=== PATIENT | male | born 1955 | race Caucasian/White ===

== ENCOUNTER → 2016-10-15 | Outpatient (REF) | payer BC, OTHER ==
[~2016-10-15] MED LIST: /TAMS4CA PO; ADULCHW2 PO; ASPI1TAB PO; ASPI81TA45 PO; ATOR40TA PO; AUGM875T27 PO; B-12100T2 PO; BACT800T5 PO; CALC1TAB31 PO; CALC250T8 PO; CALC750T PO; CALCCAP PO; CINN500C9 PO; CLAR10CA3 PO; CLOT1CRE71 TOP; COLA50CA3 PO; CRAN500C5 PO; CRES20TA PO; D 50CAP PO; DOXY100T16 PO; DOXY75CA3 PO; ENAL10TA2 PO; FERR324T12 PO; FINA5TAB2 PO; FLUT50SP; FLUTISP; FURO40TA2 PO; GEMF600T PO; GLUC1TAB PO; GLUC500C98 PO; GLUC500T53 PO; KLOR1TAB69 PO; LASI40TA PO; LEVO175T PO; LEVO175T2 PO; LIPI20TA PO; LISI2.5T3 PO; LORA10TA2 PO; METO-346 PO; METO50TA2 PO; MULTCHW13 PO; MULTLIQ7 PO; MULTTAB35 PO; NITR4TASL SL; NITROQUICK SL; OMEG12006 PO; PANT40TA2 PO; PERCOCET PO; PLAV75TA38 PO; POTA10CA PO; PRAD150C PO; PRAV20TA2 PO; PROSCAR PO; SILV1CRE19 TOP; TAMS0.4C2 PO; VITA100T20 PO; VITA500T53 PO; [UNRECOGNIZED DRUG - CODE] PO; vantin PO
== END ==
LOC: M SMT 16:48
PROVIDERS: ATTEND Nurse Practitioner Women's Health
DX: Z87.448 Personal history of other diseases of urinary system (principal)

== ENCOUNTER → 2017-01-07 | Outpatient (REF) | payer BC, OTHER | LOC: M SMT 13:04 | PROVIDERS: ATTEND Nurse Practitioner Family | DX: N39.0 Urinary tract infection, site not specified (principal) ==

== ENCOUNTER → 2017-02-25 | Day surgery (SDC) | payer BC, OTHER ==
[~2017-02-25] VITALS: Ht 190.5 cm; Wt 181.4 kg
[~2017-02-25] MED LIST changes: +AMIO200T37 PO; +ASPIRIN 81 MG CHEW TABLET As Ordered ONE; +ASPIRIN 81 MG CHEW TABLET PO ONE; +CRAN500C2 PO; +DIGO0.127 PO; +FISH1200 PO; +FLOM5CAP PO; +FLON1SPR; +LIDOCAINE 2% INJ 100 MG/5 ML SDV (FOR ANES.) As Ordered ONE; +LR 1,000 ML IV SCH; +METO75TA PO; +MIDAZOLAM INJ 2 MG/2 ML VIAL (J2250) As Ordered ONE; +ONDANSETRON 4MG/2ML VIAL (J2405) As Ordered ONE; +ONDANSETRON 4MG/2ML VIAL (J2405) IV PRN; +PERCOCET 5MG/325MG TAB PO PRN; +PROPOFOL 200 MG/20 ML VIAL As Ordered ONE; +ROCURONIUM BROMIDE 50 MG/5 ML VIAL As Ordered ONE; +SPIR25TA2 PO; +SUCCINYLCHOLINE 100 MG/5 ML SYRINGE (J0330) As Ordered ONE; +dexameTHASONE 4 MG/ML 1ML VIAL (J1100) As Ordered ONE; +ePHEDrine SULFATE 25 MG/5 ML(5MG/ML) SYRINGE As Ordered ONE; +fentaNYL 100 MCG/2 ML INJECTION (J3010) As Ordered ONE; +fentaNYL 100 MCG/2 ML INJECTION (J3010) IV PRN
[2017-02-25 14:30] VITALS: BP 140/67
--- NOTE | 2017-02-26 08:39 | RO ---
DATE OF PROCEDURE: 02/25/2017 PREOPERATIVE DIAGNOSIS: Lower urinary tract symptoms. POSTOPERATIVE DIAGNOSIS: Urethral meatus stenosis plus mild benign prostatic hyperplasia. PROCEDURE: Rigid cystoscopy plus urethral dilatation SURGEON: Rufus Abdalla MD NIGHT PATROL INSPECTOR: None. ANESTHESIA: General. COMPLICATIONS: None. ESTIMATED BLOOD LOSS: N/A. HISTORY OF PRESENT ILLNESS: This is a 61-year-old male patient that has severe lower urinary tract symptoms. The patient has morbid obesity. The patient has consented for a rigid cystoscopy under general anesthesia. DESCRIPTION OF PROCEDURE: With the patient under general anesthesia in supine modified low lithotomy position, after prepping and draping the area of concern which included the entire genitalia and abdomen, we started by introducing a #21 Thai cystoscope with a 30 degree lens. The urethral meatus was very tight and for that reason we could not pass the cystoscope. We then proceeded to dilate the urethra with [place] sounds. After dilating the urethra with Esther sounds to 30 Charriere, we passed the cystoscope very easily. The penile urethra, bulbar urethra and membranous urethra were totally normal and the prostatic urethra had lateral lobes touching, no middle lobe. You could see the verumontanum also without any abnormalities. The bladder was seen and there was no diverticulum and there were no trabeculations. Both ureteral orifices were secreting clear urine. We did a formal cystoscopy with a 70 degree and 30 degree. There was no tumors, stones or foreign objects. We then proceeded to empty the bladder and then did a retrograde cystoscopy by removing the cystoscope. There were no lesions in the urethra. PLAN: The patient will actively go home today. He will followup with [facility] urology center in about three weeks. The patient has a urethral meatus stenosis and a mild BPH. We can treat him with medical therapy only and be sure that his meatal stenosis does not recur. In general, the surgery procedure was a urethral dilatation plus rigid cystoscopy. ANAYA
== END ==
LOC: M SDC 09:23
PROVIDERS: ATTEND Urology
DX: N35.9 Urethral stricture, unspecified (principal); N40.1 Benign prostatic hyperplasia with lower urinary tract symptoms; E66.01 Morbid (severe) obesity due to excess calories; I10 Essential (primary) hypertension; I50.42 Chronic combined systolic (congestive) and diastolic (congestive) heart failure; I25.10 Atherosclerotic heart disease of native coronary artery without angina pectoris; Z95.5 Presence of coronary angioplasty implant and graft; I48.91 Unspecified atrial fibrillation; I25.2 Old myocardial infarction; G47.33 Obstructive sleep apnea (adult) (pediatric); E78.5 Hyperlipidemia, unspecified; E11.9 Type 2 diabetes mellitus without complications; E03.9 Hypothyroidism, unspecified; Z95.0 Presence of cardiac pacemaker; Z79.899 Other long term (current) drug therapy; Z79.01 Long term (current) use of anticoagulants; Z79.82 Long term (current) use of aspirin; Z79.02 Long term (current) use of antithrombotics/antiplatelets; Z88.8 Allergy status to other drugs, medicaments and biological substances; Z98.84 Bariatric surgery status; Z87.891 Personal history of nicotine dependence
CPT/HCPCS: 36415; 52281; 86850; 86900; 86901; J0330; J0690; J1100; J2250; J2405; J3010

== ENCOUNTER → 2017-03-04 | Outpatient (REF) | payer BC, OTHER ==
[~2017-03-04] MED LIST changes: -ASPIRIN 81 MG CHEW TABLET As Ordered ONE; -ASPIRIN 81 MG CHEW TABLET PO ONE; -LIDOCAINE 2% INJ 100 MG/5 ML SDV (FOR ANES.) As Ordered ONE; -LR 1,000 ML IV SCH; -MIDAZOLAM INJ 2 MG/2 ML VIAL (J2250) As Ordered ONE; -ONDANSETRON 4MG/2ML VIAL (J2405) As Ordered ONE; -ONDANSETRON 4MG/2ML VIAL (J2405) IV PRN; -PERCOCET 5MG/325MG TAB PO PRN; -PROPOFOL 200 MG/20 ML VIAL As Ordered ONE; -ROCURONIUM BROMIDE 50 MG/5 ML VIAL As Ordered ONE; -SUCCINYLCHOLINE 100 MG/5 ML SYRINGE (J0330) As Ordered ONE; -dexameTHASONE 4 MG/ML 1ML VIAL (J1100) As Ordered ONE; -ePHEDrine SULFATE 25 MG/5 ML(5MG/ML) SYRINGE As Ordered ONE; -fentaNYL 100 MCG/2 ML INJECTION (J3010) As Ordered ONE; -fentaNYL 100 MCG/2 ML INJECTION (J3010) IV PRN
== END ==
LOC: M SMT 13:18
PROVIDERS: ATTEND Nurse Practitioner Women's Health
DX: N35.9 Urethral stricture, unspecified (principal)

== ENCOUNTER 2017-04-20 04:08 | Inpatient (IN) | payer BC, OTHER ==
[~2017-04-20] VITALS: Ht 190.5 cm; Wt 193.5 kg
[~2017-04-20 04:08] MED LIST changes: +CALC1TAB11 PO; -CALC250T8 PO; +METO50TA7 PO; -MULTCHW13 PO; +MULTCHW14 PO; +PLAV1TAB2 PO; -PLAV75TA38 PO; -SILV1CRE19 TOP; +SILV1CRE60 TOP
[2017-04-20] MEDS ORDERED: ACETAMINOPHEN 325 MG TAB PO ONE (07:00)
[2017-04-20] MEDS ORDERED: NS 1,000 ML IV ONE (07:00)
[2017-04-20] MEDS ORDERED: CEFTAROLINE FOSAMIL 600 MG in D5W MINI-BAG PLUS 50 ML IV ONE (07:00)
[2017-04-20 07:38] LABS: ADD MANUAL DIFFER YES; MEAN CORPUSCULAR HEMOGLOBIN 30.8 pg (27.0-33.0); MEAN CORPUSCULAR HGB CONC 34.5 g/dl (32.0-36.5); MEAN CORPUSCULAR VOLUME 89.4 fl (80.0-96.0); PLATELET COUNT, AUTOMATED 185 k/mm3 (150-450); RED CELL DISTRIBUTION WIDTH 13.6 % (11.5-14.5); WHITE BLOOD COUNT 27.9 K/mm3 (4.0-10.0)
--- NOTE | 2017-04-20 07:49 | REP ---
Right lower extremity deep vein duplex ultrasound: The deep veins demonstrate normal compression, normal Doppler color flow and normal Doppler waveforms with respiration augmentation at multiple levels from the popliteal vein to the common femoral vein. Impression: There is no deep vein thrombus. Signed by Minesh Garcia MD 04/20/2017 07:41 A
[2017-04-20 08:04] LABS: ANISOCYTOSIS 1+; BANDS 15 % (< 11)
[2017-04-20 08:06] LABS: ALBUMIN 3.6 GM/DL (3.2-5.2); ALBUMIN/GLOBULIN RATIO 1.24 (1.00-1.93); ALKALINE PHOSPHATASE 73 U/L (45-117); ALT/SGPT 42 U/L (12-78); ANION GAP 8 MEQ/L (8-16); AST/SGOT 29 U/L (15-37); BILIRUBIN,DIRECT 0.3 MG/DL (0.0-0.2); BILIRUBIN,TOTAL 0.9 MG/DL (0.2-1.0); BLOOD UREA NITROGEN 22 MG/DL (7-18); CALCIUM LEVEL 8.7 MG/DL (8.8-10.2); CARBON DIOXIDE LEVEL 25 MEQ/L (21-32); CHLORIDE LEVEL 101 MEQ/L (98-107); CREATININE FOR GFR 1.12 MG/DL (0.70-1.30); DIGOXIN LEVEL 0.7 NG/ML (0.5-2.0); GLOMERULAR FILTRATION RATE > 60.0 (>49); GLUCOSE, FASTING 118 MG/DL (80-110); POTASSIUM SERUM 3.8 MEQ/L (3.5-5.1); SODIUM LEVEL 134 MEQ/L (136-145); TOTAL PROTEIN 6.5 GM/DL (6.4-8.2)
[2017-04-20] MEDS: NS 1,000 ML IV SCH (08:33)
[2017-04-20] MEDS ORDERED: PERCOCET 5MG/325MG TAB PO PRN (08:45)
[2017-04-20] MEDS ORDERED: ONDANSETRON 4 MG TAB (S0181) PO PRN (08:45)
[2017-04-20] MEDS ORDERED: ONDANSETRON 4MG/2ML VIAL (J2405) IV PRN (08:45)
[2017-04-20] MEDS ORDERED: D 501TAB PO (09:02)
[2017-04-20] MEDS ORDERED: DIGO0.12 PO (09:21)
[2017-04-20] MEDS ORDERED: DOXY-278 PO (09:24)
[2017-04-20] MEDS ORDERED: BECA1GEL TOP (09:34)
[2017-04-20] MEDS: ACETAMINOPHEN TAB 650MG DOSE (2X325MG) PO PRN ×2 (12:07→16:22)
[2017-04-20 14:15] VITALS: BP 129/59
--- NOTE | 2017-04-20 14:28 | PHACANCOPD ---
PHARMACY VANCOMYCIN DOSING Pt Demographics Demographics Patient Age:62 , Weight:181.820 , Gender: male Adjusted Body Weight Date: 04/20/17, Adjusted Body Weight: Kg Events Past 24 Hours Events Past 24 Hours: YES: Fever, Elevation in WBC, Pending Diagnostics Vancomycin Vancomycin indication: CELLULITIS Vancomycin Target Ranges: 10-20 mcg/ml Vancomycin Load Y/N: Yes Load Dose Date Time Vancomycin Load Dose: 2G Date: 04/20/17 Time: 2000 Vancomycin Dose Date: 04/20/17. Current Vancomycin Dose: Intermittent Dosing?: No Labs Labs Item Value Date Time White Blood Count 27.9 K/mm3 H 04/20/17 0717 Band Neutrophils 15 % H 04/20/17 0717 Creatinine 1.12 MG/DL 04/20/17 0717 Lactic Acid Level 2.1 MMOL/L *H 04/20/17 0717 Lactic Acid Followup at 4 Hours 2.4 MMOL/L *H 04/20/17 1210 C-Reactive Protein, Quantitative 2.10 MG/DL H 04/20/17 0717 Micro Microbiology 04/20/17 Blood Culture, Received Pending 04/20/17 Blood Culture, Received Pending 04/20/17 Urine Culture, Received Pending Creatinine Clearance Date:04/20/17. Estimated Creatinine Clearance: [~79.6ml/min]. Pending Labs Vancomycin trough scheduled 04/22/17 @ 1100 Assessment and Plan Maintaining Current Dose?: Yes Reason for dose change: No Dose Change Pharmacist Note Pharmacist Note Date: 04/20/17. Pharmacist note: Day #1 empiric zosyn/vancomycin tx initiated with a 2g loading dose followed by a maintenance regimen of 1g IV Q8H for the treatment of a right leg cellulitis - aiming for a goal trough of 10-20mcg/ml. WBC, bands, CRP, and temperature are all currently elevated. The patient has a hx of cellulitis, and had a left foot culture which grew proteus sensitive to zosyn back in December 2016. No PMH of MRSA, but the patient does have a PMH of vanco use here at [facility] back in May of 2014. Blood and urine cultures are currently pending. A vancomycin trough has been scheduled for 04/22/17 @ 1100. We will continue to monitor and make adjustments if needed. JADIEL COLLINS [facility] Apr 20, 2017 14:28
--- NOTE | 2017-04-20 15:16 | HPEPDOC ---
Medical History and Physical Date of Admission Apr 20, 2017 at 08:32 History and Physical HISTORY AND PHYSICAL Date of admission: 04/20/2017 PCP: Dr. 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 He states that he has had trouble with repeat episodes of lower extremity cellulitis. He states that he has been on oral doxycycline for approximately the last 10-12 days for left lower extremity cellulitis. He states that he feels like his left lower extremity has pretty much resolved, and he has not even finished the course yet of doxycycline that he was prescribed. However, he states that last night, he began to feel chills, and this morning, when he woke up, his right lower extremity was red. He states that he has a small dog that often scratches his legs when it comes up to greet him. He states that this all came on very quickly. 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 He states he only drinks an occasional alcoholic drink, usually around the holidays. He denies any current or past drug use. Allergies: No known drug allergies Review of systems: General: Positive for fever and chills Eyes: Negative for vision changes and ocular discharge ENT: Negative for sore throat and nose bleed Cardiovascular: Negative for chest pain and palpitations Respiratory: Negative for cough and shortness of breath GI: Negative for nausea, vomiting, diarrhea, constipation Musculoskeletal: Negative for neck and back pain Skin: Positive for erythema on the right lower extremity on the medial aspect of the knee and extending both distally and proximally Neuro: Positive for headache, dizziness, as well as chronic bilateral numbness and tingling of his feet Psych: Negative for depression and suicidal ideation Endocrine: Negative for polyuria : Negative for dysuria Heme: Positive for chronic bruising. Negative for bleeding Home meds: See below Physical exam: Vital signs: Vital Sign - Last 24 Hours 04/20/17 04/20/17 04/20/17 04/20/17 04:37 05:32 06:39 07:53 Temp 102.0 103.0 102.0 Pulse 97 Resp 20 B/P (MAP) 157/68 (97) Pulse Ox 93 O2 Delivery Room Air 04/20/17 04/20/17 04/20/17 04/20/17 10:10 10:42 12:06 14:09 Temp 99.6 99.5 99.8 Pulse 69 75 Resp 18 18 B/P (MAP) 108/57 (74) 96/54 (68) Pulse Ox 99 98 O2 Delivery Room Air Room Air 04/20/17 14:15 Temp 99.8 Pulse 74 Resp 20 B/P (MAP) 129/59 (82) Pulse Ox 96 O2 Delivery Room Air Gen.: awake, alert, no acute distress, obese Eyes: Extraocular movements intact, normal sclera ENT: Moist mucous membranes Cardiovascular: RRR, no murmurs rubs or gallops Lungs: clear to auscultation bilaterally, no rales, rhonchi, or wheeze Abdomen: Soft, NT/ND, normal BS Musculoskeletal: normal range of motion Extremities: pedal pulses intact; no erythema of LLE; RLE has erythema and swelling on medial aspect of knee joint, extending both distally and proximally Neuro: alert and oriented 3, normal speech, no focal deficits Psych: Normal mood with congruent affect Labs and radiology: See below BUN 22, creatinine 1.12 lactate 2.1 WBC 27.9 CRP 2.1 Blood cultures pending Right lower extremity Doppler shows no evidence of DVT Assessment and plan: 62-year-old male with recurrent cellulitis of bilateral lower extremities, chronic venous stasis the bilateral lower extremities, chronic atrial fibrillation, coronary artery disease with history of ND status post CABG and PCI, hyperlipidemia, morbid obesity status post gastric bypass surgery, LENA on CPAP, hypothyroidism, BPH, 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 1. Right lower extremity cellulitis. Patient is febrile with an elevated white count and significant exam findings. He has received Teflaro in the emergency department, and we'll continue him on vancomycin and Zosyn. Blood cultures are already pending. His initial lactate is elevated, and we will repeat this. We will place him on some IV fluids, however, given his significant heart failure, we will be quite gentle. Stop home doxycycline 2. Acute kidney injury: The patient's BUN and creatinine are elevated, I suspect that this is secondary to his infection. We will hold his home Lasix, LAZ inhibitor, spironolactone, we'll start him on very gentle IV fluids. We'll continue to monitor his creatinine. 3. Chronic A. fib: Patient is currently rate controlled. We'll continue his home amiodarone, digoxin, beta esau, and Pradaxa. 4. Coronary artery disease with history of ND status post CABG and PCI, hyperlipidemia: The patient currently denies any chest pain. Continue home beta esau, aspirin, statin. 5. Hypothyroidism: Continue home Synthroid. 6. BPH: Continue home Flomax and Proscar. 7. Mixed chronic CHF status post AICD placement: Patient has a history of an ejection fraction of 35 percent and is now status post defibrillator. He also has a history of diastolic dysfunction, as well as chronic right-sided heart failure. Given his infection and AK I, we are currently holding his home Lasix, LAZ inhibitor, spironolactone. He is also on some very gentle IV fluids, which we'll have to monitor closely. We will also continue him on the beta esau. He is currently euvolemic. DVT prophylaxis: Pradaxa Dispo: admit as an inpatient to the service of Dr. Eliane Bah; Dr. Valdivia will begin following the patient at 7 AM tomorrow morning CODE STATUS: Full Code Vital Signs Vital Signs Date Time Temp Pulse Resp B/P (MAP) Pulse Ox O2 Delivery O2 Flow Rate FiO2 04/20/17 14:15 99.8 74 20 129/59 (82) 96 Room Air Laboratory Data Labs 24H Laboratory Tests 2 04/20/17 07:17: Neutrophils 78H, Band Neutrophils 15H, Lymphocytes (Manual) 4L, Monocytes ( Manual) 3, Platelet Estimate NORMAL, Anisocytosis 1+, Anion Gap 8, Glomerular Filtration Rate > 60.0, Lactic Acid Level 2.1*H, Calcium Level 8.7L, Aspartate Amino Transf (AST/SGOT) 29, Alanine Aminotransferase (ALT/SGPT) 42, Alkaline Phosphatase 73, Total Bilirubin 0.9, Direct Bilirubin 0.3H, C-Reactive Protein, Quantitative 2.10H, Total Protein 6.5, Albumin 3.6, Albumin/Globulin Ratio 1.24 , Digoxin Level 0.7 04/20/17 09:52: Urine Appearance CLEAR, Urine Color DEION, Urine pH 5.0, Urine Specific Lohn 1.027, Urine Protein 1+H, Urine Glucose (UA) NEGATIVE, Urine Ketones TRACEH, Urine Urobilinogen 0.2, Urine Bilirubin NEGATIVE, Urine Leukocyte Esterase NEGATIVE, Urine Blood NEGATIVE, Urine Nitrite NEGATIVE, Urine WBC (Auto) 3, Urine RBC (Auto) 2, Urine Hyaline Casts (Auto) 0, Urine Bacteria (Auto) NEGATIVE , Urine Squamous Epithelial Cells 1, Urine Mucus (Auto) SMALL, Urine Sperm (Auto ) 04/20/17 12:10: Lactic Acid Followup at 4 Hours 2.4*H CBC/BMP Laboratory Tests 04/20/17 07:17 Red Blood Count 4.31, Mean Corpuscular Volume 89.4, Mean Corpuscular Hemoglobin 30.8, Mean Corpuscular Hemoglobin Concent 34.5, Red Cell Distribution Width 13.6 Microbiology Microbiology 04/20/17 Blood Culture, Received Pending 04/20/17 Blood Culture, Received Pending 04/20/17 Urine Culture, Received Pending Home Medications Scheduled (Glucosamine Chondroitin C 500-400 mg) 1 Cap Cap, 2 CAP PO DAILY (Adult Gummy) 1 Chw Chw, 2 CHW PO DAILY (Calcium Citrate + D3 250-200 mg-Unit) 1 Tab Tab, 2 TAB PO QAM (Flonase Allergy Relief) 50 Mcg/Act Spr, 50 MCG NA DAILY (Fish Oil 1200 mg) 1 Cap Cap, 2 CAP PO DAILY (Regranex) 0.01 % Gel, 1 DOSE TOP QHS APPLY TO LEFT FOOT Amiodarone HCl (Amiodarone Hydrochloride) 200 Mg Tab, 200 MG PO BID Aspirin (Aspirin 81) 81 Mg Tab, 81 MG PO QHS Cholecalciferol (D 5000) 5,000 Unit Tab, 5,000 UNIT PO DAILY Cranberry Extract (Cranberry) 500 Mg Cap, 500 MG PO DAILY Cyanocobalamin (B-12) 100 Mcg Tab, 100 MCG PO DAILY Dabigatran Etexilate (Pradaxa) 150 Mg Cap, 150 MG PO BID Digoxin (Digoxin) 0.125 Mg Tab, 0.125 MG PO DAILY Doxycycline Hyclate (Doxycycline) 100 Mg Cap, 100 MG PO BID Ferrous Fumarate (Ferrous Fumarate 324) 324 Mg Tab, 324 MG PO QPM Finasteride (Finasteride) 5 Mg Tab, 5 MG PO DAILY Furosemide (Furosemide) 40 Mg Tab, 40 MG PO DAILY Levothyroxine Sodium (Synthroid) 175 Mcg Tab, 175 MCG PO QAM Lisinopril (Lisinopril) 2.5 Mg Tab, 2.5 MG PO QHS Loratadine (Loratadine) 10 Mg Tab, 10 MG PO QHS Metoprolol Tartrate (Metoprolol Tartrate) 75 Mg Tab, 75 MG PO BID Pantoprazole Sodium (Pantoprazole Sodium) 40 Mg Tab, 40 MG PO QHS Potassium Chloride (Klor-Con M10) 10 Meq Tabcr, 10 MEQ PO QPM Rosuvastatin Calcium (Crestor) 20 Mg Tab, 20 MG PO QHS Spironolactone (Spironolactone) 25 Mg Tab, 12.5 MG PO DAILY Tamsulosin Hydrochloride (Flomax) 0.4 Mg Cap, 0.4 MG PO DAILY Scheduled PRN Nitroglycerin (Nitrostat) 0.4 Mg Subl, 0.4 MG SL Q5MP PRN for CHEST PAIN Allergies Coded Allergies: No Known Allergies (Unverified , 02/25/17) ELIANE BAH Apr 20, 2017 15:16
[2017-04-20] MEDS: LEVOTHYROXINE 25MCG TABLET (0.025MG) PO SCH (15:34)
[2017-04-20] MEDS: LEVOTHYROXINE 150MCG TABLET (0.15MG) PO SCH (15:34)
[2017-04-20] MEDS: FINASTERIDE 5 MG TAB PO SCH (15:34)
[2017-04-20] MEDS: TAMSULOSIN 0.4 MG CAP PO SCH (15:36)
[2017-04-20] MEDS: PIPERACILLIN/TAZOBACTAM SOD 3.375 GM in D5W MINI-BAG PLUS 50 ML IV SCH (18:41)
[2017-04-20] MEDS: LORATADINE 10 MG TAB PO SCH (20:13)
[2017-04-20] MEDS: ASPIRIN 81 MG ENTERIC TAB PO SCH (20:13)
[2017-04-20] MEDS: ROSUVASTATIN 10 MG TAB (CRESTOR) PO SCH (20:13)
[2017-04-20] MEDS: VANCOMYCIN HCL 1,000 MG, VIAL MATE ADAPTER 1 EACH in D5W 250 ML IV SCH (20:13)
[2017-04-20] MEDS: PANTOPRAZOLE 40MG TAB (PROTONIX) PO SCH (20:14)
[2017-04-20] MEDS: POTASSIUM CHLORIDE 10 MEQ SR TABLET PO SCH (20:14)
[2017-04-20] MEDS: METOPROLOL TART 25 MG TABLET PO SCH (20:14)
[2017-04-20] MEDS: AMIODARONE 200 MG TAB (PACERONE) PO SCH (20:14)
[2017-04-20] MEDS ORDERED: VANCOMYCIN HCL 1,000 MG, VIAL MATE ADAPTER 1 EACH in D5W 250 ML IV ONE (21:00)
[2017-04-20] MEDS: DABIGATRAN ETEXILATE 75 MG CAP (PRADAXA) PO SCH (21:23)
[2017-04-20 22:00] VITALS: BP 143/64
[2017-04-21] MEDS ORDERED: **UNRESOLVED NON-FORMULARY MED ORDER XX SCH (00:01)
[2017-04-21] MEDS: PIPERACILLIN/TAZOBACTAM SOD 3.375 GM in D5W MINI-BAG PLUS 50 ML IV SCH ×4 (01:18→19:04)
[2017-04-21] MEDS: NS 1,000 ML IV SCH (01:18)
[2017-04-21] MEDS: VANCOMYCIN HCL 1,000 MG, VIAL MATE ADAPTER 1 EACH in D5W 250 ML IV SCH ×3 (04:08→20:21)
[2017-04-21 06:00] VITALS: BP 120/59
[2017-04-21] MEDS: LEVOTHYROXINE 25MCG TABLET (0.025MG) PO SCH (06:10)
[2017-04-21] MEDS: LEVOTHYROXINE 150MCG TABLET (0.15MG) PO SCH (06:10)
[2017-04-21 06:43] LABS: BASO % 0.2 % (0.0-1.0); EOS # 0.2 K/mm3 (0.0-0.50); EOS % 1.6 % (0.0-3.0); LARGE UNSTAINED CELL # 0.2 K/mm3 (0.0-0.4); LARGE UNSTAINED CELL % 1.3 % (0.0-4.0); LYMPH # 1.3 K/mm3 (1.5-4.5); LYMPH % 7.7 % (24.0-44.0); MEAN CORPUSCULAR HEMOGLOBIN 30.8 pg (27.0-33.0); MEAN CORPUSCULAR HGB CONC 33.9 g/dl (32.0-36.5); MEAN CORPUSCULAR VOLUME 90.9 fl (80.0-96.0); MONO # 0.8 K/mm3 (0.0-0.8); MONO % 5.5 % (0.0-5.0); NEUTROPHILS # 12.3 K/mm3 (1.8-7.7); NEUTROPHILS % 83.7 % (36.0-66.0); PLATELET COUNT, AUTOMATED 146 k/mm3 (150-450); RED CELL DISTRIBUTION WIDTH 13.9 % (11.5-14.5); WHITE BLOOD COUNT 14.7 K/mm3 (4.0-10.0)
[2017-04-21 07:38] LABS: ANION GAP 8 MEQ/L (8-16); BLOOD UREA NITROGEN 16 MG/DL (7-18); CALCIUM LEVEL 8.4 MG/DL (8.8-10.2); CARBON DIOXIDE LEVEL 27 MEQ/L (21-32); CHLORIDE LEVEL 103 MEQ/L (98-107); CREATININE FOR GFR 0.99 MG/DL (0.70-1.30); GLOMERULAR FILTRATION RATE > 60.0 (>49); GLUCOSE, FASTING 113 MG/DL (80-110); POTASSIUM SERUM 3.7 MEQ/L (3.5-5.1); SODIUM LEVEL 138 MEQ/L (136-145)
[2017-04-21] MEDS: AMIODARONE 200 MG TAB (PACERONE) PO SCH ×2 (08:30→20:30)
[2017-04-21] MEDS: DABIGATRAN ETEXILATE 75 MG CAP (PRADAXA) PO SCH ×2 (08:30→20:19)
[2017-04-21] MEDS: FLUTICASONE PROP 0.05% NASAL SPRAY 16 GM (FLONASE) SCH (08:30)
[2017-04-21] MEDS: TAMSULOSIN 0.4 MG CAP PO SCH (08:30)
[2017-04-21] MEDS: FINASTERIDE 5 MG TAB PO SCH (08:30)
[2017-04-21] MEDS: DIGOXIN 0.125 MG TAB PO SCH (08:31)
[2017-04-21] MEDS: METOPROLOL TART 25 MG TABLET PO SCH ×2 (08:32→20:30)
[2017-04-21] MEDS ORDERED: REGRANEX 0.01% TOP SCH (09:00)
[2017-04-21] MEDS: ACETAMINOPHEN TAB 650MG DOSE (2X325MG) PO PRN (11:53)
[2017-04-21 14:00] VITALS: BP 108/59
--- NOTE | 2017-04-21 16:29 | IPNPDOC ---
Date Seen The patient was seen on 04/21/17. Progress Note SUBJECTIVE: Patient tells me that he is feeling better today he is in less pain he does not have any fevers chills he has more energy than previous days. OBJECTIVE PHYSICAL EXAMINATION: VITAL SIGNS: Please see below. GENERAL: Large morbidly obese man sitting in a recliner he appears comfortable and does not appear to be in any acute distress HEENT: Pupils equally round reactive to light he has moist pedis membranes elevation CVP CARDIOVASCULAR: 1 S2 regular. RESPIRATORY: Respiratory exam is clear. ABDOMINAL: Grossly obese bowel sounds present abdomen soft EXTREMITIES: Chronic venous stasis changes bilaterally area of erythema extending from his right popliteal region posteriorly up his thigh it is tender and blanching well demarcated LABORATORY DATA: Please see below. MICROBIOLOGY: Please see below. IMAGING: Duplex of the lower extremity: There is no deep venous thrombus DVT prophylaxis ordered?: Pradaxa ASSESSMENT AND PLAN: This is a 62-year-old man with recurrent cellulitis. 1. Right lower extremity cellulitis. Leukocytosis is resolving fever curve is trending down and his MAXIMUM TEMPERATURE yesterday morning was 103. Clinically the patient is feeling better he has 2 blood cultures which are currently positive we'll continue with the current antibiotic therapy and follow-up speciation and sensitivities. His lactic acidosis has resolved. It is unusual for him to develop an infection while taking doxycycline. 2. Abnormal creatinine: home Lasix, LAZ inhibitor, spironolactone, currently on hold his creatinine today. 3 back to its baseline we'll monitor and restart medications as appropriate. Patient is tolerating by mouth well we'll discontinue IV fluids 3. Chronic A. fib: Patient is currently rate controlled with amiodarone digoxin and beta esau he is anticoagulated with Pradaxa. 4. Coronary artery disease: Stable, the patient is on an aspirin and beta esau and statin 5. Hypothyroidism: Continue home Synthroid. 6. BPH: Continue home Flomax and Proscar. 7. Mixed chronic CHF status post AICD placement: Patient has a history of an ejection fraction of 35 percent and status post defibrillator. He also has a history of diastolic dysfunction, as well as chronic right-sided heart failure. Many of his antihypertensives and CHF medications are on hold at this time for that likely be restarted tomorrow 8. Obstructive sleep apnea: Continue to use home CPAP 9. Seasonal allergies: Continue Claritin DISPOSITION: Suspect he may be able to be discharged within the next 72 hours follow-up blood cultures. VS, I&O, 24H, Fishbone Vital Signs/I&O Vital Signs Date Time Temp Pulse Resp B/P (MAP) Pulse Ox O2 Delivery O2 Flow Rate FiO2 04/21/17 14:00 97.6 70 18 108/59 (75) 95 Room Air I&O- Last 24 Hours up to 6 AM 04/21/17 06:00 Intake Total 3080 ml Output Total 275 ml Balance 2805 ml Laboratory Data 24H LABS Laboratory Tests 2 04/20/17 20:01: Lactic Acid Level 1.6 04/21/17 06:33: White Blood Count 14.7H, Red Blood Count 3.91L, Hemoglobin 12.0L, Hematocrit 35.5L, Mean Corpuscular Volume 90.9, Mean Corpuscular Hemoglobin 30.8, Mean Corpuscular Hemoglobin Concent 33.9, Red Cell Distribution Width 13.9, Platelet Count 146L, Neutrophils (%) (Auto) 83.7H, Lymphocytes (%) (Auto) 7.7L, Monocytes (%) (Auto) 5.5H, Eosinophils (%) (Auto) 1.6, Basophils (%) (Auto) 0.2 , Neutrophils # (Auto) 12.3H, Lymphocytes # (Auto) 1.3L, Monocytes # (Auto) 0.8 , Eosinophils # (Auto) 0.2, Basophils # (Auto) 0.0, Large Unclassified Cells % 1.3, Large Unclassified Cells # 0.2, Anion Gap 8, Glomerular Filtration Rate > 60.0, Blood Urea Nitrogen 16, Creatinine 0.99, Sodium Level 138, Potassium Level 3.7, Chloride Level 103, Carbon Dioxide Level 27, Calcium Level 8.4L, Magnesium Level 2.0, C-Reactive Protein, Quantitative 18.50H CBC/BMP Laboratory Tests 04/21/17 06:33 Red Blood Count 3.91 L, Mean Corpuscular Volume 90.9, Mean Corpuscular Hemoglobin 30.8, Mean Corpuscular Hemoglobin Concent 33.9, Red Cell Distribution Width 13.9, Neutrophils (%) (Auto) 83.7 H, Lymphocytes (%) (Auto) 7.7 L, Monocytes (%) (Auto) 5.5 H, Eosinophils (%) (Auto) 1.6, Basophils (%) ( Auto) 0.2, Neutrophils # (Auto) 12.3 H, Lymphocytes # (Auto) 1.3 L, Monocytes # (Auto) 0.8, Eosinophils # (Auto) 0.2, Basophils # (Auto) 0.0, Calcium Level 8.4 L Microbiology Microbiology 04/20/17 Blood Culture - Preliminary, Resulted Strep Agalactiae Group B 04/20/17 Blood Culture - Preliminary, Resulted Strep Agalactiae Group B 04/20/17 Urine Culture - Final, Complete LUIS ARDON MD Apr 21, 2017 16:29
[2017-04-21 20:00] VITALS: BP 143/65
[2017-04-21] MEDS: LORATADINE 10 MG TAB PO SCH (20:18)
[2017-04-21] MEDS: PANTOPRAZOLE 40MG TAB (PROTONIX) PO SCH (20:19)
[2017-04-21] MEDS: POTASSIUM CHLORIDE 10 MEQ SR TABLET PO SCH (20:19)
[2017-04-21] MEDS: ASPIRIN 81 MG ENTERIC TAB PO SCH (20:19)
[2017-04-21] MEDS: ROSUVASTATIN 10 MG TAB (CRESTOR) PO SCH (20:19)
[2017-04-21] MEDS ORDERED: REGRANEX 0.01% TOP ONE (21:00)
[2017-04-21] MEDS ORDERED: ENTER DRUG NAME HERE (PATIENT'S OWN MED) TOP SCH (21:00)
[2017-04-21 22:00] VITALS: BP 143/65
[2017-04-22] MEDS: PIPERACILLIN/TAZOBACTAM SOD 3.375 GM in D5W MINI-BAG PLUS 50 ML IV SCH ×3 (00:41→14:15)
[2017-04-22] MEDS: VANCOMYCIN HCL 1,000 MG, VIAL MATE ADAPTER 1 EACH in D5W 250 ML IV SCH ×2 (03:50→12:21)
[2017-04-22 06:00] VITALS: BP 121/60
[2017-04-22] MEDS: LEVOTHYROXINE 25MCG TABLET (0.025MG) PO SCH (06:02)
[2017-04-22] MEDS: LEVOTHYROXINE 150MCG TABLET (0.15MG) PO SCH (06:02)
[2017-04-22 06:13] LABS: BASO % 0.2 % (0.0-1.0); EOS # 0.2 K/mm3 (0.0-0.50); EOS % 1.8 % (0.0-3.0); LARGE UNSTAINED CELL # 0.2 K/mm3 (0.0-0.4); LARGE UNSTAINED CELL % 1.9 % (0.0-4.0); LYMPH # 1.2 K/mm3 (1.5-4.5); LYMPH % 11.1 % (24.0-44.0); MEAN CORPUSCULAR HGB CONC 32.7 g/dl (32.0-36.5); MEAN CORPUSCULAR VOLUME 91.8 fl (80.0-96.0); MONO # 0.8 K/mm3 (0.0-0.8); MONO % 8.6 % (0.0-5.0); NEUTROPHILS # 6.9 K/mm3 (1.8-7.7); NEUTROPHILS % 76.4 % (36.0-66.0); PLATELET COUNT, AUTOMATED 142 k/mm3 (150-450); RED CELL DISTRIBUTION WIDTH 13.9 % (11.5-14.5); WHITE BLOOD COUNT 9.1 K/mm3 (4.0-10.0)
[2017-04-22 06:40] LABS: ANION GAP 8 MEQ/L (8-16); BLOOD UREA NITROGEN 12 MG/DL (7-18); CALCIUM LEVEL 8.3 MG/DL (8.8-10.2); CARBON DIOXIDE LEVEL 27 MEQ/L (21-32); CHLORIDE LEVEL 106 MEQ/L (98-107); CREATININE FOR GFR 0.91 MG/DL (0.70-1.30); GLOMERULAR FILTRATION RATE > 60.0 (>49); GLUCOSE, FASTING 114 MG/DL (80-110); MAGNESIUM LEVEL 2.2 MG/DL (1.8-2.4); POTASSIUM SERUM 3.8 MEQ/L (3.5-5.1); SODIUM LEVEL 141 MEQ/L (136-145)
[2017-04-22] MEDS: DABIGATRAN ETEXILATE 75 MG CAP (PRADAXA) PO SCH ×2 (08:19→21:06)
[2017-04-22] MEDS: TAMSULOSIN 0.4 MG CAP PO SCH (08:20)
[2017-04-22] MEDS: METOPROLOL TART 25 MG TABLET PO SCH ×2 (08:20→21:04)
[2017-04-22] MEDS: FINASTERIDE 5 MG TAB PO SCH (08:21)
[2017-04-22] MEDS: DIGOXIN 0.125 MG TAB PO SCH (08:21)
[2017-04-22] MEDS: AMIODARONE 200 MG TAB (PACERONE) PO SCH ×2 (08:21→21:04)
[2017-04-22] MEDS: FLUTICASONE PROP 0.05% NASAL SPRAY 16 GM (FLONASE) SCH (08:22)
[2017-04-22] MEDS ORDERED: REGRANEX 0.01% TOP SCH ×2 (09:00→09:12)
--- NOTE | 2017-04-22 13:47 | IPNPDOC ---
Date Seen The patient was seen on 04/22/17. Progress Note SUBJECTIVE: Patient tells me that he is feeling better today he is in less pain but there is still some behind his Rt knee. He does not have any fevers chills. OBJECTIVE PHYSICAL EXAMINATION: VITAL SIGNS: Please see below. GENERAL: Large morbidly obese man sitting in a recliner he appears comfortable and does not appear to be in any acute distress HEENT: Pupils equally round reactive to light he has moist pedis membranes, no elevation CVP CARDIOVASCULAR: S1 S2 regular. RESPIRATORY: Respiratory exam is clear. ABDOMINAL: Grossly obese, bowel sounds present abdomen soft EXTREMITIES: Chronic venous stasis changes bilaterally area of erythema extending from his right popliteal region posteriorly up his thigh it is tender and blanching well demarcated, less tense than previous day LABORATORY DATA: Please see below. MICROBIOLOGY: Please see below. IMAGING: Duplex of the lower extremity: There is no deep venous thrombus DVT prophylaxis ordered?: Pradaxa ASSESSMENT AND PLAN: This is a 62-year-old man with recurrent cellulitis. 1. Strep Agalactiae sepsis secondary to Right lower extremity cellulitis. Leukocytosis is resolving fever curve is trending down. Clinically the patient is feeling better he has 2 blood cultures which are currently positive we'll continue with the current antibiotic therapy and follow-up speciation and sensitivities, I suspect if his repeat cultures are negative tomorrow he may be able to be discharged home on PO Abx. His lactic acidosis has resolved. 2. Abnormal creatinine: home Lasix, LAZ inhibitor, spironolactone, currently on hold his creatinine today. 3 back to its baseline we'll monitor and restart medications as appropriate. Patient is tolerating by mouth well we'll discontinue IV fluids, restart home meds at d/c, possibly tomorrow 3. Chronic A. fib: Patient is currently rate controlled with amiodarone digoxin and beta esau he is anticoagulated with Pradaxa. 4. Coronary artery disease: Stable, the patient is on an aspirin and beta esau and statin 5. Hypothyroidism: Continue home Synthroid. 6. BPH: Continue home Flomax and Proscar. 7. Mixed chronic CHF status post AICD placement: Patient has a history of an ejection fraction of 35 percent and status post defibrillator. He also has a history of diastolic dysfunction, as well as chronic right-sided heart failure. Many of his antihypertensives and CHF medications are on hold at this time for that likely be restarted tomorrow 8. Obstructive sleep apnea: Continue to use home CPAP 9. Seasonal allergies: Continue Claritin DISPOSITION: Suspect he may be able to be discharged within the next 24 hours follow-up blood cultures. VS, I&O, 24H, [place] Vital Signs/I&O Vital Signs Date Time Temp Pulse Resp B/P (MAP) Pulse Ox O2 Delivery O2 Flow Rate FiO2 04/22/17 08:21 70 04/22/17 08:20 121/60 04/22/17 06:00 97.5 18 96 NIPPV (BIPAP/CPAP) I&O- Last 24 Hours up to 6 AM 04/22/17 06:00 Intake Total 3151 ml Output Total 2425 ml Balance 726 ml Laboratory Data 24H LABS Laboratory Tests 2 04/22/17 05:53: White Blood Count 9.1, Red Blood Count 3.76L, Hemoglobin 11.3L, Hematocrit 34.5L , Mean Corpuscular Volume 91.8, Mean Corpuscular Hemoglobin 30.0, Mean Corpuscular Hemoglobin Concent 32.7, Red Cell Distribution Width 13.9, Platelet Count 142L, Neutrophils (%) (Auto) 76.4H, Lymphocytes (%) (Auto) 11.1L, Monocytes (%) (Auto) 8.6H, Eosinophils (%) (Auto) 1.8, Basophils (%) (Auto) 0.2 , Neutrophils # (Auto) 6.9, Lymphocytes # (Auto) 1.2L, Monocytes # (Auto) 0.8, Eosinophils # (Auto) 0.2, Basophils # (Auto) 0.0, Large Unclassified Cells % 1.9 , Large Unclassified Cells # 0.2, Anion Gap 8, Glomerular Filtration Rate > 60.0 , Blood Urea Nitrogen 12, Creatinine 0.91, Sodium Level 141, Potassium Level 3.8 , Chloride Level 106, Carbon Dioxide Level 27, Calcium Level 8.3L, Magnesium Level 2.2, C-Reactive Protein, Quantitative 14.00H 04/22/17 11:09: Vancomycin Level Trough 11.2 CBC/BMP Laboratory Tests 04/22/17 05:53 Red Blood Count 3.76 L, Mean Corpuscular Volume 91.8, Mean Corpuscular Hemoglobin 30.0, Mean Corpuscular Hemoglobin Concent 32.7, Red Cell Distribution Width 13.9, Neutrophils (%) (Auto) 76.4 H, Lymphocytes (%) (Auto) 11.1 L, Monocytes (%) (Auto) 8.6 H, Eosinophils (%) (Auto) 1.8, Basophils (%) ( Auto) 0.2, Neutrophils # (Auto) 6.9, Lymphocytes # (Auto) 1.2 L, Monocytes # ( Auto) 0.8, Eosinophils # (Auto) 0.2, Basophils # (Auto) 0.0, Calcium Level 8.3 L Microbiology Microbiology 04/21/17 Blood Culture, Received Pending 04/20/17 Blood Culture - Final, Complete Strep Agalactiae Group B 04/20/17 Blood Culture - Final, Complete Strep Agalactiae Group B 04/20/17 Urine Culture - Final, Complete LUIS ARDON MD Apr 22, 2017 13:47
[2017-04-22 14:00] VITALS: BP 127/68
[2017-04-22] MEDS: AMPICILLIN SOD 1 GM in D5W MINI-BAG PLUS 50 ML IV SCH ×2 (16:26→21:06)
[2017-04-22] MEDS: LORATADINE 10 MG TAB PO SCH (21:03)
[2017-04-22] MEDS: PANTOPRAZOLE 40MG TAB (PROTONIX) PO SCH (21:04)
[2017-04-22] MEDS: ASPIRIN 81 MG ENTERIC TAB PO SCH (21:04)
[2017-04-22] MEDS: POTASSIUM CHLORIDE 10 MEQ SR TABLET PO SCH (21:04)
[2017-04-22] MEDS: ROSUVASTATIN 10 MG TAB (CRESTOR) PO SCH (21:05)
[2017-04-22 22:00] VITALS: BP 121/62
[2017-04-23] MEDS: AMPICILLIN SOD 1 GM in D5W MINI-BAG PLUS 50 ML IV SCH ×2 (03:48→09:17)
[2017-04-23] MEDS: LEVOTHYROXINE 150MCG TABLET (0.15MG) PO SCH (05:30)
[2017-04-23] MEDS: LEVOTHYROXINE 25MCG TABLET (0.025MG) PO SCH (05:30)
[2017-04-23 06:00] VITALS: BP 125/71
[2017-04-23 06:01] LABS: BASO % 0.2 % (0.0-1.0); EOS # 0.2 K/mm3 (0.0-0.50); EOS % 2.7 % (0.0-3.0); LARGE UNSTAINED CELL # 0.2 K/mm3 (0.0-0.4); LARGE UNSTAINED CELL % 2.3 % (0.0-4.0); LYMPH # 1.3 K/mm3 (1.5-4.5); LYMPH % 14.9 % (24.0-44.0); MEAN CORPUSCULAR HEMOGLOBIN 30.2 pg (27.0-33.0); MEAN CORPUSCULAR HGB CONC 33.4 g/dl (32.0-36.5); MEAN CORPUSCULAR VOLUME 90.6 fl (80.0-96.0); MONO # 0.6 K/mm3 (0.0-0.8); NEUTROPHILS # 5.3 K/mm3 (1.8-7.7); NEUTROPHILS % 71.9 % (36.0-66.0); PLATELET COUNT, AUTOMATED 156 k/mm3 (150-450); RED CELL DISTRIBUTION WIDTH 13.7 % (11.5-14.5); WHITE BLOOD COUNT 7.4 K/mm3 (4.0-10.0)
[2017-04-23 06:29] LABS: ANION GAP 7 MEQ/L (8-16); BLOOD UREA NITROGEN 12 MG/DL (7-18); CALCIUM LEVEL 8.3 MG/DL (8.8-10.2); CARBON DIOXIDE LEVEL 27 MEQ/L (21-32); CHLORIDE LEVEL 103 MEQ/L (98-107); GLOMERULAR FILTRATION RATE > 60.0 (>49); GLUCOSE, FASTING 94 MG/DL (80-110); MAGNESIUM LEVEL 2.3 MG/DL (1.8-2.4); POTASSIUM SERUM 3.8 MEQ/L (3.5-5.1); SODIUM LEVEL 137 MEQ/L (136-145)
[2017-04-23] MEDS: TAMSULOSIN 0.4 MG CAP PO SCH (09:14)
[2017-04-23] MEDS: AMIODARONE 200 MG TAB (PACERONE) PO SCH (09:14)
[2017-04-23] MEDS: FINASTERIDE 5 MG TAB PO SCH (09:14)
[2017-04-23 09:15] VITALS: BP 125/71
[2017-04-23] MEDS: METOPROLOL TART 25 MG TABLET PO SCH (09:15)
[2017-04-23] MEDS: DABIGATRAN ETEXILATE 75 MG CAP (PRADAXA) PO SCH (09:15)
[2017-04-23] MEDS: DIGOXIN 0.125 MG TAB PO SCH (09:17)
[2017-04-23] MEDS: FLUTICASONE PROP 0.05% NASAL SPRAY 16 GM (FLONASE) SCH (09:17)
[2017-04-23] MEDS ORDERED: AMPI500C9 PO (10:36)
--- NOTE | 2017-04-24 17:34 | DSES ---
DATE OF ADMISSION: 04/20/2017 DATE OF DISCHARGE: 04/23/2017 DISCHARGE DIAGNOSES: 1. Sepsis secondary to group B Streptococcus agalactia. 2. Cellulitis. 3. Bacteremia. SECONDARY DIAGNOSES: 1. Atrial fibrillation. 2. Coronary artery disease. 3. Hypothyroidism. 4. Benign prostatic hypertrophy. 5. Mixed chronic compensated congestive heart failure. 6. Obstructive sleep apnea. 7. Seasonal allergies. HOSPITAL COURSE: The patient is a 62-year-old man who presented acutely febrile with leukocytosis of 27.9 and mildly tachycardic with erythema extending proximally from his right popliteal area. The patient reportedly had an area of erythema and cellulitis on the left lower extremity, and he was actually completing a course doxycycline, when he began to fell unwell. He presented to the hospital and was found to be septic. He was admitted to the medical/surgical floor, started on empiric broad-spectrum antibiotics. Eventually his blood cultures did return 2 out of 2 bottles positive for Streptococcus agalactia, group B, resistant to tetracycline but sensitive to ampicillin. Antibiotics were narrowed to ampicillin. His leukocytosis resolved. His fever defervesced. His lactic acid resolved. His inflammatory markers trended down. His repeat blood cultures were negative after 24 hours from April 21. SUBJECTIVE: Today the patient reports he feels well and wants to go home. He denies chest pressure, shortness of breath, fever, chills, nausea, vomiting, or diarrhea. He states that his pain in his right lower extremity has improved. OBJECTIVE: VITAL SIGNS: Temperature 97.3, pulse 70, respiratory rate 16, blood pressure (BP) 125/71, oxygen saturation 93% on room air. GENERAL: He is a very pleasant, tall, morbidly obese man sitting in a recliner. He does not appear to be in any acute distress. HEENT: Cranial nerves II-XII are grossly intact. He has moist mucous membranes. No elevation in central venous pressure (CVP). CARDIOVASCULAR: S1, S2, regular. RESPIRATORY: Clear. ABDOMEN: Grossly obese. Bowel sounds present. The abdomen is soft. EXTREMITIES: The right lower extremity area of erythema is less erythematous. There is decreased tenderness and swelling in the area. There is still 1+ edema of the right lower extremity. LABORATORY STUDIES: WBC 7.4, hemoglobin 11.6, platelet count 153. Chemistry panel: Sodium 137, potassium 3.8, chloride 103, bicarbonate 27, BUN 12, creatinine 0.8. CRP is 7.2, down from 18.5 at the time of admission. Microbiology as outlined above. Duplex ultrasound did not reveal any deep vein thrombosis (DVT). ASSESSMENT AND PLAN: This is a 62-year-old man with severe sepsis secondary to Streptococcus agalactia, group B, on the right lower extremity. 1. Severe sepsis secondary to Streptococcus agalactia, group B, resolving. The patient has been switched to ampicillin. He should complete 500 mg every 6 hours by mouth for a full 2-week course for treatment of bacteremia. He was able to clear his blood draws, which was quickly. He is tolerating a regular diet. His lactic acidosis is resolved. His fever had defervesced. His leukocytosis has resolved. He is to followup with his primary care provider over the next 2 weeks. 2. Chronic kidney disease. We will restart his home diuretic, angiotensin-converting enzyme (LAZ) inhibitor, and Aldactone upon discharge. 3. Chronic atrial fibrillation. He is rate controlled with amiodarone, digoxin, and a beta esau. He is anticoagulated with Pradaxa. 4. Coronary artery disease. He is on aspirin, statin, and a beta esau. 5. Hypothyroidism. He is on Synthroid. 6. Benign prostatic hypertrophy (BPH). He is on Flomax and Proscar. 7. Mixed chronic congestive heart failure. He is status post automatic implantable cardioverter-defibrillator (AICD) placement. He has a history of an ejection fraction of 35%. He also has history of diastolic dysfunction as well as chronic right-sided heart failure. He is continued on LAZ inhibitor, Aldactone, Lasix, beta esau. 8. Obstructive sleep apnea. He continues to use his home continuous positive airway pressure (CPAP) while in hospital. 9. Seasonal allergies. He is on Flonase and loratadine. 10. Vitamin D deficiency. He is on supplementation. 11. B12 deficiency. He is on supplementation. 12. Iron deficiency anemia, mild. He is on supplementation. 13. BPH. The patient is on tamsulosin and finasteride. 14. Gastroesophageal reflux disease. He is on pantoprazole. DISPOSITION: The patient is being discharged home. He is at his functional baseline. His clinical status is improved. He is to followup with his primary care physician (PCP) as scheduled within 2 weeks. His activity is as tolerated. His diet is as prior to admission. He is to keep his lower extremity wounds clean and dry. He is okay to shower. He is to return to the emergency room (ER) if his symptoms worsen. MEDICATIONS AT TIME OF DISCHARGE: - ampicillin 500 mg every 6 hours, 2-week supply - adult gummies, two chewable tablets daily - amiodarone 200 mg twice a day - aspirin 81 mg at bedtime - calcium citrate plus D3, 250/200, two tablets by mouth every morning - vitamin D 5000 units daily - cranberry extract, as per the patient, 500 mg daily - vitamin B12 100 mcg daily - Pradaxa 150 mg twice a day - digoxin 0.125 mg daily - ferrous fumarate 324 mg every evening - finasteride 5 mg daily - fish oil 1200 mg capsule, two capsules daily - Flonase 50 mg inhaled daily - Lasix 50 mg daily - glucosamine 500/400 two tablets daily - Synthroid 175 mcg daily - lisinopril 2.5 mg at bedtime - loratadine 10 mg at bedtime - metoprolol tartrate 75 mg twice a day - Nitrostat 0.4 mg sublingually every 5 minutes as needed for chest pain for three doses - Pantoprazole 50 mg at bedtime - potassium chloride 10 mEq every evening - Regranex 0.0% gel topically at bedtime applied to the left foot - rosuvastatin 20 mg at bedtime - Aldactone 12.5 mg daily - Flomax 0.4 mg daily Greater than 45 minutes spent organizing disposition.
[2017-06-05] MEDS ORDERED: STOO100C PO (08:32)
[2017-06-05] MEDS ORDERED: CALC1TAB72 PO (08:32)
[2017-06-05] MEDS ORDERED: VITA500T3 PO (08:32)
== END 2017-04-23 11:54 | disposition home or self-care (01) | DRG 720 ==
LOC: M ED 04:08 → M ED INP 08:32 → M MSPAV 14:31
PROVIDERS: ADMIT Hospitalist; ATTEND Internal Medicine
DX: A41.9 Sepsis, unspecified organism (principal); I50.42 Chronic combined systolic (congestive) and diastolic (congestive) heart failure; I48.2 Chronic atrial fibrillation; L03.115 Cellulitis of right lower limb; I25.10 Atherosclerotic heart disease of native coronary artery without angina pectoris; E03.9 Hypothyroidism, unspecified; N40.0 Benign prostatic hyperplasia without lower urinary tract symptoms; K21.9 Gastro-esophageal reflux disease without esophagitis; G47.33 Obstructive sleep apnea (adult) (pediatric); J30.2 Other seasonal allergic rhinitis; Z99.89 Dependence on other enabling machines and devices; Z95.810 Presence of automatic (implantable) cardiac defibrillator; Z79.82 Long term (current) use of aspirin; Z79.01 Long term (current) use of anticoagulants; I25.2 Old myocardial infarction; Z95.5 Presence of coronary angioplasty implant and graft; Z98.84 Bariatric surgery status; Z87.891 Personal history of nicotine dependence; Z82.49 Family history of ischemic heart disease and other diseases of the circulatory system; Z80.0 Family history of malignant neoplasm of digestive organs; B95.1 Streptococcus, group B, as the cause of diseases classified elsewhere

== ENCOUNTER 2017-06-09 07:23 | Day surgery (SDC) | payer BC, OTHER ==
[~2017-06-09] VITALS: Ht 190.5 cm; Wt 187.6 kg
[~2017-06-09 07:23] MED LIST changes: +AMPI500C9 PO; +BECA1GEL TOP; +CALC1TAB72 PO; +D 501TAB PO; +DIGO0.12 PO; +DOXY-278 PO; +STOO100C PO; +VITA500T3 PO
[2017-06-09] MEDS ORDERED: NS 1,000 ML IV ONE (07:30)
[2017-06-09] MEDS ORDERED: LR 1,000 ML IV ONE (07:30)
[2017-06-09] MEDS ORDERED: PROPOFOL 200 MG/20 ML VIAL As Ordered ONE (12:24)
--- NOTE | 2017-06-09 12:46 | ROOR ---
Patient Name: Eliud Catherine Procedure Date: 06/09/2017 12:07 PM Date of : 1955 Age: 62 Gender: Male Note Status: Finalized Procedure: Total Colonoscopy to Cecum + Biopsy Polypectomy Indications: Family history of colon cancer in a first-degree relative Providers: Gaurav Red MD Referring MD: Eliud Mejía MD Requesting Provider: Medicines: Monitored Anesthesia Care Complications: No immediate complications. Procedure: Pre-Anesthesia Assessment: - The heart rate, respiratory rate, oxygen saturations, blood pressure, adequacy of pulmonary ventilation, and response to care were monitored throughout the procedure. The Colonoscope was introduced through the anus and advanced to the cecum, identified by appendiceal orifice and ileocecal valve. The colonoscopy was performed without difficulty. The patient tolerated the procedure well. The quality of the bowel preparation was excellent. Findings: The perianal and digital rectal examinations were normal. Non-bleeding internal hemorrhoids were found during retroflexion. The hemorrhoids were small and Grade I (internal hemorrhoids that do not prolapse). Multiple small and large-mouthed diverticula were found in the recto-sigmoid colon, sigmoid colon and descending colon. A diminutive polyp was found in the cecum. The polyp was sessile. The polyp was removed with a jumbo cold forceps. Resection and retrieval were complete. The exam was otherwise without abnormality on direct and retroflexion views. Impression: - Non-bleeding internal hemorrhoids. - Diverticulosis in the recto-sigmoid colon, in the sigmoid colon and in the descending colon. - One diminutive polyp in the cecum, removed with a jumbo cold forceps. Resected and retrieved. - The examination was otherwise normal on direct and retroflexion views. - The exam was otherwise normal to the cecum. Recommendation: - Patient has a contact number available for emergencies. The signs and symptoms of potential delayed complications were discussed with the patient. Return to normal activities tomorrow. Written discharge instructions were provided to the patient. - Discharge patient to home. - Continue present medications. - Await pathology results. - Telephone GI clinic for pathology results in 1 week. - Repeat colonoscopy in 5 years for surveillance. - Return to referring physician. - Check Portal Online for Path Results.([email or web address]) - The findings and recommendations were discussed with the patient's family. Gaurav Red MD Gaurav Red MD 06/09/2017 12:45:42 PM This report has been signed electronically. Number of Addenda: 0 Note Initiated On: 06/09/2017 12:07 PM Estimated Blood Loss: Estimated blood loss: none.
[2017-06-09] MEDS ORDERED: LR 1,000 ML IV SCH (13:15)
[2017-06-09 13:45] VITALS: BP 133/60
== END 2017-06-09 14:02 | disposition home or self-care (01) ==
LOC: M SDC 07:23
PROVIDERS: ATTEND Internal Medicine Gastroenterology
DX: Z80.0 Family history of malignant neoplasm of digestive organs (principal); K64.0 First degree hemorrhoids; D12.0 Benign neoplasm of cecum; K57.30 Diverticulosis of large intestine without perforation or abscess without bleeding; I11.0 Hypertensive heart disease with heart failure; E78.00 Pure hypercholesterolemia, unspecified; I48.91 Unspecified atrial fibrillation; E03.9 Hypothyroidism, unspecified; K21.9 Gastro-esophageal reflux disease without esophagitis; M12.9 Arthropathy, unspecified; R94.31 Abnormal electrocardiogram [ECG] [EKG]; I25.119 Atherosclerotic heart disease of native coronary artery with unspecified angina pectoris; I25.2 Old myocardial infarction; R06.83 Snoring; G47.33 Obstructive sleep apnea (adult) (pediatric); N40.0 Benign prostatic hyperplasia without lower urinary tract symptoms; Z79.899 Other long term (current) drug therapy; Z79.01 Long term (current) use of anticoagulants; Z79.84 Long term (current) use of oral hypoglycemic drugs; Z98.84 Bariatric surgery status; Z95.0 Presence of cardiac pacemaker; Z95.5 Presence of coronary angioplasty implant and graft

== ENCOUNTER 2017-08-31 22:42 | Emergency (ER) | payer BC, OTHER ==
[~2017-08-31] VITALS: Ht 190.5 cm; Wt 188.6 kg
[2017-08-31] MEDS ORDERED: CLOTCRE3 TOP (23:00)
[2017-08-31] MEDS ORDERED: PRAD150C PO (23:00)
[2017-08-31] MEDS ORDERED: MULT1TAB18 PO (23:00)
[2017-08-31] MEDS ORDERED: VITA250L PO (23:00)
[2017-08-31] MEDS ORDERED: ASPIRIN 325 MG TAB PO ONE (23:15)
[2017-08-31 23:49] LABS: BASO # 0.1 10^3/uL (0.0-0.2); BASO % 0.5 % (0.0-1.0); EOS # 0.2 10^3/uL (0.0-0.50); EOS % 2.3 % (0.0-3.0); IMMATURE GRANULOCYTE % 0.6 % (0-0); LYMPH # 1.6 10^3/uL (1.5-4.5); LYMPH % 15.7 % (24.0-44.0); MEAN CORPUSCULAR HEMOGLOBIN 29.7 pg (27.0-33.0); MEAN CORPUSCULAR HGB CONC 32.5 g/dl (32.0-36.5); MEAN CORPUSCULAR VOLUME 91.3 fl (80.0-96.0); MONO # 1.1 10^3/uL (0.0-0.8); MONO % 11.2 % (0.0-5.0); NEUTROPHILS % 69.7 % (36.0-66.0); PLATELET COUNT, AUTOMATED 171 10^3/uL (150-450); RED CELL DISTRIBUTION WIDTH 14.2 % (11.5-14.5)
[2017-09-01 00:08] LABS: INR 1.14
[2017-09-01 00:20] LABS: ALBUMIN 3.6 GM/DL (3.2-5.2); ALBUMIN/GLOBULIN RATIO 1.06 (1.00-1.93); BILIRUBIN,DIRECT 0.2 MG/DL (0.0-0.2); BILIRUBIN,TOTAL 0.6 MG/DL (0.2-1.0)
[2017-09-01 00:23] LABS: ANION GAP 5 MEQ/L (8-16); BLOOD UREA NITROGEN 30 MG/DL (7-18); CALCIUM LEVEL 8.9 MG/DL (8.8-10.2); CARBON DIOXIDE LEVEL 31 MEQ/L (21-32); CHLORIDE LEVEL 104 MEQ/L (98-107); CREATININE FOR GFR 1.08 MG/DL (0.70-1.30); GLOMERULAR FILTRATION RATE > 60.0 (>49); GLUCOSE, FASTING 112 MG/DL (80-110); POTASSIUM SERUM 4.3 MEQ/L (3.5-5.1); SODIUM LEVEL 140 MEQ/L (136-145)
[2017-09-01] MEDS ORDERED: ISOVUE-370 76% 100ML VIAL (Q9967) As Ordered ONE (01:20)
[2017-09-01] MEDS ORDERED: NS 500 ML IV ONE (01:30)
--- NOTE | 2017-09-01 02:30 | REPUSA ---
CLINICAL HISTORY: Chest pain. TECHNIQUE: Multiple axial CT images were obtained through the thorax with IV contrast material. COMMENTS: Pacemaker wires are in good position. Bilateral basilar atelectatic airspace disease. Cardiomegaly. Prior CABG. There is no evidence of pleural or parenchymal mass. There are no pleural effusions. There is no evid ence of hilar or mediastinal lymphadenopathy. The visualized portions of the liver are of uniform attenuation without mass or defect. There is no i ntra or extrahepatic biliary ductal dilatation. The spleen is unremarkable. The visualized pancreas i s of normal contour and attenuation characteristics. There is no evidence of adrenal mass. The visual ized portions of the kidneys present no abnormalities. The bony structures are free of lytic or blastic lesions. Post contrast images demonstrate no evidence for abnormal enhancement. IMPRESSION: Prior CABG. Cardiomegaly. Bilateral basilar atelectatic airspace disease. No evidence of acute thoracic pathology. Thank you for your kind referral of this patient.
--- NOTE | 2017-09-01 02:30 | REPUSA ---
CLINICAL HISTORY: Abdominal pain. TECHNIQUE: Multiple axial, sagittal and coronal CT images were obtained through the abdomen and pelvi s after administration of oral and intravenous contrast material. Images were obtained before and aft er IV contrast administration. COMMENTS: The liver is of uniform attenuation without mass or defect. There is no intra or extrahepatic biliary ductal dilatation. The spleen is normal. The gallbladder is thickened and distended containing galls tones. The pancreas is of normal contour and attenuation characteristics. There is no evidence of adr enal mass. Both kidneys demonstrate prompt and equal nephrograms. The kidneys are normal in size, shape and conf iguration. There is no evidence of renal or ureteral mass. No renal or ureteral calculi are identifie d. There is no hydroureter or hydronephrosis. No evidence for appendicitis. There is no bowel wall thickening. No evidence for small or large fam l obstruction. There is no evidence of abdominal ascites or lymphadenopathy. Prior gastric bypass surgery. There is no evidence of intrinsic or extrinsic bladder mass. There is no pelvic ascites or lymphadeno deng. Uncomplicated colonic diverticulosis. Mild amount of fecal residue in the large bowels. Images of the lung bases show no evidence of pleural or parenchymal mass. There are no pleural effusi ons. The bony structures are free of lytic or blastic lesions. Multilevel degenerative changes are seen in volving the thoracolumbar spine. Scattered calcifications are seen involving the aorta and major bran ches compatible with atherosclerosis. Bilateral fat containing inguinal hernias without incarceration. IMPRESSION: Distended gallbladder containing gallstones. Mild thickening of the wall of the gallbladder. Findings are suspicious for acute inflammatory change s. Gastric bypass surgery. Thank you for your kind referral of this patient.
[2017-09-01 04:38] VITALS: BP 142/74
--- NOTE | 2017-09-01 12:31 | ECGEPIP ---
Stationary ECG Study [facility] - ED Test Date: 2017-09-01 Pat Name: JANES CURIEL Department: Room: - Gender: M Licensed Home Inspector: : 1955 Requested By: HARDEEP GALDAMEZ Order Number: [id number] Reading MD: Juanis Blanco Measurements Intervals [place] Rate: 69 P: ME: 0 QRS: 106 QRSD: 203 T: -45 QT: 495 QTc: 534 Interpretive Statements ELECTRONIC VENTRICULAR PACEMAKER ABNORMAL RHYTHM ECG Electronically Signed On 09-01-2017 12:30:36 EST by Juanis Blanoc
== END 2017-09-01 05:04 | disposition home or self-care (01) ==
LOC: M ED 22:42
DX: K80.20 Calculus of gallbladder without cholecystitis without obstruction (principal); Z72.0 Tobacco use
CPT/HCPCS: 71260; 74177; 80048; 80076; 82150; 82550; 82553; 83690; 85025; 85610; 85730; 93005; 96360; 96361; 99285; Q9967

== ENCOUNTER 2017-12-24 11:24 | Inpatient (IN) | payer BC, OTHER ==
[2017-12-24] MEDS: NS 1,000 ML IV (13:04)
[2017-12-24 13:13] LABS: BASO % 0.2 % (0.0-1.0); EOS % 0.2 % (0.0-3.0); HEMATOCRIT 39.3 % (42.0-52.0); HEMOGLOBIN 12.6 g/dl (13.5-17.5); IMMATURE GRANULOCYTE % 0.8 % (0-3.0); LYMPH # 1.7 10^3/uL (1.5-4.5); LYMPH % 9.2 % (24.0-44.0); MEAN CORPUSCULAR HGB CONC 32.1 g/dl (32.0-36.5); MEAN CORPUSCULAR VOLUME 87.3 fl (80.0-96.0); NEUTROPHILS # 14.1 10^3/uL (1.8-7.7); NEUTROPHILS % 78.4 % (36.0-66.0); PLATELET COUNT, AUTOMATED 191 10^3/uL (150-450); RED CELL DISTRIBUTION WIDTH 14.6 % (11.5-14.5)
[2017-12-24] MEDS: AMPICILLIN SOD/SULBACTAM SOD 3 GM in D5W MINI-BAG PLUS 100 ML IV (13:38)
[2017-12-24 13:44] LABS: ERYTHROCYTE SEDIMENTATION RATE 55 mm/hr (0-20)
[2017-12-24 13:47] LABS: MONO % 11.2 % (0.0-5.0); POSITIVE DIFF POS FLAG
[2017-12-24 13:53] LABS: ALBUMIN 3.1 GM/DL (3.2-5.2); ALBUMIN/GLOBULIN RATIO 0.78 (1.00-1.93); ALKALINE PHOSPHATASE 104 U/L (45-117); ALT/SGPT 48 U/L (12-78); ANION GAP 6 MEQ/L (8-16); AST/SGOT 32 U/L (7-37); BILIRUBIN,TOTAL 1.4 MG/DL (0.2-1.0); BLOOD UREA NITROGEN 20 MG/DL (7-18); CALCIUM LEVEL 8.7 MG/DL (8.8-10.2); CARBON DIOXIDE LEVEL 28 MEQ/L (21-32); CHLORIDE LEVEL 102 MEQ/L (98-107); CREATININE FOR GFR 1.14 MG/DL (0.70-1.30); GLOMERULAR FILTRATION RATE > 60.0 (>49); GLUCOSE, FASTING 94 MG/DL (70-100); POTASSIUM SERUM 3.9 MEQ/L (3.5-5.1); SODIUM LEVEL 136 MEQ/L (136-145); TOTAL PROTEIN 7.1 GM/DL (6.4-8.2)
[2017-12-24 15:55] LABS: LACTIC ACID SEPSIS PROTOCOL 1.5 MMOL/L (0.4-2.0)
[2017-12-24] MEDS: ACETAMINOPHEN 325 MG TAB PO (17:50)
[2017-12-24] MEDS ORDERED: ISOVUE-370 76% 100ML VIAL (Q9967) As Ordered (18:26)
[2017-12-24] MEDS ORDERED: PIPERACILLIN/TAZOBACTAM SOD 3.375 GM in APPROPRIATE DILUENT 1 EA IV (20:00)
[2017-12-24] MEDS: VANCOMYCIN HCL 1,000 MG, VIAL MATE ADAPTER 1 EACH in D5W 250 ML IV ×2 (20:25→23:38)
[2017-12-24] MEDS: PIPERACILLIN/TAZOBACTAM SOD 3.375 GM in APPROPRIATE DILUENT 1 EA IV (23:25)
[2017-12-25] MEDS: PANTOPRAZOLE 40MG TAB (PROTONIX) PO ×2 (00:26→21:39)
[2017-12-25] MEDS: METOPROLOL TART 25 MG TABLET PO ×3 (00:26→21:39)
[2017-12-25] MEDS: VANCOMYCIN HCL 1,000 MG, VIAL MATE ADAPTER 1 EACH in D5W 250 ML IV ×3 (05:24→18:02)
[2017-12-25] MEDS: PIPERACILLIN/TAZOBACTAM SOD 3.375 GM in APPROPRIATE DILUENT 1 EA IV ×4 (05:54→22:44)
[2017-12-25 06:51] LABS: ESTIMATED AVERAGE GLUCOSE 100 MG/DL (60-110); HEMOGLOBIN A1c 5.1 %
[2017-12-25 09:34] LABS: BASO % 0.3 % (0.0-1.0); EOS # 0.2 10^3/uL (0.0-0.50); EOS % 1.5 % (0.0-3.0); IMMATURE GRANULOCYTE % 0.5 % (0-3.0); LYMPH # 1.3 10^3/uL (1.5-4.5); LYMPH % 9.3 % (24.0-44.0); MEAN CORPUSCULAR HEMOGLOBIN 27.9 pg (27.0-33.0); MEAN CORPUSCULAR HGB CONC 32.4 g/dl (32.0-36.5); MEAN CORPUSCULAR VOLUME 86.3 fl (80.0-96.0); MONO # 1.6 10^3/uL (0.0-0.8); MONO % 11.3 % (0.0-5.0); NEUTROPHILS % 77.1 % (36.0-66.0); PLATELET COUNT, AUTOMATED 180 10^3/uL (150-450); RED BLOOD COUNT 3.94 10^6/uL (4.30-6.10); RED CELL DISTRIBUTION WIDTH 14.7 % (11.5-14.5); WHITE BLOOD COUNT 14.3 10^3/uL (4.0-10.0)
[2017-12-25] MEDS: LISINOPRIL *2.5 MG* TAB PO (10:00)
[2017-12-25 10:12] LABS: ANION GAP 9 MEQ/L (8-16); BLOOD UREA NITROGEN 16 MG/DL (7-18); CALCIUM LEVEL 8.2 MG/DL (8.8-10.2); CARBON DIOXIDE LEVEL 26 MEQ/L (21-32); CHLORIDE LEVEL 104 MEQ/L (98-107); CREATININE FOR GFR 0.87 MG/DL (0.70-1.30); GLOMERULAR FILTRATION RATE > 60.0 (>49); GLUCOSE, FASTING 86 MG/DL (70-100); POTASSIUM SERUM 3.5 MEQ/L (3.5-5.1); SODIUM LEVEL 139 MEQ/L (136-145)
[2017-12-25] MEDS ORDERED: NITROGLYCERIN 0.4 MG SUBL TABLET SL (11:00)
[2017-12-25] MEDS: AMIODARONE 200 MG TAB (PACERONE) PO ×2 (11:09→21:39)
[2017-12-25] MEDS: DIGOXIN 0.125 MG TAB PO (11:09)
[2017-12-25] MEDS: FINASTERIDE 5 MG TAB PO (11:09)
[2017-12-25] MEDS: TAMSULOSIN 0.4 MG CAP PO (11:50)
[2017-12-25] MEDS ORDERED: MIDAZOLAM INJ 2 MG/2 ML VIAL (J2250) As Ordered (16:02)
[2017-12-25] MEDS ORDERED: PROPOFOL 200 MG/20 ML VIAL As Ordered (16:03)
[2017-12-25] MEDS ORDERED: fentaNYL 100 MCG/2 ML INJECTION (J3010) As Ordered (16:03)
[2017-12-25] MEDS: LIDOCAINE 1% MDV 20ML VIAL As Ordered (16:39)
[2017-12-25] MEDS: BUPIVACAINE HCL 0.5% 10 ML VIAL As Ordered (16:39)
[2017-12-25] MEDS: ZOSYN 3.375 GM VIAL (J2543) As Ordered (16:49)
[2017-12-25] MEDS ORDERED: fentaNYL 100 MCG/2 ML INJECTION (J3010) IV (17:30)
[2017-12-25] MEDS ORDERED: PERCOCET 5MG/325MG TAB PO ×2 (17:30→17:45)
[2017-12-25] MEDS: LR 1,000 ML IV (17:30)
[2017-12-25] MEDS ORDERED: ONDANSETRON 4MG/2ML VIAL (J2405) IV (17:30)
[2017-12-25] MEDS ORDERED: LISINOPRIL *2.5 MG* TAB PO (21:00)
[2017-12-25] MEDS ORDERED: LORATADINE 10 MG TAB PO (21:00)
[2017-12-25] MEDS: POTASSIUM CHLORIDE 10 MEQ SR TABLET PO (21:39)
[2017-12-25] MEDS: ROSUVASTATIN 10 MG TAB (CRESTOR) PO (21:39)
[2017-12-26] MEDS: VANCOMYCIN HCL 1,000 MG, VIAL MATE ADAPTER 1 EACH in D5W 250 ML IV ×4 (00:16→17:37)
[2017-12-26] MEDS: PIPERACILLIN/TAZOBACTAM SOD 3.375 GM in APPROPRIATE DILUENT 1 EA IV ×4 (04:38→22:43)
[2017-12-26] MEDS: LEVOTHYROXINE 150MCG TABLET (0.15MG) PO (05:47)
[2017-12-26] MEDS: LEVOTHYROXINE 25MCG TABLET (0.025MG) PO (05:47)
[2017-12-26] MEDS: METOPROLOL TART 25 MG TABLET PO ×2 (07:57→21:53)
[2017-12-26] MEDS: LISINOPRIL *2.5 MG* TAB PO (07:59)
[2017-12-26] MEDS: DIGOXIN 0.125 MG TAB PO (08:00)
[2017-12-26] MEDS: AMIODARONE 200 MG TAB (PACERONE) PO ×2 (08:00→21:53)
[2017-12-26] MEDS: TAMSULOSIN 0.4 MG CAP PO (08:00)
[2017-12-26] MEDS: FINASTERIDE 5 MG TAB PO (08:00)
[2017-12-26] MEDS: HEPARIN SOD (PORCINE) 5000 UNITS/ML VIAL SQ ×2 (14:32→21:54)
[2017-12-26 17:29] LABS: VANCOMYCIN LEVEL TROUGH 17.8 UG/ML (10.0-20.0)
[2017-12-26] MEDS: POTASSIUM CHLORIDE 10 MEQ SR TABLET PO (21:53)
[2017-12-26] MEDS: PANTOPRAZOLE 40MG TAB (PROTONIX) PO (21:53)
[2017-12-26] MEDS: ROSUVASTATIN 10 MG TAB (CRESTOR) PO (21:53)
[2017-12-27] MEDS: VANCOMYCIN HCL 1,000 MG, VIAL MATE ADAPTER 1 EACH in D5W 250 ML IV ×5 (00:01→23:42)
[2017-12-27] MEDS: PIPERACILLIN/TAZOBACTAM SOD 3.375 GM in APPROPRIATE DILUENT 1 EA IV ×4 (04:48→22:40)
[2017-12-27 05:58] LABS: BASO % 0.5 % (0.0-1.0); EOS # 0.4 10^3/uL (0.0-0.50); EOS % 4.6 % (0.0-3.0); HEMATOCRIT 35.3 % (42.0-52.0); IMMATURE GRANULOCYTE % 0.7 % (0-3.0); LYMPH # 1.4 10^3/uL (1.5-4.5); LYMPH % 16.8 % (24.0-44.0); MEAN CORPUSCULAR HEMOGLOBIN 27.8 pg (27.0-33.0); MEAN CORPUSCULAR HGB CONC 31.2 g/dl (32.0-36.5); MEAN CORPUSCULAR VOLUME 89.1 fl (80.0-96.0); MONO # 0.8 10^3/uL (0.0-0.8); NEUTROPHILS # 5.4 10^3/uL (1.8-7.7); NEUTROPHILS % 67.4 % (36.0-66.0); PLATELET COUNT, AUTOMATED 182 10^3/uL (150-450); RED BLOOD COUNT 3.96 10^6/uL (4.30-6.10); RED CELL DISTRIBUTION WIDTH 14.4 % (11.5-14.5); WHITE BLOOD COUNT 8.1 10^3/uL (4.0-10.0)
[2017-12-27] MEDS: LEVOTHYROXINE 150MCG TABLET (0.15MG) PO (06:09)
[2017-12-27] MEDS: LEVOTHYROXINE 25MCG TABLET (0.025MG) PO (06:09)
[2017-12-27] MEDS: FINASTERIDE 5 MG TAB PO (08:29)
[2017-12-27] MEDS: HEPARIN SOD (PORCINE) 5000 UNITS/ML VIAL SQ ×2 (08:29→21:38)
[2017-12-27] MEDS: AMIODARONE 200 MG TAB (PACERONE) PO ×2 (08:29→21:39)
[2017-12-27] MEDS: METOPROLOL TART 25 MG TABLET PO ×2 (08:30→21:39)
[2017-12-27] MEDS: FUROSEMIDE 40 MG TAB PO (08:30)
[2017-12-27] MEDS: TAMSULOSIN 0.4 MG CAP PO (08:30)
[2017-12-27] MEDS: DIGOXIN 0.125 MG TAB PO (08:31)
[2017-12-27] MEDS: LISINOPRIL *2.5 MG* TAB PO (08:31)
[2017-12-27] MEDS: SPIRONOLACTONE 12.5MG PER 1/2 TABLET PO (08:31)
[2017-12-27] MEDS: ROSUVASTATIN 10 MG TAB (CRESTOR) PO (21:39)
[2017-12-27] MEDS: PANTOPRAZOLE 40MG TAB (PROTONIX) PO (21:39)
[2017-12-27] MEDS: POTASSIUM CHLORIDE 10 MEQ SR TABLET PO (21:39)
[2017-12-28] MEDS: PIPERACILLIN/TAZOBACTAM SOD 3.375 GM in APPROPRIATE DILUENT 1 EA IV ×4 (04:58→23:06)
[2017-12-28] MEDS: LEVOTHYROXINE 25MCG TABLET (0.025MG) PO (05:29)
[2017-12-28] MEDS: LEVOTHYROXINE 150MCG TABLET (0.15MG) PO (05:29)
[2017-12-28] MEDS: VANCOMYCIN HCL 1,000 MG, VIAL MATE ADAPTER 1 EACH in D5W 250 ML IV ×2 (05:29→11:39)
[2017-12-28 06:26] LABS: C REACTIVE PROTEIN QUANTITATIV 5.84 MG/DL (0.00-0.30)
[2017-12-28] MEDS: HEPARIN SOD (PORCINE) 5000 UNITS/ML VIAL SQ ×2 (09:01→20:14)
[2017-12-28] MEDS: METOPROLOL TART 25 MG TABLET PO ×2 (09:02→20:13)
[2017-12-28] MEDS: FUROSEMIDE 40 MG TAB PO (09:02)
[2017-12-28] MEDS: LISINOPRIL *2.5 MG* TAB PO (09:02)
[2017-12-28] MEDS: AMIODARONE 200 MG TAB (PACERONE) PO ×2 (09:02→20:13)
[2017-12-28] MEDS: SPIRONOLACTONE 12.5MG PER 1/2 TABLET PO (09:03)
[2017-12-28] MEDS: TAMSULOSIN 0.4 MG CAP PO (09:03)
[2017-12-28] MEDS: DIGOXIN 0.125 MG TAB PO (09:03)
[2017-12-28] MEDS: FINASTERIDE 5 MG TAB PO (09:03)
[2017-12-28 09:10] LABS: ANION GAP 7 MEQ/L (8-16); BLOOD UREA NITROGEN 12 MG/DL (7-18); CALCIUM LEVEL 8.1 MG/DL (8.8-10.2); CARBON DIOXIDE LEVEL 27 MEQ/L (21-32); CHLORIDE LEVEL 108 MEQ/L (98-107); CREATININE FOR GFR 0.95 MG/DL (0.70-1.30); GLOMERULAR FILTRATION RATE > 60.0 (>49); GLUCOSE, FASTING 90 MG/DL (70-100); POTASSIUM SERUM 3.9 MEQ/L (3.5-5.1); SODIUM LEVEL 142 MEQ/L (136-145)
[2017-12-28] MEDS: ROSUVASTATIN 10 MG TAB (CRESTOR) PO (20:12)
[2017-12-28] MEDS: POTASSIUM CHLORIDE 10 MEQ SR TABLET PO (20:13)
[2017-12-28] MEDS: PANTOPRAZOLE 40MG TAB (PROTONIX) PO (20:13)
[2017-12-29] MEDS: PIPERACILLIN/TAZOBACTAM SOD 3.375 GM in APPROPRIATE DILUENT 1 EA IV ×4 (05:26→22:57)
[2017-12-29] MEDS: LEVOTHYROXINE 37.5MCG PER 1/2TAB (0.0375MG) PO (05:49)
[2017-12-29] MEDS: LEVOTHYROXINE 150MCG TABLET (0.15MG) PO (05:49)
[2017-12-29 06:23] LABS: HEMATOCRIT 36.3 % (42.0-52.0); HEMOGLOBIN 11.5 g/dl (13.5-17.5); MEAN CORPUSCULAR HEMOGLOBIN 27.8 pg (27.0-33.0); MEAN CORPUSCULAR HGB CONC 31.7 g/dl (32.0-36.5); MEAN CORPUSCULAR VOLUME 87.9 fl (80.0-96.0); PLATELET COUNT, AUTOMATED 245 10^3/uL (150-450); RED BLOOD COUNT 4.13 10^6/uL (4.30-6.10); RED CELL DISTRIBUTION WIDTH 14.6 % (11.5-14.5); WHITE BLOOD COUNT 10.9 10^3/uL (4.0-10.0)
[2017-12-29 06:35] LABS: ANION GAP 7 MEQ/L (8-16); BLOOD UREA NITROGEN 11 MG/DL (7-18); C REACTIVE PROTEIN QUANTITATIV 3.47 MG/DL (0.00-0.30); CALCIUM LEVEL 8.4 MG/DL (8.8-10.2); CARBON DIOXIDE LEVEL 28 MEQ/L (21-32); CHLORIDE LEVEL 107 MEQ/L (98-107); CREATININE FOR GFR 0.92 MG/DL (0.70-1.30); GLOMERULAR FILTRATION RATE > 60.0 (>49); GLUCOSE, FASTING 90 MG/DL (70-100); SODIUM LEVEL 142 MEQ/L (136-145)
[2017-12-29] MEDS: HEPARIN SOD (PORCINE) 5000 UNITS/ML VIAL SQ (08:53)
[2017-12-29] MEDS: METOPROLOL TART 25 MG TABLET PO ×2 (08:54→20:07)
[2017-12-29] MEDS: AMIODARONE 200 MG TAB (PACERONE) PO ×2 (08:55→20:03)
[2017-12-29] MEDS: TAMSULOSIN 0.4 MG CAP PO (08:56)
[2017-12-29] MEDS: FINASTERIDE 5 MG TAB PO (08:56)
[2017-12-29] MEDS: DIGOXIN 0.125 MG TAB PO (08:57)
[2017-12-29] MEDS: LISINOPRIL *2.5 MG* TAB PO (08:57)
[2017-12-29] MEDS: FUROSEMIDE 40 MG TAB PO (08:58)
[2017-12-29] MEDS: SPIRONOLACTONE 12.5MG PER 1/2 TABLET PO (08:58)
[2017-12-29] MEDS: ROSUVASTATIN 10 MG TAB (CRESTOR) PO (20:03)
[2017-12-29] MEDS: PANTOPRAZOLE 40MG TAB (PROTONIX) PO (20:03)
[2017-12-29] MEDS: POTASSIUM CHLORIDE 10 MEQ SR TABLET PO (20:07)
[2017-12-29] MEDS: DABIGATRAN ETEXILATE 75 MG CAP (PRADAXA) PO (20:15)
[2017-12-30] MEDS: PIPERACILLIN/TAZOBACTAM SOD 3.375 GM in APPROPRIATE DILUENT 1 EA IV ×4 (05:27→22:57)
[2017-12-30] MEDS: LEVOTHYROXINE 37.5MCG PER 1/2TAB (0.0375MG) PO (05:27)
[2017-12-30] MEDS: LEVOTHYROXINE 150MCG TABLET (0.15MG) PO (05:28)
[2017-12-30 06:09] LABS: HEMOGLOBIN 11.1 g/dl (13.5-17.5); MEAN CORPUSCULAR HEMOGLOBIN 27.9 pg (27.0-33.0); MEAN CORPUSCULAR HGB CONC 31.7 g/dl (32.0-36.5); MEAN CORPUSCULAR VOLUME 87.9 fl (80.0-96.0); PLATELET COUNT, AUTOMATED 248 10^3/uL (150-450); RED BLOOD COUNT 3.98 10^6/uL (4.30-6.10); RED CELL DISTRIBUTION WIDTH 14.6 % (11.5-14.5); WHITE BLOOD COUNT 11.5 10^3/uL (4.0-10.0)
[2017-12-30 06:27] LABS: ANION GAP 7 MEQ/L (8-16); BLOOD UREA NITROGEN 11 MG/DL (7-18); C REACTIVE PROTEIN QUANTITATIV 2.62 MG/DL (0.00-0.30); CALCIUM LEVEL 8.4 MG/DL (8.8-10.2); CARBON DIOXIDE LEVEL 28 MEQ/L (21-32); CHLORIDE LEVEL 107 MEQ/L (98-107); CREATININE FOR GFR 0.94 MG/DL (0.70-1.30); GLOMERULAR FILTRATION RATE > 60.0 (>49); GLUCOSE, FASTING 91 MG/DL (70-100); POTASSIUM SERUM 4.1 MEQ/L (3.5-5.1); SODIUM LEVEL 142 MEQ/L (136-145)
[2017-12-30] MEDS: TAMSULOSIN 0.4 MG CAP PO (09:46)
[2017-12-30] MEDS: FINASTERIDE 5 MG TAB PO (09:46)
[2017-12-30] MEDS: AMIODARONE 200 MG TAB (PACERONE) PO ×2 (09:46→21:34)
[2017-12-30] MEDS: FUROSEMIDE 40 MG TAB PO (09:47)
[2017-12-30] MEDS: SPIRONOLACTONE 12.5MG PER 1/2 TABLET PO (09:47)
[2017-12-30] MEDS: DIGOXIN 0.125 MG TAB PO (09:47)
[2017-12-30] MEDS: LISINOPRIL *2.5 MG* TAB PO (09:47)
[2017-12-30] MEDS: DABIGATRAN ETEXILATE 75 MG CAP (PRADAXA) PO ×2 (09:48→21:33)
[2017-12-30] MEDS: METOPROLOL TART 25 MG TABLET PO ×2 (09:48→21:33)
[2017-12-30] MEDS: PANTOPRAZOLE 40MG TAB (PROTONIX) PO (21:33)
[2017-12-30] MEDS: POTASSIUM CHLORIDE 10 MEQ SR TABLET PO (21:33)
[2017-12-30] MEDS: ROSUVASTATIN 10 MG TAB (CRESTOR) PO (21:33)
[2017-12-30] MEDS ORDERED: ZOSYN 3.375 GM VIAL (J2543) As Ordered (22:33)
[2017-12-31] MEDS: LEVOTHYROXINE 37.5MCG PER 1/2TAB (0.0375MG) PO (05:37)
[2017-12-31] MEDS: LEVOTHYROXINE 150MCG TABLET (0.15MG) PO (05:37)
[2017-12-31] MEDS: PIPERACILLIN/TAZOBACTAM SOD 3.375 GM in APPROPRIATE DILUENT 1 EA IV ×4 (05:38→23:09)
[2017-12-31 06:01] LABS: HEMATOCRIT 36.3 % (42.0-52.0); HEMOGLOBIN 11.2 g/dl (13.5-17.5); MEAN CORPUSCULAR HEMOGLOBIN 27.3 pg (27.0-33.0); MEAN CORPUSCULAR HGB CONC 30.9 g/dl (32.0-36.5); MEAN CORPUSCULAR VOLUME 88.3 fl (80.0-96.0); PLATELET COUNT, AUTOMATED 247 10^3/uL (150-450); RED BLOOD COUNT 4.11 10^6/uL (4.30-6.10); RED CELL DISTRIBUTION WIDTH 14.7 % (11.5-14.5); WHITE BLOOD COUNT 11.9 10^3/uL (4.0-10.0)
[2017-12-31 06:18] LABS: ANION GAP 5 MEQ/L (8-16); BLOOD UREA NITROGEN 13 MG/DL (7-18); CALCIUM LEVEL 8.3 MG/DL (8.8-10.2); CARBON DIOXIDE LEVEL 31 MEQ/L (21-32); CHLORIDE LEVEL 105 MEQ/L (98-107); CREATININE FOR GFR 1.02 MG/DL (0.70-1.30); GLOMERULAR FILTRATION RATE > 60.0 (>49); GLUCOSE, FASTING 84 MG/DL (70-100); POTASSIUM SERUM 3.9 MEQ/L (3.5-5.1); SODIUM LEVEL 141 MEQ/L (136-145)
[2017-12-31] MEDS: DABIGATRAN ETEXILATE 75 MG CAP (PRADAXA) PO ×2 (08:05→20:15)
[2017-12-31] MEDS: SPIRONOLACTONE 12.5MG PER 1/2 TABLET PO (08:06)
[2017-12-31] MEDS: METOPROLOL TART 25 MG TABLET PO ×2 (08:06→20:16)
[2017-12-31] MEDS: LISINOPRIL *2.5 MG* TAB PO (08:06)
[2017-12-31] MEDS: FINASTERIDE 5 MG TAB PO (08:07)
[2017-12-31] MEDS: DIGOXIN 0.125 MG TAB PO (08:07)
[2017-12-31] MEDS: FUROSEMIDE 40 MG TAB PO (08:07)
[2017-12-31] MEDS: AMIODARONE 200 MG TAB (PACERONE) PO ×2 (08:08→20:16)
[2017-12-31] MEDS: TAMSULOSIN 0.4 MG CAP PO (08:08)
[2017-12-31] MEDS: POTASSIUM CHLORIDE 10 MEQ SR TABLET PO (20:16)
[2017-12-31] MEDS: ROSUVASTATIN 10 MG TAB (CRESTOR) PO (20:16)
[2017-12-31] MEDS: PANTOPRAZOLE 40MG TAB (PROTONIX) PO (20:16)
[2018-01-01] MEDS: LEVOTHYROXINE 150MCG TABLET (0.15MG) PO (05:50)
[2018-01-01] MEDS: LEVOTHYROXINE 37.5MCG PER 1/2TAB (0.0375MG) PO (05:50)
[2018-01-01] MEDS: PIPERACILLIN/TAZOBACTAM SOD 3.375 GM in APPROPRIATE DILUENT 1 EA IV ×2 (05:50→11:00)
[2018-01-01 06:40] LABS: HEMATOCRIT 36.1 % (42.0-52.0); HEMOGLOBIN 11.3 g/dl (13.5-17.5); MEAN CORPUSCULAR HGB CONC 31.3 g/dl (32.0-36.5); MEAN CORPUSCULAR VOLUME 89.4 fl (80.0-96.0); PLATELET COUNT, AUTOMATED 275 10^3/uL (150-450); RED BLOOD COUNT 4.04 10^6/uL (4.30-6.10); RED CELL DISTRIBUTION WIDTH 14.6 % (11.5-14.5); WHITE BLOOD COUNT 11.6 10^3/uL (4.0-10.0)
[2018-01-01 06:55] LABS: ANION GAP 5 MEQ/L (8-16); BLOOD UREA NITROGEN 13 MG/DL (7-18); CALCIUM LEVEL 8.5 MG/DL (8.8-10.2); CARBON DIOXIDE LEVEL 31 MEQ/L (21-32); CHLORIDE LEVEL 107 MEQ/L (98-107); CREATININE FOR GFR 1.05 MG/DL (0.70-1.30); GLOMERULAR FILTRATION RATE > 60.0 (>49); GLUCOSE, FASTING 89 MG/DL (70-100); SODIUM LEVEL 143 MEQ/L (136-145)
[2018-01-01] MEDS: DIGOXIN 0.125 MG TAB PO (08:47)
[2018-01-01] MEDS: METOPROLOL TART 25 MG TABLET PO (08:47)
[2018-01-01] MEDS: TAMSULOSIN 0.4 MG CAP PO (08:47)
[2018-01-01] MEDS: AMIODARONE 200 MG TAB (PACERONE) PO (08:47)
[2018-01-01] MEDS: LISINOPRIL *2.5 MG* TAB PO (08:48)
[2018-01-01] MEDS: SPIRONOLACTONE 12.5MG PER 1/2 TABLET PO (08:48)
[2018-01-01] MEDS: FINASTERIDE 5 MG TAB PO (08:48)
[2018-01-01] MEDS: DABIGATRAN ETEXILATE 75 MG CAP (PRADAXA) PO (08:49)
[2018-01-01] MEDS: FUROSEMIDE 40 MG TAB PO (08:49)
== END 2018-01-01 11:40 | disposition home health service (06) | DRG 364 ==
LOC: M ED 11:24 → M ED INP 19:04 → M MSPAV 21:15
PROC: 0LDW0ZZ Extraction of Left Foot Tendon, Open Approach (ICD-10-PCS; principal; 2017-12-25 16:00)
DX: L02.612 Cutaneous abscess of left foot (principal); Z68.42 Body mass index [BMI] 45.0-49.9, adult; I48.2 Chronic atrial fibrillation; G62.9 Polyneuropathy, unspecified; L03.116 Cellulitis of left lower limb; E66.01 Morbid (severe) obesity due to excess calories; L97.529 Non-pressure chronic ulcer of other part of left foot with unspecified severity; I87.2 Venous insufficiency (chronic) (peripheral); E78.5 Hyperlipidemia, unspecified; I25.10 Atherosclerotic heart disease of native coronary artery without angina pectoris; I25.2 Old myocardial infarction; G47.33 Obstructive sleep apnea (adult) (pediatric); Z87.891 Personal history of nicotine dependence; Z95.1 Presence of aortocoronary bypass graft; Z98.84 Bariatric surgery status; Z79.82 Long term (current) use of aspirin; Z79.01 Long term (current) use of anticoagulants; Z79.899 Other long term (current) drug therapy; Z95.0 Presence of cardiac pacemaker

== ENCOUNTER 2018-01-08 10:23 | Day surgery (SDC) | payer BC, OTHER ==
[~2018-01-08 10:23] MED LIST changes: -/TAMS4CA PO; -ADULCHW2 PO; -AMIO200T37 PO; -AMPI500C9 PO; -ASPI1TAB PO; -ASPI81TA45 PO; -ATOR40TA PO; -AUGM875T27 PO; -B-12100T2 PO; -BACT800T5 PO; -BECA1GEL TOP; -CALC1TAB11 PO; -CALC1TAB31 PO; -CALC1TAB72 PO; -CALC750T PO; -CALCCAP PO; -CINN500C9 PO; -CLAR10CA3 PO; -CLOT1CRE71 TOP; -COLA50CA3 PO; -CRAN500C2 PO; -CRAN500C5 PO; -CRES20TA PO; -D 501TAB PO; -D 50CAP PO; -DIGO0.12 PO; -DIGO0.127 PO; -DOXY-278 PO; -DOXY100T16 PO; -DOXY75CA3 PO; -ENAL10TA2 PO; -FERR324T12 PO; -FINA5TAB2 PO; -FISH1200 PO; -FLOM5CAP PO; -FLON1SPR; -FLUT50SP; -FLUTISP; -FURO40TA2 PO; -GEMF600T PO; -GLUC1TAB PO; -GLUC500C98 PO; -GLUC500T53 PO; -KLOR1TAB69 PO; -LASI40TA PO; -LEVO175T PO; -LEVO175T2 PO; +LIDOCAINE 2% INJ 100 MG/5 ML SDV (FOR ANES.) As Ordered; -LIPI20TA PO; -LISI2.5T3 PO; -LORA10TA2 PO; -METO-346 PO; -METO50TA2 PO; -METO50TA7 PO; -METO75TA PO; +MIDAZOLAM INJ 2 MG/2 ML VIAL (J2250) As Ordered; -MULTCHW14 PO; -MULTLIQ7 PO; -MULTTAB35 PO; -NITR4TASL SL; -NITROQUICK SL; -OMEG12006 PO; -PANT40TA2 PO; -PERCOCET PO; -PLAV1TAB2 PO; -POTA10CA PO; -PRAD150C PO; -PRAV20TA2 PO; +PROPOFOL 200 MG/20 ML VIAL As Ordered; -PROSCAR PO; -SILV1CRE60 TOP; -SPIR25TA2 PO; -STOO100C PO; -TAMS0.4C2 PO; -VITA100T20 PO; -VITA500T3 PO; -VITA500T53 PO; -[UNRECOGNIZED DRUG - CODE] PO; +fentaNYL 100 MCG/2 ML INJECTION (J3010) As Ordered; -vantin PO
[2018-01-08] MEDS: LR 1,000 ML IV (11:43)
[2018-01-08] MEDS: NEOSPORIN GU IRRIG 20 ML VIAL As Ordered (12:37)
[2018-01-08] MEDS: ROPIvacaine 0.5% 30 ML INJECTION (J2795 PER 1MG) As Ordered (12:37)
[2018-01-08] MEDS: LIDOCAINE 2% MDV 20 ML VIAL As Ordered (12:37)
[2018-01-08] MEDS: GENTAMICIN SULF INJ 80MG/2ML VIAL (J1580) As Ordered (12:40)
[2018-01-08] MEDS: BACITRACIN PWD 50,000 UNITS VIAL As Ordered (12:40)
[2018-01-08] MEDS: dexameTHASONE 4 MG/ML 1ML VIAL (J1100) As Ordered (13:00)
[2018-01-08] MEDS ORDERED: ONDANSETRON 4MG/2ML VIAL (J2405) As Ordered (13:05)
[2018-01-08] MEDS ORDERED: LR 1,000 ML IV (13:45)
[2018-01-08] MEDS ORDERED: ONDANSETRON 4MG/2ML VIAL (J2405) IV (13:45)
[2018-01-08] MEDS ORDERED: NORCO, ANEXSIA 5/325MG TABLET (HYDROcodone/ACETAMINOPHEN) PO (13:45)
== END 2018-01-08 14:40 | disposition home or self-care (01) ==
LOC: M SDC 10:23
DX: L97.522 Non-pressure chronic ulcer of other part of left foot with fat layer exposed (principal); L97.525 Non-pressure chronic ulcer of other part of left foot with muscle involvement without evidence of necrosis; I70.245 Atherosclerosis of native arteries of left leg with ulceration of other part of foot; M79.675 Pain in left toe(s); I48.91 Unspecified atrial fibrillation; I10 Essential (primary) hypertension; I25.2 Old myocardial infarction; Z98.61 Coronary angioplasty status; Z95.810 Presence of automatic (implantable) cardiac defibrillator; G47.30 Sleep apnea, unspecified; E78.5 Hyperlipidemia, unspecified; E03.9 Hypothyroidism, unspecified; Z98.84 Bariatric surgery status; K21.9 Gastro-esophageal reflux disease without esophagitis; Z79.82 Long term (current) use of aspirin; Z79.02 Long term (current) use of antithrombotics/antiplatelets; Z79.899 Other long term (current) drug therapy
CPT/HCPCS: 11043

== ENCOUNTER 2018-03-19 17:51 | Inpatient (IN) | payer MEDICARE, BC, OTHER ==
[2018-03-19] MEDS: METOPROLOL TART 25 MG TABLET PO (00:30)
[2018-03-19] MEDS: LISINOPRIL *2.5 MG* TAB PO (00:30)
[2018-03-19 20:46] LABS: BASO % 0.2 % (0.0-1.0); HEMATOCRIT 43.4 % (42.0-52.0); HEMOGLOBIN 14.2 g/dl (13.5-17.5); IMMATURE GRANULOCYTE % 0.6 % (0-3.0); LYMPH % 4.5 % (24.0-44.0); MEAN CORPUSCULAR HEMOGLOBIN 28.1 pg (27.0-33.0); MEAN CORPUSCULAR HGB CONC 32.7 g/dl (32.0-36.5); MEAN CORPUSCULAR VOLUME 85.8 fl (80.0-96.0); MONO # 1.5 10^3/uL (0.0-0.8); NEUTROPHILS % 87.7 % (36.0-66.0); PLATELET COUNT, AUTOMATED 189 10^3/uL (150-450); RED BLOOD COUNT 5.06 10^6/uL (4.30-6.10); RED CELL DISTRIBUTION WIDTH 14.9 % (11.5-14.5); WHITE BLOOD COUNT 21.7 10^3/uL (4.0-10.0)
[2018-03-19 21:01] LABS: ANION GAP 7 MEQ/L (8-16); BLOOD UREA NITROGEN 30 MG/DL (7-18); CALCIUM LEVEL 8.8 MG/DL (8.8-10.2); CARBON DIOXIDE LEVEL 31 MEQ/L (21-32); CHLORIDE LEVEL 101 MEQ/L (98-107); CREATININE FOR GFR 1.22 MG/DL (0.70-1.30); GLOMERULAR FILTRATION RATE > 60.0 (>49); GLUCOSE, FASTING 111 MG/DL (70-100); POTASSIUM SERUM 4.4 MEQ/L (3.5-5.1); SODIUM LEVEL 139 MEQ/L (136-145)
[2018-03-19 21:05] LABS: LACTIC ACID SEPSIS PROTOCOL 1.6 MMOL/L (0.4-2.0)
[2018-03-19 21:10] LABS: INR 1.15; PROTHROMBIN TIME 14.9 SECONDS (12.4-14.5)
[2018-03-19] MEDS: AMPICILLIN SOD 500 MG in D5W 50 ML IV (21:15)
[2018-03-19] MEDS: ACETAMINOPHEN 325 MG TAB PO (21:53)
[2018-03-19] MEDS ORDERED: HEPARIN SOD (PORCINE) 5000 UNITS/ML VIAL SC (22:00)
[2018-03-19] MEDS ORDERED: SODIUM CHLORIDE IV (22:15)
[2018-03-19] MEDS ORDERED: PIPERACILLIN/TAZOBACTAM SOD 3.375 GM in D5W MINI-BAG PLUS 50 ML IV (22:15)
[2018-03-19] MEDS ORDERED: PERCOCET 5MG/325MG TAB PO (22:30)
[2018-03-19] MEDS: PIPERACILLIN/TAZOBACTAM SOD 3.375 GM in D5W MINI-BAG PLUS 50 ML IV (23:23)
[2018-03-20] MEDS: ROSUVASTATIN 10 MG TAB (CRESTOR) PO ×2 (00:39→22:04)
[2018-03-20] MEDS: ASPIRIN 81 MG ENTERIC TAB PO ×2 (00:39→22:04)
[2018-03-20] MEDS: LORATADINE 10 MG TAB PO ×2 (00:39→22:04)
[2018-03-20] MEDS: NS 1,000 ML IV (00:40)
[2018-03-20] MEDS: ACETAMINOPHEN TAB 650MG DOSE (2X325MG) PO ×3 (00:40→22:13)
[2018-03-20] MEDS: DABIGATRAN ETEXILATE 75 MG CAP (PRADAXA) PO ×3 (01:24→22:05)
[2018-03-20] MEDS: LEVOTHYROXINE 75MCG TABLET (0.075MG) PO (05:45)
[2018-03-20] MEDS: LEVOTHYROXINE 100MCG TABLET (0.1MG) PO (05:45)
[2018-03-20] MEDS: LEVOTHYROXINE 25MCG TABLET (0.025MG) PO (05:46)
[2018-03-20 06:04] LABS: HEMATOCRIT 37.4 % (42.0-52.0); HEMOGLOBIN 12.4 g/dl (13.5-17.5); MEAN CORPUSCULAR HEMOGLOBIN 28.2 pg (27.0-33.0); MEAN CORPUSCULAR HGB CONC 33.2 g/dl (32.0-36.5); PLATELET COUNT, AUTOMATED 168 10^3/uL (150-450)
[2018-03-20 06:23] LABS: ANION GAP 8 MEQ/L (8-16); BLOOD UREA NITROGEN 27 MG/DL (7-18); CALCIUM LEVEL 8.7 MG/DL (8.8-10.2); CARBON DIOXIDE LEVEL 27 MEQ/L (21-32); CHLORIDE LEVEL 102 MEQ/L (98-107); CREATININE FOR GFR 1.11 MG/DL (0.70-1.30); GLOMERULAR FILTRATION RATE > 60.0 (>49); GLUCOSE, FASTING 120 MG/DL (70-100); POTASSIUM SERUM 3.7 MEQ/L (3.5-5.1); SODIUM LEVEL 137 MEQ/L (136-145)
[2018-03-20 08:07] LABS: ERYTHROCYTE SEDIMENTATION RATE 35 mm/hr (0-20)
[2018-03-20] MEDS: METOPROLOL TART 25 MG TABLET PO ×2 (09:54→22:05)
[2018-03-20] MEDS: TAMSULOSIN 0.4 MG CAP PO (09:54)
[2018-03-20] MEDS: DIGOXIN 0.125 MG TAB PO (09:59)
[2018-03-20] MEDS: FINASTERIDE 5 MG TAB PO (10:01)
[2018-03-20] MEDS: CYANOCOBALAMIN 500 MCG TAB PO (10:01)
[2018-03-20] MEDS: PREVNAR 13 VACCINE SYRINGE (CPT CODE:90670) IM (10:08)
[2018-03-20] MEDS: CEFTAROLINE FOSAMIL 600 MG in D5W MINI-BAG PLUS 50 ML IV (14:43)
[2018-03-20] MEDS: MULTIVITAMINS CHILDREN'S CHEWABLE TABLET PO (18:07)
[2018-03-20] MEDS: POTASSIUM CHLORIDE 10 MEQ SR TABLET PO (18:07)
[2018-03-20] MEDS: PANTOPRAZOLE 40MG TAB (PROTONIX) PO (18:07)
[2018-03-20] MEDS: FERROUS GLUCONATE 324 MG TAB PO (18:07)
[2018-03-20] MEDS: LISINOPRIL *2.5 MG* TAB PO (22:06)
[2018-03-20 22:35] LABS: KETONE, URINE AUTO RFX NEGATIVE (NEGATIVE); MUCUS, URINE RFX SMALL (NEGATIVE); NITRITE, URINE AUTO RFX NEGATIVE (NEGATIVE); RBC, URINE AUTO RFX 3 /HPF (0-3); SPECIFIC GRAVITY UR AUTO RFX 1.012 (1.002-1.035); SQUAM EPITHELIAL CELL UR AURFX 0 /HPF (0-6); WBC, URINE AUTO RFX 4 /HPF (0-3)
[2018-03-20 22:45] LABS: LEUKOCYTE ESTERASE UR AUTO RFX TRACE (NEGATIVE)
[2018-03-21] MEDS: CEFTAROLINE FOSAMIL 600 MG in D5W MINI-BAG PLUS 50 ML IV ×2 (00:49→13:49)
[2018-03-21] MEDS: LEVOTHYROXINE 100MCG TABLET (0.1MG) PO (05:53)
[2018-03-21] MEDS: LEVOTHYROXINE 25MCG TABLET (0.025MG) PO (05:54)
[2018-03-21] MEDS: LEVOTHYROXINE 75MCG TABLET (0.075MG) PO (05:54)
[2018-03-21 06:06] LABS: HEMATOCRIT 35.3 % (42.0-52.0); HEMOGLOBIN 11.6 g/dl (13.5-17.5); MEAN CORPUSCULAR HEMOGLOBIN 28.1 pg (27.0-33.0); MEAN CORPUSCULAR HGB CONC 32.9 g/dl (32.0-36.5); MEAN CORPUSCULAR VOLUME 85.5 fl (80.0-96.0); PLATELET COUNT, AUTOMATED 156 10^3/uL (150-450); RED BLOOD COUNT 4.13 10^6/uL (4.30-6.10); RED CELL DISTRIBUTION WIDTH 15.3 % (11.5-14.5); WHITE BLOOD COUNT 12.5 10^3/uL (4.0-10.0)
[2018-03-21 06:20] LABS: ANION GAP 8 MEQ/L (8-16); BLOOD UREA NITROGEN 19 MG/DL (7-18); CALCIUM LEVEL 8.1 MG/DL (8.8-10.2); CARBON DIOXIDE LEVEL 27 MEQ/L (21-32); CHLORIDE LEVEL 105 MEQ/L (98-107); CREATININE FOR GFR 0.92 MG/DL (0.70-1.30); GLOMERULAR FILTRATION RATE > 60.0 (>49); GLUCOSE, FASTING 99 MG/DL (70-100); MAGNESIUM LEVEL 2.2 MG/DL (1.8-2.4); POTASSIUM SERUM 3.7 MEQ/L (3.5-5.1); SODIUM LEVEL 140 MEQ/L (136-145)
[2018-03-21] MEDS: DABIGATRAN ETEXILATE 75 MG CAP (PRADAXA) PO ×2 (08:45→20:33)
[2018-03-21] MEDS: TAMSULOSIN 0.4 MG CAP PO (08:45)
[2018-03-21] MEDS: CYANOCOBALAMIN 500 MCG TAB PO (08:45)
[2018-03-21] MEDS: FINASTERIDE 5 MG TAB PO (08:45)
[2018-03-21] MEDS: METOPROLOL TART 25 MG TABLET PO ×2 (08:48→20:33)
[2018-03-21] MEDS: DIGOXIN 0.125 MG TAB PO (08:49)
[2018-03-21] MEDS: POTASSIUM CHLORIDE 10 MEQ SR TABLET PO (18:59)
[2018-03-21] MEDS: PANTOPRAZOLE 40MG TAB (PROTONIX) PO (18:59)
[2018-03-21] MEDS: FERROUS GLUCONATE 324 MG TAB PO (18:59)
[2018-03-21] MEDS: MULTIVITAMINS CHILDREN'S CHEWABLE TABLET PO (18:59)
[2018-03-21] MEDS: LISINOPRIL *2.5 MG* TAB PO (20:32)
[2018-03-21] MEDS: LORATADINE 10 MG TAB PO (20:32)
[2018-03-21] MEDS: ROSUVASTATIN 10 MG TAB (CRESTOR) PO (20:32)
[2018-03-21] MEDS: ASPIRIN 81 MG ENTERIC TAB PO (20:33)
[2018-03-22] MEDS: CEFTAROLINE FOSAMIL 600 MG in D5W MINI-BAG PLUS 50 ML IV ×2 (00:59→13:15)
[2018-03-22] MEDS: LEVOTHYROXINE 25MCG TABLET (0.025MG) PO (05:37)
[2018-03-22] MEDS: LEVOTHYROXINE 100MCG TABLET (0.1MG) PO (05:37)
[2018-03-22] MEDS: LEVOTHYROXINE 75MCG TABLET (0.075MG) PO (05:37)
[2018-03-22 07:08] LABS: HEMATOCRIT 34.6 % (42.0-52.0); HEMOGLOBIN 11.3 g/dl (13.5-17.5); MEAN CORPUSCULAR HEMOGLOBIN 28.2 pg (27.0-33.0); MEAN CORPUSCULAR HGB CONC 32.7 g/dl (32.0-36.5); MEAN CORPUSCULAR VOLUME 86.3 fl (80.0-96.0); PLATELET COUNT, AUTOMATED 157 10^3/uL (150-450); RED BLOOD COUNT 4.01 10^6/uL (4.30-6.10); RED CELL DISTRIBUTION WIDTH 15.1 % (11.5-14.5); WHITE BLOOD COUNT 8.8 10^3/uL (4.0-10.0)
[2018-03-22 07:15] LABS: ANION GAP 8 MEQ/L (8-16); BLOOD UREA NITROGEN 15 MG/DL (7-18); CARBON DIOXIDE LEVEL 27 MEQ/L (21-32); CHLORIDE LEVEL 106 MEQ/L (98-107); CREATININE FOR GFR 0.89 MG/DL (0.70-1.30); GLOMERULAR FILTRATION RATE > 60.0 (>49); GLUCOSE, FASTING 89 MG/DL (70-100); MAGNESIUM LEVEL 2.2 MG/DL (1.8-2.4); POTASSIUM SERUM 3.9 MEQ/L (3.5-5.1); SODIUM LEVEL 141 MEQ/L (136-145)
[2018-03-22] MEDS: FINASTERIDE 5 MG TAB PO (08:28)
[2018-03-22] MEDS: CYANOCOBALAMIN 500 MCG TAB PO (08:28)
[2018-03-22] MEDS: DIGOXIN 0.125 MG TAB PO (08:28)
[2018-03-22] MEDS: TAMSULOSIN 0.4 MG CAP PO (08:28)
[2018-03-22] MEDS: DABIGATRAN ETEXILATE 75 MG CAP (PRADAXA) PO ×2 (08:28→20:20)
[2018-03-22] MEDS: METOPROLOL TART 25 MG TABLET PO ×2 (08:29→20:20)
[2018-03-22] MEDS: MULTIVITAMINS CHILDREN'S CHEWABLE TABLET PO (17:07)
[2018-03-22] MEDS: PANTOPRAZOLE 40MG TAB (PROTONIX) PO (17:07)
[2018-03-22] MEDS: POTASSIUM CHLORIDE 10 MEQ SR TABLET PO (17:07)
[2018-03-22] MEDS: FERROUS GLUCONATE 324 MG TAB PO (17:07)
[2018-03-22] MEDS: ROSUVASTATIN 10 MG TAB (CRESTOR) PO (20:20)
[2018-03-22] MEDS: LORATADINE 10 MG TAB PO (20:20)
[2018-03-22] MEDS: LISINOPRIL *2.5 MG* TAB PO (20:21)
[2018-03-22] MEDS: ASPIRIN 81 MG ENTERIC TAB PO (20:21)
[2018-03-23] MEDS: CEFTAROLINE FOSAMIL 600 MG in D5W MINI-BAG PLUS 50 ML IV ×2 (00:38→12:59)
[2018-03-23] MEDS: LEVOTHYROXINE 75MCG TABLET (0.075MG) PO (06:09)
[2018-03-23] MEDS: LEVOTHYROXINE 25MCG TABLET (0.025MG) PO (06:09)
[2018-03-23] MEDS: LEVOTHYROXINE 100MCG TABLET (0.1MG) PO (06:09)
[2018-03-23 06:41] LABS: HEMATOCRIT 36.1 % (42.0-52.0); HEMOGLOBIN 11.6 g/dl (13.5-17.5); MEAN CORPUSCULAR HGB CONC 32.1 g/dl (32.0-36.5); PLATELET COUNT, AUTOMATED 173 10^3/uL (150-450); RED BLOOD COUNT 4.15 10^6/uL (4.30-6.10); RED CELL DISTRIBUTION WIDTH 15.1 % (11.5-14.5); WHITE BLOOD COUNT 7.9 10^3/uL (4.0-10.0)
[2018-03-23 07:07] LABS: ANION GAP 8 MEQ/L (8-16); BLOOD UREA NITROGEN 14 MG/DL (7-18); C REACTIVE PROTEIN QUANTITATIV 5.58 MG/DL (0.00-0.30); CARBON DIOXIDE LEVEL 26 MEQ/L (21-32); CHLORIDE LEVEL 107 MEQ/L (98-107); CREATININE FOR GFR 0.87 MG/DL (0.70-1.30); GLOMERULAR FILTRATION RATE > 60.0 (>49); GLUCOSE, FASTING 86 MG/DL (70-100); MAGNESIUM LEVEL 2.3 MG/DL (1.8-2.4); SODIUM LEVEL 141 MEQ/L (136-145)
[2018-03-23] MEDS: TAMSULOSIN 0.4 MG CAP PO (08:19)
[2018-03-23] MEDS: FINASTERIDE 5 MG TAB PO (08:19)
[2018-03-23] MEDS: CYANOCOBALAMIN 500 MCG TAB PO (08:20)
[2018-03-23] MEDS: METOPROLOL TART 25 MG TABLET PO ×2 (08:20→20:37)
[2018-03-23] MEDS: DABIGATRAN ETEXILATE 75 MG CAP (PRADAXA) PO ×2 (08:20→20:36)
[2018-03-23] MEDS: DIGOXIN 0.125 MG TAB PO (08:20)
[2018-03-23] MEDS: MULTIVITAMINS CHILDREN'S CHEWABLE TABLET PO (17:32)
[2018-03-23] MEDS: FERROUS GLUCONATE 324 MG TAB PO (17:32)
[2018-03-23] MEDS: PANTOPRAZOLE 40MG TAB (PROTONIX) PO (17:32)
[2018-03-23] MEDS: POTASSIUM CHLORIDE 10 MEQ SR TABLET PO (17:32)
[2018-03-23] MEDS: ASPIRIN 81 MG ENTERIC TAB PO (20:37)
[2018-03-23] MEDS: ROSUVASTATIN 10 MG TAB (CRESTOR) PO (20:37)
[2018-03-23] MEDS: LISINOPRIL *2.5 MG* TAB PO (20:37)
[2018-03-23] MEDS: LORATADINE 10 MG TAB PO (20:37)
[2018-03-24] MEDS: CEFTAROLINE FOSAMIL 600 MG in D5W MINI-BAG PLUS 50 ML IV ×2 (00:39→12:45)
[2018-03-24] MEDS: LEVOTHYROXINE 25MCG TABLET (0.025MG) PO (05:54)
[2018-03-24] MEDS: LEVOTHYROXINE 75MCG TABLET (0.075MG) PO (05:54)
[2018-03-24] MEDS: LEVOTHYROXINE 100MCG TABLET (0.1MG) PO (05:54)
[2018-03-24 06:12] LABS: HEMATOCRIT 36.6 % (42.0-52.0); HEMOGLOBIN 11.9 g/dl (13.5-17.5); MEAN CORPUSCULAR HEMOGLOBIN 28.3 pg (27.0-33.0); MEAN CORPUSCULAR HGB CONC 32.5 g/dl (32.0-36.5); MEAN CORPUSCULAR VOLUME 87.1 fl (80.0-96.0); PLATELET COUNT, AUTOMATED 183 10^3/uL (150-450); WHITE BLOOD COUNT 9.3 10^3/uL (4.0-10.0)
[2018-03-24 06:32] LABS: ANION GAP 7 MEQ/L (8-16); BLOOD UREA NITROGEN 15 MG/DL (7-18); C REACTIVE PROTEIN QUANTITATIV 2.77 MG/DL (0.00-0.30); CALCIUM LEVEL 8.3 MG/DL (8.8-10.2); CARBON DIOXIDE LEVEL 28 MEQ/L (21-32); CHLORIDE LEVEL 106 MEQ/L (98-107); CREATININE FOR GFR 0.94 MG/DL (0.70-1.30); GLOMERULAR FILTRATION RATE > 60.0 (>49); GLUCOSE, FASTING 87 MG/DL (70-100); POTASSIUM SERUM 4.1 MEQ/L (3.5-5.1); SODIUM LEVEL 141 MEQ/L (136-145)
[2018-03-24] MEDS: TAMSULOSIN 0.4 MG CAP PO (09:36)
[2018-03-24] MEDS: DIGOXIN 0.125 MG TAB PO (09:37)
[2018-03-24] MEDS: METOPROLOL TART 25 MG TABLET PO ×2 (09:37→20:46)
[2018-03-24] MEDS: DABIGATRAN ETEXILATE 75 MG CAP (PRADAXA) PO ×2 (09:37→20:38)
[2018-03-24] MEDS: FINASTERIDE 5 MG TAB PO (09:37)
[2018-03-24] MEDS: CYANOCOBALAMIN 500 MCG TAB PO (09:37)
[2018-03-24] MEDS: PANTOPRAZOLE 40MG TAB (PROTONIX) PO (18:06)
[2018-03-24] MEDS: MULTIVITAMINS CHILDREN'S CHEWABLE TABLET PO (18:06)
[2018-03-24] MEDS: FERROUS GLUCONATE 324 MG TAB PO (18:06)
[2018-03-24] MEDS: POTASSIUM CHLORIDE 10 MEQ SR TABLET PO (18:07)
[2018-03-24] MEDS: LORATADINE 10 MG TAB PO (20:39)
[2018-03-24] MEDS: ROSUVASTATIN 10 MG TAB (CRESTOR) PO (20:39)
[2018-03-24] MEDS: ASPIRIN 81 MG ENTERIC TAB PO (20:39)
[2018-03-24] MEDS: LISINOPRIL *2.5 MG* TAB PO (20:47)
[2018-03-25] MEDS: CEFTAROLINE FOSAMIL 600 MG in D5W MINI-BAG PLUS 50 ML IV (00:38)
[2018-03-25] MEDS: LEVOTHYROXINE 100MCG TABLET (0.1MG) PO (05:52)
[2018-03-25] MEDS: LEVOTHYROXINE 25MCG TABLET (0.025MG) PO (05:52)
[2018-03-25] MEDS: LEVOTHYROXINE 75MCG TABLET (0.075MG) PO (05:52)
[2018-03-25 06:19] LABS: HEMATOCRIT 36.4 % (42.0-52.0); HEMOGLOBIN 11.6 g/dl (13.5-17.5); MEAN CORPUSCULAR HEMOGLOBIN 27.8 pg (27.0-33.0); MEAN CORPUSCULAR HGB CONC 31.9 g/dl (32.0-36.5); MEAN CORPUSCULAR VOLUME 87.3 fl (80.0-96.0); PLATELET COUNT, AUTOMATED 178 10^3/uL (150-450); RED BLOOD COUNT 4.17 10^6/uL (4.30-6.10); RED CELL DISTRIBUTION WIDTH 14.7 % (11.5-14.5); WHITE BLOOD COUNT 10.4 10^3/uL (4.0-10.0)
[2018-03-25 06:48] LABS: ANION GAP 8 MEQ/L (8-16); BLOOD UREA NITROGEN 15 MG/DL (7-18); CALCIUM LEVEL 8.3 MG/DL (8.8-10.2); CARBON DIOXIDE LEVEL 27 MEQ/L (21-32); CHLORIDE LEVEL 106 MEQ/L (98-107); CREATININE FOR GFR 1.02 MG/DL (0.70-1.30); GLOMERULAR FILTRATION RATE > 60.0 (>49); GLUCOSE, FASTING 83 MG/DL (70-100); MAGNESIUM LEVEL 2.1 MG/DL (1.8-2.4); POTASSIUM SERUM 4.1 MEQ/L (3.5-5.1); SODIUM LEVEL 141 MEQ/L (136-145)
[2018-03-25] MEDS: DABIGATRAN ETEXILATE 75 MG CAP (PRADAXA) PO (08:47)
[2018-03-25] MEDS: TAMSULOSIN 0.4 MG CAP PO (08:49)
[2018-03-25] MEDS: CYANOCOBALAMIN 500 MCG TAB PO (08:49)
[2018-03-25] MEDS: CEFDINIR 300 MG CAP (OMNICEF) PO (08:49)
[2018-03-25] MEDS: DOXYCYCLINE HYCLATE 100 MG TAB PO (08:49)
[2018-03-25] MEDS: DIGOXIN 0.125 MG TAB PO (08:50)
[2018-03-25] MEDS: FINASTERIDE 5 MG TAB PO (08:50)
[2018-03-25] MEDS: METOPROLOL TART 25 MG TABLET PO (08:51)
== END 2018-03-25 12:34 | disposition home or self-care (01) | DRG 854 ==
LOC: M MSPAV 03-20 00:05 → M ED 17:51 → M ED INP 22:17
PROC: 0JBR0ZZ Excision of Left Foot Subcutaneous Tissue and Fascia, Open Approach (ICD-10-PCS; principal; 2018-03-24)
DX: A41.9 Sepsis, unspecified organism (principal); L03.115 Cellulitis of right lower limb; I50.22 Chronic systolic (congestive) heart failure; Z68.43 Body mass index [BMI] 50.0-59.9, adult; L97.929 Non-pressure chronic ulcer of unspecified part of left lower leg with unspecified severity; E66.01 Morbid (severe) obesity due to excess calories; N40.0 Benign prostatic hyperplasia without lower urinary tract symptoms; I87.8 Other specified disorders of veins; I48.2 Chronic atrial fibrillation; E03.9 Hypothyroidism, unspecified; G47.33 Obstructive sleep apnea (adult) (pediatric); E78.5 Hyperlipidemia, unspecified; I25.10 Atherosclerotic heart disease of native coronary artery without angina pectoris; I25.2 Old myocardial infarction; Z95.1 Presence of aortocoronary bypass graft; Z98.84 Bariatric surgery status; Z95.810 Presence of automatic (implantable) cardiac defibrillator; Z87.891 Personal history of nicotine dependence; Z79.82 Long term (current) use of aspirin; Z79.01 Long term (current) use of anticoagulants; Z79.899 Other long term (current) drug therapy

== ENCOUNTER 2018-05-29 11:26 | Observation (INO) | payer MEDICARE, BC, OTHER ==
[2018-05-29] MEDS: NS 1,000 ML IV ×2 (13:38→15:58)
[2018-05-29 13:48] LABS: BASO % 0.2 % (0.0-1.0); EOS % 0.1 % (0.0-3.0); HEMATOCRIT 38.9 % (42.0-52.0); HEMOGLOBIN 12.7 g/dl (13.5-17.5); IMMATURE GRANULOCYTE % 0.7 % (0-3.0); LYMPH # 0.6 10^3/uL (1.5-4.5); LYMPH % 4.6 % (24.0-44.0); MEAN CORPUSCULAR HEMOGLOBIN 28.5 pg (27.0-33.0); MEAN CORPUSCULAR HGB CONC 32.6 g/dl (32.0-36.5); MEAN CORPUSCULAR VOLUME 87.2 fl (80.0-96.0); MONO # 1.5 10^3/uL (0.0-0.8); MONO % 11.5 % (0.0-5.0); NEUTROPHILS # 11.1 10^3/uL (1.8-7.7); NEUTROPHILS % 82.9 % (36.0-66.0); PLATELET COUNT, AUTOMATED 172 10^3/uL (150-450); RED BLOOD COUNT 4.46 10^6/uL (4.30-6.10); RED CELL DISTRIBUTION WIDTH 15.2 % (11.5-14.5); WHITE BLOOD COUNT 13.3 10^3/uL (4.0-10.0)
[2018-05-29 14:11] LABS: LACTIC ACID SEPSIS PROTOCOL 1.3 MMOL/L (0.4-2.0)
[2018-05-29 14:11] LABS: ALBUMIN 3.1 GM/DL (3.2-5.2); ALBUMIN/GLOBULIN RATIO 0.84 (1.00-1.93); ALKALINE PHOSPHATASE 106 U/L (45-117); ALT/SGPT 52 U/L (12-78); ANION GAP 10 MEQ/L (8-16); AST/SGOT 38 U/L (7-37); BILIRUBIN,DIRECT 0.6 MG/DL (0.0-0.2); BILIRUBIN,TOTAL 1.5 MG/DL (0.2-1.0); BLOOD UREA NITROGEN 18 MG/DL (7-18); CALCIUM LEVEL 8.5 MG/DL (8.8-10.2); CARBON DIOXIDE LEVEL 27 MEQ/L (21-32); CHLORIDE LEVEL 101 MEQ/L (98-107); CREATININE FOR GFR 1.12 MG/DL (0.70-1.30); GLOMERULAR FILTRATION RATE > 60.0 (>49); GLUCOSE, FASTING 106 MG/DL (70-100); POTASSIUM SERUM 3.9 MEQ/L (3.5-5.1); SODIUM LEVEL 138 MEQ/L (136-145); TOTAL PROTEIN 6.8 GM/DL (6.4-8.2)
[2018-05-29] MEDS: PIPERACILLIN/TAZOBACTAM SOD 4.5 GM in D5W MINI-BAG PLUS 50 ML IV (14:22)
[2018-05-29] MEDS: ACETAMINOPHEN TAB 650MG DOSE (2X325MG) PO ×2 (15:58→21:12)
[2018-05-29] MEDS ORDERED: NITROGLYCERIN 0.4 MG SUBL TABLET SL (16:15)
[2018-05-29] MEDS: AMPICILLIN SOD/SULBACTAM SOD 3 GM in D5W MINI-BAG PLUS 100 ML IV ×2 (17:08→23:56)
[2018-05-29 19:58] LABS: BEDSIDE GLUCOSE 127 MG/DL (80-115)
[2018-05-29] MEDS: LORATADINE 10 MG TAB PO (21:03)
[2018-05-29] MEDS: ROSUVASTATIN 10 MG TAB (CRESTOR) PO (21:03)
[2018-05-29] MEDS: DABIGATRAN ETEXILATE 75 MG CAP (PRADAXA) PO ×2 (21:04→22:47)
[2018-05-29] MEDS: PANTOPRAZOLE 40MG TAB (PROTONIX) PO (21:04)
[2018-05-29] MEDS: ASPIRIN 81 MG ENTERIC TAB PO (21:04)
[2018-05-29] MEDS: POTASSIUM CHLORIDE 10 MEQ SR TABLET PO (21:04)
[2018-05-29] MEDS: VANCOMYCIN HCL 1,000 MG, VIAL MATE ADAPTER 1 EACH in D5W 250 ML IV ×3 (21:09→23:56)
[2018-05-29] MEDS: AMIODARONE 200 MG TAB (PACERONE) PO (21:10)
[2018-05-29] MEDS: METOPROLOL TART 25 MG TABLET PO (21:12)
[2018-05-29] MEDS: LISINOPRIL *2.5 MG* TAB PO (21:28)
[2018-05-30] MEDS: NS 1,000 ML IV (05:05)
[2018-05-30] MEDS: AMPICILLIN SOD/SULBACTAM SOD 3 GM in D5W MINI-BAG PLUS 100 ML IV ×4 (05:05→22:39)
[2018-05-30] MEDS ORDERED: LEVOTHYROXINE 25MCG TABLET (0.025MG) PO (06:00)
[2018-05-30 06:18] LABS: BASO % 0.2 % (0.0-1.0); EOS % 0.1 % (0.0-3.0); HEMATOCRIT 36.3 % (42.0-52.0); HEMOGLOBIN 11.9 g/dl (13.5-17.5); IMMATURE GRANULOCYTE % 0.6 % (0-3.0); LYMPH # 0.8 10^3/uL (1.5-4.5); LYMPH % 7.9 % (24.0-44.0); MEAN CORPUSCULAR HEMOGLOBIN 28.5 pg (27.0-33.0); MEAN CORPUSCULAR HGB CONC 32.8 g/dl (32.0-36.5); MEAN CORPUSCULAR VOLUME 86.8 fl (80.0-96.0); MONO # 1.2 10^3/uL (0.0-0.8); MONO % 11.9 % (0.0-5.0); NEUTROPHILS # 8.2 10^3/uL (1.8-7.7); NEUTROPHILS % 79.3 % (36.0-66.0); PLATELET COUNT, AUTOMATED 143 10^3/uL (150-450); RED BLOOD COUNT 4.18 10^6/uL (4.30-6.10); RED CELL DISTRIBUTION WIDTH 15.2 % (11.5-14.5); WHITE BLOOD COUNT 10.4 10^3/uL (4.0-10.0)
[2018-05-30] MEDS: METOPROLOL TART 25 MG TABLET PO ×2 (06:27→21:13)
[2018-05-30 06:43] LABS: ALBUMIN 2.5 GM/DL (3.2-5.2); ALKALINE PHOSPHATASE 94 U/L (45-117); ALT/SGPT 55 U/L (12-78); ANION GAP 9 MEQ/L (8-16); AST/SGOT 39 U/L (7-37); BILIRUBIN,TOTAL 1.1 MG/DL (0.2-1.0); BLOOD UREA NITROGEN 16 MG/DL (7-18); CALCIUM LEVEL 8.2 MG/DL (8.8-10.2); CARBON DIOXIDE LEVEL 26 MEQ/L (21-32); CHLORIDE LEVEL 101 MEQ/L (98-107); CREATININE FOR GFR 1.05 MG/DL (0.70-1.30); GLOMERULAR FILTRATION RATE > 60.0 (>49); GLUCOSE, FASTING 109 MG/DL (70-100); POTASSIUM SERUM 3.6 MEQ/L (3.5-5.1); SODIUM LEVEL 136 MEQ/L (136-145); TOTAL PROTEIN 6.7 GM/DL (6.4-8.2)
[2018-05-30] MEDS: VANCOMYCIN HCL 1,000 MG, VIAL MATE ADAPTER 1 EACH in D5W 250 ML IV ×3 (08:16→23:52)
[2018-05-30] MEDS ORDERED: TOBRAMYCIN SULF 1.2 GM VIAL As Ordered (09:36)
[2018-05-30] MEDS ORDERED: LIDOCAINE 2% INJ 100 MG/5 ML SDV (FOR ANES.) As Ordered (09:38)
[2018-05-30] MEDS ORDERED: MIDAZOLAM INJ 2 MG/2 ML VIAL (J2250) As Ordered (09:38)
[2018-05-30] MEDS ORDERED: fentaNYL 100 MCG/2 ML INJECTION (J3010) As Ordered (09:38)
[2018-05-30] MEDS ORDERED: PROPOFOL 200 MG/20 ML VIAL As Ordered ×4 (09:38→10:32)
[2018-05-30] MEDS ORDERED: BUPIVACAINE HCL 0.5% 10 ML VIAL As Ordered (09:40)
[2018-05-30] MEDS ORDERED: LIDOCAINE 2% MDV 20 ML VIAL As Ordered (09:40)
[2018-05-30] MEDS ORDERED: ePHEDrine SULFATE 25 MG/5 ML(5MG/ML) SYRINGE As Ordered (10:17)
[2018-05-30] MEDS ORDERED: PHENYLephrine HCL 500 MCG/5 ML (100MCG/ML) SYRINGE (J2370) As Ordered (10:17)
[2018-05-30] MEDS ORDERED: KETOROLAC 60 MG/2 ML VIAL (J1885) As Ordered (10:52)
[2018-05-30] MEDS ORDERED: fentaNYL 100 MCG/2 ML INJECTION (J3010) IV (11:45)
[2018-05-30] MEDS ORDERED: ONDANSETRON 4MG/2ML VIAL (J2405) IV (11:45)
[2018-05-30] MEDS: INFLUENZA QUADRIVALENT PF VACCINE 0.5ML SYRINGE (90686) IM (13:18)
[2018-05-30] MEDS: SPIRONOLACTONE 12.5MG PER 1/2 TABLET PO (13:21)
[2018-05-30] MEDS: TAMSULOSIN 0.4 MG CAP PO (13:22)
[2018-05-30] MEDS: DIGOXIN 0.125 MG TAB PO (13:22)
[2018-05-30] MEDS: FINASTERIDE 5 MG TAB PO (13:22)
[2018-05-30] MEDS: DABIGATRAN ETEXILATE 75 MG CAP (PRADAXA) PO (13:23)
[2018-05-30] MEDS: FUROSEMIDE 40 MG TAB PO (13:23)
[2018-05-30] MEDS: CYANOCOBALAMIN 500 MCG TAB PO (13:25)
[2018-05-30] MEDS: LEVOTHYROXINE 150MCG TABLET (0.15MG) PO (13:25)
[2018-05-30] MEDS: LEVOTHYROXINE 37.5MCG PER 1/2TAB (0.0375MG) PO (13:26)
[2018-05-30] MEDS: AMIODARONE 200 MG TAB (PACERONE) PO ×2 (13:27→21:12)
[2018-05-30] MEDS: VITAMIN D 1,000 INTERNATIONAL UNITS TABLET PO (13:27)
[2018-05-30] MEDS: ROSUVASTATIN 10 MG TAB (CRESTOR) PO (21:12)
[2018-05-30] MEDS: POTASSIUM CHLORIDE 10 MEQ SR TABLET PO (21:12)
[2018-05-30] MEDS: ASPIRIN 81 MG ENTERIC TAB PO (21:13)
[2018-05-30] MEDS: LISINOPRIL *2.5 MG* TAB PO (21:13)
[2018-05-30] MEDS: LORATADINE 10 MG TAB PO (21:14)
[2018-05-30] MEDS: PANTOPRAZOLE 40MG TAB (PROTONIX) PO (21:14)
[2018-05-31 00:07] LABS: VANCOMYCIN LEVEL TROUGH 13.1 UG/ML (10.0-20.0)
[2018-05-31] MEDS: LEVOTHYROXINE 150MCG TABLET (0.15MG) PO (05:21)
[2018-05-31] MEDS: LEVOTHYROXINE 37.5MCG PER 1/2TAB (0.0375MG) PO (05:21)
[2018-05-31] MEDS: AMPICILLIN SOD/SULBACTAM SOD 3 GM in D5W MINI-BAG PLUS 100 ML IV ×4 (05:21→22:09)
[2018-05-31 07:50] LABS: BASO % 0.4 % (0.0-1.0); EOS # 0.3 10^3/uL (0.0-0.50); EOS % 3.3 % (0.0-3.0); HEMATOCRIT 35.4 % (42.0-52.0); HEMOGLOBIN 11.6 g/dl (13.5-17.5); IMMATURE GRANULOCYTE % 0.5 % (0-3.0); LYMPH # 1.1 10^3/uL (1.5-4.5); LYMPH % 13.2 % (24.0-44.0); MEAN CORPUSCULAR HGB CONC 32.8 g/dl (32.0-36.5); MEAN CORPUSCULAR VOLUME 85.5 fl (80.0-96.0); MONO # 1.2 10^3/uL (0.0-0.8); MONO % 14.8 % (0.0-5.0); NEUTROPHILS # 5.6 10^3/uL (1.8-7.7); NEUTROPHILS % 67.8 % (36.0-66.0); PLATELET COUNT, AUTOMATED 155 10^3/uL (150-450); RED BLOOD COUNT 4.14 10^6/uL (4.30-6.10); RED CELL DISTRIBUTION WIDTH 15.2 % (11.5-14.5); WHITE BLOOD COUNT 8.2 10^3/uL (4.0-10.0)
[2018-05-31] MEDS: VANCOMYCIN HCL 1,000 MG, VIAL MATE ADAPTER 1 EACH in D5W 250 ML IV ×3 (08:15→23:55)
[2018-05-31] MEDS: FINASTERIDE 5 MG TAB PO (08:18)
[2018-05-31] MEDS: METOPROLOL TART 25 MG TABLET PO ×2 (08:18→21:37)
[2018-05-31] MEDS: AMIODARONE 200 MG TAB (PACERONE) PO ×2 (08:18→21:36)
[2018-05-31] MEDS: VITAMIN D 1,000 INTERNATIONAL UNITS TABLET PO (08:18)
[2018-05-31] MEDS: SPIRONOLACTONE 12.5MG PER 1/2 TABLET PO (08:18)
[2018-05-31] MEDS: TAMSULOSIN 0.4 MG CAP PO (08:19)
[2018-05-31] MEDS: DABIGATRAN ETEXILATE 75 MG CAP (PRADAXA) PO ×2 (08:19→21:37)
[2018-05-31] MEDS: CYANOCOBALAMIN 500 MCG TAB PO (08:19)
[2018-05-31] MEDS: DIGOXIN 0.125 MG TAB PO (08:19)
[2018-05-31] MEDS: FUROSEMIDE 40 MG TAB PO (08:19)
[2018-05-31 09:20] LABS: ALBUMIN 2.5 GM/DL (3.2-5.2); ALBUMIN/GLOBULIN RATIO 0.58 (1.00-1.93); ALKALINE PHOSPHATASE 97 U/L (45-117); ALT/SGPT 58 U/L (12-78); ANION GAP 7 MEQ/L (8-16); AST/SGOT 40 U/L (7-37); BILIRUBIN,TOTAL 0.7 MG/DL (0.2-1.0); BLOOD UREA NITROGEN 18 MG/DL (7-18); CALCIUM LEVEL 8.2 MG/DL (8.8-10.2); CARBON DIOXIDE LEVEL 27 MEQ/L (21-32); CHLORIDE LEVEL 103 MEQ/L (98-107); CREATININE FOR GFR 1.03 MG/DL (0.70-1.30); GLOMERULAR FILTRATION RATE > 60.0 (>49); GLUCOSE, FASTING 95 MG/DL (70-100); SODIUM LEVEL 137 MEQ/L (136-145); TOTAL PROTEIN 6.8 GM/DL (6.4-8.2)
[2018-05-31 15:35] LABS: VANCOMYCIN LEVEL TROUGH 13.8 UG/ML (10.0-20.0)
[2018-05-31] MEDS: PANTOPRAZOLE 40MG TAB (PROTONIX) PO (21:37)
[2018-05-31] MEDS: ASPIRIN 81 MG ENTERIC TAB PO (21:37)
[2018-05-31] MEDS: ROSUVASTATIN 10 MG TAB (CRESTOR) PO (21:37)
[2018-05-31] MEDS: POTASSIUM CHLORIDE 10 MEQ SR TABLET PO (21:37)
[2018-05-31] MEDS: LORATADINE 10 MG TAB PO (21:37)
[2018-05-31] MEDS: LISINOPRIL *2.5 MG* TAB PO (21:38)
[2018-06-01] MEDS: LEVOTHYROXINE 37.5MCG PER 1/2TAB (0.0375MG) PO (05:38)
[2018-06-01] MEDS: LEVOTHYROXINE 150MCG TABLET (0.15MG) PO (05:38)
[2018-06-01] MEDS: AMPICILLIN SOD/SULBACTAM SOD 3 GM in D5W MINI-BAG PLUS 100 ML IV ×2 (05:38→11:35)
[2018-06-01 07:36] LABS: BASO % 0.4 % (0.0-1.0); EOS # 0.3 10^3/uL (0.0-0.50); EOS % 4.3 % (0.0-3.0); HEMATOCRIT 33.5 % (42.0-52.0); IMMATURE GRANULOCYTE % 0.6 % (0-3.0); LYMPH # 1.2 10^3/uL (1.5-4.5); LYMPH % 18.2 % (24.0-44.0); MEAN CORPUSCULAR HEMOGLOBIN 28.4 pg (27.0-33.0); MEAN CORPUSCULAR HGB CONC 32.8 g/dl (32.0-36.5); MEAN CORPUSCULAR VOLUME 86.3 fl (80.0-96.0); MONO # 0.9 10^3/uL (0.0-0.8); NEUTROPHILS # 4.3 10^3/uL (1.8-7.7); NEUTROPHILS % 63.5 % (36.0-66.0); PLATELET COUNT, AUTOMATED 153 10^3/uL (150-450); RED BLOOD COUNT 3.88 10^6/uL (4.30-6.10); RED CELL DISTRIBUTION WIDTH 15.2 % (11.5-14.5); WHITE BLOOD COUNT 6.8 10^3/uL (4.0-10.0)
[2018-06-01 08:37] LABS: BLOOD UREA NITROGEN 13 MG/DL (7-18); CREATININE FOR GFR 0.92 MG/DL (0.70-1.30); GLOMERULAR FILTRATION RATE > 60.0 (>49); GLUCOSE, FASTING 85 MG/DL (70-100)
[2018-06-01 08:38] LABS: ALBUMIN 2.5 GM/DL (3.2-5.2); ALBUMIN/GLOBULIN RATIO 0.76 (1.00-1.93); ALKALINE PHOSPHATASE 115 U/L (45-117); ALT/SGPT 92 U/L (12-78); ANION GAP 9 MEQ/L (8-16); AST/SGOT 70 U/L (7-37); BILIRUBIN,TOTAL 0.4 MG/DL (0.2-1.0); C REACTIVE PROTEIN QUANTITATIV 9.77 MG/DL (0.00-0.30); CALCIUM LEVEL 7.9 MG/DL (8.8-10.2); CARBON DIOXIDE LEVEL 27 MEQ/L (21-32); CHLORIDE LEVEL 107 MEQ/L (98-107); POTASSIUM SERUM 3.7 MEQ/L (3.5-5.1); SODIUM LEVEL 143 MEQ/L (136-145); TOTAL PROTEIN 5.8 GM/DL (6.4-8.2)
[2018-06-01] MEDS: VANCOMYCIN HCL 1,000 MG, VIAL MATE ADAPTER 1 EACH in D5W 250 ML IV ×2 (09:50→17:27)
[2018-06-01] MEDS: SPIRONOLACTONE 12.5MG PER 1/2 TABLET PO (09:51)
[2018-06-01] MEDS: METOPROLOL TART 25 MG TABLET PO ×2 (09:52→21:35)
[2018-06-01] MEDS: AMIODARONE 200 MG TAB (PACERONE) PO ×2 (09:52→21:36)
[2018-06-01] MEDS: TAMSULOSIN 0.4 MG CAP PO (09:52)
[2018-06-01] MEDS: DIGOXIN 0.125 MG TAB PO (09:53)
[2018-06-01] MEDS: CYANOCOBALAMIN 500 MCG TAB PO (09:53)
[2018-06-01] MEDS: VITAMIN D 1,000 INTERNATIONAL UNITS TABLET PO (09:53)
[2018-06-01] MEDS: FUROSEMIDE 40 MG TAB PO (09:54)
[2018-06-01] MEDS: FINASTERIDE 5 MG TAB PO (09:54)
[2018-06-01] MEDS: DABIGATRAN ETEXILATE 75 MG CAP (PRADAXA) PO ×2 (11:11→21:35)
[2018-06-01] MEDS: PANTOPRAZOLE 40MG TAB (PROTONIX) PO (21:35)
[2018-06-01] MEDS: ROSUVASTATIN 10 MG TAB (CRESTOR) PO (21:35)
[2018-06-01] MEDS: POTASSIUM CHLORIDE 10 MEQ SR TABLET PO (21:36)
[2018-06-01] MEDS: LORATADINE 10 MG TAB PO (21:36)
[2018-06-01] MEDS: LISINOPRIL *2.5 MG* TAB PO (21:36)
[2018-06-01] MEDS: ASPIRIN 81 MG ENTERIC TAB PO (21:36)
[2018-06-02] MEDS: VANCOMYCIN HCL 1,000 MG, VIAL MATE ADAPTER 1 EACH in D5W 250 ML IV ×3 (00:25→15:46)
[2018-06-02] MEDS: ACETAMINOPHEN TAB 650MG DOSE (2X325MG) PO (00:30)
[2018-06-02] MEDS: LEVOTHYROXINE 37.5MCG PER 1/2TAB (0.0375MG) PO (05:50)
[2018-06-02] MEDS: LEVOTHYROXINE 150MCG TABLET (0.15MG) PO (05:50)
[2018-06-02 06:58] LABS: BASO % 0.3 % (0.0-1.0); EOS # 0.3 10^3/uL (0.0-0.50); EOS % 4.7 % (0.0-3.0); HEMATOCRIT 34.7 % (42.0-52.0); HEMOGLOBIN 11.1 g/dl (13.5-17.5); IMMATURE GRANULOCYTE % 0.9 % (0-3.0); LYMPH # 1.5 10^3/uL (1.5-4.5); LYMPH % 22.9 % (24.0-44.0); MEAN CORPUSCULAR HEMOGLOBIN 28.4 pg (27.0-33.0); MEAN CORPUSCULAR VOLUME 88.7 fl (80.0-96.0); MONO # 0.7 10^3/uL (0.0-0.8); MONO % 11.1 % (0.0-5.0); NEUTROPHILS # 3.9 10^3/uL (1.8-7.7); NEUTROPHILS % 60.1 % (36.0-66.0); PLATELET COUNT, AUTOMATED 153 10^3/uL (150-450); RED BLOOD COUNT 3.91 10^6/uL (4.30-6.10); WHITE BLOOD COUNT 6.4 10^3/uL (4.0-10.0)
[2018-06-02 07:22] LABS: ALBUMIN 2.6 GM/DL (3.2-5.2); ALBUMIN/GLOBULIN RATIO 0.68 (1.00-1.93); ALKALINE PHOSPHATASE 121 U/L (45-117); ALT/SGPT 93 U/L (12-78); ANION GAP 10 MEQ/L (8-16); AST/SGOT 54 U/L (7-37); BILIRUBIN,TOTAL 0.4 MG/DL (0.2-1.0); BLOOD UREA NITROGEN 12 MG/DL (7-18); CALCIUM LEVEL 8.1 MG/DL (8.8-10.2); CARBON DIOXIDE LEVEL 27 MEQ/L (21-32); CHLORIDE LEVEL 106 MEQ/L (98-107); CREATININE FOR GFR 0.91 MG/DL (0.70-1.30); GLOMERULAR FILTRATION RATE > 60.0 (>49); GLUCOSE, FASTING 85 MG/DL (70-100); POTASSIUM SERUM 3.8 MEQ/L (3.5-5.1); SODIUM LEVEL 143 MEQ/L (136-145); TOTAL PROTEIN 6.4 GM/DL (6.4-8.2)
[2018-06-02 07:29] LABS: ERYTHROCYTE SEDIMENTATION RATE 50 mm/hr (0-20)
[2018-06-02] MEDS: DABIGATRAN ETEXILATE 75 MG CAP (PRADAXA) PO ×2 (09:01→21:55)
[2018-06-02] MEDS: SPIRONOLACTONE 12.5MG PER 1/2 TABLET PO (09:01)
[2018-06-02] MEDS: TAMSULOSIN 0.4 MG CAP PO (09:02)
[2018-06-02] MEDS: FINASTERIDE 5 MG TAB PO (09:02)
[2018-06-02] MEDS: CYANOCOBALAMIN 500 MCG TAB PO (09:02)
[2018-06-02] MEDS: VITAMIN D 1,000 INTERNATIONAL UNITS TABLET PO (09:02)
[2018-06-02] MEDS: FUROSEMIDE 40 MG TAB PO (09:11)
[2018-06-02] MEDS: DIGOXIN 0.125 MG TAB PO (09:11)
[2018-06-02] MEDS: AMIODARONE 200 MG TAB (PACERONE) PO ×2 (09:11→21:54)
[2018-06-02] MEDS: METOPROLOL TART 25 MG TABLET PO ×2 (09:12→21:55)
[2018-06-02] MEDS ORDERED: SODIUM CHLORIDE 0.9% INJ 10 ML SYR IV (19:15)
[2018-06-02] MEDS: POTASSIUM CHLORIDE 10 MEQ SR TABLET PO (21:53)
[2018-06-02] MEDS: PANTOPRAZOLE 40MG TAB (PROTONIX) PO (21:54)
[2018-06-02] MEDS: ROSUVASTATIN 10 MG TAB (CRESTOR) PO (21:54)
[2018-06-02] MEDS: LORATADINE 10 MG TAB PO (21:54)
[2018-06-02] MEDS: ASPIRIN 81 MG ENTERIC TAB PO (21:55)
[2018-06-02] MEDS: LISINOPRIL *2.5 MG* TAB PO (21:55)
[2018-06-03] MEDS: VANCOMYCIN HCL 1,000 MG, VIAL MATE ADAPTER 1 EACH in D5W 250 ML IV ×3 (00:19→17:17)
[2018-06-03] MEDS: ACETAMINOPHEN TAB 650MG DOSE (2X325MG) PO (00:19)
[2018-06-03] MEDS: LEVOTHYROXINE 37.5MCG PER 1/2TAB (0.0375MG) PO (05:29)
[2018-06-03] MEDS: LEVOTHYROXINE 150MCG TABLET (0.15MG) PO (05:29)
[2018-06-03] MEDS: SODIUM CHLORIDE 0.9% INJ 10 ML SYR IV ×2 (05:29→17:17)
[2018-06-03 05:46] LABS: BASO # 0.1 10^3/uL (0.0-0.2); BASO % 0.7 % (0.0-1.0); EOS # 0.3 10^3/uL (0.0-0.50); EOS % 3.6 % (0.0-3.0); HEMATOCRIT 34.3 % (42.0-52.0); IMMATURE GRANULOCYTE % 1.3 % (0-3.0); LYMPH # 1.8 10^3/uL (1.5-4.5); LYMPH % 23.9 % (24.0-44.0); MEAN CORPUSCULAR HEMOGLOBIN 28.3 pg (27.0-33.0); MEAN CORPUSCULAR HGB CONC 32.1 g/dl (32.0-36.5); MEAN CORPUSCULAR VOLUME 88.2 fl (80.0-96.0); MONO # 0.8 10^3/uL (0.0-0.8); MONO % 10.3 % (0.0-5.0); NEUTROPHILS # 4.5 10^3/uL (1.8-7.7); NEUTROPHILS % 60.2 % (36.0-66.0); PLATELET COUNT, AUTOMATED 171 10^3/uL (150-450); RED BLOOD COUNT 3.89 10^6/uL (4.30-6.10); WHITE BLOOD COUNT 7.5 10^3/uL (4.0-10.0)
[2018-06-03 06:39] LABS: ALBUMIN 2.6 GM/DL (3.2-5.2); ALBUMIN/GLOBULIN RATIO 0.79 (1.00-1.93); ALKALINE PHOSPHATASE 132 U/L (45-117); ALT/SGPT 88 U/L (12-78); ANION GAP 9 MEQ/L (8-16); AST/SGOT 49 U/L (7-37); BILIRUBIN,TOTAL 0.4 MG/DL (0.2-1.0); BLOOD UREA NITROGEN 12 MG/DL (7-18); C REACTIVE PROTEIN QUANTITATIV 3.37 MG/DL (0.00-0.30); CALCIUM LEVEL 8.2 MG/DL (8.8-10.2); CARBON DIOXIDE LEVEL 29 MEQ/L (21-32); CHLORIDE LEVEL 106 MEQ/L (98-107); CREATININE FOR GFR 0.99 MG/DL (0.70-1.30); GLOMERULAR FILTRATION RATE > 60.0 (>49); GLUCOSE, FASTING 82 MG/DL (70-100); POTASSIUM SERUM 4.1 MEQ/L (3.5-5.1); SODIUM LEVEL 144 MEQ/L (136-145); TOTAL PROTEIN 5.9 GM/DL (6.4-8.2)
[2018-06-03] MEDS: VITAMIN D 1,000 INTERNATIONAL UNITS TABLET PO (08:23)
[2018-06-03] MEDS: METOPROLOL TART 25 MG TABLET PO ×2 (08:24→20:48)
[2018-06-03] MEDS: SPIRONOLACTONE 12.5MG PER 1/2 TABLET PO (08:24)
[2018-06-03] MEDS: FUROSEMIDE 40 MG TAB PO (08:24)
[2018-06-03] MEDS: CYANOCOBALAMIN 500 MCG TAB PO (08:24)
[2018-06-03] MEDS: TAMSULOSIN 0.4 MG CAP PO (08:25)
[2018-06-03] MEDS: FINASTERIDE 5 MG TAB PO (08:25)
[2018-06-03] MEDS: AMIODARONE 200 MG TAB (PACERONE) PO ×2 (08:25→20:49)
[2018-06-03] MEDS: DIGOXIN 0.125 MG TAB PO (08:25)
[2018-06-03] MEDS: DABIGATRAN ETEXILATE 75 MG CAP (PRADAXA) PO ×2 (08:25→20:46)
[2018-06-03] MEDS: PANTOPRAZOLE 40MG TAB (PROTONIX) PO (20:46)
[2018-06-03] MEDS: LISINOPRIL *2.5 MG* TAB PO (20:47)
[2018-06-03] MEDS: LORATADINE 10 MG TAB PO (20:47)
[2018-06-03] MEDS: ROSUVASTATIN 10 MG TAB (CRESTOR) PO (20:47)
[2018-06-03] MEDS: ASPIRIN 81 MG ENTERIC TAB PO (20:47)
[2018-06-03] MEDS: POTASSIUM CHLORIDE 10 MEQ SR TABLET PO (20:48)
[2018-06-04] MEDS: ACETAMINOPHEN TAB 650MG DOSE (2X325MG) PO (00:30)
[2018-06-04] MEDS: LEVOTHYROXINE 150MCG TABLET (0.15MG) PO (05:25)
[2018-06-04] MEDS: LEVOTHYROXINE 37.5MCG PER 1/2TAB (0.0375MG) PO (05:25)
[2018-06-04] MEDS: SODIUM CHLORIDE 0.9% INJ 10 ML SYR IV (05:25)
[2018-06-04 05:41] LABS: BASO # 0.1 10^3/uL (0.0-0.2); BASO % 0.7 % (0.0-1.0); EOS # 0.4 10^3/uL (0.0-0.50); EOS % 3.9 % (0.0-3.0); HEMATOCRIT 35.1 % (42.0-52.0); IMMATURE GRANULOCYTE % 2.6 % (0-3.0); LYMPH # 2.1 10^3/uL (1.5-4.5); LYMPH % 21.7 % (24.0-44.0); MEAN CORPUSCULAR HEMOGLOBIN 27.7 pg (27.0-33.0); MEAN CORPUSCULAR HGB CONC 31.3 g/dl (32.0-36.5); MEAN CORPUSCULAR VOLUME 88.4 fl (80.0-96.0); MONO # 0.9 10^3/uL (0.0-0.8); MONO % 9.2 % (0.0-5.0); NEUTROPHILS # 5.9 10^3/uL (1.8-7.7); NEUTROPHILS % 61.9 % (36.0-66.0); PLATELET COUNT, AUTOMATED 188 10^3/uL (150-450); RED BLOOD COUNT 3.97 10^6/uL (4.30-6.10); RED CELL DISTRIBUTION WIDTH 14.9 % (11.5-14.5); WHITE BLOOD COUNT 9.5 10^3/uL (4.0-10.0)
[2018-06-04 06:04] LABS: C REACTIVE PROTEIN QUANTITATIV 1.95 MG/DL (0.00-0.30)
[2018-06-04 06:21] LABS: ALBUMIN 2.7 GM/DL (3.2-5.2); ALBUMIN/GLOBULIN RATIO 0.82 (1.00-1.93); ALKALINE PHOSPHATASE 123 U/L (45-117); ALT/SGPT 73 U/L (12-78); ANION GAP 8 MEQ/L (8-16); AST/SGOT 36 U/L (7-37); BILIRUBIN,TOTAL 0.4 MG/DL (0.2-1.0); BLOOD UREA NITROGEN 13 MG/DL (7-18); CARBON DIOXIDE LEVEL 30 MEQ/L (21-32); CHLORIDE LEVEL 105 MEQ/L (98-107); CREATININE FOR GFR 1.07 MG/DL (0.70-1.30); GLOMERULAR FILTRATION RATE > 60.0 (>49); GLUCOSE, FASTING 82 MG/DL (70-100); POTASSIUM SERUM 4.1 MEQ/L (3.5-5.1); SODIUM LEVEL 143 MEQ/L (136-145)
[2018-06-04] MEDS: DABIGATRAN ETEXILATE 75 MG CAP (PRADAXA) PO (08:17)
[2018-06-04] MEDS: SPIRONOLACTONE 12.5MG PER 1/2 TABLET PO (08:17)
[2018-06-04] MEDS: FUROSEMIDE 40 MG TAB PO (08:17)
[2018-06-04] MEDS: FINASTERIDE 5 MG TAB PO (08:17)
[2018-06-04] MEDS: METOPROLOL TART 25 MG TABLET PO (08:18)
[2018-06-04] MEDS: DIGOXIN 0.125 MG TAB PO (08:18)
[2018-06-04] MEDS: VITAMIN D 1,000 INTERNATIONAL UNITS TABLET PO (08:18)
[2018-06-04] MEDS: TAMSULOSIN 0.4 MG CAP PO (08:19)
[2018-06-04] MEDS: AMIODARONE 200 MG TAB (PACERONE) PO (08:19)
[2018-06-04] MEDS: CYANOCOBALAMIN 500 MCG TAB PO (08:19)
[2018-06-04] MEDS: DAPTOmycin 1,000 MG in NS 50 ML IV (11:11)
== END 2018-06-04 14:30 | disposition home health service (06) ==
LOC: M ED 11:26 → M ED INP 14:30 → M MS5PR 15:45
DX: A41.02 Sepsis due to Methicillin resistant Staphylococcus aureus (principal); M86.172 Other acute osteomyelitis, left ankle and foot; I87.312 Chronic venous hypertension (idiopathic) with ulcer of left lower extremity; I50.40 Unspecified combined systolic (congestive) and diastolic (congestive) heart failure; I25.10 Atherosclerotic heart disease of native coronary artery without angina pectoris; I25.2 Old myocardial infarction; Z98.61 Coronary angioplasty status; E78.4 Other hyperlipidemia; G47.33 Obstructive sleep apnea (adult) (pediatric); E03.9 Hypothyroidism, unspecified; I48.2 Chronic atrial fibrillation; N40.0 Benign prostatic hyperplasia without lower urinary tract symptoms; I11.9 Hypertensive heart disease without heart failure; E66.01 Morbid (severe) obesity due to excess calories; Z98.84 Bariatric surgery status; Z79.899 Other long term (current) drug therapy; Z87.891 Personal history of nicotine dependence; Z79.82 Long term (current) use of aspirin
CPT/HCPCS: 28126

== ENCOUNTER → 2018-06-01 | Day surgery (SDC) | payer MEDICARE, BC, OTHER ==
[~2018-06-01] MED LIST changes: +LIDOCAINE 1% MDV 20ML VIAL As Ordered; -LIDOCAINE 2% INJ 100 MG/5 ML SDV (FOR ANES.) As Ordered; -MIDAZOLAM INJ 2 MG/2 ML VIAL (J2250) As Ordered; -PROPOFOL 200 MG/20 ML VIAL As Ordered; -fentaNYL 100 MCG/2 ML INJECTION (J3010) As Ordered
== END | disposition still patient (30) ==
LOC: M SDC 11:45
DX: N35.9 Urethral stricture, unspecified (principal); Z53.29 Procedure and treatment not carried out because of patient's decision for other reasons

== ENCOUNTER → 2018-06-09 | Outpatient (REF) | payer MEDICARE, BC, OTHER ==
[2018-06-09 12:21] LABS: BASO # 0.1 10^3/uL (0.0-0.2); BASO % 0.6 % (0.0-1.0); EOS # 0.3 10^3/uL (0.0-0.50); EOS % 2.5 % (0.0-3.0); HEMATOCRIT 38.1 % (42.0-52.0); HEMOGLOBIN 12.1 g/dl (13.5-17.5); IMMATURE GRANULOCYTE % 1.6 % (0-3.0); LYMPH # 1.9 10^3/uL (1.5-4.5); LYMPH % 18.4 % (24.0-44.0); MEAN CORPUSCULAR HEMOGLOBIN 28.1 pg (27.0-33.0); MEAN CORPUSCULAR HGB CONC 31.8 g/dl (32.0-36.5); MEAN CORPUSCULAR VOLUME 88.6 fl (80.0-96.0); MONO # 1.1 10^3/uL (0.0-0.8); MONO % 10.2 % (0.0-5.0); NEUTROPHILS # 6.9 10^3/uL (1.8-7.7); NEUTROPHILS % 66.7 % (36.0-66.0); PLATELET COUNT, AUTOMATED 290 10^3/uL (150-450); RED CELL DISTRIBUTION WIDTH 15.4 % (11.5-14.5); WHITE BLOOD COUNT 10.3 10^3/uL (4.0-10.0)
[2018-06-09 12:40] LABS: CPK CREATINE PHOSPHOKINASE 35 U/L (39-308)
[2018-06-09 13:24] LABS: ERYTHROCYTE SEDIMENTATION RATE 107 mm/hr (0-20)
== END ==
LOC: M SHH 11:47
DX: R78.81 Bacteremia (principal)
CPT/HCPCS: 82550

== ENCOUNTER → 2018-06-16 | Outpatient (REF) | payer MEDICARE, BC, OTHER ==
[2018-06-16 11:41] LABS: BASO # 0.1 10^3/uL (0.0-0.2); BASO % 0.6 % (0.0-1.0); EOS # 0.4 10^3/uL (0.0-0.50); EOS % 3.4 % (0.0-3.0); HEMATOCRIT 40.6 % (42.0-52.0); HEMOGLOBIN 12.8 g/dl (13.5-17.5); IMMATURE GRANULOCYTE % 0.6 % (0-3.0); LYMPH # 1.8 10^3/uL (1.5-4.5); MEAN CORPUSCULAR HEMOGLOBIN 28.4 pg (27.0-33.0); MEAN CORPUSCULAR HGB CONC 31.5 g/dl (32.0-36.5); MONO % 9.4 % (0.0-5.0); NEUTROPHILS # 7.3 10^3/uL (1.8-7.7); PLATELET COUNT, AUTOMATED 240 10^3/uL (150-450); RED BLOOD COUNT 4.51 10^6/uL (4.30-6.10); RED CELL DISTRIBUTION WIDTH 15.3 % (11.5-14.5); WHITE BLOOD COUNT 10.5 10^3/uL (4.0-10.0)
[2018-06-16 12:10] LABS: ERYTHROCYTE SEDIMENTATION RATE 44 mm/hr (0-20)
[2018-06-16 12:41] LABS: CPK CREATINE PHOSPHOKINASE 52 U/L (39-308)
== END ==
LOC: M SHH 11:14
DX: R78.81 Bacteremia (principal)
CPT/HCPCS: 82550

== ENCOUNTER → 2018-06-23 | Outpatient (REF) | payer MEDICARE, OTHER ==
[2018-06-23 15:30] LABS: BASO # 0.1 10^3/uL (0.0-0.2); BASO % 0.6 % (0.0-1.0); EOS # 0.5 10^3/uL (0.0-0.50); EOS % 5.3 % (0.0-3.0); HEMATOCRIT 41.6 % (42.0-52.0); HEMOGLOBIN 13.1 g/dl (13.5-17.5); IMMATURE GRANULOCYTE % 0.9 % (0-3.0); LYMPH # 1.8 10^3/uL (1.5-4.5); LYMPH % 18.3 % (24.0-44.0); MEAN CORPUSCULAR HEMOGLOBIN 28.4 pg (27.0-33.0); MEAN CORPUSCULAR HGB CONC 31.5 g/dl (32.0-36.5); MEAN CORPUSCULAR VOLUME 90.2 fl (80.0-96.0); MONO # 0.8 10^3/uL (0.0-0.8); MONO % 7.9 % (0.0-5.0); NEUTROPHILS # 6.8 10^3/uL (1.8-7.7); PLATELET COUNT, AUTOMATED 214 10^3/uL (150-450); RED BLOOD COUNT 4.61 10^6/uL (4.30-6.10); RED CELL DISTRIBUTION WIDTH 15.2 % (11.5-14.5); WHITE BLOOD COUNT 10.1 10^3/uL (4.0-10.0)
[2018-06-23 15:54] LABS: ERYTHROCYTE SEDIMENTATION RATE 56 mm/hr (0-20)
[2018-06-23 15:58] LABS: CPK CREATINE PHOSPHOKINASE 63 U/L (39-308)
== END ==
LOC: M LAB REF 15:14
DX: R78.81 Bacteremia (principal)
CPT/HCPCS: 82550

== ENCOUNTER 2018-06-25 12:02 | Emergency (ER) | payer MEDICARE, BC, OTHER ==
[2018-06-25 13:25] LABS: HEMATOCRIT 40.3 % (42.0-52.0); MEAN CORPUSCULAR HEMOGLOBIN 28.3 pg (27.0-33.0); MEAN CORPUSCULAR HGB CONC 32.3 g/dl (32.0-36.5); MEAN CORPUSCULAR VOLUME 87.6 fl (80.0-96.0); PLATELET COUNT, AUTOMATED 164 10^3/uL (150-450); RED CELL DISTRIBUTION WIDTH 15.2 % (11.5-14.5); WHITE BLOOD COUNT 6.2 10^3/uL (4.0-10.0)
[2018-06-25 13:29] LABS: VENOUS BASE EXCESS 1.3 (-2.0-2.0); VENOUS HCO3 26.3 MEQ/L (23.0-27.0); VENOUS PARTIAL PRESSURE CO2 42.8 mmHg (38.0-50.0); VENOUS PARTIAL PRESSURE O2 42.9 mmHg (30.0-50.0); VENOUS PH 7.406 UNITS (7.330-7.430); VENOUS STANDARD HCO3 25.2 MEQ/L; VENOUS TOTAL CO2 27.6 MEQ/L (24.0-28.0)
[2018-06-25 13:31] LABS: APPEARANCE, URINE CLEAR (CLEAR); BACTERIA, URINE AUTO NEGATIVE (NEGATIVE); BILIRUBIN, URINE AUTO NEGATIVE (NEGATIVE); BLOOD, URINE BLOOD NEGATIVE (NEGATIVE); COLOR, URINE YELLOW (YELLOW); GLUCOSE, URINE (UA) AUTO NEGATIVE (NEGATIVE); KETONE, URINE AUTO NEGATIVE (NEGATIVE); LEUKOCYTE ESTERASE, URINE AUTO NEGATIVE (NEGATIVE); NITRITE, URINE AUTO NEGATIVE (NEGATIVE); PROTEIN, URINE AUTO NEGATIVE (NEGATIVE); RBC, URINE AUTO 0 /HPF (0-3); SPECIFIC GRAVITY URINE AUTO 1.008 (1.002-1.035); SQUAMOUS EPITHELIAL CELL UR AU 0 /HPF (0-6); UROBILINOGEN, URINE AUTO 0.2 mg/dL (0.0-2.0); WBC, URINE AUTO 1 /HPF (0-3)
[2018-06-25] MEDS: NS 1,000 ML IV (13:31)
[2018-06-25 13:33] LABS: POSITIVE DIFF POS FLAG
[2018-06-25 13:34] LABS: ADD MANUAL DIFFER YES; DIFF SLIDE NUMBER 198
[2018-06-25 13:37] LABS: INR 1.21; PROTHROMBIN TIME 15.5 SECONDS (12.1-14.4)
[2018-06-25 13:38] LABS: PARTIAL THROMBOPLASTIN TIME 32.1 SECONDS (25.4-37.6)
[2018-06-25 13:59] LABS: ATYPICAL LYMPH 2 % (0-5); BANDS 14 % (< 11); BASOPHILS 1 % (0-4); EOSINOPHILS 1 % (0-5); LYMPHOCYTES 4 % (16-52); MONOCYTES 2 % (0-8); NEUTROPHILS 76 % (35-75)
[2018-06-25 14:00] LABS: PLATELET ESTIMATE NORMAL (NORMAL)
[2018-06-25 14:10] LABS: LACTIC ACID SEPSIS PROTOCOL 2.1 MMOL/L (0.4-2.0)
[2018-06-25 14:12] LABS: ALBUMIN 3.4 GM/DL (3.2-5.2); ALBUMIN/GLOBULIN RATIO 0.94 (1.00-1.93); ALKALINE PHOSPHATASE 106 U/L (45-117); ALT/SGPT 45 U/L (12-78); AMYLASE 39 U/L (25-115); ANION GAP 14 MEQ/L (8-16); AST/SGOT 43 U/L (7-37); BILIRUBIN,DIRECT 0.3 MG/DL (0.0-0.2); BLOOD UREA NITROGEN < 1 MG/DL (7-18); C REACTIVE PROTEIN QUANTITATIV 2.56 MG/DL (0.00-0.30); CALCIUM LEVEL 8.6 MG/DL (8.8-10.2); CARBON DIOXIDE LEVEL 20 MEQ/L (21-32); CHLORIDE LEVEL 103 MEQ/L (98-107); CK-MB VALUE MASS < 1.0 NG/ML (<3.6); CPK CREATINE PHOSPHOKINASE 70 U/L (39-308); CREATININE FOR GFR 1.17 MG/DL (0.70-1.30); DIGOXIN LEVEL 0.8 NG/ML (0.5-2.0); GLOMERULAR FILTRATION RATE > 60.0 (>49); GLUCOSE, FASTING 107 MG/DL (70-100); MB/CK RELATIVE INDEX 1.43 (< OR =4); POTASSIUM SERUM 4.3 MEQ/L (3.5-5.1); SODIUM LEVEL 137 MEQ/L (136-145); TROPONIN I < 0.02 NG/ML (< 0.10)
[2018-06-25] MEDS: CEFEPIME HCL 2 GM in D5W MINI-BAG PLUS 50 ML IV (15:01)
[2018-06-25] MEDS: SODIUM CHLORIDE 0.9% INJ 10 ML SYR IV (16:28)
== END 2018-06-25 16:47 | disposition home or self-care (01) ==
LOC: M ED 12:02
DX: L03.116 Cellulitis of left lower limb (principal); R53.83 Other fatigue; R94.31 Abnormal electrocardiogram [ECG] [EKG]; E11.9 Type 2 diabetes mellitus without complications; I10 Essential (primary) hypertension; Z98.0 Intestinal bypass and anastomosis status; Z98.890 Other specified postprocedural states; Z95.0 Presence of cardiac pacemaker; Z79.890 Hormone replacement therapy; Z79.899 Other long term (current) drug therapy; Z79.82 Long term (current) use of aspirin; M79.605 Pain in left leg
CPT/HCPCS: J0692

== ENCOUNTER 2018-06-30 18:36 | Emergency (ER) | payer MEDICARE, BC, OTHER ==
[2018-06-30] MEDS: LevoFLOXacin 500 MG TABLET PO (19:24)
[2018-06-30 19:27] LABS: HEMATOCRIT 41.3 % (42.0-52.0); HEMOGLOBIN 13.3 g/dl (13.5-17.5); MEAN CORPUSCULAR HEMOGLOBIN 28.5 pg (27.0-33.0); MEAN CORPUSCULAR HGB CONC 32.2 g/dl (32.0-36.5); MEAN CORPUSCULAR VOLUME 88.4 fl (80.0-96.0); PLATELET COUNT, AUTOMATED 231 10^3/uL (150-450); RED BLOOD COUNT 4.67 10^6/uL (4.30-6.10); RED CELL DISTRIBUTION WIDTH 15.3 % (11.5-14.5); WHITE BLOOD COUNT 12.6 10^3/uL (4.0-10.0)
== END 2018-06-30 19:49 | disposition home or self-care (01) ==
LOC: M ED 18:36
DX: L03.116 Cellulitis of left lower limb (principal); E11.9 Type 2 diabetes mellitus without complications; Z79.890 Hormone replacement therapy; Z79.899 Other long term (current) drug therapy; Z79.82 Long term (current) use of aspirin; Z95.5 Presence of coronary angioplasty implant and graft

== ENCOUNTER → 2018-06-30 | Outpatient (REF) | payer MEDICARE, BC, OTHER ==
[2018-06-30 16:53] LABS: CPK CREATINE PHOSPHOKINASE 52 U/L (39-308)
[2018-06-30 16:56] LABS: BASO # 0.1 10^3/uL (0.0-0.2); BASO % 1.1 % (0.0-1.0); EOS # 0.4 10^3/uL (0.0-0.50); EOS % 3.8 % (0.0-3.0); HEMOGLOBIN 13.4 g/dl (13.5-17.5); IMMATURE GRANULOCYTE % 3.2 % (0-3.0); LYMPH # 2.2 10^3/uL (1.5-4.5); LYMPH % 19.5 % (24.0-44.0); MEAN CORPUSCULAR HEMOGLOBIN 28.6 pg (27.0-33.0); MEAN CORPUSCULAR HGB CONC 31.9 g/dl (32.0-36.5); MEAN CORPUSCULAR VOLUME 89.6 fl (80.0-96.0); MONO # 1.1 10^3/uL (0.0-0.8); MONO % 9.7 % (0.0-5.0); NEUTROPHILS % 62.7 % (36.0-66.0); PLATELET COUNT, AUTOMATED 259 10^3/uL (150-450); RED BLOOD COUNT 4.69 10^6/uL (4.30-6.10); RED CELL DISTRIBUTION WIDTH 15.4 % (11.5-14.5); WHITE BLOOD COUNT 11.2 10^3/uL (4.0-10.0)
[2018-06-30 17:42] LABS: ERYTHROCYTE SEDIMENTATION RATE 40 mm/hr (0-20)
== END ==
LOC: M SHH 15:31
DX: R78.81 Bacteremia (principal)

== ENCOUNTER 2018-07-01 09:37 | Inpatient (IN) | payer MEDICARE, BC, OTHER ==
[2018-07-01 10:53] LABS: BASO # 0.1 10^3/uL (0.0-0.2); BASO % 0.6 % (0.0-1.0); EOS # 0.4 10^3/uL (0.0-0.50); EOS % 3.8 % (0.0-3.0); HEMATOCRIT 41.4 % (42.0-52.0); HEMOGLOBIN 13.3 g/dl (13.5-17.5); IMMATURE GRANULOCYTE % 2.5 % (0-3.0); LYMPH % 18.4 % (24.0-44.0); MEAN CORPUSCULAR HEMOGLOBIN 28.1 pg (27.0-33.0); MEAN CORPUSCULAR HGB CONC 32.1 g/dl (32.0-36.5); MEAN CORPUSCULAR VOLUME 87.5 fl (80.0-96.0); MONO % 9.6 % (0.0-5.0); NEUTROPHILS # 7.1 10^3/uL (1.8-7.7); NEUTROPHILS % 65.1 % (36.0-66.0); PLATELET COUNT, AUTOMATED 232 10^3/uL (150-450); RED BLOOD COUNT 4.73 10^6/uL (4.30-6.10); RED CELL DISTRIBUTION WIDTH 15.3 % (11.5-14.5); WHITE BLOOD COUNT 10.8 10^3/uL (4.0-10.0)
[2018-07-01 11:13] LABS: LACTIC ACID SEPSIS PROTOCOL 1.9 MMOL/L (0.4-2.0)
[2018-07-01 11:20] LABS: ANION GAP 10 MEQ/L (8-16); BLOOD UREA NITROGEN 18 MG/DL (7-18); CALCIUM LEVEL 8.9 MG/DL (8.8-10.2); CARBON DIOXIDE LEVEL 27 MEQ/L (21-32); CHLORIDE LEVEL 103 MEQ/L (98-107); CREATININE FOR GFR 1.15 MG/DL (0.70-1.30); GLOMERULAR FILTRATION RATE > 60.0 (>49); GLUCOSE, FASTING 101 MG/DL (70-100); POTASSIUM SERUM 4.4 MEQ/L (3.5-5.1); SODIUM LEVEL 140 MEQ/L (136-145)
[2018-07-01] MEDS ORDERED: PERCOCET 5MG/325MG TAB PO ×2 (12:30)
[2018-07-01] MEDS ORDERED: MORPHINE 4 MG/ML 1ML VIAL/SYRINGE (J2270) IV ×2 (12:30)
[2018-07-01] MEDS ORDERED: ONDANSETRON 4MG/2ML VIAL (J2405) IV ×2 (12:30)
[2018-07-01 15:05] LABS: C REACTIVE PROTEIN QUANTITATIV 1.59 MG/DL (0.00-0.30)
[2018-07-01 15:24] LABS: ERYTHROCYTE SEDIMENTATION RATE 47 mm/hr (0-20)
[2018-07-01] MEDS ORDERED: DAPTOmycin 1,000 MG in NS 50 ML IV (16:00)
[2018-07-01] MEDS: DAPTOmycin 1,000 MG in NS 50 ML IV (17:18)
[2018-07-01] MEDS: cefTRIAXone SOD 2 GM in D5W MINI-BAG PLUS 50 ML IV (17:59)
[2018-07-01] MEDS: LISINOPRIL *2.5 MG* TAB PO ×2 (20:21)
[2018-07-01] MEDS: FLUTICASONE PROP 0.05% NASAL SPRAY 16 GM (FLONASE) ×2 (20:32)
[2018-07-01] MEDS: MULTIVITAMINS CHILDREN'S CHEWABLE TABLET PO ×2 (20:32)
[2018-07-01] MEDS: ROSUVASTATIN 10 MG TAB (CRESTOR) PO ×2 (20:33)
[2018-07-01] MEDS: ASPIRIN 81 MG ENTERIC TAB PO ×2 (20:33)
[2018-07-01] MEDS: PANTOPRAZOLE 40MG TAB (PROTONIX) PO ×2 (20:33)
[2018-07-01] MEDS: AMIODARONE 200 MG TAB (PACERONE) PO ×2 (20:33)
[2018-07-01] MEDS: METOPROLOL TART 25 MG TABLET PO ×2 (20:33)
[2018-07-01] MEDS: LORATADINE 10 MG TAB PO ×2 (20:33)
[2018-07-01] MEDS: POTASSIUM CHLORIDE 10 MEQ SR TABLET PO ×2 (20:33)
[2018-07-01] MEDS: DABIGATRAN ETEXILATE 75 MG CAP (PRADAXA) PO ×2 (20:34)
[2018-07-02] MEDS: LEVOTHYROXINE 37.5MCG PER 1/2TAB (0.0375MG) PO ×2 (05:12)
[2018-07-02] MEDS: LEVOTHYROXINE 150MCG TABLET (0.15MG) PO ×2 (05:13)
[2018-07-02 07:27] LABS: BASO # 0.1 10^3/uL (0.0-0.2); BASO % 0.7 % (0.0-1.0); EOS # 0.4 10^3/uL (0.0-0.50); EOS % 3.7 % (0.0-3.0); HEMATOCRIT 36.8 % (42.0-52.0); HEMOGLOBIN 11.7 g/dl (13.5-17.5); IMMATURE GRANULOCYTE % 2.2 % (0-3.0); LYMPH # 1.7 10^3/uL (1.5-4.5); LYMPH % 17.2 % (24.0-44.0); MEAN CORPUSCULAR HEMOGLOBIN 27.9 pg (27.0-33.0); MEAN CORPUSCULAR HGB CONC 31.8 g/dl (32.0-36.5); MEAN CORPUSCULAR VOLUME 87.8 fl (80.0-96.0); MONO % 10.3 % (0.0-5.0); NEUTROPHILS # 6.5 10^3/uL (1.8-7.7); NEUTROPHILS % 65.9 % (36.0-66.0); PLATELET COUNT, AUTOMATED 182 10^3/uL (150-450); RED BLOOD COUNT 4.19 10^6/uL (4.30-6.10); RED CELL DISTRIBUTION WIDTH 15.2 % (11.5-14.5); WHITE BLOOD COUNT 9.9 10^3/uL (4.0-10.0)
[2018-07-02 07:58] LABS: ANION GAP 8 MEQ/L (8-16); BLOOD UREA NITROGEN 16 MG/DL (7-18); C REACTIVE PROTEIN QUANTITATIV 1.36 MG/DL (0.00-0.30); CALCIUM LEVEL 8.2 MG/DL (8.8-10.2); CARBON DIOXIDE LEVEL 27 MEQ/L (21-32); CHLORIDE LEVEL 104 MEQ/L (98-107); FREE THYROXINE INDEX 2.8 % (1.4-3.8); GLOMERULAR FILTRATION RATE > 60.0 (>49); GLUCOSE, FASTING 91 MG/DL (70-100); POTASSIUM SERUM 3.9 MEQ/L (3.5-5.1); SODIUM LEVEL 139 MEQ/L (136-145); T UPTAKE 33 % (33-40); THYROXINE (T4) 8.6 UG/DL (4.5-12.0)
[2018-07-02] MEDS ORDERED: LEVOTHYROXINE 25MCG TABLET (0.025MG) PO ×2 (09:00)
[2018-07-02] MEDS ORDERED: ENOXAPARIN 40 MG/0.4 ML SYRINGE (J1650) SC ×2 (09:00)
[2018-07-02] MEDS: FINASTERIDE 5 MG TAB PO ×2 (10:17)
[2018-07-02] MEDS: CYANOCOBALAMIN 500 MCG TAB PO ×2 (10:17)
[2018-07-02] MEDS: DABIGATRAN ETEXILATE 75 MG CAP (PRADAXA) PO ×4 (10:17→21:54)
[2018-07-02] MEDS: AMIODARONE 200 MG TAB (PACERONE) PO ×4 (10:18→21:55)
[2018-07-02] MEDS: METOPROLOL TART 25 MG TABLET PO ×4 (10:18→21:55)
[2018-07-02] MEDS: TAMSULOSIN 0.4 MG CAP PO ×2 (10:19)
[2018-07-02] MEDS: DIGOXIN 0.125 MG TAB PO ×2 (10:19)
[2018-07-02] MEDS: SPIRONOLACTONE 12.5MG PER 1/2 TABLET PO ×2 (10:19)
[2018-07-02] MEDS: FUROSEMIDE 40 MG TAB PO ×2 (10:20)
[2018-07-02] MEDS: LACTOBACILLUS ACIDOPHILUS CAP (BACID) PO ×4 (13:56→21:54)
[2018-07-02] MEDS: cefTRIAXone SOD 2 GM in D5W MINI-BAG PLUS 50 ML IV (16:24)
[2018-07-02] MEDS: DAPTOmycin 1,000 MG in NS 50 ML IV (18:02)
[2018-07-02] MEDS: FLUTICASONE PROP 0.05% NASAL SPRAY 16 GM (FLONASE) ×2 (21:52)
[2018-07-02] MEDS: PANTOPRAZOLE 40MG TAB (PROTONIX) PO ×2 (21:53)
[2018-07-02] MEDS: POTASSIUM CHLORIDE 10 MEQ SR TABLET PO ×2 (21:53)
[2018-07-02] MEDS: MULTIVITAMINS CHILDREN'S CHEWABLE TABLET PO ×2 (21:54)
[2018-07-02] MEDS: LORATADINE 10 MG TAB PO ×2 (21:55)
[2018-07-02] MEDS: ROSUVASTATIN 10 MG TAB (CRESTOR) PO ×2 (21:56)
[2018-07-02] MEDS: LISINOPRIL *2.5 MG* TAB PO ×2 (21:56)
[2018-07-02] MEDS: ASPIRIN 81 MG ENTERIC TAB PO ×2 (21:57)
[2018-07-02] MEDS: ACETAMINOPHEN TAB 650MG DOSE (2X325MG) PO ×2 (22:31)
[2018-07-03] MEDS: LEVOTHYROXINE 37.5MCG PER 1/2TAB (0.0375MG) PO ×2 (05:37)
[2018-07-03] MEDS: LEVOTHYROXINE 150MCG TABLET (0.15MG) PO ×2 (05:37)
[2018-07-03 07:08] LABS: BASO # 0.1 10^3/uL (0.0-0.2); BASO % 0.6 % (0.0-1.0); EOS # 0.5 10^3/uL (0.0-0.50); EOS % 4.8 % (0.0-3.0); HEMATOCRIT 37.3 % (42.0-52.0); IMMATURE GRANULOCYTE % 2.5 % (0-3.0); LYMPH # 2.1 10^3/uL (1.5-4.5); LYMPH % 22.3 % (24.0-44.0); MEAN CORPUSCULAR HEMOGLOBIN 28.4 pg (27.0-33.0); MEAN CORPUSCULAR HGB CONC 32.2 g/dl (32.0-36.5); MEAN CORPUSCULAR VOLUME 88.2 fl (80.0-96.0); NEUTROPHILS # 5.6 10^3/uL (1.8-7.7); NEUTROPHILS % 58.8 % (36.0-66.0); PLATELET COUNT, AUTOMATED 192 10^3/uL (150-450); RED BLOOD COUNT 4.23 10^6/uL (4.30-6.10); RED CELL DISTRIBUTION WIDTH 15.3 % (11.5-14.5); WHITE BLOOD COUNT 9.5 10^3/uL (4.0-10.0)
[2018-07-03 07:42] LABS: ANION GAP 7 MEQ/L (8-16); BLOOD UREA NITROGEN 16 MG/DL (7-18); CALCIUM LEVEL 8.5 MG/DL (8.8-10.2); CARBON DIOXIDE LEVEL 31 MEQ/L (21-32); CHLORIDE LEVEL 104 MEQ/L (98-107); CREATININE FOR GFR 1.07 MG/DL (0.70-1.30); GLOMERULAR FILTRATION RATE > 60.0 (>49); GLUCOSE, FASTING 87 MG/DL (70-100); POTASSIUM SERUM 3.9 MEQ/L (3.5-5.1); SODIUM LEVEL 142 MEQ/L (136-145)
[2018-07-03] MEDS: LACTOBACILLUS ACIDOPHILUS CAP (BACID) PO ×2 (08:51)
[2018-07-03] MEDS: DIGOXIN 0.125 MG TAB PO ×2 (08:51)
[2018-07-03] MEDS: SPIRONOLACTONE 12.5MG PER 1/2 TABLET PO ×2 (08:51)
[2018-07-03] MEDS: TAMSULOSIN 0.4 MG CAP PO ×2 (08:52)
[2018-07-03] MEDS: FUROSEMIDE 40 MG TAB PO ×2 (08:52)
[2018-07-03] MEDS: DABIGATRAN ETEXILATE 75 MG CAP (PRADAXA) PO ×2 (08:52)
[2018-07-03] MEDS: AMIODARONE 200 MG TAB (PACERONE) PO ×2 (08:52)
[2018-07-03] MEDS: FINASTERIDE 5 MG TAB PO ×2 (08:52)
[2018-07-03] MEDS: CYANOCOBALAMIN 500 MCG TAB PO ×2 (08:52)
[2018-07-03] MEDS: METOPROLOL TART 25 MG TABLET PO ×2 (08:53)
== END 2018-07-03 11:35 | disposition home or self-care (01) | DRG 314 ==
LOC: M ED 09:37 → M ED INP 12:27 → M MS5PR 16:20
DX: T80.211A Bloodstream infection due to central venous catheter, initial encounter (principal); I50.42 Chronic combined systolic (congestive) and diastolic (congestive) heart failure; A41.9 Sepsis, unspecified organism; Z68.43 Body mass index [BMI] 50.0-59.9, adult; L97.526 Non-pressure chronic ulcer of other part of left foot with bone involvement without evidence of necrosis; E66.01 Morbid (severe) obesity due to excess calories; I87.2 Venous insufficiency (chronic) (peripheral); I48.2 Chronic atrial fibrillation; I25.10 Atherosclerotic heart disease of native coronary artery without angina pectoris; I25.2 Old myocardial infarction; E78.5 Hyperlipidemia, unspecified; G47.33 Obstructive sleep apnea (adult) (pediatric); E03.9 Hypothyroidism, unspecified; B96.89 Other specified bacterial agents as the cause of diseases classified elsewhere; N40.0 Benign prostatic hyperplasia without lower urinary tract symptoms; Z95.0 Presence of cardiac pacemaker; Z95.1 Presence of aortocoronary bypass graft; Y83.1 Surgical operation with implant of artificial internal device as the cause of abnormal reaction of the patient, or of later complication, without mention of misadventure at the time of the procedure; Z87.891 Personal history of nicotine dependence; Z98.84 Bariatric surgery status; Z79.82 Long term (current) use of aspirin; Z79.899 Other long term (current) drug therapy

== ENCOUNTER → 2018-07-08 | Outpatient (REF) | payer MEDICARE, OTHER ==
[2018-07-08 12:46] LABS: ANION GAP 10 MEQ/L (8-16); BLOOD UREA NITROGEN 22 MG/DL (7-18); C REACTIVE PROTEIN QUANTITATIV 0.33 MG/DL (0.00-0.30); CALCIUM LEVEL 9.2 MG/DL (8.8-10.2); CARBON DIOXIDE LEVEL 27 MEQ/L (21-32); CHLORIDE LEVEL 103 MEQ/L (98-107); CREATININE FOR GFR 1.14 MG/DL (0.70-1.30); GLOMERULAR FILTRATION RATE > 60.0 (>49); GLUCOSE, FASTING 103 MG/DL (70-100); POTASSIUM SERUM 4.5 MEQ/L (3.5-5.1); SODIUM LEVEL 140 MEQ/L (136-145)
[2018-07-08 12:50] LABS: BASO # 0.1 10^3/uL (0.0-0.2); BASO % 0.6 % (0.0-1.0); EOS # 0.5 10^3/uL (0.0-0.50); HEMATOCRIT 42.2 % (42.0-52.0); HEMOGLOBIN 13.4 g/dl (13.5-17.5); IMMATURE GRANULOCYTE % 1.3 % (0-3.0); LYMPH # 2.3 10^3/uL (1.5-4.5); LYMPH % 17.8 % (24.0-44.0); MEAN CORPUSCULAR HEMOGLOBIN 28.1 pg (27.0-33.0); MEAN CORPUSCULAR HGB CONC 31.8 g/dl (32.0-36.5); MEAN CORPUSCULAR VOLUME 88.5 fl (80.0-96.0); MONO # 1.1 10^3/uL (0.0-0.8); MONO % 8.7 % (0.0-5.0); NEUTROPHILS # 8.7 10^3/uL (1.8-7.7); NEUTROPHILS % 67.6 % (36.0-66.0); PLATELET COUNT, AUTOMATED 245 10^3/uL (150-450); RED BLOOD COUNT 4.77 10^6/uL (4.30-6.10); RED CELL DISTRIBUTION WIDTH 15.4 % (11.5-14.5); WHITE BLOOD COUNT 12.9 10^3/uL (4.0-10.0)
[2018-07-08 13:31] LABS: ERYTHROCYTE SEDIMENTATION RATE 36 mm/hr (0-20)
== END ==
LOC: M SFHCPLAZ 09:48
DX: M86.172 Other acute osteomyelitis, left ankle and foot (principal)
CPT/HCPCS: 80048

== ENCOUNTER → 2018-07-14 | Outpatient (REF) | payer MEDICARE, BC, OTHER ==
[2018-07-14 16:52] LABS: ANION GAP 3 MEQ/L (8-16); BLOOD UREA NITROGEN 24 MG/DL (7-18); C REACTIVE PROTEIN QUANTITATIV 0.46 MG/DL (0.00-0.30); CALCIUM LEVEL 8.8 MG/DL (8.8-10.2); CARBON DIOXIDE LEVEL 34 MEQ/L (21-32); CHLORIDE LEVEL 104 MEQ/L (98-107); CREATININE FOR GFR 1.34 MG/DL (0.70-1.30); GLUCOSE, FASTING 100 MG/DL (70-100); POTASSIUM SERUM 4.5 MEQ/L (3.5-5.1); SODIUM LEVEL 141 MEQ/L (136-145)
[2018-07-14 19:14] LABS: ERYTHROCYTE SEDIMENTATION RATE 31 mm/hr (0-20)
[2018-07-14 19:16] LABS: BASO # 0.1 10^3/uL (0.0-0.2); BASO % 0.6 % (0.0-1.0); EOS # 0.5 10^3/uL (0.0-0.50); EOS % 5.1 % (0.0-3.0); HEMATOCRIT 41.4 % (42.0-52.0); HEMOGLOBIN 13.3 g/dl (13.5-17.5); IMMATURE GRANULOCYTE % 0.6 % (0-3.0); LYMPH # 1.6 10^3/uL (1.5-4.5); LYMPH % 16.8 % (24.0-44.0); MEAN CORPUSCULAR HEMOGLOBIN 28.7 pg (27.0-33.0); MEAN CORPUSCULAR HGB CONC 32.1 g/dl (32.0-36.5); MEAN CORPUSCULAR VOLUME 89.2 fl (80.0-96.0); MONO # 0.8 10^3/uL (0.0-0.8); MONO % 8.1 % (0.0-5.0); NEUTROPHILS # 6.6 10^3/uL (1.8-7.7); NEUTROPHILS % 68.8 % (36.0-66.0); PLATELET COUNT, AUTOMATED 235 10^3/uL (150-450); RED BLOOD COUNT 4.64 10^6/uL (4.30-6.10); RED CELL DISTRIBUTION WIDTH 15.8 % (11.5-14.5); WHITE BLOOD COUNT 9.7 10^3/uL (4.0-10.0)
== END ==
LOC: M LABDRAWP 14:43
DX: M86.172 Other acute osteomyelitis, left ankle and foot (principal)

== ENCOUNTER → 2018-07-14 | Outpatient (REF) | payer MEDICARE, BC, OTHER ==
[2018-07-14 16:23] LABS: HEMATOCRIT 41.4 % (42.0-52.0); HEMOGLOBIN 13.2 g/dl (13.5-17.5); MEAN CORPUSCULAR HEMOGLOBIN 28.4 pg (27.0-33.0); MEAN CORPUSCULAR HGB CONC 31.9 g/dl (32.0-36.5); MEAN CORPUSCULAR VOLUME 89.2 fl (80.0-96.0); PLATELET COUNT, AUTOMATED 218 10^3/uL (150-450); RED BLOOD COUNT 4.64 10^6/uL (4.30-6.10); RED CELL DISTRIBUTION WIDTH 15.6 % (11.5-14.5); WHITE BLOOD COUNT 9.9 10^3/uL (4.0-10.0)
[2018-07-14 16:50] LABS: ESTIMATED AVERAGE GLUCOSE 114 MG/DL (60-110); HEMOGLOBIN A1c 5.6 %
[2018-07-14 17:01] LABS: ALBUMIN 3.5 GM/DL (3.2-5.2); ALBUMIN/GLOBULIN RATIO 0.97 (1.00-1.93); ALKALINE PHOSPHATASE 88 U/L (45-117); ALT/SGPT 49 U/L (12-78); ANION GAP 2 MEQ/L (8-16); AST/SGOT 38 U/L (7-37); BILIRUBIN,TOTAL 0.6 MG/DL (0.2-1.0); BLOOD UREA NITROGEN 23 MG/DL (7-18); CALCIUM LEVEL 8.6 MG/DL (8.8-10.2); CARBON DIOXIDE LEVEL 35 MEQ/L (21-32); CHLORIDE LEVEL 104 MEQ/L (98-107); CHOLESTEROL LEVEL 117 MG/DL (<200); CREATININE FOR GFR 1.38 MG/DL (0.70-1.30); GLOMERULAR FILTRATION RATE 55.1 (>49); GLUCOSE, FASTING 101 MG/DL (70-100); HDL CHOLESTEROL 43 MG/DL (>40); LDL CHOLESTEROL 44 MG/DL (<100); NON-HDL-C 74 MG/DL; POTASSIUM SERUM 4.6 MEQ/L (3.5-5.1); SODIUM LEVEL 141 MEQ/L (136-145); TOTAL PROTEIN 7.1 GM/DL (6.4-8.2); TRIGLYCERIDES LEVEL 150 MG/DL (<150)
== END ==
LOC: M LABDRAWP 14:46
DX: L97.509 Non-pressure chronic ulcer of other part of unspecified foot with unspecified severity (principal); E03.9 Hypothyroidism, unspecified; R73.01 Impaired fasting glucose; I50.9 Heart failure, unspecified
CPT/HCPCS: 83735

== ENCOUNTER 2018-07-20 10:54 | Day surgery (SDC) | payer MEDICARE, BC, OTHER ==
[~2018-07-20] VITALS: Ht 190.5 cm; Wt 186.0 kg
[~2018-07-20 10:54] MED LIST changes: +/TAMS4CA PO; +ACE65ERTAB PO; +ADULCHW2 PO; +AMIO200T37 PO; +AMOX875T2 PO; +AMPI500C9 PO; +ASPI1TAB PO; +ASPI81TA45 PO; +ASPI81TAEC PO; +ATOR40TA PO; +AUGM875T27 PO; +B-12100T2 PO; +BACT800T5 PO; +BECA1GEL TOP; +CALC1TAB11 PO; +CALC1TAB31 PO; +CALC1TAB72 PO; +CALC750T PO; +CALCCAP PO; +CEFD1CAP8 PO; +CEFD300CAP PO; +CINN500C9 PO; +CLAR10CA3 PO; +CLOT1CRE71 TOP; +CLOTCRE3 TOP; +CLOTLOT TOP; +COLA50CA3 PO; +CRAN250T PO; +CRAN500C2 PO; +CRAN500C5 PO; +CRES20TA PO; +D 501TAB PO; +D 50CAP PO; +DAPT500I IV; +DIGO0.12 PO; +DIGO0.127 PO; +DOXY-350 PO; +DOXY100T PO; +DOXY100T16 PO; +DOXY75CA3 PO; +ENAL10TA2 PO; +FERR324T12 PO; +FERR32TA PO; +FINA5TAB2 PO; +FISH1000 PO; +FISH1200 PO; +FLOM0.4C39 PO; +FLON1SPR; +FLUT50SP; +FLUTISP; +FURO40TA2 PO; +GEMF600T PO; +GLUC1TAB PO; +GLUC500C98 PO; +GLUC500T53 PO; +KLOR10TA76 PO; +KLOR1TAB69 PO; +LASI40TA PO; +LEVA1TAB2 PO; +LEVO175T PO; +LEVO175T2 PO; -LIDOCAINE 1% MDV 20ML VIAL As Ordered; +LIDOCAINE 1% MDV 20ML VIAL SQ PRN; +LIPI20TA PO; +LISI2.5T5 PO; +LOPR1TAB6 PO; +LORA-243 PO; +METO-346 PO; +METO50TA2 PO; +METO50TA7 PO; +METO75TA PO; +MULT1TAB18 PO; +MULTCHW14 PO; +MULTLIQ7 PO; +MULTTAB35 PO; +NITR4TASL SL; +NITROQUICK SL; +NIZO2SHA EX; +OMEG12006 PO; +PANT40TA3 PO; +PERCOCET PO; +PLAV1TAB2 PO; +PRAD150C PO; +PRAV20TA2 PO; +PROSCAR PO; +SILV1CRE60 TOP; +SPIR-10 PO; +STOO100C PO; +SYNT25TA PO; +TAMS0.4C2 PO; +VITA100067 PO; +VITA100T20 PO; +VITA250L PO; +VITA500T3 PO; +VITA500T53 PO; +VITACHTA PO; +[UNRECOGNIZED DRUG - CODE] PO; +[UNRECOGNIZED DRUG - CODE] PO; +[UNRECOGNIZED DRUG - SUPPLY] TD; +vantin PO
[2018-07-20] MEDS ORDERED: LR 1,000 ML IV ONE (11:15)
[2018-07-20] MEDS ORDERED: ceFAZolin SOD 1 GM in D5W MINI-BAG PLUS 50 ML IV ONE (11:15)
[2018-07-20] MEDS ORDERED: MIDAZOLAM INJ 2 MG/2 ML VIAL (J2250) As Ordered ONE ×2 (13:00→13:58)
[2018-07-20] MEDS ORDERED: PROPOFOL 200 MG/20 ML VIAL As Ordered ONE (13:00)
[2018-07-20] MEDS ORDERED: fentaNYL 100 MCG/2 ML INJECTION (J3010) As Ordered ONE (13:00)
[2018-07-20] MEDS ORDERED: LIDOCAINE 2% INJ 100 MG/5 ML SDV (FOR ANES.) As Ordered ONE (13:00)
[2018-07-20] MEDS ORDERED: BACITRACIN OINT 30GM As Ordered ONE (13:33)
[2018-07-20] MEDS ORDERED: BUPIVACAINE HCL 0.25% 30 ML VIAL As Ordered ONE (13:33)
[2018-07-20] MEDS ORDERED: LIDOCAINE 1% SDV INJ 30 ML VIAL As Ordered ONE (13:33)
[2018-07-20] MEDS ORDERED: BACT800T5 PO (14:30)
[2018-07-20] MEDS ORDERED: TYLE650T35 PO (14:30)
[2018-07-20 15:30] VITALS: BP 132/62
--- NOTE | 2018-07-21 07:24 | RO ---
DATE OF PROCEDURE: 07/20/2018 PREOPERATIVE DIAGNOSIS: Meatal stenosis. POSTOPERATIVE DIAGNOSIS: Meatal stenosis. SURGERY PERFORMED: Cystoscopy, meatotomy. SURGEON: Dr. Rufus Abdalla SUPPLY CHAIN TECH: None. ANESTHESIA: Penile block with lidocaine 1% and Marcaine 0.25% a total of 15 mL. COMPLICATIONS: None. HISTORY OF PRESENT ILLNESS: 63-year-old male patient with multiple comorbidities. He also has a meatal stenosis that has recurred after dilatation. For this reason, he has consented for a cystoscopy plus meatotomy. PROCEDURE DESCRIPTION: In a patient in supine modified low lithotomy position after proceeding to perform a penile block with lidocaine 1% and 0.25% Marcaine, a total of 15 mL, we started by clamping the ventral aspect of the meatus with a Madeline clamp. We then proceeded to cut with cuticular scissors where the clamping was performed and sutured the internal mucosa of the urethra to the external glans, three stitches on the right and three stitches on the left, of the slit that we performed on the meatus to actively control hemostasis. We then proceeded to do a cystoscopy. There were no other strictures inside the urethra. The bladder was without any tumors or stones or foreign objects. Both ureteral orifices were seen. We then extracted the cystoscope and passed an 18 [place] Grey catheter and placed the balloon to 10 mL and placed it to gravity. PLAN: The patient will take Bactrim DS one tablet by mouth twice a day for 190 days and Tylenol for pain. He will have the Grey catheter for at least seven days and voiding trial in seven days. He may start blood thinners in five days. There were no complications of surgery.
== END 2018-07-20 15:45 | disposition home or self-care (01) ==
LOC: M SDC 10:54
PROVIDERS: ATTEND Urology
DX: N35.911 Unspecified urethral stricture, male, meatal (principal); I48.91 Unspecified atrial fibrillation; I25.2 Old myocardial infarction; Z79.899 Other long term (current) drug therapy; Z79.82 Long term (current) use of aspirin; G47.30 Sleep apnea, unspecified; Z95.0 Presence of cardiac pacemaker; Z98.84 Bariatric surgery status; E03.9 Hypothyroidism, unspecified
CPT/HCPCS: 52281; J0690; J2250; J3010

== ENCOUNTER → 2018-07-21 | Outpatient (REF) | payer MEDICARE, OTHER ==
[2018-07-21 18:07] LABS: BASO # 0.1 10^3/uL (0.0-0.2); BASO % 0.5 % (0.0-1.0); EOS # 0.5 10^3/uL (0.0-0.50); EOS % 4.8 % (0.0-3.0); HEMATOCRIT 42.4 % (42.0-52.0); HEMOGLOBIN 13.6 g/dl (13.5-17.5); IMMATURE GRANULOCYTE % 0.6 % (0-3.0); LYMPH # 1.8 10^3/uL (1.5-4.5); LYMPH % 16.7 % (24.0-44.0); MEAN CORPUSCULAR HEMOGLOBIN 28.3 pg (27.0-33.0); MEAN CORPUSCULAR HGB CONC 32.1 g/dl (32.0-36.5); MEAN CORPUSCULAR VOLUME 88.3 fl (80.0-96.0); MONO # 0.8 10^3/uL (0.0-0.8); MONO % 7.3 % (0.0-5.0); NEUTROPHILS # 7.6 10^3/uL (1.8-7.7); NEUTROPHILS % 70.1 % (36.0-66.0); PLATELET COUNT, AUTOMATED 195 10^3/uL (150-450); RED CELL DISTRIBUTION WIDTH 15.5 % (11.5-14.5); WHITE BLOOD COUNT 10.8 10^3/uL (4.0-10.0)
[2018-07-21 18:25] LABS: ANION GAP 7 MEQ/L (8-16); BLOOD UREA NITROGEN 22 MG/DL (7-18); C REACTIVE PROTEIN QUANTITATIV 1.16 MG/DL (0.00-0.30); CALCIUM LEVEL 8.8 MG/DL (8.8-10.2); CARBON DIOXIDE LEVEL 31 MEQ/L (21-32); CHLORIDE LEVEL 100 MEQ/L (98-107); CREATININE FOR GFR 1.26 MG/DL (0.70-1.30); GLOMERULAR FILTRATION RATE > 60.0 (>49); GLUCOSE, FASTING 134 MG/DL (70-100); POTASSIUM SERUM 4.4 MEQ/L (3.5-5.1); SODIUM LEVEL 138 MEQ/L (136-145)
[2018-07-21 18:52] LABS: ERYTHROCYTE SEDIMENTATION RATE 25 mm/hr (0-20)
== END ==
LOC: M LABDRAWP 17:45
DX: M86.172 Other acute osteomyelitis, left ankle and foot (principal)
CPT/HCPCS: 80048

== ENCOUNTER → 2018-07-28 | Outpatient (REF) | payer MEDICARE, OTHER ==
[2018-07-28 18:37] LABS: BASO # 0.1 10^3/uL (0.0-0.2); BASO % 0.6 % (0.0-1.0); EOS # 0.5 10^3/uL (0.0-0.50); HEMOGLOBIN 13.3 g/dl (13.5-17.5); LYMPH # 2.4 10^3/uL (1.5-4.5); MEAN CORPUSCULAR HEMOGLOBIN 28.2 pg (27.0-33.0); MEAN CORPUSCULAR HGB CONC 31.7 g/dl (32.0-36.5); MEAN CORPUSCULAR VOLUME 89.2 fl (80.0-96.0); MONO # 1.3 10^3/uL (0.0-0.8); MONO % 10.3 % (0.0-5.0); NEUTROPHILS # 8.1 10^3/uL (1.8-7.7); NEUTROPHILS % 65.1 % (36.0-66.0); PLATELET COUNT, AUTOMATED 240 10^3/uL (150-450); RED BLOOD COUNT 4.71 10^6/uL (4.30-6.10); RED CELL DISTRIBUTION WIDTH 15.1 % (11.5-14.5); WHITE BLOOD COUNT 12.4 10^3/uL (4.0-10.0)
[2018-07-28 18:54] LABS: ANION GAP 10 MEQ/L (8-16); BLOOD UREA NITROGEN 24 MG/DL (7-18); C REACTIVE PROTEIN QUANTITATIV 0.53 MG/DL (0.00-0.30); CALCIUM LEVEL 8.4 MG/DL (8.8-10.2); CARBON DIOXIDE LEVEL 25 MEQ/L (21-32); CHLORIDE LEVEL 102 MEQ/L (98-107); CREATININE FOR GFR 1.45 MG/DL (0.70-1.30); GLUCOSE, FASTING 79 MG/DL (70-100); POTASSIUM SERUM 4.8 MEQ/L (3.5-5.1); SODIUM LEVEL 137 MEQ/L (136-145)
[2018-07-28 19:38] LABS: ERYTHROCYTE SEDIMENTATION RATE 35 mm/hr (0-20)
== END ==
LOC: M LABDRAWP 15:23
DX: M86.172 Other acute osteomyelitis, left ankle and foot (principal)
CPT/HCPCS: 80048

== ENCOUNTER → 2018-08-04 | Outpatient (REF) | payer MEDICARE, OTHER ==
[2018-08-04 17:59] LABS: BASO # 0.1 10^3/uL (0.0-0.2); BASO % 0.4 % (0.0-1.0); EOS # 0.3 10^3/uL (0.0-0.50); EOS % 2.2 % (0.0-3.0); HEMATOCRIT 42.3 % (42.0-52.0); HEMOGLOBIN 13.5 g/dl (13.5-17.5); IMMATURE GRANULOCYTE % 0.7 % (0-3.0); LYMPH % 13.9 % (24.0-44.0); MEAN CORPUSCULAR HEMOGLOBIN 28.5 pg (27.0-33.0); MEAN CORPUSCULAR HGB CONC 31.9 g/dl (32.0-36.5); MEAN CORPUSCULAR VOLUME 89.4 fl (80.0-96.0); MONO # 1.3 10^3/uL (0.0-0.8); MONO % 8.7 % (0.0-5.0); NEUTROPHILS # 10.7 10^3/uL (1.8-7.7); NEUTROPHILS % 74.1 % (36.0-66.0); PLATELET COUNT, AUTOMATED 233 10^3/uL (150-450); RED BLOOD COUNT 4.73 10^6/uL (4.30-6.10); RED CELL DISTRIBUTION WIDTH 15.1 % (11.5-14.5); WHITE BLOOD COUNT 14.4 10^3/uL (4.0-10.0)
[2018-08-04 18:07] LABS: ANION GAP 6 MEQ/L (8-16); BLOOD UREA NITROGEN 31 MG/DL (7-18); C REACTIVE PROTEIN QUANTITATIV < 0.30 MG/DL (0.00-0.30); CALCIUM LEVEL 8.7 MG/DL (8.8-10.2); CARBON DIOXIDE LEVEL 29 MEQ/L (21-32); CHLORIDE LEVEL 105 MEQ/L (98-107); CREATININE FOR GFR 1.26 MG/DL (0.70-1.30); GLOMERULAR FILTRATION RATE > 60.0 (>49); GLUCOSE, FASTING 107 MG/DL (70-100); POTASSIUM SERUM 4.2 MEQ/L (3.5-5.1); SODIUM LEVEL 140 MEQ/L (136-145)
[2018-08-04 18:43] LABS: ERYTHROCYTE SEDIMENTATION RATE 23 mm/hr (0-20)
== END ==
LOC: M LABDRAWP 14:33
DX: M86.172 Other acute osteomyelitis, left ankle and foot (principal)
CPT/HCPCS: 80048

== ENCOUNTER → 2018-08-11 | Outpatient (REF) | payer MEDICARE, OTHER ==
[2018-08-11 16:23] LABS: BASO # 0.1 10^3/uL (0.0-0.2); BASO % 0.5 % (0.0-1.0); EOS # 0.5 10^3/uL (0.0-0.50); EOS % 3.8 % (0.0-3.0); HEMATOCRIT 42.2 % (42.0-52.0); HEMOGLOBIN 13.6 g/dl (13.5-17.5); IMMATURE GRANULOCYTE % 1.1 % (0-3.0); LYMPH # 2.3 10^3/uL (1.5-4.5); LYMPH % 19.1 % (24.0-44.0); MEAN CORPUSCULAR HEMOGLOBIN 28.8 pg (27.0-33.0); MEAN CORPUSCULAR HGB CONC 32.2 g/dl (32.0-36.5); MEAN CORPUSCULAR VOLUME 89.4 fl (80.0-96.0); MONO # 1.1 10^3/uL (0.0-0.8); MONO % 8.7 % (0.0-5.0); NEUTROPHILS # 8.1 10^3/uL (1.8-7.7); NEUTROPHILS % 66.8 % (36.0-66.0); PLATELET COUNT, AUTOMATED 216 10^3/uL (150-450); RED BLOOD COUNT 4.72 10^6/uL (4.30-6.10); RED CELL DISTRIBUTION WIDTH 14.9 % (11.5-14.5); WHITE BLOOD COUNT 12.1 10^3/uL (4.0-10.0)
[2018-08-11 16:43] LABS: ANION GAP 6 MEQ/L (8-16); BLOOD UREA NITROGEN 23 MG/DL (7-18); C REACTIVE PROTEIN QUANTITATIV 0.35 MG/DL (0.00-0.30); CALCIUM LEVEL 8.7 MG/DL (8.8-10.2); CARBON DIOXIDE LEVEL 29 MEQ/L (21-32); CHLORIDE LEVEL 102 MEQ/L (98-107); CREATININE FOR GFR 1.69 MG/DL (0.70-1.30); GLOMERULAR FILTRATION RATE 43.6 (>49); GLUCOSE, FASTING 97 MG/DL (70-100); POTASSIUM SERUM 4.6 MEQ/L (3.5-5.1); SODIUM LEVEL 137 MEQ/L (136-145)
[2018-08-11 19:06] LABS: ERYTHROCYTE SEDIMENTATION RATE 21 mm/hr (0-20)
== END ==
LOC: M LABDRAWP 14:34
DX: M86.172 Other acute osteomyelitis, left ankle and foot (principal)
CPT/HCPCS: 80048

== ENCOUNTER → 2018-08-23 | Outpatient (REF) | payer MEDICARE, OTHER | LOC: M LABDRAWP 15:09 | DX: E03.9 Hypothyroidism, unspecified (principal); M86.172 Other acute osteomyelitis, left ankle and foot; N35.911 Unspecified urethral stricture, male, meatal ==

== ENCOUNTER → 2018-08-23 | Outpatient (REF) | payer MEDICARE, OTHER ==
[2018-08-23 18:14] LABS: APPEARANCE, URINE CLEAR (CLEAR); BACTERIA, URINE AUTO NEGATIVE (NEGATIVE); BILIRUBIN, URINE AUTO NEGATIVE (NEGATIVE); BLOOD, URINE BLOOD NEGATIVE (NEGATIVE); COLOR, URINE YELLOW (YELLOW); GLUCOSE, URINE (UA) AUTO NEGATIVE (NEGATIVE); KETONE, URINE AUTO NEGATIVE (NEGATIVE); LEUKOCYTE ESTERASE, URINE AUTO NEGATIVE (NEGATIVE); NITRITE, URINE AUTO NEGATIVE (NEGATIVE); PROTEIN, URINE AUTO NEGATIVE (NEGATIVE); RBC, URINE AUTO 0 /HPF (0-3); SPECIFIC GRAVITY URINE AUTO 1.012 (1.002-1.035); SQUAMOUS EPITHELIAL CELL UR AU 0 /HPF (0-6); UROBILINOGEN, URINE AUTO 0.2 mg/dL (0.0-2.0); WBC, URINE AUTO 1 /HPF (0-3)
[2018-08-23 18:27] LABS: BASO # 0.1 10^3/uL (0.0-0.2); BASO % 0.6 % (0.0-1.0); EOS # 0.3 10^3/uL (0.0-0.50); EOS % 2.5 % (0.0-3.0); HEMATOCRIT 43.1 % (42.0-52.0); IMMATURE GRANULOCYTE % 0.8 % (0-3.0); LYMPH # 2.2 10^3/uL (1.5-4.5); LYMPH % 21.5 % (24.0-44.0); MEAN CORPUSCULAR HEMOGLOBIN 28.8 pg (27.0-33.0); MEAN CORPUSCULAR HGB CONC 32.5 g/dl (32.0-36.5); MEAN CORPUSCULAR VOLUME 88.7 fl (80.0-96.0); MONO # 1.1 10^3/uL (0.0-0.8); NEUTROPHILS # 6.4 10^3/uL (1.8-7.7); NEUTROPHILS % 63.6 % (36.0-66.0); PLATELET COUNT, AUTOMATED 238 10^3/uL (150-450); RED BLOOD COUNT 4.86 10^6/uL (4.30-6.10); RED CELL DISTRIBUTION WIDTH 14.7 % (11.5-14.5)
[2018-08-23 18:30] LABS: ANION GAP 8 MEQ/L (8-16); BLOOD UREA NITROGEN 27 MG/DL (7-18); C REACTIVE PROTEIN QUANTITATIV < 0.30 MG/DL (0.00-0.30); CALCIUM LEVEL 8.5 MG/DL (8.8-10.2); CARBON DIOXIDE LEVEL 28 MEQ/L (21-32); CHLORIDE LEVEL 101 MEQ/L (98-107); CREATININE FOR GFR 1.22 MG/DL (0.70-1.30); GLOMERULAR FILTRATION RATE > 60.0 (>49); GLUCOSE, FASTING 86 MG/DL (70-100); POTASSIUM SERUM 4.6 MEQ/L (3.5-5.1); SODIUM LEVEL 137 MEQ/L (136-145)
[2018-08-23 20:17] LABS: ERYTHROCYTE SEDIMENTATION RATE 19 mm/hr (0-20)
== END ==
LOC: M SFHCPLAZ 14:32
DX: M86.172 Other acute osteomyelitis, left ankle and foot (principal); N35.911 Unspecified urethral stricture, male, meatal; E03.9 Hypothyroidism, unspecified
CPT/HCPCS: 84443

== ENCOUNTER → 2018-12-13 | Outpatient (REF) | payer MEDICARE, OTHER ==
[~2018-12-13] MED LIST changes: -LIDOCAINE 1% MDV 20ML VIAL SQ PRN; +TYLE650T35 PO
== END ==
LOC: M LAB REF 18:52
PROVIDERS: ATTEND Podiatrist
DX: M79.672 Pain in left foot (principal); L03.032 Cellulitis of left toe

== ENCOUNTER → 2019-02-16 | Outpatient (REF) | payer MEDICARE, OTHER ==
[~2019-02-16] MED LIST changes: -/TAMS4CA PO; +ASPI81TA26 PO; +CALC1TAB13 PO; -CALC1TAB31 PO; -CRES20TA PO; +CRES20TA2 PO; -D 501TAB PO; +FLUT50SP12; -FLUTISP; +LISI-1046 PO; -LISI2.5T5 PO; +OXYC1TAB23 PO; -PERCOCET PO; +PRAD150C6 PO; -VITA100T20 PO; +VITA100T51 PO; +VITA500030 PO; +VITA500075 PO; +VITA500T17 PO; -VITA500T53 PO; -[UNRECOGNIZED DRUG - CODE] PO
== END ==
LOC: M LAB REF 17:30
PROVIDERS: ATTEND Podiatrist
DX: L97.522 Non-pressure chronic ulcer of other part of left foot with fat layer exposed (principal); M79.672 Pain in left foot

== ENCOUNTER 2019-03-02 15:05 | Inpatient (IN) | payer MEDICARE, BC, OTHER ==
[~2019-03-02] VITALS: Ht 190.5 cm; Wt 181.6 kg
[2019-03-02] MEDS: BETAMETHASONE VAL 0.1% CR 15 GM TOP SCH (09:00)
[~2019-03-02 15:05] MED LIST changes: -COLA100C5 PO; -CRAN1260 PO; -ENTR1TAB PO; -KP F1200 PO; -LEVO200T4 PO; -LEVO50TA5 PO; -PROBCAP14 PO; -QC A650T3 PO; -VENTAER INH; -VITAD1000T PO
[2019-03-02] MEDS ORDERED: PRAD150C6 PO (15:27)
[2019-03-02] MEDS ORDERED: ENTR1TAB PO (15:27)
[2019-03-02] MEDS ORDERED: ASPIRIN 81 MG CHEW TABLET PO ONE (15:30)
[2019-03-02] MEDS ORDERED: IPRATROPIUM 0.5MG/ALBUTEROL 2.5MG INH SOL UD 3ML (DUONEB)(J7620) NEB ONE (15:30)
[2019-03-02] MEDS ORDERED: cefTRIAXone SOD 1 GM in D5W MINI-BAG PLUS 50 ML IV ONE (16:30)
[2019-03-02 16:41] LABS: BASO % 0.3 % (0.0-1.0); EOS # 0.4 10^3/uL (0.0-0.50); EOS % 2.6 % (0.0-3.0); HEMATOCRIT 37.9 % (42.0-52.0); HEMOGLOBIN 12.1 g/dl (13.5-17.5); LYMPH # 1.4 10^3/uL (1.5-4.5); LYMPH % 10.7 % (24.0-44.0); MEAN CORPUSCULAR HEMOGLOBIN 28.7 pg (27.0-33.0); MEAN CORPUSCULAR HGB CONC 31.9 g/dl (32.0-36.5); MONO # 1.5 10^3/uL (0.0-0.8); MONO % 11.6 % (0.0-5.0); NEUTROPHILS # 9.8 10^3/uL (1.8-7.7); PLATELET COUNT, AUTOMATED 309 10^3/uL (150-450); RED BLOOD COUNT 4.21 10^6/uL (4.30-6.10); WHITE BLOOD COUNT 13.2 10^3/uL (4.0-10.0)
--- NOTE | 2019-03-02 16:42 | REP ---
Chest two views HISTORY: Cough Comparison: 06/25/2018 Patchy density is present in the right upper lobe and bilateral lower lobes consistent with infiltrates. The cardiac silhouette is enlarged. The pulmonary vasculature is normal in appearance. The bony structure is intact. A cardiac pacemaker is present. IMPRESSION: 1. Right upper lobe and bilateral lower lobe infiltrates. 2. Cardiomegaly. Electronically Signed by Clark Albarran MD 03/02/2019 04:34 P
[2019-03-02] MEDS ORDERED: FUROSEMIDE 40 MG/4 ML VIAL (J1940) IV ONE (16:45)
[2019-03-02 16:55] LABS: ABG HCO3 22.6 MEQ/L (22.0-26.0); ABG O2 SATURATION 92.9 % (95.0-99.0); ABG PARTIAL PRESSURE CO2 33.9 mmHg (35.0-45.0); ABG PARTIAL PRESSURE O2 69.1 mmHg (75.0-100.0); ABG STANDARD HCO3 23.6 MEQ/L (22.0-26.0); ABG TOTAL CO2 23.6 MEQ/L (23.0-31.0); ABG pH (ARTERIAL) 7.441 UNITS (7.350-7.450)
[2019-03-02] MEDS ORDERED: LEVO200T4 PO (17:11)
[2019-03-02] MEDS ORDERED: VITAD1000T PO (17:11)
[2019-03-02] MEDS ORDERED: LEVO50TA5 PO (17:11)
[2019-03-02] MEDS ORDERED: BACT800T5 PO (17:16)
[2019-03-02] MEDS ORDERED: CRAN1260 PO (17:16)
[2019-03-02] MEDS ORDERED: KP F1200 PO (17:16)
[2019-03-02] MEDS ORDERED: VENTAER INH (17:16)
[2019-03-02] MEDS ORDERED: PROBCAP14 PO (17:16)
[2019-03-02] MEDS ORDERED: QC A650T3 PO (17:16)
[2019-03-02] MEDS ORDERED: COLA100C5 PO (17:16)
[2019-03-02 17:26] LABS: ALBUMIN 2.3 GM/DL (3.2-5.2); ALT/SGPT 42 U/L (12-78); BILIRUBIN,DIRECT 0.3 MG/DL (0.0-0.2); BILIRUBIN,TOTAL 0.4 MG/DL (0.2-1.0); BLOOD UREA NITROGEN 30 MG/DL (7-18); CALCIUM LEVEL 7.9 MG/DL (8.8-10.2); CARBON DIOXIDE LEVEL 23 MEQ/L (21-32); CHLORIDE LEVEL 108 MEQ/L (98-107); CK-MB VALUE MASS < 1.0 NG/ML (<3.6); CPK CREATINE PHOSPHOKINASE 30 U/L (39-308); CREATININE FOR GFR 1.17 MG/DL (0.70-1.30); DIGOXIN LEVEL 0.8 NG/ML (0.5-2.0); GLOMERULAR FILTRATION RATE > 60.0 (>49); GLUCOSE, FASTING 107 MG/DL (70-100); MB/CK RELATIVE INDEX 3.33 (< OR =4); NT-PRO BNP 2236 PG/ML (<125); POTASSIUM SERUM 4.3 MEQ/L (3.5-5.1); SODIUM LEVEL 140 MEQ/L (136-145); TROPONIN I < 0.02 NG/ML (< 0.10)
[2019-03-02 17:29] LABS: INR 1.26
[2019-03-02] MEDS ORDERED: IPRATROPIUM 0.5MG/ALBUTEROL 2.5MG INH SOL UD 3ML (DUONEB)(J7620) NEB PRN (18:15)
[2019-03-02] MEDS ORDERED: NITROGLYCERIN 0.4 MG SUBL TABLET SL PRN (18:45)
--- NOTE | 2019-03-02 18:47 | HPEPDOC ---
General Date of Admission 03/02/2019 Date of Service: Mar 02, 2019 Chief Complaint The patient is a 63-year-old male who presented to the emergency room after experiencing shortness of breath and hypoxia at the pulmonologists office History of Present Illness Patient is a 63-year-old male with a PMHx of Systolic CHF (EF 40%) s/p AICD, Third degree AV block s/p PM, Chronic atrial fibrillation, CAD s/p stent x2 (2014, 2016), LENA on CPAP, DLP, Hypothyroidism, Morbid obesity s/p Gastric b ypass, BPH who presented to the emergency room with shortness of breath. 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 Patient reported shortness of breath but denied chest pain. He denies any significant productive cough, but does report mucous production with white and yellow sputum. Patient did not experience any difficulty lying flat on his back, this is not causing to have any shortness of breath. Patient does report occasional lower extremity swelling, has indicated that he did not take his diuretic this morning because of doctors appointment. Patient is reported that he was recently started on Entresto and was taken off of Lisinopril. Patient denies nausea, vomiting, abdominal pain, constipation, diarrhea, or urinary discomfort. Over the last few days. Patient has reported chills but denies any fevers. Currently, he denies either. Patient reports that his appetite has been fairly consistent and denies any change in his weight. Home Medications Scheduled Amiodarone HCl (Amiodarone Hydrochloride) 200 Mg Tab, 200 MG PO BID, (Reported) Aspirin (Aspirin EC) 81 Mg Tabec, 81 MG PO QHS, (Reported) Calcium Citrate/Vitamin D3 (Calcium Citrate-Vit D3 Tablet) 1 Tab Tab, 2 TAB PO QPM, (Reported) AT 1700 Cranberry Conc/Ascorbic Acid (Cranberry 12,600 mg Softgel) 1 Each Capsule, 25,200 MG PO DAILY, (Reported) Cyanocobalamin (Vitamin B-12) (Vitamin B-12) 500 Mcg Tab, 1,000 MCG PO DAILY, (Reported) Dabigatran Etexilate Mesylate (Pradaxa) 150 Mg Capsule, 150 MG PO BID, (Reported) Digoxin (Digoxin) 125 Mcg Tab, 125 MCG PO DAILY, (Reported) Docusate Sodium (Colace) 100 Mg Capsule, 100 MG PO DAILY, (Reported) AT 1700 Ferrous Fumarate (Ferrous Fumarate) 324 Mg Tab, 324 MG PO QPM, (Reported) AT 1700 Finasteride (Finasteride) 5 Mg Tab, 5 MG PO DAILY, (Reported) Fish Oil/Dha/Epa (Fish Oil 1,200 mg Fish Oil) 1 Each Capsule, 1 CAP PO DAILY, (Reported) Fluticasone Propionate (Flonase Allergy Relief) 50 Mcg/Act Spr, 2 SPRAYS NA QHS, (Reported) Furosemide (Furosemide) 40 Mg Tab, 40 MG PO DAILY, (Reported) Lactobacillus Acidophilus (Probiotic) 1 Each Capsule, 1 CAP PO DAILY, (Reported) Levothyroxine Sodium (Levothyroxine Sodium) 200 Mcg Tablet, 200 MCG PO DAILY, (Reported) TAKES WITH 50 MCG TAB TO EQUAL 250MCG Levothyroxine Sodium (Levothyroxine Sodium) 50 Mcg Tablet, 50 MCG PO DAILY, (Reported) TAKES WITH 200 MCG TO EQUAL 250 MCG Loratadine (Loratadine) 10 Mg Tab, 10 MG PO QHS, (Reported) Metoprolol Tartrate (Lopressor) 50 Mg Tab, 75 MG PO BID, (Reported) Multivitamins (Child Chew Vitamin) 1 Tab Chew, 2 TAB PO QPM, (Reported) AT 1700 Pantoprazole Sodium (Pantoprazole Sodium) 40 Mg Tab, 40 MG PO QPM, (Reported) AT 1700 Potassium Chloride (Klor-Con M10) 10 Meq Tabcr, 10 MEQ PO QPM, (Reported) AT 1700 Rosuvastatin Calcium (Crestor) 20 Mg Tab, 20 MG PO QHS, (Reported) Sacubitril/Valsartan (Entresto 24 mg-26 mg Tablet) 1 Each Tablet, 1 TAB PO QHS, (Reported) Spironolactone (Spironolactone) 25 Mg Tab, 12.5 MG PO DAILY, (Reported) Sulfamethoxazole/Trimethoprim (Bactrim Ds Tablet) 1 Each Tablet, 1 TAB PO BID, (Reported) TO TAKE X 10 DAYS STARTED 03/01/19 Tamsulosin HCl (Flomax) 0.4 Mg Cap, 0.4 MG PO DAILY, (Reported) Vitamin D (Vitamin D3) 1,000 Unit Tablet, 5,000 UNITS PO DAILY, (Reported) AT 1700 Scheduled PRN Acetaminophen (Acetaminophen 8 Hour) 650 Mg Tablet.er, 650 MG PO DAILY PRN for PAIN, (Reported) Albuterol Sulfate (Ventolin Hfa) 18 Gm Hfa.aer.ad, 2 PUFF INH Q4H PRN for SHORTNESS OF BREATH, (Reported) Clotrimazole/Betamethasone Dip (Clotrimazole-Betamethasone Lot) 1 Lot Lot, 1 DOSE TOP DAILY PRN for RASH, (Reported) APPLY TO AFFECTED AREAS Allergies Coded Allergies: No Known Allergies (Unverified , 05/20/18) Past Medical History Medical History Systolic CHF (EF 40%) s/p AICD, Third degree AV block s/p PM, Chronic atrial fibrillation, CAD s/p stent x2 (2014, 2015), LENA on CPAP, DLP, Hypothyroidism, Morbid obesity s/p Gastric bypass, BPH Surgical History Coronary artery bypass graft December 2001 Pacemaker implantation March 2015 Defibrillator implantation 2015 and revision in June 2016 Ankle surgery Stent placement 2014 and 2015 Cystoscopy Right ankle repair 1973 Left foot debridement 12/28/2017, 01/08/2018, 06/01/2018 Family History - Mother with history of heart disease - Father with history of colon cancer Social History - Denies the use of illicit drugs; social alcohol use with beer; quit smoking 30 years ago - Denies recent travel or sick contacts - Lives with ex- and daughter - 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 Review of Systems Other systems 10 point review of systems complete, all negative otherwise stated in HPI Vital Signs - Vitals: BP 127/65, HR 92, RR 22, Sat 94%NC4L, Temp 96.8F - General: Lying in bed, No acute distress, Speaking in full sentences, AAOx3 - HEENT: NC, AT, PERRLA, EOMI - CVS: RRR, +S1S2, - Murmurs / rubs / gallops - Lungs: Fair air entry bilaterally, does not appear to have any wheezing, rhonchi or rales - Abdomen: Soft, Non-distended, Non-tender - Extremities: There is trace to 1+ pitting edema bilaterally of lower extremities, No calf tenderness - Neuro: No focal motor or sensory deficit - Skin: No visible rashes Laboratory Data Labs 24H Laboratory Tests 2 03/02/19 15:28: Anion Gap 9, Glomerular Filtration Rate > 60.0, Calcium Level 7.9L, Aspartate Amino Transf (AST/SGOT) 38H, Alanine Aminotransferase (ALT/SGPT) 42, Alkaline Phosphatase 167H, Total Bilirubin 0.4, Direct Bilirubin 0.3H, Total Creatine Kinase 30L, Creatine Kinase MB < 1.0, Creatine Kinase MB Relative Index 3.33, Troponin I < 0.02, LA-Viv-N-Type Natriuretic Peptide 2236H, Total Protein 7.0, Albumin 2.3L, Albumin/Globulin Ratio 0.49L, Digoxin Level 0.8 03/02/19 16:15: Immature Granulocyte % (Auto) 0.8, White Blood Count 13.2H, Red Blood Count 4.21L, Hemoglobin 12.1L, Hematocrit 37.9L, Mean Corpuscular Volume 90.0, Mean Corpuscular Hemoglobin 28.7, Mean Corpuscular Hemoglobin Concent 31.9L, Red Cell Distribution Width 14.4, Platelet Count 309, Neutrophils (%) (Auto) 74.0H, Lymphocytes (%) (Auto) 10.7L, Monocytes (%) (Auto) 11.6H, Eosinophils (%) (Auto) 2.6, Basophils (%) (Auto) 0.3, Neutrophils # (Auto) 9.8H, Lymphocytes # (Auto) 1.4L, Monocytes # (Auto) 1.5H, Eosinophils # (Auto) 0.4, Basophils # (Auto) 0.0, Nucleated Red Blood Cells % (auto) 0.0, Prothrombin Time 16.0H, Prothromb Time International Ratio 1.26 03/02/19 16:42: Blood Gas Bicarbonate Standard 23.6, Arterial Blood pH 7.441, Arterial Blood Partial Pressure CO2 33.9L, Arterial Blood Partial Pressure O2 69.1L, Arterial Blood Total CO2 23.6, Arterial Blood HCO3 22.6, Arterial Blood Base Excess -1.0, Arterial Blood Oxygen Saturation 92.9L CBC/BMP Laboratory Tests 03/02/19 15:28 03/02/19 16:15 Red Blood Count 4.21 L, Mean Corpuscular Volume 90.0, Mean Corpuscular Hemoglobin 28.7, Mean Corpuscular Hemoglobin Concent 31.9 L, Red Cell Distribution Width 14.4, Neutrophils (%) (Auto) 74.0 H, Lymphocytes (%) (Auto) 10.7 L, Monocytes (%) (Auto) 11.6 H, Eosinophils (%) (Auto) 2.6, Basophils (%) (Auto) 0.3, Neutrophils # (Auto) 9.8 H, Lymphocytes # (Auto) 1.4 L, Monocytes # (Auto) 1.5 H, Eosinophils # (Auto) 0.4, Basophils # (Auto) 0.0 Microbiology Microbiology 03/02/19 Blood Culture, Received Pending 03/02/19 Blood Culture, Received Pending Plan / VTE VTE Prophylaxis Ordered?: Yes Plan Plan Acute hypoxic respiratory failure - possibly 2/2 pneumonia (coverage for gram- negative pneumonia, coverage for MRSA pneumonia), possibly component of fluid overload - 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 Right upper lobe and bilateral lower lobe infiltrates. 2. Cardiomegaly. - s/p Ceftriaxone and Furosemide 40 IV x 1 dose - Will get CT scan of chest to evaluate for any signs of fluid overload - Will start the patient on coverage with Ceftaroline Systolic CHF (EF 40%) s/p AICD - Possibly component of exacerbation - s/p Furosemide 40 IV in ER - Will check ECHO - c/w Digoxin - c/w Metoprolol, Furosemide and Spironolactone Third degree AV block s/p PM Chronic atrial fibrillation - c/w Digoxin and Amiodarone - c/w Full anticoagulation with Pradaxa CAD s/p stent x2 (2014, 2015) - No complaints of chest pain or palpitations - Troponin negative - c/w Nitroglycerin PRN LENA on CPAP - May allow home CPAP use DLP - c/w Rosuvastatin and Fish oil Hypothyroidism - c/w Levothyroxine Morbid obesity s/p Gastric bypass BPH - c/w Finasteride and Tamsulosin GERD - c/w Protonix DVT prophylaxis - on full anticoagulation with Pradaxa FRANCESCA LOPES MD Mar 02, 2019 18:47
[2019-03-02] MEDS: FUROSEMIDE 40 MG TAB PO SCH (19:07)
--- NOTE | 2019-03-02 19:33 | REPVR ---
EXAM: CT Chest Without Contrast EXAM DATE/TIME: 03/02/2019 6:26 PM CLINICAL HISTORY: 63 years old, male; Signs and symptoms; Shortness of breath; Additional info: Evaluate for pneumonia / fluid overload TECHNIQUE: Imaging protocol: Axial computed tomography images of the chest without intravenous contrast. Coronal and sagittal reformatted images were created and reviewed. 3D rendering: MIP reconstructed images were created and reviewed. Radiation optimization: All CT scans at this facility use at least one of these dose optimization techniques: automated exposure control; mA and/or kV adjustment per patient size (includes targeted exams where dose is matched to clinical indication); or iterative reconstruction. COMPARISON: CT Chest with contrast 09/01/2017 1:23 AM FINDINGS: Tubes, catheters and devices: Pacemaker battery pack implanted within the soft tissues of the left upper anterior chest wall. Lungs:Scattered thickening of the inter and intra-lobular septa bilaterally. Right: Confluent groundglass opacities noted diffusely in the right upper lobe with scattered patchy areas of consolidation. Traction bronchiectasis noted in the anterior segment of the right upper lobe and an area of scarring adjacent to the major fissure in the right middle lobe.. . Patchy groundglass opacities and patchy consolidation noted in the right lower lobe. Left:Subpleural parenchymal thickening noted in the lingula. Groundglass opacity noted surrounding the left upper lobe bronchovascular bundle . 6 mm nodule left lower lobe (series 2 image 52). Somewhat irregular nodular opacity left lower lobe (series 2 on image 47) measuring 1.5 cm in thickness. 8mm nodule anterior segment left upper lobe (series 201 image 34). Pleural space: Normal. No pneumothorax. No pleural effusion. Heart: Normal. No cardiomegaly. No pericardial effusion. Aorta: Normal. No aortic aneurysm. Lymph nodes: There is a lymph node anterior to the right mainstem bronchus measuring 2 x 2.4 x 2.4 cm. Several right perihilar lymph nodes with a short axis diameter of 1 cm. Subcarinal lymph nodes present measuring approximately 2 cm x 1.8 cm x 2.2 cm. Bones/joints: There has been a median sternotomy. Bridging osteophytes are seen throughout the mid and lower dorsal spine. 9 mm area of sclerosis noted in the T3 vertebral body. No change from previous Soft tissues: Unremarkable. Liver: The liver surface is slightly nodular. Stomach and bowel: There is evidence of previous gastric bypass surgery in the upper abdomen. IMPRESSION: 1. Mixed groundglass and interstitial pneumonitis, right side greater left. Presence of traction bronchiectasis suggests chronic interstitial lung disease with superimposed acute pneumonitis 2. Patchy consolidation bilaterally with mediastinal and hilar adenopathy which has progressed since previous 3. Left sided pulmonary nodules. These were not present on the previous exam and may be inflammatory. For patients at low risk (minimal or absent history of smoking and of other known risk factors), recommend CT at 3-6 months, then consider CT at 18-24 months. For patients at high risk (history of smoking or of other known risk factors), recommend CT at 3-6 months, then CT at 18-24 months. (Mathieu et al., Fleischner Society, 2017) 4. The liver surface is nodular. Underlying cirrhosis among the diagnostic considerations Electronically signed by: Caridad Mcclain On 03/02/2019 19:33:15 PM
[2019-03-02] MEDS: IPRATROPIUM 0.5MG/ALBUTEROL 2.5MG INH SOL UD 3ML (DUONEB)(J7620) NEB SCH (20:00)
--- NOTE | 2019-03-02 20:15 | ECGEPIP ---
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
[2019-03-02] MEDS: ROSUVASTATIN 10 MG TAB (CRESTOR) PO SCH (22:37)
[2019-03-02] MEDS: FLUTICASONE PROP 0.05% NASAL SPRAY 16 GM (FLONASE) SCH (22:37)
[2019-03-02] MEDS: AMIODARONE 200 MG TAB (PACERONE) PO SCH (22:37)
[2019-03-02] MEDS: LORATADINE 10 MG TAB PO SCH (22:37)
[2019-03-02] MEDS: DOCUSATE SODIUM 100 MG CAP PO SCH (22:38)
[2019-03-02] MEDS: ASPIRIN 81 MG ENTERIC TAB PO SCH (22:38)
[2019-03-02] MEDS: VITAMIN D 1,000 INTERNATIONAL UNITS TABLET PO SCH (22:38)
[2019-03-02] MEDS: FERROUS SULFATE 325MG TAB PO SCH (22:38)
[2019-03-02] MEDS: PANTOPRAZOLE 40MG TAB (PROTONIX) PO SCH (22:38)
[2019-03-02] MEDS: ENTRESTO 24-26MG TABLET (SACUBITRIL/VALSARTAN) PO SCH (22:39)
[2019-03-02] MEDS: DABIGATRAN ETEXILATE 75 MG CAP (PRADAXA) PO SCH (22:39)
[2019-03-02] MEDS: MULTIVITAMINS CHILDREN'S CHEWABLE TABLET PO SCH (22:39)
[2019-03-02] MEDS: METOPROLOL TART 25 MG TABLET PO SCH (22:40)
[2019-03-02] MEDS: CEFTAROLINE FOSAMIL 600 MG in D5W MINI-BAG PLUS 50 ML IV SCH (22:40)
[2019-03-03] MEDS: IPRATROPIUM 0.5MG/ALBUTEROL 2.5MG INH SOL UD 3ML (DUONEB)(J7620) NEB SCH ×4 (04:09→20:26)
[2019-03-03] MEDS: LEVOTHYROXINE 50MCG TABLET (0.05MG) PO SCH (05:58)
[2019-03-03] MEDS: LEVOTHYROXINE 100MCG TABLET (0.1MG) PO SCH (05:58)
[2019-03-03 06:40] LABS: BASO % 0.3 % (0.0-1.0); EOS # 0.5 10^3/uL (0.0-0.50); EOS % 3.5 % (0.0-3.0); HEMATOCRIT 38.2 % (42.0-52.0); HEMOGLOBIN 12.1 g/dl (13.5-17.5); LYMPH # 1.8 10^3/uL (1.5-4.5); LYMPH % 13.1 % (24.0-44.0); MEAN CORPUSCULAR HEMOGLOBIN 27.9 pg (27.0-33.0); MEAN CORPUSCULAR HGB CONC 31.7 g/dl (32.0-36.5); MEAN CORPUSCULAR VOLUME 88.2 fl (80.0-96.0); MONO # 1.2 10^3/uL (0.0-0.8); MONO % 8.7 % (0.0-5.0); NEUTROPHILS # 10.2 10^3/uL (1.8-7.7); NEUTROPHILS % 73.7 % (36.0-66.0); PLATELET COUNT, AUTOMATED 345 10^3/uL (150-450); RED BLOOD COUNT 4.33 10^6/uL (4.30-6.10); WHITE BLOOD COUNT 13.9 10^3/uL (4.0-10.0)
[2019-03-03 06:58] LABS: BLOOD UREA NITROGEN 26 MG/DL (7-18); CALCIUM LEVEL 8.1 MG/DL (8.8-10.2); CARBON DIOXIDE LEVEL 24 MEQ/L (21-32); CHLORIDE LEVEL 106 MEQ/L (98-107); CREATININE FOR GFR 1.12 MG/DL (0.70-1.30); GLOMERULAR FILTRATION RATE > 60.0 (>49); GLUCOSE, FASTING 106 MG/DL (70-100); MAGNESIUM LEVEL 2.3 MG/DL (1.8-2.4); POTASSIUM SERUM 4.5 MEQ/L (3.5-5.1); SODIUM LEVEL 138 MEQ/L (136-145)
[2019-03-03] MEDS: methylPREDNISolone INJ 40 MG/1 ML VIAL (J2920) IV SCH ×3 (08:10→23:26)
[2019-03-03] MEDS: DABIGATRAN ETEXILATE 75 MG CAP (PRADAXA) PO SCH ×2 (08:11→22:11)
[2019-03-03] MEDS: FINASTERIDE 5 MG TAB PO SCH (08:11)
[2019-03-03] MEDS: AMIODARONE 200 MG TAB (PACERONE) PO SCH (08:11)
[2019-03-03] MEDS: OMEGA-3 1000MG CAPSULE PO SCH (08:11)
[2019-03-03] MEDS: TAMSULOSIN 0.4 MG CAP PO SCH (08:12)
[2019-03-03] MEDS: METOPROLOL TART 25 MG TABLET PO SCH ×2 (08:12→21:00)
[2019-03-03] MEDS: CYANOCOBALAMIN 500 MCG TAB PO SCH (08:12)
[2019-03-03] MEDS: DIGOXIN 0.125 MG TAB PO SCH (08:13)
[2019-03-03] MEDS: FUROSEMIDE 40 MG TAB PO SCH (08:13)
[2019-03-03] MEDS: DOCUSATE SODIUM 100 MG CAP PO SCH (08:14)
[2019-03-03] MEDS: SPIRONOLACTONE 12.5MG PER 1/2 TABLET PO SCH (08:14)
[2019-03-03] MEDS: BETAMETHASONE VAL 0.1% CR 15 GM TOP SCH (08:14)
[2019-03-03] MEDS: VITAMIN D 1,000 INTERNATIONAL UNITS TABLET PO SCH (09:00)
[2019-03-03] MEDS: CEFTAROLINE FOSAMIL 600 MG in D5W MINI-BAG PLUS 50 ML IV SCH ×2 (09:55→22:13)
[2019-03-03] MEDS ORDERED: ACETAMINOPHEN TAB 650MG DOSE (2X325MG) PO PRN (11:45)
[2019-03-03 11:54] VITALS: BP 121/51
--- NOTE | 2019-03-03 12:53 | IPNPDOC ---
Text Note Date of Service The patient was seen on 03/03/19. NOTE Subjective: Patient is a 63-year-old male with a PMHx of Systolic CHF (EF 40%) s/p AICD, Third degree AV block s/p PM, Chronic atrial fibrillation, CAD s/p stent x2 (2014, 2016), LENA on CPAP, DLP, Hypothyroidism, Morbid obesity s/p Gastric bypass, BPH who presented to the emergency room with shortness of breath. 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 In the emergency room, patient was suspected of having pneumonia isn't imaging findings, and was admitted to hospitalist service for further evaluation and treatment. Patient was seen and examined at the bedside. Patient reports that he still experiencing shortness of breath. He reports that his cough has become more dry and is unable to produce much sputum. He denies chest pain or palpitations. Denies nausea, vomiting, abdominal pain, constipation, diarrhea, or urinary discomfort. Objective: Vitals (See below) General: Lying in bed, no acute distress, comfortable, AAOx3 HEENT: NC, AT CVS: RRR, +S1S2 Lungs: Fair air entry b/l, again upon auscultation. He does not appear to be rhonchi, rales or wheezing Abdomen: Soft, ND, NT, morbid obesity Extremities: Trace Edema, - Calf tenderness Imaging: - CXR 03/02: 1. Right upper lobe and bilateral lower lobe infiltrates. 2. Cardiomegaly. - CT chest 03/02: 1. Mixed groundglass and interstitial pneumonitis, right side greater left. Presence of traction bronchiectasis suggests chronic interstitial lung disease with superimposed acute pneumonitis 2. Patchy consolidation bilaterally with mediastinal and hilar adenopathy which has progressed since previous 3. Left sided pulmonary nodules. These were not present on the previous exam and may be inflammatory. For patients at low risk (minimal or absent history of smoking and of other known risk factors), recommend CT at 3-6 months, then consider CT at 18-24 months. For patients at high risk (history of smoking or of other known risk factors), recommend CT at 3-6 months, then CT at 18-24 months. (Mathieu et al., Fleischner Society, 2017) 4. The liver surface is nodular. 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 where he was found to have a oxygen saturation of 78% and advised to come to the emergency room for further evaluation - Patient is hemodynamically stable and afebrile - Physical without any adventitious lung sounds and without any significant fluid overload - ABG noted with hypoxia; there is leukocytosis with neutrophil predominance - BNP noted to be 2236 - Imaging findings are consistent with chronic interstitial lung disease superimposed acute pneumonitis - c/w Ceftaroline (MRSA coverage) - Will repeat BNP and check hypersensitivity workup - Will change to Furosemide 40 IV BID and add Solumedrol - Will discuss with Cardiology about stopping Amiodarone Systolic CHF (EF 40%) s/p AICD - Possibly component of exacerbation - s/p Furosemide 40 IV in ER - Will check ECHO - c/w Digoxin - c/w Metoprolol, Furosemide and Spironolactone Third degree AV block s/p PM Chronic atrial fibrillation - c/w Digoxin and Amiodarone - c/w Full anticoagulation with Pradaxa CAD s/p stent x2 (2014, 2015) - No complaints of chest pain or palpitations - Troponin negative - c/w Nitroglycerin PRN Imaging findings consistent with liver nodularity - Will get ultrasound of the liver to evaluate possibility of cirrhosis given long-standing heart disease LENA on CPAP - May allow home CPAP use DLP - c/w Rosuvastatin and Fish oil Hypothyroidism - c/w Levothyroxine Morbid obesity s/p Gastric bypass BPH - c/w Finasteride and Tamsulosin GERD - c/w Protonix DVT prophylaxis - on full anticoagulation with Pradaxa Disposition: - With the patient corticosteroids and anticipate discharge within next 48 hours VS,Fishbone, I+O VS, Fishbone, I+O Laboratory Tests 03/02/19 15:28 03/02/19 16:15 Red Blood Count 4.21 L, Mean Corpuscular Volume 90.0, Mean Corpuscular Hemoglobin 28.7, Mean Corpuscular Hemoglobin Concent 31.9 L, Red Cell Distribution Width 14.4, Neutrophils (%) (Auto) 74.0 H, Lymphocytes (%) (Auto) 10.7 L, Monocytes (%) (Auto) 11.6 H, Eosinophils (%) (Auto) 2.6, Basophils (%) (Auto) 0.3, Neutrophils # (Auto) 9.8 H, Lymphocytes # (Auto) 1.4 L, Monocytes # (Auto) 1.5 H, Eosinophils # (Auto) 0.4, Basophils # (Auto) 0.0 03/03/19 06:21 Red Blood Count 4.33, Mean Corpuscular Volume 88.2, Mean Corpuscular Hemoglobin 27.9, Mean Corpuscular Hemoglobin Concent 31.7 L, Red Cell Distribution Width 14.3, Neutrophils (%) (Auto) 73.7 H, Lymphocytes (%) (Auto) 13.1 L, Monocytes (%) (Auto) 8.7 H, Eosinophils (%) (Auto) 3.5 H, Basophils (%) (Auto) 0.3, Neutrophils # (Auto) 10.2 H, Lymphocytes # (Auto) 1.8, Monocytes # (Auto) 1.2 H, Eosinophils # (Auto) 0.5, Basophils # (Auto) 0.0, Calcium Level 8.1 L Vital Signs Date Time Temp Pulse Resp B/P (MAP) Pulse Ox O2 Delivery O2 Flow Rate FiO2 03/03/19 11:54 98.6 74 22 121/51 (74) 88 5.0 03/02/19 16:36 Nasal Cannula I&O- Last 24 Hours up to 6 AM 03/03/19 06:00 Intake Total 50 ml Output Total 200 ml Balance -150 ml FRANCESCA LOPES MD Mar 03, 2019 12:53
[2019-03-03] MEDS: FUROSEMIDE 40 MG/4 ML VIAL (J1940) IV SCH ×2 (15:12→15:37)
[2019-03-03 15:30] VITALS: BP 115/57
[2019-03-03] MEDS ORDERED: SLF 3 ML SYR IV PRN (16:15)
[2019-03-03 20:00] VITALS: BP 97/55
[2019-03-03] MEDS: MULTIVITAMINS CHILDREN'S CHEWABLE TABLET PO SCH (21:00)
[2019-03-03] MEDS: PANTOPRAZOLE 40MG TAB (PROTONIX) PO SCH (22:11)
[2019-03-03] MEDS: ENTRESTO 24-26MG TABLET (SACUBITRIL/VALSARTAN) PO SCH (22:11)
[2019-03-03] MEDS: LORATADINE 10 MG TAB PO SCH (22:11)
[2019-03-03] MEDS: FLUTICASONE PROP 0.05% NASAL SPRAY 16 GM (FLONASE) SCH (22:12)
[2019-03-03] MEDS: ASPIRIN 81 MG ENTERIC TAB PO SCH (22:12)
[2019-03-03] MEDS: ROSUVASTATIN 10 MG TAB (CRESTOR) PO SCH (22:12)
[2019-03-03] MEDS: FERROUS SULFATE 325MG TAB PO SCH (22:12)
[2019-03-03] MEDS: SLF 3 ML SYR IV SCH (22:27)
[2019-03-03 23:59] VITALS: BP 115/60
[2019-03-04] VITALS (7 sets, daily range): BP systolic 95–135; BP diastolic 46–81
[2019-03-04] MEDS: IPRATROPIUM 0.5MG/ALBUTEROL 2.5MG INH SOL UD 3ML (DUONEB)(J7620) NEB SCH ×4 (01:47→19:29)
[2019-03-04] MEDS: LEVOTHYROXINE 100MCG TABLET (0.1MG) PO SCH (05:28)
[2019-03-04] MEDS: LEVOTHYROXINE 50MCG TABLET (0.05MG) PO SCH (05:29)
[2019-03-04] MEDS: SLF 3 ML SYR IV SCH ×3 (05:29→21:39)
[2019-03-04 05:41] LABS: BASO % 0.1 % (0.0-1.0); HEMATOCRIT 35.8 % (42.0-52.0); HEMOGLOBIN 11.8 g/dl (13.5-17.5); LYMPH # 0.8 10^3/uL (1.5-4.5); LYMPH % 5.3 % (24.0-44.0); MEAN CORPUSCULAR HEMOGLOBIN 29.6 pg (27.0-33.0); MEAN CORPUSCULAR VOLUME 89.7 fl (80.0-96.0); MONO # 0.7 10^3/uL (0.0-0.8); MONO % 4.7 % (0.0-5.0); NEUTROPHILS # 13.3 10^3/uL (1.8-7.7); NEUTROPHILS % 88.8 % (36.0-66.0); PLATELET COUNT, AUTOMATED 307 10^3/uL (150-450); RED BLOOD COUNT 3.99 10^6/uL (4.30-6.10)
[2019-03-04 06:16] LABS: BLOOD UREA NITROGEN 28 MG/DL (7-18); CARBON DIOXIDE LEVEL 26 MEQ/L (21-32); CHLORIDE LEVEL 105 MEQ/L (98-107); CREATININE FOR GFR 1.02 MG/DL (0.70-1.30); GLOMERULAR FILTRATION RATE > 60.0 (>49); GLUCOSE, FASTING 146 MG/DL (70-100); MAGNESIUM LEVEL 2.5 MG/DL (1.8-2.4); NT-PRO BNP 1688 PG/ML (<125); POTASSIUM SERUM 4.4 MEQ/L (3.5-5.1); SODIUM LEVEL 138 MEQ/L (136-145)
[2019-03-04] MEDS: methylPREDNISolone INJ 40 MG/1 ML VIAL (J2920) IV SCH ×2 (09:07→17:43)
[2019-03-04] MEDS: BETAMETHASONE VAL 0.1% CR 15 GM TOP SCH (09:07)
[2019-03-04] MEDS: VITAMIN D 1,000 INTERNATIONAL UNITS TABLET PO SCH (09:08)
[2019-03-04] MEDS: OMEGA-3 1000MG CAPSULE PO SCH (09:08)
[2019-03-04] MEDS: FINASTERIDE 5 MG TAB PO SCH (09:08)
[2019-03-04] MEDS: CYANOCOBALAMIN 500 MCG TAB PO SCH (09:08)
[2019-03-04] MEDS: guaiFENesin ER 600 MG TAB PO SCH ×2 (09:08→21:39)
[2019-03-04] MEDS: DOCUSATE SODIUM 100 MG CAP PO SCH (09:09)
[2019-03-04] MEDS: CEFTAROLINE FOSAMIL 600 MG in D5W MINI-BAG PLUS 50 ML IV SCH ×2 (09:09→21:39)
[2019-03-04] MEDS: TAMSULOSIN 0.4 MG CAP PO SCH (09:09)
[2019-03-04] MEDS: DIGOXIN 0.125 MG TAB PO SCH (09:09)
[2019-03-04] MEDS: DABIGATRAN ETEXILATE 75 MG CAP (PRADAXA) PO SCH ×2 (09:09→21:39)
[2019-03-04] MEDS: SPIRONOLACTONE 12.5MG PER 1/2 TABLET PO SCH (09:21)
[2019-03-04] MEDS: METOPROLOL TART 25 MG TABLET PO SCH ×2 (09:22→21:39)
--- NOTE | 2019-03-04 11:29 | IPNPDOC ---
Text Note Date of Service The patient was seen on 03/04/19. NOTE Subjective: Patient is a 63-year-old male with a PMHx of Systolic CHF (EF 40%) s/p AICD, Third degree AV block s/p PM, Chronic atrial fibrillation, CAD s/p stent x2 (2014, 2016), LENA on CPAP, DLP, Hypothyroidism, Morbid obesity s/p Gastric bypass, BPH who presented to the emergency room with shortness of breath. 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 In the emergency room, patient was suspected of having pneumonia isn't imaging findings, and was admitted to hospitalist service for further evaluation and treatment. Patient was seen and examined at the bedside. Patient reports that his breathing is relatively unchanged. He denies any significant cough. Report that he's unable to expectorate much sputum. Denies chest pain or palpitations. Denies nausea, vomiting, abdominal pain, constipation or diarrhea Objective: Vitals (See below) General: Lying in bed, no acute distress, comfortable, AAOx3 HEENT: NC, AT CVS: +S1S2 Lungs: Auscultation does not reveal any rhonchi, rales or wheezing. There appears to be fair air entry bilaterally Abdomen: Remains soft without distention or tenderness, but is morbidly obese Extremities: There again appears to be trace edema, - Calf tenderness Imaging: - CXR 03/02: 1. Right upper lobe and bilateral lower lobe infiltrates. 2. Cardiomegaly. - CT chest 03/02: 1. Mixed groundglass and interstitial pneumonitis, right side greater left. Presence of traction bronchiectasis suggests chronic interstitial lung disease with superimposed acute pneumonitis 2. Patchy consolidation bilaterally with mediastinal and hilar adenopathy which has progressed since previous 3. Left sided pulmonary nodules. These were not present on the previous exam and may be inflammatory. For patients at low risk (minimal or absent history of smoking and of other known risk factors), recommend CT at 3-6 months, then consider CT at 18-24 months. For patients at high risk (history of smoking or of other known risk factors), recommend CT at 3-6 months, then CT at 18-24 months. (Mathieu et al., Fleischner Society, 2017) 4. The liver surface is nodular. 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 where he was found to have a oxygen saturation of 78% and advised to come to the emergency room for further evaluation - Patient is hemodynamically stable and afebrile - Again physical exam does not reveal any adventitious lung sounds - ABG noted with hypoxia; - Leukocytosis has increased however this is likely 2/2 corticosteroid - Hypersensitivity workup remains pending - BNP has been trending down - Imaging findings are consistent with chronic interstitial lung disease superimposed acute pneumonitis - c/w Ceftaroline (MRSA coverage) - c/w Solumedrol - will continue with current dosing - c/w Furosemide - will reduce dose - Discussed with Cardiology; patient's lung findings are 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, this has since been discontinued Systolic CHF (EF 40%) s/p AICD - Possibly component of exacerbation - s/p Furosemide 40 IV in ER - ECHO complete report pending - c/w Digoxin - c/w Metoprolol, Furosemide and Spironolactone Third degree AV block s/p PM Chronic atrial fibrillation - c/w Digoxin - s/p Amiodarone - c/w Full anticoagulation with Pradaxa CAD s/p stent x2 (2014, 2015) - No complaints of chest pain or palpitations - Troponin negative - c/w Nitroglycerin PRN Imaging findings consistent with liver nodularity - possibility of cirrhosis given long-standing heart disease - Liver US completed; report pending LENA on CPAP - May allow home CPAP use DLP - c/w Rosuvastatin and Fish oil Hypothyroidism - c/w Levothyroxine Morbid obesity s/p Gastric bypass BPH - c/w Finasteride and Tamsulosin GERD - c/w Protonix DVT prophylaxis - on full anticoagulation with Pradaxa Disposition: - Continue corticosteroids; will evaluate for clinical improvement VS,Fishbone, I+O VS, Fishbone, I+O Laboratory Tests 03/04/19 05:23 Red Blood Count 3.99 L, Mean Corpuscular Volume 89.7, Mean Corpuscular Hemoglobin 29.6, Mean Corpuscular Hemoglobin Concent 33.0, Red Cell Distribution Width 14.1, Neutrophils (%) (Auto) 88.8 H, Lymphocytes (%) (Auto) 5.3 L, Monocytes (%) (Auto) 4.7, Eosinophils (%) (Auto) 0.0, Basophils (%) (Auto) 0.1, Neutrophils # (Auto) 13.3 H, Lymphocytes # (Auto) 0.8 L, Monocytes # (Auto) 0.7, Eosinophils # (Auto) 0.0, Basophils # (Auto) 0.0, Calcium Level 8.0 L Vital Signs Date Time Temp Pulse Resp B/P (MAP) Pulse Ox O2 Delivery O2 Flow Rate FiO2 03/04/19 10:45 89 5.0 03/04/19 09:22 80 135/81 03/04/19 08:00 97.6 20 03/04/19 01:47 Nasal Cannula I&O- Last 24 Hours up to 6 AM 03/04/19 06:00 Intake Total 540 ml Output Total 1625 ml Balance -1085 ml FRANCESCA LOPES MD Mar 04, 2019 11:29
[2019-03-04] MEDS ORDERED: FUROSEMIDE 20 MG/2 ML VIAL (J1940) IV ONE (11:30)
--- NOTE | 2019-03-04 13:24 | REP ---
RIGHT UPPER QUADRANT ULTRASOUND: Real-time sonographic evaluation of the right upper quadrant performed. The gallbladder could not be visualized. It could be contracted. There is no intrahepatic biliary dilatation. The common bile duct is upper limits of normal at 7 mm. There is a cyst in the liver near the isaac hepatis 2.6 x 1.2 x 2.4 cm. Otherwise no gross liver or pancreatic mass is seen. Pancreas is not optimally seen due to overlying bowel gas. Right kidney demonstrates no hydronephrosis with normal size 12.9 cm in length. No free fluid is seen. IMPRESSION: Gallbladder is not visualized. It could be contracted. No significant biliary dilatation. No free fluid. Electronically Signed by Minesh Anderson MD 03/08/2019 09:45 A
[2019-03-04] MEDS ORDERED: MIRALAX *UNIT DOSE* 17GM PACKET PO PRN (15:45)
[2019-03-04] MEDS ORDERED: MOM 30ML SUSPENSION UDC PO PRN (15:45)
--- NOTE | 2019-03-04 19:35 | ECHO ---
DATE OF PROCEDURE: 03/03/2019 Date of : 1955 Age: 63 Gender: Male Height: 75 inches Weight: 405 pounds Body surface area: 2.97 meters squared Inpatient: Progressive care unit (PCU), room 3229 REFERRING PHYSICIAN: Dr. Jenifer Haile INDICATION: Dyspnea. MEASUREMENTS: 2D Measurements: RV: 5.6 cm LV: 6.5 cm Septum: 1.3 cm Posterior wall: 1.3 cm Aortic root: 3.6 cm LA: 5.8 cm LVEF: 50% Doppler Measurements: AV: 1.8 meters per second LVOT: 0.96 meters per second LVOT diameter: 2.0 cm MV-E: 110 Early mitral deceleration time: 194 milliseconds E prime: 5.6, E/E prime ratio: 19.6 Pulmonary capillary wedge pressure: 18 mmHg RVSP: 61 mmHg IVC: 2.6 cm COMMENTS: Underlying atrial fibrillation with consistent ventricular paced rhythm with left bundle branch block configuration. Technically challenging study in light of the patient's body habitus but diagnostically useful information was still obtained. M-mode and two-dimensional echocardiography was performed with pulse, continuous wave, color flow and tissue Doppler studies. Moderately dilated and mildly hypertrophied left ventricle with paradoxical septal motion with flattening of the septum related to right ventricular pacing versus right ventricular pressure overload. Other left ventricular wall segments appeared to move normally. Prominently dilated left atrium with current estimated mean left atrial pressure at least mildly elevated. Very prominently dilated right heart chambers with reduced right ventricular free wall motion and Doppler evidence of fairly severe pulmonary hypertension. Prominently dilated inferior vena cava with virtually absent respiratory collapse in keeping with elevated central venous pressure/right heart failure. Aortic valvular sclerosis without functional abnormality. Normal aortic root size. Mild mitral annular calcification with reduced leaflet motion but no posterior systolic buckling and only mild insufficiency. Normal appearing tricuspid valve with mild insufficiency. Pacing lead can be visualized traversing right heart structures but no separate intracardiac mass. Very small posterior pericardial effusion without evidence of cardiac chamber compression.
[2019-03-04] MEDS: MULTIVITAMINS CHILDREN'S CHEWABLE TABLET PO SCH (21:33)
[2019-03-04] MEDS: ROSUVASTATIN 10 MG TAB (CRESTOR) PO SCH (21:34)
[2019-03-04] MEDS: LORATADINE 10 MG TAB PO SCH (21:34)
[2019-03-04] MEDS: ASPIRIN 81 MG ENTERIC TAB PO SCH (21:34)
[2019-03-04] MEDS: ENTRESTO 24-26MG TABLET (SACUBITRIL/VALSARTAN) PO SCH (21:38)
[2019-03-04] MEDS: PANTOPRAZOLE 40MG TAB (PROTONIX) PO SCH (21:39)
[2019-03-04] MEDS: FERROUS SULFATE 325MG TAB PO SCH (21:39)
[2019-03-04] MEDS: FLUTICASONE PROP 0.05% NASAL SPRAY 16 GM (FLONASE) SCH (21:40)
[2019-03-05] MEDS: methylPREDNISolone INJ 40 MG/1 ML VIAL (J2920) IV SCH ×3 (00:05→16:57)
[2019-03-05] MEDS: IPRATROPIUM 0.5MG/ALBUTEROL 2.5MG INH SOL UD 3ML (DUONEB)(J7620) NEB SCH ×4 (01:27→19:51)
[2019-03-05 04:00] VITALS: BP 125/58
[2019-03-05] MEDS: LEVOTHYROXINE 50MCG TABLET (0.05MG) PO SCH (05:42)
[2019-03-05] MEDS: SLF 3 ML SYR IV SCH ×3 (05:42→22:09)
[2019-03-05] MEDS: LEVOTHYROXINE 100MCG TABLET (0.1MG) PO SCH (05:42)
[2019-03-05 06:02] LABS: BASO % 0.1 % (0.0-1.0); HEMATOCRIT 37.2 % (42.0-52.0); HEMOGLOBIN 11.7 g/dl (13.5-17.5); LYMPH % 6.1 % (24.0-44.0); MEAN CORPUSCULAR HGB CONC 31.5 g/dl (32.0-36.5); MONO # 0.8 10^3/uL (0.0-0.8); NEUTROPHILS # 13.9 10^3/uL (1.8-7.7); NEUTROPHILS % 87.9 % (36.0-66.0); PLATELET COUNT, AUTOMATED 344 10^3/uL (150-450); RED BLOOD COUNT 4.18 10^6/uL (4.30-6.10); WHITE BLOOD COUNT 15.9 10^3/uL (4.0-10.0)
[2019-03-05 06:28] LABS: BLOOD UREA NITROGEN 30 MG/DL (7-18); CALCIUM LEVEL 8.6 MG/DL (8.8-10.2); CARBON DIOXIDE LEVEL 25 MEQ/L (21-32); CHLORIDE LEVEL 106 MEQ/L (98-107); CREATININE FOR GFR 0.98 MG/DL (0.70-1.30); GLOMERULAR FILTRATION RATE > 60.0 (>49); GLUCOSE, FASTING 137 MG/DL (70-100); MAGNESIUM LEVEL 2.4 MG/DL (1.8-2.4); POTASSIUM SERUM 4.7 MEQ/L (3.5-5.1); SODIUM LEVEL 138 MEQ/L (136-145)
[2019-03-05 08:00] VITALS: BP 139/68
[2019-03-05 08:13] LABS: C REACTIVE PROTEIN QUANTITATIV 5.91 MG/DL (0.00-0.30)
[2019-03-05] MEDS: CEFTAROLINE FOSAMIL 600 MG in D5W MINI-BAG PLUS 50 ML IV SCH ×2 (08:40→22:09)
[2019-03-05] MEDS: DABIGATRAN ETEXILATE 75 MG CAP (PRADAXA) PO SCH ×2 (08:42→22:07)
[2019-03-05] MEDS: SPIRONOLACTONE 12.5MG PER 1/2 TABLET PO SCH (08:42)
[2019-03-05] MEDS: FINASTERIDE 5 MG TAB PO SCH (08:42)
[2019-03-05] MEDS: VITAMIN D 1,000 INTERNATIONAL UNITS TABLET PO SCH (08:42)
[2019-03-05] MEDS: METOPROLOL TART 25 MG TABLET PO SCH ×2 (08:43→22:11)
[2019-03-05] MEDS: TAMSULOSIN 0.4 MG CAP PO SCH (08:43)
[2019-03-05] MEDS: CYANOCOBALAMIN 500 MCG TAB PO SCH (08:43)
[2019-03-05] MEDS: DIGOXIN 0.125 MG TAB PO SCH (08:44)
[2019-03-05] MEDS: DOCUSATE SODIUM 100 MG CAP PO SCH (08:44)
[2019-03-05] MEDS: OMEGA-3 1000MG CAPSULE PO SCH (08:44)
[2019-03-05] MEDS: guaiFENesin ER 600 MG TAB PO SCH ×2 (08:44→22:08)
[2019-03-05] MEDS ORDERED: PNEUMOCOCCAL VACCINE 0.5ML SYRINGE(90732) PNEUMOVAX 23 IM ONE (09:00)
[2019-03-05] MEDS: FUROSEMIDE 40 MG/4 ML VIAL (J1940) IV SCH (11:12)
[2019-03-05] MEDS: BETAMETHASONE VAL 0.1% CR 15 GM TOP SCH (11:13)
[2019-03-05 12:00] VITALS: BP 118/61
--- NOTE | 2019-03-05 13:23 | IPNPDOC ---
Text Note Date of Service The patient was seen on 03/05/19. NOTE Subjective: Patient is a 63-year-old male with a PMHx of Systolic CHF (EF 40%) s/p AICD, Third degree AV block s/p PM, Chronic atrial fibrillation, CAD s/p stent x2 (2014, 2016), LENA on CPAP, DLP, Hypothyroidism, Morbid obesity s/p Gastric bypass, BPH who presented to the emergency room with shortness of breath. 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 In the emergency room, patient was suspected of having pneumonia isn't imaging findings, and was admitted to hospitalist service for further evaluation and treatment. Patient was seen and examined at the bedside. Patient reports that his breathing is doing better. Denies any chest pain or palpitations. Has not been making much sputum. Denies any nausea, vomiting, abdominal pain, constipation or diarrhea. Denies any urinary discomfort. Objective: Vitals (See below) General: Lying in bed, no acute distress, comfortable, AAOx3 HEENT: NC, AT CVS: +S1S2 Lungs: Air entry is fair bilaterally without any rhonchi, rales or wheezing Abdomen: Morbidly obese but remains soft without distention or tenderness Extremities: Lower extremities do not reveal any significant edema, - Calf tenderness Imaging: - CXR 03/02: 1. Right upper lobe and bilateral lower lobe infiltrates. 2. Cardiomegaly. - CT chest 03/02: 1. Mixed groundglass and interstitial pneumonitis, right side greater left. Presence of traction bronchiectasis suggests chronic interstitial lung disease with superimposed acute pneumonitis 2. Patchy consolidation bilaterally with mediastinal and hilar adenopathy which has progressed since previous 3. Left sided pulmonary nodules. These were not present on the previous exam and may be inflammatory. For patients at low risk (minimal or absent history of smoking and of other known risk factors), recommend CT at 3-6 months, then consider CT at 18-24 months. For patients at high risk (history of smoking or of other known risk factors), recommend CT at 3-6 months, then CT at 18-24 months. (Mathieu et al., Fleischner Society, 2017) 4. The liver surface is nodular. 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 where he was found to have a oxygen saturation of 78% and advised to come to the emergency room for further eval uation - Patient is hemodynamically stable and afebrile - Again physical exam does not reveal any adventitious lung sounds - ABG noted with hypoxia; - Leukocytosis again remains elevated however this is likely 2/2 corticosteroid; CRP has been trending down - Hypersensitivity workup remains pending - BNP has been trending down - Imaging findings are consistent with chronic interstitial lung disease superimposed acute pneumonitis - c/w Ceftaroline (MRSA coverage) - Day #4 - c/w Solumedrol - will continue with current dosing - c/w Furosemide 40 IV daily - Discussed with Cardiology; patient's lung findings are 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, this has since been discontinued Systolic CHF (EF 40%) s/p AICD - Possibly component of exacerbation - s/p Furosemide 40 IV in ER - ECHO complete report pending - c/w Digoxin - c/w Metoprolol, Furosemide and Spironolactone - c/w Entresto; will likely increase dose tomorrow Third degree AV block s/p PM Chronic atrial fibrillation - c/w Digoxin - s/p Amiodarone - c/w Full anticoagulation with Pradaxa CAD s/p stent x2 (2014, 2015) - No complaints of chest pain or palpitations - Troponin negative - c/w Nitroglycerin PRN Imaging findings consistent with liver nodularity - possibility of cirrhosis given long-standing heart disease - Liver US completed; report pending LENA on CPAP - May allow home CPAP use DLP - c/w Rosuvastatin and Fish oil Hypothyroidism - c/w Levothyroxine Morbid obesity s/p Gastric bypass BPH - c/w Finasteride and Tamsulosin GERD - c/w Protonix DVT prophylaxis - on full anticoagulation with Pradaxa Disposition: - Continue corticosteroids - Anticipate that we will titrate down corticosteroids within the next 24 hours VS,Fishbone, I+O VS, Fishbone, I+O Laboratory Tests 03/05/19 05:38 Red Blood Count 4.18 L, Mean Corpuscular Volume 89.0, Mean Corpuscular Hemoglobin 28.0, Mean Corpuscular Hemoglobin Concent 31.5 L, Red Cell Distribution Width 14.3, Neutrophils (%) (Auto) 87.9 H, Lymphocytes (%) (Auto) 6.1 L, Monocytes (%) (Auto) 5.0, Eosinophils (%) (Auto) 0.0, Basophils (%) (Auto) 0.1, Neutrophils # (Auto) 13.9 H, Lymphocytes # (Auto) 1.0 L, Monocytes # (Auto) 0.8, Eosinophils # (Auto) 0.0, Basophils # (Auto) 0.0, Calcium Level 8.6 L Vital Signs Date Time Temp Pulse Resp B/P (MAP) Pulse Ox O2 Delivery O2 Flow Rate FiO2 03/05/19 08:44 79 03/05/19 08:43 139/68 03/05/19 08:00 97.5 20 91 5.0 03/04/19 01:47 Nasal Cannula I&O- Last 24 Hours up to 6 AM 03/05/19 06:00 Intake Total 1640 ml Output Total 1925 ml Balance -285 ml FRANCESCA LOPES MD Mar 05, 2019 13:23
[2019-03-05 16:00] VITALS: BP 115/53
[2019-03-05 20:00] VITALS: BP 109/52
[2019-03-05] MEDS: LORATADINE 10 MG TAB PO SCH (22:07)
[2019-03-05] MEDS: ROSUVASTATIN 10 MG TAB (CRESTOR) PO SCH (22:07)
[2019-03-05] MEDS: ASPIRIN 81 MG ENTERIC TAB PO SCH (22:07)
[2019-03-05] MEDS: MULTIVITAMINS CHILDREN'S CHEWABLE TABLET PO SCH (22:08)
[2019-03-05] MEDS: FERROUS SULFATE 325MG TAB PO SCH (22:08)
[2019-03-05] MEDS: PANTOPRAZOLE 40MG TAB (PROTONIX) PO SCH (22:08)
[2019-03-05] MEDS: ENTRESTO 24-26MG TABLET (SACUBITRIL/VALSARTAN) PO SCH (22:11)
[2019-03-05] MEDS: FLUTICASONE PROP 0.05% NASAL SPRAY 16 GM (FLONASE) SCH (22:12)
[2019-03-06] VITALS (7 sets, daily range): BP systolic 114–137; BP diastolic 51–66
[2019-03-06] MEDS: methylPREDNISolone INJ 40 MG/1 ML VIAL (J2920) IV SCH ×3 (00:13→20:33)
[2019-03-06] MEDS: IPRATROPIUM 0.5MG/ALBUTEROL 2.5MG INH SOL UD 3ML (DUONEB)(J7620) NEB SCH ×4 (01:16→19:47)
[2019-03-06 05:45] LABS: BASO % 0.1 % (0.0-1.0); HEMATOCRIT 39.4 % (42.0-52.0); HEMOGLOBIN 12.3 g/dl (13.5-17.5); LYMPH % 6.4 % (24.0-44.0); MEAN CORPUSCULAR HEMOGLOBIN 28.3 pg (27.0-33.0); MEAN CORPUSCULAR HGB CONC 31.2 g/dl (32.0-36.5); MEAN CORPUSCULAR VOLUME 90.8 fl (80.0-96.0); MONO # 0.7 10^3/uL (0.0-0.8); MONO % 4.5 % (0.0-5.0); NEUTROPHILS # 13.8 10^3/uL (1.8-7.7); NEUTROPHILS % 87.8 % (36.0-66.0); PLATELET COUNT, AUTOMATED 357 10^3/uL (150-450); RED BLOOD COUNT 4.34 10^6/uL (4.30-6.10); WHITE BLOOD COUNT 15.7 10^3/uL (4.0-10.0)
[2019-03-06 06:14] LABS: BLOOD UREA NITROGEN 31 MG/DL (7-18); C REACTIVE PROTEIN QUANTITATIV 2.81 MG/DL (0.00-0.30); CARBON DIOXIDE LEVEL 27 MEQ/L (21-32); CHLORIDE LEVEL 104 MEQ/L (98-107); GLOMERULAR FILTRATION RATE > 60.0 (>49); GLUCOSE, FASTING 139 MG/DL (70-100); MAGNESIUM LEVEL 2.5 MG/DL (1.8-2.4); POTASSIUM SERUM 4.9 MEQ/L (3.5-5.1); SODIUM LEVEL 138 MEQ/L (136-145)
[2019-03-06] MEDS: LEVOTHYROXINE 100MCG TABLET (0.1MG) PO SCH (06:18)
[2019-03-06] MEDS: SLF 3 ML SYR IV SCH ×3 (06:18→22:39)
[2019-03-06] MEDS: LEVOTHYROXINE 50MCG TABLET (0.05MG) PO SCH (06:18)
[2019-03-06] MEDS: BETAMETHASONE VAL 0.1% CR 15 GM TOP SCH (08:46)
[2019-03-06] MEDS: FINASTERIDE 5 MG TAB PO SCH (09:14)
[2019-03-06] MEDS: VITAMIN D 1,000 INTERNATIONAL UNITS TABLET PO SCH (09:14)
[2019-03-06] MEDS: OMEGA-3 1000MG CAPSULE PO SCH (09:15)
[2019-03-06] MEDS: METOPROLOL TART 25 MG TABLET PO SCH ×2 (09:15→20:36)
[2019-03-06] MEDS: SPIRONOLACTONE 12.5MG PER 1/2 TABLET PO SCH (09:15)
[2019-03-06] MEDS: guaiFENesin ER 600 MG TAB PO SCH ×2 (09:15→20:36)
[2019-03-06] MEDS: CYANOCOBALAMIN 500 MCG TAB PO SCH (09:15)
[2019-03-06] MEDS: DIGOXIN 0.125 MG TAB PO SCH (09:15)
[2019-03-06] MEDS: DOCUSATE SODIUM 100 MG CAP PO SCH (09:16)
[2019-03-06] MEDS: CEFTAROLINE FOSAMIL 600 MG in D5W MINI-BAG PLUS 50 ML IV SCH (09:16)
[2019-03-06] MEDS: FUROSEMIDE 40 MG/4 ML VIAL (J1940) IV SCH (09:16)
[2019-03-06] MEDS: TAMSULOSIN 0.4 MG CAP PO SCH (09:16)
[2019-03-06] MEDS: DABIGATRAN ETEXILATE 75 MG CAP (PRADAXA) PO SCH ×2 (09:16→20:35)
--- NOTE | 2019-03-06 10:30 | IPNPDOC ---
Text Note Date of Service The patient was seen on 03/06/19. NOTE Subjective: Patient is a 63-year-old male with a PMHx of Systolic CHF (EF 40%) s/p AICD, Third degree AV block s/p PM, Chronic atrial fibrillation, CAD s/p stent x2 (2014, 2016), LENA on CPAP, DLP, Hypothyroidism, Morbid obesity s/p Gastric bypass, BPH who presented to the emergency room with shortness of breath. 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 In the emergency room, patient was suspected of having pneumonia isn't imaging findings, and was admitted to hospitalist service for further evaluation and treatment. Patient was seen and examined at the bedside. Patient reports that his breathing is doing better. . He reports that he has not been expressing significant cough. Denies chest pain or palpitations. Denies any N/V, abdominal pain, C/D or dysuria. Objective: Vitals (See below) General: Lying in bed, no acute distress, comfortable, AAOx3 HEENT: NC, AT CVS: +S1S2 Lungs: Air entry is fair bilaterally without any rhonchi, rales or wheezing Abdomen: Morbidly obese but remains soft without distention or tenderness Extremities: Lower extremities do not reveal any significant edema, - Calf tenderness Imaging: - CXR 03/02: 1. Right upper lobe and bilateral lower lobe infiltrates. 2. Cardiomegaly. - CT chest 03/02: 1. Mixed groundglass and interstitial pneumonitis, right side greater left. Presence of traction bronchiectasis suggests chronic interstitial lung disease with superimposed acute pneumonitis 2. Patchy consolidation bilaterally with mediastinal and hilar adenopathy which has progressed since previous 3. Left sided pulmonary nodules. These were not present on the previous exam and may be inflammatory. For patients at low risk (minimal or absent history of smoking and of other known risk factors), recommend CT at 3-6 months, then consider CT at 18-24 months. For patients at high risk (history of smoking or of other known risk factors), recommend CT at 3-6 months, then CT at 18-24 months. (Mathieu et al., Fleischner Society, 2017) 4. The liver surface is nodular. Underlying cirrhosis among the diagnostic considerations Assessment and plan: Acute hypoxic respiratory failure - likely 2/2 pneumonitis - 2/2 amiodarone; possibly 2/2 fluid overload, less likely 2/2 pneumonia (community acquired) - As an outpatient he reported reported hypoxia at senior accountant cpa office; Currently is having clinical improvement - Patient is hemodynamically stable and afebrile - Physical with mild crackles at right lung base - ABG noted with hypoxia; - Leukocytosis again remains elevated however this is likely 2/2 corticosteroid; CRP continues to trend down - Hypersensitivity workup remains pending - BNP has been trending down - Imaging findings are consistent with chronic interstitial lung disease superimposed acute pneumonitis - Will start Cefdinir; Will DC Ceftaroline - Antibiotic day #5 - Will reduce dose of Solumedrol - c/w Furosemide 40 IV daily; will transition to oral tomorrow - Discussed with Cardiology; patient's lung findings are 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, this has since been discontinued Systolic CHF (EF 40%) s/p AICD - Possibly component of exacerbation - s/p Furosemide 40 IV in ER - ECHO 03/03: EF 50%, very small posterior pericardial effusion - c/w Digoxin - c/w Metoprolol, Furosemide and Spironolactone - c/w Entresto; will increase dose to twice daily Third degree AV block s/p PM Chronic atrial fibrillation - c/w Digoxin - s/p Amiodarone - c/w Full anticoagulation with Pradaxa CAD s/p stent x2 (2014, 2015) - No complaints of chest pain or palpitations - Troponin negative - c/w Nitroglycerin PRN Imaging findings consistent with liver nodularity - possibility of cirrhosis given long-standing heart disease - Liver US completed; report pending LENA on CPAP - May allow home CPAP use DLP - c/w Rosuvastatin and Fish oil Hypothyroidism - c/w Levothyroxine Morbid obesity s/p Gastric bypass BPH - c/w Finasteride and Tamsulosin GERD - c/w Protonix DVT prophylaxis - on full anticoagulation with Pradaxa Disposition: - Continue corticosteroids; will reduce dose - Transition to oral antibiotics - c/w Furosemide IV VS,Fishbone, I+O VS, Fishbone, I+O Laboratory Tests 03/06/19 05:20 Red Blood Count 4.34, Mean Corpuscular Volume 90.8, Mean Corpuscular Hemoglobin 28.3, Mean Corpuscular Hemoglobin Concent 31.2 L, Red Cell Distribution Width 14.1, Neutrophils (%) (Auto) 87.8 H, Lymphocytes (%) (Auto) 6.4 L, Monocytes (%) (Auto) 4.5, Eosinophils (%) (Auto) 0.0, Basophils (%) (Auto) 0.1, Neutrophils # (Auto) 13.8 H, Lymphocytes # (Auto) 1.0 L, Monocytes # (Auto) 0.7, Eosinophils # (Auto) 0.0, Basophils # (Auto) 0.0, Calcium Level 8.0 L Vital Signs Date Time Temp Pulse Resp B/P (MAP) Pulse Ox O2 Delivery O2 Flow Rate FiO2 03/06/19 09:15 77 03/06/19 09:15 130/65 03/06/19 08:00 97.1 20 90 3.0 03/04/19 01:47 Nasal Cannula I&O- Last 24 Hours up to 6 AM 03/06/19 06:00 Intake Total 1730 ml Output Total 3000 ml Balance -1270 ml FRANCESCA LOPES MD Mar 06, 2019 10:30
[2019-03-06] MEDS ORDERED: CALCIUM CARBONATE 500 MG CHEW U/D PO ONE (13:30)
[2019-03-06] MEDS: MULTIVITAMINS CHILDREN'S CHEWABLE TABLET PO SCH (20:33)
[2019-03-06] MEDS: ROSUVASTATIN 10 MG TAB (CRESTOR) PO SCH (20:33)
[2019-03-06] MEDS: CEFDINIR 300 MG CAP (OMNICEF) PO SCH (20:34)
[2019-03-06] MEDS: FERROUS SULFATE 325MG TAB PO SCH (20:34)
[2019-03-06] MEDS: PANTOPRAZOLE 40MG TAB (PROTONIX) PO SCH (20:35)
[2019-03-06] MEDS: ASPIRIN 81 MG ENTERIC TAB PO SCH (20:36)
[2019-03-06] MEDS: LORATADINE 10 MG TAB PO SCH (20:36)
[2019-03-06] MEDS: FLUTICASONE PROP 0.05% NASAL SPRAY 16 GM (FLONASE) SCH (20:37)
[2019-03-06] MEDS ORDERED: ENTRESTO 24-26MG TABLET (SACUBITRIL/VALSARTAN) PO SCH (21:00)
[2019-03-07] MEDS: IPRATROPIUM 0.5MG/ALBUTEROL 2.5MG INH SOL UD 3ML (DUONEB)(J7620) NEB SCH ×4 (01:50→20:02)
[2019-03-07 04:00] VITALS: BP 121/59
[2019-03-07 05:09] LABS: BASO % 0.2 % (0.0-1.0); HEMATOCRIT 39.5 % (42.0-52.0); HEMOGLOBIN 12.4 g/dl (13.5-17.5); LYMPH # 1.1 10^3/uL (1.5-4.5); LYMPH % 6.2 % (24.0-44.0); MEAN CORPUSCULAR HEMOGLOBIN 27.7 pg (27.0-33.0); MEAN CORPUSCULAR HGB CONC 31.4 g/dl (32.0-36.5); MEAN CORPUSCULAR VOLUME 88.4 fl (80.0-96.0); MONO # 1.1 10^3/uL (0.0-0.8); MONO % 5.9 % (0.0-5.0); NEUTROPHILS # 15.3 10^3/uL (1.8-7.7); NEUTROPHILS % 85.9 % (36.0-66.0); PLATELET COUNT, AUTOMATED 392 10^3/uL (150-450); RED BLOOD COUNT 4.47 10^6/uL (4.30-6.10); WHITE BLOOD COUNT 17.8 10^3/uL (4.0-10.0)
[2019-03-07 05:28] LABS: BLOOD UREA NITROGEN 31 MG/DL (7-18); C REACTIVE PROTEIN QUANTITATIV 1.43 MG/DL (0.00-0.30); CALCIUM LEVEL 8.2 MG/DL (8.8-10.2); CARBON DIOXIDE LEVEL 27 MEQ/L (21-32); CHLORIDE LEVEL 105 MEQ/L (98-107); CREATININE FOR GFR 0.99 MG/DL (0.70-1.30); GLOMERULAR FILTRATION RATE > 60.0 (>49); GLUCOSE, FASTING 141 MG/DL (70-100); MAGNESIUM LEVEL 2.7 MG/DL (1.8-2.4); POTASSIUM SERUM 4.8 MEQ/L (3.5-5.1); SODIUM LEVEL 138 MEQ/L (136-145)
[2019-03-07] MEDS: LEVOTHYROXINE 100MCG TABLET (0.1MG) PO SCH (06:41)
[2019-03-07] MEDS: LEVOTHYROXINE 50MCG TABLET (0.05MG) PO SCH (06:41)
[2019-03-07] MEDS: SLF 3 ML SYR IV SCH ×3 (06:41→20:58)
[2019-03-07 07:33] LABS: NT-PRO BNP 855 PG/ML (<125)
[2019-03-07 08:00] VITALS: BP 108/60
[2019-03-07] MEDS: METOPROLOL TART 25 MG TABLET PO SCH ×2 (09:00→20:57)
[2019-03-07] MEDS: FUROSEMIDE 40 MG/4 ML VIAL (J1940) IV SCH (09:00)
[2019-03-07] MEDS: SPIRONOLACTONE 12.5MG PER 1/2 TABLET PO SCH (09:00)
[2019-03-07] MEDS: guaiFENesin ER 600 MG TAB PO SCH ×2 (09:22→20:55)
[2019-03-07] MEDS: CYANOCOBALAMIN 500 MCG TAB PO SCH (09:22)
[2019-03-07] MEDS: OMEGA-3 1000MG CAPSULE PO SCH (09:22)
[2019-03-07] MEDS: TAMSULOSIN 0.4 MG CAP PO SCH (09:22)
[2019-03-07] MEDS: DABIGATRAN ETEXILATE 75 MG CAP (PRADAXA) PO SCH ×2 (09:23→20:54)
[2019-03-07] MEDS: CEFDINIR 300 MG CAP (OMNICEF) PO SCH ×2 (09:23→20:55)
[2019-03-07] MEDS: FINASTERIDE 5 MG TAB PO SCH (09:23)
[2019-03-07] MEDS: VITAMIN D 1,000 INTERNATIONAL UNITS TABLET PO SCH (09:23)
[2019-03-07] MEDS: DOCUSATE SODIUM 100 MG CAP PO SCH (09:23)
[2019-03-07] MEDS: methylPREDNISolone INJ 40 MG/1 ML VIAL (J2920) IV SCH (09:24)
[2019-03-07] MEDS: BETAMETHASONE VAL 0.1% CR 15 GM TOP SCH (09:24)
[2019-03-07] MEDS: DIGOXIN 0.125 MG TAB PO SCH (09:24)
[2019-03-07] MEDS: DOXYCYCLINE HYCLATE 100 MG TAB PO SCH ×2 (11:13→20:55)
--- NOTE | 2019-03-07 11:44 | IPNPDOC ---
Text Note Date of Service The patient was seen on 03/07/19. NOTE Subjective: Patient is a 63-year-old male with a PMHx of Systolic CHF (EF 40%) s/p AICD, Third degree AV block s/p PM, Chronic atrial fibrillation, CAD s/p stent x2 (2014, 2016), LENA on CPAP, DLP, Hypothyroidism, Morbid obesity s/p Gastric bypass, BPH who presented to the emergency room with shortness of breath. 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 In the emergency room, patient was suspected of having pneumonia isn't imaging findings, and was admitted to hospitalist service for further evaluation and treatment. Patient was seen and examined at the bedside. Patient reports that his breathing is doing better. Denies chest pain or palpitations. Reports that he's not expectorating much. Denies nausea, vomiting, abdominal pain, constipation, diarrhea, or urinary discomfort. Reports that his lower extremity swelling is improving. Objective: Vitals (See below) General: Lying in bed, no acute distress, comfortable, AAOx3 HEENT: NC, AT CVS: +S1S2 Lungs: Air entry is fair bilaterally. No auscultated rhonchi, rales or wheezing Abdomen: Soft, nondistended, nontender, morbid obesity Extremities: No edema of lower extremities, - Calf tenderness, Left foot SSTI (small area of drainage; no warmth / tenderness noted) Imaging: - CXR 03/02: 1. Right upper lobe and bilateral lower lobe infiltrates. 2. Cardiomegaly. - CT chest 03/02: 1. Mixed groundglass and interstitial pneumonitis, right side greater left. Presence of traction bronchiectasis suggests chronic interstitial lung disease with superimposed acute pneumonitis 2. Patchy consolidation bilaterally with mediastinal and hilar adenopathy which has progressed since previous 3. Left si ded pulmonary nodules. These were not present on the previous exam and may be inflammatory. For patients at low risk (minimal or absent history of smoking and of other known risk factors), recommend CT at 3-6 months, then consider CT at 18-24 months. For patients at high risk (history of smoking or of other known risk factors), recommend CT at 3-6 months, then CT at 18-24 months. (Mathieu et al., Fleischner Society, 2017) 4. The liver surface is nodular. Underlying cirrhosis among the diagnostic considerations - Liver US 03/04: Gallbladder is not visualized. It could be contracted. No significant biliary dilatation. No free fluid. 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; Currently is having clinical improvement - Patient is hemodynamically stable and afebrile - Physical with mild crackles at right lung base - ABG noted with hypoxia; - Leukocytosis again remains elevated however this is likely 2/2 corticosteroid; CRP continues to trend down - Hypersensitivity workup remains pending - BNP has been trending down - Imaging findings are consistent with chronic interstitial lung disease superimposed acute pneumonitis - c/w Cefdinir; s/p Ceftaroline - Antibiotic day #5 - Will start Prednisone; Will DC Solumedrol - c/w Furosemide 40 IV daily; will transition to oral tomorrow - Discussed with Cardiology; patient's lung findings are 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, this has since been discontinued Systolic CHF (EF 40%) s/p AICD - Possibly component of exacerbation - s/p Furosemide 40 IV in ER - ECHO 03/03: EF 50%, very small posterior pericardial effusion - c/w Digoxin - c/w Metoprolol, Furosemide and Spironolactone - c/w Entresto; will owens to BID dosing Third degree AV block s/p PM Chronic atrial fibrillation - c/w Digoxin - s/p Amiodarone - c/w Full anticoagulation with Pradaxa CAD s/p stent x2 (2014, 2015) - No complaints of chest pain or palpitations - Troponin negative - c/w Nitroglycerin PRN Imaging findings consistent with liver nodularity - possibility of cirrhosis given long-standing heart disease - Liver US completed without any acute abnormalities Left foot SSTI - Recent culture from 03/02: MRSA - Will add Doxycycline to cover (MRSA); has been covered initially with Ceftaroline LENA on CPAP - May allow home CPAP use DLP - c/w Rosuvastatin and Fish oil Hypothyroidism - c/w Levothyroxine Morbid obesity s/p Gastric bypass BPH - c/w Finasteride and Tamsulosin GERD - c/w Protonix DVT prophylaxis - on full anticoagulation with Pradaxa Disposition: - Transition to oral diuretics / corticosteroids VS,Brook, I+O VS, Brook, I+O Laboratory Tests 03/07/19 04:49 Red Blood Count 4.47, Mean Corpuscular Volume 88.4, Mean Corpuscular Hemoglobin 27.7, Mean Corpuscular Hemoglobin Concent 31.4 L, Red Cell Distribution Width 14.1, Neutrophils (%) (Auto) 85.9 H, Lymphocytes (%) (Auto) 6.2 L, Monocytes (%) (Auto) 5.9 H, Eosinophils (%) (Auto) 0.0, Basophils (%) (Auto) 0.2, Neutrophils # (Auto) 15.3 H, Lymphocytes # (Auto) 1.1 L, Monocytes # (Auto) 1.1 H, Eosinophils # (Auto) 0.0, Basophils # (Auto) 0.0, Calcium Level 8.2 L Vital Signs Date Time Temp Pulse Resp B/P (MAP) Pulse Ox O2 Delivery O2 Flow Rate FiO2 03/07/19 09:24 69 03/07/19 09:00 108/60 03/07/19 08:00 97.5 22 90 03/07/19 08:00 2.0 03/06/19 19:48 Nasal Cannula I&O- Last 24 Hours up to 6 AM 03/07/19 06:00 Intake Total 1740 ml Output Total 3775 ml Balance -2035 ml FRANCESCA LOPES MD Mar 07, 2019 11:44
[2019-03-07 12:00] VITALS: BP 127/59
[2019-03-07 16:00] VITALS: BP 132/59
[2019-03-07] MEDS ORDERED: predniSONE 20 MG TAB PO ONE (16:00)
[2019-03-07 20:00] VITALS: BP 128/58
[2019-03-07] MEDS: MULTIVITAMINS CHILDREN'S CHEWABLE TABLET PO SCH (20:55)
[2019-03-07] MEDS: LORATADINE 10 MG TAB PO SCH (20:55)
[2019-03-07 20:56] VITALS: BP 102/58
[2019-03-07] MEDS: FERROUS SULFATE 325MG TAB PO SCH (20:56)
[2019-03-07] MEDS: ASPIRIN 81 MG ENTERIC TAB PO SCH (20:56)
[2019-03-07] MEDS: ROSUVASTATIN 10 MG TAB (CRESTOR) PO SCH (20:56)
[2019-03-07] MEDS: PANTOPRAZOLE 40MG TAB (PROTONIX) PO SCH (20:56)
[2019-03-07] MEDS: ENTRESTO 24-26MG TABLET (SACUBITRIL/VALSARTAN) PO SCH (20:56)
[2019-03-07] MEDS: FLUTICASONE PROP 0.05% NASAL SPRAY 16 GM (FLONASE) SCH (20:58)
[2019-03-08] MEDS: IPRATROPIUM 0.5MG/ALBUTEROL 2.5MG INH SOL UD 3ML (DUONEB)(J7620) NEB SCH ×3 (01:35→13:03)
[2019-03-08 04:00] VITALS: BP 138/62
[2019-03-08 05:52] LABS: BASO % 0.2 % (0.0-1.0); HEMATOCRIT 40.4 % (42.0-52.0); HEMOGLOBIN 12.7 g/dl (13.5-17.5); LYMPH # 1.4 10^3/uL (1.5-4.5); LYMPH % 7.8 % (24.0-44.0); MEAN CORPUSCULAR HEMOGLOBIN 27.9 pg (27.0-33.0); MEAN CORPUSCULAR HGB CONC 31.4 g/dl (32.0-36.5); MEAN CORPUSCULAR VOLUME 88.6 fl (80.0-96.0); MONO # 1.3 10^3/uL (0.0-0.8); MONO % 7.5 % (0.0-5.0); NEUTROPHILS # 14.5 10^3/uL (1.8-7.7); NEUTROPHILS % 81.4 % (36.0-66.0); PLATELET COUNT, AUTOMATED 367 10^3/uL (150-450); RED BLOOD COUNT 4.56 10^6/uL (4.30-6.10); WHITE BLOOD COUNT 17.8 10^3/uL (4.0-10.0)
[2019-03-08] MEDS: SLF 3 ML SYR IV SCH (06:06)
[2019-03-08] MEDS: LEVOTHYROXINE 50MCG TABLET (0.05MG) PO SCH (06:06)
[2019-03-08] MEDS: LEVOTHYROXINE 100MCG TABLET (0.1MG) PO SCH (06:06)
[2019-03-08 06:09] LABS: BLOOD UREA NITROGEN 28 MG/DL (7-18); C REACTIVE PROTEIN QUANTITATIV 0.73 MG/DL (0.00-0.30); CALCIUM LEVEL 7.8 MG/DL (8.8-10.2); CARBON DIOXIDE LEVEL 29 MEQ/L (21-32); CHLORIDE LEVEL 104 MEQ/L (98-107); CREATININE FOR GFR 0.96 MG/DL (0.70-1.30); GLOMERULAR FILTRATION RATE > 60.0 (>49); GLUCOSE, FASTING 122 MG/DL (70-100); MAGNESIUM LEVEL 2.6 MG/DL (1.8-2.4); POTASSIUM SERUM 4.7 MEQ/L (3.5-5.1); SODIUM LEVEL 138 MEQ/L (136-145)
[2019-03-08 06:17] VITALS: BP 145/73
[2019-03-08] MEDS: OMEGA-3 1000MG CAPSULE PO SCH (08:50)
[2019-03-08] MEDS: DOXYCYCLINE HYCLATE 100 MG TAB PO SCH (08:50)
[2019-03-08 08:51] VITALS: BP 145/73
[2019-03-08] MEDS: CEFDINIR 300 MG CAP (OMNICEF) PO SCH (08:51)
[2019-03-08] MEDS: METOPROLOL TART 25 MG TABLET PO SCH (08:51)
[2019-03-08] MEDS: CYANOCOBALAMIN 500 MCG TAB PO SCH (08:51)
[2019-03-08] MEDS: VITAMIN D 1,000 INTERNATIONAL UNITS TABLET PO SCH (08:51)
[2019-03-08] MEDS: ENTRESTO 24-26MG TABLET (SACUBITRIL/VALSARTAN) PO SCH (08:51)
[2019-03-08] MEDS: TAMSULOSIN 0.4 MG CAP PO SCH (08:52)
[2019-03-08] MEDS: DABIGATRAN ETEXILATE 75 MG CAP (PRADAXA) PO SCH (08:52)
[2019-03-08] MEDS: guaiFENesin ER 600 MG TAB PO SCH (08:52)
[2019-03-08] MEDS: DOCUSATE SODIUM 100 MG CAP PO SCH (08:52)
[2019-03-08] MEDS: SPIRONOLACTONE 12.5MG PER 1/2 TABLET PO SCH (08:52)
[2019-03-08] MEDS: DIGOXIN 0.125 MG TAB PO SCH (08:53)
[2019-03-08] MEDS: FINASTERIDE 5 MG TAB PO SCH (08:53)
[2019-03-08] MEDS: BETAMETHASONE VAL 0.1% CR 15 GM TOP SCH (08:57)
[2019-03-08] MEDS ORDERED: FUROSEMIDE 40 MG TAB PO SCH (09:00)
[2019-03-08] MEDS ORDERED: predniSONE 20 MG TAB PO SCH (09:00)
[2019-03-08] MEDS ORDERED: ENTR1TAB PO (10:46)
[2019-03-08] MEDS ORDERED: DOXY100T PO (10:46)
[2019-03-08] MEDS ORDERED: CEFD300CAP PO (10:46)
[2019-03-08] MEDS ORDERED: MUCI600T31 PO (10:46)
[2019-03-08] MEDS ORDERED: PRED10TA2 PO (10:46)
--- NOTE | 2019-03-08 12:44 | DS.PDOC ---
Discharge Summary General Date of Admission Mar 02, 2019 at 18:12 Date of Discharge 03/08/2019 Discharge Summary PROCEDURES PERFORMED DURING STAY: [None]. ADMITTING DIAGNOSES / DISCHARGE DIAGNOSES: Acute hypoxic respiratory failure - likely 2/2 pneumonitis - 2/2 amiodarone; possibly 2/2 fluid overload, less likely 2/2 pneumonia (community acquired) Systolic CHF (EF 40%) s/p AICD Third degree AV block s/p PM Chronic atrial fibrillation CAD s/p stent x2 (2014, 2015) Imaging findings consistent with liver nodularity - possibility of cirrhosis given long-standing heart disease Left foot SSTI LENA on CPAP DLP Hypothyroidism Morbid obesity s/p Gastric bypass BPH GERD DVT prophylaxis COMPLICATIONS/CHIEF COMPLAINT: Shortness of breath HISTORY OF PRESENT ILLNESS: Patient is a 63-year-old male with a PMHx of Systolic CHF (EF 40%) s/p AICD, Third degree AV block s/p PM, Chronic atrial fibrillation, CAD s/p stent x2 (2014, 2015), LENA on CPAP, DLP, Hypothyroidism, Morbid obesity s/p Gastric bypass, BPH who presented to the emergency room with shortness of breath. 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 In the emergency room, patient was suspected of having pneumonia isn't imaging findings, and was admitted to hospitalist service for further evaluation and treatment. HOSPITAL COURSE: Acute hypoxic respiratory failure - likely 2/2 amiodarone induced pneumonitis; possibly 2/2 fluid overload, less likely 2/2 pneumonia (community acquired) - Clinically has had signficant improvement; has been brought down to 1 L NS; - will require outpatient PR oxygen to maintain saturation >90% while ambulatory - Patient is hemodynamically stable and afebrile - Physical with mild crackles at right lung base - ABG noted with hypoxia; - Leukocytosis again remains elevated however this is likely 2/2 corticosteroid; CRP continues to trend down - Hypersensitivity workup remains pending - BNP has been trending down - Imaging findings are consistent with chronic interstitial lung disease superimposed acute pneumonitis - c/w Cefdinir; s/p Ceftaroline - Antibiotic day #5 - c/w Prednisone - with taper upon discharge; Will DC Solumedrol - c/w Furosemide 40 PO daily - Discussed with Cardiology; patient's lung findings are 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, this has since been discontinued Systolic CHF (EF 40%) s/p AICD - Possibly component of exacerbation - s/p Furosemide 40 IV in ER - ECHO 03/03: EF 50%, very small posterior pericardial effusion - c/w Digoxin - c/w Metoprolol, Furosemide and Spironolactone - c/w Entresto BID - will adjust to this as an outpatient Third degree AV block s/p PM Chronic atrial fibrillation - c/w Digoxin - s/p Amiodarone - c/w Full anticoagulation with Pradaxa CAD s/p stent x2 (2014, 2015) - No complaints of chest pain or palpitations - Troponin negative - c/w Nitroglycerin PRN Imaging findings consistent with liver nodularity - possibility of cirrhosis given long-standing heart disease - Liver US completed without any acute abnormalities Left foot SSTI - Recent culture from 03/02: MRSA - c/w Doxycycline to cover (MRSA); has been covered initially with Ceftaroline - will complete as outpatient LENA on CPAP - May allow home CPAP use DLP - c/w Rosuvastatin and Fish oil Hypothyroidism - c/w Levothyroxine Morbid obesity s/p Gastric bypass BPH - c/w Finasteride and Tamsulosin GERD - c/w Protonix DVT prophylaxis - on full anticoagulation with Pradaxa DISCHARGE MEDICATIONS: Please see below. ALLERGIES: Please see below. PHYSICAL EXAMINATION ON DISCHARGE: Vitals (See below) General: Lying in bed, no acute distress, comfortable, AAOx3 HEENT: NC, AT CVS: +S1S2 Lungs: Air entry is fair bilaterally. -rhonchi / rales / wheezing Abdomen: Soft, nondistended, nontender, morbid obesity Extremities: No edema of lower extremities, - Calf tenderness, Left foot with dressing in place LABORATORY DATA: Please see below. IMAGING: - CXR 03/02: 1. Right upper lobe and bilateral lower lobe infiltrates. 2. Cardiomegaly. - CT chest 03/02: 1. Mixed groundglass and interstitial pneumonitis, right side greater left. Presence of traction bronchiectasis suggests chronic interstitial lung disease with superimposed acute pneumonitis 2. Patchy consolidation bilaterally with me diastinal and hilar adenopathy which has progressed since previous 3. Left sided pulmonary nodules. These were not present on the previous exam and may be inflammatory. For patients at low risk (minimal or absent history of smoking and of other known risk factors), recommend CT at 3-6 months, then consider CT at 18-24 months. For patients at high risk (history of smoking or of other known risk factors), recommend CT at 3-6 months, then CT at 18-24 months. (honey Murdock al., Fleischner Society, 2017) 4. The liver surface is nodular. Underlying cirrhosis among the diagnostic considerations - Liver US 03/04: Gallbladder is not visualized. It could be contracted. No significant biliary dilatation. No free fluid. PROGNOSIS: Fair ACTIVITY: [As tolerated]. DISCHARGE PLAN: Follow up with Pulmonology, Dr. Mejía and Dr. Maureen Blue within 7 days Remain compliant with treatment plan and medications Return to the ER if you experience any problems DISPOSITION: Home with services DISCHARGE CONDITION: [Stable]. TIME SPENT ON DISCHARGE: 45 minutes Vital Signs/I&Os Vital Signs Date Time Temp Pulse Resp B/P (MAP) Pulse Ox O2 Delivery O2 Flow Rate FiO2 03/08/19 10:01 2.0 03/08/19 08:53 72 03/08/19 08:51 145/73 03/08/19 06:17 96.4 18 92 03/08/19 01:35 Nasal Cannula I&O- Last 24 Hours up to 6 AM 03/08/19 06:00 Intake Total 1560 ml Output Total 1225 ml Balance 335 ml Laboratory Data Labs 24H Laboratory Tests 2 03/08/19 05:25: Immature Granulocyte % (Auto) 3.1H, White Blood Count 17.8H, Red Blood Count 4.56, Hemoglobin 12.7L, Hematocrit 40.4L, Mean Corpuscular Volume 88.6, Mean Corpuscular Hemoglobin 27.9, Mean Corpuscular Hemoglobin Concent 31.4L, Red Cell Distribution Width 14.2, Platelet Count 367, Neutrophils (%) (Auto) 81.4H, Lymphocytes (%) (Auto) 7.8L, Monocytes (%) (Auto) 7.5H, Eosinophils (%) (Auto) 0.0, Basophils (%) (Auto) 0.2, Neutrophils # (Auto) 14.5H, Lymphocytes # (Auto) 1.4L, Monocytes # (Auto) 1.3H, Eosinophils # (Auto) 0.0, Basophils # (Auto) 0.0, Nucleated Red Blood Cells % (auto) 0.0, Anion Gap 5L, Glomerular Filtration Rate > 60.0, Blood Urea Nitrogen 28H, Creatinine 0.96, Sodium Level 138, Potassium Level 4.7, Chloride Level 104, Carbon Dioxide Level 29, Calcium Level 7.8L, Magnesium Level 2.6H, C-Reactive Protein, Quantitative 0.73H CBC/BMP Laboratory Tests 03/08/19 05:25 Red Blood Count 4.56, Mean Corpuscular Volume 88.6, Mean Corpuscular Hemoglobin 27.9, Mean Corpuscular Hemoglobin Concent 31.4 L, Red Cell Distribution Width 14.2, Neutrophils (%) (Auto) 81.4 H, Lymphocytes (%) (Auto) 7.8 L, Monocytes (%) (Auto) 7.5 H, Eosinophils (%) (Auto) 0.0, Basophils (%) (Auto) 0.2, Neutrophils # (Auto) 14.5 H, Lymphocytes # (Auto) 1.4 L, Monocytes # (Auto) 1.3 H, Eosinophils # (Auto) 0.0, Basophils # (Auto) 0.0, Calcium Level 7.8 L Microbiology Microbiology 03/02/19 Blood Culture - Final, Complete NO GROWTH AFTER 5 DAYS 03/02/19 Blood Culture - Final, Complete NO GROWTH AFTER 5 DAYS Discharge Medications Scheduled Aspirin (Aspirin EC) 81 Mg Tabec, 81 MG PO QHS, (Reported) Calcium Citrate/Vitamin D3 (Calcium Citrate-Vit D3 Tablet) 1 Tab Tab, 2 TAB PO QPM, (Reported) AT 1700 Cefdinir (Cefdinir) 300 Mg Capsule, 300 MG PO BID Cranberry Conc/Ascorbic Acid (Cranberry 12,600 mg Softgel) 1 Each Capsule, 25,200 MG PO DAILY, (Reported) Cyanocobalamin (Vitamin B-12) (Vitamin B-12) 500 Mcg Tab, 1,000 MCG PO DAILY, (Reported) Dabigatran Etexilate Mesylate (Pradaxa) 150 Mg Capsule, 150 MG PO BID, (Reported) Digoxin (Digoxin) 125 Mcg Tab, 125 MCG PO DAILY, (Reported) Docusate Sodium (Colace) 100 Mg Capsule, 100 MG PO DAILY, (Reported) AT 1700 Doxycycline Hyclate (Doxycycline Hyclate) 100 Mg Tablet, 100 MG PO BID Ferrous Fumarate (Ferrous Fumarate) 324 Mg Tab, 324 MG PO QPM, (Reported) AT 1700 Finasteride (Finasteride) 5 Mg Tab, 5 MG PO DAILY, (Reported) Fish Oil/Dha/Epa (Fish Oil 1,200 mg Fish Oil) 1 Each Capsule, 1 CAP PO DAILY, (Reported) Fluticasone Propionate (Flonase Allergy Relief) 50 Mcg/Act Spr, 2 SPRAYS NA QHS, (Reported) Furosemide (Furosemide) 40 Mg Tab, 40 MG PO DAILY, (Reported) Guaifenesin (Mucinex) 600 Mg Tab.er.12h, 600 MG PO BID Lactobacillus Acidophilus (Probiotic) 1 Each Capsule, 1 CAP PO DAILY, (Reported) Levothyroxine Sodium (Levothyroxine Sodium) 200 Mcg Tablet, 200 MCG PO DAILY, (Reported) TAKES WITH 50 MCG TAB TO EQUAL 250MCG Levothyroxine Sodium (Levothyroxine Sodium) 50 Mcg Tablet, 50 MCG PO DAILY, (Reported) TAKES WITH 200 MCG TO EQUAL 250 MCG Loratadine (Loratadine) 10 Mg Tab, 10 MG PO QHS, (Reported) Metoprolol Tartrate (Lopressor) 50 Mg Tab, 75 MG PO BID, (Reported) Multivitamins (Child Chew Vitamin) 1 Tab Chew, 2 TAB PO QPM, (Reported) AT 1700 Pantoprazole Sodium (Pantoprazole Sodium) 40 Mg Tab, 40 MG PO QPM, (Reported) AT 1700 Potassium Chloride (Klor-Con M10) 10 Meq Tabcr, 10 MEQ PO QPM, (Reported) AT 1700 Prednisone (Prednisone) 10 Mg Tablet, 10 MG PO TAPER Take 4 tabs daily x 3 days, then 3 tabs daily x 3 days, then 2 tabs daily x 3 days, then 1 tab daily x 3 days and stop Rosuvastatin Calcium (Crestor) 20 Mg Tab, 20 MG PO QHS, (Reported) Sacubitril/Valsartan (Entresto 24 mg-26 mg Tablet) 1 Each Tablet, 1 TAB PO BID Spironolactone (Spironolactone) 25 Mg Tab, 12.5 MG PO DAILY, (Reported) Sulfamethoxazole/Trimethoprim (Bactrim Ds Tablet) 1 Each Tablet, 1 TAB PO BID, (Reported) TO TAKE X 10 DAYS STARTED 03/01/19 Tamsulosin HCl (Flomax) 0.4 Mg Cap, 0.4 MG PO DAILY, (Reported) Vitamin D (Vitamin D3) 1,000 Unit Tablet, 5,000 UNITS PO DAILY, (Reported) AT 1700 Scheduled PRN Acetaminophen (Acetaminophen 8 Hour) 650 Mg Tablet.er, 650 MG PO DAILY PRN for PAIN, (Reported) Albuterol Sulfate (Ventolin Hfa) 18 Gm Hfa.aer.ad, 2 PUFF INH Q4H PRN for SHORTNESS OF BREATH, (Reported) Clotrimazole/Betamethasone Dip (Clotrimazole-Betamethasone Lot) 1 Lot Lot, 1 DOSE TOP DAILY PRN for RASH, (Reported) APPLY TO AFFECTED AREAS Nitroglycerin (Nitrostat) 0.4 Mg Subl, 0.4 MG SL NITRO PRN for CHEST PAIN, (Reported) Allergies Coded Allergies: No Known Allergies (Unverified , 05/20/18) FRANCESCA LOPES MD Mar 08, 2019 12:44
[2019-03-09 10:10] LABS: ASPERGILLUS FUMIGATUS AB Negative (Negative); AUREOBASIDIUM PULLULANS Negative (Negative); MICROPOLYSPORA FAENI AB Negative (Negative); PIGEON SERUM AB Negative (Negative); THERMOACTINOMYCES SACCHARI Negative (Negative); THERMOACTINOMYCES VULGARIS Negative (Negative)
== END 2019-03-08 14:18 | disposition home or self-care (01) | DRG 205 ==
LOC: M ED 15:05 → M ED INP 18:12 → M PCU 03-03 15:28 → M MSPAV 03-08 06:13
PROVIDERS: ADMIT Internal Medicine; ATTEND Internal Medicine
DX: J70.2 Acute drug-induced interstitial lung disorders (principal); J96.01 Acute respiratory failure with hypoxia; I50.23 Acute on chronic systolic (congestive) heart failure; Z68.43 Body mass index [BMI] 50.0-59.9, adult; L97.522 Non-pressure chronic ulcer of other part of left foot with fat layer exposed; M79.672 Pain in left foot; I48.2 Chronic atrial fibrillation; I25.10 Atherosclerotic heart disease of native coronary artery without angina pectoris; T46.2X5A Adverse effect of other antidysrhythmic drugs, initial encounter; G47.33 Obstructive sleep apnea (adult) (pediatric); E78.5 Hyperlipidemia, unspecified; R91.8 Other nonspecific abnormal finding of lung field; E03.9 Hypothyroidism, unspecified; E66.01 Morbid (severe) obesity due to excess calories; N40.0 Benign prostatic hyperplasia without lower urinary tract symptoms; Z98.84 Bariatric surgery status; Z95.810 Presence of automatic (implantable) cardiac defibrillator; Z95.5 Presence of coronary angioplasty implant and graft; Z79.82 Long term (current) use of aspirin; Z79.899 Other long term (current) drug therapy; Z79.01 Long term (current) use of anticoagulants

== ENCOUNTER → 2019-03-02 | Outpatient (REF) | payer MEDICARE, OTHER ==
[~2019-03-02] MED LIST changes: +COLA100C5 PO; +CRAN1260 PO; +ENTR1TAB PO; +KP F1200 PO; +LEVO200T4 PO; +LEVO50TA5 PO; +PROBCAP14 PO; +QC A650T3 PO; +VENTAER INH; +VITAD1000T PO
== END ==
LOC: M LAB REF 10:26
PROVIDERS: ATTEND Podiatrist
DX: L97.522 Non-pressure chronic ulcer of other part of left foot with fat layer exposed (principal); M79.672 Pain in left foot

== ENCOUNTER → 2019-05-12 | Outpatient (REF) | payer MEDICARE, OTHER ==
[~2019-05-12] MED LIST changes: +COLA100C5 PO; +CRAN1260 PO; +CYAN500T8 PO; +ENTR1TAB PO; +KP F1200 PO; +LEVO200T4 PO; +LEVO50TA5 PO; +MM S100C PO; +MUCI600T31 PO; +PRED10TA2 PO; +PROBCAP14 PO; +QC A650T3 PO; -STOO100C PO; +VENTAER INH; -VITA500T3 PO; +VITAD1000T PO
== END ==
LOC: M LAB REF 16:53
PROVIDERS: ATTEND Podiatrist
DX: L97.522 Non-pressure chronic ulcer of other part of left foot with fat layer exposed (principal); M79.672 Pain in left foot

== ENCOUNTER → 2019-07-06 | Outpatient (REF) | payer MEDICARE, OTHER ==
[~2019-07-06] MED LIST changes: +CHOL100029 PO; -VITAD1000T PO
== END ==
LOC: M LAB REF 14:48
PROVIDERS: ATTEND Podiatrist
DX: L03.116 Cellulitis of left lower limb (principal); M79.672 Pain in left foot

== ENCOUNTER 2019-07-14 11:44 | Emergency (ER) | payer MEDICARE, BC, OTHER ==
[~2019-07-14] VITALS: Ht 190.5 cm; Wt 181.8 kg
[~2019-07-14 11:44] MED LIST changes: -DOXY100T16 PO; +DOXY100T27 PO
[2019-07-14] MEDS ORDERED: HYDR-3716 (12:18)
[2019-07-14] MEDS ORDERED: MORPHINE 4 MG/ML 1ML VIAL/SYRINGE (J2270) IV ONE (13:15)
[2019-07-14 13:21] LABS: HEMOGLOBIN 13.9 g/dl (13.5-17.5); MEAN CORPUSCULAR HEMOGLOBIN 28.8 pg (27.0-33.0); MEAN CORPUSCULAR HGB CONC 32.3 g/dl (32.0-36.5); PLATELET COUNT, AUTOMATED 215 10^3/uL (150-450); RED BLOOD COUNT 4.83 10^6/uL (4.30-6.10)
--- NOTE | 2019-07-14 15:13 | REP ---
Bilateral lower extremity arterial Doppler ultrasound: History: Leg pain. Discoloration from the down. Rule out arterial disease. Findings: Examination of the right leg was somewhat inhibited by patient pain and motion. Ankle brachial index on the right could not be obtained due to these factors. There is a Agrawal's cyst in the right popliteal fossa 5.1 x 2.2 x 3.6 cm in diameter. The left ankle-brachial index is normal 1.11. There are atherosclerotic are arterial calcifications noted bilaterally. Monophasic waveforms are noted in the distal posterior tibial artery on the right at the level of the ankle. Wave forms are otherwise essentially normal. No high-grade stenosis is observed. Right lower extremity arterial Doppler velocity chart: Right CF A 126 cm/S Profunda 96 Proximal SFA 114, 93 Mid SFA 94 Distal SFA 87 Popliteal 69 Proximal AT A 57 Tibioperoneal trunk 74 Proximal GOVERNMENT AFFAIRS DIRECTOR not seen Distal GOVERNMENT AFFAIRS DIRECTOR 117 Distal AT A 102, 115 Peroneal 48 Left lower extremity arterial Doppler velocity chart: Left CF A 125 cm/S Profunda 104 Proximal SFA 96, 93 Mid SFA 82, 122 Distal SFA 119 Popliteal 87 Proximal AT A 39 Tibioperoneal trunk 97 Proximal GOVERNMENT AFFAIRS DIRECTOR not seen Distal GOVERNMENT AFFAIRS DIRECTOR 107 Distal AT A 64 Peroneal 68 Electronically Signed by Ricardo Meyers MD 07/14/2019 03:05 P
--- NOTE | 2019-07-14 15:29 | REP ---
Duplex extremity venous ultrasound: Bilateral lower extremities. History: Swelling and pain in the lower extremities, rule out DVT. Findings: The deep veins are anechoic and fully compressible from the groin to the popliteal fossa in the left and right lower extremity. Color flow imaging is homogeneous. Spectral Doppler interrogation demonstrates intact respiratory variation in flow and normal manual augmentation of flow. There is no evidence of deep vein thrombosis. Impression: Negative bilateral lower extremity duplex venous ultrasound. No evidence of deep vein thrombosis. Electronically Signed by Ricardo Meyers MD 07/14/2019 03:20 P
[2019-07-14 15:39] VITALS: BP 133/61
[2019-07-14] MEDS ORDERED: NEUR300C PO (16:13)
[2019-07-21] MEDS ORDERED: GABA-843 PO (13:29)
== END 2019-07-14 16:26 | disposition home or self-care (01) ==
LOC: M ED 11:44
DX: M54.16 Radiculopathy, lumbar region (principal); I87.2 Venous insufficiency (chronic) (peripheral); R22.43 Localized swelling, mass and lump, lower limb, bilateral; M79.604 Pain in right leg; M79.605 Pain in left leg; R09.89 Other specified symptoms and signs involving the circulatory and respiratory systems; I79.8 Other disorders of arteries, arterioles and capillaries in diseases classified elsewhere; Z95.1 Presence of aortocoronary bypass graft; Z95.0 Presence of cardiac pacemaker; Z95.5 Presence of coronary angioplasty implant and graft; E78.5 Hyperlipidemia, unspecified; E03.9 Hypothyroidism, unspecified; K21.9 Gastro-esophageal reflux disease without esophagitis; Z79.899 Other long term (current) drug therapy
CPT/HCPCS: 36415; 80047; 83605; 85027; 87040; 93925; 93970; 96374; 99284; J2270

== ENCOUNTER 2019-07-29 12:47 | Day surgery (SDC) | payer MEDICARE, BC, OTHER ==
[~2019-07-29] VITALS: Ht 190.5 cm; Wt 156.4 kg
[~2019-07-29 12:47] MED LIST changes: +LR 1,000 ML IV ONE; +VANCOMYCIN HCL 1,000 MG, VIAL MATE ADAPTER 1 EACH in D5W 250 ML IV ONE
[2019-07-29] MEDS ORDERED: VANCOMYCIN HCL 500 MG/10 ML VIAL (J3370) As Ordered ONE (15:02)
[2019-07-29] MEDS ORDERED: ROPIvacaine 0.5% 30 ML INJECTION (J2795 PER 1MG) As Ordered ONE (15:32)
[2019-07-29] MEDS ORDERED: fentaNYL 100 MCG/2 ML INJECTION (J3010) As Ordered ONE (15:37)
[2019-07-29] MEDS ORDERED: PROPOFOL 200 MG/20 ML VIAL As Ordered ONE (15:37)
[2019-07-29] MEDS ORDERED: MIDAZOLAM INJ 2 MG/2 ML VIAL (J2250) As Ordered ONE (15:37)
[2019-07-29] MEDS ORDERED: BUPIVACAINE HCL 0.5% 30 ML VIAL As Ordered ONE (16:06)
[2019-07-29] MEDS ORDERED: dexameTHASONE 4 MG/ML 1ML VIAL (J1100) As Ordered ONE (16:06)
[2019-07-29] MEDS ORDERED: LIDOCAINE 2% MDV 20 ML VIAL As Ordered ONE (16:06)
[2019-07-29] MEDS ORDERED: BACITRACIN PWD 50,000 UNITS VIAL As Ordered ONE (16:07)
[2019-07-29] MEDS ORDERED: NEOSPORIN GU IRRIG 20 ML VIAL As Ordered ONE (16:07)
[2019-07-29 17:20] VITALS: BP 131/60
--- NOTE | 2019-07-30 09:30 | RO ---
DATE OF PROCEDURE: 07/29/2019 PREPROCEDURE DIAGNOSIS: Osteomyelitis with draining sinus tract and abscess 1st metatarsophalangeal joint left foot. POSTPROCEDURE DIAGNOSIS: Osteomyelitis with draining sinus tract and abscess 1st metatarsophalangeal joint left foot. PROCEDURE: Excision of draining sinus tract with release of abscess and resection of osteomyelitic bone with insertion of antibiotic vancomycin impregnated beads, left foot. SURGEON: Dr. Eliud Low. EXTRUDER OPERATOR MULTIPLE: None. ANESTHESIA: IV sedation and local and regional anesthesia. IRRIGATION: Dilute bacitracin, neomycin and polymyxin B solution. ESTIMATED BLOOD LOSS: Approximately 10 mL. DESCRIPTION OF PROCEDURE: On 07/29/2019 this 64-year-old male was taken from his hospital room and taken to the operating room and placed on the operating table in supine position. Following the induction of IV sedation and local and regional anesthesia, the left lower extremity was prepped and draped in the usual aseptic manner. Attention was directed to the patient's left foot where there was noted to be a draining sinus tract with abscess. This sinus tract was excised with two semi-elliptical incisions and the incision was extended to approximately 3 cm. A small spicule of infected bone was identified. The abscess was drained and this piece of necrotic bone was placed for aerobic and anaerobic cultures and proximal aspect of the first metatarsal and the distal aspect of the proximal phalanx were then cut with a sagittal saw to good viable bone. The wound was then flushed with copious amounts of dilute bacitracin, neomycin and polymyxin B solution. Six vancomycin impregnated beads were then placed in the operative wound and the wound was closed with #2-0 nylon in a simple interrupted type fashion. Dry sterile dressing was applied. The patient having apparently tolerated the surgical procedure well was taken from the operating room to the recovery room for further monitoring by the anesthesia department. Patient will be on oral Bactrim DS 1 by mouth twice a day for 14 days. His questions were answered.
== END 2019-07-29 17:40 | disposition home or self-care (01) ==
LOC: M SDC 12:47
PROVIDERS: ATTEND Podiatrist
DX: E11.621 Type 2 diabetes mellitus with foot ulcer (principal); L03.116 Cellulitis of left lower limb; L97.522 Non-pressure chronic ulcer of other part of left foot with fat layer exposed; M86.8X7 Other osteomyelitis, ankle and foot; I48.91 Unspecified atrial fibrillation; Z98.61 Coronary angioplasty status; I10 Essential (primary) hypertension; E78.5 Hyperlipidemia, unspecified; Z01.810 Encounter for preprocedural cardiovascular examination; R73.01 Impaired fasting glucose; E03.9 Hypothyroidism, unspecified; I25.2 Old myocardial infarction; I25.10 Atherosclerotic heart disease of native coronary artery without angina pectoris; Z88.8 Allergy status to other drugs, medicaments and biological substances; Z79.01 Long term (current) use of anticoagulants; Z79.899 Other long term (current) drug therapy; Z98.84 Bariatric surgery status; Z95.0 Presence of cardiac pacemaker; Z95.810 Presence of automatic (implantable) cardiac defibrillator
CPT/HCPCS: 28122; 28124; 36415; 73630; 80053; 80061; 83036; 84443; 87070; 87075; 87077; 87186; 87205; 88307; C1713; J1100; J2250; J2795; J3010; J3370

== ENCOUNTER → 2019-07-29 | Outpatient (CLI) | payer MEDICARE, BC, OTHER ==
[~2019-07-29] MED LIST changes: +GABA-843 PO; +HYDR-3716; +NEUR300C PO
[2019-07-29 14:24] LABS: HEMOGLOBIN A1c 5.8 %
[2019-07-29 14:39] LABS: ALBUMIN 3.4 GM/DL (3.2-5.2); ALT/SGPT 35 U/L (12-78); BILIRUBIN,TOTAL 0.8 MG/DL (0.2-1.0); BLOOD UREA NITROGEN 20 MG/DL (7-18); CARBON DIOXIDE LEVEL 26 MEQ/L (21-32); CHLORIDE LEVEL 108 MEQ/L (98-107); CHOLESTEROL LEVEL 119 MG/DL (<200); CHOLESTEROL RISK RATIO 2.531 (<5); CREATININE FOR GFR 1.06 MG/DL (0.70-1.30); GLOMERULAR FILTRATION RATE > 60.0 (>49); GLUCOSE, FASTING 88 MG/DL (70-100); HDL CHOLESTEROL 47 MG/DL (>40); LDL CHOLESTEROL 51 MG/DL (<100); NON-HDL-C 72 MG/DL; POTASSIUM SERUM 4.3 MEQ/L (3.5-5.1); SODIUM LEVEL 142 MEQ/L (136-145); THYROID STIMULATING HORMONE 0.982 uIU/ML (0.358-3.740); TOTAL PROTEIN 6.9 GM/DL (6.4-8.2); TRIGLYCERIDES LEVEL 104 MG/DL (<150)
--- NOTE | 2019-07-29 17:07 | REP ---
Clinical: Baseline postoperative evaluation. Technique: Portable AP, lateral, oblique views of the left foot. Findings: Partial resection through the first metatarsal proximal phalangeal bone with antibiotic pellets in place. Remainder examination demonstrates generalized age-related degenerative changes. Impression: Postoperative changes involving the first toe. Electronically Signed by Fred Small MD 07/29/2019 04:59 P
== END ==
LOC: M LAB 13:02
PROVIDERS: ATTEND Internal Medicine
DX: Z01.810 Encounter for preprocedural cardiovascular examination (principal); R73.01 Impaired fasting glucose; E03.9 Hypothyroidism, unspecified

== ENCOUNTER 2019-08-28 17:45 | Inpatient (IN) | payer MEDICARE, BC, OTHER ==
[~2019-08-28] VITALS: Ht 190.5 cm; Wt 189.7 kg
[~2019-08-28 17:45] MED LIST changes: +DIGO0.123 PO; -FLON1SPR; +FLON1SPR NARES; -LR 1,000 ML IV ONE; -VANCOMYCIN HCL 1,000 MG, VIAL MATE ADAPTER 1 EACH in D5W 250 ML IV ONE
[2019-08-28] MEDS ORDERED: SPIR-10 PO (18:02)
[2019-08-28] MEDS ORDERED: ASPIRIN 81 MG CHEW TABLET PO ONE (18:15)
[2019-08-28] MEDS: IPRATROPIUM 0.5MG/ALBUTEROL 2.5MG INH SOL UD 3ML (DUONEB)(J7620) NEB PRN ×3 (18:15→18:36)
[2019-08-28] MEDS: methylPREDNISolone INJ 125 MG/2 ML VIAL (J2930) IV ONE ×2 (18:28→18:49)
[2019-08-28 18:52] LABS: VENOUS BASE EXCESS 2.1 (-2.0-2.0); VENOUS HCO3 26.3 MEQ/L (23.0-27.0); VENOUS O2 SATURATION 90.2 % (60.0-80.0); VENOUS PARTIAL PRESSURE CO2 39.3 mmHg (38.0-50.0); VENOUS PARTIAL PRESSURE O2 60.4 mmHg (30.0-50.0); VENOUS PH 7.443 UNITS (7.330-7.430); VENOUS STANDARD HCO3 26.2 MEQ/L; VENOUS TOTAL CO2 27.5 MEQ/L (24.0-28.0)
[2019-08-28 18:55] LABS: BASO % 0.3 % (0.0-1.0); EOS # 0.2 10^3/uL (0.0-0.5); EOS % 2.4 % (0.0-3.0); HEMATOCRIT 36.3 % (42.0-52.0); HEMOGLOBIN 11.5 g/dl (13.5-17.5); LYMPH # 1.4 10^3/uL (1.5-5.0); LYMPH % 14.4 % (24.0-44.0); MEAN CORPUSCULAR HEMOGLOBIN 28.9 pg (27.0-33.0); MEAN CORPUSCULAR HGB CONC 31.7 g/dl (32.0-36.5); MEAN CORPUSCULAR VOLUME 91.2 fl (80.0-96.0); MONO % 9.7 % (0.0-5.0); NEUTROPHILS # 7.2 10^3/uL (1.5-8.5); NEUTROPHILS % 72.1 % (36.0-66.0); PLATELET COUNT, AUTOMATED 235 10^3/uL (150-450); RED BLOOD COUNT 3.98 10^6/uL (4.30-6.10)
[2019-08-28 19:07] LABS: INR 1.27; PROTHROMBIN TIME 15.6 SECONDS (11.8-14.0)
[2019-08-28 19:22] LABS: INFLUENZA A AMPLIFICATION NEGATIVE (NEGATIVE); INFLUENZA B AMPLIFICATION NEGATIVE (NEGATIVE)
[2019-08-28 19:27] LABS: ALBUMIN 2.8 GM/DL (3.2-5.2); ALT/SGPT 23 U/L (12-78); BILIRUBIN,DIRECT 0.4 MG/DL (0.0-0.2); BILIRUBIN,TOTAL 0.8 MG/DL (0.2-1.0); BLOOD UREA NITROGEN 21 MG/DL (7-18); CALCIUM LEVEL 7.9 MG/DL (8.8-10.2); CARBON DIOXIDE LEVEL 26 MEQ/L (21-32); CHLORIDE LEVEL 109 MEQ/L (98-107); CK-MB VALUE MASS 1.1 NG/ML (<3.6); CPK CREATINE PHOSPHOKINASE 33 U/L (39-308); CREATININE FOR GFR 0.99 MG/DL (0.70-1.30); GLOMERULAR FILTRATION RATE > 60.0 (>49); GLUCOSE, FASTING 94 MG/DL (70-100); MB/CK RELATIVE INDEX 3.33 (< OR =4); SODIUM LEVEL 143 MEQ/L (136-145); TOTAL PROTEIN 6.4 GM/DL (6.4-8.2); TROPONIN I < 0.02 NG/ML (< 0.10)
[2019-08-28] MEDS ORDERED: FUROSEMIDE 100 MG/10 ML VIAL (J1940) IV ONE (19:45)
--- NOTE | 2019-08-28 19:53 | REP ---
a clinical: Cough and dyspnea. Technique: PA and lateral. Comparison: 03/02/2019. Findings: Stable cardiomegaly with evidence for prior sternotomy and CABG. Pacemaker. Diffuse bilateral infiltrates most compatible with CHF and pulmonary edema. Differential diagnosis includes multifocal pneumonia. No pneumothorax. No definite effusion. Skeletal structures intact. Impression: CHF/pulmonary edema versus multifocal infiltrates. Electronically Signed by Fred Small MD 08/28/2019 07:44 P
[2019-08-28] MEDS ORDERED: ACETAMINOPHEN TAB 650MG DOSE (2X325MG) PO PRN (20:00)
--- NOTE | 2019-08-28 20:01 | HPEPDOC ---
[facility] Medical History & Physical Date of Admission Aug 28, 2019 Date of Service: Aug 28, 2019 Other Provider Garett Blue MD Attending Physician: JEANNE VELAZQUEZ MD History and Physical TIME OF SERVICE: 8:40 PM CHIEF COMPLAINT: Shortness of breath HISTORY OF PRESENT ILLNESS: This is a 64 old male who presents with complaints of shortness of breath for 3- 4 days. He came to the hospital today because his symptoms did not improve and his family insisted that he come. Associated symptoms include chills that improved with Tylenol, wheezing, sensation of chest heaviness , and cough productive of yellow sputum. He denies having fevers, denies having a sore throat, and denies having a runny nose. He is unsure if he had sick contacts, but had several relatives visit during . He admits to drinking more beer than usual during the holiday. He does not follow salt or fluid restrictions and is unsure if he is exposed to more salt than he is used to. This morning he noticed that his legs are more swollen than usual therefore he reduced his fluid intake. Per discussion with the ED provider Bolivar Chávez. The patient's oxygen saturation was around 87-88 when he initially arrived and improved with supplemental oxygen. When the patient was taken off of oxygen and walked around, his oxygen saturation dropped down to the 80s and his respiratory rate increased to the 40s; he received 60 mg of Lasix but has not yet voided. REVIEW OF SYSTEMS: 12 point review of systems negative except as listed in HPI PAST MEDICAL/ SURGICAL HISTORY: Chronic Systolic congestive heart failure (EF of 50%) Third-degree AV block Chronic atrial fibrillation s/p AICD with pacemaker placement and revision Chronic CAD, s/p CABG in 2001 & placement of stents in 2014 and 2015 LENA with CPAP Dyslipidemia Hypothyroidism Pre-Diabetes (A1c 5.8%) BPH? 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 HOME MEDICATIONS: Please see below. PHYSICAL EXAMINATION: VITAL SIGNS: Please see below. GENERAL APPEARANCE: Well-nourished, well-developed, not in apparent distress, sitting up in hospital bed HEENT: Normocephalic, atraumatic, mucous membranes moist and pink. Nasal cannula is in place. Lips acyanotic CARDIOVASCULAR: Rate and rhythm. No murmurs, rubs or gallops. Radial pulses are difficult to palpate because of body habitus. There is +1 pitting edema up to the mid lower legs bilaterally. LUNGS: He is not using accessory muscles. He is not coughing. There is equal air entry bilaterally and the lungs are clear to auscultation bilaterally ABDOMEN:. Bowel sounds are hypoactive. Abdomen is soft and nontender on palpation MUSCULOSKELETAL:. Range of motion is intact in all 4 extremities INTEGUMENT: Spider angiomata on the cheeks. The lower legs are slightly cool to touch. The right lower leg is slightly purple in color. NEUROLOGICAL: Cranial nerves II-12 are grossly intact. Speech is not dysarthric PSYCHIATRIC: Alert and oriented to person, place and time and able to understand and follow all commands LABORATORY DATA: See below. IMAGING: Chest x-ray " Impression: CHF/pulmonary edema versus multifocal infiltrates." MICROBIOLOGY: Please see below. ASSESSMENT: Mr. Catherine is a 64-year-old male with a past medical history of chronic systolic congestive heart failure, chronic atrial fibrillation, third-degree AV block, chronic CAD/CABG, hypothyroidism, and remote history of amiodarone- induced pulmonary fibrosis who will be admitted for management of shortness of breath, likely due to acute systolic congestive heart failure. PLAN: 1. Mild multifactorial acute hypoxemic respiratory failure 2/2 Acute Systolic CHF & Viral URI He reports being told that his Amiodarone induced pulm fibrosis had resolved and he has not been wearing O2 at home for the past few weeks. His O2 drops to the 80s on RA and while ambulating, but his VBG was unremarkable The troponin was wnl. [place] Score to determine risk of PE = 4 points = mod risk Plan: admit to medical floor / f/u d-dimer / supplemental O2 / continuos pulse ox / treat CHF / if O2 can't be tapered off he may need a home O2 test 2. Acute Systolic CHF Based on his history this was likely triggered by a combination of fluid overload in the setting of eating excessive salt during holiday & mild viral URI. Clinically he is partially compensated. His troponin was within normal limits, the BNP is greater than 2000 and is chest x-ray showes signs of congestion The influenza panel is negative. Reviewed the most recent echo reports his EF was 50% in 2019, previously it was 40% in 2018 ACC/AHA Heart Failure Staging and tx recommendations = stage C (he already taking meds recommended for this stage) ADHERE Algorithm to predict in-hospital mortality in acute CHF = low risk Plan: elevate head of bed to 45 degrees/ f/u strict Is/OS & daily weights / fluid restriction to 2L or 67oz, salt restriction to 2G / BNP should be re- measured before discharge for prognostic purposes because high levels and levels that dont trend down are linked with increased mortality and rehospitalization / lasix q4H w target UPO of at least 3000ml per 24H/ c/w beta esau (he is taking metoprolol tartrate rather than succinate possibly bc of his hx of CAD and a fib ?), ANRI, K sparing diuretic and digoxin (bc he has co-existing a fib) / f/u w PCP or Delivery Crew Member w/in one week of discharge to prevent re-admission / mortgage broker consult to discuss salt and fluid restrictions 2. LENA Plan: c/w CPAP 3. Chronic atrial fibrillation. Plan: Continue with metoprolol, digoxin and apixaban 4. Chronic CAD /CABG & multiple PCIs / Dyslipidemia Plan: Continue home meds 5. BPH Plan: c/w home meds 6. Hypothyroidism Plan: c/w home meds 7. Third-degree AV block He has an AICD with pacemaker He is full code 8. Hx of L foot Osteomyelitis Plan: his sig other said she will change the dressings on his left foot DVT Px Pradaxa Disposition likely home after more than 2 midnight's stay Vital Signs Vital Signs Date Time Temp Pulse Resp B/P (MAP) Pulse Ox O2 Delivery O2 Flow Rate FiO2 08/28/19 19:31 70 20 139/55 (83) 93 Nasal Cannula 3.0 08/28/19 17:46 97.7 Laboratory Data Labs 24H Laboratory Tests 2 08/28/19 18:21: Immature Granulocyte % (Auto) 1.1, Neutrophils (%) (Auto) 72.1H, Lymphocytes (%) (Auto) 14.4L, Monocytes (%) (Auto) 9.7H, Eosinophils (%) (Auto) 2.4, Basophils (%) (Auto) 0.3, Neutrophils # (Auto) 7.2, Lymphocytes # (Auto) 1.4L, Monocytes # (Auto) 1.0H, Eosinophils # (Auto) 0.2, Basophils # (Auto) 0.0, Nucleated Red Blood Cells % (auto) 0.0, Prothrombin Time 15.6H, Prothromb Time International Ratio 1.27, Blood Gas Bicarbonate Standard 26.2, Venous Blood pH 7.443H, Venous Blood Partial Pressure CO2 39.3, Venous Blood Partial Pressure O2 60.4H, Venous Blood Total Carbon Dioxide 27.5, Venous Blood HCO3 26.3, Venous Blood Oxygen Saturation 90.2H, Venous Blood Base Excess 2.1H, Anion Gap 8, Glomerular Filtration Rate > 60.0, Lactic Acid Level 1.1, Calcium Level 7.9L, Total Bilirubin 0.8, Direct Bilirubin 0.4H, Aspartate Amino Transf (AST/SGOT) 16, Alanine Aminotransferase (ALT/SGPT) 23, Alkaline Phosphatase 162H, Total Creatine Kinase 33L, Creatine Kinase MB 1.1, Creatine Kinase MB Relative Index 3.33, Troponin I < 0.02, Total Protein 6.4, Albumin 2.8L, Albumin/Globulin Ratio 0.78L, Influenza Type A (RT-PCR) NEGATIVE, Influenza Type B (RT-PCR) NEGATIVE CBC/BMP Laboratory Tests 08/28/19 18:21 Microbiology Microbiology 08/28/19 Blood Culture, Received Pending 08/28/19 Blood Culture, Received Pending Home Medications Scheduled Aspirin (Aspirin EC) 81 Mg Tabec, 81 MG PO QHS Calcium Citrate/Vitamin D3 (Calcium Citrate-Vit D3 Tablet) 1 Tab Tab, 2 TAB PO QPM AT 1700 Cholecalciferol (Vitamin D3) (Vitamin D3) 5,000 Unit Tablet, 5,000 UNIT PO QPM Cranberry Conc/Ascorbic Acid (Cranberry 12,600 mg Softgel) 1 Each Capsule, 25,200 MG PO DAILY Cyanocobalamin (Vitamin B-12) (Vitamin B-12) 500 Mcg Tab, 1,000 MCG PO DAILY Dabigatran Etexilate Mesylate (Pradaxa) 150 Mg Capsule, 150 MG PO BID Digoxin (Digoxin) 125 Mcg Tab, 125 MCG PO DAILY Ferrous Fumarate (Ferrous Fumarate) 324 Mg Tab, 324 MG PO QPM AT 1700 Finasteride (Finasteride) 5 Mg Tab, 5 MG PO DAILY Fish Oil/Dha/Epa (Fish Oil 1,200 mg Fish Oil) 1 Each Capsule, 1 CAP PO DAILY Fluticasone Propionate (Flonase Allergy Relief) 50 Mcg/Act Spr, 2 SPRAYS NARES QHS Furosemide (Furosemide) 40 Mg Tab, 40 MG PO DAILY Gabapentin (Gabapentin) 300 Mg Capsule, 300 MG PO TID Levothyroxine Sodium (Levothyroxine Sodium) 200 Mcg Tablet, 200 MCG PO DAILY TAKES WITH 50 MCG TAB TO EQUAL 250MCG Levothyroxine Sodium (Levothyroxine Sodium) 50 Mcg Tablet, 50 MCG PO DAILY TAKES WITH 200 MCG TO EQUAL 250 MCG Loratadine (Loratadine) 10 Mg Tab, 10 MG PO QHS Metoprolol Tartrate (Lopressor) 50 Mg Tab, 75 MG PO BID Multivitamins (Child Chew Vitamin) 1 Tab Chew, 2 TAB PO QPM AT 1700 Pantoprazole Sodium (Pantoprazole Sodium) 40 Mg Tab, 40 MG PO QPM AT 1700 Potassium Chloride (Klor-Con M10) 10 Meq Tabcr, 10 MEQ PO QPM AT 1700 Rosuvastatin Calcium (Crestor) 20 Mg Tab, 20 MG PO QHS Sacubitril/Valsartan (Entresto 24 mg-26 mg Tablet) 1 Each Tablet, 1 TAB PO BID Spironolactone (Spironolactone) 25 Mg Tablet, 12.5 MG PO DAILY Tamsulosin HCl (Flomax) 0.4 Mg Cap, 0.4 MG PO DAILY Scheduled PRN Acetaminophen (Acetaminophen 8 Hour) 650 Mg Tablet.er, 650 MG PO Q8H PRN for PAIN Clotrimazole/Betamethasone Dip (Clotrimazole-Betamethasone Lot) 1 Lot Lot, 1 DOSE TOP DAILY PRN for RASH APPLY TO GROIN Nitroglycerin (Nitrostat) 0.4 Mg Subl, 0.4 MG SL NITRO PRN for CHEST PAIN Allergies Coded Allergies: amiodarone (Verified Allergy, Severe, respiratory issues, 07/21/19) A-FIB/CHADSVASC A-FIB History Current/History of A-Fib/PAF?: Yes Current PO Anticoag Therapy: Yes JEANNE VELAZQUEZ MD Aug 28, 2019 20:01
[2019-08-28 20:15] LABS: NT-PRO BNP 2195 PG/ML (<125)
[2019-08-28] MEDS ORDERED: ENTR1TAB PO (20:24)
[2019-08-28] MEDS ORDERED: VITA500030 PO (20:26)
[2019-08-28] MEDS ORDERED: NITROGLYCERIN 0.4 MG SUBL TABLET SL PRN (22:00)
[2019-08-28] MEDS ORDERED: ACETAMINOPHEN 650MG ER TAB (TYLENOL ARTHRITIS) PO PRN (22:00)
[2019-08-28 22:34] LABS: D-DIMER QUANT 1475.13 ng/ml (<500)
[2019-08-28 22:45] VITALS: BP 142/77
[2019-08-28] MEDS: ROSUVASTATIN 10 MG TAB (CRESTOR) PO SCH (23:48)
[2019-08-28] MEDS: LORATADINE 10 MG TAB PO SCH (23:48)
[2019-08-28] MEDS: ASPIRIN 81 MG ENTERIC TAB PO SCH (23:48)
[2019-08-28] MEDS: ENTRESTO 24-26MG TABLET (SACUBITRIL/VALSARTAN) PO SCH (23:48)
[2019-08-28] MEDS: GABAPENTIN 300 MG CAP PO SCH (23:48)
[2019-08-28] MEDS: METOPROLOL TART 25 MG TABLET PO SCH (23:50)
[2019-08-29] VITALS (8 sets, daily range): BP systolic 106–150; BP diastolic 52–83; O2SAT 93–96
[2019-08-29] MEDS: FUROSEMIDE 40 MG/4 ML VIAL (J1940) IV SCH ×4 (00:24→15:49)
[2019-08-29] MEDS: FLUTICASONE PROP 0.05% NASAL SPRAY 16 GM (FLONASE) NARES SCH ×2 (00:37→21:06)
[2019-08-29] MEDS: DABIGATRAN ETEXILATE 75 MG CAP (PRADAXA) PO SCH ×3 (00:38→21:07)
[2019-08-29] MEDS: LEVOTHYROXINE 100MCG TABLET (0.1MG) PO SCH (05:59)
[2019-08-29] MEDS: LEVOTHYROXINE 50MCG TABLET (0.05MG) PO SCH (05:59)
[2019-08-29 06:19] LABS: HEMATOCRIT 41.7 % (42.0-52.0); MEAN CORPUSCULAR HEMOGLOBIN 28.3 pg (27.0-33.0); MEAN CORPUSCULAR HGB CONC 31.2 g/dl (32.0-36.5); MEAN CORPUSCULAR VOLUME 90.7 fl (80.0-96.0); PLATELET COUNT, AUTOMATED 308 10^3/uL (150-450); WHITE BLOOD COUNT 11.2 10^3/uL (4.0-10.0)
[2019-08-29 06:38] LABS: INR 1.3; PROTHROMBIN TIME 15.9 SECONDS (11.8-14.0)
[2019-08-29 06:45] LABS: BLOOD UREA NITROGEN 23 MG/DL (7-18); CALCIUM LEVEL 9.5 MG/DL (8.8-10.2); CARBON DIOXIDE LEVEL 27 MEQ/L (21-32); CHLORIDE LEVEL 104 MEQ/L (98-107); CREATININE FOR GFR 1.27 MG/DL (0.70-1.30); GLOMERULAR FILTRATION RATE > 60.0 (>49); GLUCOSE, FASTING 165 MG/DL (70-100); MAGNESIUM LEVEL 2.1 MG/DL (1.8-2.4); POTASSIUM SERUM 3.9 MEQ/L (3.5-5.1); SODIUM LEVEL 141 MEQ/L (136-145)
[2019-08-29] MEDS: FINASTERIDE 5 MG TAB PO SCH (08:50)
[2019-08-29] MEDS: ENTRESTO 24-26MG TABLET (SACUBITRIL/VALSARTAN) PO SCH ×2 (08:51→21:06)
[2019-08-29] MEDS: TAMSULOSIN 0.4 MG CAP PO SCH (08:51)
[2019-08-29] MEDS: GABAPENTIN 300 MG CAP PO SCH ×3 (08:52→21:07)
[2019-08-29] MEDS: DIGOXIN 0.125 MG TAB PO SCH (08:52)
[2019-08-29] MEDS: SPIRONOLACTONE 12.5MG PER 1/2 TABLET PO SCH (08:53)
[2019-08-29] MEDS: METOPROLOL TART 25 MG TABLET PO SCH ×2 (08:56→21:00)
--- NOTE | 2019-08-29 10:32 | ECGEPIP ---
[facility] - ED Test Date: 2019-08-28 Pat Name: JANES CURIEL Department: Room: [place] [address] Gender: Male Log Marker: yanet : 1955 Requested By: BE Mcallister Order Number: [id number] Reading MD: Juanis Blanco Measurements Intervals [place] Rate: 77 P: [place]: 0 QRS: -26 QRSD: 178 T: 60 QT: 415 QTc: 470 Interpretive Statements VENTRICULAR PACED PROBABLE UNDERLYING ATRIAL FIBRILLATION SIMILAR 03/02/19 Electronically Signed on 08-29-2019 10:32:35 EST by Juanis Blanco
[2019-08-29] MEDS ORDERED: POTASSIUM CHLORIDE 10 MEQ SR TABLET PO ONE (10:45)
--- NOTE | 2019-08-29 12:14 | REP ---
Clinical: Infiltrate. Technique: Axial noncontrast images from the thoracic inlet to the upper abdomen with coronal and sagittal re-formations. Comparison: 08/08/2019. Findings: Diffuse significant patchy scattered alveolar infiltrates/ground-glass opacities with underlying innumerable noncalcified nodules noted throughout the bilateral lung zones along with mediastinal and hilar adenopathy. No effusion. No pneumothorax. Differential diagnosis includes pneumonitis, septic emboli, and malignancy/metastatic disease. Atherosclerotic changes to the thoracic aorta and coronary arteries noted without aortic aneurysm. Mild cardiomegaly suggested without pericardial effusion. Evidence for pacemaker and prior sternotomy/CABG. Osseous structures demonstrate degenerative changes without focal abnormality. Limited upper abdomen demonstrates normal bilateral adrenal glands. Impression: Diffuse significant scattered infiltrates with underlying innumerable nodules. Findings are considerably increased from prior examination. Differential diagnosis includes pneumonitis, septic emboli, and malignancy/metastatic disease. Electronically Signed by Fred Small MD 08/29/2019 12:06 P
[2019-08-29] MEDS ORDERED: DEXTROSE 50% 50 ML SYRINGE IV PRN (12:15)
[2019-08-29] MEDS ORDERED: GLUCAGON FOR INJ 1 MG VIAL (J1610) SC PRN (12:15)
[2019-08-29] MEDS ORDERED: GLUCOSE 4 GM CHEW TABLET PO PRN (12:15)
[2019-08-29] MEDS: HumaLOG INSULIN (NovoLOG) PER UNIT SC SCH (17:57)
[2019-08-29] MEDS: PANTOPRAZOLE 40MG TAB (PROTONIX) PO SCH (17:57)
--- NOTE | 2019-08-29 19:51 | IPNPDOC ---
Date Seen The patient was seen on 08/29/19. Progress Note SUBJECTIVE: 64-year-old male with past medical history of CHF, atrial fibrillation on Pradaxa, coronary artery disease status post CABG, status post cardiac arrest, hypothyroidism, obstructive sleep apnea, was admitted for CHF exacerbation. Patient reports worsening dyspnea over the past week with worsening lower extremity swelling and dry cough. Patient reports significant improvement in symptoms after receiving Lasix in the ED and overnight, had good urine output. Patient currently reports mild shortness of breath worsens with exertion. He was admitted a few months ago with similar symptoms and thought to have amiodarone-induced pulmonary toxicity. He denies any chest pain, nausea, vomiting, abdominal pain or diarrhea at this time. 10 point review of system is negative except for above PHYSICAL EXAMINATION: VITAL SIGNS: Please see below. GENERAL: No distress, morbidly obese HEENT: Normocephalic, atraumatic, moist mucous membranes NECK: Supple CARDIOVASCULAR EXAMINATION: Irregularly irregular RESPIRATORY EXAMINATION: Scattered rhonchi, no wheezing ABDOMINAL EXAMINATION: Soft, nontender, nondistended, positive bowel sounds EXTREMITIES: Bilateral lower extremity edema SKIN: No rash NEUROLOGICAL EXAMINATION: Alert and oriented 3, no focal deficits PSYCHIATRIC EXAMINATION: Calm and cooperative LABORATORY DATA, IMAGING STUDIES, MICROBIOLOGY: Please see below.. DVT prophylaxis ordered?: No ASSESSMENT AND PLAN: 64 old male with past medical history of CHF, atrial fibrillation, coronary artery disease, CABG, cardiac arrest, hypothyroidism and obstructive sleep apnea is admitted for possible CHF exacerbation versus amiodarone-induced pneumonitis. PROBLEMS: 1. Shortness of breath: CHF versus amiodarone-induced pneumonitis, history and clinical presentation consistent with volume overload, but not enough to justify the severity of patient's symptoms. Patient likely has acute on chronic CHF exacerbation on top of amiodarone-induced pneumonitis diagnosed a few months ago. CT chest reviewed, pneumonitis, slightly worsened from previous CAT scan. Continue Lasix 40 mg IV twice a day, supplemental oxygen as needed to maintain O2 sats of 90%. 2. Atrial fibrillation: Continue Pradaxa for anticoagulation and digoxin/metoprolol for rate control. 3. Coronary artery disease/CHF: Status Post CABG, stable, continue optimal medical management (aspirin, statin, beta esau, Entresto). 4. Obstructive sleep apnea: Continue home CPAP. 5. Hypothyroidism: Continue levothyroxine DVT prophylaxis: Pradaxa GI prophylaxis: Not needed VS, I&O, 24H, Fishbone Vital Signs/I&O Vital Signs Date Time Temp Pulse Resp B/P (MAP) Pulse Ox O2 Delivery O2 Flow Rate FiO2 08/29/19 18:43 93 Nasal Cannula 3.0 08/29/19 18:00 97.5 80 18 130/60 (83) I&O- Last 24 Hours up to 6 AM 08/29/19 06:00 Intake Total 655 ml Output Total 2800 ml Balance -2145 ml Laboratory Data 24H LABS Laboratory Tests 2 08/28/19 20:43: Bedside Glucose (Misc Panel) 115 08/29/19 05:51: Nucleated Red Blood Cells % (auto) 0.2H, Prothrombin Time 15.9H, Prothromb Time International Ratio 1.30, Anion Gap 10, Glomerular Filtration Rate > 60.0, Calcium Level 9.5#, Magnesium Level 2.1 08/29/19 11:48: Bedside Glucose (Misc Panel) 119H 08/29/19 16:44: Bedside Glucose (Misc Panel) 146H CBC/BMP Laboratory Tests 08/29/19 05:51 Microbiology Microbiology 08/28/19 Blood Culture - Preliminary, Resulted No growth after 24 hours . All specim... 08/28/19 Blood Culture - Preliminary, Resulted No growth after 24 hours . All specim... 08/28/19 Respiratory Virus Panel (PCR) ([facility]) - Final, Complete DANNIELLE PRESLEY MD Aug 29, 2019 19:51
[2019-08-29] MEDS ORDERED: HumaLOG INSULIN (NovoLOG) PER UNIT SC SCH (21:00)
[2019-08-29] MEDS: ASPIRIN 81 MG ENTERIC TAB PO SCH (21:06)
[2019-08-29] MEDS: ROSUVASTATIN 10 MG TAB (CRESTOR) PO SCH (21:06)
[2019-08-29] MEDS: LORATADINE 10 MG TAB PO SCH (21:07)
[2019-08-30 02:00] VITALS: BP 115/64
[2019-08-30 02:40] VITALS: O2SAT 96
[2019-08-30] MEDS: FUROSEMIDE 40 MG/4 ML VIAL (J1940) IV SCH ×2 (04:29→15:18)
[2019-08-30 06:00] VITALS: BP 115/68
[2019-08-30 06:20] LABS: HEMATOCRIT 45.4 % (42.0-52.0); HEMOGLOBIN 13.7 g/dl (13.5-17.5); MEAN CORPUSCULAR HGB CONC 30.2 g/dl (32.0-36.5); MEAN CORPUSCULAR VOLUME 92.7 fl (80.0-96.0); PLATELET COUNT, AUTOMATED 318 10^3/uL (150-450); WHITE BLOOD COUNT 15.2 10^3/uL (4.0-10.0)
[2019-08-30] MEDS: LEVOTHYROXINE 50MCG TABLET (0.05MG) PO SCH (06:21)
[2019-08-30] MEDS: LEVOTHYROXINE 100MCG TABLET (0.1MG) PO SCH (06:21)
[2019-08-30 06:30] LABS: INR 1.24; PROTHROMBIN TIME 15.4 SECONDS (11.8-14.0)
[2019-08-30 06:39] LABS: BLOOD UREA NITROGEN 30 MG/DL (7-18); CALCIUM LEVEL 9.5 MG/DL (8.8-10.2); CARBON DIOXIDE LEVEL 31 MEQ/L (21-32); CHLORIDE LEVEL 106 MEQ/L (98-107); CREATININE FOR GFR 1.22 MG/DL (0.70-1.30); GLOMERULAR FILTRATION RATE > 60.0 (>49); GLUCOSE, FASTING 103 MG/DL (70-100); MAGNESIUM LEVEL 2.2 MG/DL (1.8-2.4); PHOSPHORUS LEVEL 3.9 MG/DL (2.5-4.9); POTASSIUM SERUM 3.6 MEQ/L (3.5-5.1); SODIUM LEVEL 145 MEQ/L (136-145)
[2019-08-30] MEDS: GABAPENTIN 300 MG CAP PO SCH ×3 (08:36→20:37)
[2019-08-30] MEDS: DIGOXIN 0.125 MG TAB PO SCH (08:36)
[2019-08-30] MEDS: DABIGATRAN ETEXILATE 75 MG CAP (PRADAXA) PO SCH ×2 (08:36→20:37)
[2019-08-30] MEDS: SPIRONOLACTONE 12.5MG PER 1/2 TABLET PO SCH (08:36)
[2019-08-30] MEDS: FINASTERIDE 5 MG TAB PO SCH (08:36)
[2019-08-30] MEDS: TAMSULOSIN 0.4 MG CAP PO SCH (08:36)
[2019-08-30] MEDS: ENTRESTO 24-26MG TABLET (SACUBITRIL/VALSARTAN) PO SCH ×2 (08:36→20:36)
[2019-08-30] MEDS: HumaLOG INSULIN (NovoLOG) PER UNIT SC SCH (08:37)
[2019-08-30] MEDS: METOPROLOL TART 25 MG TABLET PO SCH ×2 (08:37→21:00)
[2019-08-30 10:00] VITALS: BP 116/50
[2019-08-30] MEDS: POTASSIUM CHLORIDE 10 MEQ SR TABLET PO SCH ×2 (10:58→15:18)
[2019-08-30 14:00] VITALS: BP 100/49
[2019-08-30] MEDS: PANTOPRAZOLE 40MG TAB (PROTONIX) PO SCH (17:09)
--- NOTE | 2019-08-30 17:28 | IPNPDOC ---
Date Seen The patient was seen on 08/30/19. Progress Note SUBJECTIVE: 64-year-old male with past medical history of CHF, atrial fibrillation on Pradaxa, coronary artery disease status post CABG, status post cardiac arrest, hypothyroidism, obstructive sleep apnea, was admitted for CHF exacerbation. Patient reports worsening dyspnea over the past week with worsening lower extremity swelling and dry cough. Patient reports significant improvement in symptoms after receiving Lasix in the ED and overnight, had good urine output. Patient currently reports mild shortness of breath worsens with exertion. He was admitted a few months ago with similar symptoms and thought to have amiodarone-induced pulmonary toxicity. He denies any chest pain, nausea, vomiting, abdominal pain or diarrhea at this time. 08/30/2019 Patient comfortable in chair, continues to have good urine output, remains dyspneic with cough, significant oxygen desaturation with ambulation. 10 point review of system is negative except for above PHYSICAL EXAMINATION: VITAL SIGNS: Please see below. GENERAL: No distress, morbidly obese HEENT: Normocephalic, atraumatic, moist mucous membranes NECK: Supple CARDIOVASCULAR EXAMINATION: Irregularly irregular RESPIRATORY EXAMINATION: Scattered rhonchi, no wheezing ABDOMINAL EXAMINATION: Soft, nontender, nondistended, positive bowel sounds EXTREMITIES: Bilateral lower extremity edema SKIN: No rash NEUROLOGICAL EXAMINATION: Alert and oriented 3, no focal deficits PSYCHIATRIC EXAMINATION: Calm and cooperative LABORATORY DATA, IMAGING STUDIES, MICROBIOLOGY: Please see below.. DVT prophylaxis ordered?: No ASSESSMENT AND PLAN: 64 old male with past medical history of CHF, atrial fibrillation, coronary artery disease, CABG, cardiac arrest, hypothyroidism and obstructive sleep apnea is admitted for possible CHF exacerbation versus amiodarone-induced pneumonitis. PROBLEMS: 1. Multifocal pneumonia Case discussed with Dr. Gonzalez, who reviewed CAT scan patient had done from an outside facility less than one month ago which showed significant improvement of pneumonitis for which patient was admitted in February. New CAT scan yesterday with worsening infiltrates, less likely to be amiodarone-induced pneumonitis as it was improving and more likely to be from infectious/cardiac etiology. Continue Lasix 40 mg IV twice a day, supplemental oxygen as needed to maintain O2 sats of 90%. Started cefepime for empiric antibody coverage in case infiltrates are infectious, pulmonary evaluation pending. 2. Atrial fibrillation: Continue Pradaxa for anticoagulation and digoxin/metoprolol for rate control. 3. Coronary artery disease/CHF: Status Post CABG, continue optimal medical management (aspirin, statin, beta esau, Entresto). 4. Obstructive sleep apnea: Continue home CPAP. 5. Hypothyroidism: Continue levothyroxine DVT prophylaxis: Pradaxa GI prophylaxis: Not needed VS, I&O, 24H, Fishbone Vital Signs/I&O Vital Signs Date Time Temp Pulse Resp B/P (MAP) Pulse Ox O2 Delivery O2 Flow Rate FiO2 08/30/19 14:00 98.2 89 23 100/49 (66) 92 Nasal Cannula 2.0 l I&O- Last 24 Hours up to 6 AM 08/30/19 06:00 Intake Total 720 ml Output Total 4500 ml Balance -3780 ml Laboratory Data 24H LABS Laboratory Tests 2 08/29/19 20:04: Bedside Glucose (Misc Panel) 158H 08/30/19 05:51: Prothrombin Time 15.4H, Prothromb Time International Ratio 1.24, Anion Gap 8, Glomerular Filtration Rate > 60.0, Calcium Level 9.5, Phosphorus Level 3.9, Magnesium Level 2.2 08/30/19 06:04: Nucleated Red Blood Cells % (auto) 0.1H CBC/BMP Laboratory Tests 08/30/19 05:51 08/30/19 06:04 Microbiology Microbiology 08/28/19 Blood Culture - Preliminary, Resulted No growth after 24 hours . All specim... 08/28/19 Blood Culture - Preliminary, Resulted No growth after 24 hours . All specim... 08/28/19 Respiratory Virus Panel (PCR) ([facility]) - Final, Complete DANNIELLE PRESLEY MD Aug 30, 2019 17:28
[2019-08-30] MEDS: CEFEPIME HCL 2 GM in D5W MINI-BAG PLUS 50 ML IV SCH (19:33)
[2019-08-30] MEDS: ROSUVASTATIN 10 MG TAB (CRESTOR) PO SCH (20:36)
[2019-08-30] MEDS: LORATADINE 10 MG TAB PO SCH (20:36)
[2019-08-30] MEDS: FLUTICASONE PROP 0.05% NASAL SPRAY 16 GM (FLONASE) NARES SCH (20:37)
[2019-08-30] MEDS: ASPIRIN 81 MG ENTERIC TAB PO SCH (20:37)
[2019-08-30 22:00] VITALS: BP 101/52
[2019-08-31] VITALS (9 sets, daily range): BP systolic 89–115; BP diastolic 43–71; O2SAT 90–95
[2019-08-31] MEDS: FUROSEMIDE 40 MG/4 ML VIAL (J1940) IV SCH ×2 (04:22→16:06)
[2019-08-31] MEDS: LEVOTHYROXINE 50MCG TABLET (0.05MG) PO SCH (06:31)
[2019-08-31] MEDS: LEVOTHYROXINE 100MCG TABLET (0.1MG) PO SCH (06:31)
[2019-08-31] MEDS: CEFEPIME HCL 2 GM in D5W MINI-BAG PLUS 50 ML IV SCH ×2 (06:31→18:25)
[2019-08-31 06:55] LABS: HEMATOCRIT 40.2 % (42.0-52.0); HEMOGLOBIN 12.8 g/dl (13.5-17.5); MEAN CORPUSCULAR HEMOGLOBIN 28.8 pg (27.0-33.0); MEAN CORPUSCULAR HGB CONC 31.8 g/dl (32.0-36.5); MEAN CORPUSCULAR VOLUME 90.5 fl (80.0-96.0); PLATELET COUNT, AUTOMATED 290 10^3/uL (150-450); RED BLOOD COUNT 4.44 10^6/uL (4.30-6.10); WHITE BLOOD COUNT 12.8 10^3/uL (4.0-10.0)
[2019-08-31 07:07] LABS: INR 1.23; PROTHROMBIN TIME 15.2 SECONDS (11.8-14.0)
[2019-08-31 07:25] LABS: BLOOD UREA NITROGEN 29 MG/DL (7-18); CALCIUM LEVEL 8.6 MG/DL (8.8-10.2); CARBON DIOXIDE LEVEL 30 MEQ/L (21-32); CHLORIDE LEVEL 106 MEQ/L (98-107); CREATININE FOR GFR 1.25 MG/DL (0.70-1.30); GLOMERULAR FILTRATION RATE > 60.0 (>49); GLUCOSE, FASTING 110 MG/DL (70-100); MAGNESIUM LEVEL 1.9 MG/DL (1.8-2.4); PHOSPHORUS LEVEL 3.9 MG/DL (2.5-4.9); POTASSIUM SERUM 3.7 MEQ/L (3.5-5.1); SODIUM LEVEL 143 MEQ/L (136-145)
[2019-08-31] MEDS: ENTRESTO 24-26MG TABLET (SACUBITRIL/VALSARTAN) PO SCH ×2 (08:07→20:27)
[2019-08-31] MEDS: GABAPENTIN 300 MG CAP PO SCH ×3 (08:07→20:27)
[2019-08-31] MEDS: FINASTERIDE 5 MG TAB PO SCH (08:07)
[2019-08-31] MEDS: TAMSULOSIN 0.4 MG CAP PO SCH (08:08)
[2019-08-31] MEDS: DIGOXIN 0.125 MG TAB PO SCH (08:13)
[2019-08-31] MEDS: SPIRONOLACTONE 12.5MG PER 1/2 TABLET PO SCH (08:33)
[2019-08-31] MEDS: POTASSIUM CHLORIDE 10 MEQ SR TABLET PO SCH ×2 (08:34→16:06)
[2019-08-31] MEDS: DABIGATRAN ETEXILATE 75 MG CAP (PRADAXA) PO SCH ×2 (08:34→20:27)
[2019-08-31] MEDS: METOPROLOL TART 25 MG TABLET PO SCH ×2 (09:31→20:27)
[2019-08-31] MEDS: predniSONE 20 MG TAB PO SCH (11:02)
--- NOTE | 2019-08-31 11:17 | CR ---
DATE OF CONSULTATION: 08/31/2019 REASON FOR CONSULTATION: Abnormal CT. HISTORY OF PRESENT ILLNESS: Mr. Catherine is a delightfully pleasant 64-year-old gentleman who follows with Dr. Buitrago at [facility]. He is known to have significant difficulties with cardiac dysfunction with stents in place. He has an automatic implantable cardioverter-defibrillator (AICD) and pacemaker. Ejection fraction (EF) of 50%. He also has difficulties with sleep apnea and morbid obesity despite a gastric bypass. Earlier this year, he had difficulties with shortness of breath and abnormal CT scan, felt to be on the basis of amiodarone toxicity. That started in February. He was able to be weaned off the prednisone by May, and a CT scan done several weeks ago at [facility] was essentially clear. I have reviewed that film. He is admitted now with increasing shortness of breath. He was found to have worsening of his CT scan, marked change from several weeks ago, and I am asked now to comment further. To date, he has received diuretic since admission with worsening of his BUN and creatinine. ALLERGIES: Listed only as AMIODARONE. MEDICATIONS: As an outpatient: - aspirin - calcium - vitamin D3 - Pradaxa - digoxin - iron - finasteride - fish oil - Flonase - Lasix - gabapentin - Synthroid - loratadine - metoprolol - Protonix - spironolactone - Crestor - Entresto - Flomax PAST MEDICAL HISTORY: Significant for his obstructive sleep apnea (LENA), his amiodarone toxicity, his congestive heart failure with an EF of 50%, his indwelling AICD and pacemaker. He has a history of gastric bypass. Chronic anticoagulation. Borderline diabetes. Previous orthopedic surgery. SOCIAL HISTORY: He lives with his supportive family. No smoking and no alcohol. FAMILY HISTORY: Mother had coronary artery disease and father with colon cancer. REVIEW OF SYSTEMS: As per the history of present illness (HPI) with a constitutional history for some fever and chills at home. HEENT: Unremarkable for blurred or double vision. Pulmonary: As per HPI. Cardiac: Normal except for angina. Gastrointestinal (GI): Unremarkable for any recent nausea or vomiting. Genitourinary (): Unremarkable for any dysuria or urgency. Neurological: Unremarkable for seizures or strokes. Endocrine: Significant for borderline diabetes and his hypercholesterolemia, as well as his hypothyroidism. Hematological: Is significant for his chronic anticoagulation. Musculoskeletal: Unremarkable for any new arthralgias, myalgias. Allergic and immunological: Unremarkable. Psychiatric: Unremarkable. PHYSICAL EXAMINATION: Currently reveals an obese gentleman, sitting comfortably in the recliner chair. Temperature 96.9, blood pressure 115/70, heart rate generally in and around 100 and irregularly irregular, respiratory rate 18-22 and unlabored. HEENT: Is otherwise generally normocephalic, atraumatic. Nasal cannula oxygen in place. Pupils react. Sclerae clear. Trachea is in the midline. Airway is at least class 3. Chest: Shows diminished but symmetric expansion. There are some mild crackles at the bases posteriorly, left mildly greater than right. They do improve somewhat with deep inspiration. No rubs. No other focal adventitious breath sounds are identified. Cardiac examination: Distant irregular. Peripheral pulses diminished but palpable. Chronic venous stasis changes and edema are noted. Abdomen: Morbidly obese, soft, with active bowel sounds. No convincing organomegaly or masses. Extremities: No cyanosis or clubbing. Neurologic: He is awake, alert, and appropriate. Psychiatric: Normal mood and affect. CT as outlined above, and I cannot at all disagree with dictated report. Most recent laboratories show: White blood cell count 12.8, hemoglobin 12.8, platelet count 290,000. No recent differential. Sodium 143, potassium of 3.7, chloride 106, CO2 of 30, BUN 29, creatinine 1.25 up from 0.99 on admission. Venous blood gas done on the day of admission on 08/28/2019 shows pH 7.443, PCO2 of 39.3, pO2 of 60.4 on an unknown oxygen flow. D-dimer elevated at 1475, and his pro-BNP on admission was 2195. IMPRESSION: 1. Abnormal CT scan. 2. Hypoxemia. 3. Obstructive sleep apnea. 4. Heart failure. RECOMMENDATIONS: At this point, with diurese, his BUN and creatinine are up a little, and I would hold off on that. I am in full agreement with empiric antimicrobials. It would be unusual for amiodarone toxicity to recur at this point, given that he has been off steroids for 3 months; but in view of the appearance of his CT scan and his symptomatology, is worsening with diuresis, I have no qualms with restarting steroids and seeing how he does. He is compliant with his continuous positive airway pressure (CPAP) for sleep apnea. We will continue as outlined above. He will be followed closely while he is here in the hospital. Further recommendations will be made in the progress record as new information becomes available.
[2019-08-31] MEDS: PANTOPRAZOLE 40MG TAB (PROTONIX) PO SCH (16:06)
--- NOTE | 2019-08-31 20:07 | IPNPDOC ---
Date Seen The patient was seen on 08/31/19. Progress Note SUBJECTIVE: 64-year-old male with past medical history of CHF, atrial fibrillation on Pradaxa, coronary artery disease status post CABG, status post cardiac arrest, hypothyroidism, obstructive sleep apnea, was admitted for CHF exacerbation. Patient reports worsening dyspnea over the past week with worsening lower extremity swelling and dry cough. Patient reports significant improvement in symptoms after receiving Lasix in the ED and overnight, had good urine output. Patient currently reports mild shortness of breath worsens with exertion. He was admitted a few months ago with similar symptoms and thought to have amiodarone-induced pulmonary toxicity. He denies any chest pain, nausea, vomiting, abdominal pain or diarrhea at this time. 08/30/2019 Patient comfortable in chair, continues to have good urine output, remains dyspneic with cough, significant oxygen desaturation with ambulation. 08/31/2019 Patient comfortable, diuresing well, continues to have significant dyspnea on exertion, no other complaints. 10 point review of system is negative except for above PHYSICAL EXAMINATION: VITAL SIGNS: Please see below. GENERAL: No distress, morbidly obese HEENT: Normocephalic, atraumatic, moist mucous membranes NECK: Supple CARDIOVASCULAR EXAMINATION: Irregularly irregular RESPIRATORY EXAMINATION: Scattered rhonchi, no wheezing ABDOMINAL EXAMINATION: Soft, nontender, nondistended, positive bowel sounds EXTREMITIES: Bilateral lower extremity edema SKIN: No rash NEUROLOGICAL EXAMINATION: Alert and oriented 3, no focal deficits PSYCHIATRIC EXAMINATION: Calm and cooperative LABORATORY DATA, IMAGING STUDIES, MICROBIOLOGY: Please see below.. DVT prophylaxis ordered?: No ASSESSMENT AND PLAN: 64 old male with past medical history of CHF, atrial fibrillation, coronary artery disease, CABG, cardiac arrest, hypothyroidism and obstructive sleep apnea is admitted for possible CHF exacerbation versus amiodarone-induced pneumonitis. PROBLEMS: 1. Multifocal pneumonia Symptoms and CAT scan findings suspicious for infection, possible recurrence of amiodarone-induced pneumonitis, but less likely as it had cleared up a few weeks ago. Continue cefepime for pneumonia, steroids started for possible pneumonitis as patient responded really well to them in the past. No need for further IV diuresis 2. Atrial fibrillation: Continue Pradaxa for anticoagulation and digoxin/metopr olol for rate control. 3. Coronary artery disease/CHF: Status Post CABG, continue optimal medical m anagement (aspirin, statin, beta esau, Entresto). Restart home Lasix 40 mg daily by mouth. 4. Obstructive sleep apnea: Continue home CPAP. 5. Hypothyroidism: Continue levothyroxine DVT prophylaxis: Pradaxa GI prophylaxis: Not needed VS, I&O, 24H, Fishbone Vital Signs/I&O Vital Signs Date Time Temp Pulse Resp B/P (MAP) Pulse Ox O2 Delivery O2 Flow Rate FiO2 08/31/19 18:00 98.1 90 22 102/57 (72) 90 Nasal Cannula 3.0 I&O- Last 24 Hours up to 6 AM 08/31/19 06:00 Intake Total 1570 ml Output Total 2800 ml Balance -1230 ml Laboratory Data 24H LABS Laboratory Tests 2 08/31/19 06:41: Nucleated Red Blood Cells % (auto) 0.0, Prothrombin Time 15.2H, Prothromb Time International Ratio 1.23, Anion Gap 7L, Glomerular Filtration Rate > 60.0, Calcium Level 8.6L, Phosphorus Level 3.9, Magnesium Level 1.9 CBC/BMP Laboratory Tests 08/31/19 06:41 Microbiology Microbiology 08/28/19 Blood Culture - Preliminary, Resulted No Growth after 72 hours. All specime... 08/28/19 Blood Culture - Preliminary, Resulted No Growth after 72 hours. All specime... 08/28/19 Respiratory Virus Panel (PCR) ([facility]) - Final, Complete DANNIELLE PRESLEY MD Aug 31, 2019 20:07
[2019-08-31] MEDS: FLUTICASONE PROP 0.05% NASAL SPRAY 16 GM (FLONASE) NARES SCH (20:27)
[2019-08-31] MEDS: ROSUVASTATIN 10 MG TAB (CRESTOR) PO SCH (20:27)
[2019-08-31] MEDS: ASPIRIN 81 MG ENTERIC TAB PO SCH (20:27)
[2019-08-31] MEDS: LORATADINE 10 MG TAB PO SCH (20:27)
[2019-09-01] VITALS (8 sets, daily range): BP systolic 99–115; BP diastolic 49–67; O2SAT 92
[2019-09-01 06:04] LABS: HEMATOCRIT 38.5 % (42.0-52.0); HEMOGLOBIN 11.8 g/dl (13.5-17.5); MEAN CORPUSCULAR HGB CONC 30.6 g/dl (32.0-36.5); MEAN CORPUSCULAR VOLUME 91.4 fl (80.0-96.0); PLATELET COUNT, AUTOMATED 266 10^3/uL (150-450); RED BLOOD COUNT 4.21 10^6/uL (4.30-6.10); WHITE BLOOD COUNT 11.4 10^3/uL (4.0-10.0)
[2019-09-01] MEDS: LEVOTHYROXINE 50MCG TABLET (0.05MG) PO SCH (06:06)
[2019-09-01] MEDS: LEVOTHYROXINE 100MCG TABLET (0.1MG) PO SCH (06:06)
[2019-09-01] MEDS: CEFEPIME HCL 2 GM in D5W MINI-BAG PLUS 50 ML IV SCH ×2 (06:06→17:56)
[2019-09-01 06:32] LABS: BLOOD UREA NITROGEN 29 MG/DL (7-18); CALCIUM LEVEL 8.5 MG/DL (8.8-10.2); CARBON DIOXIDE LEVEL 29 MEQ/L (21-32); CHLORIDE LEVEL 106 MEQ/L (98-107); CREATININE FOR GFR 1.09 MG/DL (0.70-1.30); GLOMERULAR FILTRATION RATE > 60.0 (>49); GLUCOSE, FASTING 99 MG/DL (70-100); MAGNESIUM LEVEL 2.2 MG/DL (1.8-2.4); PHOSPHORUS LEVEL 3.6 MG/DL (2.5-4.9); POTASSIUM SERUM 4.1 MEQ/L (3.5-5.1); SODIUM LEVEL 140 MEQ/L (136-145)
--- NOTE | 2019-09-01 10:51 | IPN ---
DATE OF VISIT: 09/01/2019 I again attended Eliud Catherine. He is feeling a little better this morning. T-max 97.6. Heart rate generally 60s to 70s. Blood pressure 100 to 115 systolic. Ins and outs midnight to midnight 690 mL in with 1825 mL out. Laboratories have all been reviewed. On exam, seated in the bedside chair. Awake, alert and appropriate with the above vital signs. HEENT: Otherwise, normocephalic, atraumatic. Pupils react. Neck is supple. Nasal cannula oxygen in place. Chest shows diminished, but symmetric expansion. There are crackles at the bases, right greater than left, but no other focal adventitious breath sounds are identified. Cardiac Exam: Distant, generally irregular. Peripheral pulses palpable. Edema is unchanged. Abdomen: Morbidly obese. Soft. Active bowel sounds. No convincing organomegaly or masses. Extremities: Without cyanosis or clubbing. Neurologic: He is awake, alert and appropriate. Psychiatric: Normal mood and affect. Pulse oximetry currently 91-94% on 3 liters nasal cannula flow. IMPRESSION: Abnormal CT scan, edema versus inflammation, cannot rule out amiodarone toxicity. continue current medications/steroids. Obstructive sleep apnea syndrome, compliant with CPAP. Chronic lower extremity edema secondary to volume status. Underlying heart failure. RECOMMENDATIONS: At this point, we will continue his prednisone for now. We can begin to wean those as able. He has continued to diurese and I believe that is quite reasonable. He is compliant with the CPAP and was applauded for that. I spoke at length with Dr. Baker, his primary care provider here in the hospital, as well right at the bedside. Will proceed as outlined above. Further recommendations will be made in the progress record as new information becomes available. FRANKLIND
[2019-09-01] MEDS: SPIRONOLACTONE 12.5MG PER 1/2 TABLET PO SCH (10:52)
[2019-09-01] MEDS: DABIGATRAN ETEXILATE 75 MG CAP (PRADAXA) PO SCH ×2 (10:52→21:40)
[2019-09-01] MEDS: ENTRESTO 24-26MG TABLET (SACUBITRIL/VALSARTAN) PO SCH ×2 (10:53→21:40)
[2019-09-01] MEDS: TAMSULOSIN 0.4 MG CAP PO SCH (10:54)
[2019-09-01] MEDS: FINASTERIDE 5 MG TAB PO SCH (10:54)
[2019-09-01] MEDS: FUROSEMIDE 40 MG TAB PO SCH (10:57)
[2019-09-01] MEDS: METOPROLOL TART 25 MG TABLET PO SCH ×2 (10:57→21:41)
[2019-09-01] MEDS: DIGOXIN 0.125 MG TAB PO SCH (10:59)
[2019-09-01] MEDS: predniSONE 20 MG TAB PO SCH (11:00)
[2019-09-01] MEDS: GABAPENTIN 300 MG CAP PO SCH ×3 (11:03→21:40)
[2019-09-01] MEDS: PANTOPRAZOLE 40MG TAB (PROTONIX) PO SCH (17:18)
--- NOTE | 2019-09-01 18:16 | IPNPDOC ---
Date Seen The patient was seen on 09/01/19. Progress Note SUBJECTIVE: 64-year-old male with past medical history of CHF, atrial fibrillation on Pradaxa, coronary artery disease status post CABG, status post cardiac arrest, hypothyroidism, obstructive sleep apnea, was admitted for CHF exacerbation. Patient reports worsening dyspnea over the past week with worsening lower extremity swelling and dry cough. Patient reports significant improvement in symptoms after receiving Lasix in the ED and overnight, had good urine output. Patient currently reports mild shortness of breath worsens with exertion. He was admitted a few months ago with similar symptoms and thought to have amiodarone-induced pulmonary toxicity. He denies any chest pain, nausea, vomiting, abdominal pain or diarrhea at this time. 08/30/2019 Patient comfortable in chair, continues to have good urine output, remains dyspneic with cough, significant oxygen desaturation with ambulation. 08/31/2019 Patient comfortable, diuresing well, continues to have significant dyspnea on exertion, no other complaints. 09/01/2019 Patient remains comfortable, dyspnea, improving, still having difficulty with physical therapy, improving daily. 10 point review of system is negative except for above PHYSICAL EXAMINATION: VITAL SIGNS: Please see below. GENERAL: No distress, morbidly obese HEENT: Normocephalic, atraumatic, moist mucous membranes NECK: Supple CARDIOVASCULAR EXAMINATION: Irregularly irregular RESPIRATORY EXAMINATION: Scattered rhonchi, no wheezing ABDOMINAL EXAMINATION: Soft, nontender, nondistended, positive bowel sounds EXTREMITIES: Bilateral lower extremity edema SKIN: No rash NEUROLOGICAL EXAMINATION: Alert and oriented 3, no focal deficits PSYCHIATRIC EXAMINATION: Calm and cooperative LABORATORY DATA, IMAGING STUDIES, MICROBIOLOGY: Please see below.. DVT prophylaxis ordered?: No ASSESSMENT AND PLAN: 64 old male with past medical history of CHF, atrial fibr illation, coronary artery disease, CABG, cardiac arrest, hypothyroidism and obstructive sleep apnea is admitted for possible CHF exacerbation versus amiodarone-induced pneumonitis. PROBLEMS: 1. Multifocal pneumonia Symptoms and CAT scan findings suspicious for infection, possible recurrence of amiodarone-induced pneumonitis, but less likely as it had cleared up a few weeks ago. Continue cefepime for pneumonia, continue prednisone for possible pneumonitis as patient responded really well to them in the past. 2. Atrial fibrillation: Continue Pradaxa for anticoagulation and digoxin/metoprolol for rate control. 3. Coronary artery disease/CHF: Status Post CABG, continue optimal medical paxton gement (aspirin, statin, beta esau, Entresto). 4. Obstructive sleep apnea: Continue home CPAP. 5. Hypothyroidism: Continue levothyroxine DVT prophylaxis: Pradaxa GI prophylaxis: Pepcid VS, I&O, 24H, Fishbone Vital Signs/I&O Vital Signs Date Time Temp Pulse Resp B/P (MAP) Pulse Ox O2 Delivery O2 Flow Rate FiO2 09/01/19 18:04 92 Nasal Cannula 3.0 09/01/19 14:00 97.8 71 21 102/50 (67) I&O- Last 24 Hours up to 6 AM 09/01/19 06:00 Intake Total 790 ml Output Total 1500 ml Balance -710 ml Laboratory Data 24H LABS Laboratory Tests 2 09/01/19 05:51: Nucleated Red Blood Cells % (auto) 0.0, Anion Gap 5L, Glomerular Filtration Rate > 60.0, Calcium Level 8.5L, Phosphorus Level 3.6, Magnesium Level 2.2 CBC/BMP Laboratory Tests 09/01/19 05:51 Microbiology Microbiology 08/28/19 Blood Culture - Preliminary, Resulted No Growth after 72 hours. All specime... 08/28/19 Blood Culture - Preliminary, Resulted No Growth after 72 hours. All specime... 08/28/19 Respiratory Virus Panel (PCR) ([facility]) - Final, Complete DANNIELLE PRESLEY MD Sep 01, 2019 18:16
[2019-09-01] MEDS: FAMOTIDINE 20 MG TAB PO SCH (21:40)
[2019-09-01] MEDS: ROSUVASTATIN 10 MG TAB (CRESTOR) PO SCH (21:40)
[2019-09-01] MEDS: ASPIRIN 81 MG ENTERIC TAB PO SCH (21:40)
[2019-09-01] MEDS: FLUTICASONE PROP 0.05% NASAL SPRAY 16 GM (FLONASE) NARES SCH (21:40)
[2019-09-01] MEDS: LORATADINE 10 MG TAB PO SCH (21:40)
[2019-09-02] VITALS (10 sets, daily range): BP systolic 84–130; BP diastolic 44–65; O2SAT 95
[2019-09-02] MEDS: LEVOTHYROXINE 50MCG TABLET (0.05MG) PO SCH (06:15)
[2019-09-02] MEDS: LEVOTHYROXINE 100MCG TABLET (0.1MG) PO SCH (06:15)
[2019-09-02] MEDS: CEFEPIME HCL 2 GM in D5W MINI-BAG PLUS 50 ML IV SCH (06:15)
[2019-09-02] MEDS: TAMSULOSIN 0.4 MG CAP PO SCH (09:43)
[2019-09-02] MEDS: FAMOTIDINE 20 MG TAB PO SCH ×2 (09:43→21:11)
[2019-09-02] MEDS: GABAPENTIN 300 MG CAP PO SCH ×3 (09:43→21:11)
[2019-09-02] MEDS: predniSONE 20 MG TAB PO SCH (09:43)
[2019-09-02] MEDS: DABIGATRAN ETEXILATE 75 MG CAP (PRADAXA) PO SCH ×2 (09:44→21:11)
[2019-09-02] MEDS: FINASTERIDE 5 MG TAB PO SCH (09:44)
[2019-09-02] MEDS: METOPROLOL TART 25 MG TABLET PO SCH ×2 (09:48→21:14)
[2019-09-02] MEDS: ENTRESTO 24-26MG TABLET (SACUBITRIL/VALSARTAN) PO SCH ×2 (09:49→21:11)
[2019-09-02] MEDS: DIGOXIN 0.125 MG TAB PO SCH (09:49)
[2019-09-02] MEDS: SPIRONOLACTONE 12.5MG PER 1/2 TABLET PO SCH (09:50)
--- NOTE | 2019-09-02 10:58 | CCN ---
DATE OF SERVICE: 09/02/2019 Mr. Catherine is seen [facility] He is sitting in a chair. He reports that he is slowly feeling a little bit better. He still has some shortness of breath particularly with exertion and he does notes that his oxygen saturations will drop when he exerts himself as well. He is currently on 3 liters by nasal cannula. He denies any fevers or chills. Denies any chest pain. States he does have occasional cough with minimal mucus production. PHYSICAL EXAMINATION: Vitals: Temperature 98.9, pulse 77, respiratory rate 18, blood pressure 107/44, pulse oximetry 90% on 3 liters. General: The patient is alert and oriented times three. He speaks in complete sentences. He is sitting in a chair. HEENT: Head is normocephalic, atraumatic. Moist mucous membranes. Neck: Neck is supple. Trachea is midline. No cervical lymphadenopathy and no obvious jugular venous distention (JVD). Pulmonary: Clear to auscultation bilaterally. No wheezes, rales, rhonchi or crackles. No accessory muscle use. Cardiac: Regular rate and rhythm. No obvious murmurs. Abdomen: Obese. Positive bowel sounds. Soft. Nontender. No rebound or guarding. Extremities: 1+ bilateral edema and stasis dermatitis changes. Skin: Skin is warm and dry. ASSESSMENT/PLAN: Hypoxia and abnormal chest CT. Differential diagnosis includes pneumonia, pulmonary edema and inflammation. The patient does have a history of amiodarone toxicity. He is being treated for all of the above. He is on antibiotics with cefepime. He is being treated with prednisone. He is being diuresed with Lasix. He does note improvement since starting the prednisone. Will continue to monitor. Continue antibiotics, prednisone and diuresis.
[2019-09-02] MEDS ORDERED: PRED20TA PO (11:23)
[2019-09-02] MEDS ORDERED: LEVA750T7 PO (11:23)
[2019-09-02] MEDS: FUROSEMIDE 40 MG TAB PO SCH (12:57)
[2019-09-02] MEDS: LevoFLOXacin 750 MG TABLET PO SCH (12:57)
[2019-09-02] MEDS: PANTOPRAZOLE 40MG TAB (PROTONIX) PO SCH (16:46)
--- NOTE | 2019-09-02 18:56 | IPNPDOC ---
Date Seen The patient was seen on 09/02/19. Progress Note SUBJECTIVE: 64-year-old male with past medical history of CHF, atrial fibrillation on Pradaxa, coronary artery disease status post CABG, status post cardiac arrest, hypothyroidism, obstructive sleep apnea, was admitted for CHF exacerbation. Patient reports worsening dyspnea over the past week with worsening lower extremity swelling and dry cough. Patient reports significant improvement in symptoms after receiving Lasix in the ED and overnight, had good urine output. Patient currently reports mild shortness of breath worsens with e xertion. He was admitted a few months ago with similar symptoms and thought to have amiodarone-induced pulmonary toxicity. He denies any chest pain, nausea, vomiting, abdominal pain or diarrhea at this time. 08/30/2019 Patient comfortable in chair, continues to have good urine output, remains dyspneic with cough, significant oxygen desaturation with ambulation. 08/31/2019 Patient comfortable, diuresing well, continues to have significant dyspnea on exertion, no other complaints. 09/01/2019 Patient remains comfortable, dyspnea, improving, still having difficulty with physical therapy, improving daily. 09/02/2019 Patient resting comfortably in chair, no changes from yesterday, continues to desat with exertion, requiring extensive amount of oxygen when working with physical therapy, and other complaints. 10 point review of system is negative except for above PHYSICAL EXAMINATION: VITAL SIGNS: Please see below. GENERAL: No distress, morbidly obese HEENT: Normocephalic, atraumatic, moist mucous membranes NECK: Supple CARDIOVASCULAR EXAMINATION: Irregularly irregular RESPIRATORY EXAMINATION: Scattered rhonchi, no wheezing ABDOMINAL EXAMINATION: Soft, nontender, nondistended, positive bowel sounds EXTREMITIES: Bilateral lower extremity edema SKIN: No rash NEUROLOGICAL EXAMINATION: Alert and oriented 3, no focal deficits PSYCHIATRIC EXAMINATION: Calm and cooperative LABORATORY DATA, IMAGING STUDIES, MICROBIOLOGY: Please see below.. DVT prophylaxis ordered?: No ASSESSMENT AND PLAN: 64 old male with past medical history of CHF, atrial fibrillation, coronary artery disease, CABG, cardiac arrest, hypothyroidism and obstructive sleep apnea is admitted for possible CHF exacerbation versus amiodarone-induced pneumonitis. PROBLEMS: 1. Multifocal pneumonia Symptoms and CAT scan findings suspicious for infection, possible recurrence of amiodarone-induced pneumonitis, but less likely as it had cleared up a few weeks ago. Antibiotics switched to Levaquin for pneumonia, continue prednisone for possible pneumonitis as patient responded really well to them in the past. 2. Atrial fibrillation: Continue Pradaxa for anticoagulation and digoxin/meto prolol for rate control. 3. Coronary artery disease/CHF: Status Post CABG, continue optimal medical management (aspirin, statin, beta esau, Entresto). Acute on chronic congestive heart failure, initially treated with IV Lasix, now at baseline, continue home oral Lasix. 4. Obstructive sleep apnea: Continue home CPAP. 5. Hypothyroidism: Continue levothyroxine DVT prophylaxis: Pradaxa GI prophylaxis: Pepcid VS, I&O, 24H, Fishbone Vital Signs/I&O Vital Signs Date Time Temp Pulse Resp B/P (MAP) Pulse Ox O2 Delivery O2 Flow Rate FiO2 09/02/19 14:00 97.6 79 18 118/65 (82) 99 09/02/19 10:00 Nasal Cannula 3.0 I&O- Last 24 Hours up to 6 AM 09/02/19 06:00 Intake Total 2060 ml Output Total 1575 ml Balance 485 ml Laboratory Data Microbiology Microbiology 08/28/19 Blood Culture - Final, Complete NO GROWTH AFTER 5 DAYS 08/28/19 Blood Culture - Final, Complete NO GROWTH AFTER 5 DAYS 08/28/19 Respiratory Virus Panel (PCR) ([facility]) - Final, Complete DANNIELLE PRESLEY MD Sep 02, 2019 18:56
[2019-09-02] MEDS: LORATADINE 10 MG TAB PO SCH (21:11)
[2019-09-02] MEDS: ASPIRIN 81 MG ENTERIC TAB PO SCH (21:11)
[2019-09-02] MEDS: ROSUVASTATIN 10 MG TAB (CRESTOR) PO SCH (21:11)
[2019-09-02] MEDS: FLUTICASONE PROP 0.05% NASAL SPRAY 16 GM (FLONASE) NARES SCH (21:15)
[2019-09-03 01:38] VITALS: O2SAT 96
[2019-09-03 02:00] VITALS: BP 107/52
[2019-09-03 06:00] VITALS: BP 137/90
[2019-09-03] MEDS: LEVOTHYROXINE 50MCG TABLET (0.05MG) PO SCH (06:05)
[2019-09-03] MEDS: LevoFLOXacin 750 MG TABLET PO SCH (06:05)
[2019-09-03] MEDS: LEVOTHYROXINE 100MCG TABLET (0.1MG) PO SCH (06:05)
[2019-09-03 06:57] LABS: HEMATOCRIT 40.2 % (42.0-52.0); HEMOGLOBIN 12.8 g/dl (13.5-17.5); MEAN CORPUSCULAR HEMOGLOBIN 28.4 pg (27.0-33.0); MEAN CORPUSCULAR HGB CONC 31.8 g/dl (32.0-36.5); MEAN CORPUSCULAR VOLUME 89.1 fl (80.0-96.0); PLATELET COUNT, AUTOMATED 343 10^3/uL (150-450); RED BLOOD COUNT 4.51 10^6/uL (4.30-6.10); WHITE BLOOD COUNT 15.6 10^3/uL (4.0-10.0)
[2019-09-03 07:17] LABS: BLOOD UREA NITROGEN 23 MG/DL (7-18); CALCIUM LEVEL 8.6 MG/DL (8.8-10.2); CARBON DIOXIDE LEVEL 27 MEQ/L (21-32); CHLORIDE LEVEL 105 MEQ/L (98-107); CREATININE FOR GFR 0.98 MG/DL (0.70-1.30); GLOMERULAR FILTRATION RATE > 60.0 (>49); GLUCOSE, FASTING 87 MG/DL (70-100); POTASSIUM SERUM 4.8 MEQ/L (3.5-5.1); SODIUM LEVEL 139 MEQ/L (136-145)
[2019-09-03] MEDS: predniSONE 20 MG TAB PO SCH (09:18)
[2019-09-03] MEDS: FAMOTIDINE 20 MG TAB PO SCH (09:18)
[2019-09-03] MEDS: ENTRESTO 24-26MG TABLET (SACUBITRIL/VALSARTAN) PO SCH (09:18)
[2019-09-03] MEDS: DABIGATRAN ETEXILATE 75 MG CAP (PRADAXA) PO SCH (09:18)
[2019-09-03] MEDS: GABAPENTIN 300 MG CAP PO SCH (09:18)
[2019-09-03 09:19] VITALS: BP 134/91
[2019-09-03] MEDS: TAMSULOSIN 0.4 MG CAP PO SCH (09:19)
[2019-09-03] MEDS: FUROSEMIDE 40 MG TAB PO SCH (09:19)
[2019-09-03] MEDS: METOPROLOL TART 25 MG TABLET PO SCH (09:19)
[2019-09-03] MEDS: DIGOXIN 0.125 MG TAB PO SCH (09:19)
[2019-09-03] MEDS: SPIRONOLACTONE 12.5MG PER 1/2 TABLET PO SCH (09:20)
[2019-09-03] MEDS: FINASTERIDE 5 MG TAB PO SCH (09:20)
--- NOTE | 2019-09-03 14:28 | IPN ---
DATE: 09/03/2019 Mr. Catherine is quite upset that he was unable to return home yesterday. Ambulatory oximetry was performed today, this morning, the patient desires to go home. Room air saturation was 88%, 2 liters was added. The patient was ambulated with desaturation to 81%. This was then increased to 4 liters and reambulated with desaturations to 84%, increased to 5 liters with desaturations to 84-85% and then increase to 6 liters with oxygen saturations of 86%. The patient states that this was very similar to the last time he returned home. With rest, he returns quickly to resting saturation. He has no anginal symptoms with ambulation. He states he is feeling better. I have arranged for follow up with his hog trader this week, 09/07/2019, to check in at 10:45 for an 11:00 a.m. appointment. PHYSICAL EXAM: Temperature is 96.0. He has been afebrile over the past 24 hours, pulse is 70, respiratory rate is 18, blood pressure is 134/91, oxygen saturation currently at 89% on 2 liters at rest. General: Obese, awake, alert, in no distress. HEENT: Sclerae clear and anicteric. Pupils equal and react to light. Neck is supple. Nasal cannula is in place. Pulmonary: Fairly clear but diminished breath sounds, symmetric expansion. A few basilar rales. There are no rhonchi or wheeze. There is no prolongation on expiratory phase. Cardiac exam: Again distant, irregular irregular with difficult to assess jugular venous pressure (JVP). Edema has not significantly changed. Abdomen: Morbidly obese with normoactive bowel sounds. Extremities: Chronic venous stasis changes without cyanosis or clubbing. IMPRESSION: Acute hypoxia with prior history of amiodarone toxicity, now with abnormal chest CT with increased interstitial markings, edema versus inflammation. At this point in time, cannot rule out amiodarone toxicity. Therefore, it is not unreasonable to continue steroids. I do not believe the patient has any signs or symptoms of active infection. Would continue efforts towards diuresis and continue monitoring volume status. He also likely has a component of atelectasis from his morbid obesity. As far as his obstructive sleep apnea, he is compliant with therapy and has continuous positive airway pressure (CPAP) at home. Will require oxygen bled in through the CPAP due to the above abnormalities. Due to the fact that he is symptomatically improved, he will have close followup with his hog trader. I do not believe it is unreasonable to allow the patient to go home in his current condition. We have contacted [facility] to provide him with oxygen on his arrival to his home.
--- NOTE | 2019-09-03 17:32 | DS.PDOC ---
Discharge Summary General Date of Admission Aug 28, 2019 at 19:51 Date of Discharge 09/03/2019 Attending Physician: DANNIELLE PRESLEY MD Discharge Summary PROCEDURES PERFORMED DURING STAY: None. ADMITTING DIAGNOSES: 1. Pneumonia, amiodarone-induced pneumonitis. DISCHARGE DIAGNOSES: 1. Pneumonia, amiodarone-induced pneumonitis, acute on chronic systolic congestive heart failure. COMPLICATIONS/CHIEF COMPLAINT: Dyspnea And Respiratory Abnormalities. HISTORY OF PRESENT ILLNESS: 64-year-old male with past medical history of congestive heart failure, coronary artery disease, atrial fibrillation, cardiac arrest, obstructive sleep apnea, was admitted for symptoms and imaging jaida rning for possible pneumonia versus amiodarone-induced pneumonitis with superimposed acute on chronic systolic congestive heart failure. Patient treated with IV Lasix with significant improvement in congestive heart failure, also treated with cefepime followed by Levaquin for pneumonia along with prednisone for possible amiodarone-induced pneumonitis. Patient was admitted in February 2019 for amiodarone-induced pneumonitis, treated with long course of oral steroids with subsequent improvement in symptoms and CT findings, reportedly had near normal CAT scan of the chest [address] chest upon this admission with bilateral infiltrates and symptoms overlapping possible infection versus amiodarone-induced pneumonitis and swine. He was treated for both. Patient currently requiring supplement of oxygen with ambulation, approved for home oxygen, patient will pay out of pocket to rent home oxygen at this time, set up a social media analyst prior to discharge. Patient is clinically and hemodynamically stable for discharge with outpatient follow-up. HOSPITAL COURSE: As above. DISCHARGE MEDICATIONS: Please see below. ALLERGIES: Please see below. PHYSICAL EXAMINATION: VITAL SIGNS: Please see below. GENERAL: No distress, morbidly obese HEENT: Normocephalic, atraumatic, moist mucous membranes NECK: Supple CARDIOVASCULAR EXAMINATION: Irregularly irregular RESPIRATORY EXAMINATION: Scattered rhonchi, no wheezing ABDOMINAL EXAMINATION: Soft, nontender, nondistended, positive bowel sounds EXTREMITIES: Bilateral lower extremity edema SKIN: No rash NEUROLOGICAL EXAMINATION: Alert and oriented 3, no focal deficits PSYCHIATRIC EXAMINATION: Calm and cooperative LABORATORY DATA: Please see below. IMAGING: CT chest with bilateral infiltrates concerning for possible pneumonia versus amiodarone-induced pneumonitis PROGNOSIS: Guarded ACTIVITY: As tolerated. DIET: Cardiac with 1500 mL fluid restriction DISCHARGE PLAN: Patient will follow-up with billboard installer and PCP in 1-2 weeks DISPOSITION: Home, Self-Care. DISCHARGE INSTRUCTIONS: 1. As above. DISCHARGE CONDITION: Stable. TIME SPENT ON DISCHARGE: Greater than 35 minutes. Vital Signs/I&Os Vital Signs Date Time Temp Pulse Resp B/P (MAP) Pulse Ox O2 Delivery O2 Flow Rate FiO2 09/03/19 09:19 70 134/91 09/03/19 09:00 2.0 09/03/19 06:00 96.0 18 89 Nasal Cannula I&O- Last 24 Hours up to 6 AM 09/03/19 06:00 Intake Total 1456 ml Output Total 2250 ml Balance -794 ml Laboratory Data Labs 24H Laboratory Tests 2 09/03/19 06:24: Nucleated Red Blood Cells % (auto) 0.0, Anion Gap 7L, Glomerular Filtration Rate > 60.0, Calcium Level 8.6L CBC/BMP Laboratory Tests 09/03/19 06:24 Microbiology Microbiology 08/28/19 Blood Culture - Final, Complete NO GROWTH AFTER 5 DAYS 08/28/19 Blood Culture - Final, Complete NO GROWTH AFTER 5 DAYS 08/28/19 Respiratory Virus Panel (PCR) (SHAWNA) - Final, Complete Discharge Medications Scheduled Aspirin (Aspirin EC) 81 Mg Tabec, 81 MG PO QHS, (Reported) Calcium Citrate/Vitamin D3 (Calcium Citrate-Vit D3 Tablet) 1 Tab Tab, 2 TAB PO QPM, (Reported) AT 1700 Cholecalciferol (Vitamin D3) (Vitamin D3) 5,000 Unit Tablet, 5,000 UNIT PO QPM, (Reported) Cranberry Conc/Ascorbic Acid (Cranberry 12,600 mg Softgel) 1 Each Capsule, 25,200 MG PO DAILY, (Reported) Cyanocobalamin (Vitamin B-12) (Vitamin B-12) 500 Mcg Tab, 1,000 MCG PO DAILY, (Reported) Dabigatran Etexilate Mesylate (Pradaxa) 150 Mg Capsule, 150 MG PO BID, (Reported) Digoxin (Digoxin) 125 Mcg Tab, 125 MCG PO DAILY, (Reported) Ferrous Fumarate (Ferrous Fumarate) 324 Mg Tab, 324 MG PO QPM, (Reported) AT 1700 Finasteride (Finasteride) 5 Mg Tab, 5 MG PO DAILY, (Reported) Fish Oil/Dha/Epa (Fish Oil 1,200 mg Fish Oil) 1 Each Capsule, 1 CAP PO DAILY, (Reported) Fluticasone Propionate (Flonase Allergy Relief) 50 Mcg/Act Spr, 2 SPRAYS NARES QHS, (Reported) Furosemide (Furosemide) 40 Mg Tab, 40 MG PO DAILY, (Reported) Gabapentin (Gabapentin) 300 Mg Capsule, 300 MG PO TID, (Reported) Levofloxacin (Levaquin) 750 Mg Tablet, 1 TAB PO DAILY Levothyroxine Sodium (Levothyroxine Sodium) 200 Mcg Tablet, 200 MCG PO DAILY, (Reported) TAKES WITH 50 MCG TAB TO EQUAL 250MCG Levothyroxine Sodium (Levothyroxine Sodium) 50 Mcg Tablet, 50 MCG PO DAILY, (Reported) TAKES WITH 200 MCG TO EQUAL 250 MCG Loratadine (Loratadine) 10 Mg Tab, 10 MG PO QHS, (Reported) Metoprolol Tartrate (Lopressor) 50 Mg Tab, 75 MG PO BID, (Reported) Multivitamins (Child Chew Vitamin) 1 Tab Chew, 2 TAB PO QPM, (Reported) AT 1700 Pantoprazole Sodium (Pantoprazole Sodium) 40 Mg Tab, 40 MG PO QPM, (Reported) AT 1700 Potassium Chloride (Klor-Con M10) 10 Meq Tabcr, 10 MEQ PO QPM, (Reported) AT 1700 Prednisone (Prednisone) 20 Mg Tablet, 40 MG PO DAILY Rosuvastatin Calcium (Crestor) 20 Mg Tab, 20 MG PO QHS, (Reported) Sacubitril/Valsartan (Entresto 24 mg-26 mg Tablet) 1 Each Tablet, 1 TAB PO BID, (Reported) Spironolactone (Spironolactone) 25 Mg Tablet, 12.5 MG PO DAILY, (Reported) Tamsulosin HCl (Flomax) 0.4 Mg Cap, 0.4 MG PO DAILY, (Reported) Scheduled PRN Acetaminophen (Acetaminophen 8 Hour) 650 Mg Tablet.er, 650 MG PO Q8H PRN for PAIN, (Reported) Clotrimazole/Betamethasone Dip (Clotrimazole-Betamethasone Lot) 1 Lot Lot, 1 DOSE TOP DAILY PRN for RASH, (Reported) APPLY TO GROIN Nitroglycerin (Nitrostat) 0.4 Mg Subl, 0.4 MG SL NITRO PRN for CHEST PAIN, (R eported) Allergies Coded Allergies: amiodarone (Verified Allergy, Severe, respiratory issues, 07/21/19) DANNIELLE PRESLEY MD Sep 03, 2019 17:32
== END 2019-09-03 15:30 | disposition home or self-care (01) | DRG 291 ==
LOC: M ED 17:45 → M ED INP 19:51 → M MSPAV 22:37
PROVIDERS: ADMIT Internal Medicine; ATTEND Internal Medicine
DX: I50.23 Acute on chronic systolic (congestive) heart failure (principal); J96.01 Acute respiratory failure with hypoxia; J18.9 Pneumonia, unspecified organism; I48.20 Chronic atrial fibrillation, unspecified; I44.2 Atrioventricular block, complete; J98.11 Atelectasis; Z68.43 Body mass index [BMI] 50.0-59.9, adult; Z95.810 Presence of automatic (implantable) cardiac defibrillator; G47.33 Obstructive sleep apnea (adult) (pediatric); E78.5 Hyperlipidemia, unspecified; J06.9 Acute upper respiratory infection, unspecified; E03.9 Hypothyroidism, unspecified; E66.01 Morbid (severe) obesity due to excess calories; R73.03 Prediabetes; I87.2 Venous insufficiency (chronic) (peripheral); N40.0 Benign prostatic hyperplasia without lower urinary tract symptoms; Z98.84 Bariatric surgery status; I25.10 Atherosclerotic heart disease of native coronary artery without angina pectoris; Z95.5 Presence of coronary angioplasty implant and graft; Z79.01 Long term (current) use of anticoagulants; Z79.82 Long term (current) use of aspirin; Z79.899 Other long term (current) drug therapy; Z88.8 Allergy status to other drugs, medicaments and biological substances; Z86.74 Personal history of sudden cardiac arrest

== ENCOUNTER 2019-10-17 10:32 | Inpatient (IN) | payer MEDICARE, BC, OTHER ==
[~2019-10-17] VITALS: Ht 190.5 cm; Wt 177.0 kg
[~2019-10-17 10:32] MED LIST changes: +LEVA750T7 PO; +PRED20TA PO
[2019-10-17 11:16] LABS: BASO # 0.1 10^3/uL (0.0-0.2); BASO % 0.3 % (0.0-1.0); EOS # 0.3 10^3/uL (0.0-0.5); EOS % 2.2 % (0.0-3.0); HEMOGLOBIN 12.2 g/dl (13.5-17.5); LYMPH # 1.4 10^3/uL (1.5-5.0); LYMPH % 9.3 % (24.0-44.0); MEAN CORPUSCULAR HEMOGLOBIN 28.6 pg (27.0-33.0); MEAN CORPUSCULAR HGB CONC 31.3 g/dl (32.0-36.5); MEAN CORPUSCULAR VOLUME 91.5 fl (80.0-96.0); MONO # 1.3 10^3/uL (0.0-0.8); MONO % 8.8 % (0.0-5.0); NEUTROPHILS # 11.8 10^3/uL (1.5-8.5); NEUTROPHILS % 78.4 % (36.0-66.0); PLATELET COUNT, AUTOMATED 302 10^3/uL (150-450); RED BLOOD COUNT 4.26 10^6/uL (4.30-6.10)
[2019-10-17 11:40] LABS: BLOOD UREA NITROGEN 20 MG/DL (7-18); CALCIUM LEVEL 9.1 MG/DL (8.8-10.2); CARBON DIOXIDE LEVEL 31 MEQ/L (21-32); CHLORIDE LEVEL 102 MEQ/L (98-107); CK-MB VALUE MASS < 1.0 NG/ML (<3.6); CPK CREATINE PHOSPHOKINASE 26 U/L (39-308); CREATININE FOR GFR 1.02 MG/DL (0.70-1.30); GLOMERULAR FILTRATION RATE > 60.0 (>49); GLUCOSE, FASTING 89 MG/DL (70-100); MB/CK RELATIVE INDEX 3.85 (< OR =4); POTASSIUM SERUM 4.1 MEQ/L (3.5-5.1); SODIUM LEVEL 138 MEQ/L (136-145); TROPONIN I < 0.02 NG/ML (< 0.10)
--- NOTE | 2019-10-17 11:41 | REP ---
Portable chest x-ray: Single view. History: Shortness of breath. Comparison chest x-ray: August 28, 2019. Findings: A bipolar pacemaker remains in the right heart via the left side. Median sternotomy wires are noted. The heart is enlarged. Its margins are partially obscured by patchy infiltrates in the left chest. There is also extensive consolidation in the right lung. Infiltrates are more prominent than on the August 28, 2019 study. Impression: Progressive patchy infiltrates bilaterally more pronounced than previously. Cardiomegaly with pacemaker. Prior sternotomy. Electronically Signed by Ricardo Meyers MD 10/17/2019 07:44 P
[2019-10-17] MEDS ORDERED: FUROSEMIDE 40 MG/4 ML VIAL (J1940) IV ONE (11:45)
[2019-10-17 12:02] LABS: NT-PRO BNP 1283 PG/ML (<125)
[2019-10-17] MEDS ORDERED: COLA100C5 PO (13:36)
[2019-10-17] MEDS ORDERED: ACET-908 PO (13:36)
[2019-10-17] MEDS ORDERED: VITA500079 PO (13:36)
[2019-10-17] MEDS ORDERED: ISOVUE-370 76% 100ML VIAL (Q9967) As Ordered ONE (15:44)
[2019-10-17] MEDS ORDERED: ACETAMINOPHEN TAB 650MG DOSE (2X325MG) PO PRN (15:45)
[2019-10-17] MEDS ORDERED: NITROGLYCERIN 0.4 MG SUBL TABLET SL PRN (15:45)
[2019-10-17] MEDS: methylPREDNISolone INJ 40 MG/1 ML VIAL (J2920) IV SCH (15:54)
[2019-10-17] MEDS: PIPERACILLIN/TAZOBACTAM SOD 3.375 GM in D5W MINI-BAG PLUS 50 ML IV SCH (15:55)
[2019-10-17 16:40] LABS: THYROID STIMULATING HORMONE 0.627 uIU/ML (0.358-3.740)
--- NOTE | 2019-10-17 16:59 | REP ---
CT of the chest with IV contrast for worsening hypoxemia: Comparison is 08/29/2019. There are diffuse bilateral confluent alveolar and interstitial infiltrates that have worsened from the prior study. This is nonspecific and could represent pneumonitis, neoplasm, exposure to noxious inhale limits, or progressive chronic lung disease. There are no pleural effusions. This is unchanged. The thoracic aorta is unremarkable. Cardiac size is mildly enlarged. There is no pericardial effusion. There are no emboli in the pulmonary trunk or central pulmonary arteries. There are no emboli in the pulmonary artery lobe or segment branches. There is mediastinal and bilateral hilar adenopathy is not significantly changed. There is no axillary adenopathy. Upper abdomen: There are surgical staple lines compatible with bariatric surgery. There is no adrenal mass. There is a small air bubble medial to the liver, likely artifact from volume averaging of the more inferior bowel loop. Impression: Worsening diffuse bilateral interstitial and alveolar infiltrates. No pleural effusions. Mediastinal and bilateral hilar adenopathy , unchanged. Bariatric surgery, unchanged. Electronically Signed by Minesh Garcia MD 10/17/2019 04:50 P
[2019-10-17] MEDS: GABAPENTIN 300 MG CAP PO SCH ×2 (17:46→21:55)
[2019-10-17 18:02] LABS: CK-MB VALUE MASS < 1.0 NG/ML (<3.6); CPK CREATINE PHOSPHOKINASE 26 U/L (39-308); MB/CK RELATIVE INDEX 3.85 (< OR =4); TROPONIN I < 0.02 NG/ML (< 0.10)
--- NOTE | 2019-10-17 18:10 | HPE ---
DATE OF ADMISSION: 10/17/2019 CHIEF COMPLAINT: Shortness of breath for about a week. HISTORY OF THE PRESENT ILLNESS: Mr. Catherine is a 64-year-old morbidly obese man who is status post gastric bypass in the past with a notable past medical history for chronic right-sided heart failure with chronic cor pulmonale, coronary artery disease, status post coronary artery bypass graft (CABG) in the past, history of cardiac arrest secondary to third-degree AV block. He is status post automatic implantable cardioverter defibrillator (AICD)/pacemaker placement in the past. 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 Patient has had a rather lengthy 6 months. Starting in February, the patient had developed worsening shortness of breath. He was hospitalized at [facility] for approximately 8 days. Suspected that he likely had developed amiodarone-induced lung injury and was placed on oxygen therapy and also steroids. The patient's condition improved to the point where by April he could be off of his oxygen for most of the day. A repeat CAT scan at that time, from what he tells me, had showed improvement from the one obtained during his hospitalization. Around , the patient was re-hospitalized and was once again placed on prednisone 20 mg daily due to worsening shortness of breath. Following discharge, the patient improved clinically to the point where he was able to wean his continuous oxygen from 4 liters to 3 liters, and then he was even able to tolerate being off oxygen for about 1-1/2 hours. The patient follows with Dr. Buitrago of the pulmonary clinic and has been tapered off of his oxygen, starting September 28, 2019, he is no longer taking it. Around 09/29/2019 or 09/30/2019, the patient started developing upper respiratory cold symptoms. He saw his primary care provider (PCP) on 10/06/2019 who prescribed a 5-day course of Z-Matty, which he took. He felt a little bit better, but presented today with worsening shortness of breath, especially with exertion. He denies having any chest discomfort nor orthopnea, nor increased lower extremity swelling. He reports being compliant with all his cardiac medications and reports that he has been vigilant about maintaining a 1500 mL water restriction. He has experienced chills on and off over the last 1-2 weeks, but has no documented fevers at home. He did notice that with ambulation, his oxygen saturations (O2 sats) were dropping into the 50-60th percentile. Because of this, he sought medical attention. In the emergency room (ER) department, he underwent a chest x-ray, which shows progressive patchy infiltrates bilaterally, more pronounced than previously. The ER physician did discuss the case with the qa auditor public administration professor for [facility] who recommended he be transferred to [place] for an open lung biopsy, but the patient declined at this time and would prefer to see if he can get better over the next 24-48 hours as there is suspicion that this could be due to fluid on the qa auditor's conclusion. Therefore, the patient is admitted to the hospitalist service. In the ER department, he received about 40 mg of intravenous Lasix and diuresed approximately between 500-800 mL from his estimate. He is currently saturating 88% on non-rebreather. He is not in any respiratory distress. His breathing is nonlabored. He is not exhibiting any wheezing. 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 HOME MEDICATIONS: - acetaminophen 325 mg every 6 hours as needed for fever - baby aspirin daily - calcium citrate with vitamin D3, two tablets in the evening - cholecalciferol 5000 units at bedtime - clotrimazole betamethasone as needed for rash to the groin - He takes a cranberry capsule daily. - He takes B12 1000 mcg daily. - He takes Pradaxa 150 mg twice a day. - He takes digoxin 125 mcg by mouth daily. - He takes ferrous fumarate 324 mg in the evening. - He takes Colace 100 mg in the evening. - He takes finasteride 5 mg by mouth daily. - He takes fish oil 1200 mg capsule daily. - He uses Flonase at bedtime. - He takes furosemide 40 mg by mouth daily. - gabapentin 300 mg by mouth three times a day - Synthroid 200 mcg by mouth daily with an additional 50 mcg to equal 250 mcg. - He takes loratadine 10 mg at bedtime. - He takes metoprolol 75 mg by mouth twice a day. - He takes multivitamin capsule daily. - He takes nitroglycerin 0.4 mg sublingual as needed for chest pain. - He takes Protonix 40 mg in the evening. - He takes potassium supplementation 10 mEq in the evening. - Crestor 20 mg in the evening - He takes Entresto one tablet twice a day. - Aldactone 12.5 mg by mouth daily - Flomax 0.4 mg by mouth daily PAST MEDICAL HISTORY: 1. 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 2. Obstructive sleep apnea; he is compliant with continuous positive airway pressure (CPAP). 3. COPD, on oxygen therapy. 4. Chronic respiratory failure, which is multifactorial. 5. He has a history of right-sided heart failure with chronic cor pulmonale. 6. He has a history of coronary artery disease, status post CABG. 7. He has a history of cardiac arrest secondary to third-degree AV block, status post pacemaker placement. 8. He has a history of hypothyroidism. 9. He has a history of prediabetes. 10. He has a history of left toe osteomyelitis with MRSA. 11. He has a history of chronic atrial fibrillation and has a history of chronic anticoagulation on Pradaxa. 12. He has a history of BPH. 13. He has a history of neuropathy. SURGICAL HISTORY: Notable for CABG, gastric bypass, right ankle surgery, AICD pacemaker placement. 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 He lives with his ex-. He does not use any tobacco. Occasionally drinks alcohol. He is a F[employer]. Medical surrogate decision maker is Katheryn Catherine. FAMILY HISTORY: Notable for diabetes, coronary artery disease. REVIEW OF SYSTEMS: 12 systems reviewed with the patient; otherwise negative except as mentioned in the history of the present illness. PHYSICAL EXAMINATION: On examination today, the patient's temperature is 97.1, respiratory rate is 18, blood pressure is 139/54, oxygen saturation is 81% on 6 liters nasal cannula. It was 72% on room air. In general, the patient is alert and oriented times three. He is a very pleasant obese gentleman who is not in any respiratory extremis at this time. His head is atraumatic, normocephalic. His pupils are symmetric and reactive to light. Oropharynx is clear. He has no thrush. Tongue is midline. No facial asymmetry. Neck is supple to touch with no nuchal rigidity. He has no audible carotid bruits. No palpable lymphadenopathy. Trachea is midline. No audible stridor. Lung sounds are appreciated bilaterally. He has diminished breath sounds but otherwise no wheezing or rales are appreciated. Heart: S1, S2. He is currently in a ventricular paced rhythm. I could not detect any audible murmurs. Abdomen: His abdomen is protuberant, nontender, nondistended. Given his significant body habitus, I could not detect any organomegaly. Extremities: His extremities are without any significant cyanosis, clubbing or edema. He has physical exam findings consistent with right-sided heart failure but does not have much significant pitting edema. Chest x-ray showed worsening bilateral infiltrates. His white count is 15, hemoglobin is 12.2, hematocrit 39, platelet count 302. Sodium 138, potassium 4.1, chloride 102, bicarbonate is 31, anion gap is 5, BUN is 20, creatinine is 1, glucose 89, calcium is 9.1, CPK is 26, troponin is less than 0.02. NT-pro-BNP was 1283. IMPRESSION: 1. Acute on chronic hypoxic respiratory failure with history of COPD as well as ongoing possibility of amiodarone-induced lung injury. The patient will be admitted to an inpatient status to the progressive care unit (PCU) where he can be closely monitored on telemetry. We will maintain him on continuous pulse oximetry. Given that he has been on chronic steroids for several months and has been in and out of the hospital, we will also cover him for healthcare- associated pneumonia. He will be placed on Zosyn. With his history of MRSA infection in the past, will also be empirically covered with vancomycin with pharmacy to dose. The patient does have an elevated NT-pro-BNP. Will empirically place him on IV Lasix 40 mg every 8 hours and see how he responds. We will trend his troponin markers. Receive Solu-Medrol 40 mg IV every 8 hours. Also, we will check a sputum gram stain and cultures. Legionella, strep, as well as Mycoplasma. Pulmonary has been notified that the patient will be admitted to the hospitalist service and has been consulted. I agree with their recommendation that if he is not improved in the next 24-48 hours, then he will need transfer for open lung biopsy. I am going to obtain a CT scan of his chest just to further delineate sort of what these infiltrates are. 2. Possibility of acute on chronic systolic congestive heart failure with acute on chronic cor pulmonale. I did review the patient's echocardiogram from 03/03/2019. I do not feel he needs a repeat as clinically he does not seem to be decompensated from heart failure as far as in his extremities. He will be maintained on his metoprolol. As we are diuresing, I am going to hold his Entresto for now. He will be continued on his Aldactone. 3. Chronic atrial fibrillation. The patient will be continued on his metoprolol as well as digoxin. Will obtain a digoxin level. Will continue on his Pradaxa. 4. BPH. He will be continued on his finasteride as well as Flomax. 5. Hypothyroidism. Will check a TSH level as well as maintain him on his Synthroid. Patient will be on Pradaxa for deep vein thrombosis (DVT) prophylaxis. [facility]
[2019-10-17 20:00] VITALS: O2SAT 93
[2019-10-17 20:25] VITALS: BP 142/76
[2019-10-17 21:00] VITALS: O2SAT 90
[2019-10-17] MEDS: DOCUSATE SODIUM 100 MG CAP PO SCH (21:00)
[2019-10-17] MEDS: DABIGATRAN ETEXILATE 75 MG CAP (PRADAXA) PO SCH (21:53)
[2019-10-17] MEDS: METOPROLOL TART 25 MG TABLET PO SCH (21:53)
[2019-10-17] MEDS: PANTOPRAZOLE 40MG TAB (PROTONIX) PO SCH (21:54)
[2019-10-17] MEDS: POTASSIUM CHLORIDE 10 MEQ SR TABLET PO SCH (21:54)
[2019-10-17] MEDS: ROSUVASTATIN 10 MG TAB (CRESTOR) PO SCH (21:54)
[2019-10-17] MEDS: LORATADINE 10 MG TAB PO SCH (21:54)
[2019-10-17] MEDS: ASPIRIN 81 MG ENTERIC TAB PO SCH (21:55)
[2019-10-17 22:00] VITALS: O2SAT 93
[2019-10-17] MEDS ORDERED: VANCOMYCIN HCL 1,000 MG, VIAL MATE ADAPTER 1 EACH in D5W 250 ML IV ONE ×2 (22:00→23:00)
[2019-10-17 23:00] VITALS: O2SAT 94
--- NOTE | 2019-10-17 23:12 | PHACANCOPD ---
PHARMACY VANCOMYCIN DOSING Pt Demographics Demographics Patient Age:64 , Weight:185.000 , Gender: male Adjusted Body Weight Events Past 24 Hours Events Past 24 Hours: NO: Dialysis, Diuretic Therapy, Change in CrCl, Fever, Elevation in WBC, Pending Diagnostics, Pending Procedures, Other Vancomycin Vancomycin Target Ranges: 15-20 mcg/ml Vancomycin Load Y/N: Yes Load Dose Date Time Vancomycin Load Dose: 2GM Date: 10/17/19 Time: 22:00 Vancomycin Dose Date: 10/18/19. Current Vancomycin Dose: [1GM IV Q8H (start 4AM)] Intermittent Dosing?: No Labs Labs Laboratory Tests 10/17/19 10:56 Micro Microbiology 10/17/19 Blood Culture, Received Pending 10/17/19 Respiratory Virus Panel (PCR) (SHAWNA) - Final, Complete 10/17/19 Blood Culture, Received Pending Creatinine Clearance Date:10/17/19. Creatinine Clearance: [>60 ML/MIN]. Assessment and Plan Maintaining Current Dose?: Yes Reason for dose change: No Dose Change Pharmacist Note Pharmacist Note [facility] Oct 17, 2019 23:12
[2019-10-17] MEDS: FUROSEMIDE 40 MG/4 ML VIAL (J1940) IV SCH (23:24)
[2019-10-17 23:59] VITALS: BP 116/57
[2019-10-18] VITALS (22 sets, daily range): BP systolic 114–138; BP diastolic 56–81; O2SAT 78–96
[2019-10-18] MEDS: PIPERACILLIN/TAZOBACTAM SOD 3.375 GM in D5W MINI-BAG PLUS 50 ML IV SCH ×2 (00:40→08:07)
[2019-10-18] MEDS: methylPREDNISolone INJ 40 MG/1 ML VIAL (J2920) IV SCH ×2 (00:41→08:07)
[2019-10-18 02:02] LABS: CK-MB VALUE MASS < 1.0 NG/ML (<3.6); CPK CREATINE PHOSPHOKINASE 29 U/L (39-308); MB/CK RELATIVE INDEX 3.45 (< OR =4); TROPONIN I < 0.02 NG/ML (< 0.10)
[2019-10-18] MEDS: VANCOMYCIN HCL 1,000 MG, VIAL MATE ADAPTER 1 EACH in D5W 250 ML IV SCH ×3 (04:25→22:00)
[2019-10-18 05:22] LABS: HEMATOCRIT 36.6 % (42.0-52.0); HEMOGLOBIN 11.8 g/dl (13.5-17.5); MEAN CORPUSCULAR HEMOGLOBIN 28.8 pg (27.0-33.0); MEAN CORPUSCULAR HGB CONC 32.2 g/dl (32.0-36.5); MEAN CORPUSCULAR VOLUME 89.3 fl (80.0-96.0); PLATELET COUNT, AUTOMATED 278 10^3/uL (150-450); WHITE BLOOD COUNT 11.3 10^3/uL (4.0-10.0)
[2019-10-18] MEDS: LEVOTHYROXINE 100MCG TABLET (0.1MG) PO SCH (05:31)
[2019-10-18] MEDS: LEVOTHYROXINE 50MCG TABLET (0.05MG) PO SCH (05:32)
[2019-10-18 05:44] LABS: ABG BASE EXCESS 2.5 (-2.0-2.0); ABG PARTIAL PRESSURE CO2 41.5 mmHg (35.0-45.0); ABG STANDARD HCO3 26.7 MEQ/L (22.0-26.0); ABG TOTAL CO2 28.3 MEQ/L (23.0-31.0); ABG pH (ARTERIAL) 7.431 UNITS (7.350-7.450)
[2019-10-18 06:06] LABS: ALBUMIN 2.8 GM/DL (3.2-5.2); ALT/SGPT 13 U/L (12-78); BILIRUBIN,TOTAL 0.9 MG/DL (0.2-1.0); BLOOD UREA NITROGEN 23 MG/DL (7-18); CALCIUM LEVEL 8.6 MG/DL (8.8-10.2); CARBON DIOXIDE LEVEL 26 MEQ/L (21-32); CHLORIDE LEVEL 101 MEQ/L (98-107); CREATININE FOR GFR 1.02 MG/DL (0.70-1.30); GLOMERULAR FILTRATION RATE > 60.0 (>49); GLUCOSE, FASTING 168 MG/DL (70-100); NT-PRO BNP 1498 PG/ML (<125); POTASSIUM SERUM 4.1 MEQ/L (3.5-5.1); SODIUM LEVEL 137 MEQ/L (136-145); TOTAL PROTEIN 7.3 GM/DL (6.4-8.2)
[2019-10-18] MEDS ORDERED: FUROSEMIDE 40 MG/4 ML VIAL (J1940) IV SCH (08:00)
[2019-10-18] MEDS: FUROSEMIDE 40 MG/4 ML VIAL (J1940) IV SCH ×5 (08:07→23:48)
[2019-10-18] MEDS: GABAPENTIN 300 MG CAP PO SCH ×3 (08:08→20:27)
[2019-10-18] MEDS: TAMSULOSIN 0.4 MG CAP PO SCH (08:08)
[2019-10-18] MEDS: DABIGATRAN ETEXILATE 75 MG CAP (PRADAXA) PO SCH ×2 (08:08→20:27)
[2019-10-18] MEDS: METOPROLOL TART 25 MG TABLET PO SCH ×2 (08:08→20:32)
[2019-10-18] MEDS: DIGOXIN 0.125 MG TAB PO SCH (08:09)
[2019-10-18] MEDS: FINASTERIDE 5 MG TAB PO SCH (08:09)
[2019-10-18] MEDS: CYANOCOBALAMIN 500 MCG TAB PO SCH (08:10)
[2019-10-18] MEDS: SPIRONOLACTONE 12.5MG PER 1/2 TABLET PO SCH (08:10)
--- NOTE | 2019-10-18 10:44 | IPN ---
DATE OF SERVICE: 10/18/2019 The patient still complains of dyspnea on exertion, difficulty ambulating from bed to the bathroom without significant shortness of breath. No chest pain, pressure, tightness. No dizziness or lightheadedness. The patient is on intravenous (IV) Lasix. Net negative 1 liter yesterday. Negative 385 mL since this morning. Weight is 185 kg on admission, 182.7 today. The patient otherwise denies any hemoptysis. Cough is productive of white sputum, slightly increased from at home. No fever. The patient complains of on-and-off chills for the past 2 weeks at home. Had been placed on azithromycin by his primary care physician. He was not sure whether he got better because he was at the tail end of his upper respiratory issues or if the azithromycin helped. The patient currently is on vancomycin and Zosyn for a presumed possible hospital-acquired infection from previous admission in August. He has moderate mediastinal and bilateral hilar adenopathy which appears to be unchanged and worsening bilateral interstitial alveolar infiltrates. According to the patient, he has met with Dr. Buitrago, personal lines sales executive, as outpatient. Did no believe along with Dr. Gonzalez that he had amiodarone-induced pulmonary toxicity but was unsure. The patient's respiratory issues resolved with prednisone taper as outpatient, and he did well into [place] with worsening issues now. He says that he has been compliant with his continuous positive airway pressure (CPAP) for over 20 years, for which he follows with Dr. Buitrago. He currently denies any nausea, vomiting, epigastric pain. No dysuria, urgency, frequency. No upper or lower extremity weakness. The patient ambulates well, but he still has significant dyspnea on exertion. Per issues, no issues on telemetry. The patient is not putting out very much. He has remained afebrile, 96.8 this morning, pulse 70, respiratory rate 16, blood pressure 138/64, 95% on 15 liters, 40% FIO2, VentiMask. Generally, the patient is awake, alert, oriented to person, place, and time. Able to speak in full sentences. No conversational dyspnea or use of respiratory accessory muscles. The patient has a thick neck. Unable to assess for jugular venous distention (JVD). Lungs are diminished with bilateral bibasilar crackles. Heart: S1, S2, sinus rhythm. Abdomen: Is obese, soft, nontender, nondistended. Positive bowel sounds. Unable to elicit for fluid wave. Extremities: Trace to 1+ lower extremity edema. Chronic venous stasis changes bilateral lower extremities. LABORATORY DATA: White count 11.3, hemoglobin 11.8, hematocrit 36.6, platelet count 278. Sodium 137, potassium 4.1, chloride 101, bicarbonate 26, BUN 23, creatinine 1.02, glucose of 168, troponin less than 0.02, BNP of 1498. IMAGING STUDIES: CT chest 10/17/2019: Diffuse bilateral confluent alveolar and interstitial infiltrates worsened from prior study, nonspecific, could represent progressive chronic lung disease. No pleural effusions. Impression is worsening diffuse bilateral interstitial and alveolar infiltrates. No pleural effusions. Mediastinal and bilateral hilar adenopathy, appears to be unchanged. Bariatric surgery is unchanged. ASSESSMENT AND PLAN: This is a 64-year-old male with history of obstructive sleep apnea, morbid obesity status post gastric bypass, coronary artery disease (CAD), stents, automatic implantable cardioverter-defibrillator (AICD), ejection fraction (EF) of 50%, admitted in August for acute on chronic hypoxic respiratory failure, initially thought to be amiodarone-induced toxicity. The patient has been off steroids for 3 months. Currently being treated for the following issues: 1. Acute on chronic hypoxemic respiratory failure with history of obstructive sleep apnea, abdominal CT, and congestive heart failure, possible amiodarone toxicity, currently on IV Solu-Medrol, broad-spectrum antibiotics, supplemental oxygen keeps oxygen (O2) saturation greater than 90%, and diuresis with Lasix. Cash Register Servicer will be consulted to determine if further evaluation is required. The patient does have unchanged mediastinal and hilar lymphadenopathy. Defer to pulmonology if this requires immediate biopsy. 2. Congestive heart failure. EF of 25% with chronic cor. pulmonale, chronic right-sided heart failure with ejection fraction of 50%, currently on fluid restriction, strict intake and output (I and O), daily weights, and Lasix 40 IV every 8 hours. 3. Chronic atrial fibrillation with a pacer and abnormal electrocardiogram (EKG) with chronic left bundle branch block. His heart rate appears to be well controlled. He is on digoxin 0.125 daily, Pradaxa 150 twice a day, metoprolol 75 twice a day. 4. History of coronary artery disease and stents. On Crestor, metoprolol, aspirin 81, Pradaxa. 5. Abnormal CT chest. Check procalcitonin level. Discontinue antibiotics if negative. Check sputum culture, methicillin-resistant Staphylococcus aureus (MRSA) screen. If negative procalcitonin, may discontinue antibiotics. 6. Obstructive sleep apnea. Continue on CPAP. 7. Morbid obesity. Body mass index (BMI) 50.3, complicating his care. 8. Hypothyroidism. On chronic levothyroxine. 9. Benign prostatic hypertrophy (BPH). On finasteride and Flomax. MTDD
--- NOTE | 2019-10-18 20:24 | ECGEPIP ---
[facility] - ED Test Date: 2019-10-17 Pat Name: JANES CURIEL Department: Room: - Gender: Male Baby Sitter: SB : 1955 Requested By: Deniz Srivastava Order Number: [id number] Reading MD: Deniz Munoz Measurements Intervals [place] Rate: 79 P: VT: 0 QRS: -59 QRSD: 174 T: 12 QT: 411 QTc: 472 Interpretive Statements ATRIAL FIBRILLATION ELECTRONIC VENTRICULAR PACEMAKER RIGHT BUNDLE BRANCH BLOCK SIMILAR TO 08/28/19 Electronically Signed on 10-18-2019 20:24:33 EST by Deniz Munoz
[2019-10-18] MEDS: ROSUVASTATIN 10 MG TAB (CRESTOR) PO SCH (20:28)
[2019-10-18] MEDS: DOCUSATE SODIUM 100 MG CAP PO SCH (20:28)
[2019-10-18] MEDS: LORATADINE 10 MG TAB PO SCH (20:28)
[2019-10-18] MEDS: PANTOPRAZOLE 40MG TAB (PROTONIX) PO SCH (20:28)
[2019-10-18] MEDS: ASPIRIN 81 MG ENTERIC TAB PO SCH (20:28)
[2019-10-18] MEDS: POTASSIUM CHLORIDE 10 MEQ SR TABLET PO SCH (20:28)
[2019-10-18 21:49] LABS: BLOOD UREA NITROGEN 33 MG/DL (7-18); CALCIUM LEVEL 9.6 MG/DL (8.8-10.2); CARBON DIOXIDE LEVEL 28 MEQ/L (21-32); CHLORIDE LEVEL 102 MEQ/L (98-107); CREATININE FOR GFR 1.27 MG/DL (0.70-1.30); GLOMERULAR FILTRATION RATE > 60.0 (>49); GLUCOSE, FASTING 121 MG/DL (70-100); MAGNESIUM LEVEL 2.4 MG/DL (1.8-2.4); POTASSIUM SERUM 4.3 MEQ/L (3.5-5.1); SODIUM LEVEL 137 MEQ/L (136-145)
[2019-10-19] VITALS (25 sets, daily range): BP systolic 116–136; BP diastolic 54–72; O2SAT 83–97
[2019-10-19] MEDS: FUROSEMIDE 40 MG/4 ML VIAL (J1940) IV SCH ×5 (04:59→19:24)
[2019-10-19] MEDS: LEVOTHYROXINE 100MCG TABLET (0.1MG) PO SCH (05:00)
[2019-10-19] MEDS: LEVOTHYROXINE 50MCG TABLET (0.05MG) PO SCH (05:00)
[2019-10-19 05:31] LABS: VANCOMYCIN LEVEL TROUGH 20.5 UG/ML (10.0-20.0)
[2019-10-19] MEDS: VANCOMYCIN HCL 1,000 MG, VIAL MATE ADAPTER 1 EACH in D5W 250 ML IV SCH ×3 (06:15→21:48)
[2019-10-19 06:33] LABS: BLOOD UREA NITROGEN 35 MG/DL (7-18); CALCIUM LEVEL 9.2 MG/DL (8.8-10.2); CARBON DIOXIDE LEVEL 28 MEQ/L (21-32); CHLORIDE LEVEL 101 MEQ/L (98-107); CREATININE FOR GFR 1.16 MG/DL (0.70-1.30); GLOMERULAR FILTRATION RATE > 60.0 (>49); GLUCOSE, FASTING 102 MG/DL (70-100); MAGNESIUM LEVEL 2.3 MG/DL (1.8-2.4); POTASSIUM SERUM 3.8 MEQ/L (3.5-5.1); SODIUM LEVEL 138 MEQ/L (136-145)
--- NOTE | 2019-10-19 07:11 | PHACANCOPD ---
PHARMACY VANCOMYCIN DOSING Pt Demographics Demographics Patient Age:64 , Weight:180.100 , Gender: male Adjusted Body Weight Vancomycin Vancomycin Target Ranges: 15-20 mcg/ml Vancomycin Load Y/N: Yes Load Dose Date Time Vancomycin Load Dose: 2GM Date: 10/17/19 Time: 22:00 Vancomycin Dose Date: 10/19/19. Current Vancomycin Dose: [1 gm q8h@06] Date: 10/18/19. Current Vancomycin Dose: [1GM IV Q8H (start 4AM)] Intermittent Dosing?: No Labs Micro Microbiology 10/19/19 Gram Stain, Received Pending 10/19/19 Sputum Culture, Received Pending 10/17/19 Blood Culture - Preliminary, Resulted No growth after 24 hours . All specim... 10/17/19 Respiratory Virus Panel (PCR) ([facility]WNA) - Final, Complete 10/17/19 Blood Culture - Preliminary, Resulted No growth after 24 hours . All specim... Creatinine Clearance Date:10/17/19. Creatinine Clearance: [>60 ML/MIN]. Assessment and Plan Maintaining Current Dose?: Yes Reason for dose change: No Dose Change Pharmacist Note Pharmacist Note Vancomycin trough drawn 1.5 hours early: reported as 20.5, SCR (improved)=1.16< CRCL~75. will maintain 1 gram IV Q8Hour regimen for now with the next trough scheduled for tomorrow@ 5:00- will continue to follow [facility] Oct 19, 2019 07:11
[2019-10-19 07:17] LABS: HEMATOCRIT 38.8 % (42.0-52.0); HEMOGLOBIN 12.2 g/dl (13.5-17.5); MEAN CORPUSCULAR HEMOGLOBIN 28.4 pg (27.0-33.0); MEAN CORPUSCULAR HGB CONC 31.4 g/dl (32.0-36.5); MEAN CORPUSCULAR VOLUME 90.4 fl (80.0-96.0); PLATELET COUNT, AUTOMATED 369 10^3/uL (150-450); RED BLOOD COUNT 4.29 10^6/uL (4.30-6.10); WHITE BLOOD COUNT 17.1 10^3/uL (4.0-10.0)
[2019-10-19] MEDS: LACTOBACILLUS ACIDOPHILUS CAP (BACID) PO SCH ×3 (08:00→18:16)
--- NOTE | 2019-10-19 08:34 | REP ---
Portable chest, 11:00 a.m., single AP view with the patient semi upright: Comparison is 10/17/2019. The bilateral infiltrates have mildly improved. Cardiomegaly is unchanged. The Pacemaker, sternotomy wires and surgical clips are unchanged. Impression: The bilateral infiltrates have mildly improved. Electronically Signed by Minesh Garcia MD 10/19/2019 08:26 A
--- NOTE | 2019-10-19 08:53 | IPNPDOC ---
Date Seen The patient was seen on 10/19/19. Progress Note correction of 10/18/19 progress note: EF 50% VS, I&O, 24H, Fishbone Vital Signs/I&O Vital Signs Date Time Temp Pulse Resp B/P (MAP) Pulse Ox O2 Delivery O2 Flow Rate FiO2 10/19/19 07:00 90 Nasal Cannula 6.0 10/19/19 04:00 96.8 70 16 117/56 (76) 10/18/19 08:00 40 I&O- Last 24 Hours up to 6 AM 10/19/19 06:00 Intake Total 1430 ml Output Total 4525 ml Balance -3095 ml Laboratory Data 24H LABS Laboratory Tests 2 10/18/19 21:15: Anion Gap 7L, Glomerular Filtration Rate > 60.0, Calcium Level 9.6, Magnesium Level 2.4 10/19/19 04:49: Anion Gap 9, Glomerular Filtration Rate > 60.0, Calcium Level 9.2, Magnesium Level 2.3, Nucleated Red Blood Cells % (auto) 0.0, Vancomycin Level Trough 20.5H CBC/BMP Laboratory Tests 10/18/19 21:15 10/19/19 04:49 Microbiology Microbiology 10/19/19 Gram Stain, Received Pending 10/19/19 Sputum Culture, Received Pending 10/17/19 Blood Culture - Preliminary, Resulted No growth after 24 hours . All specim... 10/17/19 Respiratory Virus Panel (PCR) ([facility]WNA) - Final, Complete 10/17/19 Blood Culture - Preliminary, Resulted No growth after 24 hours . All specim... ABDIEL ALVES MD Oct 19, 2019 08:53
[2019-10-19] MEDS: TAMSULOSIN 0.4 MG CAP PO SCH (08:57)
[2019-10-19] MEDS: DIGOXIN 0.125 MG TAB PO SCH (08:57)
[2019-10-19] MEDS: SPIRONOLACTONE 12.5MG PER 1/2 TABLET PO SCH (08:58)
[2019-10-19] MEDS: CYANOCOBALAMIN 500 MCG TAB PO SCH (08:58)
[2019-10-19] MEDS: FINASTERIDE 5 MG TAB PO SCH (08:58)
[2019-10-19] MEDS: DABIGATRAN ETEXILATE 75 MG CAP (PRADAXA) PO SCH ×2 (08:58→20:13)
[2019-10-19] MEDS: GABAPENTIN 300 MG CAP PO SCH ×3 (08:58→20:10)
[2019-10-19] MEDS ORDERED: PREVNAR 13 VACCINE SYRINGE (CPT CODE:90670) IM ONE (09:00)
[2019-10-19] MEDS: METOPROLOL TART 25 MG TABLET PO SCH ×2 (09:00→20:12)
[2019-10-19] MEDS ORDERED: VANCOMYCIN HCL 1,000 MG, VIAL MATE ADAPTER 1 EACH in D5W 250 ML IV SCH ×2 (10:00→14:00)
[2019-10-19] MEDS: LEVALBUTEROL 1.25 MG/0.5 ML CONCENTRATE NEB INH SCH ×4 (10:12→21:26)
[2019-10-19] MEDS: predniSONE 20 MG TAB PO SCH (11:11)
[2019-10-19] MEDS: MEROPENEM INJ 1 GM in IV 1 EA IV SCH ×2 (11:12→18:16)
--- NOTE | 2019-10-19 13:42 | IPN ---
DATE: 10/19/2019 Patient complains of worsening shortness of breath pleuritic in nature. No fever, chills, but with cough productive of both yellow-white thick sputum. Patient has no nausea or vomiting, epigastric pain. He has felt no lightheadedness or dizziness, chest pain, pressure or tightness. Patient diuresed 3.5 liters yesterday. Current weight is 180.1 kg with admission weight of 185.[address] Gonzalez yesterday, patient most likely has congestive heart failure and should be continued on diuresis. Likely to be toxicity from amiodarone. The patient is convinced that all of his symptoms started when he had a reaction to amiodarone a few months ago. Patient also complains of occasional chills, which restarted again yesterday. Patient is resumed back on vancomycin and meropenem. This morning patient denied any nausea, vomiting, epigastric discomfort, not feeling well. Increase in weakness. Temperature 96.3, pulse 77, respiratory rate 18, blood pressure 124/67, 95% on 6 liters nasal cannula. Generally, awake, alert, oriented times three. No use of respiratory accessory muscles. No cyanosis. Speaks in full sentences. Positive jugular venous distention (JVD). No thyromegaly. Dry moist mucous membranes. No cervical lymphadenopathy. No stridor on neck exam. Lungs: Diminished bibasilar crackles. Heart, S1, S2. Sinus rhythm. Abdomen: Obese, soft, nontender, nondistended. Extremities: Trace to 1+ pitting edema. Input and output: Input 2.02 liters. Output 5.6 liters. Negative 3.5 liters. Current weight is 180.1 kg. Admission weight of 185 kg. LABORATORY DATA: White count 17.1, hemoglobin 12, hematocrit 38, platelet count 369. Sodium 138, potassium 3.8, chloride 101, bicarbonate 28, BUN 35, creatinine 1.16, glucose 102. IMAGING: A repeat chest x-ray on 10/19/2019: Bilateral infiltrate has mildly improved. Cardiomegaly is unchanged. Pacer sternotomy wires, surgical clips are unchanged. ASSESSMENT/PLAN: This is a 64-year-old male with history of coronary artery disease and coronary artery bypass graft (CABG), automatic implantable cardioverter defibrillator (AICD) pacer with cardiac arrest and third degree AV block, cor pulmonale with right-sided heart failure, Staphylococcus aureus (MRSA) in the left toe and osteomyelitis, chronic atrial fibrillation, chronic obstructive pulmonary disease (COPD), sleep apnea, morbid obesity possible amiodarone toxicity, presents to the emergency room with worsening shortness of breath, treated for presumed pneumonia, as well as congestive heart failure. Active issues are as follows: 1. Acute hypoxic respiratory failure multifactorial in etiology: Most likely secondary to congestive heart failure, acute exacerbation with preserved systolic and diastolic dysfunction ejection fraction of 50%. The patient has diuresed well and has been in net negative balance of 3 liters yesterday. Admission weight 185 kg, current weight 180.1 kg with slight improvement in repeat chest x-ray. Continue with negative diuresis. 2. Chronic atrial fibrillation on Lopressor 75 mg twice a day rate controlled as well as digoxin 0.125 daily. Patient is on Pradaxa 150 twice a day. 3. History of coronary artery disease CABG: On aspirin, Pradaxa, metoprolol and Crestor. 4. Chronic neuropathy: On gabapentin 300 mg three times a day. 5. Possible amiodarone induced toxicity/COPD exacerbation on prednisone 40 mg daily. Continue on Xopenex as needed and four times a day. 6. Vitamin B12 deficiency: 1000 mcg daily supplement. 7. Nausea: Check digoxin level for toxicity. Previous level was 1.0 on 10/17/2019. 8. Possible healthcare acquired pneumonia (HCAP) with bilateral infiltrates on CT chest cough productive of yellow thick sputum as well as increased white count to 17,000 without any fevers. Chart sputum culture versus screen. Start back on vancomycin and meropenem. Bacid to decrease risk of Clostridium difficile. If negative procalcitonin, may discontinue on antibiotics. MTDD
[2019-10-19] MEDS: ASPIRIN 81 MG ENTERIC TAB PO SCH (20:10)
[2019-10-19] MEDS: PANTOPRAZOLE 40MG TAB (PROTONIX) PO SCH (20:10)
[2019-10-19] MEDS: POTASSIUM CHLORIDE 10 MEQ SR TABLET PO SCH (20:10)
[2019-10-19] MEDS: ROSUVASTATIN 10 MG TAB (CRESTOR) PO SCH (20:12)
[2019-10-19] MEDS: LORATADINE 10 MG TAB PO SCH (20:13)
[2019-10-19] MEDS: DOCUSATE SODIUM 100 MG CAP PO SCH (20:13)
[2019-10-20] VITALS (24 sets, daily range): BP systolic 93–140; BP diastolic 50–75; O2SAT 78–97
[2019-10-20] MEDS: MEROPENEM INJ 1 GM in IV 1 EA IV SCH (03:06)
[2019-10-20] MEDS: LEVOTHYROXINE 100MCG TABLET (0.1MG) PO SCH (05:03)
[2019-10-20] MEDS: FUROSEMIDE 40 MG/4 ML VIAL (J1940) IV SCH ×2 (05:03)
[2019-10-20] MEDS: VANCOMYCIN HCL 1,000 MG, VIAL MATE ADAPTER 1 EACH in D5W 250 ML IV SCH (05:04)
[2019-10-20] MEDS: LEVOTHYROXINE 50MCG TABLET (0.05MG) PO SCH (05:04)
[2019-10-20 06:19] LABS: HEMATOCRIT 41.2 % (42.0-52.0); HEMOGLOBIN 12.5 g/dl (13.5-17.5); MEAN CORPUSCULAR HEMOGLOBIN 27.8 pg (27.0-33.0); MEAN CORPUSCULAR HGB CONC 30.3 g/dl (32.0-36.5); MEAN CORPUSCULAR VOLUME 91.8 fl (80.0-96.0); PLATELET COUNT, AUTOMATED 335 10^3/uL (150-450); RED BLOOD COUNT 4.49 10^6/uL (4.30-6.10); WHITE BLOOD COUNT 14.4 10^3/uL (4.0-10.0)
[2019-10-20 06:39] LABS: BLOOD UREA NITROGEN 37 MG/DL (7-18); CALCIUM LEVEL 8.6 MG/DL (8.8-10.2); CARBON DIOXIDE LEVEL 30 MEQ/L (21-32); CHLORIDE LEVEL 101 MEQ/L (98-107); CREATININE FOR GFR 1.23 MG/DL (0.70-1.30); GLOMERULAR FILTRATION RATE > 60.0 (>49); GLUCOSE, FASTING 100 MG/DL (70-100); MAGNESIUM LEVEL 2.2 MG/DL (1.8-2.4); POTASSIUM SERUM 3.8 MEQ/L (3.5-5.1); SODIUM LEVEL 140 MEQ/L (136-145)
[2019-10-20 06:41] LABS: VANCOMYCIN LEVEL TROUGH 33.3 UG/ML (10.0-20.0)
--- NOTE | 2019-10-20 07:03 | PHACANCOPD ---
PHARMACY VANCOMYCIN DOSING Pt Demographics Demographics Patient Age:64 , Weight:181.000 , Gender: male Adjusted Body Weight Vancomycin Vancomycin Target Ranges: 15-20 mcg/ml Vancomycin Load Y/N: Yes Load Dose Date Time Vancomycin Load Dose: 2GM Date: 10/17/19 Time: 22:00 Vancomycin Dose Date: 10/19/19. Current Vancomycin Dose: [1 gm q8h@06] Date: 10/18/19. Current Vancomycin Dose: [1GM IV Q8H (start 4AM)] Intermittent Dosing?: No Labs Micro Microbiology 10/19/19 Gram Stain - Final, Resulted 10/19/19 Sputum Culture, Resulted Pending 10/17/19 Blood Culture - Preliminary, Resulted No Growth after 48 hours. All Specime... 10/17/19 Respiratory Virus Panel (PCR) ([facility]WNA) - Final, Complete 10/17/19 Blood Culture - Preliminary, Resulted No Growth after 48 hours. All Specime... Creatinine Clearance Date:10/17/19. Creatinine Clearance: [>60 ML/MIN]. Assessment and Plan Maintaining Current Dose?: Yes Reason for dose change: No Dose Change Pharmacist Note Pharmacist Note Date: 10/20/19. Pharmacist note:6AM Vancomycin 1 gram dose hung@5:04 Lab mary Vancomycin trough @5:37 resulting in a level of 33.3. Will reschedule trough for later today to get accurate level. Vancomycin trough drawn 1.5 hours early: reported as 20.5, SCR (improved)=1.16< CRCL~75. will maintain 1 gram IV Q8Hour regimen for now with the next trough scheduled for tomorrow@ 5:00- will continue to follow [facility] Oct 20, 2019 07:03
[2019-10-20] MEDS: LEVALBUTEROL 1.25 MG/0.5 ML CONCENTRATE NEB INH SCH (08:53)
[2019-10-20] MEDS: METOPROLOL TART 25 MG TABLET PO SCH ×2 (09:00→20:59)
[2019-10-20] MEDS ORDERED: metOLazone 5 MG TAB PO SCH (09:00)
[2019-10-20] MEDS: DABIGATRAN ETEXILATE 75 MG CAP (PRADAXA) PO SCH ×2 (09:12→20:59)
[2019-10-20] MEDS: FINASTERIDE 5 MG TAB PO SCH (09:13)
[2019-10-20] MEDS: SPIRONOLACTONE 12.5MG PER 1/2 TABLET PO SCH (09:15)
[2019-10-20] MEDS: GABAPENTIN 300 MG CAP PO SCH ×3 (09:15→20:59)
[2019-10-20] MEDS: predniSONE 20 MG TAB PO SCH (09:15)
[2019-10-20] MEDS: TAMSULOSIN 0.4 MG CAP PO SCH (09:15)
[2019-10-20] MEDS: CYANOCOBALAMIN 500 MCG TAB PO SCH (09:16)
[2019-10-20] MEDS: DIGOXIN 0.125 MG TAB PO SCH (09:16)
[2019-10-20] MEDS: BUMETANIDE 1 MG/4 ML INJ (S0171) IV SCH ×2 (09:17→18:18)
[2019-10-20] MEDS ORDERED: LEVALBUTEROL 1.25 MG/0.5 ML CONCENTRATE NEB INH PRN (10:30)
[2019-10-20 11:40] LABS: NT-PRO BNP 603 PG/ML (<125)
[2019-10-20] MEDS: methylPREDNISolone INJ 40 MG/1 ML VIAL (J2920) IV SCH ×2 (12:12→23:24)
--- NOTE | 2019-10-20 12:30 | IPN ---
DATE: 10/20/2019 SUBJECTIVE: The patient still complains of dyspnea on exertion walking from the bed to the bathroom. She has no chest pain, pressure or tightness. He still has a cough productive of white-yellow sputum. Antibiotics discontinued. Procalcitonin less than 0.2 so making bacterial infection unlikely despite bilateral infiltrates on CT of the chest. The patient has been diuresing well and has been in net negative balance. He has seen no improvement at all with his dyspnea from yesterday to today. Weight is decreased as well. Nebulizer treatments do not seem to help him. He is saturating 89% on 5 liters nasal cannula, currently on prednisone increased back to Solu-Medrol intravenously. The patient reports no complaints of chills or fevers. Repeat chest x-ray on 10/19/2019 shows slight improvement in the bilateral infiltrates. Chest x-ray today is still pending. The patient reports no nausea or vomiting, abdominal pain, epigastric pain. Tolerating his diet well. No paroxysmal nocturnal dyspnea or orthopnea. PHYSICAL EXAMINATION: VITAL SIGNS: Temperature 96.5, pulse 84, respiratory rate 20, blood pressure 100/50, 97% on 5 liters nasal cannula. GENERAL: Awake, alert, oriented times three. Answering questions appropriately. No respiratory distress or use of accessory respiratory muscles. Able to speak in full sentences. Mild jugular venous distention (JVD). No thyromegaly or cervical lymphadenopathy. LUNGS: Clear to auscultation bilaterally. HEART: S1, S2, sinus rhythm. ABDOMEN: Obese, soft, nontender, nondistended. EXTREMITIES: Trace edema in bilateral lower extremities with chronic venous stasis changes. LABORATORY DATA: White count 14, hemoglobin 12, hematocrit 41, platelet count 335. Sodium 140, potassium 3.8, chloride 111, bicarbonate 30, BUN 37, creatinine 1.23, glucose of 100, BNP is 603, magnesium of 2.2. Sputum culture is pending. Two sets of blood cultures with no growth after 72 hours. Respiratory panel is negative. Procalcitonin is 0.20. ASSESSMENT AND PLAN: This is a 64-year-old male with prior amiodarone exposure, questionable pulmonary toxicity, obstructive sleep apnea on chronic CPAP, coronary artery bypass graft (CABG), coronary artery disease, AICD due to cardiac arrest, 3rd degree AV block, cor pulmonale, right sided heart failure, methicillin resistant Staphylococcus aureus (MRSA) and left toe osteomyelitis, chronic atrial fibrillation, who represents to the emergency room after previous admission in August for worsening shortness of breath, treated for presumed pneumonia due to bilateral infiltrates noted on CT of the chest, currently being treated for the following issues: 1. Acute hypoxic respiratory failure, differential diagnosis includes pulmonary toxicity from prior amiodarone use. Chronic obstructive pulmonary disease (COPD) exacerbation, congestive heart failure (CHF). The patient has been in net negative balance since admission and weight is improving. Repeat chest x-ray showed some improvement. The patient has continued on fluid restriction and requesting the restriction to be lifted to 2 liters. Admission weight was 185.8 kg and current weight is 181 kg. Strict input and output, daily weights, fluid restriction, monitor the patient's creatinine and electrolytes and supplement potassium, magnesium and calcium if needed. 2. Chronic atrial fibrillation. Currently rate controlled on digoxin and metoprolol. Anticoagulation 3. Congestive heart failure (CHF). Currently on Bumex trial. The patient has been net negative balance. Strict input and output, daily weights and fluid restriction. Doing well but still hypoxic. No pulmonary embolism noted on CT of the chest. 4. Hypothyroidism. On chronic Synthroid. 5. Hypertension, well controlled on current metoprolol 75 mg twice a day. 6. Dyslipidemia. On Questran. 7. Morbid obesity. Body Mass Index (BMI) 49.9 with obstructive sleep apnea. Compliant with his CPAP. [facility]
--- NOTE | 2019-10-20 12:33 | REP ---
PA and lateral chest three views: Comparisons are 10/19/2019 and 10/17/2019. There are bibasilar densities, somewhat worsened from 10/19/2019 but similar to the 10/17/2019. No pleural effusions are identified. Sternotomy wires, cardiomegaly and pacemaker are unchanged. Impression: Worsening bibasilar densities as described. Electronically Signed by Minesh Garcia MD 10/20/2019 12:23 P
--- NOTE | 2019-10-20 16:29 | ECHO ---
DATE OF STUDY: 10/20/2019 REFERRING PHYSICIAN: Dr. Daisy Terry INDICATION: Shortness of breath. HEIGHT: 75 inches WEIGHT: 181 55 kg 2-D MEASUREMENTS: Aortic root: 3.3 cm Ventricular septum: 1.25 cm Posterior wall: 1.25 cm Left ventricle diastole: 6.3 cm Left atrium: 5.5 cm LVOT: 2.2 cm Inferior vena cava: 2.5 cm with marked reduction of respiratory variation. DOPPLER MEASUREMENTS: No aortic regurgitation. Aortic valve velocity: 127cm/sec No mitral regurgitation. No mitral stenosis. Mild tricuspid regurgitation. No pulmonic regurgitation. Estimated right ventricle systolic pressure at least 47 mmHg assuming a pressure of at least 20 mmHg. DESCRIPTION: Rhythm was probably atrial fibrillation but it was difficult to determine from the available ECG, electrocardiographic rhythm strip. This is a moderately technically difficult echocardiogram. No pericardial. This was a 2-D, M-mode, color flow Doppler and pulsed wave Doppler examination and included mitral annular tissue Doppler. CONCLUSIONS: 1. Mild eccentric left ventricular hypertrophy with mild left ventricle dilatation. Mild paradoxical septal motion with probably normal wall motion and wall thickening of the LV free wall elsewhere. Left ventricular ejection fraction appeared to be at the lower limits of norm By visual estimate left ventricular ejection fraction was 50%. 2. Mild mitral annular calcification. No mitral regurgitation. 3. Mild aortic valve sclerosis with a 3-cusp aortic valve. No aortic regurgitation. 4. Suggestive of at least moderate elevation estimated right ventricle systolic pressure. Mild tricuspid regurgitation. Inferior vena cava plethora. Suggestive of elevated central venous pressure at least 20 mmHg. Right ventricle appeared normal in systolic function. 5. Presence of cardiac rhythm management leads with identification of an implantable cardioverter defibrillator (ICD) lead in the right ventricle and what appears to be most likely be a coronary sinus LV pacing lead. Edited: 10/20/2019 [id number]
[2019-10-20 16:39] LABS: IONIZED CALCIUM 4.5 MG/DL (4.5-5.3)
[2019-10-20 17:02] LABS: BLOOD UREA NITROGEN 37 MG/DL (7-18); CALCIUM LEVEL 8.7 MG/DL (8.8-10.2); CARBON DIOXIDE LEVEL 31 MEQ/L (21-32); CHLORIDE LEVEL 100 MEQ/L (98-107); GLOMERULAR FILTRATION RATE > 60.0 (>49); GLUCOSE, FASTING 167 MG/DL (70-100); MAGNESIUM LEVEL 2.2 MG/DL (1.8-2.4); POTASSIUM SERUM 4.3 MEQ/L (3.5-5.1); SODIUM LEVEL 137 MEQ/L (136-145)
[2019-10-20] MEDS: LORATADINE 10 MG TAB PO SCH (20:58)
[2019-10-20] MEDS: PANTOPRAZOLE 40MG TAB (PROTONIX) PO SCH (20:59)
[2019-10-20] MEDS: ROSUVASTATIN 10 MG TAB (CRESTOR) PO SCH (20:59)
[2019-10-20] MEDS: ASPIRIN 81 MG ENTERIC TAB PO SCH (20:59)
[2019-10-20] MEDS: DOCUSATE SODIUM 100 MG CAP PO SCH (21:00)
[2019-10-20] MEDS: POTASSIUM CHLORIDE 10 MEQ SR TABLET PO SCH (21:00)
[2019-10-20 22:01] LABS: IONIZED CALCIUM 4.5 MG/DL (4.5-5.3)
[2019-10-20 22:38] LABS: CALCIUM LEVEL 8.7 MG/DL (8.8-10.2); CREATININE FOR GFR 1.37 MG/DL (0.70-1.30); GLOMERULAR FILTRATION RATE 55.3 (>49); MAGNESIUM LEVEL 2.3 MG/DL (1.8-2.4); POTASSIUM SERUM 4.4 MEQ/L (3.5-5.1)
[2019-10-21] VITALS (19 sets, daily range): BP systolic 131–149; BP diastolic 64–71; O2SAT 85–97
[2019-10-21] MEDS: BUMETANIDE 1 MG/4 ML INJ (S0171) IV SCH (02:00)
[2019-10-21] MEDS: LEVOTHYROXINE 50MCG TABLET (0.05MG) PO SCH (05:27)
[2019-10-21] MEDS: LEVOTHYROXINE 100MCG TABLET (0.1MG) PO SCH (05:27)
[2019-10-21 05:30] LABS: HEMOGLOBIN 13.6 g/dl (13.5-17.5); MEAN CORPUSCULAR HEMOGLOBIN 28.5 pg (27.0-33.0); MEAN CORPUSCULAR HGB CONC 31.6 g/dl (32.0-36.5); MEAN CORPUSCULAR VOLUME 90.1 fl (80.0-96.0); PLATELET COUNT, AUTOMATED 410 10^3/uL (150-450); RED BLOOD COUNT 4.77 10^6/uL (4.30-6.10); WHITE BLOOD COUNT 16.5 10^3/uL (4.0-10.0)
[2019-10-21 05:50] LABS: BLOOD UREA NITROGEN 39 MG/DL (7-18); CALCIUM LEVEL 9.1 MG/DL (8.8-10.2); CARBON DIOXIDE LEVEL 31 MEQ/L (21-32); CHLORIDE LEVEL 100 MEQ/L (98-107); CREATININE FOR GFR 1.32 MG/DL (0.70-1.30); GLOMERULAR FILTRATION RATE 57.8 (>49); GLUCOSE, FASTING 138 MG/DL (70-100); MAGNESIUM LEVEL 2.4 MG/DL (1.8-2.4); POTASSIUM SERUM 4.5 MEQ/L (3.5-5.1); SODIUM LEVEL 137 MEQ/L (136-145)
[2019-10-21] MEDS ORDERED: BUMETANIDE 1 MG/4 ML INJ (S0171) IV SCH (06:00)
[2019-10-21] MEDS ORDERED: FUROSEMIDE 40 MG TAB PO SCH (09:00)
[2019-10-21] MEDS: GABAPENTIN 300 MG CAP PO SCH ×3 (09:02→21:35)
[2019-10-21] MEDS: TAMSULOSIN 0.4 MG CAP PO SCH (09:02)
[2019-10-21] MEDS: METOPROLOL TART 25 MG TABLET PO SCH ×2 (09:02→21:36)
[2019-10-21] MEDS: DABIGATRAN ETEXILATE 75 MG CAP (PRADAXA) PO SCH ×2 (09:03→21:36)
[2019-10-21] MEDS: FINASTERIDE 5 MG TAB PO SCH (09:03)
[2019-10-21] MEDS: DIGOXIN 0.125 MG TAB PO SCH (09:03)
[2019-10-21] MEDS: CYANOCOBALAMIN 500 MCG TAB PO SCH (09:03)
[2019-10-21] MEDS ORDERED: SLF 3 ML SYR IV PRN (10:45)
[2019-10-21] MEDS: methylPREDNISolone INJ 40 MG/1 ML VIAL (J2920) IV SCH (11:57)
[2019-10-21] MEDS ORDERED: PRED10TA2 PO (13:28)
[2019-10-21] MEDS: SLF 3 ML SYR IV SCH ×2 (13:51→22:33)
[2019-10-21 14:42] LABS: RHEUMATOID FACTOR QUANT < 10.0 IU/ML (<15.0)
[2019-10-21] MEDS: FUROSEMIDE 40 MG/4 ML VIAL (J1940) IV SCH ×2 (17:48→21:38)
--- NOTE | 2019-10-21 17:57 | IPN ---
DATE: 10/21/2019 Patient says that he feels a little bit better from yesterday. He had diuresed a total of 2.2 liters out and was -835. Current weight is 180 kg from admission weight of 185.8 kg. The patient denies any chest pain, pressure or tightness. No nausea, vomiting, epigastric pain, feeling of impending doom, or diaphoresis. Patient denies any headaches, changes in vision. No rhinorrhea. He has passed a home safety evaluation, eager to go home. Temperature 96.6, pulse 77, respiratory rate 18, blood pressure 142/64, 97% on 5 liters nasal cannula. GENERAL: Patient is awake, alert, oriented times three, answering questions appropriately. He has no conversational dyspnea. No use of respiratory accessory muscles. Trachea is midline. Patient has a thick neck. Unable to assess for jugular venous distention or thyromegaly. Moist mucous membranes. LUNGS: Diminished at the bases with bibasilar rales. HEART: S1, S2, regular rate and rhythm. ABDOMEN: Obese, soft, nontender, nondistended. EXTREMITIES: Positive 1+ edema. Chronic venous stasis changes, lower extremities. LABORATORY DATA: White count 16.5, hemoglobin 13, hematocrit 43, platelet count 410. Sodium 137, potassium 4.5, chloride 100, bicarbonate 31, BUN 39, creatinine 1.32, glucose of 138. BMP is 603. IMAGING STUDY: Repeat chest x-ray: Worsening bilateral, bibasilar infiltrates. 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, obstructive sleep apnea (LENA) for 20 years, compliant with chronic continuous positive airway pressure (CPAP) at home, chronic hypoxic respiratory failure, usually on 2-3 liters of oxygen, third-degree atrioventricular (AV) block with automatic implantable cardioverter-defibrillator (AICD) and pacer, biventricular pacer, cor pulmonale, right-sided heart failure, methicillin-resistant Staphylococcus aureus (MRSA) in the left toe, osteomyelitis, and chronic atrial fibrillation presents to the emergency room (ER) with worsening shortness of breath, found to have bilateral infiltrates on CT of the chest. Patient was initially started on vancomycin and Zosyn for presumed hospital-acquired pneumonia but had an unremarkable procalcitonin, for which the antibiotics had been discontinued. Patient was continued on Lasix diuresis with net-negative balance and some improvement. Per Dr. Gonzalez, most likely due to congestive heart failure (CHF). CURRENT ISSUES: 1. Acute on chronic hypoxic respiratory failure secondary to decompensated chronic systolic and diastolic congestive heart failure with ejection fraction of 50% and right-sided heart failure with cor pulmonale. Per Dr. Mejía, patient has known history of pulmonary hypertension, most likely secondary to morbid obesity as well as obstructive sleep apnea and is best served with no further evaluation but with continued diuresis and discussion of code status. Patient will continue to decompensate in the near future and is best served with a discussion with end-of-life issues down the line. It is reasonable to continue with Lasix diuresis and to followup in Dr. Mejía' office. He is not, however, recommending any continued evaluation and does not recommend any stress test and coronary angiograms. Patient is currently kept on strict intakes and outputs, daily weights, and fluid restriction. Yesterday he requested fluid restriction to be lifted, 2 liters; however, we do need to keep to a net-negative balance and continue to weigh him daily. Finishing Machine Operator, Dr. Buitrago, has been consulted for further evaluation and patient's significant hypoxia. He agrees that patient is in decompensated congestive heart failure and encouraged further diuresis. 2. Morbid obesity, body mass index (BMI) 49.6. Patient is compliant with his CPAP. Continue with Lasix diuresis. 3. Pulmonary hypertension secondary to longstanding obesity. 4. Obstructive sleep apnea (LENA), contributing to right-sided congestive heart failure. Per Dr. Mejía, patient is appropriate to be DO NOT RESUSCITATE. This discussion needs to be re-emphasized with the patient, who is still currently a full code. 5. Hypothyroidism, on Synthroid. 6. Hypertension, on metoprolol twice a day. 7. Dyslipidemia, on statin. DISPOSITION: Patient needs further diuresis. MTDD
[2019-10-21] MEDS: PANTOPRAZOLE 40MG TAB (PROTONIX) PO SCH (21:35)
[2019-10-21] MEDS: LORATADINE 10 MG TAB PO SCH (21:35)
[2019-10-21] MEDS: POTASSIUM CHLORIDE 10 MEQ SR TABLET PO SCH (21:36)
[2019-10-21] MEDS: ASPIRIN 81 MG ENTERIC TAB PO SCH (21:36)
[2019-10-21] MEDS: ROSUVASTATIN 10 MG TAB (CRESTOR) PO SCH (21:36)
[2019-10-21] MEDS: DOCUSATE SODIUM 100 MG CAP PO SCH (21:36)
[2019-10-22] VITALS (10 sets, daily range): BP systolic 109–152; BP diastolic 59–78; O2SAT 95–96
[2019-10-22] MEDS: FUROSEMIDE 40 MG/4 ML VIAL (J1940) IV SCH ×6 (01:52→22:48)
[2019-10-22] MEDS: LEVOTHYROXINE 100MCG TABLET (0.1MG) PO SCH (05:10)
[2019-10-22] MEDS: LEVOTHYROXINE 50MCG TABLET (0.05MG) PO SCH (05:10)
[2019-10-22] MEDS: SLF 3 ML SYR IV SCH ×3 (05:11→22:48)
[2019-10-22 06:02] LABS: HEMATOCRIT 42.8 % (42.0-52.0); HEMOGLOBIN 13.7 g/dl (13.5-17.5); MEAN CORPUSCULAR HEMOGLOBIN 28.5 pg (27.0-33.0); PLATELET COUNT, AUTOMATED 424 10^3/uL (150-450); RED BLOOD COUNT 4.81 10^6/uL (4.30-6.10); WHITE BLOOD COUNT 22.8 10^3/uL (4.0-10.0)
[2019-10-22 06:25] LABS: BLOOD UREA NITROGEN 43 MG/DL (7-18); CARBON DIOXIDE LEVEL 34 MEQ/L (21-32); CHLORIDE LEVEL 99 MEQ/L (98-107); CREATININE FOR GFR 1.13 MG/DL (0.70-1.30); GLOMERULAR FILTRATION RATE > 60.0 (>49); GLUCOSE, FASTING 117 MG/DL (70-100); MAGNESIUM LEVEL 2.6 MG/DL (1.8-2.4); SODIUM LEVEL 138 MEQ/L (136-145)
[2019-10-22] MEDS: CYANOCOBALAMIN 500 MCG TAB PO SCH (08:55)
[2019-10-22] MEDS: TAMSULOSIN 0.4 MG CAP PO SCH (08:55)
[2019-10-22] MEDS: DABIGATRAN ETEXILATE 75 MG CAP (PRADAXA) PO SCH ×2 (08:55→21:02)
[2019-10-22] MEDS: DIGOXIN 0.125 MG TAB PO SCH (08:55)
[2019-10-22] MEDS: GABAPENTIN 300 MG CAP PO SCH ×3 (08:56→21:02)
[2019-10-22] MEDS: METOPROLOL TART 25 MG TABLET PO SCH ×2 (08:56→21:03)
[2019-10-22] MEDS: FINASTERIDE 5 MG TAB PO SCH (08:56)
[2019-10-22] MEDS ORDERED: metOLazone 5 MG TAB PO ONE (15:00)
--- NOTE | 2019-10-22 18:07 | IPN ---
DATE: 10/22/2019 PULMONARY SERVICE: The patient is seen in the progressive care unit. This is hospital day number five. He looks and feels somewhat better. He continues to show oxygen desaturations on his home pulse oximeter with activity but I question the validity of his device. He is responding well to diuretics. He slept well through the night on continuous positive airway pressure (CPAP). His temperature is 96, pulse rate 70, respirations 20, blood pressure 152/77, oxygen saturation 96% on five liters. Intake and output for the past 24 hours is 1560 in, 3500 out. He is negative 1940 over the last 24 hours. At bedside, he is not in acute distress. His oral mucosa is pink. Neck is supple. Jugular veins are difficult to appreciate. Heart sounds are irregularly irregular consistent with atrial fibrillation and his breath sounds are diminished bilaterally with some basilar crepitance. Abdomen is soft and obese. Extremities show gross edema and chronic skin changes. DIAGNOSTIC STUDIES: Sodium is 138, potassium 4.0, chloride 99, CO2 34, BUN 43, creatinine 1.13, glucose 117. White cell count is 22.8, hemoglobin 13.7, hematocrit 42.8, and platelet count 425,000. IMPRESSION: 1. Hypoxemia. He is improving with diuresis. 2. Interstitial lung disease. I sent off serology yesterday to investigate other possible etiologies. I suspect this is related to remote exposure to amiodarone combined with interstitial edema. However, other possibilities exist. His rheumatoid factor is negative. Other remaining studies are not back. 3. Obstructive sleep apnea syndrome. The patient is tolerating continuous positive airway pressure (CPAP) well at night and his saturations remain acceptable through the night. I would recommend continuing diuresis to dry weight.
--- NOTE | 2019-10-22 20:45 | IPN ---
DATE: 10/22/2019 Despite adequate net-negative diuresis, patient continues to be dyspneic when he ambulates. He had not been on supplemental oxygen last year and currently since August had required supplemental oxygen. He currently denies any chest pain, pressure, or tightness, lightheadedness or dizziness. Temperature 98.1, pulse 81, respiratory rate 17, blood pressure 114/70, 95% on 5 liters nasal cannula. GENERAL: Patient is awake, alert, oriented, answering questions appropriately. No conversational dyspnea. No cyanosis. No use of respiratory accessory muscles. Trachea is midline. No stridor. LUNGS: Clear to auscultation. Diminished at the bases with fine crackles. HEART: S1, S2, sinus rhythm. ABDOMEN: Obese, Soft, nontender, nondistended. EXTREMITIES: Trace edema. Chronic venous stasis changes. White count 22.8, hemoglobin 13, hematocrit 42, platelet count 424. Sodium 138, potassium 4, chloride 99, bicarbonate 34, BUN 43, creatinine 1.13, glucose 117. Sputum: Yeast-like organisms. Blood culture negative. Respiratory panel negative. ASSESSMENT AND PLAN: This is a 64-year-old morbidly obese male, body mass index (BMI) 48.5, with right-sided heart failure, obstructive sleep apnea, compliant with his continuous positive airway pressure (CPAP), congestive heart failure, diastolic dysfunction, atrial fibrillation with amiodarone-induced toxicity, coronary artery disease (CAD), coronary artery bypass graft (CABG), automatic implantable cardioverter-defibrillator (AICD), third-degree atrioventricular (AV) block, cor pulmonale, methicillin-resistant Staphylococcus aureus (MRSA), osteomyelitis, presents to the emergency room (ER) due to worsening shortness of breath. IMPRESSION: 1. Acute hypoxic respiratory failure secondary to congestive heart failure exacerbation with acute decompensation. He is currently kept on strict intake and output, daily weights, and fluid restriction. Patient is diuresing well with admission weight of 185.8 kg and current weight of 176.1 kg. Input yesterday was 1560, output of 3500, -1.94 liters. Switching Operator, Dr. Buitrago, has been consulted for assistance in management of patient's hypoxia. Hypersensitivity pneumonitis workup has been sent, including antinuclear antibody (MIGUEL), antineutrophil cytoplasmic antibodies (ANCA), Sjogren's, rheumatoid factor. Per Dr. Mejía, the patient has persistent cor pulmonale with pulmonary hypertension. He recommends to continue diuresis. No further cardiac evaluation is needed. He did not recommend any stress test of coronary angiogram as outpatient. 2. Chronic atrial fibrillation, rate controlled on digoxin and metoprolol and on chronic anticoagulation. 3. Hypothyroidism, on Synthroid. 4. Hypertension, on metoprolol 75 twice a day. 5. Dyslipidemia, on chronic Crestor, rosuvastatin. 6. Allergic rhinitis, on chronic Claritin. 7. Neuropathy, on Neurontin three times a day. 8. B12 deficiency, on supplement. MTDD
[2019-10-22] MEDS: DOCUSATE SODIUM 100 MG CAP PO SCH (21:00)
[2019-10-22] MEDS: PANTOPRAZOLE 40MG TAB (PROTONIX) PO SCH (21:01)
[2019-10-22] MEDS: ASPIRIN 81 MG ENTERIC TAB PO SCH (21:01)
[2019-10-22] MEDS: POTASSIUM CHLORIDE 10 MEQ SR TABLET PO SCH (21:01)
[2019-10-22] MEDS: LORATADINE 10 MG TAB PO SCH (21:02)
[2019-10-22] MEDS: ROSUVASTATIN 10 MG TAB (CRESTOR) PO SCH (21:02)
[2019-10-23 02:00] VITALS: BP 116/64
[2019-10-23] MEDS: FUROSEMIDE 40 MG/4 ML VIAL (J1940) IV SCH ×2 (03:30→06:00)
[2019-10-23 05:01] VITALS: O2SAT 88
[2019-10-23 06:00] VITALS: BP 118/66
[2019-10-23 06:00] LABS: HEMATOCRIT 47.9 % (42.0-52.0); HEMOGLOBIN 14.5 g/dl (13.5-17.5); MEAN CORPUSCULAR HEMOGLOBIN 27.4 pg (27.0-33.0); MEAN CORPUSCULAR HGB CONC 30.3 g/dl (32.0-36.5); MEAN CORPUSCULAR VOLUME 90.5 fl (80.0-96.0); PLATELET COUNT, AUTOMATED 426 10^3/uL (150-450); RED BLOOD COUNT 5.29 10^6/uL (4.30-6.10)
[2019-10-23] MEDS: LEVOTHYROXINE 50MCG TABLET (0.05MG) PO SCH (06:01)
[2019-10-23] MEDS: SLF 3 ML SYR IV SCH ×3 (06:01→21:34)
[2019-10-23] MEDS: LEVOTHYROXINE 100MCG TABLET (0.1MG) PO SCH (06:01)
[2019-10-23 06:14] LABS: CREATININE FOR GFR 1.63 MG/DL (0.70-1.30); GLOMERULAR FILTRATION RATE 45.3 (>49); MAGNESIUM LEVEL 2.3 MG/DL (1.8-2.4); POTASSIUM SERUM 3.4 MEQ/L (3.5-5.1)
[2019-10-23] MEDS ORDERED: POTASSIUM CHLORIDE 10 MEQ SR TABLET PO ONE (07:45)
[2019-10-23 09:00] VITALS: O2SAT 92
--- NOTE | 2019-10-23 09:17 | REP ---
CHEST, PA AND LATERAL: 10/23/2019. Comparison: Chest 10/20/2019, 10/19/2019, 10/17/2019, 08/28/2019. CT chest 10/17/2019, 08/29/2019. Clinical history: Dyspnea. Findings: Sternotomy wires, mediastinal clips and pacer over the left chest with leads in the right ventricle and an epicardial lead, unchanged. There are extensive basilar chronic interstitial fibrotic changes with superimposed patchy infiltrates, atelectasis or edema. These are improved compared to the 10/20/2009 examination. No gross effusion. Heart is enlarged with left atrial and ventricular enlargement. Right heart enlargement is suggested as well. I do not see upper lobe vascular engorgement. Bony thorax shows degenerative endplate changes without compression deformity. Airway intact. The aorta without gross aneurysm. Impression: 1. Prior sternotomy and a multilead pacer over the chest are stable. 2. Cardiomegaly with left and right heart enlargement and some chronic diffuse interstitial changes suggesting fibrosis. Superimposed on this are patchy infiltrates or alveolar edema. This is improved radiographically compared to 10/20/2019. No effusion. Electronically Signed by Mekhi Reyes MD 10/23/2019 08:16 P
[2019-10-23] MEDS: DABIGATRAN ETEXILATE 75 MG CAP (PRADAXA) PO SCH ×2 (09:20→20:33)
[2019-10-23] MEDS: DIGOXIN 0.125 MG TAB PO SCH (09:21)
[2019-10-23] MEDS: TAMSULOSIN 0.4 MG CAP PO SCH (09:21)
[2019-10-23] MEDS: METOPROLOL TART 25 MG TABLET PO SCH ×2 (09:21→20:39)
[2019-10-23] MEDS: CYANOCOBALAMIN 500 MCG TAB PO SCH (09:21)
[2019-10-23] MEDS: FINASTERIDE 5 MG TAB PO SCH (09:22)
[2019-10-23] MEDS: GABAPENTIN 300 MG CAP PO SCH ×3 (09:22→20:34)
[2019-10-23 12:37] LABS: CREATININE FOR GFR 1.65 MG/DL (0.70-1.30); GLOMERULAR FILTRATION RATE 44.7 (>49); POTASSIUM SERUM 3.6 MEQ/L (3.5-5.1)
[2019-10-23 14:00] VITALS: BP 101/57
[2019-10-23 18:37] LABS: CALCIUM LEVEL 8.6 MG/DL (8.8-10.2); CREATININE FOR GFR 1.59 MG/DL (0.70-1.30); GLOMERULAR FILTRATION RATE 46.6 (>49); POTASSIUM SERUM 3.4 MEQ/L (3.5-5.1)
[2019-10-23] MEDS: ROSUVASTATIN 10 MG TAB (CRESTOR) PO SCH (20:34)
[2019-10-23] MEDS: ASPIRIN 81 MG ENTERIC TAB PO SCH (20:34)
[2019-10-23] MEDS: DOCUSATE SODIUM 100 MG CAP PO SCH ×2 (20:34→20:43)
[2019-10-23] MEDS: PANTOPRAZOLE 40MG TAB (PROTONIX) PO SCH (20:34)
[2019-10-23] MEDS: POTASSIUM CHLORIDE 10 MEQ SR TABLET PO SCH (20:35)
[2019-10-23] MEDS: LORATADINE 10 MG TAB PO SCH (20:35)
[2019-10-23 22:00] VITALS: BP 95/55
[2019-10-24 02:00] VITALS: BP 114/65
[2019-10-24] MEDS: LEVOTHYROXINE 100MCG TABLET (0.1MG) PO SCH (05:47)
[2019-10-24] MEDS: LEVOTHYROXINE 50MCG TABLET (0.05MG) PO SCH (05:47)
[2019-10-24] MEDS: SLF 3 ML SYR IV SCH ×3 (05:50→21:35)
[2019-10-24 06:00] VITALS: BP 113/63
[2019-10-24 06:02] LABS: HEMATOCRIT 43.2 % (42.0-52.0); HEMOGLOBIN 13.7 g/dl (13.5-17.5); MEAN CORPUSCULAR HEMOGLOBIN 28.1 pg (27.0-33.0); MEAN CORPUSCULAR HGB CONC 31.7 g/dl (32.0-36.5); MEAN CORPUSCULAR VOLUME 88.5 fl (80.0-96.0); PLATELET COUNT, AUTOMATED 340 10^3/uL (150-450); RED BLOOD COUNT 4.88 10^6/uL (4.30-6.10)
[2019-10-24 06:22] LABS: CALCIUM LEVEL 8.5 MG/DL (8.8-10.2); CREATININE FOR GFR 1.45 MG/DL (0.70-1.30); GLOMERULAR FILTRATION RATE 51.8 (>49); MAGNESIUM LEVEL 2.4 MG/DL (1.8-2.4); POTASSIUM SERUM 3.1 MEQ/L (3.5-5.1)
[2019-10-24 09:00] VITALS: O2SAT 95
[2019-10-24 10:00] VITALS: BP 113/66
[2019-10-24] MEDS ORDERED: POTASSIUM CHLORIDE 10 MEQ SR TABLET PO ONE (10:00)
[2019-10-24] MEDS ORDERED: metOLazone 5 MG TAB PO ONE (10:00)
[2019-10-24] MEDS: DABIGATRAN ETEXILATE 75 MG CAP (PRADAXA) PO SCH ×2 (10:16→21:35)
[2019-10-24] MEDS: DIGOXIN 0.125 MG TAB PO SCH (10:17)
[2019-10-24] MEDS: CYANOCOBALAMIN 500 MCG TAB PO SCH (10:17)
[2019-10-24] MEDS: TAMSULOSIN 0.4 MG CAP PO SCH (10:18)
[2019-10-24] MEDS: FINASTERIDE 5 MG TAB PO SCH (10:18)
[2019-10-24] MEDS: METOPROLOL TART 25 MG TABLET PO SCH ×2 (10:18→21:41)
[2019-10-24] MEDS: GABAPENTIN 300 MG CAP PO SCH ×3 (10:18→21:35)
[2019-10-24] MEDS ORDERED: BUMETANIDE 1 MG TAB PO ONE (10:30)
--- NOTE | 2019-10-24 12:29 | IPN ---
DATE: 10/24/2019 Mr. Catherine reports that he is doing better. He has decreased shortness of breath, which she attributes to diuresis. No significant cough. No chest pain or pressure. He did have difficulties with loose stools yesterday but not this morning. No nausea or emesis. He continues to use his CPAP at nightly. OBJECTIVE: PHYSICAL EXAMINATION: GENERAL: Mr. Catherine is sitting in a lounge chair in no acute distress. Completing full sentences. No cough throughout the evaluation. VITAL SIGNS: Temperature 97.2 with a T-max of 97.6, pulse 84, blood pressure 112/65, sPO2 93% on 2 liters by nasal cannula. HEENT: Anicteric, nares: Patent bilaterally moisture mucosa, oxygen tubing in place. Oropharynx clear. No lesions. Mallampati IV. NECK: Supple, without thyromegaly or masses. Unable to assess jugular venous pulse (JVP) secondary to body habitus and positioning. LUNGS: Symmetric excursion, generalized diminished air entry, minimal bibasilar crackles. No wheeze or rhonchi. Normal I:E. No accessory muscle usage or retractions. CARDIOVASCULAR: Irregular regular, normal S1, S2, no murmur, rub or gallop appreciated. ABDOMEN: Obese, soft, nondistended, no hepatosplenomegaly or masses appreciated. Suboptimal examination done in the sitting position as well as from body habitus. EXTREMITIES: Positive edema, chronic skin changes, without clubbing or cyanosis sick, palpable pedal pulses bilaterally. LABORATORY DATA: Chemistry shows sodium 137, potassium 3.1, chloride 97, bicarbonate 34, anion gap six, BUN 56, creatinine 1.5, glucose 103, calcium 8.5, magnesium 2.4. CBC shows a hemoglobin of 13.7, hematocrit 43.2, platelet count 340,000, white blood cell count 16,000. Immunologic evaluation is pending with the exception of the rheumatoid factor less than 10. Yesterday's input and output were 1190 in and 1440 out making him negative 250. Weight 176.7 kg. ASSESSMENT: 1. Hypoxemia, the majority of which is felt secondary to pulmonary edema. Has improved with diuresis. There may also be a component related to interstitial lung disease. 2. Interstitial lung disease: Serology is still pending. 3. Obstructive sleep apnea syndrome, on CPAP. 4. Cor pulmonale, diuresing. RECOMMENDATIONS: 1. Await lab results for a immunologic workup. 2. However, he does not need to remain inpatient for these studies to return. When the primary team feels he is able to be discharged these could be followed up with as an outpatient. 3. Given his significant diuresis, we will repeat a chest CT scan at this point to see if his infiltrates have improved. If they have, that would suggest that at least part of the infiltrates is related to pulmonary edema. 4. At this point, I have nothing further to offer in regards to his care. Will continue to follow him from "[facility]", for the next few days as lab information becomes available. If he is discharged in that time, he should have a followup with Dr. Buitrago in a couple of weeks.
--- NOTE | 2019-10-24 14:05 | REP ---
CT of the chest without IV contrast: Comparison is 2019. There are diffuse bilateral alveolar and interstitial infiltrates. These infiltrates have only mildly improved. There are no pleural effusions. The mediastinal adenopathy has mildly improved. In the absence of IV contrast the study is insensitive for evaluation of hilar adenopathy. The thoracic aorta is unremarkable. Cardiac size is mildly enlarged, unchanged. There is no pericardial effusion. The upper abdomen again demonstrates bariatric surgery but is otherwise unremarkable. Impression: Diffuse bilateral alveolar and interstitial infiltrates have mildly improved. The mediastinal adenopathy demonstrates minimal improvement. The hilar adenopathy cannot be evaluated in the absence of IV contrast. Mild cardiomegaly without pericardial effusion, unchanged. There are no pleural effusions. This is unchanged. Electronically Signed by Minesh Garcia MD 10/24/2019 01:56 P
--- NOTE | 2019-10-24 17:47 | IPN ---
DATE: 10/23/2019 Patient continues to have hypoxia, saturation rate 88% on 5 liters with ambulation when he returns after walking around the room 1 or 2 minutes after he sits down. No chest pain, pressure, tightness, fever, chills, or cough. Patient's creatinine is at 1.6 this morning. He is diuresed 3.6 liters, -2.3 liters yesterday. No complaints of bright red blood per rectum, melena, black tarry stools. Patient is ambulating well. Denies any weakness. Temperature 96.6, pulse 70, respiratory rate 20, blood pressure 118/66, 95% on 5 liters of oxygen. GENERALLY: Awake, alert, oriented times three. Mild jugular venous distention (JVD). No thyromegaly. LUNGS: Diminished bibasilar crackles. HEART: S1, S2, irregularly irregular. ABDOMEN: Obese, soft, nontender. EXTREMITIES: Trace edema. Chronic venous stasis changes. LABORATORY DATA: White count 19, hemoglobin 14, hematocrit 47, platelet count 427. Sodium 138, potassium 3.4, bicarbonate 35, chloride 95, BUN 60, creatinine 1.63, glucose 103. Repeat chest x-ray: Bilateral infiltrates, pulmonary fibrosis, superimposed patchy infiltrates or alveolar edema, improved. No effusion. ASSESSMENT AND PLAN: This is a 64-year-old male with acute on chronic hypoxic respiratory failure now requiring 5 liters of oxygen, most likely related to decompensated congestive heart failure but possible interstitial lung disease, most likely due to amiodarone in the past. 1. Acute on chronic combined systolic and diastolic dysfunction, ejection fraction (EF) of 50% with moderate pulmonary hypertension. Per Dr. Mejía, patient most likely has cor pulmonale, right-sided heart failure due to severe pulmonary hypertension. Continue with Lasix diuresis. Intake and output has been net negative. Patient's weight has been decreasing. He is continued on fluid restriction. Due to acute kidney injury, 1.6 creatinine, and azotemia, patient's Lasix will be held today and rechecked later this afternoon. 2. Interstitial fibrosis. Workup per pulmonary, awaiting results. 3. Acute kidney injury due to Lasix. Will hold off on further Lasix today. 4. Hypokalemia, supplemented. 5. Morbid obesity. Body mass index (BMI) of 48, complicating his care. 6. Obstructive sleep apnea. Compliant with continuous positive airway pressure (CPAP). 7. Severe pulmonary hypertension. Per Dr. Mejía. Complicating his care and contributing to his chronic hypoxia. [facility]
[2019-10-24 18:00] VITALS: BP 111/64
--- NOTE | 2019-10-24 19:27 | CCN ---
DATE: 10/23/2019 The patient is seen on the general medical floor. This is hospital day #6. He rested poorly in the night as he was moved from progressive care unit. His oxygen need has declined. His temperature is 96.6, pulse rate 72, respirations 20, blood pressure 103/57. His oxygen saturation is now 90% on 1 liter of oxygen via nasal cannula. Intake and output for the past 24 hours: 790 in, 3165 out, since midnight 300 in and 650 out. He is not in acute distress. His oral mucosa is pink. Neck is supple, das. I am unable to appreciate jugular veins. His heart sounds are irregularly irregular. Breath sounds are diminished with crepitant rales on deep inspiration bilaterally. Abdomen is soft and obese. Extremities continue to show edema. DIAGNOSTIC STUDIES: His sodium is 138, potassium 3.4, chloride 95, CO2 35, creatinine 60, glucose is 103, creatinine is 1.63, white cell count is down to 19, hemoglobin 14.3, hematocrit 47.9, platelet count 426,000. Serology for multiple possible causes of interstitial lung disease is pending. REVIEW OF MEDICATIONS: He is receiving Pradaxa, digoxin, Neurontin, Synthroid, Lopressor, Proscar, potassium and Xopenex. IMPRESSION AND PLAN: 1. Hypoxemia. Oxygen requirement is better. Significant component would appear to be related to pulmonary edema and he is responding to diuretic therapy. I would recommend continuing diuretic therapy as he is able to tolerate it to dry weight. 2. Interstitial lung disease. This was felt to be initially related to amiodarone toxicity. He did respond to steroid therapy at that time. Other etiologies are possible and serology has been sent to investigate them. He will require repeat CT imaging at some point. I would propose that we attempt to optimize his respiratory condition before he is discharged so that he does not require rehospitalization.
[2019-10-24] MEDS: ROSUVASTATIN 10 MG TAB (CRESTOR) PO SCH (21:35)
[2019-10-24] MEDS: LORATADINE 10 MG TAB PO SCH (21:35)
[2019-10-24] MEDS: ASPIRIN 81 MG ENTERIC TAB PO SCH (21:35)
[2019-10-24] MEDS: PANTOPRAZOLE 40MG TAB (PROTONIX) PO SCH (21:35)
[2019-10-24] MEDS: POTASSIUM CHLORIDE 10 MEQ SR TABLET PO SCH (21:35)
[2019-10-24 22:00] VITALS: BP 111/60
[2019-10-25 02:00] VITALS: BP 109/59
[2019-10-25] MEDS: LEVOTHYROXINE 100MCG TABLET (0.1MG) PO SCH (05:50)
[2019-10-25] MEDS: SLF 3 ML SYR IV SCH (05:51)
[2019-10-25] MEDS: LEVOTHYROXINE 50MCG TABLET (0.05MG) PO SCH (05:51)
[2019-10-25 06:00] VITALS: BP 116/65
[2019-10-25 06:27] LABS: HEMATOCRIT 43.6 % (42.0-52.0); HEMOGLOBIN 13.8 g/dl (13.5-17.5); MEAN CORPUSCULAR HEMOGLOBIN 28.1 pg (27.0-33.0); MEAN CORPUSCULAR HGB CONC 31.7 g/dl (32.0-36.5); MEAN CORPUSCULAR VOLUME 88.8 fl (80.0-96.0); PLATELET COUNT, AUTOMATED 354 10^3/uL (150-450); RED BLOOD COUNT 4.91 10^6/uL (4.30-6.10); WHITE BLOOD COUNT 16.6 10^3/uL (4.0-10.0)
[2019-10-25 06:45] LABS: BLOOD UREA NITROGEN 38 MG/DL (7-18); CALCIUM LEVEL 8.7 MG/DL (8.8-10.2); CARBON DIOXIDE LEVEL 32 MEQ/L (21-32); CHLORIDE LEVEL 99 MEQ/L (98-107); CREATININE FOR GFR 1.24 MG/DL (0.70-1.30); GLOMERULAR FILTRATION RATE > 60.0 (>49); GLUCOSE, FASTING 109 MG/DL (70-100); MAGNESIUM LEVEL 2.4 MG/DL (1.8-2.4); POTASSIUM SERUM 3.6 MEQ/L (3.5-5.1); SODIUM LEVEL 139 MEQ/L (136-145)
[2019-10-25] MEDS ORDERED: metOLazone 5 MG TAB PO ONE (08:00)
[2019-10-25] MEDS: GABAPENTIN 300 MG CAP PO SCH (08:44)
[2019-10-25] MEDS: CYANOCOBALAMIN 500 MCG TAB PO SCH (08:44)
[2019-10-25] MEDS: TAMSULOSIN 0.4 MG CAP PO SCH (08:44)
[2019-10-25] MEDS: FINASTERIDE 5 MG TAB PO SCH (08:44)
[2019-10-25] MEDS: DABIGATRAN ETEXILATE 75 MG CAP (PRADAXA) PO SCH (08:44)
[2019-10-25] MEDS: DIGOXIN 0.125 MG TAB PO SCH (08:45)
[2019-10-25 08:47] VITALS: BP 112/64
[2019-10-25] MEDS: METOPROLOL TART 25 MG TABLET PO SCH (08:47)
[2019-10-25] MEDS ORDERED: BUMETANIDE 1 MG TAB PO SCH (09:00)
--- NOTE | 2019-10-25 10:02 | IPN ---
DATE: 10/24/2019 THe patient complains of five episodes of loose bowel movements yesterday. Says that he has not been urinating as much and it has been much darker urine. Afebrile. No chills. Little abdominal cramping that is diffuse. No nausea or vomiting. Tolerating his diet well. GI panel is still pending. Clostridium (C.) difficile PCR has been sent. Shortness of breath is the same. Repeat chest x-ray shows chronic pulmonary fibrosis, parenchymal edema cannot be excluded. PHYSICAL EXAMINATION: VITAL SIGNS: Temperature 97.6, pulse 70, respiratory rate 18, blood pressure 113/63, 95% on room air. GENERAL: The patient is awake, alert, oriented. Answering questions appropriately. No conversational dyspnea. Speaks in full sentences. Thick neck. No cervical lymphadenopathy or thyromegaly. LUNGS: Diminished. Bilateral fine crackles. HEART: S1, S2. Sinus rhythm. No murmurs, rubs or gallops. ABDOMEN: Obese, soft, nontender, nondistended. EXTREMITIES: Trace edema. Chronic venous stasis changes. Input and output: Input 1190, output 1440, negative 250. Current weight is 176.6 kg with admission weight of 185.8 kg. Sputum culture with yeast-like organism. IMAGING STUDIES: Reviewed. ASSESSMENT AND PLAN: This is a 64-year-old male with a history of amiodarone induced pulmonary toxicity, morbid obesity, Body Mass Index (BMI) 48.5, right sided heart failure, obstructive sleep apnea, compliant with his continuous positive airway pressure (CPAP), congestive heart failure (CHF), diastolic dysfunction, atrial fibrillation, coronary artery disease, AICD with biventricular pacer, ejection fraction of 50%, mild tricuspid regurgitation, who presents with worsening shortness of breath. The patient was initially treated for healthcare associated pneumonia with vancomycin and meropenem. Negative procalcitonin, as well as Solu-Medrol, which has all been discontinued. CURRENT ISSUES: 1. Acute diastolic heart failure, systolic heart failure, ejection fraction of 50%. Diuresis has been held due to acute kidney injury and diarrhea. The patient has had significant weight loss, 185.9 kg to 176.6 kg with no improvement in his hypoxia. 2. Acute hypoxic respiratory failure due to amiodarone induced toxicity, as well as congestive heart failure (CHF). He has chronic fibrosis on imaging studies. Defer to pulmonary for further differential diagnosis and other recommendations. 3. Morbid obesity. Body Mass Index (BMI) of 48.7, complicating his care. 4. Obstructive sleep apnea. On chronic CPAP. 5. Hypertension. Controlled. 6. Atrial fibrillation. On chronic Digoxin and metoprolol 75 mg twice a day and Pradaxa. 7. Hypothyroidism. On Synthroid. 8. Diarrhea. Check Clostridium (C.) difficile PCR. If negative, antimotility drugs to be given as needed. 9. Acute kidney injury due to overdiuresis and diarrhea. Await improvement before discharge. DISPOSITION: Defer to pulmonary regarding any other changes in treatment.
--- NOTE | 2019-10-25 15:38 | DS.PDOC ---
Discharge Summary General Date of Admission Oct 17, 2019 at 15:13 Date of Discharge 10/25/2019 Discharge Summary PROCEDURES PERFORMED DURING STAY: [None]. ADMITTING DIAGNOSES: 1. Acute on chronic hypoxic respiratory failure 2. COPD 3. Amiodarone-induced lung injury 4. Nwlxs-ux-cxedlok CHF with [id number] Cor Pulmonale 5. Chronic Atrial Fibrillation 6. BPH 7. Hypothyroidism DISCHARGE DIAGNOSES: 1. Acute diastolic heart failure, systolic heart failure, ejection fraction of 50%. 2. Acute hypoxic respiratory failure due to amiodarone induced toxicity 3. Morbid Obesity 4. LENA 5. Hypertension 6. Atrial Fibrillation 7. Hypothyroidism 8. CAMELIA COMPLICATIONS/CHIEF COMPLAINT: Acute And Chronic Respiratory Failure With Hypoxia. HISTORY OF PRESENT ILLNESS: "Mr. Catherine is a 64-year-old morbidly obese man who is status post gastric bypass in the past with a notable past medical histo ry for chronic right-sided heart failure with chronic cor pulmonale, coronary artery disease, status post coronary artery bypass graft (CABG) in the past, history of cardiac arrest secondary to third-degree AV block. He is status post automatic implantable cardioverter defibrillator (AICD)/pacemaker placement in the past. 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 Patient has had a rather lengthy 6 months. Starting in February, the patient had developed worsening shortness of breath. He was hospitalized at [facility] for approximately 8 days. Suspected that he likely had developed amiodarone-induced lung injury and was placed on oxygen therapy and also steroids. The patient's condition improved to the point where by April he could be off of his oxygen for most of the day. A repeat CAT scan at that time, from what he tells me, had showed improvement from the one obtained during his hospitalization. Around , the patient was re-hospitalized and was once again placed on prednisone 20 mg daily due to worsening shortness of breath. Following discharge, the patient improved clinically to the point where he was able to wean his continuous oxygen from 4 liters to 3 liters, and then he was even able to tolerate being off oxygen for about 1-1/2 hours. The patient follows with Dr. Buitrago of the pulmonary clinic and has been tapered off of his oxygen, starting September 28, 2019, he is no longer taking it. Around 09/29/2019 or 09/30/2019, the patient started developing upper respiratory cold symptoms. He saw his primary care provider (PCP) on 10/06/2019 who prescribed a 5-day course of Z-Matty, which he took. He felt a little bit better, but presented today with worsening shortness of breath, especially with exertion. He denies having any chest discomfort nor orthopnea, nor increased lower extremity swelling. He reports being compliant with all his cardiac medications and reports that he has been vigilant about maintaining a 1500 mL water restriction. He has experienced chills on and off over the last 1-2 weeks, but has no documented fevers at home. He did notice that with ambulation, his oxygen saturations (O2 sats) were dropping into the 50-60th percentile. Because of this, he sought medical attention. In the emergency room (ER) department, he underwent a chest x-ray, which shows progressive patchy infiltrates bilaterally, more pronounced than previously. The ER physician did discuss the case with the lean manufacturing leader stone sandblaster for [facility] who recommended he be transferred to [place] for an open lung biopsy, but the patient declined at this time and would prefer to see if he can get better over the next 24-48 hours as there is suspicion that this could be due to fluid on the lean manufacturing leader's conclusion. Therefore, the patient is admitted to the hospitalist service. In the ER department, he received about 40 mg of intravenous Lasix and diuresed approximately between 500-800 mL from his estimate. He is currently saturating 88% on non-rebreather. He is not in any respiratory distress. His breathing is nonlabored. He is not exhibiting any wheezing. HOSPITAL COURSE: Pt was admitted as noted above. Initially he was being treated presumptively for HCAP with vancomycin, meropenem and Solu-medrol. All discontinued due to a negative procalcitonin. Diureses initially helpful, as pt hypoxia resolved, was later held due to CAMELIA. Pulmonology consulted and pt was assessed by Dr. Buitrago who will continue to follow him outpt to investigate and manage his ISL, no longer thought to be Amiodarone-related. Pt oxygen demand/requirements improved and he was discharged home. He currently has oxygen at home. DISCHARGE MEDICATIONS: Please see below. ALLERGIES: Please see below. PHYSICAL EXAMINATION ON DISCHARGE: VITAL SIGNS: Please see below. General Exam: Positive: Alert, No Acute Distress Eye Exam: Positive: Conjunctiva & lids normal, EOMI; Negative: Sclera icteric ENT Exam: Positive: Atraumatic, Mucous membr. moist/pink, Pharynx Normal Neck Exam: Positive: Supple; Negative: thyromegaly Chest Exam: Positive: Clear to auscultation, Normal air movement Heart Exam: Positive: Rate Normal, Regular Rhythm, Distant heart sounds Telemetry: Positive: No significant arrhythmia Abdomen Exam: Positive: Normal bowel sounds, Soft; Extremity Exam: Positive: Chronic PVD changes, mild edema Negative: Clubbing, Cyanosis Skin Exam: Positive: Nl turgor and temperature; Neuro Exam: Positive: Normal Speech Psych Exam: Positive: Mental status NL, Mood NL, Oriented x 3 LABORATORY DATA: Please see below. IMAGING: Chest, 1 view Impression: Progressive patchy infiltrates bilaterally more pronounced than previously. Cardiomegaly with pacemaker. Prior sternotomy. CT ANGIO CHEST Impression: Worsening diffuse bilateral interstitial and alveolar infiltrates. No pleural effusions. Mediastinal and bilateral hilar adenopathy , unchanged. Bariatric surgery, unchanged. PORTABLE CHEST X-RAY Impression: The bilateral infiltrates have mildly improved. Chest, 2 view PA, Lat Impression: Worsening bibasilar densities as described. Chest, 2 view PA, Lat Impression: 1. Prior sternotomy and a multilead pacer over the chest are stable. 2. Cardiomegaly with left and right heart enlargement and some chronic diffuse interstitial changes suggesting fibrosis. Superimposed on this are patchy infiltrates or alveolar edema. This is improved radiographically compared to 10/20/2019. No effusion. CT Chest without contrast Impression: Diffuse bilateral alveolar and interstitial infiltrates have mildly improved. The mediastinal adenopathy demonstrates minimal improvement. The hilar adenopathy cannot be evaluated in the absence of IV contrast. Mild cardiomegaly without pericardial effusion, unchanged. There are no pleural effusions. This is unchanged. ACTIVITY: [As tolerated]. DIET: Regular diet DISCHARGE PLAN:Discharge home with follow-up with Dr. Mejía, Dr. Quijano, PCP within 1 week. 2L fluid restriction; call Dr. Mejía if you gain >2lbs Return to the ER if you experience any problems DISPOSITION: 01 Home, Self-Care. DISCHARGE INSTRUCTIONS: 1. see above ITEMS TO FOLLOWUP ON ON OUTPATIENT: 1. see above DISCHARGE CONDITION: [Stable]. TIME SPENT ON DISCHARGE: 33 minutes Vital Signs/I&Os Vital Signs Date Time Temp Pulse Resp B/P (MAP) Pulse Ox O2 Delivery O2 Flow Rate FiO2 10/25/19 09:00 3.0 10/25/19 08:47 71 112/64 10/25/19 06:00 97.3 19 98 NIPPV (BIPAP/CPAP) I&O- Last 24 Hours up to 6 AM 10/25/19 06:00 Intake Total 780 ml Output Total 245 ml Balance 535 ml Laboratory Data Labs 24H Laboratory Tests 2 10/25/19 05:22: Nucleated Red Blood Cells % (auto) 0.0, Anion Gap 8, Glomerular Filtration Rate > 60.0, Calcium Level 8.7L, Magnesium Level 2.4 CBC/BMP Laboratory Tests 10/25/19 05:22 Microbiology Microbiology 10/19/19 Gram Stain - Final, Complete 10/19/19 Sputum Culture - Final, Complete Yeast Like Organism 10/17/19 Blood Culture - Final, Complete NO GROWTH AFTER 5 DAYS 10/17/19 Respiratory Virus Panel (PCR) (SHAWNA) - Final, Complete 10/17/19 Blood Culture - Final, Complete NO GROWTH AFTER 5 DAYS Discharge Medications Scheduled Aspirin (Aspirin EC) 81 Mg Tabec, 81 MG PO QHS, (Reported) Calcium Citrate/Vitamin D3 (Calcium Citrate-Vit D3 Tablet) 1 Tab Tab, 2 TAB PO QPM, (Reported) AT 1700 Cholecalciferol (Vitamin D3) (Vitamin D3) 5,000 Unit Tab.rapdis, 5,000 UNIT PO QHS, (Reported) Cranberry Conc/Ascorbic Acid (Cranberry 12,600 mg Softgel) 1 Each Capsule, 25,200 MG PO DAILY, (Reported) Cyanocobalamin (Vitamin B-12) (Vitamin B-12) 500 Mcg Tab, 1,000 MCG PO DAILY, (Reported) Dabigatran Etexilate Mesylate (Pradaxa) 150 Mg Capsule, 150 MG PO BID, (Reported) Digoxin (Digoxin) 125 Mcg Tab, 125 MCG PO DAILY, (Reported) Docusate Sodium (Colace) 100 Mg Capsule, 100 MG PO QPM, (Reported) Ferrous Fumarate (Ferrous Fumarate) 324 Mg Tab, 324 MG PO QPM, (Reported) AT 1700 Finasteride (Finasteride) 5 Mg Tab, 5 MG PO DAILY, (Reported) Fish Oil/Dha/Epa (Fish Oil 1,200 mg Fish Oil) 1 Each Capsule, 1 CAP PO DAILY, (Reported) Fluticasone Propionate (Flonase Allergy Relief) 50 Mcg/Act Spr, 2 SPRAYS NARES QHS, (Reported) Furosemide (Furosemide) 40 Mg Tab, 40 MG PO DAILY, (Reported) Gabapentin (Gabapentin) 300 Mg Capsule, 300 MG PO TID, (Reported) Levothyroxine Sodium (Levothyroxine Sodium) 200 Mcg Tablet, 200 MCG PO DAILY, (Reported) TAKES WITH 50 MCG TAB TO EQUAL 250MCG Levothyroxine Sodium (Levothyroxine Sodium) 50 Mcg Tablet, 50 MCG PO DAILY, (Reported) TAKES WITH 200 MCG TO EQUAL 250 MCG Loratadine (Loratadine) 10 Mg Tab, 10 MG PO QHS, (Reported) Metoprolol Tartrate (Lopressor) 50 Mg Tab, 75 MG PO BID, (Reported) Multivitamins (Child Chew Vitamin) 1 Tab Chew, 2 TAB PO QPM, (Reported) AT 1700 Pantoprazole Sodium (Pantoprazole Sodium) 40 Mg Tab, 40 MG PO QPM, (Reported) AT 1700 Potassium Chloride (Klor-Con M10) 10 Meq Tabcr, 10 MEQ PO QPM, (Reported) AT 1700 Rosuvastatin Calcium (Crestor) 20 Mg Tab, 20 MG PO QHS, (Reported) Sacubitril/Valsartan (Entresto 24 mg-26 mg Tablet) 1 Each Tablet, 1 TAB PO BID, (Reported) Spironolactone (Spironolactone) 25 Mg Tablet, 12.5 MG PO DAILY, (Reported) Tamsulosin HCl (Flomax) 0.4 Mg Cap, 0.4 MG PO DAILY, (Reported) Scheduled PRN Acetaminophen (Acetaminophen) 325 Mg Tablet, 650 MG PO Q6H PRN for PAIN / FEVER, (Reported) Clotrimazole/Betamethasone Dip (Clotrimazole-Betamethasone Lot) 1 Lot Lot, 1 DOSE TOP DAILY PRN for RASH, (Reported) APPLY TO GROIN Nitroglycerin (Nitrostat) 0.4 Mg Subl, 0.4 MG SL NITRO PRN for CHEST PAIN, (Reported) Allergies Coded Allergies: amiodarone (Verified Allergy, Severe, respiratory issues, 07/21/19) Attending Note Attending Note I have reviewed the documentation and assessed the patient independently. I have made necessary revisions as needed. I agree with the findings, assessment and plan stated above. - Time spent on discharge 35 minutes - Discussed with patient compliance with medications; will resume home dose diuretics - Advised outpatient follow up with PCP and Pulmonology within 7 days LAY KRAUS PA-C Oct 25, 2019 15:38 FRANCESCA LOPES MD Oct 25, 2019 16:38
== END 2019-10-25 12:13 | disposition home or self-care (01) | DRG 205 ==
LOC: M ED 10:32 → M ED INP 15:13 → ENRESERV 20:00 → M PCU 20:25 → M MSPAV 10-22 13:45
PROVIDERS: ADMIT Internal Medicine; ATTEND Internal Medicine
DX: J70.4 Drug-induced interstitial lung disorders, unspecified (principal); I50.43 Acute on chronic combined systolic (congestive) and diastolic (congestive) heart failure; J96.22 Acute and chronic respiratory failure with hypercapnia; I48.20 Chronic atrial fibrillation, unspecified; I44.2 Atrioventricular block, complete; Z68.43 Body mass index [BMI] 50.0-59.9, adult; N17.9 Acute kidney failure, unspecified; E03.9 Hypothyroidism, unspecified; E66.01 Morbid (severe) obesity due to excess calories; Z98.84 Bariatric surgery status; I25.10 Atherosclerotic heart disease of native coronary artery without angina pectoris; Z95.1 Presence of aortocoronary bypass graft; Z86.74 Personal history of sudden cardiac arrest; Z95.0 Presence of cardiac pacemaker; Z86.14 Personal history of Methicillin resistant Staphylococcus aureus infection; G47.33 Obstructive sleep apnea (adult) (pediatric); Z88.8 Allergy status to other drugs, medicaments and biological substances; Z79.82 Long term (current) use of aspirin; Z79.01 Long term (current) use of anticoagulants; Z79.899 Other long term (current) drug therapy; Z99.81 Dependence on supplemental oxygen; R73.03 Prediabetes; N40.0 Benign prostatic hyperplasia without lower urinary tract symptoms; G62.9 Polyneuropathy, unspecified; I50.812 Chronic right heart failure; T46.2X5A Adverse effect of other antidysrhythmic drugs, initial encounter; I27.29 Other secondary pulmonary hypertension; I11.0 Hypertensive heart disease with heart failure; E53.8 Deficiency of other specified B group vitamins

== ENCOUNTER 2019-10-27 14:38 | Inpatient (IN) | payer MEDICARE, BC, OTHER ==
[2019-10-27] VITALS (26 sets, daily range): BP systolic 80–123; BP diastolic 43–64
[~2019-10-27] VITALS: Ht 190.5 cm; Wt 190.9 kg
[~2019-10-27 14:38] MED LIST changes: +ACET-908 PO; +VITA500079 PO
[2019-10-27] MEDS ORDERED: COSYNTROPIN 0.25 MG/ML VIAL (J0834 PER 0.25MG) IV ONE (18:00)
--- NOTE | 2019-10-27 18:08 | IPNPDOC ---
Text Note Date of Service The patient was seen on 10/27/19. NOTE H + P dictated # [id number]. Impression: - Hypotension likely due to meds and intravascular dehydration, r/o adrenal insufficiency - Chronic systolic CHF - Chronic COPD with chronic hypoxic respiratory failure - LENA - Chronic atrial fib Plan: - Admit to ICU inpatient status - wean dopamine gtt off - titrate to keep SBP > 100 mm Hg - Cosyntropn test - hold all anti-hypertensives and diuretics - CPAP qhs VS,Fishbone, I+O VS, Fishbone, I+O Vital Signs Date Time Temp Pulse Resp B/P (MAP) Pulse Ox O2 Delivery O2 Flow Rate FiO2 10/27/19 17:23 77 17 95/45 (62) 93 Nasal Cannula 4.0 10/27/19 16:57 98.7 RAMIRO NORIEGA MD Oct 27, 2019 18:08
[2019-10-27] MEDS: DOPamine HCL 400 MG in IV 1 EA IV SCH (18:26)
--- NOTE | 2019-10-27 19:08 | HPE ---
DATE OF ADMISSION: 10/27/2019 at approximately 04:30 p.m. CHIEF COMPLAINT: Hypotension. HISTORY OF PRESENT ILLNESS: Mr. Catherine is a 64-year-old morbidly obese gentleman who was just discharged from this institution on 10/25/2019 for treatment of acute on chronic systolic and diastolic congestive heart failure with acute on chronic cor pulmonale. He had followed up with his genetic technologist, Dr. Mejía, yesterday and was given the green light to proceed with cataract surgery. He had presented to [facility] for cataract removal. However, the patient was noted to have a blood pressure of 75/40 during his preoperative evaluation. His surgery was subsequently cancelled. He was transferred to the emergency room (ER) department whereby he was evaluated. He was found to have a white count of 16.9 there and they gave him IV Rocephin. However, review of his records from this hospital indicates that his white count had been high due to steroid therapy during hospitalization and it is not significantly higher than what it was here. His hemoglobin levels were found to be stable at 12. He is on Pradaxa. He was seen by the physician at that institution who recommended transferring him here. He was started on a dopamine drip. He is currently on 3 mcg. His blood pressures are in the excess of 107/65. He reports that he did not experience any symptoms of dizziness or lightheadedness when his blood pressure was low. He reports that he has taken his blood pressure medications as well as diuretics all this morning prior to going to his surgery. Metabolic panel done at [facility] showed he had a blood urea nitrogen (BUN) of 46 which is slightly higher than what it had been here which had been 38. On examination, the patient appears to be clinically dehydrated. He has no evidence of any extremity edema whatsoever with significant wrinkling and tenting of his skin. His creatinine was found to be 1.5 which is slightly elevated from what it was here at 1.24. His preliminary troponin was negative. Chest x-ray was just showing bilateral infiltrates which are slow to clear from his interstitial lung disease. His EKG showed a ventricular paced rhythm. He denied having any chest discomfort. He has not experienced any syncopal events. He was transferred here without incident and is doing quite well. ALLERGIES: AMIODARONE, which is presumed to have caused amiodarone-induced lung disease. MEDICATIONS: His current home medications are the following multivitamin capsule, metoprolol, loratadine, Synthroid, gabapentin, furosemide, Flonase, fish oil, finasteride, Colace, ferrous fumarate, digoxin, Pradaxa, B12, cranberry, cholecalciferol, baby aspirin, nitroglycerin, Protonix, potassium, Crestor, Entresto, aldactone, Flomax. PAST MEDICAL HISTORY: Notable for: 1. Obstructive sleep apnea, for which he uses continuous positive airway pressure (CPAP). 2. He has history of interstitial lung disease, presumed to be secondary to amiodarone but now I believe that his manager technical training is questioning whether that is the case. 3. He has a history of chronic respiratory failure, on three liters of oxygen secondary to chronic obstructive pulmonary disease (COPD). 4. He has history of right-sided heart failure with chronic cor pulmonale. 5. He has history of coronary artery bypass graft (CABG). 6. He has history of cardiac arrest, secondary to third-degree atrioventricular (AV) block. 7. He is status post pacemaker placement. 8. He has history of prediabetes. 9. Hypothyroidism. 10. Left toe osteomyelitis with methicillin-resistant Staphylococcus aureus (MRSA). 11. History of chronic atrial fibrillation, for which he is currently anticoagulated with Pradaxa. 12. Benign prostatic hypertrophy (BPH). 13. Neuropathy. PAST SURGICAL HISTORY: Pertinent for gastric bypass, right ankle surgery, automatic implantable cardioverter defibrillator (AICD) pacemaker placement as well as coronary artery bypass graft (CABG). 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 He resides at home with his ex-. He does not use tobacco. He occasionally drinks alcohol. He is a FULL CODE. Surrogate decision maker is Katheryn Catherine. FAMILY HISTORY: Positive for diabetes and coronary artery disease. REVIEW OF SYSTEMS: 12 systems were reviewed with the patient, otherwise negative except as mentioned in the history of the present illness (HPI). PHYSICAL EXAMINATION: On examination today, the patient's temperature is 98.7, pulse is 69 and ventricular paced, respiratory rate is 17, blood pressure is 107/54, oxygen saturation is 97% on four liters nasal cannula. In general, the patient is resting comfortably in bed. He does not appear to be acutely ill. His speech is fluent. He is moving all four extremities in a coordinated and purposeful manner. His head is atraumatic. His pupils are symmetric and reactive to light. Oropharynx is clear. Oral mucosa is dry. Neck is supple. No visible jugular venous distention. No neck masses. Heart sounds are appreciated, S1, S2 with the ventricular paced rhythm. Lung sounds are appreciated bilaterally without any audible rales, wheezes or rhonchi. His abdomen is soft, nontender, protuberant with active bowel sounds. Extremities are without any significant cyanosis, clubbing or edema. On neurologic examination, cranial nerves II-XII are grossly intact without any focal neurologic deficits. LABORATORY DATA: Laboratories done over at [place] are the following: White count 16.9, hemoglobin 12, hematocrit 40, platelet count is 265. Sodium 138, potassium 3.5, chloride 96, bicarbonate is 27, BUN 46, creatinine is 1.5, digoxin is 1.1. Chest x-ray showed bilateral interstitial lung disease which is chronic. His troponin marker was negative. EKG showed a ventricular paced rhythm. IMPRESSION: 1. Hypotension. I suspect that this is likely secondary to overdiuresis from recent hospital stay causing intravascular dehydration with concomitant use of his antihypertensive medication as well as diuretic. The patient will be admitted as a direct admit to the intensive care unit (ICU). He will be maintained on a dopamine drip. He is currently needing only 3 mcg/kg per minute to maintain his systolic blood pressure in excess of 100. Our target goal will be to keep his systolic blood pressure above 100. We will hold all of his blood pressure medications tonight. I am concerned this could possibly reflect adrenal insufficiency as he has recently been treated with high amounts of steroids within the past several months. We will check a cosyntropin stimulation test. We will not give him any IV fluids at this time. We will recheck his basic metabolic panel (BMP) and complete blood count (CBC) in the morning. I have a low suspicion for a cardiac event and therefore I am not going to order a repeat troponin. 2. Obstructive sleep apnea. The patient will be placed on his continuous positive airway pressure (CPAP). 3. Chronic obstructive pulmonary disease (COPD). The patient will be maintained on his oxygen at 3-4 liters. 4. Chronic atrial fibrillation. We will hold his digoxin for today due to his slightly elevated renal function and see where it is tomorrow and decide if we can resume it. He will be continued on his Pradaxa. 5. Chronic systolic congestive heart failure. The patient at this point in time is compensated. He is likely on the dry side on physical examination as well as review of his basic metabolic panel. We will hold his diuretic, aldactone, as well as Entresto. 6. The patient will receive Pradaxa for deep vein thrombosis (DVT) prophylaxis. 7. He will be a FULL CODE. MTDD
[2019-10-27] MEDS: GABAPENTIN 300 MG CAP PO SCH (19:45)
[2019-10-27] MEDS: PANTOPRAZOLE 40MG TAB (PROTONIX) PO SCH (19:45)
[2019-10-27] MEDS: DABIGATRAN ETEXILATE 75 MG CAP (PRADAXA) PO SCH (19:45)
[2019-10-27] MEDS: ROSUVASTATIN 10 MG TAB (CRESTOR) PO SCH (19:45)
[2019-10-28] VITALS (38 sets, daily range): BP systolic 89–141; BP diastolic 46–77
[2019-10-28 04:31] LABS: HEMATOCRIT 40.2 % (42.0-52.0); HEMOGLOBIN 12.4 g/dl (13.5-17.5); MEAN CORPUSCULAR HEMOGLOBIN 27.4 pg (27.0-33.0); MEAN CORPUSCULAR HGB CONC 30.8 g/dl (32.0-36.5); MEAN CORPUSCULAR VOLUME 88.7 fl (80.0-96.0); PLATELET COUNT, AUTOMATED 244 10^3/uL (150-450); RED BLOOD COUNT 4.53 10^6/uL (4.30-6.10); WHITE BLOOD COUNT 13.4 10^3/uL (4.0-10.0)
[2019-10-28] MEDS: DOPamine HCL 400 MG in IV 1 EA IV SCH (04:33)
[2019-10-28] MEDS: LEVOTHYROXINE 50MCG TABLET (0.05MG) PO SCH (04:34)
[2019-10-28] MEDS: LEVOTHYROXINE 100MCG TABLET (0.1MG) PO SCH (04:34)
[2019-10-28 04:57] LABS: BLOOD UREA NITROGEN 41 MG/DL (7-18); CALCIUM LEVEL 8.1 MG/DL (8.8-10.2); CARBON DIOXIDE LEVEL 31 MEQ/L (21-32); CHLORIDE LEVEL 102 MEQ/L (98-107); CREATININE FOR GFR 1.24 MG/DL (0.70-1.30); GLOMERULAR FILTRATION RATE > 60.0 (>49); GLUCOSE, FASTING 134 MG/DL (70-100); POTASSIUM SERUM 3.7 MEQ/L (3.5-5.1); SODIUM LEVEL 139 MEQ/L (136-145)
[2019-10-28] MEDS ORDERED: DOPamine HCL 400 MG in IV 1 EA IV SCH (08:37)
[2019-10-28] MEDS: DABIGATRAN ETEXILATE 75 MG CAP (PRADAXA) PO SCH ×2 (09:30→20:05)
[2019-10-28] MEDS: GABAPENTIN 300 MG CAP PO SCH ×3 (09:30→20:05)
[2019-10-28] MEDS: ASPIRIN 81 MG ENTERIC TAB PO SCH (09:30)
--- NOTE | 2019-10-28 12:42 | IPNPDOC ---
Subjective Date Seen The patient was seen on 10/28/19. Subjective Chief Complaint/HPI Eliud is off dopamine gtt this morning. No complaints. Objective Physical Examination General Exam: Positive: Alert, No Acute Distress Eye Exam: Positive: EOMI; Negative: Sclera icteric ENT Exam: Positive: Atraumatic, Mucous membr. moist/pink, Pharynx Normal Neck Exam: Positive: Supple; Negative: JVD, thyromegaly Chest Exam: Positive: Clear to auscultation, Normal air movement Heart Exam: Positive: Rate Normal, Regular Rhythm, Normal S1, Normal S2, Murmurs Telemetry: Positive: Other Telemetry: (paced rhythm) Abdomen Exam: Positive: Normal bowel sounds, Soft; Negative: Tenderness, Hepatospenomegaly Male Exam: Positive: Normal Genital Exam Extremity Exam: Positive: Normal pulses; Negative: Clubbing, Cyanosis, Edema Skin Exam: Positive: Nl turgor and temperature; Negative: Rash, Breakdown Neuro Exam: Positive: Normal Speech Psych Exam: Positive: Mental status NL, Mood NL, Oriented x 3 Assessment /Plan Assessment # Hypotension - resolved, suspect due to adverse reactions of medications - discontinue dopamine, transfer to PCU - monitor BP off dopamine - resume home meds later tonight - D/w Dr. Adamson (on-call personnel training officer) - cosyntropn stim test normal response # Chronic atrial fib - continue pradaxa - holding digoxin + metoprolol # LENA - CPAP qhs # ILD - f/u with pulmonary on thursday # Chronic respiratory failure - continue home oxygen Dispo: Likely home in am Plan/VTE VTE Prophylaxis Ordered?: Yes (pradaxa) VS, I&O, 24H, [facility] Vital Signs/I&O Vital Signs Date Time Temp Pulse Resp B/P (MAP) Pulse Ox O2 Delivery O2 Flow Rate FiO2 10/28/19 12:00 4.0 10/28/19 11:00 69 124/71 (88) 96 10/28/19 07:07 97.2 10/28/19 06:10 NIPPV (BIPAP/CPAP) 10/28/19 04:01 18 I&O- Last 24 Hours up to 6 AM 10/28/19 06:00 Intake Total 1029 ml Output Total 900 ml Balance 129 ml Laboratory Data 24H LABS Laboratory Tests 2 10/27/19 19:52: Cortisol Baseline 25.1H 10/27/19 20:26: Cortisol Response to Stim 1/2 Hour 32.6 10/27/19 20:55: Cortisol Response to Stim 1 Hour 39.4 10/28/19 04:15: Nucleated Red Blood Cells % (auto) 0.0, Anion Gap 6L, Glomerular Filtration Rate > 60.0, Calcium Level 8.1L CBC/BMP Laboratory Tests 10/28/19 04:15 RAMIRO NORIEGA MD Oct 28, 2019 12:42
[2019-10-28] MEDS ORDERED: SLF 3 ML SYR IV PRN (17:15)
[2019-10-28] MEDS: PANTOPRAZOLE 40MG TAB (PROTONIX) PO SCH (20:06)
[2019-10-28] MEDS: ROSUVASTATIN 10 MG TAB (CRESTOR) PO SCH (20:06)
[2019-10-28] MEDS: SLF 3 ML SYR IV SCH (20:09)
[2019-10-28] MEDS: METOPROLOL TART 25 MG TABLET PO SCH (20:09)
[2019-10-28] MEDS: ENTRESTO 24-26MG TABLET (SACUBITRIL/VALSARTAN) PO SCH (23:16)
[2019-10-29] VITALS: BP 104/56
[2019-10-29 04:00] VITALS: BP 111/52
[2019-10-29] MEDS: LEVOTHYROXINE 100MCG TABLET (0.1MG) PO SCH (05:11)
[2019-10-29] MEDS: LEVOTHYROXINE 50MCG TABLET (0.05MG) PO SCH (05:11)
[2019-10-29] MEDS: SLF 3 ML SYR IV SCH (06:22)
[2019-10-29 08:00] VITALS: BP 126/74
[2019-10-29 08:28] VITALS: BP 126/74
[2019-10-29] MEDS: GABAPENTIN 300 MG CAP PO SCH (08:28)
[2019-10-29] MEDS: METOPROLOL TART 25 MG TABLET PO SCH (08:28)
[2019-10-29] MEDS: DABIGATRAN ETEXILATE 75 MG CAP (PRADAXA) PO SCH (08:30)
[2019-10-29] MEDS: ASPIRIN 81 MG ENTERIC TAB PO SCH (08:30)
[2019-10-29] MEDS: ENTRESTO 24-26MG TABLET (SACUBITRIL/VALSARTAN) PO SCH (08:30)
[2019-10-29] MEDS ORDERED: FUROSEMIDE 40 MG TAB PO SCH (09:00)
[2019-10-29] MEDS ORDERED: FINASTERIDE 5 MG TAB PO SCH (09:00)
[2019-10-29] MEDS ORDERED: SPIRONOLACTONE 12.5MG PER 1/2 TABLET PO SCH (09:00)
[2019-10-29] MEDS ORDERED: DIGOXIN 0.125 MG TAB PO SCH (09:00)
[2019-10-29] MEDS ORDERED: TAMSULOSIN 0.4 MG CAP PO SCH (09:00)
--- NOTE | 2019-10-29 09:23 | IPNPDOC ---
Subjective Date Seen The patient was seen on 10/29/19. Subjective Chief Complaint/HPI Feels fine, tolerating addition of metoprolol and entresto. No further drops in BP noted. Objective Physical Examination General Exam: Positive: Alert, No Acute Distress Eye Exam: Positive: EOMI; Negative: Sclera icteric ENT Exam: Positive: Atraumatic, Mucous membr. moist/pink, Pharynx Normal Neck Exam: Positive: Supple; Negative: JVD, thyromegaly Chest Exam: Positive: Clear to auscultation, Normal air movement Heart Exam: Positive: Rate Normal, Regular Rhythm, Normal S1, Normal S2, Murmurs Telemetry: Positive: Other Telemetry: (paced rhythm) Abdomen Exam: Positive: Normal bowel sounds, Soft; Negative: Tenderness, Hepatospenomegaly Male Exam: Positive: Normal Genital Exam Extremity Exam: Positive: Normal pulses; Negative: Clubbing, Cyanosis, Edema Skin Exam: Positive: Nl turgor and temperature; Negative: Rash, Breakdown Neuro Exam: Positive: Normal Speech Psych Exam: Positive: Mental status NL, Mood NL, Oriented x 3 Assessment /Plan Assessment # Hypotension - resolved, suspect due to adverse reactions of medications - home today - may resume current home meds w/o dosages changes - f/u with pcp in 1 week # Chronic atrial fib - continue pradaxa - holding digoxin + metoprolol # LENA - CPAP qhs # ILD - f/u with pulmonary on thursday # Chronic respiratory failure - continue home oxygen Dispo: home today Plan/VTE VTE Prophylaxis Ordered?: Yes (pradaxa) VS, I&O, 24H, Fishbone Vital Signs/I&O Vital Signs Date Time Temp Pulse Resp B/P (MAP) Pulse Ox O2 Delivery O2 Flow Rate FiO2 10/29/19 08:30 69 10/29/19 08:28 126/74 10/29/19 08:00 96.7 10 92 NIPPV (BIPAP/CPAP) 10/28/19 20:00 4.0 I&O- Last 24 Hours up to 6 AM 10/29/19 06:00 Intake Total 780 ml Output Total 370 ml Balance 410 ml RAMIRO NORIEGA MD Oct 29, 2019 09:23
--- NOTE | 2019-10-29 19:38 | DSES ---
DATE OF ADMISSION: 10/27/2019 DATE OF DISCHARGE: 10/29/2019 DISCHARGE DIAGNOSIS: Hypotension secondary to adverse reaction to his cardiac medications. CONSULTANTS ON THE CASE: None. PROCEDURES PERFORMED: None. DISPOSITION: Patient is discharged home in stable condition with improved blood pressure. DISCHARGE INSTRUCTIONS: Patient is instructed to followup with his primary care physician (PCP) within the next week. RELEVANT LABORATORIES DONE DURING THIS HOSPITALIZATION: White count 13.4, hemoglobin 12.4, hematocrit 40.2, platelet count 244. Sodium 139, potassium 3.7, chloride 102, bicarbonate 31, anion gap 6, BUN 41, creatinine 1.24. Cosyntropin stimulation test was normal. No imaging studies were performed at this hospital. DISCHARGE MEDICATIONS: Patient's home medications are unchanged from admission at the time of discharge. He will resume all his home medications as currently dosed. HOSPITAL COURSE: Mr. Catherine is a 64-year-old gentleman who had presented to [facility] for an elective cataract removal; however, while there patient was noted to be hypotensive. That morning patient had taken all his blood pressure medications and proceeded to the hospital for his procedure; however, he was noted to be quite hypotensive but otherwise asymptomatic. He was declined for surgery, and he was sent to the emergency room, where he remained hypotensive. He was placed on a dopamine drip, which improved his pressures. He was subsequently transferred to our hospital after workup there proved unremarkable. He was admitted to the intensive care unit (ICU) as a direct admit and transfer. Patient was only requiring 3 mcg of dopamine to maintain his pressure in excess of 100 mm of mercury. He was weaned off of the mercury the following day, and his medications were resumed. He tolerated these well over the next 24-48 hours, and he was subsequently discharged home today in stable condition. While here, he underwent a cosyntropin stimulation test, as he had been exposed to multiple steroids in the recent months with subsequent discontinuation; however, his cosyntropin stimulation test was found to be normal. A total of 30 minutes was sent completing all discharge paperwork.
== END 2019-10-29 12:12 | disposition home or self-care (01) | DRG 315 ==
LOC: M ICU 16:27 → M PCU 10-28 16:00
PROVIDERS: ADMIT Internal Medicine Nephrology; ATTEND Internal Medicine
DX: I95.9 Hypotension, unspecified (principal); Z68.43 Body mass index [BMI] 50.0-59.9, adult; J84.9 Interstitial pulmonary disease, unspecified; I44.2 Atrioventricular block, complete; M86.172 Other acute osteomyelitis, left ankle and foot; I50.22 Chronic systolic (congestive) heart failure; I48.20 Chronic atrial fibrillation, unspecified; J96.11 Chronic respiratory failure with hypoxia; E66.01 Morbid (severe) obesity due to excess calories; Z88.8 Allergy status to other drugs, medicaments and biological substances; Z79.82 Long term (current) use of aspirin; Z79.899 Other long term (current) drug therapy; G47.33 Obstructive sleep apnea (adult) (pediatric); J44.9 Chronic obstructive pulmonary disease, unspecified; Z99.81 Dependence on supplemental oxygen; I27.81 Cor pulmonale (chronic); Z95.1 Presence of aortocoronary bypass graft; Z95.0 Presence of cardiac pacemaker; R73.03 Prediabetes; E03.9 Hypothyroidism, unspecified; B95.62 Methicillin resistant Staphylococcus aureus infection as the cause of diseases classified elsewhere; Z79.01 Long term (current) use of anticoagulants; N40.0 Benign prostatic hyperplasia without lower urinary tract symptoms; G62.9 Polyneuropathy, unspecified; Z98.84 Bariatric surgery status; E86.0 Dehydration

== ENCOUNTER 2019-11-17 11:54 | Inpatient (IN) | payer MEDICARE, BC, OTHER ==
[~2019-11-17] VITALS: Ht 190.5 cm; Wt 177.1 kg
--- NOTE | 2019-11-17 12:44 | REP ---
Clinical: Cough and dyspnea. Comparison: 10/23/2019. Findings: Examination is limited by portable technique, underpenetration, and poor inspiratory effort. Cardiomegaly with diffuse increased interstitial markings and subtle lower lobe air space disease noted. Differential diagnosis includes pulmonary edema and/or multifocal pneumonia. Impression: Limited examination suggesting pulmonary edema and/or multifocal pneumonia. Electronically Signed by Fred Small MD 11/17/2019 12:35 P
[2019-11-17 13:08] LABS: BASO # 0.1 10^3/uL (0.0-0.2); BASO % 0.4 % (0.0-1.0); EOS # 0.5 10^3/uL (0.0-0.5); EOS % 4.5 % (0.0-3.0); HEMATOCRIT 38.1 % (42.0-52.0); LYMPH # 1.5 10^3/uL (1.5-5.0); LYMPH % 13.3 % (24.0-44.0); MEAN CORPUSCULAR HEMOGLOBIN 28.4 pg (27.0-33.0); MEAN CORPUSCULAR HGB CONC 31.5 g/dl (32.0-36.5); MEAN CORPUSCULAR VOLUME 90.1 fl (80.0-96.0); MONO # 1.1 10^3/uL (0.0-0.8); MONO % 9.4 % (0.0-5.0); NEUTROPHILS # 8.1 10^3/uL (1.5-8.5); NEUTROPHILS % 71.8 % (36.0-66.0); PLATELET COUNT, AUTOMATED 304 10^3/uL (150-450); RED BLOOD COUNT 4.23 10^6/uL (4.30-6.10); WHITE BLOOD COUNT 11.2 10^3/uL (4.0-10.0)
[2019-11-17 13:18] LABS: INR 1.3; PROTHROMBIN TIME 15.9 SECONDS (11.8-14.0)
[2019-11-17 13:37] LABS: ALBUMIN 2.8 GM/DL (3.2-5.2); ALT/SGPT 39 U/L (12-78); BILIRUBIN,DIRECT 0.3 MG/DL (0.0-0.2); BILIRUBIN,TOTAL 0.7 MG/DL (0.2-1.0); BLOOD UREA NITROGEN 22 MG/DL (7-18); CALCIUM LEVEL 8.6 MG/DL (8.8-10.2); CARBON DIOXIDE LEVEL 29 MEQ/L (21-32); CHLORIDE LEVEL 106 MEQ/L (98-107); CK-MB VALUE MASS 1.3 NG/ML (<3.6); CPK CREATINE PHOSPHOKINASE 29 U/L (39-308); CREATININE FOR GFR 0.92 MG/DL (0.70-1.30); GLOMERULAR FILTRATION RATE > 60.0 (>49); GLUCOSE, FASTING 124 MG/DL (70-100); MB/CK RELATIVE INDEX 4.48 (< OR =4); NT-PRO BNP 1460 PG/ML (<125); POTASSIUM SERUM 4.2 MEQ/L (3.5-5.1); SODIUM LEVEL 138 MEQ/L (136-145); THYROID STIMULATING HORMONE 0.421 uIU/ML (0.358-3.740); TROPONIN I < 0.02 NG/ML (< 0.10)
[2019-11-17 13:43] LABS: INFLUENZA A AMPLIFICATION NEGATIVE (NEGATIVE); INFLUENZA B AMPLIFICATION NEGATIVE (NEGATIVE)
[2019-11-17] MEDS ORDERED: ISOVUE-370 76% 100ML VIAL (Q9967) As Ordered ONE (14:06)
--- NOTE | 2019-11-17 14:47 | REP ---
Clinical: Acute chest pain and shortness of breath with hypoxia. Technique: Axial contrast enhanced images from the thoracic inlet to the upper abdomen using 75 ml Isovue 370 intravenous contrast material with coronal and sagittal re-formations. Findings: Satisfactory enhancement of the pulmonary vasculature is achieved and no filling defects are identified to suggest pulmonary embolus. Marked diffuse chronic interstitial changes are noted along with superimposed areas of ground-glass opacity and mediastinal/hilar adenopathy with lymph nodes measuring up to approximately 2.5 cm diameter. No effusion. No pneumothorax. Atherosclerotic changes to the thoracic aorta and coronary arteries noted with cardiomegaly. No pericardial effusion. Evidence of prior sternotomy and CABG. Pacemaker in satisfactory position. Osseous structures without acute abnormality. Contrast reflux into the hepatic veins is consistent with underlying cardiac disease. Impression: 1. No evidence for pulmonary embolus. 2. Adenopathy with diffuse air space disease. 3. Cardiomegaly with underlying acute/chronic interstitial edema. Electronically Signed by Fred Small MD 11/17/2019 02:38 P
[2019-11-17] MEDS ORDERED: FUROSEMIDE 40 MG/4 ML VIAL (J1940) IV ONE (15:00)
[2019-11-17] MEDS ORDERED: ACETAMINOPHEN TAB 650MG DOSE (2X325MG) PO PRN (17:30)
--- NOTE | 2019-11-17 17:48 | HPEPDOC ---
[facility] Medical History & Physical Date of Admission Nov 17, 2019 Date of Service: Nov 17, 2019 Attending Physician: DANNIELLE PRESLEY MD History and Physical CHIEF COMPLAINT: Shortness of breath & hypoxemia HISTORY OF PRESENT ILLNESS: 64-year-old male with past medical history of atrial fibrillation on Pradaxa, coronary artery disease status post stent placement and CABG, amiodarone-induced lung toxicity, cor pulmonale, systolic and diastolic congestive heart failure and hypothyroidism presents from home with shortness of breath and hypoxemia. Patient uses 3 L of oxygen by nasal cannula at home, reports progressively worsening shortness of breath with increasing oxygen requirements since his last hospitalization. Patient has slowly been titrating his oxygen up to a maximum of 5 L by nasal cannula, reports walking around the house today with his oxygen dropping down to the 50s. He was recently evaluated by his information technology coordinator done outpatient workup and advised him that his symptoms are due to underlying heart failure. Patient then went to his health and safety specialist who performed his workup and advised the patient that his issues are related to a pulmonary disease. Patient called his information technology coordinator today describing his symptoms and was advised to come to the hospital. Patient noted to be signifi cantly hypoxemic and dyspneic in the hospital. Patient denies any chest pain, nausea, vomiting, abdominal pain or diarrhea. 10 point review of system is negative except for above PAST MEDICAL HISTORY: 1. Atrial fibrillation fibrillation. 2. Congestive heart failure. 3. Cor pulmonale. 4. Amiodarone-induced lung toxicity. 5. Cornea artery disease. 6. Hypothyroidism. PAST SURGICAL HISTORY: 1. CABG. 2. Coronary artery stents. SOCIAL HISTORY: Previous smoker, quit many years ago, smoked 2 packs per day for over 30 years Denies alcohol use. Denies drug use FAMILY HISTORY: Mother had heart disease ALLERGIES: Please see below. HOME MEDICATIONS: Please see below. PHYSICAL EXAMINATION: VITAL SIGNS: Please see below. GENERAL: Morbidly obese HEENT: Normocephalic, atraumatic, moist mucous membranes NECK: Supple CARDIOVASCULAR EXAMINATION: S1, S2, no murmurs RESPIRATORY EXAMINATION: Bilateral rhonchi appreciated ABDOMINAL EXAMINATION: Soft, nontender, nondistended, positive bowel sounds EXTREMITIES: Trace lower extremity edema SKIN: Chronic venous stasis in the lower extremities NEUROLOGICAL EXAMINATION: Alert and oriented 3, no focal deficits PSYCHIATRIC EXAMINATION: Calm and cooperative LABORATORY DATA: See below. IMAGING: CTA without PE, but showing bilateral scattered opacities MICROBIOLOGY: Please see below. ASSESSMENT: 64-year-old male with multiple medical comorbidities, presents with worsening dyspnea and hypoxemia over the past month. PLAN: 1. Hypoxemia. Given clinical presentation and CT findings, I believe patient's symptoms are likely due to amiodarone-induced pulmonary toxicity. Patient has responded really well to steroids in the past, will trial IV steroids, supplemental oxygen as needed to maintain O2 sats between 80-92%, hold off on antibiotics for now, pro-calcitonin, respiratory viral panel and blood cultures ordered. Patient does not appear overtly volume overloaded compared to his baseline, will target gentle diuresis with Lasix 20 g IV twice a day. 2. Systolic and diastolic Congestive heart failure. Other than the change to Lasix listed above, continue optimal medical management with Entreso, spironolactone, digoxin and metoprolol. 3. Cor pulmonale. Management as above 4. Atrial fibrillation. Continue digoxin, metoprolol and Pradaxa 5. Coronary artery disease History of stents and CABG, continue optimal medical management with aspirin, statin and beta esau 6. Hypothyroidism. Continue levothyroxine DVT prophylaxis: on Pradaxa GI prophylaxis: Not needed Vital Signs Vital Signs Date Time Temp Pulse Resp B/P (MAP) Pulse Ox O2 Delivery O2 Flow Rate FiO2 11/17/19 14:30 69 22 109/55 (73) 91 Nasal Cannula 6.0 11/17/19 13:03 95 11/17/19 11:54 97.0 Laboratory Data Labs 24H Laboratory Tests 2 11/17/19 12:06: Prothrombin Time 15.9H, Prothromb Time International Ratio 1.30 11/17/19 12:43: Immature Granulocyte % (Auto) 0.6, Neutrophils (%) (Auto) 71.8H, Lymphocytes (%) (Auto) 13.3L, Monocytes (%) (Auto) 9.4H, Eosinophils (%) (Auto) 4.5H, Basophils (%) (Auto) 0.4, Neutrophils # (Auto) 8.1, Lymphocytes # (Auto) 1.5, Monocytes # (Auto) 1.1H, Eosinophils # (Auto) 0.5, Basophils # (Auto) 0.1, Nucleated Red Blood Cells % (auto) 0.0, Anion Gap 3L, Glomerular Filtration Rate > 60.0, Lactic Acid Level 2.0, Calcium Level 8.6L, Total Bilirubin 0.7, Direct Bilirubin 0.3H, Aspartate Amino Transf (AST/SGOT) 27, Alanine Aminotransferase (ALT/SGPT) 39, Alkaline Phosphatase 196H, Total Creatine Kinase 29L, Creatine Kinase MB 1.3, Creatine Kinase MB Relative Index 4.48H, Troponin I < 0.02, SO-Zlb-O-Type Natriuretic Peptide 1460H, Total Protein 7.0, Albumin 2.8L, Albumin/Globulin Ratio 0.67L, Thyroid Stimulating Hormone (TSH) 0.421, Influenza Type A (RT-PCR) NEGATIVE, Influenza Type B (RT-PCR) NEGATIVE 11/17/19 13:15: POC pH (Misc Panel) 7.442, POC Base Excess (Misc Panel) 3.0, POC Saturated Percent O2 (Misc) 93L, POC pO2 (Misc Panel) 64.0L, POC pCO2 (Misc Panel) 39.3, POC HCO3 (Misc Panel) 26.8H, POC Total CO2 (Misc Panel) 28.0H CBC/BMP Laboratory Tests 11/17/19 12:43 Microbiology Microbiology 11/17/19 Blood Culture, Received Pending 11/17/19 Blood Culture, Received Pending Home Medications Scheduled Aspirin (Aspirin EC) 81 Mg Tabec, 81 MG PO QHS Calcium Citrate/Vitamin D3 (Calcium Citrate-Vit D3 Tablet) 1 Tab Tab, 2 TAB PO QPM AT 1700 Cholecalciferol (Vitamin D3) (Vitamin D3) 5,000 Unit Tab.rapdis, 5,000 UNIT PO QHS Cranberry Conc/Ascorbic Acid (Cranberry 12,600 mg Softgel) 1 Each Capsule, 25,200 MG PO DAILY Cyanocobalamin (Vitamin B-12) (Vitamin B-12) 500 Mcg Tab, 1,000 MCG PO DAILY Dabigatran Etexilate Mesylate (Pradaxa) 150 Mg Capsule, 150 MG PO BID Digoxin (Digoxin) 125 Mcg Tab, 125 MCG PO DAILY Docusate Sodium (Colace) 100 Mg Capsule, 100 MG PO QHS Ferrous Fumarate (Ferrous Fumarate) 324 Mg Tab, 324 MG PO QPM AT 1700 Finasteride (Finasteride) 5 Mg Tab, 5 MG PO DAILY Fish Oil/Dha/Epa (Fish Oil 1,200 mg Fish Oil) 1 Each Capsule, 1 CAP PO DAILY Fluticasone Propionate (Flonase Allergy Relief) 50 Mcg/Act Spr, 2 SPRAYS NARES QHS Furosemide (Furosemide) 40 Mg Tab, 40 MG PO DAILY Levothyroxine Sodium (Levothyroxine Sodium) 200 Mcg Tablet, 200 MCG PO DAILY TAKES WITH 50 MCG TAB TO EQUAL 250MCG Levothyroxine Sodium (Levothyroxine Sodium) 50 Mcg Tablet, 50 MCG PO DAILY TAKES WITH 200 MCG TO EQUAL 250 MCG Loratadine (Loratadine) 10 Mg Tab, 10 MG PO QHS Metoprolol Tartrate (Lopressor) 50 Mg Tab, 75 MG PO BID Multivitamins (Child Chew Vitamin) 1 Tab Chew, 2 TAB PO QPM AT 1700 Pantoprazole Sodium (Pantoprazole Sodium) 40 Mg Tab, 40 MG PO QPM AT 1700 Potassium Chloride (Klor-Con M10) 10 Meq Tabcr, 10 MEQ PO QPM AT 1700 Rosuvastatin Calcium (Crestor) 20 Mg Tab, 20 MG PO QHS Sacubitril/Valsartan (Entresto 24 mg-26 mg Tablet) 1 Each Tablet, 1 TAB PO BID Spironolactone (Spironolactone) 25 Mg Tablet, 12.5 MG PO DAILY Tamsulosin HCl (Flomax) 0.4 Mg Cap, 0.4 MG PO DAILY Scheduled PRN Acetaminophen (Acetaminophen) 325 Mg Tablet, 650 MG PO Q6H PRN for PAIN / FEVER Nitroglycerin (Nitrostat) 0.4 Mg Subl, 0.4 MG SL NITRO PRN for CHEST PAIN Allergies Coded Allergies: amiodarone (Verified Allergy, Severe, respiratory issues, 11/17/19) A-FIB/CHADSVASC A-FIB History Current/History of A-Fib/PAF?: Yes Current PO Anticoag Therapy: Yes DANNIELLE PRESLEY MD Nov 17, 2019 17:47
[2019-11-17] MEDS: MULTIVITAMINS CHILDREN'S CHEWABLE TABLET PO SCH (18:00)
--- NOTE | 2019-11-17 18:48 | ECGEPIP ---
[facility] - ED Test Date: 2019-11-17 Pat Name: JANES CURIEL Department: Room: - Gender: Male Hog Operator: yesyedilma : 1955 Requested By: Juanis Blanco Order Number: [id number] Reading MD: Deniz Munoz Measurements Intervals [place] Rate: 72 P: LA: 0 QRS: -24 QRSD: 176 T: 26 QT: 429 QTc: 473 Interpretive Statements ELECTRONIC VENTRICULAR PACEMAKER RIGHT BUNDLE BRANCH BLOCK SIMILAR TO 10/17/19 Electronically Signed on 11-17-2019 18:48:05 EST by Deniz Munoz
[2019-11-17] MEDS: methylPREDNISolone INJ 40 MG/1 ML VIAL (J2920) IV SCH ×2 (18:58→23:55)
[2019-11-17] MEDS: PANTOPRAZOLE 40MG TAB (PROTONIX) PO SCH (18:59)
[2019-11-17] MEDS: POTASSIUM CHLORIDE 10 MEQ SR TABLET PO SCH (18:59)
[2019-11-17 22:00] VITALS: BP 110/64
[2019-11-17] MEDS: ASPIRIN 81 MG ENTERIC TAB PO SCH (22:14)
[2019-11-17] MEDS: ENTRESTO 24-26MG TABLET (SACUBITRIL/VALSARTAN) PO SCH (22:14)
[2019-11-17] MEDS: FLUTICASONE PROP 0.05% NASAL SPRAY 16 GM (FLONASE) NARES SCH (22:15)
[2019-11-17] MEDS: LORATADINE 10 MG TAB PO SCH (22:15)
[2019-11-17] MEDS: DOCUSATE SODIUM 100 MG CAP PO SCH (22:15)
[2019-11-17] MEDS: DABIGATRAN ETEXILATE 75 MG CAP (PRADAXA) PO SCH (22:15)
[2019-11-17] MEDS: ROSUVASTATIN 10 MG TAB (CRESTOR) PO SCH (22:18)
[2019-11-17] MEDS: METOPROLOL TART 25 MG TABLET PO SCH (22:18)
[2019-11-18] MEDS: LEVOTHYROXINE 100MCG TABLET (0.1MG) PO SCH (05:34)
[2019-11-18] MEDS: LEVOTHYROXINE 50MCG TABLET (0.05MG) PO SCH (05:34)
[2019-11-18] MEDS: methylPREDNISolone INJ 40 MG/1 ML VIAL (J2920) IV SCH ×3 (05:34→17:27)
[2019-11-18 06:00] VITALS: BP 117/48
[2019-11-18 07:26] LABS: HEMATOCRIT 38.4 % (42.0-52.0); HEMOGLOBIN 11.9 g/dl (13.5-17.5); MEAN CORPUSCULAR HEMOGLOBIN 27.5 pg (27.0-33.0); MEAN CORPUSCULAR VOLUME 88.9 fl (80.0-96.0); PLATELET COUNT, AUTOMATED 282 10^3/uL (150-450); RED BLOOD COUNT 4.32 10^6/uL (4.30-6.10); WHITE BLOOD COUNT 8.2 10^3/uL (4.0-10.0)
[2019-11-18 08:00] LABS: ALBUMIN 2.8 GM/DL (3.2-5.2); ALT/SGPT 31 U/L (12-78); BILIRUBIN,TOTAL 0.7 MG/DL (0.2-1.0); BLOOD UREA NITROGEN 23 MG/DL (7-18); CALCIUM LEVEL 8.7 MG/DL (8.8-10.2); CARBON DIOXIDE LEVEL 28 MEQ/L (21-32); CHLORIDE LEVEL 103 MEQ/L (98-107); CREATININE FOR GFR 0.88 MG/DL (0.70-1.30); GLOMERULAR FILTRATION RATE > 60.0 (>49); GLUCOSE, FASTING 152 MG/DL (70-100); MAGNESIUM LEVEL 2.4 MG/DL (1.8-2.4); POTASSIUM SERUM 4.3 MEQ/L (3.5-5.1); SODIUM LEVEL 136 MEQ/L (136-145); TOTAL PROTEIN 7.6 GM/DL (6.4-8.2)
[2019-11-18] MEDS: FUROSEMIDE 20 MG/2 ML VIAL (J1940) IV SCH ×2 (09:59→17:27)
[2019-11-18] MEDS: ENTRESTO 24-26MG TABLET (SACUBITRIL/VALSARTAN) PO SCH ×2 (09:59→20:38)
[2019-11-18] MEDS: FINASTERIDE 5 MG TAB PO SCH (09:59)
[2019-11-18 10:00] VITALS: BP 121/60
[2019-11-18] MEDS: DIGOXIN 0.125 MG TAB PO SCH (10:00)
[2019-11-18] MEDS: TAMSULOSIN 0.4 MG CAP PO SCH (10:00)
[2019-11-18] MEDS: DABIGATRAN ETEXILATE 75 MG CAP (PRADAXA) PO SCH ×2 (10:00→20:38)
[2019-11-18] MEDS: CYANOCOBALAMIN 500 MCG TAB PO SCH (10:00)
[2019-11-18] MEDS: METOPROLOL TART 25 MG TABLET PO SCH ×2 (10:03→20:37)
[2019-11-18] MEDS: SPIRONOLACTONE 12.5MG PER 1/2 TABLET PO SCH (10:05)
[2019-11-18] MEDS: CEFEPIME HCL 2 GM in D5W MINI-BAG PLUS 50 ML IV SCH (12:52)
[2019-11-18 14:00] VITALS: BP 121/61
[2019-11-18] MEDS: PANTOPRAZOLE 40MG TAB (PROTONIX) PO SCH (17:27)
[2019-11-18] MEDS: POTASSIUM CHLORIDE 10 MEQ SR TABLET PO SCH (17:27)
[2019-11-18] MEDS: MULTIVITAMINS CHILDREN'S CHEWABLE TABLET PO SCH (17:27)
[2019-11-18 18:00] VITALS: BP 122/62
[2019-11-18] MEDS: LORATADINE 10 MG TAB PO SCH (20:36)
[2019-11-18] MEDS: ROSUVASTATIN 10 MG TAB (CRESTOR) PO SCH (20:37)
[2019-11-18] MEDS: ASPIRIN 81 MG ENTERIC TAB PO SCH (20:38)
[2019-11-18] MEDS: DOCUSATE SODIUM 100 MG CAP PO SCH (20:38)
[2019-11-18] MEDS: FLUTICASONE PROP 0.05% NASAL SPRAY 16 GM (FLONASE) NARES SCH (20:39)
--- NOTE | 2019-11-18 21:08 | IPNPDOC ---
Date Seen The patient was seen on 11/18/19. Progress Note HISTORY OF PRESENT ILLNESS: 64-year-old male with past medical history of atrial fibrillation on Pradaxa, coronary artery disease status post stent placement and CABG, amiodarone-induced lung toxicity, cor pulmonale, systolic and diastolic congestive heart failure and hypothyroidism presents from home with shortness of breath and hypoxemia. Patient uses 3 L of oxygen by nasal cannula at home, reports progressively worsening shortness of breath with increasing oxygen requirements since his last hospitalization. Patient has slowly been titrating his oxygen up to a maximum of 5 L by nasal cannula, reports walking around the house today with his oxygen dropping down to the 50s. He was recently evaluated by his staff nurse anesthetist done outpatient workup and advised him that his symptoms are due to underlying heart failure. Patient then went to his tractor driver who performed his workup and advised the patient that his issues are related to a pulmonary disease. Patient called his staff nurse anesthetist today describing his symptoms and was advised to come to the hospital. Patient noted to be significa ntly hypoxemic and dyspneic in the hospital. Patient denies any chest pain, nausea, vomiting, abdominal pain or diarrhea. 11/18/19 Patient seen in the morning, resting comfortably on chair, currently on Venturi mask (50% FiO2), reports dyspnea with ambulation to the bathroom, overall respiratory status has improved from yesterday. He is currently sating in the high 90s, FiO2 can likely be titrated down. Patient without additional complaints. 10 point review of system is negative except for above PHYSICAL EXAMINATION: VITAL SIGNS: Please see below. GENERAL: Morbidly obese HEENT: Normocephalic, atraumatic, moist mucous membranes NECK: Supple CARDIOVASCULAR EXAMINATION: S1, S2, no murmurs RESPIRATORY EXAMINATION: Bilateral rhonchi appreciated ABDOMINAL EXAMINATION: Soft, nontender, nondistended, positive bowel sounds EXTREMITIES: Trace lower extremity edema SKIN: Chronic venous stasis in the lower extremities NEUROLOGICAL EXAMINATION: Alert and oriented 3, no focal deficits PSYCHIATRIC EXAMINATION: Calm and cooperative LABORATORY DATA: See below. IMAGING: CTA without PE, but showing bilateral scattered opacities MICROBIOLOGY: Please see below. ASSESSMENT: 64-year-old male with multiple medical comorbidities, presents with worsening dyspnea and hypoxemia over the past month. PLAN: 1. Hypoxemia. Given clinical presentation and CT findings, I believe patient's symptoms are likely due to amiodarone-induced pulmonary toxicity. Patient has responded really well to steroids in the past, continue IV steroids, supplemental oxygen as needed to maintain O2 sats between 80-92%, pro-calcitonin and blood cultures pending, empiric Cefepime. Patient does not appear overtly volume overloaded compared to his baseline, continue Lasix 20 g IV twice a day. 2. Systolic and diastolic Congestive heart failure. continue optimal medical management with Entreso, Lasix, spironolactone, digoxin and metoprolol. 3. Cor pulmonale. Management as above 4. Atrial fibrillation. Continue digoxin, metoprolol and Pradaxa 5. Coronary artery disease History of stents and CABG, continue optimal medical management with aspirin, statin and beta esau 6. Hypothyroidism. Continue levothyroxine DVT prophylaxis: on Pradaxa GI prophylaxis: Not needed VS, I&O, 24H, Fishbone Vital Signs/I&O Vital Signs Date Time Temp Pulse Resp B/P (MAP) Pulse Ox O2 Delivery O2 Flow Rate FiO2 11/18/19 20:37 71 122/59 11/18/19 18:00 98.0 19 97 Venturi Mask 15.0 11/17/19 19:46 50 I&O- Last 24 Hours up to 6 AM 11/18/19 06:00 Intake Total 300 ml Output Total 400 ml Balance -100 ml Laboratory Data 24H LABS Laboratory Tests 2 11/18/19 07:08: Nucleated Red Blood Cells % (auto) 0.0, Anion Gap 5L, Glomerular Filtration Rate > 60.0, Calcium Level 8.7L, Magnesium Level 2.4, Total Bilirubin 0.7, Aspartate Amino Transf (AST/SGOT) 23, Alanine Aminotransferase (ALT/SGPT) 31, Alkaline Phosphatase 179H, Total Protein 7.6, Albumin 2.8L, Albumin/Globulin Ratio 0.58L 11/18/19 13:25: Methicillin-Resist S.aureus DNA PCR NOT DETECTED CBC/BMP Laboratory Tests 11/18/19 07:08 Microbiology Microbiology 11/18/19 Respiratory Virus Panel (PCR) ([facility]WNA) - Final, Complete 11/17/19 Blood Culture - Preliminary, Resulted No growth after 24 hours . All specim... 11/17/19 Blood Culture - Preliminary, Resulted No growth after 24 hours . All specim... DANNIELLE PRESLEY MD Nov 18, 2019 21:08
[2019-11-18 22:00] VITALS: BP 122/59
[2019-11-19] MEDS: methylPREDNISolone INJ 40 MG/1 ML VIAL (J2920) IV SCH ×5 (00:31→23:03)
[2019-11-19] MEDS: CEFEPIME HCL 2 GM in D5W MINI-BAG PLUS 50 ML IV SCH ×2 (00:31→12:50)
[2019-11-19] MEDS: LEVOTHYROXINE 100MCG TABLET (0.1MG) PO SCH (05:40)
[2019-11-19] MEDS: LEVOTHYROXINE 50MCG TABLET (0.05MG) PO SCH (05:40)
[2019-11-19 06:00] VITALS: BP 146/79
[2019-11-19 06:16] LABS: HEMATOCRIT 40.1 % (42.0-52.0); HEMOGLOBIN 12.5 g/dl (13.5-17.5); MEAN CORPUSCULAR HGB CONC 31.2 g/dl (32.0-36.5); MEAN CORPUSCULAR VOLUME 89.7 fl (80.0-96.0); PLATELET COUNT, AUTOMATED 370 10^3/uL (150-450); RED BLOOD COUNT 4.47 10^6/uL (4.30-6.10); WHITE BLOOD COUNT 19.8 10^3/uL (4.0-10.0)
[2019-11-19 06:37] LABS: BLOOD UREA NITROGEN 32 MG/DL (7-18); CALCIUM LEVEL 9.1 MG/DL (8.8-10.2); CARBON DIOXIDE LEVEL 28 MEQ/L (21-32); CHLORIDE LEVEL 105 MEQ/L (98-107); CREATININE FOR GFR 0.98 MG/DL (0.70-1.30); GLOMERULAR FILTRATION RATE > 60.0 (>49); GLUCOSE, FASTING 168 MG/DL (70-100); POTASSIUM SERUM 4.2 MEQ/L (3.5-5.1); SODIUM LEVEL 137 MEQ/L (136-145)
[2019-11-19] MEDS: FUROSEMIDE 20 MG/2 ML VIAL (J1940) IV SCH ×2 (09:13→17:38)
[2019-11-19] MEDS: ENTRESTO 24-26MG TABLET (SACUBITRIL/VALSARTAN) PO SCH ×2 (09:13→21:31)
[2019-11-19] MEDS: DABIGATRAN ETEXILATE 75 MG CAP (PRADAXA) PO SCH ×2 (09:14→21:31)
[2019-11-19] MEDS: FINASTERIDE 5 MG TAB PO SCH (09:14)
[2019-11-19] MEDS: DIGOXIN 0.125 MG TAB PO SCH (09:15)
[2019-11-19] MEDS: TAMSULOSIN 0.4 MG CAP PO SCH (09:15)
[2019-11-19] MEDS: CYANOCOBALAMIN 500 MCG TAB PO SCH (09:16)
[2019-11-19] MEDS: METOPROLOL TART 25 MG TABLET PO SCH ×2 (09:16→21:31)
[2019-11-19] MEDS: SPIRONOLACTONE 12.5MG PER 1/2 TABLET PO SCH (09:36)
[2019-11-19 14:00] VITALS: BP 137/66
[2019-11-19] MEDS: POTASSIUM CHLORIDE 10 MEQ SR TABLET PO SCH (17:38)
[2019-11-19] MEDS: MULTIVITAMINS CHILDREN'S CHEWABLE TABLET PO SCH (17:38)
[2019-11-19] MEDS: PANTOPRAZOLE 40MG TAB (PROTONIX) PO SCH (17:38)
[2019-11-19] MEDS: DOCUSATE SODIUM 100 MG CAP PO SCH (21:00)
[2019-11-19] MEDS: ROSUVASTATIN 10 MG TAB (CRESTOR) PO SCH (21:29)
[2019-11-19] MEDS: FLUTICASONE PROP 0.05% NASAL SPRAY 16 GM (FLONASE) NARES SCH (21:29)
[2019-11-19] MEDS: LORATADINE 10 MG TAB PO SCH (21:30)
[2019-11-19] MEDS: ASPIRIN 81 MG ENTERIC TAB PO SCH (21:30)
[2019-11-19 22:00] VITALS: BP 117/66
--- NOTE | 2019-11-19 22:20 | IPNPDOC ---
Date Seen The patient was seen on 11/19/19. Progress Note HISTORY OF PRESENT ILLNESS: 64-year-old male with past medical history of atrial fibrillation on Pradaxa, coronary artery disease status post stent placement and CABG, amiodarone-induced lung toxicity, cor pulmonale, systolic and diastolic congestive heart failure and hypothyroidism presents from home with shortness of breath and hypoxemia. Patient uses 3 L of oxygen by nasal cannula at home, reports progressively worsening shortness of breath with increasing oxygen requirements since his last hospitalization. Patient has slowly been titrating his oxygen up to a maximum of 5 L by nasal cannula, reports walking around the house today with his oxygen dropping down to the 50s. He was recently evaluated by his bowl sander done outpatient workup and advised him that his symptoms are due to underlying heart failure. Patient then went to his line patrolman who performed his workup and advised the patient that his issues are related to a pulmonary disease. Patient called his bowl sander today describing his symptoms and was advised to come to the hospital. Patient noted to be significa ntly hypoxemic and dyspneic in the hospital. Patient denies any chest pain, nausea, vomiting, abdominal pain or diarrhea. 11/18/19 Patient seen in the morning, resting comfortably on chair, currently on Venturi mask (50% FiO2), reports dyspnea with ambulation to the bathroom, overall respiratory status has improved from yesterday. He is currently sating in the high 90s, FiO2 can likely be titrated down. Patient without additional complaints. 11/19/19 Having significant clinical improvement w/ steroids, FiO2 titrated down to patient's baseline of 3L via NC; dyspnea significantly improved, working w/ PT, physical activity is not at baseline yet. 10 point review of system is negative except for above PHYSICAL EXAMINATION: VITAL SIGNS: Please see below. GENERAL: Morbidly obese HEENT: Normocephalic, atraumatic, moist mucous membranes NECK: Supple CARDIOVASCULAR EXAMINATION: S1, S2, no murmurs RESPIRATORY EXAMINATION: Bilateral rhonchi ABDOMINAL EXAMINATION: Soft, nontender, nondistended, positive bowel sounds EXTREMITIES: Trace lower extremity edema SKIN: Chronic venous stasis in the lower extremities NEUROLOGICAL EXAMINATION: Alert and oriented 3, no focal deficits PSYCHIATRIC EXAMINATION: Calm and cooperative LABORATORY DATA: See below. IMAGING: CTA without PE, but showing bilateral scattered opacities MICROBIOLOGY: Please see below. ASSESSMENT: 64-year-old male with multiple medical comorbidities, presents with worsening dyspnea and hypoxemia over the past month. PLAN: 1. Hypoxemia. Given clinical presentation and CT findings, I believe patient's symptoms are likely due to amiodarone-induced pulmonary toxicity. Significant improvement with IV steroids, continue current dose, supplemental oxygen as needed to maintain O2 sats between 80-92%, pro-calcitonin and blood cultures negative, Cefepime discontinued. 2. Systolic and diastolic Congestive heart failure. continue optimal medical management with Entreso, Lasix, spironolactone, digoxin and metoprolol. 3. Cor pulmonale. continue diuresis, at baseline. 4. Atrial fibrillation. Continue digoxin, metoprolol and Pradaxa 5. Coronary artery disease History of stents and CABG, continue optimal medical management with aspirin, statin and beta esau 6. Hypothyroidism. Continue levothyroxine DVT prophylaxis: on Pradaxa GI prophylaxis: Not needed VS, I&O, 24H, Fishbone Vital Signs/I&O Vital Signs Date Time Temp Pulse Resp B/P (MAP) Pulse Ox O2 Delivery O2 Flow Rate FiO2 11/19/19 21:31 84 117/66 11/19/19 14:00 98.7 20 97 Room Air 11/19/19 09:00 3.0 11/17/19 19:46 50 I&O- Last 24 Hours up to 6 AM 11/19/19 06:00 Intake Total 1550 ml Output Total 1125 ml Balance 425 ml Laboratory Data 24H LABS Laboratory Tests 2 11/19/19 05:57: Nucleated Red Blood Cells % (auto) 0.0, Anion Gap 4L, Glomerular Filtration Rate > 60.0, Calcium Level 9.1 CBC/BMP Laboratory Tests 11/19/19 05:57 Microbiology Microbiology 11/18/19 Respiratory Virus Panel (PCR) (SHAWNA) - Final, Complete 11/17/19 Blood Culture - Preliminary, Resulted No Growth after 48 hours. All Specime... 11/17/19 Blood Culture - Preliminary, Resulted No Growth after 48 hours. All Specime... DANNIELLE PRESLEY MD Nov 19, 2019 22:20
[2019-11-19] MEDS ORDERED: CEFEPIME HCL 2 GM in D5W MINI-BAG PLUS 50 ML IV SCH (23:00)
[2019-11-20] MEDS: LEVOTHYROXINE 50MCG TABLET (0.05MG) PO SCH (05:54)
[2019-11-20] MEDS: methylPREDNISolone INJ 40 MG/1 ML VIAL (J2920) IV SCH ×2 (05:54→22:01)
[2019-11-20] MEDS: LEVOTHYROXINE 100MCG TABLET (0.1MG) PO SCH (05:54)
[2019-11-20 06:00] VITALS: BP 142/83
[2019-11-20 06:58] LABS: HEMATOCRIT 40.4 % (42.0-52.0); HEMOGLOBIN 12.5 g/dl (13.5-17.5); MEAN CORPUSCULAR HEMOGLOBIN 27.8 pg (27.0-33.0); MEAN CORPUSCULAR HGB CONC 30.9 g/dl (32.0-36.5); PLATELET COUNT, AUTOMATED 335 10^3/uL (150-450); RED BLOOD COUNT 4.49 10^6/uL (4.30-6.10); WHITE BLOOD COUNT 16.7 10^3/uL (4.0-10.0)
[2019-11-20 07:28] LABS: BLOOD UREA NITROGEN 37 MG/DL (7-18); CALCIUM LEVEL 8.4 MG/DL (8.8-10.2); CARBON DIOXIDE LEVEL 30 MEQ/L (21-32); CHLORIDE LEVEL 105 MEQ/L (98-107); CREATININE FOR GFR 1.06 MG/DL (0.70-1.30); GLOMERULAR FILTRATION RATE > 60.0 (>49); GLUCOSE, FASTING 164 MG/DL (70-100); MAGNESIUM LEVEL 2.6 MG/DL (1.8-2.4); PHOSPHORUS LEVEL 3.4 MG/DL (2.5-4.9); POTASSIUM SERUM 4.2 MEQ/L (3.5-5.1); SODIUM LEVEL 139 MEQ/L (136-145)
[2019-11-20] MEDS: DABIGATRAN ETEXILATE 75 MG CAP (PRADAXA) PO SCH ×2 (08:06→22:00)
[2019-11-20] MEDS: FINASTERIDE 5 MG TAB PO SCH (08:07)
[2019-11-20] MEDS: TAMSULOSIN 0.4 MG CAP PO SCH (08:07)
[2019-11-20] MEDS: ENTRESTO 24-26MG TABLET (SACUBITRIL/VALSARTAN) PO SCH ×2 (08:07→22:00)
[2019-11-20] MEDS: SPIRONOLACTONE 12.5MG PER 1/2 TABLET PO SCH (08:07)
[2019-11-20] MEDS: CYANOCOBALAMIN 500 MCG TAB PO SCH (08:08)
[2019-11-20] MEDS: DIGOXIN 0.125 MG TAB PO SCH (08:08)
[2019-11-20] MEDS: METOPROLOL TART 25 MG TABLET PO SCH ×2 (08:09→22:02)
[2019-11-20] MEDS: FUROSEMIDE 20 MG/2 ML VIAL (J1940) IV SCH (08:09)
[2019-11-20 14:00] VITALS: BP 121/64
[2019-11-20] MEDS: MULTIVITAMINS CHILDREN'S CHEWABLE TABLET PO SCH (18:17)
[2019-11-20] MEDS: PANTOPRAZOLE 40MG TAB (PROTONIX) PO SCH (18:17)
[2019-11-20] MEDS: POTASSIUM CHLORIDE 10 MEQ SR TABLET PO SCH (18:17)
--- NOTE | 2019-11-20 20:56 | IPNPDOC ---
Date Seen The patient was seen on 11/20/19. Progress Note HISTORY OF PRESENT ILLNESS: 64-year-old male with past medical history of atrial fibrillation on Pradaxa, coronary artery disease status post stent placement and CABG, amiodarone-induced lung toxicity, cor pulmonale, systolic and diastolic congestive heart failure and hypothyroidism presents from home with shortness of breath and hypoxemia. Patient uses 3 L of oxygen by nasal cannula at home, reports progressively worsening shortness of breath with increasing oxygen requirements since his last hospitalization. Patient has slowly been titrating his oxygen up to a maximum of 5 L by nasal cannula, reports walking around the house today with his oxygen dropping down to the 50s. He was recently evaluated by his creative writing teacher done outpatient workup and advised him that his symptoms are due to underlying heart failure. Patient then went to his library assistant who performed his workup and advised the patient that his issues are related to a pulmonary disease. Patient called his creative writing teacher today describing his symptoms and was advised to come to the hospital. Patient noted to be significa ntly hypoxemic and dyspneic in the hospital. Patient denies any chest pain, nausea, vomiting, abdominal pain or diarrhea. 11/18/19 Patient seen in the morning, resting comfortably on chair, currently on Venturi mask (50% FiO2), reports dyspnea with ambulation to the bathroom, overall respiratory status has improved from yesterday. He is currently sating in the high 90s, FiO2 can likely be titrated down. Patient without additional complaints. 11/19/19 Having significant clinical improvement w/ steroids, FiO2 titrated down to patient's baseline of 3L via NC; dyspnea significantly improved, working w/ PT, physical activity is not at baseline yet. 11/20/19 Patient is in the morning, comfortable in chair, reports improvement from yesterday, nearly at his baseline, dyspnea, has decreased with physical activity, no other complaints. 10 point review of system is negative except for above PHYSICAL EXAMINATION: VITAL SIGNS: Please see below. GENERAL: Morbidly obese HEENT: Normocephalic, atraumatic, moist mucous membranes NECK: Supple CARDIOVASCULAR EXAMINATION: S1, S2, no murmurs RESPIRATORY EXAMINATION:. Diminished, poor air movement, no wheezing or rhonchi appreciated ABDOMINAL EXAMINATION: Soft, nontender, nondistended, positive bowel sounds EXTREMITIES: Trace lower extremity edema SKIN: Chronic venous stasis in the lower extremities NEUROLOGICAL EXAMINATION: Alert and oriented 3, no focal deficits PSYCHIATRIC EXAMINATION: Calm and cooperative LABORATORY DATA: See below. IMAGING: CTA without PE, but showing bilateral scattered opacities MICROBIOLOGY: Please see below. ASSESSMENT: 64-year-old male with multiple medical comorbidities, presents with worsening dyspnea and hypoxemia over the past month. PLAN: 1. Hypoxemia. Given clinical presentation and CT findings, I believe patient's symptoms are likely due to amiodarone-induced pulmonary toxicity. Significant improvement with IV steroids, Solu-Medrol dose decreased, supplemental oxygen as needed to maintain O2 sats between 80-92%, tentatively plan for discharge tomorrow if cleared by physical therapy. 2. Systolic and diastolic Congestive heart failure. continue optimal medical management with Entreso, Lasix, spironolactone, digoxin and metoprolol. 3. Cor pulmonale. continue diuresis, at baseline. 4. Atrial fibrillation. Continue digoxin, metoprolol and Pradaxa 5. Coronary artery disease History of stents and CABG, continue optimal medical management with aspirin, statin and beta esau 6. Hypothyroidism. Continue levothyroxine DVT prophylaxis: on Pradaxa GI prophylaxis: Not needed VS, I&O, 24H, [facility] Vital Signs/I&O Vital Signs Date Time Temp Pulse Resp B/P (MAP) Pulse Ox O2 Delivery O2 Flow Rate FiO2 11/20/19 14:00 97.9 72 20 121/64 (83) 96 Nasal Cannula 3.0 11/17/19 19:46 50 I&O- Last 24 Hours up to 6 AM 11/20/19 06:00 Intake Total 830 ml Output Total 1525 ml Balance -695 ml Laboratory Data 24H LABS Laboratory Tests 2 11/20/19 06:34: Nucleated Red Blood Cells % (auto) 0.0, Anion Gap 4L, Glomerular Filtration Rate > 60.0, Calcium Level 8.4L, Phosphorus Level 3.4, Magnesium Level 2.6H CBC/BMP Laboratory Tests 11/20/19 06:34 Microbiology Microbiology 11/18/19 Respiratory Virus Panel (PCR) (SHAWNA) - Final, Complete 11/17/19 Blood Culture - Preliminary, Resulted No Growth after 72 hours. All specime... 11/17/19 Blood Culture - Preliminary, Resulted No Growth after 72 hours. All specime... DANNIELLE PRESLEY MD Nov 20, 2019:56
[2019-11-20 21:48] VITALS: BP 123/62
[2019-11-20] MEDS: ASPIRIN 81 MG ENTERIC TAB PO SCH (22:00)
[2019-11-20] MEDS: LORATADINE 10 MG TAB PO SCH (22:00)
[2019-11-20] MEDS: DOCUSATE SODIUM 100 MG CAP PO SCH (22:00)
[2019-11-20] MEDS: ROSUVASTATIN 10 MG TAB (CRESTOR) PO SCH (22:02)
[2019-11-20] MEDS: FLUTICASONE PROP 0.05% NASAL SPRAY 16 GM (FLONASE) NARES SCH (22:02)
[2019-11-21] MEDS: LEVOTHYROXINE 100MCG TABLET (0.1MG) PO SCH (05:57)
[2019-11-21] MEDS: LEVOTHYROXINE 50MCG TABLET (0.05MG) PO SCH (05:57)
[2019-11-21 06:00] VITALS: BP 123/62
[2019-11-21 06:13] LABS: HEMATOCRIT 40.9 % (42.0-52.0); HEMOGLOBIN 12.6 g/dl (13.5-17.5); MEAN CORPUSCULAR HEMOGLOBIN 27.7 pg (27.0-33.0); MEAN CORPUSCULAR HGB CONC 30.8 g/dl (32.0-36.5); MEAN CORPUSCULAR VOLUME 89.9 fl (80.0-96.0); PLATELET COUNT, AUTOMATED 330 10^3/uL (150-450); RED BLOOD COUNT 4.55 10^6/uL (4.30-6.10); WHITE BLOOD COUNT 14.7 10^3/uL (4.0-10.0)
[2019-11-21 06:35] LABS: BLOOD UREA NITROGEN 34 MG/DL (7-18); CARBON DIOXIDE LEVEL 30 MEQ/L (21-32); CHLORIDE LEVEL 108 MEQ/L (98-107); CREATININE FOR GFR 0.92 MG/DL (0.70-1.30); GLOMERULAR FILTRATION RATE > 60.0 (>49); GLUCOSE, FASTING 154 MG/DL (70-100); POTASSIUM SERUM 4.3 MEQ/L (3.5-5.1); SODIUM LEVEL 141 MEQ/L (136-145)
[2019-11-21] MEDS ORDERED: FUROSEMIDE 40 MG TAB PO SCH (09:00)
[2019-11-21] MEDS: ENTRESTO 24-26MG TABLET (SACUBITRIL/VALSARTAN) PO SCH (09:48)
[2019-11-21] MEDS: DABIGATRAN ETEXILATE 75 MG CAP (PRADAXA) PO SCH (09:50)
[2019-11-21] MEDS: FINASTERIDE 5 MG TAB PO SCH (09:50)
[2019-11-21 09:51] VITALS: BP 130/67
[2019-11-21] MEDS: DIGOXIN 0.125 MG TAB PO SCH (09:51)
[2019-11-21] MEDS: METOPROLOL TART 25 MG TABLET PO SCH (09:51)
[2019-11-21] MEDS: CYANOCOBALAMIN 500 MCG TAB PO SCH (09:51)
[2019-11-21] MEDS: TAMSULOSIN 0.4 MG CAP PO SCH (09:51)
[2019-11-21] MEDS: methylPREDNISolone INJ 40 MG/1 ML VIAL (J2920) IV SCH (09:52)
[2019-11-21] MEDS: SPIRONOLACTONE 12.5MG PER 1/2 TABLET PO SCH (09:53)
[2019-11-21] MEDS ORDERED: PRED10TA2 PO (10:24)
--- NOTE | 2019-11-21 15:21 | DS.PDOC ---
Discharge Summary General Date of Admission Nov 17, 2019 at 15:55 Date of Discharge 11/21/19 Attending Physician: DANNIELLE PRESLEY MD Discharge Summary PROCEDURES PERFORMED DURING STAY: None. ADMITTING DIAGNOSES: 1. Acute on chronic Hypoxemic respiratory failure, amiodarone-induced lung toxicity. DISCHARGE DIAGNOSES: 1. Acute on chronic hypoxemic respiratory failure, amiodarone-induced lung toxicity. COMPLICATIONS/CHIEF COMPLAINT: AFIB. HISTORY OF PRESENT ILLNESS: 64-year-old male with past medical history of atrial fibrillation, coronary artery disease, history of CABG, congestive heart failure, cor pulmonale, and amiodarone-induced lung toxicity was admitted for acute on chronic hypoxemic respiratory failure likely secondary to amiodarone- induced lung toxicity. Patient has been treated successfully in the past with steroids and every time he is tapered off of steroids, he develops hypoxemia with bilateral pulmonary infiltrates within 1-2 months. Patient was previously admitted a few months ago with similar symptoms and responded really well to steroids at that time. Patient was treated with IV steroids with significant clinical improvement within 24-48 hours, has continued to improve since admission, at his baseline at this time. Patient was cleared by physical therapy for discharge home and outpatient follow-up with pulmonary, cardiology and PCP. Patient is clinically hemodynamically stable for discharge and outpatient follow-up at this time. Patient will be discharged on a slow taper of prednisone, recommend close follow-up with pulmonary within 1 week, further titration of prednisone as per enterprise resource planner. HOSPITAL COURSE: As above. DISCHARGE MEDICATIONS: Please see below. ALLERGIES: Please see below. PHYSICAL EXAMINATION: VITAL SIGNS: Please see below. GENERAL: Morbidly obese HEENT: Normocephalic, atraumatic, moist mucous membranes NECK: Supple CARDIOVASCULAR EXAMINATION: S1, S2, no murmurs RESPIRATORY EXAMINATION:. Diminished, poor air movement, no wheezing or rhonchi appreciated ABDOMINAL EXAMINATION: Soft, nontender, nondistended, positive bowel sounds EXTREMITIES: Trace lower extremity edema SKIN: Chronic venous stasis in the lower extremities NEUROLOGICAL EXAMINATION: Alert and oriented 3, no focal deficits PSYCHIATRIC EXAMINATION: Calm and cooperative LABORATORY DATA: Please see below. IMAGING: CT showing bilateral opacities PROGNOSIS: Guarded ACTIVITY: As tolerated. DIET: Cardiac DISCHARGE PLAN: Follow-up with enterprise resource planner, wool spotter and PCP within 1-2 weeks DISPOSITION: 01 Home, Self-Care. DISCHARGE INSTRUCTIONS: 1. As above. DISCHARGE CONDITION: Stable. TIME SPENT ON DISCHARGE: Greater than 33 minutes. Vital Signs/I&Os Vital Signs Date Time Temp Pulse Resp B/P (MAP) Pulse Ox O2 Delivery O2 Flow Rate FiO2 11/21/19 09:51 88 130/67 11/21/19 09:00 3.0 11/21/19 06:00 97.6 20 95 NIPPV (BIPAP/CPAP) 11/17/19 19:46 50 I&O- Last 24 Hours up to 6 AM 11/21/19 06:00 Intake Total 1235 ml Output Total 1150 ml Balance 85 ml Laboratory Data Labs 24H Laboratory Tests 2 11/21/19 05:50: Nucleated Red Blood Cells % (auto) 0.0, Anion Gap 3L, Glomerular Filtration Rate > 60.0, Calcium Level 8.0L CBC/BMP Laboratory Tests 11/21/19 05:50 Microbiology Microbiology 11/18/19 Respiratory Virus Panel (PCR) ([facility]WNA) - Final, Complete 11/17/19 Blood Culture - Preliminary, Resulted No Growth after 72 hours. All specime... 11/17/19 Blood Culture - Preliminary, Resulted No Growth after 72 hours. All specime... Discharge Medications Scheduled Aspirin (Aspirin EC) 81 Mg Tabec, 81 MG PO QHS, (Reported) Calcium Citrate/Vitamin D3 (Calcium Citrate-Vit D3 Tablet) 1 Tab Tab, 2 TAB PO QPM, (Reported) AT 1700 Cholecalciferol (Vitamin D3) (Vitamin D3) 5,000 Unit Tab.rapdis, 5,000 UNIT PO QHS, (Reported) Cranberry Conc/Ascorbic Acid (Cranberry 12,600 mg Softgel) 1 Each Capsule, 25,200 MG PO DAILY, (Reported) Cyanocobalamin (Vitamin B-12) (Vitamin B-12) 500 Mcg Tab, 1,000 MCG PO DAILY, (Reported) Dabigatran Etexilate Mesylate (Pradaxa) 150 Mg Capsule, 150 MG PO BID, (Reported) Digoxin (Digoxin) 125 Mcg Tab, 125 MCG PO DAILY, (Reported) Docusate Sodium (Colace) 100 Mg Capsule, 100 MG PO QHS, (Reported) Ferrous Fumarate (Ferrous Fumarate) 324 Mg Tab, 324 MG PO QPM, (Reported) AT 1700 Finasteride (Finasteride) 5 Mg Tab, 5 MG PO DAILY, (Reported) Fish Oil/Dha/Epa (Fish Oil 1,200 mg Fish Oil) 1 Each Capsule, 1 CAP PO DAILY, (Reported) Fluticasone Propionate (Flonase Allergy Relief) 50 Mcg/Act Spr, 2 SPRAYS NARES QHS, (Reported) Furosemide (Furosemide) 40 Mg Tab, 40 MG PO DAILY, (Reported) Levothyroxine Sodium (Levothyroxine Sodium) 200 Mcg Tablet, 200 MCG PO DAILY, (Reported) TAKES WITH 50 MCG TAB TO EQUAL 250MCG Levothyroxine Sodium (Levothyroxine Sodium) 50 Mcg Tablet, 50 MCG PO DAILY, (Reported) TAKES WITH 200 MCG TO EQUAL 250 MCG Loratadine (Loratadine) 10 Mg Tab, 10 MG PO QHS, (Reported) Metoprolol Tartrate (Lopressor) 50 Mg Tab, 75 MG PO BID, (Reported) Multivitamins (Child Chew Vitamin) 1 Tab Chew, 2 TAB PO QPM, (Reported) AT 1700 Pantoprazole Sodium (Pantoprazole Sodium) 40 Mg Tab, 40 MG PO QPM, (Reported) AT 1700 Potassium Chloride (Klor-Con M10) 10 Meq Tabcr, 10 MEQ PO QPM, (Reported) AT 1700 Prednisone (Prednisone) 10 Mg Tablet, 1 TAB PO DAILY slow taper: take 5 tabs daily x5 days then 4 tabs daily x5 days then 3 tabs daily x5 days.Further dosing as per Staff Field Engineer Rosuvastatin Calcium (Crestor) 20 Mg Tab, 20 MG PO QHS, (Reported) Sacubitril/Valsartan (Entresto 24 mg-26 mg Tablet) 1 Each Tablet, 1 TAB PO BID, (Reported) Spironolactone (Spironolactone) 25 Mg Tablet, 12.5 MG PO DAILY, (Reported) Tamsulosin HCl (Flomax) 0.4 Mg Cap, 0.4 MG PO DAILY, (Reported) Scheduled PRN Acetaminophen (Acetaminophen) 325 Mg Tablet, 650 MG PO Q6H PRN for PAIN / FEVER, (Reported) Nitroglycerin (Nitrostat) 0.4 Mg Subl, 0.4 MG SL NITRO PRN for CHEST PAIN, (Reported) Allergies Coded Allergies: amiodarone (Verified Allergy, Severe, respiratory issues, 11/17/19) DANNIELLE PRESLEY MD Nov 21, 2019 15:21
== END 2019-11-21 13:14 | disposition home or self-care (01) | DRG 205 ==
LOC: M ED 11:54 → M ED INP 15:55 → ENRESERV 19:51 → M MSPAV 20:06
PROVIDERS: ADMIT Internal Medicine; ATTEND Internal Medicine
DX: J70.3 Chronic drug-induced interstitial lung disorders (principal); J96.21 Acute and chronic respiratory failure with hypoxia; I50.42 Chronic combined systolic (congestive) and diastolic (congestive) heart failure; Z68.42 Body mass index [BMI] 45.0-49.9, adult; I27.81 Cor pulmonale (chronic); I48.91 Unspecified atrial fibrillation; I25.10 Atherosclerotic heart disease of native coronary artery without angina pectoris; E03.9 Hypothyroidism, unspecified; Z95.5 Presence of coronary angioplasty implant and graft; Z79.01 Long term (current) use of anticoagulants; Z99.81 Dependence on supplemental oxygen; T46.2X5A Adverse effect of other antidysrhythmic drugs, initial encounter; Z87.891 Personal history of nicotine dependence; E66.01 Morbid (severe) obesity due to excess calories; Z79.82 Long term (current) use of aspirin

== ENCOUNTER → 2020-03-21 | Outpatient (REF) | payer MEDICARE, OTHER ==
[~2020-03-21] MED LIST changes: +ACET650T61 PO; +ELIQ5TAB PO; +ENAL-36 PO; +FERR1TAB8 PO; -LISI-1046 PO; +LISI2.5T2 PO; +PANT40TA29 PO; -PANT40TA3 PO; -TYLE650T35 PO
== END ==
LOC: M LAB REF 17:17
PROVIDERS: ATTEND Internal Medicine Pulmonary Disease
DX: J84.10 Pulmonary fibrosis, unspecified (principal); R09.02 Hypoxemia

== ENCOUNTER → 2020-05-08 | Emergency (ER) | payer MEDICARE, BC, OTHER ==
[~2020-05-08] MED LIST changes: +BOOSTRIX/ADACEL VACCINE (DIPHTH/PERTUSS/ACELL/TETANUS) 0.5ML SYR As Ordered ONE; +CEPHALEXIN 500 MG CAP As Ordered ONE; +LIDOCAINE W/EPINEPHRINE 1% 20ML VIAL As Ordered ONE
== END | disposition home or self-care (01) ==
LOC: M ED 23:00
DX: S81.811A Laceration without foreign body, right lower leg, initial encounter (principal); W01.198A Fall on same level from slipping, tripping and stumbling with subsequent striking against other object, initial encounter; Y92.018 Other place in single-family (private) house as the place of occurrence of the external cause; I48.91 Unspecified atrial fibrillation; E11.9 Type 2 diabetes mellitus without complications; Z79.01 Long term (current) use of anticoagulants; Z79.899 Other long term (current) drug therapy

== ENCOUNTER 2020-05-09 06:05 | Inpatient (IN) | payer MEDICARE, BC, OTHER ==
[~2020-05-09] VITALS: Ht 190.5 cm; Wt 189.5 kg
[~2020-05-09 06:05] MED LIST changes: -BOOSTRIX/ADACEL VACCINE (DIPHTH/PERTUSS/ACELL/TETANUS) 0.5ML SYR As Ordered ONE; -CEPHALEXIN 500 MG CAP As Ordered ONE; -ELIQ5TAB PO; -FERR1TAB8 PO; -LIDOCAINE W/EPINEPHRINE 1% 20ML VIAL As Ordered ONE
[2020-05-09] MEDS ORDERED: NAFCILLIN SOD 2GM VIAL ONE (10:00)
[2020-05-09] MEDS ORDERED: ENTRESTO 24-26MG TABLET (SACUBITRIL/VALSARTAN) As Ordered ONE (20:58)
[2020-05-09] MEDS ORDERED: LORATADINE 10 MG TAB As Ordered ONE (20:58)
[2020-05-09] MEDS ORDERED: GABAPENTIN 300 MG CAP As Ordered ONE (20:58)
[2020-05-09] MEDS ORDERED: METOPROLOL SUCC *XL* 25MG TAB (TopROL *XL*) As Ordered ONE (20:58)
[2020-05-09] MEDS ORDERED: ROSUVASTATIN 10 MG TAB (CRESTOR) As Ordered ONE (21:00)
[2020-05-10] MEDS ORDERED: ACETAMINOPHEN TAB 650MG DOSE (2X325MG) As Ordered ONE ×2 (04:19→23:15)
[2020-05-10] MEDS ORDERED: LEVOTHYROXINE 125MCG TABLET (0.125MG) As Ordered ONE (06:37)
[2020-05-10] MEDS ORDERED: D5W 100ML MINI-BAG PLUS ONE (09:00)
[2020-05-10] MEDS ORDERED: NAFCILLIN SOD 2GM VIAL ONE (09:00)
[2020-05-10] MEDS ORDERED: FLUTICASONE PROP 0.05% NASAL SPRAY 16 GM (FLONASE) ONE (09:00)
[2020-05-10] MEDS ORDERED: GABAPENTIN 300 MG CAP As Ordered ONE ×2 (10:07→20:09)
[2020-05-10] MEDS ORDERED: FINASTERIDE 5 MG TAB As Ordered ONE (10:07)
[2020-05-10] MEDS ORDERED: PANTOPRAZOLE 40MG TAB (PROTONIX) As Ordered ONE (10:07)
[2020-05-10] MEDS ORDERED: TAMSULOSIN 0.4 MG CAP As Ordered ONE (10:07)
[2020-05-10] MEDS ORDERED: POTASSIUM CHLORIDE 10 MEQ SR TABLET As Ordered ONE (10:07)
[2020-05-10] MEDS ORDERED: ENTRESTO 24-26MG TABLET (SACUBITRIL/VALSARTAN) As Ordered ONE ×2 (10:08→20:09)
[2020-05-10] MEDS ORDERED: FERROUS SULFATE 325MG TAB As Ordered ONE (10:09)
[2020-05-10] MEDS ORDERED: DIGOXIN 0.125 MG TAB As Ordered ONE (10:09)
[2020-05-10] MEDS ORDERED: predniSONE 10 MG TAB As Ordered ONE (10:15)
[2020-05-10] MEDS ORDERED: ACETAMINOPHEN 325 MG TAB As Ordered ONE ×2 (10:34→17:02)
[2020-05-10] MEDS ORDERED: FUROSEMIDE 40 MG TAB As Ordered ONE (13:06)
[2020-05-10] MEDS ORDERED: SPIRONOLACTONE 12.5MG PER 1/2 TABLET As Ordered ONE (13:07)
[2020-05-10] MEDS ORDERED: METOPROLOL TART 25 MG TABLET As Ordered ONE ×2 (13:07→20:09)
[2020-05-10] MEDS ORDERED: LORATADINE 10 MG TAB As Ordered ONE (20:09)
[2020-05-10] MEDS ORDERED: ROSUVASTATIN 10 MG TAB (CRESTOR) As Ordered ONE (20:10)
[2020-05-11] MEDS ORDERED: LEVOTHYROXINE 125MCG TABLET (0.125MG) As Ordered ONE (05:44)
[2020-05-11] MEDS ORDERED: NAFCILLIN SOD 2GM VIAL ONE (09:00)
[2020-05-11] MEDS ORDERED: TAMSULOSIN 0.4 MG CAP As Ordered ONE (09:28)
[2020-05-11] MEDS ORDERED: METOPROLOL TART 25 MG TABLET As Ordered ONE (09:28)
[2020-05-11] MEDS ORDERED: FUROSEMIDE 40 MG TAB As Ordered ONE (09:28)
[2020-05-11] MEDS ORDERED: SPIRONOLACTONE 12.5MG PER 1/2 TABLET As Ordered ONE (09:28)
[2020-05-11] MEDS ORDERED: GABAPENTIN 300 MG CAP As Ordered ONE ×2 (09:29→21:47)
[2020-05-11] MEDS ORDERED: PANTOPRAZOLE 40MG TAB (PROTONIX) As Ordered ONE (09:29)
[2020-05-11] MEDS ORDERED: POTASSIUM CHLORIDE 10 MEQ SR TABLET As Ordered ONE (09:29)
[2020-05-11] MEDS ORDERED: predniSONE 10 MG TAB As Ordered ONE (09:30)
[2020-05-11] MEDS ORDERED: FINASTERIDE 5 MG TAB As Ordered ONE (09:30)
[2020-05-11] MEDS ORDERED: DIGOXIN 0.125 MG TAB As Ordered ONE (09:30)
[2020-05-11] MEDS ORDERED: FERROUS SULFATE 325MG TAB As Ordered ONE (09:30)
[2020-05-11] MEDS ORDERED: ENTRESTO 24-26MG TABLET (SACUBITRIL/VALSARTAN) As Ordered ONE ×2 (09:32→21:48)
[2020-05-11] MEDS ORDERED: LORATADINE 10 MG TAB As Ordered ONE (21:47)
[2020-05-11] MEDS ORDERED: ROSUVASTATIN 10 MG TAB (CRESTOR) As Ordered ONE (21:48)
[2020-05-11] MEDS ORDERED: ACETAMINOPHEN 325 MG TAB As Ordered ONE (23:19)
[2020-05-12] MEDS ORDERED: ACETAMINOPHEN 325 MG TAB As Ordered ONE ×4 (03:48→20:56)
[2020-05-12] MEDS ORDERED: SPIRONOLACTONE 12.5MG PER 1/2 TABLET As Ordered ONE (09:19)
[2020-05-12] MEDS ORDERED: TAMSULOSIN 0.4 MG CAP As Ordered ONE (09:19)
[2020-05-12] MEDS ORDERED: FINASTERIDE 5 MG TAB As Ordered ONE (09:20)
[2020-05-12] MEDS ORDERED: PANTOPRAZOLE 40MG TAB (PROTONIX) As Ordered ONE (09:20)
[2020-05-12] MEDS ORDERED: ENTRESTO 24-26MG TABLET (SACUBITRIL/VALSARTAN) As Ordered ONE ×2 (09:20→20:56)
[2020-05-12] MEDS ORDERED: POTASSIUM CHLORIDE 10 MEQ SR TABLET As Ordered ONE (09:20)
[2020-05-12] MEDS ORDERED: GABAPENTIN 300 MG CAP As Ordered ONE ×2 (09:20→20:56)
[2020-05-12] MEDS ORDERED: predniSONE 10 MG TAB As Ordered ONE (09:21)
[2020-05-12] MEDS ORDERED: DIGOXIN 0.125 MG TAB As Ordered ONE (09:21)
[2020-05-12] MEDS ORDERED: FERROUS SULFATE 325MG TAB As Ordered ONE (09:21)
[2020-05-12] MEDS ORDERED: NAFCILLIN SOD 2GM VIAL ONE (12:00)
[2020-05-12] MEDS ORDERED: METOPROLOL TART 25 MG TABLET As Ordered ONE (16:42)
[2020-05-12] MEDS ORDERED: LORATADINE 10 MG TAB As Ordered ONE (20:56)
[2020-05-12] MEDS ORDERED: ROSUVASTATIN 10 MG TAB (CRESTOR) As Ordered ONE (20:56)
[2020-05-13] MEDS ORDERED: ACETAMINOPHEN 325 MG TAB As Ordered ONE (05:39)
[2020-05-13] MEDS ORDERED: METOPROLOL TART 25 MG TABLET As Ordered ONE ×2 (05:39→20:47)
[2020-05-13] MEDS ORDERED: LEVOTHYROXINE 125MCG TABLET (0.125MG) As Ordered ONE (05:39)
[2020-05-13] MEDS ORDERED: TAMSULOSIN 0.4 MG CAP As Ordered ONE (08:56)
[2020-05-13] MEDS ORDERED: SPIRONOLACTONE 12.5MG PER 1/2 TABLET As Ordered ONE (08:56)
[2020-05-13] MEDS ORDERED: PANTOPRAZOLE 40MG TAB (PROTONIX) As Ordered ONE (08:57)
[2020-05-13] MEDS ORDERED: POTASSIUM CHLORIDE 10 MEQ SR TABLET As Ordered ONE (08:57)
[2020-05-13] MEDS ORDERED: FINASTERIDE 5 MG TAB As Ordered ONE (08:57)
[2020-05-13] MEDS ORDERED: GABAPENTIN 300 MG CAP As Ordered ONE ×2 (08:57→20:48)
[2020-05-13] MEDS ORDERED: ENTRESTO 24-26MG TABLET (SACUBITRIL/VALSARTAN) As Ordered ONE ×2 (08:58→20:48)
[2020-05-13] MEDS ORDERED: DIGOXIN 0.125 MG TAB As Ordered ONE (08:59)
[2020-05-13] MEDS ORDERED: FERROUS SULFATE 325MG TAB As Ordered ONE (08:59)
[2020-05-13] MEDS ORDERED: predniSONE 10 MG TAB As Ordered ONE (08:59)
[2020-05-13] MEDS ORDERED: ACETAMINOPHEN TAB 650MG DOSE (2X325MG) As Ordered ONE ×3 (11:20→20:44)
[2020-05-13] MEDS ORDERED: LORATADINE 10 MG TAB As Ordered ONE (20:47)
[2020-05-13] MEDS ORDERED: APIXABAN 5 MG TAB (ELIQUIS) As Ordered ONE (20:47)
[2020-05-13] MEDS ORDERED: ROSUVASTATIN 10 MG TAB (CRESTOR) As Ordered ONE (20:48)
[2020-05-13] MEDS ORDERED: NAFCILLIN SOD 2GM VIAL ONE (21:00)
[2020-05-14] MEDS ORDERED: ACETAMINOPHEN TAB 650MG DOSE (2X325MG) As Ordered ONE ×4 (04:38→23:17)
[2020-05-14] MEDS ORDERED: LEVOTHYROXINE 125MCG TABLET (0.125MG) As Ordered ONE (07:14)
[2020-05-14] MEDS ORDERED: NAFCILLIN SOD 2GM VIAL ONE (09:00)
[2020-05-14] MEDS ORDERED: APIXABAN 5 MG TAB (ELIQUIS) As Ordered ONE ×2 (09:52→20:28)
[2020-05-14] MEDS ORDERED: FUROSEMIDE 40 MG TAB As Ordered ONE (09:52)
[2020-05-14] MEDS ORDERED: SPIRONOLACTONE 12.5MG PER 1/2 TABLET As Ordered ONE (09:53)
[2020-05-14] MEDS ORDERED: PANTOPRAZOLE 40MG TAB (PROTONIX) As Ordered ONE (09:53)
[2020-05-14] MEDS ORDERED: GABAPENTIN 300 MG CAP As Ordered ONE ×2 (09:53→20:28)
[2020-05-14] MEDS ORDERED: TAMSULOSIN 0.4 MG CAP As Ordered ONE (09:53)
[2020-05-14] MEDS ORDERED: METOPROLOL TART 25 MG TABLET As Ordered ONE ×2 (09:53→20:28)
[2020-05-14] MEDS ORDERED: DIGOXIN 0.125 MG TAB As Ordered ONE (09:54)
[2020-05-14] MEDS ORDERED: ENTRESTO 24-26MG TABLET (SACUBITRIL/VALSARTAN) As Ordered ONE ×2 (09:54→20:29)
[2020-05-14] MEDS ORDERED: POTASSIUM CHLORIDE 10 MEQ SR TABLET As Ordered ONE (09:54)
[2020-05-14] MEDS ORDERED: predniSONE 10 MG TAB As Ordered ONE (09:54)
[2020-05-14] MEDS ORDERED: FINASTERIDE 5 MG TAB As Ordered ONE (09:54)
[2020-05-14] MEDS ORDERED: FERROUS SULFATE 325MG TAB As Ordered ONE (09:55)
[2020-05-14] MEDS ORDERED: LORATADINE 10 MG TAB As Ordered ONE (20:28)
[2020-05-14] MEDS ORDERED: ROSUVASTATIN 10 MG TAB (CRESTOR) As Ordered ONE (20:29)
[2020-05-15] MEDS ORDERED: ACETAMINOPHEN TAB 650MG DOSE (2X325MG) As Ordered ONE ×3 (05:00→17:50)
[2020-05-15] MEDS ORDERED: LEVOTHYROXINE 125MCG TABLET (0.125MG) As Ordered ONE (05:00)
[2020-05-15] MEDS ORDERED: METOPROLOL TART 25 MG TABLET As Ordered ONE (08:48)
[2020-05-15] MEDS ORDERED: TAMSULOSIN 0.4 MG CAP As Ordered ONE (08:48)
[2020-05-15] MEDS ORDERED: APIXABAN 5 MG TAB (ELIQUIS) As Ordered ONE (08:48)
[2020-05-15] MEDS ORDERED: FUROSEMIDE 40 MG TAB As Ordered ONE (08:48)
[2020-05-15] MEDS ORDERED: PANTOPRAZOLE 40MG TAB (PROTONIX) As Ordered ONE (08:49)
[2020-05-15] MEDS ORDERED: GABAPENTIN 300 MG CAP As Ordered ONE (08:49)
[2020-05-15] MEDS ORDERED: FINASTERIDE 5 MG TAB As Ordered ONE (08:49)
[2020-05-15] MEDS ORDERED: POTASSIUM CHLORIDE 10 MEQ SR TABLET As Ordered ONE (08:49)
[2020-05-15] MEDS ORDERED: SPIRONOLACTONE 12.5MG PER 1/2 TABLET As Ordered ONE (08:49)
[2020-05-15] MEDS ORDERED: predniSONE 10 MG TAB As Ordered ONE (08:50)
[2020-05-15] MEDS ORDERED: ENTRESTO 24-26MG TABLET (SACUBITRIL/VALSARTAN) As Ordered ONE (08:50)
[2020-05-15] MEDS ORDERED: DIGOXIN 0.125 MG TAB As Ordered ONE (08:50)
[2020-05-15] MEDS ORDERED: FERROUS SULFATE 325MG TAB As Ordered ONE (08:50)
[2020-05-15] MEDS ORDERED: SLF 3 ML SYR IV PRN (15:45)
[2020-05-15] MEDS ORDERED: MORPHINE 4 MG/ML 1ML VIAL/SYRINGE (J2270) IV PRN (16:00)
[2020-05-15] MEDS ORDERED: ONDANSETRON 4MG/2ML VIAL IV PRN (16:00)
[2020-05-15] MEDS ORDERED: NITROGLYCERIN 0.4 MG SUBL TABLET SL PRN (16:00)
[2020-05-15] MEDS ORDERED: NAFCILLIN SOD 2GM VIAL ONE (18:00)
[2020-05-15] MEDS ORDERED: PRED10TA2 PO (19:04)
[2020-05-15] MEDS ORDERED: GABA-843 PO (19:04)
[2020-05-15] MEDS ORDERED: FERR1TAB8 PO (19:04)
[2020-05-15] MEDS ORDERED: ELIQ5TAB PO (19:04)
[2020-05-15] MEDS ORDERED: APIXABAN 5 MG TAB (ELIQUIS) PO SCH (21:00)
[2020-05-15 21:07] LABS: BASO % 0.3 % (0.0-1.0); EOS # 0.4 10^3/uL (0.0-0.5); EOS % 2.4 % (0.0-3.0); HEMATOCRIT 25.7 % (42.0-52.0); HEMOGLOBIN 8.2 g/dl (13.5-17.5); LYMPH # 1.9 10^3/uL (1.5-5.0); LYMPH % 13.3 % (24.0-44.0); MEAN CORPUSCULAR HEMOGLOBIN 29.1 pg (27.0-33.0); MEAN CORPUSCULAR HGB CONC 31.9 g/dl (32.0-36.5); MEAN CORPUSCULAR VOLUME 91.1 fl (80.0-96.0); MONO # 1.7 10^3/uL (0.0-0.8); MONO % 11.4 % (0.0-5.0); NEUTROPHILS # 10.3 10^3/uL (1.5-8.5); NEUTROPHILS % 71.2 % (36.0-66.0); PLATELET COUNT, AUTOMATED 249 10^3/uL (150-450); RED BLOOD COUNT 2.82 10^6/uL (4.30-6.10); WHITE BLOOD COUNT 14.5 10^3/uL (4.0-10.0)
[2020-05-15] MEDS: ENTRESTO 24-26MG TABLET (SACUBITRIL/VALSARTAN) PO SCH (21:12)
[2020-05-15] MEDS: NAFCILLIN SOD 2 GM in D5W MINI-BAG PLUS 50 ML IV SCH (21:12)
[2020-05-15] MEDS: LORATADINE 10 MG TAB PO SCH (21:12)
[2020-05-15] MEDS: GABAPENTIN 300 MG CAP PO SCH (21:12)
[2020-05-15] MEDS: ROSUVASTATIN 10 MG TAB (CRESTOR) PO SCH (21:12)
[2020-05-15] MEDS: METOPROLOL TART 25 MG TABLET PO SCH (21:12)
[2020-05-15 21:13] LABS: HEMOGLOBIN 9.1 g/dl (13.5-17.5); MEAN CORPUSCULAR HEMOGLOBIN 28.6 pg (27.0-33.0); MEAN CORPUSCULAR HGB CONC 30.3 g/dl (32.0-36.5); MEAN CORPUSCULAR VOLUME 94.3 fl (80.0-96.0); PLATELET COUNT, AUTOMATED 237 10^3/uL (150-450); RED BLOOD COUNT 3.18 10^6/uL (4.30-6.10); WHITE BLOOD COUNT 15.8 10^3/uL (4.0-10.0)
[2020-05-15] MEDS: FLUTICASONE PROP 0.05% NASAL SPRAY 16 GM (FLONASE) NARES SCH (21:13)
[2020-05-15] MEDS: SLF 3 ML SYR IV SCH (21:13)
[2020-05-15 22:00] VITALS: BP 110/87
[2020-05-16] MEDS: NAFCILLIN SOD 2 GM in D5W MINI-BAG PLUS 50 ML IV SCH ×2 (02:52→09:04)
[2020-05-16] MEDS: SLF 3 ML SYR IV SCH ×3 (02:52→21:11)
[2020-05-16] MEDS: ACETAMINOPHEN TAB 650MG DOSE (2X325MG) PO PRN ×2 (03:01→18:02)
[2020-05-16] MEDS: LEVOTHYROXINE 125MCG TABLET (0.125MG) PO SCH (05:10)
[2020-05-16 06:00] VITALS: BP 104/60
[2020-05-16 06:15] LABS: HEMATOCRIT 26.6 % (42.0-52.0); HEMOGLOBIN 8.1 g/dl (13.5-17.5); MEAN CORPUSCULAR HGB CONC 30.5 g/dl (32.0-36.5); PLATELET COUNT, AUTOMATED 280 10^3/uL (150-450); RED BLOOD COUNT 2.89 10^6/uL (4.30-6.10); WHITE BLOOD COUNT 14.8 10^3/uL (4.0-10.0)
[2020-05-16 06:45] LABS: ALBUMIN 2.1 GM/DL (3.2-5.2); ALT/SGPT 27 U/L (12-78); BLOOD UREA NITROGEN 28 MG/DL (7-18); CALCIUM LEVEL 7.9 MG/DL (8.8-10.2); CARBON DIOXIDE LEVEL 28 MEQ/L (21-32); CHLORIDE LEVEL 110 MEQ/L (98-107); CPK CREATINE PHOSPHOKINASE 29 U/L (39-308); CREATININE FOR GFR 1.03 MG/DL (0.70-1.30); GLOMERULAR FILTRATION RATE > 60.0 (>49); GLUCOSE, FASTING 99 MG/DL (70-100); POTASSIUM SERUM 4.3 MEQ/L (3.5-5.1); SODIUM LEVEL 142 MEQ/L (136-145); TOTAL PROTEIN 5.3 GM/DL (6.4-8.2)
[2020-05-16 08:26] LABS: ERYTHROCYTE SEDIMENTATION RATE 106 mm/hr (0-20)
[2020-05-16] MEDS: FINASTERIDE 5 MG TAB PO SCH (08:59)
[2020-05-16] MEDS: ENTRESTO 24-26MG TABLET (SACUBITRIL/VALSARTAN) PO SCH ×2 (08:59→21:09)
[2020-05-16] MEDS: SPIRONOLACTONE 12.5MG PER 1/2 TABLET PO SCH (08:59)
[2020-05-16] MEDS: METOPROLOL TART 25 MG TABLET PO SCH ×2 (09:02→21:09)
[2020-05-16] MEDS: FERROUS SULFATE 325MG TAB PO SCH (09:02)
[2020-05-16] MEDS: predniSONE 10 MG TAB PO SCH (09:03)
[2020-05-16] MEDS: GABAPENTIN 300 MG CAP PO SCH ×2 (09:03→21:08)
[2020-05-16] MEDS: DIGOXIN 0.125 MG TAB PO SCH (09:03)
[2020-05-16] MEDS: PANTOPRAZOLE 40MG TAB (PROTONIX) PO SCH (09:03)
[2020-05-16] MEDS: POTASSIUM CHLORIDE 10 MEQ SR TABLET PO SCH (09:03)
[2020-05-16] MEDS: FUROSEMIDE 40 MG TAB PO SCH (09:04)
[2020-05-16] MEDS: TAMSULOSIN 0.4 MG CAP PO SCH (09:04)
[2020-05-16] MEDS ORDERED: traMADol 50 MG TAB PO PRN (10:15)
--- NOTE | 2020-05-16 10:32 | IPNPDOC ---
Subjective Date Seen The patient was seen on 05/16/20. Subjective Chief Complaint/HPI right leg pain Events since last encounter Mr Catherine is a 65 year old man with known, afib, LENA, on eliquis, hypertens ion, obesity, presented to hospital on 05/06 due to laceration on the right leg, just below the knee. Laceration repair was done in ED and CT scan which showed a hematoma on the leg, ?gas but probably from the laceration. nafcillin was started since admission. I took over patient's care yesterday (see paper medical record), noted that there is skin necrosis near the laceration repair site, fluctuant mass on the right lateral side of the san. skin tear, some blister formation, with chronic hyperpigmentation, edema on the right leg, DP pulses intact. No sensation intact. compartments were soft. Repeat CT right leg was done, which showed larger hematoma noted. Ortho, dr. Meraz consulted, and no surgical intervention recommended at this time. Patient's eliquis has recently been resumed on thursday. Eliquis discontinued yesterday. Patient seen this morning, doing well, not in much pain, only takes tylenol. No fever. No vomiting. No chest pain. No dyspnea. He had some chills last night. No worsening leg pain, only when he ambulates. No numbness noted. Objective Physical Examination General Exam: Positive: Alert, No Acute Distress Eye Exam: Positive: PERRLA, Conjunctiva & lids normal, EOMI; Negative: Sclera icteric ENT Exam: Positive: Atraumatic, Mucous membr. moist/pink, Pharynx Normal Neck Exam: Positive: Supple; Negative: JVD, thyromegaly Chest Exam: Positive: Clear to auscultation, Normal air movement Heart Exam: Positive: Rate Normal, Irregular Rhythm, Normal S1, Normal S2; Negative: Murmurs, Rubs Telemetry: Positive: No significant arrhythmia Abdomen Exam: Positive: Normal bowel sounds, Soft; Negative: Tenderness, Hepatospenomegaly Male Exam: Positive: Normal Genital Exam Extremity Exam: Positive: Normal pulses, Tenderness, Swelling, Other (extensive right leg hyperpigmentation, hematoma, skin necrosis near suture site, fluctuant mass right lateral side, tender, bandages noted today, will re-examine ocen dressing change is done); Negative: Clubbing, Cyanosis, Edema Skin Exam: Positive: Nl turgor and temperature; Negative: Rash, Breakdown Neuro Exam: Positive: Normal Gait, Normal Speech, Cranial Nerves 3-12 NL, Reflexes 2+ Psych Exam: Positive: Mental status NL, Mood NL, Oriented x 3 Assessment /Plan Assessment ASSESSMENT: 1. Right lower extremity laceration, s/p repair, with associated right leg hematoma, 2. chronic atrial fibrillation, on chronic anticoagulation with eliquis 3. Obesity, morbid 4. LENA, on CPAP 5. Hypertension -- all diagnoses present on admission PLANS: Noted leukocytosis, elevated ESR. No fever noted. hgb stable at 8.1. Noted CT scan report yesterday. eliquis has just been discontinued, will repeat cbc in AM, if HGb stable, and no worsening skin necrosis then possible can continue to monitor at home. per ortho, no surgical itnervention needed at this time, no evacuation of hematoma recommended at this time. Will monitor closely, will add zosyn to antibiotic regimen. Discussed with natalee FULL CODE DVT: no anticoagulation due to hematoma. encouraged to ambulate Plan/VTE VTE Prophylaxis Ordered?: No VTE Exclusion Pharmacological: Bleeding Risk Plan Diet: Continue Current Activity: Continue Current Medications: Increase Pain Meds Diagnostics: Repeat Labs in AM Anticipated Discharge: Home VS, I&O, 24H, [place] Vital Signs/I&O Vital Signs Date Time Temp Pulse Resp B/P (MAP) Pulse Ox O2 Delivery O2 Flow Rate FiO2 05/16/20 09:03 80 05/16/20 09:02 108/56 05/16/20 06:00 97.5 18 94 Room Air I&O- Last 24 Hours up to 6 AM 05/16/20 06:00 Intake Total 1000 ml Output Total 651 ml Balance 349 ml Laboratory Data 24H LABS Laboratory Tests 2 05/15/20 18:00: Nucleated Red Blood Cells % (auto) 0.2H 05/16/20 05:50: Nucleated Red Blood Cells % (auto) 0.0, Erythrocyte Sedimentation Rate 106H, Anion Gap 4L, Glomerular Filtration Rate > 60.0, Calcium Level 7.9L, Total Bilirubin 1.0, Aspartate Amino Transf (AST/SGOT) 19, Alanine Aminotransferase (ALT/SGPT) 27, Alkaline Phosphatase 148H, Total Creatine Kinase 29L, Total Protein 5.3L, Albumin 2.1L, Albumin/Globulin Ratio 0.7 CBC/BMP Laboratory Tests 05/15/20 18:00 05/16/20 05:50 SARA LEIVA MD May 16, 2020 10:32
[2020-05-16] MEDS: PIPERACILLIN/TAZOBACTAM SOD 3.375 GM in D5W MINI-BAG PLUS 50 ML IV SCH ×2 (12:03→18:02)
[2020-05-16] MEDS: VANCOMYCIN HCL 1,000 MG, VIAL MATE ADAPTER 1 EACH in D5W 250 ML IV SCH ×2 (13:26→21:08)
[2020-05-16 14:00] VITALS: BP 93/40
[2020-05-16] MEDS ORDERED: VANCOMYCIN HCL 1,000 MG, VIAL MATE ADAPTER 1 EACH in D5W 250 ML IV ONE (14:00)
[2020-05-16] MEDS: ROSUVASTATIN 10 MG TAB (CRESTOR) PO SCH (21:09)
[2020-05-16] MEDS: LORATADINE 10 MG TAB PO SCH (21:09)
[2020-05-16] MEDS: FLUTICASONE PROP 0.05% NASAL SPRAY 16 GM (FLONASE) NARES SCH (21:11)
[2020-05-16 22:00] VITALS: BP 110/48
[2020-05-17] MEDS: ACETAMINOPHEN TAB 650MG DOSE (2X325MG) PO PRN ×3 (00:10→12:08)
[2020-05-17] MEDS: PIPERACILLIN/TAZOBACTAM SOD 3.375 GM in D5W MINI-BAG PLUS 50 ML IV SCH ×4 (00:11→18:22)
[2020-05-17] MEDS: VANCOMYCIN HCL 1,000 MG, VIAL MATE ADAPTER 1 EACH in D5W 250 ML IV SCH ×2 (04:34→14:08)
[2020-05-17] MEDS: SLF 3 ML SYR IV SCH ×3 (05:07→21:12)
[2020-05-17 06:00] VITALS: BP 110/54
[2020-05-17] MEDS: LEVOTHYROXINE 125MCG TABLET (0.125MG) PO SCH (06:06)
[2020-05-17 06:28] LABS: HEMOGLOBIN 8.3 g/dl (13.5-17.5); MEAN CORPUSCULAR HGB CONC 31.9 g/dl (32.0-36.5); MEAN CORPUSCULAR VOLUME 90.9 fl (80.0-96.0); PLATELET COUNT, AUTOMATED 300 10^3/uL (150-450); RED BLOOD COUNT 2.86 10^6/uL (4.30-6.10); WHITE BLOOD COUNT 15.5 10^3/uL (4.0-10.0)
[2020-05-17 06:53] LABS: ALT/SGPT 22 U/L (12-78); BILIRUBIN,TOTAL 0.7 MG/DL (0.2-1.0); BLOOD UREA NITROGEN 29 MG/DL (7-18); CALCIUM LEVEL 7.9 MG/DL (8.8-10.2); CARBON DIOXIDE LEVEL 28 MEQ/L (21-32); CHLORIDE LEVEL 107 MEQ/L (98-107); CREATININE FOR GFR 1.17 MG/DL (0.70-1.30); GLOMERULAR FILTRATION RATE > 60.0 (>49); GLUCOSE, FASTING 104 MG/DL (70-100); SODIUM LEVEL 138 MEQ/L (136-145); TOTAL PROTEIN 5.3 GM/DL (6.4-8.2)
[2020-05-17] MEDS: SPIRONOLACTONE 12.5MG PER 1/2 TABLET PO SCH (09:00)
[2020-05-17] MEDS: ENTRESTO 24-26MG TABLET (SACUBITRIL/VALSARTAN) PO SCH ×2 (09:00→21:00)
[2020-05-17] MEDS: FUROSEMIDE 40 MG TAB PO SCH (09:00)
[2020-05-17] MEDS: METOPROLOL TART 25 MG TABLET PO SCH ×2 (09:00→21:10)
[2020-05-17] MEDS: PANTOPRAZOLE 40MG TAB (PROTONIX) PO SCH (09:03)
[2020-05-17] MEDS: DIGOXIN 0.125 MG TAB PO SCH (09:03)
[2020-05-17] MEDS: TAMSULOSIN 0.4 MG CAP PO SCH (09:04)
[2020-05-17] MEDS: GABAPENTIN 300 MG CAP PO SCH ×2 (09:04→21:11)
[2020-05-17] MEDS: predniSONE 10 MG TAB PO SCH (09:04)
[2020-05-17] MEDS: POTASSIUM CHLORIDE 10 MEQ SR TABLET PO SCH (09:04)
[2020-05-17] MEDS: FINASTERIDE 5 MG TAB PO SCH (09:04)
[2020-05-17] MEDS: FERROUS SULFATE 325MG TAB PO SCH (09:04)
[2020-05-17] MEDS ORDERED: NS 500 ML IV ONE (09:30)
[2020-05-17 09:37] LABS: HEMOGLOBIN 8.4 g/dl (13.5-17.5); MEAN CORPUSCULAR HEMOGLOBIN 28.5 pg (27.0-33.0); MEAN CORPUSCULAR HGB CONC 31.1 g/dl (32.0-36.5); MEAN CORPUSCULAR VOLUME 91.5 fl (80.0-96.0); PLATELET COUNT, AUTOMATED 243 10^3/uL (150-450); RED BLOOD COUNT 2.95 10^6/uL (4.30-6.10); WHITE BLOOD COUNT 17.5 10^3/uL (4.0-10.0)
[2020-05-17 09:38] LABS: HEMATOCRIT 24.4 % (42.0-52.0); HEMOGLOBIN 7.8 g/dl (13.5-17.5); MEAN CORPUSCULAR HEMOGLOBIN 29.2 pg (27.0-33.0); MEAN CORPUSCULAR VOLUME 91.4 fl (80.0-96.0); PLATELET COUNT, AUTOMATED 214 10^3/uL (150-450); RED BLOOD COUNT 2.67 10^6/uL (4.30-6.10); WHITE BLOOD COUNT 13.6 10^3/uL (4.0-10.0)
[2020-05-17 10:49] VITALS: BP 102/56
[2020-05-17 14:00] VITALS: BP 95/59
--- NOTE | 2020-05-17 18:52 | IPNPDOC ---
Subjective Date Seen The patient was seen on 05/17/20. Subjective Chief Complaint/HPI patient had an episode of hypotension this morning, but not symptomatic, his meds has not been given at that time. Seen this morning. No worsening pain, still having some blood draining, but no numbness on the legs. No chest pain, no fever, no chills. Objective Physical Examination General Exam: Positive: Alert, No Acute Distress Eye Exam: Positive: PERRLA, Conjunctiva & lids normal, EOMI; Negative: Sclera icteric ENT Exam: Positive: Atraumatic, Mucous membr. moist/pink, Pharynx Normal Neck Exam: Positive: Supple; Negative: JVD, thyromegaly Chest Exam: Positive: Clear to auscultation, Normal air movement Heart Exam: Positive: Rate Normal, Irregular Rhythm, Normal S1, Normal S2; Negative: Murmurs, Rubs Telemetry: Positive: No significant arrhythmia Abdomen Exam: Positive: Normal bowel sounds, Soft; Negative: Tenderness, Hepatospenomegaly Male Exam: Positive: Normal Genital Exam Extremity Exam: Positive: Normal pulses, Tenderness, Swelling, Other (extensive right leg hyperpigmentation, hematoma, skin necrosis near suture site, fluctuant mass right lateral side, tender, bandages noted today, will re-examine ocen dressing change is done); Negative: Clubbing, Cyanosis, Edema Skin Exam: Positive: Nl turgor and temperature; Negative: Rash, Breakdown Neuro Exam: Positive: Normal Gait, Normal Speech, Cranial Nerves 3-12 NL, Reflexes 2+ Psych Exam: Positive: Mental status NL, Mood NL, Oriented x 3 Other physical findings General: awake, alert, oriented x 3 , not in acute respiratory distress, appears as stated age, HEENT: anicteric sclerae, no nasal discharges, no throat exudates, no oral lesions, PERRL, EOM intact, NECK: supple, no cervical tenderness, no bruit noted, no rigidity noted CHEST: clear breath sounds, equal chest expansion, no rales or wheezing CVS; s1 and s2 distinct, no murmurs audible note, no rubs, or thrills, ABDOMEN: soft, positive normoactive bowel sounds, no tenderness, no rigidity , no guarding noted EXTREMITIES: chronic hyperpigmentation both extremities, right leg edema, improving, hematoma present, with skin blisters noted, with skin necrosis,stable, CONSTRUCTION QUALITY CONTROL MANAGER; awake, alert, oriented x 3 CN II-XII grossly intact, no focal sensory or motor deficits Psych, no anxiety, comfortable, no hallucinations or delusions Assessment /Plan Assessment ASSESSMENT: 1. Right lower extremity laceration, s/p repair, with associated right leg hematoma, 2. chronic atrial fibrillation, on chronic anticoagulation with eliquis 3. Obesity, morbid 4. LENA, on CPAP 5. Hypertension -- all diagnoses present on admission Plans: Hold all antihypertensive meds for now. Given a bolus this morning. repeat CBC in AM. Hgb stable, doubt new bleeding. Off eliquis still. leukocytosis still present, continue wth IV antibiotics still, if no further skin necrosis, stable hgb, anticipate that we could potentially discharge patient in 48 hours. Plan/VTE VTE Prophylaxis Ordered?: No VTE Exclusion Pharmacological: Bleeding Risk Plan Diet: Continue Current Activity: Continue Current Medications: Increase Pain Meds Diagnostics: Repeat Labs in AM Anticipated Discharge: Home VS, I&O, 24H, [facility] Vital Signs/I&O Vital Signs Date Time Temp Pulse Resp B/P (MAP) Pulse Ox O2 Delivery O2 Flow Rate FiO2 05/17/20 14:00 98.7 93 18 95/59 (71) 94 05/16/20 14:00 Room Air I&O- Last 24 Hours up to 6 AM 05/17/20 06:00 Intake Total 3080 ml Output Total 2795 ml Balance 285 ml Laboratory Data 24H LABS Laboratory Tests 2 05/17/20 06:06: Nucleated Red Blood Cells % (auto) 0.0, Anion Gap 3L, Glomerular Filtration Rate > 60.0, Calcium Level 7.9L, Total Bilirubin 0.7, Aspartate Amino Transf (AST/SGOT) 15, Alanine Aminotransferase (ALT/SGPT) 22, Alkaline Phosphatase 146H, Total Protein 5.3L, Albumin 2.0L, Albumin/Globulin Ratio 0.6 05/17/20 12:00: Vancomycin Level Trough 15.8 CBC/BMP Laboratory Tests 05/17/20 06:06 SARA LEIVA MD May 17, 2020 18:51
[2020-05-17] MEDS: AUGMENTIN 875 MG TAB PO SCH (21:10)
[2020-05-17] MEDS: LORATADINE 10 MG TAB PO SCH (21:10)
[2020-05-17] MEDS: FLUTICASONE PROP 0.05% NASAL SPRAY 16 GM (FLONASE) NARES SCH (21:11)
[2020-05-17] MEDS: ROSUVASTATIN 10 MG TAB (CRESTOR) PO SCH (21:11)
[2020-05-17 22:00] VITALS: BP 99/56
[2020-05-18] MEDS: ACETAMINOPHEN TAB 650MG DOSE (2X325MG) PO PRN ×2 (02:57→08:58)
[2020-05-18 06:00] VITALS: BP 102/57
[2020-05-18] MEDS: LEVOTHYROXINE 125MCG TABLET (0.125MG) PO SCH (06:01)
[2020-05-18] MEDS: SLF 3 ML SYR IV SCH (06:02)
[2020-05-18] MEDS: ENTRESTO 24-26MG TABLET (SACUBITRIL/VALSARTAN) PO SCH (08:53)
[2020-05-18 08:58] VITALS: BP 96/48
[2020-05-18] MEDS: AUGMENTIN 875 MG TAB PO SCH (08:58)
[2020-05-18] MEDS: POTASSIUM CHLORIDE 10 MEQ SR TABLET PO SCH (08:59)
[2020-05-18] MEDS: TAMSULOSIN 0.4 MG CAP PO SCH (08:59)
[2020-05-18] MEDS: predniSONE 10 MG TAB PO SCH (08:59)
[2020-05-18] MEDS: FUROSEMIDE 40 MG TAB PO SCH (08:59)
[2020-05-18] MEDS: PANTOPRAZOLE 40MG TAB (PROTONIX) PO SCH (08:59)
[2020-05-18] MEDS: DIGOXIN 0.125 MG TAB PO SCH (08:59)
[2020-05-18] MEDS: FINASTERIDE 5 MG TAB PO SCH (09:00)
[2020-05-18] MEDS ORDERED: METOPROLOL TART 50 MG TAB PO SCH (09:00)
[2020-05-18] MEDS: GABAPENTIN 300 MG CAP PO SCH (09:00)
[2020-05-18] MEDS: FERROUS SULFATE 325MG TAB PO SCH (09:00)
[2020-05-18 09:27] LABS: HEMATOCRIT 28.5 % (42.0-52.0); HEMOGLOBIN 8.8 g/dl (13.5-17.5); MEAN CORPUSCULAR HEMOGLOBIN 28.6 pg (27.0-33.0); MEAN CORPUSCULAR HGB CONC 30.9 g/dl (32.0-36.5); MEAN CORPUSCULAR VOLUME 92.5 fl (80.0-96.0); PLATELET COUNT, AUTOMATED 325 10^3/uL (150-450); RED BLOOD COUNT 3.08 10^6/uL (4.30-6.10); WHITE BLOOD COUNT 13.7 10^3/uL (4.0-10.0)
[2020-05-18 09:58] LABS: ALBUMIN 2.1 GM/DL (3.2-5.2); ALT/SGPT 21 U/L (12-78); BILIRUBIN,TOTAL 0.7 MG/DL (0.2-1.0); BLOOD UREA NITROGEN 23 MG/DL (7-18); CALCIUM LEVEL 8.3 MG/DL (8.8-10.2); CARBON DIOXIDE LEVEL 27 MEQ/L (21-32); CHLORIDE LEVEL 111 MEQ/L (98-107); CREATININE FOR GFR 1.02 MG/DL (0.70-1.30); GLOMERULAR FILTRATION RATE > 60.0 (>49); GLUCOSE, FASTING 126 MG/DL (70-100); POTASSIUM SERUM 3.9 MEQ/L (3.5-5.1); SODIUM LEVEL 142 MEQ/L (136-145); TOTAL PROTEIN 5.6 GM/DL (6.4-8.2)
[2020-05-18] MEDS ORDERED: LOPR1TAB6 PO (12:44)
[2020-05-18] MEDS ORDERED: AMOX875T2 PO (12:44)
--- NOTE | 2020-05-18 12:57 | DS.PDOC ---
Discharge Summary General Date of Admission May 09, 2020 at 08:00 Date of Discharge May 18, 2020 Discharge Summary PROCEDURES PERFORMED DURING STAY: Laceration repair ADMITTING DIAGNOSES: 1. Right lower extremity laceration, s/p repair, with associated right leg hematoma, 2. chronic atrial fibrillation, on chronic anticoagulation with eliquis 3. Obesity, morbid 4. LENA, on CPAP 5. Hypertension -- all diagnoses present on admission DISCHARGE DIAGNOSES: 1. Right lower extremity laceration, s/p repair, with associated right leg hematoma, 2. chronic atrial fibrillation, on chronic anticoagulation with eliquis 3. Obesity, morbid 4. LENA, on CPAP 5. Hypertension -- all diagnoses present on admission COMPLICATIONS/CHIEF COMPLAINT: near syncope, fall, right leg laceration HISTORY OF PRESENT ILLNESS: Mr. Catherine is a 65 year old man with known history of Chronic congestive heart failure, on entresto afib, on eliquis, morbid obesity on CPAP for sleep apnea, presented to hospital after he had a laceration on the right leg. it was a rather large linear laceration, jus below the right knee, laceration repair done in ED. He was admitted for closer monitoring. He takes eliquis. CT leg showed a large hematoma, with possible gas, but likely due to the open wound. No sepsis noted. Noted leukocytosis thus empirically started on antibiotics. He continues to have leg pain, noted areas of skin necrosis as well. Ortho consulted, spoke with Dr. Hutson, and repeat CT was done to evaluate if hematoma has been enlarging, it is slightly enlarged, but old blood clots were noted to be draining at the laceration repair site. No wound dehiscence noted. Ortho did not recommend surgical evacuation of hematoma at this time. His pain had been controlled. Hgb stable. Noted leukocytosis, and thus vanc and zosyn given, no culture growth, thus planned to de-escalated. In the past few days, there is no worsening skin necrosis, blisters noted, one spontaneously ruptured, skin tear noted as well. Patient's wound examined today, and spend a few minutes slowly evacuating hematoma while pressing on his leg. It does appear much better, no warm to touch, compartments soft. repair site intact. BP had been low, and dose of his medications were adjusted. Advised to stop aldactone for now, and metoprolol dose decrease. He needs to resume entresto. He did wel with PT and rehab no longer recommended. patient seen today, not in any distress, Bp stable. HGb stable. Eliquis should still be on hold due to large hematoma, risks outweigh the risk. patient is stable for discharge home. ff-up with cardiology and ortho as outpatient. HOSPITAL COURSE: as above DISCHARGE MEDICATIONS: Please see below. ALLERGIES: Please see below. PHYSICAL EXAMINATION ON DISCHARGE: VITAL SIGNS: Please see below. clear breath sounds, no rales or wheezing S1 and s2 distinct, no murmurs noted. abdomen obese, not tender, no rigidity, no tenderness Extremities: Right leg edema, much improved, hematoma appearance also improed, still has blister, skin necrosis, stable, LABORATORY DATA: Please see below. IMAGING: Ct scan leg PROGNOSIS: good ACTIVITY: [As tolerated]. DIET: cardiac diet, fluid restriction 2000 ml/day DISCHARGE PLAN: discharge to home with home health nursing for wound care DISPOSITION: stable for discharge to home DISCHARGE INSTRUCTIONS: 1. Check BP daily. Keep SBP >100. Metoprolol doses lowered to 25 mg PO BID. Do not take if BP <100. Aldactone stopped due to low BP. 2. resume lasix and entresto. 3. stop eliquis for now. May resume aspirin. 4. ferrous sulfate to continue. 5. ff-up with cardiology and ortho ITEMS TO FOLLOWUP ON ON OUTPATIENT: ff-up with cardiology, and dr. hutson DISCHARGE CONDITION: [Stable]. TIME SPENT ON DISCHARGE: discussion with patient and , wound care, reviewing meds - took 50 minutes of my time. Vital Signs/I&Os Vital Signs Date Time Temp Pulse Resp B/P (MAP) Pulse Ox O2 Delivery O2 Flow Rate FiO2 05/18/20 08:59 103 05/18/20 08:58 96/48 05/18/20 06:00 97.8 18 94 Room Air I&O- Last 24 Hours up to 6 AM 05/18/20 06:00 Intake Total 2540 ml Output Total 1725 ml Balance 815 ml Laboratory Data Labs 24H Laboratory Tests 2 05/18/20 09:07: Nucleated Red Blood Cells % (auto) 0.1H, Erythrocyte Sedimentation Rate > 140H, Anion Gap 4L, Glomerular Filtration Rate > 60.0, Calcium Level 8.3L, Total Bilirubin 0.7, Aspartate Amino Transf (AST/SGOT) 15, Alanine Aminotransferase (ALT/SGPT) 21, Alkaline Phosphatase 152H, Total Protein 5.6L, Albumin 2.1L, A lbumin/Globulin Ratio 0.6 CBC/BMP Laboratory Tests 05/18/20 09:07 Discharge Medications Scheduled Amoxicillin/Potassium Clav (Amox-Clav 875-125 mg Tablet) 1 Each Tablet, 875 MG PO BID Aspirin (Aspirin EC) 81 Mg Tabec, 81 MG PO QHS, (Reported) Calcium Citrate/Vitamin D3 (Calcium Citrate-Vit D3 Tablet) 1 Tab Tab, 1 TAB PO BID, (Reported) Cranberry Conc/Ascorbic Acid (Cranberry 12,600 mg Softgel) 1 Each Capsule, 25,200 MG PO DAILY, (Reported) Cyanocobalamin (Vitamin B-12) (Vitamin B-12) 500 Mcg Tab, 1,000 MCG PO QHS, (Reported) Digoxin (Digoxin) 125 Mcg Tab, 125 MCG PO DAILY, (Reported) Docusate Sodium (Colace) 100 Mg Capsule, 100 MG PO DAILY, (Reported) Ferrous Sulfate (Ferrous Sulfate) 325 Mg Tablet, 325 MG PO DAILY, (Reported) Finasteride (Finasteride) 5 Mg Tab, 5 MG PO DAILY, (Reported) Fish Oil/Dha/Epa (Fish Oil 1,200 mg Fish Oil) 1 Each Capsule, 1 CAP PO DAILY, (Reported) Fluticasone Propionate (Flonase Allergy Relief) 50 Mcg/Act Spr, 2 SPRAYS NARES QHS, (Reported) Furosemide (Furosemide) 40 Mg Tab, 40 MG PO DAILY, (Reported) Gabapentin (Gabapentin) 300 Mg Capsule, 300 MG PO BID, (Reported) Levothyroxine Sodium (Levothyroxine Sodium) 200 Mcg Tablet, 200 MCG PO DAILY, (Reported) TAKES WITH 50 MCG TAB TO EQUAL 250MCG Levothyroxine Sodium (Levothyroxine Sodium) 50 Mcg Tablet, 50 MCG PO DAILY, (Reported) TAKES WITH 200 MCG TO EQUAL 250 MCG Loratadine (Loratadine) 10 Mg Tab, 10 MG PO QHS, (Reported) Metoprolol Tartrate (Lopressor) 50 Mg Tab, 25 MG PO BID Multivitamins (Child Chew Vitamin) 1 Tab Chew, 1 TAB PO BID, (Reported) Pantoprazole Sodium (Pantoprazole Sodium) 40 Mg Tab, 40 MG PO DAILY, (Reported) Potassium Chloride (Klor-Con M10) 10 Meq Tabcr, 10 MEQ PO DAILY, (Reported) Prednisone (Prednisone) 10 Mg Tablet, 10 MG PO DAILY, (Reported) Rosuvastatin Calcium (Crestor) 20 Mg Tab, 20 MG PO QHS, (Reported) Sacubitril/Valsartan (Entresto 24 mg-26 mg Tablet) 1 Each Tablet, 1 TAB PO BID, (Reported) Tamsulosin HCl (Flomax) 0.4 Mg Cap, 0.4 MG PO DAILY, (Reported) Scheduled PRN Nitroglycerin (Nitrostat) 0.4 Mg Subl, 0.4 MG SL NITRO PRN for CHEST PAIN, (Reported) Allergies Coded Allergies: amiodarone (Verified Allergy, Severe, respiratory issues, 11/17/19) SARA LEIVA MD May 18, 2020 12:57
[2020-05-18 14:00] VITALS: BP 120/61
[2020-05-20 21:39] LABS: HEMATOCRIT 26.3 % (42.0-52.0); HEMOGLOBIN 8.3 g/dl (13.5-17.5); MEAN CORPUSCULAR HEMOGLOBIN 28.5 pg (27.0-33.0); MEAN CORPUSCULAR VOLUME 90.4 fl (80.0-96.0); RED BLOOD COUNT 2.91 10^6/uL (4.30-6.10)
[2020-05-20 21:40] LABS: MEAN CORPUSCULAR HGB CONC 31.6 g/dl (32.0-36.5); PLATELET COUNT, AUTOMATED 186 10^3/uL (150-450)
--- NOTE | 2020-06-12 09:38 | ECGEPIP ---
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
--- NOTE | 2020-06-21 15:35 | ECGEPIP ---
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
[2020-06-22 10:06] LABS: BASO # 0.1 10^3/uL (0.0-0.2); BASO % 0.4 % (0.0-1.0); EOS # 0.2 10^3/uL (0.0-0.5); EOS % 0.9 % (0.0-3.0); HEMATOCRIT 37.7 % (42.0-52.0); HEMOGLOBIN 11.9 g/dl (13.5-17.5); LYMPH # 1.9 10^3/uL (1.5-5.0); LYMPH % 9.1 % (24.0-44.0); MEAN CORPUSCULAR HEMOGLOBIN 28.1 pg (27.0-33.0); MEAN CORPUSCULAR HGB CONC 31.6 g/dl (32.0-36.5); MEAN CORPUSCULAR VOLUME 89.1 fl (80.0-96.0); MONO # 1.7 10^3/uL (0.0-0.8); MONO % 8.1 % (0.0-5.0); NEUTROPHILS # 16.9 10^3/uL (1.5-8.5); NEUTROPHILS % 80.4 % (36.0-66.0); PLATELET COUNT, AUTOMATED 225 10^3/uL (150-450); RED BLOOD COUNT 4.23 10^6/uL (4.30-6.10); WHITE BLOOD COUNT 21.1 10^3/uL (4.0-10.0)
[2020-06-22 10:07] LABS: HEMATOCRIT 34.4 % (42.0-52.0); HEMOGLOBIN 10.9 g/dl (13.5-17.5)
[2020-06-22 10:17] LABS: INR 1.2; PARTIAL THROMBOPLASTIN TIME 36.9 SECONDS (24.2-38.5); PROTHROMBIN TIME 15.5 SECONDS (12.5-14.3)
[2020-06-22 10:28] LABS: APPEARANCE, URINE CLEAR (CLEAR); BACTERIA, URINE AUTO NEGATIVE (NEGATIVE); BILIRUBIN, URINE AUTO NEGATIVE (NEGATIVE); BLOOD, URINE BLOOD NEGATIVE (NEGATIVE); COLOR, URINE YELLOW (YELLOW); GLUCOSE, URINE (UA) AUTO NEGATIVE (NEGATIVE); KETONE, URINE AUTO NEGATIVE (NEGATIVE); LEUKOCYTE ESTERASE, URINE AUTO NEGATIVE (NEGATIVE); MUCUS, URINE SMALL (NEGATIVE); NITRITE, URINE AUTO NEGATIVE (NEGATIVE); PROTEIN, URINE AUTO NEGATIVE (NEGATIVE); RBC, URINE AUTO 2 /HPF (0-3); SPECIFIC GRAVITY URINE AUTO 1.025 (1.002-1.035); SQUAMOUS EPITHELIAL CELL UR AU 1 /HPF (0-6); WBC, URINE AUTO 2 /HPF (0-3)
[2020-07-01 01:00] LABS: HEMATOCRIT 33.3 % (42.0-52.0); HEMOGLOBIN 10.6 g/dl (13.5-17.5)
[2020-07-01 01:00] LABS: HEMATOCRIT 30.7 % (42.0-52.0); HEMOGLOBIN 9.7 g/dl (13.5-17.5)
[2020-07-01 16:42] LABS: HEMATOCRIT 31.3 % (42.0-52.0)
[2020-07-01 17:26] LABS: HEMATOCRIT 31.3 % (42.0-52.0); MEAN CORPUSCULAR HEMOGLOBIN 28.5 pg (27.0-33.0); MEAN CORPUSCULAR HGB CONC 31.9 g/dl (32.0-36.5); MEAN CORPUSCULAR VOLUME 89.2 fl (80.0-96.0); PLATELET COUNT, AUTOMATED 197 10^3/uL (150-450); RED BLOOD COUNT 3.51 10^6/uL (4.30-6.10); WHITE BLOOD COUNT 15.5 10^3/uL (4.0-10.0)
[2020-07-01 17:27] LABS: INR 1.12; PROTHROMBIN TIME 14.6 SECONDS (12.5-14.3)
--- NOTE | 2020-07-06 12:27 | IPN ---
DATE: 05/15/2020 HISTORY: This is a male patient who sustained an injury on 05/08/2020 when he slipped, fell, and struck his leg on a dresser. He was noted to have a soft tissue wound. There is no ligamentous damage. No tendon damage. His wound was closed in the emergency room (ER). He was evaluated by orthopedics and ultimately they sent him home. When he arrived at home, he continued to have diffuse bleeding through the wound. It bled through the dressing, so he was ultimately admitted back into the hospital. After admission, he had noted some improvement. They restarted his Eliquis on Thursday, and then he was due to be discharged today and woke up with oozing from the wound, further discharge from the wound, further bleeding from the wound, so an updated CT scan was obtained notable for a 23 x 15 x 7 cm hematoma, relatively unchanged from the prior hematoma. There was also a comment about a gas pattern which is consistent with his open injury to that knee. It was only 7 days ago when it was closed. The report was reviewed. Unfortunately, no images are available for review, just the report. Overall, patient denies any pain. He is able to lift the leg. No calf pain. He has not had any fevers in the last 24 hours. No chest pain, shortness of breath, or cough. He has been up to the bathroom, getting back and forth to the bathroom with the use of the walker, but he does not use assistance to get and out of bed. He is able to do that on his own. Overall he feels his symptoms have not really worsened, just the concern about the bleeding, so orthopedics was re-consulted. Exam of the leg today does reveal an area of eschar along the anterior aspect of the leg. There is no bright red bleeding. There is some fluid discharge consistent with a hematoma, but there is no foul odor, no signs of infection, no gross pus from the wound. The calf is soft, nontender to palpation. No pain with passive range of motion of the ankle. He can do a straight leg raise. On exam, there is no tenderness around the thigh. Compartment of the thigh is also soft, nontender to palpation. No appreciable ropes. On exam, no pain with passive range of motion of the great toe. Dorsalis pedis and posterior tibial pulses are palpable. There is chronic venous congestion noted in the anterior san as well. There is 2+ pitting edema below the hematoma also noted. He can do both active and passive ankle range of motion without pain. He can sensate light touch. PLAN: I discussed the patient with Dr. Gunter, reviewed the CT scan together, went over his findings. Plan for now is to continue dressing changes. There are no indications for requirement of drainage of the hematoma or any operative procedures at that is point. He can continue weightbearing using the walker for protective weightbearing, doing ankle pumps, gentle leg lifts. Do not overdue it. Dressing changes are currently through his primary service, twice a day dressing change. Elevation on three pillows above the level of the heart would be helpful to help resolve some of the hematoma. Sutures should stay intact at least for 2 weeks and possibly longer, so no suture removal required at this point. If his symptoms significantly worsen, he can re-consult orthopedics at that point, and we will do another followup, but for now we will followup at a distance, as there are no indications for surgical procedures at this point. No operation required. No need to drain at this juncture, really just needs a tincture of time. He can followup in orthopedic clinic with Dr. Gunter on an outpatient basis, probably in 7-10 days for followup. All of his questions were answered. His family member's questions were answered as well. ANAYA
[2020-07-08 07:19] LABS: HEMATOCRIT 29.5 % (42.0-52.0); HEMOGLOBIN 9.3 g/dl (13.5-17.5); MEAN CORPUSCULAR HEMOGLOBIN 28.5 pg (27.0-33.0); MEAN CORPUSCULAR HGB CONC 31.5 g/dl (32.0-36.5); MEAN CORPUSCULAR VOLUME 90.5 fl (80.0-96.0); PLATELET COUNT, AUTOMATED 200 10^3/uL (150-450); RED BLOOD COUNT 3.26 10^6/uL (4.30-6.10); WHITE BLOOD COUNT 15.7 10^3/uL (4.0-10.0)
[2020-07-23 13:47] LABS: HEMATOCRIT 26.8 % (42.0-52.0); HEMOGLOBIN 8.5 g/dl (13.5-17.5); MEAN CORPUSCULAR HEMOGLOBIN 28.9 pg (27.0-33.0); MEAN CORPUSCULAR HGB CONC 31.7 g/dl (32.0-36.5); MEAN CORPUSCULAR VOLUME 91.2 fl (80.0-96.0); PLATELET COUNT, AUTOMATED 222 10^3/uL (150-450); RED BLOOD COUNT 2.94 10^6/uL (4.30-6.10); WHITE BLOOD COUNT 16.1 10^3/uL (4.0-10.0)
[2020-07-29 10:53] LABS: ALBUMIN 2.3 GM/DL (3.2-5.2); ALT/SGPT 20 U/L (12-78); BLOOD UREA NITROGEN 33 MG/DL (7-18); CALCIUM LEVEL 8.1 MG/DL (8.8-10.2); CARBON DIOXIDE LEVEL 26 MEQ/L (21-32); CHLORIDE LEVEL 110 MEQ/L (98-107); CREATININE FOR GFR 1.09 MG/DL (0.70-1.30); GLOMERULAR FILTRATION RATE > 60.0 (>49); GLUCOSE, FASTING 102 MG/DL (70-100); MAGNESIUM LEVEL 2.2 MG/DL (1.8-2.4); POTASSIUM SERUM 4.4 MEQ/L (3.5-5.1); SODIUM LEVEL 142 MEQ/L (136-145); TOTAL PROTEIN 5.4 GM/DL (6.4-8.2)
[2020-08-01 04:32] LABS: CALCIUM LEVEL 8.1 MG/DL (8.8-10.2); CREATININE FOR GFR 1.57 MG/DL (0.70-1.30); GLOMERULAR FILTRATION RATE 47.1 (>49); POTASSIUM SERUM 3.8 MEQ/L (3.5-5.1)
[2020-08-01 05:12] LABS: NT-PRO BNP 702 PG/ML (<125); TROPONIN I < 0.02 NG/ML (< 0.10)
[2020-08-01 05:13] LABS: MONO SCRN NEGATIVE (NEGATIVE)
[2020-08-01 16:31] LABS: BLOOD UREA NITROGEN 29 MG/DL (7-18); CALCIUM LEVEL 7.9 MG/DL (8.8-10.2); CARBON DIOXIDE LEVEL 29 mmol/L (20-29); CHLORIDE LEVEL 108 MEQ/L (98-107); CREATININE FOR GFR 1.04 MG/DL (0.70-1.30); GLOMERULAR FILTRATION RATE > 60.0 (>49); GLUCOSE, FASTING 104 MG/DL (70-100); SODIUM LEVEL 141 MEQ/L (136-145); TROPONIN I < 0.02 NG/ML (< 0.10)
[2020-08-05 02:50] LABS: CALCIUM LEVEL 8.2 MG/DL (8.8-10.2); CREATININE FOR GFR 1.51 MG/DL (0.70-1.30); GLOMERULAR FILTRATION RATE 49.3 (>49); MAGNESIUM LEVEL 2.3 MG/DL (1.8-2.4); PHOSPHORUS LEVEL 4.5 MG/DL (2.5-4.9); POTASSIUM SERUM 4.2 MEQ/L (3.5-5.1)
[2020-08-05 10:34] LABS: ALBUMIN 2.3 GM/DL (3.2-5.2); ALT/SGPT 21 U/L (12-78); BILIRUBIN,TOTAL 0.9 MG/DL (0.2-1.0); BLOOD UREA NITROGEN 38 MG/DL (7-18); CALCIUM LEVEL 8.1 MG/DL (8.8-10.2); CARBON DIOXIDE LEVEL 27 MEQ/L (21-32); CHLORIDE LEVEL 108 MEQ/L (98-107); CREATININE FOR GFR 1.25 MG/DL (0.70-1.30); GLOMERULAR FILTRATION RATE > 60.0 (>49); GLUCOSE, FASTING 102 MG/DL (70-100); POTASSIUM SERUM 3.8 MEQ/L (3.5-5.1); SODIUM LEVEL 139 MEQ/L (136-145); TOTAL PROTEIN 5.7 GM/DL (6.4-8.2)
== END 2020-05-18 16:12 | disposition home or self-care (01) | DRG 605 ==
LOC: M ED 06:05 → EEVIPCON 08:00 → M PCU 08:00 → M MSPAV 05-15 15:46
PROVIDERS: ADMIT Internal Medicine; ATTEND Internal Medicine
DX: S81.819A Laceration without foreign body, unspecified lower leg, initial encounter (principal); I48.20 Chronic atrial fibrillation, unspecified; Z68.43 Body mass index [BMI] 50.0-59.9, adult; S80.11XA Contusion of right lower leg, initial encounter; E66.01 Morbid (severe) obesity due to excess calories; G47.33 Obstructive sleep apnea (adult) (pediatric); I10 Essential (primary) hypertension; Z79.01 Long term (current) use of anticoagulants; Z88.8 Allergy status to other drugs, medicaments and biological substances; W01.198A Fall on same level from slipping, tripping and stumbling with subsequent striking against other object, initial encounter; Y92.018 Other place in single-family (private) house as the place of occurrence of the external cause

== ENCOUNTER → 2020-08-15 | Outpatient (REF) | payer MEDICARE, BC, OTHER ==
[~2020-08-15] MED LIST changes: +D31000TA2 PO; +ELIQ5TAB PO; +FERR1TAB8 PO
== END ==
LOC: M LAB REF 15:51
PROVIDERS: ATTEND Physician Assistant
DX: L82.1 Other seborrheic keratosis (principal)

== ENCOUNTER 2020-08-20 16:20 | Inpatient (IN) | payer MEDICARE, BC, OTHER ==
[~2020-08-20] VITALS: Ht 190.5 cm; Wt 185.0 kg
[~2020-08-20 16:20] MED LIST changes: -D31000TA2 PO
[2020-08-20] MEDS ORDERED: D31000TA2 PO (17:10)
[2020-08-20] MEDS ORDERED: FERR324T12 PO (17:10)
[2020-08-20] MEDS ORDERED: ELIQ5TAB PO (17:10)
[2020-08-20] MEDS ORDERED: methylPREDNISolone 125MG 2ML VIAL IV ONE (17:15)
[2020-08-20] MEDS ORDERED: IPRATROPIUM 0.5MG/ALBUTEROL 2.5MG INH SOL UD 3ML (DUONEB) NEB ONE (17:15)
[2020-08-20] MEDS ORDERED: ALBUTEROL SULFATE 2.5 MG/0.5 ML INH NEB SOLN INH ONE (17:15)
[2020-08-20] MEDS ORDERED: NS 500 ML IV ONE (17:15)
[2020-08-20 18:05] LABS: BASO % 0.3 % (0.0-1.0); EOS # 0.1 10^3/uL (0.0-0.5); EOS % 0.8 % (0.0-3.0); HEMATOCRIT 44.3 % (42.0-52.0); HEMOGLOBIN 13.9 g/dl (13.5-17.5); LYMPH # 2.7 10^3/uL (1.5-5.0); LYMPH % 17.2 % (24.0-44.0); MEAN CORPUSCULAR HEMOGLOBIN 27.9 pg (27.0-33.0); MEAN CORPUSCULAR HGB CONC 31.4 g/dl (32.0-36.5); MEAN CORPUSCULAR VOLUME 88.8 fl (80.0-96.0); MONO % 6.1 % (0.0-5.0); NEUTROPHILS # 11.7 10^3/uL (1.5-8.5); NEUTROPHILS % 74.5 % (36.0-66.0); PLATELET COUNT, AUTOMATED 273 10^3/uL (150-450); RED BLOOD COUNT 4.99 10^6/uL (4.30-6.10); WHITE BLOOD COUNT 15.7 10^3/uL (4.0-10.0)
[2020-08-20] MEDS ORDERED: ISOVUE-370 76% 100ML VIAL As Ordered ONE (18:32)
[2020-08-20 18:37] LABS: ALBUMIN 3.2 GM/DL (3.2-5.2); ALT/SGPT 28 U/L (12-78); BILIRUBIN,DIRECT 0.2 MG/DL (0.0-0.2); BILIRUBIN,TOTAL 0.7 MG/DL (0.2-1.0); NT-PRO BNP 983 PG/ML (<125); THYROID STIMULATING HORMONE 0.674 uIU/ML (0.358-3.740); THYROXINE (T4) 11.2 UG/DL (4.5-12.0); TOTAL PROTEIN 7.1 GM/DL (6.4-8.2)
[2020-08-20 19:07] LABS: BLOOD UREA NITROGEN 25 MG/DL (7-18); CALCIUM LEVEL 9.1 MG/DL (8.8-10.2); CARBON DIOXIDE LEVEL 27 MEQ/L (21-32); CHLORIDE LEVEL 106 MEQ/L (98-107); CREATININE FOR GFR 1.02 MG/DL (0.70-1.30); GLOMERULAR FILTRATION RATE > 60.0 (>49); GLUCOSE, FASTING 117 MG/DL (70-100); POTASSIUM SERUM 3.8 MEQ/L (3.5-5.1); SODIUM LEVEL 142 MEQ/L (136-145)
--- NOTE | 2020-08-20 19:44 | REPVR ---
PROCEDURE INFORMATION: Exam: CT Angiography Chest With Contrast Exam date and time: 08/20/2020 6:44 PM Age: 65 years old Clinical indication: Shortness of breath TECHNIQUE: Imaging protocol: Computed tomographic angiography of the chest with intravenous contrast. 3D rendering (Not supervised by radiologist): MIP and/or 3D reconstructed images were created by the technologist. Radiation optimization: All CT scans at this facility use at least one of these dose optimization techniques: automated exposure control; mA and/or kV adjustment per patient size (includes targeted exams where dose is matched to clinical indication); or iterative reconstruction. Contrast material: ISOVUE 370; Contrast volume: 75 ml; Contrast route: INTRAVENOUS (IV); COMPARISON: CT ANGIO CHEST 11/17/2019 2:12 PM FINDINGS: Tubes, catheters and devices: A left subclavian pacemaker device is noted with leads in the right ventricle and left ventricular epicardial vein. Pulmonary arteries: No pulmonary embolism. Aorta: The thoracic aorta is intact and patent. There is no thoracic aortic aneurysm, pseudoaneurysm, penetrating atherosclerotic ulcer, intramural hematoma, or dissection. There are mild atherosclerotic calcifications. Great vessels off aortic arch: The brachiocephalic artery, imaged proximal portions of the common carotid arteries, imaged proximal portions of the vertebral arteries, and subclavian arteries are intact. No stenosis or occlusion of these vessels is noted. Tracheobronchial tree: Intact and patent. Lungs: There are ground-glass opacities with areas of superimposed consolidation and intralobular septal thickening (?crazy-paving?) in the right upper lobe, right middle lobe, right lower lobe, left upper lobe, lingula, and left lower lobe. There has been mildly improved aeration in the right middle lobe, right lower lobe, left upper lobe, lingula, and left lower lobe since the prior CTA chest on 11/17/2019. Similar findings were also present in the CTA chest on 10/17/2019. Pleural space: Normal. No pneumothorax or pleural effusion. Heart: Postoperative changes are noted from a CABG. Right atrium is dilated. No pericardial effusion is present. Coronary artery stents are in place. Mediastinal clips are present. Mediastinal space: No mediastinal mass, fluid collection, or pneumomediastinum. Lymph nodes: There is lower right paratracheal, subcarinal, and bilateral hilar lymphadenopathy, which is stable compared to the prior CTA chest on 11/17/2019 and 10/17/2019. Bones/joints: There is no acute fracture. There are chronic healed fracture deformities of the right anterior 3rd, 4th, 5th, 6, and 7th ribs. Intact median sternotomy suture wires are noted fixating a healed median sternotomy. Soft tissues: There is moderate bilateral gynecomastia. IMPRESSION: 1. No pulmonary embolism. 2. Ground-glass opacities with areas of superimposed consolidation and intralobular septal thickening (?crazy-paving?) in both lungs, with mildly improved aeration compared to the prior CTA chest on 11/17/2019. Similar findings were also present in the CTA chest on 10/17/2019. Commonly reported imaging features of COVID-19 pneumonia are present. Other processes such as influenza pneumonia, pulmonary alveolar proteinosis, and organizing pneumonia, as can be seen with drug toxicity and connective tissue disease, can cause a similar imaging pattern. (Reference: Ole) 3. Mediastinal bilateral hilar lymphadenopathy, which is stable compared to the prior CTA chest on 11/17/2019 and 10/17/2019. REFERENCES: Ole Henley, et al., Radiological Society of [place] Expert Consensus Statement on Reporting Chest CT Findings Related to COVID-19. Endorsed by the Society of Thoracic Radiology, the [employer], and RSNA. Published December 21, 2019. Electronically signed by: Gael Bolden On 08/20/2020 19:44:09 PM
[2020-08-20] MEDS ORDERED: MAALOX 30 ML SUSP *UDC PO PRN (20:30)
[2020-08-20] MEDS ORDERED: ACETAMINOPHEN TAB 650MG DOSE (2X325MG) PO PRN (20:30)
[2020-08-20] MEDS ORDERED: MOM 30ML SUSPENSION UDC PO PRN (20:30)
--- NOTE | 2020-08-20 20:30 | HPEPDOC ---
[facility] Medical History & Physical Date of Admission Aug 20, 2020 Date of Service: Aug 20, 2020 Other Provider Garett Blue MD Attending Physician: JEANNE VELAZQUEZ MD History and Physical TIME OF SERVICE: 1005pm CHIEF COMPLAINT: dyspnea HISTORY OF PRESENT ILLNESS: This 65-year-old gentleman presented with complaints of worsening shortness of breath for the last week. .He has a pulse oximeter and noticed that his O2 sats were as low as 83%; he talked to somebody from either his primary care director of housing and energy services office who recommended that he come in to the hospital for evaluation. He denied having associated fevers, cough, runny nose, or sick contacts. He had chills and developed a sore throat earlier on today. REVIEW OF SYSTEMS: 12 point review of systems negative except as listed in HPI PAST MEDICAL/ SURGICAL HISTORY: Atrial fibrillation Sys/tom CHF (Echo Sep 2019 EF recovered to 50%, has Pacemaker w defib (ICD lead in RV and Pacer lead in LV) / Cor pulmonale Amiodarone-induced lung toxicity Chronic CAD / CABG / hx of stent placement Hypothyroidism Bilateral venous stasis BPH Morbid obesity w hx of gastric bypass LENA, on CPAP Hx of debridement to manage RLE necrosis / hematoma Hx of left first MCP MRSA-positive osteomyelitis SOCIAL HISTORY: Previous smoker, quit many years ago, smoked 2 packs per day for over 30 years Denies alcohol and recreational drug use FAMILY HISTORY: Mother had heart disease Father had colon cancer SOCIAL HISTORY: He doesn't smoke ALLERGIES: Please see below. HOME MEDICATIONS: Please see below. PHYSICAL EXAMINATION: VITAL SIGNS: Please see below. GEN: well nourished / well developed/ NAD INTEGUMENT: he doesn't have facial plethora / he has spider angiomata on his cheeks HEENT:NCAT / lips are not cyanotic / he doesn't have pursed lip breathing / NC in place CVS: RRR/ NMRG/ radial and dorsalis pedis pulses intact / no lower extremity edema LUNGS: he doesn't have nasal flaring / he is able to speak full sentences without stopping to take a breath / he is not using accessory muscles / there is decreased respiratory expansion & breath sounds are diminished ABDOMEN: obese MSK/EXTREMITIES: seated in up on hospital bed/ range of motion intact in all 4 extremities NEURO: CN 2-12 are grossly intact / speech is not dysarthric PSYCH: alert and oriented to person place and time/ able to understand and follow all commands LABORATORY DATA: See below. IMAGING: CT chest "1. No pulmonary embolism. 2. Ground-glass opacities with areas of superimposed consolidation and intralobular septal thickening (?crazy-paving?) in both lungs, with mildly improved aeration compared to the prior CTA chest on 11/17/2019. Similar findings were also present in the CTA chest on 10/17/2019. Commonly reported imaging features of COVID-19 pneumonia are present. Other processes such as influenza pneumonia, pulmonary alveolar proteinosis, and organizing pneumonia, as can be seen with drug toxicity and connective tissue disease, can cause a similar imaging pattern." MICROBIOLOGY: Please see below. ASSESSMENT: Mr. Catherine is a 65-year-old with a history of, a fib, sys/tom CHF, Pacemaker w defib, hx of Amiodarone-induced lung toxicity, Chronic CAD, Hypothyroidism, Bilateral venous stasis, Morbid obestiy w hx of gastric bypss, LENA, and chronic RLE wound who presented with complaints of dyspnea and will be admitted for e valuation of dyspnea and SIRS. PLAN: 1. Dyspnea It is possible that his symptoms are due to another process such as idiopathic pulmonary fibrosis, cryptogenic organizing pneumonia or idiopathic nonspecific interstitial pneumonia. The respiratory panel including COVID was unremarkable, the BNP was 900, which is lower than it was during previous visits, there was no mention of pulmonary edema or PE on CT of the chest and clinically he does not appear to be fluid overloaded. 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 Plan: admit to PCU / solumedrol / will ask the day time team to consult Pulm for co-management (ie decide if he is continue high-dose steroids and/or have a workup for autoimmune conditions) 2. SIRS Possibly reactive vs 2/2 occult infection SIRS criteria include HR >90 / RR > 20 Lactic acid <2 Plan: /f/u blood cx, UA w Cx and sputum Cx 3. RLE wound Plan: The patient will call his to get specific instructions regarding wound care for the RNs, if he is unable to get these instructions, the daytime team may consider consulting Dr. Deluca for wound care instructions 4. Atrial fibrillation Plan: Digoxin, metoprolol, apixaban 5. HFpEF with HF w recovered EF / Cor pulmonale Plan: Metoprolol, digoxin, furosemide , Sacubitril/Valsartan 6. Chronic CAD / CABG / hx of stent placement Plan: Aspirin, metoprolol, rosuvastatin, nitroglycerin 7. Hypothyroidism. Plan: Levothyroxine 8. BPH Plan: Finasteride and tamsulosin 9. Class 3 obesity w LENA His BMI is 51 which complicates care He has a hx of gastric bypass Plan: CPAP DVT PROPHYLAXIS: n/a on NOAC DISPOSITION: home after more than 2 midnight's stay Vital Signs Vital Signs Date Time Temp Pulse Resp B/P (MAP) Pulse Ox O2 Delivery O2 Flow Rate FiO2 08/20/20 16:49 Room Air 08/20/20 16:49 08/20/20 16:45 96.0 101 22 95 4.0 Laboratory Data Labs 24H Laboratory Tests 2 08/20/20 17:14: POC pH (Misc Panel) 7.438, POC Base Excess (Misc Panel) 1.0, POC Saturated Percent O2 (Misc) 97, POC pO2 (Misc Panel) 86.0, POC pCO2 (Misc Panel) 37.8, POC HCO3 (Misc Panel) 25.5, POC Total CO2 (Misc Panel) 27.0 08/20/20 17:44: Immature Granulocyte % (Auto) 1.1, Neutrophils (%) (Auto) 74.5H, Lymphocytes (%) (Auto) 17.2L, Monocytes (%) (Auto) 6.1H, Eosinophils (%) (Auto) 0.8, Basophils (%) (Auto) 0.3, Neutrophils # (Auto) 11.7H, Lymphocytes # (Auto) 2.7, Monocytes # (Auto) 1.0H, Eosinophils # (Auto) 0.1, Basophils # (Auto) 0.0, Nucleated Red Blood Cells % (auto) 0.0, Anion Gap 9, Glomerular Filtration Rate > 60.0, Lactic Acid Level 1.9, Calcium Level 9.1, Total Bilirubin 0.7, Direct Bilirubin 0.2, Aspartate Amino Transf (AST/SGOT) 21, Alanine Aminotransferase (ALT/SGPT) 28, Alkaline Phosphatase 140H, MI-Lpv-C-Type Natriuretic Peptide 983H, Total Protein 7.1, Albumin 3.2, Albumin/Globulin Ratio 0.8, Thyroid Stimulating Hormone (TSH) 0.674, Thyroxine (T4) 11.2 CBC/BMP Laboratory Tests 08/20/20 17:44 Microbiology Microbiology 08/20/20 Respiratory Virus Panel (PCR) (SHAWNA), Received Pending 08/20/20 Blood Culture, Received Pending 08/20/20 Blood Culture, Received Pending Home Medications Scheduled Apixaban (Eliquis) 5 Mg Tablet, 5 MG PO BID Aspirin (Aspirin EC) 81 Mg Tabec, 81 MG PO QHS Calcium Citrate/Vitamin D3 (Calcium Citrate-Vit D3 Tablet) 1 Tab Tab, 2 TAB PO QHS Cholecalciferol (Vitamin D3) (Vitamin D3) 1,000 Unit Tablet, 5,000 UNITS PO DAILY Cranberry Conc/Ascorbic Acid (Cranberry 12,600 mg Softgel) 1 Each Capsule, 25,200 MG PO DAILY Cyanocobalamin (Vitamin B-12) (Vitamin B-12) 500 Mcg Tab, 1,000 MCG PO DAILY Digoxin (Digoxin) 125 Mcg Tab, 125 MCG PO DAILY Docusate Sodium (Colace) 100 Mg Capsule, 100 MG PO QHS Ferrous Fumarate (Ferrous Fumarate) 324 Mg Tablet, 324 MG PO QHS Finasteride (Finasteride) 5 Mg Tab, 5 MG PO DAILY Fish Oil/Dha/Epa (Fish Oil 1,200 mg Fish Oil) 1 Each Capsule, 1 CAP PO DAILY Fluticasone Propionate (Flonase Allergy Relief) 50 Mcg/Act Spr, 2 SPRAYS NARES QHS Furosemide (Furosemide) 40 Mg Tab, 40 MG PO DAILY Gabapentin (Gabapentin) 300 Mg Capsule, 300 MG PO DAILY Levothyroxine Sodium (Levothyroxine Sodium) 200 Mcg Tablet, 200 MCG PO DAILY TAKES WITH 50 MCG TAB TO EQUAL 250MCG Levothyroxine Sodium (Levothyroxine Sodium) 50 Mcg Tablet, 50 MCG PO DAILY TAKES WITH 200 MCG TO EQUAL 250 MCG Loratadine (Loratadine) 10 Mg Tab, 10 MG PO QHS Metoprolol Tartrate (Metoprolol Tartrate) 50 Mg Tablet, 75 MG PO BID Multivitamins (Child Chew Vitamin) 1 Tab Chew, 2 TAB PO QPM Pantoprazole Sodium (Pantoprazole Sodium) 40 Mg Tab, 40 MG PO QPM Potassium Chloride (Klor-Con M10) 10 Meq Tabcr, 10 MEQ PO QPM Prednisone (Prednisone) 10 Mg Tablet, 10 MG PO DAILY Rosuvastatin Calcium (Crestor) 20 Mg Tab, 20 MG PO QHS Sacubitril/Valsartan (Entresto 24 mg-26 mg Tablet) 1 Each Tablet, 1 TAB PO BID Tamsulosin HCl (Flomax) 0.4 Mg Cap, 0.4 MG PO DAILY Scheduled PRN Nitroglycerin (Nitrostat) 0.4 Mg Subl, 0.4 MG SL NITRO PRN for CHEST PAIN Allergies Coded Allergies: amiodarone (Verified Allergy, Severe, respiratory issues, 11/17/19) A-FIB/CHADSVASC A-FIB History Current/History of A-Fib/PAF?: Yes Current PO Anticoag Therapy: Yes JEANNE VELAZQUEZ MD Aug 20, 2020 20:29
[2020-08-20] MEDS ORDERED: METO50TA7 PO (20:48)
[2020-08-20] MEDS ORDERED: KP F1200 PO (20:48)
[2020-08-20] MEDS ORDERED: methylPREDNISolone 1,000 MG, VIAL MATE ADAPTER 1 EACH in D5W 250 ML IV ONE (21:00)
[2020-08-20] MEDS ORDERED: FLUTICASONE PROP 0.05% NASAL SPRAY 16 GM (FLONASE) NARES SCH (21:00)
--- NOTE | 2020-08-20 22:13 | ECGEPIP ---
[facility] - ED Test Date: 2020-08-20 Pat Name: JANES CURIEL Department: Room: - Gender: Male [employer]: SELENE : 1955 Requested By: Gabbie Fish Order Number: [id number] Reading MD: Deniz Munoz Measurements Intervals [place] Rate: 93 P: [place]: 0 QRS: 205 QRSD: 165 T: 58 QT: 398 QTc: 497 Interpretive Statements ELECTRONIC VENTRICULAR PACEMAKER RIGHT BUNDLE BRANCH BLOCK SIMILAR TO 05/17/20 Electronically Signed on 08-20-2020 22:12:56 EST by Deniz Munoz
[2020-08-21 00:13] VITALS: BP 139/81; O2SAT 91
[2020-08-21] MEDS ORDERED: POTASSIUM CHLORIDE 10 MEQ SR TABLET PO SCH (00:15)
[2020-08-21] MEDS ORDERED: PANTOPRAZOLE 40MG TAB (PROTONIX) PO SCH (00:15)
[2020-08-21] MEDS ORDERED: MULTIVITAMINS CHILDREN'S CHEWABLE TABLET PO SCH (00:15)
[2020-08-21] MEDS ORDERED: ASPIRIN 81 MG ENTERIC TAB PO SCH (00:15)
[2020-08-21] MEDS ORDERED: FERROUS SULFATE 325MG TAB PO SCH (00:15)
[2020-08-21] MEDS ORDERED: DOCUSATE SODIUM 100 MG CAP PO SCH (00:15)
[2020-08-21] MEDS ORDERED: LORATADINE 10 MG TAB PO SCH (00:15)
[2020-08-21] MEDS ORDERED: NITROGLYCERIN 0.4 MG SUBL TABLET SL PRN (00:15)
[2020-08-21] MEDS ORDERED: CALCIUM/VITAMIN D 500 MG TAB PO SCH (00:15)
[2020-08-21] MEDS ORDERED: ROSUVASTATIN 10 MG TAB (CRESTOR) PO SCH (00:15)
[2020-08-21 01:00] VITALS: O2SAT 92
[2020-08-21] MEDS: ENTRESTO 24-26MG TABLET (SACUBITRIL/VALSARTAN) PO SCH ×2 (01:01→08:36)
[2020-08-21] MEDS: APIXABAN 5 MG TAB (ELIQUIS) PO SCH ×2 (01:02→08:37)
[2020-08-21] MEDS: METOPROLOL TART 25 MG TABLET PO SCH ×2 (01:02→08:36)
[2020-08-21 02:00] VITALS: O2SAT 96
[2020-08-21] MEDS ORDERED: FUROSEMIDE 40MG/4ML VIAL (J1940) IV ONE (03:00)
[2020-08-21 04:00] VITALS: BP 107/52
[2020-08-21 05:00] LABS: HEMATOCRIT 42.4 % (42.0-52.0); HEMOGLOBIN 13.2 g/dl (13.5-17.5); MEAN CORPUSCULAR HEMOGLOBIN 27.5 pg (27.0-33.0); MEAN CORPUSCULAR HGB CONC 31.1 g/dl (32.0-36.5); MEAN CORPUSCULAR VOLUME 88.3 fl (80.0-96.0); PLATELET COUNT, AUTOMATED 266 10^3/uL (150-450); WHITE BLOOD COUNT 12.9 10^3/uL (4.0-10.0)
[2020-08-21 05:22] LABS: BLOOD UREA NITROGEN 25 MG/DL (7-18); CALCIUM LEVEL 8.8 MG/DL (8.8-10.2); CARBON DIOXIDE LEVEL 26 MEQ/L (21-32); CHLORIDE LEVEL 106 MEQ/L (98-107); CREATININE FOR GFR 1.06 MG/DL (0.70-1.30); GLOMERULAR FILTRATION RATE > 60.0 (>49); GLUCOSE, FASTING 178 MG/DL (70-100); SODIUM LEVEL 139 MEQ/L (136-145)
[2020-08-21] MEDS ORDERED: LEVOTHYROXINE 100MCG TABLET (0.1MG) PO SCH (06:00)
[2020-08-21] MEDS ORDERED: LEVOTHYROXINE 50MCG TABLET (0.05MG) PO SCH (06:00)
[2020-08-21 08:36] VITALS: BP 134/61
[2020-08-21 08:41] VITALS: BP 134/61
[2020-08-21] MEDS ORDERED: DIGOXIN 0.125 MG TAB PO SCH (09:00)
[2020-08-21] MEDS ORDERED: GABAPENTIN 300 MG CAP PO SCH (09:00)
[2020-08-21] MEDS ORDERED: FINASTERIDE 5 MG TAB PO SCH (09:00)
[2020-08-21] MEDS ORDERED: CYANOCOBALAMIN 500 MCG TAB PO SCH (09:00)
[2020-08-21] MEDS ORDERED: VITAMIN D 1,000 INTERNATIONAL UNITS TABLET PO SCH (09:00)
[2020-08-21] MEDS ORDERED: FUROSEMIDE 40 MG TAB PO SCH (09:00)
[2020-08-21] MEDS ORDERED: TAMSULOSIN 0.4 MG CAP PO SCH (09:00)
--- NOTE | 2020-08-21 16:08 | DS.PDOC ---
Discharge Summary General Date of Admission Aug 20, 2020 at 20:24 Date of Discharge 08/21/2020 Discharge Summary PROCEDURES PERFORMED DURING STAY: [None]. 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 Patient denied any chest pain or any significant change in his baseline cough. Denies any nausea, vomiting, belly pain, diarrhea, constipation, or urinary discomfort. She has been following with Dr. Deluca for chronic right leg wound that has improving appropriately. HOSPITAL COURSE: Shortness of breath - possibly 2/2 Amiodarone-induced lung toxicity - Patient reports that he does not experience any significant problems with his oxygen is on - Physical does not reveal any wheezing, rhonchi or crackles - Respiratory panel negative - CTA chest 08/21: 1. No pulmonary embolism. 2. Ground-glass opacities with areas of superimposed consolidation and intralobular septal thickening (?crazy- paving?) in both lungs, with mildly improved aeration compared to the prior CTA chest on 11/17/2019. Similar findings were also present in the CTA chest on 10/17/2019. Commonly reported imaging features of COVID-19 pneumonia are present. Other processes such as influenza pneumonia, pulmonary alveolar proteinosis, and organizing pneumonia, as can be seen with drug toxicity and connective tissue disease, can cause a similar imaging pattern. (Reference: Ole) 3. Mediastinal and bilateral hilar lymphadenopathy, which is stable compared to the prior CTA chest on 11/17/2019 and 10/17/2019. - s/p IV corticosteroids - c/w Prednisone at home dose - Upon ambulation. Patient's saturation was noted to drop to 84%, but recovered quickly on rest; will discharge patient with ambulatory oxygen via nasal cannula - Discussed with pulmonology, Dr. Richards; this point will continue with home r egimen of prednisone and outpatient oxygen via NC - Will have outpatient follow-up with PCP and pulmonary within the next 7 days Chronic right lower extremity wound - Hx of Bilateral venous stasis - Currently appears to be healing appropriately - Dressing changes have been completed inpatient based on outpatient directions from Dr. Deluca - Will have outpatient follow-up with Dr. Deluca Leukocytosis - possibly 2/2 reactive etiology - Currently trending down - Patient remains afebrile and hemodynamic stable - Respiratory panel 08/20: Negative - No antibiotics indicated at this time Atrial fibrillation - Continue with rate/rhythm control with digoxin and metoprolol - Continue with full anticoagulation with apixiban Sys/otm CHF - Echo Sep 2019 EF recovered to 50%, has Pacemaker w defib (ICD lead in RV and Pacer lead in LV) / Cor pulmonale - Currently does not appear to be in any exacerbation - Continue with metoprolol, digoxin, furosemide, and Entresto Chronic CAD / CABG / hx of stent placement - c/w ASA, Rosuvastatin, Metoprolol, Nitro PRN Hypothyroidism - Continue with levothyroxine BPH - Continue with finasteride and tamsulosin Morbid obesity w hx of gastric bypass - BMI of 51 complicating his medical care LENA on CPAP - May allow home CPAP use while inpatient Hx of left first MCP MRSA-positive osteomyelitis DVT prophylaxis - Continue with full anticoagulation with Eliquis DISCHARGE MEDICATIONS: Please see below. ALLERGIES: Please see below. PHYSICAL EXAMINATION ON DISCHARGE: Vitals (See below) General: Sitting up in bed, appears to be comfortable, speaking in long full sentences while off oxygen, AAOx3 HEENT: NC, AT CVS: +S1S2 Lungs: Fair air entry b/l, no auscultated rhonchi, rales or wheezing Abdomen: Soft, ND, NT, obese Extremities: No evidence of edema, - Calf tenderness LABORATORY DATA: Please see below. ACTIVITY: [As tolerated]. DISCHARGE PLAN: Follow-up with primary care provider, and pulmonology within the next 7 days Remain compliant with treatment plan and medications Return to the ER if you experience any problems DISPOSITION: Home with services DISCHARGE CONDITION: [Stable]. TIME SPENT ON DISCHARGE: 35 minutes. Vital Signs/I&Os Vital Signs Date Time Temp Pulse Resp B/P (MAP) Pulse Ox O2 Delivery O2 Flow Rate FiO2 08/21/20 08:41 69 18 134/61 (85) 93 Nasal Cannula 2.0 11/24/20 04:00 97.2 I&O- Last 24 Hours up to 6 AM 08/21/20 06:00 Intake Total 1066 ml Output Total 150 ml Balance 916 ml Laboratory Data Labs 24H Laboratory Tests 2 08/20/20 17:14: POC pH (Misc Panel) 7.438, POC Base Excess (Misc Panel) 1.0, POC Saturated Percent O2 (Misc) 97, POC pO2 (Misc Panel) 86.0, POC pCO2 (Misc Panel) 37.8, POC HCO3 (Misc Panel) 25.5, POC Total CO2 (Misc Panel) 27.0 08/20/20 17:44: Immature Granulocyte % (Auto) 1.1, Neutrophils (%) (Auto) 74.5H, Lymphocytes (%) (Auto) 17.2L, Monocytes (%) (Auto) 6.1H, Eosinophils (%) (Auto) 0.8, Basophils (%) (Auto) 0.3, Neutrophils # (Auto) 11.7H, Lymphocytes # (Auto) 2.7, Monocytes # (Auto) 1.0H, Eosinophils # (Auto) 0.1, Basophils # (Auto) 0.0, Nucleated Red Blood Cells % (auto) 0.0, Anion Gap 9, Glomerular Filtration Rate > 60.0, Lactic Acid Level 1.9, Calcium Level 9.1, Total Bilirubin 0.7, Direct Bilirubin 0.2, Aspartate Amino Transf (AST/SGOT) 21, Alanine Aminotransferase (ALT/SGPT) 28, Alkaline Phosphatase 140H, BM-Syf-E-Type Natriuretic Peptide 983H, Total Protein 7.1, Albumin 3.2, Albumin/Globulin Ratio 0.8, Thyroid Stimulating Hormone (TSH) 0.674, Thyroxine (T4) 11.2 08/20/20 17:53: POC Total CO2 (Misc Panel) 25.0, POC Glucose (Misc Panel) 122H, POC Sodium (Misc Panel) 142, POC Potassium (Misc Panel) 3.8, POC Chloride (Misc Panel) 102, POC Blood Urea Nitrogen (Misc Panel 24, POC Ionized Calcium (Misc Panel) 4.6, POC Creatinine (Misc Panel) 0.9, POC Hematocrit (Misc Panel) 44.0 08/20/20 17:55: POC Troponin I (Misc) 0.00 08/21/20 04:32: Nucleated Red Blood Cells % (auto) 0.0, Anion Gap 7L, Glomerular Filtration Rate > 60.0, Calcium Level 8.8 CBC/BMP Laboratory Tests 08/20/20 17:44 08/21/20 04:32 Microbiology Microbiology 08/20/20 Respiratory Virus Panel (PCR) (SHAWNA) - Final, Complete 08/20/20 Blood Culture, Received Pending 08/20/20 Blood Culture, Received Pending Discharge Medications Scheduled Apixaban (Eliquis) 5 Mg Tablet, 5 MG PO BID, (Reported) Aspirin (Aspirin EC) 81 Mg Tabec, 81 MG PO QHS, (Reported) Calcium Citrate/Vitamin D3 (Calcium Citrate-Vit D3 Tablet) 1 Tab Tab, 2 TAB PO QHS, (Reported) Cholecalciferol (Vitamin D3) (Vitamin D3) 1,000 Unit Tablet, 5,000 UNITS PO DAILY, (Reported) Cranberry Conc/Ascorbic Acid (Cranberry 12,600 mg Softgel) 1 Each Capsule, 25,200 MG PO DAILY, (Reported) Cyanocobalamin (Vitamin B-12) (Vitamin B-12) 500 Mcg Tab, 1,000 MCG PO DAILY, (Reported) Digoxin (Digoxin) 125 Mcg Tab, 125 MCG PO DAILY, (Reported) Docusate Sodium (Colace) 100 Mg Capsule, 100 MG PO QHS, (Reported) Ferrous Fumarate (Ferrous Fumarate) 324 Mg Tablet, 324 MG PO QHS, (Reported) Finasteride (Finasteride) 5 Mg Tab, 5 MG PO DAILY, (Reported) Fish Oil/Dha/Epa (Fish Oil 1,200 mg Fish Oil) 1 Each Capsule, 1 CAP PO DAILY, (Reported) Fluticasone Propionate (Flonase Allergy Relief) 50 Mcg/Act Spr, 2 SPRAYS NARES QHS, (Reported) Furosemide (Furosemide) 40 Mg Tab, 40 MG PO DAILY, (Reported) Gabapentin (Gabapentin) 300 Mg Capsule, 300 MG PO DAILY, (Reported) Levothyroxine Sodium (Levothyroxine Sodium) 200 Mcg Tablet, 200 MCG PO DAILY, (Reported) TAKES WITH 50 MCG TAB TO EQUAL 250MCG Levothyroxine Sodium (Levothyroxine Sodium) 50 Mcg Tablet, 50 MCG PO DAILY, (Reported) TAKES WITH 200 MCG TO EQUAL 250 MCG Loratadine (Loratadine) 10 Mg Tab, 10 MG PO QHS, (Reported) Metoprolol Tartrate (Metoprolol Tartrate) 50 Mg Tablet, 75 MG PO BID, (Reported) Multivitamins (Child Chew Vitamin) 1 Tab Chew, 2 TAB PO QPM, (Reported) Pantoprazole Sodium (Pantoprazole Sodium) 40 Mg Tab, 40 MG PO QPM, (Reported) Potassium Chloride (Klor-Con M10) 10 Meq Tabcr, 10 MEQ PO QPM, (Reported) Prednisone (Prednisone) 10 Mg Tablet, 10 MG PO DAILY, (Reported) Rosuvastatin Calcium (Crestor) 20 Mg Tab, 20 MG PO QHS, (Reported) Sacubitril/Valsartan (Entresto 24 mg-26 mg Tablet) 1 Each Tablet, 1 TAB PO BID, (Reported) Tamsulosin HCl (Flomax) 0.4 Mg Cap, 0.4 MG PO DAILY, (Reported) Scheduled PRN Nitroglycerin (Nitrostat) 0.4 Mg Subl, 0.4 MG SL NITRO PRN for CHEST PAIN, (Reported) Allergies Coded Allergies: amiodarone (Verified Allergy, Severe, respiratory issues, 11/17/19) FRANCESCA LOPES MD Aug 21, 2020 16:08
== END 2020-08-21 16:03 | disposition home or self-care (01) | DRG 206 ==
LOC: M ED 16:20 → M ED INP 20:24 → ENRESERV 23:12 → M ICU 08-21 00:05
PROVIDERS: ADMIT Internal Medicine; ATTEND Internal Medicine
DX: J70.3 Chronic drug-induced interstitial lung disorders (principal); R65.10 Systemic inflammatory response syndrome (SIRS) of non-infectious origin without acute organ dysfunction; I50.22 Chronic systolic (congestive) heart failure; Z68.43 Body mass index [BMI] 50.0-59.9, adult; Z20.828 Contact with and (suspected) exposure to other viral communicable diseases; I48.91 Unspecified atrial fibrillation; I25.10 Atherosclerotic heart disease of native coronary artery without angina pectoris; E03.9 Hypothyroidism, unspecified; I87.2 Venous insufficiency (chronic) (peripheral); N40.0 Benign prostatic hyperplasia without lower urinary tract symptoms; E66.01 Morbid (severe) obesity due to excess calories; G47.33 Obstructive sleep apnea (adult) (pediatric); Z98.84 Bariatric surgery status; Z95.0 Presence of cardiac pacemaker; Z87.891 Personal history of nicotine dependence; Z86.14 Personal history of Methicillin resistant Staphylococcus aureus infection; I27.81 Cor pulmonale (chronic); Z79.01 Long term (current) use of anticoagulants; Z79.82 Long term (current) use of aspirin; Z79.52 Long term (current) use of systemic steroids; Z79.899 Other long term (current) drug therapy; Z88.8 Allergy status to other drugs, medicaments and biological substances

== ENCOUNTER → 2020-09-18 | Outpatient (CLI) | payer MEDICARE, BC, OTHER ==
[~2020-09-18] MED LIST changes: +CYAN500T14 PO; -CYAN500T8 PO; +D31000TA2 PO
[2020-09-18 12:00] LABS: HEMATOCRIT 43.5 % (42.0-52.0); HEMOGLOBIN 13.4 g/dl (13.5-17.5); MEAN CORPUSCULAR HGB CONC 30.8 g/dl (32.0-36.5); MEAN CORPUSCULAR VOLUME 87.5 fl (80.0-96.0); PLATELET COUNT, AUTOMATED 251 10^3/uL (150-450); RED BLOOD COUNT 4.97 10^6/uL (4.30-6.10); WHITE BLOOD COUNT 14.7 10^3/uL (4.0-10.0)
[2020-09-18 12:37] LABS: ALBUMIN 3.3 GM/DL (3.2-5.2); ALT/SGPT 31 U/L (12-78); BILIRUBIN,TOTAL 1.1 MG/DL (0.2-1.0); BLOOD UREA NITROGEN 19 MG/DL (7-18); CALCIUM LEVEL 9.2 MG/DL (8.8-10.2); CARBON DIOXIDE LEVEL 29 MEQ/L (21-32); CHLORIDE LEVEL 104 MEQ/L (98-107); CHOLESTEROL LEVEL 115 MG/DL (<200); CHOLESTEROL RISK RATIO 2.948 (<5); GLOMERULAR FILTRATION RATE > 60.0 (>49); GLUCOSE, FASTING 124 MG/DL (70-100); HDL CHOLESTEROL 39 MG/DL (>40); LDL CHOLESTEROL 51 MG/DL (<100); NON-HDL-C 76 MG/DL; POTASSIUM SERUM 4.1 MEQ/L (3.5-5.1); SODIUM LEVEL 139 MEQ/L (136-145); TOTAL PROTEIN 7.4 GM/DL (6.4-8.2); TRIGLYCERIDES LEVEL 127 MG/DL (<150)
== END ==
LOC: M LAB 11:14
PROVIDERS: ATTEND Internal Medicine
DX: I50.9 Heart failure, unspecified (principal); E03.9 Hypothyroidism, unspecified; E78.5 Hyperlipidemia, unspecified

== ENCOUNTER 2021-01-20 08:02 | Emergency (ER) | payer MEDICARE, BC, OTHER ==
[~2021-01-20] VITALS: Ht 190.5 cm; Wt 191.3 kg
[~2021-01-20 08:02] MED LIST changes: -ACET-908 PO; +ACET-910 PO; +ASPI-569 PO; -ASPI81TAEC PO; +GABA-282 PO; -GABA-843 PO
[2021-01-20 08:54] LABS: BASO % 0.2 % (0.0-1.0); EOS # 0.3 10^3/uL (0.0-0.5); HEMATOCRIT 46.9 % (42.0-52.0); HEMOGLOBIN 14.8 g/dl (13.5-17.5); LYMPH # 1.2 10^3/uL (1.5-5.0); LYMPH % 7.3 % (24.0-44.0); MEAN CORPUSCULAR HEMOGLOBIN 28.5 pg (27.0-33.0); MEAN CORPUSCULAR HGB CONC 31.6 g/dl (32.0-36.5); MEAN CORPUSCULAR VOLUME 90.2 fl (80.0-96.0); MONO # 0.7 10^3/uL (0.0-0.8); MONO % 4.2 % (2.0-8.0); NEUTROPHILS # 14.3 10^3/uL (1.5-8.5); NEUTROPHILS % 85.8 % (36.0-66.0); PLATELET COUNT, AUTOMATED 218 10^3/uL (150-450); WHITE BLOOD COUNT 16.7 10^3/uL (4.0-10.0)
[2021-01-20] MEDS ORDERED: MORPHINE 4 MG/ML 1ML VIAL/SYRINGE (J2270) IV ONE ×2 (08:55→10:55)
[2021-01-20] MEDS ORDERED: ONDANSETRON 4MG/2ML VIAL IV ONE (08:55)
[2021-01-20] MEDS ORDERED: FLINCHW16 PO (09:28)
[2021-01-20] MEDS ORDERED: CLOT1CRE71 TOP (09:28)
[2021-01-20] MEDS ORDERED: LEVO25TA34 PO (09:28)
--- NOTE | 2021-01-20 09:28 | REP ---
INDICATION: short of breath COMPARISON: 08/20/2020 TECHNIQUE: Portable AP view of the chest FINDINGS: Diffuse bilateral airspace disease is again appreciated. No obvious effusion. No pneumothorax. Mediastinum and cardiac silhouette are relatively stable and cardiomegaly is again suggested. IMPRESSION: Moderate to significant bilateral airspace disease which may be slightly improved as compared with prior examination. <Electronically signed by Fred Small > 01/20/21 0924
[2021-01-20] MEDS ORDERED: PIPERACILLIN/TAZOBACTAM SOD 4.5 GM in D5W MINI-BAG PLUS 50 ML IV ONE (09:35)
--- NOTE | 2021-01-20 09:42 | REP ---
INDICATION: RUQ pain, vomiting, known gallstones, constant pain COMPARISON: 03/04/2019 TECHNIQUE: Real time cardenas scale ultrasound examination using curved array transducer. FINDINGS: Liver is increased in echotexture consistent with fatty infiltration. No focal hepatic lesion identified. The gallbladder is incompletely evaluated due to body habitus and technical limitations. The common bile duct is normal at 5.3 mm. Right kidney is normal in reniform shape without hydronephrosis and measures 13.0 x 5.5 x 5.9 cm . No ascites in the visualized right upper quadrant. IMPRESSION: Extremely limited examination. The gallbladder is incompletely evaluated. Hepatosteatosis noted. <Electronically signed by Fred Small > 01/20/21 0908
[2021-01-20 09:47] LABS: ALBUMIN 3.4 GM/DL (3.2-5.2); ALT/SGPT 486 U/L (12-78); BILIRUBIN,DIRECT 4.7 MG/DL (0.0-0.2); BILIRUBIN,TOTAL 7.7 MG/DL (0.2-1.0); BLOOD UREA NITROGEN 15 MG/DL (7-18); CALCIUM LEVEL 9.1 MG/DL (8.8-10.2); CARBON DIOXIDE LEVEL 30 MEQ/L (21-32); CHLORIDE LEVEL 99 MEQ/L (98-107); CK-MB VALUE MASS < 1.0 NG/ML (<3.6); CPK CREATINE PHOSPHOKINASE 73 U/L (39-308); CREATININE FOR GFR 1.09 MG/DL (0.70-1.30); GLOMERULAR FILTRATION RATE > 60.0 (>49); GLUCOSE, FASTING 158 MG/DL (70-100); LIPASE 47 U/L (73-393); MB/CK RELATIVE INDEX 1.37 (< OR =4); NT-PRO BNP 1324 PG/ML (<125); POTASSIUM SERUM 3.9 MEQ/L (3.5-5.1); SODIUM LEVEL 137 MEQ/L (136-145); TOTAL PROTEIN 7.5 GM/DL (6.4-8.2); TROPONIN I < 0.02 NG/ML (< 0.10)
[2021-01-20 10:16] LABS: INR 1.34; PROTHROMBIN TIME 16.9 SECONDS (12.5-14.3)
[2021-01-20 10:17] LABS: PARTIAL THROMBOPLASTIN TIME 38.3 SECONDS (24.2-38.5)
[2021-01-20 10:27] LABS: RSV AMPLIFICATION NEGATIVE (NEGATIVE)
--- NOTE | 2021-01-20 11:53 | ECGEPIP ---
[facility] - ED Test Date: 2021-01-20 Pat Name: JANES CURIEL Department: Room: - Gender: Male [employer]: : 1955 Requested By: LAURA Srivastava PA-C Order Number: [id number] Reading MD: Juanis Blanco Measurements Intervals [place] Rate: 104 P: [place]: QRS: -66 QRSD: 166 T: 66 QT: 380 QTc: 499 Interpretive Statements Ventricular-paced rhythm Electronically Signed on 01-20-2021 11:53:12 EDT by Juanis Blanco
[2021-01-20] MEDS ORDERED: NS IV ONE (12:20)
[2021-01-20] MEDS: NOREPINEPHRINE BITARTRATE 8 MG in D5W 492 ML IV SCH ×2 (13:47→13:58)
[2021-01-20 14:00] VITALS: BP 100/55
== END 2021-01-20 14:12 | disposition short-term general hospital (02) ==
LOC: M ED 08:02
DX: K80.50 Calculus of bile duct without cholangitis or cholecystitis without obstruction (principal); R17 Unspecified jaundice; A41.9 Sepsis, unspecified organism; I48.91 Unspecified atrial fibrillation; I50.9 Heart failure, unspecified; I25.10 Atherosclerotic heart disease of native coronary artery without angina pectoris; I10 Essential (primary) hypertension; K21.9 Gastro-esophageal reflux disease without esophagitis; E78.5 Hyperlipidemia, unspecified; E03.9 Hypothyroidism, unspecified; G47.33 Obstructive sleep apnea (adult) (pediatric); N40.0 Benign prostatic hyperplasia without lower urinary tract symptoms; Z87.448 Personal history of other diseases of urinary system; Z95.810 Presence of automatic (implantable) cardiac defibrillator; Z98.84 Bariatric surgery status; I51.7 Cardiomegaly; Z79.01 Long term (current) use of anticoagulants; Z79.82 Long term (current) use of aspirin; Z79.899 Other long term (current) drug therapy; Z88.8 Allergy status to other drugs, medicaments and biological substances
CPT/HCPCS: 36415; 71045; 76705; 80048; 80076; 81001; 82550; 82553; 83605; 83690; 83880; 84484; 85025; 85610; 85730; 87040; 87077; 87186; 87631; 93005; 93041; 94660; 94760; 96361; 96374; 99285; J2270; J2405; J2543

== ENCOUNTER 2021-02-08 10:37 | Inpatient (IN) | payer MEDICARE, BC, OTHER ==
[~2021-02-08] VITALS: Ht 190.5 cm; Wt 183.9 kg
[~2021-02-08 10:37] MED LIST changes: +FLINCHW16 PO; +LEVO25TA34 PO
[2021-02-08 23:19] VITALS: BP 142/80
[2021-02-09] MEDS ORDERED: ACETAMINOPHEN TAB 650MG DOSE (2X325MG) PO PRN (00:15)
[2021-02-09] MEDS ORDERED: MAALOX 30 ML SUSP *UDC PO PRN (00:15)
[2021-02-09] MEDS ORDERED: MOM 30ML SUSPENSION UDC PO PRN (00:15)
--- NOTE | 2021-02-09 00:52 | HPEPDOC ---
[facility] Medical History & Physical Date of Admission February 09, 2021 Date of Service: February 09, 2021 Attending Physician: JEANNE VELAZQUEZ MD History and Physical CHIEF COMPLAINT: [65 y/o male transfer from [facility] for continued tx of liver abscesses] HISTORY OF PRESENT ILLNESS: [This is a 65 y/o male with a pmh of cardiac arrest, cad s/p cabg, chf, pvd, hld, a-fib, htn, lena, gerd, obesity s/p gastric bypass, bph, hypothyroidism and COPD who originally presented to our ED on 01/09. Patient at that time was found to have possible choledocholithiasis and transaminitis but was subsequently transferred to [facility] d/t septic shock. At [facility], patient was initially placed on pressors and IV abx. Patient's blood cultures grew pseudomonas. Patient underwent cholecystectomy tube placement and liver abscess drainage by IR on 01/30 and cultures from this procedure grew jennifer. Patient still has cholecystectomy tube with drainage bag in place. Patient was eventually stabilized by [facility] and transferred back to us for continued medical management of liver abscess as well as PT/OT. Infectious disease at [facility] recommended 4 weeks of diflucan and 6 weeks of meropenem. As of my examination of patient. He states that he feels much better than how he did upon his transfer to [facility]. Patient states that he does not have much abdominal pain or nausea/vomiting at this point in time. Patient states that his main complaints at this point are his weakness he has developed due to deconditioning secondary to his critical illness. Patient denies current fevers, chills, abd pain, chest pain, sob, n/v. Patient states he has been experiencing some mild diarrhea that he blames on his antibiotics. Patient is requesting a puga catheter as he is unable to get up to make it to the bathroom easily.] PAST MEDICAL HISTORY: 1. [See HPI PAST SURGICAL HISTORY: 1. [b/l cataract removal]. 2. [CABG]. 3. [Coronary stent placement 4. ICD placement 5. Pacemaker placement 6. Gastric bypass 7. Cystoscopy with urethral dilation 8. Debridement of right foot ulcer x3]. SOCIAL HISTORY: Tobacco use:[Denies] ETOH: [Denies] Illicit drug use: [Denies] FAMILY HISTORY: HTN, CAD ALLERGIES: Please see below. REVIEW OF SYSTEMS: CONSTITUTIONAL: [Denies fever, chills]. HEENT: [Denies uri sx]. CARDIOVASCULAR: [Denies chest pain, palpitations]. RESPIRATORY: [Denies sob, wheezing]. GASTROINTESTINAL: [Admits to diarrhea. Denies abd pain, nausea, vomiting]. GENITOURINARY: [Denies dysuria]. SKIN: [Denies rash]. MUSCULOSKELETAL: [Denies acute joint/back pain]. NEUROLOGICAL: [Denies paresthesias]. ENDOCRINE: [States he has hx of prediabetes]. HEMATOLOGIC/LYMPHATIC: [Denies easy bruising]. HOME MEDICATIONS: Please see below. PHYSICAL EXAMINATION: VITAL SIGNS: Please see below. GENERAL APPEARANCE: [This is an obese 65 y/o male. He is resting in bed and does not appear to be in any acute distress.]. HEENT: [No mass or lesion. No scleral icterus or conjunctival erythema. EOMI. Nares patent. Oral mucosa moist without erythema.]. CARDIOVASCULAR: [Regular rate, rhythm. No murmurs, rubs, gallops]. LUNGS: [Good airflow auscultated b/l. No wheezing, rales, rhonchi.]. ABDOMEN: [Soft, nontender]. MUSCULOSKELETAL: [No joint deformity noted]. EXTREMITIES: [Moderate peripheral edema noted. No overlying skin changes. Pulses intact.]. NEUROLOGICAL: [Speech clear. A+Ox3. No focal deficits]. PSYCHIATRIC: [Mood and affect appear appropriate.]. LABORATORY DATA: See below. MICROBIOLOGY: Please see below. ASSESSMENT: [This is a 65 y/o male with a pmh of cardiac arrest, cad s/p cabg, chf, pvd, hld, a-fib, htn, lena, gerd, obesity s/p gastric bypass, bph, hypothyroidism and COPD who originally presented to our ED on 01/09 but was transferred out for management of choledocholithiasis, transaminitis and septic shock. Patient was stabilized at [facility] where he spent his initial days in ICU until he underwent cholecystectomy tube placement and liver abscess drainage on 01/30. Patient has been medically managed by [facility] team and started on meropenem and diflucan for mixed pseudomonas bacteremia and systemic jennifer. ID at [facility] recommended meropenem for 6 weeks and diflucan for 4 weeks. Patient has been transferred back to us for continued medical management as well as pt/ot for deconditioning secondary to prolonged critical illness]. . PLAN: 1. [Liver abscess - Patient grew pseudomonas on blood cultures as well as grew jennifer on abscess cultures at [facility] - Will continue diflucan and meropenem per [facility] recommendations for now - Will continue prednisone taper started at [facility] - Day team should consider ID consult - Will administer pain/nausea control as needed - Will trend white count - Can consider repeat liver US to monitor abscess - Admit to med surg for continued IV abx 2. Deconditioning - PT/OT consult placed 3. CHF - Patient appears somewhat volume overloaded on exam. Patient states that many o f his cardiac medications were held at [facility] due to his illness - Will restart lasix, entresto. may need to increase dose of lasix temporarily - Will continue metoprolol 4. CAD - Will restart nitro 5. HLD - continue rosuvastatin, fish oil 6. A-fib - Continue eliquis, digoxin, metoprolol 7. HTN - metoprolol, entresto, lasix 8. LENA - at home cpap 9. GERD - continue protonix 10. BPH - continue flomax, finasteride 11. Hypothyroidism - continue levothyroxine 12. COPD - patient receiving supplemental O2 for now. should be weaned off and transitioned to inhaler therapy if needed 13. Allergies - continue loratidine, flonase 14. DVT prophylaxis - pt on eliquis]. Home Medications Scheduled Apixaban (Eliquis) 5 Mg Tablet, 5 MG PO BID Aspirin (Aspirin EC) 81 Mg Tabec, 81 MG PO QHS Calcium Citrate/Vitamin D3 (Calcium Citrate-Vit D3 Tablet) 1 Tab Tab, 2 TAB PO QHS Cholecalciferol (Vitamin D3) (Vitamin D3) 1,000 Unit Tablet, 5,000 UNITS PO DAILY Cranberry Conc/Ascorbic Acid (Cranberry 12,600 mg Softgel) 1 Each Capsule, 25,200 MG PO DAILY Digoxin (Digoxin) 125 Mcg Tab, 125 MCG PO DAILY Docusate Sodium (Colace) 100 Mg Capsule, 100 MG PO QHS Ferrous Fumarate (Ferrous Fumarate) 324 Mg Tablet, 324 MG PO DAILY Finasteride (Finasteride) 5 Mg Tab, 5 MG PO DAILY Fish Oil/Dha/Epa (Fish Oil 1,200 mg Fish Oil) 1 Each Capsule, 1 CAP PO DAILY Fluticasone Propionate (Flonase Allergy Relief) 50 Mcg/Act Spr, 2 SPRAYS NARES QHS Furosemide (Furosemide) 40 Mg Tab, 40 MG PO DAILY Gabapentin (Gabapentin) 300 Mg Capsule, 300 MG PO BID Levothyroxine Sodium (Levothyroxine Sodium) 200 Mcg Tablet, 200 MCG PO DAILY 225MCG TOTAL DAILY Levothyroxine Sodium (Levoxyl) 25 Mcg Tablet, 25 MCG PO DAILY 225MCG TOTAL DAILY Loratadine (Loratadine) 10 Mg Tab, 10 MG PO QHS Metoprolol Tartrate (Metoprolol Tartrate) 50 Mg Tablet, 75 MG PO BID Pantoprazole Sodium (Pantoprazole Sodium) 40 Mg Tab, 40 MG PO QPM Pediatric Multivitamin No.49 (Flintstones Gummies) 1 Each Tab.chew, 2 CHW PO QPM Potassium Chloride (Klor-Con M10) 10 Meq Tabcr, 10 MEQ PO QPM Prednisone (Prednisone) 10 Mg Tablet, 10 MG PO DAILY Rosuvastatin Calcium (Crestor) 20 Mg Tab, 20 MG PO QHS Sacubitril/Valsartan (Entresto 24 mg-26 mg Tablet) 1 Each Tablet, 1 TAB PO BID Tamsulosin HCl (Flomax) 0.4 Mg Cap, 0.4 MG PO DAILY Scheduled PRN Clotrimazole/Betamethasone Dip (Clotrimazole-Betamethasone Crm) 15 Gm Cream..g., 1 DOSE TOP BID PRN for RASH/ITCHING Nitroglycerin (Nitrostat) 0.4 Mg Subl, 0.4 MG SL NITRO PRN for CHEST PAIN Allergies Coded Allergies: amiodarone (Verified Allergy, Severe, respiratory issues, 11/17/19) A-FIB/CHADSVASC A-FIB History Current/History of A-Fib/PAF?: Yes Current PO Anticoag Therapy: Yes Attending Note Attending Note 1205am Mr. Catherine is a 65 yr old w CAD/CABG, A fib, BPH, hx of SCA w subsequent ICD/pacer implantation, PVD, DLP, CHF, HTN, LENA, obesity s/p gastric bypass, Hypothyrodism, COPD & hx of L first MCP osteomyelitis who was transferred from our ED to [facility] for evaluation of transaminitis; he was diagnosed w septic shock, pseudomonas & jennifer bacteremia, liver abscess and had a cholecystectomy tube placed. We will continue his abx and ask the day time team consult ID and PMNR. rest per AYANA Orozco's H&P KARLO OROZCO February 09, 2021 00:52 JEANNE VELAZQUEZ MD February 09, 2021 02:59
[2021-02-09] MEDS ORDERED: CLOTRIMAZOLE 1% TOPICAL CREAM 30GM TOP PRN (01:00)
[2021-02-09] MEDS ORDERED: NITROGLYCERIN 0.4 MG SUBL TABLET SL PRN (01:00)
[2021-02-09] MEDS ORDERED: SODIUM CHLORIDE 0.9% INJ 10 ML SYR IV PRN ×2 (03:35→04:35)
[2021-02-09 03:43] LABS: HEMATOCRIT 33.1 % (42.0-52.0); HEMOGLOBIN 10.1 g/dl (13.5-17.5); MEAN CORPUSCULAR HEMOGLOBIN 28.5 pg (27.0-33.0); MEAN CORPUSCULAR HGB CONC 30.5 g/dl (32.0-36.5); MEAN CORPUSCULAR VOLUME 93.2 fl (80.0-96.0); PLATELET COUNT, AUTOMATED 284 10^3/uL (150-450); RED BLOOD COUNT 3.55 10^6/uL (4.30-6.10); WHITE BLOOD COUNT 14.8 10^3/uL (4.0-10.0)
[2021-02-09 03:57] LABS: HEMOGLOBIN A1c 5.4 %
[2021-02-09 04:09] LABS: ALBUMIN 2.2 GM/DL (3.2-5.2); ALT/SGPT 92 U/L (12-78); BILIRUBIN,TOTAL 6.8 MG/DL (0.2-1.0); BLOOD UREA NITROGEN 25 MG/DL (7-18); CALCIUM LEVEL 8.6 MG/DL (8.8-10.2); CARBON DIOXIDE LEVEL 34 MEQ/L (21-32); CHLORIDE LEVEL 102 MEQ/L (98-107); GLOMERULAR FILTRATION RATE > 60.0 (>49); GLUCOSE, FASTING 78 MG/DL (70-100); MAGNESIUM LEVEL 1.8 MG/DL (1.8-2.4); SODIUM LEVEL 140 MEQ/L (136-145); TOTAL PROTEIN 6.1 GM/DL (6.4-8.2)
[2021-02-09 06:00] VITALS: BP 117/56
[2021-02-09] MEDS: MEROPENEM INJ 2 GM in NS 100 ML IV SCH ×3 (06:36→21:40)
[2021-02-09] MEDS: LEVOTHYROXINE 25MCG TABLET (0.025MG) PO SCH (06:37)
[2021-02-09] MEDS: SODIUM CHLORIDE 0.9% INJ 10 ML SYR IV SCH ×3 (06:37→21:41)
[2021-02-09] MEDS: LEVOTHYROXINE 100MCG TABLET (0.1MG) PO SCH (06:37)
[2021-02-09] MEDS ORDERED: METOPROLOL TART 25 MG TABLET PO SCH (09:00)
[2021-02-09] MEDS ORDERED: PNEUMOCOCCAL VACCINE 0.5ML SYRINGE (PNEUMOVAX 23) IM ONE (09:00)
[2021-02-09] MEDS: ENTRESTO 24-26MG TABLET (SACUBITRIL/VALSARTAN) PO SCH ×2 (09:09→21:38)
[2021-02-09 09:10] VITALS: BP 117/56
[2021-02-09] MEDS: DOCUSATE SODIUM 100MG CAPSULE PO SCH ×2 (09:10→21:00)
[2021-02-09] MEDS: FINASTERIDE 5 MG TAB PO SCH (09:10)
[2021-02-09] MEDS: TAMSULOSIN 0.4 MG CAP PO SCH (09:10)
[2021-02-09] MEDS: predniSONE 10 MG TAB PO SCH (09:10)
[2021-02-09] MEDS: VITAMIN D 1,000 INTERNATIONAL UNITS TABLET PO SCH (09:10)
[2021-02-09] MEDS: GABAPENTIN 300 MG CAP PO SCH ×2 (09:10→21:39)
[2021-02-09] MEDS: APIXABAN 5 MG TAB (ELIQUIS) PO SCH ×2 (09:10→21:39)
[2021-02-09] MEDS: DIGOXIN 0.125 MG TAB PO SCH (09:10)
[2021-02-09] MEDS: FLUCONAZOLE 200 MG in IV 1 EA IV SCH (09:11)
[2021-02-09] MEDS: FUROSEMIDE 40 MG TAB PO SCH (09:11)
[2021-02-09] MEDS: OMEGA-3 1000MG CAPSULE PO SCH (09:11)
[2021-02-09 14:15] VITALS: BP 72/40
--- NOTE | 2021-02-09 17:23 | IPNPDOC ---
Text Note Date of Service The patient was seen on 02/09/21. NOTE Subjective: Patient seen and examined at bedside. No acute overnight events reported. Patient has no new medical complaints this morning. Objective: General: NAD, lying comfortably in bed, chronically ill appearing HEENT: NC/AT, EOMI Lungs: CTA B/L Heart: +S1S2, RRR Abd: soft, obese, NT, +BS, choly tube in place Ext: chronic venous stasis changes, b/l LE edema A/P: 65 y/o male with a PMHX of CAD/MN/CABG, CHF unknown type, pvd, hld, a-fib, htn, elyssa/cpap, gerd, obesity s/p gastric bypass, bph, hypothyroidism and COPD/not O2 dependent, who originally presented to [facility] on 01/09 but was transferred from ED for further management of choledocholithiasis, transaminitis and septic shock. Patient was stabilized at [facility] where he spent his initial days in ICU until he underwent cholecystectomy tube placement and liver abscess drainage on 01/30. Patient has been medically managed by [facility] team and started on meropenem and diflucan for mixed pseudomonas bacteremia and systemic jennifer. ID at [facility] recommended meropenem for 6 weeks and diflucan for 4 weeks. Patient has been tr ansferred back to [facility] for continued medical management as well as pt/ot for deconditioning secondary to prolonged critical illness. #Liver abscess - Patient grew pseudomonas on blood cultures as well as grew jennifer on abscess cultures at [facility] - Will continue diflucan and meropenem per [facility] recommendations for now - Will continue prednisone taper started at [facility] - Will administer pain/nausea control as needed - Will trend white count - repeat liver US to monitor abscess - continue IV abx - ID c/s on Thursday #Deconditioning - PT/OT consult placed #CHF - Patient states that many of his cardiac medications were held at [facility] due to his illness - continue lasix, entresto - metoprolol on hold - follows with dr sal, states his BB has been off and on frequently over the past year #CAD #HLD - continue rosuvastatin, fish oil #A-fib - Continue eliquis, digoxin #HTN - entresto, lasix #ELYSSA - continue cpap #GERD - continue protonix #BPH - continue flomax, finasteride #Hypothyroidism - continue levothyroxine #COPD # seasonal allergies - continue loratidine, flonase #DVT prophylaxis - pt on eliquis]. VS,Fishbone, I+O VS, Fishbone, I+O Laboratory Tests 02/09/21 03:34 Vital Signs Date Time Temp Pulse Resp B/P (MAP) Pulse Ox O2 Delivery O2 Flow Rate FiO2 02/09/21 14:15 72 72/40 (51) 02/09/21 09:00 3.0 02/09/21 06:00 97.2 20 98 NIPPV (BIPAP/CPAP) I&O- Last 24 Hours up to 6 AM 02/09/21 06:00 Intake Total 375 ml Output Total 815 ml Balance -440 ml CHUCHO GUTIERREZ MD February 09, 2021 17:23
[2021-02-09 21:20] VITALS: BP 88/45
[2021-02-09] MEDS: FLUTICASONE PROP 0.05% NASAL SPRAY 16 GM (FLONASE) NARES SCH (21:38)
[2021-02-09] MEDS: MULTIVITAMINS CHILDREN'S CHEWABLE TABLET PO SCH (21:38)
[2021-02-09] MEDS: ROSUVASTATIN 10 MG TAB (CRESTOR) PO SCH (21:38)
[2021-02-09] MEDS: ASPIRIN 81MG ENTERIC TABLET PO SCH (21:39)
[2021-02-09] MEDS: CALCIUM/VITAMIN D 500 MG TAB PO SCH (21:39)
[2021-02-09] MEDS: LORATADINE 10 MG TAB PO SCH (21:40)
[2021-02-09] MEDS: PANTOPRAZOLE 40MG TAB (PROTONIX) PO SCH (21:40)
[2021-02-09 22:54] VITALS: BP 84/54
[2021-02-09 22:59] VITALS: BP 86/50
[2021-02-10] MEDS ORDERED: NS 500 ML IV ONE ×2 (00:20→14:00)
[2021-02-10] MEDS: LEVOTHYROXINE 25MCG TABLET (0.025MG) PO SCH (05:37)
[2021-02-10] MEDS: LEVOTHYROXINE 100MCG TABLET (0.1MG) PO SCH (05:37)
[2021-02-10] MEDS: MEROPENEM INJ 2 GM in NS 100 ML IV SCH ×3 (05:38→21:20)
[2021-02-10] MEDS: SODIUM CHLORIDE 0.9% INJ 10 ML SYR IV SCH ×3 (05:38→21:21)
[2021-02-10 05:48] VITALS: BP 82/44
[2021-02-10 06:07] LABS: HEMATOCRIT 30.6 % (42.0-52.0); HEMOGLOBIN 9.2 g/dl (13.5-17.5); MEAN CORPUSCULAR HEMOGLOBIN 28.4 pg (27.0-33.0); MEAN CORPUSCULAR HGB CONC 30.1 g/dl (32.0-36.5); MEAN CORPUSCULAR VOLUME 94.4 fl (80.0-96.0); PLATELET COUNT, AUTOMATED 237 10^3/uL (150-450); RED BLOOD COUNT 3.24 10^6/uL (4.30-6.10); WHITE BLOOD COUNT 13.1 10^3/uL (4.0-10.0)
[2021-02-10 06:27] LABS: ALBUMIN 2.1 GM/DL (3.2-5.2); ALT/SGPT 96 U/L (12-78); BILIRUBIN,TOTAL 5.5 MG/DL (0.2-1.0); BLOOD UREA NITROGEN 29 MG/DL (7-18); CALCIUM LEVEL 8.5 MG/DL (8.8-10.2); CARBON DIOXIDE LEVEL 33 MEQ/L (21-32); CHLORIDE LEVEL 103 MEQ/L (98-107); GLOMERULAR FILTRATION RATE > 60.0 (>49); GLUCOSE, FASTING 76 MG/DL (70-100); MAGNESIUM LEVEL 1.9 MG/DL (1.8-2.4); POTASSIUM SERUM 3.7 MEQ/L (3.5-5.1); SODIUM LEVEL 141 MEQ/L (136-145); TOTAL PROTEIN 5.5 GM/DL (6.4-8.2)
[2021-02-10] MEDS: GABAPENTIN 300 MG CAP PO SCH ×2 (08:28→21:22)
[2021-02-10] MEDS: APIXABAN 5 MG TAB (ELIQUIS) PO SCH ×2 (08:28→21:23)
[2021-02-10] MEDS: TAMSULOSIN 0.4 MG CAP PO SCH (08:28)
[2021-02-10] MEDS: FINASTERIDE 5 MG TAB PO SCH (08:28)
[2021-02-10] MEDS: VITAMIN D 1,000 INTERNATIONAL UNITS TABLET PO SCH (08:28)
[2021-02-10] MEDS: DOCUSATE SODIUM 100MG CAPSULE PO SCH ×2 (08:28→21:21)
[2021-02-10] MEDS: ENTRESTO 24-26MG TABLET (SACUBITRIL/VALSARTAN) PO SCH (08:28)
[2021-02-10] MEDS: OMEGA-3 1000MG CAPSULE PO SCH (08:29)
[2021-02-10] MEDS: predniSONE 10 MG TAB PO SCH (08:29)
[2021-02-10] MEDS: FLUCONAZOLE 200 MG in IV 1 EA IV SCH (08:29)
[2021-02-10] MEDS: DIGOXIN 0.125 MG TAB PO SCH (08:29)
[2021-02-10] MEDS: FUROSEMIDE 40 MG TAB PO SCH (09:00)
--- NOTE | 2021-02-10 09:29 | IPNPDOC ---
Text Note Date of Service The patient was seen on 02/10/21. NOTE Subjective: Patient seen and examined at bedside. No acute overnight events reported. Patient has no new medical complaints this morning. Objective: General: NAD, lying comfortably in bed, chronically ill appearing HEENT: NC/AT, EOMI Lungs: CTA B/L Heart: +S1S2, RRR Abd: soft, obese, NT, +BS, choly tube in place Ext: chronic venous stasis changes, b/l LE edema A/P: 65 y/o male with a PMHX of CAD/DC/CABG, CHF unknown type, pvd, hld, a-fib, htn, elyssa/cpap, gerd, obesity s/p gastric bypass, bph, hypothyroidism and COPD/not O2 dependent, who originally presented to [facility] ED on 01/09 but was transferred from ED for further management of choledocholithiasis, transaminitis and septic shock. Patient was stabilized at [facility] where he spent his initial days in ICU until he underwent cholecystectomy tube placement and liver abscess drainage on 01/30. Patient has been medically managed by [facility] team and started on meropenem and diflucan for mixed pseudomonas bacteremia and systemic jennifer. ID at [facility] recommended meropenem for 6 weeks and diflucan for 4 weeks. Patient has been tr ansferred back to [facility] for continued medical management as well as pt/ot for deconditioning secondary to prolonged critical illness. #Liver abscess - Patient grew pseudomonas on blood cultures as well as grew jennifer on abscess cultures at [facility] - Will continue diflucan and meropenem per [facility] recommendations for now - Will continue prednisone taper started at [facility] - Will administer pain/nausea control as needed - Will trend white count - repeat liver US to monitor abscess - continue IV abx - ID c/s on Thursday #Deconditioning - PT/OT consult placed #CHF - Patient states that many of his cardiac medications were held at [facility] due to his illness - continue lasix, entresto - metoprolol on hold - follows with dr sal, states his BB has been off and on frequently over the past year #CAD #HLD - continue rosuvastatin, fish oil #A-fib - Continue eliquis, digoxin #HTN - entresto, lasix #ELYSSA - continue cpap #GERD - continue protonix #BPH - continue flomax, finasteride #Hypothyroidism - continue levothyroxine #COPD # seasonal allergies - continue loratidine, flonase #DVT prophylaxis - pt on eliquis]. VS,Fishbone, I+O VS, Fishbone, I+O Laboratory Tests 02/10/21 05:46 Vital Signs Date Time Temp Pulse Resp B/P (MAP) Pulse Ox O2 Delivery O2 Flow Rate FiO2 02/10/21 08:29 72 02/10/21 06:00 96.9 20 95 NIPPV (BIPAP/CPAP) 02/10/21 05:48 82/44 (57) 02/09/21 21:40 3.0 I&O- Last 24 Hours up to 6 AM 02/10/21 06:00 Intake Total 2575 ml Output Total 2640 ml Balance -65 ml CHUCHO GUTIERREZ MD February 10, 2021 09:29
--- NOTE | 2021-02-10 10:46 | REP ---
INDICATION: interim eval of liver abscess. COMPARISON: 01/20/2021. TECHNIQUE: Real-time sonographic evaluation of right upper quadrant performed. FINDINGS: The patient reports he has had a prior cholecystectomy.. There is no intrahepatic or extrahepatic biliary dilatation, common bile duct measures 5 mm in maximum diameter. There is diffuse heterogeneous increased echotexture of the liver. Focal heterogeneous echotexture is seen in the left lobe of the liver measuring 3.3 x 3.2 x 3.7 cm. A complex, lobulated more hypoechoic area in the right lobe of the liver measures 6.4 x 3.9 x 5.4 cm. Patient history states evaluation for liver abscess, and these areas may indeed represent complex abscess fluid. The pancreas is not visualized due to overlying bowel gas. The right kidney demonstrates no hydronephrosis, with a normal size of 13.5 cm in length. No free fluid is seen. IMPRESSION: Two focal abnormalities identified in the liver as discussed in detail above, 1 in the left lobe and another in the right lobe, could represent abscesses as per provided patient history. <Electronically signed by Minesh Anderson > 02/10/21 1046
[2021-02-10 14:00] VITALS: BP 65/42
[2021-02-10 16:33] VITALS: BP 90/54
[2021-02-10 21:00] VITALS: BP 98/57
[2021-02-10] MEDS: ASPIRIN 81MG ENTERIC TABLET PO SCH (21:22)
[2021-02-10] MEDS: ROSUVASTATIN 10 MG TAB (CRESTOR) PO SCH (21:22)
[2021-02-10] MEDS: PANTOPRAZOLE 40MG TAB (PROTONIX) PO SCH (21:22)
[2021-02-10] MEDS: MULTIVITAMINS CHILDREN'S CHEWABLE TABLET PO SCH (21:22)
[2021-02-10] MEDS: CALCIUM/VITAMIN D 500 MG TAB PO SCH (21:22)
[2021-02-10] MEDS: LORATADINE 10 MG TAB PO SCH (21:23)
[2021-02-10] MEDS: FLUTICASONE PROP 0.05% NASAL SPRAY 16 GM (FLONASE) NARES SCH (21:23)
[2021-02-11] MEDS: LEVOTHYROXINE 25MCG TABLET (0.025MG) PO SCH (05:27)
[2021-02-11] MEDS: LEVOTHYROXINE 100MCG TABLET (0.1MG) PO SCH (05:27)
[2021-02-11] MEDS: SODIUM CHLORIDE 0.9% INJ 10 ML SYR IV SCH ×3 (05:28→21:16)
[2021-02-11] MEDS: MEROPENEM INJ 2 GM in NS 100 ML IV SCH ×3 (05:28→21:16)
[2021-02-11 06:00] LABS: HEMATOCRIT 28.1 % (42.0-52.0); HEMOGLOBIN 8.4 g/dl (13.5-17.5); MEAN CORPUSCULAR HEMOGLOBIN 28.8 pg (27.0-33.0); MEAN CORPUSCULAR HGB CONC 29.9 g/dl (32.0-36.5); MEAN CORPUSCULAR VOLUME 96.2 fl (80.0-96.0); PLATELET COUNT, AUTOMATED 181 10^3/uL (150-450); RED BLOOD COUNT 2.92 10^6/uL (4.30-6.10); WHITE BLOOD COUNT 11.5 10^3/uL (4.0-10.0)
[2021-02-11 06:26] VITALS: BP 98/61
[2021-02-11 06:34] LABS: ALBUMIN 1.5 GM/DL (3.2-5.2); ALT/SGPT 73 U/L (12-78); BILIRUBIN,TOTAL 4.2 MG/DL (0.2-1.0); BLOOD UREA NITROGEN 26 MG/DL (7-18); CALCIUM LEVEL 6.7 MG/DL (8.8-10.2); CARBON DIOXIDE LEVEL 24 MEQ/L (21-32); CHLORIDE LEVEL 115 MEQ/L (98-107); CREATININE FOR GFR 0.75 MG/DL (0.70-1.30); GLOMERULAR FILTRATION RATE > 60.0 (>49); GLUCOSE, FASTING 67 MG/DL (70-100); MAGNESIUM LEVEL 1.6 MG/DL (1.8-2.4); POTASSIUM SERUM 3.1 MEQ/L (3.5-5.1); SODIUM LEVEL 145 MEQ/L (136-145); TOTAL PROTEIN 4.7 GM/DL (6.4-8.2)
[2021-02-11] MEDS ORDERED: MAG SULF 1GM/100ML (MAG RUN) 1 GM in IV 1 EA IV ONE (08:00)
[2021-02-11] MEDS ORDERED: POTASSIUM CHLORIDE 10 MEQ SR TABLET PO ONE (08:00)
[2021-02-11] MEDS: DOCUSATE SODIUM 100MG CAPSULE PO SCH ×2 (09:00→21:05)
--- NOTE | 2021-02-11 10:43 | IPNPDOC ---
Text Note Date of Service The patient was seen on 02/11/21. NOTE Subjective: Patient seen and examined at bedside. No acute overnight events reported. Patient has no new medical complaints this morning. Objective: General: NAD, sitting comfortably at edge of bed, in good spirits today HEENT: NC/AT, EOMI Lungs: CTA B/L Heart: +S1S2, RRR Abd: soft, obese, NT, +BS, choly tube in place, draining bilious fluid Ext: chronic venous stasis changes, b/l LE edema A/P: 65 y/o male with a PMHX of CAD/AR/CABG, CHF appears to be systolic and diastolic dysfunction s/p AICD, pvd, hld, a-fib, htn, elyssa/cpap, gerd, obesity s/p gastric bypass, bph, hypothyroidism and COPD/not O2 dependent, who originally presented to [facility] ED on 01/09 but was transferred from ED for further management of choledocholithiasis, transaminitis and septic shock. Patient was stabilized at [facility] where he spent his initial days in ICU until he underwent cholecystectomy and liver abscess drainage on 01/30, with choly tube placed. Patient has been medically managed by [facility] team and started on meropenem and diflucan for mixed pseudomonas bacteremia and systemic jennifer. ID at [facility] recommended meropenem for 6 weeks and diflucan for 4 weeks. Patient has been transferred back to [facility] for continued medical management as well as pt/ot for deconditioning secondary to prolonged critical illness. #Liver abscess - Patient grew pseudomonas on blood cultures as well as grew jennifer on abscess cultures at [facility] - Will continue diflucan and meropenem per [facility] recommendations for now - Will continue prednisone taper started at [facility] - Will administer pain/nausea control as needed - Will trend white count - repeat liver US to monitor abscess - continue IV abx - discussed with ID, assistance appreciated, c/s pending #Deconditioning/critical illness myhhopathy - PT/OT , ARU screen #chronic CHF with systolic and diastolic dysfunction, s/p AICD - Patient states that many of his cardiac medications were held at [facility] due to his illness - entresto, metoprolol on hold due to hypotension - follows with dr sal, patient states his BB has been off and on frequently over the past year #CAD - stable, history of AR/CABG #HLD - continue rosuvastatin, fish oil #chronic A-fib - Continue eliquis, digoxin #HTN - entresto, lasix #ELYSSA - continue cpap #GERD - continue protonix #BPH - continue flomax, finasteride #Hypothyroidism - continue levothyroxine #COPD # seasonal allergies - continue loratidine, flonase #morbid obesity - complicates care #DVT prophylaxis - pt on eliquis]. VS,Fishbone, I+O VS, Fishbone, I+O Laboratory Tests 02/11/21 05:35 Vital Signs Date Time Temp Pulse Resp B/P (MAP) Pulse Ox O2 Delivery O2 Flow Rate FiO2 02/11/21 06:26 96.8 111 18 98/61 (73) 97 Nasal Cannula 3.0 I&O- Last 24 Hours up to 6 AM 02/11/21 06:00 Intake Total 3030 ml Output Total 3450 ml Balance -420 ml CHUCHO GUTIERREZ MD February 11, 2021 10:43
[2021-02-11] MEDS: FLUCONAZOLE 200 MG in IV 1 EA IV SCH (11:05)
[2021-02-11] MEDS: predniSONE 10 MG TAB PO SCH (11:06)
[2021-02-11] MEDS: OMEGA-3 1000MG CAPSULE PO SCH (11:06)
[2021-02-11] MEDS: VITAMIN D 1,000 INTERNATIONAL UNITS TABLET PO SCH (11:06)
[2021-02-11] MEDS: FINASTERIDE 5 MG TAB PO SCH (11:06)
[2021-02-11] MEDS: APIXABAN 5 MG TAB (ELIQUIS) PO SCH ×2 (11:06→21:05)
[2021-02-11] MEDS: FUROSEMIDE 40 MG TAB PO SCH (11:07)
[2021-02-11] MEDS: GABAPENTIN 300 MG CAP PO SCH ×2 (11:07→21:05)
[2021-02-11] MEDS: TAMSULOSIN 0.4 MG CAP PO SCH (11:07)
[2021-02-11] MEDS: DIGOXIN 0.125 MG TAB PO SCH (11:10)
[2021-02-11 14:00] VITALS: BP 84/48
[2021-02-11] MEDS: FLUTICASONE PROP 0.05% NASAL SPRAY 16 GM (FLONASE) NARES SCH (21:04)
[2021-02-11] MEDS: LORATADINE 10 MG TAB PO SCH (21:05)
[2021-02-11] MEDS: ASPIRIN 81MG ENTERIC TABLET PO SCH (21:05)
[2021-02-11] MEDS: PANTOPRAZOLE 40MG TAB (PROTONIX) PO SCH (21:05)
[2021-02-11] MEDS: CALCIUM/VITAMIN D 500 MG TAB PO SCH (21:05)
[2021-02-11] MEDS: MULTIVITAMINS CHILDREN'S CHEWABLE TABLET PO SCH (21:05)
[2021-02-11] MEDS: ROSUVASTATIN 10 MG TAB (CRESTOR) PO SCH (21:05)
[2021-02-11 22:00] VITALS: BP 98/45
[2021-02-12] MEDS: LEVOTHYROXINE 100MCG TABLET (0.1MG) PO SCH (05:30)
[2021-02-12] MEDS: LEVOTHYROXINE 25MCG TABLET (0.025MG) PO SCH (05:32)
[2021-02-12] MEDS: MEROPENEM INJ 2 GM in NS 100 ML IV SCH ×2 (05:49→15:13)
[2021-02-12 06:00] VITALS: BP 109/50
[2021-02-12 06:05] LABS: HEMOGLOBIN 9.1 g/dl (13.5-17.5); MEAN CORPUSCULAR HEMOGLOBIN 28.9 pg (27.0-33.0); MEAN CORPUSCULAR HGB CONC 30.3 g/dl (32.0-36.5); MEAN CORPUSCULAR VOLUME 95.2 fl (80.0-96.0); PLATELET COUNT, AUTOMATED 186 10^3/uL (150-450); RED BLOOD COUNT 3.15 10^6/uL (4.30-6.10); WHITE BLOOD COUNT 10.4 10^3/uL (4.0-10.0)
[2021-02-12] MEDS: SODIUM CHLORIDE 0.9% INJ 10 ML SYR IV SCH ×2 (06:36→15:13)
[2021-02-12 06:38] LABS: ALT/SGPT 84 U/L (12-78); BILIRUBIN,TOTAL 4.8 MG/DL (0.2-1.0); BLOOD UREA NITROGEN 29 MG/DL (7-18); CALCIUM LEVEL 8.1 MG/DL (8.8-10.2); CARBON DIOXIDE LEVEL 26 MEQ/L (21-32); CHLORIDE LEVEL 109 MEQ/L (98-107); GLOMERULAR FILTRATION RATE > 60.0 (>49); GLUCOSE, FASTING 82 MG/DL (70-100); MAGNESIUM LEVEL 2.2 MG/DL (1.8-2.4); POTASSIUM SERUM 4.1 MEQ/L (3.5-5.1); SODIUM LEVEL 141 MEQ/L (136-145); TOTAL PROTEIN 5.6 GM/DL (6.4-8.2)
[2021-02-12] MEDS: predniSONE 10 MG TAB PO SCH (09:21)
[2021-02-12] MEDS: OMEGA-3 1000MG CAPSULE PO SCH (09:21)
[2021-02-12] MEDS: VITAMIN D 1,000 INTERNATIONAL UNITS TABLET PO SCH (09:21)
[2021-02-12] MEDS: FLUCONAZOLE 200 MG in IV 1 EA IV SCH (09:22)
[2021-02-12] MEDS: APIXABAN 5 MG TAB (ELIQUIS) PO SCH (09:22)
[2021-02-12] MEDS: DIGOXIN 0.125 MG TAB PO SCH (09:22)
[2021-02-12] MEDS: TAMSULOSIN 0.4 MG CAP PO SCH (09:22)
[2021-02-12] MEDS: FINASTERIDE 5 MG TAB PO SCH (09:22)
[2021-02-12] MEDS: GABAPENTIN 300 MG CAP PO SCH (09:22)
[2021-02-12] MEDS: DOCUSATE SODIUM 100MG CAPSULE PO SCH (09:22)
[2021-02-12] MEDS: FUROSEMIDE 40 MG TAB PO SCH (09:38)
--- NOTE | 2021-02-12 11:40 | DS.PDOC ---
Discharge Summary General Date of Admission February 08, 2021 at 23:17 Date of Discharge 02/12/21 Discharge Summary PROCEDURES PERFORMED DURING STAY: [None]. ADMITTING/DISCHARGE DIAGNOSES: 1. Liver abscess with drain 2. Deconditioning COMPLICATIONS/CHIEF COMPLAINT: Liver Abcess. HISTORY OF PRESENT ILLNESS: From admitting providers H&P: This is a 65 y/o male with a pmh of cardiac arrest, cad s/p cabg, chf, pvd, hld, a-fib, htn, elyssa, gerd, obesity s/p gastric bypass, bph, hypothyroidism and COPD who originally presented to our ED on 01/09. Patient at that time was found to have possible choledocholithiasis and transaminitis but was subsequently transferred to [facility] d/t septic shock. At [facility], patient was initially placed on pressors and IV abx. Patient's blood cultures grew pseudomonas. Patient underwent cholecystectomy tube placement and liver abscess drainage by IR on 01/30 and cultures from this procedure grew jennifer. Patient still has cholecystectomy tube with drainage bag in place. Patient was eventually stabilized by [facility] and transferred back to us for continued medical management of liver abscess as well as PT/OT. Infectious disease at [facility] recommended 4 weeks of diflucan and 6 w eeks of meropenem. He states that he feels much better than how he did upon his transfer to [facility]. Patient states that he does not have much abdominal pain or nausea/vomiting at this point in time. Patient states that his main complaints at this point are his weakness he has developed due to deconditioning secondary to his critical illness. Patient denies current fevers, chills, abd pain, chest pain, sob, n/v. Patient states he has been experiencing some mild diarrhea that he blames on his antibiotics. Patient is requesting a puga catheter as he is unable to get up to make it to the bathroom easily HOSPITAL COURSE: 65 y/o male with a PMHX of CAD/AK/CABG, CHF appears to be systolic and diastolic dysfunction s/p AICD, pvd, hld, a-fib, htn, elyssa/cpap, gerd, obesity s/p gastric bypass, bph, hypothyroidism and COPD/not O2 dependent, who originally presented to [facility] ED on 01/09 but was transferred from ED for further management of choledocholithiasis, transaminitis and septic shock. Patient was stabilized at [facility] where he spent his initial days in ICU until he underwent cholecystectomy and liver abscess drainage on 01/30, with choly tube placed. Patient has been medically managed by [facility] team and started on meropenem and diflucan for mixed pseudomonas bacteremia and systemic jennifer. ID at [facility] recommended meropenem for 6 weeks and diflucan for 4 weeks. Patient has been transferred back to [facility] for continued medical management as well as pt/ot for deconditioning secondary to prolonged critical illness. #Liver abscesss/p drain insertion at [facility] - Patient grew pseudomonas on blood cultures as well as grew jennifer on abscess cultures at [facility] - continued diflucan and meropenem per [facility] recommendations for now - continued prednisone taper started at [facility] - administer pain/nausea control as needed - discussed with too CARL for transfer to ARU. - consulted Dr Armas surgery to help monitor/manage his drain. #Deconditioning/critical illness : transfer to ARU for rehab. #chronic CHF with systolic and diastolic dysfunction, s/p AICD - Patient states that many of his cardiac medications were held at [facility] due to his illness - entresto, metoprolol on hold due to hypotension - follows with dr mejía, patient states his BB has been off and on frequently over the past year - Follow up with Dr Mejía after discharge from ARU. DISCHARGE MEDICATIONS: Please see below. ALLERGIES: Please see below. PHYSICAL EXAMINATION ON DISCHARGE: VITAL SIGNS: Please see below. Constitutional: Awake and alert, in no apparent distress ENT: Sclera are clear. Mucosa is moist. Respiratory: Lungs CTA bilaterally. No respiratory distress. Cardiovascular: RRR S1 and S2 are normal Gastrointestinal: Abdomen is soft, non distended, non tender, BS present. Obese abdomen. Choly tube in place bag filled with dark brownish fluid Musculoskeletal: Dependent lower extremity edema. Neurologic: No focal neurological deficit. Mental Status: A&O x3, normal affect LABORATORY DATA: Please see below. IMAGING: See chart PROGNOSIS: Fair ACTIVITY: [As tolerated]. DIET: Low-salt diet DISPOSITION: ARU DISCHARGE INSTRUCTIONS: Please follow up with your primary care physician within 1 week from discharge. If you do not have one, please follow up with us to schedule an appointment. Please keep all of your follow up appointments. Please call central to book your appointments with hospital specialists. Please take all your medications as prescribed. Please call/come to Clinic or go to the Emergency Department if - Temp >101, intractable Nausea/Vomiting, Diarrhea, Mouth sores, Headaches, Altered mental status, Seizures, sudden onset of swelling, bleeding, shortness of breath or ch est pain. ITEMS TO FOLLOWUP ON ON OUTPATIENT: Follow-up with PCP after discharge from ARU Follow up with your sole conditioner Dr. Mejía after discharge DISCHARGE CONDITION: [Stable]. TIME SPENT ON DISCHARGE: 45 minutes. Vital Signs/I&Os Vital Signs Date Time Temp Pulse Resp B/P (MAP) Pulse Ox O2 Delivery O2 Flow Rate FiO2 02/12/21 09:22 117 02/12/21 06:00 97.6 18 109/50 (69) 94 Room Air 02/11/21 22:31 3.0 I&O- Last 24 Hours up to 6 AM 02/12/21 06:00 Intake Total 2120 ml Output Total 3300 ml Balance -1180 ml Laboratory Data Labs 24H Laboratory Tests 2 02/12/21 05:47: Nucleated Red Blood Cells % (auto) 0.0, Anion Gap 6L, Glomerular Filtration Rate > 60.0, Calcium Level 8.1#L, Magnesium Level 2.2, Total Bilirubin 4.8H, Aspartate Amino Transf (AST/SGOT) 70H, Alanine Aminotransferase (ALT/SGPT) 84H, Alkaline Phosphatase 329H, Total Protein 5.6L, Albumin 2.0#L, Albumin/Globulin Ratio 0.6 CBC/BMP Laboratory Tests 02/12/21 05:47 Discharge Medications Scheduled Apixaban (Eliquis) 5 Mg Tablet, 5 MG PO BID, (Reported) Aspirin (Aspirin EC) 81 Mg Tabec, 81 MG PO QHS, (Reported) Calcium Citrate/Vitamin D3 (Calcium Citrate-Vit D3 Tablet) 1 Tab Tab, 2 TAB PO QHS, (Reported) Cholecalciferol (Vitamin D3) (Vitamin D3) 1,000 Unit Tablet, 5,000 UNITS PO DAILY, (Reported) Cranberry Conc/Ascorbic Acid (Cranberry 12,600 mg Softgel) 1 Each Capsule, 25,2 00 MG PO DAILY, (Reported) Digoxin (Digoxin) 125 Mcg Tab, 125 MCG PO DAILY, (Reported) Docusate Sodium (Colace) 100 Mg Capsule, 100 MG PO QHS, (Reported) Ferrous Fumarate (Ferrous Fumarate) 324 Mg Tablet, 324 MG PO DAILY, (Reported) Finasteride (Finasteride) 5 Mg Tab, 5 MG PO DAILY, (Reported) Fish Oil/Dha/Epa (Fish Oil 1,200 mg Fish Oil) 1 Each Capsule, 1 CAP PO DAILY, (Reported) Fluticasone Propionate (Flonase Allergy Relief) 50 Mcg/Act Spr, 2 SPRAYS NARES QHS, (Reported) Furosemide (Furosemide) 40 Mg Tab, 40 MG PO DAILY, (Reported) Gabapentin (Gabapentin) 300 Mg Capsule, 300 MG PO BID, (Reported) Levothyroxine Sodium (Levothyroxine Sodium) 200 Mcg Tablet, 200 MCG PO DAILY, (Reported) 225MCG TOTAL DAILY Levothyroxine Sodium (Levoxyl) 25 Mcg Tablet, 25 MCG PO DAILY, (Reported) 225MCG TOTAL DAILY Loratadine (Loratadine) 10 Mg Tab, 10 MG PO QHS, (Reported) Pantoprazole Sodium (Pantoprazole Sodium) 40 Mg Tab, 40 MG PO QPM, (Reported) Pediatric Multivitamin No.49 (Flintstones Gummies) 1 Each Tab.chew, 2 CHW PO QPM, (Reported) Potassium Chloride (Klor-Con M10) 10 Meq Tabcr, 10 MEQ PO QPM, (Reported) Prednisone (Prednisone) 10 Mg Tablet, 10 MG PO DAILY, (Reported) Rosuvastatin Calcium (Crestor) 20 Mg Tab, 20 MG PO QHS, (Reported) Tamsulosin HCl (Flomax) 0.4 Mg Cap, 0.4 MG PO DAILY, (Reported) Scheduled PRN Clotrimazole/Betamethasone Dip (Clotrimazole-Betamethasone Crm) 15 Gm Cream..g., 1 DOSE TOP BID PRN for RASH/ITCHING, (Reported) Nitroglycerin (Nitrostat) 0.4 Mg Subl, 0.4 MG SL NITRO PRN for CHEST PAIN, (Reported) Allergies Coded Allergies: amiodarone (Verified Allergy, Severe, respiratory issues, 11/17/19) DONATO RIGGS MD February 12, 2021 11:40
[2021-02-12 13:40] VITALS: BP 114/54
[2021-02-12] MEDS ORDERED: LIDOCAINE 1% MDV 20ML VIAL As Ordered ONE (13:51)
[2021-02-12] MEDS ORDERED: SODIUM CHLORIDE 0.9% INJ 10 ML SYR IV PRN (15:05)
--- NOTE | 2021-02-12 17:01 | REP ---
INDICATION: prison ABx. COMPARISON: None. TECHNIQUE: The procedure was performed under the direct supervision of Dr. Anderson. The risks and benefits of the procedure were explained to the patient and informed consent was obtained. The right basilic vein was localized using ultrasound guidance. The skin was prepped and draped in a sterile fashion. 2% lidocaine was used as a local anesthetic. Using ultrasound guidance the basilic vein was cannulated and a 0.018 guidewire was inserted and advanced to the SVC using fluoroscopic guidance, and last image hold technology. The needle was removed and a 5.5 Turkish dilator and peel-away sheath was inserted over the guide wire. A 5.5 Turkish dual lumen catheter was cut to length of 52 cm. The dilator was removed and the catheter was inserted over the guide wire with the tip ending in the SVC. The peel-away sheath was removed and the catheter was flushed with heparinized saline as per Hospital protocol. The catheter was affixed to the skin and a sterile dressing was applied. The patient tolerated the procedure well and there were no immediate complications. 0.3 minutes of fluoro time was utilized for this procedure. FINDINGS: None IMPRESSION: PICC line insertion right basilic vein with the tip ending in the SVC. <Electronically signed by Hung Auguste > 02/12/21 [id number] <Electronically signed by Minesh Anderson > 02/12/21 [id number]
[2021-02-12] MEDS ORDERED: SODIUM CHLORIDE 0.9% INJ 10 ML SYR IV SCH (18:00)
[2021-02-13 03:52] LABS: C REACTIVE PROTEIN QUANTITATIV 2.23 MG/DL (0.00-0.30)
[2021-02-13] MEDS ORDERED: MEROPENEM INJ 1 GM in IV 1 EA IV SCH ×2 (06:00→06:30)
[2021-02-13] MEDS ORDERED: METO50TA7 PO (10:16)
== END 2021-02-12 18:43 | DRG 442 ==
LOC: M MSPAV 23:17
PROVIDERS: ADMIT Family Medicine; ATTEND Family Medicine
PROC: 02HV33Z Insertion of Infusion Device into Superior Vena Cava, Percutaneous Approach (ICD-10-PCS; principal; 2021-02-12 13:58)
DX: K75.0 Abscess of liver (principal); Z68.43 Body mass index [BMI] 50.0-59.9, adult; G72.81 Critical illness myopathy; I48.20 Chronic atrial fibrillation, unspecified; I50.42 Chronic combined systolic (congestive) and diastolic (congestive) heart failure; I11.0 Hypertensive heart disease with heart failure; J44.9 Chronic obstructive pulmonary disease, unspecified; E66.01 Morbid (severe) obesity due to excess calories; I25.10 Atherosclerotic heart disease of native coronary artery without angina pectoris; Z95.1 Presence of aortocoronary bypass graft; G47.33 Obstructive sleep apnea (adult) (pediatric); K21.9 Gastro-esophageal reflux disease without esophagitis; E03.9 Hypothyroidism, unspecified; N40.0 Benign prostatic hyperplasia without lower urinary tract symptoms; Z79.899 Other long term (current) drug therapy; Z79.82 Long term (current) use of aspirin; Z88.8 Allergy status to other drugs, medicaments and biological substances; Z98.41 Cataract extraction status, right eye; Z98.42 Cataract extraction status, left eye; Z95.2 Presence of prosthetic heart valve; B96.5 Pseudomonas (aeruginosa) (mallei) (pseudomallei) as the cause of diseases classified elsewhere

== ENCOUNTER 2021-02-12 13:53 | Inpatient (IN) | payer MEDICARE, BC, OTHER ==
[~2021-02-12] VITALS: Ht 190.5 cm; Wt 179.4 kg
[2021-02-12] MEDS ORDERED: ACETAMINOPHEN TAB 650MG DOSE (2X325MG) PO PRN (16:45)
[2021-02-12] MEDS ORDERED: NITROGLYCERIN 0.4 MG SUBL TABLET SL PRN (16:45)
[2021-02-12] MEDS ORDERED: MIRALAX *UNIT DOSE* 17GM PACKET PO PRN (16:45)
[2021-02-12] MEDS ORDERED: BISACODYL 10 MG SUPP PR PRN (16:45)
[2021-02-12 18:50] VITALS: BP 109/55
--- NOTE | 2021-02-12 19:47 | CR.PDOC ---
General Date of Consultation: February 12, 2021 Attending Physician: Jigar Can MD Consultation REASON FOR CONSULTATION/CHIEF COMPLAINT: Liver abscess HISTORY OF PRESENT ILLNESS: Eliud Catherine is a 65 YO M with history of recent hospitalization at [facility] for septic shock 2/2 multiple liver abscesses s/p cholecystostomy drain and drainage of liver abscesses presented back to [facility] (after having previously been transferred to [facility]) on 02/09/21 for medical management. Brief summary of previous hospitalization at [facility], per records: Admitted 01/20/2021 (transferred from [facility] ED) HIDA Scan 01/21/2021 demonstrated high grade obstruction CT abd/pel w and w/o contrast 01/25/2021 demonstrated several ill-defined hypodensities concerning for liver abscesses; concurrently, patient had transaminitis with AST and ALT in the 80s-90s and Tbili peaked at 7.1. WBC peaked at 14.5 Blood cultures positive on 01/20, 01/22, 01/27 for Pseudomonas, TTE negative for endocarditis, ROSALIND negative for endocarditis or seeding of cardiac device Started IV Meropenem on 01/28/2021 Repeat blood cultures 01/30/2021 showed no growth Cholecystostomy tube placed by IR 01/30/2021 Bile culture on 02/01/21 grew Parul Plan, at discharge to follow up with GI surgery (hx gastric bypass) for possible cholangiogram and/or ERCP Today, the patient reports feeling well. He just returned from where he had a PICC line placed. He recounts his hospitalization at [facility] where he was unable to eat and had very little appetite for two weeks. He is now able to eat and keep food down and has no abdominal pain. He has noticed his cholecystostomy tube has been draining more today, more than it has in the past week. Otherwise, he denies any fevers but reports he has some chills. No nausea/vomiting and no diarrhea. ALLERGIES: Please see below. HOME MEDICATIONS: Please see below. PAST MEDICAL HISTORY: 1. Recent diagnosis liver abscess ([facility]) 2. Atrial fibrillation 3. Combined systolic/diastolic CHF with biventricular pacemaker 4. LENA on CPAP 5. CAD s/p PCI in 2015, 2016 and CABG 6. Morbid obesity 7. GERD 8. HTN 9. BPH 10. Hypothyroidism 11. COPD (4L home O2) 12. History of L 1st MCP osteomyelitis 13. 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 b/l cataract removal 2. CABG 3. Coronary stent placement 4. ICD placement 5. Pacemaker placement 6. Gastric bypass with cholecystectomy in 2013 7. Cystoscopy with urethral dilation 8. Debridement of right foot ulcer x3 FAMILY HISTORY: Reviewed and noncontributory SOCIAL HISTORY: , former smoker, denies EtOH, no other illicit drugs REVIEW OF SYSTEMS: CONSTITUTIONAL: Denies fevers, weight loss night sweats. Reports occasional chills HEENT: Denies hearing loss, nasal discharge, sinus pain CARDIOVASCULAR: Denies chest pain, palpitations, chest pressure RESPIRATORY: Denies SOB, difficulty breathing, coughing GENITOURINARY: Denies dysuria but has requested indwelling catheter due to inability to get out of bed to toilet MUSCULOSKELETAL: Denies muscle pain/difficulty moving GASTROINTESTINAL: Denies abdominal pain, nausea/vomiting, denies diarrhea SKIN: Denies new skin rashes/swelling NEUROLOGICAL: Denies headaches, loss of sensation PSYCHIATRIC: Reports normal mood HEMATOLOGIC/LYMPHATIC: Denies easy bruising, no lumps/bumps PHYSICAL EXAMINATION: VITAL SIGNS: Please see below. GENERAL APPEARANCE: Morbidly obese, sitting up in bed, calm and cooperative, very pleasant, speaking in full sentences HEENT: EOMI, PERRL, sclerae non-icteric RESPIRATORY: clear to auscultation with no adventitious breath sounds appreciated CARDIOVASCULAR: Irregularly irregular rhythm with no obvious murmurs/rubs/gallops although difficult to auscultate due to habitus ABDOMEN: Cholecystostomy tube in RUQ draining cola-colored bile, no surrounding erythema, no pain with palpation, +BS, unable to determine whether organomegaly is present, no obvious masses EXTREMITIES: Chronic venous stasis skin changes in lower extremities bilaterally with healed scar under R knee. Feet have nonpitting edema bilaterally NEUROLOGICAL: No obvious focal deficits PSYCHIATRIC: normal mood/affect LABORATORY DATA: Please see below. IMAGING: LIVER US 02/10/21: FINDINGS: The patient reports he has had a prior cholecystectomy.. There is no intrahepatic or extrahepatic biliary dilatation, common bile duct measures 5 mm in maximum diameter. There is diffuse heterogeneous increased echotexture of the liver. Focal heterogeneous echotexture is seen in the left lobe of the liver measuring 3.3 x 3.2 x 3.7 cm. A complex, lobulated more hypoechoic area in the right lobe of the liver measures 6.4 x 3.9 x 5.4 cm. Patient history states evaluation for liver abscess, and these areas may indeed represent complex abscess fluid. The pancreas is not visualized due to overlying bowel gas. The right kidney demonstrates no hydronephrosis, with a normal size of 13.5 cm in length. No free fluid is seen. IMPRESSION: Two focal abnormalities identified in the liver as discussed in detail above, 1 in the left lobe and another in the right lobe, could represent abscesses as per provided patient history. ASSESSMENT: This is a 65 YO M with history of septic shock 2/2 multiple liver abscesses s/p cholecystostomy tube placement complicated by pseudomonas bacteremia and Parul in bile culture who presents for medical management. PLAN: -Continue IV Meropenem (started 01/28/21) and Fluconazole (started 02/01/21) for now. Patient will likely need full 6 weeks of therapy (stop on/around March 11, 2021) -Repeat liver US today shows lobulated abscess which is larger than 5cm, likely needs to be drained. Will seek input of interventional radiologist regarding drainage in next few days. -Continue cardiac/concurrent management per primary team Vital Signs/I&O Vital Signs Date Time Temp Pulse Resp B/P (MAP) Pulse Ox O2 Delivery O2 Flow Rate FiO2 02/12/21 18:50 96.8 98 18 109/55 (73) 97 Nasal Cannula 3.0 Allergies Coded Allergies: amiodarone (Verified Allergy, Severe, respiratory issues, 11/17/19) Home Medications Scheduled Apixaban (Eliquis) 5 Mg Tablet, 5 MG PO BID, (Reported) Aspirin (Aspirin EC) 81 Mg Tabec, 81 MG PO QHS, (Reported) Calcium Citrate/Vitamin D3 (Calcium Citrate-Vit D3 Tablet) 1 Tab Tab, 2 TAB PO QHS, (Reported) Cholecalciferol (Vitamin D3) (Vitamin D3) 1,000 Unit Tablet, 5,000 UNITS PO DAILY, (Reported) Cranberry Conc/Ascorbic Acid (Cranberry 12,600 mg Softgel) 1 Each Capsule, 25,200 MG PO DAILY, (Reported) Digoxin (Digoxin) 125 Mcg Tab, 125 MCG PO DAILY, (Reported) Docusate Sodium (Colace) 100 Mg Capsule, 100 MG PO QHS, (Reported) Ferrous Fumarate (Ferrous Fumarate) 324 Mg Tablet, 324 MG PO DAILY, (Reported) Finasteride (Finasteride) 5 Mg Tab, 5 MG PO DAILY, (Reported) Fish Oil/Dha/Epa (Fish Oil 1,200 mg Fish Oil) 1 Each Capsule, 1 CAP PO DAILY, (Reported) Fluticasone Propionate (Flonase Allergy Relief) 50 Mcg/Act Spr, 2 SPRAYS NARES QHS, (Reported) Furosemide (Furosemide) 40 Mg Tab, 40 MG PO DAILY, (Reported) Gabapentin (Gabapentin) 300 Mg Capsule, 300 MG PO BID, (Reported) Levothyroxine Sodium (Levothyroxine Sodium) 200 Mcg Tablet, 200 MCG PO DAILY, (Reported) 225MCG TOTAL DAILY Levothyroxine Sodium (Levoxyl) 25 Mcg Tablet, 25 MCG PO DAILY, (Reported) 225MCG TOTAL DAILY Loratadine (Loratadine) 10 Mg Tab, 10 MG PO QHS, (Reported) Pantoprazole Sodium (Pantoprazole Sodium) 40 Mg Tab, 40 MG PO QPM, (Reported) Pediatric Multivitamin No.49 (Flintstones Gummies) 1 Each Tab.chew, 2 CHW PO QPM, (Reported) Potassium Chloride (Klor-Con M10) 10 Meq Tabcr, 10 MEQ PO QPM, (Reported) Prednisone (Prednisone) 10 Mg Tablet, 10 MG PO DAILY, (Reported) Rosuvastatin Calcium (Crestor) 20 Mg Tab, 20 MG PO QHS, (Reported) Tamsulosin HCl (Flomax) 0.4 Mg Cap, 0.4 MG PO DAILY, (Reported) Scheduled PRN Clotrimazole/Betamethasone Dip (Clotrimazole-Betamethasone Crm) 15 Gm Cream..g., 1 DOSE TOP BID PRN for RASH/ITCHING, (Reported) Nitroglycerin (Nitrostat) 0.4 Mg Subl, 0.4 MG SL NITRO PRN for CHEST PAIN, (Reported) GME ATTESTATION GME ATTESTATION My faculty preceptor for this patient encounter was physically present during the encounter and was fully available. All aspects of the patient interview, examination, medical decision making process, and medical care plan development were reviewed and approved by the faculty preceptor. The faculty preceptor is aware and concurs with the plan as stated in the body of this note and will attest to such by his/her cosignature. NIRMAL GOLDEN MD February 12, 2021 19:47
[2021-02-12] MEDS: DOCUSATE SODIUM 100MG CAPSULE PO SCH (20:17)
[2021-02-12] MEDS: SENNA 8.6 MG TAB (SENOKOT) PO SCH (20:17)
[2021-02-12] MEDS: PANTOPRAZOLE 40MG TAB (PROTONIX) PO SCH (20:23)
[2021-02-12] MEDS: GABAPENTIN 300 MG CAP PO SCH (20:23)
[2021-02-12] MEDS: LACTOBACILLUS ACIDOPHILUS CAP (BACID) PO SCH (20:23)
[2021-02-12] MEDS: LORATADINE 10 MG TAB PO SCH (20:23)
[2021-02-12] MEDS: ROSUVASTATIN 10 MG TAB (CRESTOR) PO SCH (20:23)
[2021-02-12] MEDS: ASPIRIN 81MG ENTERIC TABLET PO SCH (20:23)
[2021-02-12] MEDS: APIXABAN 5 MG TAB (ELIQUIS) PO SCH (20:23)
[2021-02-12] MEDS: REMEDY PHYTOPLEX Z-GUARD PASTE 113GM TUBE (FROM STOREROOM PRODUCT) TOP SCH (20:25)
[2021-02-12 22:00] VITALS: BP 109/55
[2021-02-12] MEDS: MEROPENEM INJ 1 GM in IV 1 EA IV SCH (22:20)
[2021-02-13] MEDS: LEVOTHYROXINE 75MCG TABLET (0.075MG) PO SCH (05:56)
[2021-02-13] MEDS: SODIUM CHLORIDE 0.9% INJ 10 ML SYR IV SCH ×2 (05:57→17:22)
[2021-02-13] MEDS: MEROPENEM INJ 1 GM in IV 1 EA IV SCH ×3 (05:58→21:19)
[2021-02-13 06:00] VITALS: BP 94/51
[2021-02-13 06:26] LABS: BASO # 0.1 10^3/uL (0.0-0.2); BASO % 0.6 % (0.0-1.0); EOS # 0.4 10^3/uL (0.0-0.5); HEMATOCRIT 30.3 % (42.0-52.0); HEMOGLOBIN 9.2 g/dl (13.5-17.5); LYMPH # 1.6 10^3/uL (1.5-5.0); LYMPH % 16.3 % (24.0-44.0); MEAN CORPUSCULAR HEMOGLOBIN 28.8 pg (27.0-33.0); MEAN CORPUSCULAR HGB CONC 30.4 g/dl (32.0-36.5); MEAN CORPUSCULAR VOLUME 94.7 fl (80.0-96.0); MONO % 9.7 % (2.0-8.0); NEUTROPHILS # 6.8 10^3/uL (1.5-8.5); NEUTROPHILS % 68.8 % (36.0-66.0); PLATELET COUNT, AUTOMATED 181 10^3/uL (150-450); WHITE BLOOD COUNT 9.8 10^3/uL (4.0-10.0)
[2021-02-13 06:47] LABS: ALBUMIN 2.1 GM/DL (3.2-5.2); ALT/SGPT 79 U/L (12-78); BILIRUBIN,TOTAL 4.7 MG/DL (0.2-1.0); BLOOD UREA NITROGEN 27 MG/DL (7-18); CALCIUM LEVEL 8.1 MG/DL (8.8-10.2); CARBON DIOXIDE LEVEL 27 MEQ/L (21-32); CHLORIDE LEVEL 109 MEQ/L (98-107); CREATININE FOR GFR 0.95 MG/DL (0.70-1.30); GLOMERULAR FILTRATION RATE > 60.0 (>49); GLUCOSE, FASTING 81 MG/DL (70-100); POTASSIUM SERUM 4.1 MEQ/L (3.5-5.1); SODIUM LEVEL 141 MEQ/L (136-145); TOTAL PROTEIN 5.8 GM/DL (6.4-8.2)
--- NOTE | 2021-02-13 07:16 | HPEPDOC ---
Construction Specialist Note DATE OF ADMISSION: 02/12/21 DATE OF SERVICE: 02/13/21 TIME OF ADMISSION: Please refer to physician's admission order. SOURCE OF ADMISSION INFORMATION:[facility] record and patient CHIEF COMPLAINT: critical illness myopathy HISTORY OF PRESENT ILLNESS: 65M pmh cardiac arrest, cad s/p stent and CABG and ICD with PM, afib on Eliquis, LENA on CPAP, HTN, obesity s/p gastric bypass, hypothyroidism, COPD not on home 02, CHF, PVD, HLD admitted to [facility] on 02-09-21 from [facility] following cholecystectomy with tube placement with septic shock in setting of pseudomonas bacteremia. He had a liver abscess drained by IR on 01-30-21 with cultures growing jennifer. He w as started on Meropenem and Fluconazole, stabilized and transferred back to [facility] where he was noted to have considerable weakness due to prolonged ICU stay with steroid use with critical illness myopathy. He was volume overloaded and started on diuretics. ID was consulted inhouse in addition to general surgery who agreed to follow patient. He was found to have mobility and ADL impairments and deemed medically appropriate for discharge to ARU on 02-12-21. REVIEW OF SYSTEMS: The following is a completed review of systems and has been reviewed. Review of systems otherwise unremarkable. PAIN: Patient self reports no pain EYES: No recent vision changes EARS, NOSE, & THROAT: No throat pain, or dysphagia, or rhinorrhea CARDIOVASCULAR: Denies chest pain or palpitations PULMONARY: Denies shortness of breath GASTROINTESTINAL: Denies constipation/diarrhea GENITOURINARY: +puga MUSCULOSKELETAL: generalized weakness NEUROLOGICAL: mild bilat UE tremor HEMATOLOGICAL: denies easy bruising. SKIN:: bilat LE PVD skin changes PSYCHIATRIC: Unremarkable All other review of systems found to be negative. PAST MEDICAL HISTORY: as per HPI PAST SURGICAL HISTORY: As per HPI, cystoscopy with urethral dilatation, bilat cataract removal ALLERGIES: Please see below. MEDICATIONS: Please see below. FAMILY HISTORY: Cardiac SOCIAL HISTORY: No etoh/illicit drugs/smoking DIET: low sodium fluid restrict PHYSICAL EXAMINATION: VITAL SIGNS: Please see below. GENERAL: Pleasant and cooperative. No acute distress. icteric HEENT: PERRL. Extraocular movements intact. Clear conjunctiva] CARDIOVASCULAR: Irregular rate and rhythm. No murmurs, rubs, or gallops LUNGS: Clear to auscultation bilaterally. No wheezes. No rhonchi ABDOMEN: Soft, nontender, nondistended. Positive bowel sounds. Normal active bowel sounds +right upper quadrant cholecystostomy tub draining brown fluid NEUROLOGICAL: Alert and oriented times three. Cranial nerves II through XII grossly intact. Sensation grossly intact EXTREMITIES: 5-\5 strength bilateral upper extremities. 5-\5 strength right lower extremity. 5-/5 strength in left lower extremity. SKIN: bilat LE edema with hyperpigmentation LABORATORY DATA: Please see below. IMAGING:Imaging documentation personally reviewed by record FUNCTIONAL STATUS: Premorbid: Independent with all activities of daily life as well as mobility On Admission: Min-assist for bed mobility, functional transfers, ambulation, dressing, toileting GOALS: Mod-I bed mobility, functional transfers, ambulation, dressing, toileting, stairs ASSESSMENT:65-year-old M with past medical history of afib, chf, COPD, PVD who presents status post extensive hospital course at [facility] for sepsis s/p cholecystectomy with liver abscess PLAN: 1. Rehab- PT/OT advance mobility and ADLs, strengthen/stretch/maintain ROM all 4limbs 2. 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 cardiac- hx of chronic CHF- fluid restrict, daily weights, lasix -Afib on digoxin, metoprolol, and eliquis -CAD s/p CABG with ICD/PM, ASA and betablocker- monitor for low BPs -medicine consulted to assist in overall care 4. resp- hx of COPD not on 02 c/u inhalers, monitor for infection 5. GI-s/p cholecystectomy with tube with liver abscess cx growing jennifer on IV diflucan (ID and surgery following), repeat CT abd/pelvis ordered, may need liver abscess drain placed by IR 6. ID- on Meropenem for pseudomonas bacteremia started at [facility] and IV Diflucan for jennifer liver abscess cx, ID consulted and following closely, recs appreciated -c/u steroids 7. Endo- hypothyroidism c/u synthroid 8. GI ppx- protonix 9. DVT ppx on eliquis 10. Pain- tylenol prn, gabapentin 11. - BPH c/u flomax, will d/c puga once patient is more mobile, he is requesting puga remain in place for a few more days 11. Dispo- TBD POST ADMISSION PHYSICIAN EVALUATION: Medical and functional status: Description of medical status, medical assessment: As above. Rehabilitation diagnosis and current and prior cold morbid medical conditions as above. Risk of complications and plans to mitigate them as above. Description of functional status current status is as above. Prior status as above. Status compared to preadmission: There are no clinically significant differences between the patient's current status and the information described on the preadmission screening document. Treatment plan anticipated: Treatment plan is as described above. Required disciplines including physical therapy, occupational therapy, others as noted above Intensity of services: 3 hours a day, 6 days a week. Special considerations: There are no specific special or safety considerations that would likely preclude immediate implementation of an intensive rehabilitation program or subsequently influence the plan of care ATTESTATION: Considering all the information above, it is my best judgment that this patient requires intensive rehabilitation therapy as described above and an inpatient hospital environment due to the complexity of nursing, medical, and rehabilitation needs required by the patient. Furthermore, this patient can reasonably be expected to participate in an benefit from an inpatient rehabilitation stay with an interdisciplinary team approach to the delivery of rehabilitation care under the direction and supervision of rehabilitation physician PROGNOSIS: good ESTIMATED LENGTH OF STAY: 14-18 days. PROJECTED DISCHARGE DESTINATION: Home with family support and any durable medical equipment required to increase functional safety and mobility. TIME SPENT COUNSELING AND COORDINATING INITIAL CARE: Greater than 70 minutes. Vital Signs Vital Sign - Last 24 Hours 02/12/21 02/12/21 02/13/21 18:50 22:00 06:00 Temp 96.8 96.8 96.4 Pulse 98 103 109 Resp 18 20 20 B/P (MAP) 109/55 (73) 109/55 (73) 94/51 (65) Pulse Ox 97 98 97 O2 Delivery Nasal Cannula Nasal Cannula NIPPV (BIPAP/CPAP) O2 Flow Rate 3.0 3.0 Laboratory Data CBC/BMP Laboratory Tests 02/13/21 06:08 Labs 24H Laboratory Tests 2 02/13/21 06:08: Immature Granulocyte % (Auto) 0.6, Neutrophils (%) (Auto) 68.8H, Lymphocytes (%) (Auto) 16.3L, Monocytes (%) (Auto) 9.7H, Eosinophils (%) (Auto) 4.0H, Basophils (%) (Auto) 0.6, Neutrophils # (Auto) 6.8, Lymphocytes # (Auto) 1.6, Monocytes # (Auto) 1.0H, Eosinophils # (Auto) 0.4, Basophils # (Auto) 0.1, Nucleated Red Blood Cells % (auto) 0.0, Anion Gap 5L, Glomerular Filtration Rate > 60.0, Calcium Level 8.1L, Total Bilirubin 4.7H, Aspartate Amino Transf (AST/SGOT) 62H, Alanine Aminotransferase (ALT/SGPT) 79H, Alkaline Phosphatase 313H, Total Protein 5.8L, Albumin 2.1L, Albumin/Globulin Ratio 0.6 Home Medications Scheduled Apixaban (Eliquis) 5 Mg Tablet, 5 MG PO BID, (Reported) Aspirin (Aspirin EC) 81 Mg Tabec, 81 MG PO QHS, (Reported) Calcium Citrate/Vitamin D3 (Calcium Citrate-Vit D3 Tablet) 1 Tab Tab, 2 TAB PO QHS, (Reported) Cholecalciferol (Vitamin D3) (Vitamin D3) 1,000 Unit Tablet, 5,000 UNITS PO DAILY, (Reported) Cranberry Conc/Ascorbic Acid (Cranberry 12,600 mg Softgel) 1 Each Capsule, 2 5,200 MG PO DAILY, (Reported) Digoxin (Digoxin) 125 Mcg Tab, 125 MCG PO DAILY, (Reported) Docusate Sodium (Colace) 100 Mg Capsule, 100 MG PO QHS, (Reported) Ferrous Fumarate (Ferrous Fumarate) 324 Mg Tablet, 324 MG PO DAILY, (Reported) Finasteride (Finasteride) 5 Mg Tab, 5 MG PO DAILY, (Reported) Fish Oil/Dha/Epa (Fish Oil 1,200 mg Fish Oil) 1 Each Capsule, 1 CAP PO DAILY, (Reported) Fluticasone Propionate (Flonase Allergy Relief) 50 Mcg/Act Spr, 2 SPRAYS NARES QHS, (Reported) Furosemide (Furosemide) 40 Mg Tab, 40 MG PO DAILY, (Reported) Gabapentin (Gabapentin) 300 Mg Capsule, 300 MG PO BID, (Reported) Levothyroxine Sodium (Levothyroxine Sodium) 200 Mcg Tablet, 200 MCG PO DAILY, (Reported) 225MCG TOTAL DAILY Levothyroxine Sodium (Levoxyl) 25 Mcg Tablet, 25 MCG PO DAILY, (Reported) 225MCG TOTAL DAILY Loratadine (Loratadine) 10 Mg Tab, 10 MG PO QHS, (Reported) Metoprolol Tartrate (Metoprolol Tartrate) 50 Mg Tablet, 75 MG PO BID, (Reported) Pantoprazole Sodium (Pantoprazole Sodium) 40 Mg Tab, 40 MG PO QPM, (Reported) Pediatric Multivitamin No.49 (Flintstones Gummies) 1 Each Tab.chew, 2 CHW PO QPM, (Reported) Potassium Chloride (Klor-Con M10) 10 Meq Tabcr, 10 MEQ PO QPM, (Reported) Prednisone (Prednisone) 10 Mg Tablet, 10 MG PO DAILY, (Reported) Rosuvastatin Calcium (Crestor) 20 Mg Tab, 20 MG PO QHS, (Reported) Tamsulosin HCl (Flomax) 0.4 Mg Cap, 0.4 MG PO DAILY, (Reported) Scheduled PRN Clotrimazole/Betamethasone Dip (Clotrimazole-Betamethasone Crm) 15 Gm Cream..g., 1 DOSE TOP BID PRN for RASH/ITCHING, (Reported) Nitroglycerin (Nitrostat) 0.4 Mg Subl, 0.4 MG SL NITRO PRN for CHEST PAIN, (Reported) Allergies Coded Allergies: amiodarone (Verified Allergy, Severe, respiratory issues, 11/17/19) A-FIB/CHADSVASC A-FIB History Current/History of A-Fib/PAF?: Yes Current PO Anticoag Therapy: Yes DEMETRIUS GERBER MD February 13, 2021 07:16
[2021-02-13] MEDS ORDERED: ISOVUE-370 76% 100ML VIAL As Ordered ONE (08:38)
--- NOTE | 2021-02-13 08:55 | IPNPDOC ---
Text Note Date of Service The patient was seen on 02/13/21. NOTE Subjective: Patient is known to me I discharged him yesterday to ARU from the acute inpatient setting. 65 y/o male with a PMHX of CAD/VT/CABG, CHF appears to be systolic and diastolic dysfunction s/p AICD, pvd, hld, a-fib, htn, elyssa/cpap, gerd, obesity s/p gastric bypass, bph, hypothyroidism and COPD/not O2 dependent, who originally presented to [facility] ED on 01/09 but was transferred from ED for further management of choledocholithiasis, transaminitis and septic shock. Patient was stabilized at [facility] where he spent his initial days in ICU until he underwent cholecystectomy and liver abscess drainage on 01/30, with choly tube placed. Patient has been medically managed by [facility] team and started on meropenem and diflucan for mixed pseudomonas bacteremia and systemic jennifer. ID at [facility] recommended meropenem for 6 weeks and diflucan for 4 weeks. Patient has been transferred back to [facility] for continued medical management as well as pt/ot for deconditioning secondary to prolonged critical illness. Patient is doing well today without complaints tells me his drain continues to produce the same fluid as prior. He denies fevers or chills. There is no acute overnight events report ed to me. Objective: VITAL SIGNS: Please see below. Constitutional: Awake and alert, in no apparent distress ENT: Sclera are clear. Mucosa is moist. Respiratory: Lungs CTA bilaterally. No respiratory distress. Cardiovascular: RRR S1 and S2 are normal Gastrointestinal: Abdomen is soft, non distended, non tender, BS present. Obese abdomen. Choly tube in place bag filled with bilious fluid. Musculoskeletal: Dependent lower extremity edema. Neurologic: No focal neurological deficit. Mental Status: A&O x3, normal affect Assessment/plan: 65 y/o male with a PMHX of CAD/VT/CABG, CHF appears to be systolic and diastolic dysfunction s/p AICD, pvd, hld, a-fib, htn, elyssa/cpap, gerd, obesity s/p gastric bypass, bph, hypothyroidism and COPD/not O2 dependent, who originally presented to [facility] ED on 01/09 but was transferred from ED for further management of choledocholithiasis, transaminitis and septic shock. Patient was stabilized at [facility] where he spent his initial days in ICU until he underwent cholecystectomy and liver abscess drainage on 01/30, with choly tube placed. Patient has been med ically managed by [facility] team and started on meropenem and diflucan for mixed pseudomonas bacteremia and systemic jennifer. ID at [facility] recommended meropenem for 6 weeks and diflucan for 4 weeks. Patient has been transferred back to [facility] for continued medical management as well as pt/ot for deconditioning secondary to prolonged critical illness. #Deconditioning/critical illness : Acute rehab #Liver abscesss/p drain insertion at [facility] - Patient grew pseudomonas on blood cultures as well as grew jennifer on abscess cultures at [facility] - continued diflucan and meropenem per [facility] recommendations for now - administer pain/nausea control as needed - consulted Dr Armas surgery to help monitor/manage his drain who recommended IR for cholangiogram through the drain. - Discussed with Dr Karimi IR who recommended a CT abdomen w contrast. #chronic CHF with systolic and diastolic dysfunction, s/p AICD - Patient states that many of his cardiac medications were held at [facility] due to his illness - entresto, on hold due to hypotension - follows with dr mejía, patient states his BB has been off and on frequently over the past year. Currently resumed for HR 130. - Follow up with Dr Mejía after discharge from ARU. #CAD - stable, history of VT/CABG #HLD - continue rosuvastatin, fish oil #chronic A-fib - Continue eliquis, digoxin #HTN - entresto, lasix #ELYSSA - continue cpap #GERD - continue protonix #BPH - continue flomax, finasteride #Hypothyroidism - continue levothyroxine #COPD # seasonal allergies - continue loratidine, flonase #morbid obesity - complicates care #DVT prophylaxis - pt on eliquis A Yousef Hospitalist VS,Fishbone, I+O VS, Fishbone, I+O Laboratory Tests 02/13/21 06:08 Vital Signs Date Time Temp Pulse Resp B/P (MAP) Pulse Ox O2 Delivery O2 Flow Rate FiO2 02/13/21 06:00 96.4 109 20 94/51 (65) 97 NIPPV (BIPAP/CPAP) 02/12/21 22:00 3.0 I&O- Last 24 Hours up to 6 AM 5/19/21 06:00 Intake Total 200 ml Output Total 2225 ml Balance -5 ml DONATO RIGGS MD February 13, 2021 08:55
[2021-02-13] MEDS ORDERED: POTASSIUM CHLORIDE 10 MEQ SR TABLET PO SCH (09:00)
[2021-02-13] MEDS: DOCUSATE SODIUM 100MG CAPSULE PO SCH ×2 (09:00→21:00)
[2021-02-13] MEDS ORDERED: REMEDY PHYTOPLEX Z-GUARD PASTE 113GM TUBE (FROM STOREROOM PRODUCT) TOP SCH (09:00)
[2021-02-13 09:48] VITALS: BP 117/59
[2021-02-13] MEDS: FINASTERIDE 5 MG TAB PO SCH (09:50)
[2021-02-13] MEDS: VITAMIN D 1,000 INTERNATIONAL UNITS TABLET PO SCH (09:50)
[2021-02-13] MEDS: MULTIVITAMINS/MINERALS THERAP 1 TAB PO SCH (09:51)
[2021-02-13] MEDS: OYSTER SHELL CALCIUM 500 MG TAB PO SCH (09:51)
[2021-02-13] MEDS: TAMSULOSIN 0.4 MG CAP PO SCH (09:51)
[2021-02-13] MEDS: FUROSEMIDE 40 MG TAB PO SCH (09:51)
[2021-02-13] MEDS: predniSONE 10 MG TAB PO SCH (09:51)
[2021-02-13] MEDS: LACTOBACILLUS ACIDOPHILUS CAP (BACID) PO SCH ×3 (09:51→21:17)
[2021-02-13] MEDS: DIGOXIN 0.125 MG TAB PO SCH (09:51)
[2021-02-13] MEDS: GABAPENTIN 300 MG CAP PO SCH ×2 (09:51→21:16)
[2021-02-13] MEDS: FLUCONAZOLE 200 MG in IV 1 EA IV SCH (09:52)
[2021-02-13] MEDS: REMEDY PHYTOPLEX Z-GUARD PASTE 113GM TUBE (FROM STOREROOM PRODUCT) TOP SCH ×3 (09:52→21:19)
[2021-02-13] MEDS: FLUTICASONE PROP 0.05% NASAL SPRAY 16 GM (FLONASE) NARES SCH ×2 (09:52→21:18)
[2021-02-13] MEDS: COMBIVENT RESPIMAT 100-20MCG INHALER 4GM INH SCH ×3 (10:11→20:09)
[2021-02-13] MEDS ORDERED: METO50TA7 PO (10:16)
[2021-02-13] MEDS: APIXABAN 5 MG TAB (ELIQUIS) PO SCH ×2 (10:28→21:18)
[2021-02-13] MEDS ORDERED: METOPROLOL TART 25 MG TABLET PO ONE (10:30)
[2021-02-13] MEDS: SODIUM CHLORIDE 0.9% INJ 10 ML SYR IV PRN ×3 (11:06→21:59)
[2021-02-13 14:00] VITALS: BP 80/59
[2021-02-13 21:00] VITALS: BP 106/54
[2021-02-13] MEDS: SENNA 8.6 MG TAB (SENOKOT) PO SCH (21:00)
[2021-02-13] MEDS: ROSUVASTATIN 10 MG TAB (CRESTOR) PO SCH (21:17)
[2021-02-13] MEDS: PANTOPRAZOLE 40MG TAB (PROTONIX) PO SCH (21:17)
[2021-02-13] MEDS: ASPIRIN 81MG ENTERIC TABLET PO SCH (21:17)
[2021-02-13] MEDS: METOPROLOL TART 25 MG TABLET PO SCH (21:17)
[2021-02-13] MEDS: LORATADINE 10 MG TAB PO SCH (21:17)
[2021-02-14] VITALS (8 sets, daily range): BP systolic 64–114; BP diastolic 40–60
[2021-02-14] MEDS: MEROPENEM INJ 1 GM in IV 1 EA IV SCH ×3 (05:35→21:58)
[2021-02-14] MEDS: LEVOTHYROXINE 75MCG TABLET (0.075MG) PO SCH (05:36)
[2021-02-14] MEDS: SODIUM CHLORIDE 0.9% INJ 10 ML SYR IV SCH ×2 (06:30→17:48)
[2021-02-14] MEDS: COMBIVENT RESPIMAT 100-20MCG INHALER 4GM INH SCH ×3 (07:30→20:21)
[2021-02-14] MEDS: DOCUSATE SODIUM 100MG CAPSULE PO SCH ×2 (07:41→20:41)
[2021-02-14] MEDS: FUROSEMIDE 40 MG TAB PO SCH (09:00)
[2021-02-14] MEDS: METOPROLOL TART 25 MG TABLET PO SCH (09:00)
[2021-02-14] MEDS: FINASTERIDE 5 MG TAB PO SCH (09:08)
[2021-02-14] MEDS: TAMSULOSIN 0.4 MG CAP PO SCH (09:08)
[2021-02-14] MEDS: APIXABAN 5 MG TAB (ELIQUIS) PO SCH ×2 (09:08→20:40)
[2021-02-14] MEDS: LACTOBACILLUS ACIDOPHILUS CAP (BACID) PO SCH ×3 (09:08→20:40)
[2021-02-14] MEDS: MULTIVITAMINS/MINERALS THERAP 1 TAB PO SCH (09:08)
[2021-02-14] MEDS: FLUCONAZOLE 200 MG in IV 1 EA IV SCH (09:08)
[2021-02-14] MEDS: OYSTER SHELL CALCIUM 500 MG TAB PO SCH (09:08)
[2021-02-14] MEDS: predniSONE 10 MG TAB PO SCH (09:08)
[2021-02-14] MEDS: DIGOXIN 0.125 MG TAB PO SCH (09:08)
[2021-02-14] MEDS: VITAMIN D 1,000 INTERNATIONAL UNITS TABLET PO SCH (09:08)
[2021-02-14] MEDS: FLUTICASONE PROP 0.05% NASAL SPRAY 16 GM (FLONASE) NARES SCH ×2 (09:09→20:39)
[2021-02-14] MEDS: REMEDY PHYTOPLEX Z-GUARD PASTE 113GM TUBE (FROM STOREROOM PRODUCT) TOP SCH ×3 (09:09→20:41)
[2021-02-14] MEDS: GABAPENTIN 300 MG CAP PO SCH ×2 (09:09→20:40)
--- NOTE | 2021-02-14 09:30 | REP ---
INDICATION: Evaluate liver and drain positioning COMPARISON: [facility] CT 01/29/2021. TECHNIQUE: CT Scan of the abdomen and pelvis was performed with intravenous administration of 100 cc of Isovue 370, without oral contrast. Sagittal and coronal reconstruction images are performed. FINDINGS: Lung bases: There are moderate interstitial fibrotic changes in both lung bases. Liver: There has been improvement of the previously noted multiple hypodense areas in the liver, predominantly located in the left lobe, presumably representing abscesses. All have decreased in size with small residual somewhat ill-defined hypodense areas visualized, the largest measures approximately 3.6 x 1.8 cm. Gallbladder: Prior cholecystectomy. There is a biliary drainage catheter entering the right lobe of the liver with the distal pigtail located in the duodenum. There is no biliary dilatation. Spleen: There is splenomegaly, the length of the liver is approximately 15.9 cm. Adrenals: Normal. Pancreas: Normal. Kidneys: 2 cysts are seen in the right kidney, largest 1.3 cm in diameter. There is no hydronephrosis bilaterally. Small and large bowel: There has been prior gastric surgery. There is sigmoid and left colonic diverticulosis without evidence of acute diverticulitis. There is no free air or obstruction. Free fluid: None. Abdominal aorta: No aneurysm or dissection. Adenopathy: None. Appendix: Not inflamed. Osseous structures: There are degenerative changes of the spine and hips. Pelvis: No mass. A Grey catheter is seen in the collapsed urinary bladder. IMPRESSION: There has been improvement of the previously noted multiple hypodense areas in the liver, predominantly located in the left lobe, presumably representing abscesses. All have decreased in size with small residual somewhat ill-defined hypodense areas visualized, the largest measures approximately 3.6 x 1.8 cm. There is a biliary drainage catheter entering the right lobe of the liver with the distal pigtail located in the duodenum. There is no biliary dilatation. <Electronically signed by Minesh Anderson > 02/14/21 [id number]
[2021-02-14] MEDS ORDERED: NS 500 ML IV ONE (09:45)
--- NOTE | 2021-02-14 10:57 | IPNPDOC ---
PM&R Progress Note DATE OF SERVICE: February 14, 2021 Ice Guard Tester Progress Note Subjective: Patient seen in his room after BPs noted to be low 60s/40s, states he does not feel light headed or weak. He was seen again while receiving bolus of fluids and states he thinks he can do therapy later in the day. He notes his blood pressures and heart rate have been difficult to control for some time. REVIEW OF SYSTEMS: The following is a completed review of systems and has been reviewed. Review of systems otherwise unremarkable. PAIN: Patient self reports no pain EYES: No recent vision changes EARS, NOSE, & THROAT: No throat pain, or dysphagia, or rhinorrhea CARDIOVASCULAR: Denies chest pain or palpitations PULMONARY: Denies shortness of breath GASTROINTESTINAL: Denies constipation/diarrhea GENITOURINARY: +puga MUSCULOSKELETAL: generalized weakness NEUROLOGICAL: mild bilat UE tremor HEMATOLOGICAL: denies easy bruising. SKIN:: bilat LE PVD skin changes PSYCHIATRIC: Unremarkable All other review of systems found to be negative. PHYSICAL EXAMINATION: VITAL SIGNS: Please see below. GENERAL: Pleasant and cooperative. No acute distress. icteric HEENT: PERRL. Extraocular movements intact. Clear conjunctiva CARDIOVASCULAR: Irregular rate and rhythm. No murmurs, rubs, or gallops LUNGS: Clear to auscultation bilaterally. No wheezes. No rhonchi ABDOMEN: Soft, nontender, nondistended. Positive bowel sounds. Normal active bowel sounds +right upper quadrant cholecystostomy tub draining brown fluid NEUROLOGICAL: Alert and oriented times three. Cranial nerves II through XII grossly intact. Sensation grossly intact EXTREMITIES: 5-\5 strength bilateral upper extremities. 5-\5 strength right lower extremity. 5-/5 strength in left lower extremity. SKIN: bilat LE edema with hyperpigmentation ASSESSMENT:65-year-old M with past medical history of afib, chf, COPD, PVD who presents status post extensive hospital course at [facility] for sepsis s/p cholecyst ectomy with liver abscess PLAN: 1. Rehab- PT/OT advance mobility and ADLs, strengthen/stretch/maintain ROM all 4limbs 2. 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 cardiac- hx of chronic CHF- fluid restrict, daily weights, lasix -Afib on digoxin, metoprolol, and eliquis -CAD s/p CABG with ICD/PM, ASA and beta-esau- patient with sbps in 60s today, HR in 60-70s, s/p 1 bolus 500cc fluid, discussed case with hospitalist who is ad justing metoprolol and adding midodrine, c/u to monitor for low BPs -medicine consulted to assist in overall care 4. resp- hx of COPD not on 02 c/u inhalers, monitor for infection 5. GI-s/p cholecystectomy with tube with liver abscess cx growing jennifer on IV diflucan (ID and surgery following), repeat CT abd/pelvis showing imorivment in liver abscess size -plan per surgery is clamp tube and monitor LFTs, recs and intervention appreciated 6. ID- on Meropenem for pseudomonas bacteremia started at [facility] and IV Diflucan for jennifer liver abscess cx, ID consulted and following closely, recs appreciated -c/u steroids 7. Endo- hypothyroidism c/u synthroid 8. GI ppx- protonix 9. DVT ppx on eliquis 10. Pain- tylenol prn, gabapentin 11. - BPH c/u flomax, will d/c puga once patient is more mobile, he is requesting puga remain in place for a few more days 11. Dispo- TBD Allergies Coded Allergies: amiodarone (Verified Allergy, Severe, respiratory issues, 11/17/19) Vital Signs Vital Signs Date Time Temp Pulse Resp B/P (MAP) Pulse Ox O2 Delivery O2 Flow Rate FiO2 02/14/21 09:08 68 02/14/21 09:00 64/40 (48) 02/14/21 06:00 97.5 18 97 Nasal Cannula 3.0 Current Medications Current Medications Current Medications Medications (Trade) Dose Ordered Sig/Ranjeet Route PRN Reason Start Time Stop Time Status Last Admin Dose Admin Acetaminophen (Tylenol Tab) 650 mg Q4HP PRN PO fever/MILD PAIN (PS 1-4) 02/12/21 16:45 Albuterol/ Ipratropium (Combivent Respimat 100-20mcg) 1 puff RTID INH 02/13/21 08:00 02/13/21 20:09 Apixaban (Eliquis) 5 mg BID PO 02/12/21 21:00 02/14/21 09:08 Aspirin (Ecotrin) 81 mg QHS PO 02/12/21:00 02/13/21 21:17 Bisacodyl (Dulcolax Suppository) 10 mg DAILYPRN PRN NE CONSTIPATION 02/12/21 16:45 Calcium Carbonate (Oscal) 1,000 mg DAILY PO 02/13/21 09:00 02/14/21 09:08 Digoxin (Lanoxin) 0.125 mg DAILY PO 02/13/21 09:00 02/14/21 09:08 Docusate Sodium (Colace) 100 mg BID PO 02/12/21 21:00 Finasteride (Proscar) 5 mg DAILY PO 02/13/21 09:00 02/14/21 09:08 Fluconazole 200 mg/IV Miscellaneous Supplies 100 ml @ 100 mls/hr Q24H IV 02/13/21 09:00 02/14/21 09:08 Fluticasone Propionate (Flonase 0.05% Nasal Ribera) 1 spray BID NARES 02/13/21 09:00 02/14/21 09:09 Furosemide (Lasix) 40 mg DAILY PO 02/13/21 09:00 02/13/21 09:51 Gabapentin (Neurontin) 300 mg BID PO 02/12/21 21:00 02/14/21 09:09 Heparin Sodium (Heparin (Flush)) 200 units ASDIRECTED PRN IV SEE LABEL COMMENTS 02/13/21 01:30 02/13/21 21:59 Heparin Sodium (Heparin (Flush)) 200 units PICC IV 02/13/21 06:00 02/14/21 06:30 Home Med (Med Rec Complete!) ASDIRECTED XX 02/12/21 19:30 02/12/21 19:29 DC Lactobacillus Acidophilus (Bacid) 1 ea TID PO 02/12/21 21:00 02/14/21 09:08 Levothyroxine Sodium (Synthroid) 225 mcg DAILY@06 PO 02/13/21 06:00 02/14/21 05:36 Loratadine (Claritin) 10 mg QHS PO 02/12/21 21:00 02/13/21 21:17 Meropenem 1 gm/IV Miscellaneous Supplies 50 ml @ 100 mls/hr Q8H IV 02/12/21 22:00 02/14/21 05:35 Metoprolol Tartrate (Lopressor) 50 mg BID PO 02/14/21 21:00 Metoprolol Tartrate (Lopressor) 75 mg BID PO 02/13/21 21:00 02/14/21 09:33 DC 02/13/21 21:17 Midodrine (Proamatine) 5 mg 08,12,16 PO 02/14/21 12:00 Multivitamins (Theragram-M) 2 tab DAILY PO 02/13/21 09:00 02/14/21 09:08 Nitroglycerin (Nitrostat (1/ 150)) 0.4 mg Q5MP PRN SL CHEST PAIN 02/12/21 16:45 Pantoprazole Sodium (Protonix) 40 mg QHS PO 02/12/21 21:00 02/13/21 21:17 Polyethylene Glycol (Miralax) 1 pkt DAILY PRN PO CONSTIPATION 02/12/21 16:45 Potassium Chloride (Micro-K Extencaps) 10 meq DAILY PO 02/13/21 09:00 02/13/21 13:20 DC 02/13/21 09:51 Prednisone (Deltasone) 10 mg QAM PO 02/13/21 09:00 02/14/21 09:08 Rosuvastatin Calcium (Crestor) 20 mg QPM PO 02/12/21 21:00 02/13/21 21:17 Senna (Senokot) 1 tab QHS PO 02/12/21 21:00 Sodium Chloride (Saline Lock Flush) 10 ml ASDIRECTED PRN IV SEE LABEL COMMENTS 02/13/21 01:30 02/13/21 21:59 Sodium Chloride (Saline Lock Flush) 10 ml PICC IV 02/13/21 06:00 02/14/21 06:30 Tamsulosin HCl (Flomax) 0.4 mg DAILY PO 02/13/21 09:00 02/14/21 09:08 Vitamin D (Vitamin D) 5,000 units DAILY PO 02/13/21 09:00 02/14/21 09:08 DEMETRIUS GERBER MD February 14, 2021 10:57
[2021-02-14] MEDS: MIDODRINE 5 MG TAB PO SCH ×2 (11:17→17:46)
[2021-02-14 11:50] LABS: BASO % 0.3 % (0.0-1.0); EOS # 0.5 10^3/uL (0.0-0.5); EOS % 3.8 % (0.0-3.0); HEMATOCRIT 30.4 % (42.0-52.0); HEMOGLOBIN 9.2 g/dl (13.5-17.5); LYMPH # 1.5 10^3/uL (1.5-5.0); LYMPH % 12.9 % (24.0-44.0); MEAN CORPUSCULAR HEMOGLOBIN 29.2 pg (27.0-33.0); MEAN CORPUSCULAR HGB CONC 30.3 g/dl (32.0-36.5); MEAN CORPUSCULAR VOLUME 96.5 fl (80.0-96.0); MONO % 8.7 % (2.0-8.0); NEUTROPHILS # 8.6 10^3/uL (1.5-8.5); NEUTROPHILS % 73.3 % (36.0-66.0); PLATELET COUNT, AUTOMATED 179 10^3/uL (150-450); RED BLOOD COUNT 3.15 10^6/uL (4.30-6.10); WHITE BLOOD COUNT 11.8 10^3/uL (4.0-10.0)
[2021-02-14 12:01] LABS: INR 1.29; PROTHROMBIN TIME 16.4 SECONDS (12.5-14.3)
[2021-02-14 12:19] LABS: ALBUMIN 2.2 GM/DL (3.2-5.2); BILIRUBIN,DIRECT 3.7 MG/DL (0.0-0.2); BILIRUBIN,TOTAL 4.3 MG/DL (0.2-1.0); TOTAL PROTEIN 5.7 GM/DL (6.4-8.2)
[2021-02-14] MEDS: ROSUVASTATIN 10 MG TAB (CRESTOR) PO SCH (20:39)
[2021-02-14] MEDS: ASPIRIN 81MG ENTERIC TABLET PO SCH (20:39)
[2021-02-14] MEDS: SENNA 8.6 MG TAB (SENOKOT) PO SCH (20:40)
[2021-02-14] MEDS: PANTOPRAZOLE 40MG TAB (PROTONIX) PO SCH (20:40)
[2021-02-14] MEDS: METOPROLOL TART 50 MG TAB PO SCH (20:40)
[2021-02-14] MEDS: LORATADINE 10 MG TAB PO SCH (20:40)
[2021-02-14] MEDS: SODIUM CHLORIDE 0.9% INJ 10 ML SYR IV PRN (21:58)
[2021-02-15] MEDS: MEROPENEM INJ 1 GM in IV 1 EA IV SCH ×3 (05:55→21:38)
[2021-02-15] MEDS: SODIUM CHLORIDE 0.9% INJ 10 ML SYR IV SCH ×2 (05:56→15:40)
[2021-02-15] MEDS: LEVOTHYROXINE 75MCG TABLET (0.075MG) PO SCH (05:56)
[2021-02-15 06:13] LABS: BASO # 0.1 10^3/uL (0.0-0.2); BASO % 0.6 % (0.0-1.0); EOS # 0.4 10^3/uL (0.0-0.5); EOS % 4.5 % (0.0-3.0); HEMATOCRIT 29.1 % (42.0-52.0); HEMOGLOBIN 8.8 g/dl (13.5-17.5); LYMPH # 1.8 10^3/uL (1.5-5.0); LYMPH % 22.1 % (24.0-44.0); MEAN CORPUSCULAR HEMOGLOBIN 29.1 pg (27.0-33.0); MEAN CORPUSCULAR HGB CONC 30.2 g/dl (32.0-36.5); MEAN CORPUSCULAR VOLUME 96.4 fl (80.0-96.0); MONO # 0.8 10^3/uL (0.0-0.8); MONO % 9.4 % (2.0-8.0); NEUTROPHILS # 5.1 10^3/uL (1.5-8.5); NEUTROPHILS % 62.7 % (36.0-66.0); PLATELET COUNT, AUTOMATED 163 10^3/uL (150-450); RED BLOOD COUNT 3.02 10^6/uL (4.30-6.10); WHITE BLOOD COUNT 8.2 10^3/uL (4.0-10.0)
[2021-02-15 06:44] VITALS: BP 126/60
[2021-02-15 06:46] LABS: ALBUMIN 2.2 GM/DL (3.2-5.2); ALT/SGPT 72 U/L (12-78); BILIRUBIN,DIRECT 3.1 MG/DL (0.0-0.2); BILIRUBIN,TOTAL 3.6 MG/DL (0.2-1.0); BLOOD UREA NITROGEN 26 MG/DL (7-18); CALCIUM LEVEL 7.5 MG/DL (8.8-10.2); CARBON DIOXIDE LEVEL 27 MEQ/L (21-32); CHLORIDE LEVEL 111 MEQ/L (98-107); CREATININE FOR GFR 0.87 MG/DL (0.70-1.30); GLOMERULAR FILTRATION RATE > 60.0 (>49); GLUCOSE, FASTING 70 MG/DL (70-100); POTASSIUM SERUM 3.9 MEQ/L (3.5-5.1); SODIUM LEVEL 143 MEQ/L (136-145); TOTAL PROTEIN 5.6 GM/DL (6.4-8.2)
[2021-02-15] MEDS: IPRATROPIUM HFA INHALER 12.9 GRAMS (ATROVENT HFA) INH SCH ×3 (08:00→23:40)
[2021-02-15] MEDS: METOPROLOL TART 50 MG TAB PO SCH ×2 (09:00→20:22)
[2021-02-15] MEDS: DOCUSATE SODIUM 100MG CAPSULE PO SCH ×2 (09:00→20:22)
--- NOTE | 2021-02-15 09:24 | IPN ---
PROGRESS NOTE DATE: 02/14/2021 SUBJECTIVE: The patient underwent CT scan of the abdomen and pelvis and this in deed showed a percutaneous transhepatic catheter that was placed and still has some elevated liver function tests, but is not complaining of any GI distress issues. OBJECTIVE: The patient has been afebrile, vital signs have been stable, and the white count did bump a little bit today to 11.8. Chemistries show that his bilirubin is persistently elevated over 4, but it has been slowly coming down. His AST and ALT are both slowly coming down as well, as well as his alkaline phosphatase. ASSESSMENT AND PLAN: The patient's etiology for the liver function tests abnormalities might be resolving abscesses in the liver. It also can be partial obstructive from this biliary catheter that is in his biliary system. I do feel our first treatment of course is to clamp the cholangiogram catheter and we will see how much of a difference that makes with his liver function tests or whether he becomes symptomatic from this. If he does not become symptomatic, does not have pain or discomfort, and his LFTs continue to decrease, then consideration of a cholangiogram via this catheter is warranted. Possibly as it is partially removed seeing if the bile ducts drain adequately may be a reasonable option for our interventionalist. Otherwise given the previous history of gastric bypass, this might be quite difficult to re-access, but if we do not have the drainage that is present, this may be easier to deal with overall fluid status for the patient, etc. In any case, we will see how he tolerates this clamping overnight and into the morning.
[2021-02-15] MEDS: TAMSULOSIN 0.4 MG CAP PO SCH (09:29)
[2021-02-15] MEDS: DIGOXIN 0.125 MG TAB PO SCH (09:30)
[2021-02-15] MEDS: FINASTERIDE 5 MG TAB PO SCH (09:31)
[2021-02-15] MEDS: GABAPENTIN 300 MG CAP PO SCH ×2 (09:31→20:21)
[2021-02-15] MEDS: VITAMIN D 1,000 INTERNATIONAL UNITS TABLET PO SCH (09:31)
[2021-02-15] MEDS: OYSTER SHELL CALCIUM 500 MG TAB PO SCH (09:32)
[2021-02-15] MEDS: LACTOBACILLUS ACIDOPHILUS CAP (BACID) PO SCH ×3 (09:32→20:21)
[2021-02-15] MEDS: FUROSEMIDE 40 MG TAB PO SCH (09:32)
[2021-02-15] MEDS: MULTIVITAMINS/MINERALS THERAP 1 TAB PO SCH (09:32)
[2021-02-15] MEDS: MIDODRINE 5 MG TAB PO SCH ×3 (09:33→15:38)
[2021-02-15] MEDS: predniSONE 10 MG TAB PO SCH (09:33)
[2021-02-15] MEDS: APIXABAN 5 MG TAB (ELIQUIS) PO SCH ×2 (09:33→20:22)
[2021-02-15] MEDS: REMEDY PHYTOPLEX Z-GUARD PASTE 113GM TUBE (FROM STOREROOM PRODUCT) TOP SCH ×3 (09:34→20:23)
[2021-02-15] MEDS: FLUTICASONE PROP 0.05% NASAL SPRAY 16 GM (FLONASE) NARES SCH ×2 (09:35→20:23)
--- NOTE | 2021-02-15 09:52 | CR ---
CONSULTATION DATE: 02/12/2021 HISTORY OF PRESENT ILLNESS: The patient presents with a transfer for rehabilitation and had a liver abscess with questionable abscess drainage. He was started antibiotics and antifungals and presents for additional treatments and increased activity, etc. PAST MEDICAL HISTORY: 1. Morbid obesity. 2. Coronary artery disease. 3. AFib. 4. Obstructive sleep apnea. 5. Hypertension. 6. Status post gastric bypass. 7. Hypothyroidism. 8. COPD. 9. Congestive heart failure. 10. Peripheral vascular disease. 11. Hyperlipidemia. 12. Cystoscopy with urethral dilatation. 13. Bilateral cataract removal. PHYSICAL EXAMINATION: GENERAL: Reveals a 65-year-old male who looks older than stated age. HEENT: Unremarkable. NECK: Supple without adenopathy. LUNGS: Clear. HEART: Regular with multiple irregular beats. ABDOMEN: Obese. He has a drain on the right side of his abdomen with bilious drainage and this is clear bile. IMPRESSION AND PLAN: The patient had an ultrasound that showed fluid collections in his liver; however, it did not show a fluid collection with the drain going into it and this suggests that either this abscess that the drain was placed into has decompressed or this is a drain that is going directly into the biliary system. Another possibility is that the patient when he was admitted to the [facility] had an episode of ascending cholangitis, which was decompressed with a transhepatic catheter. In any case at this point, I would recommend the patient undergo a cholangiogram via the catheter to see what this is actually draining into and what portion of the biliary system. The recommendation from the interventionalist was to proceed with a CT scan and thus that will be ordered tomorrow and then determine the next course of action. The liver function test elevation it is hard to know if this is secondary to the liver abscess that are still present/fluid collections or from some liver failure, but I would recommend a GI evaluation once they are back financial controller for the hospital and ask for their input into his overall status.
--- NOTE | 2021-02-15 09:53 | IPNPDOC ---
PM&R Progress Note DATE OF SERVICE: February 15, 2021 Aircraft Manager Progress Note Subjective: Patient stating he does not feel light headed when he gets up to walk and and understands he has been started on a medication to boost his blood pressure. He denies worsening abdominal pain, fevers, chills, nausea. REVIEW OF SYSTEMS: The following is a completed review of systems and has been reviewed. Review of systems otherwise unremarkable. PAIN: Patient self reports no pain EYES: No recent vision changes EARS, NOSE, & THROAT: No throat pain, or dysphagia, or rhinorrhea CARDIOVASCULAR: Denies chest pain or palpitations PULMONARY: Denies shortness of breath GASTROINTESTINAL: Denies constipation/diarrhea GENITOURINARY: +puga MUSCULOSKELETAL: generalized weakness NEUROLOGICAL: mild bilat UE tremor HEMATOLOGICAL: denies easy bruising. SKIN:: bilat LE PVD skin changes PSYCHIATRIC: Unremarkable All other review of systems found to be negative. PHYSICAL EXAMINATION: VITAL SIGNS: Please see below. GENERAL: Pleasant and cooperative. No acute distress. icteric HEENT: PERRL. Extraocular movements intact. Clear conjunctiva CARDIOVASCULAR: Irregular rate and rhythm. No murmurs, rubs, or gallops LUNGS: Clear to auscultation bilaterally. No wheezes. No rhonchi ABDOMEN: Soft, nontender, nondistended. Positive bowel sounds. Normal active bowel sounds +right upper quadrant cholecystostomy tub draining brown fluid NEUROLOGICAL: Alert and oriented times three. Cranial nerves II through XII grossly intact. Sensation grossly intact EXTREMITIES: 5-\5 strength bilateral upper extremities. 5-\5 strength right lower extremity. 5-/5 strength in left lower extremity. SKIN: bilat LE edema with hyperpigmentation ASSESSMENT:65-year-old M with past medical history of afib, chf, COPD, PVD who presents status post extensive hospital course at [facility] for sepsis s/p cholecystectomy with liver abscess PLAN: 1. Rehab- PT/OT advance mobility and ADLs, strengthen/stretch/maintain ROM all 4limbs- ambulating short distances with RW 2. 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 cardiac- hx of chronic CHF- fluid restrict, daily weights, lasix -Afib on digoxin, metoprolol, and eliquis -CAD s/p CABG with ICD/PM, ASA and beta-esau- patient with intermittent asymptomatic hypotension, discussed case with hospitalist who has adjusted metop rolol and added midodrine, c/u to monitor for low BPs, acewraps -medicine consulted to assist in overall care 4. resp- hx of COPD not on 02, will switch from Combivent to ipratropium to mitigate tachycardia -monitor for infection 5. GI-s/p cholecystectomy with cholangiogram tube with liver abscess cx growing jennifer on IV diflucan (ID and surgery following), repeat CT abd/pelvis showing improvement in liver abscess size -surgery follwoing, tube clamped 02-14-21, monitoring LFTs and clinical exam 6. ID- on Meropenem for pseudomonas bacteremia started at [facility] and IV Diflucan for jennifer liver abscess cx, ID consulted and following closely, recs appreciated -c/u steroids 7. Endo- hypothyroidism c/u synthroid 8. GI ppx- protonix 9. DVT ppx on eliquis 10. Pain- tylenol prn, gabapentin 11. - BPH c/u flomax, will d/c puga once patient is more mobile, he is requesting puga remain in place for a few more days 11. Dispo- TBD Allergies Coded Allergies: amiodarone (Verified Allergy, Severe, respiratory issues, 11/17/19) Vital Signs Vital Signs Date Time Temp Pulse Resp B/P (MAP) Pulse Ox O2 Delivery O2 Flow Rate FiO2 02/15/21 09:30 84 02/15/21 09:00 88/52 02/15/21 06:44 96.9 18 96 Nasal Cannula 3.0 Laboratory Data CBC/BMP Laboratory Tests 02/14/21 11:09 02/15/21 05:53 Labs 24H Laboratory Tests 2 02/14/21 11:09: Immature Granulocyte % (Auto) 1.0, Neutrophils (%) (Auto) 73.3H, Lymphocytes (%) (Auto) 12.9L, Monocytes (%) (Auto) 8.7H, Eosinophils (%) (Auto) 3.8H, Basophils (%) (Auto) 0.3, Neutrophils # (Auto) 8.6H, Lymphocytes # (Auto) 1.5, Monocytes # (Auto) 1.0H, Eosinophils # (Auto) 0.5, Basophils # (Auto) 0.0, Nucleated Red Blood Cells % (auto) 0.0, Prothrombin Time 16.4H, Prothromb Time International Ratio 1.29, Activated Partial Thromboplast Time 32.0, Total Bilirubin 4.3H, Direct Bilirubin 3.7H, Aspartate Amino Transf (AST/SGOT) 59H, Alanine Aminotransferase (ALT/SGPT) 75, Alkaline Phosphatase 300H, Total Protein 5.7L, Albumin 2.2L, Albumin/Globulin Ratio 0.6 02/15/21 05:53: Immature Granulocyte % (Auto) 0.7, Neutrophils (%) (Auto) 62.7, Lymphocytes (%) (Auto) 22.1L, Monocytes (%) (Auto) 9.4H, Eosinophils (%) (Auto) 4.5H, Basophils (%) (Auto) 0.6, Neutrophils # (Auto) 5.1, Lymphocytes # (Auto) 1.8, Monocytes # (Auto) 0.8, Eosinophils # (Auto) 0.4, Basophils # (Auto) 0.1, Nucleated Red Blood Cells % (auto) 0.0, Total Bilirubin 3.6H, Direct Bilirubin 3.1H, Aspartate Amino Transf (AST/SGOT) 60H, Alanine Aminotransferase (ALT/SGPT) 72, Alkaline Phosphatase 314H, Total Protein 5.6L, Albumin 2.2L, Albumin/Globulin Ratio 0.6, Anion Gap 5L, Glomerular Filtration Rate > 60.0, Calcium Level 7.5L Current Medications Current Medications Current Medications Medications (Trade) Dose Ordered Sig/Ranjeet Route PRN Reason Start Time Stop Time Status Last Admin Dose Admin Acetaminophen (Tylenol Tab) 650 mg Q4HP PRN PO fever/MILD PAIN (PS 1-4) 02/12/21 16:45 Albuterol/ Ipratropium (Combivent Respimat 100-20mcg) 1 puff RTID INH 02/13/21 08:00 02/14/21 20:21 Apixaban (Eliquis) 5 mg BID PO 02/12/21 21:00 02/15/21 09:33 Aspirin (Ecotrin) 81 mg QHS PO 02/12/21 21:00 02/14/21 20:39 Bisacodyl (Dulcolax Suppository) 10 mg DAILYPRN PRN MA CONSTIPATION 02/12/21 16:45 Calcium Carbonate (Oscal) 1,000 mg DAILY PO 02/13/21 09:00 02/15/21 09:32 Digoxin (Lanoxin) 0.125 mg DAILY PO 02/13/21 09:00 02/15/21 09:30 Docusate Sodium (Colace) 100 mg BID PO 02/12/21 21:00 Finasteride (Proscar) 5 mg DAILY PO 02/13/21 09:00 02/15/21 09:31 Fluconazole 200 mg/IV Miscellaneous Supplies 100 ml @ 100 mls/hr Q24H IV 02/13/21 09:00 02/14/21 09:08 Fluticasone Propionate (Flonase 0.05% Nasal [place]) 1 spray BID NARES 02/13/21 09:00 02/15/21 09:35 Furosemide (Lasix) 40 mg DAILY PO 02/13/21 09:00 02/15/21 09:32 Gabapentin (Neurontin) 300 mg BID PO 02/12/21 21:00 02/15/21 09:31 Heparin Sodium (Heparin (Flush)) 200 units ASDIRECTED PRN IV SEE LABEL COMMENTS 02/13/21 01:30 02/14/21 21:58 Heparin Sodium (Heparin (Flush)) 200 units PICC IV 02/13/21 06:00 02/15/21 05:56 Home Med (Med Rec Complete!) ASDIRECTED XX 02/12/21 19:30 02/12/21 19:29 DC Lactobacillus Acidophilus (Bacid) 1 ea TID PO 02/12/21 21:00 02/15/21 09:32 Levothyroxine Sodium (Synthroid) 225 mcg DAILY@06 PO 02/13/21 06:00 02/15/21 05:56 Loratadine (Claritin) 10 mg QHS PO 02/12/21 21:00 02/14/21 20:40 Meropenem 1 gm/IV Miscellaneous Supplies 50 ml @ 100 mls/hr Q8H IV 02/12/21 22:00 02/15/21 05:55 Metoprolol Tartrate (Lopressor) 50 mg BID PO 02/14/21 21:00 02/14/21 20:40 Metoprolol Tartrate (Lopressor) 75 mg BID PO 02/13/21 21:00 02/14/21 09:33 DC 02/13/21 21:17 Midodrine (Proamatine) 5 mg 08,12,16 PO 02/14/21 12:00 02/15/21 09:33 Multivitamins (Theragram-M) 2 tab DAILY PO 02/13/21 09:00 02/15/21 09:32 Nitroglycerin (Nitrostat (1/ 150)) 0.4 mg Q5MP PRN SL CHEST PAIN 02/12/21 16:45 Pantoprazole Sodium (Protonix) 40 mg QHS PO 02/12/21 21:00 02/14/21 20:40 Polyethylene Glycol (Miralax) 1 pkt DAILY PRN PO CONSTIPATION 02/12/21 16:45 Potassium Chloride (Micro-K Extencaps) 10 meq DAILY PO 02/13/21 09:00 02/13/21 13:20 DC 02/13/21 09:51 Prednisone (Deltasone) 10 mg QAM PO 02/13/21 09:00 02/15/21 09:33 Rosuvastatin Calcium (Crestor) 20 mg QPM PO 02/12/21 21:00 02/14/21 20:39 Senna (Senokot) 1 tab QHS PO 02/12/21 21:00 Sodium Chloride (Saline Lock Flush) 10 ml ASDIRECTED PRN IV SEE LABEL COMMENTS 02/13/21 01:30 02/14/21 21:58 Sodium Chloride (Saline Lock Flush) 10 ml PICC IV 02/13/21 06:00 02/15/21 05:56 Tamsulosin HCl (Flomax) 0.4 mg DAILY PO 02/13/21 09:00 02/15/21 09:29 Vitamin D (Vitamin D) 5,000 units DAILY PO 02/13/21 09:00 02/15/21 09:31 DEMETRIUS GERBER MD February 15, 2021 09:53
--- NOTE | 2021-02-15 10:01 | IPN ---
PROGRESS NOTE DATE: 02/15/2021 SUBJECTIVE: Vitals have been stable overnight. Intake and output (I&Os) are looking good. His drain was clamped yesterday and overall his white count dropped down to 8.2. His chemistries show that he is continuing to have a slow decline in his bilirubin over time, his ALT has normalized, and his AST is almost there and thus, he did not have a bump with clamping of his percutaneous transhepatic cholangiogram catheter. OBJECTIVE: Otherwise, his abdomen is soft, nontender, and nondistended. ASSESSMENT AND PLAN: The patient had a percutaneous transhepatic cholangiogram (PTC) catheter placed for probable ascending cholangitis or at least a possible presumptive diagnosis of cholangitis given that he was septic with abnormal liver function tests and given his gastric bypass history, he was not a candidate for endoscopic retrograde cholangiopancreatography (ERCP) with his presentation of sepsis and thus at this point, I do feel that we can clamp this tube and we will see how he does over the weekend. If he tolerates this, then obviously the question is whether this can just be simply removed or whether this needs to be pulled back, a cholangiogram performed, and then removed; but I would keep it clamped over the weekend and we will see how he is doing on Thursday. Dr. Fatima is around this weekend should you have any further questions; however, he will not be seeing this patient unless you contact him for additional recommendations.
[2021-02-15] MEDS: FLUCONAZOLE 200 MG in IV 1 EA IV SCH (12:23)
[2021-02-15] MEDS: SODIUM CHLORIDE 0.9% INJ 10 ML SYR IV PRN (12:24)
[2021-02-15 14:00] VITALS: BP 95/58
--- NOTE | 2021-02-15 19:20 | IPNPDOC ---
Date Seen The patient was seen on 02/15/21. Progress Note INFECTIOUS DISEASE PROGRESS NOTE: SUBJECTIVE: Eliud was seen and examined at the bedside this morning. His attending notes he still has indwelling catheter, which he requested due to comfort and not being able to urinate while laying in bed. The patient states he still feels quite weak. His therapy has been complicated by hypotension for the past few days and his BP medications have been held. He states he does get lightheaded/dizzy upon standing. He denies any abdominal pain. His cholecystostomy tube has been clamped and has had very little drainage over the past 2-3 days. He has a normal appetite and is able to keep his food down. Otherwise, he seems to be slowly progressing through rehabilitation. OBJECTIVE PHYSICAL EXAMINATION: VITAL SIGNS: Please see below. GENERAL APPEARANCE: Morbidly obese, sitting up in bed, calm and cooperative, very pleasant, speaking in full sentences HEENT: EOMI, PERRL, sclerae non-icteric RESPIRATORY: clear to auscultation with no adventitious breath sounds appreciated CARDIOVASCULAR: Irregularly irregular rhythm with no obvious murmurs/rubs/gal lops although difficult to auscultate due to habitus ABDOMEN: Cholecystostomy tube in RUQ with very scant greenish/brownish drainage collecting in bag, no surrounding erythema, no pain with palpation, +BS, unable to determine whether organomegaly is present, no obvious masses EXTREMITIES: B/L Lower extremities are wrapped with wolfgang bandages up to the knees. Feet have nonpitting edema bilaterally : Indwelling catheter is present NEUROLOGICAL: No obvious focal deficits PSYCHIATRIC: normal mood/affect LABORATORY DATA: Please see below. IMAGING: CT ABD/PEL 02/14/21: FINDINGS: Lung bases: There are moderate interstitial fibrotic changes in both lung bases. Liver: There has been improvement of the previously noted multiple hypodense areas in the liver, predominantly located in the left lobe, presumably representing abscesses. All have decreased in size with small residual somewhat ill-defined hypodense areas visualized, the largest measures approximately 3.6 x 1.8 cm. Gallbladder: Prior cholecystectomy. There is a biliary drainage catheter entering the right lobe of the liver with the distal pigtail located in the duodenum. There is no biliary dilatation. Spleen: There is splenomegaly, the length of the liver is approximately 15.9 cm. Adrenals: Normal. Pancreas: Normal. Kidneys: 2 cysts are seen in the right kidney, largest 1.3 cm in diameter. There is no hydronephrosis bilaterally. Small and large bowel: There has been prior gastric surgery. There is sigmoid and left colonic diverticulosis without evidence of acute diverticulitis. There is no free air or obstruction. Free fluid: None. Abdominal aorta: No aneurysm or dissection. Adenopathy: None. Appendix: Not inflamed. Osseous structures: There are degenerative changes of the spine and hips. Pelvis: No mass. A Grey catheter is seen in the collapsed urinary bladder. IMPRESSION: There has been improvement of the previously noted multiple hypodense areas in the liver, predominantly located in the left lobe, presumably representing abscesses. All have decreased in size with small residual somewhat ill-defined hypodense areas visualized, the largest measures approximately 3.6 x 1.8 cm. There is a biliary drainage catheter entering the right lobe of the liver with the distal pigtail located in the duodenum. There is no biliary dilatation. ASSESSMENT: This is a 65 YO M with history of septic shock 2/2 multiple liver abscesses and possible cholangitis s/p cholecystostomy tube placement complicat ed by pseudomonas bacteremia and Parul in bile culture who presents for medical management. PLAN: -Indwelling catheter in place due to patient comfort. Please remove indwelling catheter as soon as possible to avoid infection. -Continue IV Meropenem (started 01/28/21) and Fluconazole (started 02/01/21) for now. Stop date is March 11, 2021. -Repeat liver US showed abcesses smaller in size, General surgery consulted and following. Per notes, if patient does well over the weekend will either remove the drain or do another cholangiogram. -Continue cardiac/concurrent management per primary team VS, I&O, 24H, Fishbone Vital Signs/I&O Vital Signs Date Time Temp Pulse Resp B/P (MAP) Pulse Ox O2 Delivery O2 Flow Rate FiO2 02/15/21 14:00 96.9 88 22 95/58 (70) 98 Nasal Cannula 3.0 I&O- Last 24 Hours up to 6 AM 02/15/21 06:00 Intake Total 1380 ml Output Total 1460 ml Balance -80 ml Laboratory Data 24H LABS Laboratory Tests 2 02/15/21 05:53: Immature Granulocyte % (Auto) 0.7, Neutrophils (%) (Auto) 62.7, Lymphocytes (%) (Auto) 22.1L, Monocytes (%) (Auto) 9.4H, Eosinophils (%) (Auto) 4.5H, Basophils (%) (Auto) 0.6, Neutrophils # (Auto) 5.1, Lymphocytes # (Auto) 1.8, Monocytes # (Auto) 0.8, Eosinophils # (Auto) 0.4, Basophils # (Auto) 0.1, Nucleated Red Blood Cells % (auto) 0.0, Anion Gap 5L, Glomerular Filtration Rate > 60.0, Calcium Level 7.5L, Total Bilirubin 3.6H, Direct Bilirubin 3.1H, Aspartate Amino Transf (AST/SGOT) 60H, Alanine Aminotransferase (ALT/SGPT) 72, Alkaline Phosphatase 314H, Total Protein 5.6L, Albumin 2.2L, Albumin/Globulin Ratio 0.6 CBC/BMP Laboratory Tests 02/15/21 05:53 GME ATTESTATION GME ATTESTATION My faculty preceptor for this patient encounter was physically present during the encounter and was fully available. All aspects of the patient interview, examination, medical decision making process, and medical care plan development were reviewed and approved by the faculty preceptor. The faculty preceptor is aware and concurs with the plan as stated in the body of this note and will attest to such by his/her cosignature. NIRMAL GOLDEN MD February 15, 2021 19:20
[2021-02-15 20:00] VITALS: BP 119/58
[2021-02-15] MEDS: ASPIRIN 81MG ENTERIC TABLET PO SCH (20:21)
[2021-02-15] MEDS: PANTOPRAZOLE 40MG TAB (PROTONIX) PO SCH (20:21)
[2021-02-15] MEDS: ROSUVASTATIN 10 MG TAB (CRESTOR) PO SCH (20:22)
[2021-02-15] MEDS: SENNA 8.6 MG TAB (SENOKOT) PO SCH (20:22)
[2021-02-15] MEDS: LORATADINE 10 MG TAB PO SCH (20:22)
[2021-02-16] MEDS: LEVOTHYROXINE 75MCG TABLET (0.075MG) PO SCH (05:43)
[2021-02-16] MEDS: MEROPENEM INJ 1 GM in IV 1 EA IV SCH ×3 (05:43→22:01)
[2021-02-16] MEDS: SODIUM CHLORIDE 0.9% INJ 10 ML SYR IV SCH ×2 (05:44→17:28)
[2021-02-16 06:02] VITALS: BP 114/60
[2021-02-16 07:13] LABS: ALBUMIN 2.2 GM/DL (3.2-5.2); BILIRUBIN,DIRECT 2.8 MG/DL (0.0-0.2); BILIRUBIN,TOTAL 3.4 MG/DL (0.2-1.0); TOTAL PROTEIN 5.9 GM/DL (6.4-8.2)
[2021-02-16] MEDS: IPRATROPIUM HFA INHALER 12.9 GRAMS (ATROVENT HFA) INH SCH ×3 (07:31→19:52)
[2021-02-16] MEDS: DOCUSATE SODIUM 100MG CAPSULE PO SCH ×2 (09:00→21:00)
[2021-02-16] MEDS: FUROSEMIDE 40 MG TAB PO SCH (09:00)
[2021-02-16 09:15] VITALS: BP 107/55
[2021-02-16] MEDS: LACTOBACILLUS ACIDOPHILUS CAP (BACID) PO SCH ×3 (09:19→21:40)
[2021-02-16] MEDS: FINASTERIDE 5 MG TAB PO SCH (09:19)
[2021-02-16] MEDS: predniSONE 10 MG TAB PO SCH (09:20)
[2021-02-16] MEDS: VITAMIN D 1,000 INTERNATIONAL UNITS TABLET PO SCH (09:20)
[2021-02-16] MEDS: MULTIVITAMINS/MINERALS THERAP 1 TAB PO SCH (09:20)
[2021-02-16] MEDS: MIDODRINE 5 MG TAB PO SCH ×3 (09:21→15:36)
[2021-02-16] MEDS: APIXABAN 5 MG TAB (ELIQUIS) PO SCH ×2 (09:21→21:40)
[2021-02-16] MEDS: OYSTER SHELL CALCIUM 500 MG TAB PO SCH (09:21)
[2021-02-16] MEDS: TAMSULOSIN 0.4 MG CAP PO SCH (09:21)
[2021-02-16] MEDS: METOPROLOL TART 50 MG TAB PO SCH ×2 (09:21→21:41)
[2021-02-16] MEDS: DIGOXIN 0.125 MG TAB PO SCH (09:21)
[2021-02-16] MEDS: GABAPENTIN 300 MG CAP PO SCH ×2 (09:21→21:40)
[2021-02-16] MEDS: FLUCONAZOLE 200 MG in IV 1 EA IV SCH (09:23)
[2021-02-16] MEDS: SODIUM CHLORIDE 0.9% INJ 10 ML SYR IV PRN ×2 (09:24→14:34)
[2021-02-16] MEDS: FLUTICASONE PROP 0.05% NASAL SPRAY 16 GM (FLONASE) NARES SCH ×2 (09:25→21:41)
[2021-02-16] MEDS: REMEDY PHYTOPLEX Z-GUARD PASTE 113GM TUBE (FROM STOREROOM PRODUCT) TOP SCH ×3 (09:25→21:42)
[2021-02-16 12:25] VITALS: BP 113/60
[2021-02-16 14:00] VITALS: BP 108/55
[2021-02-16] MEDS: SENNA 8.6 MG TAB (SENOKOT) PO SCH (21:00)
[2021-02-16] MEDS: ASPIRIN 81MG ENTERIC TABLET PO SCH (21:40)
[2021-02-16] MEDS: LORATADINE 10 MG TAB PO SCH (21:40)
[2021-02-16] MEDS: PANTOPRAZOLE 40MG TAB (PROTONIX) PO SCH (21:40)
[2021-02-16] MEDS: ROSUVASTATIN 10 MG TAB (CRESTOR) PO SCH (21:40)
[2021-02-16 22:00] VITALS: BP 110/58
[2021-02-17] MEDS: SODIUM CHLORIDE 0.9% INJ 10 ML SYR IV SCH ×2 (05:45→17:01)
[2021-02-17] MEDS: LEVOTHYROXINE 75MCG TABLET (0.075MG) PO SCH (05:45)
[2021-02-17] MEDS: MEROPENEM INJ 1 GM in IV 1 EA IV SCH ×3 (05:45→22:01)
[2021-02-17 06:00] VITALS: BP 131/69
[2021-02-17 07:08] LABS: ALBUMIN 2.1 GM/DL (3.2-5.2); BILIRUBIN,DIRECT 2.6 MG/DL (0.0-0.2)
[2021-02-17] MEDS: IPRATROPIUM HFA INHALER 12.9 GRAMS (ATROVENT HFA) INH SCH ×3 (07:44→20:27)
[2021-02-17] MEDS: SODIUM CHLORIDE 0.9% INJ 10 ML SYR IV PRN ×2 (08:26→12:59)
[2021-02-17] MEDS: FLUCONAZOLE 200 MG in IV 1 EA IV SCH (08:26)
[2021-02-17] MEDS: MULTIVITAMINS/MINERALS THERAP 1 TAB PO SCH (08:27)
[2021-02-17] MEDS: LACTOBACILLUS ACIDOPHILUS CAP (BACID) PO SCH ×3 (08:27→20:15)
[2021-02-17] MEDS: OYSTER SHELL CALCIUM 500 MG TAB PO SCH (08:27)
[2021-02-17] MEDS: MIDODRINE 5 MG TAB PO SCH ×3 (08:27→15:00)
[2021-02-17] MEDS: FINASTERIDE 5 MG TAB PO SCH (08:28)
[2021-02-17] MEDS: METOPROLOL TART 50 MG TAB PO SCH ×2 (08:28→20:17)
[2021-02-17] MEDS: VITAMIN D 1,000 INTERNATIONAL UNITS TABLET PO SCH (08:28)
[2021-02-17] MEDS: APIXABAN 5 MG TAB (ELIQUIS) PO SCH ×2 (08:28→20:16)
[2021-02-17] MEDS: predniSONE 10 MG TAB PO SCH (08:28)
[2021-02-17] MEDS: FUROSEMIDE 40 MG TAB PO SCH (08:28)
[2021-02-17] MEDS: GABAPENTIN 300 MG CAP PO SCH ×2 (08:28→20:15)
[2021-02-17] MEDS: DIGOXIN 0.125 MG TAB PO SCH (08:28)
[2021-02-17] MEDS: DOCUSATE SODIUM 100MG CAPSULE PO SCH ×2 (08:29→19:09)
[2021-02-17] MEDS: REMEDY PHYTOPLEX Z-GUARD PASTE 113GM TUBE (FROM STOREROOM PRODUCT) TOP SCH ×3 (08:29→20:18)
[2021-02-17] MEDS: FLUTICASONE PROP 0.05% NASAL SPRAY 16 GM (FLONASE) NARES SCH ×2 (08:29→20:17)
[2021-02-17] MEDS: TAMSULOSIN 0.4 MG CAP PO SCH (08:29)
[2021-02-17 11:53] VITALS: BP 125/74
[2021-02-17 14:45] VITALS: BP 96/54
[2021-02-17] MEDS: SENNA 8.6 MG TAB (SENOKOT) PO SCH (19:10)
[2021-02-17 20:00] VITALS: BP 132/57
[2021-02-17] MEDS: ASPIRIN 81MG ENTERIC TABLET PO SCH (20:15)
[2021-02-17] MEDS: PANTOPRAZOLE 40MG TAB (PROTONIX) PO SCH (20:16)
[2021-02-17] MEDS: LORATADINE 10 MG TAB PO SCH (20:16)
[2021-02-17] MEDS: ROSUVASTATIN 10 MG TAB (CRESTOR) PO SCH (20:17)
[2021-02-18] MEDS: SODIUM CHLORIDE 0.9% INJ 10 ML SYR IV SCH ×2 (05:53→17:40)
[2021-02-18] MEDS: MEROPENEM INJ 1 GM in IV 1 EA IV SCH ×3 (05:53→22:34)
[2021-02-18] MEDS: LEVOTHYROXINE 75MCG TABLET (0.075MG) PO SCH (05:53)
[2021-02-18 05:54] VITALS: BP 132/80
[2021-02-18 06:19] LABS: BASO % 0.4 % (0.0-1.0); EOS # 0.4 10^3/uL (0.0-0.5); EOS % 4.1 % (0.0-3.0); HEMATOCRIT 28.6 % (42.0-52.0); HEMOGLOBIN 8.5 g/dl (13.5-17.5); LYMPH % 23.1 % (24.0-44.0); MEAN CORPUSCULAR HEMOGLOBIN 28.2 pg (27.0-33.0); MEAN CORPUSCULAR HGB CONC 29.7 g/dl (32.0-36.5); MONO # 0.7 10^3/uL (0.0-0.8); MONO % 8.5 % (2.0-8.0); NEUTROPHILS # 5.4 10^3/uL (1.5-8.5); NEUTROPHILS % 63.2 % (36.0-66.0); PLATELET COUNT, AUTOMATED 162 10^3/uL (150-450); RED BLOOD COUNT 3.01 10^6/uL (4.30-6.10); WHITE BLOOD COUNT 8.6 10^3/uL (4.0-10.0)
[2021-02-18 06:52] LABS: ALBUMIN 2.2 GM/DL (3.2-5.2); BILIRUBIN,DIRECT 2.5 MG/DL (0.0-0.2); BILIRUBIN,TOTAL 2.9 MG/DL (0.2-1.0); TOTAL PROTEIN 5.7 GM/DL (6.4-8.2)
[2021-02-18] MEDS: IPRATROPIUM HFA INHALER 12.9 GRAMS (ATROVENT HFA) INH SCH ×3 (07:43→19:33)
[2021-02-18] MEDS: DOCUSATE SODIUM 100MG CAPSULE PO SCH ×2 (09:00→22:33)
[2021-02-18] MEDS: FLUTICASONE PROP 0.05% NASAL SPRAY 16 GM (FLONASE) NARES SCH ×2 (09:00→22:34)
--- NOTE | 2021-02-18 09:24 | IPNPDOC ---
PM&R Progress Note DATE OF SERVICE: February 18, 2021 Health Care Attorney Progress Note Subjective: patient stating he has no new abdominal pain since his tube was clamped, but a dull ache that comes and goes at the tube insertion site. He agrees to have puga removed today. REVIEW OF SYSTEMS: The following is a completed review of systems and has been reviewed. Review of systems otherwise unremarkable. PAIN: Patient self reports no pain EYES: No recent vision changes EARS, NOSE, & THROAT: No throat pain, or dysphagia, or rhinorrhea CARDIOVASCULAR: Denies chest pain or palpitations PULMONARY: Denies shortness of breath GASTROINTESTINAL: Denies constipation/diarrhea GENITOURINARY: +puga MUSCULOSKELETAL: generalized weakness NEUROLOGICAL: mild bilat UE tremor HEMATOLOGICAL: denies easy bruising. SKIN:: bilat LE PVD skin changes PSYCHIATRIC: Unremarkable All other review of systems found to be negative. PHYSICAL EXAMINATION: VITAL SIGNS: Please see below. GENERAL: Pleasant and cooperative. No acute distress. icteric HEENT: PERRL. Extraocular movements intact. Clear conjunctiva CARDIOVASCULAR: Irregular rate and rhythm. No murmurs, rubs, or gallops LUNGS: Clear to auscultation bilaterally. No wheezes. No rhonchi ABDOMEN: Soft, nontender, nondistended. Positive bowel sounds. Normal active bowel sounds +right upper quadrant cholecystostomy tub draining brown fluid NEUROLOGICAL: Alert and oriented times three. Cranial nerves II through XII grossly intact. Sensation grossly intact EXTREMITIES: 5-\5 strength bilateral upper extremities. 5-\5 strength right lower extremity. 5-/5 strength in left lower extremity. SKIN: bilat LE edema with hyperpigmentation ASSESSMENT:65-year-old M with past medical history of afib, chf, COPD, PVD who presents status post extensive hospital course at [facility] for sepsis s/p cholecystectomy with liver abscess PLAN: 1. Rehab- PT/OT advance mobility and ADLs, strengthen/stretch/maintain ROM all 4limbs- ambulating short distances with RW 2. 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 cardiac- hx of chronic CHF- fluid restrict, daily weights, lasix -Afib on digoxin, metoprolol, and eliquis -CAD s/p CABG with ICD/PM, ASA and beta-esau- patient with intermittent asymptomatic hypotension, discussed case with hospitalist who has adjusted metoprolol and added midodrine, c/u to monitor for low BPs, acewraps -medicine consulted to assist in overall care 4. resp- hx of COPD not on 02, will switch from Combivent to ipratropium to mitigate tachycardia -monitor for infection 5. GI-hx of cholecystectomy with recent with cholangiogram tube with liver abscess cx growing jennifer on IV diflucan (ID and surgery following), repeat CT abd/pelvis showing improvement in liver abscess size -surgery follwoing, tube clamped 02-14-21, monitoring LFTs and clinical exam 6. ID- on Meropenem for pseudomonas bacteremia started at [facility] and IV Diflucan for jennifer liver abscess cx, ID consulted and following closely, recs appreciated -c/u steroids 7. Endo- hypothyroidism c/u synthroid 8. GI ppx- protonix 9. DVT ppx on eliquis 10. Pain- tylenol prn, gabapentin 11. - BPH c/u flomax, d/c puga today 11. Dispo- TBD Allergies Coded Allergies: amiodarone (Verified Allergy, Severe, respiratory issues, 11/17/19) Vital Signs Vital Signs Date Time Temp Pulse Resp B/P (MAP) Pulse Ox O2 Delivery O2 Flow Rate FiO2 02/18/21 08:16 3.0 02/18/21 05:54 97.0 66 18 132/80 (97) 99 NIPPV (BIPAP/CPAP) Laboratory Data CBC/BMP Laboratory Tests 02/18/21 05:57 Labs 24H Laboratory Tests 2 02/18/21 05:57: Immature Granulocyte % (Auto) 0.7, Neutrophils (%) (Auto) 63.2, Lymphocytes (%) (Auto) 23.1L, Monocytes (%) (Auto) 8.5H, Eosinophils (%) (Auto) 4.1H, Basophils (%) (Auto) 0.4, Neutrophils # (Auto) 5.4, Lymphocytes # (Auto) 2.0, Monocytes # (Auto) 0.7, Eosinophils # (Auto) 0.4, Basophils # (Auto) 0.0, Nucleated Red Blood Cells % (auto) 0.0, Total Bilirubin 2.9H, Direct Bilirubin 2.5H, Aspartate Amino Transf (AST/SGOT) 66H, Alanine Aminotransferase (ALT/SGPT) 82H, Alkaline Phosphatase 386H, Total Protein 5.7L, Albumin 2.2L, Albumin/Globulin Ratio 0.6 Current Medications Current Medications Current Medications Medications (Trade) Dose Ordered Sig/Ranjeet Route PRN Reason Start Time Stop Time Status Last Admin Dose Admin Acetaminophen (Tylenol Tab) 650 mg Q4HP PRN PO fever/MILD PAIN (PS 1-4) 02/12/21 16:45 Albuterol/ Ipratropium (Combivent Respimat 100-20mcg) 1 puff RTID INH 02/13/21 08:00 02/15/21 09:50 DC 02/14/21 20:21 Apixaban (Eliquis) 5 mg BID PO 02/12/21 21:00 02/17/21 20:16 Aspirin (Ecotrin) 81 mg QHS PO 02/12/21 21:00 02/17/21 20:15 Bisacodyl (Dulcolax Suppository) 10 mg DAILYPRN PRN [place] CONSTIPATION 02/12/21 16:45 Calcium Carbonate (Oscal) 1,000 mg DAILY PO 02/13/21 09:00 02/17/21 08:27 Digoxin (Lanoxin) 0.125 mg DAILY PO 02/13/21 09:00 02/17/21 08:28 Docusate Sodium (Colace) 100 mg BID PO 02/12/21 21:00 Finasteride (Proscar) 5 mg DAILY PO 02/13/21 09:00 02/17/21 08:28 Fluconazole 200 mg/IV Miscellaneous Supplies 100 ml @ 100 mls/hr Q24H IV 02/13/21 09:00 02/17/21 08:26 Fluticasone Propionate (Flonase 0.05% Nasal [place]) 1 spray BID NARES 02/13/21 09:00 02/17/21 20:17 Furosemide (Lasix) 40 mg DAILY PO 02/13/21 09:00 02/17/21 08:28 Gabapentin (Neurontin) 300 mg BID PO 02/12/21 21:00 02/17/21 20:15 Heparin Sodium (Heparin (Flush)) 200 units ASDIRECTED PRN IV SEE LABEL COMMENTS 02/13/21 01:30 02/17/21 12:59 Heparin Sodium (Heparin (Flush)) 200 units PICC IV 02/13/21 06:00 02/18/21 05:52 Home Med (Med Rec Complete!) ASDIRECTED XX 02/12/21 19:30 02/12/21 19:29 DC Ipratropium [place] (Atrovent Hfa) 2 puff RTID INH 02/15/21 08:00 02/18/21 07:43 Lactobacillus Acidophilus (Bacid) 1 ea TID PO 02/12/21 21:00 02/17/21 20:15 Levothyroxine Sodium (Synthroid) 225 mcg DAILY@06 PO 02/13/21 06:00 02/18/21 05:53 Loratadine (Claritin) 10 mg QHS PO 02/12/21 21:00 02/17/21 20:16 Meropenem 1 gm/IV Miscellaneous Supplies 50 ml @ 100 mls/hr Q8H IV 02/12/21 22:00 02/18/21 05:53 Metoprolol Tartrate (Lopressor) 50 mg BID PO 02/14/21 21:00 02/17/21 20:17 Metoprolol Tartrate (Lopressor) 75 mg BID PO 02/13/21 21:00 02/14/21 09:33 DC 02/13/21 21:17 Midodrine (Proamatine) 5 mg 08,12,16 PO 02/14/21 12:00 02/17/21 15:00 Multivitamins (Theragram-M) 2 tab DAILY PO 02/13/21 09:00 02/17/21 08:27 Nitroglycerin (Nitrostat (1/ 150)) 0.4 mg Q5MP PRN SL CHEST PAIN 02/12/21 16:45 Pantoprazole Sodium (Protonix) 40 mg QHS PO 02/12/21 21:00 02/17/21 20:16 Polyethylene Glycol (Miralax) 1 pkt DAILY PRN PO CONSTIPATION 02/12/21 16:45 Potassium Chloride (Micro-K Extencaps) 10 meq DAILY PO 02/13/21 09:00 02/13/21 13:20 DC 02/13/21 09:51 Prednisone (Deltasone) 10 mg QAM PO 02/13/21 09:00 02/17/21 08:28 Rosuvastatin Calcium (Crestor) 20 mg QPM PO 02/12/21 21:00 02/17/21 20:17 Senna (Senokot) 1 tab QHS PO 02/12/21 21:00 Sodium Chloride (Saline Lock Flush) 10 ml ASDIRECTED PRN IV SEE LABEL COMMENTS 02/13/21 01:30 02/17/21 12:59 Sodium Chloride (Saline Lock Flush) 10 ml PICC IV 02/13/21 06:00 02/18/21 05:53 Tamsulosin HCl (Flomax) 0.4 mg DAILY PO 02/13/21 09:00 02/17/21 08:29 Vitamin D (Vitamin D) 5,000 units DAILY PO 02/13/21 09:00 02/17/21 08:28 DEMETRIUS GERBER MD February 18, 2021 09:24
[2021-02-18] MEDS: MULTIVITAMINS/MINERALS THERAP 1 TAB PO SCH (09:28)
[2021-02-18] MEDS: MIDODRINE 5 MG TAB PO SCH ×3 (09:28→17:39)
[2021-02-18] MEDS: FINASTERIDE 5 MG TAB PO SCH (09:28)
[2021-02-18] MEDS: LACTOBACILLUS ACIDOPHILUS CAP (BACID) PO SCH ×3 (09:29→22:33)
[2021-02-18] MEDS: DIGOXIN 0.125 MG TAB PO SCH (09:29)
[2021-02-18] MEDS: OYSTER SHELL CALCIUM 500 MG TAB PO SCH (09:29)
[2021-02-18] MEDS: TAMSULOSIN 0.4 MG CAP PO SCH (09:29)
[2021-02-18] MEDS: METOPROLOL TART 50 MG TAB PO SCH ×2 (09:29→22:32)
[2021-02-18] MEDS: APIXABAN 5 MG TAB (ELIQUIS) PO SCH ×2 (09:29→22:32)
[2021-02-18] MEDS: FUROSEMIDE 40 MG TAB PO SCH (09:30)
[2021-02-18] MEDS: predniSONE 10 MG TAB PO SCH (09:30)
[2021-02-18] MEDS: GABAPENTIN 300 MG CAP PO SCH ×2 (09:30→22:33)
[2021-02-18] MEDS: VITAMIN D 1,000 INTERNATIONAL UNITS TABLET PO SCH (09:30)
[2021-02-18] MEDS: REMEDY PHYTOPLEX Z-GUARD PASTE 113GM TUBE (FROM STOREROOM PRODUCT) TOP SCH ×3 (09:31→22:35)
[2021-02-18] MEDS: SODIUM CHLORIDE 0.9% INJ 10 ML SYR IV PRN ×2 (09:44→23:21)
[2021-02-18] MEDS: FLUCONAZOLE 200 MG in IV 1 EA IV SCH (09:45)
[2021-02-18 12:38] VITALS: BP 103/56
[2021-02-18 14:00] VITALS: BP 122/55
[2021-02-18 21:00] VITALS: BP 109/55
[2021-02-18] MEDS: ASPIRIN 81MG ENTERIC TABLET PO SCH (22:32)
[2021-02-18] MEDS: ROSUVASTATIN 10 MG TAB (CRESTOR) PO SCH (22:32)
[2021-02-18] MEDS: LORATADINE 10 MG TAB PO SCH (22:33)
[2021-02-18] MEDS: PANTOPRAZOLE 40MG TAB (PROTONIX) PO SCH (22:33)
[2021-02-18] MEDS: SENNA 8.6 MG TAB (SENOKOT) PO SCH (22:34)
[2021-02-19] MEDS: MEROPENEM INJ 1 GM in IV 1 EA IV SCH ×3 (05:34→21:19)
[2021-02-19] MEDS: SODIUM CHLORIDE 0.9% INJ 10 ML SYR IV PRN ×4 (05:34→21:57)
[2021-02-19] MEDS: LEVOTHYROXINE 75MCG TABLET (0.075MG) PO SCH (06:14)
[2021-02-19] MEDS: SODIUM CHLORIDE 0.9% INJ 10 ML SYR IV SCH ×2 (06:14→16:20)
[2021-02-19 06:30] VITALS: BP 114/60
[2021-02-19] MEDS: IPRATROPIUM HFA INHALER 12.9 GRAMS (ATROVENT HFA) INH SCH ×3 (07:16→19:20)
[2021-02-19] MEDS: MIDODRINE 5 MG TAB PO SCH ×3 (08:04→16:16)
[2021-02-19] MEDS: LACTOBACILLUS ACIDOPHILUS CAP (BACID) PO SCH ×3 (08:04→20:26)
[2021-02-19] MEDS: APIXABAN 5 MG TAB (ELIQUIS) PO SCH ×2 (08:05→20:26)
[2021-02-19] MEDS: DIGOXIN 0.125 MG TAB PO SCH (08:05)
[2021-02-19] MEDS: predniSONE 10 MG TAB PO SCH (08:05)
[2021-02-19] MEDS: MULTIVITAMINS/MINERALS THERAP 1 TAB PO SCH (08:05)
[2021-02-19] MEDS: TAMSULOSIN 0.4 MG CAP PO SCH (08:05)
[2021-02-19] MEDS: METOPROLOL TART 50 MG TAB PO SCH ×2 (08:06→20:26)
[2021-02-19] MEDS: OYSTER SHELL CALCIUM 500 MG TAB PO SCH (08:06)
[2021-02-19] MEDS: FINASTERIDE 5 MG TAB PO SCH (08:06)
[2021-02-19] MEDS: GABAPENTIN 300 MG CAP PO SCH ×2 (08:06→20:26)
[2021-02-19] MEDS: FUROSEMIDE 40 MG TAB PO SCH (08:06)
[2021-02-19] MEDS: VITAMIN D 1,000 INTERNATIONAL UNITS TABLET PO SCH (08:07)
[2021-02-19] MEDS: FLUTICASONE PROP 0.05% NASAL SPRAY 16 GM (FLONASE) NARES SCH ×2 (08:11→20:27)
[2021-02-19] MEDS: REMEDY PHYTOPLEX Z-GUARD PASTE 113GM TUBE (FROM STOREROOM PRODUCT) TOP SCH ×3 (08:12→20:27)
[2021-02-19] MEDS: DOCUSATE SODIUM 100MG CAPSULE PO SCH ×2 (08:14→21:00)
[2021-02-19] MEDS: FLUCONAZOLE 200 MG in IV 1 EA IV SCH (09:03)
[2021-02-19 14:00] VITALS: BP 130/77
--- NOTE | 2021-02-19 14:36 | IPNPDOC ---
PM&R Progress Note DATE OF SERVICE: February 19, 2021 Board Design Engineer Progress Note Subjective: Patient seen in his room stating he feels he will be ready to go home by the end of the week, but needs to work on stairs first. He reports dull ache in his side is not present to day. REVIEW OF SYSTEMS: The following is a completed review of systems and has been reviewed. Review of systems otherwise unremarkable. PAIN: Patient self reports no pain EYES: No recent vision changes EARS, NOSE, & THROAT: No throat pain, or dysphagia, or rhinorrhea CARDIOVASCULAR: Denies chest pain or palpitations PULMONARY: Denies shortness of breath GASTROINTESTINAL: Denies constipation/diarrhea GENITOURINARY: +puga MUSCULOSKELETAL: generalized weakness NEUROLOGICAL: mild bilat UE tremor HEMATOLOGICAL: denies easy bruising. SKIN:: bilat LE PVD skin changes PSYCHIATRIC: Unremarkable All other review of systems found to be negative. PHYSICAL EXAMINATION: VITAL SIGNS: Please see below. GENERAL: Pleasant and cooperative. No acute distress. icteric HEENT: PERRL. Extraocular movements intact. Clear conjunctiva CARDIOVASCULAR: Irregular rate and rhythm. No murmurs, rubs, or gallops LUNGS: Clear to auscultation bilaterally. No wheezes. No rhonchi ABDOMEN: Soft, nontender, nondistended. Positive bowel sounds. Normal active bowel sounds +right upper quadrant cholecystostomy tub draining brown fluid NEUROLOGICAL: Alert and oriented times three. Cranial nerves II through XII grossly intact. Sensation grossly intact EXTREMITIES: 5-\5 strength bilateral upper extremities. 5-\5 strength right lo wer extremity. 5-/5 strength in left lower extremity. SKIN: bilat LE edema with hyperpigmentation, right leg with patch of abrasion (does not appear infected) ASSESSMENT:65-year-old M with past medical history of afib, chf, COPD, PVD who presents status post extensive hospital course at [facility] for sepsis s/p cholecystectomy with liver abscess PLAN: 1. Rehab- PT/OT advance mobility and ADLs, strengthen/stretch/maintain ROM all 4limbs- ambulating short distances with RW 2. 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 cardiac- hx of chronic CHF- fluid restrict, daily weights, lasix -Afib on digoxin, metoprolol, and eliquis -CAD s/p CABG with ICD/PM, ASA and beta-esau- patient with intermittent asymptomatic hypotension, discussed case with hospitalist who has adjusted metoprolol and added midodrine, c/u to monitor for low BPs, acewraps -medicine consulted to assist in overall care 4. resp- hx of COPD not on 02, will switch from Combivent to ipratropium to mitigate tachycardia -monitor for infection 5. GI-hx of cholecystectomy with recent with cholangiogram tube with liver abscess cx growing jennifer on IV diflucan (ID and surgery following), repeat CT abd/pelvis showing improvement in liver abscess size -surgery follwoing, tube clamped 02-14-21, monitoring LFTs and clinical exam- discussed with Dr. Cabrera, c/u to keeop tube clamped and he will see patient next week to discuss further intervention 6. ID- on Meropenem for pseudomonas bacteremia started at [facility] and IV Diflucan for jennifer liver abscess cx, ID consulted and following closely, recs appreciated, patient will need home infusion set up prior to d/c -c/u steroids 7. Endo- hypothyroidism c/u synthroid 8. GI ppx- protonix 9. DVT ppx on eliquis 10. Pain- tylenol prn, gabapentin 11. - BPH c/u flomax, d/c puga 02/19/21, so far voiding well 11. Dispo- TBD Allergies Coded Allergies: amiodarone (Verified Allergy, Severe, respiratory issues, 11/17/19) Vital Signs Vital Signs Date Time Temp Pulse Resp B/P (MAP) Pulse Ox O2 Delivery O2 Flow Rate FiO2 02/19/21 08:05 68 02/19/21 08:00 3.0 02/19/21 06:30 97.4 97 114/60 (78) 97 Nasal Cannula Current Medications Current Medications Current Medications Medications (Trade) Dose Ordered Sig/Ranjeet Route PRN Reason Start Time Stop Time Status Last Admin Dose Admin Acetaminophen (Tylenol Tab) 650 mg Q4HP PRN PO fever/MILD PAIN (PS 1-4) 02/12/21 16:45 Albuterol/ Ipratropium (Combivent Respimat 100-20mcg) 1 puff RTID INH 02/13/21 08:00 02/15/21 09:50 DC 02/14/21 20:21 Apixaban (Eliquis) 5 mg BID PO 02/12/21 21:00 02/19/21 08:05 Aspirin (Ecotrin) 81 mg QHS PO 02/12/21 21:00 02/18/21 22:32 Bisacodyl (Dulcolax Suppository) 10 mg DAILYPRN PRN [place] CONSTIPATION 02/12/21 16:45 Calcium Carbonate (Oscal) 1,000 mg DAILY PO 02/13/21 09:00 02/19/21 08:06 Digoxin (Lanoxin) 0.125 mg DAILY PO 02/13/21 09:00 02/19/21 08:05 Docusate Sodium (Colace) 100 mg BID PO 02/12/21 21:00 Finasteride (Proscar) 5 mg DAILY PO 02/13/21 09:00 02/19/21 08:06 Fluconazole 200 mg/IV Miscellaneous Supplies 100 ml @ 100 mls/hr Q24H IV 02/13/21 09:00 02/19/21 09:03 Fluticasone Propionate (Flonase 0.05% Nasal [place]) 1 spray BID NARES 02/13/21 09:00 02/18/21 22:34 Furosemide (Lasix) 40 mg DAILY PO 02/13/21 09:00 02/19/21 08:06 Gabapentin (Neurontin) 300 mg BID PO 02/12/21 21:00 02/19/21 08:06 Heparin Sodium (Heparin (Flush)) 200 units ASDIRECTED PRN IV SEE LABEL COMMENTS 02/13/21 01:30 02/19/21 10:15 Heparin Sodium (Heparin (Flush)) 200 units PICC IV 02/13/21 06:00 02/19/21 06:14 Home Med (Med Rec Complete!) ASDIRECTED XX 02/12/21 19:30 02/12/21 19:29 DC Ipratropium [place] (Atrovent Hfa) 2 puff RTID INH 02/15/21 08:00 02/19/21 12:55 Lactobacillus Acidophilus (Bacid) 1 ea TID PO 02/12/21 21:00 02/19/21 08:04 Levothyroxine Sodium (Synthroid) 225 mcg DAILY@06 PO 02/13/21 06:00 02/19/21 06:14 Loratadine (Claritin) 10 mg QHS PO 02/12/21 21:00 02/18/21 22:33 Meropenem 1 gm/IV Miscellaneous Supplies 50 ml @ 100 mls/hr Q8H IV 02/12/21 22:00 02/19/21 05:34 Metoprolol Tartrate (Lopressor) 50 mg BID PO 02/14/21 21:00 02/19/21 08:06 Metoprolol Tartrate (Lopressor) 75 mg BID PO 02/13/21 21:00 02/14/21 09:33 DC 02/13/21 21:17 Midodrine (Proamatine) 5 mg 08,12,16 PO 02/14/21 12:00 02/19/21 12:29 Multivitamins (Theragram-M) 2 tab DAILY PO 02/13/21 09:00 02/19/21 08:05 Nitroglycerin (Nitrostat (1/ 150)) 0.4 mg Q5MP PRN SL CHEST PAIN 02/12/21 16:45 Pantoprazole Sodium (Protonix) 40 mg QHS PO 02/12/21 21:00 02/18/21 22:33 Polyethylene Glycol (Miralax) 1 pkt DAILY PRN PO CONSTIPATION 02/12/21 16:45 Potassium Chloride (Micro-K Extencaps) 10 meq DAILY PO 02/13/21 09:00 02/13/21 13:20 DC 02/13/21 09:51 Prednisone (Deltasone) 10 mg QAM PO 02/13/21 09:00 02/19/21 08:05 Rosuvastatin Calcium (Crestor) 20 mg QPM PO 02/12/21 21:00 02/18/21 22:32 Senna (Senokot) 1 tab QHS PO 02/12/21 21:00 Sodium Chloride (Saline Lock Flush) 10 ml ASDIRECTED PRN IV SEE LABEL COMMENTS 02/13/21 01:30 02/19/21 10:14 Sodium Chloride (Saline Lock Flush) 10 ml PICC IV 02/13/21 06:00 02/19/21 06:14 Tamsulosin HCl (Flomax) 0.4 mg DAILY PO 02/13/21 09:00 02/19/21 08:05 Vitamin D (Vitamin D) 5,000 units DAILY PO 02/13/21 09:00 02/19/21 08:07 DEMETRIUS GERBER MD February 19, 2021 14:36
--- NOTE | 2021-02-19 17:26 | IPNPDOC ---
Date Seen The patient was seen on 02/19/21. Progress Note INFECTIOUS DISEASE PROGRESS NOTE: SUBJECTIVE: Eliud was seen and examined at the bedside this afternoon. His biliary drain has been clamped since 02/15/2021. He denies any abdominal pain since that time. He has been eating and drinking well and having normal bowel movements. He denies any nausea/vomiting. He is doing well with therapy and was able to walk to the therapy gym today. He is currently working on doing stairs with this PT. Otherwise, no complaints. He is eager to go home. OBJECTIVE PHYSICAL EXAMINATION: VITAL SIGNS: Please see below. GENERAL APPEARANCE: Morbidly obese, sitting up at the bedside, calm and cooperative, very pleasant, speaking in full sentences HEENT: EOMI, PERRL, sclerae non-icteric RESPIRATORY: clear to auscultation with no adventitious breath sounds appreciated CARDIOVASCULAR: Irregularly irregular rhythm with no obvious murmurs/rubs/gallops although difficult to auscultate due to habitus ABDOMEN: Cholecystostomy tube in RUQ with very scant greenish/brownish drainage that had collected in the bag but is now clamped, no surrounding erythema, no pain with palpation, +BS, unable to determine whether organomegaly is present due to habitus, no obvious masses EXTREMITIES: B/L Lower extremities are wrapped with wolfgang bandages up to the knees. Feet have nonpitting edema bilaterally NEUROLOGICAL: No obvious focal deficits PSYCHIATRIC: normal mood/affect LABORATORY DATA: Please see below. ASSESSMENT: This is a 65 YO M with history of septic shock 2/2 multiple liver abscesses and possible cholangitis s/p cholecystostomy tube placement complicated by pseudomonas bacteremia and Parul in bile culture who presents for medical management and IV antibiotic therapy. His hyperbilirubinemia and transaminitis have both improved. PLAN: -Continue IV Meropenem (started 01/28/21) and Fluconazole (started 02/01/21) for now. On discharge, he can go home on oral Levaquin 750mg and oral Fluconazole 200mg. Stop date for both is March 11, 2021. -General surgery (Rick) consulted and following. Per EMR, he recommends ERCP after drain is removed. Patient will need to be referred to GI for this reason. Will reach out to Dr. Cabrera this afternoon for further recommendations. -Continue cardiac/concurrent management per primary team. VS, I&O, 24H, Fishbone Vital Signs/I&O Vital Signs Date Time Temp Pulse Resp B/P (MAP) Pulse Ox O2 Delivery O2 Flow Rate FiO2 02/19/21 14:00 96.2 96 18 130/77 (94) 94 Nasal Cannula 3.0 I&O- Last 24 Hours up to 6 AM 02/19/21 06:00 Intake Total 540 ml Output Total 1575 ml Balance -1035 ml GME ATTESTATION GME ATTESTATION My faculty preceptor for this patient encounter was physically present during the encounter and was fully available. All aspects of the patient interview, examination, medical decision making process, and medical care plan development were reviewed and approved by the faculty preceptor. The faculty preceptor is aware and concurs with the plan as stated in the body of this note and will attest to such by his/her cosignature. NIRMAL GOLDEN MD February 19, 2021 17:26
[2021-02-19 19:59] VITALS: BP 108/53
[2021-02-19] MEDS: PANTOPRAZOLE 40MG TAB (PROTONIX) PO SCH (20:26)
[2021-02-19] MEDS: LORATADINE 10 MG TAB PO SCH (20:26)
[2021-02-19] MEDS: ROSUVASTATIN 10 MG TAB (CRESTOR) PO SCH (20:26)
[2021-02-19] MEDS: ASPIRIN 81MG ENTERIC TABLET PO SCH (20:26)
[2021-02-19] MEDS: VANICREAM MOISTURIZING SKIN CREAM 113GM TUBE TOP SCH (20:27)
[2021-02-19] MEDS: SENNA 8.6 MG TAB (SENOKOT) PO SCH (21:00)
[2021-02-20] MEDS: SODIUM CHLORIDE 0.9% INJ 10 ML SYR IV SCH ×2 (06:28→17:00)
[2021-02-20] MEDS: MEROPENEM INJ 1 GM in IV 1 EA IV SCH ×3 (06:28→21:00)
[2021-02-20] MEDS: LEVOTHYROXINE 75MCG TABLET (0.075MG) PO SCH (06:29)
[2021-02-20 06:35] VITALS: BP 104/54
[2021-02-20 06:46] LABS: BASO % 0.3 % (0.0-1.0); EOS # 0.4 10^3/uL (0.0-0.5); EOS % 4.4 % (0.0-3.0); HEMATOCRIT 31.3 % (42.0-52.0); HEMOGLOBIN 9.4 g/dl (13.5-17.5); LYMPH # 2.8 10^3/uL (1.5-5.0); LYMPH % 27.8 % (24.0-44.0); MEAN CORPUSCULAR HEMOGLOBIN 28.5 pg (27.0-33.0); MEAN CORPUSCULAR VOLUME 94.8 fl (80.0-96.0); MONO # 0.8 10^3/uL (0.0-0.8); MONO % 8.2 % (2.0-8.0); NEUTROPHILS # 5.8 10^3/uL (1.5-8.5); NEUTROPHILS % 58.7 % (36.0-66.0); PLATELET COUNT, AUTOMATED 199 10^3/uL (150-450); WHITE BLOOD COUNT 9.9 10^3/uL (4.0-10.0)
[2021-02-20 07:12] LABS: ERYTHROCYTE SEDIMENTATION RATE 67 mm/hr (0-20)
[2021-02-20 07:13] LABS: BLOOD UREA NITROGEN 19 MG/DL (7-18); C REACTIVE PROTEIN QUANTITATIV 2.31 MG/DL (0.00-0.30); CARBON DIOXIDE LEVEL 31 MEQ/L (21-32); CHLORIDE LEVEL 105 MEQ/L (98-107); CREATININE FOR GFR 0.97 MG/DL (0.70-1.30); GLOMERULAR FILTRATION RATE > 60.0 (>49); GLUCOSE, FASTING 93 MG/DL (70-100); SODIUM LEVEL 143 MEQ/L (136-145)
[2021-02-20] MEDS: IPRATROPIUM HFA INHALER 12.9 GRAMS (ATROVENT HFA) INH SCH ×3 (07:19→20:30)
[2021-02-20] MEDS: DOCUSATE SODIUM 100MG CAPSULE PO SCH ×2 (07:21→20:07)
[2021-02-20 07:25] VITALS: BP 118/56
[2021-02-20] MEDS: APIXABAN 5 MG TAB (ELIQUIS) PO SCH ×2 (07:31→20:07)
[2021-02-20] MEDS: MIDODRINE 5 MG TAB PO SCH ×3 (07:31→15:06)
[2021-02-20] MEDS: FINASTERIDE 5 MG TAB PO SCH (07:31)
[2021-02-20] MEDS: GABAPENTIN 300 MG CAP PO SCH ×2 (07:31→20:07)
[2021-02-20] MEDS: MULTIVITAMINS/MINERALS THERAP 1 TAB PO SCH (07:31)
[2021-02-20] MEDS: TAMSULOSIN 0.4 MG CAP PO SCH (07:31)
[2021-02-20] MEDS: FLUCONAZOLE 100 MG TAB PO SCH (07:32)
[2021-02-20] MEDS: FUROSEMIDE 40 MG TAB PO SCH (07:32)
[2021-02-20] MEDS: predniSONE 10 MG TAB PO SCH (07:32)
[2021-02-20] MEDS: LACTOBACILLUS ACIDOPHILUS CAP (BACID) PO SCH ×3 (07:32→20:07)
[2021-02-20] MEDS: VITAMIN D 1,000 INTERNATIONAL UNITS TABLET PO SCH (07:35)
[2021-02-20] MEDS: METOPROLOL TART 50 MG TAB PO SCH ×2 (07:36→20:07)
[2021-02-20] MEDS: OYSTER SHELL CALCIUM 500 MG TAB PO SCH (07:36)
[2021-02-20] MEDS: FLUTICASONE PROP 0.05% NASAL SPRAY 16 GM (FLONASE) NARES SCH ×2 (07:37→20:07)
[2021-02-20] MEDS: REMEDY PHYTOPLEX Z-GUARD PASTE 113GM TUBE (FROM STOREROOM PRODUCT) TOP SCH ×3 (07:37→20:08)
[2021-02-20] MEDS: VANICREAM MOISTURIZING SKIN CREAM 113GM TUBE TOP SCH ×2 (07:37→20:08)
[2021-02-20] MEDS: DIGOXIN 0.125 MG TAB PO SCH (07:38)
--- NOTE | 2021-02-20 10:34 | IPNPDOC ---
PM&R Progress Note DATE OF SERVICE: February 20, 2021 Action Finisher Progress Note Subjective: Patient concerned his feet feel more swollen, bu notes his calves are getting smaller. He would like to continue therapy through the weekend to work on stairs and go home Thursday, REVIEW OF SYSTEMS: The following is a completed review of systems and has been reviewed. Review of systems otherwise unremarkable. PAIN: Patient self reports no pain EYES: No recent vision changes EARS, NOSE, & THROAT: No throat pain, or dysphagia, or rhinorrhea CARDIOVASCULAR: Denies chest pain or palpitations PULMONARY: Denies shortness of breath GASTROINTESTINAL: Denies constipation/diarrhea GENITOURINARY: denies dysuria MUSCULOSKELETAL: generalized weakness NEUROLOGICAL: mild bilat UE tremor HEMATOLOGICAL: denies easy bruising. SKIN:: bilat LE PVD skin changes PSYCHIATRIC: Unremarkable All other review of systems found to be negative. PHYSICAL EXAMINATION: VITAL SIGNS: Please see below. GENERAL: Pleasant and cooperative. No acute distress. icteric HEENT: PERRL. Extraocular movements intact. Clear conjunctiva CARDIOVASCULAR: Irregular rate and rhythm. No murmurs, rubs, or gallops LUNGS: Clear to auscultation bilaterally. No wheezes. No rhonchi ABDOMEN: Soft, nontender, nondistended. Positive bowel sounds. Normal active bowel sounds +right upper quadrant cholecystostomy tub draining brown fluid NEUROLOGICAL: Alert and oriented times three. Cranial nerves II through XII grossly intact. Sensation grossly intact EXTREMITIES: 5-\5 strength bilateral upper extremities. 5-\5 strength right lower extremity. 5-/5 strength in left lower extremity. SKIN: bilat LE edema (improving)with hyperpigmentation, right leg with patch of abrasion (does not appear infected) ASSESSMENT:65-year-old M with past medical history of afib, chf, COPD, PVD who presents status post extensive hospital course at [facility] for sepsis s/p cholecy stectomy with liver abscess PLAN: 1. Rehab- PT/OT advance mobility and ADLs, strengthen/stretch/maintain ROM all 4limbs- ambulating short distances with RW 2. 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 cardiac- hx of chronic CHF- fluid restrict, daily weights, lasix -Afib on digoxin, metoprolol, and eliquis -CAD s/p CABG with ICD/PM, ASA and beta-esau- patient with intermittent asymptomatic hypotension, discussed case with hospitalist who has adjusted metoprolol and added midodrine, c/u to monitor for low BPs, acewraps- patient's BPs and overall exercise tolerance improving -medicine consulted to assist in overall care 4. resp- hx of COPD not on 02, switched from Combivent to ipratropium to mitigate tachycardia -monitor for infection 5. GI-hx of cholecystectomy with recent with cholangiogram tube for liver abscess cx growing jennifer on IV diflucan (ID and surgery following), repeat CT abd/pelvis showing improvement in liver abscess size -surgery following, tube clamped 02-14-21, monitoring LFTs and clinical exam- discussed with Dr. Cabrera, c/u to keep tube clamped and he will see patient next week to discuss further intervention 6. ID- on Meropenem for pseudomonas bacteremia started at [facility] and IV Diflucan for jennifer liver abscess cx, ID consulted and following closely, recs appreciated, patient will need home infusion set up prior to d/c, switched to oral Diflucan 02-20-21, c/u IV meropenem for now -c/u steroids 7. Endo- hypothyroidism c/u synthroid 8. GI ppx- protonix 9. DVT ppx on eliquis 10. Pain- tylenol prn, gabapentin 11. - BPH c/u flomax, d/c puga 02/19/21, so far voiding well 11. Dispo- 02-26-21 to home Allergies Coded Allergies: amiodarone (Verified Allergy, Severe, respiratory issues, 11/17/19) Vital Signs Vital Signs Date Time Temp Pulse Resp B/P (MAP) Pulse Ox O2 Delivery O2 Flow Rate FiO2 02/20/21 07:59 3.0 02/20/21 07:38 94 02/20/21 07:36 118/56 02/20/21 06:35 96.3 18 95 Nasal Cannula Laboratory Data CBC/BMP Laboratory Tests 02/20/21 06:21 Labs 24H Laboratory Tests 2 02/20/21 06:21: Immature Granulocyte % (Auto) 0.6, Neutrophils (%) (Auto) 58.7, Lymphocytes (%) (Auto) 27.8, Monocytes (%) (Auto) 8.2H, Eosinophils (%) (Auto) 4.4H, Basophils (%) (Auto) 0.3, Neutrophils # (Auto) 5.8, Lymphocytes # (Auto) 2.8, Monocytes # (Auto) 0.8, Eosinophils # (Auto) 0.4, Basophils # (Auto) 0.0, Nucleated Red Blood Cells % (auto) 0.0, Erythrocyte Sedimentation Rate 67H, Anion Gap 7L, Glomerular Filtration Rate > 60.0, Calcium Level 9.0, C-Reactive Protein, Quantitative 2.31H Current Medications Current Medications Current Medications Medications (Trade) Dose Ordered Sig/Ranjeet Route PRN Reason Start Time Stop Time Status Last Admin Dose Admin Acetaminophen (Tylenol Tab) 650 mg Q4HP PRN PO fever/MILD PAIN (PS 1-4) 02/12/21 16:45 Albuterol/ Ipratropium (Combivent Respimat 100-20mcg) 1 puff RTID INH 02/13/21 08:00 02/15/21 09:50 DC 02/14/21 20:21 Apixaban (Eliquis) 5 mg BID PO 02/12/21 21:00 02/20/21 07:31 Aspirin (Ecotrin) 81 mg QHS PO 02/12/21 21:00 02/19/21 20:26 Bisacodyl (Dulcolax Suppository) 10 mg DAILYPRN PRN [place] CONSTIPATION 02/12/21 16:45 Calcium Carbonate (Oscal) 1,000 mg DAILY PO 02/13/21 09:00 02/20/21 07:36 Digoxin (Lanoxin) 0.125 mg DAILY PO 02/13/21 09:00 02/20/21 07:38 Docusate Sodium (Colace) 100 mg BID PO 02/12/21 21:00 Emollient Cream (Vanicream) 1 dose BID TOP 02/19/21 21:00 02/20/21 07:37 Finasteride (Proscar) 5 mg DAILY PO 02/13/21 09:00 02/20/21 07:31 Fluconazole (Diflucan Tablet) 200 mg DAILY PO 02/20/21 09:00 02/20/21 07:32 Fluconazole 200 mg/IV Miscellaneous Supplies 100 ml @ 100 mls/hr Q24H IV 02/13/21 09:00 02/19/21 16:39 DC 02/19/21 09:03 Fluticasone Propionate (Flonase 0.05% Nasal [place]) 1 spray BID NARES 02/13/21 09:00 02/20/21 07:37 Furosemide (Lasix) 40 mg DAILY PO 02/13/21 09:00 02/20/21 07:32 Gabapentin (Neurontin) 300 mg BID PO 02/12/21 21:00 02/20/21 07:31 Heparin Sodium (Heparin (Flush)) 200 units ASDIRECTED PRN IV SEE LABEL COMMENTS 02/13/21 01:30 02/19/21 21:58 Heparin Sodium (Heparin (Flush)) 200 units PICC IV 02/13/21 06:00 02/20/21 06:28 Home Med (Med Rec Complete!) ASDIRECTED XX 02/12/21 19:30 02/12/21 19:29 DC Ipratropium [place] (Atrovent Hfa) 2 puff RTID INH 02/15/21 08:00 02/20/21 07:19 Lactobacillus Acidophilus (Bacid) 1 ea TID PO 02/12/21 21:00 02/20/21 07:32 Levothyroxine Sodium (Synthroid) 225 mcg DAILY@06 PO 02/13/21 06:00 02/20/21 06:29 Loratadine (Claritin) 10 mg QHS PO 02/12/21 21:00 02/19/21 20:26 Meropenem 1 gm/IV Miscellaneous Supplies 50 ml @ 100 mls/hr Q8H IV 02/12/21 22:00 02/20/21 06:28 Metoprolol Tartrate (Lopressor) 50 mg BID PO 02/14/21 21:00 02/20/21 07:36 Metoprolol Tartrate (Lopressor) 75 mg BID PO 02/13/21 21:00 02/14/21 09:33 DC 02/13/21 21:17 Midodrine (Proamatine) 5 mg 08,12,16 PO 02/14/21 12:00 02/20/21 07:31 Multivitamins (Theragram-M) 2 tab DAILY PO 02/13/21 09:00 02/20/21 07:31 Nitroglycerin (Nitrostat (1/ 150)) 0.4 mg Q5MP PRN SL CHEST PAIN 02/12/21 16:45 Pantoprazole Sodium (Protonix) 40 mg QHS PO 02/12/21 21:00 02/19/21 20:26 Polyethylene Glycol (Miralax) 1 pkt DAILY PRN PO CONSTIPATION 02/12/21 16:45 Potassium Chloride (Micro-K Extencaps) 10 meq DAILY PO 02/13/21 09:00 02/13/21 13:20 DC 02/13/21 09:51 Prednisone (Deltasone) 10 mg QAM PO 02/13/21 09:00 02/20/21 07:32 Rosuvastatin Calcium (Crestor) 20 mg QPM PO 02/12/21 21:00 02/19/21 20:26 Senna (Senokot) 1 tab QHS PO 02/12/21 21:00 Sodium Chloride (Saline Lock Flush) 10 ml ASDIRECTED PRN IV SEE LABEL COMMENTS 02/13/21 01:30 02/19/21 21:57 Sodium Chloride (Saline Lock Flush) 10 ml PICC IV 02/13/21 06:00 02/20/21 06:28 Tamsulosin HCl (Flomax) 0.4 mg DAILY PO 02/13/21 09:00 02/20/21 07:31 Vitamin D (Vitamin D) 5,000 units DAILY PO 02/13/21 09:00 02/20/21 07:35 DEMETRIUS GERBER MD February 20, 2021 10:34
[2021-02-20 12:09] VITALS: BP 132/66
[2021-02-20 14:00] VITALS: BP 112/55
[2021-02-20] MEDS: SODIUM CHLORIDE 0.9% INJ 10 ML SYR IV PRN (14:14)
[2021-02-20 20:00] VITALS: BP 141/66
[2021-02-20] MEDS: PANTOPRAZOLE 40MG TAB (PROTONIX) PO SCH (20:07)
[2021-02-20] MEDS: ROSUVASTATIN 10 MG TAB (CRESTOR) PO SCH (20:07)
[2021-02-20] MEDS: ASPIRIN 81MG ENTERIC TABLET PO SCH (20:07)
[2021-02-20] MEDS: SENNA 8.6 MG TAB (SENOKOT) PO SCH (20:07)
[2021-02-20] MEDS: LORATADINE 10 MG TAB PO SCH (20:07)
[2021-02-21 05:11] VITALS: BP 160/77
[2021-02-21] MEDS: LEVOTHYROXINE 75MCG TABLET (0.075MG) PO SCH (06:00)
[2021-02-21] MEDS: MEROPENEM INJ 1 GM in IV 1 EA IV SCH ×3 (06:00→21:06)
[2021-02-21] MEDS: SODIUM CHLORIDE 0.9% INJ 10 ML SYR IV SCH ×2 (06:01→17:12)
[2021-02-21] MEDS: MIDODRINE 5 MG TAB PO SCH ×3 (08:00→15:32)
[2021-02-21] MEDS: IPRATROPIUM HFA INHALER 12.9 GRAMS (ATROVENT HFA) INH SCH ×3 (08:12→20:15)
[2021-02-21] MEDS: DOCUSATE SODIUM 100MG CAPSULE PO SCH ×2 (09:00→20:30)
[2021-02-21] MEDS: TAMSULOSIN 0.4 MG CAP PO SCH (09:18)
[2021-02-21] MEDS: MULTIVITAMINS/MINERALS THERAP 1 TAB PO SCH (09:18)
[2021-02-21] MEDS: LACTOBACILLUS ACIDOPHILUS CAP (BACID) PO SCH ×3 (09:18→20:29)
[2021-02-21] MEDS: APIXABAN 5 MG TAB (ELIQUIS) PO SCH ×2 (09:18→20:29)
[2021-02-21] MEDS: FLUCONAZOLE 100 MG TAB PO SCH (09:19)
[2021-02-21] MEDS: FINASTERIDE 5 MG TAB PO SCH (09:20)
[2021-02-21] MEDS: FLUTICASONE PROP 0.05% NASAL SPRAY 16 GM (FLONASE) NARES SCH ×2 (09:20→20:30)
[2021-02-21] MEDS: predniSONE 10 MG TAB PO SCH (09:20)
[2021-02-21] MEDS: GABAPENTIN 300 MG CAP PO SCH ×2 (09:20→20:29)
[2021-02-21] MEDS: OYSTER SHELL CALCIUM 500 MG TAB PO SCH (09:20)
[2021-02-21] MEDS: VITAMIN D 1,000 INTERNATIONAL UNITS TABLET PO SCH (09:20)
[2021-02-21] MEDS: REMEDY PHYTOPLEX Z-GUARD PASTE 113GM TUBE (FROM STOREROOM PRODUCT) TOP SCH ×3 (09:21→20:32)
[2021-02-21] MEDS: VANICREAM MOISTURIZING SKIN CREAM 113GM TUBE TOP SCH ×2 (09:21→20:32)
[2021-02-21 09:22] VITALS: BP 144/86
[2021-02-21] MEDS: FUROSEMIDE 20 MG TAB PO SCH (09:26)
[2021-02-21] MEDS: DIGOXIN 0.125 MG TAB PO SCH (09:27)
[2021-02-21] MEDS: METOPROLOL TART 50 MG TAB PO SCH ×2 (09:27→20:29)
--- NOTE | 2021-02-21 09:42 | IPNPDOC ---
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 REVIEW OF SYSTEMS: The following is a completed review of systems and has been reviewed. Review of systems otherwise unremarkable. PAIN: Patient self reports no pain EYES: No recent vision changes EARS, NOSE, & THROAT: No throat pain, or dysphagia, or rhinorrhea CARDIOVASCULAR: Denies chest pain or palpitations PULMONARY: Denies shortness of breath GASTROINTESTINAL: Denies constipation/diarrhea GENITOURINARY: denies dysuria MUSCULOSKELETAL: generalized weakness NEUROLOGICAL: mild bilat UE tremor HEMATOLOGICAL: denies easy bruising. SKIN:: bilat LE PVD skin changes PSYCHIATRIC: Unremarkable All other review of systems found to be negative. PHYSICAL EXAMINATION: VITAL SIGNS: Please see below. GENERAL: Pleasant and cooperative. No acute distress. icteric HEENT: PERRL. Extraocular movements intact. Clear conjunctiva CARDIOVASCULAR: Irregular rate and rhythm. No murmurs, rubs, or gallops LUNGS: Clear to auscultation bilaterally. No wheezes. No rhonchi ABDOMEN: Soft, nontender, nondistended. Positive bowel sounds. Normal active bowel sounds +right upper quadrant cholecystostomy tub draining brown fluid NEUROLOGICAL: Alert and oriented times three. Cranial nerves II through XII grossly intact. Sensation grossly intact EXTREMITIES: 5-\5 strength bilateral upper extremities. 5-\5 strength right lower extremity. 5-/5 strength in left lower extremity. SKIN: bilat LE edema (improving)with hyperpigmentation, right leg with patch of abrasion (does not appear infected) -dorsum of right foot hyperpigmented, no pain with palpation no warmth ASSESSMENT:65-year-old M with past medical history of afib, chf, COPD, PVD who presents status post extensive hospital course at [facility] for sepsis s/p cholecystectomy with liver abscess PLAN: 1. Rehab- PT/OT advance mobility and ADLs, strengthen/stretch/maintain ROM all 4limbs- ambulating short distances with RW 2. 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 cardiac- hx of chronic CHF- fluid restrict, daily weights, lasix -Afib on digoxin, metoprolol, and eliquis -CAD s/p CABG with ICD/PM, ASA and beta-esau- patient with intermittent asymptomatic hypotension, discussed case with hospitalist who has adjusted metoprolol and added midodrine, c/u to monitor for low BPs, acewraps- patient's BPs and overall exercise tolerance improving -medicine consulted to assist in overall care 4. resp- hx of COPD not on 02, switched from Combivent to ipratropium to mitigate tachycardia -monitor for infection 5. GI-hx of cholecystectomy with recent cholangiogram tube for liver abscess cx growing jennifer on IV diflucan (ID and surgery following), repeat CT abd/pelvis showing improvement in liver abscess size -surgery following, tube clamped 02-14-21, monitoring LFTs and clinical exam- discussed with Dr. Cabrera, c/u to keep tube clamped and he will see patient next week to discuss further intervention 6. ID- on Meropenem for pseudomonas bacteremia started at [facility] and IV Diflucan for jennifer liver abscess cx, ID consulted and following closely, recs appreciated, patient will need home infusion set up prior to d/c, switched to oral Diflucan 02-20-21, c/u IV meropenem for now -c/u steroids 7. Endo- hypothyroidism c/u synthroid 8. GI ppx- protonix 9. DVT ppx on eliquis 10. Pain- tylenol prn, gabapentin 11. - BPH c/u flomax, d/c puga 02/19/21, so far voiding well 11. Dispo- 02-26-21 to home Allergies Coded Allergies: amiodarone (Verified Allergy, Severe, respiratory issues, 11/17/19) Vital Signs Vital Signs Date Time Temp Pulse Resp B/P (MAP) Pulse Ox O2 Delivery O2 Flow Rate FiO2 02/21/21 09:27 105 144/86 02/21/21 08:00 3.0 02/21/21 05:11 96.9 18 94 NIPPV (BIPAP/CPAP) Current Medications Current Medications Current Medications Medications (Trade) Dose Ordered Sig/Ranjeet Route PRN Reason Start Time Stop Time Status Last Admin Dose Admin Acetaminophen (Tylenol Tab) 650 mg Q4HP PRN PO fever/MILD PAIN (PS 1-4) 02/12/21 16:45 Albuterol/ Ipratropium (Combivent Respimat 100-20mcg) 1 puff RTID INH 5/19/21 08:00 02/15/21 09:50 DC 02/14/21 20:21 Apixaban (Eliquis) 5 mg BID PO 02/12/21 21:00 02/21/21 09:18 Aspirin (Ecotrin) 81 mg QHS PO 02/12/21 21:00 02/20/21 20:07 Bisacodyl (Dulcolax Suppository) 10 mg DAILYPRN PRN [place] CONSTIPATION 02/12/21 16:45 Calcium Carbonate (Oscal) 1,000 mg DAILY PO 02/13/21 09:00 02/21/21 09:20 Digoxin (Lanoxin) 0.125 mg DAILY PO 02/13/21 09:00 02/21/21 09:27 Docusate Sodium (Colace) 100 mg BID PO 02/12/21 21:00 Emollient Cream (Vanicream) 1 dose BID TOP 02/19/21 21:00 02/21/21 09:21 Finasteride (Proscar) 5 mg DAILY PO 02/13/21 09:00 02/21/21 09:20 Fluconazole (Diflucan Tablet) 200 mg DAILY PO 02/20/21 09:00 02/21/21 09:19 Fluconazole 200 mg/IV Miscellaneous Supplies 100 ml @ 100 mls/hr Q24H IV 02/13/21 09:00 02/19/21 16:39 DC 02/19/21 09:03 Fluticasone Propionate (Flonase 0.05% Nasal [place]) 1 spray BID NARES 02/13/21 09:00 02/21/21 09:20 Furosemide (Lasix) 40 mg DAILY PO 02/13/21 09:00 02/20/21 12:35 DC 02/20/21 07:32 Furosemide (Lasix) 60 mg DAILY PO 02/21/21 09:00 02/21/21 09:26 Gabapentin (Neurontin) 300 mg BID PO 02/12/21 21:00 02/21/21 09:20 Heparin Sodium (Heparin (Flush)) 200 units ASDIRECTED PRN IV SEE LABEL COMMENTS 02/13/21 01:30 02/20/21 14:14 Heparin Sodium (Heparin (Flush)) 200 units PICC IV 02/13/21 06:00 02/21/21 06:00 Home Med (Med Rec Complete!) ASDIRECTED XX 02/12/21 19:30 02/12/21 19:29 DC Ipratropium [place] (Atrovent Hfa) 2 puff RTID INH 02/15/21 08:00 02/21/21 08:12 Lactobacillus Acidophilus (Bacid) 1 ea TID PO 02/12/21 21:00 02/21/21 09:18 Levothyroxine Sodium (Synthroid) 225 mcg DAILY@06 PO 02/13/21 06:00 02/21/21 06:00 Loratadine (Claritin) 10 mg QHS PO 02/12/21 21:00 02/20/21 20:07 Meropenem 1 gm/IV Miscellaneous Supplies 50 ml @ 100 mls/hr Q8H IV 02/12/21 22:00 02/21/21 06:00 Metoprolol Tartrate (Lopressor) 50 mg BID PO 02/14/21 21:00 02/21/21 09:27 Metoprolol Tartrate (Lopressor) 75 mg BID PO 02/13/21 21:00 02/14/21 09:33 DC 02/13/21 21:17 Midodrine (Proamatine) 5 mg 08,12,16 PO 02/14/21 12:00 02/20/21 15:06 Multivitamins (Theragram-M) 2 tab DAILY PO 02/13/21 09:00 02/21/21 09:18 Nitroglycerin (Nitrostat (1/ 150)) 0.4 mg Q5MP PRN SL CHEST PAIN 02/12/21 16:45 Pantoprazole Sodium (Protonix) 40 mg QHS PO 02/12/21 21:00 02/20/21 20:07 Polyethylene Glycol (Miralax) 1 pkt DAILY PRN PO CONSTIPATION 02/12/21 16:45 Potassium Chloride (Micro-K Extencaps) 10 meq DAILY PO 02/13/21 09:00 02/13/21 13:20 DC 02/13/21 09:51 Prednisone (Deltasone) 10 mg QAM PO 02/13/21 09:00 02/21/21 09:20 Rosuvastatin Calcium (Crestor) 20 mg QPM PO 02/12/21 21:00 02/20/21 20:07 Senna (Senokot) 1 tab QHS PO 02/12/21 21:00 Sodium Chloride (Saline Lock Flush) 10 ml ASDIRECTED PRN IV SEE LABEL COMMENTS 02/13/21 01:30 02/20/21 14:14 Sodium Chloride (Saline Lock Flush) 10 ml PICC IV 02/13/21 06:00 02/21/21 06:01 Tamsulosin HCl (Flomax) 0.4 mg DAILY PO 02/13/21 09:00 02/21/21 09:18 Vitamin D (Vitamin D) 5,000 units DAILY PO 02/13/21 09:00 02/21/21 09:20 DEMETRIUS GERBER MD February 21, 2021 09:42
[2021-02-21 11:14] VITALS: BP 136/76
[2021-02-21] MEDS: SODIUM CHLORIDE 0.9% INJ 10 ML SYR IV PRN (13:09)
[2021-02-21 14:00] VITALS: BP 123/60
[2021-02-21 20:00] VITALS: BP 138/65
[2021-02-21] MEDS: LORATADINE 10 MG TAB PO SCH (20:29)
[2021-02-21] MEDS: ASPIRIN 81MG ENTERIC TABLET PO SCH (20:29)
[2021-02-21] MEDS: ROSUVASTATIN 10 MG TAB (CRESTOR) PO SCH (20:29)
[2021-02-21] MEDS: PANTOPRAZOLE 40MG TAB (PROTONIX) PO SCH (20:29)
[2021-02-21] MEDS: SENNA 8.6 MG TAB (SENOKOT) PO SCH (20:30)
[2021-02-22] MEDS: MEROPENEM INJ 1 GM in IV 1 EA IV SCH ×3 (05:20→21:29)
[2021-02-22] MEDS: LEVOTHYROXINE 75MCG TABLET (0.075MG) PO SCH (05:21)
[2021-02-22] MEDS: SODIUM CHLORIDE 0.9% INJ 10 ML SYR IV SCH ×2 (05:21→17:41)
[2021-02-22 06:00] VITALS: BP 136/81
[2021-02-22 06:25] LABS: BASO % 0.6 % (0.0-1.0); EOS # 0.4 10^3/uL (0.0-0.5); HEMATOCRIT 29.5 % (42.0-52.0); LYMPH % 27.8 % (24.0-44.0); MEAN CORPUSCULAR HEMOGLOBIN 29.2 pg (27.0-33.0); MEAN CORPUSCULAR HGB CONC 30.5 g/dl (32.0-36.5); MEAN CORPUSCULAR VOLUME 95.8 fl (80.0-96.0); MONO # 0.7 10^3/uL (0.0-0.8); MONO % 10.1 % (2.0-8.0); NEUTROPHILS % 55.9 % (36.0-66.0); PLATELET COUNT, AUTOMATED 177 10^3/uL (150-450); RED BLOOD COUNT 3.08 10^6/uL (4.30-6.10); WHITE BLOOD COUNT 7.2 10^3/uL (4.0-10.0)
[2021-02-22 06:46] LABS: BLOOD UREA NITROGEN 18 MG/DL (7-18); CALCIUM LEVEL 8.3 MG/DL (8.8-10.2); CARBON DIOXIDE LEVEL 35 MEQ/L (21-32); CHLORIDE LEVEL 104 MEQ/L (98-107); CREATININE FOR GFR 0.91 MG/DL (0.70-1.30); GLOMERULAR FILTRATION RATE > 60.0 (>49); GLUCOSE, FASTING 83 MG/DL (70-100); POTASSIUM SERUM 3.6 MEQ/L (3.5-5.1); SODIUM LEVEL 144 MEQ/L (136-145)
[2021-02-22] MEDS: IPRATROPIUM HFA INHALER 12.9 GRAMS (ATROVENT HFA) INH SCH ×3 (07:14→20:56)
[2021-02-22] MEDS: DOCUSATE SODIUM 100MG CAPSULE PO SCH ×2 (09:00→21:00)
[2021-02-22 09:22] VITALS: BP 132/84
[2021-02-22] MEDS: MULTIVITAMINS/MINERALS THERAP 1 TAB PO SCH (09:23)
[2021-02-22] MEDS: LACTOBACILLUS ACIDOPHILUS CAP (BACID) PO SCH ×3 (09:23→21:28)
[2021-02-22] MEDS: predniSONE 10 MG TAB PO SCH (09:24)
[2021-02-22] MEDS: APIXABAN 5 MG TAB (ELIQUIS) PO SCH ×2 (09:24→21:29)
[2021-02-22] MEDS: METOPROLOL TART 50 MG TAB PO SCH ×2 (09:24→21:29)
[2021-02-22] MEDS: TAMSULOSIN 0.4 MG CAP PO SCH (09:24)
[2021-02-22] MEDS: FLUCONAZOLE 100 MG TAB PO SCH (09:24)
[2021-02-22] MEDS: GABAPENTIN 300 MG CAP PO SCH ×2 (09:24→21:28)
[2021-02-22] MEDS: FINASTERIDE 5 MG TAB PO SCH (09:24)
[2021-02-22] MEDS: VITAMIN D 1,000 INTERNATIONAL UNITS TABLET PO SCH (09:24)
[2021-02-22] MEDS: FUROSEMIDE 20 MG TAB PO SCH (09:24)
[2021-02-22] MEDS: OYSTER SHELL CALCIUM 500 MG TAB PO SCH (09:25)
[2021-02-22] MEDS: MIDODRINE 5 MG TAB PO SCH ×3 (09:25→16:00)
[2021-02-22] MEDS: DIGOXIN 0.125 MG TAB PO SCH (09:25)
[2021-02-22] MEDS: REMEDY PHYTOPLEX Z-GUARD PASTE 113GM TUBE (FROM STOREROOM PRODUCT) TOP SCH ×3 (09:26→21:30)
[2021-02-22] MEDS: VANICREAM MOISTURIZING SKIN CREAM 113GM TUBE TOP SCH ×2 (09:26→21:30)
[2021-02-22] MEDS: FLUTICASONE PROP 0.05% NASAL SPRAY 16 GM (FLONASE) NARES SCH ×2 (09:26→21:30)
--- NOTE | 2021-02-22 09:41 | IPNPDOC ---
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 He denies any abdominal pain. REVIEW OF SYSTEMS: The following is a completed review of systems and has been reviewed. Review of systems otherwise unremarkable. PAIN: Patient self reports no pain EYES: No recent vision changes EARS, NOSE, & THROAT: No throat pain, or dysphagia, or rhinorrhea CARDIOVASCULAR: Denies chest pain or palpitations PULMONARY: Denies shortness of breath GASTROINTESTINAL: Denies constipation/diarrhea GENITOURINARY: denies dysuria MUSCULOSKELETAL: generalized weakness NEUROLOGICAL: mild bilat UE tremor (resolved) HEMATOLOGICAL: denies easy bruising. SKIN:: bilat LE PVD skin changes PSYCHIATRIC: Unremarkable All other review of systems found to be negative. PHYSICAL EXAMINATION: VITAL SIGNS: Please see below. GENERAL: Pleasant and cooperative. No acute distress. icteric HEENT: PERRL. Extraocular movements intact. Clear conjunctiva CARDIOVASCULAR: Irregular rate and rhythm. No murmurs, rubs, or gallops LUNGS: Clear to auscultation bilaterally. No wheezes. No rhonchi ABDOMEN: Soft, nontender, nondistended. Positive bowel sounds. Normal active bowel sounds +right upper quadrant cholecystostomy tub draining brown fluid NEUROLOGICAL: Alert and oriented times three. Cranial nerves II through XII grossly intact. Sensation grossly intact EXTREMITIES: 5-\5 strength bilateral upper extremities. 5-\5 strength right lower extremity. 5-/5 strength in left lower extremity. SKIN: bilat LE edema (improving)with hyperpigmentation, right leg with patch of abrasion (does not appear infected) -dorsum of right foot hyperpigmented, no pain with palpation no warmth ASSESSMENT:65-year-old M with past medical history of afib, chf, COPD, PVD who presents status post extensive hospital course at [facility] for sepsis s/p cholecystectomy with liver abscess PLAN: 1. Rehab- PT/OT advance mobility and ADLs, strengthen/stretch/maintain ROM all 4limbs- ambulating short distances with RW-room privileges 2. 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 cardiac- hx of chronic CHF- fluid restrict, daily weights, lasix -Afib on digoxin, metoprolol, and eliquis -CAD s/p CABG with ICD/PM, ASA and beta-esau- patient with intermittent asymptomatic hypotension, discussed case with hospitalist who has adjusted metoprolol and added midodrine, c/u to monitor for low BPs, acewraps- patient's BPs and overall exercise tolerance improving, patient will f/u with Dr. Mejía on d/c to review cardiac meds -medicine consulted to assist in overall care 4. resp- hx of COPD not on , switched from Combivent to ipratropium to mitigate tachycardia -monitor for infection 5. GI-hx of cholecystectomy with recent cholangiogram tube for liver abscess cx growing jennifer on IV diflucan (ID and surgery following), repeat CT abd/pelvis showing improvement in liver abscess size -surgery following, tube clamped 02-14-21, monitoring LFTs and clinical exam- discussed with Dr. Cabrera, c/u to keep tube clamped and he will see patient this weekend to review plan, c/u to monitor LFTs and defer to surgery for further intervention 6. ID- jennifer liver abscess cx, ID consulted and following closely, ines appreciated, switched to oral Diflucan 02-20-21, c/u IV meropenem for now and switch to Levaquin on d/, no infusion necessary, Dr. Juan José chacon appreciated, jacki matos f/u with ID on d/c -c/u steroids 7. Endo- hypothyroidism c/u synthroid 8. GI ppx- protonix 9. DVT ppx on eliquis 10. Pain- tylenol prn, gabapentin 11. - BPH c/u flomax, d/c puga 02/19/21, voiding well 11. Dispo- 02-26-21 to home, progressing towards goals Allergies Coded Allergies: amiodarone (Verified Allergy, Severe, respiratory issues, 11/17/19) Vital Signs Vital Signs Date Time Temp Pulse Resp B/P (MAP) Pulse Ox O2 Delivery O2 Flow Rate FiO2 02/22/21 09:25 72 02/22/21 09:24 132/84 02/22/21 08:00 3.0 02/22/21 06:00 96.7 18 94 Nasal Cannula Laboratory Data CBC/BMP Laboratory Tests 02/22/21 06:07 Labs 24H Laboratory Tests 2 02/22/21 06:07: Immature Granulocyte % (Auto) 0.6, Neutrophils (%) (Auto) 55.9, Lymphocytes (%) (Auto) 27.8, Monocytes (%) (Auto) 10.1H, Eosinophils (%) (Auto) 5.0H, Basophils (%) (Auto) 0.6, Neutrophils # (Auto) 4.0, Lymphocytes # (Auto) 2.0, Monocytes # (Auto) 0.7, Eosinophils # (Auto) 0.4, Basophils # (Auto) 0.0, Nucleated Red Blood Cells % (auto) 0.0, Anion Gap 5L, Glomerular Filtration Rate > 60.0, Calcium Level 8.3L Current Medications Current Medications Current Medications Medications (Trade) Dose Ordered Sig/Ranjeet Route PRN Reason Start Time Stop Time Status Last Admin Dose Admin Acetaminophen (Tylenol Tab) 650 mg Q4HP PRN PO fever/MILD PAIN (PS 1-4) 02/12/21 16:45 Albuterol/ Ipratropium (Combivent Respimat 100-20mcg) 1 puff RTID INH 02/13/21 08:00 02/15/21 09:50 DC 02/14/21 20:21 Apixaban (Eliquis) 5 mg BID PO 02/12/21 21:00 02/22/21 09:24 Aspirin (Ecotrin) 81 mg QHS PO 02/12/21 21:00 02/21/21 20:29 Bisacodyl (Dulcolax Suppository) 10 mg DAILYPRN PRN [place] CONSTIPATION 02/12/21 16:45 Calcium Carbonate (Oscal) 1,000 mg DAILY PO 02/13/21 09:00 02/22/21 09:25 Digoxin (Lanoxin) 0.125 mg DAILY PO 02/13/21 09:00 02/22/21 09:25 Docusate Sodium (Colace) 100 mg BID PO 02/12/21 21:00 Emollient Cream (Vanicream) 1 dose BID TOP 02/19/21 21:00 02/22/21 09:26 Finasteride (Proscar) 5 mg DAILY PO 02/13/21 09:00 02/22/21 09:24 Fluconazole (Diflucan Tablet) 200 mg DAILY PO 02/20/21 09:00 02/22/21 09:24 Fluconazole 200 mg/IV Miscellaneous Supplies 100 ml @ 100 mls/hr Q24H IV 02/13/21 09:00 02/19/21 16:39 DC 02/19/21 09:03 Fluticasone Propionate (Flonase 0.05% Nasal [place]) 1 spray BID NARES 02/13/21 09:00 02/22/21 09:26 Furosemide (Lasix) 40 mg DAILY PO 02/13/21 09:00 02/20/21 12:35 DC 02/20/21 07:32 Furosemide (Lasix) 60 mg DAILY PO 02/21/21 09:00 02/22/21 09:24 Gabapentin (Neurontin) 300 mg BID PO 02/12/21 21:00 02/22/21 09:24 Heparin Sodium (Heparin (Flush)) 200 units ASDIRECTED PRN IV SEE LABEL COMMENTS 02/13/21 01:30 02/21/21 13:09 Heparin Sodium (Heparin (Flush)) 200 units PICC IV 02/13/21 06:00 02/22/21 05:21 Home Med (Med Rec Complete!) ASDIRECTED XX 02/12/21 19:30 02/12/21 19:29 DC Ipratropium [place] (Atrovent Hfa) 2 puff RTID INH 02/15/21 08:00 02/22/21 07:14 Lactobacillus Acidophilus (Bacid) 1 ea TID PO 02/12/21 21:00 02/22/21 09:23 Levothyroxine Sodium (Synthroid) 225 mcg DAILY@06 PO 02/13/21 06:00 02/22/21 05:21 Loratadine (Claritin) 10 mg QHS PO 02/12/21 21:00 02/21/21 20:29 Meropenem 1 gm/IV Miscellaneous Supplies 50 ml @ 100 mls/hr Q8H IV 02/12/21 22:00 02/22/21 05:20 Metoprolol Tartrate (Lopressor) 50 mg BID PO 02/14/21 21:00 02/22/21 09:24 Metoprolol Tartrate (Lopressor) 75 mg BID PO 02/13/21 21:00 02/14/21 09:33 DC 02/13/21 21:17 Midodrine (Proamatine) 5 mg 08,12,16 PO 02/14/21 12:00 02/22/21 09:25 Multivitamins (Theragram-M) 2 tab DAILY PO 02/13/21 09:00 02/22/21 09:23 Nitroglycerin (Nitrostat (1/ 150)) 0.4 mg Q5MP PRN SL CHEST PAIN 02/12/21 16:45 Pantoprazole Sodium (Protonix) 40 mg QHS PO 02/12/21 21:00 02/21/21 20:29 Polyethylene Glycol (Miralax) 1 pkt DAILY PRN PO CONSTIPATION 02/12/21 16:45 Potassium Chloride (Micro-K Extencaps) 10 meq DAILY PO 02/13/21 09:00 02/13/21 13:20 DC 02/13/21 09:51 Prednisone (Deltasone) 10 mg QAM PO 02/13/21 09:00 02/22/21 09:24 Rosuvastatin Calcium (Crestor) 20 mg QPM PO 02/12/21 21:00 02/21/21 20:29 Senna (Senokot) 1 tab QHS PO 02/12/21 21:00 Sodium Chloride (Saline Lock Flush) 10 ml ASDIRECTED PRN IV SEE LABEL COMMENTS 02/13/21 01:30 02/21/21 13:09 Sodium Chloride (Saline Lock Flush) 10 ml PICC IV 02/13/21 06:00 02/22/21 05:21 Tamsulosin HCl (Flomax) 0.4 mg DAILY PO 02/13/21 09:00 02/22/21 09:24 Vitamin D (Vitamin D) 5,000 units DAILY PO 02/13/21 09:00 02/22/21 09:24 DEMETRIUS GERBER MD February 22, 2021 09:41
[2021-02-22 10:45] LABS: ALBUMIN 2.3 GM/DL (3.2-5.2); BILIRUBIN,DIRECT 2.2 MG/DL (0.0-0.2); BILIRUBIN,TOTAL 2.7 MG/DL (0.2-1.0); TOTAL PROTEIN 6.5 GM/DL (6.4-8.2)
[2021-02-22 11:59] VITALS: BP_SYST 140; BP_SYST 141; BP_DIAS 73
[2021-02-22] MEDS: SODIUM CHLORIDE 0.9% INJ 10 ML SYR IV PRN ×2 (13:07→22:23)
[2021-02-22 14:00] VITALS: BP 142/64
--- NOTE | 2021-02-22 17:03 | IPN ---
PROGRESS NOTE DATE: 02/22/2021 Eliud is doing very well. He denies any nausea, vomiting, or diarrhea. No fever or chills. His right upper quadrant drain is clamped. He is not having any increased symptoms. His labs are stable. Hypotension has resolved. His shortness of breath is stable. He has no cough. White count 7.2, hemoglobin 9, hematocrit 29.5, platelets 177, 56% neutrophils, 28% lymphocytes, 10% monocytes. Sodium 144, potassium 3.6, chloride 104, bicarbonate 35, BUN 18, creatinine 0.91, glucose 83, calcium 8.3. Bilirubin 2.7, stable, down from 6.8. AST 88, which is slightly more elevated, ALT 103, and alkaline phosphatase 478, which is also slightly more elevated than previously. PHYSICAL EXAMINATION: Temperature is 98, pulse 72, respirations 18, blood pressure 142/64, oxygen saturation 99% on 3 liters nasal cannula. HEART: Normal S1, S2. No murmurs, rubs, or gallops appreciated. LUNGS: Diminished at the bases but clear. No wheezes, rales, or rhonchi. ABDOMEN: Soft, nontender. Morbidly obese. Right upper quadrant drain, clamped. EXTREMITIES: Ankle edema +[address] abdomen and pelvis done on February 13 shows improvement in the previously noted multiple hypodense areas in the liver, predominantly in the left lobe, representing abscesses. All have decreased in size with small residual areas, the largest being 3.6 x 1.8 cm, the bile catheter drainage in the right lobe of the liver with a pigtail located in the duodenum. IMPRESSION: Liver abscess with Pseudomonas aeruginosa bacteremia, on intravenous (IV) meropenem, 1 gram every 8 hours, and fluconazole, switched to oral, as it has great bioavailability. Patient tolerating antibiotics well. His bile drain has been clamped, and patient's liver function tests (LFTs) have slightly increased. Suggest continuing close monitoring and possibly obtain a followup liver ultrasound if they continue to increase. PLAN: Continue with IV meropenem until the date of discharge. Once he is discharged, since his Pseudomonas aeruginosa was susceptible to levofloxacin, he could be switched to oral Levaquin upon discharge to finish his course until March 11. Continue oral fluconazole until March 11 as well. If LFTs continue to rise, consider obtaining a followup liver ultrasound. Patient to follow in my office in 7-10 days after discharge. Case will be discussed with Dr. Cabrera, who will be deciding on his bile duct drain. If patient needs endoscopic retrograde cholangiopancreatography (ERCP), this will need to be done in [place], as the patient had gastric bypass done by Dr. Murillo.
[2021-02-22 20:15] VITALS: BP 155/70
[2021-02-22] MEDS: SENNA 8.6 MG TAB (SENOKOT) PO SCH (21:00)
[2021-02-22] MEDS: ASPIRIN 81MG ENTERIC TABLET PO SCH (21:28)
[2021-02-22] MEDS: ROSUVASTATIN 10 MG TAB (CRESTOR) PO SCH (21:28)
[2021-02-22] MEDS: PANTOPRAZOLE 40MG TAB (PROTONIX) PO SCH (21:29)
[2021-02-22] MEDS: LORATADINE 10 MG TAB PO SCH (21:29)
[2021-02-23] MEDS: MEROPENEM INJ 1 GM in IV 1 EA IV SCH ×3 (05:25→21:05)
[2021-02-23] MEDS: SODIUM CHLORIDE 0.9% INJ 10 ML SYR IV PRN ×3 (05:25→22:15)
[2021-02-23] MEDS: LEVOTHYROXINE 75MCG TABLET (0.075MG) PO SCH (05:26)
[2021-02-23] MEDS: SODIUM CHLORIDE 0.9% INJ 10 ML SYR IV SCH ×2 (05:26→14:52)
[2021-02-23 05:47] LABS: BASO % 0.3 % (0.0-1.0); EOS # 0.3 10^3/uL (0.0-0.5); EOS % 3.9 % (0.0-3.0); HEMATOCRIT 31.5 % (42.0-52.0); HEMOGLOBIN 9.6 g/dl (13.5-17.5); LYMPH # 2.8 10^3/uL (1.5-5.0); LYMPH % 31.9 % (24.0-44.0); MEAN CORPUSCULAR HEMOGLOBIN 29.4 pg (27.0-33.0); MEAN CORPUSCULAR HGB CONC 30.5 g/dl (32.0-36.5); MEAN CORPUSCULAR VOLUME 96.3 fl (80.0-96.0); MONO # 0.8 10^3/uL (0.0-0.8); MONO % 9.2 % (2.0-8.0); NEUTROPHILS # 4.8 10^3/uL (1.5-8.5); NEUTROPHILS % 54.1 % (36.0-66.0); PLATELET COUNT, AUTOMATED 196 10^3/uL (150-450); RED BLOOD COUNT 3.27 10^6/uL (4.30-6.10); WHITE BLOOD COUNT 8.8 10^3/uL (4.0-10.0)
[2021-02-23 05:49] VITALS: BP 141/61
[2021-02-23 06:26] LABS: ALBUMIN 2.6 GM/DL (3.2-5.2); ALT/SGPT 107 U/L (12-78); BILIRUBIN,TOTAL 2.6 MG/DL (0.2-1.0); BLOOD UREA NITROGEN 20 MG/DL (7-18); CALCIUM LEVEL 8.8 MG/DL (8.8-10.2); CARBON DIOXIDE LEVEL 36 MEQ/L (21-32); CHLORIDE LEVEL 102 MEQ/L (98-107); GLOMERULAR FILTRATION RATE > 60.0 (>49); GLUCOSE, FASTING 87 MG/DL (70-100); POTASSIUM SERUM 3.9 MEQ/L (3.5-5.1); SODIUM LEVEL 143 MEQ/L (136-145); TOTAL PROTEIN 6.2 GM/DL (6.4-8.2)
[2021-02-23] MEDS: IPRATROPIUM HFA INHALER 12.9 GRAMS (ATROVENT HFA) INH SCH ×2 (07:11→20:32)
[2021-02-23] MEDS: APIXABAN 5 MG TAB (ELIQUIS) PO SCH ×2 (08:20→20:56)
[2021-02-23] MEDS: METOPROLOL TART 50 MG TAB PO SCH ×2 (08:20→20:56)
[2021-02-23] MEDS: MIDODRINE 5 MG TAB PO SCH ×3 (08:21→17:02)
[2021-02-23] MEDS: DIGOXIN 0.125 MG TAB PO SCH (08:21)
[2021-02-23] MEDS: TAMSULOSIN 0.4 MG CAP PO SCH (08:21)
[2021-02-23] MEDS: GABAPENTIN 300 MG CAP PO SCH ×2 (08:21→20:56)
[2021-02-23] MEDS: LACTOBACILLUS ACIDOPHILUS CAP (BACID) PO SCH ×3 (08:21→20:56)
[2021-02-23] MEDS: FLUCONAZOLE 100 MG TAB PO SCH (08:21)
[2021-02-23] MEDS: predniSONE 10 MG TAB PO SCH (08:21)
[2021-02-23] MEDS: FINASTERIDE 5 MG TAB PO SCH (08:21)
[2021-02-23] MEDS: OYSTER SHELL CALCIUM 500 MG TAB PO SCH (08:22)
[2021-02-23] MEDS: FUROSEMIDE 20 MG TAB PO SCH (08:22)
[2021-02-23] MEDS: MULTIVITAMINS/MINERALS THERAP 1 TAB PO SCH (08:22)
[2021-02-23] MEDS: VITAMIN D 1,000 INTERNATIONAL UNITS TABLET PO SCH (08:22)
[2021-02-23] MEDS: FLUTICASONE PROP 0.05% NASAL SPRAY 16 GM (FLONASE) NARES SCH ×2 (08:23→20:57)
[2021-02-23] MEDS: DOCUSATE SODIUM 100MG CAPSULE PO SCH ×2 (08:23→20:58)
[2021-02-23] MEDS: REMEDY PHYTOPLEX Z-GUARD PASTE 113GM TUBE (FROM STOREROOM PRODUCT) TOP SCH ×3 (08:23→20:58)
[2021-02-23] MEDS: VANICREAM MOISTURIZING SKIN CREAM 113GM TUBE TOP SCH ×2 (08:29→20:58)
[2021-02-23 14:00] VITALS: BP 134/63
[2021-02-23 20:15] VITALS: BP 118/55
[2021-02-23] MEDS: ASPIRIN 81MG ENTERIC TABLET PO SCH (20:56)
[2021-02-23] MEDS: ROSUVASTATIN 10 MG TAB (CRESTOR) PO SCH (20:56)
[2021-02-23] MEDS: SENNA 8.6 MG TAB (SENOKOT) PO SCH (20:57)
[2021-02-23] MEDS: LORATADINE 10 MG TAB PO SCH (20:57)
[2021-02-23] MEDS: PANTOPRAZOLE 40MG TAB (PROTONIX) PO SCH (20:57)
[2021-02-24] MEDS: LEVOTHYROXINE 75MCG TABLET (0.075MG) PO SCH (05:27)
[2021-02-24] MEDS: MEROPENEM INJ 1 GM in IV 1 EA IV SCH ×3 (05:27→21:16)
[2021-02-24] MEDS: SODIUM CHLORIDE 0.9% INJ 10 ML SYR IV PRN ×2 (05:27→21:57)
[2021-02-24 05:39] VITALS: BP 127/87
[2021-02-24] MEDS: IPRATROPIUM HFA INHALER 12.9 GRAMS (ATROVENT HFA) INH SCH ×3 (06:08→20:05)
[2021-02-24] MEDS: SODIUM CHLORIDE 0.9% INJ 10 ML SYR IV SCH ×2 (06:08→13:54)
[2021-02-24] MEDS: DOCUSATE SODIUM 100MG CAPSULE PO SCH ×2 (08:13→21:00)
[2021-02-24] MEDS: FLUCONAZOLE 100 MG TAB PO SCH (08:13)
[2021-02-24] MEDS: APIXABAN 5 MG TAB (ELIQUIS) PO SCH ×2 (08:13→21:17)
[2021-02-24] MEDS: MIDODRINE 5 MG TAB PO SCH ×3 (08:13→16:30)
[2021-02-24] MEDS: MULTIVITAMINS/MINERALS THERAP 1 TAB PO SCH (08:14)
[2021-02-24] MEDS: OYSTER SHELL CALCIUM 500 MG TAB PO SCH (08:14)
[2021-02-24] MEDS: GABAPENTIN 300 MG CAP PO SCH ×2 (08:14→21:16)
[2021-02-24] MEDS: VITAMIN D 1,000 INTERNATIONAL UNITS TABLET PO SCH (08:14)
[2021-02-24] MEDS: LACTOBACILLUS ACIDOPHILUS CAP (BACID) PO SCH ×3 (08:15→21:16)
[2021-02-24] MEDS: predniSONE 10 MG TAB PO SCH (08:15)
[2021-02-24] MEDS: DIGOXIN 0.125 MG TAB PO SCH (08:15)
[2021-02-24] MEDS: TAMSULOSIN 0.4 MG CAP PO SCH (08:15)
[2021-02-24] MEDS: REMEDY PHYTOPLEX Z-GUARD PASTE 113GM TUBE (FROM STOREROOM PRODUCT) TOP SCH ×3 (08:16→21:18)
[2021-02-24] MEDS: FINASTERIDE 5 MG TAB PO SCH (08:16)
[2021-02-24] MEDS: METOPROLOL TART 50 MG TAB PO SCH ×2 (08:16→21:16)
[2021-02-24] MEDS: FLUTICASONE PROP 0.05% NASAL SPRAY 16 GM (FLONASE) NARES SCH ×2 (08:16→21:17)
[2021-02-24] MEDS: VANICREAM MOISTURIZING SKIN CREAM 113GM TUBE TOP SCH ×2 (08:17→21:17)
[2021-02-24] MEDS: FUROSEMIDE 20 MG TAB PO SCH (11:27)
[2021-02-24 14:00] VITALS: BP 132/60
[2021-02-24 20:00] VITALS: BP 145/73
[2021-02-24] MEDS: SENNA 8.6 MG TAB (SENOKOT) PO SCH (21:00)
[2021-02-24] MEDS: ROSUVASTATIN 10 MG TAB (CRESTOR) PO SCH (21:16)
[2021-02-24] MEDS: ASPIRIN 81MG ENTERIC TABLET PO SCH (21:16)
[2021-02-24] MEDS: LORATADINE 10 MG TAB PO SCH (21:16)
[2021-02-24] MEDS: PANTOPRAZOLE 40MG TAB (PROTONIX) PO SCH (21:16)
[2021-02-25 05:38] VITALS: BP 161/84
[2021-02-25] MEDS: MEROPENEM INJ 1 GM in IV 1 EA IV SCH ×3 (05:47→21:45)
[2021-02-25] MEDS: LEVOTHYROXINE 75MCG TABLET (0.075MG) PO SCH (05:47)
[2021-02-25] MEDS: SODIUM CHLORIDE 0.9% INJ 10 ML SYR IV PRN ×2 (05:47→22:51)
[2021-02-25] MEDS: SODIUM CHLORIDE 0.9% INJ 10 ML SYR IV SCH ×2 (06:27→16:54)
[2021-02-25] MEDS: MIDODRINE 5 MG TAB PO SCH ×3 (08:00→16:34)
[2021-02-25] MEDS: IPRATROPIUM HFA INHALER 12.9 GRAMS (ATROVENT HFA) INH SCH ×3 (08:18→21:21)
[2021-02-25] MEDS: GABAPENTIN 300 MG CAP PO SCH ×2 (08:48→21:46)
[2021-02-25] MEDS: TAMSULOSIN 0.4 MG CAP PO SCH (08:48)
[2021-02-25] MEDS: DOCUSATE SODIUM 100MG CAPSULE PO SCH ×2 (08:48→21:46)
[2021-02-25] MEDS: METOPROLOL TART 50 MG TAB PO SCH ×2 (08:48→21:46)
[2021-02-25] MEDS: predniSONE 10 MG TAB PO SCH (08:49)
[2021-02-25] MEDS: FINASTERIDE 5 MG TAB PO SCH (08:49)
[2021-02-25] MEDS: FUROSEMIDE 20 MG TAB PO SCH (08:49)
[2021-02-25] MEDS: OYSTER SHELL CALCIUM 500 MG TAB PO SCH (08:49)
[2021-02-25] MEDS: DIGOXIN 0.125 MG TAB PO SCH (08:49)
[2021-02-25] MEDS: VITAMIN D 1,000 INTERNATIONAL UNITS TABLET PO SCH (08:49)
[2021-02-25] MEDS: LACTOBACILLUS ACIDOPHILUS CAP (BACID) PO SCH ×3 (08:49→21:45)
[2021-02-25] MEDS: FLUCONAZOLE 100 MG TAB PO SCH (08:49)
[2021-02-25] MEDS: MULTIVITAMINS/MINERALS THERAP 1 TAB PO SCH (08:49)
[2021-02-25] MEDS: REMEDY PHYTOPLEX Z-GUARD PASTE 113GM TUBE (FROM STOREROOM PRODUCT) TOP SCH ×3 (08:52→21:47)
[2021-02-25] MEDS: APIXABAN 5 MG TAB (ELIQUIS) PO SCH ×2 (08:52→21:46)
[2021-02-25] MEDS: FLUTICASONE PROP 0.05% NASAL SPRAY 16 GM (FLONASE) NARES SCH ×2 (08:52→21:47)
[2021-02-25] MEDS: VANICREAM MOISTURIZING SKIN CREAM 113GM TUBE TOP SCH ×2 (08:53→21:47)
--- NOTE | 2021-02-25 10:49 | IPNPDOC ---
Text Note Date of Service The patient was seen on 02/25/21. NOTE Subjective: -No acute complaints at present. Reports that earlier he had some band-like upper abdominal pain that was transient and has resolved at this time. -Seen while doing the bike in the gym, doing well Objective: VITAL SIGNS: Please see below. Constitutional: Awake and alert, in no apparent distress ENT: Sclera are clear. Mucosa is moist. Respiratory: Lungs CTA bilaterally. No respiratory distress. Cardiovascular: RRR S1 and S2 are normal Gastrointestinal: Normoactive sounds throughout, obese, soft, non distended, non tender. Biliary drain in place, no surrounding erythema or leakage. Musculoskeletal: Dependent lower extremity edema. Neurologic: No focal neurological deficit. 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 Patient was transferred back to [facility] ARU for continued medical management as well as pt/ot for deconditioning secondary to prolonged critical illness. #Deconditioning/critical illness : Acute rehab per PM&R #Liver abscesss/p drain insertion at [facility] - Patient grew pseudomonas on blood cultures as well as grew jennifer on abscess cultures at [facility] - continued diflucan and meropenem per [facility] recommendations and on arrival to ARU, ID was consulted and recommending continuation of both emery and fluconazole till 03/11. If he is discharged home prior to 03/11, Dr. Can recommended switching from IV meropenem to PO levaquin since his pseudomonas was quinolone sensitive. - continue pain/nausea regimen - Surgery was consulted for drain management - Very slowly rising LFTs, if persisting will have to get liver US and hopefully would not require transfer back to [facility] for ERCP, for now monitor LFTs daily. #chronic CHF with systolic and diastolic dysfunction, s/p AICD - Patient states that many of his cardiac medications were held at [facility] due to his illness - entresto, on hold due to hypotension - follows with dr mejía, patient states his BB has been off and on frequently over the past year. Currently resumed for HR 130. - Follow up with Dr Mejía after discharge from [facility]. #CAD - stable, history of MD/CABG #HLD - continue rosuvastatin, fish oil #chronic A-fib - Continue eliquis, digoxin #HTN - Holding entresto, continuing lasix for volume management. Also currently on midodrine? for BP support. #LENA - continue cpap #GERD - continue Protonix #BPH - continue Flomax, finasteride #Hypothyroidism - continue levothyroxine #COPD # seasonal allergies - continue loratadine, Flonase #morbid obesity - complicates care #DVT prophylaxis - pt on eliquis VS,Fishbone, I+O VS, Fishbone, I+O Vital Signs Date Time Temp Pulse Resp B/P (MAP) Pulse Ox O2 Delivery O2 Flow Rate FiO2 02/25/21 08:49 71 02/25/21 08:48 161/84 02/25/21 05:38 96.6 19 94 NIPPV (BIPAP/CPAP) 02/24/21 20:00 3.0 I&O- Last 24 Hours up to 6 AM 02/25/21 06:00 Intake Total 420 ml Balance 420 ml CELIA HEIN MD February 25, 2021 09:47
[2021-02-25 11:23] LABS: HEMATOCRIT 31.5 % (42.0-52.0); HEMOGLOBIN 9.5 g/dl (13.5-17.5); MEAN CORPUSCULAR HGB CONC 30.2 g/dl (32.0-36.5); PLATELET COUNT, AUTOMATED 190 10^3/uL (150-450); RED BLOOD COUNT 3.28 10^6/uL (4.30-6.10); WHITE BLOOD COUNT 10.1 10^3/uL (4.0-10.0)
[2021-02-25 11:45] LABS: ALBUMIN 2.7 GM/DL (3.2-5.2); ALT/SGPT 125 U/L (12-78); BILIRUBIN,TOTAL 2.8 MG/DL (0.2-1.0); BLOOD UREA NITROGEN 20 MG/DL (7-18); CALCIUM LEVEL 9.1 MG/DL (8.8-10.2); CARBON DIOXIDE LEVEL 36 MEQ/L (21-32); CHLORIDE LEVEL 100 MEQ/L (98-107); CREATININE FOR GFR 0.97 MG/DL (0.70-1.30); GLOMERULAR FILTRATION RATE > 60.0 (>49); GLUCOSE, FASTING 107 MG/DL (70-100); POTASSIUM SERUM 3.9 MEQ/L (3.5-5.1); SODIUM LEVEL 141 MEQ/L (136-145); TOTAL PROTEIN 6.4 GM/DL (6.4-8.2)
[2021-02-25 12:30] VITALS: BP 128/65
[2021-02-25 20:00] VITALS: BP 111/56
[2021-02-25] MEDS: PANTOPRAZOLE 40MG TAB (PROTONIX) PO SCH (21:45)
[2021-02-25] MEDS: SENNA 8.6 MG TAB (SENOKOT) PO SCH (21:45)
[2021-02-25] MEDS: ASPIRIN 81MG ENTERIC TABLET PO SCH (21:45)
[2021-02-25] MEDS: ROSUVASTATIN 10 MG TAB (CRESTOR) PO SCH (21:46)
[2021-02-25] MEDS: LORATADINE 10 MG TAB PO SCH (21:46)
[2021-02-26 06:00] VITALS: BP 141/63
[2021-02-26] MEDS: SODIUM CHLORIDE 0.9% INJ 10 ML SYR IV SCH (06:04)
[2021-02-26] MEDS: LEVOTHYROXINE 75MCG TABLET (0.075MG) PO SCH (06:05)
[2021-02-26] MEDS: MEROPENEM INJ 1 GM in IV 1 EA IV SCH (06:05)
[2021-02-26 06:29] LABS: HEMATOCRIT 31.7 % (42.0-52.0); HEMOGLOBIN 9.6 g/dl (13.5-17.5); MEAN CORPUSCULAR HEMOGLOBIN 29.4 pg (27.0-33.0); MEAN CORPUSCULAR HGB CONC 30.3 g/dl (32.0-36.5); MEAN CORPUSCULAR VOLUME 96.9 fl (80.0-96.0); PLATELET COUNT, AUTOMATED 170 10^3/uL (150-450); RED BLOOD COUNT 3.27 10^6/uL (4.30-6.10); WHITE BLOOD COUNT 8.8 10^3/uL (4.0-10.0)
[2021-02-26 06:50] LABS: ALBUMIN 2.6 GM/DL (3.2-5.2); ALT/SGPT 115 U/L (12-78); BILIRUBIN,TOTAL 2.4 MG/DL (0.2-1.0); BLOOD UREA NITROGEN 20 MG/DL (7-18); CALCIUM LEVEL 8.7 MG/DL (8.8-10.2); CARBON DIOXIDE LEVEL 36 MEQ/L (21-32); CHLORIDE LEVEL 99 MEQ/L (98-107); CREATININE FOR GFR 0.96 MG/DL (0.70-1.30); GLOMERULAR FILTRATION RATE > 60.0 (>49); GLUCOSE, FASTING 91 MG/DL (70-100); POTASSIUM SERUM 3.9 MEQ/L (3.5-5.1); SODIUM LEVEL 141 MEQ/L (136-145); TOTAL PROTEIN 6.3 GM/DL (6.4-8.2)
[2021-02-26] MEDS: IPRATROPIUM HFA INHALER 12.9 GRAMS (ATROVENT HFA) INH SCH (07:40)
[2021-02-26] MEDS: MIDODRINE 5 MG TAB PO SCH ×2 (08:00→12:31)
[2021-02-26] MEDS: DOCUSATE SODIUM 100MG CAPSULE PO SCH (08:34)
[2021-02-26] MEDS: MULTIVITAMINS/MINERALS THERAP 1 TAB PO SCH (08:35)
[2021-02-26] MEDS: predniSONE 10 MG TAB PO SCH (08:35)
[2021-02-26] MEDS: GABAPENTIN 300 MG CAP PO SCH (08:35)
[2021-02-26] MEDS: APIXABAN 5 MG TAB (ELIQUIS) PO SCH (08:35)
[2021-02-26] MEDS: OYSTER SHELL CALCIUM 500 MG TAB PO SCH (08:35)
[2021-02-26] MEDS: LACTOBACILLUS ACIDOPHILUS CAP (BACID) PO SCH (08:35)
[2021-02-26] MEDS: TAMSULOSIN 0.4 MG CAP PO SCH (08:36)
[2021-02-26] MEDS: VITAMIN D 1,000 INTERNATIONAL UNITS TABLET PO SCH (08:36)
[2021-02-26] MEDS: DIGOXIN 0.125 MG TAB PO SCH (08:39)
[2021-02-26] MEDS: FLUCONAZOLE 100 MG TAB PO SCH (08:39)
[2021-02-26] MEDS: VANICREAM MOISTURIZING SKIN CREAM 113GM TUBE TOP SCH (08:40)
[2021-02-26] MEDS: FINASTERIDE 5 MG TAB PO SCH (08:40)
[2021-02-26] MEDS: FLUTICASONE PROP 0.05% NASAL SPRAY 16 GM (FLONASE) NARES SCH (08:41)
[2021-02-26] MEDS: REMEDY PHYTOPLEX Z-GUARD PASTE 113GM TUBE (FROM STOREROOM PRODUCT) TOP SCH (08:41)
[2021-02-26 08:44] VITALS: BP 160/79
[2021-02-26] MEDS: METOPROLOL TART 50 MG TAB PO SCH (08:44)
[2021-02-26] MEDS: FUROSEMIDE 20 MG TAB PO SCH (08:45)
[2021-02-26] MEDS ORDERED: CRES20TA2 PO (09:55)
[2021-02-26] MEDS ORDERED: GABA-282 PO (09:55)
[2021-02-26] MEDS ORDERED: LEVO25TA34 PO (09:55)
[2021-02-26] MEDS ORDERED: PRED5TA PO (09:55)
[2021-02-26] MEDS ORDERED: LEVO750T13 PO (09:55)
[2021-02-26] MEDS ORDERED: DIGO0.123 PO (09:55)
[2021-02-26] MEDS ORDERED: ASPI-569 PO (09:55)
[2021-02-26] MEDS ORDERED: FINA5TAB2 PO (09:55)
[2021-02-26] MEDS ORDERED: PANT40TA29 PO (09:55)
[2021-02-26] MEDS ORDERED: FLON1SPR NARES (09:55)
[2021-02-26] MEDS ORDERED: ELIQ5TAB PO (09:55)
[2021-02-26] MEDS ORDERED: FLOM0.4C39 PO (09:55)
[2021-02-26] MEDS ORDERED: FURO40TA2 PO (09:55)
[2021-02-26] MEDS ORDERED: MIDO5TA PO (09:55)
[2021-02-26] MEDS ORDERED: FLUC100T PO (09:55)
[2021-02-26] MEDS ORDERED: NITR4TASL SL (09:55)
[2021-02-26] MEDS ORDERED: LORA-243 PO (09:55)
[2021-02-26] MEDS ORDERED: LOPR1TAB6 PO (09:55)
[2021-02-26] MEDS ORDERED: LEVO200T4 PO (09:55)
[2021-02-26] MEDS ORDERED: PRED10TA2 PO (11:09)
--- NOTE | 2021-02-27 13:00 | PMRDS ---
NAME: JANES CURIEL 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 HISTORY OF PRESENT ILLNESS: 65-year-old man with past medical history of cardiac arrest, CAD, status post stent and CABG and ICD with pacemaker, Afib on Eliquis, LENA on CPAP, hypertension, obesity, status post gastric bypass, hypothyroidism, COPD not on home O2, CHF, PVD, hyperlipidemia, admitted to [facility] on 02/09/2021 from [facility] following cholecystostomy tube placement with IR drainage performed on 01/30/2021. He developed septic shock in the setting of pseudomonas bacteremia. Liver abscess was drained growing jennifer. He was started on Meropenem and Fluconazole, stabilized and transferred back to [facility] where he was noted to have considerable weakness due to prolonged ICU stay with steroid use, considered to have critical illness myopathy. He was volume overloaded and started on diuretics. ID was consulted in-house in addition to general surgery who agreed to follow patient. He was found to have mobility and ADL impairments and deemed medically appropriate for discharge to ARU on 02/12/2021. PAST MEDICAL HISTORY: As per HPI. HOSPITAL COURSE: The patient was admitted and enrolled in comprehensive PT/OT program. He received 24 hour nursing supervision and weekly team meetings were held to discuss his progress. The patient's blood pressures were supported with Midodrine and Hilario wrapping. His hypotension did improve in addition to his overall exercise tolerance. The patient was followed by general surgery while on the unit with recommendation to clamp his cholecystostomy tube. The patient's LFTs were monitored. They did gradually increase during his hospital stay with repeat abdomen and pelvis on 02/13/2021 showing improvement in the size of his liver abscess. His LFTs were monitored by general surgery and recommendation was for patient to eventually be scheduled for ERCP to be performed at [facility] under the direction of patient's prior surgeon who performed his bypass. On day of discharge the case was discussed again with general surgery, Dr. Cabrera, who agreed to see the patient in his office one week out from discharge and to determine whether or not his tube should remain clamped or to possibly unclamp it for further drainage. The patient upon discharge did not have any abdominal symptoms, no fevers or chills and was discharged on oral Levaquin and Fluconazole. He made steady gains in therapy, was able to have room privileges and was deemed medically and functionally stable to return home. DISCHARGE MEDICATIONS: As per instructions. FUNCTIONAL HISTORY ON DISCHARGE: The patient was modified independent for ambulation, bed mobility, and toileting. Thank you for this referral.
== END 2021-02-26 13:15 | disposition home health service (06) | DRG 91 ==
LOC: M PM&R 18:50
PROVIDERS: ADMIT Physical Medicine & Rehabilitation; ATTEND Physical Medicine & Rehabilitation
DX: G72.81 Critical illness myopathy (principal); K75.0 Abscess of liver; I50.42 Chronic combined systolic (congestive) and diastolic (congestive) heart failure; Z68.43 Body mass index [BMI] 50.0-59.9, adult; K83.09 Other cholangitis; I25.10 Atherosclerotic heart disease of native coronary artery without angina pectoris; I48.91 Unspecified atrial fibrillation; G47.33 Obstructive sleep apnea (adult) (pediatric); E66.01 Morbid (severe) obesity due to excess calories; I11.0 Hypertensive heart disease with heart failure; E03.9 Hypothyroidism, unspecified; J44.9 Chronic obstructive pulmonary disease, unspecified; K21.9 Gastro-esophageal reflux disease without esophagitis; I73.9 Peripheral vascular disease, unspecified; N40.0 Benign prostatic hyperplasia without lower urinary tract symptoms; J30.9 Allergic rhinitis, unspecified; R53.1 Weakness; B96.5 Pseudomonas (aeruginosa) (mallei) (pseudomallei) as the cause of diseases classified elsewhere; Z74.09 Other reduced mobility; Z74.1 Need for assistance with personal care; Z79.82 Long term (current) use of aspirin; Z79.52 Long term (current) use of systemic steroids; Z79.899 Other long term (current) drug therapy; Z95.0 Presence of cardiac pacemaker; Z98.41 Cataract extraction status, right eye; Z98.42 Cataract extraction status, left eye; Z79.01 Long term (current) use of anticoagulants; Z95.5 Presence of coronary angioplasty implant and graft; Z87.891 Personal history of nicotine dependence; Z90.49 Acquired absence of other specified parts of digestive tract; Z96.89 Presence of other specified functional implants

== ENCOUNTER → 2021-02-28 | Outpatient (REF) | payer MEDICARE, OTHER ==
[~2021-02-28] MED LIST changes: +FLUC100T PO; +LEVO750T13 PO; +MIDO5TA PO; +PRED5TA PO
[2021-02-28 15:14] LABS: HEMATOCRIT 33.3 % (42.0-52.0); HEMOGLOBIN 10.1 g/dl (13.5-17.5); MEAN CORPUSCULAR HEMOGLOBIN 29.2 pg (27.0-33.0); MEAN CORPUSCULAR HGB CONC 30.3 g/dl (32.0-36.5); MEAN CORPUSCULAR VOLUME 96.2 fl (80.0-96.0); PLATELET COUNT, AUTOMATED 213 10^3/uL (150-450); RED BLOOD COUNT 3.46 10^6/uL (4.30-6.10); WHITE BLOOD COUNT 10.4 10^3/uL (4.0-10.0)
[2021-02-28 15:47] LABS: ALBUMIN 2.8 GM/DL (3.2-5.2); ALT/SGPT 111 U/L (12-78); BILIRUBIN,TOTAL 2.8 MG/DL (0.2-1.0); BLOOD UREA NITROGEN 23 MG/DL (7-18); CALCIUM LEVEL 9.1 MG/DL (8.8-10.2); CARBON DIOXIDE LEVEL 33 MEQ/L (21-32); CHLORIDE LEVEL 101 MEQ/L (98-107); GLOMERULAR FILTRATION RATE > 60.0 (>49); GLUCOSE, FASTING 109 MG/DL (70-100); POTASSIUM SERUM 4.2 MEQ/L (3.5-5.1); SODIUM LEVEL 139 MEQ/L (136-145); TOTAL PROTEIN 6.7 GM/DL (6.4-8.2)
== END ==
LOC: M SHH 14:48
PROVIDERS: ATTEND Physical Medicine & Rehabilitation
DX: Z00.00 Encounter for general adult medical examination without abnormal findings (principal)

== ENCOUNTER → 2021-03-04 | Outpatient (REF) | payer MEDICARE, OTHER ==
[2021-03-04 18:31] LABS: ALBUMIN 2.8 GM/DL (3.2-5.2); BILIRUBIN,TOTAL 2.5 MG/DL (0.2-1.0); TOTAL PROTEIN 6.8 GM/DL (6.4-8.2)
== END ==
LOC: M LAB REF 15:33
PROVIDERS: ATTEND Surgery
DX: K83.9 Disease of biliary tract, unspecified (principal)

== ENCOUNTER → 2021-03-08 | Outpatient (REF) | payer MEDICARE, OTHER ==
[2021-03-08 16:11] LABS: BASO % 0.4 % (0.0-1.0); EOS # 0.1 10^3/uL (0.0-0.5); HEMATOCRIT 34.7 % (42.0-52.0); HEMOGLOBIN 10.4 g/dl (13.5-17.5); LYMPH # 1.5 10^3/uL (1.5-5.0); LYMPH % 18.2 % (24.0-44.0); MEAN CORPUSCULAR VOLUME 96.7 fl (80.0-96.0); MONO # 0.6 10^3/uL (0.0-0.8); MONO % 7.7 % (2.0-8.0); NEUTROPHILS % 72.1 % (36.0-66.0); PLATELET COUNT, AUTOMATED 197 10^3/uL (150-450); RED BLOOD COUNT 3.59 10^6/uL (4.30-6.10); WHITE BLOOD COUNT 8.3 10^3/uL (4.0-10.0)
[2021-03-08 16:47] LABS: ALBUMIN 2.9 GM/DL (3.2-5.2); ALT/SGPT 106 U/L (12-78); BILIRUBIN,TOTAL 1.9 MG/DL (0.2-1.0); BLOOD UREA NITROGEN 18 MG/DL (7-18); C REACTIVE PROTEIN QUANTITATIV 2.44 MG/DL (0.00-0.30); CALCIUM LEVEL 8.6 MG/DL (8.8-10.2); CARBON DIOXIDE LEVEL 34 MEQ/L (21-32); CHLORIDE LEVEL 104 MEQ/L (98-107); CREATININE FOR GFR 1.11 MG/DL (0.70-1.30); GLOMERULAR FILTRATION RATE > 60.0 (>49); GLUCOSE, FASTING 186 MG/DL (70-100); POTASSIUM SERUM 3.6 MEQ/L (3.5-5.1); SODIUM LEVEL 143 MEQ/L (136-145); TOTAL PROTEIN 6.4 GM/DL (6.4-8.2)
[2021-03-08 17:16] LABS: ERYTHROCYTE SEDIMENTATION RATE 52 mm/hr (0-20)
== END ==
LOC: M SHH 15:45
PROVIDERS: ATTEND Internal Medicine Infectious Disease
DX: K75.0 Abscess of liver (principal)

== ENCOUNTER → 2021-03-14 | Outpatient (REF) | payer MEDICARE, OTHER ==
[2021-03-14 13:11] LABS: HEMATOCRIT 37.9 % (42.0-52.0); HEMOGLOBIN 11.4 g/dl (13.5-17.5); MEAN CORPUSCULAR HEMOGLOBIN 28.7 pg (27.0-33.0); MEAN CORPUSCULAR HGB CONC 30.1 g/dl (32.0-36.5); MEAN CORPUSCULAR VOLUME 95.5 fl (80.0-96.0); PLATELET COUNT, AUTOMATED 238 10^3/uL (150-450); RED BLOOD COUNT 3.97 10^6/uL (4.30-6.10); WHITE BLOOD COUNT 10.5 10^3/uL (4.0-10.0)
[2021-03-14 13:13] LABS: ALBUMIN 3.2 GM/DL (3.2-5.2); ALT/SGPT 80 U/L (12-78); BILIRUBIN,TOTAL 1.6 MG/DL (0.2-1.0); BLOOD UREA NITROGEN 23 MG/DL (7-18); CALCIUM LEVEL 9.4 MG/DL (8.8-10.2); CARBON DIOXIDE LEVEL 34 MEQ/L (21-32); CHLORIDE LEVEL 103 MEQ/L (98-107); CHOLESTEROL LEVEL 134 MG/DL (<200); CREATININE FOR GFR 1.06 MG/DL (0.70-1.30); GLOMERULAR FILTRATION RATE > 60.0 (>49); GLUCOSE, FASTING 141 MG/DL (70-100); HDL CHOLESTEROL 50 MG/DL (>40); LDL CHOLESTEROL 57 MG/DL (<100); NON-HDL-C 84 MG/DL; SODIUM LEVEL 142 MEQ/L (136-145); TOTAL PROTEIN 6.7 GM/DL (6.4-8.2); TRIGLYCERIDES LEVEL 137 MG/DL (<150)
== END ==
LOC: M SHH 11:35
PROVIDERS: ATTEND Internal Medicine
DX: E78.5 Hyperlipidemia, unspecified (principal); E03.9 Hypothyroidism, unspecified; I50.9 Heart failure, unspecified; K75.0 Abscess of liver; Z79.899 Other long term (current) drug therapy

== ENCOUNTER → 2021-03-21 | Outpatient (CLI) | payer MEDICARE, BC, OTHER ==
--- NOTE | 2021-03-21 11:28 | REP ---
INDICATION: LIVER ABSCESS. COMPARISON: Multiple latest 02/10/2021 FINDINGS: The areas of abnormality seen on the prior exam particularly a 3.3 x 3.2 x 3.7 cm sized focal mixed echo area and a 6.4 x 3.9 x 5.4 cm sized lobulated hypoechoic area a not appreciated today. There is a diffuse coarsened increased echo pattern throughout the hepatic parenchyma. The common bile duct measures 5 mm. The pancreatic region could not be evaluated due to the patient's intestinal gas pattern. There is no significant change in appearance of the imaged portion of the right kidney. With the patient put in the decubitus position evaluation of the right lobe of the liver could not be obtained due to a curvilinear echogenicity consistent with a previously placed surgical drainage tube. This was better imaged on prior CT of 02/13/2021. There is no evidence of free fluid. IMPRESSION: There is evidence of improvement in the hepatic abnormalities seen previously as described above. Other findings and limitations as described above. Accredited by the [employer] in General Ultrasound. <Electronically signed by Shorty Campbell > 03/21/21 [id number]
== END ==
LOC: M RAD 09:32
PROVIDERS: ATTEND Internal Medicine Infectious Disease
DX: K75.0 Abscess of liver (principal)

== ENCOUNTER → 2021-03-21 | Outpatient (REF) | payer MEDICARE, BC, OTHER ==
[2021-03-21 14:11] LABS: BASO # 0.1 10^3/uL (0.0-0.2); BASO % 0.5 % (0.0-1.0); EOS # 0.4 10^3/uL (0.0-0.5); EOS % 2.5 % (0.0-3.0); HEMATOCRIT 39.3 % (42.0-52.0); LYMPH # 2.3 10^3/uL (1.5-5.0); LYMPH % 15.8 % (24.0-44.0); MEAN CORPUSCULAR HEMOGLOBIN 28.9 pg (27.0-33.0); MEAN CORPUSCULAR HGB CONC 30.5 g/dl (32.0-36.5); MEAN CORPUSCULAR VOLUME 94.7 fl (80.0-96.0); MONO # 1.2 10^3/uL (0.0-0.8); NEUTROPHILS # 10.8 10^3/uL (1.5-8.5); NEUTROPHILS % 72.4 % (36.0-66.0); PLATELET COUNT, AUTOMATED 242 10^3/uL (150-450); RED BLOOD COUNT 4.15 10^6/uL (4.30-6.10); WHITE BLOOD COUNT 14.9 10^3/uL (4.0-10.0)
[2021-03-21 14:47] LABS: ALBUMIN 3.2 GM/DL (3.2-5.2); ALT/SGPT 82 U/L (12-78); BILIRUBIN,TOTAL 1.6 MG/DL (0.2-1.0); BLOOD UREA NITROGEN 22 MG/DL (7-18); C REACTIVE PROTEIN QUANTITATIV 2.78 MG/DL (0.00-0.30); CALCIUM LEVEL 9.2 MG/DL (8.8-10.2); CARBON DIOXIDE LEVEL 29 MEQ/L (21-32); CHLORIDE LEVEL 105 MEQ/L (98-107); CREATININE FOR GFR 0.94 MG/DL (0.70-1.30); GLOMERULAR FILTRATION RATE > 60.0 (>49); GLUCOSE, FASTING 164 MG/DL (70-100); POTASSIUM SERUM 3.4 MEQ/L (3.5-5.1); SODIUM LEVEL 141 MEQ/L (136-145); TOTAL PROTEIN 6.7 GM/DL (6.4-8.2)
[2021-03-21 19:40] LABS: ERYTHROCYTE SEDIMENTATION RATE 52 mm/hr (0-20)
== END ==
LOC: M SHH 13:16
PROVIDERS: ATTEND Internal Medicine Infectious Disease
DX: K75.0 Abscess of liver (principal)

== ENCOUNTER → 2021-03-28 | Outpatient (REF) | payer MEDICARE, BC, OTHER ==
[2021-03-28 12:18] LABS: BASO # 0.1 10^3/uL (0.0-0.2); BASO % 0.5 % (0.0-1.0); EOS # 0.5 10^3/uL (0.0-0.5); EOS % 3.7 % (0.0-3.0); HEMATOCRIT 37.7 % (42.0-52.0); HEMOGLOBIN 11.5 g/dl (13.5-17.5); LYMPH # 1.9 10^3/uL (1.5-5.0); LYMPH % 15.7 % (24.0-44.0); MEAN CORPUSCULAR HEMOGLOBIN 28.4 pg (27.0-33.0); MEAN CORPUSCULAR HGB CONC 30.5 g/dl (32.0-36.5); MEAN CORPUSCULAR VOLUME 93.1 fl (80.0-96.0); MONO # 1.2 10^3/uL (0.0-0.8); MONO % 9.8 % (2.0-8.0); NEUTROPHILS # 8.4 10^3/uL (1.5-8.5); PLATELET COUNT, AUTOMATED 239 10^3/uL (150-450); RED BLOOD COUNT 4.05 10^6/uL (4.30-6.10); WHITE BLOOD COUNT 12.2 10^3/uL (4.0-10.0)
[2021-03-28 12:47] LABS: ALBUMIN 3.1 GM/DL (3.2-5.2); ALT/SGPT 71 U/L (12-78); BILIRUBIN,TOTAL 1.3 MG/DL (0.2-1.0); BLOOD UREA NITROGEN 15 MG/DL (7-18); CALCIUM LEVEL 8.3 MG/DL (8.8-10.2); CARBON DIOXIDE LEVEL 30 MEQ/L (21-32); CHLORIDE LEVEL 103 MEQ/L (98-107); CREATININE FOR GFR 0.95 MG/DL (0.70-1.30); GLOMERULAR FILTRATION RATE > 60.0 (>49); GLUCOSE, FASTING 143 MG/DL (70-100); POTASSIUM SERUM 3.3 MEQ/L (3.5-5.1); SODIUM LEVEL 140 MEQ/L (136-145); TOTAL PROTEIN 6.6 GM/DL (6.4-8.2)
[2021-03-28 12:48] LABS: C REACTIVE PROTEIN QUANTITATIV 3.41 MG/DL (0.00-0.30)
[2021-03-28 12:58] LABS: ERYTHROCYTE SEDIMENTATION RATE 53 mm/hr (0-20)
== END ==
LOC: M SHH 11:41
PROVIDERS: ATTEND Internal Medicine Infectious Disease
DX: K75.0 Abscess of liver (principal)

== ENCOUNTER → 2021-04-04 | Outpatient (REF) | payer MEDICARE, BC, OTHER ==
[2021-04-04 13:52] LABS: BASO # 0.1 10^3/uL (0.0-0.2); BASO % 0.4 % (0.0-1.0); EOS # 0.4 10^3/uL (0.0-0.5); EOS % 3.1 % (0.0-3.0); HEMATOCRIT 39.8 % (42.0-52.0); HEMOGLOBIN 12.3 g/dl (13.5-17.5); LYMPH # 2.1 10^3/uL (1.5-5.0); LYMPH % 14.7 % (24.0-44.0); MEAN CORPUSCULAR HEMOGLOBIN 28.8 pg (27.0-33.0); MEAN CORPUSCULAR HGB CONC 30.9 g/dl (32.0-36.5); MEAN CORPUSCULAR VOLUME 93.2 fl (80.0-96.0); MONO # 1.2 10^3/uL (0.0-0.8); MONO % 8.3 % (2.0-8.0); NEUTROPHILS # 10.3 10^3/uL (1.5-8.5); NEUTROPHILS % 72.6 % (36.0-66.0); PLATELET COUNT, AUTOMATED 224 10^3/uL (150-450); RED BLOOD COUNT 4.27 10^6/uL (4.30-6.10); WHITE BLOOD COUNT 14.2 10^3/uL (4.0-10.0)
[2021-04-04 14:17] LABS: ERYTHROCYTE SEDIMENTATION RATE 52 mm/hr (0-20)
[2021-04-04 14:25] LABS: ALBUMIN 3.1 GM/DL (3.2-5.2); ALT/SGPT 57 U/L (12-78); BILIRUBIN,TOTAL 1.2 MG/DL (0.2-1.0); BLOOD UREA NITROGEN 17 MG/DL (7-18); C REACTIVE PROTEIN QUANTITATIV 3.52 MG/DL (0.00-0.30); CARBON DIOXIDE LEVEL 33 MEQ/L (21-32); CHLORIDE LEVEL 100 MEQ/L (98-107); CREATININE FOR GFR 0.92 MG/DL (0.70-1.30); GLOMERULAR FILTRATION RATE > 60.0 (>49); GLUCOSE, FASTING 141 MG/DL (70-100); POTASSIUM SERUM 3.5 MEQ/L (3.5-5.1); SODIUM LEVEL 142 MEQ/L (136-145); TOTAL PROTEIN 6.8 GM/DL (6.4-8.2)
== END ==
LOC: M SHH 13:23
PROVIDERS: ATTEND Internal Medicine Infectious Disease
DX: K75.0 Abscess of liver (principal)

== ENCOUNTER → 2021-04-11 | Outpatient (REF) | payer MEDICARE, BC, OTHER ==
[2021-04-11 11:58] LABS: BASO # 0.1 10^3/uL (0.0-0.2); BASO % 0.5 % (0.0-1.0); EOS # 0.5 10^3/uL (0.0-0.5); EOS % 3.9 % (0.0-3.0); HEMATOCRIT 39.8 % (42.0-52.0); HEMOGLOBIN 12.4 g/dl (13.5-17.5); LYMPH # 2.6 10^3/uL (1.5-5.0); LYMPH % 19.9 % (24.0-44.0); MEAN CORPUSCULAR HEMOGLOBIN 28.8 pg (27.0-33.0); MEAN CORPUSCULAR HGB CONC 31.2 g/dl (32.0-36.5); MEAN CORPUSCULAR VOLUME 92.3 fl (80.0-96.0); MONO # 1.1 10^3/uL (0.0-0.8); MONO % 8.4 % (2.0-8.0); NEUTROPHILS # 8.6 10^3/uL (1.5-8.5); NEUTROPHILS % 66.4 % (36.0-66.0); PLATELET COUNT, AUTOMATED 234 10^3/uL (150-450); RED BLOOD COUNT 4.31 10^6/uL (4.30-6.10); WHITE BLOOD COUNT 12.9 10^3/uL (4.0-10.0)
[2021-04-11 12:32] LABS: ERYTHROCYTE SEDIMENTATION RATE 49 mm/hr (0-20)
[2021-04-11 12:58] LABS: ALBUMIN 3.1 GM/DL (3.2-5.2); ALT/SGPT 54 U/L (12-78); BILIRUBIN,TOTAL 1.1 MG/DL (0.2-1.0); BLOOD UREA NITROGEN 19 MG/DL (7-18); C REACTIVE PROTEIN QUANTITATIV 3.12 MG/DL (0.00-0.30); CALCIUM LEVEL 8.6 MG/DL (8.8-10.2); CARBON DIOXIDE LEVEL 32 MEQ/L (21-32); CHLORIDE LEVEL 100 MEQ/L (98-107); CREATININE FOR GFR 1.03 MG/DL (0.70-1.30); GLOMERULAR FILTRATION RATE > 60.0 (>49); GLUCOSE, FASTING 136 MG/DL (70-100); POTASSIUM SERUM 3.2 MEQ/L (3.5-5.1); SODIUM LEVEL 139 MEQ/L (136-145); TOTAL PROTEIN 6.6 GM/DL (6.4-8.2)
== END ==
LOC: M LAB REF 11:28
PROVIDERS: ATTEND Internal Medicine Infectious Disease
DX: K75.0 Abscess of liver (principal)

== ENCOUNTER → 2021-04-18 | Outpatient (REF) | payer MEDICARE, BC, OTHER ==
[2021-04-18 12:27] LABS: BASO # 0.1 10^3/uL (0.0-0.2); BASO % 0.5 % (0.0-1.0); EOS # 0.6 10^3/uL (0.0-0.5); EOS % 4.4 % (0.0-3.0); HEMATOCRIT 38.9 % (42.0-52.0); HEMOGLOBIN 12.1 g/dl (13.5-17.5); LYMPH # 2.4 10^3/uL (1.5-5.0); LYMPH % 16.7 % (24.0-44.0); MEAN CORPUSCULAR HEMOGLOBIN 28.3 pg (27.0-33.0); MEAN CORPUSCULAR HGB CONC 31.1 g/dl (32.0-36.5); MEAN CORPUSCULAR VOLUME 91.1 fl (80.0-96.0); MONO # 1.2 10^3/uL (0.0-0.8); MONO % 8.5 % (2.0-8.0); NEUTROPHILS # 9.8 10^3/uL (1.5-8.5); NEUTROPHILS % 69.1 % (36.0-66.0); PLATELET COUNT, AUTOMATED 265 10^3/uL (150-450); RED BLOOD COUNT 4.27 10^6/uL (4.30-6.10); WHITE BLOOD COUNT 14.2 10^3/uL (4.0-10.0)
[2021-04-18 13:05] LABS: ALT/SGPT 58 U/L (12-78); BILIRUBIN,TOTAL 0.9 MG/DL (0.2-1.0); BLOOD UREA NITROGEN 17 MG/DL (7-18); C REACTIVE PROTEIN QUANTITATIV 5.62 MG/DL (0.00-0.30); CALCIUM LEVEL 8.6 MG/DL (8.8-10.2); CARBON DIOXIDE LEVEL 29 MEQ/L (21-32); CHLORIDE LEVEL 102 MEQ/L (98-107); CREATININE FOR GFR 0.94 MG/DL (0.70-1.30); GLOMERULAR FILTRATION RATE > 60.0 (>49); GLUCOSE, FASTING 169 MG/DL (70-100); POTASSIUM SERUM 3.3 MEQ/L (3.5-5.1); SODIUM LEVEL 139 MEQ/L (136-145); TOTAL PROTEIN 6.6 GM/DL (6.4-8.2)
[2021-04-18 13:19] LABS: ERYTHROCYTE SEDIMENTATION RATE 58 mm/hr (0-20)
== END ==
LOC: M SHH 11:54
PROVIDERS: ATTEND Internal Medicine Infectious Disease
DX: K75.0 Abscess of liver (principal)

== ENCOUNTER → 2021-04-18 | Outpatient (REF) | payer MEDICARE, BC, OTHER | LOC: M SHH 11:56 | PROVIDERS: ATTEND Physician Assistant | DX: I50.42 Chronic combined systolic (congestive) and diastolic (congestive) heart failure (principal) ==

== ENCOUNTER → 2021-04-25 | Outpatient (REF) | payer MEDICARE, BC, OTHER ==
[2021-04-25 13:34] LABS: BASO # 0.1 10^3/uL (0.0-0.2); BASO % 0.5 % (0.0-1.0); EOS # 0.6 10^3/uL (0.0-0.5); EOS % 4.1 % (0.0-3.0); HEMOGLOBIN 12.2 g/dl (13.5-17.5); LYMPH # 1.6 10^3/uL (1.5-5.0); MEAN CORPUSCULAR HEMOGLOBIN 28.4 pg (27.0-33.0); MEAN CORPUSCULAR HGB CONC 31.3 g/dl (32.0-36.5); MEAN CORPUSCULAR VOLUME 90.9 fl (80.0-96.0); MONO # 0.9 10^3/uL (0.0-0.8); MONO % 6.8 % (2.0-8.0); NEUTROPHILS % 75.2 % (36.0-66.0); PLATELET COUNT, AUTOMATED 253 10^3/uL (150-450); RED BLOOD COUNT 4.29 10^6/uL (4.30-6.10); WHITE BLOOD COUNT 13.3 10^3/uL (4.0-10.0)
[2021-04-25 14:00] LABS: ALBUMIN 3.1 GM/DL (3.2-5.2); ALT/SGPT 59 U/L (12-78); BILIRUBIN,TOTAL 0.7 MG/DL (0.2-1.0); BLOOD UREA NITROGEN 17 MG/DL (7-18); C REACTIVE PROTEIN QUANTITATIV 3.46 MG/DL (0.00-0.30); CARBON DIOXIDE LEVEL 31 MEQ/L (21-32); CHLORIDE LEVEL 103 MEQ/L (98-107); CREATININE FOR GFR 0.89 MG/DL (0.70-1.30); GLOMERULAR FILTRATION RATE > 60.0 (>49); GLUCOSE, FASTING 165 MG/DL (70-100); POTASSIUM SERUM 3.5 MEQ/L (3.5-5.1); SODIUM LEVEL 141 MEQ/L (136-145); TOTAL PROTEIN 6.4 GM/DL (6.4-8.2)
[2021-04-25 14:01] LABS: ERYTHROCYTE SEDIMENTATION RATE 52 mm/hr (0-20)
== END ==
LOC: M SHH 13:02
PROVIDERS: ATTEND Internal Medicine Infectious Disease
DX: K75.0 Abscess of liver (principal)

== ENCOUNTER → 2021-05-03 | Outpatient (REF) | payer MEDICARE, BC, OTHER ==
[2021-05-03 15:02] LABS: ALBUMIN 3.1 GM/DL (3.2-5.2); ALT/SGPT 86 U/L (12-78); BILIRUBIN,TOTAL 2.4 MG/DL (0.2-1.0); BLOOD UREA NITROGEN 16 MG/DL (7-18); CALCIUM LEVEL 8.9 MG/DL (8.8-10.2); CARBON DIOXIDE LEVEL 29 MEQ/L (21-32); CHLORIDE LEVEL 100 MEQ/L (98-107); CREATININE FOR GFR 0.94 MG/DL (0.70-1.30); GLOMERULAR FILTRATION RATE > 60.0 (>49); GLUCOSE, FASTING 146 MG/DL (70-100); POTASSIUM SERUM 4.4 MEQ/L (3.5-5.1); SODIUM LEVEL 136 MEQ/L (136-145); TOTAL PROTEIN 6.7 GM/DL (6.4-8.2)
[2021-05-03 15:06] LABS: BASO # 0.1 10^3/uL (0.0-0.2); BASO % 0.4 % (0.0-1.0); EOS # 0.3 10^3/uL (0.0-0.5); EOS % 1.9 % (0.0-3.0); HEMATOCRIT 41.8 % (42.0-52.0); HEMOGLOBIN 12.8 g/dl (13.5-17.5); LYMPH # 1.4 10^3/uL (1.5-5.0); LYMPH % 10.2 % (24.0-44.0); MEAN CORPUSCULAR HEMOGLOBIN 27.5 pg (27.0-33.0); MEAN CORPUSCULAR HGB CONC 30.6 g/dl (32.0-36.5); MEAN CORPUSCULAR VOLUME 89.9 fl (80.0-96.0); MONO # 1.2 10^3/uL (0.0-0.8); MONO % 8.7 % (2.0-8.0); NEUTROPHILS % 77.9 % (36.0-66.0); PLATELET COUNT, AUTOMATED 189 10^3/uL (150-450); RED BLOOD COUNT 4.65 10^6/uL (4.30-6.10); WHITE BLOOD COUNT 14.1 10^3/uL (4.0-10.0)
[2021-05-03 16:24] LABS: ERYTHROCYTE SEDIMENTATION RATE 47 mm/hr (0-20)
== END ==
LOC: M SHH 14:10
PROVIDERS: ATTEND Internal Medicine Infectious Disease
DX: K75.0 Abscess of liver (principal)

== ENCOUNTER → 2021-05-03 | Outpatient (REF) | payer MEDICARE, BC, OTHER ==
[2021-05-03 14:53] LABS: BLOOD UREA NITROGEN 15 MG/DL (7-18); CARBON DIOXIDE LEVEL 29 MEQ/L (21-32); CHLORIDE LEVEL 101 MEQ/L (98-107); CREATININE FOR GFR 0.97 MG/DL (0.70-1.30); GLOMERULAR FILTRATION RATE > 60.0 (>49); GLUCOSE, FASTING 147 MG/DL (70-100); POTASSIUM SERUM 4.4 MEQ/L (3.5-5.1); SODIUM LEVEL 137 MEQ/L (136-145)
== END ==
LOC: M SHH 14:12
PROVIDERS: ATTEND Physician Assistant
DX: I50.42 Chronic combined systolic (congestive) and diastolic (congestive) heart failure (principal)

== ENCOUNTER → 2021-05-10 | Outpatient (REF) | payer MEDICARE, BC, OTHER ==
[~2021-05-10] MED LIST changes: -LISI2.5T2 PO; +LISI2.5T9 PO
[2021-05-10 10:34] LABS: BASO # 0.1 10^3/uL (0.0-0.2); BASO % 0.6 % (0.0-1.0); EOS # 0.6 10^3/uL (0.0-0.5); EOS % 3.5 % (0.0-3.0); HEMATOCRIT 43.6 % (42.0-52.0); HEMOGLOBIN 13.5 g/dl (13.5-17.5); LYMPH # 3.5 10^3/uL (1.5-5.0); LYMPH % 20.4 % (24.0-44.0); MEAN CORPUSCULAR HEMOGLOBIN 27.6 pg (27.0-33.0); MONO # 1.3 10^3/uL (0.0-0.8); MONO % 7.4 % (2.0-8.0); NEUTROPHILS # 11.4 10^3/uL (1.5-8.5); NEUTROPHILS % 66.5 % (36.0-66.0); PLATELET COUNT, AUTOMATED 297 10^3/uL (150-450); WHITE BLOOD COUNT 17.1 10^3/uL (4.0-10.0)
[2021-05-10 11:06] LABS: ALBUMIN 3.2 GM/DL (3.2-5.2); ALT/SGPT 72 U/L (12-78); BILIRUBIN,TOTAL 0.9 MG/DL (0.2-1.0); BLOOD UREA NITROGEN 18 MG/DL (7-18); C REACTIVE PROTEIN QUANTITATIV 3.83 MG/DL (0.00-0.30); CARBON DIOXIDE LEVEL 28 MEQ/L (21-32); CHLORIDE LEVEL 102 MEQ/L (98-107); CREATININE FOR GFR 0.99 MG/DL (0.70-1.30); GLOMERULAR FILTRATION RATE > 60.0 (>49); GLUCOSE, FASTING 183 MG/DL (70-100); SODIUM LEVEL 137 MEQ/L (136-145); TOTAL PROTEIN 6.9 GM/DL (6.4-8.2)
[2021-05-10 11:09] LABS: ERYTHROCYTE SEDIMENTATION RATE 56 mm/hr (0-20)
== END ==
LOC: M SHH 10:24
PROVIDERS: ATTEND Internal Medicine Infectious Disease
DX: K75.0 Abscess of liver (principal)

== ENCOUNTER → 2021-05-17 | Outpatient (REF) | payer MEDICARE, BC, OTHER ==
[2021-05-17 13:52] LABS: BASO # 0.1 10^3/uL (0.0-0.2); BASO % 0.4 % (0.0-1.0); EOS # 0.3 10^3/uL (0.0-0.5); EOS % 2.2 % (0.0-3.0); HEMATOCRIT 41.8 % (42.0-52.0); HEMOGLOBIN 13.1 g/dl (13.5-17.5); LYMPH # 1.7 10^3/uL (1.5-5.0); LYMPH % 11.7 % (24.0-44.0); MEAN CORPUSCULAR HEMOGLOBIN 27.7 pg (27.0-33.0); MEAN CORPUSCULAR HGB CONC 31.3 g/dl (32.0-36.5); MEAN CORPUSCULAR VOLUME 88.4 fl (80.0-96.0); MONO # 1.2 10^3/uL (0.0-0.8); NEUTROPHILS # 11.2 10^3/uL (1.5-8.5); NEUTROPHILS % 76.6 % (36.0-66.0); PLATELET COUNT, AUTOMATED 276 10^3/uL (150-450); RED BLOOD COUNT 4.73 10^6/uL (4.30-6.10); WHITE BLOOD COUNT 14.6 10^3/uL (4.0-10.0)
[2021-05-17 14:31] LABS: ERYTHROCYTE SEDIMENTATION RATE 50 mm/hr (0-20)
[2021-05-17 15:12] LABS: ALT/SGPT 90 U/L (12-78); BILIRUBIN,TOTAL 0.8 MG/DL (0.2-1.0); BLOOD UREA NITROGEN 16 MG/DL (7-18); C REACTIVE PROTEIN QUANTITATIV 3.97 MG/DL (0.00-0.30); CALCIUM LEVEL 8.5 MG/DL (8.8-10.2); CARBON DIOXIDE LEVEL 27 MEQ/L (21-32); CHLORIDE LEVEL 102 MEQ/L (98-107); CREATININE FOR GFR 0.96 MG/DL (0.70-1.30); GLOMERULAR FILTRATION RATE > 60.0 (>49); GLUCOSE, FASTING 162 MG/DL (70-100); POTASSIUM SERUM 4.1 MEQ/L (3.5-5.1); SODIUM LEVEL 138 MEQ/L (136-145); TOTAL PROTEIN 6.8 GM/DL (6.4-8.2)
== END ==
LOC: M SHH 13:32
PROVIDERS: ATTEND Internal Medicine Infectious Disease
DX: K75.0 Abscess of liver (principal); K83.9 Disease of biliary tract, unspecified

== ENCOUNTER → 2021-05-17 | Outpatient (REF) | payer MEDICARE, BC, OTHER ==
[2021-05-17 14:32] LABS: ALBUMIN 3.1 GM/DL (3.2-5.2); BILIRUBIN,DIRECT 0.5 MG/DL (0.0-0.2); BILIRUBIN,TOTAL 0.9 MG/DL (0.2-1.0); TOTAL PROTEIN 6.9 GM/DL (6.4-8.2)
== END ==
LOC: M SHH 13:30
PROVIDERS: ATTEND Surgery
DX: K83.9 Disease of biliary tract, unspecified (principal)

== ENCOUNTER → 2021-05-22 | Outpatient (CLI) | payer MEDICARE, BC, OTHER ==
[~2021-05-22] MED LIST changes: +ISOVUE-370 76% 100ML VIAL As Ordered ONE
--- NOTE | 2021-05-22 11:17 | REP ---
INDICATION: LIVER ABSCESS. COMPARISON: 02/13/2021 TECHNIQUE: Axial contrast-enhanced images from the lung bases to the pubic symphysis using 100 cc Isovue 370 intravenous contrast material. Precontrast and delayed images of the abdomen obtained along with coronal and sagittal reformations.. This CT examination was performed using the following dose reduction techniques: Automated exposure control, adjustment of mA and/or kv according to the patient's size, and the use of iterative reconstruction technique. FINDINGS: The previous biliary drainage catheter has been removed. The liver demonstrates considerable improvement and the previously noted hypodense fluid collections in the left lobe have resolved. Chronic stable hepatomegaly and subtle contour irregularity which may represent cirrhosis is again noted. No new acute hepatic lesions are identified. Spleen, pancreas, bilateral adrenal glands and kidneys are stable/essentially normal. Few renal hypodensities are again noted measuring up to 1.5 cm in the right kidney and likely represent small cysts. Evidence for prior gastric bypass surgery. No bowel obstruction or acute inflammatory process. Normal terminal ileum and appendix identified in the right lower quadrant. Scattered colonic diverticula noted without acute diverticulitis. Pelvis demonstrates collapsed bladder and possible previous prostate procedure. No pelvic fluid or adenopathy. No ascites. No free air. No intraperitoneal or retroperitoneal adenopathy. Atherosclerotic changes to the aorta and vasculature noted without aneurysm or dissection. Musculoskeletal structures demonstrate degenerative changes without acute process. The lung bases demonstrate chronic interstitial changes and fibrosis along with subtle patchy suspected active airspace disease irregular serpiginous/rounded structures in the posterior mediastinum which appear to follow the visible right infrahilar region may represent adenopathy but appears similar to prior examinations. IMPRESSION: 1. Liver demonstrates resolution to the previously noted multifocal abscesses. Chronic relatively stable hepatomegaly and findings to suggest cirrhosis. 2. Nonacute stable findings as described above. 3. Lung bases demonstrate fibrosis, patchy possible acute alveolar infiltrates, and findings extending to the right infrahilar region which may represent adenopathy. Correlation with pulmonology and follow-up chest CT may be warranted. <Electronically signed by Fred Small > 05/22/21 [id number]
== END ==
LOC: M RAD 09:53
PROVIDERS: ATTEND Internal Medicine Infectious Disease
DX: K75.0 Abscess of liver (principal)
CPT/HCPCS: 74178; Q9967

== ENCOUNTER → 2021-05-23 | Outpatient (REF) | payer MEDICARE, BC, OTHER ==
[~2021-05-23] MED LIST changes: -ISOVUE-370 76% 100ML VIAL As Ordered ONE
[2021-05-23 14:55] LABS: BASO # 0.1 10^3/uL (0.0-0.2); BASO % 0.5 % (0.0-1.0); EOS # 0.4 10^3/uL (0.0-0.5); EOS % 2.4 % (0.0-3.0); HEMATOCRIT 43.5 % (42.0-52.0); HEMOGLOBIN 13.6 g/dl (13.5-17.5); LYMPH % 12.8 % (24.0-44.0); MEAN CORPUSCULAR HEMOGLOBIN 27.8 pg (27.0-33.0); MEAN CORPUSCULAR HGB CONC 31.3 g/dl (32.0-36.5); MONO # 1.1 10^3/uL (0.0-0.8); MONO % 7.2 % (2.0-8.0); NEUTROPHILS # 11.5 10^3/uL (1.5-8.5); NEUTROPHILS % 75.8 % (36.0-66.0); PLATELET COUNT, AUTOMATED 224 10^3/uL (150-450); RED BLOOD COUNT 4.89 10^6/uL (4.30-6.10); WHITE BLOOD COUNT 15.2 10^3/uL (4.0-10.0)
[2021-05-23 15:35] LABS: ERYTHROCYTE SEDIMENTATION RATE 38 mm/hr (0-20)
[2021-05-23 16:34] LABS: BLOOD UREA NITROGEN 19 MG/DL (7-18); CARBON DIOXIDE LEVEL 29 MEQ/L (21-32); CHLORIDE LEVEL 101 MEQ/L (98-107); CREATININE FOR GFR 0.99 MG/DL (0.70-1.30); GLOMERULAR FILTRATION RATE > 60.0 (>49); GLUCOSE, FASTING 163 MG/DL (70-100); POTASSIUM SERUM 4.2 MEQ/L (3.5-5.1); SODIUM LEVEL 138 MEQ/L (136-145)
[2021-05-23 16:35] LABS: ALT/SGPT 78 U/L (12-78); BILIRUBIN,TOTAL 0.8 MG/DL (0.2-1.0); C REACTIVE PROTEIN QUANTITATIV 3.67 MG/DL (0.00-0.30); CALCIUM LEVEL 9.3 MG/DL (8.8-10.2); TOTAL PROTEIN 6.9 GM/DL (6.4-8.2)
== END ==
LOC: M SHH 14:34
PROVIDERS: ATTEND Internal Medicine Infectious Disease
DX: K75.0 Abscess of liver (principal)

== ENCOUNTER → 2021-06-06 | Outpatient (REF) | payer MEDICARE, BC, OTHER ==
[2021-06-06 11:46] LABS: BASO # 0.1 10^3/uL (0.0-0.2); BASO % 0.7 % (0.0-1.0); EOS # 0.7 10^3/uL (0.0-0.5); EOS % 4.5 % (0.0-3.0); HEMATOCRIT 42.9 % (42.0-52.0); HEMOGLOBIN 13.6 g/dl (13.5-17.5); LYMPH # 3.4 10^3/uL (1.5-5.0); LYMPH % 21.3 % (24.0-44.0); MEAN CORPUSCULAR HGB CONC 31.7 g/dl (32.0-36.5); MEAN CORPUSCULAR VOLUME 88.3 fl (80.0-96.0); MONO # 1.2 10^3/uL (0.0-0.8); MONO % 7.5 % (2.0-8.0); NEUTROPHILS # 10.5 10^3/uL (1.5-8.5); NEUTROPHILS % 64.9 % (36.0-66.0); PLATELET COUNT, AUTOMATED 233 10^3/uL (150-450); RED BLOOD COUNT 4.86 10^6/uL (4.30-6.10); WHITE BLOOD COUNT 16.2 10^3/uL (4.0-10.0)
[2021-06-06 12:20] LABS: ALT/SGPT 61 U/L (12-78); BILIRUBIN,TOTAL 0.8 MG/DL (0.2-1.0); BLOOD UREA NITROGEN 17 MG/DL (7-18); C REACTIVE PROTEIN QUANTITATIV 2.41 MG/DL (0.00-0.30); CARBON DIOXIDE LEVEL 30 MEQ/L (21-32); CHLORIDE LEVEL 103 MEQ/L (98-107); CREATININE FOR GFR 0.91 MG/DL (0.70-1.30); GLOMERULAR FILTRATION RATE > 60.0 (>49); GLUCOSE, FASTING 139 MG/DL (70-100); POTASSIUM SERUM 3.9 MEQ/L (3.5-5.1); SODIUM LEVEL 140 MEQ/L (136-145); TOTAL PROTEIN 6.6 GM/DL (6.4-8.2)
[2021-06-06 12:35] LABS: ERYTHROCYTE SEDIMENTATION RATE 36 mm/hr (0-20)
== END ==
LOC: M SHH 11:18
PROVIDERS: ATTEND Internal Medicine Infectious Disease
DX: K75.0 Abscess of liver (principal)

== ENCOUNTER → 2021-06-20 | Outpatient (REF) | payer MEDICARE, BC, OTHER ==
[~2021-06-20] MED LIST changes: -KLOR10TA76 PO; +POTA-136 PO
== END ==
LOC: M SFHCPLAZ 13:17
PROVIDERS: ATTEND Internal Medicine Infectious Disease
DX: R19.7 Diarrhea, unspecified (principal)

== ENCOUNTER → 2021-06-20 | Outpatient (REF) | payer MEDICARE, BC, OTHER ==
[2021-06-20 11:15] LABS: BASO # 0.1 10^3/uL (0.0-0.2); BASO % 0.5 % (0.0-1.0); EOS # 0.3 10^3/uL (0.0-0.5); EOS % 2.1 % (0.0-3.0); HEMATOCRIT 42.1 % (42.0-52.0); HEMOGLOBIN 13.1 g/dl (13.5-17.5); LYMPH # 2.9 10^3/uL (1.5-5.0); LYMPH % 18.9 % (24.0-44.0); MEAN CORPUSCULAR HEMOGLOBIN 27.4 pg (27.0-33.0); MEAN CORPUSCULAR HGB CONC 31.1 g/dl (32.0-36.5); MEAN CORPUSCULAR VOLUME 88.1 fl (80.0-96.0); MONO # 1.2 10^3/uL (0.0-0.8); MONO % 7.5 % (2.0-8.0); NEUTROPHILS # 10.8 10^3/uL (1.5-8.5); PLATELET COUNT, AUTOMATED 242 10^3/uL (150-450); RED BLOOD COUNT 4.78 10^6/uL (4.30-6.10); WHITE BLOOD COUNT 15.4 10^3/uL (4.0-10.0)
[2021-06-20 11:49] LABS: ERYTHROCYTE SEDIMENTATION RATE 49 mm/hr (0-20)
[2021-06-20 12:44] LABS: ALBUMIN 2.9 GM/DL (3.2-5.2); ALT/SGPT 35 U/L (12-78); BLOOD UREA NITROGEN 17 MG/DL (7-18); C REACTIVE PROTEIN QUANTITATIV 6.69 MG/DL (0.00-0.30); CALCIUM LEVEL 8.6 MG/DL (8.8-10.2); CARBON DIOXIDE LEVEL 26 MEQ/L (21-32); CHLORIDE LEVEL 104 MEQ/L (98-107); CREATININE FOR GFR 0.91 MG/DL (0.70-1.30); GLOMERULAR FILTRATION RATE > 60.0 (>49); GLUCOSE, FASTING 107 MG/DL (70-100); POTASSIUM SERUM 3.9 MEQ/L (3.5-5.1); SODIUM LEVEL 140 MEQ/L (136-145); TOTAL PROTEIN 6.4 GM/DL (6.4-8.2)
== END ==
LOC: M SHH 10:46
PROVIDERS: ATTEND Internal Medicine Infectious Disease
DX: K75.0 Abscess of liver (principal)

== ENCOUNTER 2021-07-05 16:27 | Outpatient (CLI) | payer MEDICARE, BC, OTHER ==
[~2021-07-05] VITALS: Ht 190.5 cm; Wt 171.0 kg
[2021-07-05] MEDS ORDERED: BEZLOTOXUMAB IV ONE (16:30)
[2021-07-05] MEDS ORDERED: NS IV ONE (16:30)
[2021-07-05 16:59] VITALS: BP 165/59
[2021-07-05 17:17] LABS: BASO # 0.1 10^3/uL (0.0-0.2); BASO % 0.4 % (0.0-1.0); EOS # 0.1 10^3/uL (0.0-0.5); EOS % 0.8 % (0.0-3.0); HEMATOCRIT 39.7 % (42.0-52.0); HEMOGLOBIN 12.5 g/dl (13.5-17.5); LYMPH # 2.1 10^3/uL (1.5-5.0); LYMPH % 13.9 % (24.0-44.0); MEAN CORPUSCULAR HEMOGLOBIN 27.5 pg (27.0-33.0); MEAN CORPUSCULAR HGB CONC 31.5 g/dl (32.0-36.5); MEAN CORPUSCULAR VOLUME 87.3 fl (80.0-96.0); MONO % 6.5 % (2.0-8.0); NEUTROPHILS # 11.5 10^3/uL (1.5-8.5); NEUTROPHILS % 77.4 % (36.0-66.0); PLATELET COUNT, AUTOMATED 218 10^3/uL (150-450); RED BLOOD COUNT 4.55 10^6/uL (4.30-6.10); WHITE BLOOD COUNT 14.8 10^3/uL (4.0-10.0)
[2021-07-05 17:31] LABS: BLOOD UREA NITROGEN 20 MG/DL (7-18); CALCIUM LEVEL 9.1 MG/DL (8.8-10.2); CARBON DIOXIDE LEVEL 30 MEQ/L (21-32); CHLORIDE LEVEL 104 MEQ/L (98-107); CREATININE FOR GFR 1.03 MG/DL (0.70-1.30); GLOMERULAR FILTRATION RATE > 60.0 (>49); GLUCOSE, FASTING 194 MG/DL (70-100); POTASSIUM SERUM 4.2 MEQ/L (3.5-5.1); SODIUM LEVEL 140 MEQ/L (136-145)
[2021-07-05 18:20] VITALS: BP 141/74
== END 2021-07-05 18:20 | disposition home or self-care (01) ==
LOC: M INFU 16:27
PROVIDERS: ATTEND Internal Medicine Infectious Disease
DX: A04.72 Enterocolitis due to Clostridium difficile, not specified as recurrent (principal); Z88.8 Allergy status to other drugs, medicaments and biological substances
CPT/HCPCS: 36592; 80048; 85025; 96365; J0565

== ENCOUNTER → 2021-07-09 | Outpatient (REF) | payer MEDICARE, BC, OTHER ==
[2021-07-09 15:06] LABS: BLOOD UREA NITROGEN 17 MG/DL (7-18); CALCIUM LEVEL 9.2 MG/DL (8.8-10.2); CARBON DIOXIDE LEVEL 30 MEQ/L (21-32); CHLORIDE LEVEL 101 MEQ/L (98-107); CREATININE FOR GFR 0.91 MG/DL (0.70-1.30); GLOMERULAR FILTRATION RATE > 60.0 (>49); GLUCOSE, FASTING 176 MG/DL (70-100); POTASSIUM SERUM 4.3 MEQ/L (3.5-5.1); SODIUM LEVEL 138 MEQ/L (136-145)
== END ==
LOC: M SHH 13:29
PROVIDERS: ATTEND Physician Assistant
DX: I50.42 Chronic combined systolic (congestive) and diastolic (congestive) heart failure (principal)

== ENCOUNTER → 2021-07-09 | Outpatient (REF) | payer MEDICARE, BC, OTHER ==
[2021-07-09 14:34] LABS: BASO # 0.1 10^3/uL (0.0-0.2); BASO % 0.5 % (0.0-1.0); EOS # 0.2 10^3/uL (0.0-0.5); EOS % 1.2 % (0.0-3.0); HEMATOCRIT 41.7 % (42.0-52.0); HEMOGLOBIN 13.1 g/dl (13.5-17.5); LYMPH # 1.8 10^3/uL (1.5-5.0); LYMPH % 10.4 % (24.0-44.0); MEAN CORPUSCULAR HEMOGLOBIN 28.1 pg (27.0-33.0); MEAN CORPUSCULAR HGB CONC 31.4 g/dl (32.0-36.5); MEAN CORPUSCULAR VOLUME 89.5 fl (80.0-96.0); MONO # 1.2 10^3/uL (0.0-0.8); MONO % 7.3 % (2.0-8.0); NEUTROPHILS # 13.6 10^3/uL (1.5-8.5); NEUTROPHILS % 79.5 % (36.0-66.0); PLATELET COUNT, AUTOMATED 229 10^3/uL (150-450); RED BLOOD COUNT 4.66 10^6/uL (4.30-6.10); WHITE BLOOD COUNT 17.1 10^3/uL (4.0-10.0)
[2021-07-09 15:43] LABS: BLOOD UREA NITROGEN 17 MG/DL (7-18); CALCIUM LEVEL 9.3 MG/DL (8.8-10.2); CARBON DIOXIDE LEVEL 29 MEQ/L (21-32); CHLORIDE LEVEL 102 MEQ/L (98-107); GLOMERULAR FILTRATION RATE > 60.0 (>49); GLUCOSE, FASTING 174 MG/DL (70-100); POTASSIUM SERUM 4.4 MEQ/L (3.5-5.1); SODIUM LEVEL 139 MEQ/L (136-145)
== END ==
LOC: M LAB REF 13:31 → M SHH 13:31
PROVIDERS: ATTEND Internal Medicine Infectious Disease
DX: A04.72 Enterocolitis due to Clostridium difficile, not specified as recurrent (principal); R19.7 Diarrhea, unspecified

== ENCOUNTER 2021-08-07 09:47 | Emergency (ER) | payer MEDICARE, BC, OTHER ==
[~2021-08-07] VITALS: Ht 190.5 cm; Wt 173.6 kg
--- OUTSIDE RECORDS SUMMARY | 2021-08-07 09:58 | CCD | Continuity of Care Document ---
Author Author Eliud PARHAM PA-C Organization Unknown Address [id number] [place] [address] [place] [address] Phone [phone] Care Team Providers Care Lining Scrubber Name Role Phone Garett Blue MD AUTM [phone] Shawn Buitrago DO AUTM [phone] Bob Murillo MD AUTM [phone] Marietta Parham PA-C AUTM [phone] Eliud Low DPM AUTM [phone] Mo Hugo MD AUTM [phone] Oleksandr Lawrence MD AUTM [phone] Jigar Can MD AUTM [phone] TacoVivien soto MD AUTM [phone] Problems Active Problems Provider Date Coronary arteriosclerosis Marietta Parham PA-C Onset: 2010 Old myocardial infarction Marietta Parham PA-C Onset: 2010 History of coronary artery bypass grafting Stress Nuclear/Re g Treadmill Onset: 08/14/2015 Patient post percutaneous transluminal coronary angiop lasty Marietta Parham PA-C Onset: 08/20/2015 Ventricular fibrillation Marietta Parham PA-C Onset: 015 Chronic combined systolic and diastolic heart failure Marietta Parham PA-C Onset: 08/20/2015 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 Marietta Parham PA-C Onset: 07/23/2012 Chronic atrial fibrillation Marietta Parham PA-C Onset: 07/30 Pure hypercholesterolemia Marietta Parham PA-C Onset: 2010 Obesity AYANA Gomez-C Onset: 08/20/2015 Atrioventricular block Marietta Parahm, PA-C Onset: 6 Cardiac pacemaker in situ Marietta Parham PA-C Onset: 2014 Obstructive sleep apnea syndrome Marietta Parham, PA-C Onset: 02/18/2012 Aortic valve disorder Marietta Parham, PA-C Onset: 02/19/2018 Mitral valve disorder Marietta Parham PA-C Onset: 02/19/2018 Dietary management surveillance AYANA Gomez-C Onset: 08/24/2018 Chronic cor pulmonale Marietta Parham, PA-C Onset: 10/26/2019 Permanent atrial fibrillation Marietta Parham PA-C Onset: Body mass index 40+ - severely obese Ons et: 09/30/2012 Chronic pulmonary heart disease Onset: 0 02/13/2020 Dyspnea Onset: 08/20/2020 Essential hypertension Onset: 10/02/2011 Ex-smoker Onset: 09/30/2012 Hypoxemia Onset: 02/13/2020 Morbid obesity Onset: 10/07/2010 Obstructive sleep apnea syndrome Onset: 10/07/2010 Post-inflammatory pulmonary fibrosis Ons et: 04/18/2020 Chronic cor pulmonale Marietta Parham, PA-C Onset: 07/17/2021 Social History Type Date Description Comments Sex Unknown Tobacco Use Start: Unknown End: Unknown Former Cigarette Smo ker quit 15 yrs ago, smoked 2 ppd for 30 yrs ETOH Use Does not consume alcohol Tobacco Use Start: Unknown End: Unknown Patient is a former smoker quit 15 yrs ago, smoked 2 ppd for 30 yrs Smoking Status Reviewed: 07/17/21 Patient is a former smoker qu it 15 yrs ago, smoked 2 ppd for 30 yrs Exercise Type/Frequency Does not exercise curren tly Exercise Limitations Joint Pain knees Exercise Limitations Shortness Of Breath Allergies and adverse reactions Active Allergies Criticality Reaction | Severity Comments Date Lipitor Unable to assess criticality myalgia and weakness in legs 04/13/2014 Zocor Unable to assess criticality myalgia and weakness in legs 04/05/2018 Amiodarone Unable to assess criticality severe SOB/t oxicity 03/10/2019 Medications Active Medications SIG Qnty Indications Ordering Provide r Date Oxygen - Home 4 lpm Unknown 07/16/2021 Vitamin D (Ergocalciferol) 1.25mg (01039 Ut) Capsules 1 tab by mouth every day 30caps Unknown Klor-Con 10 10Meq Tablets ER 2 by mouth twice a day 360tabs I50.42 Eliud Mejía MD 04/23/2021 Digoxin 250mcg Tablets 1 by mouth every day 90tabs I48.21 Eliud Mejía MD 03/12/2021 I49.01 Metoprolol Tartrate 50mg Tablets 1 by mouth twice a day I25.10 Unknown 03/11/2021 I50.42 I48.21 Synthroid 25mcg Tablets 1/2 by mouth every day with 200 mcg dose Garett Blue MD 11/27 Ferrous Fumarate 324(106Fe) mg Tab lets 1 by mouth daily Unknown 06/19/2020 Gabapentin 300mg Capsules 1 by mouth two times a day Jigar Can MD 06/19/2020 Clotrimazole/Betamethasone Dipropionate 1-0.05% Cream apply as needed twice a day Laurent Can MD 06/19/2020 Prednisone 10mg Tablets 1 by mouth every day Jigar Can MD 06/19/2020 Eliquis 5mg Tablets 1 by mouth twice a day 180tabs I48.21 Eliud Mejía MD 05/25/2020 Synthroid 200mcg Tablets 1 by mouth every day Unknown 08/23/2018 Stool Softener 100mg Capsules 1 by mouth every day Unknown 08/23/[address] Oil [address] C[address] 1 daily Unknown 08/23/[address] 1 by mouth every day I25.10 Eliud Mejía MD 01/20/2017 Nitrostat 0.4mg Tablets Sub 1 sl every 5min x3 as needed for chest pain 25tabs I25.10 Eliud Mejía MD 08/19/2016 Pantoprazole Sodium 40mg Tablets D R 1 by mouth every day (to protect pouch while on Plavix) Bob Murillo MD 10/07/2015 Crestor 20mg Tablets 1 by mouth every night at bedtime 90tabs I25.10 Eliud Mejía MD 05/16/2015 E78.0 Loratadine 10mg Tablets 1 by mouth every day Unknown 05/15/2015 Calcium Citrate +D [id number] Tablets 2 by mouth every day Bob Murillo MD 07/20 Finasteride 5mg Tablets 1 by mouth every day Garett Blue MD 04/13/2014 Multiple Vitamin Tablets 2 p o qd Bob Murillo MD 12/11/2013 Vitamin B-12 500mcg Tablets 1 po qd Bob Murillo MD 12/11/2013 Cranberry Fruit 25,000mg Capsules 1 po qd Garett Blue MD 02/03/2013 Flonase 50mcg/Act Suspension 2 Squirts Each Nare Daily Ricardo Garrido DO 08/09/2007 Flomax 0.4mg Caps ER 24HR 1 P O daily Ricardo Garrido DO 08/09/2007 Furosemide 40mg Tablets 1 by mouth every day Unknown History Medications Metoprolol Succinate ER 50mg Tablets ER 24HR 2 times daily Unknown 04/22/2021 - 0 04/22/2021 Klor-Con 10 10Meq Tablets ER 1 by mouth every day I50.42 Unknown 04/22/2021 - Fluconazole 200mg Tablets 1 by mouth daily Unknown 04/22/2021 - Levofloxacin 500mg Tablets 1 by mouth daily Unknown 04/22/2021 - Midodrine HCL 5mg Tablets 1 tablet by mouth three times a day, only for SBP < 100 90tabs I50.42 Usman Mejía MD 03/12/2021 - 07/16/2021 Midodrine HCL 5mg Tablets 1 tablet by mouth three times a day, hold for SBP > 140 I50.42 Unkn own 03/11/2021 - 03/12/2021 Immunizations Description No Information Available Vital Signs Date Vital Result Comment 07/17/2021 9:20am Weight 384.00 lb Height 75 inches 6'3" BMI (Body Mass Index) 48.0 kg/m2 Heart Rate 80 /min Regular Respiratory Rate 16 /min BP Systolic Right Arm 116 mmHg sitting, large cuf f BP Diastolic Right Arm 68 mmHg sitting, large cu ff BP Systolic Left Arm 114 mmHg sitting BP Diastolic Left Arm 68 mmHg sitting 04/23/2021 9:31am Weight 393.00 lb Home Weight 398lb Height 75 inches 6'3" BMI (Body Mass Index) 49.1 kg/m2 Heart Rate 80 /min Regular Respiratory Rate 16 /min BP Systolic Right Arm 108 mmHg sitting, large cuf f BP Diastolic Right Arm 60 mmHg sitting, large cu ff Results Test Acquired Date Facility Test Result H/L Range Note Basic Metabolic Profile 07/09/2021 [facility] [phone] Glucose, Fasting 176 mg/dL High 70-100 Blood Urea Nitrogen 17 mg/dL Normal 7-18 Creatinine For GFR 0.91 mg/dL Normal 0.70-1.30 Glomerular Filtration Rate > 60.0 Normal >49 1 Sodium Level 138 mEq/L Normal 136-145 Potassium Serum 4.3 mEq/L Normal 3.5-5.1 Chloride Level 101 mEq/L Normal 98-107 Carbon Dioxide Level 30 mEq/L Normal 21-32 Anion Gap 7 mEq/L Low 8-16 Calcium Level 9.2 mg/dL Normal 8.8-10.2 Laboratory test finding 07/09/2021 [facility] [phone] Magnesium Level 2.0 mg/dL Normal 1.8-2.4 Basic Metabolic Profile 05/03/2021 [facility] [phone] Glucose, Fasting 147 mg/dL High 70-100 Blood Urea Nitrogen 15 mg/dL Normal 7-18 Creatinine For GFR 0.97 mg/dL Normal 0.70-1.30 Glomerular Filtration Rate > 60.0 Normal >49 2 Sodium Level 137 mEq/L Normal 136-145 Potassium Serum 4.4 mEq/L Normal 3.5-5.1 Chloride Level 101 mEq/L Normal 98-107 Carbon Dioxide Level 29 mEq/L Normal 21-32 Anion Gap 7 mEq/L Low 8-16 Calcium Level 9.0 mg/dL Normal 8.8-10.2 Laboratory test finding 04/18/2021 [facility] [phone] Magnesium Level 2.1 mg/dL Normal 1.8-2.4 Comprehensive Metabolic Profil 04/18/2021 [facility] [phone] Glucose, Fasting 169 mg/dL High 70-100 Blood Urea Nitrogen 17 mg/dL Normal 7-18 Creatinine For GFR 0.94 mg/dL Normal 0.70-1.30 Glomerular Filtration Rate > 60.0 Normal >49 3 Sodium Level 139 mEq/L Normal 136-145 Potassium Serum 3.3 mEq/L Low 3.5-5.1 Chloride Level 102 mEq/L Normal 98-107 Carbon Dioxide Level 29 mEq/L Normal 21-32 Anion Gap 8 mEq/L Normal 8-16 Calcium Level 8.6 mg/dL Low 8.8-10.2 Ast/Sgot 57 U/L High 7-37 Alt/SGPT 58 U/L Normal 12-78 Alkaline Phosphatase 335 U/L High 45-117 Bilirubin,Total 0.9 mg/dL Normal 0.2-1.0 Total Protein 6.6 GM/DL Normal 6.4-8.2 Albumin 3.0 GM/DL Low 3.2-5.2 Albumin/Globulin Ratio 0.8 Normal Laboratory test finding 04/18/2021 [facility] [phone] C Reactive Protein Quantitativ 5.62 mg/dL High 0 .00-0.30 CBC With Differential 04/18/2021 [facility] [phone] White Blood Count 14.2 10 High 4.0-10.0 Red Blood Count 4.27 10 Low 4.30-6.10 Hemoglobin 12.1 g/dL Low 13.5-17.5 Hematocrit 38.9 % Low 42.0-52.0 Mean Corpuscular Volume 91.1 fl Normal 80.0-96.0 Mean Corpuscular Hemoglobin 28.3 pg Normal 27.0-33.0 Mean Corpuscular HGB Conc 31.1 g/dL Low 32.0-36.5 Red Cell Distribution Width 14.4 % Normal 11.5-14.5 Platelet Count, Automated 265 10 Normal 150-450 Neutrophils % 69.1 % High 36.0-66.0 Lymph % 16.7 % Low 24.0-44.0 Eddy % 8.5 % High 2.0-8.0 Eos % 4.4 % High 0.0-3.0 Baso % 0.5 % Normal 0.0-1.0 Immature Granulocyte % 0.8 % Normal 0-3.0 Nucleated Red Blood Cell % 0.0 % Normal 0-0 Neutrophils # 9.8 10 High 1.5-8.5 Lymph # 2.4 10 Normal 1.5-5.0 Eddy # 1.2 10 High 0.0-0.8 Eos # 0.6 10 High 0.0-0.5 Baso # 0.1 10 Normal 0.0-0.2 Laboratory test finding 04/18/2021 [facility] [phone] Erythrocyte Sedimentation Rate 58 mm/hr High 0 -20 CBC without Differential 03/08/2021 [facility] - not inter faced (315)- - White Blood Count 8.3 5.0-10.0 Red Blood Count 3.59 Low 4.00-5.40 Platelets 197 172-450 Hemoglobin 10.4 Hematocrit 34.7 CMP 03/08/2021 [facility] - not interfaced (315)- - Albumin Serum/Plasma 2.9 Alt - SGPT 106 Calcium Ser/Plasma Mass/Vol 8.6 Carbon Dioxide Ser/Plasm 34 Chloride Serum/Plasma 104 Alkaline Phosphatase 553 Potassium 3.6 Protein Total 6.4 Sodium 143 Ast - Sgot 109 BUN - Urea Nitrogen 18 Glucose 186 High 83-110 Creatinine For GFR 1.11 CBC without Differential 02/28/2021 [facility] (315)- - White Blood Count 10.4 4.3-10.9 Red Blood Count 3.46 Low 4.70-6.20 Platelets 213 130-400 Hemoglobin 10.1 Low 13.0-17.0 Hematocrit 33.3 Low 39.0-50.0 [facility] 02/28/2021 [facility] (315)- - Albumin Serum/Plasma 2.8 Alt - SGPT 111 Calcium Ser/Plasma Mass/Vol 9.1 Carbon Dioxide Ser/Plasm 33 Chloride Serum/Plasma 101 Alkaline Phosphatase 636 Potassium 4.2 Protein Total 6.7 Sodium 139 Ast - Sgot 101 BUN - Urea Nitrogen 23 Glucose 109 High 70-100 Creatinine For GFR 1.00 1 Units are mL/min/1.73 m2 Chronic Kidney Disease Staging per NKF: Stage I & II GFR >=60 Normal to Mildly Decreased Stage III GFR 30-59 Moderately Decreased Stage IV GFR 15-29 Severely Decreased Stage V GFR <15 Very Little GFR Left ESRD GFR <15 on [place] [employer] 2 Units are mL/min/1.73 m2 Chronic Kidney Disease Staging per NKF: Stage I & II GFR >=60 Normal to Mildly Decreased Stage III GFR 30-59 Moderately Decreased Stage IV GFR 15-29 Severely Decreased Stage V GFR <15 Very Little GFR Left ESRD GFR <15 on [place] 3 Units are mL/min/1.73 m2 Chronic Kidney Disease Staging per NKF: Stage I & II GFR >=60 Normal to Mildly Decreased Stage III GFR 30-59 Moderately Decreased Stage IV GFR 15-29 Severely Decreased Stage V GFR <15 Very Little GFR Left ESRD GFR <15 on [place] [employer] Procedures Date Code Description Status 07/17/2021 36080 Office/Outpatient Established Mo d MDM 30-39 Min Completed 07/17/2021 18704 ECG 12-Lead Completed 06/11/2021 21242 Remote Pacemaker/Cardio-Defibril lator Data Acquistion Completed 06/11/2021 43311 Remote Interrogate D evice Eval Cardioverter/Defibrillator-90 Days Completed 04/23/2021 10073 Office/Outpatient Established Lo w MDM 20-29 Min Completed 03/12/2021 49832 Office/Outpatient Established Lo w MDM 20-29 Min Completed 03/12/2021 42493 Icd Programming Multi Leads Comp leted Medical Devices Description No Information Available Encounters Type Date Location Provider Dx Diagnosis Office Visit 07/17/2021 9:15a Main Office Marietta Parham PA-C I25.1 0 Athscl heart disease of [place] coronary artery w/o ang pctrs Z95.1 Presence of aortocoronary by pass graft I25.2 Old myocardial infarction Z95.5 Presence of coronary angiopl asty implant and graft I50.42 Chronic combined systolic an d diastolic hrt fail Z95.810 Presence of automatic (impla ntable) cardiac defibrillator I11.0 Hypertensive heart disease w ith heart failure I49.01 Ventricular fibrillation I48.21 Permanent atrial fibrillatio n I27.81 Cor pulmonale (chronic) I35.8 Other nonrheumatic aortic va lve disorders I34.0 Nonrheumatic mitral (valve) insufficiency I44.30 Unspecified atrioventricular block E78.00 Pure hypercholesterolemia, u nspecified G47.33 Obstructive sleep apnea (wilfredo lt) (pediatric) Z71.3 Dietary counseling and surve illance Office Visit 04/23/2021 9:30a Main Office Marietta Parham PA-C I50.4 2 Chronic combined systolic and diastolic hrt fail Office Visit 03/12/2021 9:15a Main Office CAIO Gomez I50.4 2 Chronic combined systolic and diastolic hrt fail I48.21 Permanent atrial fibrillatio n Z95.810 Presence of automatic (impla ntable) cardiac defibrillator Assessments Date Code Description Provider 07/17/2021 I25.10 Atherosclerotic heart disease of [place] coronary artery with Marietta Parham [facility] 07/17/2021 Z95.1 Presence of aortocoronary bypass graft Marietta Parham [facility] 07/17/2021 I25.2 Old myocardial infarction Marietta Parham [facility] 07/17/2021 Z95.5 Presence of coronary angioplasty implant and graft Marietta Parham [facility] 07/17/2021 I50.42 Chronic combined systolic (conge stive) and diastolic (conges Marietta Parham [facility] 07/17/2021 Z95.810 Presence of automatic (implantab le) cardiac defibrillator Marietta Parham [facility] 07/17/2021 I11.0 Hypertensive heart disease with heart failure Marietta Parham [facility] 07/17/2021 I49.01 Ventricular fibrillation Marietta Parham [facility] 07/17/2021 I48.21 Permanent atrial fibrillation Ray campbell Wally Parham [facility] 07/17/2021 I27.81 Cor pulmonale (chronic) Marietta justin [facility] 07/17/2021 I35.8 Other nonrheumatic aortic valve disorders Marietta Parham [facility] 07/17/2021 I34.0 Nonrheumatic mitral (valve) insu fficiency Marietta Parham [facility] 07/17/2021 I44.30 Unspecified atrioventricular blo ck Marietta Parham [facility] 07/17/2021 E78.00 Pure hypercholesterolemia, unspe cified Marietta Parham [facility] 07/17/2021 G47.33 Obstructive sleep apnea (adult) (pediatric) Marietta Parham [facility] 07/17/2021 Z71.3 Dietary counseling and surveilla ncwally Parham PA-C 06/11/2021 Z95.810 Presence of automatic (implantab le) cardiac defibrillator [facility] 04/23/2021 I50.42 Chronic combined systolic (conge stive) and diastolic (conges Marietta Parham PA-C 03/12/2021 I50.42 Chronic combined systolic (conge stive) and diastolic (conges Marietta Parham PA-C 03/12/2021 I48.21 Permanent atrial fibrillation Ray Greer PA-C 03/12/2021 Z95.810 Presence of automatic (implantab le) cardiac defibrillator Marietta Parham PA-C Plan of Treatment Future Appointment(s):* 10/17/2021 12:30 pm - Marietta Parham PA-C at Main Office * 07/30/2021 12:30 pm - Cardiac PET at Main Office * 10/10/2021 3:00 pm - ECHO at Main Office * 09/10/2021 7:00 am - [facility] at Main Office * 03/13/2022 9:45 am - Marietta Parham PA-C at Main Office 07/17/2021 - Marietta Parham PA-C* I25.10 Atherosclerotic heart disease of [place] coronary artery with* New Xrays:* PET Myocardial Perfusion Multi Study AT [facility], Scheduled: 07/17/21 * Z95.1 Presence of aortocoronary bypass graft * I25.2 Old myocardial infarction * Z95.5 Presence of coronary angioplasty implant and graft * I50.42 Chronic combined systolic (congestive) and diastolic (conges* New Labs: * Basic Metabolic Profile, Scheduled: 07/17/21 * Magnesium Level, Scheduled: 07/17/21 * New Xrays:* US Echocardiogram Transthoracic W Doppler And Color Flow, Scheduled: 07/17/21 * Recommendations:* Follow a low sodium diet and 1500cc/24 hour fluid restriction and do daily weights. Call the office with weight gain of 3 lbs or more. * Z95.810 Presence of automatic (implantable) cardiac defibrillator * I11.0 Hypertensive heart disease with heart failure * I49.01 Ventricular fibrillation * I48.21 Permanent atrial fibrillation * I27.81 Cor pulmonale (chronic)* New Xrays:* US Echocardiogram Transthoracic W Doppler And Color Flow, Scheduled: 07/17/21 * I35.8 Other nonrheumatic aortic valve disorders * I34.0 Nonrheumatic mitral (valve) insufficiency * I44.30 Unspecified atrioventricular block * E78.00 Pure hypercholesterolemia, unspecified * G47.33 Obstructive sleep apnea (adult) (pediatric) * Z71.3 Dietary counseling and surveillance* Recommendations:* Follow a low fat/low cholesterol diet and do as much aerobic exercise as you can tolerate. * All * Follow up:* 3 month CV/CHF check. Functional Status Functional Condition Comment Date Status Independent with all ADL's Activ e Mental Status Description No Information Available Referrals Description No Information Available
--- OUTSIDE RECORDS SUMMARY | 2021-08-07 09:58 | CCD ---
Author Author [facility] Organization [facility] Address Unknown Phone Unavailable Care Team Providers Care Wheel Lacer And Truer Name Role Phone Jigar Can Unavailable PROBLEMS Type Condition ICD9-CM Code [id number] Code Onset Dates Condition S tatus W/U Status Risk SNOMED Code Notes Problem Cardiac defibrillator in place Z95.810 Active confi rmed 172517081 Problem Benign prostatic hyperplasia with lower urinary tract symptoms N40.1 Active confirmed 430279700 Problem Coronary artery disease invo lving [place] coronary artery of [place] heart without angina pectoris I25.10 Active confirmed 155058 1577716 Problem Acute osteomyelitis of left foot M86.172 Active confirmed 1617766021072921 Problem Infection and inflammatory r eaction due to other internal prosthetic devices, implants and grafts, subsequent encounter T85.79XD Active confirmed 96206211 Problem Acquired hypothyroidism E03.9 Active confirmed 742243902 Problem Bacteremia R78.81 Active confirmed 3028993 Problem Infection and inflammatory r eaction due to other cardiac and vascular devices, implants and grafts, subsequent encounter T82.7XXD Active confirmed 422276018 Problem Urethral stricture due to unspecified infection N3 7 Active confirmed 16649507 Problem 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 Active confirmed 51135702 Problem Chronic venous hypertension (idiopathic) with ulcer of right lower extremity I87.311 Active confirmed 740043390914655 Problem Ascending cholangitis K83.09 Active confirmed 90530099 Problem Urethral stricture, unspecified N35.9 Active confi rmed 02856952 Problem Diarrhea of presumed infectious origin R19.7 A ctive confirmed 20578097 Problem Lower urinary tract symptoms (LUTS) R39.9 Acti ve confirmed 854657766 Problem MRSA bacteremia R78.81 Active confirmed 1379 2655961986924 Problem Pseudomonas (aeruginosa) ([facility]) (pseudomallei) as the cause of diseases classified elsewhere B96.5 Active confirmed 01329712 Problem Other disorders of lung J98.4 Active confirmed 16060113 Problem Parul albicans infection B37.9 Active confirmed 62329220 Problem Liver abscess K75.0 Active confirmed 184720 05 ALLERGIES Allergen (clinical drug ingredient) Drug/Non Drug Allergy do cumented on EMR Reaction Allergy Type Onset Date Status amiodarone Amiodarone HCl([facility] Code:[address]-20) Anaphylaxis Drug Al lergy Active ENCOUNTERS from 1955 to 2021-06-21 Encounter Location Date Provider Diagnosis [facility] [place] [address] [facility] [phone] [place] [address] May, Jigar Can IMMUNIZATIONS Vaccine Route Administration Date Status Influenza Pharmacy Given Unknown Jul 06, 2020 Refused SOCIAL HISTORY Tobacco Use: Social History Observation Description Date Details (start date - stop date) Former Smoker Sex Assigned At : Social History Observation Description Sex Assigned At Unknown Education: Question Answer Notes Level of Education: Finished High School Language: Question Answer Notes Languages spoken: Libyan Anabaptist: Question Answer Notes Anabaptist 21 Jainism Sexual Hx: Question Answer Notes Had sex in the last 12 months (vaginal, oral, or anal)? No Alcohol Screening: Question Answer Notes Did you have a drink containing alcohol in the past year? Ye s Points 1 Interpretation Negative How many drinks did you have on a typica l day when you were drinking in the past year? 1 or 2 (0 points) How often did you have a drink containing alcohol in t he past year? Monthly or less (1 point) Tobacco Use: Question Answer Notes Are you a: former smoker How long has it been since you last smoked? > 10 years REASON FOR REFERRAL No Information VITAL SIGNS No information MEDICATIONS Medication SIG (Take, Route, Frequency, Duration) Notes Start Da te End Date Status Pantoprazole Sodium 40 MG 1 tablet Orally Once a day Active Lasix 40 MG 1 tablet Orally Once a day Active Metoprolol Tartrate 50 MG 1 tablet with food Orally Twice a day Active Digoxin 125 MCG 1 tablet Orally Once a day Active Klor-Con 20 MEQ 1 packet with food Orally Once a day for 30 day(s) Active Finasteride 5 MG 1 tablet Orally Once a day Active Aspirin 81 MG 1 tablet Orally Once a day Active Tamsulosin HCl 0.4 MG 1 capsule Orally Once a day Active Pradaxa 150 MG 1 capsule Orally Twice a day Active Ferrous Fumarate 325 (106 Fe) MG Orally Active Dificid 200 MG 1 tablet Orally Twice a day for 10 day(s) 2 4 May, 2021 Active Calcium Citrate + D 315-250 MG-UNIT 1 tablet Orally Twice a day for 30 day(s) Active Midodrine HCl 5 MG TAKE ONE TABLET BY MOUTH AT 8AM NOON AND 4P.M. HOLD IF SYSTOLIC BLOOD PRESSURE IS 140 Oral for 15 Active Levothyroxine Sodium 200 MCG 1 tablet on an empty stom ach in the morning Orally Once a day Active Nitrostat 0.4 MG Sublingual Active Stool Softener 100 MG 1 capsule as needed Orally Once a day for 30 da y(s) Active Loratadine Allergy Relief 10 MG 1 tablet Orally Daily Active Crestor 20 MG 1 tablet Orally Once a day Active Eliquis 5 MG as directed Orally bid Active Fish Oil 1000 MG 1 capsule Orally Once a day Active Flonase Allergy Relief 50 MCG/ACT 1 spray in each nostril Nasall y Once a day Active Cranberry Fruit Concentrate 84701 MG 2 TABS as directed Orally Active Gabapentin 300 MG 1 capsule Orally bid Active NitroQuick 0.4MG Active Clotrimazole-Betameth & Zn Ox 1-0.05 & 20 % as directed Externally Active Vitamin B-12 100 MCG as directed Orally Active Vitamin D-3 5000 UNIT/ML 1 ml under the tongue Sublin gual Once a day for 30 day(s) Active PROCEDURES No Information RESULTS No Results REASON FOR VISIT No Information MEDICAL (GENERAL) HISTORY Type Description Date Medical History pace maker dififbralator Medical History stents in heart / heart by pass 2001 Medical History a-fib Medical History hypertension Medical History cad Medical History bph Medical History acute osteomyelitis of the l eft first MCP with culture positive for MRSA and bacteremia 05/29/18 Medical History abscess left foot status pos t I&D culture positive for strep sanguinous 11/2017 Surgical History heart bypass 2001 Surgical History pacemaker 2015 Surgical History defibrillator AICD 06/03/16 Surgical History BARIATRIC SURGERY Surgical History Cystoscopy 02/25/2017 Surgical History left foot surgery -flesh eating bacteria Surgical History Cystoscopy,Meatotomy 01899292 Surgical History CYSTOSCOPY 62565289 Hospitalization History related to surgery Hospitalization History x 3 days-cellutisis -right leg 04/20 Hospitalization History left foot X 6 days- flesh eating omar teria 12/24/2017 Hospitalization History [facility] left foot osteomyeltitis 04/2019 Hospitalization History o2 level low / pulmonary 02/2019 Hospitalization History "breathing issues" 07/2020 Hospitalization History myopathy 01/2021 Goals Section No Information Health Concerns No Information MEDICAL EQUIPMENT No Information MENTAL STATUS No Information FUNCTIONAL STATUS No Information ASSESSMENTS No Information PLAN OF TREATMENT Medication Medication Name Sig Start Date Stop Date Dificid 200 MG 1 tablet Orally Twice a day for 10 day(s) May Next Appt Details Provider Name:Jigar Marx Juan José, 2020-10-0 5 12:00:00 AM, [address] [facility], , [place], [address], Insurance Providers Payer Name Payer Address Payer Phone Insured Name Patient Relati onship to Insured Coverage Start Date Coverage End Date [facility] [address] [facility] [id number] [phone] JANES CURIEL MEDICARE Part A and B [address] [facility] [phone] JANES CURIEL
--- OUTSIDE RECORDS SUMMARY | 2021-08-07 09:58 | CCD ---
Author Author [facility] Organization [facility] Address Unknown Phone Unavailable Care Team Providers Care Baggage Handler Name Role Phone Jigar Can Unavailable PROBLEMS Type Condition ICD9-CM Code IKK97-DD Code Onset Dates Condition S tatus W/U Status Risk SNOMED Code Notes Problem Acquired hypothyroidism E03.9 Active confirmed 962043260 Problem Acute osteomyelitis of left foot M86.172 Active confirmed 5200395330964682 Problem Infection and inflammatory r eaction due to other cardiac and vascular devices, implants and grafts, subsequent encounter T82.7XXD Active confirmed 177790014 Problem Infection and inflammatory r eaction due to other internal prosthetic devices, implants and grafts, subsequent encounter T85.79XD Active confirmed 00031309 Problem Lower urinary tract symptoms (LUTS) R39.9 Acti ve confirmed 671924054 Problem Bacteremia R78.81 Active confirmed 4402492 Problem Urethral stricture due to unspecified infection N3 7 Active confirmed 39965755 Problem MRSA bacteremia R78.81 Active confirmed 1379 1003955803914 Problem Urethral stricture, unspecified N35.9 Active confi rmed 49867450 Problem Pseudomonas (aeruginosa) ([facility]) (pseudomallei) as the cause of diseases classified elsewhere B96.5 Active confirmed 31964862 Problem Other disorders of lung J98.4 Active confirmed 83565751 Problem Parul albicans infection B37.9 Active confirmed 55586454 Problem Polyp of colon, unspecified part of colon, unspecified typ e K63.5 Active confirmed 80868117 Problem Chronic venous hypertension (idiopathic) with ulcer of right lower extremity I87.311 Active confirmed 429864014469306 Problem Cardiac defibrillator in place Z95.810 Active confi rmed 271808598 Problem Cirrhosis of liver without ascites, unsp ecified hepatic cirrhosis type K74.60 Active confirmed 33559156 Problem 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 Active confirmed 51050905 Problem Benign prostatic hyperplasia with lower urinary tract symptoms N40.1 Active confirmed 759734022 Problem Coronary artery disease invo lving [place] coronary artery of [place] heart without angina pectoris I25.10 Active confirmed 305415 6083044 Problem Liver abscess K75.0 Active confirmed 594932 05 Problem Ascending cholangitis K83.09 Active confirmed 09502504 Problem Diarrhea of presumed infectious origin R19.7 A ctive confirmed 67403579 Problem Clostridioides difficile diarrhea A04.72 Active confirmed 1790760164347 ALLERGIES Allergen (clinical drug ingredient) Drug/Non Drug Allergy do cumented on EMR Reaction Allergy Type Onset Date Status amiodarone Amiodarone HCl([facility] Code:[address]-17) Anaphylaxis Drug Al lergy Active ENCOUNTERS from 1953 to 2021-07-15 Encounter Location Date Provider Diagnosis [facility] [place] [address] [facility] [phone] [place] [address] 17 Jun, 2021 Jigar Can IMMUNIZATIONS Vaccine Route Administration Date Status Influenza Pharmacy Given Unknown Jul 06, 2020 Refused SOCIAL HISTORY Tobacco Use: Social History Observation Description Date Details (start date - stop date) Former Smoker Sex Assigned At : Social History Observation Description Sex Assigned At Unknown Education: Question Answer Notes Level of Education: Finished High School Language: Question Answer Notes Languages spoken: Lithuanian Temple: Question Answer Notes Temple 21 [employer] Sexual Hx: Question Answer Notes Had sex [...] Notes Start Da te End Date Status Gabapentin 300 MG 1 capsule Orally bid Active Metoprolol Tartrate 50 MG 1 tablet with food Orally Twice a day Active Zinplava 1000 MG/40ML 1500 mg Intravenous once daily for 1 days Jun, Active Flonase Allergy Relief 50 MCG/ACT 1 spray in each nostril Nasall y Once a day Active Finasteride 5 MG 1 tablet Orally Once a day Active Levothyroxine Sodium 200 MCG 1 tablet on an empty stom ach in the morning Orally Once a day Active Clotrimazole-Betameth & Zn Ox 1-0.05 & 20 % as directed Externally Active Loratadine Allergy Relief 10 MG 1 tablet Orally Daily Active Dificid 200 MG 1 tablet Orally Twice a day for 10 day(s) 2 4 May, 2021 Active Tamsulosin HCl 0.4 MG 1 capsule Orally Once a day Active Ferrous Fumarate 325 (106 Fe) MG Orally Active Vitamin D-3 5000 UNIT/ML 1 ml under the tongue Sublin gual Once a day for 30 day(s) Active Vitamin B-12 100 MCG as directed Orally Active Fish Oil 1000 MG 1 capsule Orally Once a day Active Digoxin 125 MCG 1 tablet Orally Once a day Active Pantoprazole Sodium 40 MG 1 tablet Orally Once a day Active Stool Softener 100 MG 1 capsule as needed Orally Once a day for 30 da y(s) Active Calcium Citrate + D 315-250 MG-UNIT 1 tablet Orally Twice a day for 30 day(s) Active Lasix 40 MG 1 tablet Orally Once a day Active Aspirin 81 MG 1 tablet Orally Once a day Active Cranberry Fruit Concentrate 57063 MG 2 TABS as directed Orally Active Eliquis 5 MG as directed Orally bid Active NitroQuick 0.4MG Active Pradaxa 150 MG 1 capsule Orally Twice a day Active Crestor 20 MG 1 tablet Orally Once a day Active Klor-Con 20 MEQ 1 packet with food Orally Once a day for 30 day(s) Active Nitrostat 0.4 MG Sublingual Active Midodrine HCl 5 MG TAKE ONE TABLET BY MOUTH AT 8AM NOON AND 4P.M. HOLD IF SYSTOLIC BLOOD PRESSURE IS 140 Oral for 15 Active PROCEDURES No Information RESULTS No Results REASON FOR VISIT Update Demographics - Personal Info MEDICAL (GENERAL) HISTORY Type Description Date Medical [...] strep sanguinous 11/2017 Surgical History heart bypass 2002 Surgical History pacemaker 2015 Surgical History defibrillator AICD 06/03/16 Surgical History BARIATRIC SURGERY Surgical History Cystoscopy 02/25/2017 Surgical History left foot surgery -flesh eating bacteria Surgical History Cystoscopy,Meatotomy 20180720 Surgical History CYSTOSCOPY 20190228 Hospitalization History related to surgery Hospitalization History [...] Medication Name Sig Start Date Stop Date Zinplava 1000 MG/40ML 1500 mg Intravenous once daily for 1 days Jun, Insurance Providers Payer Name Payer Address Payer Phone Insured Name Patient Relati onship to Insured Coverage Start Date Coverage End Date MEDICARE Part A and B [address] [facility] [phone] JANES CURIEL [facility] [address] [facility] [id number] [phone] JANES CURIEL
--- OUTSIDE RECORDS SUMMARY | 2021-08-07 09:58 | CCD | Continuity of Care Document ---
Author Organization Unknown Address Unknown Phone Unavailable Care Team Providers Care Claim Technician Name Role Phone Eliud Mejía M.D. [facility] [phone] Problems Active Problems Provider Date Hypothyroidism Garett Blue M.D. Onset: 3 Type 2 diabetes mellitus Garett Blue M.D. Onset: 05/2013 Hyperlipidemia Garett Blue M.D. Onset: 3 Atrial fibrillation Garett Blue M.D. Onset: 3 Obesity Garett Blue M.D. Onset: 3 Benign essential hypertension Garett lBue M.D. Onset: 09/05/2013 Congestive heart failure Garett Blue M.D. Onset: 05/2013 Coronary arteriosclerosis Garett Blue M.D. Onset: 05/2013 Obstructive sleep apnea syndrome Garett Blue M.D. Ons et: 09/05/2013 Atherosclerotic heart disease of [place] coronary artery with unstable angina pectoris Garett Blue M.D. Onset: 08/01/2015 Essential hypertension Garett Blue M.D. Onset: 2014 Social History Type Date Description Comments Sex Unknown Tobacco Use Start: Unknown End: Unknown Patient is a former smoker Allergies and adverse reactions Active Allergies Criticality Reaction | Severity Comments Date Amiodarone Unable to assess criticality 03/09/2020 Medications Active Medications SIG Qnty Indications Ordering Provide r Date Rosuvastatin Calcium 20mg Tablets Take One Tablet By Mouth Every Day 90tabs Garett Blue M.D . 08/27/2020 Levothyroxine Sodium 25mcg Tablets 1/2 by mouth every day with 200 mcg tab 90tabs Garett Blue M.D. 06/25/2020 Gabapentin 300mg Capsules take one capsule by mouth bid 270caps Mirza, Garett H, M.D. 08/05/20 19 Shingrix 50mcg/0.5ML Suspension Re c as directed 1Garett Hunt M.D. 08/05/20 19 Prevnar 13 Suspension as directed 1dGarett Estevez M.D. 02/01/2019 Proair HFA 108(90Base) mcg/Act Aer osol 2 puffs every 4 hours as needed for sob 1unGarett Goyal M.D. 02/01/2019 Levothyroxine Sodium 200mcg Tablet s Take One Tablet By Mouth Every Day Along With A 25mcg Tablet 90Garett Miner M.D. 08/24/2018 Metoprolol Tartrate 50mg Tablets 1 by mouth twice a day . 270Garett Miner M.D. 12/28 Pantoprazole Sodium 40mg Tablets D R Take One Tablet By Mouth Every Day 90Garett Miner M.D. 01/16/2016 Flonase Allergy Relief 50mcg/Act Suspension 2 sprays each nares every day 3Kale Hunt M.D. 04/09/2015 Finasteride 5mg Tablets Take One Tablet By Mouth Every Day Garett Dexter M.D. 12/30/19 14 Tamsulosin HCL 0.4mg Capsules Take One Capsule By Mouth Every Day Garett Chris M. D. 09/05/2013 Furosemide 40mg Tablets take one tablet by mouth every day Garett Dexter M.D. 09/05/20 13 Clotrimazole/Betamethasone Dipropionate 1-0.05% Cream Apply Two Times A Day as Needed 15Garett Hunt M.D. 09/05/2013 Nitrostat 0.4mg Tablets Sub 1 sl every 5 min for chest pain. may take up to 3 doses at which point also seek medical attention. 25Garett Miner M.D. 09/05/20 13 Multivitamins Capsules 2 po qd 30caps Unknown Cranberry Fruit Concentrate High Potency 25,000mg Capsules 1 po qd Unknown Loratadine 10mg Tablets 1 by mouth every day 90Garett Miner M.D. 00 Vitamin B-12 1000mcg Tablets Sub 1 po qd Unknown Vitamin D 5000Unit Tablets 1 po qd 30tabs Unknown Calcium Citrate +D [id number] Tablets 2 tab daily (630/500) Unknown Fish Oil 1200mg Capsules DR 1 po bid Unknown Ferrous Fumarate 324(106Fe) mg Tab lets 325mg 1 po qd Unknown Aspirin 81mg Tablets DR 1 by mouth every day Unknown Eliquis 5mg Tablets 1 by mouth twice a day Eliud Mejía M.D. Entresto 24-26mg Tablets take 1 tablet by mouth 2 times daily Unknown Prednisone 10mg Tablets 1 p.o . qd Unknown Digoxin 250mcg Tablets 1 p.o. qd Unknown Midodrine HCL 5mg Tablets 1 p.o. as directed if B/P < 100 Unknown Medications Administered in Office Medication SIG Qnty Indications Ordering Provider Date Injection (SC)/(Im) Injection Garett Blue M.D. 12/22/2014 Immunizations CPT Code Status Date Vaccine Lot # [id number] Given 06/25/2020 Influenza Virus Vaccine, Quadrivalent, Slit Virus, Im Use 3Y & Up [id number] 27574 Given 07/20/2019 Influenza Virus Vaccine, Quadrivalent, Slit Virus, Im Use 3Y & Up [id number] 15542 Given 07/03/2017 Influenza Virus Vaccine, Quadrivalent, Slit Virus, Im Use 3Y & Up [id number] 39301 Given 07/25/2016 Influenza Virus Vaccine, Quadrivalent, Slit Virus, Im Use 3Y & Up 34801 Given 12/22/2014 Tdap Tetanus,Dip htheria Toxoids/Acellular Pertussis 7Yrs Or Older [id number] 67352 Given 07/27/2014 Zoster (Shingles) Vaccine 41372 Given 02/22/2010 Pneumococcal Immunization 08357 Refused 07/21/2018 Influenza Virus Vaccine, Quadrivalent, Slit Virus, Im Use 3Y & Up Vital Signs Date Vital Result Comment 03/20/2021 2:11pm BP Systolic 122 mmHg BP Diastolic 58 mmHg Body Temperature 97.2 F Heart Rate 20 /min Respiratory Rate 60 /min Height 75 inches 6'3" [place] Body Weight 196 lb O2 % BldC Oximetry 93 % 12/28/2020 1:21pm BP Systolic 134 mmHg BP Diastolic 78 mmHg Body Temperature 98.4 F Heart Rate 68 /min Respiratory Rate 20 /min Height 75 inches 6'3" [place] Body Weight 196 lb O2 % BldC Oximetry 93 % (On O2 @ 3 LPM NC) Results Test Acquired Date Facility Test Result H/L Range Note Basic Metabolic Profile 07/05/2021 [facility] (Interface) [phone] Glucose, Fasting 194 mg/dL High 70-100 Blood Urea Nitrogen 20 mg/dL High 7-18 Creatinine For GFR 1.03 mg/dL Normal 0.70-1.30 Glomerular Filtration Rate > 60.0 Normal >49 1 Sodium Level 140 mEq/L Normal 136-145 Potassium Serum 4.2 mEq/L Normal 3.5-5.1 Chloride Level 104 mEq/L Normal 98-107 Carbon Dioxide Level 30 mEq/L Normal 21-32 Anion Gap 6 mEq/L Low 8-16 Calcium Level 9.1 mg/dL Normal 8.8-10.2 CBC With Differential 07/05/2021 [facility] (Interface) [phone] White Blood Count 14.8 10 High 4.0-10.0 Red Blood Count 4.55 10 Normal 4.30-6.10 Hemoglobin 12.5 g/dL Low 13.5-17.5 Hematocrit 39.7 % Low 42.0-52.0 Mean Corpuscular Volume 87.3 fl Normal 80.0-96.0 Mean Corpuscular Hemoglobin 27.5 pg Normal 27.0-33.0 Mean Corpuscular HGB Conc 31.5 g/dL Low 32.0-36.5 Red Cell Distribution Width 15.6 % High 11.5-14.5 Platelet Count, Automated 218 10 Normal 150-450 Neutrophils % 77.4 % High 36.0-66.0 Lymph % 13.9 % Low 24.0-44.0 [place] % 6.5 % Normal 2.0-8.0 Eos % 0.8 % Normal 0.0-3.0 Baso % 0.4 % Normal 0.0-1.0 Immature Granulocyte % 1.0 % Normal 0-3.0 Nucleated Red Blood Cell % 0.0 % Normal 0-0 Neutrophils # 11.5 10 High 1.5-8.5 Lymph # 2.1 10 Normal 1.5-5.0 [place] # 1.0 10 High 0.0-0.8 Eos # 0.1 10 Normal 0.0-0.5 Baso # 0.1 10 Normal 0.0-0.2 Basic Metabolic Profile 05/03/2021 [facility] (Interface) [phone] Glucose, Fasting 147 mg/dL High 70-100 Blood [...] mg/dL Normal 8.8-10.2 Laboratory test finding 04/18/2021 [facility] (Interface) [phone] Magnesium Level 2.1 mg/dL Normal 1.8-2.4 Comprehensive Metabolic Profil 04/18/2021 [facility] (Interface) [phone] Glucose, Fasting 169 mg/dL High 70-100 Blood [...] Ratio 0.8 Normal Laboratory test finding 04/18/2021 [facility] (Interface) [phone] C Reactive Protein Quantitativ 5.62 mg/dL High 0 .00-0.30 CBC With Differential 04/18/2021 [facility]) [phone] White Blood Count 14.2 10 High 4.0-10.0 [...] 36.0-66.0 Lymph % 16.7 % Low 24.0-44.0 [place] % 8.5 % High 2.0-8.0 Eos % 4.4 % High 0.0-3.0 Baso % 0.5 % Normal 0.0-1.0 Immature Granulocyte % 0.8 % Normal 0-3.0 Nucleated Red Blood Cell % 0.0 % Normal 0-0 Neutrophils # 9.8 10 High 1.5-8.5 Lymph # 2.4 10 Normal 1.5-5.0 [place] # 1.2 10 High 0.0-0.8 Eos # 0.6 10 High 0.0-0.5 Baso # 0.1 10 Normal 0.0-0.2 Laboratory test finding 04/18/2021 [facility] (Interface) [phone] Erythrocyte Sedimentation Rate 58 mm/hr High 0 -20 Lipid Panel 2021 [facility] [phone] Triglycerides Level 137 mg/dL Normal <150 Cholesterol Level 134 mg/dL Normal <200 HDL Cholesterol 50 mg/dL Normal >40 LDL Cholesterol 57 mg/dL Normal <100 Non-HDL-C 84 mg/dL Normal Cholesterol Risk Ratio 2.680 Normal <5 Complete Blood Count 2021 [facility]) [phone] White Blood Count 10.5 10 High 4.0-10.0 Red Blood Count 3.97 10 Low 4.30-6.10 Hemoglobin 11.4 g/dL Low 13.5-17.5 Hematocrit 37.9 % Low 42.0-52.0 Mean Corpuscular Volume 95.5 fl Normal 80.0-96.0 Mean Corpuscular Hemoglobin 28.7 pg Normal 27.0-33.0 Mean Corpuscular HGB Conc 30.1 g/dL Low 32.0-36.5 Red Cell Distribution Width 15.7 % High 11.5-14.5 Platelet Count, Automated 238 10 Normal 150-450 Nucleated Red Blood Cell % 0.0 % Normal 0-0 Comprehensive Metabolic Profil 2021 [facility]) [phone] Glucose, Fasting 141 mg/dL High 70-100 Blood Urea Nitrogen 23 mg/dL High 7-18 Creatinine For GFR 1.06 mg/dL Normal 0.70-1.30 Glomerular Filtration Rate > 60.0 Normal >49 4 Sodium Level 142 mEq/L Normal 136-145 Potassium Serum 3.0 mEq/L Low 3.5-5.1 Chloride Level 103 mEq/L Normal 98-107 Carbon Dioxide Level 34 mEq/L High 21-32 Anion Gap 5 mEq/L Low 8-16 Calcium Level 9.4 mg/dL Normal 8.8-10.2 Ast/Sgot 73 U/L High 7-37 Alt/SGPT 80 U/L High 12-78 Alkaline Phosphatase 495 U/L High 45-117 Bilirubin,Total 1.6 mg/dL High 0.2-1.0 Total Protein 6.7 GM/DL Normal 6.4-8.2 Albumin 3.2 GM/DL Normal 3.2-5.2 Albumin/Globulin Ratio 0.9 Normal Hemoglobin A1c 2021 [facility] [phone] Hemoglobin A1c 5.0 % Normal 5 Estimated Average Glucose 97 mg/dL Normal 60-110 Laboratory test finding 2021 [facility] (Interface) [phone] Thyroid Stimulating Hormone 1.660 uIU/ML Normal 0. 358-3.740 Laboratory test finding 01/20/2021 [facility] (Interface) [phone] Lactic Acid Sepsis Protocol 1.1 mmol/L Normal 0.4- 2.0 6 PT & Aptt 01/20/2021 [facility] ([facility]) [phone] Prothrombin Time 16.9 seconds High 12.5-14.3 Inr 1.34 Normal 7 Partial Thromboplastin Time 38.3 seconds Normal 24.2-38.5 Blood Culture 01/20/2021 [facility] ([facility]) [phone] Blood Culture GRAM STAIN <SEE NOTE> Normal 8 Influenxa A/B RSV Covid Amp 01/20/2021 [facility] (Interface) [phone] Influenza A Amplification NEGATIVE Normal Negati ve 9 Influenza B Amplification NEGATIVE Normal Negative 10 RSV Amplification NEGATIVE Normal Negative 11 Sars Covid-19 Amplification NEGATIVE Normal Negative 12 Ua W/ Reflex To Culture 01/20/2021 [facility] (Interface) [phone] Appearance, Urine RFX CLEAR Normal Clear Color, Urine RFX DEION Normal Yellow PH,Urine RFX 5.0 units Normal 5.0-9.0 Specific [place] Ur Auto RFX 1.043 Normal 1.002-1.035 Protein, Urine Auto RFX 2+ mg/dL High Negative Glucose, Urine (Ua) Auto RFX NEGATIVE mg/dL Normal Negative Ketone, Urine Auto RFX NEGATIVE mg/dL Normal Negative Urobilinogen, Urine Auto RFX 4.0 mg/dL High 0.0-2.0 Bilirubin, Urine Auto RFX 2+ High Negative Nitrite, Urine Auto RFX NEGATIVE Normal Negative Leukocyte Esterase Ur Auto RFX NEGATIVE Normal Negative Blood, Urine Blood RFX NEGATIVE Normal Negative WBC, Urine Auto RFX 3 /HPF Normal 0-3 RBC, Urine Auto RFX 4 /HPF High 0-3 Bacteria, Urine Auto RFX NEGATIVE Normal Negative Squam Epithelial Cell Ur Aurfx 1 /HPF Normal 0-6 Mucus, Urine RFX SMALL Normal Negative Hyaline Cast, Urine Auto RFX 0 /LPF Normal 0-1 CBC With Differential 01/20/2021 [facility] (Interface) [phone] White Blood Count 16.7 10 High 4.0-10.0 Red Blood Count 5.20 10 Normal 4.30-6.10 Hemoglobin 14.8 g/dL Normal 13.5-17.5 Hematocrit 46.9 % Normal 42.0-52.0 Mean Corpuscular Volume 90.2 fl Normal 80.0-96.0 Mean Corpuscular Hemoglobin 28.5 pg Normal 27.0-33.0 Mean Corpuscular HGB Conc 31.6 g/dL Low 32.0-36.5 Red Cell Distribution Width 15.3 % High 11.5-14.5 Platelet Count, Automated 218 10 Normal 150-450 Neutrophils % 85.8 % High 36.0-66.0 Lymph % 7.3 % Low 24.0-44.0 [place] % 4.2 % Normal 2.0-8.0 Eos % 2.0 % Normal 0.0-3.0 Baso % 0.2 % Normal 0.0-1.0 Immature Granulocyte % 0.5 % Normal 0-3.0 Nucleated Red Blood Cell % 0.0 % Normal 0-0 Neutrophils # 14.3 10 High 1.5-8.5 Lymph # 1.2 10 Low 1.5-5.0 [place] # 0.7 10 Normal 0.0-0.8 Eos # 0.3 10 Normal 0.0-0.5 Baso # 0.0 10 Normal 0.0-0.2 Laboratory test finding 01/20/2021 [facility] (Interface) [phone] Lactic Acid Sepsis Protocol 3.3 mmol/L Critical high 0 .4-2.0 13 Cardiac Marker Panel 01/20/2021 [facility] ( Interface) [phone] CPK Creatine Phosphokinase 73 U/L Normal 39-30 8 CK-MB Value Mass < 1.0 NG/ML Normal <3.6 MB/CK Relative Index 1.37 Normal < Or =4 14 Troponin I < 0.02 NG/ML Normal < 0.10 15 Liver Profile 01/20/2021 [facility] [phone] Ast/Sgot 401 U/L High 7-37 Alt/SGPT 486 U/L High 12-78 Alkaline Phosphatase 421 U/L High 45-117 Bilirubin,Total 7.7 mg/dL High 0.2-1.0 Bilirubin,Direct 4.7 mg/dL High 0.0-0.2 Total Protein 7.5 GM/DL Normal 6.4-8.2 Albumin 3.4 GM/DL Normal 3.2-5.2 Albumin/Globulin Ratio 0.8 Normal Basic Metabolic Profile 01/20/2021 [facility] (Interface) [phone] Glucose, Fasting 158 mg/dL High 70-100 Blood Urea Nitrogen 15 mg/dL Normal 7-18 Creatinine For GFR 1.09 mg/dL Normal 0.70-1.30 Glomerular Filtration Rate > 60.0 Normal >49 1 6 Sodium Level 137 mEq/L Normal 136-145 Potassium Serum 3.9 mEq/L Normal 3.5-5.1 Chloride Level 99 mEq/L Normal 98-107 Carbon Dioxide Level 30 mEq/L Normal 21-32 Anion Gap 8 mEq/L Normal 8-16 Calcium Level 9.1 mg/dL Normal 8.8-10.2 Laboratory test finding 01/20/2021 [facility] (Interface) [phone] NT-Pro BNP 1324 pg/mL High <125 Lipase 47 U/L Low 73-393 Blood Culture 01/20/2021 [facility] ([facility]) [phone] Blood Culture GRAM STAIN <SEE NOTE> Normal 17 1 Units are mL/min/1.73 m2 Chronic Kidney Disease Staging per NKF: Stage I & II GFR >=60 Normal to Mildly Decreased Stage III GFR 30-59 Moderately Decreased Stage IV GFR 15-29 Severely Decreased Stage V GFR <15 Very Little GFR Left ESRD GFR <15 on PROFESSOR OF MANAGEMENT 2 Units are mL/min/1.73 m2 Chronic Kidney Disease Staging per NKF: Stage I & II GFR >=60 Normal to Mildly Decreased Stage III GFR 30-59 Moderately Decreased Stage IV GFR 15-29 Severely Decreased Stage V GFR <15 Very Little GFR Left ESRD GFR <15 on PROFESSOR OF MANAGEMENT 3 Units are mL/min/1.73 m2 Chronic Kidney Disease Staging per NKF: Stage I & II GFR >=60 Normal to Mildly Decreased Stage III GFR 30-59 Moderately Decreased Stage IV GFR 15-29 Severely Decreased Stage V GFR <15 Very Little GFR Left ESRD GFR <15 on PROFESSOR OF MANAGEMENT 4 Units are mL/min/1.73 m2 Chronic Kidney Disease Staging per NKF: Stage I & II GFR >=60 Normal to Mildly Decreased Stage III GFR 30-59 Moderately Decreased Stage IV GFR 15-29 Severely Decreased Stage V GFR <15 Very Little GFR Left ESRD GFR <15 on PROFESSOR OF MANAGEMENT 5 REFERENCE RANGES: <=5.6% NORMAL 5.7-6.4% SUGGESTS IMPAIRED GLUCOSE META BOLISM/PREDIABETIC >= 6.5% ABNORMAL 6 Y/N query for Sepsis Lactate Rule: Y 7 THERAPUTIC HUMAN INR VALUES INDICATIONS NORMAL RANGES PROPHYLAXIS/TREATMENT OF: VENOUS THROMBOSIS 2.0-3.0 PULMONARY EMBOLISM 2.0-3.0 PREVENTION OF SYSTEMIC EMBOLISM FROM: TISSUE HEART VALVES 2.0-3.0 ACUTE MYOCARDIAL INFARCTION 2.0-3.0 VALVULAR HEART DISEASE 2.0-3.0 ATRIAL FIBRILLATION 2.0-3.0 MECHANICAL VALVES(HIGH RISK) 2.5-3.5 RECURRENT MYOCARDIAL INFARCTION 2.5-3.5 8 GRAM STAIN GRAM NEGATIVE RODS DATE POSITIVE DETECTED 01/21/21 GRAM STAIN CALLED BY DB GRAM STAIN CALLED TO JN,RB DATE GRAM STAIN CALLED 01/21/21 TIME GRAM STAIN CALLED 0601 ORGANISM 1: PSEUDOMONAS AERUGINOSA ORGANISM 1: PSEUDOMONAS AERUGINOSA PSEUDOMONAS AERUGINOSA: REACTION GENTAMICIN IV 80mg q8h 2 S CEFAZOLIN IV 1gm q8h >=64 R LEVOFLOXACIN IV 500mg qd 1 S LEVOFLOXACIN PO 250mg qd 1 S LEVOFLOXACIN PO 500mg qd 1 S TOBRAMYCIN IV 80mg q8h <=1 S CEFTAZIDIME IV 1gm q8h 2 S PIPERACILLIN/TAZOBACTAM IV 2.25 gm q6h <=4 S MEROPENEM IV 1 gm q8h 1 S MEROPENEM IV 500 mg q8h 1 S TIGECYCLINE IV 50mg q12h >=8 R CEFEPIME IV 1 gm q12h 4 S CEFEPIME IV 2 gm q12h 4 S 9 Negative results do not prec lude influenza or RSV virus infection and should not be used as the sole basis for treatment or other patient management decisions. 10 Negative results do not prec lude influenza or RSV virus infection and should not be used as the sole basis for treatment or other patient management decisions. 11 Negative results do not prec lude influenza or RSV virus infection and should not be used as the sole basis for treatment or other patient management decisions. 12 A false negative result may occur if a specimen is improperly collected, transported or handled. False negative results may also occur if inadequate numbers of organisms are present in the specimen. As with any molecular test, mutations within the target regions of [employer] SARS-CoV-2 could affect primer and/or probe binding resulting in failure to detect the presence of virus. This test cannot rule out diseases caused by other bacterial or viral pathogens. DISCLAIMER: Testing was performed using the [employer] SARS-CoV-2 test. This test was developed and its performance characteristics determined by [employer]. This test has not been FDA cleared or approved. This test has been authorized by FDA under an Emergency Use Authorization (EUA). This test is only authorized for the duration of time the declaration that circumstances exist justifying the authorization of the emergency use of in vitro diagnostic tests for detection of SARS-CoV-2 virus and/or diagnosis of COVID-19 infection under section 564(b)(1) of the Act, 21 U.S.C. 360bbb-3(b)(1), unless the authorization is terminated or revoked sooner. 13 Y/N query for Sepsis Lactate Rule: Y 14 DIAGNOSIS CRITERIA MMB ng/ml Relative Index (RI) NON-AMI < or = 5 N/A DOMINGUEZ ZONE > 5 < or = 4 AMI > 5 > 4 15 Troponin I Reference Interva l for [employer] [place] LOCI: 99th Percentile= 0.00-0.045 ng/ml Risk Stratification: <= 0.10 ng/ml Decreased Risk for Adverse Clinical Events. 0.10-1.50 ng/ml Increased Risk for Adv erse Clinical Events. Evaluation of additional criterion and/or repeat testing in 2-6 hours is suggested to rule out myocardial damage. >= 1.50 ng/ml Indicative of Myocardial Injury. 16 Units are mL/min/1.73 m2 Chronic Kidney Disease Staging per NKF: Stage I & II GFR >=60 Normal to Mildly Decreased Stage III GFR 30-59 Moderately Decreased Stage IV GFR 15-29 Severely Decreased Stage V GFR <15 Very Little GFR Left ESRD GFR <15 on PROFESSOR OF MANAGEMENT 17 GRAM STAIN GRAM NEGATIVE RODS DATE POSITIVE DETECTED 01/21/21 GRAM STAIN CALLED BY DB GRAM STAIN CALLED TO VITARB DATE GRAM STAIN CALLED 01/21/21 TIME GRAM STAIN CALLED 0603 ORGANISM 1: PSEUDOMONAS AERUGINOSA ORGANISM 1: PSEUDOMONAS AERUGINOSA PSEUDOMONAS AERUGINOSA: REACTION GENTAMICIN IV 80mg q8h 2 S CEFAZOLIN IV 1gm q8h >=64 R LEVOFLOXACIN IV 500mg qd 1 S LEVOFLOXACIN PO 250mg qd 1 S LEVOFLOXACIN PO 500mg qd 1 S TOBRAMYCIN IV 80mg q8h <=1 S CEFTAZIDIME IV 1gm q8h 2 S PIPERACILLIN/TAZOBACTAM IV 2.25 gm q6h <=4 S MEROPENEM IV 1 gm q8h 1 S MEROPENEM IV 500 mg q8h 1 S TIGECYCLINE IV 50mg q12h >=8 R CEFEPIME IV 1 gm q12h 4 S CEFEPIME IV 2 gm q12h 4 S Procedures Date Code Description Status 03/20/2021 90307 Office/Outpatient Established Mo d MDM 30-39 Min Completed Medical Devices Description No Information Available Encounters Type Date Location Provider Dx Diagnosis Office Visit 03/20/2021 2:00p [facility] Garett Blue M. D. I50.9 Heart failure, unspecified I10 Essential (primary) hyperten genia K75.0 Abscess of liver Assessments Date Code Description Provider 03/20/2021 I50.9 Heart failure, unspecified [place] Garett parikh M.D. 03/20/2021 I10 Essential (primary) hypertension Garett Blue M.D. 03/20/2021 K75.0 Abscess of liver Garett Blue M.D. Plan of Treatment No Information Available Functional Status Description No Information Available Mental Status Description No Information Available Referrals Description No Information Available
--- OUTSIDE RECORDS SUMMARY | 2021-08-07 09:58 | CCD ---
Author Author [facility] Organization [facility] Address Unknown Phone Unavailable Care Team Providers Care Cobbler Mckay Name Role Phone Jigar Can Unavailable PROBLEMS Type Condition ICD9-CM Code CIT86-II Code Onset Dates Condition S tatus W/U Status Risk SNOMED Code Notes Problem Acquired hypothyroidism E03.9 Active confirmed 093926088 Problem Acute osteomyelitis of left foot M86.172 Active confirmed 9649553877332204 Problem Infection and inflammatory r eaction due to other cardiac and vascular devices, implants and grafts, subsequent encounter T82.7XXD Active confirmed 296973081 Problem Infection and inflammatory r eaction due to other internal prosthetic devices, implants and grafts, subsequent encounter T85.79XD Active confirmed 30688407 Problem Lower urinary tract symptoms (LUTS) R39.9 Acti ve confirmed 552627153 Problem Bacteremia R78.81 Active confirmed 0903239 Problem Urethral stricture due to unspecified infection N3 7 Active confirmed 70122360 Problem MRSA bacteremia R78.81 Active confirmed 1379 0895790412027 Problem Urethral stricture, unspecified N35.9 Active confi rmed 60898249 Problem Leukocytosis, unspecified type D72.829 Active confi rmed 339258536 Problem Pseudomonas (aeruginosa) (ma llei) (pseudomallei) as the cause of diseases classified elsewhere B96.5 Active confirmed 23864185 Problem Other disorders of lung J98.4 Active confirmed 47112304 Problem Parul albicans infection B37.9 Active confirmed 07581255 Problem Polyp of colon, unspecified part of colon, unspecified typ e K63.5 Active confirmed 64284808 Problem Chronic venous hypertension (idiopathic) with ulcer of right lower extremity I87.311 Active confirmed 238643106655657 Problem Cardiac defibrillator in place Z95.810 Active confi rmed 985812915 Problem Cirrhosis of liver without ascites, unsp ecified hepatic cirrhosis type K74.60 Active confirmed 26503272 Problem 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 Active confirmed 41375801 Problem Benign prostatic hyperplasia with lower urinary tract symptoms N40.1 Active confirmed 140682838 Problem Coronary artery disease invo lving [place] coronary artery of [place] heart without angina pectoris I25.10 Active confirmed 566288 9355706 Problem Liver abscess K75.0 Active confirmed 165614 05 Problem Ascending cholangitis K83.09 Active confirmed 74095012 Problem Diarrhea of presumed infectious origin R19.7 A ctive confirmed 61513339 Problem Clostridioides difficile diarrhea A04.72 Active confirmed 1867597828820 ALLERGIES Allergen (clinical drug ingredient) Drug/Non Drug Allergy do cumented on EMR Reaction Allergy Type Onset Date Status amiodarone Amiodarone HCl([facility] Code:[address]-19) Anaphylaxis Drug Al lergy Active ENCOUNTERS from 1955 to 2021-07-23 Encounter Location Date Provider Diagnosis [id number] [facility] [phone] [place] [address] Jun, Jigar Can IMMUNIZATIONS Vaccine Route Administration Date Status Influenza Pharmacy Given Unknown Jul 06, 2020 Refused SOCIAL HISTORY Tobacco Use: Social History Observation Description Date Details (start date - stop date) Former Smoker Sex Assigned At : Social History Observation Description Sex Assigned At Unknown Education: Question Answer Notes Level of Education: Finished High School Language: Question Answer Notes Languages spoken: Kinyarwanda Roman Catholic: Question Answer Notes Roman Catholic 21 [employer] Sexual Hx: Question Answer Notes Had sex [...] Twice a day for 10 day(s) 2 May, Active Tamsulosin HCl 0.4 MG 1 capsule [...] Once a day Active Cranberry Fruit Concentrate 09078 MG 2 TABS as directed Orally Active [...] Information RESULTS No Results REASON FOR VISIT labs MEDICAL (GENERAL) HISTORY Type Description Date Medical [...] History heart bypass 2001 Surgical History pacemaker 2014 Surgical History defibrillator AICD 06/03/16 Surgical History [...] Insured Coverage Start Date Coverage End Date [facility] [address] [facility] [id number] [employer] MEDIC[employer] Part A and B [address] [facility] [address] JANES CURIEL
--- OUTSIDE RECORDS SUMMARY | 2021-08-07 09:58 | CCD | Continuity of Care Document ---
Author Author Eliud BLUE M.D. Organization Unknown Address [address] [id number] Phone [phone] Care Team Providers Care Research Group Director Name Role Phone Eliud Mejía M.D. AUTM [phone] Problems Active Problems Provider Date Hypothyroidism Garett Blue M.D. Onset: 3 Type 2 diabetes mellitus Garett Blue M.D. Onset: 05/2013 Hyperlipidemia Garett Blue M.D. Onset: 3 Atrial fibrillation Garett Blue M.D. Onset: 3 Obesity Garett Blue M.D. Onset: 3 Benign essential hypertension Garett Blue M.D. Onset: 09/05/2013 Congestive heart failure Garett Blue M.D. Onset: 05/2013 Coronary arteriosclerosis Garett Blue M.D. Onset: 05/2013 Obstructive sleep apnea syndrome Garett Blue M.D. Ons et: 09/05/2013 Atherosclerotic heart disease of [place] coronary artery with unstable angina pectoris Garett [...] mouth every day with 200 mcg tab Garett Dexter M.D. 06/25/2020 Gabapentin 300mg Capsules take one capsule by mouth bid 270Garett Bingham M.D. 08/05/20 19 Shingrix 50mcg/0.5ML Suspension Re c as directed 1Garett Hunt M.D. 08/05/20 19 Prevnar 13 Suspension as directed 1dGarett Estevez M.D. 02/01/2019 Proair HFA 108(90Base) mcg/Act Aer osol 2 puffs every 4 hours as needed for sob 1Garett Hunt M.D. 02/01/2019 Levothyroxine Sodium 200mcg Tablet s Take One Tablet By Mouth Every Day Along With A 25mcg Tablet Garett Dexter M.D. 08/24/2018 Metoprolol Tartrate 50mg Tablets 1 by mouth twice a day . 270Garett Miner M.D. 12/28 Pantoprazole Sodium 40mg Tablets D R Take One Tablet By Mouth Every Day Garett Dexter M.D. 01/16/2016 Flonase Allergy Relief 50mcg/Act Suspension [...] 10mg Tablets 1 by mouth every day 90tabs Garett Blue M.D. 00 Vitamin B-12 1000mcg Tablets Sub 1 po qd Unknown Vitamin D 5000Unit Tablets 1 po qd 30tabs Unknown Calcium Citrate +D [id number]-Gxec Tablets 2 tab daily (630/500) Unknown Fish [...] CPT Code Status Date Vaccine Lot # [id number] Given 06/25/2020 Influenza Virus Vaccine, Quadrivalent, Slit Virus, Im Use 3Y & Up [id number] 05915 Given 07/20/2019 Influenza Virus Vaccine, Quadrivalent, Slit Virus, Im Use 3Y & Up [id number] 50104 Given 07/03/2017 Influenza Virus Vaccine, Quadrivalent, Slit Virus, Im Use 3Y & Up [id number] 17711 Given 07/25/2016 Influenza Virus Vaccine, Quadrivalent, Slit Virus, Im Use 3Y & Up 36384 Given 12/22/2014 Tdap Tetanus,Dip htheria Toxoids/Acellular Pertussis 7Yrs Or Older [id number] 25523 Given 07/27/2014 Zoster (Shingles) Vaccine 63880 Given 02/22/2010 Pneumococcal Immunization [id number] Refused 07/21/2018 Influenza Virus Vaccine, Quadrivalent, Slit Virus, Im Use 3Y & Up Vital Signs Date Vital Result Comment 03/20/2021 2:11pm BP Systolic 122 mmHg BP Diastolic 58 mmHg Body Temperature 97.2 F Heart Rate 20 /min Respiratory Rate 60 /min Height 75 inches 6'3" [place] Body Weight 196 lb O2 % BldC Oximetry 93 % 12/28/2020 1:21pm BP Systolic 134 mmHg BP Diastolic 78 mmHg Body Temperature 98.4 F Heart Rate 68 /min Respiratory Rate 20 /min Height 75 inches 6'3" [place] Body Weight 196 lb O2 % BldC Oximetry 93 % (On O2 @ 3 LPM NC) Results Test Acquired Date Facility Test Result H/L Range Note Laboratory test finding 07/09/2021 [facility] (Interface) [phone] Magnesium Level 2.0 mg/dL Normal 1.8-2.4 Basic Metabolic Profile 07/09/2021 [facility] (Interface) [phone] Glucose, Fasting 176 mg/dL High 70-100 Blood [...] 8-16 Calcium Level 9.2 mg/dL Normal 8.8-10.2 CBC With Differential 07/05/2021 [facility] (Interface) [phone] White Blood Count 14.8 10 High 4.0-10.0 [...] 36.0-66.0 Lymph % 13.9 % Low 24.0-44.0 [place] % 6.5 % Normal 2.0-8.0 Eos % 0.8 % Normal 0.0-3.0 Baso % 0.4 % Normal 0.0-1.0 Immature Granulocyte % 1.0 % Normal 0-3.0 Nucleated Red Blood Cell % 0.0 % Normal 0-0 Neutrophils # 11.5 10 High 1.5-8.5 Lymph # 2.1 10 Normal 1.5-5.0 [place] # 1.0 10 High 0.0-0.8 Eos # 0.1 10 Normal 0.0-0.5 Baso # 0.1 10 Normal 0.0-0.2 Basic Metabolic Profile 07/05/2021 [facility] (Interface) [phone] Glucose, Fasting 194 mg/dL High 70-100 Blood Urea Nitrogen 20 mg/dL High 7-18 Creatinine For GFR 1.03 mg/dL Normal 0.70-1.30 Glomerular Filtration Rate > 60.0 Normal >49 2 Sodium Level 140 mEq/L Normal 136-145 Potassium Serum 4.2 mEq/L Normal 3.5-5.1 Chloride Level 104 mEq/L Normal 98-107 Carbon Dioxide Level 30 mEq/L Normal 21-32 Anion Gap 6 mEq/L Low 8-16 Calcium Level 9.1 mg/dL Normal 8.8-10.2 Basic Metabolic Profile 05/03/2021 [facility] (Interface) [phone] Glucose, Fasting 147 mg/dL High 70-100 Blood Urea Nitrogen 15 mg/dL Normal 7-18 Creatinine For GFR 0.97 mg/dL Normal 0.70-1.30 Glomerular Filtration Rate > 60.0 Normal >49 3 Sodium Level 137 mEq/L Normal 136-145 Potassium Serum 4.4 mEq/L Normal 3.5-5.1 Chloride Level 101 mEq/L Normal 98-107 Carbon Dioxide Level 29 mEq/L Normal 21-32 Anion Gap 7 mEq/L Low 8-16 Calcium Level 9.0 mg/dL Normal 8.8-10.2 Laboratory test finding 04/18/2021 [facility] (Interface) [phone] Magnesium Level 2.1 mg/dL Normal 1.8-2.4 Comprehensive Metabolic Profil 04/18/2021 [facility] ([facility]) [phone] Glucose, Fasting 169 mg/dL High 70-100 Blood Urea Nitrogen 17 mg/dL Normal 7-18 Creatinine For GFR 0.94 mg/dL Normal 0.70-1.30 Glomerular Filtration Rate > 60.0 Normal >49 4 Sodium Level 139 mEq/L Normal 136-145 Potassium [...] Ratio 0.8 Normal Laboratory test finding 04/18/2021 [facility] (Interface) [phone] C Reactive Protein Quantitativ 5.62 mg/dL High 0 .00-0.30 CBC With Differential 04/18/2021 [facility]) [phone] White Blood Count 14.2 10 High 4.0-10.0 [...] 36.0-66.0 Lymph % 16.7 % Low 24.0-44.0 [place] % 8.5 % High 2.0-8.0 Eos % 4.4 % High 0.0-3.0 Baso % 0.5 % Normal 0.0-1.0 Immature Granulocyte % 0.8 % Normal 0-3.0 Nucleated Red Blood Cell % 0.0 % Normal 0-0 Neutrophils # 9.8 10 High 1.5-8.5 Lymph # 2.4 10 Normal 1.5-5.0 [place] # 1.2 10 High 0.0-0.8 Eos # 0.6 10 High 0.0-0.5 Baso # 0.1 10 Normal 0.0-0.2 Laboratory test finding 04/18/2021 [facility] (Interface) [phone] Erythrocyte Sedimentation Rate 58 mm/hr High 0 -20 Comprehensive Metabolic Profil 2021 [facility]) [phone] Glucose, Fasting 141 mg/dL High 70-100 Blood Urea Nitrogen 23 mg/dL High 7-18 Creatinine For GFR 1.06 mg/dL Normal 0.70-1.30 Glomerular Filtration Rate > 60.0 Normal >49 5 Sodium Level 142 mEq/L Normal 136-145 Potassium [...] GM/DL Normal 3.2-5.2 Albumin/Globulin Ratio 0.9 Normal Complete Blood Count 2021 [facility]) [phone] White Blood Count 10.5 10 High 4.0-10.0 [...] Blood Cell % 0.0 % Normal 0-0 Lipid Panel 2021 [facility]) [phone] Triglycerides Level 137 mg/dL Normal <150 Cholesterol Level 134 mg/dL Normal <200 HDL Cholesterol 50 mg/dL Normal >40 LDL Cholesterol 57 mg/dL Normal <100 Non-HDL-C 84 mg/dL Normal Cholesterol Risk Ratio 2.680 Normal <5 Hemoglobin A1c 2021 [facility]) [phone] Hemoglobin A1c 5.0 % Normal 6 Estimated Average Glucose 97 mg/dL Normal 60-110 Laboratory test finding 2021 [facility] (Interface) [phone] Thyroid Stimulating Hormone 1.660 uIU/ML Normal 0. 358-3.740 Laboratory test finding 01/20/2021 [facility] (Interface) [phone] Lactic Acid Sepsis Protocol 1.1 mmol/L Normal 0.4- 2.0 7 PT & Aptt 01/20/2021 [facility]) [phone] Prothrombin Time 16.9 seconds High 12.5-14.3 Inr 1.34 Normal 8 Partial Thromboplastin Time 38.3 seconds Normal 24.2-38.5 Blood Culture 01/20/2021 [facility]) [phone] Blood Culture GRAM STAIN <SEE NOTE> Normal 9 Influenxa A/B RSV Covid Amp 01/20/2021 [facility] (Interface) [phone] Influenza A Amplification NEGATIVE Normal Negati ve 10 Influenza B Amplification NEGATIVE Normal Negative 11 RSV Amplification NEGATIVE Normal Negative 12 Sars Covid-19 Amplification NEGATIVE Normal Negative 13 Ua W/ Reflex To Culture [facility] [phone] Appearance, Urine RFX CLEAR Normal Clear Color, Urine RFX DEION Normal Yellow PH,Urine RFX 5.0 units Normal 5.0-9.0 Specific [place] Ur Auto RFX 1.043 Normal 1.002-1.035 Protein, [...] /LPF Normal 0-1 CBC With Differential 01/20/2021 [facility] (Interface) [phone] White Blood Count 16.7 10 High 4.0-10.0 [...] 36.0-66.0 Lymph % 7.3 % Low 24.0-44.0 [place] % 4.2 % Normal 2.0-8.0 Eos % 2.0 % Normal 0.0-3.0 Baso % 0.2 % Normal 0.0-1.0 Immature Granulocyte % 0.5 % Normal 0-3.0 Nucleated Red Blood Cell % 0.0 % Normal 0-0 Neutrophils # 14.3 10 High 1.5-8.5 Lymph # 1.2 10 Low 1.5-5.0 [place] # 0.7 10 Normal 0.0-0.8 Eos # 0.3 10 Normal 0.0-0.5 Baso # 0.0 10 Normal 0.0-0.2 Laboratory test finding 01/20/2021 [facility] (Interface) [phone] Lactic Acid Sepsis Protocol 3.3 mmol/L Critical high 0 .4-2.0 14 Cardiac Marker Panel 01/20/2021 [facility] ( Interface) [phone] CPK Creatine Phosphokinase 73 U/L Normal 39-30 8 CK-MB Value Mass < 1.0 NG/ML Normal <3.6 MB/CK Relative Index 1.37 Normal < Or =4 15 Troponin I < 0.02 NG/ML Normal < 0.10 16 Liver Profile 01/20/2021 [facility] (I nterface) [phone] Ast/Sgot 401 U/L High 7-37 Alt/SGPT 486 U/L High 12-78 Alkaline Phosphatase 421 U/L High 45-117 Bilirubin,Total 7.7 mg/dL High 0.2-1.0 Bilirubin,Direct 4.7 mg/dL High 0.0-0.2 Total Protein 7.5 GM/DL Normal 6.4-8.2 Albumin 3.4 GM/DL Normal 3.2-5.2 Albumin/Globulin Ratio 0.8 Normal Basic Metabolic Profile 01/20/2021 [facility] (Interface) [phone] Glucose, Fasting 158 mg/dL High 70-100 Blood Urea Nitrogen 15 mg/dL Normal 7-18 Creatinine For GFR 1.09 mg/dL Normal 0.70-1.30 Glomerular Filtration Rate > 60.0 Normal >49 1 7 Sodium Level 137 mEq/L Normal 136-145 Potassium Serum 3.9 mEq/L Normal 3.5-5.1 Chloride Level 99 mEq/L Normal 98-107 Carbon Dioxide Level 30 mEq/L Normal 21-32 Anion Gap 8 mEq/L Normal 8-16 Calcium Level 9.1 mg/dL Normal 8.8-10.2 Laboratory test finding 01/20/2021 [facility] (Interface) [phone] NT-Pro BNP 1324 pg/mL High <125 Lipase 47 U/L Low 73-393 Blood Culture 01/20/2021 [facility] ([facility]) [phone] Blood Culture GRAM STAIN <SEE NOTE> Normal 18 1 Units are mL/min/1.73 m2 Chronic Kidney Disease Staging per NKF: Stage I & II GFR >=60 Normal to Mildly Decreased Stage III GFR 30-59 Moderately Decreased Stage IV GFR 15-29 Severely Decreased Stage V GFR <15 Very Little GFR Left ESRD GFR <15 on FLY WORKER 2 Units are mL/min/1.73 m2 Chronic Kidney Disease Staging per NKF: Stage I & II GFR >=60 Normal to Mildly Decreased Stage III GFR 30-59 Moderately Decreased Stage IV GFR 15-29 Severely Decreased Stage V GFR <15 Very Little GFR Left ESRD GFR <15 on FLY WORKER 3 Units are mL/min/1.73 m2 Chronic Kidney Disease Staging per NKF: Stage I & II GFR >=60 Normal to Mildly Decreased Stage III GFR 30-59 Moderately Decreased Stage IV GFR 15-29 Severely Decreased Stage V GFR <15 Very Little GFR Left ESRD GFR <15 on FLY WORKER 4 Units are mL/min/1.73 m2 Chronic Kidney Disease Staging per NKF: Stage I & II GFR >=60 Normal to Mildly Decreased Stage III GFR 30-59 Moderately Decreased Stage IV GFR 15-29 Severely Decreased Stage V GFR <15 Very Little GFR Left ESRD GFR <15 on FLY WORKER 5 Units are mL/min/1.73 m2 Chronic Kidney Disease Staging per NKF: Stage I & II GFR >=60 Normal to Mildly Decreased Stage III GFR 30-59 Moderately Decreased Stage IV GFR 15-29 Severely Decreased Stage V GFR <15 Very Little GFR Left ESRD GFR <15 on FLY WORKER 6 REFERENCE RANGES: <=5.6% NORMAL 5.7-6.4% SUGGESTS IMPAIRED GLUCOSE META BOLISM/PREDIABETIC >= 6.5% ABNORMAL 7 Y/N query for Sepsis Lactate Rule: Y 8 THERAPUTIC HUMAN INR VALUES INDICATIONS NORMAL RANGES PROPHYLAXIS/TREATMENT OF: VENOUS THROMBOSIS 2.0-3.0 PULMONARY EMBOLISM 2.0-3.0 PREVENTION OF SYSTEMIC EMBOLISM FROM: TISSUE HEART VALVES 2.0-3.0 ACUTE MYOCARDIAL INFARCTION 2.0-3.0 VALVULAR HEART DISEASE 2.0-3.0 ATRIAL FIBRILLATION 2.0-3.0 MECHANICAL VALVES(HIGH RISK) 2.5-3.5 RECURRENT MYOCARDIAL INFARCTION 2.5-3.5 9 GRAM STAIN GRAM NEGATIVE RODS DATE POSITIVE [...] CEFEPIME IV 2 gm q12h 4 S 10 Negative results do not prec lude influenza or RSV virus infection and should not be used as the sole basis for treatment or other patient management decisions. 11 Negative results do not prec lude influenza or RSV virus infection and should not be used as the sole basis for treatment or other patient management decisions. 12 Negative results do not prec lude influenza or RSV virus infection and should not be used as the sole basis for treatment or other patient management decisions. 13 A false negative result may occur if [...] pathogens. DISCLAIMER: Testing was performed using the [employer] SARS-CoV-2 test. This test was developed and its performance characteristics determined by [employer]. This test has not been FDA cleared [...] the authorization is terminated or revoked sooner. 14 Y/N query for Sepsis Lactate Rule: Y 15 DIAGNOSIS CRITERIA MMB ng/ml Relative Index (RI) NON-AMI < or = 5 N/A DOMINGUEZ ZONE > 5 < or = 4 AMI > 5 > 4 16 Troponin I Reference Interva l for [employer] LOCI: 99th Percentile= 0.00-0.045 ng/ml Risk Stratification: <= 0.10 ng/ml Decreased Risk for Adverse Clinical Events. 0.10-1.50 ng/ml Increased Risk for Adv erse Clinical Events. Evaluation of additional criterion and/or repeat testing in 2-6 hours is suggested to rule out myocardial damage. >= 1.50 ng/ml Indicative of Myocardial Injury. 17 Units are mL/min/1.73 m2 Chronic Kidney Disease Staging per NKF: Stage I & II GFR >=60 Normal to Mildly Decreased Stage III GFR 30-59 Moderately Decreased Stage IV GFR 15-29 Severely Decreased Stage V GFR <15 Very Little GFR Left ESRD GFR <15 on FLY WORKER 18 GRAM STAIN GRAM NEGATIVE RODS DATE POSITIVE [...] S Procedures Date Code Description Status 03/20/2021 23015 Office/Outpatient Established Mo d MDM 30-39 Min Completed Medical Devices Description No Information Available Encounters Type Date Location Provider Dx Diagnosis Office Visit 03/20/2021 2:00p [facility] Garett Blue M. D. I50.9 Heart failure, [...]
--- OUTSIDE RECORDS SUMMARY | 2021-08-07 09:59 | CCD | Continuity of Care Document ---
Author Author Pacer/Icd Eliud Saavedra Organization Unknown Address [address] [place] [address], [place] [address] Phone Unavailable Care Team Providers Care Signal Tower Director Name Role Phone Garett Blue MD AUTM [phone] Shawn Buitrago DO AUTM [phone] Bob Murillo MD AUTM [phone] Marietta Bowden PA-C AUTM [phone] Eliud Low DPM AUTM [phone] Mo Hugo MD AUTM [phone] Oleksandr Lawrence MD AUTM [phone] Jigar Can MD AUTM [phone] TacoVivien soto MD AUTM [phone] Problems Active Problems Provider Date Coronary arteriosclerosis Marietta Bowden PA-C Onset: 2010 Old myocardial infarction Marietta Bowden PA-C Onset: 2010 History of coronary artery bypass grafting Stress Nuclear/Re g Treadmill Onset: 08/14/2015 Patient post percutaneous transluminal coronary angiop lasty Marietta Bowden PA-C Onset: 08/20/2015 Ventricular fibrillation Marietta Bowden PA-C Onset: 015 Chronic combined systolic and diastolic heart failure Marietta Bowden PA-C Onset: 08/20/2015 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 Marietta Bowden PA-C Onset: 07/23/2012 Chronic atrial fibrillation Marietta Bowden PA-C Onset: 07/30 Pure hypercholesterolemia AYANA Gomez-C Onset: 2010 Obesity AYANA Gomez-C Onset: 08/20/2015 Atrioventricular block AYANA Gomez-C Onset: 6 Cardiac pacemaker in situ AYANA Gomez-C Onset: 2014 Obstructive sleep apnea syndrome AYANA Gomez-C Onset: 02/18/2012 Aortic valve disorder AYANA Gomez-C Onset: 02/19/2018 Mitral valve disorder AYANA Gomez-C Onset: 02/19/2018 Dietary management surveillance AYANA Gomez-C Onset: 08/24/2018 Chronic pulmonary heart disease AYANA Gomez-C Onset: 10/26/2019 Permanent atrial fibrillation AYANA Gomez-C Onset: Body mass index 40+ - severely obese Ons et: 09/30/2012 Chronic pulmonary heart disease Onset: 0 02/13/2020 Dyspnea Onset: 08/20/2020 Essential hypertension Onset: 10/02/2011 Ex-smoker Onset: 09/30/2012 Hypoxemia Onset: 02/13/2020 Morbid obesity Onset: 10/07/2010 Obstructive sleep apnea syndrome Onset: 10/07/2010 Post-inflammatory pulmonary fibrosis Ons et: 04/18/2020 Social History Type Date Description Comments Sex Unknown Tobacco Use Start: Unknown End: Unknown Former Cigarette Smo ker quit 15 yrs ago, smoked 2 ppd for 30 yrs ETOH Use Does not consume alcohol Tobacco Use Start: Unknown End: Unknown Patient is a former smoker quit 15 yrs ago, smoked 2 ppd for 30 yrs Smoking Status Reviewed: 04/23/21 Patient is a former smoker qu it 15 yrs ago, smoked 2 ppd for 30 yrs Exercise Type/Frequency Does not exercise curren tly Exercise Limitations Joint Pain knees Exercise Limitations Shortness Of Breath Exercise Limitations Other right leg w ound Allergies, Adverse Reactions, Alerts Active Allergies Criticality Reaction | Severity Comments Date Lipitor Unable to assess criticality myalgia and weakness in legs 04/13/2014 Zocor Unable to assess criticality myalgia and weakness in legs 04/05/2018 Amiodarone Unable to assess criticality severe SOB/t oxicity 03/10/2019 Medications Active Medications SIG Qnty Indications Ordering Provide r Date Klor-Con 10 10Meq Tablets ER 2 by mouth twice a day 360tabs I50.42 Eliud Mejía MD 04/23/2021 Fluconazole 200mg Tablets 1 by mouth daily Unknown 04/22/2021 Levofloxacin 500mg Tablets 1 by mouth daily Unknown 04/22/2021 Digoxin 250mcg Tablets 1 by mouth every day 90tabs I48.21 Eliud Mejía MD 03/12/2021 I49.01 Midodrine HCL 5mg Tablets 1 tablet by mouth three times a day, only for SBP < 100 90tabs I50.42 Usman Mejía MD 03/12/2021 Metoprolol Tartrate 50mg Tablets 1 by mouth twice a day I25.10 Unknown 03/11/2021 I50.42 I48.21 Synthroid 25mcg Tablets 1/2 by mouth every day with 200 mcg dose Garett Blue MD 11/27 Oxygen - Home 3 lpm via wv Shawn Buitrago D O 12/19/2020 Ferrous Fumarate 324(106Fe) mg Tab lets 1 by mouth daily Unknown 06/19/2020 Gabapentin 300mg Capsules 1 by mouth two times a day Jigar Can MD 06/19/2020 Clotrimazole/Betamethasone Dipropionate 1-0.05% Cream apply as needed twice a day Laurent Can MD 06/19/2020 Prednisone 10mg Tablets 1 by mouth every day Jigar Can MD 06/19/2020 Eliquis 5mg Tablets 1 by mouth twice a day Unknown 05/25/2020 Synthroid 200mcg Tablets 1 by mouth every day Unknown 08/23/2018 Stool Softener 100mg Capsules 1 by mouth every day Unknown 08/23/2018 Fish Oil 1200mg Capsules DR 1 daily Unknown 08/23/[address] 1 by mouth every day I25.10 Eliud Mejía MD 01/20/2017 Nitrostat 0.4mg Tablets Sub 1 sl every 5min x3 as needed for chest pain 25tabs Eliud Mejía MD 08/19/2016 Pantoprazole Sodium 40mg Tablets D R 1 by mouth every day (to protect pouch while on Plavix) Bob Murillo MD 10/07/2015 Crestor 20mg Tablets 1 by mouth every night at bedtime 90tabs I25.10 Eliud Mejía MD 05/16/2015 E78.0 Loratadine 10mg Tablets 1 by mouth every day Unknown 05/15/2015 Calcium Citrate +D [id number] Tablets 2 by mouth every day Bob [...] P O daily Ricardo Garrido DO 08/09/2007 Vitamin D (Ergocalciferol) 1.25mg (67678 Ut) Capsules 1 tab by mouth every day 30caps Unknown Furosemide 40mg Tablets 1 by mouth every day Unknown History Medications Metoprolol Succinate ER 50mg Tablets ER 24HR 2 times daily Unknown 04/22/2021 - 0 04/22/2021 Klor-Con 10 10Meq Tablets ER 1 by mouth every day I50.42 Unknown 04/22/2021 - Midodrine HCL 5mg Tablets 1 tablet by mouth three times a day, hold for SBP > 140 I50.42 Unkn own 03/11/2021 - 03/12/2021 Immunizations Description No Information Available Vital Signs Date Vital Result Comment 04/23/2021 9:31am Weight 393.00 lb Home Weight 398lb Height 75 inches 6'3" BMI (Body Mass Index) 49.1 kg/m2 Heart Rate 80 /min Regular Respiratory Rate 16 /min BP Systolic Right Arm 108 mmHg sitting, large cuf f BP Diastolic Right Arm 60 mmHg sitting, large cu ff 03/12/2021 9:20am Weight 385.00 lb Home Weight 389lb Height 75 inches 6'3" BMI (Body Mass Index) 48.1 kg/m2 Heart Rate 88 /min Irregular Respiratory Rate 16 /min BP Systolic Right Arm 114 mmHg sitting, large cuf f BP Diastolic Right Arm 60 mmHg sitting, large cu ff Results Test Acquired Date Facility Test Result H/L Range Note Basic Metabolic Profile 05/03/2021 [facility] [phone] Glucose, Fasting 147 mg/dL High 70-100 Blood Urea Nitrogen 15 mg/dL Normal 7-18 Creatinine For GFR 0.97 mg/dL Normal 0.70-1.30 Glomerular Filtration Rate > 60.0 Normal >49 1 Sodium Level 137 mEq/L Normal 136-145 Potassium Serum 4.4 mEq/L Normal 3.5-5.1 Chloride Level 101 mEq/L Normal 98-107 Carbon Dioxide Level 29 mEq/L Normal 21-32 Anion Gap 7 mEq/L Low 8-16 Calcium Level 9.0 mg/dL Normal 8.8-10.2 Laboratory test finding 04/18/2021 [facility] [phone] Magnesium Level 2.1 mg/dL Normal 1.8-2.4 Comprehensive Metabolic Profil 04/18/2021 [facility] [phone] Glucose, Fasting 169 mg/dL High 70-100 Blood Urea Nitrogen 17 mg/dL Normal 7-18 Creatinine For GFR 0.94 mg/dL Normal 0.70-1.30 Glomerular Filtration Rate > 60.0 Normal >49 2 Sodium Level 139 mEq/L Normal 136-145 Potassium [...] Ratio 0.8 Normal Laboratory test finding 04/18/2021 [facility] [phone] C Reactive Protein Quantitativ 5.62 mg/dL High 0 .00-0.30 CBC With Differential 04/18/2021 [facility] [phone] White Blood Count 14.2 10 High 4.0-10.0 [...] 36.0-66.0 Lymph % 16.7 % Low 24.0-44.0 [place] % 8.5 % High 2.0-8.0 Eos % 4.4 % High 0.0-3.0 Baso % 0.5 % Normal 0.0-1.0 Immature Granulocyte % 0.8 % Normal 0-3.0 Nucleated Red Blood Cell % 0.0 % Normal 0-0 Neutrophils # 9.8 10 High 1.5-8.5 Lymph # 2.4 10 Normal 1.5-5.0 [place] # 1.2 10 High 0.0-0.8 Eos # 0.6 10 High 0.0-0.5 Baso # 0.1 10 Normal 0.0-0.2 Laboratory test finding 04/18/2021 [facility] [phone] Erythrocyte Sedimentation Rate 58 mm/hr High 0 -20 CBC without Differential 03/08/2021 [facility] - not inter faced (315)- - White Blood Count 8.3 5.0-10.0 Red Blood Count 3.59 Low 4.00-5.40 Platelets 197 172-450 Hemoglobin 10.4 Hematocrit 34.7 CMP 03/08/2021 [facility] - not interfaced (315)- - Albumin Serum/Plasma 2.9 Alt - SGPT 106 Calcium Ser/Plasma Mass/Vol 8.6 Carbon Dioxide Ser/Plasm 34 Chloride Serum/Plasma 104 Alkaline Phosphatase 553 Potassium 3.6 Protein Total 6.4 Sodium 143 Ast - Sgot 109 BUN - Urea Nitrogen 18 Glucose 186 High 83-110 Creatinine For GFR 1.11 CBC without Differential 02/28/2021 [facility] e (315)- - White Blood Count 10.4 4.3-10.9 Red Blood Count 3.46 Low 4.70-6.20 Platelets 213 130-400 Hemoglobin 10.1 Low 13.0-17.0 Hematocrit 33.3 Low 39.0-50.0 CMP 02/28/2021 [facility] (315)- - Albumin Serum/Plasma 2.8 Alt - SGPT 111 Calcium Ser/Plasma Mass/Vol 9.1 Carbon Dioxide Ser/Plasm 33 Chloride Serum/Plasma 101 Alkaline Phosphatase 636 Potassium 4.2 Protein Total 6.7 Sodium 139 Ast - Sgot 101 BUN - Urea Nitrogen 23 Glucose 109 High 70-100 Creatinine For GFR 1.00 CBC without Differential 12/18/2020 [facility] (315)- - White Blood Count 15.1 High 3.4-10.8 Red Blood Count 5.05 4.14-5.80 Platelets 234 150-450 Hemoglobin 14.3 13.0-17.7 Hematocrit 44.6 37.5-51.0 [facility] 12/18/2020 [facility] (315)- - Albumin Serum/Plasma 4.1 Alt - SGPT 17 Calcium Ser/Plasma Mass/Vol 9.1 Carbon Dioxide Ser/Plasm 23 Chloride Serum/Plasma 100 Alkaline Phosphatase 112 Potassium 3.8 Protein Total 7.2 Sodium 141 Ast - Sgot 20 BUN - Urea Nitrogen 17 Glucose 127 High 65-99 Creatinine For GFR 0.95 Lipid Profile/Cardiac Risk Pro 12/18/2020 [facility] (315)- - Triglycerides 113 Cholesterol 105 100-199 HDL 38 Low >39 LDL Cholesterol 46 Chol/HDL Ratio -- Laboratory test finding 12/18/2020 [facility] (315)- - Hemoglobin A1c 6.0 Thyroid Stimulating Hormone 1.310 1 Units are mL/min/1.73 m2 Chronic Kidney Disease Staging per NKF: Stage I & II GFR >=60 Normal to Mildly Decreased Stage III GFR 30-59 Moderately Decreased Stage IV GFR 15-29 Severely Decreased Stage V GFR <15 Very Little GFR Left ESRD GFR <15 on DECATOR OPERATOR 2 Units are mL/min/1.73 m2 Chronic Kidney Disease Staging per NKF: Stage I & II GFR >=60 Normal to Mildly Decreased Stage III GFR 30-59 Moderately Decreased Stage IV GFR 15-29 Severely Decreased Stage V GFR <15 Very Little GFR Left ESRD GFR <15 on DECATOR OPERATOR Procedures Date Code Description Status 06/11/2021 11677 Remote Pacemaker/Cardio-Defibril lator Data Acquistion Completed 06/11/2021 53696 Remote Interrogate D evice Eval Cardioverter/Defibrillator-90 Days Completed 04/23/2021 01981 Office/Outpatient Established Lo w MDM 20-29 Min Completed 03/12/2021 74784 Office/Outpatient Established Lo w MDM 20-29 Min Completed 03/12/2021 08998 Icd Programming Multi Leads Comp leted 12/20/2020 21883 Office/Outpatient Established Mo d MDM 30-39 Min Completed 12/20/2020 53592 ECG 12-Lead Completed Medical Devices Description No Information Available Encounters Type Date Location Provider Dx Diagnosis Office Visit 04/23/2021 9:30a Main Office Marietta Bowden PA-C I50.4 2 Chronic combined systolic and diastolic hrt fail Office Visit 03/12/2021 9:15a Main Office Marietta Bowden PA-C I50.4 2 Chronic combined systolic and diastolic hrt fail I48.21 Permanent atrial fibrillatio n Z95.810 Presence of automatic (impla ntable) cardiac defibrillator Office Visit 12/20/2020 1:00p Main Office Marietta Bowden PA-C I25.1 0 Athscl heart disease of enterprise coronary artery w/o ang pctrs Z95.1 Presence [...] (pediatric) Z71.3 Dietary counseling and surve illance Assessments Date Code Description Provider 06/11/2021 Z95.810 Presence of automatic (implantab le) cardiac defibrillator [facility] 04/23/2021 I50.42 Chronic combined systolic (conge stive) and diastolic (conges Marietta Londonobritt, [facility] 03/12/2021 I50.42 Chronic combined systolic (conge stive) and diastolic (conges Marietta Guallpalogan, [facility] 03/12/2021 I48.21 Permanent atrial fibrillation Ray Harperbritt, [facility] 03/12/2021 Z95.810 Presence of automatic (implantab le) cardiac defibrillator Marietta Radha Bowden [facility] 12/20/2020 I25.10 Atherosclerotic heart disease of enterprise coronary artery with Marietta Radha Bowden [facility] 12/20/2020 Z95.1 Presence of aortocoronary bypass graft [facility]Bwden [facility] 12/20/2020 I25.2 Old myocardial infarction Marietta Radha Bow[facility] 12/20/2020 Z95.5 Presence of coronary angioplasty implant and graft Marietta Rad[facility] Bow[facility] 12/20/2020 I50.42 Chronic combined systolic (conge stive) and diastolic (conges Marietta Guallpalogan, [facility] 12/20/2020 Z95.810 Presence of automatic (implantab le) cardiac defibrillator [facility]allpalogan [facility] 12/20/2020 I11.0 Hypertensive heart disease with heart failure Marietta Bowden [facility] 12/20/2020 I49.01 Ventricular fibrillation Marietta Radha Bow[facility] 12/20/2020 I48.21 Permanent atrial fibrillation Ka adrian Guallpalogan, [facility] 12/20/2020 I27.81 Cor pulmonale (chronic) Marietta justin [facility] 12/20/2020 I35.8 Other nonrheumatic aortic valve disorders Marietta Bowden PAC 12/20/2020 I34.0 Nonrheumatic mitral (valve) insu fficiency Marietta Bowden, [place]-[facility] 12/20/2020 I44.30 Unspecified atrioventricular blo ck Marietta Bowden PA-C 12/20/2020 E78.00 Pure hypercholesterolemia, unspe cified Marietta Bowden PA-C 12/20/2020 G47.33 Obstructive sleep apnea (adult) (pediatric) Marietta Bowden PA-C 12/20/2020 Z71.3 Dietary counseling and surveilla nce Marietta Bowden PA-C Plan of Treatment Future Appointment(s):* 09/10/2021 7:00 am - [facility] at Main Office * 07/17/2021 9:15 am - Marietta Bowden PA-C at Main Office * 03/13/2022 9:45 am - Marietta Bowden PA-C at Main Office 04/23/2021 - Marietta Bowden PA-C* I50.42 Chronic combined systolic (congestive) and diastolic (conges* New Medication:* Klor-Con 10 10 Meq - 2 by mouth twice a day * New Labs:* Basic Metabolic Profile, Scheduled: 05/06/21 * Basic Metabolic Profile, Scheduled: 07/22/21 * Magnesium Level, Scheduled: 07/22/21 * Recommendations:* 1. Do lab work in 2 weeks and again prior to your 3 month appointment. 2. Follow a low sodium diet and 1500cc/24 hour fluid restriction and do daily weights. Call the office with weight gain of 3 lbs or more. * All * Follow up:* 3 month follow up. Functional Status Functional Condition Comment Date Status Independent with all ADL's Activ e Requires assistance with ambulating uses cane for stability Active Mental Status Description No Information Available Referrals Description No Information Available
--- OUTSIDE RECORDS SUMMARY | 2021-08-07 09:59 | CCD | Continuity of Care Document ---
Author Author Eliud BUITRAGO DO Organization Unknown Address [address] [place] [address] Phone [phone] Care Team Providers Care Engraver Picture Name Role Phone Marietta Bowden AUTM [phone] AUTM Unavailable Garett Blue M.D. AUTM [phone] Problems Active Problems Provider Date Body mass index 40+ - severely obese Rosa Silver A.NGriselda Ons et: 09/30/2012 Ex-smoker Rosa Silver A.N.Rey Onset: 09/30/2012 Essential hypertension Rosa Silver A.N.Rey Onset: 10/02/2011 Obstructive sleep apnea syndrome Rosa Silver A.N.Rey Onset: 10/07/2010 Morbid obesity Rosa Silver A.N.Rey Onset: 10/07/2010 Hypoxemia Shawn Buitrago DO Onset: 02/13/2020 Chronic cor pulmonale Shawn Buitrago DO Onset: 02/13/2020 Adverse effect of other antidysrhythmic drugs, subsequ ent encounter Shawn Buitrago DO Onset: 02/13/2020 Post-inflammatory pulmonary fibrosis Shawn Buitrago DO On set: 04/18/2020 Chronic cor pulmonale Shawn Buitrago DO Onset: 06/05/2021 Dyspnea OLAF Garza Onset: 08/20/2020 Social History Type Date Description Comments Sex Unknown ETOH Use Denies alcohol use Tobacco Use Start: Unknown End: Patient is a former smoker 1 PPD Recreational Drug Use Denies Drug Use Smoking Status Reviewed: 10/01/20 Patient is a former smoker 1 PPD Allergies, Adverse Reactions, Alerts Active Allergies Criticality Reaction | Severity Comments Date Amiodarone Unable to assess criticality 01/03/2020 Inactive Allergies NKDA Unable to assess criticality 10/07/2010 Medications Active Medications SIG Qnty Indications Ordering Provide r Date Oxygen Device [id number] (lcw) Shawn Buitrago, DO 08/21/2020 CPAP Device 17CM LCW Shawn Buitrago, DO 06/12/2020 Prednisone 10mg Tablets Take One Tablet By Mouth Every Day 30tabs Shawn Buitrago, DO 03/21/2020 Gabapentin 300mg Capsules 2 tab by mouth twice a day Unknown Fluticasone Propionate Nasal [place] 24- H our 50mcg/Act Suspension 2 sprays per nostril daily Unknown Midodrine HCL 5mg Tablets Take One Tablet By Mouth AT 8Am Noon And 4P.M. Hold If Systolic Blood Pressure Is 100 Unknown Eliquis 5mg Tablets 2 tabs by mouth every day 60tabs Unknown Vitamin B12 1 tab by mouth every day Unknown Multivitamin Tablets 1 tab by mouth every day Unknown Vitamin D (Ergocalciferol) 1.25mg (11672 Ut) Capsules 1 tab by mouth every day 30caps Unknown Cranberry 1 tab by mouth every day Unknown Stool Softener 100mg Capsules 1 tab by mouth every day 60caps Unknown Fish Oil 1200mg Capsules 1 tab by mouth every day Unknown Loratadine 10mg Tablets 1 by mouth daily 30tabs Unknown Furosemide 40mg Tablets 1 by mouth every day Unknown Finasteride 5mg Tablets 1 by mouth daily Unknown Nitrostat 0.4mg Tablets Sub a s needed Unknown Flomax 0.4mg Capsules 1 by mouth daily Unknown Aspir-Low 81mg Tablets DR 1 by mouth daily Unknown Synthroid 200mcg Tablets 1 by mouth qd Unknown Metoprolol Tartrate 50mg Tablets 1 tab by mouth twice a day Unknown Ferrous Fumarate 324(106Fe) mg Tab lets 1 tab by mouth every day Unknown 0 Digoxin 250mcg Tablets by timothy th daily Unknown Pantoprazole Sodium 40mg Tablets D R 1 by mouth every day Unknown Crestor 20mg Tablets 1 tab by mouth every day Unknown Calcium Citrate + D [id number] Tablets 2 po qd Unknown Immunizations CPT Code Status Date Vaccine Lot # [id number] Given 07/12/2015 Influenza Virus Split 3 Yrs And Above For Intramuscular Use 01876 Given 08/01/2014 Influenza Virus Split 3 Yrs And Above For Intramuscular Use Q2036 Given 09/07/2013 Influenza Vaccine 3 Years Of Age Or Older (Flulaval) 32903 Given 09/07/2013 Pneumococcal PPSV23 Q2036 Given 08/04/2012 Influenza Vaccine 3 Years Of Age Or Older (Flulaval) Q2036 Given 07/09/2011 Influenza Vaccine 3 Years Of Age Or Older (Flulaval) Vital Signs Date Vital Result Comment 06/05/2021 9:26am BP Systolic 130 mmHg BP Diastolic 70 mmHg Heart Rate 80 /min O2 % BldC Oximetry 985 % Height 75 inches 6'3" Weight 386.00 lb BMI (Body Mass Index) 48.2 kg/m2 [place] Body Weight 196 lb Weight 175.090 kg BSA (Body Surface Area) 2.90 m2 03/04/2021 9:41am BP Systolic 100 mmHg BP Diastolic 67 mmHg Heart Rate 111 /min Height 75 inches 6'3" Weight 391.00 lb BMI (Body Mass Index) 48.9 kg/m2 [place] Body Weight 196 lb Weight 177.358 kg BSA (Body Surface Area) 2.92 m2 Results Test Acquired Date Facility Test Result H/L Range Note FVL/[place] 06/05/2021 [facility] SEE IMAGE FVC-Pred 5.37 L FVC-Pre 3.70 L FVC-%Pred-Pre 68 L FVC-LLN 4.30 L Fev1-Pred 3.99 L Fev1-Pre 2.90 L Fev1-%Pred-Pre 72 L Fev1-LLN 3.08 L Fev6-Pred 5.11 L Fev6-Pre 3.67 L Fev6-%Pred-Pre 71 L Fev6-LLN 4.06 L Lxg0yri-Kwvo 74 % Dwj4dil-Zyo 79 % Xwk3gpa-%Pred-Pre 106 % Qxg2gak-NAF 64 % Hpc3dab-Bsfc 95 % Vcy4gdv-Iam 99 % Xit9dvc-%Pred-Pre 104 % FEFMax-Pred 9.72 L/E/sec FEFMax-Pre 7.81 L/E/sec FEFMax-%Pred-Pre 80 L/E/sec FEFMax-LLN 7.05 L/E/sec Kti9274-Qkgy 3.06 L/E/sec Lsn2788-Yvg 2.59 L/E/sec Oyu7832-%Pred-Pre 84 L/E/sec Rks1629-FHX 1.22 L/E/sec ExpTime-Pre 7.88 sec Xjf9dgc9-Wghw 78 % Uoc2mwu2-Vmx 79 % Duo9ucn3-%Pred-Pre 101 % Ddl1hkt8-ZEK 69 % Liver Profile 05/17/2021 [facility] [address] [place] [address] [id number] [phone] Ast/Sgot 99 U/L High 7-37 Alt/SGPT 93 U/L High 12-78 Alkaline Phosphatase 501 U/L High 45-117 Bilirubin,Total 0.9 mg/dL Normal 0.2-1.0 Bilirubin,Direct 0.5 mg/dL High 0.0-0.2 Total Protein 6.9 GM/DL Normal 6.4-8.2 Albumin 3.1 GM/DL Low 3.2-5.2 Albumin/Globulin Ratio 0.8 Normal Liver Profile 03/04/2021 [facility] [address] [place] [address] [phone] Ast/Sgot 134 U/L High 7-37 Alt/SGPT 120 U/L High 12-78 Alkaline Phosphatase 592 U/L High 45-117 Bilirubin,Total 2.5 mg/dL High 0.2-1.0 Bilirubin,Direct 2.0 mg/dL High 0.0-0.2 Total Protein 6.8 GM/DL Normal 6.4-8.2 Albumin 2.8 GM/DL Low 3.2-5.2 Albumin/Globulin Ratio 0.7 Normal Procedures Date Code Description Status 06/05/2021 97573 Office/Outpatient Established Mo d MDM 30-39 Min Completed 06/05/2021 91504 Spirometry Completed 03/04/2021 38388 Office/Outpatient Established Lo w MDM 20-29 Min Completed Medical Devices Description No Information Available Encounters Type Date Location Provider Dx Diagnosis Office Visit 06/05/2021 9:30a [facility] Pulmonary/Thoracic D sandra Buitrago DO J84.178 Oth interstit 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 G47.33 Obstructive sleep apnea (wilfredo lt) (pediatric) R09.02 Hypoxemia I27.81 Cor pulmonale (chronic) Office Visit 03/04/2021 9:30a [facility] Meng noel JR, MD K75.0 Abscess of liver Z48.03 Encounter for change or justine olivia of drains Assessments Date Code Description Provider 06/05/2021 J84.178 Other interstitial p ulmonary diseases with fibrosis in diseases classified elsewhere Shawn Buitrago DO 06/05/2021 G47.33 Obstructive sleep apnea (adult) (pediatric) Shawn Buitrago DO 06/05/2021 R09.02 Hypoxemia Shawn Buitrago DO 06/05/2021 I27.81 Cor pulmonale (chronic) Shawn Buitrago DO 03/04/2021 K75.0 Abscess of liver Meng Cabrera JR, MD 03/04/2021 Z48.03 Encounter for change or removal of drains Meng Cabrera JR, MD Plan of Treatment Future Appointment(s):* 12/04/2021 9:30 am - Shawn Buitrago DO at [facility] Pulmonary/Thoracic 06/05/2021 - Shawn Buitrago DO* J84.178 Other interstitial pulmonary diseases with fibrosis in diseases classified elsewhere * G47.33 Obstructive sleep apnea (adult) (pediatric) * R09.02 Hypoxemia * I27.81 Cor pulmonale (chronic) * * New Labs:* FVL/[place], Scheduled: 12/04/21 * Comments:* ~ Having reviewed the history, physical, and diagnostic findings with the patient, his interstitial lung disease is of unclear etiology; best diagnosis is a relationship to Amiodarone. It was initially steroid- responsive, and has shown signs of regression on subsequent imaging studies. Will continue monitoring with a follow-up spirometry and clinical exam in six months. His oxygenation is fair today. Will perform an ambulatory oxygen measure to determine appropriate flow rate.~ In regard to obstructive sleep apnea, he will continue use of pressure therapy. ~ We discussed the importance of activity for maintenance and conditioning, and weight control.~ Routine follow-up will be scheduled in six months with spirometry flow volume loop testing, earlier if new symptoms intervene. * Follow up:* Follow in six with spirometry/FVL. HIPPA for Dr. Can please. Functional Status Description No Information Available Mental Status Description No Information Available Referrals Description No Information Available
--- OUTSIDE RECORDS SUMMARY | 2021-08-07 09:59 | CCD ---
Author Author [facility] Organization [facility] Address Unknown Phone Unavailable Care Team Providers Care Driver Guide Name Role Phone Jigar Can Unavailable PROBLEMS Type Condition ICD9-CM Code [id number] Code Onset Dates Condition S tatus W/U Status Risk SNOMED Code Notes Problem Benign prostatic hyperplasia with lower urinary tract symptoms N40.1 Active confirmed 465320523 Problem MRSA bacteremia R78.81 Active confirmed 1379 7479915113354 Problem Acute osteomyelitis of left foot M86.172 Active confirmed 1212040031620669 Problem Cardiac defibrillator in place Z95.810 Active confi rmed 245389794 Problem Acquired hypothyroidism E03.9 Active confirmed 639082966 Problem Coronary artery disease invo lving [place] coronary artery of [place] heart without angina pectoris I25.10 Active confirmed 170364 5300311 Problem Infection and inflammatory r eaction due to other cardiac and vascular devices, implants and grafts, subsequent encounter T82.7XXD Active confirmed 315351091 Problem Infection and inflammatory r eaction due to other internal prosthetic devices, implants and grafts, subsequent encounter T85.79XD Active confirmed 24974404 Problem Urethral stricture, unspecified N35.9 Active confi rmed 29871592 Problem Urethral stricture due to unspecified infection N3 7 Active confirmed 67397822 Problem 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 Active confirmed 83337083 Problem Liver abscess K75.0 Active confirmed 036333 05 Problem Lower urinary tract symptoms (LUTS) R39.9 Acti ve confirmed 094719089 Problem Ascending cholangitis K83.09 Active confirmed 46154905 Problem Bacteremia R78.81 Active confirmed 6431954 Problem Chronic venous hypertension (idiopathic) with ulcer of right lower extremity I87.311 Active confirmed 496391960284720 Problem Pseudomonas (aeruginosa) (ma llei) (pseudomallei) as the cause of diseases classified elsewhere B96.5 Active confirmed 73764070 Problem Other disorders of lung J98.4 Active confirmed 57537512 Problem Parul albicans infection B37.9 Active confirmed 80056007 ALLERGIES Allergen (clinical drug ingredient) Drug/Non Drug Allergy do cumented on EMR Reaction Allergy Type Onset Date Status amiodarone Amiodarone HCl([facility] Code:[address]-00) Anaphylaxis Drug Al lergy Active ENCOUNTERS from 1955 to 2021-05-23 Encounter Location Date Provider Diagnosis [facility] [place] [address] [facility] [phone] [place] [id number] Apr, Jigar Can IMMUNIZATIONS Vaccine Route Administration Date Status Influenza Pharmacy Given Unknown Jul 06, 2020 Refused SOCIAL HISTORY Tobacco Use: Social History Observation Description Date Details (start date - stop date) Former Smoker Sex Assigned At : Social History Observation Description Sex Assigned At Unknown Education: Question Answer Notes Level of Education: Finished High School Language: Question Answer Notes Languages spoken: Spanish Anglican: Question Answer Notes Anglican 19 [employer]aritan Sexual Hx: Question Answer Notes Had sex [...] Notes Start Da te End Date Status Eliquis 5 MG as directed Orally bid Active Stool Softener 100 MG 1 capsule as needed Orally Once a day for 30 da y(s) Active Pradaxa 150 MG 1 capsule Orally Twice a day Active Cranberry Fruit Concentrate 97088 MG 2 TABS as directed Orally Active Vitamin B-12 100 MCG as directed Orally Active Flonase Allergy Relief 50 MCG/ACT 1 spray in each nostril Nasall y Once a day Active Gabapentin 300 MG 1 capsule Orally bid Active Pantoprazole Sodium 40 MG 1 tablet Orally Once a day Active Fluconazole 200 MG TAKE ONE TABLET BY MOUTH EVERY DAY for 14 Active Loratadine Allergy Relief 10 MG 1 tablet Orally Daily Active Finasteride 5 MG 1 tablet Orally Once a day Active Digoxin 125 MCG 1 tablet Orally Once a day Active Nitrostat 0.4 MG Sublingual Active Clotrimazole-Betameth & Zn Ox 1-0.05 & 20 % as directed Externally Active Fish Oil 1000 MG 1 capsule Orally Once a day Active Crestor 20 MG 1 tablet Orally Once a day Active Tamsulosin HCl 0.4 MG 1 capsule Orally Once a day Active Ferrous Fumarate 325 (106 Fe) MG Orally Active Midodrine HCl 5 MG TAKE ONE TABLET BY MOUTH AT 8AM NOON AND 4P.M. HOLD IF SYSTOLIC BLOOD PRESSURE IS 140 Oral for 15 Active Lasix 40 MG 1 tablet Orally Once a day Active NitroQuick 0.4MG Active levoFLOXacin 500 MG TAKE ONE TABLET BY MOUTH EVERY DAY for 14 Active Levothyroxine Sodium 200 MCG 1 tablet on an empty stom ach in the morning Orally Once a day Active Vitamin D-3 5000 UNIT/ML 1 ml under the tongue Sublin gual Once a day for 30 day(s) Active Calcium Citrate + D 315-250 MG-UNIT 1 tablet Orally Twice a day for 30 day(s) Active Metoprolol Tartrate 50 MG 1 tablet with food Orally Twice a day Active Aspirin 81 MG 1 tablet Orally Once a day Active PROCEDURES No Information RESULTS No Results [...] Medication Name Sig Start Date Stop Date Metoprolol Tartrate 50 MG 1 tablet with food Orally Twice a day Aspirin 81 MG 1 tablet Orally Once a day Nitrostat 0.4 MG Sublingual Levothyroxine Sodium 200 MCG 1 tablet on an empty stom ach in the morning Orally Once a day levoFLOXacin 500 MG TAKE ONE TABLET BY MOUTH EVERY DAY for 14 Crestor 20 MG 1 tablet Orally Once a day Fluconazole 200 MG TAKE ONE TABLET BY MOUTH EVERY DAY for 14 Pradaxa 150 MG 1 capsule Orally Twice a day Next Appt Details Provider Name:Jigar Can, 2020-09-0 7 12:30:00 AM, [address] [place] [address], [place], [place], [facility], Insurance Providers Payer Name Payer Address Payer Phone Insured Name Patient Relati onship to Insured Coverage Start Date Coverage End Date MEDICARE Part A and B [address] [facility] [phone] JANES CURIEL [facility] [address] [facility] [id number] JANES CURIEL
--- OUTSIDE RECORDS SUMMARY | 2021-08-07 09:59 | CCD ---
Author Author [facility] Organization [facility] Address Unknown Phone Unavailable Care Team Providers Care Anthropology Instructor Name Role Phone Jigar Can Unavailable PROBLEMS Type Condition ICD9-CM Code GAN15-ED Code Onset Dates Condition S tatus W/U Status Risk SNOMED Code Notes Problem Benign prostatic hyperplasia with lower urinary tract symptoms N40.1 Active confirmed 907459183 Problem MRSA bacteremia R78.81 Active confirmed 1379 3522127834812 Problem Acute osteomyelitis of left foot M86.172 Active confirmed 0289491052688674 Problem Cardiac defibrillator in place Z95.810 Active confi rmed 311984199 Problem Acquired hypothyroidism E03.9 Active confirmed 636972789 Problem Coronary artery disease invo lving [place] coronary artery of [place] heart without angina pectoris I25.10 Active confirmed 441295 7082364 Problem Infection and inflammatory r eaction due to other cardiac and vascular devices, implants and grafts, subsequent encounter T82.7XXD Active confirmed 663994199 Problem Infection and inflammatory r eaction due to other internal prosthetic devices, implants and grafts, subsequent encounter T85.79XD Active confirmed 00453678 Problem Urethral stricture, unspecified N35.9 Active confi rmed 66387631 Problem Urethral stricture due to unspecified infection N3 7 Active confirmed 05549459 Problem 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 Active confirmed 49596665 Problem Liver abscess K75.0 Active confirmed 795210 05 Problem Lower urinary tract symptoms (LUTS) R39.9 Acti ve confirmed 830492671 Problem Ascending cholangitis K83.09 Active confirmed 12419821 Problem Bacteremia R78.81 Active confirmed 7623178 Problem Chronic venous hypertension (idiopathic) with ulcer of right lower extremity I87.311 Active confirmed 651480719851277 Problem Pseudomonas (aeruginosa) (ma llei) (pseudomallei) as the cause of diseases classified elsewhere B96.5 Active confirmed 49387549 Problem Other disorders of lung J98.4 Active confirmed 04991082 Problem Parul albicans infection B37.9 Active confirmed 78441089 ALLERGIES Allergen (clinical drug ingredient) Drug/Non Drug Allergy do cumented on EMR Reaction Allergy Type Onset Date Status amiodarone Amiodarone HCl([facility] Code:[address]-16) Anaphylaxis Drug Al lergy Active ENCOUNTERS from 1955 to 2021-05-14 Encounter Location Date Provider Diagnosis [address] [phone] [place] [address] Apr, Jigar Can IMMUNIZATIONS Vaccine Route Administration Date Status Influenza Pharmacy Given Unknown Jul 06, 2020 Refused SOCIAL HISTORY Tobacco Use: Social History Observation Description Date Details (start date - stop date) Former Smoker Sex Assigned At : Social History Observation Description Sex Assigned At Unknown Education: Question Answer Notes Level of Education: Finished High School Language: Question Answer Notes Languages spoken: Tongan Advent: Question Answer Notes Advent 21 Mormonism Sexual Hx: Question Answer Notes Had sex [...] Twice a day Active Cranberry Fruit Concentrate 52589 MG 2 TABS as directed Orally Active [...] Information RESULTS No Results REASON FOR VISIT antibiotic MEDICAL (GENERAL) HISTORY Type Description Date Medical [...] day Next Appt Details Provider Name:Jigar Can, 1-09-0 7 12:30:00 AM, [address] [place] [address], [place], [place], [facility], Insurance Providers Payer Name Payer Address Payer Phone Insured Name Patient Relati onship to Insured Coverage Start Date Coverage End Date MEDICARE Part A and B [address] [facility] [phone] JANES CURIEL [facility] [address] [facility] [id number] JANES CURIEL
--- OUTSIDE RECORDS SUMMARY | 2021-08-07 09:59 | CCD | Continuity of Care Document ---
Author Author Eliud CABRERA MD Organization Unknown Address [address] [place] [address] Phone [phone] Care Team Providers Care Poultry Pinner Name Role Phone Marietta Bowden AUTM [phone] AUTM Unavailable Garett Blue M.D. AUTM [phone] Problems Active Problems Provider Date Body mass index 40+ - severely obese Rosa Silver A.NGriselda Ons et: 09/30/2012 Ex-smoker Rosa Silver A.N.PJusto Onset: 09/30/2012 Essential hypertension Rosa Silver A.N.PJusto Onset: 10/02/2011 Obstructive sleep apnea syndrome Rosa Silver A.N.PJusto Onset: 10/07/2010 Morbid obesity Rosa Silver A.N.PJusto Onset: 10/07/2010 Hypoxemia Shawn Buitrago DO Onset: 02/13/2020 Chronic pulmonary heart disease Shawn Buitrago DO Onset: 02/13/2020 Adverse effect of other antidysrhythmic drugs, subsequ ent encounter Shawn Buitrago DO Onset: 02/13/2020 Post-inflammatory pulmonary fibrosis Shawn Buitrago DO On set: 04/18/2020 Dyspnea OLAF Garza Onset: 08/20/2020 Social History [...] Indications Ordering Provide r Date Oxygen Device [id number] (lcw) Shawn Buitrago, DO 08/21/2020 CPAP Device 17CM LCW Shawn Buitrago, DO 06/12/2020 Prednisone 10mg Tablets Take One Tablet By Mouth Every Day 30tabs Shawn Buitrago, DO 03/21/2020 Levofloxacin 750mg Tablets Take One Tablet By Mouth Once Daily Unknown Fluconazole 100mg Tablets Take Two Tablets By Mouth Once Daily Unknown Midodrine HCL 5mg Tablets Take One Tablet By Mouth AT 8Am Noon And 4P.M. Hold If Systolic Blood Pressure Is 140 Unknown Eliquis 5mg Tablets 2 tabs by mouth every day 60tabs Unknown Vitamin B12 1 tab by mouth every day Unknown Multivitamin Tablets 1 tab by mouth every day Unknown Vitamin D (Ergocalciferol) 1.25mg (25226 Ut) Capsules 1 tab by mouth every [...] by mouth every day Unknown 0 Digoxin 125mcg Tablets by timothy th daily Unknown Pantoprazole Sodium 40mg Tablets D R 1 by mouth every day Unknown Crestor 20mg Tablets 1 tab by mouth every day Unknown Calcium Citrate + D [id number] Tablets 2 po qd Unknown Immunizations CPT Code Status Date Vaccine Lot # [id number] Given 07/12/2015 Influenza Virus Split 3 Yrs And Above For Intramuscular Use 09220 Given 08/01/2014 Influenza Virus Split 3 Yrs And Above For Intramuscular Use Q2036 Given 09/07/2013 Influenza Vaccine 3 Years Of Age Or Older (Flulaval) 04459 Given 09/07/2013 Pneumococcal PPSV23 Q2036 Given 08/04/2012 Influenza Vaccine 3 Years Of Age Or Older (Flulaval) Q2036 Given 07/09/2011 Influenza Vaccine 3 Years Of Age Or Older (Flulaval) Vital Signs Date Vital Result Comment 03/04/2021 9:41am BP Systolic 100 mmHg BP Diastolic 67 mmHg Heart Rate 111 /min Height 75 inches 6'3" Weight 391.00 lb BMI (Body Mass Index) 48.9 kg/m2 [place] Body Weight 196 lb Weight 177.358 kg BSA (Body Surface Area) 2.92 m2 10/01/2020 10:56am BP Systolic 116 mmHg BP Diastolic 70 mmHg Heart Rate 89 /min O2 % BldC Oximetry 94 % on 3.5LlM [place] Body Temperature 96.1 F freind 97.6 Height 75 inches 6'3" Weight 413.00 lb BMI (Body Mass Index) 51.6 kg/m2 [place] Body Weight 196 lb Weight 187.337 kg BSA (Body Surface Area) 2.99 m2 Results Test Acquired Date Facility Test Result H/L Range Note Liver Profile 05/17/2021 [facility] Main Lab [address] [place] [address] [phone] Ast/Sgot 99 U/L High 7-37 Alt/SGPT 93 U/L High 12-78 Alkaline Phosphatase 501 U/L High 45-117 Bilirubin,Total 0.9 mg/dL Normal 0.2-1.0 Bilirubin,Direct 0.5 mg/dL High 0.0-0.2 Total Protein 6.9 GM/DL Normal 6.4-8.2 Albumin 3.1 GM/DL Low 3.2-5.2 Albumin/Globulin Ratio 0.8 Normal Liver Profile 03/04/2021 [facility] Main Lab [address] [place] [address] [phone] Ast/Sgot 134 U/L High 7-37 Alt/SGPT 120 U/L High 12-78 Alkaline Phosphatase 592 U/L High 45-117 Bilirubin,Total 2.5 mg/dL High 0.2-1.0 Bilirubin,Direct 2.0 mg/dL High 0.0-0.2 Total Protein 6.8 GM/DL Normal 6.4-8.2 Albumin 2.8 GM/DL Low 3.2-5.2 Albumin/Globulin Ratio 0.7 Normal Procedures Date Code Description Status 03/04/2021 93749 Office/Outpatient Established Lo w MDM 20-29 Min Completed Medical Devices Description No Information Available Encounters Type Date Location Provider Dx Diagnosis Office Visit 03/04/2021 9:30a [facility] Meng noel JR, MD K75.0 Abscess of liver Z48.03 Encounter for change or justine olivia of drains Assessments Date Code Description Provider 03/04/2021 K75.0 Abscess of liver Meng Cabrera JR, MD 03/04/2021 Z48.03 Encounter for change or removal of drains Meng Cabrera JR, MD Plan of Treatment Future Appointment(s):* 06/05/2021 9:30 am - Shawn Buitrago DO at [facility] Pulmonary/Thoracic 03/04/2021 - Meng Cabrera JR, MD* K75.0 Abscess of liver* Comments:* Patient has a liver abscess that seems to be resolving/improved his white count is been normalized and he seems to be doing symptomatically well his major issue at this point is that he has a PTC that is present and unfortunately because of his gastric bypass history he is an individual where we would like to avoid removal of this catheter and have him not tolerate the removal and need a more urgent/emergent ERCP Rayray I would like to have this coordinated through the bariatric surgeons and see what they would like to proceed with we'll see if we can get him an appointment down with his bariatric surgeon in the next few weeks. Otherwise at this point he continues to make some slow but progressive improvement from a rehabilitation standpoint activity-royal he's making some good movement and he is less short of breath today he is able to move around a lot more than when I saw him in the hospital and thus every day/week he's making some good and strong improvements. * Z48.03 Encounter for change or removal of drains Functional Status Description No Information Available Mental Status Description No Information Available Referrals Description No Information Available
--- OUTSIDE RECORDS SUMMARY | 2021-08-07 09:59 | CCD ---
Author Author [facility] Organization [facility] Address Unknown Phone Unavailable Care Team Providers Care Pump Rebuilder Name Role Phone Jigar Can Unavailable PROBLEMS Type Condition ICD9-CM Code PSU44-JV Code Onset Dates Condition S tatus W/U Status Risk SNOMED Code Notes Problem Cardiac defibrillator in place Z95.810 Active confi rmed 535878570 Problem Benign prostatic hyperplasia with lower urinary tract symptoms N40.1 Active confirmed 305446841 Problem Coronary artery disease invo lving [place] coronary artery of [place] heart without angina pectoris I25.10 Active confirmed 030397 0396242 Problem Acute osteomyelitis of left foot M86.172 Active confirmed 2346466133348767 Problem Infection and inflammatory r eaction due to other internal prosthetic devices, implants and grafts, subsequent encounter T85.79XD Active confirmed 92512824 Problem Acquired hypothyroidism E03.9 Active confirmed 901593506 Problem Bacteremia R78.81 Active confirmed 1557299 Problem Infection and inflammatory r eaction due to other cardiac and vascular devices, implants and grafts, subsequent encounter T82.7XXD Active confirmed 149351542 Problem Urethral stricture due to unspecified infection N3 7 Active confirmed 34551968 Problem 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 Active confirmed 27315915 Problem Chronic venous hypertension (idiopathic) with ulcer of right lower extremity I87.311 Active confirmed 716455590244492 Problem Ascending cholangitis K83.09 Active confirmed 88743814 Problem Urethral stricture, unspecified N35.9 Active confi rmed 40405149 Problem Diarrhea of presumed infectious origin R19.7 A ctive confirmed 40622419 Problem Lower urinary tract symptoms (LUTS) R39.9 Acti ve confirmed 516908808 Problem MRSA bacteremia R78.81 Active confirmed 1379 5935541468033 Problem Pseudomonas (aeruginosa) (ma llei) (pseudomallei) as the cause of diseases classified elsewhere B96.5 Active confirmed 66224059 Problem Other disorders of lung J98.4 Active confirmed 52532119 Problem Parul albicans infection B37.9 Active confirmed 36320150 Problem Liver abscess K75.0 Active confirmed 695204 05 ALLERGIES Allergen (clinical drug ingredient) Drug/Non Drug Allergy do cumented on EMR Reaction Allergy Type Onset Date Status amiodarone Amiodarone HCl([facility] Code:[address]-59) Anaphylaxis Drug Al lergy Active ENCOUNTERS from 1955 to 2021-06-05 Encounter Location Date Provider Diagnosis [facility] [place] [address] [facility] [phone] [place] [address] 07 May, 2021 Jigar Can Liver abscess K75.0 ; Pseudomonas (aeruginosa) (mallei) (pseudomallei) as the cause of diseases classified elsewhere B96.5 ; Parul albicans infection B37.9 ; Ascending cholangitis K83.09 ; Diarrhea of presumed infectious origin R19.7 and Polyp of colon, unspecified part of colon, unspecified type K63.5 IMMUNIZATIONS Vaccine Route Administration Date Status Influenza Pharmacy Given Unknown Jul 06, 2020 Refused SOCIAL HISTORY Tobacco Use: Social History Observation Description Date Details (start date - stop date) Former Smoker Sex Assigned At : Social History Observation Description Sex Assigned At Unknown Education: Question Answer Notes Level of Education: Finished High School Language: Question Answer Notes Languages spoken: Uzbek Mormon: Question Answer Notes Mormon 21 Episcopal Sexual Hx: Question Answer Notes Had sex [...] smoked? > 10 years REASON FOR REFERRAL from 1955 to 2021-06-05 Reason NEEDS ENDOSCOPY AND COLONOSC OPY, CT abdomen concerning for liver cirrhosis hx fatty liver , heavy ETOH till 38 Diagnosis 1 Ascending cholangitis (K83.0 9) Referral Organization [facility] Infectious Disease [place] Referring Provider First Name Jigar Referring Provider Last Name Juan José Referring Provider Specialty Infectious Disease Referred Provider Gaurav Red Referred Provider Specialty Gastroenterology Referral Priority Routine VITAL SIGNS Weight 378 lbs May, Weight-kg 171.46 kg May, Height 75 in May, BMI 47.24 kg/m2 May, Heart Rate 88 /min May, Respiratory Rate 24 /min May, Temperature 98.1 degrees Fahrenheit May, Oximetry 98 on 3L May, Blood pressure systolic 112 mm Hg May, Blood pressure diastolic 60 mm Hg May, MEDICATIONS Medication SIG (Take, Route, Frequency, Duration) Notes Start Da te End Date Status Aspirin 81 MG 1 tablet Orally Once a day Active Tamsulosin HCl 0.4 MG 1 capsule Orally Once a day Active Pantoprazole Sodium 40 MG 1 tablet Orally Once a day Active Lasix 40 MG 1 tablet Orally Once a day Active Pradaxa 150 MG 1 capsule Orally Twice a day Active Ferrous Fumarate 325 (106 Fe) MG Orally Active Klor-Con 20 MEQ 1 packet with food Orally Once a day for 30 day(s) Active Finasteride 5 MG 1 tablet Orally Once a day Active Crestor 20 MG 1 tablet Orally Once a day Active Loratadine Allergy Relief 10 MG 1 tablet Orally Daily Active Calcium Citrate + D 315-250 MG-UNIT 1 tablet Orally Twice a day for 30 day(s) Active Midodrine HCl 5 MG TAKE ONE TABLET BY MOUTH AT 8AM NOON AND 4P.M. HOLD IF SYSTOLIC BLOOD PRESSURE IS 140 Oral for 15 Active Flonase Allergy Relief 50 MCG/ACT 1 spray in each nostril Nasall y Once a day Active Eliquis 5 MG as directed Orally bid Active Stool Softener 100 MG 1 capsule as needed Orally Once a day for 30 da y(s) Active Levothyroxine Sodium 200 MCG 1 tablet on an empty stom ach in the morning Orally Once a day Active Nitrostat 0.4 MG Sublingual Active Digoxin 125 MCG 1 tablet Orally Once a day Active Fish Oil 1000 MG 1 capsule Orally Once a day Active Metoprolol Tartrate 50 MG 1 tablet with food Orally Twice a day Active Cranberry Fruit Concentrate 91022 MG 2 TABS as directed Orally Active [...] Information RESULTS No Results REASON FOR VISIT follow up MEDICAL (GENERAL) HISTORY Type Description Date Medical [...] No Information FUNCTIONAL STATUS No Information ASSESSMENTS Encounter Date Diagnosis Assessment Notes Treatment Notes Treatm ent Clinical Notes May, Liver abscess (ICD-10 - K75.0) Last antibiotic dose was 05/27/2021 levaquin and fluconazole, he has some diarrhea 2-3 times a day likely post antibiotics. CT May, Pseudomonas (aeruginosa) (ma nena) (pseudomallei) as the cause of diseases classified elsewhere (ICD-10 - B96.5) May, Parul albicans infection (ICD-10 - B37.9) May, Ascending cholangitis (ICD-10 - K83.09) CT abdomen / pelvis 05/22/2021 showed liver cirrhosis , patient with history fatty liver May, Diarrhea of presumed infectious origin (ICD-10 - R19.7) May, Polyp of colon, unspecified part of colon, unspecified type (ICD-10 - K63.5) PLAN OF TREATMENT Treatment Notes Assessment Notes Clinical Notes Liver abscess Last antibiotic dose was 05/27/2021 levaquin and fluconazole, he has some diarrhea 2-3 times a day likely post antibiotics. CT Ascending cholangitis CT abdomen / pelvi s 05/22/2021 showed liver cirrhosis , patient with history fatty liver Treatment Notes Test Name Order Date CT ABD & Pelvis w/o FOL by WIT 2021-06-04 Comprehensive Metabolic Profile (CMP) 2021-06-04 ERYTHROCYTE SEDIMENTATION RATE 2021-06-04 CBC with Differential 2021-06-04 C REACTIVE PROTEIN QUANTITATIV (At [facility]) 2021-06-04 GASTROINTESTINAL GI PANEL (GIPANEL) 2021-06-04 Referrals Referral Date Details NEEDS ENDOSCOPY AND COLONOSC OPY, CT abdomen concerning for liver cirrhosis hx fatty liver , heavy ETOH till 38, Gaurav Red Next Appt Details prn Reason: Insurance Providers Payer Name Payer Address Payer Phone Insured Name Patient Relati onship to Insured Coverage Start Date Coverage End Date MEDICARE Part A and B [address] [facility] [id number] [phone] JANES CURIEL [facility] [address] [facility] [id number] [phone] JANES CURIEL
--- OUTSIDE RECORDS SUMMARY | 2021-08-07 09:59 | CCD ---
Author Author [facility] Organization [facility] Address Unknown Phone Unavailable Care Team Providers Care Practice Representative Name Role Phone Jigar Can Unavailable PROBLEMS Type Condition ICD9-CM Code [id number] Code Onset Dates Condition S tatus W/U Status Risk SNOMED Code Notes Problem Cardiac defibrillator in place Z95.810 Active confi rmed 452089795 Problem Benign prostatic hyperplasia with lower urinary tract symptoms N40.1 Active confirmed 168727149 Problem Coronary artery disease invo lving [place] coronary artery of [place] heart without angina pectoris I25.10 Active confirmed 897830 6547515 Problem Acute osteomyelitis of left foot M86.172 Active confirmed 2541389617949423 Problem Infection and inflammatory r eaction due to other internal prosthetic devices, implants and grafts, subsequent encounter T85.79XD Active confirmed 89673736 Problem Acquired hypothyroidism E03.9 Active confirmed 751028452 Problem Bacteremia R78.81 Active confirmed 5693141 Problem Infection and inflammatory r eaction due to other cardiac and vascular devices, implants and grafts, subsequent encounter T82.7XXD Active confirmed 163488531 Problem Urethral stricture due to unspecified infection N3 7 Active confirmed 58197954 Problem 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 Active confirmed 81444047 Problem Chronic venous hypertension (idiopathic) with ulcer of right lower extremity I87.311 Active confirmed 622710296015873 Problem Ascending cholangitis K83.09 Active confirmed 72259703 Problem Urethral stricture, unspecified N35.9 Active confi rmed 15193129 Problem Diarrhea of presumed infectious origin R19.7 A ctive confirmed 50665462 Problem Lower urinary tract symptoms (LUTS) R39.9 Acti ve confirmed 409753439 Problem MRSA bacteremia R78.81 Active confirmed 1379 1516341778682 Problem Pseudomonas (aeruginosa) ([facility]) (pseudomallei) as the cause of diseases classified elsewhere B96.5 Active confirmed 73006079 Problem Other disorders of lung J98.4 Active confirmed 50398886 Problem Parul albicans infection B37.9 Active confirmed 92645793 Problem Liver abscess K75.0 Active confirmed 295937 05 ALLERGIES Allergen (clinical drug ingredient) Drug/Non Drug Allergy do cumented on EMR Reaction Allergy Type Onset Date Status amiodarone Amiodarone HCl([facility] Code:[address]-45) Anaphylaxis Drug Al lergy Active ENCOUNTERS from 1955 to 2021-06-11 Encounter Location Date Provider Diagnosis [facility] [place] [address] [facility] [phone] [place] [address] May, Jigar Can IMMUNIZATIONS Vaccine Route Administration Date Status Influenza Pharmacy Given Unknown Jul 06, 2020 Refused SOCIAL HISTORY Tobacco Use: Social History Observation Description Date Details (start date - stop date) Former Smoker Sex Assigned At : Social History Observation Description Sex Assigned At Unknown Education: Question Answer Notes Level of Education: Finished High School Language: Question Answer Notes Languages spoken: Latvian Mandaen: Question Answer Notes Mandaen 21 Buddhist Sexual Hx: Question Answer Notes Had sex [...] Twice a day Active Cranberry Fruit Concentrate 91221 MG 2 TABS as directed Orally Active [...] Information ASSESSMENTS No Information PLAN OF TREATMENT No Information Insurance Providers Payer Name Payer Address Payer Phone Insured Name Patient Relati onship to Insured Coverage Start Date Coverage End Date [facility] [address] [facility] [id number] JANES CURIEL MEDICARE Part A and B [address] [facility] [address] [phone] JANES CURIEL self
--- OUTSIDE RECORDS SUMMARY | 2021-08-07 09:59 | CCD | Continuity of Care Document ---
Author Author Eliud BUITRAGO DO Organization Unknown Address [address] [place] [address] Phone [phone] Care Team Providers Care Lead Business Analyst Name Role Phone Marietta Bowden AUTM [phone] AUTM Unavailable Garett Blue M.D. AUTM [phone] Problems Active Problems Provider Date Body mass [...] Indications Ordering Provide r Date Oxygen Device [id number] (lcw) Shawn Buitrago, DO 08/21/2020 CPAP Device 17CM LCW Shawn Buitrago, DO 06/12/2020 Prednisone 10mg Tablets Take One Tablet By Mouth Every Day 30tabs Shawn Buitrago, DO 03/21/2020 Gabapentin 300mg Capsules 2 tab by mouth twice a day Unknown Fluticasone Propionate Nasal [place] 24- H our 50mcg/Act Suspension 2 sprays [...] every day Unknown Vitamin D (Ergocalciferol) 1.25mg (92190 Ut) Capsules 1 tab by mouth every [...] every day Unknown Calcium Citrate + D 260-327vs-Cbxg Tablets 2 po qd Unknown Immunizations CPT Code Status Date Vaccine Lot # [id number] Given 07/12/2015 Influenza Virus Split 3 Yrs And Above For Intramuscular Use 23555 Given 08/01/2014 Influenza Virus Split 3 Yrs And Above For Intramuscular Use Q2036 Given 09/07/2013 Influenza Vaccine 3 Years Of Age Or Older (Flulaval) 14642 Given 09/07/2013 Pneumococcal PPSV23 Q2036 Given 08/04/2012 [...] lb BMI (Body Mass Index) 48.2 kg/m2 [employer] Body Weight 196 lb Weight 175.090 kg BSA (Body Surface Area) 2.90 m2 03/04/2021 9:41am BP Systolic 100 mmHg BP Diastolic 67 mmHg Heart Rate 111 /min Height 75 inches 6'3" Weight 391.00 lb BMI (Body Mass Index) 48.9 kg/m2 [employer] Body Weight 196 lb Weight 177.358 kg BSA (Body Surface Area) 2.92 m2 Results Test Acquired Date Facility Test Result H/L Range Note [facility]/[place] 06/05/2021 [facility] SEE IMAGE FVC-Pred 5.37 L FVC-Pre 3.70 L FVC-%Pred-Pre 68 L FVC-LLN 4.30 L Fev1-Pred 3.99 L Fev1-Pre 2.90 L Fev1-%Pred-Pre 72 L Fev1-LLN 3.08 L Fev6-Pred 5.11 L Fev6-Pre 3.67 L Fev6-%Pred-Pre 71 L Fev6-LLN 4.06 L Iro1czj-Ibtr 74 % Ntt4cpb-Kqg 79 % Gtx1dmy-%Pred-Pre 106 % Qft1fao-ZYI 64 % Enx0pxy-Gqea 95 % Jpt4shl-Bgj 99 % Hhm8tlq-%Pred-Pre 104 % FEFMax-Pred 9.72 L/E/sec FEFMax-Pre 7.81 L/E/sec FEFMax-%Pred-Pre 80 L/E/sec FEFMax-LLN 7.05 L/E/sec Bkw2019-Dzhi 3.06 L/E/sec Psy5247-Yvi 2.59 L/E/sec Hfe1089-%Pred-Pre 84 L/E/sec Uez7787-MPS 1.22 L/E/sec ExpTime-Pre 7.88 sec Sky6mpf9-Djkw 78 % Cep5exj9-Xjg 79 % Gjo9ywg1-%Pred-Pre 101 % Zka7dnn8-XLA 69 % Liver Profile 05/17/2021 [facility] [address] [place] [address] [phone] Ast/Sgot 99 U/L High 7-37 Alt/SGPT 93 U/L High 12-78 Alkaline Phosphatase 501 U/L High 45-117 Bilirubin,Total 0.9 mg/dL Normal 0.2-1.0 Bilirubin,Direct 0.5 mg/dL High 0.0-0.2 Total Protein 6.9 GM/DL Normal 6.4-8.2 Albumin 3.1 GM/DL Low 3.2-5.2 Albumin/Globulin Ratio 0.8 Normal Liver Profile 03/04/2021 [facility] [address] [place] [address] [phone] Ast/Sgot 134 U/L High 7-37 Alt/SGPT 120 U/L High 12-78 Alkaline Phosphatase 592 U/L High 45-117 Bilirubin,Total 2.5 mg/dL High 0.2-1.0 Bilirubin,Direct 2.0 mg/dL High 0.0-0.2 Total Protein 6.8 GM/DL Normal 6.4-8.2 Albumin 2.8 GM/DL Low 3.2-5.2 Albumin/Globulin Ratio 0.7 Normal Procedures Date Code Description Status 06/05/2021 93892 Office/Outpatient Established Mo d MDM 30-39 Min Completed 03/04/2021 30612 Office/Outpatient Established Lo w MDM 20-29 Min Completed Medical Devices Description No Information Available Encounters Type Date Location Provider Dx Diagnosis Office Visit 06/05/2021 9:30a [facility] D sandra Buitrago DO J84.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 interstit 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 G47.33 Obstructive sleep apnea (wilfredo lt) (pediatric) R09.02 Hypoxemia I27.81 Cor pulmonale (chronic) Office Visit 03/04/2021 9:30a [facility] Meng noel JR, MD K75.0 Abscess of liver Z48.03 Encounter for change or justine olivia of drains Assessments Date Code Description Provider 06/05/2021 J84.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 interstitial p ulmonary diseases with fibrosis in diseases classified elsewhere Shawn Buitrago DO 06/05/2021 G47.33 Obstructive sleep apnea (adult) (pediatric) Shawn Buitrago DO 06/05/2021 R09.02 Hypoxemia Shawn Buitrago DO 06/05/2021 I27.81 Cor pulmonale (chronic) Shawn Biutrago DO 03/04/2021 K75.0 Abscess of liver Meng Cabrera JR, MD 03/04/2021 Z48.03 Encounter for change or removal of drains Meng Cabrera JR, MD Plan of Treatment Future Appointment(s):* 12/04/2021 9:30 am - Shawn Buitrago DO at [facility] 06/05/2021 - Shawn Buitrago DO* 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 Can please Functional Status Description No Information Available Mental Status Description No Information Available Referrals Description No Information Available
--- OUTSIDE RECORDS SUMMARY | 2021-08-07 09:59 | CCD ---
Author Author [facility] Organization [facility] Address Unknown Phone Unavailable Care Team Providers Care Dramatic Teacher Name Role Phone Jigar Can Unavailable PROBLEMS Type Condition ICD9-CM Code PJA67-BE Code Onset Dates Condition S tatus W/U Status Risk SNOMED Code Notes Problem Benign prostatic hyperplasia with lower urinary tract symptoms N40.1 Active confirmed 680842327 Problem MRSA bacteremia R78.81 Active confirmed 1379 7889999959250 Problem Acute osteomyelitis of left foot M86.172 Active confirmed 4373559113798035 Problem Cardiac defibrillator in place Z95.810 Active confi rmed 544732436 Problem Acquired hypothyroidism E03.9 Active confirmed 589695965 Problem Coronary artery disease invo lving [place] coronary artery of [place] heart without angina pectoris I25.10 Active confirmed 314021 6233462 Problem Infection and inflammatory r eaction due to other cardiac and vascular devices, implants and grafts, subsequent encounter T82.7XXD Active confirmed 259034342 Problem Infection and inflammatory r eaction due to other internal prosthetic devices, implants and grafts, subsequent encounter T85.79XD Active confirmed 45896844 Problem Urethral stricture, unspecified N35.9 Active confi rmed 74383179 Problem Urethral stricture due to unspecified infection N3 7 Active confirmed 66927971 Problem 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 Active confirmed 72282108 Problem Liver abscess K75.0 Active confirmed 334356 05 Problem Lower urinary tract symptoms (LUTS) R39.9 Acti ve confirmed 520458835 Problem Ascending cholangitis K83.09 Active confirmed 82866669 Problem Bacteremia R78.81 Active confirmed 5159397 Problem Chronic venous hypertension (idiopathic) with ulcer of right lower extremity I87.311 Active confirmed 196415589392214 Problem Pseudomonas (aeruginosa) ([facility]) (pseudomallei) as the cause of diseases classified elsewhere B96.5 Active confirmed 46394843 Problem Other disorders of lung J98.4 Active confirmed 39838598 Problem Parul albicans infection B37.9 Active confirmed 62859156 ALLERGIES Allergen (clinical drug ingredient) Drug/Non Drug Allergy do cumented on EMR Reaction Allergy Type Onset Date Status amiodarone Amiodarone HCl([facility] Code:[address]-76) Anaphylaxis Drug Al lergy Active ENCOUNTERS from 1955 to 2021-05-13 Encounter Location Date Provider Diagnosis [facility] [place] [address] [facility] [phone] [place] [id number] Apr, Jigar Can IMMUNIZATIONS Vaccine Route Administration Date Status Influenza Pharmacy Given Unknown Jul 06, 2020 Refused SOCIAL HISTORY Tobacco Use: Social History Observation Description Date Details (start date - stop date) Former Smoker Sex Assigned At : Social History Observation Description Sex Assigned At Unknown Education: Question Answer Notes Level of Education: Finished High School Language: Question Answer Notes Languages spoken: Nepali Druze: Question Answer Notes Druze 21 Confucianist Sexual Hx: Question Answer Notes Had sex [...] Twice a day Active Cranberry Fruit Concentrate 68928 MG 2 TABS as directed Orally Active [...] Provider Name:Jigar Can, 2020-09-0 7 12:30:00 AM, [address] [facility], , [place], [place], [facility], Insurance Providers Payer Name Payer Address Payer Phone Insured Name Patient Relati onship to Insured Coverage Start Date Coverage End Date [facility] [address] [facility] [id number] [phone] JANES CURIEL MEDICARE Part A and B [address] [facility] [address] JANES CURIEL
--- OUTSIDE RECORDS SUMMARY | 2021-08-07 09:59 | CCD ---
Author Author [facility] Organization [facility] Address Unknown Phone Unavailable Care Team Providers Care Chief Passenger Ship Steward/Stewardess Name Role Phone Jigar Can Unavailable PROBLEMS Type Condition ICD9-CM Code [id number] Code Onset Dates Condition S tatus W/U Status Risk SNOMED Code Notes Problem Benign prostatic hyperplasia with lower urinary tract symptoms N40.1 Active confirmed 239538306 Problem MRSA bacteremia R78.81 Active confirmed 1379 9704794523681 Problem Acute osteomyelitis of left foot M86.172 Active confirmed 5719185324597751 Problem Cardiac defibrillator in place Z95.810 Active confi rmed 027569136 Problem Acquired hypothyroidism E03.9 Active confirmed 091095727 Problem Coronary artery disease invo lving [place] coronary artery of [place] heart without angina pectoris I25.10 Active confirmed 456159 4364304 Problem Infection and inflammatory r eaction due to other cardiac and vascular devices, implants and grafts, subsequent encounter T82.7XXD Active confirmed 314616382 Problem Infection and inflammatory r eaction due to other internal prosthetic devices, implants and grafts, subsequent encounter T85.79XD Active confirmed 71774671 Problem Urethral stricture, unspecified N35.9 Active confi rmed 23353888 Problem Urethral stricture due to unspecified infection N3 7 Active confirmed 24908701 Problem 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 Active confirmed 71627007 Problem Liver abscess K75.0 Active confirmed 394734 05 Problem Lower urinary tract symptoms (LUTS) R39.9 Acti ve confirmed 813436950 Problem Ascending cholangitis K83.09 Active confirmed 87286401 Problem Bacteremia R78.81 Active confirmed 4359710 Problem Chronic venous hypertension (idiopathic) with ulcer of right lower extremity I87.311 Active confirmed 019596851922550 Problem Pseudomonas (aeruginosa) ([facility]) (pseudomallei) as the cause of diseases classified elsewhere B96.5 Active confirmed 80754957 Problem Other disorders of lung J98.4 Active confirmed 63466344 Problem Jennifer albicans infection B37.9 Active confirmed 09420010 ALLERGIES Allergen (clinical drug ingredient) Drug/Non Drug Allergy do cumented on EMR Reaction Allergy Type Onset Date Status amiodarone Amiodarone HCl([facility] Code:[address]-88) Anaphylaxis Drug Al lergy Active ENCOUNTERS from 1955 to 2021-05-14 Encounter Location Date Provider Diagnosis [facility] Infect[facility] [place] [address] [facility] [phone] [place] [address] Mar, Jigar Can Ascending cholangiti s K83.09 ; Jennifer albicans infection B37.9 ; Pseudomonas (aeruginosa) (m[facility]) (pseudomallei) as the cause of diseases classified elsewhere B96.5 ; Liver abscess K75.0 ; Coronary artery disease involving [place] coronary artery of [place] heart without angina pectoris I25.10 ; Cardiac defibrillator in place Z95.810 ; Acquired hypothyroidism E03.9 ; Adverse effect of other antidysrhy thmic drugs, initial encounter T46.2X5A and Other disorders of lung J98.4 IMMUNIZATIONS Vaccine Route Administration Date Status Influenza Pharmacy Given Unknown Jul 06, 2020 Refused SOCIAL HISTORY Tobacco Use: Social History Observation Description Date Details (start date - stop date) Former Smoker Sex Assigned At : Social History Observation Description Sex Assigned At Unknown Education: Question Answer Notes Level of Education: Finished High School Language: Question Answer Notes Languages spoken: Yemeni Episcopalian: Question Answer Notes Episcopalian 21 Rastafarian Sexual Hx: Question Answer Notes Had sex [...] REASON FOR REFERRAL No Information VITAL SIGNS Weight 386 lbs Mar, Height 75 in Mar, BMI 48.24 kg/m2 Mar, Heart Rate 87 /min Mar, Respiratory Rate 22 /min Mar, Temperature 95.6 degrees Fahrenheit Mar, Oximetry 96on 3 L Mar, Blood pressure systolic 106 mm Hg Mar, Blood pressure diastolic 60 mm Hg Mar, MEDICATIONS Medication SIG (Take, Route, Frequency, Duration) Notes Start Da te End Date Status Eliquis 5 MG as directed Orally bid Active Stool Softener 100 MG 1 capsule as needed Orally Once a day for 30 da y(s) Active Pradaxa 150 MG 1 capsule Orally Twice a day Active Cranberry Fruit Concentrate 74650 MG 2 TABS as directed Orally Active [...] Notes Treatment Notes Treatm ent Clinical Notes Mar, Ascending cholangitis (ICD-10 - K83.09) CT abdomen pelvis was done on 02/13/2021, common bile duct drain was clamped on 02/15/2021. Patient is scheduled for liver ultrasound on 03/21. He is still waiting for an appointment to see Dr. Murillo to discuss ERCP and removal of common bile duct drain. He was treated with IV meropenem and fluconazole for 4 weeks followed by p.o. levofloxacin and fluconazole for 2 weeks that were discontinued on 03/12. He had positive blood cultures for Pseudomonas aeruginosa on 01/20/2021 and common bile duct culture for Jennifer albicans. Mar, Jennifer albicans infection (ICD-10 - B37.9) Liver abscess Cx with jennifer Mar, Pseudomonas (aeruginosa) (ma l[facility]) (pseudomallei) as the cause of diseases classified elsewhere (ICD-10 - B96.5) Had pseudomonas bacteremia Mar, Liver abscess (ICD-10 - K75.0) He will be scheduled for follow-up liver ultrasound on 03/21/2021 FU liver abscesses. He will follow-up with Dr. Murillo regarding removal of CBD drain. He finished levofloxacin and fluconazole on 03/12/2021 ESR was 67 down to 53 AST= 97 at baseline peaked at 131 currently 74 ALT=92 baseline peaked at 125 currently 81 bili=6.8 currently bili 1.6 Patient needs cholangiogram/ERCP he needs to follow-up with ? hepatology and Dr. Murillo for removal of common bile duct drain . CAse was DW Dr Cabrera Mar, Coronary artery disease invo lving [place] coronary artery of [place] heart without angina pectoris (ICD-10 - I25.10) He needs to follow-up with cardiology as many of his medications were discontinued including entresto to hypotension and patient was started on Midodrine Mar, Cardiac defibrillator in place (ICD-10 - Z95.810 ) Mar, Acquired hypothyroidism (ICD-10 - E03.9) Mar, Adverse effect of other anti dysrhythmic drugs, initial encounter (ICD-10 - T46.2X5A) Mar, Other disorders of lung (ICD-10 - J98.4) Has been on chronic O2 since 07/2020 PLAN OF TREATMENT Medication Medication Name Sig [...] MG 1 capsule Orally Twice a day Treatment Notes Assessment Notes Clinical Notes Ascending cholangitis CT abdomen pelvis was done on 02/13/2021, common bile duct drain was clamped on 02/15/2021. Patient is scheduled for liver ultrasound on 03/21. He is still waiting for an appointment to see Dr. Murillo to discuss ERCP and removal of common bile duct drain. He was treated with IV meropenem and fluconazole for 4 weeks followed by p.o. levofloxacin and fluconazole for 2 weeks that were discontinued on 03/12.He had positive blood cultures for Pseudomonas aeruginosa on 01/20/2021 and common bile duct culture for Jennifer albicans. Jennifer albicans infection Liver abscess Cx with jennifer Pseudomonas (aeruginosa) (mallei) (pseud omallei) as the cause of diseases classified elsewhere Had pseudomonas bacteremia Liver abscess He will be scheduled for follow-up liver ultrasound on 03/21/2021 FU liver abscesses. He will follow-up with Dr. Murillo regarding removal of CBD drain. He finished levofloxacin and fluconazole on 03/12/2021SR was 67 down to 53AST= 97 at baseline peaked at 131 currently 74ALT=92 baseline peaked at 125 currently 81bili=6.8 currently bili 1.6Patient needs cholangiogram/ERCP he needs to follow-up with ? hepatology and Dr. Murillo for removal of common bile duct drain . 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
--- OUTSIDE RECORDS SUMMARY | 2021-08-07 10:14 | CCD ---
Author Author [facility] Organization [facility] Address Unknown Phone Unavailable Care Team Providers Care Transportation Project Manager Name Role Phone Nadeem, L Rosa TYPE COPY EXAMINER Unavailable Unavailable Nadeem, L Rosa TYPE COPY EXAMINER Unavailable Unavailable Nadeem, L Rosa TYPE COPY EXAMINER Unavailable Unavailable Nadeem, L Rosa TYPE COPY EXAMINER Unavailable Unavailable Nadeem, L Rosa TYPE COPY EXAMINER Unavailable Unavailable Nadeem, L Rosa TYPE COPY EXAMINER Unavailable Unavailable Nadeem, L Rosa TYPE COPY EXAMINER Unavailable Unavailable Nadeem, L Rosa TYPE COPY EXAMINER Unavailable Unavailable Nadeem, L Rosa TYPE COPY EXAMINER Unavailable Unavailable Nadeem, L Rosa TYPE COPY EXAMINER Unavailable Unavailable Nadeem, L Rosa TYPE COPY EXAMINER Unavailable Unavailable Nadeem, L Rosa TYPE COPY EXAMINER Unavailable Unavailable Nadeem, L Rosa TYPE COPY EXAMINER Unavailable Unavailable Nadeem, L Rosa TYPE COPY EXAMINER Unavailable Unavailable Nadeem, L Rosa TYPE COPY EXAMINER Unavailable Unavailable Nadeem, L Rosa TYPE COPY EXAMINER Unavailable Unavailable Nadeem, L Rosa TYPE COPY EXAMINER Unavailable Unavailable Nadeem, L Rosa TYPE COPY EXAMINER Unavailable Unavailable Nadeem, L Rosa TYPE COPY EXAMINER Unavailable Unavailable Nadeem, L Rosa TYPE COPY EXAMINER Unavailable Unavailable Nadeem, L Rosa TYPE COPY EXAMINER Unavailable Unavailable Nadeem, L Rosa TYPE COPY EXAMINER Unavailable Unavailable Nadeem, L Rosa TYPE COPY EXAMINER Unavailable Unavailable Nadeem, L Rosa TYPE COPY EXAMINER Unavailable Unavailable Nadeem, L Rosa TYPE COPY EXAMINER Unavailable Unavailable Fabian SMITH MD Unavailable Unavailable Fabian SMITH MD Unavailable Unavailable Fabian SMITH MD Unavailable Unavailable Fabian SMITH MD Unavailable Unavailable Fabian SMITH MD Unavailable Unavailable Fabian SMITH MD Unavailable Unavailable Fabian SMITH MD Unavailable Unavailable Fabian SMITH MD Unavailable Unavailable Fabian SMITH MD Unavailable Unavailable Fabian SMITH MD Unavailable Unavailable Fabian SMITH MD Unavailable Unavailable Fabian SMITH MD Unavailable Unavailable Fabian SMITH MD Unavailable Unavailable Fabian SMITH MD Unavailable Unavailable Fabian SMITH MD Unavailable Unavailable Fabian SMITH MD Unavailable Unavailable Fabian SMITH MD Unavailable Unavailable Fabian SMITH MD Unavailable Unavailable Fabian SMITH MD Unavailable Unavailable Fabian SMITH MD Unavailable Unavailable MANTA, N XIMENA MD Unavailable Unavailable MANTA, N XIMENA MD Unavailable Unavailable MANTA, N XIMENA MD Unavailable Unavailable MANTA, N XIMENA MD Unavailable Unavailable MANTA, N XIMENA MD Unavailable Unavailable MANTA, N XIMENA MD Unavailable Unavailable MANTA, N XIMENA MD Unavailable Unavailable MANTA, N XIMENA MD Unavailable Unavailable MANTA, N XIMENA MD Unavailable Unavailable MANTA, N XIMENA MD Unavailable Unavailable MANTA, N XIMENA MD Unavailable Unavailable MANTA, N XIMENA MD Unavailable Unavailable MANTA, N XIMENA MD Unavailable Unavailable MANTA, N XIMENA MD Unavailable Unavailable MANTA, N XIMENA MD Unavailable Unavailable MANTA, N XIMENA MD Unavailable Unavailable MANTA, N XIMENA MD Unavailable Unavailable MANTA, N XIMENA MD Unavailable Unavailable MANTA, N XIMENA MD Unavailable Unavailable MANTA, N XIMENA MD Unavailable Unavailable MANTA, N XIMENA MD Unavailable Unavailable MANTA, N XIMENA MD Unavailable Unavailable MANTA, N XIMENA MD Unavailable Unavailable MANTA, N XIMENA MD Unavailable Unavailable MANTA, N XIMENA MD Unavailable Unavailable MANTA, N XIMENA MD Unavailable Unavailable MANTA, N XIMENA MD Unavailable Unavailable MANTA, N XIMENA MD Unavailable Unavailable MANTA, N XIMENA MD Unavailable Unavailable MANTA, N XIMENA MD Unavailable Unavailable MANTA, N XIMENA MD Unavailable Unavailable MANTA, N XIMENA MD Unavailable Unavailable MANTA, N XIMENA MD Unavailable Unavailable MANTA, N XIMENA MD Unavailable Unavailable MANTA, N XIMENA MD Unavailable Unavailable MANTA, N XIMENA MD Unavailable Unavailable MANTA, N XIMENA MD Unavailable Unavailable MANTA, N XIMENA MD Unavailable Unavailable MANTA, N XIMENA MD Unavailable Unavailable MANTA, N XIMENA MD Unavailable Unavailable MANTA, N XIMENA MD Unavailable Unavailable MANTA, N XIMENA MD Unavailable Unavailable MANTA, N XIMENA MD Unavailable Unavailable MANTA, N XIMENA MD Unavailable Unavailable Marcella GENAO MD Unavailable Unavailable Shankar CAMARGO MD Unavailable Unavailable Shankar CAMARGO MD Unavailable Unavailable Shankar CAMARGO MD Unavailable Unavailable Shankar CAMARGO MD Unavailable Unavailable Shankar CAMARGO MD Unavailable Unavailable Shankar CAMARGO MD Unavailable Unavailable Shankar CAMARGO MD Unavailable Unavailable Shankar CAMARGO MD Unavailable Unavailable Shankar CAMARGO MD Unavailable Unavailable Shankar CAMARGO MD Unavailable Unavailable Shankar CAMARGO MD Unavailable Unavailable Shankar CAMARGO MD Unavailable Unavailable Shankar CAMARGO MD Unavailable Unavailable Shankar CAMARGO MD Unavailable Unavailable Shankar CAMARGO MD Unavailable Unavailable Shankar CAMARGO MD Unavailable Unavailable Shankar CAMARGO MD Unavailable Unavailable Shankar CAMARGO MD Unavailable Unavailable Shankar CAMARGO MD Unavailable Unavailable Shankar CAMARGO MD Unavailable Unavailable Shankar CAMARGO MD Unavailable Unavailable Shankar CAMARGO MD Unavailable Unavailable Shankar CAMARGO MD Unavailable Unavailable Shankar CAMARGO MD Unavailable Unavailable Shankar CAMARGO MD Unavailable Unavailable Shankar CAMARGO MD Unavailable Unavailable Shankar CAMARGO MD Unavailable Unavailable Shankar CAMARGO MD Unavailable Unavailable Shankar CAMARGO MD Unavailable Unavailable Shankar CAMARGO MD Unavailable Unavailable Shankar CAMARGO MD Unavailable Unavailable Shankra CAMARGO MD Unavailable Unavailable Shankar CAMARGO MD Unavailable Unavailable Shankar CAMARGO MD Unavailable Unavailable Shankar CAMARGO MD Unavailable Unavailable Shankar CAMARGO MD Unavailable Unavailable Shankar CAMARGO MD Unavailable Unavailable Shankar CAMARGO MD Unavailable Unavailable Shankar CAMARGO MD Unavailable Unavailable Shankar CAMARGO MD Unavailable Unavailable Shankar CAMARGO MD Unavailable Unavailable Shankar CAMARGO MD Unavailable Unavailable Shankar CAMARGO MD Unavailable Unavailable Shankar CAMARGO MD Unavailable Unavailable Shankar CAMARGO MD Unavailable Unavailable Shankar CAMARGO MD Unavailable Unavailable Shankar CAMARGO MD Unavailable Unavailable Shankar CAMARGO MD Unavailable Unavailable Shankar CAMARGO MD Unavailable Unavailable Shankar CAMARGO MD Unavailable Unavailable Shankar CAMARGO MD Unavailable Unavailable Shankar CAMARGO MD Unavailable Unavailable Shankar CAMARGO MD Unavailable Unavailable Shankar CAMARGO MD Unavailable Unavailable Shankar CAMARGO MD Unavailable Unavailable Shankar CAMARGO MD Unavailable Unavailable Shankar CAMARGO MD Unavailable Unavailable Shankar CAMARGO MD Unavailable Unavailable Shankar CAMARGO MD Unavailable Unavailable Shankar CAMARGO MD Unavailable Unavailable Shankar CAMARGO MD Unavailable Unavailable Shankar CAMARGO MD Unavailable Unavailable Shankar CAMARGO MD Unavailable Unavailable Shankar CAMARGO MD Unavailable Unavailable Shankar CAMARGO MD Unavailable Unavailable Shankar CAMARGO MD Unavailable Unavailable Shankar CAMARGO MD Unavailable Unavailable Shankar CAMARGO MD Unavailable Unavailable Shankar CAMARGO MD Unavailable Unavailable Shankar CAMARGO MD Unavailable Unavailable Shankar CAMARGO MD Unavailable Unavailable Shankar CAMARGO MD Unavailable Unavailable Shankar CAMARGO MD Unavailable Unavailable Shankar CAMARGO MD Unavailable Unavailable Shankar CAMARGO MD Unavailable Unavailable Shankar CAMARGO MD Unavailable Unavailable Sah, nErike Birendra Unavailable Unavailable Sah, P Birendra MD Unavailable Unavailable Sah, P Birendra MD Unavailable Unavailable Sah, P Birendra MD Unavailable Unavailable Sah, P Birendra MD Unavailable Unavailable Sah, P Birendra MD Unavailable Unavailable Sah, P Birendra MD Unavailable Unavailable Sah, P Birendra MD Unavailable Unavailable Sah, P Birendra MD Unavailable Unavailable Sah, P Birendra MD Unavailable Unavailable Sah, P Birendra MD Unavailable Unavailable Sah, P Birendra MD Unavailable Unavailable Sah, P Birendra MD Unavailable Unavailable Sah, P Birendra MD Unavailable Unavailable Sah, P Birendra MD Unavailable Unavailable Sah, P Birendra MD Unavailable Unavailable Sah, P Birendra MD Unavailable Unavailable Sah, P Birendra MD Unavailable Unavailable Sah, P Birendra MD Unavailable Unavailable Sah, P Birendra MD Unavailable Unavailable Sah, P Birendra MD Unavailable Unavailable Sah, P Birendra MD Unavailable Unavailable Sah, P Birendra MD Unavailable Unavailable Sah, P Birendra MD Unavailable Unavailable Sah, P Birendra MD Unavailable Unavailable Sah, P Birendra MD Unavailable Unavailable Sah, P Birendra MD Unavailable Unavailable Sah, P Birendra MD Unavailable Unavailable Sah, P Birendra MD Unavailable Unavailable Sah, P Birendra MD Unavailable Unavailable Sah, P Birendra MD Unavailable Unavailable Sah, P Birendra MD Unavailable Unavailable Sah, P Birendra MD Unavailable Unavailable Sah, P Birendra MD Unavailable Unavailable Sah, P Birendra MD Unavailable Unavailable Sah, P Birendra MD Unavailable Unavailable Sah, P Birendra MD Unavailable Unavailable Sah, P Birendra MD Unavailable Unavailable Sah, P Birendra MD Unavailable Unavailable Sah, P Birendra MD Unavailable Unavailable Sah, P Birendra MD Unavailable Unavailable Sah, P Birendra MD Unavailable Unavailable Sah, P Birendra MD Unavailable Unavailable Sah, P Birendra MD Unavailable Unavailable Sah, P Birendra MD Unavailable Unavailable Sah, P Birendra MD Unavailable Unavailable Sah, P Birendra MD Unavailable Unavailable Sah, P Birendra MD Unavailable Unavailable Sah, P Birendra MD Unavailable Unavailable Sah, P Birendra MD Unavailable Unavailable Sah, P Birendra MD Unavailable Unavailable Enrike Gupta MD Unavailable Unavailable Sah P Sindi MARROQUIN Unavailable Unavailable Danilo, M Sriharsha Unavailable Unavailable Danilo, M Sriharsha Unavailable Unavailable Danilo, M Sriharsha Unavailable Unavailable Danilo, M Sriharsha Unavailable Unavailable Danilo, M Sriharsha Unavailable Unavailable Danilo, M Sriharsha Unavailable Unavailable Danilo, M Sriharsha Unavailable Unavailable Danilo, M Sriharsha Unavailable Unavailable Danilo, M Sriharsha Unavailable Unavailable Danilo, M Sriharsha Unavailable Unavailable Danilo, M Sriharsha Unavailable Unavailable Danilo, M Sriharsha Unavailable Unavailable Danilo, M Sriharsha Unavailable Unavailable Danilo, M Sriharsha Unavailable Unavailable Danilo, M Sriharsha Unavailable Unavailable Danilo, M Sriharsha Unavailable Unavailable Danilo, M Sriharsha Unavailable Unavailable Danilo, M Sriharsha Unavailable Unavailable Danilo, M Sriharsha Unavailable Unavailable Danilo, M Sriharsha Unavailable Unavailable Danilo, M Sriharsha Unavailable Unavailable Danilo, M Sriharsha Unavailable Unavailable Danilo, M Sriharsha Unavailable Unavailable Danilo, M Sriharsha Unavailable Unavailable Danilo, M Sriharsha Unavailable Unavailable Danilo, M Sriharsha Unavailable Unavailable Danilo, M Sriharsha Unavailable Unavailable Danilo, M Sriharsha Unavailable Unavailable Danilo, M Sriharsha Unavailable Unavailable Danilo, M Sriharsha Unavailable Unavailable Kashmir Espinosa MD Unavailable Unavailable Kashmir Espinosa MD Unavailable Unavailable Kashmir Espinosa MD Unavailable Unavailable Kashmir Espinosa MD Unavailable Unavailable Kashmir Espinosa MD Unavailable Unavailable Kashmir Espinosa MD Unavailable Unavailable Kashmir Espinosa MD Unavailable Unavailable Kashmir Espinosa MD Unavailable Unavailable Kashmir Espinosa MD Unavailable Unavailable Kashmir Espinosa MD Unavailable Unavailable Kashmir Espinosa MD Unavailable Unavailable Kashmir Espinosa MD Unavailable Unavailable Kashmir Espinosa MD Unavailable Unavailable Espinosa, Sumendra MD Unavailable Unavailable Espinosa, Sumendra MD Unavailable Unavailable Esipnosa, Sumendra MD Unavailable Unavailable Espinosa, Sumendra MD Unavailable Unavailable Espinosa, Sumendra MD Unavailable Unavailable Espinosa, Sumendra MD Unavailable Unavailable Espinosa, Sumendra MD Unavailable Unavailable Espinosa, Sumendra MD Unavailable Unavailable Espinosa, Sumendra MD Unavailable Unavailable Espinosa, Sumendra MD Unavailable Unavailable Espinosa, Sumendra MD Unavailable Unavailable Espinosa, Sumendra MD Unavailable Unavailable Espinosa, Sumendra MD Unavailable Unavailable Espinosa, Sumendra MD Unavailable Unavailable Espinosa, Sumendra MD Unavailable Unavailable Espinosa, Sumendra MD Unavailable Unavailable Espinosa, Sumendra MD Unavailable Unavailable Espinosa, Sumendra MD Unavailable Unavailable Espinosa, Sumendra MD Unavailable Unavailable Espinosa, Sumendra MD Unavailable Unavailable Espinosa, Sumendra MD Unavailable Unavailable Espinosa, Sumendra MD Unavailable Unavailable Espinosa, Sumendra MD Unavailable Unavailable Espinosa, Sumendra MD Unavailable Unavailable Espinosa, Sumendra MD Unavailable Unavailable Espinosa Sumendra MD Unavailable Unavailable ISADORA LOZANO MD Unavailable Unavailable Rechlin, P Shawn DO Unavailable Unavailable Rechlin, P Shawn DO Unavailable Unavailable Rechlin, P Shawn DO Unavailable Unavailable Rechlin, P Shawn DO Unavailable Unavailable Rechlin, P Shawn DO Unavailable Unavailable Rechlin, P Shawn DO Unavailable Unavailable Rechlin, P Shawn DO Unavailable Unavailable Rechlin, P Shawn DO Unavailable Unavailable Rechlin, P Shawn DO Unavailable Unavailable Rechlin, P Shawn DO Unavailable Unavailable Rechlin, P Shawn DO Unavailable Unavailable Rechlin, P Shawn DO Unavailable Unavailable Rechlin, P Shawn DO Unavailable Unavailable Rechlin, P Shawn DO Unavailable Unavailable Rechlin, P Shawn DO Unavailable Unavailable Rechlin, P Shawn DO Unavailable Unavailable Rechlin, P Shawn DO Unavailable Unavailable Rechlin, P Shawn DO Unavailable Unavailable Rechlin, P Shawn DO Unavailable Unavailable Rechlin, P Shawn DO Unavailable Unavailable Rechlin, P Shawn DO Unavailable Unavailable Rechlin, P Shawn DO Unavailable Unavailable Rechlin, P Shawn DO Unavailable Unavailable Rechlin, P Shawn DO Unavailable Unavailable Rechlin, P Shawn DO Unavailable Unavailable Rechlin, P Shawn DO Unavailable Unavailable Rechlin, P Shawn DO Unavailable Unavailable Rechlin, P Shawn DO Unavailable Unavailable Rechlin, P Shawn DO Unavailable Unavailable Rechlin, P Shawn DO Unavailable Unavailable Rechlin, P Shawn DO Unavailable Unavailable Rechlin, P Shawn DO Unavailable Unavailable Rechlin, P Shawn DO Unavailable Unavailable Rechlin, P Shawn DO Unavailable Unavailable Rechlin, P Shawn DO Unavailable Unavailable Rechlin, P Shawn DO Unavailable Unavailable Rechlin, P Shawn DO Unavailable Unavailable Rechlin, P Shawn DO Unavailable Unavailable Rechlin, P Shawn DO Unavailable Unavailable Rechlin, P Shawn DO Unavailable Unavailable Rechlin, P Shawn DO Unavailable Unavailable Rechlin, P Shawn DO Unavailable Unavailable Rechlin, P Shawn DO Unavailable Unavailable Rechlin, P Shawn DO Unavailable Unavailable Rechlin, P Shawn DO Unavailable Unavailable Rechlin, P Shawn DO Unavailable Unavailable Rechlin, P Shawn DO Unavailable Unavailable Rechlin, P Shawn DO Unavailable Unavailable Rechlin, P Shawn DO Unavailable Unavailable Rechlin, P Shawn DO Unavailable Unavailable Rechlin, P Shawn DO Unavailable Unavailable BERNARDO, A JAMEE MD Unavailable Unavailable CHANGDAILYI, A JAMEE MD Unavailable Unavailable BERNARDO, Efrem GUTIERREZJAMEE Unavailable Unavailable BERNARDO, Efrem GUTIERREZJAMEE Unavailable Unavailable BERNARDO, A JAMEE Unavailable Unavailable CHANGLUIS F, A JAMEE Unavailable Unavailable CHANGLAI, A JAMEE MD Unavailable Unavailable CHANGLAI, Efrem GUTIERREZJAMEE MD Unavailable Unavailable CHANGLAI, Efrem GUTIERREZJAMEE MD Unavailable Unavailable CHANGLAI, A JAMEE MD Unavailable Unavailable CHANGLAI, A JAMEE MD Unavailable Unavailable CHANGLAI, A JAMEE MD Unavailable Unavailable CHANGLAI, A JAMEE MD Unavailable Unavailable CHANGLAI, Efrem GUTIERREZJAMEE Unavailable Unavailable CHANGLAI, Efrem GUTIERREZJAMEE Unavailable Unavailable CHANGLUIS F, Efrem MANCUSO MD Unavailable Unavailable CHANGLAI, A JAMEE Unavailable Unavailable CHANGLUIS F, Efrem MANCUSO MD Unavailable Unavailable CHANGLUIS F, Efrem MANCUSO MD Unavailable Unavailable LITA JONES [id number] Unavailable Unavailable Efrem Dorsey Unavailable Unavailable Symenow, Griselda Marietta PA Unavailable Unavailable Symenow, Griselda Marietta PA Unavailable Unavailable Symenow, Griselda Marietta PA Unavailable Unavailable Symenow, Griselda Marietta PA Unavailable Unavailable Symenow, Griselda Marietta PA Unavailable Unavailable Symenow, Griselda Marietta PA Unavailable Unavailable Symenow, Griselda Marietta PA Unavailable Unavailable Symenow, Griselda Marietta PA Unavailable Unavailable Symenow, Griselda Marietta PA Unavailable Unavailable Symenow, Griselda Marietta PA Unavailable Unavailable Symenow, Griselda Marietta PA Unavailable Unavailable Symenow, Griselda Marietta PA Unavailable Unavailable Symenow, Griselda Marietta PA Unavailable Unavailable Symenow, Griselda Marietta PA Unavailable Unavailable Symenow, Griselda Marietta PA Unavailable Unavailable Symenow, Griselda Marietta PA Unavailable Unavailable Symenow, Griselda Marietta PA Unavailable Unavailable Symenow, Griselda Marietta PA Unavailable Unavailable Symenow, Griselda Marietta PA Unavailable Unavailable Symenow, Griselda Marietta PA Unavailable Unavailable Symenow, Griselda Marietta PA Unavailable Unavailable Symenow, Griselda Marietta PA Unavailable Unavailable Symenow, Griselda Marietta PA Unavailable Unavailable Symenow, Griselda Marietta PA Unavailable Unavailable Symenow, Griselda Marietta PA Unavailable Unavailable Symenow, Griselda Marietta PA Unavailable Unavailable Symenow, Griselda Marietta PA Unavailable Unavailable Symenow, Griselda Marietta PA Unavailable Unavailable Symenow, Griselda Marietta PA Unavailable Unavailable Symenow, Griselda Marietta PA Unavailable Unavailable Symenow, Griselda Marietta PA Unavailable Unavailable Symenow, Griselda Marietta PA Unavailable Unavailable Symenow, Griselda Marietta PA Unavailable Unavailable Symenow, Griselda Marietta PA Unavailable Unavailable Chidi, Efrem Rojas MD Unavailable Unavailable Chidi, Efrem Rojas MD Unavailable Unavailable Chidi, Efrem Rojas MD Unavailable Unavailable Chidi, Efrem Rojas MD Unavailable Unavailable Chidi, Efrem Rojas MD Unavailable Unavailable Chidi, Efrem Rojas MD Unavailable Unavailable Chidi, Efrem Rojas MD Unavailable Unavailable Chidi, Efrem Rojas MD Unavailable Unavailable Chidi, Efrem Rojas MD Unavailable Unavailable Chidi, Efrem Rojas MD Unavailable Unavailable Chidi, Efrem Rojas MD Unavailable Unavailable Chidi, Efrem Rojas MD Unavailable Unavailable Chidi, Efrem Rojas MD Unavailable Unavailable Chidi, Efrem Rojas MD Unavailable Unavailable Chidi, Efrem Rojas MD Unavailable Unavailable Chidi, Efrem Rojas MD Unavailable Unavailable Chidi, Efrem Rojas MD Unavailable Unavailable Chidi, Efrem Rojas MD Unavailable Unavailable Chidi, Efrem Rojas MD Unavailable Unavailable Chidi, Efrem Rojas MD Unavailable Unavailable Chidi, Efrem Rojas MD Unavailable Unavailable Chidi, Efrem Rojas MD Unavailable Unavailable Chidi, Efrem Rojas MD Unavailable Unavailable Chidi, A Bob MARROQUIN Unavailable Unavailable Chidi, A Bob MARROQUIN Unavailable Unavailable Chidi, A Bob MARROQUIN Unavailable Unavailable Chidi, A Bob MARROQUIN Unavailable Unavailable Chidi, A Bob MARROQUIN Unavailable Unavailable Chidi, A Bob MARROQUIN Unavailable Unavailable Chidi, A Bob MARROQUIN Unavailable Unavailable Chidi, A Bob MARROQUIN Unavailable Unavailable Chidi, A Bob MARROQUIN Unavailable Unavailable Chidi, A Bob MARROQUIN Unavailable Unavailable Chidi, A Bob MARROQUIN Unavailable Unavailable Chidi, A Bob MARROQUIN Unavailable Unavailable Chidi, A Bob MARROQUIN Unavailable Unavailable Chidi, A Bob MARROQUIN Unavailable Unavailable Chidi, A Bob MARROQUIN Unavailable Unavailable Chidi, A Bob MARROQUIN Unavailable Unavailable Chidi, A Bob MARROQUIN Unavailable Unavailable Chidi, A Bob MARROQUIN Unavailable Unavailable Chidi, A Bob MARROQUIN Unavailable Unavailable Chidi, A Bob MARROQUIN Unavailable Unavailable Chidi, A Bob MARROQUIN Unavailable Unavailable Chidi, A Bob MARROQUIN Unavailable Unavailable Chidi, A Bob MARROQUIN Unavailable Unavailable Chidi, A Bob MARROQUIN Unavailable Unavailable Chidi, A Bob MARROQUIN Unavailable Unavailable Chidi, A Bob MARROQUIN Unavailable Unavailable Chidi, A Bob MARROQUIN Unavailable Unavailable Chidi, A Bob MARROQUIN Unavailable Unavailable Chidi, A Bob MARROQUIN Unavailable Unavailable Chidi, A Bob MARROQUIN Unavailable Unavailable Chidi, A Bob MARROQUIN Unavailable Unavailable Chidi, A Bob MARROQUIN Unavailable Unavailable Chidi, A Bob MARROQUIN Unavailable Unavailable Chidi, A Bob MARROQUIN Unavailable Unavailable Chidi, A Bob MARROQUIN Unavailable Unavailable Chidi, A Bob MARROQUIN Unavailable Unavailable Chidi, A Bob MARROQUIN Unavailable Unavailable Chidi, A Bob MARROQUIN Unavailable Unavailable Chidi, A Bob MARROQUIN Unavailable Unavailable Chidi, A Bob MARROQUIN Unavailable Unavailable Chidi, A Bob MARROQUIN Unavailable Unavailable Chidi, A Bob MARROQUIN Unavailable Unavailable Chidi, A Bob MARROQUIN Unavailable Unavailable Chidi, A Bob MARROQUIN Unavailable Unavailable Chidi, A Bob MARROQUIN Unavailable Unavailable Chidi, A Bob MARROQUIN Unavailable Unavailable Chidi, A Bob MARROQUIN Unavailable Unavailable Chidi, A Bob MARROQUIN Unavailable Unavailable Chidi, A Bob MARROQUIN Unavailable Unavailable Chidi, A Bob MARROQUIN Unavailable Unavailable Chidi, A Bob MARROQUIN Unavailable Unavailable Chidi, A Bob MARROQUIN Unavailable Unavailable Chidi, A Bob MARROQUIN Unavailable Unavailable Chidi, A Bob MARROQUIN Unavailable Unavailable Chidi, A Bob MARROQUIN Unavailable Unavailable Chidi, A Bob MARROQUIN Unavailable Unavailable Chidi, A Bob MARROQUIN Unavailable Unavailable Chidi, A Bob MARROQUIN Unavailable Unavailable Chidi, A Bob MARROQUIN Unavailable Unavailable Chidi, A Bob MARROQUIN Unavailable Unavailable Chidi, A Bob MARROQUIN Unavailable Unavailable Chidi, A Bob MARROQUIN Unavailable Unavailable Chidi, A Bob MD Unavailable Unavailable Chidi, Efrem Rojas MD Unavailable Unavailable Chidi, Efrem Rojas MD Unavailable Unavailable Chidi, Efrem Rojas MD Unavailable Unavailable Chidi, Efrem Rojas MD Unavailable Unavailable Chidi, Efrem Rojas MD Unavailable Unavailable Chidi, Efrem Rojas MD Unavailable Unavailable Chidi, Efrem Rojas MD Unavailable Unavailable Chidi, Efrem Rojas MD Unavailable Unavailable Chidi, Efrem Rojas MD Unavailable Unavailable Chidi, Efrem Rojas MD Unavailable Unavailable Chidi, Efrem Rojas MD Unavailable Unavailable Chidi, Efrem Rojas MD Unavailable Unavailable Chidi, Efrem Rojas MD Unavailable Unavailable Chidi, Efrem Rojas MD Unavailable Unavailable Chidi, Efrem Rojas MD Unavailable Unavailable Chidi, Efrem Rojas MD Unavailable Unavailable Chidi, Efrem Rojas MD Unavailable Unavailable Chidi, Efrem Rojas MD Unavailable Unavailable Chidi, Efrem Rojas MD Unavailable Unavailable Chidi, Efrme Rojas MD Unavailable Unavailable Chidi, Efrem Rojas MD Unavailable Unavailable Pablo Gresham MD Unavailable Unavailable Pablo Gresham MD Unavailable Unavailable Pablo Gresham MD Unavailable Unavailable Pablo Gresham MD Unavailable Unavailable Pablo Gresham MD Unavailable Unavailable Pablo Gresham MD Unavailable Unavailable Pablo Gresham MD Unavailable Unavailable Pablo Gresham MD Unavailable Unavailable Pablo Gresham MD Unavailable Unavailable Pablo Gresham MD Unavailable Unavailable Pablo Gresham MD Unavailable Unavailable Pablo Gresham MD Unavailable Unavailable Pablo Gresham MD Unavailable Unavailable Pablo Gresham MD Unavailable Unavailable Pablo Gresham MD Unavailable Unavailable Pablo Gresham MD Unavailable Unavailable Araseli Cabrera JR, MD Unavailable Unavailable Araseli Cabrera JR, MD Unavailable Unavailable Araseli Cabrera JR, MD Unavailable Unavailable Araseli Cabrera JR, MD Unavailable Unavailable Araseli Cabrera JR, MD Unavailable Unavailable Araseli Cabrera JR, MD Unavailable Unavailable Araseli Cabrera JR, MD Unavailable Unavailable Araseli Cabrera JR, MD Unavailable Unavailable Araseli Cabrera JR, MD Unavailable Unavailable Araseli Cabrera JR, MD Unavailable Unavailable Araseli Cabrera JR, MD Unavailable Unavailable Araseli Cabrera JR, MD Unavailable Unavailable Araseli Cabrera JR, MD Unavailable Unavailable Araseli Cabrera JR, MD Unavailable Unavailable Araseli Cabrera JR, MD Unavailable Unavailable Araseli Cabrera JR, MD Unavailable Unavailable Araseli Cabrera JR, MD Unavailable Unavailable Araseli Cabrera JR, MD Unavailable Unavailable Rick JR, J Mengjayme MARROQUIN Unavailable Unavailable Rick JR, J Meng Unavailable Unavailable Rick JR, J Meng Unavailable Unavailable Rick JR, J Meng Unavailable Unavailable Rick JR, J Meng Unavailable Unavailable Rick JR, J Meng Unavailable Unavailable Rick JR, J Meng Unavailable Unavailable Rick JR, J Meng Unavailable Unavailable Rick JR, J Meng Unavailable Unavailable Rick JR, J Meng Unavailable Unavailable Rick JR, J Meng Unavailable Unavailable Rick JR, J Meng Unavailable Unavailable Rick JR, J Meng Unavailable Unavailable Rick JR, J Meng Unavailable Unavailable Rick JR, J Meng Unavailable Unavailable Rick JR, J Meng Unavailable Unavailable Rick JR, J Meng Unavailable Unavailable Rick JR, J Meng Unavailable Unavailable Rick JR, J Meng Unavailable Unavailable Rick JR, J Meng Unavailable Unavailable Rick JR, J Meng Unavailable Unavailable Rick JR, J Meng Unavailable Unavailable Rick JR, J Meng Unavailable Unavailable Rick JR, J Meng Unavailable Unavailable Rick JR, J Meng Unavailable Unavailable Rick JR, J Megn Unavailable Unavailable Rick JR, J Meng Unavailable Unavailable Rick JR, J Meng Unavailable Unavailable Rick JR, J Meng Unavailable Unavailable Rick JR, J Meng Unavailable Unavailable Rick JR, J Meng Unavailable Unavailable Rick JR, J Meng Unavailable Unavailable Rick JR, J Meng Unavailable Unavailable Rick JR, J Meng Unavailable Unavailable Rick JR, J Meng MARROQUIN Unavailable Unavailable Rick JR, J Meng MARROQUIN Unavailable Unavailable Bear GORE MD Unavailable Unavailable Bear GORE MD Unavailable Unavailable Bear GORE MD Unavailable Unavailable Bear GORE MD Unavailable Unavailable Bear GORE MD Unavailable Unavailable Bear GORE MD Unavailable Unavailable Vonda PETE Unavailable Unavailable López Rodriguez MD Unavailable Unavailable óLpez Rodriguez MD Unavailable Unavailable López Rodriguez MD Unavailable Unavailable López Rodriguez MD Unavailable Unavailable López Rodriguez MD Unavailable Unavailable López Rodriguez MD Unavailable Unavailable López Rodriguez MD Unavailable Unavailable López Rodriguez MD Unavailable Unavailable López Rodriguez MD Unavailable Unavailable López Rodriguez MD Unavailable Unavailable López Rodriguez MD Unavailable Unavailable óLpez Rodriguez MD Unavailable Unavailable López Rodriguez MD Unavailable Unavailable López Rodriguez MD Unavailable Unavailable López Rodriguez MD Unavailable Unavailable Re-disclosure Warning The records that you are about to access may contain information from federally-assisted alcohol or drug abuse programs. If such information is present, then the following federally mandated warning applies: This information has been disclosed to you from records protected by federal confidentiality rules (42 CFR part 2). The federal rules prohibit you from making any further disclosure of this information unless further disclosure is expressly permitted by the written consent of the person to whom it pertains or as otherwise permitted by 42 CFR part 2. A general authorization for the release of medical or other information is NOT sufficient for this purpose. The Federal rules restrict any use of the information to criminally investigate or prosecute any alcohol or drug abuse patient.The records that you are about to access may contain highly sensitive health information, the redisclosure of which is protected by Article 27-F of the [facility] Public Health law. If you continue you may have access to information: Regarding HIV / AIDS; Provided by facilities licensed or operated by the [facility] Office of Mental Health; or Provided by the [facility] Office for People With Developmental Disabilities. If such information is present, then the following [facility] mandated warning applies: This information has been disclosed to you from confidential records which are protected by state law. State law prohibits you from making any further disclosure of this information without the specific written consent of the person to whom it pertains, or as otherwise permitted by law. Any unauthorized further disclosure in violation of state law may result in a fine or care home sentence or both. A general authorization for the release of medical or other information is NOT sufficient authorization for further disc losure. Allergies and Adverse Reactions Type Description Substance Reaction Status Data Source(s ) Propensity to adverse reactions AMIODARONE Amiodarone Acti ve [facility] Propensity to adverse reactions SIMVASTATIN SIMVASTATIN [facility] Drug allergy ATORVASTATIN CALCIUM ATORVASTATIN CALCIUM [facility] Propensity to adverse reactions NO KNOWN ALLERGIES NO KNOWN ALLERGIES [facility] Propensity to adverse reactions AMIODARONE AMIODARONE Anaphylaxis [facility] Family History Family Member Name Family Member Gender Family Member Status Date o f Status Description Data Source(s) Unknown Unknown Problem [facility] ([facility] Unknown Male Problem MED[facility] ([facility]) Encounters Encounter Providers Location Date Indications Data Source(s ) [place] [address] [facility] [address] 07/23/2021 12:00:00 AM EDT eCW1 [facility] Outpatient Attender: Marietta PIÑA Main Office 07/17/2021 09:15:00 AM EDT MEDENT ([facility]) Unknown [address] [facility] [address] 07/14/2021 12:00:00 AM EDT eCW1 ([facility] Outpatient [address] [facility] [place] [address] 07/02/2021 12:00:00 AM EDT eCW1 ([facility]) Unknown [address] [facility] [place] [address] 06/21/2021 12:00:00 AM EDT eCW1 ([facility] Unknown [address] [facility] [address] 06/20/2021 12:00:00 AM EDT eCW1 ([facility]) Unknown [address] [facility] [address] 06/06/2021 12:00:00 AM EDT eCW1 ([facility]) Outpatient Attender: Shawn Carrero/Dominga/Viet/Filiberto ndshawna 06/05/2021 09:30:00 AM EDT MEDENT ([facility] [place] [address] [facility] [address] 06/04/2021 12:00:00 AM EDT eCW1 ([facility] [place] [address] [facility] [address] 05/23/2021 12:00:00 AM EDT eCW1 ([facility] [place] [address] [facility] [place] [address] 05/13/2021 12:00:00 AM EDT eCW1 ([facility] Unknown [address] [facility] [address] 05/13/2021 12:00:00 AM EDT eCW1 ([facility]) Outpatient Attender: Bob Murillo MDA ttender: PEDRO SMITH MDAttender: Pablo Gresham MDReferrer: Bob Murillo MD [id number] 05/02/2021 12:30:55 PM EDT - 05/02/2021 11:59:00 PM EDT [facility] Patient discharged. Outpatient Attender: PEDRO SMITH MDReferrer: Bob Murillo MD MOB-MOB 04/26/2021 12:00:00 AM EDT [facility] Unknown [address] [facility] [address] 04/25/2021 12:00:00 AM EDT eCW1 ([facility]) Outpatient Attender: Marietta Bowden PA Main Office 04/23/2021 09:30:00 AM EDT MEDENT ([facility]) Unknown [address] [facility] [address] 04/22/2021 12:00:00 AM EDT eCW1 ([facility]) Outpatient Attender: Pablo Gresham MDAt tender: PEDRO SMITH MDAdmitter: PEDRO SMITH MD [id number] 04/18/2021 05:13:44 PM EDT - 05/02/2021 02:12:00 PM EDT [facility] Patient discharged. Unknown [address] [facility] [address] 04/18/2021 12:00:00 AM EDT eCW1 ([facility]) Outpatient [address] [facility] [place] [address] 04/16/2021 12:00:00 AM EDT eCW1 ([facility]) Unknown [address] [facility], [place] [address] 04/10/2021 12:00:00 AM EDT eCW1 ([facility]) Outpatient Attender: UDAY CAMARGO MD [place] Office 02:00:00 PM EDT MEDENT ([facility] [place] [address] [facility] [address] 03/19/2021 12:00:00 AM EDT eCW1 ([facility]) Unknown [address] [facility] [address] 03/19/2021 12:00:00 AM EDT eCW1 ([facility]) Unknown [address] [facility] [address] 03/18/2021 12:00:00 AM EDT eCW1 ([facility]) Outpatient Attender: Marietta PIÑA [facility] Office 03/12/2021 09:15:00 AM EDT MEDENT ([facility]) Outpatient [address] [facility] [address] 03/05/2021 12:00:00 AM EDT eCW1 ([facility]) Outpatient Attender: Meng Esqueda/Dominga/Viet/Mary Carmen thayer 03/04/2021 09:30:00 AM EDT MEDENT ([facility]) [place] [address] [facility] [address] 02/08/2021 12:00:00 AM EDT eCW1 ([facility]) Outpatient Referrer: LITA JONES [id number] 01/31/2021 12:0 0:00 AM T [facility] Outpatient Referrer: LITA JONES [id number] 01/31/2021 12:0 0:00 AM [facility] Inpatient Attender: LITA JONES 292 668Attender: Angi DorseyAttender: CODY LOCKETTdmitter: Kashmir Espinosa MDReferrer: Kashmir Espinosa MD 01/30/2021 12:00:00 AM EDT Sepsis, unspecified organism [facility] Sepsis, unspecified organism Outpatient Attender: CODY Hernandezferrer: LITA WHITMAN [id number] 01/30/2021 12:00:00 AM [facility] Outpatient Attender: Amisha CarrascoReferrer: Amisha hardwick 01/25/2021 12:00:00 AM EDT [facility] Outpatient Referrer: Amisha Carrasco 01/25/2021 12:00:00 AM [facility] Inpatient Attender: ISADORA MARTINES MDAttender: Sindi Gupta MDAttender: LITA JONES [id number]: López Rodriguez MDAttender: Amisha PhilipwthamAttender: JAMEE CHANG MDAttender: XIMENA GENAO MDAttender: Kashmir Espinosa MDAttender: NIRAV GORE MDAdmitter: XIMENA GENAO MDReferrer: Kashmir Espinosa MDConsultant: Amisha CarrascoConsultant: JAMEE CHANG MD [id number] 12:00:00 AM EDT - 02/08/2021 10:17:00 PM EDT Sepsis, unspecified organism [facility] Sepsis, unspecified organism Patient discharged. Outpatient Attender: UDAY CAMARGO MD [place] Office 10/2020 01:00:00 PM EDT MEDENT ([facility] Outpatient Attender: Marietta PIÑA Main Office 12/20/2020 01:00:00 PM EDT MEDENT ([facility]) Outpatient Attender: Shawn Carrero/Dominga/Viet/Filiberto ndl 10/01/2020 10:00:00 AM EST MEDENT ([facility] ([id number]) For Template [facility]entes [address] [place] [address] 09/26/2020 12:00:00 AM EST eCW1 ([facility]) Outpatient Attender: UDAY CAMARGO MD [place] Office 01:00:00 PM EST MEDENT ([facility] ([id number]) For Template [facility] [address] [place] [address] 09/12/2020 12:00:00 AM EST eCW1 ([facility]) ([id number]) For Template [employer] [address] [place] [address] 09/05/2020 12:00:00 AM EST eCW1 ([facility]) Outpatient [address] [facility] [place] [address] 08/27/2020 12:00:00 AM EST eCW1 ([facility]) Unknown [address] [facility] [place] [address] 08/27/2020 12:00:00 AM EST eCW1 ([facility]) Unknown [address] [facility] [address] 08/22/2020 12:00:00 AM EST eCW1 ([facility]) Outpatient Attender: Rosa Esqueda/Dominga/Viet/Eladio 08/20/2020 02:00:00 PM EST MEDENT ([facility] ([id number]) For Template [facility] [place] [address] 08/15/2020 12:00:00 AM EST eCW1 ([facility]) ([id number]) For Template [facility] [place] [address] 08/08/2020 12:00:00 AM EST eCW1 ([facility]) ([id number]) For Template [facility] [place] [address] 08/01/2020 12:00:00 AM EST eCW1 ([facility]) ([id number]) For Template [facility] [place] [address] 07/27/2020 12:00:00 AM EDT eCW1 ([facility]) ([id number]) For Template [facility] [place] [address] 07/13/2020 12:00:00 AM EDT eCW1 ([facility]) ([id number]) For Template [employer] [address] [place] [address] 07/06/2020 12:00:00 AM EDT eCW1 ([facility]) ([id number]) For Template [employer] [address] [place] [address] 06/27/2020 12:00:00 AM EDT eCW1 ([facility]) Outpatient Attender: UDAY CAMARGO MD [place] Office 02:30:00 PM EDT MEDTRISTIAN ([facility] Outpatient Attender: Marietta PIÑA Main Office 06/20/2020 09:45:00 AM EDT MEDTRISTIAN ([facility]) Immunizations Vaccine Date Status Description Data Source(s) COVID-19 VACCINE Pfizer 07/09/2021 12:00:00 AM EDT completed [facility] Vaccine Series Complete: YESThis Data wa s Submitted to [facility] Via [employer]. COVID-19 VACC, MRNA(PFIZER)/PF 07/09/2021 12:00:00 AM EDT completed [facility] COVID-19 VACCINE Pfizer 11/17/2020 12:00:00 AM EST completed [facility] Vaccine Series Complete: YESThis Data wa s Submitted to [facility] Via [employer]. COVID-19 VACCINE Pfizer 10/27/2020 12:00:00 AM EST completed [facility] Vaccine Series Complete: NOThis Data was Submitted to [facility] Via [employer]. IIV3. This is one of two codes replacing CVX 15, which is being retired. 07/06/2020 10:20:00 AM EDT completed eCW1 ([facility]) IIV3. This is one of two codes replacing CVX 15, which is being retired. 07/06/2020 10:20:00 AM EDT completed eCW1 ([facility]) IIV3. This is one of two codes replacing CVX 15, which is being retired. 07/06/2020 10:20:00 AM EDT completed eCW1 ([facility]) IIV3. This is one of two codes replacing CVX 15, which is being retired. 07/06/2020 10:20:00 AM EDT completed eCW1 ([facility]) IIV3. This is one of two codes replacing CVX 15, which is being retired. 07/06/2020 10:20:00 AM EDT completed eCW1 ([facility]) IIV3. This is one of two codes replacing CVX 15, which is being retired. 07/06/2020 10:20:00 AM EDT completed eCW1 ([facility]) IIV3. This is one of two codes replacing CVX 15, which is being retired. 07/06/2020 10:20:00 AM EDT completed eCW1 ([facility]) IIV3. This is one of two codes replacing CVX 15, which is being retired. 07/06/2020 10:20:00 AM EDT completed eCW1 ([facility]) IIV3. This is one of two codes replacing CVX 15, which is being retired. 07/06/2020 10:20:00 AM EDT completed eCW1 ([facility]) IIV3. This is one of two codes replacing CVX 15, which is being retired. 07/06/2020 10:20:00 AM EDT completed eCW1 ([facility]) IIV3. This is one of two codes replacing CVX 15, which is being retired. 07/06/2020 10:20:00 AM EDT completed eCW1 ([facility]) IIV3. This is one of two codes replacing CVX 15, which is being retired. 07/06/2020 10:20:00 AM EDT completed eCW1 ([facility]) IIV3. This is one of two codes replacing CVX 15, which is being retired. 07/06/2020 10:20:00 AM EDT completed eCW1 ([facility]) IIV3. This is one of two codes replacing CVX 15, which is being retired. 07/06/2020 10:20:00 AM EDT completed eCW1 ([facility]) IIV3. This is one of two codes replacing CVX 15, which is being retired. 07/06/2020 10:20:00 AM EDT completed eCW1 ([facility]) IIV3. This is one of two codes replacing CVX 15, which is being retired. 07/06/2020 10:20:00 AM EDT completed eCW1 ([facility]) IIV3. This is one of two codes replacing CVX 15, which is being retired. 07/06/2020 10:20:00 AM EDT completed eCW1 ([facility]) IIV3. This is one of two codes replacing CVX 15, which is being retired. 07/06/2020 10:20:00 AM EDT completed eCW1 ([facility]) IIV3. This is one of two codes replacing CVX 15, which is being retired. 07/06/2020 10:20:00 AM EDT completed eCW1 ([facility]) IIV3. This is one of two codes replacing CVX 15, which is being retired. 07/06/2020 10:20:00 AM EDT completed eCW1 ([facility]) IIV3. This is one of two codes replacing CVX 15, which is being retired. 07/06/2020 10:20:00 AM EDT completed eCW1 ([facility]) IIV3. This is one of two codes replacing CVX 15, which is being retired. 07/06/2020 10:20:00 AM EDT completed eCW1 ([facility]) IIV3. This is one of two codes replacing CVX 15, which is being retired. 07/06/2020 10:20:00 AM EDT completed eCW1 ([facility]) IIV3. This is one of two codes replacing CVX 15, which is being retired. 07/06/2020 10:20:00 AM EDT completed eCW1 ([facility]) IIV3. This is one of two codes replacing CVX 15, which is being retired. 07/06/2020 10:20:00 AM EDT completed eCW1 ([facility]) IIV3. This is one of two codes replacing CVX 15, which is being retired. 07/06/2020 10:20:00 AM EDT completed eCW1 ([facility]) IIV3. This is one of two codes replacing CVX 15, which is being retired. 07/06/2020 10:20:00 AM EDT completed eCW1 ([facility]) IIV3. This is one of two codes replacing CVX 15, which is being retired. 07/06/2020 10:20:00 AM EDT completed eCW1 ([facility]) IIV3. This is one of two codes replacing CVX 15, which is being retired. 07/06/2020 10:20:00 AM EDT completed eCW1 ([facility]) IIV3. This is one of two codes replacing CVX 15, which is being retired. 07/06/2020 10:20:00 AM EDT completed eCW1 ([facility]) IIV3. This is one of two codes replacing CVX 15, which is being retired. 07/06/2020 10:20:00 AM EDT completed eCW1 ([facility]) IIV3. This is one of two codes replacing CVX 15, which is being retired. 07/06/2020 10:20:00 AM EDT completed eCW1 ([facility]) IIV3. This is one of two codes replacing CVX 15, which is being retired. 07/06/2020 10:20:00 AM EDT completed eCW1 ([facility]) New in 2012. IIV4 06/25/2020 03:22:00 PM EDT completed MEDENT ([facility] Medications Medication Brand Name Start Date Product Form Dose Route Admi nistrative Instructions Pharmacy Instructions Status Indications Reaction Description Data Source(s) 20 mg 07/31/2021 12:00:00 AM EDT tablet 30 TAKE ONE TABLET BY MOUTH EVERY DAY TAKE ONE TABLET BY MOUTH EVERY DAY SOLD: 08/01/2021 [facility] 10 mg 07/30/2021 12:00:00 AM EDT tablet 30 TAKE ONE TABLET BY MOUTH EVERY DAY TAKE ONE TABLET BY MOUTH EVERY DAY SOLD: 07/31/2021 [facility] Finasteride 5 MG Oral Tablet FINASTERIDE 07/29/2021 12:00:00 AM EDT ta blet 90 TAKE ONE TABLET BY MOUTH EVERY DAY TAKE ONE TABLET BY MOUTH EVERY DAY SOLD: 07/30/2021 [facility] 0.4 mg 07/17/2021 12:00:00 AM EDT tablet, sublingual [address] ONE TABLET UNDER THE TONGUE EVERY 5 MINUTES FOR UP TO 3 DOSES NEEDED FOR CHEST PAIN. IF CHEST PAIN STILL PERSISTS CONTACT [address] ONE TABLET UNDER THE TONGUE EVERY 5 MINUTES FOR UP TO 3 DOSES NEEDED FOR CHEST PAIN. IF CHEST PAIN STILL PERSISTS CONTACT 911 SOLD: 07/19/2021 [facility] 5 mg 07/17/2021 12:00:00 AM EDT tablet 180 TAKE ONE TABLET BY MOUTH TWICE A DAY TAKE ONE TABLET BY MOUTH TWICE A DAY SOLD: 07/19/2021 [facility] 07/16/2021 12:00:00 AM EDT acti ve MEDENT ([facility]) Ergocalciferol 36576 UNT Oral Capsule Vitamin D (Ergocalcife rol) 07/16/2021 12:00:00 AM EDT ORAL active M EDENT ([facility]) Fluticasone propionate 0.05 MG/ACTUAT Metered Dose Farhan al [place] 50 mcg/actuation FLUTICASONE PROPIONATE 07/11/2021 12:00:00 AM EDT spray,suspension 16 INSTILL 2 SPRAYS IN EACH NOSTRIL AT BEDTIME ONCE DAILY INSTILL 2 SPRAYS IN EACH NOSTRIL AT BEDTIME ONCE DAILY SOLD: 07/13/2021 [facility] Zinplava 1000 MG/40ML Zinplava 1000 MG/40ML 07/02/2021 12:00:00 AM EDT active Zinplava 1000 MG/40ML eCW1 ( [facility]) Zinplava 1000 MG/40ML Zinplava 1000 MG/40ML 07/02/2021 12:00:00 AM EDT active Zinplava 1000 MG/40ML eCW1 ( [facility]) Zinplava 1000 MG/40ML Zinplava 1000 MG/40ML 07/02/2021 12:00:00 AM EDT active Zinplava 1000 MG/40ML eCW1 ( [facility]) fidaxomicin 200 MG Oral Tablet [Dificid] Dificid 200 MG Difi gianna 200 MG 06/21/2021 12:00:00 AM EDT 1.0 {tablet} active Dificid 200 MG eCW1 ([facility]) fidaxomicin 200 MG Oral Tablet [Dificid] Dificid 200 MG Difi gianna 200 MG 06/21/2021 12:00:00 AM EDT 1.0 {tablet} active Dificid 200 MG eCW1 ([facility]) fidaxomicin 200 MG Oral Tablet [Dificid] Dificid 200 MG Difi gianna 200 MG 06/21/2021 12:00:00 AM EDT 1.0 {tablet} active Dificid 200 MG eCW1 ([facility]) fidaxomicin 200 MG Oral Tablet [Dificid] Dificid 200 MG Difi gianna 200 MG 06/21/2021 12:00:00 AM EDT 1.0 {tablet} active Dificid 200 MG eCW1 ([facility]) fidaxomicin 200 MG Oral Tablet [Dificid] Dificid 200 MG Difi gianna 200 MG 06/21/2021 12:00:00 AM EDT 1.0 {tablet} active Dificid 200 MG eCW1 ([facility]) 5 mg 06/16/2021 12:00:00 AM EDT tablet 60 TAKE ONE TABLET BY MOUTH TWO TIMES A DAY TAKE ONE TABLET BY MOUTH TWO TIMES A DAY SOLD: 06/18/2021 [facility] 500 mg 05/13/2021 12:00:00 AM EDT tablet 14 TAKE ONE TABLET BY MOUTH EVERY DAY TAKE ONE TABLET BY MOUTH EVERY DAY SOLD: 05/13/2021 [facility] 200 mg 05/13/2021 12:00:00 AM EDT tablet 14 TAKE ONE TABLET BY MOUTH EVERY DAY TAKE ONE TABLET BY MOUTH EVERY DAY SOLD: 05/13/2021 [facility] iopamidol (ISOVUE-250) 51 % injection 100 mL [id number] 01:18:27 PM EDT 100 mL Intravenous completed 100 mL, Intravenous, Once in imaging, contrast, Starting on Julia 05/02/21 at 1318, For 1 dose [facility] Medication administered onsite Potassium Chloride 10 MEQ Extended Release Oral Tablet POTAS SIUM CHLORIDE 04/23/2021 12:00:00 AM EDT tablet extended release 360 TAKE TWO TABLETS BY MOUTH TWICE A DAY TAKE TWO TABLETS BY MOUTH TWICE A DAY SOLD: 04/26/2021 [facility] Potassium Chloride 10 MEQ Extended Release Oral Tablet [Klor -Con] Klor-Con 10 04/23/2021 12:00:00 AM EDT ORAL active MEDENT ([facility]) Potassium Chloride 10 MEQ Extended Release Oral Tablet POTAS SIUM CHLORIDE 04/23/2021 12:00:00 AM EDT tablet extended release 360 TAKE TWO TABLETS BY MOUTH TWICE A DAY TAKE TWO TABLETS BY MOUTH TWICE A DAY SOLD: 07/30/2021 [facility] 200 mcg 04/22/2021 12:00:00 AM EDT tablet 90 TAKE ONE TABLET BY MOUTH EVERY DAY ALONG WITH A 25MCG TABLET TAKE ONE TABLET BY MOUTH EVERY DAY ALONG WITH A 25MCG TABLET SOLD: 07/29/2021 [facility] 200 mcg 04/22/2021 12:00:00 AM EDT tablet 90 TAKE ONE TABLET BY MOUTH EVERY DAY ALONG WITH A 25MCG TABLET TAKE ONE TABLET BY MOUTH EVERY DAY ALONG WITH A 25MCG TABLET SOLD: 04/23/2021 [facility] 24 HR metoprolol succinate 50 MG Extended Release Oral Tablet Metoprolol Succinate ER 04/22/2021 12:00:00 AM EDT completed [facility] ([facility]) Potassium Chloride 10 MEQ Extended Release Oral Tablet [Klor -Con] Klor-Con 10 04/22/2021 12:00:00 AM EDT ORAL completed [facility] ([facility]) Levofloxacin 500 MG Oral Tablet Levofloxacin 04/22/2021 12:00:00 AM E DT ORAL completed [facility] ([facility]) Fluconazole 200 MG Oral Tablet Fluconazole 04/22/2021 12:00:00 AM EDT ORAL completed [facility] ([facility] 200 mg 04/18/2021 12:00:00 AM EDT tablet 14 TAKE ONE TABLET BY MOUTH EVERY DAY TAKE ONE TABLET BY MOUTH EVERY DAY SOLD: 04/18/2021 [facility] 500 mg 04/18/2021 12:00:00 AM EDT tablet 14 TAKE ONE TABLET BY MOUTH EVERY DAY TAKE ONE TABLET BY MOUTH EVERY DAY SOLD: 04/18/2021 [facility] 500 mg 04/02/2021 12:00:00 AM EDT tablet 10 TAKE ONE TABLET BY MOUTH EVERY DAY TAKE ONE TABLET BY MOUTH EVERY DAY SOLD: 04/02/2021 [facility] 200 mg 04/02/2021 12:00:00 AM EDT tablet 10 TAKE ONE TABLET BY MOUTH EVERY DAY TAKE ONE TABLET BY MOUTH EVERY DAY SOLD: 04/02/2021 [facility] Levofloxacin 500 MG Oral Tablet Levaquin 500 MG Levaquin 500 MG 03/22/2021 12:00:00 AM EDT 1.0 {tablet} active Le vaquin 500 MG eCW1 ([facility]) Levofloxacin 500 MG Oral Tablet Levaquin 500 MG Levaquin 500 MG 03/22/2021 12:00:00 AM EDT 1.0 {tablet} suspended Levaquin 500 MG eCW1 ([facility]) Levofloxacin 500 MG Oral Tablet Levaquin 500 MG Levaquin 500 MG 03/22/2021 12:00:00 AM EDT 1.0 {tablet} active Le vaquin 500 MG eCW1 ([facility]) Levofloxacin 500 MG Oral Tablet Levaquin 500 MG Levaquin 500 MG 03/22/2021 12:00:00 AM EDT 1.0 {tablet} active Le vaquin 500 MG eCW1 ([facility]) Fluconazole 200 MG Oral Tablet Fluconazole 200 MG 03/22/2021 12:00: 00 AM EDT 1.0 {tablet} suspended Fluconazole 200 M G eCW1 ([facility]) Fluconazole 200 MG Oral Tablet Fluconazole 200 MG 03/22/2021 12:00: 00 AM EDT 1.0 {tablet} active Fluconazole 200 MG eCW1 ([facility]) Fluconazole 200 MG Oral Tablet Fluconazole 200 MG 03/22/2021 12:00: 00 AM EDT 1.0 {tablet} active Fluconazole 200 MG eCW1 ([facility]) Fluconazole 200 MG Oral Tablet Fluconazole 200 MG 03/22/2021 12:00: 00 AM EDT 1.0 {tablet} active Fluconazole 200 MG eCW1 ([facility]) 200 mg 03/22/2021 12:00:00 AM EDT tablet 10 TAKE ONE TABLET BY MOUTH DAILY TAKE ONE TABLET BY MOUTH DAILY SOLD: 03/22/2021 [facility] 500 mg 03/22/2021 12:00:00 AM EDT tablet 10 TAKE ONE TABLET BY MOUTH ONCE A DAY TAKE ONE TABLET BY MOUTH ONCE A DAY SOLD: 03/22/2021 [facility] Levofloxacin 500 MG Oral Tablet Levaquin 500 MG Levaquin 500 MG 03/22/2021 12:00:00 AM EDT 1.0 {tablet} active Le vaquin 500 MG eCW1 ([facility]) Fluconazole 200 MG Oral Tablet Fluconazole 200 MG 03/22/2021 12:00: 00 AM EDT 1.0 {tablet} active Fluconazole 200 MG eCW1 ([facility]) Levofloxacin 500 MG Oral Tablet Levaquin 500 MG Levaquin 500 MG 03/22/2021 12:00:00 AM EDT 1.0 {tablet} active Le vaquin 500 MG eCW1 ([facility]) Fluconazole 200 MG Oral Tablet Fluconazole 200 MG 03/22/2021 12:00: 00 AM EDT 1.0 {tablet} active Fluconazole 200 MG eCW1 ([facility]) pantoprazole 40 MG Delayed Release Oral Tablet PANTOPRAZOLE SODIUM 03/18/2021 12:00:00 AM EDT tablet,delayed release (DR/EC) 30 T FIFI ONE TABLET BY MOUTH EVERY EVENING TAKE ONE TABLET BY MOUTH EVERY EVENING SOLD: 03/21/2021 [facility] 40 mg 03/18/2021 12:00:00 AM EDT tablet 30 TAKE ONE TABLET BY MOUTH ONCE DAILY TAKE ONE TABLET BY MOUTH ONCE DAILY SOLD: 03/21/2021 [facility] Digoxin 0.25 MG Oral Tablet 250 mcg (0.25 mg) DIGOXIN 03/15/2021 12:00:00 AM EDT tablet 90 TAKE ONE TABLET BY MOUTH ONC E DAILY TAKE ONE TABLET BY MOUTH ONCE DAILY SOLD: 03/18/2021 [facility] Digoxin 0.25 MG Oral Tablet 250 mcg (0.25 mg) DIGOXIN 03/15/2021 12:00:00 AM EDT tablet 90 TAKE ONE TABLET BY MOUTH ONC E DAILY TAKE ONE TABLET BY MOUTH ONCE DAILY SOLD: 06/18/2021 [facility] 5 mg 03/15/2021 12:00:00 AM EDT tablet 90 TAKE ONE TABLET BY MOUTH THREE TIMES A DAY IF SBP IS LESS THAN 100 TAKE ONE TABLET BY MOUTH THREE TIMES A D AY IF SBP IS LESS THAN 100 SOLD: 03/18/2021 [facility] midodrine hydrochloride 5 MG Oral Tablet Midodrine HCL 03/12/2021 12:00:00 AM EDT ORAL completed [facility] ([facility]) Digoxin 0.25 MG Oral Tablet Digoxin 03/12/2021 12:00:00 AM EDT ORAL active [facility] ([facility]) Metoprolol Tartrate 50 MG Oral Tablet Metoprolol Tartrate 12:00:00 AM EDT ORAL active [facility] ([facility] midodrine hydrochloride 5 MG Oral Tablet Midodrine HCL 03/11/2021 12:00:00 AM EDT ORAL completed [facility] ([facility]) 50 mg 03/06/2021 12:00:00 AM EDT tablet 60 TAKE ONE TABLET BY MOUTH TWICE A DAY TAKE ONE TABLET BY MOUTH TWICE A DAY SOLD: 03/11/2021 [facility] 100 mg 02/26/2021 12:00:00 AM EDT tablet 28 TAKE TWO TABLETS BY MOUTH ONCE DAILY TAKE TWO TABLETS BY MOUTH ONCE DAILY SOLD: 02/26/2021 [facility] 5 mg 02/26/2021 12:00:00 AM EDT tablet 45 TAKE ONE TABLET BY MOUTH AT 8AM, NOON, AND 4P.M. HOLD IF SYSTOLIC BLOOD PRESSURE IS >140 TAKE ONE TABLET BY MOUTH AT 8AM, NOON, AND 4P.M. HOLD IF SYSTOLIC BLOOD PRESSURE IS >140 SOLD: 02/26/2021 [facility] 750 mg 02/26/2021 12:00:00 AM EDT tablet 14 TAKE ONE TABLET BY MOUTH ONCE DAILY TAKE ONE TABLET BY MOUTH ONCE DAILY SOLD: 02/26/2021 [facility] predniSONE (DELTASONE) tablet 30 mg 02/09/2021 09:00:00 AM EDT 30 mg Oral active [Order 1 Start] Name: predniSONE (DELTASONE) tablet 30 mg Signed Summary: 30 mg, Oral, Daily Standard, First dose on Thu02/09/21 at 0900, For 2 days
Take with food.
[Order 1 End] [Order 2 Start] Name: predniSONE (DELTASONE) tablet 20 mg Signed Summary: 20 mg, Oral, Daily Standard, First dose on Thu02/11/21 at 0900, For 2 days
Take with food.
[Order 2 End] [Order 3 Start] Name: predniSONE (DELTASONE) tablet 10 mg Signed Summary: 10 mg, Oral, Daily Standard, First dose on Thu02/13/21 at 0900, For 30 days
Take with food.
[Order 3 End] [facility] Medication administered onsite Magnesium Oxide 400 MG Oral Tablet Magne sium Oxide 400 (241.3 Mg) MG Oral Tablet (MAG-OX) Magnesium Oxide 400 (241.3 Mg) MG Oral Tablet (MAG-OX) 02/09/2021 12:00:00 AM EDT 400 mg Oral active Take 1 t ablet by mouth daily [facility] clopidogrel 75 MG Oral Tablet Clopidogrel Bisulfate 75 MG Oral Tablet (PLAVIX) Clopidogrel Bisulfate 75 MG Oral Tablet (PLAVIX) 02/09/2021 12:00:00 AM EDT 75 mg Oral active Take 1 tablet by mouth d [facility] Fluconazole 200 MG Oral Tablet Fluconazole 200 MG Oral Tablet (DIFLUCAN) Fluconazole 200 MG Oral Tablet (DIFLUCAN) 02/09/2021 12:00:00 AM EDT 200 mg Oral active Take 1 tablet by timothy th daily for 7 days [facility] furosemide (LASIX) injection 20 mg [id number] 02/08/2021 09:00:00 PM EDT 20 mg Intravenous active 20 mg, I ntravenous, 2 Times Daily, First dose on Thu02/08/21 at 2100, For 4 doses
Notify provider if systolic blood pressure less than: 100 [facility] Medication administered onsite metoprolol tartrate (LOPRESSOR) tablet 75 mg 09:00:00 PM EDT 75 mg Oral active 75 mg, Ora l, 2 Times Daily, First dose (after last modification) on Thu02/08/21 at 2100, For 44 doses [facility] Medication administered onsite clopidogrel 75 MG Oral Tablet clopidogrel (PLAVIX) tab let 75 mg clopidogrel (PLAVIX) tablet 75 mg 02/08/2021 10:30:00 AM EDT 75 mg Oral active 75 mg, Oral, Daily Standard, First dose on Thu02/08/21 at 1030, For 30 days [facility] Medication administered onsite Metoprolol Tartrate 50 MG Oral Tablet metoprolol (LOPR ESSOR) tablet 50 mg metoprolol (LOPRESSOR) tablet 50 mg 02/08/2021 09:30:00 AM EDT 50 mg Oral active 50 mg, Oral, Once, On Thu 1 at 0930, For 1 dose [facility] Medication administered onsite Magnesium Oxide 400 MG Oral Tablet Magnesium Oxide (MA G-OX) tablet 400 mg Magnesium Oxide (MAG-OX) tablet 400 mg 02/08/2021 09:00:00 AM EDT 4 00 mg Oral active 400 mg, Oral, D aily Standard, First dose on Thu02/08/21 at 0900, For 30 days [facility] Medication administered onsite sodium chloride 0.9 % bolus 500 mL [id number] 02/08/2021 08:45:00 AM EDT 500 mL Intravenous completed 500 mL, Intravenous, Once, On Thu02/08/21 at 0845, For 1 dose [facility] Medication administered onsite pantoprazole 40 MG Delayed Release Oral Tablet pantoprazole (PROTONIX) EC tablet 40 mg pantoprazole (PROTONIX) EC tablet 40 mg 02/08/2021 07:30:00 AM E DT 40 mg Oral active 40 mg, Ora l, Before Breakfast, First dose on Thu02/08/21 at 0730, For 30 days
Do not crush or chew
[facility] Medication administered onsite Furosemide 10 MG/ML Injection Solution (LASIX) [id number] 02/08/2021 12:00:00 AM EDT 20 mg Intravenous active Inje ct 2 mLs into the vein Two Times Daily [facility] sodium chloride 0.9 % SOLN 100 mL with meropenem 1 g SOLR 2, 000 mg 02/08/2021 12:00:00 AM EDT 2000 mg Intravenous active Inject 2,000 mg into the vein every 8 (eight) hours [facility] gabapentin 300 MG Oral Capsule Gabapentin 300 MG Oral Capsule (NEURONTIN) Gabapentin 300 MG Oral Capsule (NEURONTIN) 02/08/2021 12:00:00 AM EDT 300 mg Oral active Take 1 capsule by [facility] Two Times Daily [facility] apixaban 5 MG Oral Tablet apixaban (ELIQUIS) tablet 5 mg apixaban (ELIQUIS) tablet 5 mg 02/07/2021 09:00:00 PM EDT 5 mg Oral a ctive Atrial Fibrillation 5 mg, Oral, 2 Times Daily, I ndications: Atrial Fibrillation, First dose on [facility] 02/07/21 at 2100, For 30 days [facility] Atrial Fibrillation Medication administered onsite 2 ML Midazolam 1 MG/ML Injection midazolam (PF) (VERSE D) injection midazolam (PF) (VERSED) injection 02/07/2021 02:37:59 PM EDT completed Code/Trauma Medication, Starting on [facility] 02/07/[address] [place] [address] Medication administered onsite fentaNYL (SUBLIMAZE) (PF) injection [id number] 02/07/2021 02:37:27 PM EDT completed Code/Trauma Medicati on, Starting on [facility] 02/07/[address] [place] [address] Medication administered onsite furosemide (LASIX) injection 20 mg [id number] 02/07/2021 12:00:00 PM EDT 20 mg Intravenous aborted 20 mg, I ntravenous, Every 8 hours, First dose (after last modification) on [facility] 02/07/21 at 1200, For 30 days
Notify provider if systolic blood pressure less than: 110 [facility] Medication administered onsite furosemide (LASIX) injection 20 mg [id number] 02/07/2021 09:00:00 AM EDT 20 mg Intravenous aborted 20 mg, I ntravenous, Daily Standard, First dose on [facility] 02/07/21 at 0900, For 3 doses
Notify provider if systolic blood pressure less than: 110 [facility] Medication administered onsite Fluconazole 200 MG Oral Tablet fluconazole (DIFLUCAN) tablet 200 mg fluconazole (DIFLUCAN) tablet 200 mg 02/07/2021 09:00:00 AM EDT 200 mg Oral active 200 mg, Oral, Daily Standard, First dos e (after last reorder) on [facility] 02/07/21 at 0900, For 30 days [facility] Medication administered onsite meropenem (MERREM) 2,000 mg in sodium chloride 0.9 % 100 mL IVPB 02/06/2021 05:00:00 PM EDT 2 g Intravenous active 2,000 mg (2 g), Intravenous, Every 8 hours, First dose (after last modification) on Thu02/06/21 at 1700, For 30 doses [facility] Medication administered onsite furosemide (LASIX) injection 20 mg [id number] 02/06/2021 10:45:00 AM EDT 20 mg Intravenous completed 20 mg, I ntravenous, Once, On Thu02/06/21 at 1045, For 1 dose
Notify provider if systolic blood pressure less than: 90 [facility] Medication administered onsite Metoprolol Tartrate 25 MG Oral Tablet me toprolol tartrate (LOPRESSOR) tablet 25 mg metoprolol tartrate (LOPRESSOR) tablet 25 mg 02/05/2021 09:45:00 AM EDT 25 mg Oral aborted 25 mg, Ora l, 2 Times Daily, First dose (after last modification) on Thu02/05/21 at 0945, For 51 doses [facility] Medication administered onsite Fluconazole 50 MG Oral Tablet fluconazole (DIFLUCAN) t ablet 200 mg fluconazole (DIFLUCAN) tablet 200 mg 02/05/2021 09:00:00 AM EDT 200 mg Oral aborted 200 mg, Oral, Daily Standard, First dose on Thu at 0900, For 30 days [facility] Medication administered onsite midodrine hydrochloride 10 MG Oral Tablet midodrine (P ROAMATINE) tablet 10 mg midodrine (PROAMATINE) tablet 10 mg 02/05/2021 05:15:00 AM EDT 10 mg Oral aborted 10 mg, Oral, Three T imes Daily - Midodrine, First dose on Thu02/05/21 at 0515, For 30 days [facility] Medication administered onsite norepinephrine (LEVOPHED) 8-5 MG/250ML-% in dextrose 5 % inf usion [id number] 02/02/2021 11:00:00 AM EDT ug/min Intravenous aborted 2-40 mcg/min (3.75-75 mL/hr, rounded to 3.8-75 mL/hr), Intravenous, at 3.8-75 mL/hr, Continuous, Starting on Thu02/02/21 at 1100, For 30 days [facility] Medication administered onsite sodium chloride 0.9 % bolus 500 mL [id number] 02/02/2021 09:30:00 AM EDT 500 mL Intravenous completed 500 mL, Intravenous, Once, On Thu02/02/21 at 0930, For 1 dose [facility] Medication administered onsite Aspirin 81 MG Chewable Tablet aspirin chewable tablet 81 mg aspirin chewable tablet 81 mg 02/02/2021 09:00:00 AM EDT 81 mg Oral activ e 81 mg, Oral, Daily Standard, First dose on Thu02/02/21 at 0900, For 30 days
Chew tablet before swallowing.
[facility] Medication administered onsite heparin (porcine) 5000 UNIT/ML injection 5,000 Units [id number] 02/01/2021 09:00:00 PM EDT 5000 U Subcutaneous aborted 5,000 Units, Subcutaneous, 2 Times Daily, First dose on Thu02/01/21 at 2100, For 30 days [facility] Medication administered onsite micafungin in NaCl 0.9 % 100 mL infusion 100 mg 2020 07:15:00 PM EDT 100 mg Intravenous aborted 100 mg, Intravenous, Every 24 hours, First dose on Thu02/01/21 at 1915, For 10 days [facility] Medication administered onsite Prednisone 20 MG Oral Tablet predniSONE (DELTASONE) ta blet 10 mg predniSONE (DELTASONE) tablet 10 mg 02/01/2021 10:30:00 AM EDT 10 mg Oral aborted 10 mg, Oral, Daily Standard, First dose on Thu02/01/21 at 1030, For 30 days
Take with food.
[facility] Medication administered onsite Metoprolol Tartrate 50 MG Oral Tablet metoprolol (LOPR ESSOR) tablet 50 mg metoprolol (LOPRESSOR) tablet 50 mg 02/01/2021 09:00:00 AM EDT 50 mg Oral aborted 50 mg, Oral, 2 Times Daily, First dose on Thu02/01/21 at 0900, For 30 days [facility] Medication administered onsite Metoprolol Tartrate 1 MG/ML Injectable S olution metoprolol (LOPRESSOR) injection 5 mg metoprolol (LOPRESSOR) injection 5 mg 01/31/2021 05:15:00 PM EDT 5 mg Intravenous aborted 5 mg, Intrave nous, Every 6 hours, First dose on Thu01/31/21 at 1715, For 30 days
Dilute in 25 or 50 mL NS and administer over 30 minutes. If giving IVP, must be administered under the direct supervision of a medical provider and patient on a ekg monitor tech.
[facility] Medication administered onsite Methylprednisolone 40 MG/ML Injectable S olution methylPREDNISolone sodium succinate (SOLU-MEDROL) injection 8 mg methylPREDNISolone sodium succinate (SOLU-MEDROL) injection 8 mg 01/31/2021 09:30:00 AM EDT 8 mg Intr avenous aborted 8 mg, Intravenous, D aily Standard, First dose on Thu01/31/21 at 0930, For 5 days [facility] Medication administered onsite sodium chloride 0.9 % bolus 500 mL [id number] 01/31/2021 08:15:00 AM EDT 500 mL Intravenous completed 500 mL, Intravenous, Once, On Thu01/31/21 at 0815, For 1 dose [facility] Medication administered onsite sodium chloride (preservative free) 0.9 % flush 5 mL [id number] 01/30/2021 09:00:00 PM EDT 5 mL Intracatheter active 5 mL, Intracatheter, 2 Times Daily, First dose on Thu01/30/21 at 2100, For 30 days
Flush tube (Antegrade/forward flushing only) BID with 5-10cc Normal Saline.
[facility] Medication administered onsite propofol (DIPRIVAN) infusion 1,000 mg/100 mL [id number] 01/30/2021 06:30:00 PM EDT ug/kg/min Intravenous aborted 1 0-80 mcg/kg/min 185.5 kg (11.13-89.04 mL/hr, rounded to 11.1-89 mL/hr), Intravenous, at 11.1-89 mL/hr, Continuous, Starting on Thu01/30/21 at 1830, For 30 days
Starting dose = 10 mcg/kg/minTitrate to maintain RASS of -2 Increase by 5-10 mcg/kg/minMax Dose = 80 mcg/kg/min
[facility] Medication administered onsite sodium bicarbonate 8.4 % 2 mL in lidocaine (XYLOCAINE) 2 % 8 mL injection 01/30/2021 03:37:00 PM EDT Infiltration complete d Infiltration, Code/Trauma Medication, Starting on Thu01/30/21 at 1537 [facility] Medication administered onsite albumin human (ALBUMINAR) 5 % bottle 25 g [id number] 01/30/2021 1 1:00:00 AM EDT 25 g Intravenous completed 25 g, In travenous, at 250 mL/hr, Three Times Daily Standard, First dose (after last modification) on Thu01/30/21 at 1100, For 1 day [facility] Medication administered onsite furosemide (LASIX) 1 mg/mL in dextrose 5 % 250 mL infusion 01/30/2021 10:45:00 AM EDT 5 mg/h Intravenous aborted 5 mg /hr (5 mL/hr), Intravenous, at 5 mL/hr, Continuous, Starting on Thu01/30/21 at 1045, For 30 days
Starting dose: 5 mg/hr Increase or decrease rate by 50 % to achieve titration target. Maximum dose: 20 mg/h
Notify provider if systolic blood pressure less than: 90 [facility] Medication administered onsite sodium chloride 0.9 % bolus 250 mL [id number] 01/30/2021 06:30:00 AM EDT 250 mL Intravenous completed 250 mL, Intravenous, Once, On Thu01/30/21 at 0630, For 1 dose [facility] Medication administered onsite iohexol (OMNIPAQUE) 300 MG/ML contrast injection 100 mL [id number] 01/29/2021 05:00:00 PM EDT 100 mL Given by IV completed 100 mL, Given by IV, 1 TIME IMAGING, On Thu01/29/21 at 1700, For 1 dose [facility] Medication administered onsite meropenem (MERREM) 2,000 mg in sodium chloride 0.9 % 100 mL IVPB 01/29/2021 01:00:00 AM EDT 2 g Intravenous aborted 2,000 mg (2 g), Intravenous, Every 8 hours, First dose on Thu01/29/21 at 0100, For 10 days [facility] Medication administered onsite 50 ML Magnesium Sulfate 40 MG/ML Injecti on magnesium sulfate infusion 2 g/50 mL (premix) magnesium sulfate infusion 2 g/50 mL (premix) 01/29/20 06:16:26 PM EDT 16 meq Intravenous aborted 16 m Eq, Intravenous, Every 1 hour PRN, for serum magnesium < 2 mEq/L, Starting on Thu01/28/21 at 1816, For 8 days 19 hours
Serum Magnesium 1.6 - 1.9: give 16 mEq (2 g) q1h x 2 Serum Magnesium 1.5 and less: give 16 mEq (2 g) q1h x 3 *For ICU Stay only, discontinue on transfer*
[facility] Medication administered onsite piperacillin-tazobactam (ZOSYN) 18 g in sodium chloride 0.9 % 500 mL infusion 01/28/2021 12:00:00 PM EDT 18 g Intravenous aborted 18 g, Intravenous, Administer over 24 Hours, Every 24 hours, First dose on Thu01/28/21 at 1200, For 5 days [facility] Medication administered onsite vancomycin (VANCOCIN) 2,000 mg in sodium chloride 0.9 % 500 mL IVPB 01/28/2021 09:30:00 AM EDT 2000 mg Intravenous completed 2,000 mg, Intravenous, Administer over 120 Minutes, Once, On Thu01/28/21 at 0930, For 1 dose [facility] Medication administered onsite Metoprolol Tartrate 1 MG/ML Injectable S olution metoprolol (LOPRESSOR) 5 MG/5ML injection metoprolol (LOPRESSOR) 5 MG/5ML injection 01/27/2021 07:47:4 8 PM EDT active Starting on Thu01/27/21 at 1947, For 1 dose
Amado Dumont: cabinet override
[facility] Medication administered onsite Metoprolol Tartrate 1 MG/ML Injectable S olution metoprolol (LOPRESSOR) injection 5 mg metoprolol (LOPRESSOR) injection 5 mg 01/27/2021 07:45:00 PM EDT 5 mg Intravenous active 5 mg, Intrave nous, Once, On Thu01/27/21 at 1945, For 1 dose
Dilute in 25 or 50 mL NS and administer over 30 minutes. If giving IVP, must be administered under the direct supervision of a medical provider and patient on a ekg monitor tech.
[facility] Medication administered onsite vancomycin (VANCOCIN) 2,000 mg in sodium chloride 0.9 % 500 mL IVPB 01/27/2021 05:15:00 PM EDT 2000 mg Intravenous completed 2,000 mg, Intravenous, Administer over 120 Minutes, Once, On Thu01/27/21 at 1715, For 1 dose [facility] Medication administered onsite Albuterol 0.833 MG/ML / Ipratropium Brom w[place]ka 0.167 MG/ML Inhalant Solution ipratropium-albuterol (DUONEB) 0.5-2.5 (3) MG/3ML nebulizer solution 3 mL ipratropium-albuterol (DUONEB) 0.5-2.5 (3) MG/3ML nebulizer solution 3 mL 01/27/2021 04:00:00 PM EDT 3 mL Nebulization complete d 3 mL, Nebulization, Every 8 hours, First dose on Thu01/27/21 at 1600, For 4 days
For Adults Q8 Hours is Hospital Standard, all orders will be changed to this unless MARI is selected 'Yes' below.
[facility] Medication administered onsite 150 ML Levofloxacin 5 MG/ML Injection le voFLOXacin in D5W (LEVAQUIN) infusion 750 mg levoFLOXacin in D5W (LEVAQUIN) infusion 750 mg 021 10:00:00 AM EDT 750 mg Intravenous aborted 750 mg, Intravenous, at 100 mL/hr, Every 24 hours, First dose on Thu01/27/21 at 1000, For 4 doses
Discouraged Uses: Treatment of UTI
[facility] Medication administered onsite levothyroxine (SYNTHROID) tablet 212.5 mcg 01/27/2021 06:00:00 AM EDT 212.5 ug Oral active 212.5 mcg, Oral, Daily at 0600, First dose (after last modification) on Thu01/27/21 at 0600, For 24 doses [facility] Medication administered onsite vasopressin (PITRESSIN) 20 Units in sodi um chloride 0.9 % 100 mL (0.2 Units/mL) infusion 01/27/2021 02:15:00 AM EDT 0.04 U/min Intravenous aborted 0.04 Units/min (12 mL/hr), Intravenous, at 12 mL/hr, Continuous, Starting on 01/27/21 at 0215, For 30 days [facility] Medication administered onsite vancomycin (VANCOCIN) 1500 mg in NaCl 0.9 % 512 mL (premix) [id number] 01/27/2021 01:15:00 AM EDT 1500 mg Intravenous aborted 1,500 mg, Intravenous, Administer over 90 Minutes, Every 12 hours, First dose on 01/27/21 at 0115, For 3 doses [facility] Medication administered onsite Acetaminophen 10 MG/ML Injectable Soluti on acetaminophen (OFIRMEV) infusion 1,000 mg acetaminophen (OFIRMEV) infusion 1,000 mg 01/27/2021 12:45:00 AM EDT 1000 mg Intravenous completed 1,000 mg , Intravenous, Administer over 15 Minutes, Once, On Thu01/27/21 at 0045, For 1 dose
Maximum daily dose of acetaminophen from all sources 3,000 mg daily.
[facility] Medication administered onsite norepinephrine (LEVOPHED) 8-5 MG/250ML-% in dextrose 5 % inf usion [id number] 01/27/2021 12:00:00 AM EDT ug/min Intravenous aborted 2-20 mcg/min (3.75-37.5 mL/hr, rounded to 3.8-37.5 mL/hr), Intravenous, at 3.8-37.5 mL/hr, Continuous, Starting on Thu01/27/21 at 0000, For 30 days [facility] Medication administered onsite furosemide (LASIX) injection 20 mg [id number] 01/27/2021 12:00:00 AM EDT 20 mg Intravenous completed 20 mg, I ntravenous, Once, On Thu01/27/21 at 0000, For 1 dose
Notify provider if systolic blood pressure less than: 90 [facility] Medication administered onsite Metoprolol Tartrate 1 MG/ML Injectable S olution metoprolol (LOPRESSOR) injection 5 mg metoprolol (LOPRESSOR) injection 5 mg 01/26/2021 10:00:00 PM EDT 5 mg Intravenous active 5 mg, Intrave nous, Once, On 01/26/21 at 2200, For 1 dose
Dilute in 25 or 50 mL NS and administer over 30 minutes. If giving IVP, must be administered under the direct supervision of a medical provider and patient on a ekg monitor tech.
[facility] Medication administered onsite 0.4 ML Enoxaparin sodium 100 MG/ML Prefi lled Syringe enoxaparin sodium (LOVENOX) injection 40 mg enoxaparin sodium (LOVENOX) injection 40 mg 01/26/2021 03:00:00 PM EDT 40 mg Subcutaneous aborted 40 mg, Subcutaneous, Daily Standard, First dose on 01/26/21 at 1500, For 30 days [facility] Medication administered onsite Acetaminophen 325 MG Oral Tablet acetaminophen (TYLENO L) tablet 650 mg acetaminophen (TYLENOL) tablet 650 mg 01/26/2021 01:37:51 PM EDT 65 0 mg Oral aborted 650 mg, Oral, E very 6 hours PRN, Mild Pain (Pain Scale Score 1- 3), Starting on 01/26/21 at 1337, For 30 days
Maximum daily dose of acetaminophen is 3,000 mg from all sources in 24 hours.
[facility] Medication administered onsite potassium chloride (K-DUR) dissolvable tablet 40 mEq 22390-7 99-01/26/2021 09:30:00 AM EDT 40 meq Oral completed 40 mEq, Oral, Once, On 01/26/21 at 0930, For 1 dose
May be dissolved in water for patients with a G- Tube or unable to swallow. If concern for clogging G-Tube, may contact Pharmacy to switch formulation to a powder packet.
[facility] Medication administered onsite sodium chloride 0.9 % bolus 500 mL [id number] 01/26/2021 09:00:00 AM EDT 500 mL Intravenous completed 500 mL, Intravenous, Once, On 01/26/21 at 0900, For 1 dose [facility] Medication administered onsite calcium gluconate in NaCl 0.9 % infusion 1 g/50 mL [id number] 01/26/2021 06:30:00 AM EDT 1 g Intravenous completed 1 g, Intravenous, Administer over 1 Hours, Once, On 01/26/21 at 0630, For 1 dose
Dosed in mg of calcium gluconate. 1 g calcium gluconate = 93 mg elemental calcium = 4.65 mEq elemental calcium.
[facility] Medication administered onsite Potassium Chloride 0.04 MEQ/ML / Sodium Chloride 0.154 MEQ/ML Injectable Solution 0.9 % NaCl with KCl 40 mEq infusion 0.9 % NaCl with KCl 40 mEq infusion 01/26/2021 06:30:00 AM EDT Intravenous aborte d at 50 mL/hr, Intravenous, Continuous, Starting on 01/26/21 at 0630, For 6 days [facility] Medication administered onsite sodium chloride 0.9 % bolus 250 mL 01/26/2021 04:15:00 AM EDT 250 mL Intravenous completed 250 mL, Intravenous, Once, On 01/26/21 at 0415, For 1 dose [facility] Medication administered onsite Metoprolol Tartrate 1 MG/ML Injectable S olution metoprolol (LOPRESSOR) injection 5 mg metoprolol (LOPRESSOR) injection 5 mg 01/26/2021 04:00:00 AM EDT 5 mg Intravenous active 5 mg, Intrave nous, Once, On 01/26/21 at 0400, For 1 dose
Dilute in 25 or 50 mL NS and administer over 30 minutes. If giving IVP, must be administered under the direct supervision of a medical provider and patient on a ekg monitor tech.
[facility] Medication administered onsite Metoprolol Tartrate 1 MG/ML Injectable S olution metoprolol (LOPRESSOR) injection 5 mg metoprolol (LOPRESSOR) injection 5 mg 01/25/2021 11:45:00 PM EDT 5 mg Intravenous active 5 mg, Intrave nous, Once, On Thu01/25/21 at 2345, For 1 dose
Dilute in 25 or 50 mL NS and administer over 30 minutes. If giving IVP, must be administered under the direct supervision of a medical provider and patient on a ekg monitor tech.
[facility] Medication administered onsite sodium chloride 0.9 % bolus 1,000 mL 01/25/2021 11:00: 00 PM EDT 1000 mL Intravenous completed 1,000 mL , Intravenous, Once, On Thu01/25/21 at 2300, For 1 dose [facility] Medication administered onsite lidocaine (XYLOCAINE) 2 % injection [id number] 01/25/2021 08:07:00 PM EDT completed Code/Trauma Medicati on, Starting on Thu01/25/21 at 2007 [facility] Medication administered onsite iohexol (OMNIPAQUE) 300 MG/ML contrast injection 100 mL [id number] 02 01/25/2021 12:15:00 PM EDT 100 mL Given by IV completed 100 mL, Given by IV, 1 TIME IMAGING, On Thu01/25/21 at 1215, For 1 dose [facility] Medication administered onsite sodium chloride 0.9 % bolus 500 mL [id number] 01/25/2021 10:45:00 AM EDT 500 mL Intravenous completed 500 mL, Intravenous, Once, On Thu01/25/21 at 1045, For 1 dose [facility] Medication administered onsite potassium chloride (K-DUR) dissolvable tablet 40 mEq [id number] 99-01/25/2021 08:15:00 AM EDT 40 meq Oral completed 40 mEq, Oral, Once, On Thu01/25/21 at 0815, For 1 dose
May be dissolved in water for patients with a G- Tube or unable to swallow
[facility] Medication administered onsite iohexol (bariatric reduced volume) (OMNI PAQUE) 240 mg/mL contrast mixed with flavored drink 10 mL [id number] 01/25/2021 07:30:30 AM EDT 10 mL O ral completed 10 mL, Oral, IMG onc e PRN, Contrast, Starting on Thu01/25/21 at 0730, For [address] Scanner prior. weight caller to CT. Dilute 10 ML iohexol 240 in 140 ML liquid. Administer over a 15 minute time period per protocol.
[facility] Medication administered onsite iohexol (bariatric reduced volume) (OMNI PAQUE) 240 mg/mL contrast mixed with flavored drink 10 mL [id number] 01/25/2021 07:30:24 AM EDT 10 mL O ral completed 10 mL, Oral, IMG onc e PRN, Contrast, Starting on Thu01/25/21 at 0730, For [address] to tell RN administration time of first dose. Dilute 10 ML iohexol 240 in 140 ML distilled water. Administer over a 15 minute time period starting Now per protocol.
[facility] Medication administered onsite Potassium Chloride 0.04 MEQ/ML / Sodium Chloride 0.154 MEQ/ML Injectable Solution 0.9 % NaCl with KCl 40 mEq infusion 0.9 % NaCl with KCl 40 mEq infusion 01/25/2021 06:15:00 AM EDT Intravenous aborte d at 50 mL/hr, Intravenous, Continuous, Starting on Thu01/25/21 at 0615, For 6 days [facility] Medication administered onsite pantoprazole 4 MG/ML Injectable Solution pantoprazole (PROTONIX) injection 40 mg pantoprazole (PROTONIX) injection 40 mg 01/24/2021 05:00:00 PM EDT 40 mg Intravenous aborted 40 mg, Intrav enous, Daily Standard, First dose on Thu01/24/21 at 1700, For 30 days [facility] Medication administered onsite piperacillin-tazobactam in NaCl 0.9 % 100 mL infusion 4.5 g 01/24/2021 12:00:00 PM EDT 4.5 g Intravenous aborted 4.5 g, Intravenous, Administer over 4 Hours, Every 8 hours, First dose on Thu01/24/21 at 1200, For 27 doses [facility] Medication administered onsite fentaNYL (SUBLIMAZE) (PF) injection 25 mcg [id number] 01/23/2021 01:28:47 PM EDT 25 ug Intravenous completed 25 mcg, Intravenous, Every 3 hours PRN, Moderate Pain (Pain Scale Score 4-6), Starting on Thu01/23/21 at 1328, For 3 days [facility] Medication administered onsite potassium chloride (K-DUR) dissolvable tablet 40 mEq [id number] 99-01/23/2021 10:45:00 AM EDT 40 meq Oral completed 40 mEq, Oral, Once, On Thu01/23/21 at 1045, For 1 dose
Do not crush or chew
[facility] Medication administered onsite Digoxin 0.125 MG Oral Tablet digoxin (LANOXIN) tablet 125 mcg digoxin (LANOXIN) tablet 125 mcg 01/23/2021 09:00:00 AM EDT 125 ug Oral abo rted 125 mcg, Oral, Daily Standard, First dose on Thu01/23/21 at 0900, For 30 days
Check vital signs before administering
[facility] Medication administered onsite potassium & sodium phosphates (PHOS-NAK) 280-160-250 MG 1 pa cket [id number] 01/22/2021 10:00:00 PM EDT 1 {packet} Oral completed 1 packet, Oral, Four Times Daily-With Meals & Nightly, First dose on Thu01/22/21 at 2200, For 4 doses
Dissolve in 75mls of water or juice.
Each 250 mg packet contains: 250 mg (8 mmol) elemental phosphorous, 164 mg (7.1 mEq) sodium, 278 mg (7.1 mEq) potassium.
[facility] Medication administered onsite apixaban 5 MG Oral Tablet apixaban (ELIQUIS) tablet 5 mg apixaban (ELIQUIS) tablet 5 mg 01/22/2021 09:00:00 PM EDT 5 mg Oral a borted Atrial Fibrillation 5 mg, Oral, 2 Times Daily, I ndications: Atrial Fibrillation, First dose on Thu01/22/21 at 2100, For 30 days [facility] Atrial Fibrillation Medication administered onsite Furosemide 40 MG Oral Tablet furosemide (LASIX) tablet 40 mg furosemide (LASIX) tablet 40 mg 01/22/2021 11:00:00 AM EDT 40 mg Oral abort ed 40 mg, Oral, Daily Standard, First dose on Thu01/22/21 at 1100, For 30 days [facility] Medication administered onsite sacubitril 49 MG / valsartan 51 MG Oral Tablet sacubitril-valsartan (ENTRESTO) 49-51 MG per tablet 0.5 tablet sacubitril-valsartan (ENTRESTO) 49-51 MG per tablet 0.5 tablet 01/22/2021 10:30:00 AM EDT 0.5 {tbl} Oral aborted 0.5 tablet, Oral, 2 Times Daily, First dose on Thu01/22/21 at 1030, For 30 days
Note Dosage Strength
[facility] Medication administered onsite Prednisone 20 MG Oral Tablet predniSONE (DELTASONE) ta blet 10 mg predniSONE (DELTASONE) tablet 10 mg 01/22/2021 10:00:00 AM EDT 10 mg Oral aborted 10 mg, Oral, Daily Standard, First dose on Thu01/22/21 at 1000, For 30 days
Take with food.
[facility] Medication administered onsite Metoprolol Tartrate 50 MG Oral Tablet me toprolol tartrate (LOPRESSOR) tablet 50 mg metoprolol tartrate (LOPRESSOR) tablet 50 mg 01/22/2021 09:00:00 AM EDT 50 mg Oral aborted 50 mg, Ora l, 2 Times Daily, First dose on Thu01/22/21 at 0900, For 30 days [facility] Medication administered onsite sodium chloride flush 0.9 % 10 mL [id number] 01/22/2021 08:00:00 AM EDT 10 mL Intravenous active 10 mL, I ntravenous, Every 8 hours, First dose (after last modification) on Thu01/22/21 at 0800, For 89 doses
Verify blood return before use. Flush lines with 10 mL Sodium Chloride 0.9 % routi freda Q8hrs & before and after infusions or blood sampling per policy. Reference CM C-34 Central Lines
[facility] Medication administered onsite sodium chloride flush 0.9 % 10 mL [id number] 01/22/2021 08:00:00 AM EDT 10 mL Intravenous active 10 mL, I ntravenous, Every 8 hours, First dose (after last modification) on Thu01/22/21 at 0800, For 89 doses
Verify blood return before use. Flush lines with 10 mL Sodium Chloride 0.9 % routi freda Q8hrs & before and after infusions or blood sampling per policy. Reference CM C-34 Central Lines
[facility] Medication administered onsite sodium chloride flush 0.9 % 10 mL [id number] 01/22/2021 08:00:00 AM EDT 10 mL Intravenous active 10 mL, I ntravenous, Every 8 hours, First dose (after last modification) on Thu01/22/21 at 0800, For 89 doses
Verify blood return before use. Flush lines with 10 mL Sodium Chloride 0.9 % routi freda Q8hrs & before and after infusions or blood sampling per policy. Reference CM C-34 Central Lines
[facility] Medication administered onsite Metoprolol Tartrate 1 MG/ML Injectable S olution metoprolol (LOPRESSOR) injection 5 mg metoprolol (LOPRESSOR) injection 5 mg 01/22/2021 05:00:00 AM EDT 5 mg Intravenous active 5 mg, Intrave nous, Once, On Thu01/22/21 at 0500, For 1 dose
Dilute in 25 or 50 mL NS and administer over 30 minutes. If giving IVP, must be administered under the direct supervision of a medical provider and patient on a ekg monitor tech.
[facility] Medication administered onsite sodium chloride flush 0.9 % 10 mL [id number] 01/21/2021 11:30:00 PM EDT 10 mL Intravenous aborted 10 mL, I ntravenous, Every 8 hours, First dose on Thu01/21/21 at 2330, For 30 days
Verify blood return before use. Flush lines with 10 mL Sodium Chloride 0.9 % routinely Q8hrs & before and after infusions or blood sampling per policy. Reference CM C-34 Central Lines
[facility] Medication administered onsite sodium chloride flush 0.9 % 10 mL [id number] 01/21/2021 11:30:00 PM EDT 10 mL Intravenous aborted 10 mL, I ntravenous, Every 8 hours, First dose on Thu01/21/21 at 2330, For 30 days
Verify blood return before use. Flush lines with 10 mL Sodium Chloride 0.9 % routinely Q8hrs & before and after infusions or blood sampling per policy. Reference CM C-34 Central Lines
[facility] Medication administered onsite sodium chloride flush 0.9 % 10 mL [id number] 01/21/2021 11:26:59 PM EDT 10 mL Intravenous active 10 mL, I ntravenous, PRN, After Parenteral Nutrition, Starting on Thu01/21/21 at 2326, For 30 days
Flush line with 10 mL Sodium Chloride 0.9 % after Parenteral Nutrition (PN).
[facility] Medication administered onsite sodium chloride flush 0.9 % 10 mL [id number] 01/21/2021 11:26:59 PM EDT 10 mL Intravenous active 10 mL, I ntravenous, PRN, flushing, Starting on Thu01/21/21 at 2326, For 30 days
Verify blood return before use. Flush lines with 10 mL Sodium Chloride 0.9 % routinely Q8hrs & before and after infusions or blood sampling per policy. Reference CM C-34 Central Lines
[facility] Medication administered onsite sodium chloride flush 0.9 % 10 mL [id number] 01/21/2021 11:26:59 PM EDT 10 mL Intravenous active 10 mL, I ntravenous, PRN, flushing, Starting on Thu01/21/21 at 2326, For 30 days
Verify blood return before use. Flush lines with 10 mL Sodium Chloride 0.9 % routinely Q8hrs & before and after infusions or blood sampling per policy. Reference CM C-34 Central Lines
[facility] Medication administered onsite sodium chloride flush 0.9 % 10 mL [id number] 01/21/2021 11:26:59 PM EDT 10 mL Intravenous active 10 mL, I ntravenous, PRN, flushing, Starting on Thu01/21/21 at 2326, For 30 days
Verify blood return before use. Flush lines with 10 mL Sodium Chloride 0.9 % routinely Q8hrs & before and after infusions or blood sampling per policy. Reference CM C-34 Central Lines
[facility] Medication administered onsite sodium chloride 0.9 % bag 3-20 mL [id number] 01/21/2021 11:26:59 PM EDT mL Intravenous active 3-20 mL, Intr avenous, at 1-999 mL/hr, PRN, For Medication Administration and Line Clearance, Starting on Thu01/21/21 at 2326, For 30 days
Flush line with sufficient amount of fluid needed based on eap clinician recommendation for specific line size. Rate should be run at the same rate as medication in the line being flushed.
[facility] Medication administered onsite Hydrocortisone 50 MG/ML Injectable Solut ion hydrocortisone sodium succinate (SOLU-CORTEF) (PF) injection 50 mg hydrocortisone sodium succinate (SOLU-CO RTEF) (PF) injection 50 mg 01/21/2021 04:00:00 PM EDT 50 mg Intravenous aborted 50 mg, Intravenous, Every 8 hours, First dose on Thu01/21/21 at 1600, For 2 days [facility] Medication administered onsite Calcium Chloride 0.001 MEQ/ML / Glucose 50 MG/ML / Potassium Chloride 0.004 MEQ/ML / Sodium Chloride 0.103 MEQ/ML / Sodium Lactate 0.028 MEQ/ML Injectable Solution dextrose 5 % in lactated ringers infusion dextrose 5 % in lactated ringers infusion 01/21/2021 02:45:00 PM EDT Intravenous aborted at 50 mL/hr, Intravenous, Continuous, Starting on Thu01/21/21 at 1445, For 30 days [facility] Medication administered onsite ondansetron (ZOFRAN) injection 4 mg [id number] 01/21/2021 02:38:3 9 PM EDT 4 mg Intravenous active 4 mg, In travenous, Every 8 hours PRN, Nausea, Vomiting, Starting on Thu01/21/21 at 1438, For 30 days [facility] Medication administered onsite Calcium Chloride 0.0014 MEQ/ML / Potassi um Chloride 0.004 MEQ/ML / Sodium Chloride 0.103 MEQ/ML / Sodium Lactate 0.028 MEQ/ML Injectable Solution lactated ringers infusion lactated ringers infusion 01/21/2021 11:15:00 AM EDT 50 mL/h Intravenous aborted at 50 mL/hr, Intravenous, Continuous, Starting on Thu01/21/21 at 1115, For 30 days [facility] Medication administered onsite Digoxin 0.25 MG/ML Injectable Solution digoxin (LANOXI N) injection 0.125 mg digoxin (LANOXIN) injection 0.125 mg 01/21/2021 10:15:00 AM EDT 0.125 mg Intravenous aborted 0.125 mg, Int ravenous, Daily Standard, First dose on Thu01/21/21 at 1015, For 30 days [facility] Medication administered onsite TC-99M mebrofenin (CHOLETEC) [id number] 01/21/2021 09:00:00 AM EDT Intravenous completed Intravenous, Once, On Thu01/21/21 at 0900, For 1 dose, Imaging Protocol [facility] Medication administered onsite levothyroxine (SYNTHROID) tablet 225 mcg 01/21/2021 06:00: 00 AM EDT 225 ug Oral aborted 225 mcg, Oral, Daily at 0600, First dose (after last modification) on Thu01/21/21 at 0600, For 30 days [facility] Medication administered onsite Piperacillin 3000 MG / tazobactam 375 MG Injection piperacillin-tazobactam (ZOSYN) IVPB 3.375 g (premix) piperacillin-tazobactam (ZOSYN) IVPB 3.3 75 g (premix) 01/21/2021 04:00:00 AM EDT 3.375 g Intravenous abo rted 3.375 g, Intravenous, Administer over 4 Hours, Every 8 hours, First dose on Thu01/21/21 at 0400, For 5 days
This specific formulation of piperacillin- tazobactam is compatible with Lactated Ringers.
[facility] Medication administered onsite Ibuprofen 400 MG Oral Tablet ibuprofen (MOTRIN) tablet 400 mg ibuprofen (MOTRIN) tablet 400 mg 01/21/2021 01:45:00 AM EDT 400 mg Oral comp leted 400 mg, Oral, Once, On Thu01/21/21 at 0145, For 1 dose
Take with food.
[facility] Medication administered onsite calcium gluconate in NaCl 0.9 % infusion 1 g/50 mL [id number] 01/21/2021 01:45:00 AM EDT 1 g Intravenous completed 1 g, Intravenous, Administer over 1 Hours, Once, On Thu01/21/21 at 0145, For 1 dose
Dosed in mg of calcium gluconate. 1 g calcium gluconate = 93 mg elemental calcium = 4.65 mEq elemental calcium.
[facility] Medication administered onsite norepinephrine (LEVOPHED) 8-5 MG/250ML-% in dextrose 5 % inf usion [id number] 01/21/2021 12:00:00 AM EDT ug/min Intravenous aborted 2-20 mcg/min (3.75-37.5 mL/hr, rounded to 3.8-37.5 mL/hr), Intravenous, at 3.8-37.5 mL/hr, Continuous, Starting on Thu01/21/21 at 0000, For 7 days
Titrate per protocol to maintain MAP greater than 65
[facility] Medication administered onsite iohexol (OMNIPAQUE) 300 MG/ML contrast injection 100 mL [id number] 01/20/2021 06:15:00 PM EDT 100 mL Given by IV completed 100 mL, Given by IV, 1 TIME IMAGING, On [place] 01/20/21 at 1815, For 1 dose [facility] Medication administered onsite piperacillin-tazobactam in NaCl 0.9 % 100 mL infusion 4.5 g 01/20/2021 05:00:00 PM EDT 4.5 g Intravenous completed 4.5 g, Intravenous, Administer over 0.5 Hours, Once, On [place] 01/20/21 at 1700, For 1 dose [facility] Medication administered onsite vancomycin (VANCOCIN) 2,000 mg in sodium chloride 0.9 % 500 mL IVPB 01/20/2021 04:45:00 PM EDT 2000 mg Intravenous completed 2,000 mg, Intravenous, Administer over 120 Minutes, Once, On [place] 01/20/21 at 1645, For 1 dose [facility] Medication administered onsite norepinephrine (LEVOPHED) 8-5 MG/250ML-% in dextrose 5 % inf usion [id number] 01/20/2021 04:30:00 PM EDT ug/min Intravenous completed 2-20 mcg/min (3.75-37.5 mL/hr, rounded to 3.8-37.5 mL/hr), Intravenous, at 3.8-37.5 mL/hr, Once, On 01/20/21 at 1630, For 1 dose
Titrate to maintain MAP > 65
[facility] Medication administered onsite sodium chloride 0.9 % bolus 250 mL [id number] 01/20/2021 04:30:00 PM EDT 250 mL Intravenous completed 250 mL, Intravenous, Once, On 01/20/21 at 1630, For 1 dose [facility] Medication administered onsite fentaNYL (SUBLIMAZE) (PF) injection 25 mcg [id number] 01/20/2021 04:30:00 PM EDT 25 ug Intravenous completed 25 mcg, Intravenous, Once, On 01/20/21 at 1630, For 1 dose [facility] Medication administered onsite 10 mg 01/14/2021 12:00:00 AM EDT tablet 30 TAKE ONE TABLET BY MOUTH EVERY DAY TAKE ONE TABLET BY MOUTH EVERY DAY SOLD: 06/05/2021 [facility] 10 mg 01/14/2021 12:00:00 AM EDT tablet 30 TAKE ONE TABLET BY MOUTH EVERY DAY TAKE ONE TABLET BY MOUTH EVERY DAY SOLD: 01/15/2021 [facility] Prednisone 10 MG Oral Tablet predniSONE 10 MG Oral Tab let (DELTASONE) predniSONE 10 MG Oral Tablet (DELTASONE) 01/14/2021 12:00:00 AM EDT 10 mg Ora l active Take 10 mg by mouth daily [facility] 10 mg 01/14/2021 12:00:00 AM EDT tablet 30 TAKE ONE TABLET BY MOUTH EVERY DAY TAKE ONE TABLET BY MOUTH EVERY DAY SOLD: 07/09/2021 [facility] 10 mg 01/14/2021 12:00:00 AM EDT tablet 30 TAKE ONE TABLET BY MOUTH EVERY DAY TAKE ONE TABLET BY MOUTH EVERY DAY SOLD: 04/02/2021 [facility] 10 mg 01/14/2021 12:00:00 AM EDT tablet 30 TAKE ONE TABLET BY MOUTH EVERY DAY TAKE ONE TABLET BY MOUTH EVERY DAY SOLD: 05/10/2021 [facility] sacubitril 24 MG / valsartan 26 MG Oral Tablet [Entresto] Entresto 24-26 MG Oral Tablet Entresto 24-26 MG Oral Tablet 01/12/2021 12:00:00 AM EDT 1 {tbl} Oral aborted Take 1 tablet by mouth Tw o Times Daily [facility] Furosemide 40 MG Oral Tablet Furosemide 40 MG Oral Tab let (LASIX) Furosemide 40 MG Oral Tablet (LASIX) 01/09/2021 12:00:00 AM EDT 40 mg Oral aborted Take 40 mg by mouth daily [facility] pantoprazole 40 MG Delayed Release Oral Tablet Pantoprazole Sodium 40 MG Oral Tablet Delayed Release (PROTONIX) Pantoprazole Sodium 40 MG Oral Tablet De layed Release (PROTONIX) 01/09/2021 12:00:00 AM EDT 40 mg Oral active Take 40 mg by mouth daily [facility] Fluticasone Propionate 50 MCG/ACT Nasal Suspension (FLONASE) [id number] 01/09/2021 12:00:00 AM EDT 2 {spray} aborted 2 sprays into each nostril once a day. [facility] Betamethasone 0.5 MG/ML / Clotrimazole 1 0 MG/ML Topical Cream Clotrimazole- Betamethasone 1-0.05 % External Cream (LOTRISONE) Clotrimazole-Betamethasone 1- 0.05 % External Cream (LOTRISONE) 01/09/2021 12:00:00 AM EDT Topical active Apply topically Two times daily as needed [facility] Metoprolol Tartrate 50 MG Oral Tablet Dc toprolol Tartrate 50 MG Oral Tablet (LOPRESSOR) Metoprolol Tartrate 50 MG Oral Tablet (LOPRESSOR) 11/2020 12:00:00 AM EDT 75 mg Oral active Take 75 mg by mouth Two Times Daily [facility] 50 mg 12/29/2020 12:00:00 AM EDT tablet 270 TAKE 1 & 1/2 TABLETS BY MOUTH TWO TIMES A DAY TAKE 1 & 1/2 TABLETS BY MOUTH TWO TIMES A DAY SOLD: 01/07/20 21 [facility] 12/19/2020 12:00:00 AM EDT acti ve [facility] ([facility]) Levothyroxine Sodium 0.025 MG Oral Tablet [Synthroid] Synthr oid 12/19/2020 12:00:00 AM EDT ORAL active M [facility] ([facility]) gabapentin 300 MG Oral Capsule Gabapentin 300 MG Oral Capsule (NEURONTIN) Gabapentin 300 MG Oral Capsule (NEURONTIN) 12/14/2020 12:00:00 AM EDT 300 mg Oral aborted Take 300 mg by mouth Three times daily [facility] Finasteride 5 MG Oral Tablet Finasteride 5 MG Oral Tab let (PROSCAR) Finasteride 5 MG Oral Tablet (PROSCAR) 12/14/2020 12:00:00 AM EDT 5 mg Oral aborted Take 5 mg by mouth daily [facility] Levothyroxine Sodium 0.2 MG Oral Tablet Levothyroxine Sodium 200 MCG Oral Tablet (SYNTHROID) Levothyroxine Sodium 200 MCG Oral Tablet (SYNTHROID) 0 12/14/2020 12:00:00 AM EDT 200 ug Oral active Take 200 mcg by mouth daily with 25 mcg tablet. [facility] 1-0.05 % 12/03/2020 12:00:00 AM EST cream 15 APPLY TWO TIMES A DAY NEEDED APPLY TWO TIMES A DAY NEEDED SOLD: 12/03/2020 [facility] Betamethasone 0.5 MG/ML / Clotrimazole 10 MG/ML Topica l Cream 1-0.05 % CLOTRIMAZOLE/BETAMETHASONE DIP 12/03/2020 12:00:00 AM EST cream 15 APPLY TWO TIMES A DAY NEEDED APPLY TWO TIMES A DAY NEEDED SOLD: 01/10/2021 [facility] Betamethasone 0.5 MG/ML / Clotrimazole 10 MG/ML Topica l Cream 1-0.05 % CLOTRIMAZOLE/BETAMETHASONE DIP 12/03/2020 12:00:00 AM EST cream 15 APPLY TWO TIMES A DAY NEEDED APPLY TWO TIMES A DAY NEEDED SOLD: 03/04/2021 [facility] Betamethasone 0.5 MG/ML / Clotrimazole 10 MG/ML Topica l Cream 1-0.05 % CLOTRIMAZOLE/BETAMETHASONE DIP 12/03/2020 12:00:00 AM EST cream 15 APPLY TWO TIMES A DAY NEEDED APPLY TWO TIMES A DAY NEEDED SOLD: 04/23/2021 [facility] Rosuvastatin calcium 20 MG Oral Tablet R osuvastatin Calcium 20 MG Oral Tablet (CRESTOR) Rosuvastatin Calcium 20 MG Oral Tablet (CRESTOR) 12/01 12:00:00 AM EST 20 mg Oral active Take 20 mg by timothy th daily [facility] Digoxin 0.125 MG Oral Tablet Digoxin 125 MCG Oral Tabl et (LANOXIN) Digoxin 125 MCG Oral Tablet (LANOXIN) 12/01/2020 12:00:00 AM EST 125 ug Oral aborted Take 125 mcg by mouth daily [facility] Potassium Chloride 10 MEQ Extended Release Oral Capsule POTA SSIUM CHLORIDE 11/19/2020 12:00:00 AM EST capsule, extended release 90 TAKE ONE CAPSULE BY MOUTH EVERY DAY TAKE ONE CAPSULE BY MOUTH EVERY DAY SOLD: 11/23/2020 [facility] Potassium Chloride 10 MEQ Extended Relea se Oral Capsule Potassium Chloride ER 10 MEQ Oral Capsule Extended Release (MICRO-K) Potassium Chloride ER 10 MEQ Oral Capsule Extended Release (MICRO-K) 11/19/2020 12:00:00 AM EST 10 meq Oral aborted Take 10 mEq by mouth daily [facility] apixaban 5 MG Oral Tablet [Eliquis] Eliquis 5 MG Oral Tablet Eliquis 5 MG Oral Tablet 10/19/2020 12:00:00 AM EST 5 mg Oral active Take 5 mg by mouth Two Times Daily [facility] Finasteride 5 MG Oral Tablet FINASTERIDE 09/24/2020 12:00:00 AM EST ta blet 90 TAKE ONE TABLET BY MOUTH EVERY DAY TAKE ONE TABLET BY MOUTH EVERY DAY SOLD: 12/21/2020 [facility] pantoprazole 40 MG Delayed Release Oral Tablet PANTOPRAZOLE SODIUM 09/24/2020 12:00:00 AM EST tablet,delayed release (DR/EC) 90 T FIFI ONE TABLET BY MOUTH EVERY DAY TAKE ONE TABLET BY MOUTH EVERY DAY SOLD: 01/10/2021 [facility] Finasteride 5 MG Oral Tablet FINASTERIDE 09/24/2020 12:00:00 AM EST ta blet 90 TAKE ONE TABLET BY MOUTH EVERY DAY TAKE ONE TABLET BY MOUTH EVERY DAY SOLD: 04/23/2021 [facility] pantoprazole 40 MG Delayed Release Oral Tablet PANTOPRAZOLE SODIUM 09/24/2020 12:00:00 AM EST tablet,delayed release (DR/EC) 90 T FIFI ONE TABLET BY MOUTH EVERY DAY TAKE ONE TABLET BY MOUTH EVERY DAY SOLD: 09/24/2020 [facility] Finasteride 5 MG Oral Tablet FINASTERIDE 09/24/2020 12:00:00 AM EST ta blet 90 TAKE ONE TABLET BY MOUTH EVERY DAY TAKE ONE TABLET BY MOUTH EVERY DAY SOLD: 09/24/2020 [facility] pantoprazole 40 MG Delayed Release Oral Tablet PANTOPRAZOLE SODIUM 09/24/2020 12:00:00 AM EST tablet,delayed release (DR/EC) 90 T FIFI ONE TABLET BY MOUTH EVERY DAY TAKE ONE TABLET BY MOUTH EVERY DAY SOLD: 06/05/2021 [facility] Levothyroxine Sodium 0.025 MG Oral Table t Levothyroxine Sodium 25 MCG Oral Tablet (SYNTHROID) Levothyroxine Sodium 25 MCG Oral Tablet (SYNTHROID) 09/22/2020 12:00:00 AM EST 25 ug Oral active Take 25 mcg by mouth Daily with 200 mcg tablet. [facility] Rosuvastatin calcium 20 MG Oral Tablet ROSUVASTATIN CALCIUM 08/27/2020 12:00:00 AM EST tablet 90 TAKE ONE TABLET BY MOUTH VERITO DAY TAKE ONE TABLET BY MOUTH EVERY DAY SOLD: 08/29/2020 [facility] Rosuvastatin calcium 20 MG Oral Tablet ROSUVASTATIN CALCIUM 08/27/2020 12:00:00 AM EST tablet 90 TAKE ONE TABLET BY MOUTH VERITO DAY TAKE ONE TABLET BY MOUTH EVERY DAY SOLD: 12/03/2020 [facility] Digoxin 0.125 MG Oral Tablet 125 mcg (0.125 mg) DIGOXIN 08/27/2020 12:00:00 AM EST tablet 90 TAKE ONE TABLET BY MOUTH VERITO DAY TAKE ONE TABLET BY MOUTH EVERY DAY SOLD: 08/29/2020 [facility] Rosuvastatin calcium 20 MG Oral Tablet Rosuvastatin Calcium 08/27/2020 12:00:00 AM EST active [facility] ([facility] Digoxin 0.125 MG Oral Tablet 125 mcg (0.125 mg) DIGOXIN 08/27/2020 12:00:00 AM EST tablet 90 TAKE ONE TABLET BY MOUTH VERITO RY DAY TAKE ONE TABLET BY MOUTH EVERY DAY SOLD: 12/03/2020 [facility] Rosuvastatin calcium 20 MG Oral Tablet ROSUVASTATIN CALCIUM 08/27/2020 12:00:00 AM EST tablet 90 TAKE ONE TABLET BY MOUTH VERITO RY DAY TAKE ONE TABLET BY MOUTH EVERY DAY SOLD: 07/09/2021 [facility] Rosuvastatin calcium 20 MG Oral Tablet ROSUVASTATIN CALCIUM 08/27/2020 12:00:00 AM EST tablet 90 TAKE ONE TABLET BY MOUTH VERITO DAY TAKE ONE TABLET BY MOUTH EVERY DAY SOLD: 04/09/2021 [facility] Oxygen 08/21/2020 12:00:00 AM EST active [facility] ([facility], ) 0.4 mg 08/11/2020 12:00:00 AM EST capsule 90 TAKE ONE CAPSULE BY MOUTH EVERY DAY TAKE ONE CAPSULE BY MOUTH EVERY DAY SOLD: 06/18/2021 [facility] 0.4 mg 08/11/2020 12:00:00 AM EST capsule 90 TAKE ONE CAPSULE BY MOUTH EVERY DAY TAKE ONE CAPSULE BY MOUTH EVERY DAY SOLD: 11/07/2020 [facility] 0.4 mg 08/11/2020 12:00:00 AM EST capsule 90 TAKE ONE CAPSULE BY MOUTH EVERY DAY TAKE ONE CAPSULE BY MOUTH EVERY DAY SOLD: 03/21/2021 [facility] 0.4 mg 08/11/2020 12:00:00 AM EST capsule 90 TAKE ONE CAPSULE BY MOUTH EVERY DAY TAKE ONE CAPSULE BY MOUTH EVERY DAY SOLD: 08/15/2020 [facility] 25 mcg 06/26/2020 12:00:00 AM EDT tablet 90 TAKE ONE TABLET BY MOUTH EVERY DAY WITH 200MCG TAKE ONE TABLET BY MOUTH EVERY DAY WITH 200MCG SOLD: [facility] 50 mcg/actuation 06/26/2020 12:00:00 AM EDT spray,suspension 48 SPRAY 2 SPRAYS IN EACH NOSTRIL ONCE DAILY SPRAY 2 SPRAYS IN EACH NOSTRIL ONCE DAILY SOLD: 01/10/2021 [facility] 40 mg 06/26/2020 12:00:00 AM EDT tablet 90 TAKE ONE TABLET BY MOUTH EVERY DAY TAKE ONE TABLET BY MOUTH EVERY DAY SOLD: 06/29/2020 [facility] 40 mg 06/26/2020 12:00:00 AM EDT tablet 90 TAKE ONE TABLET BY MOUTH EVERY DAY TAKE ONE TABLET BY MOUTH EVERY DAY SOLD: 10/08/2020 [facility] 40 mg 06/26/2020 12:00:00 AM EDT tablet 90 TAKE ONE TABLET BY MOUTH EVERY DAY TAKE ONE TABLET BY MOUTH EVERY DAY SOLD: 06/18/2021 [facility] 300 mg 06/26/2020 12:00:00 AM EDT capsule 270 TAKE ONE CAPSULE BY MOUTH THREE TIMES A DAY TAKE ONE CAPSULE BY MOUTH THREE TIMES A DAY SOLD: 06/18/2021 [facility] 300 mg 06/26/2020 12:00:00 AM EDT capsule 270 TAKE ONE CAPSULE BY MOUTH THREE TIMES A DAY TAKE ONE CAPSULE BY MOUTH THREE TIMES A DAY SOLD: 12/21/2020 [facility] 50 mcg/actuation 06/26/2020 12:00:00 AM EDT spray,suspension 48 SPRAY 2 SPRAYS IN EACH NOSTRIL ONCE DAILY SPRAY 2 SPRAYS IN EACH NOSTRIL ONCE DAILY SOLD: 04/26/2021 [facility] 300 mg 06/26/2020 12:00:00 AM EDT capsule 270 TAKE ONE CAPSULE BY MOUTH THREE TIMES A DAY TAKE ONE CAPSULE BY MOUTH THREE TIMES A DAY SOLD: 06/29/2020 [facility] 50 mcg/actuation 06/26/2020 12:00:00 AM EDT spray,suspension 48 SPRAY 2 SPRAYS IN EACH NOSTRIL ONCE DAILY SPRAY 2 SPRAYS IN EACH NOSTRIL ONCE DAILY SOLD: 06/29/2020 [facility] 50 mcg/actuation 06/26/2020 12:00:00 AM EDT spray,suspension 48 SPRAY 2 SPRAYS IN EACH NOSTRIL ONCE DAILY SPRAY 2 SPRAYS IN EACH NOSTRIL ONCE DAILY SOLD: 09/24/2020 [facility] 40 mg 06/26/2020 12:00:00 AM EDT tablet 90 TAKE ONE TABLET BY MOUTH EVERY DAY TAKE ONE TABLET BY MOUTH EVERY DAY SOLD: 01/10/2021 [facility] 25 mcg 06/26/2020 12:00:00 AM EDT tablet 90 TAKE ONE TABLET BY MOUTH EVERY DAY WITH 200MCG TAKE ONE TABLET BY MOUTH EVERY DAY WITH 200MCG SOLD: [facility] 25 mcg 06/26/2020 12:00:00 AM EDT tablet 90 TAKE ONE TABLET BY MOUTH EVERY DAY WITH 200MCG TAKE ONE TABLET BY MOUTH EVERY DAY WITH 200MCG SOLD: [facility] Levothyroxine Sodium 0.025 MG Oral Tablet Levothyroxine Sodi um 06/25/2020 12:00:00 AM EDT ORAL active M [facility] ([facility] Metoprolol Tartrate 75 MG Oral Tablet Metoprolol Tartrate 12:00:00 AM EDT ORAL active [facility] ([facility] gabapentin 300 MG Oral Capsule Gabapentin 06/19/2020 12:00:00 AM EDT ORAL active [facility] ([facility]) Ferrous fumarate 324 MG Oral Tablet Ferrous Fumarate 06/19/2020 12:00:00 AM EDT ORAL active [facility] ( [facility]) Betamethasone 0.5 MG/ML / Clotrimazole 10 MG/ML Topica l Cream Clotrimazole/Betamethasone Dipropionate 06/19/2020 12:00:00 AM EDT active [facility] ([facility]) Prednisone 10 MG Oral Tablet Prednisone 06/19/2020 12:00:00 AM EDT ORAL active [facility] ([facility]) 200 mcg 06/18/2020 12:00:00 AM EDT tablet 90 TAKE ONE TABLET BY MOUTH EVERY DAY ALONG WITH A 25MCG TABLET TAKE ONE TABLET BY MOUTH EVERY DAY ALONG WITH A 25MCG TABLET SOLD: 09/12/2020 [facility] 200 mcg 06/18/2020 12:00:00 AM EDT tablet 90 TAKE ONE TABLET BY MOUTH EVERY DAY ALONG WITH A 25MCG TABLET TAKE ONE TABLET BY MOUTH EVERY DAY ALONG WITH A 25MCG TABLET SOLD: 06/20/2020 [facility] 200 mcg 06/18/2020 12:00:00 AM EDT tablet 90 TAKE ONE TABLET BY MOUTH EVERY DAY ALONG WITH A 25MCG TABLET TAKE ONE TABLET BY MOUTH EVERY DAY ALONG WITH A 25MCG TABLET SOLD: 12/21/2020 [facility] Levothyroxine Sodium 0.05 MG Oral Tablet Levothyroxine Sodium 50 MCG Oral Tablet (SYNTHROID) Levothyroxine Sodium 50 MCG Oral Tablet (SYNTHROID) 12:00:00 AM EDT aborted TAKE ONE TABLET BY MOUTH EVERY DAY WITH 200MCG TABLET [facility] CPAP 06/12/2020 12:00:00 AM EDT active MED[facility] ([facility], ) Oxygen 06/12/2020 12:00:00 AM EDT completed [facility] ([facility], ) ferrous sulfate 325 MG Oral Tablet Ferrous Sulfate 05/24/2020 12:00 :00 AM EDT ORAL completed [facility] ([facility] Metoprolol Tartrate 25 MG Oral Tablet Metoprolol Tartrate 12:00:00 AM EDT ORAL completed [facility] ([facility]) 10 mg 05/15/2020 12:00:00 AM EDT tablet 30 TAKE ONE TABLET BY MOUTH EVERY DAY TAKE ONE TABLET BY MOUTH EVERY DAY SOLD: 06/20/2020 [facility] 10 mg 05/15/2020 12:00:00 AM EDT tablet 30 TAKE ONE TABLET BY MOUTH EVERY DAY TAKE ONE TABLET BY MOUTH EVERY DAY SOLD: 09/12/2020 [facility] 10 mg 05/15/2020 12:00:00 AM EDT tablet 30 TAKE ONE TABLET BY MOUTH EVERY DAY TAKE ONE TABLET BY MOUTH EVERY DAY SOLD: 08/15/2020 [facility] 10 mg 05/15/2020 12:00:00 AM EDT tablet 30 TAKE ONE TABLET BY MOUTH EVERY DAY TAKE ONE TABLET BY MOUTH EVERY DAY SOLD: 11/19/2020 [facility] 10 mg 05/15/2020 12:00:00 AM EDT tablet 30 TAKE ONE TABLET BY MOUTH EVERY DAY TAKE ONE TABLET BY MOUTH EVERY DAY SOLD: 10/15/2020 [facility] 24-26 mg 03/22/2020 12:00:00 AM EDT tablet 180 TAKE ONE TABLET BY MOUTH TWICE A DAY TAKE ONE TABLET BY MOUTH TWICE A DAY SOLD: 10/08/2020 [facility] 24-26 mg 03/22/2020 12:00:00 AM EDT tablet 180 TAKE ONE TABLET BY MOUTH TWICE A DAY TAKE ONE TABLET BY MOUTH TWICE A DAY SOLD: 07/16/2020 [facility] 24-26 mg 03/22/2020 12:00:00 AM EDT tablet 180 TAKE ONE TABLET BY MOUTH TWICE A DAY TAKE ONE TABLET BY MOUTH TWICE A DAY SOLD: 01/15/2021 [facility] 5 mg 03/12/2020 12:00:00 AM EDT tablet 180 TAKE ONE TABLET BY MOUTH TWICE A DAY TAKE ONE TABLET BY MOUTH TWICE A DAY SOLD: 03/04/2021 [facility] 5 mg 03/12/2020 12:00:00 AM EDT tablet 180 TAKE ONE TABLET BY MOUTH TWICE A DAY TAKE ONE TABLET BY MOUTH TWICE A DAY SOLD: 10/23/2020 [facility] 5 mg 03/12/2020 12:00:00 AM EDT tablet 180 TAKE ONE TABLET BY MOUTH TWICE A DAY TAKE ONE TABLET BY MOUTH TWICE A DAY SOLD: 07/28/2020 [facility] 50 mg 03/10/2020 12:00:00 AM EDT tablet 270 TAKE 1 & 1/2 TABLETS BY MOUTH TWO TIMES A DAY TAKE 1 & 1/2 TABLETS BY MOUTH TWO TIMES A DAY SOLD: 07/16/20 20 [facility] 50 mg 03/10/2020 12:00:00 AM EDT tablet 270 TAKE 1 & 1/2 TABLETS BY MOUTH TWO TIMES A DAY TAKE 1 & 1/2 TABLETS BY MOUTH TWO TIMES A DAY SOLD: 10/23/19 21 [facility] 50 mcg 03/10/2020 12:00:00 AM EDT tablet 90 TAKE ONE TABLET BY MOUTH EVERY DAY WITH 200MCG TABLET TAKE ONE TABLET BY MOUTH EVERY DAY WITH 200MCG TABLET SOLD: 06/20/2020 [facility] Spironolactone 25 MG Oral Tablet Spironolactone 25 MG Oral Tablet (ALDACTONE) Spironolactone 25 MG Oral Tablet (ALDACTONE) 02/28/2020 12:00:00 AM EDT 12.5 mg Oral aborted Take 12.5 mg by mouth [facility] 1-0.05 % 11/22/2019 12:00:00 AM EST cream 15 APPLY TWO TIMES A DAY NEEDED APPLY TWO TIMES A DAY NEEDED SOLD: 08/29/2020 [facility] 1-0.05 % 11/22/2019 12:00:00 AM EST cream 15 APPLY TWO TIMES A DAY NEEDED APPLY TWO TIMES A DAY NEEDED SOLD: 09/24/2020 [facility] 10 mEq 11/05/2019 12:00:00 AM EST capsule, extended relea se 90 TAKE ONE CAPSULE BY MOUTH EVERY DAY MAXIMUM DAILY DOSE = ONE TABLET TAKE ONE CAPSULE BY MOUTH EVERY DAY MAXIMUM DAILY DOSE = ONE TABLET SOLD: 08/29/2020 [facility] Finasteride 5 MG Oral Tablet FINASTERIDE 08/06/2019 12:00:00 AM EST ta blet 90 TAKE ONE TABLET BY MOUTH EVERY DAY TAKE ONE TABLET BY MOUTH EVERY DAY SOLD: 06/20/2020 [facility] pantoprazole 40 MG Delayed Release Oral Tablet PANTOPRAZOLE SODIUM 08/06/2019 12:00:00 AM EST tablet,delayed release (DR/EC) 90 T FIFI ONE TABLET BY MOUTH EVERY DAY TAKE ONE TABLET BY MOUTH EVERY DAY SOLD: 06/20/2020 [facility] dabigatran etexilate 150 MG Oral Capsule dabigatran etexilate (PRADAXA) 150 MG capsu dabigatran etexilate (PRADAXA) 150 MG capsu 07/19/2016 12:00:00 AM EDT 150 mg Oral aborted Take 1 cap adriana (150 mg total) by mouth 2 (two) times a day [facility] Gentamicin Sulfate (PRISON) 0.001 MG/MG Top ical Ointment gentamicin (GARAMYCIN) 0.1 % ointment gentamicin (GARAMYCIN) 0.1 % ointment 1 {applica tion} Topical aborted Apply 1 application topicall y 2 (two) times a day [facility] clopidogrel 75 MG Oral Tablet clopidogrel (PLAVIX) 75 MG tablet clopidogrel (PLAVIX) 75 MG tablet 75 mg Oral aborted Ta ke 75 mg by mouth daily [facility] GLUCOSAMINE-CHONDROITIN PO drug or medication Oral aborted Take by mouth [facility] Nitroglycerin 0.4 MG Sublingual Tablet N itroglycerin 0.4 MG Sublingual Tablet Sublingual (NITROSTAT) Nitroglycerin 0.4 MG Sublingual Tablet S ublingual (NITROSTAT) 0.[address] 0.4 mg under the tongue every 5 (five) minutes as needed for Chest pain [facility] Durkee-3 Fatty Acids (FISH OIL PO) 2 {capsule} Oral aborted Take 2 capsules by mouth every morning [facility] Calcium Carbonate 1500 MG Oral Tablet Ca lcium Carbonate 600 MG Oral Tablet (OS-ANAYELI) Calcium Carbonate 600 MG Oral Tablet (OS-ANAYELI) 600 mg O ral aborted Take 600 mg by mouth Two times d aily with meals [facility] Tab-A-Dianna/Beta Carotene Oral Tablet 8443-7273-13 1 {tbl} O ral aborted Take 1 tablet by mouth daily [facility] Lisinopril 2.5 MG Oral Tablet lisinopril (PRINIVIL,ZES TRIL) 2.5 MG tablet lisinopril (PRINIVIL,ZESTRIL) 2.5 MG tablet 2.5 mg Oral aborted Take 2.5 mg by mouth nightly [facility] Levothyroxine Sodium 0.175 MG Oral Table t levothyroxine (SYNTHROID, LEVOTHROID) 175 MCG tablet levothyroxine (SYNTHROID, LEVOTHROID) 175 MCG tablet 175 ug Oral aborted Take 175 mcg by mout h daily [facility] Beti De Oliveira [place]-3 DHA Oral Tablet Chewable [id number] 2 {tbl} Oral aborted Chew 2 tablets by Mo uth daily [facility] Vitamin B 12 0.5 MG Oral Tablet Vitamin B-12 500 MCG Oral Tablet (CYANOCOBALAMIN) Vitamin B-12 500 MCG Oral Tablet (CYANOCOBALAMIN) 500 ug Oral aborted Take 500 mcg by mout h daily [facility] ferrous sulfate 325 MG Oral Tablet Ferrous Sulfate 325 (65 Fe) MG Oral Tablet Ferrous Sulfate 325 (65 Fe) MG Oral Tablet 325 mg Oral aborted Take 325 mg by mouth daily [facility] Spironolactone 25 MG Oral Tablet spironolactone (ALDAC TONE) 25 MG tablet spironolactone (ALDACTONE) 25 MG tablet 12.5 mg Oral aborted Take 12.5 mg by mouth daily [facility] Cranberry 300 MG Oral Tablet [id number] 300 mg Oral ab orted Take 300 mg by mouth daily [facility] Lisinopril 2.5 MG Oral Tablet Lisinopril 2.5 MG Oral T ablet (ZESTRIL) Lisinopril 2.5 MG Oral Tablet (ZESTRIL) 2.5 mg Oral aborted Take 2.5 mg by mouth [facility] Loratadine 10 MG Oral Tablet Loratadine 10 MG Oral Tab let (CLARITIN) Loratadine 10 MG Oral Tablet (CLARITIN) 10 mg Oral aborted Take 10 mg by mouth every evening [facility] Tamsulosin hydrochloride 0.4 MG Oral Cap adriana Tamsulosin HCl 0.4 MG Oral Capsule (FLOMAX) Tamsulosin HCl 0.4 MG Oral Capsule (FLOMAX) 0.4 mg Ora l aborted Take 0.4 mg by mouth daily [facility] clopidogrel 75 MG Oral Tablet Clopidogrel Bisulfate 75 MG Oral Tablet (PLAVIX) Clopidogrel Bisulfate 75 MG Oral Tablet (PLAVIX) 75 mg Oral aborted Take 75 mg by mouth [facility] Insurance Providers Payer name Policy type / Coverage type Policy ID Covered democrat ID Covered democrat's relationship to puentes Policy [place] Information [place] 1 [id number] [facility] [id number] Self [id number] [place] [facility] [id number] Self [id number] [place] [facility] [id number] Self [id number] [place] [facility] [id number] Self [id number] [place] Drop Development [id number] Self [id number] [place] [id number] Self [id number] [place] [employer] [id number] Self [id number] [place] [facility] [employer] [id number] Self [id number] [place] [id number] Self [id number] [place] [facility] [id number] Self [id number] [place] Commercial [id number] Self [place] [employer] [id number] [employer] BCBS [id number] Myaa YLS [id number] [employer]CE[employer] BCBS [id number] EXCELLUS BCBS [id number] Maya YLS [id number] [facility] MEDICARE [id number] Maya [id number] BCBS EMPIRE [place] DIV [id number] SP [id number] [facility] [id number] SP [id number] BCBS EMPIRE J[place]ON DIV [id number] SP [id number] Medicare (Part B) Medicare Primary [id number] Self [id number] Medicare (Part B) Medicare Primary [id number] Self [id number] Medicare (Part B) Medicare Primary [id number] Self [id number] MEDICARE A [id number] Self [id number] MEDICARE [id number] Medicare (Part B) Medicare Primary [id number] Self [id number] Medicare (Part B) Medicare Primary [id number] Self [id number] MEDICARE [id number] Maya [id number] MEDICARE [id number] SP [id number] A MEDICARE [id number] SP [id number] [facility] [id number] SP [id number] BCBS EMPIRE J[place]ON DIV [id number] SP [id number] [facility] U [id number] Self [id number] ANSI-Commercial [id number] ANSI-Medicare Part B [id number] ANSI-Medicare Part B [id number] ANSI-Commercial [id number] ANSI-Commercial [id number] ANSI-Medicare Part B [id number] ANSI-Commercial [id number] ANSI-Medicare Part B [id number] ANSI-Commercial [id number] ANSI-Medicare Part B [id number] ANSI-Medicare Part B [id number] ANSI-Commercial [id number] ANSI-Commercial [id number] ANSI-Medicare Part B [id number] ANSI-Commercial [id number] ANSI-Medicare Part B [id number] MEDICARE [id number] SP [id number] A MEDICARE C [id number] S [id number] A Medicare - NGS Medicare Primary [id number] Self [id number] MEDICARE C [id number] S [id number] [facility] Health Maintenance Organization (HMO) [id number] Self [id number] BCBS E[place]IRE [place] DIV [id number] SP [id number] [employer] [id number] SP [id number] [place] [facility] Mediswink Part B [id number] Self UNITED HEALTHCARE [id number] SP [id number] [place] Plan Govt Employee [id number] BC BLUE CARD 1 [id number] SELF PAY 2 UNAVAILABLE 1 UNAVAILA BLE BCBS EMPIRE JHON DIV [id number] SP [id number] MEDICARE [id number] SP [id number] [facility] [id number] SP [id number] [facility] [id number] SP [id number] BCBS EMPIRE J[place] DIV [id number] SP [id number] MEDICARE C [id number] S [id number] [employer] O [id number] S [id number] MEDICARE [id number] SP [id number] BCBS EMPIRE J[place]ON DIV [id number] SP [id number] 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 -O/P [id number] MEDICARE PART A -O/P [id number] MEDICARE [id number] SP [id number] BCBS E[place]IRE [place] DIV [id number] SP [id number] EMPIRE [facility] O [id number] S [id number] [place] Plan-[facility] Medigap Part B [id number] Self [id number] Medicare - NGS Medicare Primary [id number] Self [id number] [place] Plan Medigap Part B [id number] Self [id number] BCBS [place] DIV [id number] SP [id number] ANSI-Medicare Part B [id number] ANSI-Commercial [id number]-ssof-11y2-ssqn-3a4u7va6exxk [id number]-wgsh-80e4-eoqy-[id number] ANSI-Commercial [id number]-pw3f-[id number] 6zf9b8j9-81n4-86w2-hn1o-70cn4au9n89u ANSI-Medicare Part B [id number] ANSI-Commercial ky34v7vw-800x-7411-[id number]-768s-4103-[id number] ANSI-Medicare Part B [id number]-30sd-700g-[id number] ANSI-Commercial [id number]-43d7-284p-40j0-[id number]-68p0-424z-96i8-[id number] ANSI-Medicare Part B [id number] ANSI-Commercial [id number]-58[id number] 32742r6k-3485-9660-7037-4b8wcs5k19g8 ANSI-Medicare Part B [id number]-p803-896h-1xm5-[id number] ANSI-Medicare Part B [id number]-[id number] [id number]-7821-51r1-ig3c-15t9d7r08wrv ANSI-Commercial [id number]-[id number]-[id number] ANSI-Commercial mg97k961-ey2p-3005-5016-[id number] mb38r338-ti6a-0510-0733-w092413c947u ANS-Medicare Part B [id number] ma58u7z2-7o2v-86ej-qb23-0fog17kf97i7 [facility] [id number]-[id number] ANSI-Commercial [id number]-sggw-396n60c2qxh6 [id number]-qxmz-199m34i6ejt0 Problems, Conditions, and Diagnoses Code Display Name Description Problem Type Effective Dates Data Source(s) Z98.84 Bariatric surgery status Bariatric surgery status Diag nosis 05/02/2021 12:30:00 PM EDT [place] [facility] 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, 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 Postsurgical malabsorption, not elsewher Diagnosis 05/02/2021 12:30:00 PM EDT [facility] Z95.810 Presence of automatic (implantable) card iac defibrillator Presence of automatic (implantable) cardiac defibrillator Diagnosis 02/05/20 21 04:13:08 PM [facility] G93.41 Metabolic encephalopathy Metabolic encephalopathy Diag nosis 02/04/2021 04:13:06 PM [facility] R65.20 Severe sepsis without septic shock Severe sepsis without septic shock Diagnosis 02/04/2021 04:13:06 PM [facility] A41.52 Sepsis due to Pseudomonas Sepsis due to Pseudomonas Di agnosis 02/04/2021 04:13:06 PM [facility] A41.9 Sepsis, unspecified organism Sepsis, unspecified organ ism Diagnosis 02/04/2021 04:13:06 PM [facility] R65.21 Severe sepsis with septic shock Severe sepsis wi th septic shock Diagnosis 02/04/2021 04:13:04 PM [facility] R10.11 Right upper quadrant pain Right upper quadrant pain Di agnosis 01/20/2021 03:57:00 PM [facility] R10.13 Epigastric pain Epigastric pain Diagnosis 01/20/2021 03:5 7:00 PM EDT [facility] R50.9 Fever, unspecified Fever, unspecified Diagnosis 03:57:00 PM EDT [facility] R06.02 Shortness of breath Shortness of breath Diagnosis 0 01/20/2021 03:57:00 PM EDT [facility] R11.0 Nausea Nausea Diagnosis 01/20/2021 03:57:00 PM ED [facility] choledocholithiasis choledocholithiasis Diagnosis 021 03:57:00 PM EDT [facility] D72.829 [id number] Leukocytosis, unspecified type Problem 07/23/2021 12:00:00 AM EDT eCW1 ([facility]) I27.81 Chronic cor pulmonale Chronic cor pulmonale Problem 07/17/2021 12:00:00 AM EDT [facility] ([facility]) A04.72 [id number] Clostridioides difficile diarrhea Proble m 07/02/2021 12:00:00 AM EDT eCW1 ([facility]) K74.60 [id number] Cirrhosis of liver w ithout ascites, unspecified hepatic cirrhosis type Problem 07/02/2021 12:00:00 AM EDT eCW1 ([facility]) K63.5 [id number] Polyp of colon, unspecified part of colon, unspecified type Problem 07/02/2021 12:00:00 AM EDT eCW1 ([facility]) I27.81 Chronic cor pulmonale Chronic cor pulmonale Problem 06/05/2021 12:00:00 AM EDT [facility] ([facility] ) R19.7 [id number] Diarrhea of presumed infectious origin Pr oblem 06/04/2021 12:00:00 AM EDT eCW1 ([facility]) K83.09 [id number] Ascending cholangitis Problem 03/19/2021 12: 00:00 AM EDT eCW1 ([facility]) K75.0 [id number] Liver abscess Problem 03/05/2021 12:00:00 AM EDT eCW1 ([facility]) B37.9 [id number] Parul albicans infection Problem 12:00:00 AM EDT eCW1 ([facility]) J98.4 [id number] Other disorders of lung Problem 03/05/2021 1 2:00:00 AM EDT eCW1 ([facility]) B96.5 [id number] Pseudomonas (aerugin elyssa) (mallei) (pseudomallei) as the cause of diseases classified elsewhere Problem 03/05/2021 12:00:00 AM EDT eCW 1 ([facility]) [id number] Dyspnea Dyspnea Problem 08/20/2020 12:00:00 AM ES T [facility] ([facility]) R06.02 Dyspnea Dyspnea Problem 08/20/2020 12:00:00 AM ES T [facility] ([facility] ) L97.812 [id number] Non-pressure chronic ulcer of other part of right lower leg with fat layer exposed Problem 06/27/2020 12:00:00 AM EDT eCW1 ([facility]) I87.311 [id number] Chronic venous hyper tension (idiopathic) with ulcer of right lower extremity Problem 06/27/2020 12:00:00 AM EDT eCW1 ([facility]) Surgeries/Procedures Procedure Description Date Indications Data Source(s) ECG ROUTINE ECG W/LEAST 12 LDS W/I&R 07/17/2021 12:00: 00 AM EDT [facility] ([facility]) OFFICE OUTPATIENT VISIT 25 MINUTES 07/17/2021 12:00:00 AM EDT [facility] ([facility]) Imm: Flublok Quadrivalent 18 years & older 0.5mL IM Influenz a 07/02/2021 12:00:00 AM EDT eCW1 ([facility]) INTERROGATION EVAL REMOTE </90 D 1/2/> LD CVDFB 2020 12:00:00 AM EDT [facility] ([facility]) INTERROGATION REMOTE </90 D ASSEMBLY MEMBER REVIEW 06/11/20 12:00:00 AM EDT [facility] ([facility]) Spirometry 06/05/2021 12:00:00 AM EDT Vonda KILLIAN ([facility], ) OFFICE OUTPATIENT VISIT 25 MINUTES 06/05/2021 12:00:00 AM EDT ROMÁN ([facility], ) IR CHOLANGIOGRAM BILIARY TUBE CHECK <td>IR CHOLANGIOGR AM BILIARY TUBE CHECK</td><td>Routine</td><td>05/02/2021 1:17 PM EDT</td><td> Postsurgical malabsorption, not elsewhere classified Bariatric surgery status</td><td> </td> 05/02/2021 01:17:00 PM EDT Bariatric surgery statusPostsurgical mal absorption, not elsewhere classified [facility] Bariatric surgery status Postsurgical malabsorption, 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 THROMBOPLASTIN TIME PARTIAL PLASMA/WHOLE BLOOD <td>APTT</td><td>Routine</td><td>04/26/2021 2:23 PM EDT</td><td> Postsurgical malabsorption Bariatric surgery status</td><td> </td> 04/26/2021 02:23:00 PM EDT Bariatric surgery statusPostsurgical malabsorption [facility] Bariatric surgery status Postsurgical malabsorption PROTHROMBIN TIME <td>PROTIME-INR</td><td>Rout ine</td><td>04/26/2021 2:23 PM EDT</td><td> Postsurgical malabsorption Bariatric surgery status</td><td> </td> 04/26/2021 02:23:00 PM EDT Bariatric surgery statusPostsurgical malabsorption [facility] Bariatric surgery status Postsurgical malabsorption BLOOD COUNT COMPLETE AUTO&AUTO DIFRNTL WBC COUNT <td>C BC AND DIFFERENTIAL</td><td>Routine</td><td>04/26/2021 2:23 PM EDT</td><td> Postsurgical malabsorption Bariatric surgery status</td><td> </td> 04/26/2021 02:23:00 PM EDT Bariatric surgery statusPostsurgical malabsorption [facility] Bariatric surgery status Postsurgical malabsorption BASIC METABOLIC PANEL CALCIUM TOTAL <td>BASIC METABOLI C PANEL</td><td>Routine</td><td>04/26/2021 2:23 PM EDT</td><td> Postsurgical malabsorption Bariatric surgery status</td><td> </td> 04/26/2021 02:23:00 PM EDT Bariatric surgery statusPostsurgical malabsorption [facility] Bariatric surgery status Postsurgical malabsorption OFFICE OUTPATIENT VISIT 15 MINUTES 04/23/2021 12:00:00 AM EDT [facility] ([facility]) OFFICE OUTPATIENT VISIT 25 MINUTES 03/20/2021 12:00:00 AM EDT [facility] ([facility] PROGRM EVAL IMPLANTABLE IN PRSN ENROBER LD CARD/DFB 2020 12:00:00 AM EDT [facility] ([facility]) OFFICE OUTPATIENT VISIT 15 MINUTES 03/12/2021 12:00:00 AM EDT [facility] ([facility]) OFFICE OUTPATIENT VISIT 15 MINUTES 03/04/2021 12:00:00 AM EDT [facility] ([facility] ) COVID-19 PCR <td>COVID-19 PCR</td><td>Rou brigette</td><td>02/08/2021 10:57 AM EDT</td><td></td><td> </td> 02/08/2021 10:57:00 AM [facility] BLOOD COUNT COMPLETE AUTOMATED <td>CBC</td><td>Routine </td><td>02/08/2021 4:29 AM EDT</td><td></td><td> </td> 02/08/2021 04:29:00 AM [facility] PHOSPHORUS INORGANIC <td>PHOSPHORUS LEVEL</td><td >Routine</td><td>02/08/2021 4:29 AM EDT</td><td></td><td> </td> 02/08/2021 04:29:00 AM [facility] MAGNESIUM <td>MAGNESIUM LEVEL</td><td> Routine</td><td>02/08/2021 4:29 AM EDT</td><td></td><td> </td> 02/08/2021 04:29:00 AM [facility] HEPATIC FUNCTION PANEL <td>HEPATIC FUNCTION PANEL A</td><td>Routine</td><td>02/08/2021 4:29 AM EDT</td><td></td><td> </td> 02/08/2021 04:29:00 AM [facility] BASIC METABOLIC PANEL CALCIUM TOTAL <td>BASIC METABOLI C PANEL</td><td>Routine</td><td>02/08/2021 4:29 AM EDT</td><td></td><td> </td> 02/08/2021 04:29:00 AM [facility] ECG TRANSESOPHAG R-T 2D W/PRB IMG ACQUISJ I&R <td>ECHO CARDIOGRAM TRANSESOPHAGEAL</td><td>Routine</td><td>02/07/2021 12:05 PM EDT</td><td></td><td></td> 02/07/2021 12:05:26 PM EDT [facility] ROSALIND, ECHO OR - 5E <td>ROSALIND, ECHO OR - 5E</td><t d>Routine</td><td>02/07/2021 9:05 AM EDT</td><td></td><td> </td> 02/07/2021 09:05:51 AM [facility] BLOOD COUNT COMPLETE AUTOMATED <td>CBC</td><td>Routine </td><td>02/07/2021 4:45 AM EDT</td><td></td><td> </td> 02/07/2021 04:45:00 AM [facility] PHOSPHORUS INORGANIC <td>PHOSPHORUS LEVEL</td><td >Routine</td><td>02/07/2021 4:45 AM EDT</td><td></td><td> </td> 02/07/2021 04:45:00 AM [facility] MAGNESIUM <td>MAGNESIUM LEVEL</td><td> Routine</td><td>02/07/2021 4:45 AM EDT</td><td></td><td> </td> 02/07/2021 04:45:00 AM [facility] HEPATIC FUNCTION PANEL <td>HEPATIC FUNCTION PANEL A</td><td>Routine</td><td>02/07/2021 4:45 AM EDT</td><td></td><td> </td> 02/07/2021 04:45:00 AM [facility] BASIC METABOLIC PANEL CALCIUM TOTAL <td>BASIC METABOLI C PANEL</td><td>Routine</td><td>02/07/2021 4:45 AM EDT</td><td></td><td> </td> 02/07/2021 04:45:00 AM [facility] BLOOD COUNT COMPLETE AUTOMATED <td>CBC</td><td>Routine </td><td>02/06/2021 4:22 AM EDT</td><td></td><td> </td> 02/06/2021 04:22:00 AM [facility] PHOSPHORUS INORGANIC <td>PHOSPHORUS LEVEL</td><td >Routine</td><td>02/06/2021 4:22 AM EDT</td><td></td><td> </td> 02/06/2021 04:22:00 AM [facility] MAGNESIUM <td>MAGNESIUM LEVEL</td><td> Routine</td><td>02/06/2021 4:22 AM EDT</td><td></td><td> </td> 02/06/2021 04:22:00 AM [facility] HEPATIC FUNCTION PANEL <td>HEPATIC FUNCTION PANEL A</td><td>Routine</td><td>02/06/2021 4:22 AM EDT</td><td></td><td> </td> 02/06/2021 04:22:00 AM [facility] BASIC METABOLIC PANEL CALCIUM TOTAL <td>BASIC METABOLI C PANEL</td><td>Routine</td><td>02/06/2021 4:22 AM EDT</td><td></td><td> </td> 02/06/2021 04:22:00 AM [facility] BLOOD COUNT COMPLETE AUTOMATED <td>CBC</td><td>Routine </td><td>02/05/2021 4:27 AM EDT</td><td></td><td> </td> 02/05/2021 04:27:00 AM [facility] PHOSPHORUS INORGANIC <td>PHOSPHORUS LEVEL</td><td >Routine</td><td>02/05/2021 4:27 AM EDT</td><td></td><td> </td> 02/05/2021 04:27:00 AM [facility] MAGNESIUM <td>MAGNESIUM LEVEL</td><td> Routine</td><td>02/05/2021 4:27 AM EDT</td><td></td><td> </td> 02/05/2021 04:27:00 AM [facility] HEPATIC FUNCTION PANEL <td>HEPATIC FUNCTION PANEL A</td><td>Routine</td><td>02/05/2021 4:27 AM EDT</td><td></td><td> </td> 02/05/2021 04:27:00 AM [facility] BASIC METABOLIC PANEL CALCIUM TOTAL <td>BASIC METABOLI C PANEL</td><td>Routine</td><td>02/05/2021 4:27 AM EDT</td><td></td><td> </td> 02/05/2021 04:27:00 AM [facility] EKG 12-LEAD - CMAXX REPORT <td>EKG 12-LEAD - CMAXX REPORT</td><td></td><td>02/04/2021 4:54 PM EDT</td><td></td><td></td> 02/04/2021 04:54:10 PM [facility] EKG 12-LEAD - CMAXX REPORT <td>EKG 12-LEAD - CMAXX REPORT</td><td></td><td>02/04/2021 4:54 PM EDT</td><td></td><td></td> 02/04/2021 04:54:10 PM [facility] EKG 12-LEAD <td>EKG 12-LEAD</td><td>Rout ine</td><td>02/04/2021 4:54 PM EDT</td><td></td><td> </td> 02/04/2021 04:54:10 PM [facility] BLOOD COUNT COMPLETE AUTOMATED <td>CBC</td><td>Routine </td><td>02/04/2021 4:01 AM EDT</td><td></td><td> </td> 02/04/2021 04:01:00 AM [facility] PHOSPHORUS INORGANIC <td>PHOSPHORUS LEVEL</td><td >Routine</td><td>02/04/2021 4:01 AM EDT</td><td></td><td> </td> 02/04/2021 04:01:00 AM [facility] MAGNESIUM <td>MAGNESIUM LEVEL</td><td> Routine</td><td>02/04/2021 4:01 AM EDT</td><td></td><td> </td> 02/04/2021 04:01:00 AM [facility] CALCIUM IONIZED <td>CALCIUM, IONIZED</td><td >Routine</td><td>02/04/2021 4:01 AM EDT</td><td></td><td> </td> 02/04/2021 04:01:00 AM [facility] HEPATIC FUNCTION PANEL <td>HEPATIC FUNCTION PANEL A</td><td>Routine</td><td>02/04/2021 4:01 AM EDT</td><td></td><td> </td> 02/04/2021 04:01:00 AM [facility] BASIC METABOLIC PANEL CALCIUM TOTAL <td>BASIC METABOLI C PANEL</td><td>Timed</td><td>02/04/2021 4:01 AM EDT</td><td></td><td> </td> 02/04/2021 04:01:00 AM [facility] BASIC METABOLIC PANEL CALCIUM TOTAL <td>BASIC METABOLI C PANEL</td><td>Timed</td><td>02/03/2021 5:57 PM EDT</td><td></td><td> </td> 02/03/2021 05:57:00 PM [facility] BLOOD COUNT COMPLETE AUTOMATED <td>CBC</td><td>Routine </td><td>02/03/2021 3:57 AM EDT</td><td></td><td> </td> 02/03/2021 03:57:00 AM [facility] PHOSPHORUS INORGANIC <td>PHOSPHORUS LEVEL</td><td >Routine</td><td>02/03/2021 3:57 AM EDT</td><td></td><td> </td> 02/03/2021 03:57:00 AM [facility] MAGNESIUM <td>MAGNESIUM LEVEL</td><td> Routine</td><td>02/03/2021 3:57 AM EDT</td><td></td><td> </td> 02/03/2021 03:57:00 AM [facility] HEPATIC FUNCTION PANEL <td>HEPATIC FUNCTION PANEL A</td><td>Routine</td><td>02/03/2021 3:57 AM EDT</td><td></td><td> </td> 02/03/2021 03:57:00 AM [facility] BASIC METABOLIC PANEL CALCIUM TOTAL <td>BASIC METABOLI C PANEL</td><td>Timed</td><td>02/03/2021 3:57 AM EDT</td><td></td><td> </td> 02/03/2021 03:57:00 AM [facility] BASIC METABOLIC PANEL CALCIUM TOTAL <td>BASIC METABOLI C PANEL</td><td>Timed</td><td>02/02/2021 5:20 PM EDT</td><td></td><td> </td> 02/02/2021 05:20:00 PM [facility] BLOOD COUNT COMPLETE AUTOMATED <td>CBC</td><td>Timed</ td><td>02/02/2021 8:32 AM EDT</td><td></td><td> </td> 02/02/2021 08:32:00 AM [facility] BASIC METABOLIC PANEL CALCIUM TOTAL <td>BASIC METABOLI C PANEL</td><td>Timed</td><td>02/02/2021 8:32 AM EDT</td><td></td><td> </td> 02/02/2021 08:32:00 AM [facility] PHOSPHORUS INORGANIC <td>PHOSPHORUS LEVEL</td><td >Routine</td><td>02/02/2021 5:47 AM EDT</td><td></td><td> </td> 02/02/2021 05:47:00 AM [facility] MAGNESIUM <td>MAGNESIUM LEVEL</td><td> Routine</td><td>02/02/2021 5:47 AM EDT</td><td></td><td> </td> 02/02/2021 05:47:00 AM [facility] HEPATIC FUNCTION PANEL <td>HEPATIC FUNCTION PANEL A</td><td>Timed</td><td>02/02/2021 5:47 AM EDT</td><td></td><td> </td> 02/02/2021 05:47:00 AM [facility] BLOOD COUNT COMPLETE AUTOMATED <td>CBC</td><td>Timed</ td><td>02/02/2021 12:23 AM EDT</td><td></td><td> </td> 02/02/2021 12:23:00 AM [facility] BASIC METABOLIC PANEL CALCIUM TOTAL <td>BASIC METABOLI C PANEL</td><td>Timed</td><td>02/02/2021 12:23 AM EDT</td><td></td><td> </td> 02/02/2021 12:23:00 AM [facility] BLOOD COUNT COMPLETE AUTOMATED <td>CBC</td><td>Timed</ td><td>02/01/2021 5:04 PM EDT</td><td></td><td> </td> 02/01/2021 05:04:00 PM [facility] HEPATIC FUNCTION PANEL <td>HEPATIC FUNCTION PANEL A</td><td>Timed</td><td>02/01/2021 5:04 PM EDT</td><td></td><td> </td> 02/01/2021 05:04:00 PM [facility] BASIC METABOLIC PANEL CALCIUM TOTAL <td>BASIC METABOLI C PANEL</td><td>Timed</td><td>02/01/2021 5:04 PM EDT</td><td></td><td> </td> 02/01/2021 05:04:00 PM [facility] BLOOD COUNT COMPLETE AUTOMATED <td>CBC</td><td>Timed</ td><td>02/01/2021 8:43 AM EDT</td><td></td><td> </td> 02/01/2021 08:43:00 AM [facility] HEPATIC FUNCTION PANEL <td>HEPATIC FUNCTION PANEL A</td><td>Timed</td><td>02/01/2021 8:43 AM EDT</td><td></td><td> </td> 02/01/2021 08:43:00 AM [facility] BASIC METABOLIC PANEL CALCIUM TOTAL <td>BASIC METABOLI C PANEL</td><td>Timed</td><td>02/01/2021 8:43 AM EDT</td><td></td><td> </td> 02/01/2021 08:43:00 AM [facility] PHOSPHORUS INORGANIC <td>PHOSPHORUS LEVEL</td><td >Routine</td><td>02/01/2021 5:50 AM EDT</td><td></td><td> </td> 02/01/2021 05:50:00 AM [facility] MAGNESIUM <td>MAGNESIUM LEVEL</td><td> Routine</td><td>02/01/2021 5:50 AM EDT</td><td></td><td> </td> 02/01/2021 05:50:00 AM [facility] BILIRUBIN DIRECT <td>BILIRUBIN, DIRECT</td><t d>Timed</td><td>02/01/2021 5:50 AM EDT</td><td></td><td> </td> 02/01/2021 05:50:00 AM [facility] BILIRUBIN TOTAL <td>BILIRUBIN, TOTAL</td><td >Timed</td><td>02/01/2021 5:50 AM EDT</td><td></td><td> </td> 02/01/2021 05:50:00 AM [facility] BLOOD COUNT COMPLETE AUTOMATED <td>CBC</td><td>Timed</ td><td>02/01/2021 12:09 AM EDT</td><td></td><td> </td> 02/01/2021 12:09:00 AM [facility] BASIC METABOLIC PANEL CALCIUM TOTAL <td>BASIC METABOLI C PANEL</td><td>Timed</td><td>02/01/2021 12:09 AM EDT</td><td></td><td> </td> 02/01/2021 12:09:00 AM [facility] HEPATIC FUNCTION PANEL <td>HEPATIC FUNCTION PANEL A</td><td>Timed</td><td>01/31/2021 5:56 PM EDT</td><td></td><td> </td> 01/31/2021 05:56:00 PM [facility] BLOOD COUNT COMPLETE AUTOMATED <td>CBC</td><td>Timed</ td><td>01/31/2021 4:13 PM EDT</td><td></td><td> </td> 01/31/2021 04:13:00 PM [facility] BASIC METABOLIC PANEL CALCIUM TOTAL <td>BASIC METABOLI C PANEL</td><td>Timed</td><td>01/31/2021 4:13 PM EDT</td><td></td><td> </td> 01/31/2021 04:13:00 PM [facility] XR ABDOMEN AP ABD SUPINE ONLY [id number] <td>XR ABDOMEN AP ABD SUPINE ONLY [id number]</td><td>Routine</td><td>01/31/2021 12:18 PM EDT</td><td></td><td> </td> 01/31/2021 12:18:14 PM [facility] BLOOD COUNT COMPLETE AUTOMATED <td>CBC</td><td>Timed</ td><td>01/31/2021 8:16 AM EDT</td><td></td><td> </td> 01/31/2021 08:16:00 AM [facility] PHOSPHORUS INORGANIC <td>PHOSPHORUS LEVEL</td><td >Timed</td><td>01/31/2021 8:16 AM EDT</td><td></td><td> </td> 01/31/2021 08:16:00 AM [facility] MAGNESIUM <td>MAGNESIUM LEVEL</td><td> Timed</td><td>01/31/2021 8:16 AM EDT</td><td></td><td> </td> 01/31/2021 08:16:00 AM [facility] HEPATIC FUNCTION PANEL <td>HEPATIC FUNCTION PANEL A</td><td>Timed</td><td>01/31/2021 8:16 AM EDT</td><td></td><td> </td> 01/31/2021 08:16:00 AM [facility] BASIC METABOLIC PANEL CALCIUM TOTAL <td>BASIC METABOLI C PANEL</td><td>Timed</td><td>01/31/2021 8:16 AM EDT</td><td></td><td> </td> 01/31/2021 08:16:00 AM [facility] BLOOD GASES ANY COMBINATION PH PCO2 PO2 CO2 HCO3 <td>B LOOD GAS, ARTERIAL</td><td>Routine</td><td>01/31/2021 4:50 AM EDT</td><td></td><td> </td> 01/31/2021 04:50:00 AM [facility] BILIRUBIN DIRECT <td>BILIRUBIN, DIRECT</td><t d>Timed</td><td>01/31/2021 4:50 AM EDT</td><td></td><td> </td> 01/31/2021 04:50:00 AM [facility] BILIRUBIN TOTAL <td>BILIRUBIN, TOTAL</td><td >Timed</td><td>01/31/2021 4:50 AM EDT</td><td></td><td> </td> 01/31/2021 04:50:00 AM [facility] XR CHEST FRONTAL ONLY [id number] <td>XR CHEST FRONTAL ONLY [id number]</td><td>Routine</td><td>01/31/2021 4:11 AM EDT</td><td></td><td> </td> 01/31/2021 04:11:00 AM [facility] BLOOD COUNT COMPLETE AUTOMATED <td>CBC</td><td>Timed</ td><td>01/31/2021 12:32 AM EDT</td><td></td><td> </td> 01/31/2021 12:32:00 AM [facility] PHOSPHORUS INORGANIC <td>PHOSPHORUS LEVEL</td><td >Timed</td><td>01/31/2021 12:32 AM EDT</td><td></td><td> </td> 01/31/2021 12:32:00 AM [facility] MAGNESIUM <td>MAGNESIUM LEVEL</td><td> Timed</td><td>01/31/2021 12:32 AM EDT</td><td></td><td> </td> 01/31/2021 12:32:00 AM [facility] BASIC METABOLIC PANEL CALCIUM TOTAL <td>BASIC METABOLI C PANEL</td><td>Timed</td><td>01/31/2021 12:32 AM EDT</td><td></td><td> </td> 01/31/2021 12:32:00 AM [facility] CUL BACT XCPT URINE BLOOD/STOOL AEROBIC ISOL <td>WOUND CULTURE</td><td>Routine</td><td>01/30/2021 7:34 PM EDT</td><td></td><td></td> 01/30/2021 07:34:00 PM [facility] XR CHEST FRONTAL ONLY [id number] <td>XR CHEST FRONTAL ONLY [id number]</td><td>Urgent</td><td>01/30/2021 6:23 PM EDT</td><td></td><td> </td> 01/30/2021 06:23:00 PM [facility] BLOOD COUNT COMPLETE AUTOMATED <td>CBC</td><td>Timed</ td><td>01/30/2021 5:57 PM EDT</td><td></td><td> </td> 01/30/2021 05:57:00 PM [facility] PHOSPHORUS INORGANIC <td>PHOSPHORUS LEVEL</td><td >Timed</td><td>01/30/2021 5:57 PM EDT</td><td></td><td> </td> 01/30/2021 05:57:00 PM [facility] MAGNESIUM <td>MAGNESIUM LEVEL</td><td> Timed</td><td>01/30/2021 5:57 PM EDT</td><td></td><td> </td> 01/30/2021 05:57:00 PM [facility] BLOOD GASES ANY COMBINATION PH PCO2 PO2 CO2 HCO3 <td>B LOOD GAS, ARTERIAL</td><td>Routine</td><td>01/30/2021 5:57 PM EDT</td><td></td><td> </td> 01/30/2021 05:57:00 PM [facility] HEPATIC FUNCTION PANEL <td>HEPATIC FUNCTION PANEL A</td><td>Timed</td><td>01/30/2021 5:57 PM EDT</td><td></td><td> </td> 01/30/2021 05:57:00 PM [facility] BASIC METABOLIC PANEL CALCIUM TOTAL <td>BASIC METABOLI C PANEL</td><td>Timed</td><td>01/30/2021 5:57 PM EDT</td><td></td><td> </td> 01/30/2021 05:57:00 PM [facility] US GUIDANCE NEEDLE PLACEMENT RS&I <td>IR IMAGE GUIDED NEEDLE DRAIN PROCEDURE</td><td>Routine</td><td>01/30/2021 4:22 PM EDT</td><td></td><td> </td> 01/30/2021 04:22:00 PM [facility] IR PERCUTANEOUS CHOLANGIOGRAPHY AND BILIARY DRAINAGE < td>IR PERCUTANEOUS CHOLANGIOGRAPHY AND BILIARY DRAINAGE</td><td>Routine</td><td>01/30/2021 4:22 PM EDT</td><td></td><td> </td> 01/30/2021 04:22:00 PM [facility] CULTURE BACTERIAL BLOOD AEROBIC W/ID ISOLATES <td>BLOO D CULTURE</td><td>Routine</td><td>01/30/2021 12:17 PM EDT</td><td></td><td> </td> 01/30/2021 12:17:00 PM [facility] PROTHROMBIN TIME <td>PROTIME INR</td><td>STAT </td><td>01/30/2021 11:31 AM EDT</td><td></td><td> </td> 01/30/2021 11:31:00 AM [facility] CULTURE BACTERIAL BLOOD AEROBIC W/ID ISOLATES <td>BLOO D CULTURE</td><td>Routine</td><td>01/30/2021 10:38 AM EDT</td><td></td><td> </td> 01/30/2021 10:38:00 AM [facility] BLOOD COUNT COMPLETE AUTOMATED <td>CBC</td><td>Timed</ td><td>01/30/2021 5:25 AM EDT</td><td></td><td> </td> 01/30/2021 05:25:00 AM [facility] PHOSPHORUS INORGANIC <td>PHOSPHORUS LEVEL</td><td >Routine</td><td>01/30/2021 5:25 AM EDT</td><td></td><td> </td> 01/30/2021 05:25:00 AM [facility] MAGNESIUM <td>MAGNESIUM LEVEL</td><td> Routine</td><td>01/30/2021 5:25 AM EDT</td><td></td><td> </td> 01/30/2021 05:25:00 AM [facility] HEPATIC FUNCTION PANEL <td>HEPATIC FUNCTION PANEL A</td><td>Routine</td><td>01/30/2021 5:25 AM EDT</td><td></td><td> </td> 01/30/2021 05:25:00 AM [facility] BASIC METABOLIC PANEL CALCIUM TOTAL <td>BASIC METABOLI C PANEL</td><td>Timed</td><td>01/30/2021 5:25 AM EDT</td><td></td><td> </td> 01/30/2021 05:25:00 AM [facility] XR CHEST FRONTAL ONLY [id number] <td>XR CHEST FRONTAL ONLY [id number]</td><td>Routine</td><td>01/30/2021 4:04 AM EDT</td><td></td><td> </td> 01/30/2021 04:04:00 AM [facility] BLOOD COUNT COMPLETE AUTOMATED <td>CBC</td><td>Timed</ td><td>01/29/2021 5:51 PM EDT</td><td></td><td> </td> 01/29/2021 05:51:00 PM [facility] BILIRUBIN DIRECT <td>BILIRUBIN, DIRECT</td><t d>Timed</td><td>01/29/2021 5:51 PM EDT</td><td></td><td> </td> 01/29/2021 05:51:00 PM [facility] BILIRUBIN TOTAL <td>BILIRUBIN, TOTAL</td><td >Timed</td><td>01/29/2021 5:51 PM EDT</td><td></td><td> </td> 01/29/2021 05:51:00 PM [facility] BASIC METABOLIC PANEL CALCIUM TOTAL <td>BASIC METABOLI C PANEL</td><td>Timed</td><td>01/29/2021 5:51 PM EDT</td><td></td><td> </td> 01/29/2021 05:51:00 PM [facility] CT ABDOMEN W/CONTRAST MATERIAL <td>CT ABDOMEN WITH CON TRAST [id number]</td><td>STAT</td><td>01/29/2021 5:22 PM EDT</td><td></td><td> </td> 01/29/2021 05:22:16 PM [facility] VASC LAB US DOPPLER UPPER EXTREMITY UNILATERAL VENOUS LTD [id number] <td>VASC LAB US DOPPLER UPPER EXTREMITY UNILATERAL VENOUS LTD [id number]</td><td>Routine</td><td>01/29/2021 2:22 PM EDT</td><td></td><td> </td> 01/29/2021 02:22:00 PM [facility] ULTRASOUND ABDOMINAL REAL TIME W/IMAGE LIMITED <td>US ABDOMEN LIMITED [id number]</td><td>STAT</td><td>01/29/2021 6:39 AM EDT</td><td></td><td> </td> 01/29/2021 06:39:11 AM [facility] BLOOD COUNT COMPLETE AUTOMATED <td>CBC</td><td>Timed</ td><td>01/29/2021 4:07 AM EDT</td><td></td><td> </td> 01/29/2021 04:07:00 AM [facility] PHOSPHORUS INORGANIC <td>PHOSPHORUS LEVEL</td><td >Routine</td><td>01/29/2021 4:07 AM EDT</td><td></td><td> </td> 01/29/2021 04:07:00 AM [facility] MAGNESIUM <td>MAGNESIUM LEVEL</td><td> Routine</td><td>01/29/2021 4:07 AM EDT</td><td></td><td> </td> 01/29/2021 04:07:00 AM [facility] HEPATIC FUNCTION PANEL <td>HEPATIC FUNCTION PANEL A</td><td>Routine</td><td>01/29/2021 4:07 AM EDT</td><td></td><td> </td> 01/29/2021 04:07:00 AM [facility] BASIC METABOLIC PANEL CALCIUM TOTAL <td>BASIC METABOLI C PANEL</td><td>Timed</td><td>01/29/2021 4:07 AM EDT</td><td></td><td> </td> 01/29/2021 04:07:00 AM [facility] BLOOD COUNT COMPLETE AUTOMATED <td>CBC</td><td>Timed</ td><td>01/28/2021 7:45 PM EDT</td><td></td><td> </td> 01/28/2021 07:45:00 PM [facility] BILIRUBIN DIRECT <td>BILIRUBIN, DIRECT</td><t d>Timed</td><td>01/28/2021 7:45 PM EDT</td><td></td><td> </td> 01/28/2021 07:45:00 PM [facility] BILIRUBIN TOTAL <td>BILIRUBIN, TOTAL</td><td >Timed</td><td>01/28/2021 7:45 PM EDT</td><td></td><td> </td> 01/28/2021 07:45:00 PM [facility] BASIC METABOLIC PANEL CALCIUM TOTAL <td>BASIC METABOLI C PANEL</td><td>Timed</td><td>01/28/2021 7:45 PM EDT</td><td></td><td> </td> 01/28/2021 07:45:00 PM [facility] BLOOD GASES ANY COMBINATION PH PCO2 PO2 CO2 HCO3 <td>B LOOD GAS, VENOUS</td><td>Routine</td><td>01/28/2021 11:08 AM EDT</td><td></td><td> </td> 01/28/2021 11:08:00 AM [facility] XR CHEST FRONTAL ONLY [id number] <td>XR CHEST FRONTAL ONLY [id number]</td><td>STAT</td><td>01/28/2021 10:57 AM EDT</td><td></td><td> </td> 01/28/2021 10:57:00 AM [facility] BLOOD COUNT COMPLETE AUTOMATED <td>CBC</td><td>Routine </td><td>01/28/2021 3:36 AM EDT</td><td></td><td> </td> 01/28/2021 03:36:00 AM [facility] PHOSPHORUS INORGANIC <td>PHOSPHORUS LEVEL</td><td >Routine</td><td>01/28/2021 3:36 AM EDT</td><td></td><td> </td> 01/28/2021 03:36:00 AM [facility] MAGNESIUM <td>MAGNESIUM LEVEL</td><td> Routine</td><td>01/28/2021 3:36 AM EDT</td><td></td><td> </td> 01/28/2021 03:36:00 AM [facility] DRUG SCREEN QUALITATIVE VANCOMYCIN <td>VANCOMYCIN, RANDOM</td><td>Routine</td><td>01/28/2021 3:36 AM EDT</td><td></td><td> </td> 01/28/2021 03:36:00 AM [facility] HEPATIC FUNCTION PANEL <td>HEPATIC FUNCTION PANEL A</td><td>Routine</td><td>01/28/2021 3:36 AM EDT</td><td></td><td> </td> 01/28/2021 03:36:00 AM [facility] BASIC METABOLIC PANEL CALCIUM TOTAL <td>BASIC METABOLI C PANEL</td><td>Routine</td><td>01/28/2021 3:36 AM EDT</td><td></td><td> </td> 01/28/2021 03:36:00 AM [facility] DRUG SCREEN QUALITATIVE VANCOMYCIN <td>VANCOMYCIN, RANDOM</td><td>Routine</td><td>01/27/2021 3:53 PM EDT</td><td></td><td> </td> 01/27/2021 03:53:00 PM [facility] HEPATIC FUNCTION PANEL <td>HEPATIC FUNCTION PANEL A</td><td>Routine</td><td>01/27/2021 4:58 AM EDT</td><td></td><td> </td> 01/27/2021 04:58:00 AM [facility] BASIC METABOLIC PANEL CALCIUM TOTAL <td>BASIC METABOLI C PANEL</td><td>Routine</td><td>01/27/2021 4:58 AM EDT</td><td></td><td> </td> 01/27/2021 04:58:00 AM [facility] ARTL CATHJ/CANNULJ MNTR/TRANSFUSION SPX PRQ <td>ME INS ERT CATH,ART,PERCUT,SHORTTERM</td><td>Routine</td><td>01/27/2021 3:05 AM EDT</td><td> Septic shock</td><td> </td> 01/27/2021 03:05:39 AM EDT Septic shock [facility] Septic shock CULTURE BACTERIAL BLOOD AEROBIC W/ID ISOLATES <td>BLOO D CULTURE</td><td>Routine</td><td>01/27/2021 12:50 AM EDT</td><td></td><td> </td> 01/27/2021 12:50:00 AM [facility] CULTURE BACTERIAL BLOOD AEROBIC W/ID ISOLATES <td>BLOO D CULTURE</td><td>Routine</td><td>01/27/2021 12:50 AM EDT</td><td></td><td> </td> 01/27/2021 12:50:00 AM [facility] XR CHEST FRONTAL ONLY [id number] <td>XR CHEST FRONTAL ONLY [id number]</td><td>Routine</td><td>01/26/2021 11:04 PM EDT</td><td></td><td> </td> 01/26/2021 11:04:00 PM [facility] THYROID STIMULATING HORMONE TSH <td>TSH</td><td>Routin e</td><td>01/26/2021 10:09 PM EDT</td><td></td><td> </td> 01/26/2021 10:09:00 PM [facility] PHOSPHORUS INORGANIC <td>PHOSPHORUS LEVEL</td><td >Routine</td><td>01/26/2021 10:09 PM EDT</td><td></td><td> </td> 01/26/2021 10:09:00 PM [facility] MAGNESIUM <td>MAGNESIUM LEVEL</td><td> Routine</td><td>01/26/2021 10:09 PM EDT</td><td></td><td> </td> 01/26/2021 10:09:00 PM [facility] LACTATE <td>LACTIC ACID LEVEL, PLASM A</td><td>Routine</td><td>01/26/2021 10:09 PM EDT</td><td></td><td> </td> 01/26/2021 10:09:00 PM [facility] BASIC METABOLIC PANEL CALCIUM TOTAL <td>BASIC METABOLI C PANEL</td><td>Routine</td><td>01/26/2021 10:09 PM EDT</td><td></td><td> </td> 01/26/2021 10:09:00 PM [facility] ACUTE HEPATITIS PANEL <td>HEPATITIS PANEL, ACUTE</td><td>Routine</td><td>01/26/2021 11:42 AM EDT</td><td></td><td> </td> 01/26/2021 11:42:00 AM [facility] NATRIURETIC PEPTIDE <td>PROBNP</td><td>Routine</ td><td>01/26/2021 9:23 AM EDT</td><td></td><td> </td> 01/26/2021 09:23:00 AM [facility] BLOOD COUNT COMPLETE AUTO&AUTO DIFRNTL WBC COUNT <td>C BC AND DIFFERENTIAL</td><td>Routine</td><td>01/26/2021 9:23 AM EDT</td><td></td><td> </td> 01/26/2021 09:23:00 AM [facility] PHOSPHORUS INORGANIC <td>PHOSPHORUS LEVEL</td><td >Routine</td><td>01/26/2021 9:23 AM EDT</td><td></td><td> </td> 01/26/2021 09:23:00 AM [facility] MAGNESIUM <td>MAGNESIUM LEVEL</td><td> Routine</td><td>01/26/2021 9:23 AM EDT</td><td></td><td> </td> 01/26/2021 09:23:00 AM [facility] LACTATE DEHYDROGENASE LDH <td>LACTATE DEHYDROGENASE</td><td>Routine</td><td>01/26/2021 9:23 AM EDT</td><td></td><td> </td> 01/26/2021 09:23:00 AM [facility] LACTATE <td>LACTIC ACID LEVEL, PLASM A</td><td>Routine</td><td>01/26/2021 9:23 AM EDT</td><td></td><td> </td> 01/26/2021 09:23:00 AM [facility] CALCIUM IONIZED <td>CALCIUM, IONIZED</td><td >Routine</td><td>01/26/2021 9:23 AM EDT</td><td></td><td> </td> 01/26/2021 09:23:00 AM [facility] COMPREHENSIVE METABOLIC PANEL <td>COMPREHENSIVE METABO LIC PANEL</td><td>Routine</td><td>01/26/2021 9:23 AM EDT</td><td></td><td> </td> 01/26/2021 09:23:00 AM [facility] XR CHEST FRONTAL ONLY [id number] <td>XR CHEST FRONTAL ONLY [id number]</td><td>STAT</td><td>01/26/2021 9:11 AM EDT</td><td></td><td> </td> 01/26/2021 09:11:00 AM [facility] BLOOD COUNT COMPLETE AUTO&AUTO DIFRNTL WBC COUNT <td>C BC AND DIFFERENTIAL</td><td>Routine</td><td>01/26/2021 4:23 AM EDT</td><td></td><td> </td> 01/26/2021 04:23:00 AM [facility] HEPATIC FUNCTION PANEL <td>HEPATIC FUNCTION PANEL A</td><td>Routine</td><td>01/26/2021 4:23 AM EDT</td><td></td><td> </td> 01/26/2021 04:23:00 AM [facility] BASIC METABOLIC PANEL CALCIUM TOTAL <td>BASIC METABOLI C PANEL</td><td>Routine</td><td>01/26/2021 4:23 AM EDT</td><td></td><td> </td> 01/26/2021 04:23:00 AM [facility] PHOSPHORUS INORGANIC <td>PHOSPHORUS LEVEL</td><td >STAT</td><td>01/25/2021 11:06 PM EDT</td><td></td><td> </td> 01/25/2021 11:06:00 PM [facility] MAGNESIUM <td>MAGNESIUM LEVEL</td><td> STAT</td><td>01/25/2021 11:06 PM EDT</td><td></td><td> </td> 01/25/2021 11:06:00 PM [facility] LACTATE <td>LACTIC ACID LEVEL, PLASM A</td><td>STAT</td><td>01/25/2021 11:06 PM EDT</td><td></td><td> </td> 01/25/2021 11:06:00 PM [facility] BASIC METABOLIC PANEL CALCIUM TOTAL <td>BASIC METABOLI C PANEL</td><td>STAT</td><td>01/25/2021 11:06 PM EDT</td><td></td><td> </td> 01/25/2021 11:06:00 PM [facility] BIOPSY LIVER NEEDLE PERCUTANEOUS <td>IR IMAGE GUIDED N EEDLE DRAIN PROCEDURE</td><td>STAT</td><td>01/25/2021 8:39 PM EDT</td><td></td><td> </td> 01/25/2021 08:39:13 PM [facility] CUL BACT XCPT URINE BLOOD/STOOL AEROBIC ISOL <td>WOUND CULTURE</td><td>Routine</td><td>01/25/2021 8:19 PM EDT</td><td></td><td> </td> 01/25/2021 08:19:00 PM [facility] APOLIPOPROTEIN EACH <td>HEPATITIS C VIRUS FIBROSURE</td><td>Routine</td><td>01/25/2021 5:24 PM EDT</td><td></td><td> </td> 01/25/2021 05:24:00 PM [facility] LACTATE <td>LACTIC ACID LEVEL, PLASM A</td><td>STAT</td><td>01/25/2021 1:59 PM EDT</td><td></td><td> </td> 01/25/2021 01:59:[address] [facility] CT ABDOMEN & PELVIS W/O CONTRST 1/> BODY REGIONS <td>C T ABDOMEN PELVIS WITH AND WITHOUT CONTRAST [id number]</td><td>STAT</td><td>01/25/2021 1:00 PM EDT</td><td></td><td> </td> 01/25/2021 01:00:00 PM [facility] EKG 12-LEAD - CMAXX REPORT <td>EKG 12-LEAD - CMAXX REPORT</td><td></td><td>01/25/2021 10:57 AM EDT</td><td></td><td></td> 01/25/2021 10:57:36 AM [facility] EKG 12-LEAD - CMAXX REPORT <td>EKG 12-LEAD - CMAXX REPORT</td><td></td><td>01/25/2021 10:57 AM EDT</td><td></td><td></td> 01/25/2021 10:57:36 AM [facility] EKG 12-LEAD <td>EKG 12-LEAD</td><td>STAT </td><td>01/25/2021 10:57 AM EDT</td><td></td><td> </td> 01/25/2021 10:57:36 AM [facility] BLOOD COUNT COMPLETE AUTO&AUTO DIFRNTL WBC COUNT <td>C BC AND DIFFERENTIAL</td><td>Routine</td><td>01/25/2021 1:48 AM EDT</td><td></td><td> </td> 01/25/2021 01:48:00 AM [facility] PHOSPHORUS INORGANIC <td>PHOSPHORUS LEVEL</td><td >Routine</td><td>01/25/2021 1:48 AM EDT</td><td></td><td> </td> 01/25/2021 01:48:00 AM [facility] MAGNESIUM <td>MAGNESIUM LEVEL</td><td> Routine</td><td>01/25/2021 1:48 AM EDT</td><td></td><td> </td> 01/25/2021 01:48:00 AM [facility] HEPATIC FUNCTION PANEL <td>HEPATIC FUNCTION PANEL A</td><td>Routine</td><td>01/25/2021 1:48 AM EDT</td><td></td><td> </td> 01/25/2021 01:48:00 AM [facility] BASIC METABOLIC PANEL CALCIUM TOTAL <td>BASIC METABOLI C PANEL</td><td>Routine</td><td>01/25/2021 1:48 AM EDT</td><td></td><td> </td> 01/25/2021 01:48:00 AM [facility] LAB RESULTS (OUTSIDE/HISTORICAL) <td>LAB RESULTS (OUTSIDE/HISTORICAL)</td><td></td><td>01/24/2021 10:51 AM EDT</td><td></td><td></td> 01/24/2021 10:51:32 AM EDT [facility] CARDIAC DEVICE (IMPLANT) CHECK <td>CARDIAC DEVICE (IMP LANT) CHECK</td><td>Routine</td><td>01/24/2021 8:01 AM EDT</td><td> Biventricular automatic implantable cardioverter defibrillator in situ</td><td> </td> 01/24/2021 08:01:08 AM EDT Biventricular automatic implantable cardioverter defib rillator in situ [facility] Biventricular automatic implantable card ioverter defibrillator in situ BLOOD COUNT COMPLETE AUTO&AUTO DIFRNTL WBC COUNT <td>C BC AND DIFFERENTIAL</td><td>Routine</td><td>01/24/2021 2:11 AM EDT</td><td></td><td> </td> 01/24/2021 02:11:00 AM [facility] HEPATIC FUNCTION PANEL <td>HEPATIC FUNCTION PANEL A</td><td>Routine</td><td>01/24/2021 2:11 AM EDT</td><td></td><td> </td> 01/24/2021 02:11:00 AM [facility] BASIC METABOLIC PANEL CALCIUM TOTAL <td>BASIC METABOLI C PANEL</td><td>Routine</td><td>01/24/2021 2:11 AM EDT</td><td></td><td> </td> 01/24/2021 02:11:00 AM EDT [facility] LACTATE <td>LACTIC ACID LEVEL, PLASM A</td><td>Routine</td><td>01/23/2021 11:51 AM EDT</td><td></td><td> </td> 01/23/2021 11:51:00 AM [facility] BLOOD COUNT COMPLETE AUTO&AUTO DIFRNTL WBC COUNT <td>C BC AND DIFFERENTIAL</td><td>Routine</td><td>01/23/2021 4:00 AM EDT</td><td></td><td> </td> 01/23/2021 04:00:00 AM [facility] HEPATIC FUNCTION PANEL <td>HEPATIC FUNCTION PANEL A</td><td>Routine</td><td>01/23/2021 4:00 AM EDT</td><td></td><td> </td> 01/23/2021 04:00:00 AM [facility] BASIC METABOLIC PANEL CALCIUM TOTAL <td>BASIC METABOLI C PANEL</td><td>Routine</td><td>01/23/2021 4:00 AM EDT</td><td></td><td> </td> 01/23/2021 04:00:00 AM [facility] CULTURE BACTERIAL BLOOD AEROBIC W/ID ISOLATES <td>BLOO D CULTURE</td><td>Routine</td><td>01/22/2021 5:28 PM EDT</td><td></td><td> </td> 01/22/2021 05:28:00 PM [facility] GLUCOSE QUANTITATIVE BLOOD XCPT REAGENT STRIP <td>POCT GLUCOSE, DOCKED</td><td>Routine</td><td>01/22/2021 5:23 PM EDT</td><td></td><td> </td> 01/22/2021 05:23:00 PM [facility] GLUCOSE QUANTITATIVE BLOOD XCPT REAGENT STRIP <td>POCT GLUCOSE, DOCKED</td><td>Routine</td><td>01/22/2021 1:04 PM EDT</td><td></td><td> </td> 01/22/2021 01:04:00 PM [facility] PHOSPHORUS INORGANIC <td>PHOSPHORUS LEVEL</td><td >Routine</td><td>01/22/2021 5:05 AM EDT</td><td></td><td> </td> 01/22/2021 05:05:00 AM [facility] MAGNESIUM <td>MAGNESIUM LEVEL</td><td> Routine</td><td>01/22/2021 5:05 AM EDT</td><td></td><td> </td> 01/22/2021 05:05:00 AM [facility] DRUG SCREEN QUALITATIVE DIGOXIN <td>DIGOXIN LEVEL</td><td>Routine</td><td>01/22/2021 5:05 AM EDT</td><td></td><td> </td> 01/22/2021 05:05:00 AM [facility] PROTHROMBIN TIME <td>PROTIME INR</td><td>Rout ine</td><td>01/22/2021 4:49 AM EDT</td><td></td><td> </td> 01/22/2021 04:49:00 AM [facility] BLOOD COUNT COMPLETE AUTO&AUTO DIFRNTL WBC COUNT <td>C BC AND DIFFERENTIAL</td><td>Routine</td><td>01/22/2021 4:49 AM EDT</td><td></td><td> </td> 01/22/2021 04:49:00 AM [facility] HEPATIC FUNCTION PANEL <td>HEPATIC FUNCTION PANEL A</td><td>Routine</td><td>01/22/2021 4:49 AM EDT</td><td></td><td> </td> 01/22/2021 04:49:00 AM [facility] BASIC METABOLIC PANEL CALCIUM TOTAL <td>BASIC METABOLI C PANEL</td><td>Routine</td><td>01/22/2021 4:49 AM EDT</td><td></td><td> </td> 01/22/2021 04:49:00 AM [facility] GLUCOSE QUANTITATIVE BLOOD XCPT REAGENT STRIP <td>POCT GLUCOSE, DOCKED</td><td>Routine</td><td>01/22/2021 1:55 AM EDT</td><td></td><td> </td> 01/22/2021 01:55:00 AM [facility] GLUCOSE QUANTITATIVE BLOOD XCPT REAGENT STRIP <td>POCT GLUCOSE, DOCKED</td><td>Routine</td><td>01/21/2021 6:05 PM EDT</td><td></td><td> </td> 01/21/2021 06:05:00 PM [facility] TROPONIN QUANTITATIVE <td>TROPONIN T</td><td>Timed </td><td>01/21/2021 4:02 PM EDT</td><td></td><td> </td> 01/21/2021 04:02:00 PM [facility] ULTRASOUND ABDOMINAL REAL TIME W/IMAGE LIMITED <td>US ABDOMEN LIMITED [id number]</td><td>Routine</td><td>01/21/2021 3:31 PM EDT</td><td></td><td> </td> 01/21/2021 03:31:47 PM [facility] HEPATOBILIARY SYST IMAGING INCLUDING GALLBLADDER <td>N M HEPATOBILIARY IMAGING HIDA [id number]</td><td>Routine</td><td>01/21/2021 1:36 PM EDT</td><td></td><td> </td> 01/21/2021 01:36:55 PM [facility] SMR PRIM SRC GRAM/GIEMSA STAIN BCT FUNGI/CELL <td>SPUT UM SCREEN</td><td>Routine</td><td>01/21/2021 12:22 PM EDT</td><td></td><td> </td> 01/21/2021 12:22:00 PM [facility] CUL BACT XCPT URINE BLOOD/STOOL AEROBIC ISOL <td>SPUTU M CULTURE</td><td>Routine</td><td>01/21/2021 12:22 PM EDT</td><td></td><td> </td> 01/21/2021 12:22:00 PM [facility] ECHO TTHRC R-T 2D W/WOM-MODE COMPL SPEC&COLR DOP <td>E CHOCARDIOGRAM 2D COMPLETE</td><td>Routine</td><td>01/21/2021 11:31 AM EDT</td><td></td><td> </td> 01/21/2021 11:31:49 AM [facility] GLUCOSE QUANTITATIVE BLOOD XCPT REAGENT STRIP <td>POCT GLUCOSE, DOCKED</td><td>Routine</td><td>01/21/2021 11:19 AM EDT</td><td></td><td> </td> 01/21/2021 11:19:00 AM [facility] BLOOD COUNT COMPLETE AUTO&AUTO DIFRNTL WBC COUNT <td>C BC AND DIFFERENTIAL</td><td>Routine</td><td>01/21/2021 10:53 AM EDT</td><td></td><td> </td> 01/21/2021 10:53:00 AM [facility] TROPONIN QUANTITATIVE <td>TROPONIN T</td><td>Timed </td><td>01/21/2021 10:53 AM EDT</td><td></td><td> </td> 01/21/2021 10:53:00 AM [facility] HEPATITIS C ANTIBODY <td>HEPATITIS C ANTIBODY</td ><td>Routine</td><td>01/21/2021 4:21 AM EDT</td><td></td><td> </td> 01/21/2021 04:21:00 AM [facility] PROTHROMBIN TIME <td>PROTIME INR</td><td>Rout ine</td><td>01/21/2021 4:21 AM EDT</td><td></td><td> </td> 01/21/2021 04:21:00 AM [facility] LACTATE <td>LACTIC ACID LEVEL, PLASM A</td><td>Timed</td><td>01/21/2021 4:21 AM EDT</td><td></td><td> </td> 01/21/2021 04:21:00 AM [facility] HEPATIC FUNCTION PANEL <td>HEPATIC FUNCTION PANEL A</td><td>Routine</td><td>01/21/2021 4:21 AM EDT</td><td></td><td> </td> 01/21/2021 04:21:00 AM [facility] BASIC METABOLIC PANEL CALCIUM TOTAL <td>BASIC METABOLI C PANEL</td><td>Routine</td><td>01/21/2021 4:21 AM EDT</td><td></td><td> </td> 01/21/2021 04:21:00 AM [facility] RESPIRATORY PATHOGEN PANEL <td>RESPIRATORY PATHOGEN PANEL</td><td>Routine</td><td>01/20/2021 11:43 PM EDT</td><td></td><td> </td> 01/20/2021 11:43:00 PM [facility] COVID-19 PCR <td>COVID-19 PCR</td><td>Rou brigette</td><td>01/20/2021 11:43 PM EDT</td><td></td><td> </td> 01/20/2021 11:43:00 PM [facility] IADNA S AUREUS AMPLIFIED PROBE TQ <td>STAPH AUREUS MRS A PCR</td><td>Routine</td><td>01/20/2021 11:00 PM EDT</td><td></td><td> </td> 01/20/2021 11:00:00 PM [facility] URNLS DIP STICK/TABLET REAGENT AUTO MICROSCOPY <td>URI NALYSIS WITH REFLEX URINE CULTURE</td><td>STAT</td><td>01/20/2021 11:00 PM EDT</td><td></td><td> </td> 01/20/2021 11:00:00 PM [facility] NATRIURETIC PEPTIDE <td>PROBNP</td><td>Routine</ td><td>01/20/2021 11:00 PM EDT</td><td></td><td> </td> 01/20/2021 11:00:00 PM [facility] BLOOD COUNT COMPLETE AUTO&AUTO DIFRNTL WBC COUNT <td>C BC AND DIFFERENTIAL</td><td>Routine</td><td>01/20/2021 11:00 PM EDT</td><td></td><td> </td> 01/20/2021 11:00:00 PM [facility] TROPONIN QUANTITATIVE <td>TROPONIN T</td><td>Timed </td><td>01/20/2021 11:00 PM EDT</td><td></td><td> </td> 01/20/2021 11:00:00 PM [facility] PHOSPHORUS INORGANIC <td>PHOSPHORUS LEVEL</td><td >Routine</td><td>01/20/2021 11:00 PM EDT</td><td></td><td> </td> 01/20/2021 11:00:00 PM [facility] MAGNESIUM <td>MAGNESIUM LEVEL</td><td> Routine</td><td>01/20/2021 11:00 PM EDT</td><td></td><td> </td> 01/20/2021 11:00:00 PM [facility] LACTATE <td>LACTIC ACID LEVEL, PLASM A</td><td>Timed</td><td>01/20/2021 11:00 PM EDT</td><td></td><td> </td> 01/20/2021 11:00:00 PM [facility] CALCIUM IONIZED <td>CALCIUM, IONIZED</td><td >Routine</td><td>01/20/2021 11:00 PM EDT</td><td></td><td> </td> 01/20/2021 11:00:00 PM [facility] HEPATIC FUNCTION PANEL <td>HEPATIC FUNCTION PANEL A</td><td>Routine</td><td>01/20/2021 11:00 PM EDT</td><td></td><td> </td> 01/20/2021 11:00:00 PM [facility] BASIC METABOLIC PANEL CALCIUM TOTAL <td>BASIC METABOLI C PANEL</td><td>Routine</td><td>01/20/2021 11:00 PM EDT</td><td></td><td> </td> 01/20/2021 11:00:00 PM [facility] GLUCOSE QUANTITATIVE BLOOD XCPT REAGENT STRIP <td>POCT GLUCOSE, DOCKED</td><td>Routine</td><td>01/20/2021 10:52 PM EDT</td><td></td><td> </td> 01/20/2021 10:52:00 PM [facility] INSJ NON-TUNNELED CENTRAL VENOUS CATH AGE 3 YR/> <td>P R INSERT NON-TUNNEL CV CATH</td><td>Routine</td><td>01/20/2021 9:34 PM EDT</td><td></td><td> </td> 01/20/2021 09:34:[address] [facility] CT ABDOEN & PELVIS W/CONTRAST MATERIAL <td>CT ABDOMEN PELVIS WITH CONTRAST [id number]</td><td>STAT</td><td>01/20/2021 6:33 PM EDT</td><td></td><td> </td> 01/20/2021 06:33:06 PM [facility] BLOOD GASES ANY COMBINATION PH PCO2 PO2 CO2 HCO3 <td>P OCT ISTAT VBG/LAC</td><td>Routine</td><td>01/20/2021 5:58 PM EDT</td><td></td><td> </td> 01/20/2021 05:58:00 PM [facility] XR CHEST FRONTAL ONLY [id number] <td>XR CHEST FRONTAL ONLY [id number]</td><td>STAT</td><td>01/20/2021 5:20 PM EDT</td><td></td><td> </td> 01/20/2021 05:20:00 PM [facility] EKG 12-LEAD - CMAXX REPORT <td>EKG 12-LEAD - CMAXX REPORT</td><td></td><td>01/20/2021 4:57 PM EDT</td><td></td><td></td> 01/20/2021 04:57:49 PM [facility] EKG 12-LEAD - CMAXX REPORT <td>EKG 12-LEAD - CMAXX REPORT</td><td></td><td>01/20/2021 4:57 PM EDT</td><td></td><td></td> 01/20/2021 04:57:49 PM [facility] EKG 12-LEAD <td>EKG 12-LEAD</td><td>STAT </td><td>01/20/2021 4:57 PM EDT</td><td></td><td> </td> 01/20/2021 04:57:49 PM [facility] EKG 12-LEAD - CMAXX REPORT <td>EKG 12-LEAD - CMAXX REPORT</td><td></td><td>01/20/2021 4:57 PM EDT</td><td></td><td></td> 01/20/2021 04:57:00 PM [facility] THROMBOPLASTIN TIME PARTIAL PLASMA/WHOLE BLOOD <td>PAR TIAL THROMBOPLASTIN TIME (PTT)</td><td>Routine</td><td>01/20/2021 4:43 PM EDT</td><td></td><td> </td> 01/20/2021 04:43:00 PM [facility] CULTURE BACTERIAL BLOOD AEROBIC W/ID ISOLATES <td>BLOO D CULTURE</td><td>Routine</td><td>01/20/2021 4:43 PM EDT</td><td></td><td> </td> 01/20/2021 04:43:00 PM [facility] CULTURE BACTERIAL BLOOD AEROBIC W/ID ISOLATES <td>BLOO D CULTURE</td><td>Routine</td><td>01/20/2021 4:43 PM EDT</td><td></td><td> </td> 01/20/2021 04:43:00 PM [facility] PROTHROMBIN TIME <td>PROTIME INR</td><td>Rout ine</td><td>01/20/2021 4:43 PM EDT</td><td></td><td> </td> 01/20/2021 04:43:00 PM [facility] BLOOD COUNT COMPLETE AUTOMATED <td>CBC AND DIFFERENTIAL</td><td>Routine</td><td>01/20/2021 4:43 PM EDT</td><td></td><td> </td> 01/20/2021 04:43:00 PM [facility] BLOOD TYPING ABO <td>TYPE AND SCREEN</td><td> STAT</td><td>01/20/2021 4:43 PM EDT</td><td></td><td> </td> 01/20/2021 04:43:00 PM [facility] TROPONIN QUANTITATIVE <td>TROPONIN T</td><td>STAT< /td><td>01/20/2021 4:43 PM EDT</td><td></td><td> </td> 01/20/2021 04:43:00 PM [facility] LIPASE <td>LIPASE LEVEL</td><td>STA T</td><td>01/20/2021 4:43 PM EDT</td><td></td><td> </td> 01/20/2021 04:43:00 PM [facility] DRUG SCREEN QUALITATIVE DIGOXIN <td>DIGOXIN LEVEL</td><td>Routine</td><td>01/20/2021 4:43 PM EDT</td><td></td><td> </td> 01/20/2021 04:43:00 PM [facility] HEPATIC FUNCTION PANEL <td>HEPATIC FUNCTION PANEL A</td><td>STAT</td><td>01/20/2021 4:43 PM EDT</td><td></td><td> </td> 01/20/2021 04:43:00 PM [facility] BASIC METABOLIC PANEL CALCIUM TOTAL <td>BASIC METABOLI C PANEL</td><td>STAT</td><td>01/20/2021 4:43 PM EDT</td><td></td><td> </td> 01/20/2021 04:43:00 PM [facility] OFFICE OUTPATIENT VISIT 25 MINUTES 12/28/2020 12:00:00 AM EDT [facility] ECG ROUTINE ECG W/LEAST 12 LDS W/I&R 12/20/2020 12:00: 00 AM EDT [facility] ([facility]) OFFICE OUTPATIENT VISIT 25 MINUTES 12/20/2020 12:00:00 AM EDT [facility] ([facility]) INTERROGATION EVAL REMOTE </90 D 1/2/> LD CVDFB 2020 12:00:00 AM EDT [facility] ([facility]) INTERROGATION REMOTE </90 D ASSEMBLY MEMBER REVIEW 12/11/19 12:00:00 AM EDT [facility] ([facility]) FINE NEEDLE ASPIRATION W/O IMAGING GUIDANCE 09/26/2020 12:00:00 AM EST eCW1 ([facility]) OFFICE OUTPATIENT VISIT 25 MINUTES 09/24/2020 12:00:00 AM EST [facility] ([facility] FINE NEEDLE ASPIRATION W/O IMAGING GUIDANCE 09/12/2020 12:00:00 AM EST eCW1 ([facility]) INTERROGATION EVAL REMOTE </90 D 1/2/> LD CVDFB 2019 12:00:00 AM EST [facility] ([facility]) INTERROGATION REMOTE </90 D ASSEMBLY MEMBER REVIEW 09/10/20 12:00:00 AM EST [facility] ([facility]) FINE NEEDLE ASPIRATION W/O IMAGING GUIDANCE 09/05/2020 12:00:00 AM EST eCW1 ([facility]) FINE NEEDLE ASPIRATION W/O IMAGING GUIDANCE 08/15/2020 12:00:00 AM EST eCW1 ([facility]) FINE NEEDLE ASPIRATION W/O IMAGING GUIDANCE 08/08/2020 12:00:00 AM EST eCW1 ([facility]) FINE NEEDLE ASPIRATION W/O IMAGING GUIDANCE 08/01/2020 12:00:00 AM EST eCW1 ([facility]) FINE NEEDLE ASPIRATION W/O IMAGING GUIDANCE 07/27/2020 12:00:00 AM EDT eCW1 ([facility]) FINE NEEDLE ASPIRATION W/O IMAGING GUIDANCE 07/13/2020 12:00:00 AM EDT eCW1 ([facility]) FINE NEEDLE ASPIRATION W/O IMAGING GUIDANCE 07/06/2020 12:00:00 AM EDT eCW1 ([facility]) FINE NEEDLE ASPIRATION W/O IMAGING GUIDANCE 06/27/2020 12:00:00 AM EDT eCW1 ([facility]) ECG ROUTINE ECG W/LEAST 12 LDS W/I&R 06/20/2020 12:00: 00 AM EDT [facility] ([facility]) INTERROGATION EVAL REMOTE </90 D 1/2/> LD CVDFB 2019 12:00:00 AM EDT [facility] ([facility]) INTERROGATION REMOTE </90 D ASSEMBLY MEMBER REVIEW 06/11/20 12:00:00 AM EDT [facility] ([facility]) Results ID Date Data Source [id number] 07/09/2021 12:20:00 PM EDT [facility] ([facility] Name Value Range Interpretation Code Description Data Lesley rce(s) Supporting Document(s) Magnesium [Mass/volume] in Serum or Plasma 2.0 mg/dL 1.8-2.4 [facility] ([facility]) ID Date Data Source [id number] 07/09/2021 12:20:00 PM EDT [facility] ([facility]) Name Value Range Interpretation Code Description Data Lesley rce(s) Supporting Document(s) Glucose, Fasting 176 mg/dL 70-100 [facility] ([facility]) Blood Urea Nitrogen 17 mg/dL 7-18 [facility] ([facility]) Sodium Level 138 meq/L 136-145 [facility] ([facility]) Creatinine For GFR 0.91 mg/dL 0.70-1.30 [facility] ([facility]) Glomerular Filtration Rate Laboratory test result [facility] ([facility]) <content>Units are mL/min/1.73 m2</content>
<content></content>
<content>Chronic Kidney Disease Staging per NKF:</content>
<content></content>
<content>Stage I & II GFR >=60 Normal to Mildly Decreased</content>
<content>Stage III GFR 30- 59 Moderately Decreased</content>
<content>Stage IV GFR 15-29 Severely Decreased</content>
<content>Stage V GFR <15 Very Little GFR Left</content>
<content>ESRD GFR <15 on JAVA WE[employer] APPLICATION DEVELOPER</content>
<content></content> Carbon Dioxide Level 30 meq/L 21-32 [facility] ([facility]) Chloride Level 101 meq/L 98-107 [facility] ([facility]) Potassium Serum 4.3 meq/L 3.5-5.1 [facility] ([facility]) Calcium Level 9.2 mg/dL 8.8-10.2 [facility] ([facility]) Anion Gap 7 meq/L 8-16 [facility] ([facility]) ID Date Data Source [id number] 07/09/2021 12:20:00 PM EDT [facility] ([facility] Name Value Range Interpretation Code Description Data Lesley rce(s) Supporting Document(s) Glucose, Fasting 176 mg/dL 70-100 Above high normal M EDENT ([facility] Creatinine For GFR 0.91 mg/dL 0.70-1.30 Normal (applies to non -numeric results) [facility] ([facility] Blood Urea Nitrogen 17 mg/dL 7-18 Normal (applies to non-nume vanesa results) [facility] Glomerular Filtration Rate Laboratory test result Normal (applies to non- numeric results) [facility] ([facility] ) <content>Units are mL/min/1.73 m2</content>
<content></content>
<content>Chronic Kidney Disease Staging per NKF:</content>
<content></content>
<content>Stage I & II GFR >=60 Normal to Mildly Decreased</content>
<content>Stage III GFR 30- 59 Moderately Decreased</content>
<content>Stage IV GFR 15-29 Severely Decreased</content>
<content>Stage V GFR <15 Very Little GFR Left</content>
<content>ESRD GFR <15 on J[employer]PLICATION DEVELOPER</content>
<content></content> Sodium Level 138 meq/L 136-145 Normal (applies to non-numeric res ults) [facility] ([facility] Potassium Serum 4.3 meq/L 3.5-5.1 Normal (applies to non-numeric results) [facility] ([facility] Chloride Level 101 meq/L 98-107 Normal (applies to non-numeric r esults) [facility] ([facility] Calcium Level 9.2 mg/dL 8.8-10.2 Normal (applies to non-numeric re sults) [facility] ([facility] Anion Gap 7 meq/L 8-16 Below low normal [facility] ( [facility] Carbon Dioxide Level 30 meq/L 21-32 Normal (applies to non-num corina results) [facility] ([facility] ID Date Data Source [id number] 07/09/2021 12:20:00 PM EDT [facility] ([facility] Name Value Range Interpretation Code Description Data Lesley rce(s) Supporting Document(s) Magnesium [Mass/volume] in Serum or Plasma 2.0 mg/dL 1.8-2 .4 Normal (applies to non-numeric results) [facility] ([facility]) ID Date Data Source [id number] 07/05/2021 07:00:00 AM EDT [facility] ([facility] Name Value Range Interpretation Code Description Data Lesley rce(s) Supporting Document(s) Glucose, Fasting 194 mg/dL 70-100 Above high normal M [facility]ENT ([facility] Creatinine For GFR 1.03 mg/dL 0.70-1.30 Normal (applies to non -numeric results) [facility] ([facility] Blood Urea Nitrogen 20 mg/dL 7-18 Above high normal [facility] ([facility] Glomerular Filtration Rate Laboratory test result Normal (applies to non- numeric results) [facility] ([facility] ) <content>Units are mL/min/1.73 m2</content>
<content></content>
<content>Chronic Kidney Disease Staging per NKF:</content>
<content></content>
<content>Stage I & II GFR >=60 Normal to Mildly Decreased</content>
<content>Stage III GFR 30- 59 Moderately Decreased</content>
<content>Stage IV GFR 15-29 Severely Decreased</content>
<content>Stage V GFR <15 Very Little GFR Left</content>
<content>ESRD GFR <15 on J[employer]PLICATION DEVELOPER</content>
<content></content> Sodium Level 140 meq/L 136-145 Normal (applies to non-numeric res ults) [facility] ([facility] Potassium Serum 4.2 meq/L 3.5-5.1 Normal (applies to non-numeric results) [facility] ([facility] Chloride Level 104 meq/L 98-107 Normal (applies to non-numeric r esults) [facility] ([facility] Anion Gap 6 meq/L 8-16 Below low normal [facility] ( [facility] Carbon Dioxide Level 30 meq/L 21-32 Normal (applies to non-num corina results) [facility] ([facility] Calcium Level 9.1 mg/dL 8.8-10.2 Normal (applies to non-numeric re sults) [facility] ([facility] ID Date Data Source [id number] 07/05/2021 07:00:00 AM EDT [facility] ([facility] Name Value Range Interpretation Code Description Data Lesley rce(s) Supporting Document(s) White Blood Count 14.8 10 4.0-10.0 Above high normal [facility] ([facility] Hemoglobin 12.5 g/dL 13.5-17.5 Below low normal [facility] ( [facility] Hematocrit 39.7 % 42.0-52.0 Below low normal [facility] ( [facility] Red Blood Count 4.55 10 4.30-6.10 Normal (applies to non-numeric results) [facility] ([facility] Mean Corpuscular HGB Conc 31.5 g/dL 32.0-36.5 Below low normal [facility] ([facility] Mean Corpuscular Volume 87.3 fl 80.0-96.0 Normal ( applies to non-numeric results) [facility] ([facility] ) Mean Corpuscular Hemoglobin 27.5 pg 27.0-33.0 Norm al (applies to non-numeric results) [facility] ([facility] ) Red Cell Distribution Width 15.6 % 11.5-14.5 Above high normal [facility] ([facility] Platelet Count, Automated 218 10 150-450 Normal (applies to non-numeric results) [facility] ([facility] ) Neutrophils % 77.4 % 36.0-66.0 Above high normal [facility] ([facility] Dupage % 6.5 % 2.0-8.0 Normal (applies to non-numeric resul ts) [facility] ([facility] Lymph % 13.9 % 24.0-44.0 Below low normal [facility] ( [facility] Eos % 0.8 % 0.0-3.0 Normal (applies to non-numeric resul ts) [facility] ([facility] Immature Granulocyte % 1.0 % 0-3.0 Normal (applies to non-n umeric results) [facility] ([facility] Baso % 0.4 % 0.0-1.0 Normal (applies to non-numeric resul ts) [facility] ([facility] Neutrophils # 11.5 10 1.5-8.5 Above high normal [facility] NT ([facility] Nucleated Red Blood Cell % 0.0 % 0-0 Normal (applies to n on-numeric results) [facility] ([facility] Lymph # 2.1 10 1.5-5.0 Normal (applies to non-numeric resul ts) [facility] ([facility] Dupage # 1.0 10 0.0-0.8 Above high normal [facility] ([facility] Eos # 0.1 10 0.0-0.5 Normal (applies to non-numeric resul ts) [facility] ([facility] Baso # 0.1 10 0.0-0.2 Normal (applies to non-numeric resul ts) [facility] ([facility] ID Date Data Source Basic Metabolic Profile (BMP) 07/05/2021 12:00:00 AM EDT eCW 1 ([facility]) Name Value Range Interpretation Code Description Data Lesley rce(s) Supporting Document(s) 1.03 0.70-1.30 CREATININE FOR GFR eCW1 ([facility]) 20 7-18 BLOOD UREA NITROGEN eCW1 ([facility]) 194 70-100 GLUCOSE, FASTING eCW1 ([facility]) > 60.0 >49 GLOMERULAR FILTRATION RATE eCW 1 ([facility]) 4.2 3.5-5.1 POTASSIUM SERUM eCW1 ([facility]) 140 136-145 SODIUM LEVEL eCW1 ([facility]) 104 98-107 CHLORIDE LEVEL eCW1 ([facility]) 9.1 8.8-10.2 CALCIUM LEVEL eCW1 ([facility]) 30 21-32 CARBON DIOXIDE LEVEL eCW1 ([facility]) ID Date Data Source CBC with Differential 07/05/2021 12:00:00 AM EDT eCW1 ([facility]) Name Value Range Interpretation Code Description Data Lesley rce(s) Supporting Document(s) 4.55 4.30-6.10 RED BLOOD COUNT eCW1 ([facility]) 14.8 4.0-10.0 WHITE BLOOD COUNT eCW1 ([facility]) 39.7 42.0-52.0 HEMATOCRIT eCW1 ([facility]) 12.5 13.5-17.5 HEMOGLOBIN eCW1 ([facility]) 87.3 80.0-96.0 MEAN CORPUSCULAR VOLUME e CW1 ([facility]) 31.5 32.0-36.5 MEAN CORPUSCULAR HGB CONC eCW1 ([facility]) 27.5 27.0-33.0 MEAN CORPUSCULAR HEMOGLOB IN eCW1 ([facility]) 77.4 36.0-66.0 NEUTROPHILS % eCW1 ([facility]) 218 150-450 PLATELET COUNT, AUTOMATED eCW1 ([facility]) 15.6 11.5-14.5 RED CELL DISTRIBUTION WID TH eCW1 ([facility]) 13.9 24.0-44.0 LYMPH % eCW1 ([facility]) 6.5 2.0-8.0 MONO % eCW1 ([facility]) 0.8 0.0-3.0 EOS % eCW1 ([facility]) 11.5 1.5-8.5 NEUTROPHILS # eCW1 ([facility]) 0.4 0.0-1.0 BASO % eCW1 ([facility]) 2.1 1.5-5.0 LYMPH # eCW1 ([facility]) 0.1 0.0-0.2 BASO # eCW1 ([facility]) 1.0 0.0-0.8 MONO # eCW1 ([facility]) 0.1 0.0-0.5 EOS # eCW1 ([facility]) ID Date Data Source [id number] 06/05/2021 09:29:00 AM EDT [facility] ([facility], ) Name Value Range Interpretation Code Description Data Lesley rce(s) Supporting Document(s) PDFReport Laboratory test result [facility] ([facility]) FVC-Pred 5.37 L [facility] ([facility]) FVC-Pre 3.70 L [facility] ([facility]) FVC-%Pred-Pre 68 L [facility] ([facility]) FVC-LLN 4.30 L [facility] ([facility]) Fev1-Pred 3.99 L [facility] ([facility]) Fev1-Pre 2.90 L [facility] ([facility]) Fev1-%Pred-Pre 72 L [facility] ([facility]) Fev6-Pred 5.11 L [facility] ([facility]) Fev1-LLN 3.08 L [facility] ([facility]) Fev6-%Pred-Pre 71 L [facility] ([facility]) Fev6-LLN 4.06 L MED[facility] ([facility], ) Fev6-Pre 3.67 L [facility] ([facility]) Xfl8okh-Qxc 79 % [facility] ([facility]) Ibf9pol-Toew 74 % [facility] ([facility]) Uns1atw-ORT 64 % [facility] ([facility]) Jse5yxf-%Pred-Pre 106 % [facility] ([facility]) Oih9fpv-Ppdn 95 % [facility] ([facility]) Qfg6syg-Gfu 99 % [facility] ([facility]) Jsr9zlw-%Pred-Pre 104 % [facility] ([facility]) FEFMax-Pred 9.72 L/E/sec [facility] ([facility]) FEFMax-Pre 7.81 L/E/sec [facility] ([facility]) FEFMax-LLN 7.05 L/E/sec [facility] ([facility]) FEFMax-%Pred-Pre 80 L/E/sec [facility] ([facility]) Amr4468-Wmd 2.59 L/E/sec [facility] ([facility]) Ddf2931-Pcie 3.06 L/E/sec [facility] ([facility]) Jhr1534-WYZ 1.22 L/E/sec [facility] ([facility]) Myl5984-%Pred-Pre 84 L/E/sec [facility] ([facility]) Bek1rdp6-Zce 79 % [facility] ([facility]) ExpTime-Pre 7.88 sec [facility] ([facility]) Ecc5cpu1-Fvlq 78 % [facility] ([facility]) Nel1okw0-%Pred-Pre 101 % [facility] ([facility]) Qep2lwr5-EKH 69 % [facility] ([facility]) ID Date Data Source [id number] 05/17/2021 11:53:00 AM EDT [facility] ([facility]) Name Value Range Interpretation Code Description Data Lesley rce(s) Supporting Document(s) Ast/Sgot 99 U/L 7-37 Above high normal [facility] ([facility]) Alt/SGPT 93 U/L 12-78 Above high normal [facility] ([facility]) Alkaline Phosphatase 501 U/L 45-117 Above high normal [facility] ([facility]) Bilirubin,Total 0.9 mg/dL 0.2-1.0 Normal (applies to non-numeric results) [facility] ([facility]) Total Protein 6.9 GM/DL 6.4-8.2 Normal (applies to non-numeric re sults) [facility] ([facility]) Bilirubin,Direct 0.5 mg/dL 0.0-0.2 Above high normal M EDENT ([facility]) Albumin/Globulin Ratio 0.8 Normal (applies to non-n umeric results) [facility] ([facility]) Albumin 3.1 GM/DL 3.2-5.2 Below low normal [facility] ( [facility]) ID Date Data Source [id number] 05/03/2021 01:15:00 PM EDT [facility] ([facility]) Name Value Range Interpretation Code Description Data Lesley rc(s) Supporting Document(s) Glucose, Fasting 147 mg/dL 70-100 [facility] ([facility]) Blood Urea Nitrogen 15 mg/dL 7-18 [facility] (Ca [facility][1]) Creatinine For GFR 0.97 mg/dL 0.70-1.30 [facility] ([facility]) Glomerular Filtration Rate Laboratory test result [facility] <content>Units are mL/min/1.73 m2</content>
<content></content>
<content>Chronic Kidney Disease Staging per NKF:</content>
<content></content>
<content>Stage I & II GFR >=60 Normal to Mildly Decreased</content>
<content>Stage III GFR 30- 59 Moderately Decreased</content>
<content>Stage IV GFR 15-29 Severely Decreased</content>
<content>Stage V GFR <15 Very Little GFR Left</content>
<content>ESRD GFR <15 on J[employer]PLICATION DEVELOPER</content>
<content></content> Sodium Level 137 meq/L 136-145 [facility] ([facility]) Potassium Serum 4.4 meq/L 3.5-5.1 [facility] ([facility]) Anion Gap 7 meq/L 8-16 [facility] ([facility]) Chloride Level 101 meq/L 98-107 [facility] ([facility]) Carbon Dioxide Level 29 meq/L 21-32 [facility] ([facility]) Calcium Level 9.0 mg/dL 8.8-10.2 [facility] ([facility]) ID Date Data Source [id number] 05/03/2021 01:15:00 PM EDT [facility] ([facility] Name Value Range Interpretation Code Description Data Lesley rce(s) Supporting Document(s) Glucose, Fasting 147 mg/dL 70-100 Above high normal M EDENT ([facility] Blood Urea Nitrogen 15 mg/dL 7-18 Normal (applies to non-nume vanesa results) [facility] ([facility] Creatinine For GFR 0.97 mg/dL 0.70-1.30 Normal (applies to non -numeric results) [facility] ([facility] Sodium Level 137 meq/L 136-145 Normal (applies to non-numeric res ults) [facility] ([facility] Glomerular Filtration Rate Laboratory test result Normal (applies to non- numeric results) [facility] ([facility] ) <content>Units are mL/min/1.73 m2</content>
<content></content>
<content>Chronic Kidney Disease Staging per NKF:</content>
<content></content>
<content>Stage I & II GFR >=60 Normal to Mildly Decreased</content>
<content>Stage III GFR 30- 59 Moderately Decreased</content>
<content>Stage IV GFR 15-29 Severely Decreased</content>
<content>Stage V GFR <15 Very Little GFR Left</content>
<content>ESRD GFR <15 on [employer]PLICATION DEVELOPER</content>
<content></content> Chloride Level 101 meq/L 98-107 Normal (applies to non-numeric r esults) [facility] ([facility] Carbon Dioxide Level 29 meq/L 21-32 Normal (applies to non-num corina results) [facility] ([facility] Potassium Serum 4.4 meq/L 3.5-5.1 Normal (applies to non-numeric results) [facility] ([facility] Anion Gap 7 meq/L 8-16 Below low normal [facility] ( [facility] Calcium Level 9.0 mg/dL 8.8-10.2 Normal (applies to non-numeric re sults) [facility] ([facility] ID Date Data Source [id number] 05/02/2021 04:30:12 PM EDT [address] [id number] Name: JANES CATHERINEB: 1955Sex: MOrdering Provider: BOB Gutierrez Prov: BOB Cesar Provider: BOB Mcmahon Performed: / IR CHOLANGIOGRAM BILIARY TUBE CHECKExam Date: 05/02/2021 13:17MRN: [id number] Number: [id number] Class: OutpatientAccount #: [id number] for Exam: Postsurgical malabsorption, not elsewhere classifiedTechnique: Biliary tube check and removalFluoroscopy time: 72 SecondsNumber of Spot Images: 5Comparison: NoneFindings: The risks, benefits and alternatives to the procedure were discussed. Risks including but not limited to: Infection, bleeding, contrast allergy, bile duct injury. Informed consent was obtained.The patient was placed supine on the interventional radiology table. The existing internal/external biliary drainage catheter and surrounding area were prepped and draped in usual sterile fashion. The skin and subcutaneous tissue was infiltrated with local lidocaine 1%. Contrast was injected through the catheter under fluoroscopy. Contrast injection demonstrates the proximal sideholes to be within the internal intrahepatic ducts and the distal pigtail to be within the duodenum. The catheter was then cut. A 0.035 inch Merkleson wire was then advanced through the catheter positioned within the duodenum. The catheter was removed over the wire. An 8 Nepalese destination sheath was then advanced over the wire and positioned within a right intrahepatic biliary duct. Contrast was then injected under fluoroscopy. Contrast injection demonstrates no evidence of intrahepatic biliary ductal dilatation. The common bile duct is not dilated. The common bile duct is patent. Contrast is noted into the duodenum. The sheath and wire were then removed. A dressing was applied. The patient tolerated the procedure well. There were no immediate complications.IMPRESSION: Biliary tube evaluation demonstrating no evidence of intrahepatic or extrahepatic biliary dilatation. Common bile duct is patent. Catheter was removed.Report electronically signed by: ERIC MICHAUD On 05/02/2021 4:30 PMWorkstation ID: [id number] Name Value Range Interpretation Code Description Data Lesley rce(s) Supporting Document(s) ID Date Data Source [id number] 05/02/2021 02:36:43 PM EDT [facility] NT INFORMATIONPatient MRN Name Date of Age Gend*PT [id number] Janes Catherine 1955 66 years M HOPPT Location Admission Date/Time Visit ID Attending Provider 05/02/21 1230 --- Pedro Smith MD([id number]) EPI ID CSN Admitting Provider [id number] ---Brief Operative/Invasive Procedure NoteJatiesha Shawna CatherineDATE OF : 1955MRN # [id number] DATE: 05/02/2021ROVIDER:Eric Michaud DO 05/02/2021 1:24 PMASSISTANCE(S): NonePROCEDURE:Biliary Tube Check and RemovalPRE- PROCEDURE DIAGNOSIS: Internal/External Biliary CatheterPOST PROCEDURE DIAGNOSIS:CatheterANESTHESIA TYPE:localDRAINS:NoneSPECIMENS:NoneESTIMATED BLOOD LOSS: MinimalGRAFTS OR IMPLANTS:NoneFINDINGS: No intrahepatic ductal dilatation. CBD Patent. Tube was removedCOMPLICATIONS: NoneClaudio Kirklandartdavid of Interventional Radiology Name Value Range Interpretation Code Description Data Lesley rce(s) Supporting Document(s) ID Date Data Source [id number] 04/26/2021 03:24:15 PM EDT [facility] NT INFORMATIONPatient MRN Name Date of Age Gend*PT [id number] Janes Catherine 1955 66 years M OPPT Location Admission Date/Time Visit ID Attending Provider --- --- --- Pedro Smith MD([id number]) EPI ID CSN Admitting Provider [id number] ---INTERVENTIONAL RADIOLOGY AND OUT PATIENT HISTORY PHYSICALName: Janes Catherine : 1955 Sex: male Care Provider: BRADY CHAMBERSIAGNOSIS: Postsurgical malabsorption not elsewhere classifiedTREATMENT/PROCEDURE: IR cholangiogram biliary tube checkHISTORY OF PRESENT ILLNESS: 66 years old white male with history of liverabscess at for 01/25/2021. He had to have a biliary tube placed at thattime. Denies any drainage, redness, warmth, streaking. 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 He is to have imaging for possibleremoval/exchange of biliary tube (cholangiogram).PAST MEDICAL HISTORY:Past Medical History:Diagnosis Date Atrial fibrillation 04/18/2015 BPH (benign prostatic hyperplasia) 04/18/2015 CAD (coronary artery disease) 04/18/2015 Cellulitis 12/24/2015 CHF (congestive heart failure) Chronic right-sided heart failure 12/24/2015 Hypertension Hypothyroidism 04/18/2015 NSTEMI (non-ST elevated myocardial infarction) 12/24/2015 Obesity 04/18/2015 Postsurgical malabsorption, not elsewhere classified Sick sinus syndrome 04/18/2015 Sleep apnea 04/18/2015 uses CPAP Sleep apnea UTI (lower urinary tract infection) 04/18/2015 Ventricular fibrillation 04/18/2015PAST SURGICAL HISTORY:Past Surgical History:Procedure Laterality Date CARDIAC PACEMAKER PLACEMENT cardiac stents CORONARY ARTERY BYPASS GRAFT 2001 GASTRIC BYPASS INSERT / REPLACE AICD LEAD N/A 07/18/2016 Procedure: REVISE IMPLANT CARDIOVERTER DEFIBRILLATOR LEAD W C ARM ; Surgeon:Oleksandr Lawrence MD, FACC, RS; Location: [facility] [place]; Service: Pacemakers;Laterality: N/A; ST JUDEALLERGIES:AllergiesAllergen Reactions Amiodarone Other (See Comments) Says caused breathing problems Lipitor [Atorvastatin] Other (See Comments) UnknownMEDICATIONS:Current Outpatient MedicationsMedication Sig Dispense Refill Apixaban (Eliquis) 5 MG TABS tablet Take 5 mg by mouth 2 (two) times a day aspirin EC 81 MG EC tablet Take 81 mg by mouth nightly Calcium Citrate-Vitamin D (CALCIUM CITRATE + D PO) Take 2 tablets by mouthdaily Cholecalciferol (VITAMIN D3) 5000 UNITS capsule Take 5,000 Units by mouthnightly clotrimazole-betamethasone (LOTRISONE) cream Apply 1 application topically 2(two) times a day as needed CRANBERRY PO Take by mouth digoxin (LANOXIN) 250 MCG tablet Take 250 mcg by mouth daily docusate sodium (COLACE) 100 MG capsule Take 100 mg by mouth daily as neededfor constipation Ferrous Fumarate 325 (106 FE) MG TABS Take 1 tablet by mouth daily finasteride (PROSCAR) 5 MG tablet Take 5 mg by mouth daily fluconazole (DIFLUCAN) 200 MG tablet Take 200 mg by mouth daily For 14 daysstarting 04/18/21 fluticasone (FLONASE) 50 MCG/ACT nasal spray 2 sprays into each nostrilnightly furosemide (LASIX) 40 MG tablet Take 40 mg by mouth daily gabapentin (NEURONTIN) 300 MG capsule Take 300 mg by mouth 2 (two) times a day levofloxacin (LEVAQUIN) 500 MG tablet Take 500 mg by mouth daily For 14 daysstarting 04/18/21 levothyroxine (Synthroid) 200 MCG tablet Take 200 mcg by mouth daily With 12.5mcg for total of 212 mcg levothyroxine (SYNTHROID, LEVOTHROID) 25 MCG tablet Take 12.5 mcg by mouthdaily With 200 mcg for total of 212 mcg loratadine (CLARITIN) 10 MG tablet Take 10 mg by mouth nightly metoprolol (LOPRESSOR) 50 MG tablet Take 50 mg by mouth 2 (two) times a day midodrine (PROAMATINE) 5 MG tablet Take 5 mg by mouth daily as needed (ifblood pressure < 100) nitroglycerin (NITROSTAT) 0.[address] 0.4 mg under the tongue every5 (five) minutes as needed for chest pain pantoprazole (PROTONIX) 40 MG tablet Take 40 mg by mouth nightly Pediatric Psrajpyi-Bibszowq-P (FLINTSTONES GUMMIES) chewable tablet Chew 2tablets nightly potassium chloride (MICRO-K) 10 MEQ CR capsule Take 20 mEq by mouth 2 (two)times a day predniSONE (DELTASONE) 10 MG tablet Take 10 mg by mouth daily rosuvastatin (CRESTOR) 20 MG tablet Take 20 mg by mouth nightly tamsulosin (FLOMAX) 0.4 MG CAPS Take 0.4 mg by mouth daily vitamin B-12 (CYANOCOBALAMIN) 500 MCG tablet Take 500 mcg by mouth dailyNo current facility-administered medications for this visit.REVIEW OF SYSTEMS:Respiratory: Denies any shortness of breath, cough, yellow sputum p roduction orwheezing.Cardiovascular: Denies any chest pain, pressure or tightness. Denies anyparoxysmal nocturnal dyspnea or orthopnea.GI: Denies nausea, vomiting, diarrhea, constipation or melena.Neurologic: Denies any numbness, tingling, tremors or syncope.Vascular: Denies any edema. Denies claudication.BP 133/75 (BP Location: Right upper arm, Patient Position: Sitting) | Pulse 80| Ht 1.905 m (6' 3") | Wt (!) 179.1 kg (394 lb 14.4 oz) | SpO2 96% | BMI49.36 kg/m PHYSICAL EXAM:Airway - 1Mental and Neurological Status: [id number]: Clear to auscultation. No wheezes, rhonchi or crackles.HEART: Rate rhythm regular. S1, S2. No murmur, rub or gallop.ABDOMEN: Bowel sounds positive times four. Soft, non tender. No reboundtenderness. No hepatosplenomegaly. Negative CVAT.EXTREMITIES: Pulses are symmetrical. +1-2 pitting edema to lower extremitiesbilaterally with hypotrophic changes and hyperpigmentation noted.04/26/2021 3:24 PMAYANA Hernandez* Name Value Range Interpretation Code Description Data Lesley rce(s) Supporting Document(s) ID Date Data Source [id number] 04/26/2021 07:30:31 PM EDT [facility] Name Value Range Interpretation Code Description Data Lesley rce(s) Supporting Document(s) APTT 29.1 s (22.0-34.3) [facility] ID Date Data Source [id number] 04/26/2021 07:30:31 PM EDT [facility] Name Value Range Interpretation Code Description Data Lesley rce(s) Supporting Document(s) PT 11.6 s (9.2-11.9) [facility] INR 1.12 [facility] SUGGESTED THERAPEUTIC RANGES USING INR F ORSTABILIZED ANTICOAGULATED PATIENTS:STANDARD DOSE THERAPY INR 2.0-3.0 DVT, PE, PREVENT DVT OR EMBOLISMHIGH DOSE THERAPY INR 2.5-3.5 PREVENT EMBOLISM FROM MECHANICAL HEART VALVE ID Date Data Source [id number] 04/26/2021 07:07:15 PM EDT [facility] Name Value Range Interpretation Code Description Data Lesley rce(s) Supporting Document(s) SODIUM 141 mmol/L (136-145) [facility] POTASSIUM 4.0 mmol/L (3.6-5.2) [facility] CHLORIDE 103 mmol/L (100-108) [facility] CO2 27 mmol/L (22-31) [facility] ANION GAP 11 mmol/L (7-16) [facility] UREA NITROGEN 16 mg/dL (7-24) [facility] CREATININE 0.84 mg/dL (0.80-1.30) [facility] BUN/CREAT RATIO 19.0 RATIO (10.0-20.0) [facility] GLUCOSE 161 mg/dL (70-99) H [facility] CALCIUM 8.7 mg/dL (8.4-10.2) [facility] GFR >60 ml/min/1.73m2 (>59) [facility] GFR ( AMER) >60 ml/min/1.73m2 (>59) [facility] GFR INTERPRETATION [facility] --NORMAL KIDNEY FUNCTION OR MILD DISEASE - GFR >OR= 60CHRONIC KIDNEY DISEASE - GFR 15 - 59RENAL FAILURE - GFR <15 Est. GFR calculation based on the MDRDstudy equation, which assumes a steadystate for creatinine. Est. GFR should notbe used for medication dosing. ID Date Data Source [id number] 04/26/2021 06:45:44 PM EDT [facility] Name Value Range Interpretation Code Description Data Lesley rce(s) Supporting Document(s) WBC 14.5 10*3/uL (4.1-11.0) H [facility] RBC 4.42 10*6/uL (4.60-6.10) L [facility] HGB 12.5 g/dL (13.5-18.0) L [facility] HCT 39.0 % (41.0-53.0) L [facility] MCV 88.3 fL (80.0-95.0) [facility] MCH 28.3 pg (27.0-32.0) [facility] MCHC 32.1 g/dL (32.0-36.0) [facility] RDW 15.5 % (10.5-14.5) H [facility] PLT 247 10*3/uL (150-450) [facility] MPV 7.7 fL (7.1-10.7) [facility] NEUT % 77.5 % (35.0-75.0) H [facility] LYMPH % 13.2 % (16.0-52.0) L [facility] MONO % 6.3 % (0.0-8.0) [facility] EOS % 2.7 % (0.0-5.0) [facility] BASO % 0.3 % (0.0-4.0) [facility] NEUT # 11.2 10*3/uL (1.8-7.7) [facility] LYMPH # 1.9 10*3/uL (1.2-4.8) [facility] MONO # 0.9 10*3/uL (0.0-0.8) H [facility] Eosinophils [#/volume] in Blood by Automated count 0.4 10*3/uL (0.0-0 .5) [facility] BASO # 0.0 10*3/uL (0.0-0.2) [facility] ID Date Data Source [id number] 04/18/2021 10:50:00 AM EDT [facility] ([facility]) Name Value Range Interpretation Code Description Data Lesley rce(s) Supporting Document(s) Erythrocyte sedimentation rate by Westergren method 58 mm/hr 0-20 [facility] ([facility][1]) ID Date Data Source [id number] 04/18/2021 10:50:00 AM EDT [facility] Name Value Range Interpretation Code Description Data Lesley rce(s) Supporting Document(s) White Blood Count 14.2 10 4.0-10.0 [facility] ([facility]) Hematocrit 38.9 % 42.0-52.0 [facility] ([facility]) Red Blood Count 4.27 10 4.30-6.10 [facility] ([facility]) Hemoglobin 12.1 g/dL 13.5-17.5 [facility] ([facility][1]) Mean Corpuscular Volume 91.1 fl 80.0-96.0 M [facility] ([facility][1]) Mean Corpuscular HGB Conc 31.1 g/dL 32.0-36.5 [facility] ([facility][1]) Mean Corpuscular Hemoglobin 28.3 pg 27.0-33.0 [facility] ([facility]) Red Cell Distribution Width 14.4 % 11.5-14.5 [facility] ([facility]) Platelet Count, Automated 265 10 150-450 [facility] ([facility]) Neutrophils % 69.1 % 36.0-66.0 [facility] ([facility]) Eos % 4.4 % 0.0-3.0 [facility] Dupage % 8.5 % 2.0-8.0 [facility] Lymph % 16.7 % 24.0-44.0 [facility] Immature Granulocyte % 0.8 % 0-3.0 [facility]) Baso % 0.5 % 0.0-1.0 [facility] Nucleated Red Blood Cell % 0.0 % 0-0 [facility] Neutrophils # 9.8 10 1.5-8.5 [facility] Lymph # 2.4 10 1.5-5.0 [facility] Dupage # 1.2 10 0.0-0.8 [facility] Baso # 0.1 10 0.0-0.2 [facility] Eos # 0.6 10 0.0-0.5 [facility] ID Date Data Source [id number] 04/18/2021 10:50:00 AM EDT [facility] ([facility]) Name Value Range Interpretation Code Description Data Lesley rce(s) Supporting Document(s) C reactive protein [Mass/volume] in Serum or Plasma by High sensitivity method 5.62 mg/dL 0.00-0.30 [facility] ([facility]) ID Date Data Source [id number] 04/18/2021 10:50:00 AM EDT [facility] ([facility]) Name Value Range Interpretation Code Description Data Lesley rce(s) Supporting Document(s) Glucose, Fasting 169 mg/dL 70-100 [facility] ([facility]) Blood Urea Nitrogen 17 mg/dL 7-18 [facility] ([facility]) Creatinine For GFR 0.94 mg/dL 0.70-1.30 [facility] ([facility]) Glomerular Filtration Rate Laboratory [facility]) <content>Units are mL/min/1.73 m2</content>
<content></content>
<content>Chronic Kidney Disease Staging per NKF:</content>
<content></content>
<content>Stage I & II GFR >=60 Normal to Mildly Decreased</content>
<content>Stage III GFR 30- 59 Moderately Decreased</content>
<content>Stage IV GFR 15-29 Severely Decreased</content>
<content>Stage V GFR <15 Very Little GFR Left</content>
<content>ESRD GFR <15 on JAVA WE[employer] APPLICATION DEVELOPER</content>
<content></content> Sodium Level 139 meq/L 136-145 [facility] ([facility]) Potassium Serum 3.3 meq/L 3.5-5.1 [facility] ([facility]) Chloride Level 102 meq/L 98-107 [facility] ([facility]) Anion Gap 8 meq/L 8-16 [facility] ([facility]) Calcium Level 8.6 mg/dL 8.8-10.2 [facility] ([facility]) Carbon Dioxide Level 29 meq/L 21-32 [facility] ([facility]) Alt/SGPT 58 U/L 12-78 [facility] ([facility] Ast/Sgot 57 U/L 7-37 [facility] ([facility]) Alkaline Phosphatase 335 U/L 45-117 [facility] ([facility]) Total Protein 6.6 GM/DL 6.4-8.2 [facility] ([facility]) Bilirubin,Total 0.9 mg/dL 0.2-1.0 [facility] ([facility]) Albumin/Globulin Ratio 0.8 [facility] ([facility]) Albumin 3.0 GM/DL 3.2-5.2 [facility] ([facility]) ID Date Data Source [id number] 04/18/2021 10:50:00 AM EDT [facility] ([facility]) Name Value Range Interpretation Code Description Data Lesley rce(s) Supporting Document(s) Magnesium [Mass/volume] in Serum or Plasma 2.1 mg/dL 1.8-2.4 [facility] ([facility]) ID Date Data Source [id number] 04/18/2021 10:50:00 AM EDT [facility] ([facility] Name Value Range Interpretation Code Description Data Lesley rce(s) Supporting Document(s) Erythrocyte sedimentation rate by Westergren method 58 mm/hr 0-20 Above high normal [facility] ([facility] ) ID Date Data Source [id number] 04/18/2021 10:50:00 AM EDT [facility] ([facility] Name Value Range Interpretation Code Description Data Lesley rce(s) Supporting Document(s) White Blood Count 14.2 10 4.0-10.0 Above high normal [facility] ([facility] Hematocrit 38.9 % 42.0-52.0 Below low normal [facility] ( [facility] Hemoglobin 12.1 g/dL 13.5-17.5 Below low normal [facility] ( [facility] Red Blood Count 4.27 10 4.30-6.10 Below low normal [facility] ([facility] Mean Corpuscular Hemoglobin 28.3 pg 27.0-33.0 Norm al (applies to non-numeric results) [facility] ([facility] ) Mean Corpuscular HGB Conc 31.1 g/dL 32.0-36.5 Below low normal [facility] ([facility] Mean Corpuscular Volume 91.1 fl 80.0-96.0 Normal ( applies to non-numeric results) [facility] ([facility] Red Cell Distribution Width 14.4 % 11.5-14.5 Norm al (applies to non-numeric results) [facility] ([facility] ) Platelet Count, Automated 265 10 150-450 Normal (applies to non-numeric results) [facility] ([facility] Neutrophils % 69.1 % 36.0-66.0 Above high normal [facility] ([facility] Eos % 4.4 % 0.0-3.0 Above high normal [facility] ([facility] Dupage % 8.5 % 2.0-8.0 Above high normal [facility] ([facility] Lymph % 16.7 % 24.0-44.0 Below low normal [facility] ( [facility] Baso % 0.5 % 0.0-1.0 Normal (applies to non-numeric resul ts) [facility] ([facility] Immature Granulocyte % 0.8 % 0-3.0 Normal (applies to non-n umeric results) [facility] ([facility] Nucleated Red Blood Cell % 0.0 % 0-0 Normal (applies to n on-numeric results) [facility] ([facility] Lymph # 2.4 10 1.5-5.0 Normal (applies to non-numeric resul ts) [facility] ([facility] Neutrophils # 9.8 10 1.5-8.5 Above high normal [facility] ([facility] Dupage # 1.2 10 0.0-0.8 Above high normal [facility] ([facility] Baso # 0.1 10 0.0-0.2 Normal (applies to non-numeric resul ts) [facility] ([facility] Eos # 0.6 10 0.0-0.5 Above high normal [facility] ([facility] ID Date Data Source [id number] 04/18/2021 10:50:00 AM EDT [facility] ([facility] Name Value Range Interpretation Code Description Data Lesley rce(s) Supporting Document(s) C reactive protein [Mass/volume] in Serum or Plasma by High sensitivity method 5.62 mg/dL 0.00-0.30 Above high normal [facility] ([facility] ID Date Data Source [id number] 04/18/2021 10:50:00 AM EDT [facility] ([facility] Name Value Range Interpretation Code Description Data Lesley rce(s) Supporting Document(s) Blood Urea Nitrogen 17 mg/dL 7-18 Normal (applies to non-nume vanesa results) [facility] ([facility] Glucose, Fasting 169 mg/dL 70-100 Above high normal M [facility] ([facility] Glomerular Filtration Rate Laboratory test result Normal (applies to non- numeric results) [facility] ([facility] ) <content>Units are mL/min/1.73 m2</content>
<content></content>
<content>Chronic Kidney Disease Staging per NKF:</content>
<content></content>
<content>Stage I & II GFR >=60 Normal to Mildly Decreased</content>
<content>Stage III GFR 30- 59 Moderately Decreased</content>
<content>Stage IV GFR 15-29 Severely Decreased</content>
<content>Stage V GFR <15 Very Little GFR Left</content>
<content>ESRD GFR <15 on [employer] DEVELOPER</content>
<content></content> Creatinine For GFR 0.94 mg/dL 0.70-1.30 Normal (applies to non -numeric results) [facility] ([facility] Sodium Level 139 meq/L 136-145 Normal (applies to non-numeric res ults) [facility] ([facility] Potassium Serum 3.3 meq/L 3.5-5.1 Below low normal [facility] ([facility] Carbon Dioxide Level 29 meq/L 21-32 Normal (applies to non-num corina results) [facility] ([facility] Chloride Level 102 meq/L 98-107 Normal (applies to non-numeric r esults) [facility] ([facility] Calcium Level 8.6 mg/dL 8.8-10.2 Below low normal [facility] ([facility] Anion Gap 8 meq/L 8-16 Normal (applies to non-numeric resul ts) [facility] ([facility] Alkaline Phosphatase 335 U/L 45-117 Above high normal [facility] ([facility] Alt/SGPT 58 U/L 12-78 Normal (applies to non-numeric resul ts) [facility] ([facility] Ast/Sgot 57 U/L 7-37 Above high normal [facility] ([facility] Bilirubin,Total 0.9 mg/dL 0.2-1.0 Normal (applies to non-numeric results) [facility] ([facility] Total Protein 6.6 GM/DL 6.4-8.2 Normal (applies to non-numeric re sults) [facility] ([place] Albumin 3.0 GM/DL 3.2-5.2 Below low normal [facility] ( [facility] Albumin/Globulin Ratio 0.8 Normal (applies to non-n umeric results) [facility] ID Date Data Source [id number] 04/18/2021 10:50:00 AM EDT [facility] ([facility] Name Value Range Interpretation Code Description Data Lesley rce(s) Supporting Document(s) Magnesium [Mass/volume] in Serum or Plasma 2.1 mg/dL 1.8-2 .4 Normal (applies to non-numeric results) [facility] ([facility]) ID Date Data Source [id number] 2021 11:00:00 AM EDT [facility] ([facility] Name Value Range Interpretation Code Description Data Lesley rce(s) Supporting Document(s) Thyrotropin [Units/volume] in Serum or Plasma 1.660 uIU/ML 0. 358-3.740 Normal (applies to non-numeric results) [facility] ([facility] ID Date Data Source [id number] 2021 11:00:00 AM EDT [facility] ([facility] Name Value Range Interpretation Code Description Data Lesley rce(s) Supporting Document(s) Hemoglobin A1c 5.0 % Normal (applies to non-numeric r esults) [facility] ([facility] <content>REFERENCE RANGES:</content><br/ ><content></content>
<content><=5.6% NORMAL</content>
<content>5.7-6.4% SUGGESTS IMPAIRED GLUCOSE METABOLISM/PREDIABETIC</content>
<content>>= 6.5% ABNORMAL</content>
<content></content> Estimated Average Glucose 97 mg/dL 60-110 Normal (applies to non-numeric results) [facility] ([facility] ID Date Data Source [id number] 2021 11:00:00 AM EDT [facility] ([facility] Name Value Range Interpretation Code Description Data Lesley rce(s) Supporting Document(s) Cholesterol Level 134 mg/dL Normal (applies to non-numeri c results) [facility] ([facility] Triglycerides Level 137 mg/dL Normal (applies to non-nume vanesa results) [facility] ([facility] HDL Cholesterol 50 mg/dL Normal (applies to non-numeric results) [facility] ([facility] Non-HDL-C 84 mg/dL Normal (applies to non-numeric resul ts) [facility] ([facility] LDL Cholesterol 57 mg/dL Normal (applies to non-numeric results) [facility] ([facility] Cholesterol Risk Ratio 2.680 Normal (applies to non-n umeric results) [facility] ([facility] ID Date Data Source [id number] 2021 11:00:00 AM EDT [facility] Name Value Range Interpretation Code Description Data Lesley rce(s) Supporting Document(s) White Blood Count 10.5 10 4.0-10.0 Above high normal [facility] ([facility] Hemoglobin 11.4 g/dL 13.5-17.5 Below low normal [facility] ( [facility] Red Blood Count 3.97 10 4.30-6.10 Below low normal [facility] ([facility] Hematocrit 37.9 % 42.0-52.0 Below low normal [facility] ( [facility] Mean Corpuscular Hemoglobin 28.7 pg 27.0-33.0 Norm al (applies to non-numeric results) [facility] ([facility] ) Mean Corpuscular Volume 95.5 fl 80.0-96.0 Normal ( applies to non-numeric results) [facility] ([facility] ) Platelet Count, Automated 238 10 150-450 Normal (applies to non-numeric results) [facility] ([facility] Red Cell Distribution Width 15.7 % 11.5-14.5 Above high normal [facility] ([facility] Mean Corpuscular HGB Conc 30.1 g/dL 32.0-36.5 Below low normal [facility] ([facility] Nucleated Red Blood Cell % 0.0 % 0-0 Normal (applies to n on-numeric results) [facility] ID Date Data Source [id number] 2021 11:00:00 AM EDT [facility] ([facility] Name Value Range Interpretation Code Description Data Lesley rce(s) Supporting Document(s) Glucose, Fasting 141 mg/dL 70-100 Above high normal M [facility] ([facility] Blood Urea Nitrogen 23 mg/dL 7-18 Above high normal [facility] ([facility] Creatinine For GFR 1.06 mg/dL 0.70-1.30 Normal (applies to non -numeric results) [facility] ([facility] Potassium Serum 3.0 meq/L 3.5-5.1 Below low normal [facility] ([facility] Glomerular Filtration Rate Laboratory test result Normal (applies to non- numeric results) [facility] ([facility] ) <content>Units are mL/min/1.73 m2</content>
<content></content>
<content>Chronic Kidney Disease Staging per NKF:</content>
<content></content>
<content>Stage I & II GFR >=60 Normal to Mildly Decreased</content>
<content>Stage III GFR 30- 59 Moderately Decreased</content>
<content>Stage IV GFR 15-29 Severely Decreased</content>
<content>Stage V GFR <15 Very Little GFR Left</content>
<content>ESRD GFR <15 on [employer]</content>
<content></content> Sodium Level 142 meq/L 136-145 Normal (applies to non-numeric res ults) [facility] ([facility] Chloride Level 103 meq/L 98-107 Normal (applies to non-numeric r esults) [facility] ([facility] Carbon Dioxide Level 34 meq/L 21-32 Above high normal [facility] ([facility] Ast/Sgot 73 U/L 7-37 Above high normal [facility] ([facility] Calcium Level 9.4 mg/dL 8.8-10.2 Normal (applies to non-numeric re sults) [facility] ([facility] Anion Gap 5 meq/L 8-16 Below low normal [facility] ( [facility] Alt/SGPT 80 U/L 12-78 Above high normal [facility] ([facility] Bilirubin,Total 1.6 mg/dL 0.2-1.0 Above high normal [place] [facility]ENT ([facility] Alkaline Phosphatase 495 U/L 45-117 Above high normal [facility] ([facility] Albumin 3.2 GM/DL 3.2-5.2 Normal (applies to non-numeric resul ts) [facility] ([facility] Albumin/Globulin Ratio 0.9 Normal (applies to non-n umeric results) [facility] ([facility] Total Protein 6.7 GM/DL 6.4-8.2 Normal (applies to non-numeric re sults) [facility] ([facility] ID Date Data Source [id number] 03/08/2021 12:26:00 PM EDT [facility] ([facility]) Name Value Range Interpretation Code Description Data Lesley rce(s) Supporting Document(s) Alanine aminotransferase [Enzymatic activity/volume] in Serum or Plasma 106 [facility] ([facility]) Albumin [Mass/volume] in Serum or Plasma 2.9 [facility] ([facility]) Carbon dioxide, total [Moles/volume] in Serum or Plasma 34 [facility] ([facility] Calcium [Mass/volume] in Serum or Plasma 8.6 [facility] ([facility]) Chloride [Moles/volume] in Serum or Plasma 104 [facility] ([facility]) Alkaline phosphatase [Enzymatic activity/volume] in Serum or Plasma 5 53 [facility] ([facility]) Potassium [Moles/volume] in Serum or Plasma 3.6 [facility] ([facility]) Protein [Mass/volume] in Serum or Plasma 6.4 [facility] ([facility]) Sodium 143 [facility] ([facility]) Glucose 186 83-110 [facility] [place] Aspartate aminotransferase [Enzymatic activity/volume] in Se rum or Plasma 109 [facility] ([facility]) Urea nitrogen [Mass/volume] in Serum or Plasma 18 [facility] ([facility]) Creatinine For GFR 1.11 [facility] ([facility]) ID Date Data Source [id number] 03/08/2021 12:26:00 PM EDT [facility] ([facility]) Name Value Range Interpretation Code Description Data Lesley rce(s) Supporting Document(s) White Blood Count 8.3 5.0-10.0 [facility] Hemoglobin 10.4 [facility] Platelets 197 172-450 [facility] ([facility]) Red Blood Count 3.59 4.00-5.40 [facility] ([facility]) Hematocrit 34.7 [facility] ([facility]) ID Date Data Source ERYTHROCYTE SEDIMENTATION RATE 03/08/2021 12:00:00 AM EDT eC W1 ([facility]) Name Value Range Interpretation Code Description Data Lesley rce(s) Supporting Document(s) 52 0-20 ERYTHROCYTE SEDIMENTATION RATE eCW1 ([facility]) ID Date Data Source C REACTIVE PROTEIN QUANTITATIV ([facility]) 03/08/2021 12:00 :00 AM EDT eCW1 ([facility]) Name Value Range Interpretation Code Description Data Lesley rce(s) Supporting Document(s) 2.44 0.00-0.30 C REACTIVE PROTEIN QUANTI TATIV eCW1 ([facility]) ID Date Data Source Comprehensive Metabolic Profile (CMP) 03/08/2021 12:00:00 AM EDT eCW1 ([facility]) Name Value Range Interpretation Code Description Data Lesley rce(s) Supporting Document(s) 186 70-100 GLUCOSE, FASTING eCW1 ([facility]) 18 7-18 BLOOD UREA NITROGEN eCW1 ([facility]) 1.11 0.70-1.30 CREATININE FOR GFR eCW1 ([facility]) 143 136-145 SODIUM LEVEL eCW1 ([facility]) > 60.0 >49 GLOMERULAR FILTRATION RATE eCW 1 ([facility]) 104 98-107 CHLORIDE LEVEL eCW1 ([facility]) 3.6 3.5-5.1 POTASSIUM SERUM eCW1 ([facility]) 34 21-32 CARBON DIOXIDE LEVEL eCW1 ([facility]) 109 7-37 AST/SGOT eCW1 ([facility]) 8.6 8.8-10.2 CALCIUM LEVEL eCW1 ([facility]) 106 12-78 ALT/SGPT eCW1 ([facility]) 553 45-117 ALKALINE PHOSPHATASE eCW1 ([facility]) 6.4 6.4-8.2 TOTAL PROTEIN eCW1 ([facility]) 1.9 0.2-1.0 BILIRUBIN,TOTAL eCW1 ([facility]) 2.9 3.2-5.2 ALBUMIN eCW1 ([facility]) 0.8 ALBUMIN/GLOBULIN RATIO eCW1 ([facility]) ID Date Data Source [id number] 03/04/2021 02:30:00 PM EDT [facility] ([facility], ) Name Value Range Interpretation Code Description Data Lesley rce(s) Supporting Document(s) Ast/Sgot 134 U/L 7-37 Above high normal [facility] ([facility], ) Alt/SGPT 120 U/L 12-78 Above high normal [facility] ([facility]) Alkaline Phosphatase 592 U/L 45-117 Above high normal [facility] ([facility]) Bilirubin,Total 2.5 mg/dL 0.2-1.0 Above high normal ME DENT ([facility]) Bilirubin,Direct 2.0 mg/dL 0.0-0.2 Above high normal M EDENT ([facility]) Total Protein 6.8 GM/DL 6.4-8.2 Normal (applies to non-numeric re sults) [facility] ([facility]) Albumin 2.8 GM/DL 3.2-5.2 Below low normal [facility] ( [facility]) Albumin/Globulin Ratio 0.7 Normal (applies to non-n umeric results) [facility] ([facility]) ID Date Data Source [id number] 02/28/2021 08:59:00 AM EDT [facility] ([facility]) Name Value Range Interpretation Code Description Data Lesley rce(s) Supporting Document(s) Alanine aminotransferase [Enzymatic activity/volume] in Serum or Plasma 111 [facility] ([facility]) Albumin [Mass/volume] in Serum or Plasma 2.8 [facility] ([facility]) Calcium [Mass/volume] in Serum or Plasma 9.1 [facility] ([facility]) Carbon dioxide, total [Moles/volume] in Serum or Plasma 33 [facility] ([facility]) Chloride [Moles/volume] in Serum or Plasma 101 [facility] ([facility]) Potassium [Moles/volume] in Serum or Plasma 4.2 [facility] ([facility]) Alkaline phosphatase [Enzymatic activity/volume] in Serum or Plasma 6 36 [facility] ([facility]) Sodium 139 [facility] ([facility]) Protein [Mass/volume] in Serum or Plasma 6.7 [facility] ([facility]) Aspartate aminotransferase [Enzymatic activity/volume] in Se rum or Plasma 101 [facility] ([facility]) Urea nitrogen [Mass/volume] in Serum or Plasma 23 [facility] ([facility]) Creatinine For GFR 1.00 [facility] ([facility]) Glucose 109 70-100 [facility] ([facility]) ID Date Data Source [id number] 02/28/2021 08:59:00 AM EDT [facility] ([facility]) Name Value Range Interpretation Code Description Data Lesley rce(s) Supporting Document(s) White Blood Count 10.4 4.3-10.9 [facility] ([facility]) Platelets 213 130-400 [facility] ([facility]) Red Blood Count 3.46 4.70-6.20 [facility] ([facility]) Hematocrit 33.3 39.0-50.0 [facility] ([facility]) Hemoglobin 10.1 13.0-17.0 [facility] ([facility]) ID Date Data Source [id number] 02/09/2021 04:14:35 PM EDT [facility] Name Value Range Interpretation Code Description Data Lesley rce(s) Supporting Document(s) History and Physical [facility] GEUWSo4pRlGKHuOs18/GZTgmOEJmq5HbLBaiLHd6QKkqVHYoW7FlGPT8gD5zCMG1JWwJQuHoTiDxRRO6 lbm [file] MDAwMDAzMzAzMCAwMDAwMCBuDQowMDAwMDMzMTAxID VpWBPhXF2FBnCbEFYaLmNpTWOsZKVmAJZwjm8OiHDxpYwvpi1CJAeYZa9HtCcuPHPdCZloSx4uoDEmSM GmMODRAu9AwrIgETXcFYIPQZphGIKzCQWmNAmaBXw0CNc9ORL1FUKyXQU9CmKqDkBcVLXyGxR9ZtS1Yr T8RwMtSdDlDWH5VNF3RNCbYqB4QAGjTXD1OYUhDKH+ JN0wNKv+Qk4Cl3XzgkZ2qeDvSKwcDuD5GS9VMYLDV3LIYs== ID Date Data Source [id number] 02/08/2021 01:39:37 PM EDT 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/MXhfzpsr+UVD8kb7e+3Q196YVuHt0kY5kc/FNRJf+NpPa7tazW2nNU+CRic4VFYDmytB6yTo8BXC1 [file] AgICAgICAgICAgICAgICAgICAgICAgICAgICAgICAg ICAgICAgICAgICAgICAgICAgICAgICANCiAgICAgICAgICAgICAgICAgICAgICAgICAgICAgICAgICAg ICAgICAgICAgICAgICAgICAgICAgICAgICAgICAgICAgICAgICAgICAgICAgICAgICAgICAgICAgICAg ICAgICANCiAgICAgICAgICAgICAgICAgICAgICAgIC AgICAgICAgICAgICAgICAgICAgICAgICAgICAgICAgICAgICAgICAgICAgICAgICAgICAgICAgICAgIC AgICAgICAgICAgICAgICANCiAgICAgICAgICAgICAgICAgICAgICAgICAgICAgICAgICAgICAgICAgIC AgICAgICAgICAgICAgICAgICAgICAgICAgICAgICAg ICAgICAgICAgICAgICAgICAgICAgICAgICANCiAgICAgICAgICAgICAgICAgICAgICAgICAgICAgICAg ICAgICAgICAgICAgICAgICAgICAgICAgICAgICAgICAgICAgICAgICAgICAgICAgICAgICAgICAgICAg ICAgICAgICANCiAgICAgICAgICAgICAgICAgICAgIC AgICAgICAgICAgICAgICAgICAgICAgICAgICAgICAgICAgICAgICAgICAgICAgICAgICAgICAgICAgIC AgICAgICAgICAgICAgICAgICANCiAgICAgICAgICAgICAgICAgICAgICAgICAgICAgICAgICAgICAgIC AgICAgICAgICAgICAgICAgICAgICAgICAgICAgICAg ICAgICAgICAgICAgICAgICAgICAgICAgICAgICANCiAgICAgICAgICAgICAgICAgICAgICAgICAgICAg ICAgICAgICAgICAgICAgICAgICAgICAgICAgICAgICAgICAgICAgICAgICAgICAgICAgICAgICAgICAg ICAgICAgICAgICANCiAgICAgICAgICAgICAgICAgIC AgICAgICAgICAgICAgICAgICAgICAgICAgICAgICAgICAgICAgICAgICAgICAgICAgICAgICAgICAgIC AgICAgICAgICAgICAgICAgICAgICANCiAgICAgICAgICAgICAgICAgICAgICAgICAgICAgICAgICAgIC AgICAgICAgICAgICAgICAgICAgICAgICAgICAgICAg ICAgICAgICAgICAgICAgICAgICAgICAgICAgICAgICANCjw/nUDcX2cfxSZamtT7A0wcAf2FPa2DNI0a v1ZxOVKnDJspteTcCxhSWdFfVGVrOkrJNtv4UFlwKQ4SeOMuN2IbG1HkYMyqOM4KFJVzXIJgoBEuHTMm DULfTtQ7XHJqEZylEA4ToZOmVGxmKRJvEAXgWqFdRT DrJIJwYFLdGDFfLCSLDSJeONOxSyTmYBWgKKEkHPgfCQBDHO3OWeXyH0XcjX62EHlMDo8+DQplbmRvYm iTMqBaFVSqh9UhJUs1LM8XRQKxFqyof5TqCCJiJMYTSPuxDY7EGXK8XICfVMAjQu3TEEOsM910hnAaJI 2SQf7ZOyRjXA5oen4AQWCfTFOeUepNPcz7BQrgBB0N uUIaGHkLzFYszBPrM0DtN4UegPTuyTRzrXILntJwp807PJajcAmoaP1vJFKKNAYukKR5RxZ2DjPdOzHj ZLW6UeTaYT6kUQuzHX5FODY1RRpjCQHdFWYmK8xJPvFnTVVoOeIeoZgxIZ9LBbZuO0IgshCxpAS5OAJc IFINCj4+GOzcfcLiYrnNUzSuHCDwa6VyVGg6CN0PKS RhXIfzMQ9ILUKrjI1eLGarWK3MXoZsSGJaSQSOFwAmQ23srXHlONk3W2TgGdKuNLGnQtftPADnJExhAa FtZXMgWyBdDQogID4+ID4+XEmyEW7QCVmkmcKyIQGpYu3EQRVpJWXlYB9vSBDaGNPdP7R4pWsxGVRWGr MtA5zbynanFK9lWXPxW240mNjvkxYjIMIhUNPdEd5G GMTrKAW6NXHzmODlSiukPOVSEZdfBJ7AbNSlTLC7iE4pSRjyJTVnXRBiC3nARjBevGbiRJ28dLypijGh bCBdDQo+Ch6WAF8ha1TcIDq0siXtMKrxCHUtXMooAMXxWNCjNBOfPAC3VVZ4PAQKMpKuTUVwLDAdXNxq PAKkGGMalx2MYISiBGY2SZn3CRFpXRGxFEIeRYcyNM BgAMZ6TbV2JNMmUZWiLU9RTzHeJUDiGCGfGDegEUSoCUHqnb5MYVPlNALkSDG6LZOxGMCnQCHnPGpaDN CnNMS1JfB0RRIoWLTkAL3KHoPiWTMoLMd5McFkPYTmXVCiah3OQTRrCQLcAZb0ZeLuNCKaHDVjGVgxWK FuXTNeHaA7RAPgMQVpRX7IDhKrSWRhMGT4ZUliBDWo EJKcah9LRFWnWUSvBtu0PvIgPCSxVTEcUYyoHWKzSWX9ZMXvHDNxZJUvRD3SCtAgIBKoGnM0FGJlKIBr KSOxpv7KVYYvXPEsZYHzOzKkIICrUMAtMIroGLDrVJD0YrS7YVKnFOGcVH7HLnSnQQOtTaC5FsXfJCUw LVUnvu7ZYIYoWKGdJiY0DAUpDQMmZYPvQTrfLOCoMF V2XZv0EWNvKMAgKT0XWdNsPXHmOtv9BCEpYDFbQKDkig0VVHBoIDMwCII2IuVwGGSlNYEvWRqvPBIdXO Q1UfE9XWEiAWVnPR1DDlUkCZTdFkjsXWKwNTYhGOZgle0BMCRfIFAiNCC6SeWuRRKyDGQmMTgfZDYuRI W8FIj0DZCnMWJoSE0KKwRxALJzLzH9XVTdLBGdIETz fl9OECQpORZgZSh4VMRuWVPjWEAzSXpoTKNrNDAfRPSpQIXwCWOgEN0BTnGuHAAnAvA4AUBrVKFySYXc mu0ESMUiPRLkRbE6UOKxBWJjGCMaWMrrKVRvKUFeQwweXZYxIIGgTP6JXeXoRBLzUUE3WculSFRtMQTl zk4PPWQbUZN0Bey1HRUsKOCzJSRhDToiYQYiXOL1YJ GbZUIlXPDgFG4TVnMyKHXcRHC8LUGzSTZhZXDzqe4AACYySHS6QVA7NRMeMWUwVSWhNOqnVQWaDYP2BG kaBPVmBEXmEU3LAsMxNXHhMAT9TMYtQAZiTADyea6JKIZkCQA9NJu8EDHdKSJcAZTaNKjeKHLyBCB0Gb T4DLUwICDjNK8GJpLeFUIfHCq5GCFoAKDePGHrhh5J CNCpWGY6Scf2XvWqDCGvFXWoSZpuIPYlJXG9RZOkELJhBREtON9GGnDkPKekOCTIObn9BCvaR9t7XQF0 Ct4YR0Yjk9JhUMCvUFHQHSoxSW2lnkQvZXEdLs2DE4lEYhhvStboFNZzPoUgYAEySepeCQYrRZArZRKd ONBzNdGkDz5mDTC9IIV2DJT7VgI6ZMTeTSRcDSV1Wm Q0XsNuZkCgGmW9BmPfAP7HTn3UBtG1VGY8iUFvVy5VWIntAAHWGsXcOI3TZSd= ID Date Data Source [id number] 02/08/2021 10:57:00 AM EDT [facility] Name Value Range Interpretation Code Description Data Lesley rce(s) Supporting Document(s) SARS-CoV-2 RNA 2019 nCoV Real-Time RT[facility]PCR: NOT DETECTED [facility] This lab was ordered by [facility] and reported by [facility]. ID Date Data Source [id number] 02/08/2021 12:26:20 PM EDT [facility] Name Value Range Interpretation Code Description Data Lesley rce(s) Supporting Document(s) Specimen source [Identifier] of Unspecified specimen [facility] SARS-CoV-2 RNA 2019 nCoV Real-Time RT-PCR: NOT DETECTED [facility] Assay Performed [facility] Influenza virus A RNA [Presence] in Naso pharynx by Target amplification with non-probe based detection Not Detected [facility] Influenza virus B RNA [Presence] in Naso pharynx by Target amplification with non-probe based detection Not Detected [facility] Respiratory syncytial virus RNA [Presenc e] in Nasopharynx by Target amplification with non-probe based detection Not Detected [facility] Patients first test for condition [facility] 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 ID Date Data Source [id number] 02/08/2021 05:20:58 AM [facility] Name Value Range Interpretation Code Description Data Lesley rce(s) Supporting Document(s) Albumin [Mass/volume] in Serum or Plasma by Bromocresol green (BCG) dye binding method 3.0 g/dL 3.5-5.2 [facility] Bilirubin.total [Mass/volume] in Serum or Plasma 7.1 mg/dL <1.2 H [facility] Bilirubin.direct [Mass/volume] in Serum or Plasma 4.7 mg/dL <0.3 H [facility] Alkaline phosphatase [Enzymatic activity/volume] in Serum or Plasma 388 U/L 40-129 H [facility] Aspartate aminotransferase [Enzymatic activity/volume] in Serum or Plasma 91 U/L <40 H [facility] Alanine aminotransferase [Enzymatic activity/volume] in Seru m or Plasma 64 U/L <41 H [facility] Protein [Mass/volume] in Serum or Plasma 6.1 g/dL 6.4-8.3 L [facility] ID Date Data Source [id number] 02/08/2021 05:20:58 AM T [facility] Value Range Interpretation Code Description Data Lesley rce(s) Supporting Document(s) Bicarbonate [Moles/volume] in Serum 33 mmol/L 22-29 H [facility] Chloride [Moles/volume] in Serum or Plasma 99 mmol/L 98-107 [facility] Creatinine [Mass/volume] in Serum or Plasma 0.93 mg/dL 0.70-1.20 [facility] Icteric Glucose [Mass/volume] in Serum or Plasma 85 mg/dL 70-140 [facility] Potassium [Moles/volume] in Serum or Plasma 4.0 mmol/L 3.4-5.1 [facility] Sodium [Moles/volume] in Serum or Plasma 139 mmol/L 136-145 [facility] Urea nitrogen [Mass/volume] in Serum or Plasma 22 mg/dL 8-23 [facility] Anion gap 3 in Serum or Plasma 7 mmol/L 8-15 L [facility] Osmolality of Serum or Plasma by calculation 291 mosm/kg 275-300 [facility] Creatinine/Urea nitrogen [Mass Ratio] in Serum or Plasma 24 [facility] Calcium [Mass/volume] in Serum or Plasma 8.0 mg/dL 8.8-10.2 L [facility] Glomerular filtration rate/1.73 sq M pre dicted among non-blacks [Volume Rate/Area] in Serum or Plasma by Creatinine-based formula (MDRD) 85 mL/min/1.73m2 >60 [facility] Glomerular filtration rate/1.73 sq M pre dicted among blacks [Volume Rate/Area] in Serum or Plasma by Creatinine-based formula (MDRD) >60 [facility] ID Date Data Source [id number] 02/08/2021 05:20:58 AM [facility] Name Value Range Interpretation Code Description Data Lesley rce(s) Supporting Document(s) Magnesium [Mass/volume] in Serum or Plasma 1.8 mg/dL 1.6-2.4 [facility] ID Date Data Source [id number] 02/08/2021 05:20:58 AM [facility] Value Range Interpretation Code Description Data Lesley rce(s) Supporting Document(s) Phosphate [Mass/volume] in Serum or Plasma 2.7 mg/dL 2.5-4.5 [facility] ID Date Data Source [id number] 02/08/2021 06:13:12 AM [facility] Value Range Interpretation Code Description Data Lesley rce(s) Supporting Document(s) Leukocytes [#/volume] in Blood by Automated count 13.0 10*3/uL 4-10 H [facility] [address]irmed [address] Erythrocytes [#/volume] in Blood by Automated count 3.39 10*6/uL 4.6- 6.1 L [facility] Hemoglobin [Mass/volume] in Blood 9.6 g/dL 13.5-18 L [facility] Hematocrit [Volume Fraction] of Blood by Automated count 29.6 % 4 1-53 L [facility] Erythrocyte mean corpuscular volume [Entitic volume] by Auto mated count 87.4 fL 80-96 [facility] Erythrocyte mean corpuscular hemoglobin [Entitic mass] by Automated count 28.4 pg 27-33 [facility] Erythrocyte mean corpuscular hemoglobin concentration [Mass/volume] by Automated count 32.5 g/dL 32.0-36.0 [facility] Erythrocyte distribution width [Ratio] by Automated count 18.0 % 11.5-14.5 H [facility] Platelets [#/volume] in Blood by Automated count 311 10*3/uL 150-400 [facility] [address] ID Date Data Source [id number] 02/07/2021 05:32:41 AM [facility] Name Value Range Interpretation Code Description Data Lesley rce(s) Supporting Document(s) Leukocytes [#/volume] in Blood by Automated count 14.3 10*3/uL 4-10 H [facility] Erythrocytes [#/volume] in Blood by Automated count 3.43 10*6/uL 4.6- 6.1 L [facility] Hemoglobin [Mass/volume] in Blood 9.6 g/dL 13.5-18 L [facility] Hematocrit [Volume Fraction] of Blood by Automated count 30.1 % 4 1-53 L [facility] Erythrocyte mean corpuscular volume [Entitic volume] by Auto mated count 87.6 fL 80-96 [facility] Erythrocyte mean corpuscular hemoglobin [Entitic mass] by Automated count 28.1 pg 27-33 [facility] Erythrocyte mean corpuscular hemoglobin concentration [Mass/volume] by Automated count 32.0 g/dL 32.0-36.0 [facility] Erythrocyte distribution width [Ratio] by Automated count 18.0 % 11.5-14.5 H [facility] Platelets [#/volume] in Blood by Automated count 300 10*3/uL 150-400 [facility] ID Date Data Source [id number] 02/07/2021 05:50:32 AM [facility] Name Value Range Interpretation Code Description Data Lesley rce(s) Supporting Document(s) Albumin [Mass/volume] in Serum or Plasma by Bromocresol green (BCG) dye binding method 2.9 g/dL 3.5-5.2 L [facility] Bilirubin.total [Mass/volume] in Serum or Plasma 6.8 mg/dL <1.2 H [facility] Bilirubin.direct [Mass/volume] in Serum or Plasma 4.4 mg/dL <0.3 H [facility] Alkaline phosphatase [Enzymatic activity/volume] in Serum or Plasma 393 U/L 40-129 H [facility] Aspartate aminotransferase [Enzymatic activity/volume] in Serum or Plasma 83 U/L <40 H [facility] Alanine aminotransferase [Enzymatic activity/volume] in Seru m or Plasma 57 U/L <41 H [facility] Protein [Mass/volume] in Serum or Plasma 5.9 g/dL 6.4-8.3 L [facility] ID Date Data Source [id number] 02/07/2021 05:50:32 AM EDT [facility] Name Value Range Interpretation Code Description Data Lesley rce(s) Supporting Document(s) Bicarbonate [Moles/volume] in Serum 30 mmol/L 22-29 H [facility] Chloride [Moles/volume] in Serum or Plasma 102 mmol/L 98-107 [facility] Creatinine [Mass/volume] in Serum or Plasma 0.93 mg/dL 0.70-1.20 [facility] Icteric Glucose [Mass/volume] in Serum or Plasma 74 mg/dL 70-140 [facility] Potassium [Moles/volume] in Serum or Plasma 4.2 mmol/L 3.4-5.1 [facility] Sodium [Moles/volume] in Serum or Plasma 138 mmol/L 136-145 [facility] Urea nitrogen [Mass/volume] in Serum or Plasma 23 mg/dL 8-23 [facility] Anion gap 3 in Serum or Plasma 6 mmol/L 8-15 L [facility] Osmolality of Serum or Plasma by calculation 288 mosm/kg 275-300 [facility] Creatinine/Urea nitrogen [Mass Ratio] in Serum or Plasma 25 [facility] Calcium [Mass/volume] in Serum or Plasma 7.8 mg/dL 8.8-10.2 [facility] Glomerular filtration rate/1.73 sq M pre dicted among non-blacks [Volume Rate/Area] in Serum or Plasma by Creatinine-based formula (MDRD) 85 mL/min/1.73m2 >60 [facility] Glomerular filtration rate/1.73 sq M pre dicted among blacks [Volume Rate/Area] in Serum or Plasma by Creatinine-based formula (MDRD) >60 [facility] ID Date Data Source [id number] 02/07/2021 05:50:32 AM [facility] Name Value Range Interpretation Code Description Data Lesley rce(s) Supporting Document(s) Magnesium [Mass/volume] in Serum or Plasma 2.0 mg/dL 1.6-2.4 [facility] ID Date Data Source [id number] 02/07/2021 05:50:32 AM [facility] Value Range Interpretation Code Description Data Lesley rce(s) Supporting Document(s) Phosphate [Mass/volume] in Serum or Plasma 2.6 mg/dL 2.5-4.5 [facility] ID Date Data Source [id number] 02/06/2021 04:49:10 AM [facility] Value Range Interpretation Code Description Data Lesley rce(s) Supporting Document(s) Leukocytes [#/volume] in Blood by Automated count 14.5 10*3/uL 4-10 [facility] Erythrocytes [#/volume] in Blood by Automated count 3.37 10*6/uL 4.6- 6.1 L [facility] Hemoglobin [Mass/volume] in Blood 9.4 g/dL 13.5-18 L [facility] Hematocrit [Volume Fraction] of Blood by Automated count 29.4 % 4 1-53 L [facility] Erythrocyte mean corpuscular volume [Entitic volume] by Auto mated count 87.0 fL 80-96 [facility] Erythrocyte mean corpuscular hemoglobin [Entitic mass] by Automated count 27.9 pg 27-33 [facility] Erythrocyte mean corpuscular hemoglobin concentration [Mass/volume] by Automated count 32.0 g/dL 32.0-36.0 [facility] width [Ratio] by Automated count 17.5 % 11.5-14.5 [facility] Platelets [#/volume] in Blood by Automated count 318 10*3/uL 150-400 [facility] ID Date Data Source [id number] 02/06/2021 05:24:15 AM [facility] Value Range Interpretation Code Description Data Lesley rce(s) Supporting Document(s) Bicarbonate [Moles/volume] in Serum 25 mmol/L 22-29 [facility] Chloride [Moles/volume] in Serum or Plasma 102 mmol/L 98-107 [facility] Creatinine [Mass/volume] in Serum or Plasma 0.96 mg/dL 0.70-1.20 [facility] Icteric Glucose [Mass/volume] in Serum or Plasma 74 mg/dL 70-140 [facility] Potassium [Moles/volume] in Serum or Plasma 3.6 mmol/L 3.4-5.1 [facility] Sodium [Moles/volume] in Serum or Plasma 136 mmol/L 136-145 [facility] Urea nitrogen [Mass/volume] in Serum or Plasma 23 mg/dL 8-23 [facility] Anion gap 3 in Serum or Plasma 8 mmol/L 8-15 [facility] Osmolality of Serum or Plasma by calculation 284 mosm/kg 275-300 [facility] Creatinine/Urea nitrogen [Mass Ratio] in Serum or Plasma 24 [facility] Calcium [Mass/volume] in Serum or Plasma 7.5 mg/dL 8.8-10.2 L [facility] Glomerular filtration rate/1.73 sq M pre dicted among non-blacks [Volume Rate/Area] in Serum or Plasma by Creatinine-based formula (MDRD) 84 mL/min/1.73m2 >60 [facility] Glomerular filtration rate/1.73 sq M pre dicted among blacks [Volume Rate/Area] in Serum or Plasma by Creatinine-based formula (MDRD) >60 [facility] ID Date Data Source [id number] 02/06/2021 05:24:15 AM [facility] Name Value Range Interpretation Code Description Data Lesley rce(s) Supporting Document(s) Magnesium [Mass/volume] in Serum or Plasma 2.0 mg/dL 1.6-2.4 [facility] ID Date Data Source [id number] 02/06/2021 05:24:15 AM [facility] Name Value Range Interpretation Code Description Data Lesley rce(s) Supporting Document(s) Phosphate [Mass/volume] in Serum or Plasma 2.7 mg/dL 2.5-4.5 [facility] ID Date Data Source [id number] 02/06/2021 05:49:05 AM [facility] Name Value Range Interpretation Code Description Data Lesley rce(s) Supporting Document(s) Albumin [Mass/volume] in Serum or Plasma by Bromocresol green (BCG) dye binding method 2.3 g/dL 3.5-5.2 [facility] Bil[facility].total [Mass/volume] in Serum or Plasma 6.5 mg/dL <1.2 [facility] Confirmed Bilirubin.direct [Mass/volume] in Serum or Plasma 4.5 mg/dL <0.3 [facility] Alkaline phosphatase [Enzymatic activity/volume] in Serum or Plasma 370 U/L 40-129 [facility] Aspartate aminotransferase [Enzymatic activity/volume] in Serum or Plasma 70 U/L <40 [facility] Alanine aminotransferase [Enzymatic activity/volume] in Seru m or Plasma 47 U/L <41 [facility] Protein [Mass/volume] in Serum or Plasma 5.0 g/dL 6.4-8.3 L [facility] ID Date Data Source [id number] 02/05/2021 09:58:02 AM EDT [facility] Name Value Range Interpretation Code Description Data Lesley rce(s) Supporting Document(s) [facility] [id number] jb2 [file] nDr/Y3yTzrM+mina/d51NlmwcQ5t6l5B7/wMJUfg1xdi35pg0twzzrTOdw+sJoXn5mv/6us3ahqPRNEb6 fqJ75BeU+ZG/13o/2dthQNmnsVhu4EcwCwo37fm42r fGOPO+3cgv1wQq/ZXD71NS8s06Q9+f8vij2LkglbZ+E2i53J8yKC8Un+F/frazier+E2d4vp51dqe1raJoZn+ SblE0hT/U1nr31ty7BeuC7tbzDzlJCopaccRsrp8QTBMCzoh3/rcstgKb6NRx1/0MS23A28oehr/Qy5/ HhG/6vHMXS+cm1tyFxC/Dzx/4fdQntgcMJ691I7/h9 u9qsD3Wrok197WXd2p6Kw2w0p89d6hKUgzh8215Ff5Pjnn9ybz9foszl75a+gpa6g4C6b110Hjp6286B P80oigi/77UM52d7/k5jrWc88Gl149wZW3Pp6rI960DM3hlY+N9GcAB050MmM+FViX7e7/57jkpQxV8D biV0/6vt/eCZoPtcF4G4/o0sH5Hww+s/G8pyqsV5yG x65boizAxwVGwS3a/D9WexWGS76w2/v0wTxWNeebCu2gXAk4Irrzu/+OMfE7/XoX4gY3Q6Tts+vBYXf9 Gixsda505xN2D1X/ozoZu075a3Lcy38vMC2atihSTM/Dn+3y53OA+G0P/NkwXgW/xtZ2JCruG3IDoY4o epzl9GkXIm94Fj82H/PrMLnXd7tZ7/jCKMB54Oasv+ Apt185G/GreKd+1/vD7/eU4Tc+OXyh/J7rVQ6Q/CraE/DrPNQlgupDI6Yf/htivQNezkGEmdqUi0y579 B3yeTj29PjTtPbClp9tfP7v6G/2trmvQd4tC8EX98u0Y8Z6/T651Um9E9YyydH07H61ytsAt5IqT+NiF 3IsaiTh9S/q85cSMhAxsFxAj29bo+FDy+Lp3OiTtp+ 14fSvodTA6L4Qv2EGk38e2IAB27rS3FxKIxpb/Cr0Gvf+OQIfvWkrz/g++DYGK/fxLEs0P5499Jk0/jk 2Jh/9B1V8xOam6p8how20cnif3nby484fs/v+9I70OX8BvS5G2Q7+aTh+6Dh+1D6B44Elz4vuW/ikF7E r7Le+/43cEi3E4Uqj4D3+oh125zyeQTMjhO6lC5Ewc +0MZQ21n/nRO+en6SJy4+zpoUCltkkCwm9NbT+Zfg+bBX6RsYo5wVFN05Po7xVE+Xv5/3mydavvhEXOk d4Pc+XKc7CvmJjgCuaeKrtErPtHxc7ZyMsMc4A+2C3DqD68ztnS8BpXZS77w7Ls26305424Ecq2eO8Uq Xz5K0uEC6k/K9urS9dghQ73/ndb/wtjuJ++kYm7u35 rwBCpx4GxOnMB7/xuhF5v/mn18VknL3mFQ3ulJiTEy4/f+B5ljx0t/jGIAUx3U9odyNfI3JiT28nVjfs yNF1zSjBb634g/gNIc8MxjkxBl0leVyK/b/8akocf+4w8W55vve+6ROPDX/uJt1uY0BqElkmmh+7OPwq 393hV/hxr15KuLU/XcsFd6qe2/co643FXj91nWDqUy m9NkxDu3R6FT9U3n7uZ8jL8ffPaG/Er0am3/LEjzk6y59R1PjtE2i4YgCFFo5nkmvd1zgr/5rd/YRmNz 8nrfa3GskeOvpa7qF9z2f5X5xq4qxbznQ6996nad/tclZn48YCc+IZv+g2h1Inlh9Ya5j8Yj66jLfw0n AR84Toy0K47wfgQGvth6HGB29v736+1RyZ68z/oc27 n9DmjW/YvPE6m/e7k381kpsmbca489hf4C9H/242SauYo6g1EdMXM5G64Mwe3I/ZOi0caiu/JZm+/hzx q+hfEb/IUn14FLvrQ88V3g87t7RaiyNkqd+xn/IhGhxoWlZpRG5Ti49i4dd4sSY9XAN5P0pwSokQ4Tr8 5eowdqldOKG1mk/NerxflMn2St5a1CaR56QH7Nlrud jgOTqbewXPydmbvr/vu5/fQTl133yfmcyf5+FXbxq/G34mLQs2P+E5L/clnqnJ4iW+F7yjrc0Qe1u0C1 39uZi3X2lctv3lphL+sO9+0QNM1xJnp56kal2DYqlqNUCVrgLb0s/anustzKA0jnilz7gyNu6YkgMHcm /4/fTfHm04/NzXqpy46rh1bQMZe1vx8UE8wq6edeV9 /K2ntftstQFc34+e+68y/fIWj/cRwr63Ecra820k/CrTA+MO5Oo8vFE/lYNfuTh+v/GccwD2/X3h+XXf k8l9cBN/4yhb21dPaf/Ksf/Ksf/K9a5/HfuvXDt+v+tB1zv/wu61rRv3/uux/2jqmwlmx6458XjkkR6h a9J5gcMpo16qj/76UW03u/tVvN/5hm2zuxtT9f0+Qu 40Y8M1ye/H++DB7c32a/tdL3i/+yk8N7av55621U2B9LZ+iF95v+tf73c/associate professor+5QP+PBp+R/9F/MrHXf [file] [id number]= ID Date Data Source [id number] 02/05/2021 05:05:04 AM EDT [facility] Name Value Range Interpretation Code Description Data Lesley rce(s) Supporting Document(s) Leukocytes [#/volume] in Blood by Automated count 14.3 10*3/uL 4-10 [facility] Erythrocytes [#/volume] in Blood by Automated count 3.44 10*6/uL 4.6- 6.1 L [facility] Hemoglobin [Mass/volume] in Blood 9.6 g/dL 13.5-18 L [facility] Hematocrit [Volume Fraction] of Blood by Automated count 29.5 % 4 1-53 L [facility] Erythrocyte mean corpuscular volume [Entitic volume] by Auto mated count 85.7 fL 80-96 [facility] Erythrocyte mean corpuscular hemoglobin [Entitic mass] by Automated count 27.9 pg 27-33 [facility] Erythrocyte mean corpuscular hemoglobin concentration [Mass/volume] by Automated count 32.5 g/dL 32.0-36.0 [facility] distribution width [Ratio] by Automated count 17.1 % 11.5-14.5 [facility] Platelets [#/volume] in Blood by Automated count 327 10*3/uL 150-400 [facility] ID Date Data Source [id number] 02/05/2021 05:25:06 AM EDT [facility] Name Value Range Interpretation Code Description Data Lesley rce(s) Supporting Document(s) Bicarbonate [Moles/volume] in Serum 30 mmol/L 22-29 [facility] Chloride [Moles/volume] in Serum or Plasma 100 mmol/L 98-107 [facility] Creatinine [Mass/volume] in Serum or Plasma 0.99 mg/dL 0.70-1.20 [facility] Icteric Glucose [Mass/volume] in Serum or Plasma 79 mg/dL 70-140 [facility] Potassium [Moles/volume] in Serum or Plasma 3.9 mmol/L 3.4-5.1 [facility] Sodium [Moles/volume] in Serum or Plasma 137 mmol/L 136-145 [facility] Urea nitrogen [Mass/volume] in Serum or Plasma 25 mg/dL 8-23 [facility] Anion gap 3 in Serum or Plasma 7 mmol/L 8-15 L [facility] Osmolality of Serum or Plasma by calculation 287 mosm/kg 275-300 [facility] Creatinine/Urea nitrogen [Mass Ratio] in Serum or Plasma 25 [facility] Calcium [Mass/volume] in Serum or Plasma 8.1 mg/dL 8.8-10.2 L [facility] Glomerular filtration rate/1.73 sq M pre dicted among non-blacks [Volume Rate/Area] in Serum or Plasma by Creatinine-based formula (MDRD) 83 mL/min/1.73m2 >60 [facility] Glomerular filtration rate/1.73 sq M pre dicted among blacks [Volume Rate/Area] in Serum or Plasma by Creatinine-based formula (MDRD) >60 [facility] ID Date Data Source [id number] 02/05/2021 05:25:06 AM [facility] Name Value Range Interpretation Code Description Data Lesley rce(s) Supporting Document(s) Magnesium [Mass/volume] in Serum or Plasma 1.9 mg/dL 1.6-2.4 [facility] ID Date Data Source [id number] 02/05/2021 05:25:06 AM [facility] Value Range Interpretation Code Description Data Lesley rce(s) Supporting Document(s) Phosphate [Mass/volume] in Serum or Plasma 3.1 mg/dL 2.5-4.5 [facility] ID Date Data Source [id number] 02/05/2021 05:54:25 AM [facility] Value Range Interpretation Code Description Data Lesley rce(s) Supporting Document(s) Albumin [Mass/volume] in Serum or Plasma by Bromocresol green (BCG) dye binding method 2.7 g/dL 3.5-5.2 [facility] Bilirubin.total [Mass/volume] in Serum or Plasma 7.7 mg/dL <1.2 [facility] Confirmed Bilirubin.direct [Mass/volume] in Serum or Plasma 5.3 mg/dL <0.3 [facility] Alkaline phosphatase [Enzymatic activity/volume] in Serum or Plasma 426 U/L 40-129 [facility] Aspartate aminotransferase [Enzymatic activity/volume] in Serum or Plasma 72 U/L <40 [facility] Alanine aminotransferase [Enzymatic activity/volume] in Seru m or Plasma 48 U/L <41 [facility] Protein [Mass/volume] in Serum or Plasma 5.5 g/dL 6.4-8.3 L [facility] ID Date Data Source [id number] 02/04/2021 04:31:06 AM [facility] Value Range Interpretation Code Description Data Lesley rce(s) Supporting Document(s) Leukocytes [#/volume] in Blood by Automated count 18.6 10*3/uL 4-10 [facility] Erythrocytes [#/volume] in Blood by Automated count 3.71 10*6/uL 4.6- 6.1 L [facility] Hemoglobin [Mass/volume] in Blood 10.3 g/dL 13.5-18 L [facility] Hematocrit [Volume Fraction] of Blood by Automated count 31.1 % 4 1-53 L [facility] Erythrocyte mean corpuscular volume [Entitic volume] by Auto mated count 83.9 fL 80-96 [facility] Erythrocyte mean corpuscular hemoglobin [Entitic mass] by Automated count 27.6 pg 27-33 [facility] Erythrocyte mean corpuscular hemoglobin concentration [Mass/volume] by Automated count 32.9 g/dL 32.0-36.0 [facility] Erythrocyte distribution width [Ratio] by Automated count 17.1 % 11.5-14.5 [facility] Platelets [#/volume] in Blood by Automated count 408 10*3/uL 150-400 [facility] ID Date Data Source [id number] 02/04/2021 05:10:36 AM T [facility] Name Value Range Interpretation Code Description Data Lesley rce(s) Supporting Document(s) Bicarbonate [Moles/volume] in Serum 29 mmol/L 22-29 [facility] Chloride [Moles/volume] in Serum or Plasma 101 mmol/L 98-107 [facility] Creatinine [Mass/volume] in Serum or Plasma 1.20 mg/dL 0.70-1.20 [facility] Icteric Glucose [Mass/volume] in Serum or Plasma 86 mg/dL 70-140 [facility] Potassium [Moles/volume] in Serum or Plasma 3.9 mmol/L 3.4-5.1 [facility] Sodium [Moles/volume] in Serum or Plasma 138 mmol/L 136-145 [facility] Urea nitrogen [Mass/volume] in Serum or Plasma 31 mg/dL 8-23 [facility] Anion gap 3 in Serum or Plasma 9 mmol/L 8-15 [facility] Osmolality of Serum or Plasma by calculation 292 mosm/kg 275-300 [facility] Creatinine/Urea nitrogen [Mass Ratio] in Serum or Plasma 26 [facility] Calcium [Mass/volume] in Serum or Plasma 8.2 mg/dL 8.8-10.2 [facility] Glomerular filtration rate/1.73 sq M pre dicted among non-blacks [Volume Rate/Area] in Serum or Plasma by Creatinine-based formula (MDRD) 61 mL/min/1.73m2 >60 [facility] Glomerular filtration rate/1.73 sq M pre dicted among blacks [Volume Rate/Area] in Serum or Plasma by Creatinine-based formula (MDRD) 71 mL/min/1.73m2 >60 [facility] ID Date Data Source [id number] 02/04/2021 05:10:36 AM [facility] Name Value Range Interpretation Code Description Data Lesley rce(s) Supporting Document(s) Magnesium [Mass/volume] in Serum or Plasma 2.0 mg/dL 1.6-2.4 [facility] ID Date Data Source [id number] 02/04/2021 05:10:36 AM [facility] Value Range Interpretation Code Description Data Lesley rce(s) Supporting Document(s) Phosphate [Mass/volume] in Serum or Plasma 3.7 mg/dL 2.5-4.5 [facility] ID Date Data Source [id number] 02/04/2021 05:31:26 AM [facility] Value Range Interpretation Code Description Data Lesley rce(s) Supporting Document(s) Albumin [Mass/volume] in Serum or Plasma by Bromocresol green (BCG) dye binding method 2.4 g/dL 3.5-5.2 [facility] Bilirubin.total [Mass/volume] in Serum or Plasma 9.4 mg/dL <1.2 [facility] Confirmed Bilirubin.direct [Mass/volume] in Serum or Plasma 6.6 mg/dL <0.3 [facility] Alkaline phosphatase [Enzymatic activity/volume] in Serum or Plasma 483 U/L 40-129 [facility] Aspartate aminotransferase [Enzymatic activity/volume] in Serum or Plasma 70 U/L <40 [facility] Alanine aminotransferase [Enzymatic activity/volume] in Seru m or Plasma 51 U/L <41 [facility] Protein [Mass/volume] in Serum or Plasma 5.6 g/dL 6.4-8.3 L [facility] ID Date Data Source [id number] 02/04/2021 04:24:16 AM [facility] Value Range Interpretation Code Description Data Lesley rce(s) Supporting Document(s) Calcium.ionized [Moles/volume] in Arterial blood 1.13 mmol/L 1.13-1.3 2 [facility] ID Date Data Source [id number] 02/03/2021 06:57:33 PM EDT [facility] Name Value Range Interpretation Code Description Data Lesley rce(s) Supporting Document(s) Bicarbonate [Moles/volume] in Serum 27 mmol/L 22-29 [facility] Chloride [Moles/volume] in Serum or Plasma 103 mmol/L 98-107 [facility] Creatinine [Mass/volume] in Serum or Plasma 1.30 mg/dL 0.70-1.20 [facility] Icteric Glucose [Mass/volume] in Serum or Plasma 104 mg/dL 70-140 [facility] Potassium [Moles/volume] in Serum or Plasma 4.3 mmol/L 3.4-5.1 [facility] Sodium [Moles/volume] in Serum or Plasma 140 mmol/L 136-145 [facility] Urea nitrogen [Mass/volume] in Serum or Plasma 34 mg/dL 8-23 [facility] Anion gap 3 in Serum or Plasma 10 mmol/L 8-15 [facility] Osmolality of Serum or Plasma by calculation 298 mosm/kg 275-300 [facility] Creatinine/Urea nitrogen [Mass Ratio] in Serum or Plasma 26 [facility] Calcium [Mass/volume] in Serum or Plasma 8.1 mg/dL 8.8-10.2 L [facility] Glomerular filtration rate/1.73 sq M pre dicted among non-blacks [Volume Rate/Area] in Serum or Plasma by Creatinine-based formula (MDRD) 55 mL/min/1.73m2 >60 L [facility] Glomerular filtration rate/1.73 sq M pre dicted among blacks [Volume Rate/Area] in Serum or Plasma by Creatinine-based formula (MDRD) 64 mL/min/1.73m2 >60 [facility] ID Date Data Source [id number] 02/03/2021 04:31:16 AM EDT [facility] Name Value Range Interpretation Code Description Data Lesley rce(s) Supporting Document(s) Leukocytes [#/volume] in Blood by Automated count 17.2 10*3/uL 4-10 [facility] Erythrocytes [#/volume] in Blood by Automated count 3.66 10*6/uL 4.6- 6.1 L [facility] Hemoglobin [Mass/volume] in Blood 10.1 g/dL 13.5-18 L [facility] Hematocrit [Volume Fraction] of Blood by Automated count 31.1 % 4 1-53 L [facility] Erythrocyte mean corpuscular volume [Entitic volume] by Auto mated count 85.1 fL 80-96 [facility] Erythrocyte mean corpuscular hemoglobin [Entitic mass] by Automated count 27.5 pg 27-33 [facility] Erythrocyte mean corpuscular hemoglobin concentration [Mass/volume] by Automated count 32.3 g/dL 32.0-36.0 [facility] Erythrocyte distribution width [Ratio] by Automated count 17.4 % 11.5-14.5 [facility] Platelets [#/volume] in Blood by Automated count 330 10*3/uL 150-400 [facility] ID Date Data Source [id number] 02/03/2021 04:59:16 AM EDT [facility] Name Value Range Interpretation Code Description Data Lesley rce(s) Supporting Document(s) Bicarbonate [Moles/volume] in Serum 32 mmol/L 22-29 [facility] Chloride [Moles/volume] in Serum or Plasma 100 mmol/L 98-107 [facility] Creatinine [Mass/volume] in Serum or Plasma 1.55 mg/dL 0.70-1.20 H [facility] Icteric Glucose [Mass/volume] in Serum or Plasma 76 mg/dL 70-140 [facility] Potassium [Moles/volume] in Serum or Plasma 4.1 mmol/L 3.4-5.1 [facility] Sodium [Moles/volume] in Serum or Plasma 140 mmol/L 136-145 [facility] Urea nitrogen [Mass/volume] in Serum or Plasma 37 mg/dL 8-23 [facility] Anion gap 3 in Serum or Plasma 8 mmol/L 8-15 [facility] Osmolality of Serum or Plasma by calculation 297 mosm/kg 275-300 [facility] Creatinine/Urea nitrogen [Mass Ratio] in Serum or Plasma 24 [facility] Calcium [Mass/volume] in Serum or Plasma 8.1 mg/dL 8.8-10.2 L [facility] Glomerular filtration rate/1.73 sq M pre dicted among non-blacks [Volume Rate/Area] in Serum or Plasma by Creatinine-based formula (MDRD) 45 mL/min/1.73m2 >60 L [facility] Glomerular filtration rate/1.73 sq M pre dicted among blacks [Volume Rate/Area] in Serum or Plasma by Creatinine-based formula (MDRD) 52 mL/min/1.73m2 >60 L [facility] ID Date Data Source [id number] 02/03/2021 04:59:16 AM [facility] Name Value Range Interpretation Code Description Data Lesley rce(s) Supporting Document(s) Magnesium [Mass/volume] in Serum or Plasma 2.3 mg/dL 1.6-2.4 [facility] ID Date Data Source [id number] 02/03/2021 04:59:16 AM [facility] Value Range Interpretation Code Description Data Lesley rce(s) Supporting Document(s) Phosphate [Mass/volume] in Serum or Plasma 4.2 mg/dL 2.5-4.5 [facility] ID Date Data Source [id number] 02/03/2021 05:14:46 AM [facility] Value Range Interpretation Code Description Data Lesley rce(s) Supporting Document(s) Albumin [Mass/volume] in Serum or Plasma by Bromocresol green (BCG) dye binding method 2.7 g/dL 3.5-5.2 [facility] Bil[facility].total [Mass/volume] in Serum or Plasma 10.9 mg/dL <1.2 H [facility] Confirmed Bilirubin.direct [Mass/volume] in Serum or Plasma 7.9 mg/dL <0.3 [facility] Alkaline phosphatase [Enzymatic activity/volume] in Serum or Plasma 534 U/L 40-129 [facility] Aspartate aminotransferase [Enzymatic activity/volume] in Serum or Plasma 62 U/L <40 [facility] Alanine aminotransferase [Enzymatic activity/volume] in Seru m or Plasma 53 U/L <41 [facility] Protein [Mass/volume] in Serum or Plasma 5.6 g/dL 6.4-8.3 L [facility] ID Date Data Source [id number] 02/02/2021 06:12:53 PM [facility] Value Range Interpretation Code Description Data Lesley rce(s) Supporting Document(s) Bicarbonate [Moles/volume] in Serum 28 mmol/L 22-29 [facility] Chloride [Moles/volume] in Serum or Plasma 104 mmol/L 98-107 [facility] Creatinine [Mass/volume] in Serum or Plasma 1.74 mg/dL 0.70-1.20 H [facility] Icteric Glucose [Mass/volume] in Serum or Plasma 99 mg/dL 70-140 [facility] Potassium [Moles/volume] in Serum or Plasma 4.1 mmol/L 3.4-5.1 [facility] Sodium [Moles/volume] in Serum or Plasma 141 mmol/L 136-145 [facility] Urea nitrogen [Mass/volume] in Serum or Plasma 39 mg/dL 8-23 [facility] Anion gap 3 in Serum or Plasma 9 mmol/L 8-15 [facility] Osmolality of Serum or Plasma by calculation 301 mosm/kg 275-300 [facility] Creatinine/Urea nitrogen [Mass Ratio] in Serum or Plasma 22 [facility] Calcium [Mass/volume] in Serum or Plasma 8.1 mg/dL 8.8-10.2 L [facility] Glomerular filtration rate/1.73 sq M pre dicted among non-blacks [Volume Rate/Area] in Serum or Plasma by Creatinine-based formula (MDRD) 39 mL/min/1.73m2 >60 L [facility] Glomerular filtration rate/1.73 sq M pre dicted among blacks [Volume Rate/Area] in Serum or Plasma by Creatinine-based formula (MDRD) 45 mL/min/1.73m2 >60 L [facility] ID Date Data Source [id number] 02/02/2021 08:58:27 AM [facility] Name Value Range Interpretation Code Description Data Lesley rce(s) Supporting Document(s) Leukocytes [#/volume] in Blood by Automated count 19.0 10*3/uL 4-10 H [facility] Erythrocytes [#/volume] in Blood by Automated count 3.59 10*6/uL 4.6- 6.1 [facility] Hemoglobin [Mass/volume] in Blood 9.9 g/dL 13.5-18 L [facility] Hematocrit [Volume Fraction] of Blood by Automated count 30.1 % 4 1-53 L [facility] Erythrocyte mean corpuscular volume [Entitic volume] by Auto mated count 84.0 fL 80-96 [facility] Erythrocyte mean corpuscular hemoglobin [Entitic mass] by Automated count 27.6 pg 27-33 [facility] Erythrocyte mean corpuscular hemoglobin concentration [Mass/volume] by Automated count 32.9 g/dL 32.0-36.0 [facility] width [Ratio] by Automated count 16.8 % 11.5-14.5 [facility] Platelets [#/volume] in Blood by Automated count 315 10*3/uL 150-400 [facility] ID Date Data Source [id number] 02/02/2021 09:11:41 AM EDT [facility] Name Value Range Interpretation Code Description Data Lesley rce(s) Supporting Document(s) Bicarbonate [Moles/volume] in Serum 29 mmol/L 22-29 [facility] Chloride [Moles/volume] in Serum or Plasma 104 mmol/L 98-107 [facility] Creatinine [Mass/volume] in Serum or Plasma 2.03 mg/dL 0.70-1.20 H [facility] Icteric Glucose [Mass/volume] in Serum or Plasma 82 mg/dL 70-140 [facility] Potassium [Moles/volume] in Serum or Plasma 4.1 mmol/L 3.4-5.1 [facility] Sodium [Moles/volume] in Serum or Plasma 140 mmol/L 136-145 [facility] Urea nitrogen [Mass/volume] in Serum or Plasma 42 mg/dL 8-23 H [facility] Anion gap 3 in Serum or Plasma 7 mmol/L 8-15 L [facility] Osmolality of Serum or Plasma by calculation 300 mosm/kg 275-300 [facility] Creatinine/Urea nitrogen [Mass Ratio] in Serum or Plasma 21 [facility] Calcium [Mass/volume] in Serum or Plasma 8.3 mg/dL 8.8-10.2 L [facility] Glomerular filtration rate/1.73 sq M pre dicted among non-blacks [Volume Rate/Area] in Serum or Plasma by Creatinine-based formula (MDRD) 32 mL/min/1.73m2 >60 L [facility] Glomerular filtration rate/1.73 sq M pre dicted among blacks [Volume Rate/Area] in Serum or Plasma by Creatinine-based formula (MDRD) 37 mL/min/1.73m2 >60 L [facility] ID Date Data Source [id number] 02/02/2021 07:59:13 AM [facility] Name Value Range Interpretation Code Description Data Lesley rce(s) Supporting Document(s) Magnesium [Mass/volume] in Serum or Plasma 2.5 mg/dL 1.6-2.4 H [facility] ID Date Data Source [id number] 02/02/2021 07:59:13 AM [facility] Name Value Range Interpretation Code Description Data Lesley rce(s) Supporting Document(s) Phosphate [Mass/volume] in Serum or Plasma 4.5 mg/dL 2.5-4.5 [facility] ID Date Data Source [id number] 02/02/2021 09:00:24 AM [facility] Value Range Interpretation Code Description Data Lesley rce(s) Supporting Document(s) Albumin [Mass/volume] in Serum or Plasma by Bromocresol green (BCG) dye binding method 2.5 g/dL 3.5-5.2 [facility] Bil[facility].total [Mass/volume] in Serum or Plasma 15.4 mg/dL <1.2 H [facility] Confirmed Bilirubin.direct [Mass/volume] in Serum or Plasma 12.0 mg/dL <0.3 H [facility] Confirmed Alkaline phosphatase [Enzymatic activity/volume] in Serum or Plasma 606 U/L 40-129 H [facility] Aspartate aminotransferase [Enzymatic activity/volume] in Serum or Plasma 64 U/L <40 H [facility] Alanine aminotransferase [Enzymatic activity/volume] in Seru m or Plasma 61 U/L <41 H [facility] Protein [Mass/volume] in Serum or Plasma 5.4 g/dL 6.4-8.3 L [facility] ID Date Data Source [id number] 02/02/2021 12:49:31 AM [facility] Value Range Interpretation Code Description Data Lesley rce(s) Supporting Document(s) Leukocytes [#/volume] in Blood by Automated count 19.5 10*3/uL 4-10 H [facility] Erythrocytes [#/volume] in Blood by Automated count 3.64 10*6/uL 4.6- 6.1 L [facility] Hemoglobin [Mass/volume] in Blood 10.1 g/dL 13.5-18 L [facility] Hematocrit [Volume Fraction] of Blood by Automated count 30.7 % 4 1-53 L [facility] Erythrocyte mean corpuscular volume [Entitic volume] by Auto mated count 84.4 fL 80-96 [facility] Erythrocyte mean corpuscular hemoglobin [Entitic mass] by Automated count 27.7 pg 27-33 [facility] Erythrocyte mean corpuscular hemoglobin concentration [Mass/volume] by Automated count 32.8 g/dL 32.0-36.0 [facility] E[facility]th[facility] distribution width [Ratio] by Automated count 17.1 % 11.5-14.5 H [facility] Platelets [#/volume] in Blood by Automated count 298 10*3/uL 150-400 [facility] ID Date Data Source [id number] 02/02/2021 01:20:20 AM EDT [facility] Name Value Range Interpretation Code Description Data Lesley rce(s) Supporting Document(s) Bicarbonate [Moles/volume] in Serum 30 mmol/L 22-29 H [facility] Chloride [Moles/volume] in Serum or Plasma 102 mmol/L 98-107 [facility] Creatinine [Mass/volume] in Serum or Plasma 2.23 mg/dL 0.70-1.20 H [facility] Icteric Glucose [Mass/volume] in Serum or Plasma 84 mg/dL 70-140 [facility] Potassium [Moles/volume] in Serum or Plasma 4.2 mmol/L 3.4-5.1 [facility] Sodium [Moles/volume] in Serum or Plasma 141 mmol/L 136-145 [facility] Urea nitrogen [Mass/volume] in Serum or Plasma 41 mg/dL 8-23 H [facility] Anion gap 3 in Serum or Plasma 9 mmol/L 8-15 [facility] Osmolality of Serum or Plasma by calculation 301 mosm/kg 275-300 H [facility] Creatinine/Urea nitrogen [Mass Ratio] in Serum or Plasma 18 [facility] Calcium [Mass/volume] in Serum or Plasma 8.2 mg/dL 8.8-10.2 L [facility] Glomerular filtration rate/1.73 sq M pre dicted among non-blacks [Volume Rate/Area] in Serum or Plasma by Creatinine-based formula (MDRD) 29 mL/min/1.73m2 >60 L [facility] Glomerular filtration rate/1.73 sq M pre dicted among blacks [Volume Rate/Area] in Serum or Plasma by Creatinine-based formula (MDRD) 33 mL/min/1.73m2 >60 L [facility] ID Date Data Source [id number] 02/01/2021 05:18:50 PM [facility] Name Value Range Interpretation Code Description Data Lesley rce(s) Supporting Document(s) Leukocytes [#/volume] in Blood by Automated count 19.4 10*3/uL 4-10 H [facility] Erythrocytes [#/volume] in Blood by Automated count 3.57 10*6/uL 4.6- 6.1 L [facility] Hemoglobin [Mass/volume] in Blood 9.8 g/dL 13.5-18 L [facility] Hematocrit [Volume Fraction] of Blood by Automated count 30.2 % 4 1-53 L [facility] Erythrocyte mean corpuscular volume [Entitic volume] by Auto mated count 84.5 fL 80-96 [facility] Erythrocyte mean corpuscular hemoglobin [Entitic mass] by Automated count 27.5 pg 27-33 [facility] Erythrocyte mean corpuscular hemoglobin concentration [Mass/volume] by Automated count 32.5 g/dL 32.0-36.0 [facility] E[facility]th[facility] distribution width [Ratio] by Automated count 16.7 % 11.5-14.5 H [facility] Platelets [#/volume] in Blood by Automated count 279 10*3/uL 150-400 [facility] ID Date Data Source [id number] 02/01/2021 05:47:08 PM [facility] Name Value Range Interpretation Code Description Data Lesley rce(s) Supporting Document(s) Bicarbonate [Moles/volume] in Serum 26 mmol/L 22-29 [facility] Chloride [Moles/volume] in Serum or Plasma 103 mmol/L 98-107 [facility] Creatinine [Mass/volume] in Serum or Plasma 2.50 mg/dL 0.70-1.20 H [facility] Glucose [Mass/volume] in Serum or Plasma 97 mg/dL 70-140 [facility] Potassium [Moles/volume] in Serum or Plasma 4.1 mmol/L 3.4-5.1 [facility] Sodium [Moles/volume] in Serum or Plasma 138 mmol/L 136-145 [facility] Urea nitrogen [Mass/volume] in Serum or Plasma 44 mg/dL 8-23 H [facility] Anion gap 3 in Serum or Plasma 9 mmol/L 8-15 [facility] Osmolality of Serum or Plasma by calculation 296 mosm/kg 275-300 [facility] Creatinine/Urea nitrogen [Mass Ratio] in Serum or Plasma 17 [facility] Calcium [Mass/volume] in Serum or Plasma 8.1 mg/dL 8.8-10.2 L [facility] Glomerular filtration rate/1.73 sq M pre dicted among non-blacks [Volume Rate/Area] in Serum or Plasma by Creatinine-based formula (MDRD) 25 mL/min/1.73m2 >60 L [facility] Glomerular filtration rate/1.73 sq M pre dicted among blacks [Volume Rate/Area] in Serum or Plasma by Creatinine-based formula (MDRD) 29 mL/min/1.73m2 >60 L [facility] ID Date Data Source [id number] 02/01/2021 06:44:28 PM [facility] Name Value Range Interpretation Code Description Data Lesley rce(s) Supporting Document(s) Albumin [Mass/volume] in Serum or Plasma by Bromocresol green (BCG) dye binding method 2.6 g/dL 3.5-5.2 L [facility] Bilirubin.total [Mass/volume] in Serum or Plasma 21.7 mg/dL <1.2 H [facility] Bilirubin.direct [Mass/volume] in Serum or Plasma 19.6 mg/dL <0.3 H [facility] Confirmed Alkaline phosphatase [Enzymatic activity/volume] in Serum or Plasma 694 U/L 40-129 H [facility] Aspartate aminotransferase [Enzymatic activity/volume] in Serum or Plasma 80 U/L <40 H [facility] Alanine aminotransferase [Enzymatic activity/volume] in Seru m or Plasma 72 U/L <41 H [facility] Protein [Mass/volume] in Serum or Plasma 5.6 g/dL 6.4-8.3 L [facility] ID Date Data Source [id number] 02/01/2021 02:43:54 PM [facility] Name Value Range Interpretation Code Description Data Lesley rce(s) Supporting Document(s) [facility] GBCKMf4eZzBERwMf80/DQIrxCAYqq8AtQMzbDZm5KYysLKEeX4BsALL7gZ7qYON8FUeSHpBaOtVoTDO9 lbm [file] +3c1Dyi1KO9pN6V4B291g+0xYVDtvkfRmSO+TYPE COPY EXAMINER/R2o [file] suspension cord tier+cpk3Zrovkurt4oI5hzjdQ3QyjFpOxFiwzrmVxvdi8tJS4VO8D6EEwi+arY4Ggy5kg52TgEz+w98d7 [file] ICAgICAgICAgICAgICAgICAgICAgICAgICAgICAgICAgICAgICAgICAgICAgICAgICAgICAgICAgICAg ICAgICAgICAgICAgICAgICAgICAgICAgICANCiAgIC AgICAgICAgICAgICAgICAgICAgICAgICAgICAgICAgICAgICAgICAgICAgICAgICAgICAgICAgICAgIC AgICAgICAgICAgICAgICAgICAgICAgICAgICAgICAgICAgICANCiAgICAgICAgICAgICAgICAgICAgIC AgICAgICAgICAgICAgICAgICAgICAgICAgICAgICAg ICAgICAgICAgICAgICAgICAgICAgICAgICAgICAgICAgICAgICAgICAgICAgICANCiAgICAgICAgICAg ICAgICAgICAgICAgICAgICAgICAgICAgICAgICAgICAgICAgICAgICAgICAgICAgICAgICAgICAgICAg ICAgICAgICAgICAgICAgICAgICAgICAgICAgICANCi AgICAgICAgICAgICAgICAgICAgICAgICAgICAgICAgICAgICAgICAgICAgICAgICAgICAgICAgICAgIC AgICAgICAgICAgICAgICAgICAgICAgICAgICAgICAgICAgICAgICANCiAgICAgICAgICAgICAgICAgIC AgICAgICAgICAgICAgICAgICAgICAgICAgICAgICAg ICAgICAgICAgICAgICAgICAgICAgICAgICAgICAgICAgICAgICAgICAgICAgICAgICANCiAgICAgICAg ICAgICAgICAgICAgICAgICAgICAgICAgICAgICAgICAgICAgICAgICAgICAgICAgICAgICAgICAgICAg ICAgICAgICAgICAgICAgICAgICAgICAgICAgICAgIC ANCiAgICAgICAgICAgICAgICAgICAgICAgICAgICAgICAgICAgICAgICAgICAgICAgICAgICAgICAgIC AgICAgICAgICAgICAgICAgICAgICAgICAgICAgICAgICAgICAgICAgICANCiAgICAgICAgICAgICAgIC AgICAgICAgICAgICAgICAgICAgICAgICAgICAgICAg ICAgICAgICAgICAgICAgICAgICAgICAgICAgICAgICAgICAgICAgICAgICAgICAgICAgICANCiAgICAg ICAgICAgICAgICAgICAgICAgICAgICAgICAgICAgICAgICAgICAgICAgICAgICAgICAgICAgICAgICAg ICAgICAgICAgICAgICAgICAgICAgICAgICAgICAgIC AgICANCjw/qPCgZ1svwVRxujP7O0wzVy2YUp4KYG4fm6KnQJLzKQcmapTzTdhKKhLjHLYmRqfLMrw6KY nhFL6WgPStI5JoA2GrNKoaEV1WWIYkOCDbqZOkPSNiMZXiDkM9UBSuKSkxPE0TcCUhPBwwVTCbIGZvIa AwIFIgOSAwIFIgMTEgMCBSIDEzIDAgUiAxNSAwIFIg MC4GGEYqE360xfGkIu4XPw5IMyFsTA5ybl9GAxOzKYPaCkkQMfv5TWnuBJ3SeZRxyEAkMcUnJTVIMgPz Q0oue7MtTnBqQFLFDLwdCR7Ui7BugTXnCMt+Cq2MUK7zf2MuRChaKjTwTI1rpv9SZZwXOzTzJ2SknYie VFUqiiW6jKIcBLE1PGvvaZMtKVVyM4EmdwPqCHeqYG GdDHDjMV96UhYaCkBkEMJ8KOFkWE0iPMgtAP9JXXR1TUyyNRMdVTQkC7rRXiVrVFRaPpSusJssNV4LUw DeM8EsphZwyCEzLUXsSTAKLq7+ZKvfxeOsWziNFsP6QTIcw9ToBXi7YU8IVHKaNHstSR5HULNtoR4kKJ xgYH9ZRhLsOoZsFQMDYhLfO28wkLMdLEz3K5AlJkHs ZGVkRmlsZXMgPDwvTmFtZXMgWyBdDQogID4+ID4+VYzrNU9OMZdubhVkIRLrWy3JOWVfAXRmFH6iSYKg OMRzT3D2vGxeZESESsIbN4xarzrePT6gXTOiY933iDtczkElSSS5KRPtHl1UTMJmPJQ8DJAiyJRhOaLw KXXVCGzuAZ0RhXOuSEN3wT9oQPlkJCDcVEThW6jRPb EytHktFX59wTnjeqMyxCFiZWy+Fn5PMG1mh5XzUXl6wxRzAGahIGJ1UXflYYJnTCPaCJKaFSI4NMB3TG YOCjPjGLHkSEVlYQhgRQCgFWCabw0KZIMdQLLjPHP2KDXkLPMuFIRzBYoiVHNgRLA1THgiCCAqZIKfWQ 5JUtYoUYTkWLUaMNknLFDsRERlil8PFNQzFMSqTji6 PFHhNGElZAFqDAvwZQPoTCP5TLj0JWMgGOEqRJ2OKyRjQSXqQOxkLBfjXHIeCXZzyo9VRYWfGIWmVhL7 ArXuXYMzHECsOJwyKHGvPDXbMzY1LXRbUTPxEN4HDuKhQMImZWI4TNKlTCYuOZUwam8BBKLbAZNaYkOe UOWqPZYtKNUiVLcfIWGxSMVpPaE9YMVeGRKrDP0RGn QuIGNiBOw0APqmXWRhTEEjun4EYCVgTBQrEBE2HzPbRCUlCEYwNLhjTBXsZKRsTll1YRRvPNIrZA5CAm EmSFWdVxA2IJPdIANjHXXydn1KUQWgJDUsJAF3SmDfLXErWDXyGCmzCUPvHDMlDiBbHMTmFIIcEF0XNy LgSQAlJpR1StPlZJVsMIFjsq4HTRTyJPAqWdg2LmOx DJTwENGgJPtdIUXlESUfJYr2UUKpIUOqUT4MPmLgGJMmFsTuBfCqUNAyKNBawp3XOXIqUCByRNQbJqVu ANJmQTQaZKzeIMFsXGU8RjJ6HLTjUFKmRZ1IBdAmVEQpPbI3LNMzVWCaHRBsgf2IOMMcFHErKKc1IaVk AVZiGQBtASykGCOeXMU3TdD2BQKmTLGiZX2PPlLkDJ BjTcY2CzJeTHKwHRThex1GDNJuGUXlLxB5QeIsODWnBXLsVSukJLRwWZN6VMW3TTVcMOCwOL6SOyQhDN YsCyp9QYMvTXQmAAJanb9DBJIkHXEgWqi3MMCrGQPiJGMqJCitOGOgVSV0AYR1LMIjFLQwAP9OTrFtKA TfCqv0OGHdBKAmKEJrce2AVVBbYWC2PSZkBuSrGLMr NSBqFVqpQVSiKZGlECl4STFwUAHpSC2HDtUyMMPtTFPwPxhhDRZiYPDexj7PhPArwGhjeb5UFIdVUm1E gWgrYAU2SKrqBd9myUZlRwZaZSVRFt7IvsKdSPMqMFVGOOtuPYMuJFMjMbinQwObYkUpANLvCWS1FgO4 U4SzGJowGsBjDbIgSiW6PKUtXEGfDuAiLrPwKWPsGr OrTEP3SGMcLTUeAwIzXfO+KD9jLFu+Md5Js8LagnL6ieGxYOf1SJO6YJ7DEYPMB7MXKq== ID Date Data Source [id number] 02/01/2021 01:05:44 PM EDT [facility] IR PERCUTANEOUS CHOLANGIOGRAPHY AND BILI CHAPIN DRAINAGEFINAL RESULTInterpreted by:Roc Sal MDEXAM: PERCUTANEOUS CHOLANGIOGRAPHY AND BILIARY DRAINAGE PLACEMENT, 01/30/2021LINICAL INDICATIONS: 65-year-old male with hyperbilirubinemia and intrahepatic bilomas/abscesses, here for PTBD placementContrast Type and Dose: Omnipaque 240, 50 mLFluoroscopy time 5.9 minutes, Fluoroscopy Dose 226 mGy. Consent: Following discussion of the risks, benefits and alternatives of the procedure, written informed consent was obtained. Moderate Sedation: Provided by general anesthesia.COMPARISON: CT abdomen pelvis dated 01/29/2021, ultrasound dated 01/29/2021, IR image guided procedure dated 01/25/2021.TIME OUT: Prior to the procedure a time out was performed in the presence of the patient and all personnel involved in this case. The patient identity, procedure type, procedure side/site, and allergies were verified.The patient is on inpatient orders of an [facility].................................................................TECHNI QUE: Position: The patient was transferred to the IR laboratory and was positioned supine on the procedural table. The upper abdomen was prepped and draped utilizing maximum sterile barrier technique. Procedure: Prior to initiating the procedure utilizing maximum sterile barrier technique, under direct ultrasound guidance, 20-gauge catheter was introduced into the right radial artery to assist anesthesia for placement of a arterial line for hemodynamic status monitoring.After infiltration with lidocaine, a 21-gauge Chib a needle was used via a right intercostal approach to access the biliary tree utilizing fluoroscopic guidance. Transhepatic cholangiography was performed. After identification of the biliary tree, an appropriate peripheral branch of the right biliary tree was selected. A microwire and introducer were advanced centrally. A diagnostic catheter and guidewire were used to cross the level of obstruction in the distal CBD. After serial dilations, a 8.5 Nepalese Cook drainage catheter was inserted over the wire. The tip of the catheter was looped within the duodenum. The sideholes were placed above and below the level of obstruction. The catheter was attached to a gravity drainage bag and a sterile, occlusive dressing was placed on the skin surrounding the catheter. FINDINGS: Mildly dilated CBD and intrahepatic bile ducts. A filling defect is seen in the distal CBD. There is suggestion for small bilomas likely at the segment 4 level.IMPRESSION:1. Technically successful right 8.5 Nepalese internal/external right PTBD placement. A filling defect is seen in the common bile duct which may be due to a blood clot and/or a stone. Consider an MRCP or ERCP in the future when the patient condition improves.2. Technically successful right radial arterial line placement. PLAN: Follow-up study in approximately 4 weeks.This document has been electronically signed by Maksim Tan DO on 02/01/2021 1:03 PM Name Value Range Interpretation Code Description Data Lesley rce(s) Supporting Document(s) ID Date Data Source [id number] 02/01/2021 12:55:52 PM [facility] IR IMAGE GUIDED NEEDLE DRAIN PROCEDUREFI NAL RESULTInterpreted by:Roc Sal MDEXAM: Ultrasound guided aspiration versus drain placement, 01/30/2021LINICAL INDICATIONS: 65-year-old male with hyperbilirubinemia and intrahepatic abscesses, here for aspiration and possible drain placement.COMPARISON: CT abdomen pelvis dated 01/29/2021, ultrasound abdomen pelvis dated 01/29/2021, and IR image guided procedure dated 01/25/2021.PROCEDURE/TECHNIQUE:Consent:Written, informed consent was obtained after explaining the procedure to the patient, including benefits and risks, and answering the questions. Sedation: Provided by general anesthesiaTIME OUT: Prior to the procedure a time out was performed in the presence of the patient and all personnel involved in this case. The patient identity, procedure type, procedure side/site, and allergies were verified.Position:The patient was placed in the supine position.Preparation:Time out was performed. The patient was then prepped and draped in sterile fashion. Local anesthesia was provided using buffered lidocaineProcedure:A 5 Nepalese Yueh needle were advanced using US guidance into the left hepatic lobe fluid collections x2. Approximately 15 mL of dark purulent bile was aspirated from the collections and a sample was sent to the laboratory for culture. The needle was removed. Then, a sterile occlusive dressing was placed.Post-procedure:There were no immediate complications. The patient tolerated the procedure well.IMPRESSION:Successful aspiration of left hepatic lobe fluid collections x2. Follow-up of cultures.This document has been electronically signed by Maksim Tan DO on 02/01/2021 12:53 PM Name Value Range Interpretation Code Description Data Lesley rce(s) Supporting Document(s) ID Date Data Source [id number] 02/01/2021 09:38:16 AM [facility] Name Value Range Interpretation Code Description Data Lesley rce(s) Supporting Document(s) Bicarbonate [Moles/volume] in Serum 30 mmol/L 22-29 H [facility] Chloride [Moles/volume] in Serum or Plasma 104 mmol/L 98-107 [facility] Creatinine [Mass/volume] in Serum or Plasma 2.76 mg/dL 0.70-1.20 H [facility] Glucose [Mass/volume] in Serum or Plasma 83 mg/dL 70-140 [facility] Potassium [Moles/volume] in Serum or Plasma 4.5 mmol/L 3.4-5.1 [facility] Sodium [Moles/volume] in Serum or Plasma 142 mmol/L 136-145 [facility] Urea nitrogen [Mass/volume] in Serum or Plasma 44 mg/dL 8-23 H [facility] Anion gap 3 in Serum or Plasma 8 mmol/L 8-15 [facility] Osmolality of Serum or Plasma by calculation 304 mosm/kg 275-300 H [facility] Creatinine/Urea nitrogen [Mass Ratio] in Serum or Plasma 16 [facility] Calcium [Mass/volume] in Serum or Plasma 8.1 mg/dL 8.8-10.2 L [facility] Glomerular filtration rate/1.73 sq M pre dicted among non-blacks [Volume Rate/Area] in Serum or Plasma by Creatinine-based formula (MDRD) 22 mL/min/1.73m2 >60 L [facility] Glomerular filtration rate/1.73 sq M pre dicted among blacks [Volume Rate/Area] in Serum or Plasma by Creatinine-based formula (MDRD) 26 mL/min/1.73m2 >60 L [facility] ID Date Data Source [id number] 02/01/2021 11:21:06 AM EDT [facility] Name Value Range Interpretation Code Description Data Lesley rce(s) Supporting Document(s) Albumin [Mass/volume] in Serum or Plasma by Bromocresol green (BCG) dye binding method 2.8 g/dL 3.5-5.2 [facility] Bil[facility].total [Mass/volume] in Serum or Plasma 25.4 mg/dL <1.2 H [facility] Bilirubin.direct [Mass/volume] in Serum or Plasma <0.3 H [facility] Confirmed Alkaline phosphatase [Enzymatic activity/volume] in Serum or Plasma 715 U/L 40-129 H [facility] Aspartate aminotransferase [Enzymatic activity/volume] in Serum or Plasma 97 U/L <40 H [facility] Alanine aminotransferase [Enzymatic activity/volume] in Seru m or Plasma 78 U/L <41 H [facility] Protein [Mass/volume] in Serum or Plasma 5.6 g/dL 6.4-8.3 L [facility] ID Date Data Source [id number] 02/01/2021 09:10:12 AM [facility] Name Value Range Interpretation Code Description Data Lesley rce(s) Supporting Document(s) Leukocytes [#/volume] in Blood by Automated count 16.5 10*3/uL 4-10 H [facility] Erythrocytes [#/volume] in Blood by Automated count 3.45 10*6/uL 4.6- 6.1 L [facility] Hemoglobin [Mass/volume] in Blood 9.4 g/dL 13.5-18 L [facility] Hematocrit [Volume Fraction] of Blood by Automated count 29.2 % 4 1-53 L [facility] Erythrocyte mean corpuscular volume [Entitic volume] by Auto mated count 84.6 fL 80-96 [facility] Erythrocyte mean corpuscular hemoglobin [Entitic mass] by Automated count 27.3 pg 27-33 [facility] Erythrocyte mean corpuscular hemoglobin concentration [Mass/volume] by Automated count 32.3 g/dL 32.0-36.0 [facility] E[facility]th[facility] distribution width [Ratio] by Automated count 16.5 % 11.5-14.5 H [facility] Platelets [#/volume] in Blood by Automated count 254 10*3/uL 150-400 [facility] ID Date Data Source [id number] 02/01/2021 06:49:54 AM [facility] Value Range Interpretation Code Description Data Lesley rce(s) Supporting Document(s) Bilirubin.total [Mass/volume] in Serum or Plasma 26.1 mg/dL <1.2 H [facility] Confirmed ID Date Data Source [id number] 02/01/2021 09:27:45 AM [facility] Value Range Interpretation Code Description Data Lesley rce(s) Supporting Document(s) Magnesium [Mass/volume] in Serum or Plasma 2.5 mg/dL 1.6-2.4 H [facility] ID Date Data Source [id number] 02/01/2021 09:27:45 AM [facility] Name Value Range Interpretation Code Description Data Lesley rce(s) Supporting Document(s) Phosphate [Mass/volume] in Serum or Plasma 4.9 mg/dL 2.5-4.5 H [facility] ID Date Data Source [id number] 02/01/2021 11:04:56 AM [facility] Value Range Interpretation Code Description Data Lesley rce(s) Supporting Document(s) Bilirubin.direct [Mass/volume] in Serum or Plasma 19.2 mg/dL <0.3 H [facility] Confirmed ID Date Data Source [id number] 02/01/2021 12:25:55 AM [facility] Value Range Interpretation Code Description Data Lesley rce(s) Supporting Document(s) Leukocytes [#/volume] in Blood by Automated count 17.2 10*3/uL 4-10 H [facility] Erythrocytes [#/volume] in Blood by Automated count 3.40 10*6/uL 4.6- 6.1 L [facility] Hemoglobin [Mass/volume] in Blood 9.5 g/dL 13.5-18 L [facility] Hematocrit [Volume Fraction] of Blood by Automated count 28.7 % 4 1-53 L [facility] Erythrocyte mean corpuscular volume [Entitic volume] by Auto mated count 84.3 fL 80-96 [facility] Erythrocyte mean corpuscular hemoglobin [Entitic mass] by Automated count 27.9 pg 27-33 [facility] [facility] Erythrocyte mean corpuscular hemoglobin concentration [Mass/volume] by Automated count 33.1 g/dL 32.0-36.0 [facility] distribution width [Ratio] by Automated count 16.7 % 11.5-14.5 [facility] Platelets [#/volume] in Blood by Automated count 248 10*3/uL 150-400 [facility] ID Date Data Source [id number] 02/01/2021 12:49:23 AM [facility] Value Range Interpretation Code Description Data Lesley rce(s) Supporting Document(s) Bicarbonate [Moles/volume] in Serum 26 mmol/L 22-29 [facility] Chloride [Moles/volume] in Serum or Plasma 104 mmol/L 98-107 [facility] Creatinine [Mass/volume] in Serum or Plasma 2.63 mg/dL 0.70-1.20 [facility] Icteric Glucose [Mass/volume] in Serum or Plasma 91 mg/dL 70-140 [facility] Potassium [Moles/volume] in Serum or Plasma 4.5 mmol/L 3.4-5.1 [facility] Sodium [Moles/volume] in Serum or Plasma 139 mmol/L 136-145 [facility] Urea nitrogen [Mass/volume] in Serum or Plasma 39 mg/dL 8-23 [facility] Anion gap 3 in Serum or Plasma 9 mmol/L 8-15 [facility] Osmolality of Serum or Plasma by calculation 297 mosm/kg 275-300 [facility] Creatinine/Urea nitrogen [Mass Ratio] in Serum or Plasma 15 [facility] Calcium [Mass/volume] in Serum or Plasma 7.3 mg/dL 8.8-10.2 L [facility] Glomerular filtration rate/1.73 sq M pre dicted among non-blacks [Volume Rate/Area] in Serum or Plasma by Creatinine-based formula (MDRD) 24 mL/min/1.73m2 >60 L [facility] Glomerular filtration rate/1.73 sq M pre dicted among blacks [Volume Rate/Area] in Serum or Plasma by Creatinine-based formula (MDRD) 27 mL/min/1.73m2 >60 L [facility] ID Date Data Source [id number] 01/31/2021 07:33:45 PM EDT [facility] XR ABDOMEN AP ABD SUPINE ONLY [id number] RESULTInterpreted by:Verónica Kim MDPROCEDURE INFORMATION: Exam: XR Abdomen Exam date and time: 01/31/2021 11:38 AM Age: 65 years old Clinical indication: Sepsis due to pseudomonas; Sepsis, unspecified organism; Sepsis, unspecified organism; Sepsis, unspecified organism; Metabolic encephalopathy; Shortness of breath; Right upper quadrant pain; Epigastric pain; Nausea; Fever, unspecified; Severe sepsis without septic shock; Severe sepsis with septic shock; Presence of automatic (implantable) cardiac defibrillator; Other: Possible internal drainage from biliary drain TECHNIQUE: Imaging protocol: XR of the abdomen. Views: Frontal supine view of the abdomen. 1 View. COMPARISON: CT ABDOMEN WITH CONTRAST [id number] 01/29/2021 4:42 PM FINDINGS: Gastrointestinal tract: Residual contrast present in the right bowel. Intraperitoneal space: Pigtail catheter in the right upper abdomen. Surgical clips in the left upper quadrant. Bones/joints: Degenerative changes of the vi sualized portions of the lumbar spine. Sternotomy wires. Other findings: Limited examination due to respiratory motion and patient's girth. IMPRESSION: 1. Limited suboptimal degraded image. 2. Drainage catheter appreciated on the right. 3. No definite distended bowel loops appreciated. 4. Possibility of internal drainage from biliary drain cannot be determined on plain film. THIS DOCUMENT HAS BEEN ELECTRONICALLY SIGNED BY VERÓNICA KIM MDThis document has been electronically signed by Verónica Kim MD on 01/31/2021 7:33 PM Name Value Range Interpretation Code Description Data Lesley rce(s) Supporting Document(s) ID Date Data Source [id number] 01/31/2021 07:13:19 PM [facility] Name Value Range Interpretation Code Description Data Lesley rce(s) Supporting Document(s) Albumin [Mass/volume] in Serum or Plasma by Bromocresol green (BCG) dye binding method 2.4 g/dL 3.5-5.2 [facility] Bilirubin.total [Mass/volume] in Serum or Plasma 31.1 mg/dL <1.2 [facility] Bilirubin.direct [Mass/volume] in Serum or Plasma <0.3 [facility] Confirmed Alkaline phosphatase [Enzymatic activity/volume] in Serum or Plasma 788 U/L 40-129 [facility] Aspartate aminotransferase [Enzymatic activity/volume] in Serum or Plasma 142 U/L <40 [facility] Alanine aminotransferase [Enzymatic activity/volume] in Seru m or Plasma 88 U/L <41 [facility] Protein [Mass/volume] in Serum or Plasma 5.3 g/dL 6.4-8.3 [facility] I[facility] ID Date Data Source [id number] 01/31/2021 04:49:54 PM [facility] Name Value Range Interpretation Code Description Data Lseley rce(s) Supporting Document(s) Leukocytes [#/volume] in Blood by Automated count 17.1 10*3/uL 4-10 [facility] Erythrocytes [#/volume] in Blood by Automated count 3.36 10*6/uL 4.6- 6.1 [facility] Hemoglobin [Mass/volume] in Blood 9.5 g/dL 13.5-18 L [facility] Hematocrit [Volume Fraction] of Blood by Automated count 28.3 % 4 1-53 [facility] Erythrocyte mean corpuscular volume [Entitic volume] by Auto mated count 84.2 fL 80-96 [facility] Erythrocyte mean corpuscular hemoglobin [Entitic mass] by Automated count 28.2 pg 27-33 [facility] Erythrocyte mean corpuscular hemoglobin concentration [Mass/volume] by Automated count 33.5 g/dL 32.0-36.0 [facility] E[facility]th[facility] distribution width [Ratio] by Automated count 16.6 % 11.5-14.5 [facility] Platelets [#/volume] in Blood by Automated count 233 10*3/uL 150-400 [facility] ID Date Data Source [id number] 01/31/2021 05:25:21 PM EDT [facility] Name Value Range Interpretation Code Description Data Lesley rce(s) Supporting Document(s) Bicarbonate [Moles/volume] in Serum 28 mmol/L 22-29 [facility] Chloride [Moles/volume] in Serum or Plasma 104 mmol/L 98-107 [facility] Creatinine [Mass/volume] in Serum or Plasma 3.00 mg/dL 0.70-1.20 [facility] Glucose [Mass/volume] in Serum or Plasma 98 mg/dL 70-140 [facility] Potassium [Moles/volume] in Serum or Plasma 4.4 mmol/L 3.4-5.1 [facility] Sodium [Moles/volume] in Serum or Plasma 140 mmol/L 136-145 [facility] Urea nitrogen [Mass/volume] in Serum or Plasma 40 mg/dL 8-23 [facility] Anion gap 3 in Serum or Plasma 8 mmol/L 8-15 [facility] Osmolality of Serum or Plasma by calculation 300 mosm/kg 275-300 [facility] Creatinine/Urea nitrogen [Mass Ratio] in Serum or Plasma 13 [facility] Calcium [Mass/volume] in Serum or Plasma 8.0 mg/dL 8.8-10.2 L [facility] Glomerular filtration rate/1.73 sq M pre dicted among non-blacks [Volume Rate/Area] in Serum or Plasma by Creatinine-based formula (MDRD) 20 mL/min/1.73m2 >60 L [facility] Glomerular filtration rate/1.73 sq M pre dicted among blacks [Volume Rate/Area] in Serum or Plasma by Creatinine-based formula (MDRD) 23 mL/min/1.73m2 >60 [facility] ID Date Data Source [id number] 01/31/2021 08:51:30 AM [facility] Name Value Range Interpretation Code Description Data Lesley rce(s) Supporting Document(s) Leukocytes [#/volume] in Blood by Automated count 21.7 10*3/uL 4-10 [facility] Erythrocytes [#/volume] in Blood by Automated count 3.39 10*6/uL 4.6- 6.1 [facility] Hemoglobin [Mass/volume] in Blood 9.6 g/dL 13.5-18 [facility] Hematocrit [Volume Fraction] of Blood by Automated count 28.4 % 4 1-53 [facility] Erythrocyte mean corpuscular volume [Entitic volume] by Auto mated count 83.9 fL 80-96 [facility] Erythrocyte mean corpuscular hemoglobin [Entitic mass] by Automated count 28.4 pg 27-33 [facility] Erythrocyte mean corpuscular hemoglobin concentration [Mass/volume] by Automated count 33.9 g/dL 32.0-36.0 [facility] E[facility]th[facility] distribution width [Ratio] by Automated count 16.5 % 11.5-14.5 [facility] Platelets [#/volume] in Blood by Automated count 272 10*3/uL 150-400 [facility] ID Date Data Source [id number] 01/31/2021 09:10:46 AM [facility] Name Value Range Interpretation Code Description Data Lesley rce(s) Supporting Document(s) Bicarbonate [Moles/volume] in Serum 25 mmol/L 22-29 [facility] Chloride [Moles/volume] in Serum or Plasma 101 mmol/L 98-107 [facility] Creatinine [Mass/volume] in Serum or Plasma 2.97 mg/dL 0.70-1.20 [facility] Glucose [Mass/volume] in Serum or Plasma 87 mg/dL 70-140 [facility] Potassium [Moles/volume] in Serum or Plasma 4.0 mmol/L 3.4-5.1 [facility] Sodium [Moles/volume] in Serum or Plasma 135 mmol/L 136-145 [facility] Urea nitrogen [Mass/volume] in Serum or Plasma 38 mg/dL 8-23 [facility] Anion gap 3 in Serum or Plasma 8 mmol/L 8-15 [facility] Osmolality of Serum or Plasma by calculation 288 mosm/kg 275-300 [facility] Creatinine/Urea nitrogen [Mass Ratio] in Serum or Plasma 13 [facility] Calcium [Mass/volume] in Serum or Plasma 7.8 mg/dL 8.8-10.2 L [facility] Glomerular filtration rate/1.73 sq M pre dicted among non-blacks [Volume Rate/Area] in Serum or Plasma by Creatinine-based formula (MDRD) 20 mL/min/1.73m2 >60 L [facility] Glomerular filtration rate/1.73 sq M pre dicted among blacks [Volume Rate/Area] in Serum or Plasma by Creatinine-based formula (MDRD) 24 mL/min/1.73m2 >60 [facility] ID Date Data Source [id number] 01/31/2021 09:10:46 AM [facility] Name Value Range Interpretation Code Description Data Lesley rce(s) Supporting Document(s) Magnesium [Mass/volume] in Serum or Plasma 2.3 mg/dL 1.6-2.4 [facility] ID Date Data Source [id number] 01/31/2021 09:10:46 AM [facility] Value Range Interpretation Code Description Data Lesley rce(s) Supporting Document(s) Phosphate [Mass/volume] in Serum or Plasma 3.5 mg/dL 2.5-4.5 [facility] ID Date Data Source [id number] 01/31/2021 09:43:36 AM [facility] Name Value Range Interpretation Code Description Data Lesley rce(s) Supporting Document(s) Albumin [Mass/volume] in Serum or Plasma by Bromocresol green (BCG) dye binding method 2.5 g/dL 3.5-5.2 [facility] Bilirubin.total [Mass/volume] in Serum or Plasma 33.3 mg/dL <1.2 [facility] Bilirubin.direct [Mass/volume] in Serum or Plasma <0.3 [facility] Confirmed Alkaline phosphatase [Enzymatic activity/volume] in Serum or Plasma 772 U/L 40-129 [facility] Aspartate aminotransferase [Enzymatic activity/volume] in Serum or Plasma 165 U/L <40 [facility] Alanine aminotransferase [Enzymatic activity/volume] in Seru m or Plasma 90 U/L <41 [facility] Protein [Mass/volume] in Serum or Plasma 5.3 g/dL 6.4-8.3 L [facility] ID Date Data Source [id number] 01/31/2021 05:11:26 AM EDT [facility] XR CHEST FRONTAL ONLY [id number] RESULTI nterpreted by:Linda Zhang MDPROCEDURE INFORMATION: Exam: XR Chest Exam date and time: 01/31/2021 4:06 AM Age: 65 years old Clinical indication: Sepsis due to pseudomonas; Sepsis, unspecified organism; Sepsis, unspecified organism; Sepsis, unspecified organism; Metabolic encephalopathy; Shortness of breath; Right upper quadrant pain; Epigastric pain; Nausea; Fever, unspecified; Severe sepsis without septic shock; Severe sepsis with septic shock; Presence of automatic (implantable) cardiac defibrillator; Other: Post procedure, septic patient, interval mo nitoring TECHNIQUE: Imaging protocol: XR of the chest. Views: 1 view. COMPARISON: DX XR CHEST FRONTAL ONLY [id number] PORTABLE 01/30/2021 6:17 PM FINDINGS: Tubes, catheters and devices: Endotracheal tube is seen in place with the tip approximately 4.7 cm above the chantal. Lungs: Alveolar opacities are seen throughout the right lung, with increasing alveolar consolidation, when compared to the previous study. The left hemidiaphragm is obscured, which could be secondary to pneumonia, atelectasis, and/or pleural effusion. Pleural spaces: No pneumothorax. Heart/Mediastinum: Left cardiac pacemaker is identified with the lead tip in the right ventricle. The heart is magnified and the size cannot be accurately evaluated. The mediastinum is unremarkable. Bones/joints: The patient is status post sternotomy and apparent CABG procedure. Intraperitoneal space: Surgical clips are noted over the left upper quadrant of the abdomen. IMPRESSION: 1. Status post CABG procedure. 2. Right alveolar opacities with increasing consolidation when compared to the previous study. 3. The left hemidiaphragm is obscured, which could be secondary to pneumonia, atelectasis, and/or pleural effusion. THIS DOCUMENT HAS BEEN ELECTRONICALLY SIGNED BY LINDA ZHANG MDThis document has been electronically signed by Linda Zhang MD on 01/31/2021 5:11 AM Name Value Range Interpretation Code Description Data Lesley rce(s) Supporting Document(s) ID Date Data Source [id number] 01/31/2021 05:38:34 AM [facility] Value Range Interpretation Code Description Data Lesley rce(s) Supporting Document(s) Bilirubin.total [Mass/volume] in Serum or Plasma 31.6 mg/dL <1.2 [facility] ID Date Data Source [id number] 01/31/2021 06:19:34 AM [facility] Value Range Interpretation Code Description Data Lesley rce(s) Supporting Document(s) Bilirubin.direct [Mass/volume] in Serum or Plasma <0.3 [facility] Confirmed ID Date Data Source [id number] 01/31/2021 05:06:56 AM [facility] Value Range Interpretation Code Description Data Lesley rce(s) Supporting Document(s) pH of Arterial blood 7.39 7.38-7.44 [facility] Carbon dioxide [Partial pressure] in Arterial blood 44 mm[Hg] 35-40 [facility] Oxygen [Partial pressure] in Arterial blood 152 mmHg 95-100 [facility] Oxygen saturation in Arterial blood 98 % 94-100 [facility] Base excess in Arterial blood by calculation 2 [facility] Carbon dioxide, total [Moles/volume] in Arterial blood 28 mmol/L [facility] Oxygen/Inspired gas setting [Volume Fraction] Ventilator 0.70 [facility] ID Date Data Source [id number] 01/31/2021 01:01:17 AM [facility] Value Range Interpretation Code Description Data Lesley rce(s) Supporting Document(s) Leukocytes [#/volume] in Blood by Automated count 21.1 10*3/uL 4-10 [facility] Erythrocytes [#/volume] in Blood by Automated count 3.34 10*6/uL 4.6- 6.1 L [facility] Hemoglobin [Mass/volume] in Blood 9.6 g/dL 13.5-18 L [facility] Hematocrit [Volume Fraction] of Blood by Automated count 27.8 % 4 1-53 L [facility] Erythrocyte mean corpuscular volume [Entitic volume] by Auto mated count 83.2 fL 80-96 [facility] Erythrocyte mean corpuscular hemoglobin [Entitic mass] by Automated count 28.7 pg 27-33 [facility] Erythrocyte mean corpuscular hemoglobin concentration [Mass/volume] by Automated count 34.5 g/dL 32.0-36.0 [facility] E[facility]th[facility] distribution width [Ratio] by Automated count 16.6 % 11.5-14.5 [facility] Platelets [#/volume] in Blood by Automated count 248 10*3/uL 150-400 [facility] ID Date Data Source [id number] 01/31/2021 01:11:29 AM EDT [facility] Name Value Range Interpretation Code Description Data Lesley rce(s) Supporting Document(s) Bicarbonate [Moles/volume] in Serum 27 mmol/L 22-29 [facility] Chloride [Moles/volume] in Serum or Plasma 103 mmol/L 98-107 [facility] Creatinine [Mass/volume] in Serum or Plasma 2.27 mg/dL 0.70-1.20 [facility] Glucose [Mass/volume] in Serum or Plasma 93 mg/dL 70-140 [facility] Potassium [Moles/volume] in Serum or Plasma 4.4 mmol/L 3.4-5.1 [facility] Hemolyzed Sodium [Moles/volume] in Serum or Plasma 140 mmol/L 136-145 [facility] Urea nitrogen [Mass/volume] in Serum or Plasma 37 mg/dL 8-23 [facility] Anion gap 3 in Serum or Plasma 10 mmol/L 8-15 [facility] Osmolality of Serum or Plasma by calculation 298 mosm/kg 275-300 [facility] Creatinine/Urea nitrogen [Mass Ratio] in Serum or Plasma 16 [facility] Calcium [Mass/volume] in Serum or Plasma 7.6 mg/dL 8.8-10.2 L [facility] Glomerular filtration rate/1.73 sq M pre dicted among non-blacks [Volume Rate/Area] in Serum or Plasma by Creatinine-based formula (MDRD) 28 mL/min/1.73m2 >60 L [facility] Glomerular filtration rate/1.73 sq M pre dicted among blacks [Volume Rate/Area] in Serum or Plasma by Creatinine-based formula (MDRD) 33 mL/min/1.73m2 >60 L [facility] ID Date Data Source [id number] 01/31/2021 01:11:29 AM EDT [facility] Name Value Range Interpretation Code Description Data Lesley rce(s) Supporting Document(s) Magnesium [Mass/volume] in Serum or Plasma 2.4 mg/dL 1.6-2.4 [facility] ID Date Data Source [id number] 01/31/2021 01:11:29 AM EDT [facility] Name Value Range Interpretation Code Description Data Lesley rce(s) Supporting Document(s) Phosphate [Mass/volume] in Serum or Plasma 3.6 mg/dL 2.5-4.5 [facility] ID Date Data Source [id number] 02/01/2021 11:58:28 AM EDT [facility] Service Cmnt XXX-Imp : NoneMicroorganism XXX Cult : 2+Parul albicans Name Value Range Interpretation Code Description Data Lesley rce(s) Supporting Document(s) ID Date Data Source [id number] 02/01/2021 11:53:05 AM EDT [facility] Service Cmnt XXX-Imp : LIVER ABSCESSGram Stn XXX : 1+WBC'S Seen.No organisms seenMicroorganism XXX Cult : 2+Pseudomonas aeruginosaATTENTION This species is always resistant to aminopenicillins, ampicillin-sulbactam, amoxicillin- clavulanic acid, first-generation cephalosporins, cefuroxime, cephamycins, cefotaxime, ceftriaxone, ertapenem, tetracyclines, trimethoprim, trimethoprim-sulfamethoxazole, and chloramphenicol. Name Value Range Interpretation Code Description Data Lesley rce(s) Supporting Document(s) ID Date Data Source [id number] 01/30/2021 06:55:47 PM EDT [facility] XR CHEST FRONTAL ONLY [id number] RESULTI nterpreted by:Edmond Yuan, MDPROCEDURE INFORMATION: Exam: XR Chest Exam date and time: 01/30/2021 6:17 PM Age: 65 years old Clinical indication: Sepsis due to pseudomonas; Sepsis, unspecified organism; Sepsis, unspecified organism; Sepsis, unspecified organism; Metabolic encephalopathy; Shortness of breath; Right upper quadrant pain; Epigastric pain; Nausea; Fever, unspecified; Severe sepsis without septic shock; Severe sepsis with septic shock; Presence of automatic (implantable) cardiac defibrillator; Device placement; Ett placement (vent status); Additional info: Confirm ett placement TECHNIQUE: Imaging protocol: XR of the chest. Views: 1 view. Total images: 3 COMPARISON: CR XR CHEST FRONTAL ONLY [id number] PORTABLE 01/30/2021 3:57 AM FINDINGS: Tubes, catheters and devices: Dual lead atrioventricular permanent transvenous cardiac pacemaker entering from left subclavian approach, with lead wires appearing satisfactory. Attached generator within anterolateral left chest wall subcutaneous soft tissue. Monitoring electrodes with attached wires. Satisfactory endotracheal tube, with end 4 cm superior to chantal. Lungs: Poor lung expansion bilaterally. Bilateral ill- defined and patchy pulmonary opacity appearing mild on right and minimal on left, predominantly involving mid and lower lung zones, as well as right upper lung zone. Pleural spaces: No definite pleural effusion. Heart/Mediastinum: Heart margins obscured, with heart mildly enlarged. Bones/joints: Previous sternotomy, with no acute bony finding. Other findings: Addition of the endotracheal tube and little other difference compared to earlier chest x-ray of today. IMPRESSION: 1. Addition of satisfactory endotracheal tube. 2. Cardiomegaly, with similar persisting active disease. THIS DOCUMENT HAS BEEN ELECTRONICALLY SIGNED BY EDMOND YUAN MDThis document has been electronically signed by Edmond Yuan MD on 01/30/2021 6:55 PM Name Value Range Interpretation Code Description Data Lesley e(s) Supporting Document(s) ID Date Data Source [id number] 01/30/2021 06:22:41 PM T [facility] Name Value Range Interpretation Code Description Data Lesley rce(s) Supporting Document(s) pH of Arterial blood 7.32 7.38-7.44 L [facility] Carbon dioxide [Partial pressure] in Arterial blood 57 mm[Hg] 35-40 H [facility] Oxygen [Partial pressure] in Arterial blood 97 mmHg 95-100 [facility] Oxygen saturation in Arterial blood 97 % 94-100 [facility] Base excess in Arterial blood by calculation 2 [facility] Carbon dioxide, total [Moles/volume] in Arterial blood 30 mmol/L [facility] Oxygen/Inspired gas setting [Volume Fraction] Ventilator 0.75 [facility] ID Date Data Source [id number] 01/30/2021 06:26:27 PM [facility] Name Value Range Interpretation Code Description Data Lesley rce(s) Supporting Document(s) Leukocytes [#/volume] in Blood by Automated count 25.7 10*3/uL 4-10 [facility] Erythrocytes [#/volume] in Blood by Automated count 3.79 10*6/uL 4.6- 6.1 L [facility] Hemoglobin [Mass/volume] in Blood 10.6 g/dL 13.5-18 L [facility] Hematocrit [Volume Fraction] of Blood by Automated count 31.5 % 4 1-53 L [facility] Erythrocyte mean corpuscular volume [Entitic volume] by Auto mated count 83.2 fL 80-96 [facility] Erythrocyte mean corpuscular hemoglobin [Entitic mass] by Automated count 28.0 pg 27-33 [facility] Erythrocyte mean corpuscular hemoglobin concentration [Mass/volume] by Automated count 33.6 g/dL 32.0-36.0 [facility] distribution width [Ratio] by Automated count 16.8 % 11.5-14.5 H [facility] Platelets [#/volume] in Blood by Automated count 266 10*3/uL 150-400 [facility] ID Date Data Source [id number] 01/30/2021 07:10:21 PM [facility] Name Value Range Interpretation Code Description Data Lesley rce(s) Supporting Document(s) Bicarbonate [Moles/volume] in Serum 26 mmol/L 22-29 [facility] Chloride [Moles/volume] in Serum or Plasma 102 mmol/L 98-107 [facility] Creatinine [Mass/volume] in Serum or Plasma 1.22 mg/dL 0.70-1.20 H [facility] Glucose [Mass/volume] in Serum or Plasma 153 mg/dL 70-140 [facility] Potassium [Moles/volume] in Serum or Plasma 4.5 mmol/L 3.4-5.1 [facility] Sodium [Moles/volume] in Serum or Plasma 137 mmol/L 136-145 [facility] Urea nitrogen [Mass/volume] in Serum or Plasma 33 mg/dL 8-23 H [facility] Anion gap 3 in Serum or Plasma 9 mmol/L 8-15 [facility] Osmolality of Serum or Plasma by calculation 295 mosm/kg 275-300 [facility] Creatinine/Urea nitrogen [Mass Ratio] in Serum or Plasma 27 [facility] Calcium [Mass/volume] in Serum or Plasma 8.2 mg/dL 8.8-10.2 L [facility] Glomerular filtration rate/1.73 sq M pre dicted among non-blacks [Volume Rate/Area] in Serum or Plasma by Creatinine-based formula (MDRD) 60 mL/min/1.73m2 >60 L [facility] Glomerular filtration rate/1.73 sq M pre dicted among blacks [Volume Rate/Area] in Serum or Plasma by Creatinine-based formula (MDRD) 69 mL/min/1.73m2 >60 [facility] ID Date Data Source [id number] 01/30/2021 07:10:21 PM [facility] Name Value Range Interpretation Code Description Data Lesley rce(s) Supporting Document(s) Magnesium [Mass/volume] in Serum or Plasma 2.4 mg/dL 1.6-2.4 [facility] ID Date Data Source [id number] 01/30/2021 07:10:21 PM [facility] Name Value Range Interpretation Code Description Data Lesley rce(s) Supporting Document(s) Phosphate [Mass/volume] in Serum or Plasma 4.0 mg/dL 2.5-4.5 [facility] Icteric ID Date Data Source [id number] 01/30/2021 07:56:30 PM [facility] Name Value Range Interpretation Code Description Data Lesley rce(s) Supporting Document(s) Albumin [Mass/volume] in Serum or Plasma by Bromocresol green (BCG) dye binding method 2.5 g/dL 3.5-5.2 [facility] Bil[facility].total [Mass/volume] in Serum or Plasma 35.6 mg/dL <1.2 H [facility] Confirmed Bilirubin.direct [Mass/volume] in Serum or Plasma <0.3 H [facility] Confirmed Alkaline phosphatase [Enzymatic activity/volume] in Serum or Plasma 804 U/L 40-129 [facility] Aspartate aminotransferase [Enzymatic activity/volume] in Serum or Plasma 117 U/L <40 [facility] Alanine aminotransferase [Enzymatic activity/volume] in Seru m or Plasma 81 U/L <41 [facility] Protein [Mass/volume] in Serum or Plasma 5.5 g/dL 6.4-8.3 L [facility] Icteric ID Date Data Source [id number] 02/04/2021 12:08:33 PM [facility] Cmnt XXX-Imp : R HANDMicroorgani sm XXX Cult : No growth 5 days Name Value Range Interpretation Code Description Data Lesley rce(s) Supporting Document(s) ID Date Data Source [id number] 01/30/2021 12:12:24 PM [facility] Name Value Range Interpretation Code Description Data Lesley rce(s) Supporting Document(s) Prothrombin time (PT) 15.6 s 12.5-14.9 H [facility] INR in Platelet poor plasma by Coagulation assay 1. [facility] Routine intensity oral anticoagulation I NR is typically 2.0-3.0. Target INR must be clinically individualized. ID Date Data Source [id number] 02/04/2021 12:08:33 PM [facility] Service Cmnt XXX-Imp : L ARMMicroorganis m XXX Cult : No growth 5 days Name Value Range Interpretation Code Description Data Lesley rce(s) Supporting Document(s) ID Date Data Source [id number] 01/30/2021 06:02:11 AM [facility] Name Value Range Interpretation Code Description Data Lesley rce(s) Supporting Document(s) Leukocytes [#/volume] in Blood by Automated count 29.3 10*3/uL 4-10 H [facility] Erythrocytes [#/volume] in Blood by Automated count 3.88 10*6/uL 4.6- 6.1 L [facility] Hemoglobin [Mass/volume] in Blood 10.7 g/dL 13.5-18 L [facility] Hematocrit [Volume Fraction] of Blood by Automated count 32.6 % 4 1-53 L [facility] Erythrocyte mean corpuscular volume [Entitic volume] by Auto mated count 83.9 fL 80-96 [facility] Erythrocyte mean corpuscular hemoglobin [Entitic mass] by Automated count 27.7 pg 27-33 [facility] Erythrocyte mean corpuscular hemoglobin concentration [Mass/volume] by Automated count 33.0 g/dL 32.0-36.0 [facility] E[facility] distribution width [Ratio] by Automated count 16.2 % 11.5-14.5 H [facility] Platelets [#/volume] in Blood by Automated count 242 10*3/uL 150-400 [facility] ID Date Data Source [id number] 01/30/2021 06:31:16 AM EDT [facility] Name Value Range Interpretation Code Description Data Lesley rce(s) Supporting Document(s) Bicarbonate [Moles/volume] in Serum 26 mmol/L 22-29 [facility] Chloride [Moles/volume] in Serum or Plasma 104 mmol/L 98-107 [facility] Creatinine [Mass/volume] in Serum or Plasma 1.00 mg/dL 0.70-1.20 [facility] Glucose [Mass/volume] in Serum or Plasma 93 mg/dL 70-140 [facility] Potassium [Moles/volume] in Serum or Plasma 4.2 mmol/L 3.4-5.1 [facility] Sodium [Moles/volume] in Serum or Plasma 138 mmol/L 136-145 [facility] Urea nitrogen [Mass/volume] in Serum or Plasma 31 mg/dL 8-23 H [facility] Anion gap 3 in Serum or Plasma 8 mmol/L 8-15 [facility] Osmolality of Serum or Plasma by calculation 292 mosm/kg 275-300 [facility] Creatinine/Urea nitrogen [Mass Ratio] in Serum or Plasma 31 [facility] Calcium [Mass/volume] in Serum or Plasma 8.1 mg/dL 8.8-10.2 L [facility] Glomerular filtration rate/1.73 sq M pre dicted among non-blacks [Volume Rate/Area] in Serum or Plasma by Creatinine-based formula (MDRD) 76 mL/min/1.73m2 >60 [facility] Glomerular filtration rate/1.73 sq M pre dicted among blacks [Volume Rate/Area] in Serum or Plasma by Creatinine-based formula (MDRD) 88 mL/min/1.73m2 >60 [facility] ID Date Data Source [id number] 01/30/2021 06:31:16 AM EDT [facility] Name Value Range Interpretation Code Description Data Lesley rce(s) Supporting Document(s) Magnesium [Mass/volume] in Serum or Plasma 2.6 mg/dL 1.6-2.4 H [facility] ID Date Data Source [id number] 01/30/2021 06:31:16 AM [facility] Name Value Range Interpretation Code Description Data Lesley rce(s) Supporting Document(s) Phosphate [Mass/volume] in Serum or Plasma 3.3 mg/dL 2.5-4.5 [facility] ID Date Data Source [id number] 01/30/2021 06:50:36 AM [facility] Name Value Range Interpretation Code Description Data Lesley rce(s) Supporting Document(s) Albumin [Mass/volume] in Serum or Plasma by Bromocresol green (BCG) dye binding method 2.0 g/dL 3.5-5.2 [facility] Bilirubin.total [Mass/volume] in Serum or Plasma 31.5 mg/dL <1.2 H [facility] Bilirubin.direct [Mass/volume] in Serum or Plasma <0.3 H [facility] Confirmed Alkaline phosphatase [Enzymatic activity/volume] in Serum or Plasma 682 U/L 40-129 [facility] Aspartate aminotransferase [Enzymatic activity/volume] in Serum or Plasma 87 U/L <40 [facility] Alanine aminotransferase [Enzymatic activity/volume] in Seru m or Plasma 74 U/L <41 [facility] Protein [Mass/volume] in Serum or Plasma 5.4 g/dL 6.4-8.3 L [facility] ID Date Data Source [id number] 01/30/2021 05:03:37 AM [facility] XR CHEST FRONTAL ONLY [id number] RESULTI nterpreted by:David Zhang, MDPROCEDURE INFORMATION: Exam: XR Chest Exam date and time: 01/30/2021 3:57 AM Age: 65 years old Clinical indication: Sepsis due to pseudomonas; Sepsis, unspecified organism; Sepsis, unspecified organism; Sepsis, unspecified organism; Metabolic encephalopathy; Shortness of breath; Right upper quadrant pain; Epigastric pain; Nausea; Fever, unspecified; Severe sepsis without septic shock; Severe sepsis with septic shock; Presence of automatic (implantable) cardiac defibrillator; Chest pain; Additional info: Interval monitoring for hypoxia, possible loculated effusion TECHNIQUE: Imaging protocol: XR of the chest. Views: 1 view. COMPARISON: CR XR CHEST FRONTAL ONLY [id number] PORTABLE 01/28/2021 10:57 AM FINDINGS: Tubes, catheters and devices: Left-sided pacing device is present. Lungs: Diffuse right lung and left basilar pulmonary opacities appear unchanged allowing for positioning and technique. Pleural spaces: Unremarkable. No pleural effusion. No pneumothorax. Heart/Mediastinum: Unremarkable. No cardiomegaly. Bones/joints: Sternotomy wires and mediastinal surgical clips are present, consistent with previous coronary arterial bypass grafting. IMPRESSION: Diffuse right lung and left basilar pulmonary opacities appear unchanged allowing for positioning and technique. THIS DOCUMENT HAS BEEN ELECTRONICALLY SIGNED BY DAVID ZHANG MDThis document has been electronically signed by David Zhang MD on 01/30/2021 5:03 AM Name Value Range Interpretation Code Description Data Lesley rce(s) Supporting Document(s) ID Date Data Source [id number] 01/29/2021 07:11:02 PM [facility] Name Value Range Interpretation Code Description Data Lesley rce(s) Supporting Document(s) Leukocytes [#/volume] in Blood by Automated count 29.7 10*3/uL 4-10 H [facility] Erythrocytes [#/volume] in Blood by Automated count 3.85 10*6/uL 4.6- 6.1 L [facility] Hemoglobin [Mass/volume] in Blood 10.7 g/dL 13.5-18 L [facility] Hematocrit [Volume Fraction] of Blood by Automated count 32.6 % 4 1-53 L [facility] Erythrocyte mean corpuscular volume [Entitic volume] by Auto mated count 84.7 fL 80-96 [facility] Erythrocyte mean corpuscular hemoglobin [Entitic mass] by Automated count 27.9 pg 27-33 [facility] Erythrocyte mean corpuscular hemoglobin concentration [Mass/volume] by Automated count 32.9 g/dL 32.0-36.0 [facility] E[facility]th[facility] distribution width [Ratio] by Automated count 16.8 % 11.5-14.5 H [facility] Platelets [#/volume] in Blood by Automated count 220 10*3/uL 150-400 [facility] ID Date Data Source [id number] 01/29/2021 07:21:20 PM [facility] Name Value Range Interpretation Code Description Data Lesley rce(s) Supporting Document(s) Bilirubin.total [Mass/volume] in Serum or Plasma 29.0 mg/dL <1.2 H [facility] ID Date Data Source [id number] 01/29/2021 07:21:20 PM EDT [facility] Name Value Range Interpretation Code Description Data Lesley rce(s) Supporting Document(s) Bicarbonate [Moles/volume] in Serum 26 mmol/L 22-29 [facility] Chloride [Moles/volume] in Serum or Plasma 104 mmol/L 98-107 [facility] Creatinine [Mass/volume] in Serum or Plasma 1.06 mg/dL 0.70-1.20 [facility] Glucose [Mass/volume] in Serum or Plasma 96 mg/dL 70-140 [facility] Potassium [Moles/volume] in Serum or Plasma 4.5 mmol/L 3.4-5.1 [facility] Sodium [Moles/volume] in Serum or Plasma 137 mmol/L 136-145 [facility] Urea nitrogen [Mass/volume] in Serum or Plasma 33 mg/dL 8-23 H [facility] Anion gap 3 in Serum or Plasma 8 mmol/L 8-15 [facility] Osmolality of Serum or Plasma by calculation 292 mosm/kg 275-300 [facility] Creatinine/Urea nitrogen [Mass Ratio] in Serum or Plasma 31 [facility] Calcium [Mass/volume] in Serum or Plasma 7.9 mg/dL 8.8-10.2 L [facility] Glomerular filtration rate/1.73 sq M pre dicted among non-blacks [Volume Rate/Area] in Serum or Plasma by Creatinine-based formula (MDRD) 71 mL/min/1.73m2 >60 [facility] Glomerular filtration rate/1.73 sq M pre dicted among blacks [Volume Rate/Area] in Serum or Plasma by Creatinine-based formula (MDRD) 82 mL/min/1.73m2 >60 [facility] ID Date Data Source [id number] 01/29/2021 07:37:01 PM EDT [facility] Name Value Range Interpretation Code Description Data Lesley rce(s) Supporting Document(s) Bilirubin.direct [Mass/volume] in Serum or Plasma <0.3 H [facility] Confirmed ID Date Data Source [id number] 01/29/2021 05:45:33 PM EDT [facility] CT ABDOMEN WITH CONTRAST [id number] RESU LTInterpreted by:Fabrice Luis, MDPROCEDURE INFORMATION: Exam: CT Abdomen With Contrast Exam date and time: 01/29/2021 4:42 PM Age: 65 years old Clinical indication: Sepsis due to pseudomonas; Sepsis, unspecified organism; Sepsis, unspecified organism; Sepsis, unspecified organism; Metabolic encephalopathy; Shortness of breath; Right upper quadrant pain; Epigastric pain; Nausea; Fever, unspecified; Severe sepsis without septic shock; Severe sepsis with septic shock; Presence of automatic (implantable) cardiac defibrillator; Other: Liver abcess; Additional info: Per IR to study liver abscesses TECHNIQUE: Imaging protocol: Computed tomography images of the abdomen with intravenous contrast. Radiation optimization: All CT scans at this facility use at least one of these dose optimization techniques: automated exposure control; mA and/or kV adjustment per patient size (includes targeted exams where dose is matched to clinical indication); or iterative recon struction. Contrast material: OMNI 300; Contrast volume: 100 ml; Contrast route: INTRAVENOUS (IV); COMPARISON: CT ABDOMEN PELVIS WITH AND WITHOUT CONTRAST [id number] 01/25/2021 12:47 PM FINDINGS: Limitations: None. Pleural space: Increased but still small right pleural effusion. Worsened right lower lobe consolidation with unchanged less dense infiltrates elsewhere and all visualized lung mittal, right more so than left. Liver: Inhomogeneous liver masses, presumed to represent abscess are more prominent in left liver and now involve a greater portion of the left liver previously spanning about 10-11 cm transverse, now at least 13-14 cm and with more prominent involvement in the anterior portions of the left liver. Presumed right liver abscesses adjacent to the IVC are increased as well, previously about 2.3 cm now about 2.8 cm. Caudate fluid collection 3.5 x 2.5 cm previously 2.2 x 1.6 cm. No intrahepatic gas collections. Gallbladder and bile ducts: Removed. The common bile duct is not enlarged.Augustin creas: Normal. Spleen: Normal. Adrenals: Normal. Kidneys and ureters: Subcentimeter low-density right renal cortical lesions are unchanged. Unremarkable kidneys.Stomach and bowel: Gastric bypass surgical change. Colonic diverticulosis.Intraperitoneal space: No ascites. Lymph nodes: No enlarged or otherwise suspicious lymph nodes. Vasculature: Normal caliber vessels. No occlusions. Mild to moderate diffuse atherosclerosis. Bones/joints: No acute fracture or suspicious osseous lesion. Soft tissues: No masses or abdomial hernia. IMPRESSION: Worsened diffuse liver abscesses and pneumonia, particularly with regards to the right lower lobe.THIS DOCUMENT HAS BEEN ELECTRONICALLY SIGNED BY FABRICE LUIS MDThis document has been electronically signed by Fabrice Luis MD on 01/29/2021 5:45 PM Name Value Range Interpretation Code Description Data Lesley rce(s) Supporting Document(s) ID Date Data Source [id number] [facility]/29[facility]21 09:20[facility] NEEDLE DRAIN PROCEDUREFI NAL RESULTInterpreted by:Arthur Gomez MDPROCEDURE: Ultrasound and CT-guided intrahepatic fluid collection aspiration versus drain placement.CLINICAL HISTORY:65-year-old male with intrahepatic fluid collection, here for aspiration versus drain placement.MODERATE SEDATION: None. Prior to the start of the procedure a "Timeout" was called, confirming the patient by name, medical record number and date of , and the procedure to be performed was confirmed. All procedural staff within the room and the patient are in agree ment.PROCEDURE/FINDINGS:Limited pre-procedural ultrasound demonstrates a fluid collection in the left lobe of the liver which was target for aspiration versus placement. The overlying skin was prepped and draped with sterile technique and was anesthetized with 2% lidocaine injection. Direct ultrasound guidance was used to place a 18-gauge spinal needle into the collection under direct ultrasound guidance, and an image of this was saved into PACS. Aspiration yielded 8 mL of bile tinged purulent material. This was sent for culture and sensitivity. Subsequently, positioning was confirmed with CT guidance. No identifiable fluid collection was seen for appropriate drain placement. The wires and needles were removed. A dressing was applied. A final set of axial CT images was made through the upper abdomen.IMPRESSION: Ultrasound and CT-guided intrahepatic fluid collection aspiration, as described above. No identifiable fluid collection was seen for appropriate drain placement. Follow up cultures.This document has been electronically signed by Maksim Gayle MD on 01/29/2021 9:17 AM Name Value Range Interpretation Code Description Data Lesley rce(s) Supporting Document(s) ID Date Data Source [id number] 01/29/2021 07:12:38 AM [facility] US ABDOMEN LIMITED [id number] RESULT - FINALInterpreted by:Raj Spears BeginsSigned on ThuJanuary 29, 2021 7:12 AM by Jace Villalpando MDThe report should read: Ill-defined hypoechoic foci within the left hepatic lobe.THIS DOCUMENT HAS BEEN ELECTRONICALLY SIGNED BY JACE Anthnoy EndsPROCEDURE INFORMATION: Exam: US Abdomen, Limited; Right Upper Quadrant Exam date and time: 01/29/2021 5:57 AM Age: 65 years old Clinical indication: Sepsis, unspecified organism; Sepsis, unspecified organism; Sepsis, unspecified organism; Shortness of breath; Right upper quadrant pain; Epigastric pain; Nausea; Fever, unspecified; Severe sepsis with septic shock; Presence of automatic (implantable) cardiac defibrillator; Screening exam; Other: Abscess; Prior surgery; Additional info: Ruq for liver abscess TECHNIQUE: Imaging protocol: US abdomen. Real time ultrasound with image documentation. Limited exam focused on the right upper quadrant. COMPARISON: 1. US ABDOMEN LIMITED [id number] PORTABLE 01/21/2021 3:[address] ABDOMEN PELVIS WITH AND WITHOUT CONTRAST [id number] 01/25/2021 12:47:49 PM FINDINGS: Limitations: Portable exam at bedside. Liver: Heterogeneous liver echotexture. Mild hepatomegaly. Ill-defined hypoattenuating foci within the left hepatic lobe. Nodular contour to the liver suggesting hepatic cirrhosis. Gallbladder: The patient is status post cholecystectomy. Common bile duct: Dilated common bile duct measuring 1 cm Pancreas: Pancreas obscured by bowel gas. Right kidney: No mass. No hydronephrosis. IMPRESSION: Ill-defined hypoattenuating foci within the left hepatic lobe. THIS DOCUMENT HAS BEEN ELECTRONICALLY SIGNED BY JACE VILLALPANDO MDThis document has been electronically signed by Jace Villalpando MD on 01/29/2021 7:11 AM Name Value Range Interpretation Code Description Data Lesley rce(s) Supporting Document(s) ID Date Data Source [id number] 01/29/2021 05:24:41 AM [facility] Name Value Range Interpretation Code Description Data Lesley rce(s) Supporting Document(s) Leukocytes [#/volume] in Blood by Automated count 31.6 10*3/uL 4-10 [facility] No significant change since last result called Erythrocytes [#/volume] in Blood by Automated count 3.97 10*6/uL 4.6- 6.1 L [facility] Hemoglobin [Mass/volume] in Blood 11.1 g/dL 13.5-18 L [facility] Hematocrit [Volume Fraction] of Blood by Automated count 33.4 % 4 1-53 L [facility] Erythrocyte mean corpuscular volume [Entitic volume] by Auto mated count 84.2 fL 80-96 [facility] Erythrocyte mean corpuscular hemoglobin [Entitic mass] by Automated count 27.9 pg 27-33 [facility] Erythrocyte mean corpuscular hemoglobin concentration [Mass/volume] by Automated count 33.1 g/dL 32.0-36.0 [facility] distribution width [Ratio] by Automated count 16.7 % 11.5-14.5 H [facility] Platelets [#/volume] in Blood by Automated count 209 10*3/uL 150-400 [facility] ID Date Data Source [id number] 01/29/2021 06:05:28 AM EDT [facility] Name Value Range Interpretation Code Description Data Lesley rce(s) Supporting Document(s) Bicarbonate [Moles/volume] in Serum 28 mmol/L 22-29 [facility] Chloride [Moles/volume] in Serum or Plasma 102 mmol/L 98-107 [facility] Creatinine [Mass/volume] in Serum or Plasma 1.01 mg/dL 0.70-1.20 [facility] Glucose [Mass/volume] in Serum or Plasma 109 mg/dL 70-140 [facility] Potassium [Moles/volume] in Serum or Plasma 4.2 mmol/L 3.4-5.1 [facility] Sodium [Moles/volume] in Serum or Plasma 135 mmol/L 136-145 L [facility] Urea nitrogen [Mass/volume] in Serum or Plasma 33 mg/dL 8-23 H [facility] Anion gap 3 in Serum or Plasma 5 mmol/L 8-15 L [facility] Osmolality of Serum or Plasma by calculation 288 mosm/kg 275-300 [facility] Creatinine/Urea nitrogen [Mass Ratio] in Serum or Plasma 33 [facility] Calcium [Mass/volume] in Serum or Plasma 7.8 mg/dL 8.8-10.2 L [facility] Glomerular filtration rate/1.73 sq M pre dicted among non-blacks [Volume Rate/Area] in Serum or Plasma by Creatinine-based formula (MDRD) 75 mL/min/1.73m2 >60 [facility] Glomerular filtration rate/1.73 sq M pre dicted among blacks [Volume Rate/Area] in Serum or Plasma by Creatinine-based formula (MDRD) 87 mL/min/1.73m2 >60 [facility] ID Date Data Source [id number] 01/29/2021 06:05:28 AM [facility] Name Value Range Interpretation Code Description Data Lesley rce(s) Supporting Document(s) Magnesium [Mass/volume] in Serum or Plasma 2.5 mg/dL 1.6-2.4 H [facility] ID Date Data Source [id number] 01/29/2021 06:05:28 AM [facility] Value Range Interpretation Code Description Data Lesley rce(s) Supporting Document(s) Phosphate [Mass/volume] in Serum or Plasma 2.9 mg/dL 2.5-4.5 [facility] ID Date Data Source [id number] 01/29/2021 06:33:16 AM [facility] Value Range Interpretation Code Description Data Lesley rce(s) Supporting Document(s) Albumin [Mass/volume] in Serum or Plasma by Bromocresol green (BCG) dye binding method 2.3 g/dL 3.5-5.2 [facility] Bilirubin.total [Mass/volume] in Serum or Plasma 24.8 mg/dL <1.2 H [facility] Bilirubin.direct [Mass/volume] in Serum or Plasma 19.0 mg/dL <0.3 H [facility] Confirmed Alkaline phosphatase [Enzymatic activity/volume] in Serum or Plasma 543 U/L 40-129 [facility] Aspartate aminotransferase [Enzymatic activity/volume] in Serum or Plasma 67 U/L <40 [facility] Alanine aminotransferase [Enzymatic activity/volume] in Seru m or Plasma 78 U/L <41 [facility] Protein [Mass/volume] in Serum or Plasma 5.3 g/dL 6.4-8.3 L [facility] Icteric ID Date Data Source [id number] 01/28/2021 08:16:31 PM [facility] Value Range Interpretation Code Description Data Lesley rce(s) Supporting Document(s) Leukocytes [#/volume] in Blood by Automated count 33.8 10*3/uL 4-10 [facility] No significant change since last result called Erythrocytes [#/volume] in Blood by Automated count 3.99 10*6/uL 4.6- 6.1 L [facility] Hemoglobin [Mass/volume] in Blood 11.2 g/dL 13.5-18 L [facility] Hematocrit [Volume Fraction] of Blood by Automated count 33.7 % 4 1-53 L [facility] Erythrocyte mean corpuscular volume [Entitic volume] by Auto mated count 84.5 fL 80-96 [facility] Erythrocyte mean corpuscular hemoglobin [Entitic mass] by Automated count 28.2 pg 27-33 [facility] Erythrocyte mean corpuscular hemoglobin concentration [Mass/volume] by Automated count 33.4 g/dL 32.0-36.0 [facility] distribution width [Ratio] by Automated count 16.6 % 11.5-14.5 [facility] Platelets [#/volume] in Blood by Automated count 206 10*3/uL 150-400 [facility] ID Date Data Source [id number] 01/28/2021 08:23:32 PM [facility] Name Value Range Interpretation Code Description Data Lesley rce(s) Supporting Document(s) Bilirubin.total [Mass/volume] in Serum or Plasma 23.8 mg/dL <1.2 [facility] ID Date Data Source [id number] 01/28/2021 08:23:32 PM [facility] Name Value Range Interpretation Code Description Data Lesley rce(s) Supporting Document(s) Bicarbonate [Moles/volume] in Serum 23 mmol/L 22-29 [facility] Chloride [Moles/volume] in Serum or Plasma 98 mmol/L 98-107 [facility] Creatinine [Mass/volume] in Serum or Plasma 1.05 mg/dL 0.70-1.20 [facility] Icteric Glucose [Mass/volume] in Serum or Plasma 142 mg/dL 70-140 [facility] Potassium [Moles/volume] in Serum or Plasma 4.2 mmol/L 3.4-5.1 [facility] Sodium [Moles/volume] in Serum or Plasma 130 mmol/L 136-145 [facility] Urea nitrogen [Mass/volume] in Serum or Plasma 32 mg/dL 8-23 [facility] Anion gap 3 in Serum or Plasma 9 mmol/L 8-15 [facility] Osmolality of Serum or Plasma by calculation 280 mosm/kg 275-300 [facility] Creatinine/Urea nitrogen [Mass Ratio] in Serum or Plasma 31 [facility] Calcium [Mass/volume] in Serum or Plasma 7.6 mg/dL 8.8-10.2 L [facility] Glomerular filtration rate/1.73 sq M pre dicted among non-blacks [Volume Rate/Area] in Serum or Plasma by Creatinine-based formula (MDRD) 71 mL/min/1.73m2 >60 [facility] Glomerular filtration rate/1.73 sq M pre dicted among blacks [Volume Rate/Area] in Serum or Plasma by Creatinine-based formula (MDRD) 83 mL/min/1.73m2 >60 [facility] ID Date Data Source [id number] 01/28/2021 09:40:42 PM EDT [facility] Name Value Range Interpretation Code Description Data Lesley rce(s) Supporting Document(s) Bilirubin.direct [Mass/volume] in Serum or Plasma <0.3 [facility] Confirmed ID Date Data Source [id number] 01/28/2021 12:04:32 PM EDT [facility] XR CHEST FRONTAL ONLY [id number] RESULTI nterpreted by:Odalys Crocker MDINDICATION: Evaluate for loculated effusion.TECHNIQUE: 3 frontal views of the chest were obtained.COMPARISON: Chest radiograph dated 01/26/2021.FINDINGS: Left subclavian approach ICD is again noted. The cardiomediastinal contours are unchanged. There is no pneumothorax. Mild blunting of the right costophrenic angle which could represent a small pleural effusion. Persistent diffuse airspace opacities throughout the right lung, not significantly changed when compared to prior study. The osseous struct ures of the chest wall are grossly unchanged. Median sternotomy wires are intact. IMPRESSION: 1. Mild blunting of the right costophrenic angle which could represent a small pleural effusion.2. Otherwise, no significant interval change.This document has been electronically signed by JHONY Crocker on 01/28/2021 12:02 PM Name Value Range Interpretation Code Description Data Lesley rce(s) Supporting Document(s) ID Date Data Source [id number] 01/28/2021 11:32:28 AM [facility] Name Value Range Interpretation Code Description Data Lesley rce(s) Supporting Document(s) pH of Venous blood 7.36 7.36-7.41 [facility] Carbon dioxide [Partial pressure] in Venous blood 48 mmHg 40-45 [facility] Oxygen [Partial pressure] in Venous blood 28 mmHg [facility] Base excess in Venous blood by calculation 1 [facility] Carbon dioxide, total [Moles/volume] in Venous blood by calculat ion 28 mmol/L [facility] Oxygen saturation in Venous blood 49 % 60-85 L [facility] ID Date Data Source [id number] 01/28/2021 04:28:31 AM [facility] Name Value Range Interpretation Code Description Data Lesley rce(s) Supporting Document(s) Leukocytes [#/volume] in Blood by Automated count 35.5 10*3/uL 4-10 [facility] Called to and read back by julia sifuentes rn on 6 at 424 by 2050 Erythrocytes [#/volume] in Blood by Automated count 4.41 10*6/uL 4.6- 6.1 [facility] Hemoglobin [Mass/volume] in Blood 12.2 g/dL 13.5-18 L [facility] Hematocrit [Volume Fraction] of Blood by Automated count 37.6 % 4 1-53 [facility] Erythrocyte mean corpuscular volume [Entitic volume] by Auto mated count 85.3 fL 80-96 [facility] Erythrocyte mean corpuscular hemoglobin [Entitic mass] by Automated count 27.8 pg 27-33 [facility] Erythrocyte mean corpuscular hemoglobin concentration [Mass/volume] by Automated count 32.5 g/dL 32.0-36.0 [facility] E[facility]throcyte distribution width [Ratio] by Automated count 16.2 % 11.5-14.5 [facility] Platelets [#/volume] in Blood by Automated count 214 10*3/uL 150-400 [facility] ID Date Data Source [id number] 01/28/2021 04:36:46 AM [facility] Name Value Range Interpretation Code Description Data Lesley rce(s) Supporting Document(s) Bicarbonate [Moles/volume] in Serum 25 mmol/L 22-29 [facility] Chloride [Moles/volume] in Serum or Plasma 96 mmol/L 98-107 [facility] Creatinine [Mass/volume] in Serum or Plasma 1.03 mg/dL 0.70-1.20 [facility] Icteric Glucose [Mass/volume] in Serum or Plasma 149 mg/dL 70-140 [facility] Potassium [Moles/volume] in Serum or Plasma 4.1 mmol/L 3.4-5.1 [facility] Sodium [Moles/volume] in Serum or Plasma 129 mmol/L 136-145 [facility] Urea nitrogen [Mass/volume] in Serum or Plasma 26 mg/dL 8-23 [facility] Anion gap 3 in Serum or Plasma 8 mmol/L 8-15 [facility] Osmolality of Serum or Plasma by calculation 275 mosm/kg 275-300 [facility] Creatinine/Urea nitrogen [Mass Ratio] in Serum or Plasma 26 [facility] Calcium [Mass/volume] in Serum or Plasma 7.8 mg/dL 8.8-10.2 L [facility] Glomerular filtration rate/1.73 sq M pre dicted among non-blacks [Volume Rate/Area] in Serum or Plasma by Creatinine-based formula (MDRD) 73 mL/min/1.73m2 >60 [facility] Glomerular filtration rate/1.73 sq M pre dicted among blacks [Volume Rate/Area] in Serum or Plasma by Creatinine-based formula (MDRD) 85 mL/min/1.73m2 >60 [facility] ID Date Data Source [id number] 01/28/2021 04:36:46 AM [facility] Value Range Interpretation Code Description Data Lesley rce(s) Supporting Document(s) Vancomycin [Mass/volume] in Serum or Plasma 13.0 ug/mL [facility] ID Date Data Source [id number] 01/28/2021 04:36:46 AM [facility] Value Range Interpretation Code Description Data Lesley rce(s) Supporting Document(s) Magnesium [Mass/volume] in Serum or Plasma 2.1 mg/dL 1.6-2.4 [facility] ID Date Data Source [id number] 01/28/2021 04:36:46 AM EDT [facility] Name Value Range Interpretation Code Description Data Lesley rce(s) Supporting Document(s) Phosphate [Mass/volume] in Serum or Plasma 2.8 mg/dL 2.5-4.5 [facility] ID Date Data Source [id number] 01/28/2021 05:27:57 AM [facility] Name Value Range Interpretation Code Description Data Lesley rce(s) Supporting Document(s) Albumin [Mass/volume] in Serum or Plasma by Bromocresol green (BCG) dye binding method 1.9 g/dL 3.5-5.2 [facility] Bilirubin.total [Mass/volume] in Serum or Plasma 19.1 mg/dL <1.2 [facility] Confirmed Bilirubin.direct [Mass/volume] in Serum or Plasma 15.1 mg/dL <0.3 [facility] Confirmed Alkaline phosphatase [Enzymatic activity/volume] in Serum or Plasma 650 U/L 40-129 [facility] Aspartate aminotransferase [Enzymatic activity/volume] in Serum or Plasma 80 U/L <40 [facility] Alanine aminotransferase [Enzymatic activity/volume] in Seru m or Plasma 102 U/L <41 [facility] Protein [Mass/volume] in Serum or Plasma 5.4 g/dL 6.4-8.3 L [facility] Icteric ID Date Data Source [id number] 01/27/2021 04:36:22 PM [facility] Name Value Range Interpretation Code Description Data Lesley rce(s) Supporting Document(s) Vancomycin [Mass/volume] in Serum or Plasma 4.8 ug/mL [facility] ID Date Data Source [id number] 01/27/2021 06:06:00 AM [facility] Name Value Range Interpretation Code Description Data Lesley rce(s) Supporting Document(s) Bicarbonate [Moles/volume] in Serum 25 mmol/L 22-29 [facility] Chloride [Moles/volume] in Serum or Plasma 91 mmol/L 98-107 [facility] Creatinine [Mass/volume] in Serum or Plasma 1.40 mg/dL 0.70-1.20 [facility] Icteric Glucose [Mass/volume] in Serum or Plasma 92 mg/dL 70-140 [facility] Potassium [Moles/volume] in Serum or Plasma 3.9 mmol/L 3.4-5.1 [facility] Hemolyzed Sodium [Moles/volume] in Serum or Plasma 128 mmol/L 136-145 [facility] Urea nitrogen [Mass/volume] in Serum or Plasma 24 mg/dL 8-23 [facility] Anion gap 3 in Serum or Plasma 13 mmol/L 8-15 [facility] Osmolality of Serum or Plasma by calculation 271 mosm/kg 275-300 [facility] Creatinine/Urea nitrogen [Mass Ratio] in Serum or Plasma 17 [facility] Calcium [Mass/volume] in Serum or Plasma 8.1 mg/dL 8.8-10.2 [facility] Glomerular filtration rate/1.73 sq M pre dicted among non-blacks [Volume Rate/Area] in Serum or Plasma by Creatinine-based formula (MDRD) 50 mL/min/1.73m2 >60 [facility] Glomerular filtration rate/1.73 sq M pre dicted among blacks [Volume Rate/Area] in Serum or Plasma by Creatinine-based formula (MDRD) 59 mL/min/1.73m2 >60 [facility] ID Date Data Source [id number] 01/27/2021 06:25:59 AM [facility] Name Value Range Interpretation Code Description Data Lesley rce(s) Supporting Document(s) Albumin [Mass/volume] in Serum or Plasma by Bromocresol green (BCG) dye binding method 2.2 g/dL 3.5-5.2 [facility] Bilirubin.total [Mass/volume] in Serum or Plasma 15.9 mg/dL <1.2 [facility] Bilirubin.direct [Mass/volume] in Serum or Plasma 13.4 mg/dL <0.3 [facility] Confirmed Alkaline phosphatase [Enzymatic activity/volume] in Serum or Plasma 652 U/L 40-129 [facility] Aspartate aminotransferase [Enzymatic activity/volume] in Serum or Plasma 128 U/L <40 [facility] Alanine aminotransferase [Enzymatic activity/volume] in Seru m or Plasma 137 U/L <41 [facility] Protein [Mass/volume] in Serum or Plasma 5.8 g/dL 6.4-8.3 L [facility] ID Date Data Source [id number] 01/28/2021 12:47:36 PM EDT [facility] Service Cmnt XXX-Imp : R ACMicroorganism XXX Cult : Smear:Gram negative rodsin aerobic broth.Called to and read back byASHLEIGH DEUTSCH RN 6I 1905 BY [id number] [id number] aeruginosaATTENTION This species is always resistant to aminopenicillins, ampicillin-sulbactam, amoxicillin-clavulanic acid, first- generation cephalosporins, cefuroxime, cephamycins, cefotaxime, ceftriaxone, ertapenem, tetracyclines, trimethoprim, trimethoprim-sulfamethoxazole, and chloramphenicol.in aerobic broth. Name Value Range Interpretation Code Description Data [facility](s) Supporting Document(s) ID Date Data Source [id number] 01/28/2021 12:49:28 PM EDT [facility] Service Cmnt XXX-Imp : L UPPER ARMMicroo rganism XXX Cult : Smear:Gram negative rodsin aerobic broth.Called to and read back byASHLEIGH DEUTSCH RN 6I 1905 BY [id number] aeruginosaATTENTION This species is always resistant to aminopenicillins, ampicillin-sulbactam, amoxicillin-clavulanic acid, first- generation cephalosporins, cefuroxime, cephamycins, cefotaxime, ceftriaxone, ertapenem, tetracyclines, trimethoprim, trimethoprim-sulfamethoxazole, and chloramphenicol.in aerobic broth. Name Value Range Interpretation Code Description Data [facility](s) Supporting Document(s) ID Date Data Source [id number] 01/26/2021 11:17:18 PM EDT [facility] XR CHEST FRONTAL ONLY [id number] RESULTI nterpreted by:Verónica Kim MDPROCEDURE INFORMATION: Exam: XR Chest Exam date and time: 01/26/2021 10:49 PM Age: 65 years old Clinical indication: Sepsis, unspecified organism; Sepsis, unspecified organism; Shortness of breath; Right upper quadrant pain; Epigastric pain; Nausea; Fever, unspecified; Presence of automatic (implantable) cardiac defibrillator; Other: Abnormal lung sounds TECHNIQUE: Imaging protocol: XR of the chest. Views: 1 view. COMPARISON: DX XR CHEST FRONTAL ONLY [id number] PORTABLE 01/26/2021 9:00 AM FINDINGS: Tubes, catheters and devices: Left-sided pacemaker in stable position. Surgical clips overlie left upper quadrant. Lungs: Prominent right hilum. Diffuse opacities within the right lung are grossly unchanged. Left lower lung opacity grossly unchanged. Pleural spaces: No pneumothorax. Heart/Mediastinum: The heart is enlarged. Surgical changes within the mediastinum. Bones/joints: Midline sternotomy wires appear intact. IMPRESSION: No significant interval change is visualized. THIS DOCUMENT HAS BEEN ELECTRONICALLY SIGNED BY VERÓNICA KIM MDThis document has been electronically signed by Verónica Kim MD on 01/26/2021 11:17 PM Name Value Range Interpretation Code Description Data Lesley rce(s) Supporting Document(s) ID Date Data Source [id number] 01/26/2021 10:47:16 PM [facility] Name Value Range Interpretation Code Description Data Lesley rce(s) Supporting Document(s) Phosphate [Mass/volume] in Serum or Plasma 3.0 mg/dL 2.5-4.5 [facility] ID Date Data Source [id number] 01/26/2021 10:47:16 PM [facility] Value Range Interpretation Code Description Data Lesley rce(s) Supporting Document(s) Magnesium [Mass/volume] in Serum or Plasma 2.2 mg/dL 1.6-2.4 [facility] ID Date Data Source [id number] 01/26/2021 10:47:16 PM [facility] Value Range Interpretation Code Description Data Lesley rce(s) Supporting Document(s) Bicarbonate [Moles/volume] in Serum 29 mmol/L 22- [facility] Chloride [Moles/volume] in Serum or Plasma 95 mmol/L 98-107 [facility] Creatinine [Mass/volume] in Serum or Plasma 1.04 mg/dL 0.70-1.20 [facility] Icteric Glucose [Mass/volume] in Serum or Plasma 114 mg/dL 70-140 [facility] Potassium [Moles/volume] in Serum or Plasma 4.4 mmol/L 3.4-5.1 [facility] Sodium [Moles/volume] in Serum or Plasma 132 mmol/L 136-145 L [facility] Urea nitrogen [Mass/volume] in Serum or Plasma 21 mg/dL 8- [facility] Anion gap 3 in Serum or Plasma 8 mmol/L 8-15 [facility] Osmolality of Serum or Plasma by calculation 278 mosm/kg 275-300 [facility] Creatinine/Urea nitrogen [Mass Ratio] in Serum or Plasma 20 [facility] Calcium [Mass/volume] in Serum or Plasma 8.2 mg/dL 8.8-10.2 L [facility] Glomerular filtration rate/1.73 sq M pre dicted among non-blacks [Volume Rate/Area] in Serum or Plasma by Creatinine-based formula (MDRD) 72 mL/min/1.73m2 >60 [facility] Glomerular filtration rate/1.73 sq M pre dicted among blacks [Volume Rate/Area] in Serum or Plasma by Creatinine-based formula (MDRD) 84 mL/min/1.73m2 >60 [facility] ID Date Data Source [id number] 01/26/2021 11:24:05 PM [facility] Name Value Range Interpretation Code Description Data Lesley rce(s) Supporting Document(s) Thyrotropin [Units/volume] in Serum or Plasma 0.250 u[IU]/mL 0.270-4. 200 [facility] ID Date Data Source [id number] 01/26/2021 10:44:25 PM [facility] Name Value Range Interpretation Code Description Data Lesley rce(s) Supporting Document(s) Lactate [Moles/volume] in Serum or Plasma 1.7 mmol/l 0.5-2.2 [facility] ID Date Data Source [id number] 01/26/2021 03:57:47 PM [facility] Value Range Interpretation Code Description Data Lesley rce(s) Supporting Document(s) History and Physical [facility] FRXJVn8uYvYNGlOk43/JICdaPKIbr3YkWMxlAUm5NGsqCJCfK0RlLXJ0oZ3tQKZ6WNwUXaVnJmHjWYSu lbm [file] AgICAgICAgICAgICAgICAgICAgICAgICAgICAgICAg KCFaEGAiZRFdGWJyNVYsUMFaVFFvNB6HJXGjGHYzKVVcNPJcXKSvRSUhDGEsZBJmAPClNZNvUKZqDZZq ICAgICAgICAgICAgICAgICAgICAgICAgICAgICAgICAgICAgICAgICAgICAgICAgICAgICAgICAgICAg FKDeFU4WIJDcDPMiFAQuKBIvMXGhAISxIKHeBDNfQB AgICAgICAgICAgICAgICAgICAgICAgICAgICAgICAgICAgICAgICAgICAgICAgICAgICAgICAgICAgIC FcNCSpHOLdMCMlPWZpVF1ZZLBrISJrYCGmNFKbOBXoIAUkBEToPKRcGYFcZOCjJQFqLMGfVFTpYUZsLB AgICAgICAgICAgICAgICAgICAgICAgICAgICAgICAg IZHsLYBvQGXnVTUaGHKlXCXrZYIkSOYlCM3UJXYlJMFnUVGvMQYxKSEpJLGiMGYyWHCtLJCxIJOdXCDl ICAgICAgICAgICAgICAgICAgICAgICAgICAgICAgICAgICAgICAgICAgICAgICAgICAgICAgICAgICAg IQPxTZNkZO6GZXFtFPFhQNSpSBEuTILxYJVqORRsYG AgICAgICAgICAgICAgICAgICAgICAgICAgICAgICAgICAgICAgICAgICAgICAgICAgICAgICAgICAgIC SmUWZyNGYkLRTcDMQuGDMvOW5ARRTiJRBaPTTgXFIhRSYeUGGzVWSgPDTqYKKvIHRrQUNsUIJkUCRpLH AgICAgICAgICAgICAgICAgICAgICAgICAgICAgICAg TUYkUZYxMLOcEQItRQWsGSVeEBCvOSQnMPAgBA7BAWZsCEBwXRLxGSLcMJTjKCLbABAqCUTyYNRlWEAf ICAgICAgICAgICAgICAgICAgICAgICAgICAgICAgICAgICAgICAgICAgICAgICAgICAgICAgICAgICAg GELnOTKsTBTlEE7MNCOgQHQsVXFjTRRgPSIeFPYsJB AgICAgICAgICAgICAgICAgICAgICAgICAgICAgICAgICAgICAgICAgICAgICAgICAgICAgICAgICAgIC RnQPCjPWPtOXVpMJKzBOAtFYSyIV1YEZVrBSQbUWWnWYEjQIKmGDMjFZHgFKFsVOPxHCWwGQTzCIOoTP AgICAgICAgICAgICAgICAgICAgICAgICAgICAgICAg TMYfUNEiRYOtUSDcVWRiHGBhGIGzZHYlJMYlPGHhKI5RVJ78lCHku7W5LHBzRR5elka/Bt3DWTqrfoLm kCWaDC7LGuExSP2cyn2SEuUxFG0ceh5DINzEMdOkG2Q3aAJxTTUqJDAKNxWhV71iYMpwQr62JQvzDRKk RdLyYUj2Km7ASvNlY0jxMELyErT8XXGuKxT2CNWoAp Q4BVQoRzOaXYYaCNSpZZFoEMGIPTT4DPNjLnHsWCocDH8Ji6HxiBX1BWc+Dc4WTV5dm3CdYOtiUSSpZO 7zss2HGMgGDuTaW5EhiyK5CEU7MKMiOh5MGGWgJQPrdLXiINGtDCYOPtMoK7PuiA09ALREUv7+DQplbm AxGkpPMnK3HDWjg1BfIKp2TK7CYROiSBz3mYMbCKMV MHQ1WCcqoGYhBUBjjhtqwRFfKQJCJqGWRFU9NOZyZY9zINZcQOFsWcL4MDHAWS7XGUOvRHPfjNMwTEVt KNCBLA6EXRfpMMN6AAVkdpVglEKxJXsoVP6AYJHpjpSkBeyzQLOSIDq+Yy6BKZ4hr3BwBZo9SPEwCH5q gk0ZKOiBTuKmW0A1mIVqB0B7NYdwXa9RLYUcSBRtPk PyGWONHBoeYL3ETT5aoqY8JZ4GwXTdESRaKZGigEKcPDs2T14drCZnKAbqVF7FHIQ+Doyle+Oy0OWDRdPZ JmUIAoGnMjZLMPBsTsM7VfS3LBc4DbI0JlJU12uMjhfhJyNHojJW0JPQ5tVULaXQGVTF3PxBZbvM9kxj IdLJZkUXUCEcPcO27cpENnLDPzHZT5NRZtTr0MRWUc U3QeqeIbzEdawdUaDHNbOKJMUG2ICCokrrYwkWAsgXwzWR00yFbqWE9RRc1UQzRbYW3wui2RlXAdJq9H NES7QG8TZXTtIBDcOSQbOXA2ZNDiCxDeZXbpHNAeCBKgNCR5ECMkZUIzMS2QSqQqUGPzOLM9WtojAIRa PSIfef2TKGVjMAR5VsJvHQDxNFQqGHIkXXeaWCGtDF MxLLE4JFRkOUSrSQ7HJgTdUWSrKBC1BiUeXWKpAYCmkn0CUGBoBNZkLLCpGIGrRKWiOQDoGVxcYIDfWB W3XWX0CABzEXOlUI2CPdTjKYQmABnaQxGdSFDgOQCbnk8TYKAdXVOuXgIpTaJlBKRgJEDkDMnmJKXySP HoDNZ1QBCkTGTjCK0WChKrEGCdMKGbVLdfDBIzNQYl eq0BGHFwILGpOnE4KSYtFDCmHNWnSFbzEBSeSVBsYZY4HUHpOJYoTO0SPcGeKJZoJqLyCPZaPGWgYOOk pl1UHLCtJSPlJwJvGZHtNAVbRPFnROdmDUFjBBZjXcGuPXFaKTDqBV2ADaWkCKAnFfH8UZToQPCmABBf da5PQMPvJVWeIrq7UtCdBAWlXZTiPUqgYIWfRKOrXO iyEVPeWWWrST2WBoDxODKzFvU5ZkqlCGRrMJIqrc2HZBFpVPBiNRFaSSFzSYZpEWExJTquAJKrWAW7He G4NCQoFGLeTV9XJrGuQYMcFpVyXytxTFNiJEMfey2RESHlAFNrUrI6ZOZfMLCwRIRhHVceIKCqDJQ7Ij Q3LONyYMEwGU4JPjTrZMGmBai0DfsvUDAjKKIcsv1U EKRsAEGvAcbpGOIaWTJkKLGbBRppYJOqAZN7JFB6OCBpPJOkYR8XZaVjDIXiQlltURJrSBBvRKVlru2F LFXxXJOtCHpuQQXyFKCzKGMdTRekRJNmNVV4ZBThJDDqKENlEN7UKfCzAKPoYYWxTCecNFCvMVEsku3W NCEdMCR3ZVOmSUQaTITcJQZaVZwdIYYeIOTfSpI1IR WmESQcPH0IClFgPOSoGEP1CzfaELCqKUYmwi5YFHDiZFQ1BWFhVDNkODTkNRWvPDckWBDiUUQjEYR9NM KfMQGcHR4WHtLuRVAmKBI2OnCfDPJeKBSmcd1BDVTrMSB2BjYbXbIsLEOyBOVoDXuxEIEuPBDyXfH4GQ MyINDwTB2TBqLiUPotTNXJPzp9ITchO7e7XAK9HN3Z B7Oqr8SxQYVdKDJVOMqrHH0xkrGoYLJcZk3HP5dEJky0T4OoUQn7GIgnFqD0RpDjWUx0WZSxWuP9NSNq OexkYw7jPUQtLNFzGCVrBPNqLSHnUSEcOIZ7GwUuBSRzRXJlPKXmZfQgYI5HGv1QYdY0QIJ6eSAyNh3S SAR3HDtBRlUwUJ0RIUz= ID Date Data Source [id number] 01/26/2021 02:26:05 PM EDT [facility] Name Value Range Interpretation Code Description Data Lesley rce(s) Supporting Document(s) Hepatitis A virus IgM Ab [Presence] in Serum or Plasma by Im munoassay Non Reactive [facility] No acute infection, susceptible to infec tion. Hepatitis B virus core IgM Ab [Presence] in Serum or Plasma by Immunoassay [facility] Reactive [facility] IgM antibodies to HBc were not detected, does not exclude the possibility of exposure to HBV. Hepatitis C virus Ab [Presence] in Serum or Plasma by Immuno assay [facility] Reactive [facility] No serological evidence of active infect ion. If recent exposure is suspected, test for HCV RNA. Hepatitis B virus surface Ag [Presence] in Serum or Plasma b y Immunoassay Non Reactive [facility] No active or previous infection. Suscept ible to infection. ID Date Data Source [id number] 01/26/2021 09:26:36 AM EDT [facility] XR CHEST FRONTAL ONLY [id number] RESULTI nterpreted by:Bela Vasquez MDINDICATION: Evaluation of lungs after bolus.COMPARISON: Chest radiograph dated 01/20/2021.TECHNIQUE: A single portable radiograph of the chest was performed with patient 75 degrees.FINDINGS: The heart is enlarged.Midline sternotomy wires appear intact. Surgical changes within the mediastinum. Left-sided pacemaker in stable position. Pacemaker battery pack overlies left costophrenic angle. Surgical clips overlie left upper quadrant. Diffuse opacities within the right lung are grossly unchanged. Left lower lung opacity grossly unchanged.IMPRESSION: No significant interval change is visualized.This document has been electronically signed by Bela Vasquez MD on 01/26/2021 9:24 AM Name Value Range Interpretation Code Description Data Lesley rce(s) Supporting Document(s) ID Date Data Source [id number] [facility] Interpretation Code Description Data [facility] rce(s) Supporting Document(s) Leukocytes [#/volume] in Blood by Automated count 20.2 10*3/uL 4-10 H [facility] Erythrocytes [#/volume] in Blood by Automated count 4.33 10*6/uL 4.6- 6.1 L [facility] Hemoglobin [Mass/volume] in Blood 12.0 g/dL 13.5-18 L [facility] Hematocrit [Volume Fraction] of Blood by Automated count 36.7 % 4 1-53 L [facility] Erythrocyte mean corpuscular volume [Entitic volume] by Auto mated count 84.7 fL 80-96 [facility] Erythrocyte mean corpuscular hemoglobin [Entitic mass] by Automated count 27.8 pg 27-33 [facility] Erythrocyte mean corpuscular hemoglobin concentration [Mass/volume] by Automated count 32.7 g/dL 32.0-36.0 [facility] width [Ratio] by Automated count 16.0 % 11.5-14.5 H [facility] Platelets [#/volume] in Blood by Automated count 197 10*3/uL 150-400 [facility] Differential cell count method - Blood [facility] Neutrophils/100 leukocytes in Blood by Automated count 86 % [facility] Lymphocytes/100 leukocytes in Blood by Automated count 5 % [facility] Monocytes/100 leukocytes in Blood by Automated count 8 % [facility] Eosinophils/100 leukocytes in Blood by Automated count 1 % [facility] Basophils/100 leukocytes in Blood by Automated count 0 % [facility] Neutrophils [#/volume] in Blood by Automated count 17.46 10*3/uL 1.8- 7.0 H [facility] Lymphocytes [#/volume] in Blood by Automated count 0.95 10*3/uL 1.2-4 .0 L [facility] Monocytes [#/volume] in Blood by Automated count 1.56 10*3/uL 0-0.8 H [facility] Eosinophils [#/volume] in Blood by Automated count 0.10 10*3/uL 0-0.5 [facility] Basophils [#/volume] in Blood by Automated count 0.09 10*3/uL 0-0.2 [facility] Nucleated erythrocytes/100 leukocytes [Ratio] in Blood by Automated count 0 /100{WBCs} 0-0 [facility] ID Date Data Source [id number] 01/26/2021 10:11:33 AM EDT [facility] Name Value Range Interpretation Code Description Data Lesley rce(s) Supporting Document(s) Albumin [Mass/volume] in Serum or Plasma by Bromocresol green (BCG) dye binding method 2.5 g/dL 3.5-5.2 [facility] Bil[facility].total [Mass/volume] in Serum or Plasma 15.4 mg/dL <1.2 H [facility] Calcium [Mass/volume] in Serum or Plasma 7.7 mg/dL 8.8-10.2 L [facility] Chloride [Moles/volume] in Serum or Plasma 95 mmol/L 98-107 L [facility] Creatinine [Mass/volume] in Serum or Plasma 1.26 mg/dL 0.70-1.20 H [facility] Icteric Glucose [Mass/volume] in Serum or Plasma 103 mg/dL 70-140 [facility] Alkaline phosphatase [Enzymatic activity/volume] in Serum or Plasma 647 U/L 40-129 H [facility] Potassium [Moles/volume] in Serum or Plasma 3.3 mmol/L 3.4-5.1 L [facility] Protein [Mass/volume] in Serum or Plasma 5.5 g/dL 6.4-8.3 L [facility] Sodium [Moles/volume] in Serum or Plasma 133 mmol/L 136-145 L [facility] Aspartate aminotransferase [Enzymatic activity/volume] in Serum or Plasma 134 U/L <40 H [facility] Urea nitrogen [Mass/volume] in Serum or Plasma 24 mg/dL 8-23 H [facility] Osmolality of Serum or Plasma by calculation 280 mosm/kg 275-300 [facility] Creatinine/Urea nitrogen [Mass Ratio] in Serum or Plasma 19 [facility] Bicarbonate [Moles/volume] in Serum 29 mmol/L 22-29 [facility] Alanine aminotransferase [Enzymatic activity/volume] in Seru m or Plasma 145 U/L <41 H [facility] Anion gap 3 in Serum or Plasma 9 mmol/L 8-15 [facility] Glomerular filtration rate/1.73 sq M pre dicted among non-blacks [Volume Rate/Area] in Serum or Plasma by Creatinine-based formula (MDRD) 57 mL/min/1.73m2 >60 L [facility] Glomerular filtration rate/1.73 sq M pre dicted among blacks [Volume Rate/Area] in Serum or Plasma by Creatinine-based formula (MDRD) 66 mL/min/1.73m2 >60 [facility] ID Date Data Source [id number] 01/26/2021 10:11:33 AM [facility] Value Range Interpretation Code Description Data Lesley rce(s) Supporting Document(s) Magnesium [Mass/volume] in Serum or Plasma 2.2 mg/dL 1.6-2.4 [facility] ID Date Data Source [id number] 01/26/2021 10:11:33 AM [facility] Value Range Interpretation Code Description Data Lesley rce(s) Supporting Document(s) Phosphate [Mass/volume] in Serum or Plasma 2.3 mg/dL 2.5-4.5 L [facility] ID Date Data Source [id number] 01/26/2021 10:20:53 AM [facility] Value Range Interpretation Code Description Data Lesley rce(s) Supporting Document(s) Natriuretic peptide.B prohormone N-Terminal [Mass/volu me] in Serum or Plasma 1273 pg/mL <125 H [facility] ID Date Data Source [id number] 01/26/2021 02:00:15 PM [facility] Value Range Interpretation Code Description Data Lesley rce(s) Supporting Document(s) Lactate dehydrogenase [Enzymatic activit y/volume] in Serum or Plasma by Lactate to pyruvate reaction 577 U/L 122-225 H [facility] ID Date Data Source [id number] 01/26/2021 09:55:03 AM [facility] Value Range Interpretation Code Description Data Lesley rce(s) Supporting Document(s) Lactate [Moles/volume] in Serum or Plasma 2.0 mmol/l 0.5-2.2 [facility] ID Date Data Source [id number] 01/26/2021 09:46:16 AM [facility] Value Range Interpretation Code Description Data Lesley rce(s) Supporting Document(s) Calcium.ionized [Moles/volume] in Arterial blood 1.07 mmol/L 1.13-1.3 2 L [facility] ID Date Data Source [id number] 01/26/2021 05:18:49 AM [facility] Value Range Interpretation Code Description Data Lesley rce(s) Supporting Document(s) Leukocytes [#/volume] in Blood by Automated count 19.5 10*3/uL 4-10 H [facility] Erythrocytes [#/volume] in Blood by Automated count 4.48 10*6/uL 4.6- 6.1 L [facility] Hemoglobin [Mass/volume] in Blood 12.5 g/dL 13.5-18 L [facility] Hematocrit [Volume Fraction] of Blood by Automated count 37.8 % 4 1-53 L [facility] Erythrocyte mean corpuscular volume [Entitic volume] by Auto mated count 84.5 fL 80-96 [facility] Erythrocyte mean corpuscular hemoglobin [Entitic mass] by Automated count 28.0 pg 27-33 [facility] Erythrocyte mean corpuscular hemoglobin concentration [Mass/volume] by Automated count 33.1 g/dL 32.0-36.0 [facility] E[facility]th[facility] distribution width [Ratio] by Automated count 15.9 % 11.5-14.5 H [facility] Platelets [#/volume] in Blood by Automated count 191 10*3/uL 150-400 [facility] Differential cell count method - Blood [facility] Neutrophils/100 leukocytes in Blood by Automated count 85 % [facility] Lymphocytes/100 leukocytes in Blood by Automated count 6 % [facility] Monocytes/100 leukocytes in Blood by Automated count 8 % [facility] Eosinophils/100 leukocytes in Blood by Automated count 1 % [facility] Basophils/100 leukocytes in Blood by Automated count 0 % [facility] Neutrophils [#/volume] in Blood by Automated count 16.63 10*3/uL 1.8- 7.0 H [facility] Lymphocytes [#/volume] in Blood by Automated count 1.16 10*3/uL 1.2-4 .0 L [facility] Monocytes [#/volume] in Blood by Automated count 1.58 10*3/uL 0-0.8 H [facility] Eosinophils [#/volume] in Blood by Automated count 0.12 10*3/uL 0-0.5 [facility] Basophils [#/volume] in Blood by Automated count 0.03 10*3/uL 0-0.2 [facility] Nucleated erythrocytes/100 leukocytes [Ratio] in Blood by Automated count 0 /100{WBCs} 0-0 [facility] ID Date Data Source [id number] 01/26/2021 05:47:32 AM EDT [facility] Name Value Range Interpretation Code Description Data Lesley rce(s) Supporting Document(s) Bicarbonate [Moles/volume] in Serum 27 mmol/L 22-29 [facility] Chloride [Moles/volume] in Serum or Plasma 93 mmol/L 98-107 L [facility] Creatinine [Mass/volume] in Serum or Plasma 1.02 mg/dL 0.70-1.20 [facility] Icteric Glucose [Mass/volume] in Serum or Plasma 84 mg/dL 70-140 [facility] Potassium [Moles/volume] in Serum or Plasma 3.2 mmol/L 3.4-5.1 L [facility] Sodium [Moles/volume] in Serum or Plasma 134 mmol/L 136-145 L [facility] Urea nitrogen [Mass/volume] in Serum or Plasma 20 mg/dL 8-23 [facility] Anion gap 3 in Serum or Plasma 13 mmol/L 8-15 [facility] Osmolality of Serum or Plasma by calculation 279 mosm/kg 275-300 [facility] Creatinine/Urea nitrogen [Mass Ratio] in Serum or Plasma 20 [facility] Calcium [Mass/volume] in Serum or Plasma 7.9 mg/dL 8.8-10.2 L [facility] Glomerular filtration rate/1.73 sq M pre dicted among non-blacks [Volume Rate/Area] in Serum or Plasma by Creatinine-based formula (MDRD) 74 mL/min/1.73m2 >60 [facility] Glomerular filtration rate/1.73 sq M pre dicted among blacks [Volume Rate/Area] in Serum or Plasma by Creatinine-based formula (MDRD) 86 mL/min/1.73m2 >60 [facility] ID Date Data Source [id number] 01/26/2021 06:09:03 AM EDT [facility] Name Value Range Interpretation Code Description Data Lesley rce(s) Supporting Document(s) Albumin [Mass/volume] in Serum or Plasma by Bromocresol green (BCG) dye binding method 2.1 g/dL 3.5-5.2 [facility] Bilirubin.total [Mass/volume] in Serum or Plasma 14.9 mg/dL <1.2 H [facility] Bilirubin.direct [Mass/volume] in Serum or Plasma 12.0 mg/dL <0.3 H [facility] Confirmed Alkaline phosphatase [Enzymatic activity/volume] in Serum or Plasma 632 U/L 40-129 H [facility] Aspartate aminotransferase [Enzymatic activity/volume] in Serum or Plasma 125 U/L <40 H [facility] Alanine aminotransferase [Enzymatic activity/volume] in Seru m or Plasma 150 U/L <41 H [facility] Protein [Mass/volume] in Serum or Plasma 5.5 g/dL 6.4-8.3 L [facility] ID Date Data Source [id number] 01/26/2021 12:02:11 AM [facility] Name Value Range Interpretation Code Description Data Lesley rce(s) Supporting Document(s) Bicarbonate [Moles/volume] in Serum 29 mmol/L 22-29 [facility] Chloride [Moles/volume] in Serum or Plasma 93 mmol/L 98-107 L [facility] Creatinine [Mass/volume] in Serum or Plasma 0.97 mg/dL 0.70-1.20 [facility] Icteric Glucose [Mass/volume] in Serum or Plasma 122 mg/dL 70-140 [facility] Potassium [Moles/volume] in Serum or Plasma 3.4 mmol/L 3.4-5.1 [facility] Sodium [Moles/volume] in Serum or Plasma 132 mmol/L 136-145 L [facility] Urea nitrogen [Mass/volume] in Serum or Plasma 21 mg/dL 8-23 [facility] Anion gap 3 in Serum or Plasma 10 mmol/L 8-15 [facility] Osmolality of Serum or Plasma by calculation 278 mosm/kg 275-300 [facility] Creatinine/Urea nitrogen [Mass Ratio] in Serum or Plasma 22 [facility] Calcium [Mass/volume] in Serum or Plasma 7.9 mg/dL 8.8-10.2 L [facility] Glomerular filtration rate/1.73 sq M pre dicted among non-blacks [Volume Rate/Area] in Serum or Plasma by Creatinine-based formula (MDRD) 84 mL/min/1.73m2 >60 [facility] Glomerular filtration rate/1.73 sq M pre dicted among blacks [Volume Rate/Area] in Serum or Plasma by Creatinine-based formula (MDRD) >60 [facility] ID Date Data Source [id number] 01/26/2021 12:02:11 AM EDT [facility] Name Value Range Interpretation Code Description Data Lesley rce(s) Supporting Document(s) Magnesium [Mass/volume] in Serum or Plasma 2.2 mg/dL 1.6-2.4 [facility] ID Date Data Source [id number] 01/26/2021 12:02:11 AM [facility] Name Value Range Interpretation Code Description Data Lesley rce(s) Supporting Document(s) Phosphate [Mass/volume] in Serum or Plasma 2.6 mg/dL 2.5-4.5 [facility] ID Date Data Source [id number] 01/25/2021 11:54:10 PM EDT [facility] Name Value Range Interpretation Code Description Data Lesley rce(s) Supporting Document(s) Lactate [Moles/volume] in Serum or Plasma 1.8 mmol/l 0.5-2.2 [facility] ID Date Data Source [id number] 01/28/2021 11:43:33 AM [facility] Service Cmnt XXX-Imp : HEPATICGram Stn X XX : 4+WBC'S Seen.No organisms seenMicroorganism XXX Cult : 3+Pseudomonas aeruginosaATTENTION This species is always resistant to aminopenicillins, ampicillin-sulbactam, amoxicillin- clavulanic acid, first-generation cephalosporins, cefuroxime, cephamycins, cefotaxime, ceftriaxone, ertapenem, tetracyclines, trimethoprim, trimethoprim- sulfamethoxazole, and chloramphenicol. Name Value Range Interpretation Code Description Data Lesley rce(s) Supporting Document(s) ID Date Data Source [id number] 01/29/2021 05:06:24 AM [facility] Name Value Range Interpretation Code Description Data Lesley rce(s) Supporting Document(s) Fibrosis score 0.97 0.00-0.21 H [facility] Fibrosis stage [facility] (NOTE) F4 - Cirrhosis Necroinflammatory activity score 0.90 0.00-0.17 H [facility] Necroinflammatory activity grade [facility] (NOTE)RESULT:A3-Severe activity Jtjac-3-Axwomxurjdpju [Mass/volume] in Serum or Plasma 237 mg/dL 110 -276 [facility] Haptoglobin [Mass/volume] in Serum or Plasma 334 mg/dL 32-363 [facility] Apolipoprotein A-I [Mass/volume] in Serum or Plasma 24 mg/dL 101-17 8 L [facility] Bilirubin.total [Mass/volume] in Serum or Plasma 15.2 mg/dL 0.0-1.2 H [facility] 6I ALREADY AWARE OF PATIENT'S HIGH TOTAL BILIRUBIN Gamma glutamyl transferase [Enzymatic activity/volume] in Serum or Plasma 116 IU/L 0-65 H [facility] Alanine aminotransferase [Enzymatic acti vity/volume] in Serum or Plasma by With P-5'-P 171 IU/L 0-55 [facility] Comment(NOTE)Quantitative results of 6 b iochemical tests are analyzed usinga computational algorithm to provide a quantitative surrogatemarker (0.0-1.0) for liver fibrosis (METAVIR F0-F4) and fornecroinflammatory activity (METAVIR A0- A3).Comment(NOTE) <0.21 = Stage F0 - No fibrosis0.21 - 0.27 = Stage F0 - F10.27 - 0.31 = Stage F1 - Portal fibrosis0.31 - 0.48 = Stage F1 - F20.48 - 0.58 = Stage F2 - Bridging fibrosis with few septa0.58 - 0.72 = Stage F3 - Bridging fibrosis with many septa0.72 - 0.74 = Stage F3 - F4 >0.74 = Stage F4 - Cirrhosis Reference lab test results [facility] (NOTE) <0.17 = Grade A0 - No Activit y0.17 - 0.29 = Grade A0 - A10.29 - 0.36 = Grade A1 - Minimal activity0.36 - 0.52 = Grade A1 - A20.52 - 0.60 = Grade A2 - Moderate activity0.60 - 0.62 = Grade A2 - A3 >0.62 = Grade A3 - Severe activityComment(NOTE)The negative predictive value of a Fibrotest score <0.31 (absence ofclinically significant fibrosis) was 85% when compared to liverbiopsy in 1,270 HCV infected patients with a 38% prevalence ofsignificant liver fibrosis (F2, 3 or 4). The positive predictivevalue of a Fibro-test score >0.48 (F2, 3, 4) was 61% in that samepatient cohort. HCV FibroSURE is not recommended in patients withGilbert Disease, acute hemolysis (e.g. HCV ribavirin therapy mediatedhemolysis) acute hepa-titis of the liver, extra-hepatic cholestasis,transplant patients, and/or renal insufficiency patients. Any of these clinical situations may lead to inaccurate quantitativepredictions of fibrosis and necroinflammatory activity in the liver.Comment(NOTE)This test was developed and its performance characteristicsdetermined by [employer]. It has not been cleared or approved by theFood and Drug Administration. The FDA has determined that suchclearance or approval is not necessary.For questions regarding this report please contact customer serviceat .Performed At: [facility] [id number] Sanjai MD Ph:[phone] ID Date Data Source [id number] 01/25/2021 03:00:11 PM EDT [facility] CT ABDOMEN PELVIS WITH AND WITHOUT CONTR AST [id number] RESULTInterpreted by:Carl Cano MDINDICATION: 65-year-old male transferred from [facility] for MRCP. History of cholangitis in the setting of known cholecystectomy and gastric bypass.TECHNIQUE: Multidetector row helical CT of the abdomen and pelvis was performed following intravenous administration of 100 mL of Omnipaque-300. Oral dilute Omnipaque solution was administered. Coronal and sagittal reformations were obtained. Automated dose lowering techniques and/or adjustment according to patient size were utilized for this exam.C OMPARISON: HIDA scan dated 01/21/2021, CT abdomen dated 01/20/2021.FINDINGS: LUNGS AND MEDIASTINUM: There are airspace opacities throughout the lower lobes, right greater than left as well as interstitial thickening, particularly within the visualized right middle lobe and right lower lobe. A small right pleural effusion is likely present. The heart is enlarged. No pneumothorax.LIVER AND BILIARY TREE: The liver measures 21 cm in the craniocaudal dimension. There are new ill-defined areas of hypoattenuation throughout the liver parenchyma, particularly within the left hepatic lobe which demonstrate no arterial enhancement and mild peripheral delayed enhancement, most consistent with dilated intrahepatic biliary system. There is a new hypodense lesion within the caudate lobe as well. There is no extrahepatic biliary ductal dilatation.The common hepatic duct is mildly prominent at 8 mm in diameter. There is a focal hyperdensity at the midsegment of the common hepatic duct best seen on image 22 series 6, which may represent a small biliary stone.GALLBLADDER : Status post cholecystectomy.SPLEEN: The spleen measures 15 cm in the craniocaudal dimension. No focal lesions.PANCREAS: Mild fatty atrophy of the pancreatic head. No pancreatic duct dilatation.ADRENALS: Unremarkable bilaterally.KIDNEYS/URETERS: Scattered hypodensities throughout the kidneys are too small to characterize. There is nonspecific perinephric fat stranding bilaterally. Normal in size and configuration without enhancing parenchymal lesions. No hydroureteronephrosis or renal calculi. STOMACH: Patient status post gastric bypass surgery with linear suture material present in the left upper quadrant.BOWEL: Small bowel is non- dilated. Large bowel is non-dilated. Small amount of stool throughout the colon. Scattered diverticula are present throughout the descending and sigmoid colon. Appendix is seen and is unremarkable.VESSELS: Circumferential atherosclerotic plaque is present throughout the abdominal aorta without evidence of dissection or aneurysm. On the delayed images, there appears to be a eccentric filling defects throughout the IVC, into the intrahepatic IVC and the inferior cavoatrial junction. Caudally, this eccentric filling defect extends into the right common iliac vein, which is not opacified. The left iliac vein is appropriately opacified. This is likely artifactual due to injection via the left femoral catheter.LYMPH NODES: No pathologically enlarged lymph nodes.BLADDER: Bladder is collapsed, Grey catheter, limiting evaluation.REPRODUCTIVE ORGANS: Prostate is small. Seminal vesicles are symmetric bilaterally.BODY WALL: Bilateral fat-containing inguinal hernias, and a small umbilical hernia is present.PERITONEUM: No significant free fluid or free air.BONES/MUSCULATURE: Multilevel degenerative changes of the axial skeleton with anterior steatosis and endplate sclerosis of the lumbar spine. There is disc vacuum phenomenon at L3-L4 as well as bilateral facet arthropathy.IMPRESSION:1. Ill-defined hypodensities in the liver, particularly in the left hepatic lobe, or concerning for abscesses given the clinical picture of sepsis. Alternatively, dilated intrahepatic bile ducts can be considered. 2. A punctate hyperdensity in the proximal common bile duct may represent an obstructive stone. Further evaluation with a right upper quadrant ultrasound may be considered.3. Interstitial thickening and airspace opacities throughout the visualized lungs, right greater than left, are likely infectious in etiology, with an underlying component of fluid overload.4. Hepatosplenomegaly.5. Diverticulosis without evidence of diverticulitis.6. Other chronic findings as described above.Critical findings were discussed with Dr. Puga by Dr. Marsh on 01/25/2021 2:32 PM.This document has been electronically signed by Federico Huffman MD on 01/25/2021 2:57 PM Name Value Range Interpretation Code Description Data Lesley rce(s) Supporting Document(s) ID Date Data Source [id number] [facility] Interpretation Code Description Data Lesley rce(s) Supporting Document(s) Lactate [Moles/volume] in Serum or Plasma 3.9 mmol/l 0.5-2.2 [facility] Results called to and read back by JULIA SMILEY [id number] ID Date Data Source [id number] 01/25/2021 11:47:07 AM [facility] Name Value Range Interpretation Code Description Data Lesley rce(s) Supporting Document(s) [facility] LSTDVl5xQvXFZaSpp9OwFcErVLPiTK3awwt4W6G6vWQxI5BovPVai1peH2OhR4ClECViMASMGO0ZwNUy jb2 [file] lRq5msjk9rTMOHFz6c9X77mJ/xf/suspension cord tier//hf/yjFvfwR [file] wLtqXFb4ZbTgt6ajqmis6LprfkowHTnyrgkhlN/oyr OSfSfac7WAs32stHkvl3iop24yQfCyq5/wA9bLxpcTcnif8LC1hhrrxZfigvV5+N6keTsef/A8yFy35C gEy0x3Nh93LvyrL4xxsN7YVdP/ZvKZkQd5OJxSYIeQaXeZ3uk7wIVQIDHQIUFAQYubXoruGQUqAljfBR ECqeIH7MS9UkEbPUuksNfqfqlh+m+hNeI8u9BJaKum pgqg+m+tOsA0g2OAkHzbyovQ+W+aKeF2a6YU6FCRoBd1HZ2XLQ8ZYyWDXEOQ9sriyd0f+T9/VGCbD/PD kwekIv0Vkdqi6BPtcD+3x8Po7QL9SaapEV5UbLHeMq0HalSeX8ev9i8OGxZ4uHd/YmorDZ/AOs4lmYSs vXg1cOt3oy1T4svu4Jht6XK4Mcpo3RFCwv41+eBrvL n5I45OA94bHeY+3gibl7/C2bbxQknkaEmhRsHzA69ohnQ+A32AA0O/LKnhpLJo8e8f8hl/vNYmA/+long term [file] 6uv3b7/18C1em572+9TC3582D/0Hb60Kcj/n47cff/bVh3f//PHb7z+/Rfrha67685t223/V5PtcU593 Jn3J95753j7a+D089U2eyfNo65/fvMbi/Zf//NOfeVva+2f/8qv3H9++/Uoa1490xx1Sqvb5t5vom/ma sjl/ynhNn3/7K7k4oO+u9u37D//78nKqU4VxFENj/u rdx3/+DbZqCan4wf/5T//x+7/88cd/f/uf//vtN7//wx9++5e//PjbP/zj21e//dPvf/zD27/9t7L+7e /f/vynt/dykk8hO1E+uPKP00lz9we/yzFmYng4x7/8+X/yakotfJ3OW/5H77pao6aPwe9/+h0E6YywYt 5/xw4iizM8f/LQ9v3X+wyOBzdwUqu4Tw3ulk3bh/Pb 3lIjeiJjlv6//gxBy2T7t+zFl1tZg/gt2y8IBm/U1IrI4F9btS7r/4NDmqOsf/Wy/Hwzf/Gdjq03+Ell KXr/jqBT+Zsf//Rf//T2l9/+14+Pw7+gwRsaBd0/+qM+G/7c6u6xq4lZ8Gua0n2/p//68S//438nPn2g A/z7VQ20UF8Ppun9HC098/dv//6/Xpf++z//6afH9y 57Pzk+DnF0v/43677//p3o1+3RS/1lxy44GZg7il0pLuLO5E/mBAlyd6D5D4OzljRO+iCfV7dranqsX4 /ffvv//Piff/1L0MNyG/vhA3w71b2i5zNAfV3T//2Xf/v7n/t5WgI4k/3D4/Huh/bL3/6v3/32P3//2z /68V2m2bS//k8//f95/az/4X/+9X/MCZ8133//+MWc LyD1k5/E/S136527MP4imqqFuEvl/sHnH3/3f/5i8622YhRT/nht/xP5HjeU4/4mj94h6a6/6x79Qkvg IdgSpbd1m30bS4Amx3X9+4YA//8/uQ0+h5u1Jhq46//bs8mq1mz/dFVyy0ppq05X94/rBD/7b+9fQllv 77/6/LBYwMe23O/60eh7g18Qs0XuR2KKx9rqyqELg3 /+/4t48SoINat/RhswrbjkrvZczKFyWL1QIX8gz5NxLoJ0QLZdc1PtMCyrMPe5zMHfWYpwcxGxh8Bjuy rmK7Gyr6McQvDmCLUmEuLuEqu9QUDrSsX5cDCdIgXdUVFwZ3XbIJTsZyG0QqXxKYIUNG5HZDWhtoGbXj AwIFI+KdTaOL8qocdzHUNhm0UwNBbgRYnbEKQmY8Q0 bVojRSUkB9FmlK32QFYxR8LzseM7NFA6OAXhDvAfDOBtwDLgMTPgQRY+UzPjER8ghonoAFIqc3LgNYah GMQ6uI8jSYuHNVUGZWgKBKscOlB7h62ltwEZOLZhLVXyOY1QabQkiYcifpYqfGZyMVT4TxHiSMV1TcPh KTB7QEDICBIlACBiDIChYMZcR3IvdGajIDeQJEWFRP pLDHzrWjJys6L7YDDjmjWWF9AZYBxDRtbbYcLAURYdRjKuQYIjWezwD7I8RtytS2ZqXC7SP6PxNRMaFT RNSFUrwsEyYK3ItnEjyM9jJIzWIWSSXYgTIHshWuD1l64dqqIALPIpSTFfOAwvHNHmXWVqGIClIHBdLT QkUJKyKMTcLQ4FH4PsWOMoLWDVELL0t3EbHOWpaoqo fcrnGb3ixwXdVbp+NjbdSUErf0LoSVwnS4T1uRYvA9QwX0ExJE0VuTUdVOgeGTByOTLaVNZzA037iwRx MT4+RN3na1AbVttxCRDOYCMvYOCeYTJcOEZ6MrSxPIUqDQFyIHHbFkD8CrXnHxFITIEtGKU1CrF0HCCp FYKhEVVoIQbzAVAkSAl3SPA4FIHhMWFgIK5uJmJcGT ZxVtKaDBHnFFHpMUFuuoHGSVXfUTCkPDCjPJM8CGJvUUBmKEhrZSKbXZXoVCS2OYIePKIxVC8cNpZbZO GlEZViTugeKIPcTWMsnlKIGHUiIDPlPDV6GjYoWQDcRLUzUNuuPOAnTHMrZfm8RMIsQUWiAF3jJkAzXR ZfIZP5MRclAJJpWFApezNJWGYwHWKfMORyYhJxBYZy MRBzIZhcGZOwGYFmRrYtJXFsJCWsNE8uMgXmLLNtKHM3DBNeDOOtRELdscUEPCOcUABxHKd6IYVgXZXs WTKrESqkEKCwHYWxESA2OMEuDYEzZB1rOyYdPPVlOGGkAFDlMXAkCXXsjvOQJHUeWEEeYPB1SKDzMCPs SOMzDMkxRAFyIPLvAzs2JNMbGWHtFC1yUuVvDNKjUS U0AXHrYELkMZIaipDRQHZmSQD1NKvoGRLrMAAhEBThEAqqXYZnEBHhYfS3PTQgCMFkXD2iXzOuGWLpVJ Z1ZoYwEEIjTPRkxeWWZLJsGWKkDMB2UrPfSIKsHXHkCFipYSSgXQTsDTErYUZ7CBM4VNFeNmVpRFipWV QWKUuEL2DheaKbAlYMU1uvAj2dKmZtGKKMI7Aef5Vj NSAwIFIKCj4+HpV1QLM3wKHxFmh7YpXbRtqnMEHAFr== ID Date Data Source [id number] 01/25/2021 02:21:08 AM EDT [facility] Name Value Range Interpretation Code Description Data Lesley e(s) Supporting Document(s) Leukocytes [#/volume] in Blood by Automated count 21.4 10*3/uL 4-10 [facility] Erythrocytes [#/volume] in Blood by Automated count 4.50 10*6/uL 4.6- 6.1 L [facility] Hemoglobin [Mass/volume] in Blood 12.7 g/dL 13.5-18 L [facility] Hematocrit [Volume Fraction] of Blood by Automated count 38.1 % 4 1-53 [facility] Erythrocyte mean corpuscular volume [Entitic volume] by Auto mated count 84.7 fL 80-96 [facility] Erythrocyte mean corpuscular hemoglobin [Entitic mass] by Automated count 28.2 pg 27-33 [facility] Erythrocyte mean corpuscular hemoglobin concentration [Mass/volume] by Automated count 33.3 g/dL 32.0-36.0 [facility] width [Ratio] by Automated count 15.7 % 11.5-14.5 [facility] Platelets [#/volume] in Blood by Automated count 175 10*3/uL 150-400 [facility] Differential cell count method - Blood [facility] Neutrophils/100 leukocytes in Blood by Automated count 84 % [facility] Lymphocytes/100 leukocytes in Blood by Automated count 6 % [facility] Monocytes/100 leukocytes in Blood by Automated count 10 % [facility] Eosinophils/100 leukocytes in Blood by Automated count 0 % [facility] Basophils/100 leukocytes in Blood by Automated count 0 % [facility] Neutrophils [#/volume] in Blood by Automated count 17.83 10*3/uL 1.8- 7.0 [facility] Lymphocytes [#/volume] in Blood by Automated count 1.19 10*3/uL 1.2-4 .0 L [facility] Monocytes [#/volume] in Blood by Automated count 2.20 10*3/uL 0-0.8 [facility] Eosinophils [#/volume] in Blood by Automated count 0.06 10*3/uL 0-0.5 [facility] Basophils [#/volume] in Blood by Automated count 0.09 10*3/uL 0-0.2 [facility] Nucleated erythrocytes/100 leukocytes [Ratio] in Blood by Automated count 0 /100{WBCs} 0-0 [facility] ID Date Data Source [id number] 01/25/2021 02:54:53 AM EDT [facility] Name Value Range Interpretation Code Description Data Lesley rce(s) Supporting Document(s) Bicarbonate [Moles/volume] in Serum 28 mmol/L 22-29 [facility] Chloride [Moles/volume] in Serum or Plasma 89 mmol/L 98-107 [facility] Creatinine [Mass/volume] in Serum or Plasma 0.98 mg/dL 0.70-1.20 [facility] Icteric Glucose [Mass/volume] in Serum or Plasma 117 mg/dL 70-140 [facility] Potassium [Moles/volume] in Serum or Plasma 3.2 mmol/L 3.4-5.1 [facility] Sodium [Moles/volume] in Serum or Plasma 128 mmol/L 136-145 [facility] Urea nitrogen [Mass/volume] in Serum or Plasma 17 mg/dL 8-23 [facility] Anion gap 3 in Serum or Plasma 11 mmol/L 8-15 [facility] Osmolality of Serum or Plasma by calculation 268 mosm/kg 275-300 [facility] Creatinine/Urea nitrogen [Mass Ratio] in Serum or Plasma 17 [facility] Calcium [Mass/volume] in Serum or Plasma 8.0 mg/dL 8.8-10.2 L [facility] Glomerular filtration rate/1.73 sq M pre dicted among non-blacks [Volume Rate/Area] in Serum or Plasma by Creatinine-based formula (MDRD) 83 mL/min/1.73m2 >60 [facility] Glomerular filtration rate/1.73 sq M pre dicted among blacks [Volume Rate/Area] in Serum or Plasma by Creatinine-based formula (MDRD) >60 [facility] ID Date Data Source [id number] 01/25/2021 03:35:16 AM [facility] Name Value Range Interpretation Code Description Data Lesley rce(s) Supporting Document(s) Albumin [Mass/volume] in Serum or Plasma by Bromocresol green (BCG) dye binding method 2.3 g/dL 3.5-5.2 [facility] Bilirubin.total [Mass/volume] in Serum or Plasma 13.6 mg/dL <1.2 [facility] Confirmed Bilirubin.direct [Mass/volume] in Serum or Plasma 11.5 mg/dL <0.3 [facility] Confirmed Alkaline phosphatase [Enzymatic activity/volume] in Serum or Plasma 673 U/L 40-129 [facility] Aspartate aminotransferase [Enzymatic activity/volume] in Serum or Plasma 172 U/L <40 [facility] Alanine aminotransferase [Enzymatic activity/volume] in Seru m or Plasma 190 U/L <41 [facility] Protein [Mass/volume] in Serum or Plasma 5.8 g/dL 6.4-8.3 [facility] ID Date Data Source [id number] 01/25/2021 11:52:28 AM [facility] Name Value Range Interpretation Code Description Data Lesley rce(s) Supporting Document(s) Magnesium [Mass/volume] in Serum or Plasma 1.9 mg/dL 1.6-2.4 [facility] ID Date Data Source [id number] 01/25/2021 11:52:28 AM [facility] Name Value Range Interpretation Code Description Data Lesley rce(s) Supporting Document(s) Phosphate [Mass/volume] in Serum or Plasma 2.5 mg/dL 2.5-4.5 [facility] ID Date Data Source [id number] 01/24/2021 04:32:54 AM [facility] Value Range Interpretation Code Description Data Lesley rce(s) Supporting Document(s) Bicarbonate [Moles/volume] in Serum 29 mmol/L 22-29 [facility] Chloride [Moles/volume] in Serum or Plasma 92 mmol/L 98-107 [facility] Creatinine [Mass/volume] in Serum or Plasma 0.81 mg/dL 0.70-1.20 [facility] Icteric Glucose [Mass/volume] in Serum or Plasma 102 mg/dL 70-140 [facility] Potassium [Moles/volume] in Serum or Plasma 3.5 mmol/L 3.4-5.1 [facility] Sodium [Moles/volume] in Serum or Plasma 131 mmol/L 136-145 [facility] Urea nitrogen [Mass/volume] in Serum or Plasma 16 mg/dL 8-23 [facility] Anion gap 3 in Serum or Plasma 10 mmol/L 8-15 [facility] Osmolality of Serum or Plasma by calculation 274 mosm/kg 275-300 [facility] Creatinine/Urea nitrogen [Mass Ratio] in Serum or Plasma 20 [facility] Calcium [Mass/volume] in Serum or Plasma 8.3 mg/dL 8.8-10.2 L [facility] Glomerular filtration rate/1.73 sq M pre dicted among non-blacks [Volume Rate/Area] in Serum or Plasma by Creatinine-based formula (MDRD) 90 mL/min/1.73m2 >60 [facility] Glomerular filtration rate/1.73 sq M pre dicted among blacks [Volume Rate/Area] in Serum or Plasma by Creatinine-based formula (MDRD) >60 [facility] ID Date Data Source [id number] 01/24/2021 04:49:04 AM EDT [facility] Name Value Range Interpretation Code Description Data Lesley rce(s) Supporting Document(s) Albumin [Mass/volume] in Serum or Plasma by Bromocresol green (BCG) dye binding method 2.8 g/dL 3.5-5.2 L [facility] Bilirubin.total [Mass/volume] in Serum or Plasma 10.4 mg/dL <1.2 [facility] Confirmed Bilirubin.direct [Mass/volume] in Serum or Plasma 8.5 mg/dL <0.3 [facility] Alkaline phosphatase [Enzymatic activity/volume] in Serum or Plasma 631 U/L 40-129 [facility] Aspartate aminotransferase [Enzymatic activity/volume] in Serum or Plasma 188 U/L <40 [facility] Alanine aminotransferase [Enzymatic activity/volume] in Seru m or Plasma 208 U/L <41 [facility] Protein [Mass/volume] in Serum or Plasma 6.2 g/dL 6.4-8.3 [facility] ID Date Data Source [id number] 01/24/2021 09:04:55 AM EDT [facility] Value Range Interpretation Code Description Data Lesley rce(s) Supporting Document(s) Leukocytes [#/volume] in Blood by Automated count 15.8 10*3/uL 4-10 [facility] Erythrocytes [#/volume] in Blood by Automated count 4.51 10*6/uL 4.6- 6.1 [facility] Hemoglobin [Mass/volume] in Blood 12.7 g/dL 13.5-18 [facility] Hematocrit [Volume Fraction] of Blood by Automated count 39.3 % 4 1-53 [facility] Erythrocyte mean corpuscular volume [Entitic volume] by Auto mated count 87.0 fL 80-96 [facility] Erythrocyte mean corpuscular hemoglobin [Entitic mass] by Automated count 28.1 pg 27-33 [facility] Erythrocyte mean corpuscular hemoglobin concentration [Mass/volume] by Automated count 32.3 g/dL 32.0-36.0 [facility] Erythrocyte distribution width [Ratio] by Automated count 16.5 % 11.5-14.5 [facility] Platelets [#/volume] in Blood by Automated count 173 10*3/uL 150-400 [facility] Differential cell count method - Blood [facility] Neutrophils/100 leukocytes in Blood by Automated count 82 % [facility] Lymphocytes/100 leukocytes in Blood by Automated count 7 % [facility] Monocytes/100 leukocytes in Blood by Automated count 11 % [facility] Eosinophils/100 leukocytes in Blood by Automated count 0 % [facility] Basophils/100 leukocytes in Blood by Automated count 0 % [facility] Neutrophils [#/volume] in Blood by Automated count 12.99 10*3/uL 1.8- 7.0 [facility] Lymphocytes [#/volume] in Blood by Automated count 1.04 10*3/uL 1.2-4 .0 L [facility] Monocytes [#/volume] in Blood by Automated count 1.67 10*3/uL 0-0.8 [facility] Eosinophils [#/volume] in Blood by Automated count 0.05 10*3/uL 0-0.5 [facility] Basophils [#/volume] in Blood by Automated count 0.04 10*3/uL 0-0.2 [facility] Nucleated erythrocytes/100 leukocytes [Ratio] in Blood by Automated count 0 /100{WBCs} 0-0 [facility] ID Date Data Source [id number] 01/24/2021 01:52:52 AM EDT [facility] Name Value Range Interpretation Code Description Data Lesley rce(s) Supporting Document(s) ED Provider Note [facility] EIPNVi0mSbAGUzEj61/AYZasCPRkv3KfKYhgFXu2YRtcSHIkI8EwXFO6jU7fSXO2ZElOFwLtZzHnOWF2 lbm [file] sYppaMSOERX4qckz8zXg87btqxqOmdjztO4rCXsrvoIs6hmaIfDivYhaxeFNfurkkmIi9zzJyNdvhuyk GqzOPmmg1N8F8OF7+zirECkW3dZ+nc/sYLFoktOhu5a0s5kK39p9cMBiVwxjPadhl3eiJTBbsYJPqM5c U8cx0LRugxl956oR5aKQo/Rvgz7/DFhwxrCuUE4X61 GXq9nLvD/EL/+4bmzLdwmn9ouUxJmOzN4ixxkW6Ty4/+7Z8fS1/pCPZ27eO01NRb+O7g8gZdpDuj4+DEL VALLE [file] dwwGZI9PVDI4xZ5FjE1NJEBomJDT+M5x+f2arvFaZpe9H9H/MvnLoJFl34K3WnvJaVBQClR/supervisor purification/WIhq [file] QwNGM+ME1oYEk+Um0Xz3BhdrW8ptKuOFi0UZS7Wy9XAZZLR1TCAr== ID Date Data Source [id number] 01/23/2021 12:15:43 PM [facility] Name Value Range Interpretation Code Description Data Lesley rce(s) Supporting Document(s) Lactate [Moles/volume] in Serum or Plasma 2.0 mmol/l 0.5-2.2 [facility] ID Date Data Source [id number] 01/23/2021 04:19:25 AM [facility] Name Value Range Interpretation Code Description Data Lesley rce(s) Supporting Document(s) Leukocytes [#/volume] in Blood by Automated count 13.5 10*3/uL 4-10 [facility] Erythrocytes [#/volume] in Blood by Automated count 4.46 10*6/uL 4.6- 6.1 L [facility] Hemoglobin [Mass/volume] in Blood 12.6 g/dL 13.5-18 L [facility] Hematocrit [Volume Fraction] of Blood by Automated count 38.4 % 4 1-53 L [facility] Erythrocyte mean corpuscular volume [Entitic volume] by Auto mated count 86.0 fL 80-96 [facility] Erythrocyte mean corpuscular hemoglobin [Entitic mass] by Automated count 28.3 pg 27-33 [facility] Erythrocyte mean corpuscular hemoglobin concentration [Mass/volume] by Automated count 32.9 g/dL 32.0-36.0 [facility] Erythrocyte distribution width [Ratio] by Automated count 16.1 % 11.5-14.5 [facility] Platelets [#/volume] in Blood by Automated count 177 10*3/uL 150-400 [facility] Differential cell count method - Blood [facility] Neutrophils/100 leukocytes in Blood by Automated count 85 % [facility] Lymphocytes/100 leukocytes in Blood by Automated count 5 % [facility] Monocytes/100 leukocytes in Blood by Automated count 9 % [facility] Eosinophils/100 leukocytes in Blood by Automated count 1 % [facility] Basophils/100 leukocytes in Blood by Automated count 0 % [facility] Neutrophils [#/volume] in Blood by Automated count 11.34 10*3/uL 1.8- 7.0 [facility] Lymphocytes [#/volume] in Blood by Automated count 0.70 10*3/uL 1.2-4 .0 L [facility] Monocytes [#/volume] in Blood by Automated count 1.27 10*3/uL 0-0.8 [facility] Eosinophils [#/volume] in Blood by Automated count 0.12 10*3/uL 0-0.5 [facility] Basophils [#/volume] in Blood by Automated count 0.05 10*3/uL 0-0.2 [facility] Nucleated erythrocytes/100 leukocytes [Ratio] in Blood by Automated count 0 /100{WBCs} 0-0 [facility] ID Date Data Source [id number] 01/23/2021 04:46:54 AM T [facility] Name Value Range Interpretation Code Description Data Lesley rce(s) Supporting Document(s) Albumin [Mass/volume] in Serum or Plasma by Bromocresol green (BCG) dye binding method 2.9 g/dL 3.5-5.2 L [facility] Bilirubin.total [Mass/volume] in Serum or Plasma 7.0 mg/dL <1.2 [facility] Bilirubin.direct [Mass/volume] in Serum or Plasma 5.8 mg/dL <0.3 [facility] Alkaline phosphatase [Enzymatic activity/volume] in Serum or Plasma 498 U/L 40-129 [facility] Aspartate aminotransferase [Enzymatic activity/volume] in Serum or Plasma 153 U/L <40 [facility] Alanine aminotransferase [Enzymatic activity/volume] in Seru m or Plasma 194 U/L <41 [facility] Protein [Mass/volume] in Serum or Plasma 6.5 g/dL 6.4-8.3 [facility] ID Date Data Source [id number] 01/23/2021 04:46:54 AM EDT [facility] Name Value Range Interpretation Code Description Data Lesley rce(s) Supporting Document(s) Bicarbonate [Moles/volume] in Serum 31 mmol/L 22-29 [facility] Chloride [Moles/volume] in Serum or Plasma 99 mmol/L 98-107 [facility] Creatinine [Mass/volume] in Serum or Plasma 0.62 mg/dL 0.70-1.20 L [facility] Icteric Glucose [Mass/volume] in Serum or Plasma 106 mg/dL 70-140 [facility] Potassium [Moles/volume] in Serum or Plasma 3.5 mmol/L 3.4-5.1 [facility] Sodium [Moles/volume] in Serum or Plasma 137 mmol/L 136-145 [facility] Urea nitrogen [Mass/volume] in Serum or Plasma 16 mg/dL 8-23 [facility] Anion gap 3 in Serum or Plasma 8 mmol/L 8-15 [facility] Osmolality of Serum or Plasma by calculation 286 mosm/kg 275-300 [facility] Creatinine/Urea nitrogen [Mass Ratio] in Serum or Plasma 26 [facility] Calcium [Mass/volume] in Serum or Plasma 8.8 mg/dL 8.8-10.2 [facility] Glomerular filtration rate/1.73 sq M pre dicted among non-blacks [Volume Rate/Area] in Serum or Plasma by Creatinine-based formula (MDRD) >6 0 [facility] Glomerular filtration rate/1.73 sq M pre dicted among blacks [Volume Rate/Area] in Serum or Plasma by Creatinine-based formula (MDRD) >60 [facility] ID Date Data Source [id number] 01/22/2021 05:44:17 PM EDT [facility] Name Value Range Interpretation Code Description Data Lesley rce(s) Supporting Document(s) [facility] LUNRFl9eDiFTIpZt69/FBYeqZWNhd7KjCZfjYIs0XEypVWFmG4JoDPX4qZ2mLYG3PBbUXcRcOdHyOLP7 lbm [file] 40WTl/zsha+LILIA+xXE65Gy0DOSh9rg5GFVpwgUWlmc/PP3vtJBIZxTeIGW7kmEopO7JIE2qc5ZvZSw1RR Flj3AbGCpqXXq1WDbqVNYjS0J3yHVwVSRhFO2VVZMhYF9IMOYpbzLvPuIpHSZKEvHuQTVzXpRfu1RdX8 CuEWRqTPDRLUsxDWMnS21dJPhfQi55EEsmVDTtBsKt WVl8Pr0NTxXlJWJsJ81euOGoxHGkUDXcZBZCDlTjAUVpI1SqnTYrDBkgS3HrS3LdFP6zxLYzIG7wqWDx Q2NgB5LgfvbiDWQHEjShBOEtDPfuTXErZlKaVIktUPD+Qt9JFLG+Cv7IOP7bo4EpKMkpPQYrZM1pnj6E AGM7ZJ8LxAa6QJHzF3HxORPpPBFuk1DvWS9SWC4smJ vaXtr2CC5+NVbxTDX7gvNkiF4VOXWqTyml69cBvV2a/zScm9RYQ2l4nnfQGQmeutNNmnb4UY8J8gAnuv X3ZRhdcCZ29zGeFU0FcBJqFmiaiTxXOtMrp7y8Y5MfxFxe+i3D4gYRmE/31J/4RhmA83Hn/q2bVcraGR x5tEojtj165DnyTM6VM2qs1gKIv+FgkHyeYh3Wd6ew +cfDs/t5dhxRhR4zuycSnDd0dus+FACILITIES OFFICER/lBEPaFvljN4wma55J6tZJ/svW16zS5D198cKf1J++Y4lqpV3J [file] AgICAgICAgICAgICAgICAgICAgICAgICAgICAgICAg JABeQDAdRJKlZGXiWRIwADVbCQAuDXMbSSEpUPObKUToZD7VNSMjRUCgDWItQYJgWFUbJOBfBRTpMXXm ICAgICAgICAgICAgICAgICAgICAgICAgICAgICAgICAgICAgICAgICAgICAgICAgICAgICAgICAgICAg ZMCtCFAlCYWaMFXgFBOzHD8FEHKcTHLtSJPkANWiSW AgICAgICAgICAgICAgICAgICAgICAgICAgICAgICAgICAgICAgICAgICAgICAgICAgICAgICAgICAgIC PeSMDjWRXwOJWtAVXuNNOoFLFzSRQiLMOjPX6DSPOvGTRmSYNcIRPkBFWdGRVpRDUwTDWbNHKkLEHjWM AgICAgICAgICAgICAgICAgICAgICAgICAgICAgICAg LGKiNXTkWMThIEYyOQPpJFMbHNPxISFoJZHdGAYoNDIwUFPpVX0BTBItFYQkMTQpNSVpFRDqGEOfXGFc ICAgICAgICAgICAgICAgICAgICAgICAgICAgICAgICAgICAgICAgICAgICAgICAgICAgICAgICAgICAg NZDgVPVwIBSuSURnOJBpHNWhCX7KHSHyAGAhETZwZY AgICAgICAgICAgICAgICAgICAgICAgICAgICAgICAgICAgICAgICAgICAgICAgICAgICAgICAgICAgIC DnEXFzXLOpPFUpHHEyHRUcGLUoVBCxVMNoBNOqLC9RIEXsICAvUJFvUCWmTLVzJFGrWHCqNAFfZRAgYI AgICAgICAgICAgICAgICAgICAgICAgICAgICAgICAg EZGuPVBzCKVpAOFjSQRmDKJdMZQwVQGjMXZvYJMbPLZyYDPuFLJpSO1PHLWmEKVuWGQgXJJgQVNpEABz ICAgICAgICAgICAgICAgICAgICAgICAgICAgICAgICAgICAgICAgICAgICAgICAgICAgICAgICAgICAg FBJuOJCnTQAyXFGxKARhTZLjIRVxUY3VTZWdCVVjKD AgICAgICAgICAgICAgICAgICAgICAgICAgICAgICAgICAgICAgICAgICAgICAgICAgICAgICAgICAgIC NdKBVnZWScDUSkAOBjTUSwIIJuIARqRAVuXAYtVGJoDF2WALQrNEGfWFDeMHIgCQLnSEHpZKHvEWBbHE AgICAgICAgICAgICAgICAgICAgICAgICAgICAgICAg WHVbGBGrUXYaOIUgPTAwVGQwXLPmYBAzZDWwFDPgZJScRIBwLHFdVKBeKJ4PFT68rFCud5O1KGWcLM6l dyc/Af9JABftpaKmxMNyZN4HVdBxBN9ssj8OFmDgMJ1qmw6WLDeBEnUhB8A7kXJcMDQhZQATOqHeX25s XStuTu42RSqbXHRyKoJhMIk0Gr9MQvPsG2sbLSBqEn X4UPIvZjO3GOMrXrK4TMJpTlYiBIMlQADnZMWhNDDBMW4XVkHlK2JqvP92LSKZOi9+DQplbmRvYmoNCj GnPGCnf6QhHUm2DG3FGVZnWkyse7BcTsSqLUZWCYqbUB1POBX1UQLhWVNoSj0DPNSyQ090qiSkIN8VDn 4ZWmMqDN0mkt8KJmXqWHOoXmsUZjf5PYqyUN8FnUJq JKxSg56hnJy1tlOrgLHGkOAkpRLgeKXFtl6fTUkgGsabRJAgRSKtRD1hVv2aOQLaUAM2CoIyYUDGMB9B ZVTeUXQscHQfJCMyWRQYPV1WKWjtDJQ5PTGdhxIqjACcHRviAG4RMXJkqvQaWtHcTULJSNf+Yo2HCA6z m8LwHFqwZkTvSM4hkj9RROiTNqYbT7B1uVQeA6Z4DF otYp4QQUBiAYJmXbzhWAOSXIrnVX8TTS6xdsB4MW3HbWOeVXHiVRTmyOExUDo2G80eyZPuBTifFM2KVK A+Doyle+Tk1FMXQoPTFbDDZyRsYyVIKNYnNyQ5RyA8MVy6IdO2UpTB99gNduwoVdYHadAX0CTY3vGTKmZH FUKE1DrYHenA0cwgNdXOTlQCEZGbCpQ53nhMCgQLAd NYG1XDWvFe6HPJQsE6MwpfIqqZbzccVpKQMaCZJXBS1WRLqyuwRazRJksNfqAJ25sBhmHY5HGw3DEpOt RG6szv7AaBPsQy3TPHJiCc4ZOWYfRRShWWKsNII1HEMuYrZkHHzgFTUdMCGwVLX1IRQgONNpLK5ISuDb QRNaFnIqWrgcBOMjFBBdwq2LGNOpYLZlEmZfSAKqLM KwQISeGMibPVNqKQPcJEF9EBTtFNOaJK5VFmQpQEFvFGM6MMVpJREiTRSniv0RHFCoCDMiSed5CXOqXW ZpVTUjGAsnOWQzMLS4WWJ8AUJrAMWwXS4XIeRtKAObPNY4CjKoLMKwHOIfzi7JABTeVXCzGEq8KdRgEA SjZXIbQGreEFBdXQI3InWaXNEkQJBvAH6OIrNeXZYk CUSeYxDeLNOaCWTilx5YBMJjHLXqOqB5IdHzJYExVWZbXNlmVWXuNEI7QEU4EFBlLMYyYW3ZXlYcTXIn CEJtKeWjDRSlPYTtmm5TBKMnNWAkRTy6HKWqZERlFDQdFEguBMFnQNQ7RSp6KNJbNXTsNT8ZHkOrZYGo JTRoOlBrQNEtSZXalu9CWMNxZQNaQuAfUNAkBYFvLC BuGIpbSVRhGVO4EXMlREFgUIPwZB9AZjPpYLBaTIo0XtKmHUNiGCJgmm1FRWQzUMPbMHC5CCScQNXxVE HwUUvfVMQxFJI9GKc8GQVrFOYqCO6JOzCgDLMxSKvhAbGrTHYjQYJaxf1BQQHjUWLlEIV0FXQpLAXaJC UgDWfpVJZoYWPiVyWqOYGuRONzPE7EQsNiHFYwAyU8 WzObXZRlOYFqjr4WTQVdHZCaDWPcHTOaFLUcQLAoJVisSVQhBLXvHqV0ALNhHQImSC7FZbGdHUJhZoA8 TzGyHHZyPUGile5PHQYmSSJxDiQtMECaEBNzGPDwQYcaJYNzNGLbPiB9PSCrYQHtOZ2AQyTkLCScIzE2 ACPuIFIaWKTdaz1XsUFtqFycod9GPTvTRx9OuMgsYA UuMNmjCg4euBZdSiTsURGTBm9FzuLfCULyLNHERTwdCWIpWXPwLAvyOYW8FjJnYVLaVJB1Kia9WEEpJM txNCJkQEM7EhO7BmB4UuKiKCS1ONJoDiN1YzBaAaorRvJdH6R3CWV3Ytu+LF3bQOq+Fw1Hk2WuegO0xq UrNEsxQpC5YP4QJZQKE8EZXu== ID Date Data Source [id number] 01/26/2021 09:09:30 AM EDT [facility] Service Cmnt XXX-Imp : R HANDMicroorgani sm XXX Cult : Smear:Gram negative rodsin aerobic broth.Pseudomonas aeruginosaATTENTION This species is always resistant to aminopenicillins, ampicillin-sulbactam, amoxicillin-clavulanic acid, first-generation cephalosporins, cefuroxime, cephamycins, cefotaxime, ceftriaxone, ertapenem, tetracyclines, trimethoprim, trimethoprim- sulfamethoxazole, and chloramphenicol.in aerobic broth. Name Value Range Interpretation Code Description Data Lesley rce(s) Supporting Document(s) ID Date Data Source [id number] 01/22/2021 05:25:43 PM [facility] Name Value Range Interpretation Code Description Data Lesley rce(s) Supporting Document(s) Glucose [Mass/volume] in Capillary blood by Glucometer 126 mg/dL 70- 140 [facility] ID Date Data Source [id number] 01/22/2021 01:10:03 PM [facility] [place] HEPATOBILIARY IMAGING HIDA [id number] RESULTInterpreted by:Jayy Solis MDINDICATION: elevated bilirubin. pt is s/p cholecystectomyCOMPARISON: CT abdomen pelvis 01/20/2021.TECHNIQUE: -Scan region: Abdomen.-Pre-treatment: None.-Injected dose: 6.4 mCi of Tc-99m labeled Mebrofenin.-Initial dynamic images: 60 minutes.-Post-treatment: None.FINDINGS: The patient is post cholecystectomy.There is diffuse reduced radiotracer uptake on initial dynamic imaging with mild persistence of the blood pool. No evidence of common bile duct or small bowel activity is present on 4 and 24 hour delayed imaging.IMPRESSION:Imaging findings may represent hepatocellular dysfunction or high-grade obstruction.This document has been electronically signed by Nay Goldberg MD on 01/22/2021 1:07 PM Name Value Range Interpretation Code Description Data Lesley rce(s) Supporting Document(s) ID Date Data Source [id number] 01/22/2021 01:07:51 PM [facility] Name Value Range Interpretation Code Description Data Lesley rce(s) Supporting Document(s) Glucose [Mass/volume] in Capillary blood by Glucometer 244 mg/dL 70- 140 H [facility] ID Date Data Source [id number] 01/22/2021 05:51:36 AM [facility] Name Value Range Interpretation Code Description Data Lesley rce(s) Supporting Document(s) Digoxin [Mass/volume] in Serum or Plasma 0.3 ng/ml 0.9-2.0 [facility] ID Date Data Source [id number] 01/22/2021 05:51:36 AM [facility] Name Value Range Interpretation Code Description Data Lesley rce(s) Supporting Document(s) Magnesium [Mass/volume] in Serum or Plasma 2.2 mg/dL 1.6-2.4 [facility] ID Date Data Source [id number] 01/22/2021 05:51:36 AM [facility] Name Value Range Interpretation Code Description Data Lesley rce(s) Supporting Document(s) Phosphate [Mass/volume] in Serum or Plasma 2.2 mg/dL 2.5-4.5 [facility] ID Date Data Source [id number] 01/22/2021 05:22:11 AM [facility] Value Range Interpretation Code Description Data Lesley rce(s) Supporting Document(s) Leukocytes [#/volume] in Blood by Automated count 11.0 10*3/uL 4-10 [facility] Erythrocytes [#/volume] in Blood by Automated count 4.51 10*6/uL 4.6- 6.1 L [facility] Hemoglobin [Mass/volume] in Blood 12.8 g/dL 13.5-18 L [facility] Hematocrit [Volume Fraction] of Blood by Automated count 38.9 % 4 1-53 L [facility] Erythrocyte mean corpuscular volume [Entitic volume] by Auto mated count 86.2 fL 80-96 [facility] Erythrocyte mean corpuscular hemoglobin [Entitic mass] by Automated count 28.3 pg 27-33 [facility] Erythrocyte mean corpuscular hemoglobin concentration [Mass/volume] by Automated count 32.8 g/dL 32.0-36.0 [facility] width [Ratio] by Automated count 16.4 % 11.5-14.5 [facility] Platelets [#/volume] in Blood by Automated count 159 10*3/uL 150-400 [facility] Differential cell count method - Blood [facility] Neutrophils/100 leukocytes in Blood by Automated count 88 % [facility] Lymphocytes/100 leukocytes in Blood by Automated count 4 % [facility] Monocytes/100 leukocytes in Blood by Automated count 8 % [facility] Eosinophils/100 leukocytes in Blood by Automated count 0 % [facility] Basophils/100 leukocytes in Blood by Automated count 0 % [facility] Neutrophils [#/volume] in Blood by Automated count 9.67 10*3/uL 1.8-7 .0 [facility] Lymphocytes [#/volume] in Blood by Automated count 0.45 10*3/uL 1.2-4 .0 L [facility] Monocytes [#/volume] in Blood by Automated count 0.87 10*3/uL 0-0.8 [facility] Eosinophils [#/volume] in Blood by Automated count 0.02 10*3/uL 0-0.5 [facility] Basophils [#/volume] in Blood by Automated count 0.01 10*3/uL 0-0.2 [facility] Nucleated erythrocytes/100 leukocytes [Ratio] in Blood by Automated count 0 /100{WBCs} 0-0 [facility] ID Date Data Source [id number] 01/22/2021 05:41:23 AM [facility] Name Value Range Interpretation Code Description Data Lesley rce(s) Supporting Document(s) Prothrombin time (PT) 15.6 s 12.5-14.9 [facility] INR in Platelet poor plasma by Coagulation assay 1.22 [facility] Routine intensity oral anticoagulation I NR is typically 2.0-3.0. Target INR must be clinically individualized. ID Date Data Source [id number] 01/22/2021 06:12:15 AM [facility] Value Range Interpretation Code Description Data Lesley rce(s) Supporting Document(s) Albumin [Mass/volume] in Serum or Plasma by Bromocresol green (BCG) dye binding method 3.3 g/dL 3.5-5.2 [facility] Bilirubin.total [Mass/volume] in Serum or Plasma 7.2 mg/dL <1.2 [facility] Confirmed Bilirubin.direct [Mass/volume] in Serum or Plasma 6.2 mg/dL <0.3 [facility] Alkaline phosphatase [Enzymatic activity/volume] in Serum or Plasma 353 U/L 40-129 [facility] Aspartate aminotransferase [Enzymatic activity/volume] in Serum or Plasma 81 U/L <40 [facility] Alanine aminotransferase [Enzymatic activity/volume] in Seru m or Plasma 217 U/L <41 [facility] Protein [Mass/volume] in Serum or Plasma 6.9 g/dL 6.4-8.3 [facility] ID Date Data Source [id number] 01/22/2021 06:12:15 AM EDT [facility] Name Value Range Interpretation Code Description Data Lesley rce(s) Supporting Document(s) Bicarbonate [Moles/volume] in Serum 30 mmol/L 22-29 [facility] Chloride [Moles/volume] in Serum or Plasma 103 mmol/L 98-107 [facility] Creatinine [Mass/volume] in Serum or Plasma 0.53 mg/dL 0.70-1.20 L [facility] Icteric Glucose [Mass/volume] in Serum or Plasma 161 mg/dL 70-140 [facility] Potassium [Moles/volume] in Serum or Plasma 4.0 mmol/L 3.4-5.1 [facility] Sodium [Moles/volume] in Serum or Plasma 141 mmol/L 136-145 [facility] Urea nitrogen [Mass/volume] in Serum or Plasma 16 mg/dL 8-23 [facility] Anion gap 3 in Serum or Plasma 8 mmol/L 8-15 [facility] Osmolality of Serum or Plasma by calculation 296 mosm/kg 275-300 [facility] Creatinine/Urea nitrogen [Mass Ratio] in Serum or Plasma 29 [facility] Calcium [Mass/volume] in Serum or Plasma 9.0 mg/dL 8.8-10.2 [facility] Glomerular filtration rate/1.73 sq M pre dicted among non-blacks [Volume Rate/Area] in Serum or Plasma by Creatinine-based formula (MDRD) >6 0 [facility] Glomerular filtration rate/1.73 sq M pre dicted among blacks [Volume Rate/Area] in Serum or Plasma by Creatinine-based formula (MDRD) >60 [facility] ID Date Data Source [id number] 01/22/2021 01:57:32 AM EDT [facility] Name Value Range Interpretation Code Description Data Lesley rce(s) Supporting Document(s) Glucose [Mass/volume] in Capillary blood by Glucometer 125 mg/dL 70- 140 [facility] ID Date Data Source [id number] [facility] Interpretation Code Description Data Lesley rce(s) Supporting Document(s) Glucose [Mass/volume] in Capillary blood by Glucometer 124 mg/dL 70- 140 [facility] ID Date Data Source [id number] 01/21/2021 05:01:12 PM [facility] Name Value Range Interpretation Code Description Data Lesley rce(s) Supporting Document(s) Troponin T.cardiac [Mass/volume] in Serum or Plasma <0.01 [facility] ID Date Data Source [id number] 01/21/2021 03:47:30 PM [facility] US ABDOMEN LIMITED [id number] RESULTInte rpreted by:DANDRE HernándezLINICAL HISTORY:65-year-old male with elevated liver function tests and bacteremia, who presents for initial sonographic evaluation.TECHNIQUE:Multiple real-time sonographic images of the right upper quadrant were obtained.COMPARISON:There are no prior studies available for comparison. FINDINGS:Imaging is limited due to the patient's body habitus and bowel gas.LIVER: The visualized liver is normal in size measuring 138 mm in the longitudinal dimension along the midclavicular line.The visualized liver is mildly increased and echogenicity with a coarse echotexture and a mildly nodular contour. There is no gross evidence of focal lesions or intrahepatic ductal dilatation. GALLBLADDER: The patient is status post cholecystectomy. COMMON DUCT: The common duct is normal in caliber, measuring 4 mm at the level of the hepatic artery. PANCREAS: The pancreas is obscured by bowel gas.RIGHT KIDNEY: The right kidney measures 128 x 64 x 61 mm and the parenchyma measures 12 in thickness. The kidneys poorly visualized and the low-density lesion within the midpole region is not distinctly detectable.The kidney is grossly normal in echogenicity and there is no evidence of hydronephrosis, renal stones or gross solid mass. ADDITIONAL FINDINGS: There is no evidence of free fluid within the visualized abdomen. IMPRESSION:1. There is mild to moderate fatty change of the liver with no gross evidence of biliary obstruction.2. The liver is a nodular contour and coarse echotexture and mild cirrhosis cannot be excluded.3. The patient is status post cholecystectomy.4. The remaining visualized structures are grossly normal.This document has been electronically signed by Zachary Hanson MD on 01/21/2021 3:45 PM Name Value Range Interpretation Code Description Data Lesley rce(s) Supporting Document(s) ID Date Data Source [id number] 01/21/2021 02:48:19 PM EDT [facility] Name Value Range Interpretation Code Description Data Lesley rce(s) Supporting Document(s) Consultation [facility] DBOYPi7qDhZYTdPy66/ZACdaXBOrv2QbQOrxXTx6QZdeVQKjL8NaQUO5iI1jLXP6GDtMVgFuVbOqGHB4 lbm [file] AgICAgICAgICAgICAgICAgICAgICAgICAgICAgICAg ICAgICAgICAgICAgICAgICAgICAgICAgICAgICAgICAgICAgICAgICAgICAgICAgICAgICANCiAgICAg ICAgICAgICAgICAgICAgICAgICAgICAgICAgICAgICAgICAgICAgICAgICAgICAgICAgICAgICAgICAg ICAgICAgICAgICAgICAgICAgICAgICAgICAgICAgIC AgICANCiAgICAgICAgICAgICAgICAgICAgICAgICAgICAgICAgICAgICAgICAgICAgICAgICAgICAgIC AgICAgICAgICAgICAgICAgICAgICAgICAgICAgICAgICAgICAgICAgICAgICANCiAgICAgICAgICAgIC AgICAgICAgICAgICAgICAgICAgICAgICAgICAgICAg ICAgICAgICAgICAgICAgICAgICAgICAgICAgICAgICAgICAgICAgICAgICAgICAgICAgICAgICANCiAg ICAgICAgICAgICAgICAgICAgICAgICAgICAgICAgICAgICAgICAgICAgICAgICAgICAgICAgICAgICAg ICAgICAgICAgICAgICAgICAgICAgICAgICAgICAgIC AgICAgICANCiAgICAgICAgICAgICAgICAgICAgICAgICAgICAgICAgICAgICAgICAgICAgICAgICAgIC AgICAgICAgICAgICAgICAgICAgICAgICAgICAgICAgICAgICAgICAgICAgICAgICANCiAgICAgICAgIC AgICAgICAgICAgICAgICAgICAgICAgICAgICAgICAg ICAgICAgICAgICAgICAgICAgICAgICAgICAgICAgICAgICAgICAgICAgICAgICAgICAgICAgICAgICAN CiAgICAgICAgICAgICAgICAgICAgICAgICAgICAgICAgICAgICAgICAgICAgICAgICAgICAgICAgICAg ICAgICAgICAgICAgICAgICAgICAgICAgICAgICAgIC AgICAgICAgICANCiAgICAgICAgICAgICAgICAgICAgICAgICAgICAgICAgICAgICAgICAgICAgICAgIC AgICAgICAgICAgICAgICAgICAgICAgICAgICAgICAgICAgICAgICAgICAgICAgICAgICANCiAgICAgIC AgICAgICAgICAgICAgICAgICAgICAgICAgICAgICAg ICAgICAgICAgICAgICAgICAgICAgICAgICAgICAgICAgICAgICAgICAgICAgICAgICAgICAgICAgICAg ICANCjw/uEGdW6cbvJBhpbE2T8ldMe3TLq1HQP3ng8LiCAIdSKsgsiRvLjtXUfGxCESiCipLNag0PXar MD9AwXUxI3AbW7PtEGwxNO2ETXUcIJCjiRUcAVGwJM ZyMoD1DKEpQVjwQI8GwONmETioOOAuOBZzApYwMYWiOAOnPSPeTNSuSZJKWNVxJITdYiUvPOjaUE4Wm2 GsgNC3HSh+Qz8JLU0ol3RrSEtwEsOePC8dpb0GKWfJMdYcD7SqgvU3PTO8LNTeXc4BLKYqMSCfsKKeBH VkUKIIEjJtW4JrtP57VFNKEu8+DQplbmRvYmoNCjM0 OWJvt3IbXSc8LM0AATCdRBl3wDPxP77nk0ZkyEBzPaanPbEixLWRqhHaimvcVWDkSMOzXN1bJC5kHNXv PXV1TmN3QWUUDF4AFVDzLJJitHGhRKQtTMQIPW6JOQgoOAO3LNYvmvJayVNfKZexEO6YUBQzfeGwThTh MCBSDQo+Zk8ONI1lt8HlTWgqGJStVQ5xgk3KXKkZTi ZvI2V2eVJmQ9Y0ULizFx4ATBAeMUEvYpZlUOBYLAazUG4TEA2gouY6MQ4XgZQaHEQbSTXaiYNaIQu5T6 0axTSaVLrmDT2TWGH+Doyle+Ap3KITHnMDCoLMGiWtBrQKRKAjOlA4KnM0TWj7LwS2XmOD03eYkipnJsRY ctZI8IZP6uREQeLFQJUO8QzXQbrM6avrHdGpBtXOXE MbQaG60zaXWxEDYgQESkJOVzDk5BRPGdS8BmfgUygPdeygMuDGQpGAHYHT5BYUnglyDmzTBozRbiQO31 pEgsOI8AOx1ATzBvPG3opo9RpFWwWm0LZABmSb6CDXSxETCoODBlTPO0NWLuQoWjYYssJVIoHCIrTQI9 VQSpJKCkZF1SDjKrDKZjBhBfUOsgNESbUHFsaw8KBT IcDKNlPQh3OVUiISYcBQFeLPppTCLwJJGnCJS1USAvLBAbLY5JEeUyEIMpYKLhXTomVFTgUHHhnu9OBQ HoOXMgCDOvCmLzFBTyVNXtFYynQNEdXOM4XMQ1GSAmUPUkGA8PBsUvWRUxVKa7NDqyKWIlHPErxl3PQW ZqDCPjOAQ0SPSjCMMsUGYpJJxeCENiJZUrHtU1ZRLp XYLwMQ1TOmQcRGCzPSKhZZFiSQFrGZGaap2FBIScNADgNNFkDuDdYDWnHMRoUDseFTGuJQX6PvI5MZQf ZOOnAJ1CCzHuRRQkTTG0HTVmMMKhDKPyaz2FUVIgOVCpBnR0ZzDoSXRpBPPfIEqnLISwRRM1AUH8DSJv GUKvLF2SCnMxKQMsGYl0WQXoJDSqPXLnnm3SDYBzGI IuUAskCIKsEFTcEXHcPMpwZYMwQKB8MPMuTOCxRMAjDK6TFsXhZCVfTKfoXSSyMGSmPRVixm0GYIBtOQ LaTLH7DQUvSTMqPIReGRsyCHYpDONpUiDgFPKuRSPlEX3FUzSuKRIkGrZ1WEAhDZYiEFQlyd6TQDIuTF YdRFOnDUPxVHLrRMHbBUzzRNAlIWNuKqN3UGCsVVKc BE8EEoEdDDAmSiW7JLClKOJbKSJqhv4YJBMpQYWlXhV4ABInQARvNFJeVCebUZBuMWRkYUywPNYbDFDw TQ1YCeToAUXeIaD1RUAtEFXtUMBeud2OTECtBXEeDne6OEFvJKPmMAEoNGcnSUNoDSA4CVi9UNBnFPEv UI6HDhPvGRXfXpB6KpQuYJYbGVBdir6MTYYiIGAvNJ h3NSExLEKrNDTsAWdfZIGyIPW0HED6OIFrHWWqDY3DZjJfJOErVyQsZXYdTLQaBVKdnn6IeYOdrIywkz 8BOHzZHc4JcXuxCEJ9YOcvPp7bjSZlAYHpQCORPa1AzcFdJCZxWJAHQKalYWKsCOT5Isr2EQcgTOJoEt KfDdT4UCslOYm5SHEkW6NaUyF3OqO5DmetOZHeJxGb ChNoYdVhXbF5SMWvZPIkVPAdBTYpNPj+OM5fUWv+Fp3Tw2UjtqK3fcVbNJpeTnAnLH1VMJJSI4FLOu== ID Date Data Source [id number] 01/21/2021 02:36:23 PM EDT [facility] Name Value Range Interpretation Code Description Data Lesley [facility](s) Supporting Document(s) History and Physical [facility] JDCUXm7zFhFXCeHs04/TDSafJCHse4WxUJplNJg2OLihZWNqX1QpCQZ8yJ0zWRY7VDaMXbFkQfCrKGX5 lbm [file] ICAgICAgICAgICAgICAgICAgICAgICAgICAgICAgIC AgICAgICAgICAgICAgICAgICANCiAgICAgICAgICAgICAgICAgICAgICAgICAgICAgICAgICAgICAgIC AgICAgICAgICAgICAgICAgICAgICAgICAgICAgICAgICAgICAgICAgICAgICAgICAgICAgICAgICAgIC ANCiAgICAgICAgICAgICAgICAgICAgICAgICAgICAg ICAgICAgICAgICAgICAgICAgICAgICAgICAgICAgICAgICAgICAgICAgICAgICAgICAgICAgICAgICAg ICAgICAgICAgICANCiAgICAgICAgICAgICAgICAgICAgICAgICAgICAgICAgICAgICAgICAgICAgICAg ICAgICAgICAgICAgICAgICAgICAgICAgICAgICAgIC AgICAgICAgICAgICAgICAgICAgICANCiAgICAgICAgICAgICAgICAgICAgICAgICAgICAgICAgICAgIC AgICAgICAgICAgICAgICAgICAgICAgICAgICAgICAgICAgICAgICAgICAgICAgICAgICAgICAgICAgIC AgICANCiAgICAgICAgICAgICAgICAgICAgICAgICAg ICAgICAgICAgICAgICAgICAgICAgICAgICAgICAgICAgICAgICAgICAgICAgICAgICAgICAgICAgICAg ICAgICAgICAgICAgICANCiAgICAgICAgICAgICAgICAgICAgICAgICAgICAgICAgICAgICAgICAgICAg ICAgICAgICAgICAgICAgICAgICAgICAgICAgICAgIC AgICAgICAgICAgICAgICAgICAgICAgICANCiAgICAgICAgICAgICAgICAgICAgICAgICAgICAgICAgIC AgICAgICAgICAgICAgICAgICAgICAgICAgICAgICAgICAgICAgICAgICAgICAgICAgICAgICAgICAgIC AgICAgICANCiAgICAgICAgICAgICAgICAgICAgICAg ICAgICAgICAgICAgICAgICAgICAgICAgICAgICAgICAgICAgICAgICAgICAgICAgICAgICAgICAgICAg ICAgICAgICAgICAgICAgICANCiAgICAgICAgICAgICAgICAgICAgICAgICAgICAgICAgICAgICAgICAg ICAgICAgICAgICAgICAgICAgICAgICAgICAgICAgIC AgICAgICAgICAgICAgICAgICAgICAgICAgICANCjw/uMAuR3auaFKsycT8S9lqCv3WZm7JAI6ak6XvZB TxCRrtasOlTzlRFpEzJLAaOdzEJnb5YMklQJ9JqCEwR6LmC5BfYLxhHX2SHMBfKARpiHSmJSXtGMQvSw N5JELqHGseBQ9FkFDeGHkxTWZeZYSzFrYnNYZvTGVf XPPyKZIyZLGEJKYhIYHoXfFlKSDjGALqUH5YWCQpX772jfXxPu0OEb5YQrSoAW5yur4PMmPbSFLdPvnA Rzd0ZDryJV8YmUWtrANoDxMzZDAKPfDoU5mld4MjEuDlTDLUOVahJS9Tq8CdvODkOEv+Ev5GSQ4rd4Tm LSroOiPsHA3ber3UHQwTSeYrN0PheOtqCTkkPRBaqN NNHDPicXU2ZUfkZ1QmaHOaUB7jFULZWFQ4QLWpQkBqTjZgDLWxYPxyASIAJNiLLaGjG1Vko4VoZmZ4WY MvWmWeULbpTPGySmZ5HX10oHazTS6NOQIlIYJmDP85XPLsFXJfHh4GMx2MNrNrUN8ryb7NNcKlBDDfOw pGKow5USymUA3QwNHxJ0HepCOyy2sIWxPfI9OBRIQn QOMoJr2AIJMkHiYqVWQuCVdlTR5tRKGqCIDYnCgkaiU8DB9DFQ2inuZkZG9CUlPaNj9nKh9GKmRiR2Ms L0WxQPSvDGHRIQryNT3XZEapKS6sZI1By0XPxPDwqY2nom3YYZHtTYOfBvzjtb0UUlcrD6W6pRjjQRIm JdZoHYSMMAwaRM9KRJOqMWY1QYKbMFWpLRZIQsYiV9 8aXA8JS5Oga94sTxS8FAUvSnSxQAqsWP36oAwdpvAbxEQlgNcvUU9PZw0+DQplbmRvYmoNCnhyZWYNCj ZhRdFYKjAeLRKcUXUpRMPlEeN4LeFxEu3BTIGmNYMmYLXhEeNfNOGrJXInGYahWOBiJAGlGHU5YMAeWI MfKK4NYwFbULCsPlN3FhFmTYAeOYBfro8YHOYlSAGc NKD9CsGfUGDmLIIaPVkjZZGiISCeHJX9VHKfJYJpWA4BNzKwFPWwYDNqDaTtTJPvNATsdd2GGHKwUAUt DvVaIfPyXYYbHILjJAygXTLcJEE3XOHxUHDpCTQaSM2TIpWwFPBpNBG2FQRiEOSdXSIiyf6XKEKsCKZg KLY1KEUnWGFhTHEeFYbyASQdUURqXHL4QJBiIUVjUH 4OFtSaCVOzCEGsBkGeGWBaZGCbhy3GWDFyYQEpJNp3HKYoFAFeQDQvBPqcGBTfRKI2OSm9HARiLTUkEL 5KZpQkNPPvFIbsZTZeNLDrWEFvjt9TGBKmIPNbVtL1SXCsZDPnEFUnJEadPBMlYJW8DZKfSDDwJQVdMB 3WTxXuPXBxVWd5NAtqXVBaUFVblc8CSEOwGSXbWHdp XPNbFASgVVNfSKsgRTOnRVT0PMsuDYNfUHYaTV0UZfTdXFJyXhZtWESyVPClGROwda9ZXRMwWUEaBZI0 FWLaKJIaMEKdDYbkDZClYLNkToFuOTZdFMAcRJ8VCkRqATNmZrI6XwjiJQJvOTQtjf9IUDWuWZBoMQMo DWYjQEUmNJOiIIzlQLYmMFZzDJX7QXIqVUJbSV0FOa RpUBTfIpSgYvIbRIWcAXBeun3NFDTjXGWaOhTkFhUhPUSeIJGoGMdjMBJjAHNdKsneDIRnNPTnUA7GEn NlDXHwUdG0XZxvUILfIDAhhu4LUBCpQNZdWRKrLWApEUKjGGKaUVqaQBFfHCQ3DXO7XTUkNRVoNL9RXy UeWNUkZeQ7CkIuIUZkEHKehe1NJFQaAFXoZxBjZVNo GUNkBMIeRHa2idHluDNiFXa8JY1RL9TbpiVoRwRHMi7Cy942YAM7OZUbNh7CG7rkHv9jCLGzEAIGOt4L XLv8RbBlJLixKVRrUWY9LPAqReKiYLAwJxZ6RRGcApUzZqR+JEswHgH4P0S1PcTiZjEyNJX8KNL6BaRz HJt5ZfEtSVN9XE7nAGIRMq7+FVfpmEBbcFoqNWFWSkP0DfFlECmoWKHHUy2J ID Date Data Source [id number] 01/21/2021 02:34:17 PM EDT [facility] Name Value Range Interpretation Code Description Data Lesley rce(s) Supporting Document(s) Consultation [facility] WISIGj9yQoHXOkEb97/ATDmeJJGqi5IvNPojKVg7VVatYLYgH3OvNYX9aT6rJNQ1MZrMDyCzMuGxFID8 lbm BxPimRIsAkLONhBwrVOcJrSRyiEikaiBPcTO9SpAA2ORSmO33dTWHjREOuR0ZuRXAkOwC+Xe0VOKMpwM NkSK2IJusL5Z3EmaxNTU2EnN3vSBgEB5gI52qxBebDauJazIfBHQliazMJntCBHblv5EJab37yNA6a8j nukyd3RDBcmYyqoiiO9Pda7K8+IDoX2LrdN/5f/Jlk vnN+9jb1Z15aMsZqwd5/FJNgge+twrCnRA9GmM7TFX64l63ns7Fa0L1HlFrcoQQxCpeLDz/w6OBHp/df sevDErCNGqJubMW3g+LqGzYrwITY3fjjOuSgQiTUXecKk6zO2OI1iUW7ZHjV76sIKERULDMaBvCWeaKQ d4+BsevY2rV2uZzxZvnStBtsM/GiYOM99uqAKgz3kj d2CM+NQ2/hEm/6i7hqMvrmgmWRrQpHsU3yVbmSOFrpBtmACSfmYm5PwhGOvB3XC9UmOaeOA4AChbibfJ 0Lu/pG4O7t1TdomtBp4UqaJFwXm8Lx+FnQSwK/9p/5MB/SgRl20mDy5p+9Hu5G5MnWl1PsImgHvYfDxU ReF3l4YQcyd7YUNLe65E/DzpqqMzVU2lw1kA8Muoc8 lzTxfPQjhrtLGCdM3IZYSdUD/VHHKlUUlbhn+Dj6vsRle1qC/phan/wzKqe1MV3uEwVb/WgIN1jaiMNqpo [file] AvRjAgMTAgMCBSDQogICAgICAvRjEgMTMgMCBSDQogICAgICAvRjIgMTYgMCBSDQogICAgICAvRjMgMT rnSBAENUofQUXiOYCjVdLdPtKzIXSYHVbhNNTsEPDsOrNaSlVwAOECQj1PIpEkCIAxNH4hziGvbCQ4XF A+Wo9EDEUzRA0CbSBXD2JvcOZqQIjvF3JSOY3OGZN4 QQ9VgCHhON3YwNTHS6FcxRRxYg6vTOByb6WbRb1yU5UCVERUOQJjTBoqBQdcCKCkOZr3O6O3ZAJnG9GI D111iKAtjPa4Aa7sK1NMPQfHVzFxIPfcWYiiBVQbFNs7Z3K8REEoM1TOB7TpYoCptdOxA0B+PiAvUEFU CF5NLXFFBCf2R9U8sYUtZ1S5mDhNoEP5DA2XMT2GdE GkdCJjj08+SiDPHsJjYPOoT2VZQHRBXaGiGBbhIBqiDSSmCFq2C7G6YJTrE8PCS9idC0x1EK5+PiANCi GiPMXrQo5GUjBpDw5DUiSoKN0gdd5AJyjtEROrNfdPNbm3D3fbaqq7nFZwXvG3R1E3JzK4uQKvHJ9RH7 B3rVXdARP9CPFaeEJ+Wv8Or1FsILYyYRy1I1fbGEDu TAJmJzUsnM09F++2gqhniOG9M4c0EKFMtMQavDwXybXrJ5qLYIZ2b5R4VAn/Vd8TNJN2hVr8vCVjLYQj OUe7mU2okCt4AcYhWZ26WGPxUVhgjH5sZla6I8Opm8LmSn0cHj8jxIApKa7IOwPiLIM9tlHxJhJZOjP3 eAgvcicxESX8S1v1nUB7Ng76l2zyptLnf4QkCuR4XB vpYFGiMoMhmbKfPQH1rqCrwS7ubvYgFq0QNUIgICucnsPjEnUEKo7VUpNoIU31IkthyB9upLI+DQogIC AgICAgICAgICAgICAgICAgICAgICAgICAgICAgICAgICAgICAgICAgICAgICAgICAgICAgICAgICAgIC AgICAgICAgICAgICAgICAgICAgICAgICAgICAgICAg ICAgICAgDQogICAgICAgICAgICAgICAgICAgICAgICAgICAgICAgICAgICAgICAgICAgICAgICAgICAg ICAgICAgICAgICAgICAgICAgICAgICAgICAgICAgICAgICAgICAgICAgICAgICAgDQogICAgICAgICAg ICAgICAgICAgICAgICAgICAgICAgICAgICAgICAgIC AgICAgICAgICAgICAgICAgICAgICAgICAgICAgICAgICAgICAgICAgICAgICAgICAgICAgICAgICAgDQ ogICAgICAgICAgICAgICAgICAgICAgICAgICAgICAgICAgICAgICAgICAgICAgICAgICAgICAgICAgIC AgICAgICAgICAgICAgICAgICAgICAgICAgICAgICAg ICAgICAgICAgDQogICAgICAgICAgICAgICAgICAgICAgICAgICAgICAgICAgICAgICAgICAgICAgICAg ICAgICAgICAgICAgICAgICAgICAgICAgICAgICAgICAgICAgICAgICAgICAgICAgICAgDQogICAgICAg ICAgICAgICAgICAgICAgICAgICAgICAgICAgICAgIC AgICAgICAgICAgICAgICAgICAgICAgICAgICAgICAgICAgICAgICAgICAgICAgICAgICAgICAgICAgIC AgDQogICAgICAgICAgICAgICAgICAgICAgICAgICAgICAgICAgICAgICAgICAgICAgICAgICAgICAgIC AgICAgICAgICAgICAgICAgICAgICAgICAgICAgICAg ICAgICAgICAgICAgDQogICAgICAgICAgICAgICAgICAgICAgICAgICAgICAgICAgICAgICAgICAgICAg ICAgICAgICAgICAgICAgICAgICAgICAgICAgICAgICAgICAgICAgICAgICAgICAgICAgICAgDQogICAg ICAgICAgICAgICAgICAgICAgICAgICAgICAgICAgIC AgICAgICAgICAgICAgICAgICAgICAgICAgICAgICAgICAgICAgICAgICAgICAgICAgICAgICAgICAgIC AgICAgDQogICAgICAgICAgICAgICAgICAgICAgICAgICAgICAgICAgICAgICAgICAgICAgICAgICAgIC AgICAgICAgICAgICAgICAgICAgICAgICAgICAgICAg EYGvLKEiWJBeDPPmMOHlUQs0Z7dxYYBzIFAqMS2gTLw2Ov3+DZiOPeLrHMI4rfAoqN6JOK0kt0RhLKbc JVCsa9EvOOa4KG6WBRScILhaCR3WFOusql8HTSOpQYAqrIYQo7ckMzJqXVZ4AEVbQpcfKP9WKQEqV7du tpLeIUZxFDUIULcbIIFSZU1OZnJlE1UtyZ68WBLTKe 4+SWlwpkRsSujEYtH6NNWxi0IrWLe1HB5SPCEqEoyyi1TtWnijMLDDCSktLS0KYPY4DOJ4RSDvGm0LUE BiK718zuXoXT8JSb9RQaSeOG1nhi3RWokdBOQqWwzQXzq6ODwpLQ8ZuJXaKSyOd55ksZl4qaIqaVHOuG AbTGNsLAkzXHAmBOKIoUDmbCNdCBSjQR8zGw8cUNGy LNUgHsF5KNPSVL5PMPMvOWTacZSuAUDbKBHXIW6RBOjfWWV0LSQqgqNtuFNhUHwuNQ3ZSOIeabAnWndo MCBSDQo+Rx6ARU3pg1DqGBdcKMEeAW3htw5OWBbBJoEoS1C9cFSaZ1K1FHfyFl0YLRKnBMXdEfJhMXDM OEhwQQ6IHU0cshA7YE0MzPJwKUHdCHTolHLdARm9O1 3doEPrPQhwCC3GQHA+Doyle+Fr6JUWWsPOSvYYTaLtHiTQXYXwOwO4SwW7QMa8XvB2XtAU13zVsoagHiBR ukOK0ZKR4jLTVfXTEXRK0RfKVgnI4oaxMrXYLlTVXDYcVxG71hxKFmGFRnHOK8TGSnGa3LPVTnC8Mltr WciNznpsRyQPUjPPKCPZ1LFMwjwgLmxNCicKwuHH10 dZbmZZ3PHa2KOgFeGB9kzg2QkFAfCp7YCYHnGZ5XTXWoMYRxRXVsLEV2ZBZyMlRoCRahJFCcVKLtWXG2 HWFkEGXyCQ0LWoWwOGSiLUHmTjVnRSRrHESdqc1IWWEtLMMjQyAdPyYpNRZkDAQtAHutYAAiRHDsWRE9 LJRaUYCcYT4ZZbCyTNAsRAH1MdNqINQuYFAxid8WFH MeBERhNnb0ARFkPIKoNFBhVZhlYZBkLTY1ARB8NHHxERBqJD6BSgTmAFLkAEtnLBytAXTbGRRphx2MHD JpNDHwUIZ2QLXkRSDwJYIkHBlePJHoYJO9Lxx1HNKaZRLqPI4FRkBrZCQiIIu8PTZtDFJtMBImdc7RMB IuDCDoCQZaQGByUOZuREReNAjkZDBjQPZ4PhJ7GQHy MLDdQI2OWjDnGEHgWVs6KHSkPAPdQQPlnc3MQTOdSNCdUMc2LhCdXSDjDZSpUFzzAMTqTVUgOMA4NYLy SUOmKZ6DKgUpOHStTYNyIMKfQQToLXRdtx3MVYAxURQiTvCqAdGvCUSvMKLoNBuuWWZtYFTpOaNmWTGa ZYTpHA0OGnJcXNUpLWK7RHQfFUBxCZNnfv2OZSWvZK JjNvO0GsFzFJAtBCVmQPtlEJIrNYMiFxVzEJYtLKOfEV5YZrYcKJRzBOW8JPQvXIFlPCVqsv0VKOMhOK XhZQhsVyReONRrHNIcJGuaWPQlNWA1PXIjFOQdRLKcXP7VWvNdJNQqNFJzQBYfGJJfGLKhxd5GDWCdBV CpFAI2GnEiWLLiQNRyGVkmIIAxIFO5ZXKaQZBcODXj RG9DJwOePFYmSCsgECPaRSUwVKRcwy1XOAVeBXZkSwZ0HPJkNDGeAOIiWBr0dfXacZCnQAu4XG5BN1Dt knEmEcWMAg4Ni872DFIcKZJlSz1HC6ihSi2yZPHiEJUROo2SDNg5ABz6QnShUchmLMNaT1DrAyVzFTZ8 OePcUIBoEdm6HFW+BJx7EBykKfWjE6V0VONnRtF3P6 BrJJD1JCS4BiIqJES7Uf0eONVYYl9+RCamgARrxEuhQUVHGgC3HHbvQNbnSHYSMh5I ID Date Data Source [id number] 01/21/2021 05:34:27 PM EDT [facility] Service Cmnt XXX-Imp : NoneGram Stn XXX : Test Not Performed.Entry ErrorMicroorganism XXX Cult : Test Not Performed.Entry Error Name Value Range Interpretation Code Description Data Lesley rce(s) Supporting Document(s) ID Date Data Source [id number] 01/21/2021 05:35:17 PM [facility] Service Cmnt XXX-Imp : NoneGram Stn XXX : Specimen unacceptable for culture and gram stain due to a preponderance of oropharyngeal secretions: submit another specimen. Name Value Range Interpretation Code Description Data Lesley rce(s) Supporting Document(s) ID Date Data Source [id number] 01/21/2021 11:21:56 AM [facility] Name Value Range Interpretation Code Description Data Lesley rce(s) Supporting Document(s) Glucose [Mass/volume] in Capillary blood by Glucometer 118 mg/dL 70- 140 [facility] ID Date Data Source [id number] 01/21/2021 11:06:59 AM [facility] Name Value Range Interpretation Code Description Data Lesley rce(s) Supporting Document(s) Leukocytes [#/volume] in Blood by Automated count 13.4 10*3/uL 4-10 H [facility] Erythrocytes [#/volume] in Blood by Automated count 4.44 10*6/uL 4.6- 6.1 L [facility] Hemoglobin [Mass/volume] in Blood 12.8 g/dL 13.5-18 L [facility] Hematocrit [Volume Fraction] of Blood by Automated count 38.4 % 4 1-53 L [facility] Erythrocyte mean corpuscular volume [Entitic volume] by Auto mated count 86.4 fL 80-96 [facility] Erythrocyte mean corpuscular hemoglobin [Entitic mass] by Automated count 28.7 pg 27-33 [facility] Erythrocyte mean corpuscular hemoglobin concentration [Mass/volume] by Automated count 33.2 g/dL [facility].0-[facility] width [Ratio] by Automated count 16.2 % 11.5-14.5 H [facility] Platelets [#/volume] in Blood by Automated count 155 10*3/uL 150-400 [facility] Differential cell count method - Blood [facility] Neutrophils/100 leukocytes in Blood by Automated count 89 % [facility] Lymphocytes/100 leukocytes in Blood by Automated count 4 % [facility] Monocytes/100 leukocytes in Blood by Automated count 7 % [facility] Eosinophils/100 leukocytes in Blood by Automated count 0 % [facility] Basophils/100 leukocytes in Blood by Automated count 0 % [facility] Neutrophils [#/volume] in Blood by Automated count 11.76 10*3/uL 1.8- 7.0 H [facility] Lymphocytes [#/volume] in Blood by Automated count 0.58 10*3/uL 1.2-4 .0 L [facility] Monocytes [#/volume] in Blood by Automated count 0.99 10*3/uL 0-0.8 H [facility] Eosinophils [#/volume] in Blood by Automated count 0.03 10*3/uL 0-0.5 [facility] Basophils [#/volume] in Blood by Automated count 0.04 10*3/uL 0-0.2 [facility] Nucleated erythrocytes/100 leukocytes [Ratio] in Blood by Automated count 0 /100{WBCs} 0-0 [facility] ID Date Data Source [id number] 01/21/2021 11:30:04 AM [facility] Name Value Range Interpretation Code Description Data Lesley rce(s) Supporting Document(s) Troponin T.cardiac [Mass/volume] in Serum or Plasma <0.01 [facility] ID Date Data Source [id number] 01/21/2021 08:01:48 AM [facility] Name Value Range Interpretation Code Description Data Lesley rce(s) Supporting Document(s) [facility] [id number]M3uvgj0H3O9oARvN9QjsBVjh2atP3CqD0LbNEKlXPDMJD1JdSPf jb2 [file] DLdduH8CXE+fg1x9Dd/vp revenue cycle+ZO0xG43rZEc8gEpiTWRs1o/3Wpq41//ux0TA9rn4///u//6Z9/2fjn//3X H/D33z///T34v/713/7Hv/6b//if/mm1/PMf/+e//rv/+Jf9/fqOst49byb01p26//M///f/GqP8Y/73 z3/65xyO+ffvv//5X/7lD/AEzAfMBKwHrARYeYiOH2 ZDTEPFEO2DX1HjOMTwM0ZbvmGUNqPcB9Myd2LjTLiNxHkGHUArULZZtRVZ4OLjZGL18YjIqY9750IbJ6 17LfgSw49PscTpS5BfNioEZBpYgmSU8vCfHRc8fFrNNP2e6DPLz3A58HWgAC532HeNh22602VgZ543sm nCm68njxWkS9ljFbaNFVkYrwWZ8zQvM0qNuNzIRTIq TOSSrNPX4AWbFMAVBKoJNMPsLLCJtSTH6GLpZF71SSpopDgbMP36AJvcwUniGN69/Fpi8MTX5PRX1snv z57v4Hvle9k2Nptu7f8Jx3q7f0Xexw5gnCptrquvno2kAHf8kYzROTBrrVBDctGo1RBaZXj4sCsSfc7k 54Jk17x8Kyu2ql3Dnk9xzwcrK6dvElf9ezjMtr0k1u EoY2s62CxOce38ikPqv64a5mmex9n9Iwlei+/l9GL+gTFSmtrVw4v52NMrjv2Qbh/n8vN+HlfHe461sZ Kwiqm0dtec4bNvNY99mo3/moGA7y1obUWEezvVGUMMlPHp6svKBjE0GEVGapbkuTNEaciZsuZ/fMRISO cYtHtctfXfgwHH5c+bgIR5t9jDuAN+mImRmtgPNzGS E/lxR7X3Of/6zVoH2NnzFXkQ/KZWP9uh2yunV465lVALaI1BbuKv5I3FJIXG+3KtQfglM0iWEJvws5SX JSh8gVIkrhBu4lNaTlrGB8vVnJ8Ug3E17S00ODKC+2EvRvpiP/iQVNDsf5JVQUr2hFbnlkVrWlGyKDy+ v6pYzQ69TSOxf0aCkIb0zRpomqRjBwCrYLkAaApRun 64lRYS4R+rMdIa++E1RmJj/jsjop0/3DGTwkyI4Jesco1aTbLYjN+RS2P12kDbeRECgyoOangFP14hKx 37YTpGqmM/KOwShtnC1Apsgy4wTLJeiV/HS2T57qQ4yUEKpscLctlNI+8xEh/1EE6W7rQ/3MdIfuyH/R jpj/5cXiNPyu6VOAXW1aUYaOHSdnhIhCkFQx1jMaD5 YUJGKmQ/XKyLafzLQWdkiA1eoWt+VH/8WYQzmx31mKDL9O4+QXxK2t9vwsSS1MkAVyOg+sOHKvlQ/eFD lXyo/iOuFt8Kr/hQJR+jN6zmbf/RJp7BmFzhDq+h1QP5np9P7gY7i3un+PP63QUQlRs+7cqKglN1T3XO DM1AuoIcyE3tTPvc6azTAsR3QagGwqL9I4XUAl/Zmp [place]+eFDlXyo/aXhTb1Mr/hQJR+cC7ijpa/PEc5SwOpjTz+x4IC6rw6Q8wB9j9zz+CN77TPTdGl+8KFKPl [file] sG548PQfWY/n+e87r2Ie38zob91c/1m599+80vfvHV 99/86pdf/gtnmo63S/7bH/7yL3/74+//659+97ef/Off/f4P//zl93/983/+0x/+nz/8l//O5Vb096kf /fJXn0f/xZev/+F/+/DvVUZy035++asvv/05603+86vffPf+1XgvwhclO8/84quf/eLr/8k/vYaAvbG/ /uU//fFvf/48yf/x37/89o9/+jzZ3/7wuz/9my8//9 1f/zgCU095o/+q7P/4r7/89S9f+t/X+ss8TgOBr/KINg532O//c17bsDfd2l3//jspzTgjwrN9DyDjng nh0hpm7n1/9/8CNP/hlgzjGl40RQMqx7q7/s9EIA6sJ6ailYv49j5+Dvjzfcdz/gGrFO04xxdvv6d3/+ DbP/eeG3d96bzdc76+2v7Vb7/5+nuyzkgps089/ut/ /EF32w/+L7X8s/keIrnjoc7mdNcxCKoSl0iuO9cL7MlDH//B+FwjN8d53p6/+92//OEHd/519q6f7x56 R3/mS7J/Davide/+fG9A/r1t1/++Alexander/+cPf/tv/7Dc3rpnwqkt//zexz+s1d4bF2C73+92Xf/6vn0f/41// 5sE6C4T0E73fk5tRj/j+7//D97/on08koLG/5vvff/ l7F3zyxCnlFo+/aI1P/3CXtI1rQ+vQx7wn+KP4UtjOV/n2J99/+d0Pp/zEE4pTG/n3v/zyV00GY3/J95 kV//1v//Ff/+ot45Y48+/+5WOCa05Z/sPv/uvvf/df/vi7v/zo/0PTa/zxR+DV0bd//euff/rV+hEevf nFX3//0zE4i1/XVKQAL/79H37/f/3lj7///P5Pv+xd avvRnxr/hv70v/lGL1a7634//k/f/fqXX3/15e+/fPern+HvX/+iflm+1P36d//qU81RZ1/4N701OH6u 8pOz+vp2EbyW2siKM+Ikr6g67+8/M/dssI3UpM+XZ305hoW//sCIM272qgsGs/3o5at09do0/y/L1cfD jh/6/tJvFVdlWtGgPPY4ugOnjUwroiMfYdwGULuiEU LxYkd0SP8QuCCiNYKoX5J7WGNjtt6pVBAiTJMdvPUkRfSqRDKAVT9TsOJtBM1JGXi5KHZsPQNfKaKyGH LqxmC2GQSvHCYxWXWdX1UzykWfoDOjKLSuEb2+YU7gm0DvSwIuLBOgAet6GZ4CzTShTY7ZnNAjpU0lss WpE108ssWtHFLdMkbjb3EcYPfxKUPTNX0HCEW8DZM8 IDAgUj4+GG7nc8MjNfViXKIaCia5HJ2LiHNff1TwAU3MO4UyQJFgHPJLUPI2o1TqWLNsphjjoaxeW2Ss JXD3cB5vOOG2HNGsMGynFPPoNIAtZhU2HETlRAnaDWAgSKDsDCJgLNXySEe7kLAnKQ8HN1YfMJHsUMJB IFCcdnQlEt8kKNGZMCxDSYBKJHRTFV6CGuJoJTTpAJ D7BNCkX3HtmxMnxBVyBYHKESihBwutIDLmtN8vbXgaD3LdBHB8p5RmMJ5XV4UbQJPmAZYHTXW6t4TsHR WxnmwlathkAuAgHHEcTPEvWVMbUV9Tjz0anVBakiDnYGHVAOqhIzjtVN9kqZjrriczH7WdeZLeYRV+Pm RkCE0iop9+NrPwIWThQkm3RGPsVCgzHKDaDNYuPIUq X0zdJBNhDqRlACCnOjZbSG4Ie6MlxHYrRm3uloJcDjoSaITkVuhtLZPkEJWvYAAzBxBZUPTnSOWwPPVp VAT8EMAkQGRoOSicPEGpUXjfJFgiGHDgKJRkUB4cDzQbMTWpAvP9WNKzBQSeCDOmkhWQSPTcKND7INru QIMeEQJmHZXbTJgnMMZmOWOhXUGdPJL1CRL1AOFlKt OpIYMlBLJpCXQsNRLpHJLaxzHCRXRbTUBzFMT9PHUyUQRaNNMhVIrwWRCkTZHlOPgmOKIaPTIrKJ7oMz LxBOUoHDAlCTawSXMtVQYbmiOYWDKvKQHaAOXrIKGgCQMnDWCdRYrnCLRoJARsAEMfGCBeUFOmCQ5dLx XlRUMkDBM3HPItKYBnMTPdslDZKVOjNWBjHEd9KSDz VNRdFTBrDQlgBLAjOCPcHOZ5GMLlJOHhQK4uQbSrZJJoEOM3TwQvDGSuRYIuguPEDAEkLOZvHYD1OiGl EVIfPKSgSVstCZZeDKMcXCfsFZXaTGKyBY6vZnSpMNPzRSBeKNftJPBjTXTlfpFMUMKmVGIzUXBsNkQy VSInYAWcCHjqTQUdTWezOtH8WCGyVLRrGU1gRaPtFR RmAWU4XDukHNIuZPPkdiQTWTJkESOfOJrrODGcFDUvUDFsYZfvREHuOWRcGZW1TIDtSIRpDS5jCkScCE FaWFOqBKHiBeT7UzPrXrIKuXFmzDsdumn4JCdvL2q8ZUYeQMabBB8wncHbVAFkSrssTy2hdPV8FQGyLl nBVk7Hj8VoxyJ9deFbFbxmDgA5NhUoEA5U ID Date Data Source [id number] 01/21/2021 09:30:18 AM EDT [facility] Name Value Range Interpretation Code Description Data Lesley rce(s) Supporting Document(s) Hepatitis C virus Ab [Presence] in Serum or Plasma by Immuno assay Non Reactive [facility] No serological evidence of active infect ion. If recent exposure is suspected, test for HCV RNA. ID Date Data Source [id number] 01/21/2021 04:52:22 AM EDT [facility] Name Value Range Interpretation Code Description Data Lesley rce(s) Supporting Document(s) Prothrombin time (PT) 20.5 s 12.5-14.9 H [facility] INR in Platelet poor plasma by Coagulation assay 1.72 [facility] Routine intensity oral anticoagulation I NR is typically 2.0-3.0. Target INR must be clinically individualized. ID Date Data Source [id number] 01/21/2021 05:09:53 AM [facility] Name Value Range Interpretation Code Description Data Lesley rce(s) Supporting Document(s) Albumin [Mass/volume] in Serum or Plasma by Bromocresol green (BCG) dye binding method 3.2 g/dL 3.5-5.2 [facility] Bilirubin.total [Mass/volume] in Serum or Plasma 8.6 mg/dL <1.2 H [facility] Bilirubin.direct [Mass/volume] in Serum or Plasma 7.4 mg/dL <0.3 H [facility] Alkaline phosphatase [Enzymatic activity/volume] in Serum or Plasma 286 U/L 40-129 H [facility] Aspartate aminotransferase [Enzymatic activity/volume] in Serum or Plasma 139 U/L <40 H [facility] Alanine aminotransferase [Enzymatic activity/volume] in Seru m or Plasma 276 U/L <41 H [facility] Protein [Mass/volume] in Serum or Plasma 6.5 g/dL 6.4-8.3 [facility] ID Date Data Source [id number] 01/21/2021 05:09:53 AM [facility] Value Range Interpretation Code Description Data Lesley rce(s) Supporting Document(s) Bicarbonate [Moles/volume] in Serum 28 mmol/L 22-29 [facility] Chloride [Moles/volume] in Serum or Plasma 102 mmol/L 98-107 [facility] Creatinine [Mass/volume] in Serum or Plasma 0.86 mg/dL 0.70-1.20 [facility] Icteric Glucose [Mass/volume] in Serum or Plasma 145 mg/dL 70-140 H [facility] Potassium [Moles/volume] in Serum or Plasma 3.9 mmol/L 3.4-5.1 [facility] Sodium [Moles/volume] in Serum or Plasma 140 mmol/L 136-145 [facility] Urea nitrogen [Mass/volume] in Serum or Plasma 20 mg/dL 8-23 [facility] Anion gap 3 in Serum or Plasma 10 mmol/L 8-15 [facility] Osmolality of Serum or Plasma by calculation 295 mosm/kg 275-300 [facility] Creatinine/Urea nitrogen [Mass Ratio] in Serum or Plasma 23 [facility] Calcium [Mass/volume] in Serum or Plasma 8.5 mg/dL 8.8-10.2 L [facility] Glomerular filtration rate/1.73 sq M pre dicted among non-blacks [Volume Rate/Area] in Serum or Plasma by Creatinine-based formula (MDRD) 88 mL/min/1.73m2 >60 [facility] Glomerular filtration rate/1.73 sq M pre dicted among blacks [Volume Rate/Area] in Serum or Plasma by Creatinine-based formula (MDRD) >60 [facility] ID Date Data Source [id number] 01/21/2021 04:52:33 AM EDT [facility] Name Value Range Interpretation Code Description Data Lesley rce(s) Supporting Document(s) Lactate [Moles/volume] in Serum or Plasma 1.6 mmol/l 0.5-2.2 [facility] ID Date Data Source [id number] 01/20/2021 11:43:00 PM EDT [facility] Name Value Range Interpretation Code Description Data Lesley rce(s) Supporting Document(s) SARS-CoV-2 RNA 2019 nCoV Real-Time RT-PCR: NOT DETECTED [facility] This lab was ordered by [facility] and reported by [facility]. ID Date Data Source [id number] 01/21/2021 12:57:08 AM EDT [facility] Service Cmnt XXX-Imp : NoneRespiratory P CR Panel : PCR ResultsMicroorganism XXX Cult : See Labs Tab for 2019 nCoV RT-PCR resultsHAdV DNA QI MARIELLE+non-probe : Not DetectedHCoV [id number] Nph QI MARIELLE+non-probe : Not DetectedHCoV LKS3TMH Nph QI MARIELLE+non-probe : Not [id number] RNA Nph QI MARIELLE+non-probe : Not SfnnhwsoQXrMVQ33 RNA Upper resp QI MARIELLE+probe : Not DetectedhMPV RNA Nph QINAA+non-probe : Not DetectedRV+EV RNA Nph QI MARIELLE+non-probe : Not DetectedFLUAV RNA Nph QI MARIELLE+ non-probe : Not DetectedFLUBV RNA Nph QI MARIELLE+non-probe : Not DetectedHPIV1 RNA NphQINAA+non-probe : Not DetectedHPIV2 RNA Nph QINAA+non-probe : Not DetectedHPVI3 RNA Nph MARIELLE+non-probe : Not DetectedHPIV4 RNA Nph Q MARIELLE+non-probe : Not DetectedRSV RNA Nph Q MARIELLE+non-probe : Not DetectedB pert.PT PrmtNph Q MARIELLE+non-probe : Not DetectedC pneum DNA Nph Q MARIELLE+non-probe : Not DetectedM pneum DNA Nph Q MARIELLE+non-probe : Not DetectedB [id number] DNA Nph MARIELLE+non-probe : Not Detected Name Value Range Interpretation Code Description Data Lesley rce(s) Supporting Document(s) ID Date Data Source [id number] 01/21/2021 12:54:49 AM [facility] Name Value Range Interpretation Code Description Data Lesley rce(s) Supporting Document(s) Specimen source [Identifier] of Unspecified specimen [facility] SARS-CoV-2 RNA 2019 nCoV Real-Time RT-PCR: NOT DETECTED [facility] Assay Performed [facility] Patients first test for 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 When did you start to experience these symptoms [Date and time] [Phen X] [facility] Patient was hospitalized because of this condition [facility] patient was admitted to ICU for [facility] Patient resides in a congregate care setting [facility] status [facility] ID Date Data Source [id number] 01/21/2021 06:32:51 AM [facility] Service Cmnt XXX-Imp : NoneMicroorganism XXX Cult : Polymerase chain reaction assay was NEGATIVE for both methicillin-resistant Staphylococcus aureus (MRSA) and methicillin-susceptible Staphylococcus aureus (MSSA) Name Value Range Interpretation Code Description Data Lesley rce(s) Supporting Document(s) ID Date Data Source [id number] 01/20/2021 11:51:41 PM [facility] Name Value Range Interpretation Code Description Data Lesley rce(s) Supporting Document(s) Natriuretic peptide.B prohormone N-Terminal [Mass/volu me] in Serum or Plasma 3605 pg/mL <125 H [facility] ID Date Data Source [id number] 01/20/2021 11:51:41 PM [facility] Name Value Range Interpretation Code Description Data Lesley rce(s) Supporting Document(s) Magnesium [Mass/volume] in Serum or Plasma 1.8 mg/dL 1.6-2.4 [facility] ID Date Data Source [id number] 01/20/2021 11:51:41 PM [facility] Name Value Range Interpretation Code Description Data Lesley rce(s) Supporting Document(s) Bicarbonate [Moles/volume] in Serum 27 mmol/L 22-29 [facility] Chloride [Moles/volume] in Serum or Plasma 100 mmol/L 98-107 [facility] Creatinine [Mass/volume] in Serum or Plasma 0.99 mg/dL 0.70-1.20 [facility] Icteric Glucose [Mass/volume] in Serum or Plasma 185 mg/dL 70-140 H [facility] Potassium [Moles/volume] in Serum or Plasma 4.3 mmol/L 3.4-5.1 [facility] Sodium [Moles/volume] in Serum or Plasma 139 mmol/L 136-145 [facility] Urea nitrogen [Mass/volume] in Serum or Plasma 20 mg/dL 8-23 [facility] Anion gap 3 in Serum or Plasma 12 mmol/L 8-15 [facility] Osmolality of Serum or Plasma by calculation 295 mosm/kg 275-300 [facility] Creatinine/Urea nitrogen [Mass Ratio] in Serum or Plasma 20 [facility] Calcium [Mass/volume] in Serum or Plasma 8.3 mg/dL 8.8-10.2 L [facility] Glomerular filtration rate/1.73 sq M pre dicted among non-blacks [Volume Rate/Area] in Serum or Plasma by Creatinine-based formula (MDRD) 83 mL/min/1.73m2 >60 [facility] Glomerular filtration rate/1.73 sq M pre dicted among blacks [Volume Rate/Area] in Serum or Plasma by Creatinine-based formula (MDRD) >60 [facility] ID Date Data Source [id number] 01/20/2021 11:51:41 PM [facility] Value Range Interpretation Code Description Data Lesley rce(s) Supporting Document(s) Phosphate [Mass/volume] in Serum or Plasma 4.4 mg/dL 2.5-4.5 [facility] ID Date Data Source [id number] 01/20/2021 11:51:41 PM [facility] Name Value Range Interpretation Code Description Data Lesley rce(s) Supporting Document(s) Troponin T.cardiac [Mass/volume] in Serum or Plasma <0.01 [facility] ID Date Data Source [id number] 01/21/2021 12:03:51 AM [facility] Name Value Range Interpretation Code Description Data Lesley rce(s) Supporting Document(s) Albumin [Mass/volume] in Serum or Plasma by Bromocresol green (BCG) dye binding method 3.6 g/dL 3.5-5.2 [facility] Bilirubin.total [Mass/volume] in Serum or Plasma 9.2 mg/dL <1.2 H [facility] Bilirubin.direct [Mass/volume] in Serum or Plasma 7.9 mg/dL <0.3 H [facility] Alkaline phosphatase [Enzymatic activity/volume] in Serum or Plasma 333 U/L 40-129 H [facility] Aspartate aminotransferase [Enzymatic activity/volume] in Serum or Plasma 192 U/L <40 H [facility] Alanine aminotransferase [Enzymatic activity/volume] in Seru m or Plasma 330 U/L <41 H [facility] Protein [Mass/volume] in Serum or Plasma 7.2 g/dL 6.4-8.3 [facility] ID Date Data Source [id number] 01/21/2021 12:53:45 AM [facility] Value Range Interpretation Code Description Data Lesley rce(s) Supporting Document(s) Leukocytes [#/volume] in Blood by Automated count 30.5 10*3/uL 4-10 [facility] Called to and read back by CLARENCE/[id number]/Tito MENENDEZ ON [id number] AT [id number] BY [id number] Erythrocytes [#/volume] in Blood by Automated count 4.79 10*6/uL 4.6- 6.1 [facility] Hemoglobin [Mass/volume] in Blood 13.5 g/dL 13.5-18 [facility] Hematocrit [Volume Fraction] of Blood by Automated count 41.7 % 4 1-53 [facility] Erythrocyte mean corpuscular volume [Entitic volume] by Auto mated count 87.1 fL 80-96 [facility] Erythrocyte mean corpuscular hemoglobin [Entitic mass] by Automated count 28.2 pg 27-33 [facility] Erythrocyte mean corpuscular hemoglobin concentration [Mass/volume] by Automated count 32.4 g/dL 32.0-36.0 [facility] E[facility]th[facility] distribution width [Ratio] by Automated count 16.1 % 11.5-14.5 H [facility] Platelets [#/volume] in Blood by Automated count 231 10*3/uL 150-400 [facility] Differential cell count method - Blood [facility] Neutrophils/100 leukocytes in Blood by Automated count 83 % [facility] Lymphocytes/100 leukocytes in Blood by Automated count 1 % [facility] Monocytes/100 leukocytes in Blood by Automated count 10 % [facility] Neutrophils [#/volume] in Blood by Automated count 25.32 10*3/uL 1.8- 7.0 H [facility] Lymphocytes [#/volume] in Blood by Automated count 0.31 10*3/uL 1.2-4 .0 L [facility] Monocytes [#/volume] in Blood by Automated count 3.05 10*3/uL 0-0.8 H [facility] Band form neutrophils/100 leukocytes in Blood by Manual count 6 % [facility] Band form neutrophils [#/volume] in Blood by Manual count 1.83 10*3 /uL 0-0.6 H [facility] Anisocytosis [Presence] in Blood by Light microscopy [facility] Toxic granules [Presence] in Blood by Light microscopy [facility] Leukocyte toxic vacuoles [Presence] in Blood by Light microscopy [facility] ID Date Data Source [id number] 01/21/2021 12:34:04 AM EDT [facility] Name Value Range Interpretation Code Description Data [facility](s) Supporting Document(s) Color of Urine [facility] Clarity of Urine [facility] Specific gravity of Urine by Refractometry automated 1.045 1.003 -1.030 [facility] pH of Urine by Automated test strip 5.0 5.0-8.0 [facility] Protein [Mass/volume] in Urine by Automated test strip 100 mg/dL Neg ative [facility] Glucose [Mass/volume] in Urine by Automated test strip 50 mg/dL Neg ative [facility] Ketones [Mass/volume] in Urine by Automated test strip Neg [facility] Bilirubin.total [Presence] in Urine by Automated test strip Negative [facility] False-positive results may occur with ce rtain food additives or medications. Hemoglobin [Presence] in Urine by Automated test strip Neg ative [facility] Leukocyte esterase [Presence] in Urine by Automated test strip Negative [facility] Nitrite [Presence] in Urine by Automated test strip Negati ve [facility] Leukocytes [#/area] in Urine sediment by Automated count 5 /HPF 0 -5 [facility] Erythrocytes [#/area] in Urine sediment by Automated count 0-3 H [facility] Service comment [facility] Epithelial cells.squamous [#/area] in Urine sediment by Auto mated count 1 /HPF None A [facility] ID Date Data Source [id number] 01/20/2021 11:38:21 PM [facility] Name Value Range Interpretation Code Description Data Lesley rce(s) Supporting Document(s) Lactate [Moles/volume] in Serum or Plasma 2.2 mmol/l 0.5-2.2 [facility] ID Date Data Source [id number] 01/20/2021 11:32:51 PM [facility] Name Value Range Interpretation Code Description Data Lesley rce(s) Supporting Document(s) Calcium.ionized [Moles/volume] in Arterial blood 1.09 mmol/L 1.13-1.3 2 L [facility] ID Date Data Source [id number] 01/20/2021 10:54:38 PM [facility] Value Range Interpretation Code Description Data Lesley rce(s) Supporting Document(s) Glucose [Mass/volume] in Capillary blood by Glucometer 163 mg/dL 70- 140 H [facility] ID Date Data Source [id number] 01/20/2021 06:55:46 PM [facility] CT ABDOMEN PELVIS WITH CONTRAST [id number] AL RESULTInterpreted by:Mariza Gatica, MDPROCEDURE INFORMATION: Exam: CT Abdomen And Pelvis With Contrast Exam date and time: 01/20/2021 6:07 PM Age: 65 years old Clinical indication: Abdominal pain; Other: Concern for choledocholithiasis TECHNIQUE: Imaging protocol: Computed tomography of the abdomen and pelvis with contrast. Radiation optimization: All CT scans at this facility use at least one of these dose optimization techniques: automated exposure control; mA and/or kV adjustment per patient size (includes targeted exams where dose is matched to clinical indication); or iterative reconstruction. Contrast material: OMNI 300; Contrast volume: 100 ml; Contrast route: INTRAVENOUS (IV); COMPARISON: No relevant prior studies available. FINDINGS: Lungs: There are ground-glass densities present within the lower lungs. Interstitial septal thickening noted within the lower lungs. Heart: The heart is enlarged. Liver: There is a somewhat nodular hepatic contour suggesting cirrhosis. There is some low attenuation within the liver adjacent to the gallbladder fossa which may represent focal fatty infiltration. Gallbladder and bile ducts: There has been a cholecystectomy. Pancreas: Normal. No ductal dilation. Spleen: Normal. No splenomegaly. Adrenal glands: Normal. No mass. Kidneys and ureters: There is small simple appearing right renal cyst. There is a mildly complex about 13 mm right renal cyst consistent Bosniak 2 cyst. Stomach and bowel: There is diverticulosis of the colon without evidence of diverticulitis. No dilation.There is no evidence of intestinal obstruction. There has been a gastric stapling and bypass. Appendix: A normal appendix is identified. Intraperitoneal space: Unremarkable. No free air. No significant fluid collection. Vasculature: The aorta demonstrates severe atherosclerotic calcification and ectasia. Lymph nodes: Posterior mediastinal adenopathy identified partially imaged. Urinary bladder: Unremarkable as visualized. Reproductive: Unremarkable as visualized. Bones/joints: There are sternal wires consistent with previous sternotomy incision. The spine demonstrates moderate degenerative changes at multiple levels. Soft tissues: There is nonspecific gynecomastia. IMPRESSION: 1. Status post cholecystectomy. No biliary ductal dilation. No evidence of CBD stone. Probable areas of fat infiltration around the gallbladder fossa. 2. Possible cirrhotic changes of the liver. 3. Diverticulosis. 4. Basilar interstitial thickening may be related to acute or chronic interstitial disease, interstitial pneumonia, pneumonitis and fibrosis. COMMENTS: Consistent with the [employer]'s Incidental Findings Committee white paper (J Am Juan Radiol 2018): Any incidental renal lesion less than 1 cm or classified as too small to characterize, or any incidental cystic renal lesion characterized as simple-appearing, is likely benign. No follow-up imaging is recommended for these lesions per consensus recommendations based on imaging criteria. THIS DOCUMENT HAS BEEN ELECTRONICALLY SIGNED BY MARIZA GATICA MDThis document has been electronically signed by Mariza Gatica MD on 01/20/2021 6:55 PM Name Value Range Interpretation Code Description Data Lesley rce(s) Supporting Document(s) ID Date Data Source [id number] 01/20/2021 06:02:38 PM EDT [facility] Name Value Range Interpretation Code Description Data Lesley rce(s) Supporting Document(s) pH of Venous blood 7.40 7.36-7.41 [facility] Carbon dioxide [Partial pressure] in Venous blood 37 mmHg 40-45 L [facility] Oxygen [Partial pressure] in Venous blood 57 mmHg [facility] Base excess standard in Venous blood by calculation [facility] Oxygen saturation Calculated from oxygen partial pressure in Venous blood 90 % 60-85 H [facility] Lactate [Moles/volume] in Venous blood 1.5 mmol/L 0.5-2.2 [facility] Bicarbonate [Moles/volume] in Venous blood 25 mmol/L [facility] ID Date Data Source [id number] 01/20/2021 05:40:21 PM EDT [facility] XR CHEST FRONTAL ONLY [id number] RESULTI nterpreted by:Verónica Kim MDPROCEDURE INFORMATION: Exam: XR Chest Exam date and time: 01/20/2021 5:12 PM Age: 65 years old Clinical indication: Other: Possible pulm edema TECHNIQUE: Imaging protocol: XR of the chest. Views: 1 view. COMPARISON: No relevant prior studies available. FINDINGS: Tubes, catheters and devices: Left-sided dual lead pacemaker. Lungs: Diffuse ground-glass appearance throughout the right lung field and left lung base. Pleural spaces: No evidence of pneumothorax. Heart/Mediastinum: Cardiomegaly. Bones/joints: Sternotomy wires and vascular clips. IMPRESSION: Though findings may be related to pulmonary edema. Underlying viral pneumonitis cannot be ruled out. Clinical and laboratory correlation advised. THIS DOCUMENT HAS BEEN ELECTRONICALLY SIGNED BY VERÓNICA KIM MDThis document has been electronically signed by Verónica Kim MD on 01/20/2021 5:40 PM Name Value Range Interpretation Code Description Data Lesley rce(s) Supporting Document(s) ID Date Data Source [id number] 01/22/2021 10:10:52 AM EDT [facility] Service Cmnt XXX-Imp : Specimen source n ot given.Microorganism XXX Cult : Smear:Gram negative rodsin aerobic broth.Called to and read back byJESUS TODD RN ON ICUCC AT 1058 ON 01/21/21 BY Dalyomonas aeruginosaATTENTION This species is always resistant to aminopenicillins, ampicillin-sulbactam, amoxicillin-clavulanic acid, first-generation cephalosporins, cefuroxime, cephamycins, cefotaxime, ceftriaxone, ertapenem, tetracyclines, trimethoprim, trimethoprim-sulfamethoxazole, and chloramphenicol.in aerobic broth. Name Value Range Interpretation Code Description Data Lesley rce(s) Supporting Document(s) ID Date Data Source [id number] 01/22/2021 10:11:27 AM [facility] Service Cmnt XXX-Imp : Specimen source n ot given.Microorganism XXX Cult : Smear:Gram negative rodsin aerobic broth.Pseudomonas aeruginosaATTENTION This species is always resistant to aminopenicillins, ampicillin-sulbactam, amoxicillin-clavulanic acid, first-generation cephalosporins, cefuroxime, cephamycins, cefotaxime, ceftriaxone, ertapenem, tetracyclines, trimethoprim, trimethoprim-sulfamethoxazole, and chloramphenicol.in aerobic broth. Name Value Range Interpretation Code Description Data Lesley rce(s) Supporting Document(s) ID Date Data Source [id number] 01/20/2021 05:24:27 PM [facility] Name Value Range Interpretation Code Description Data Lesley rce(s) Supporting Document(s) Prothrombin time (PT) 19.2 s 12.5-14.9 [facility] INR in Platelet poor plasma by Coagulation assay 1.58 [facility] Routine intensity oral anticoagulation I NR is typically 2.0-3.0. Target INR must be clinically individualized. ID Date Data Source [id number] 01/20/2021 05:24:27 PM [facility] Name Value Range Interpretation Code Description Data Lesley rce(s) Supporting Document(s) aPTT in Platelet poor plasma by Coagulation assay 40.8 s 24.0-33. 0 [facility] ID Date Data Source [id number] 01/20/2021 05:30:21 PM [facility] Name Value Range Interpretation Code Description Data Lesley rce(s) Supporting Document(s) Albumin [Mass/volume] in Serum or Plasma by Bromocresol green (BCG) dye binding method 3.6 g/dL 3.5-5.2 [facility] Bilirubin.total [Mass/volume] in Serum or Plasma 8.2 mg/dL <1.2 [facility] Bilirubin.direct [Mass/volume] in Serum or Plasma 6.5 mg/dL <0.3 [facility] Alkaline phosphatase [Enzymatic activity/volume] in Serum or Plasma 320 U/L 40-129 [facility] Aspartate aminotransferase [Enzymatic activity/volume] in Serum or Plasma 226 U/L <40 [facility] Alanine aminotransferase [Enzymatic activity/volume] in Seru m or Plasma 333 U/L <41 [facility] Protein [Mass/volume] in Serum or Plasma 6.6 g/dL 6.4-8.3 [facility] ID Date Data Source [id number] 01/20/2021 05:30:21 PM [facility] Name Value Range Interpretation Code Description Data Lesley rce(s) Supporting Document(s) Digoxin [Mass/volume] in Serum or Plasma 0.7 ng/ml 0.9-2.0 L [facility] ID Date Data Source [id number] 01/20/2021 05:30:21 PM [facility] Name Value Range Interpretation Code Description Data Lesley rce(s) Supporting Document(s) Lipase [Enzymatic activity/volume] in Serum or Plasma 10 U/L 13-6 0 L [facility] ID Date Data Source [id number] 01/20/2021 05:30:21 PM [facility] Name Value Range Interpretation Code Description Data Lesley rce(s) Supporting Document(s) Bicarbonate [Moles/volume] in Serum 24 mmol/L 22-29 [facility] Chloride [Moles/volume] in Serum or Plasma 105 mmol/L 98-107 [facility] Creatinine [Mass/volume] in Serum or Plasma 1.33 mg/dL 0.70-1.20 [facility] Icteric Glucose [Mass/volume] in Serum or Plasma 147 mg/dL 70-140 [facility] Potassium [Moles/volume] in Serum or Plasma 3.9 mmol/L 3.4-5.1 [facility] Sodium [Moles/volume] in Serum or Plasma 141 mmol/L 136-145 [facility] Urea nitrogen [Mass/volume] in Serum or Plasma 19 mg/dL 8-23 [facility] Anion gap 3 in Serum or Plasma 12 mmol/L 8-15 [facility] Osmolality of Serum or Plasma by calculation 297 mosm/kg 275-300 [facility] Creatinine/Urea nitrogen [Mass Ratio] in Serum or Plasma 14 [facility] Calcium [Mass/volume] in Serum or Plasma 7.9 mg/dL 8.8-10.2 L [facility] Glomerular filtration rate/1.73 sq M pre dicted among non-blacks [Volume Rate/Area] in Serum or Plasma by Creatinine-based formula (MDRD) 54 mL/min/1.73m2 >60 [facility] Glomerular filtration rate/1.73 sq M pre dicted among blacks [Volume Rate/Area] in Serum or Plasma by Creatinine-based formula (MDRD) 62 mL/min/1.73m2 >60 [facility] ID Date Data Source [id number] [facility] Interpretation Code Description Data Lesley rce(s) Supporting Document(s) Troponin T.cardiac [Mass/volume] in Serum or Plasma <0.01 [facility] ID Date Data Source [id number] 01/20/2021 06:26:05 PM [facility] Name Value Range Interpretation Code Description Data Lesley rce(s) Supporting Document(s) Leukocytes [#/volume] in Blood by Automated count 35.8 10*3/uL 4-10 [facility] Called to and read back by SHANNAN Naranjo IN ED AT 1723 BY 1767 Erythrocytes [#/volume] in Blood by Automated count 4.82 10*6/uL 4.6- 6.1 [facility] Hemoglobin [Mass/volume] in Blood 13.5 g/dL 13.5-18 [facility] Hematocrit [Volume Fraction] of Blood by Automated count 42.0 % 4 1-53 [facility] Erythrocyte mean corpuscular volume [Entitic volume] by Auto mated count 87.1 fL 80-96 [facility] Erythrocyte mean corpuscular hemoglobin [Entitic mass] by Automated count 28.0 pg 27-33 [facility] Erythrocyte mean corpuscular hemoglobin concentration [Mass/volume] by Automated count 32.2 g/dL 32.0-36.0 [facility] E[facility]th[facility] distribution width [Ratio] by Automated count 15.9 % 11.5-14.5 [facility] Platelets [#/volume] in Blood by Automated count 225 10*3/uL 150-400 [facility] Differential cell count method - Blood [facility] Neutrophils/100 leukocytes in Blood by Automated count 90 % [facility] Lymphocytes/100 leukocytes in Blood by Automated count 2 % [facility] Monocytes/100 leukocytes in Blood by Automated count 6 % [facility] Neutrophils [#/volume] in Blood by Automated count 32.26 10*3/uL 1.8- 7.0 [facility] Lymphocytes [#/volume] in Blood by Automated count 0.64 10*3/uL 1.2-4 .0 [facility] Monocytes [#/volume] in Blood by Automated count 2.26 10*3/uL 0-0.8 [facility] Band form neutrophils/100 leukocytes in Blood by Manual count 2 % [facility] Band form neutrophils [#/volume] in Blood by Manual count 0.64 10*3 /uL 0-0.6 [facility] Anisocytosis [Presence] in Blood by Light microscopy [facility] ID Date Data Source [id number] 01/20/2021 05:39:01 PM EDT [facility] Name Value Range Interpretation Code Description Data Lesley rce(s) Supporting Document(s) ABO and Rh group [Type] in Blood [facility] Blood group antibody screen [Presence] in Serum or Plasma [facility] Blood bank comment [facility] ID Date Data Source [id number] 01/20/2021 10:40:00 AM EDT [facility] Name Value Range Interpretation Code Description Data Lesley rce(s) Supporting Document(s) Lactate [Mass/volume] in Serum or Plasma 1.1 mmol/L 0.4-2.0 Normal (applies to non-numeric results) [facility] ([facility]) Y/N query for Sepsis Lactate Rule: Y ID Date Data Source [id number] 01/20/2021 09:51:00 AM EDT [facility] ([facility] Name Value Range Interpretation Code Description Data Lesley rce(s) Supporting Document(s) Blood Culture Laboratory test result Normal (applies t o non-numeric results) [facility] ([facility] <content>GRAM STAIN G MELANIE NEGATIVE RODS</content>
<content>DATE POSITIVE DETECTED 01/21/21</content>
<content>GRAM STAIN CALLED BY SILVIA</content>
<content>GRAM STAIN CALLED TO DC GORMAN</content>
<content>DATE GRAM STAIN CALLED 01/21/21</content>
<content>TIME GRAM STAIN CALLED 0601</content>
<content></content>
<content>ORGANISM 1: PSEUDOMONAS AERUGINOSA</content>
<content></content>
<content></content>
<conten t></content>
<content>ORGANISM 1: PSEUDOMONAS AERUGINOSA</content>
<content></content>
<content>PSEUDOMONAS AERUGINOSA: REACTION</content>
<content>GENTAMICIN IV 80mg q8h 2 S</content>
<content>CEFAZOLIN IV 1gm q8h >=64 R</content>
<content>LEVOFLOXACIN IV 500mg qd 1 S</content>
<content>LEVOFLOXACIN PO 250mg qd 1 S</content>
<content>LEVOFLOXACIN PO 500mg qd 1 S</content>
<content> TOBRAMYCIN IV 80mg q8h <=1 S</content>
<content>CEFTAZIDIME IV 1gm q8h 2 S</content>
<content>PIPERACILLIN/TAZOBACTAM IV 2.25 gm q6h <=4 S</content>
<content>MEROPENEM IV 1 gm q8h 1 S</content>
<content>MEROPENEM IV 500 mg q8h 1 S</content>
<content>TIGECYCLINE IV 50mg q12h >=8 R</content>
<content>CEFEPIME IV 1 gm q12h 4 S</content>
<content>CEFEPIME IV 2 gm q12h 4 S</content>
<content></content> ID Date Data Source [id number] 01/20/2021 09:51:00 AM EDT [facility] ([facility] Name Value Range Interpretation Code Description Data Lesley rce(s) Supporting Document(s) Prothrombin Time 16.9 s 12.5-14.3 Above high normal [facility] Inr 1.34 Normal (applies to non-numeric resul ts) [facility] THERAPUTIC HUMAN INR VALUES INDICATIONS NORMAL RANGES PROPHYLAXIS/TREATMENT OF: VENOUS THROMBOSIS 2.0-3.0 PULMONARY EMBOLISM 2.0-3.0 PREVENTION OF SYSTEMIC EMBOLISM FROM: TISSUE HEART VALVES 2.0-3.0 ACUTE MYOCARDIAL INFARCTION 2.0-3.0 VALVULAR HEART DISEASE 2.0-3.0 ATRIAL FIBRILLATION 2.0-3.0 MECHANICAL VALVES(HIGH RISK) 2.5-3.5 RECURRENT MYOCARDIAL INFARCTION 2.5-3.5 Partial Thromboplastin Time 38.3 s 24.2-38.5 Norm al (applies to non-numeric results) [facility] ([facility] ) ID Date Data Source [id number] 01/20/2021 09:41:00 AM EDT [facility] ([facility] Name Value Range Interpretation Code Description Data Lesley rce(s) Supporting Document(s) Influenza A Amplification Laboratory test result Normal (applies to non- numeric results) [facility] Negative results do not preclude influen za or RSV virus infection and should not be used as the sole basis for treatment or other patient management decisions. RSV Amplification Laboratory test result Normal (applies to non-numeric results) [facility] ([facility] ) Negative results do not preclude influen za or RSV virus infection and should not be used as the sole basis for treatment or other patient management decisions. Influenza B Amplification Laboratory test result Normal (applies to non- numeric results) [facility] Negative results do not preclude influen za or RSV virus infection and should not be used as the sole basis for treatment or other patient management decisions. Laboratory test finding (navigational concept) Laboratory test r esult Normal (applies to non-numeric results) [facility] A false negative result may occur if a s pecimen is improperly collected, transported or handled. False [...] pathogens. DISCLAIMER: Testing was performed using the [employer] SARS-CoV-2 test. This test was developed and its performance characteristics determined by [employer]. This test has not been FDA cleared [...] the authorization is terminated or revoked sooner. ID Date Data Source [id number] 01/20/2021 09:41:00 AM EDT [facility] Name Value Range Interpretation Code Description Data Lesley rce(s) Supporting Document(s) SARS coronavirus 2 RNA [Presence] in Res piratory specimen by MARIELLE with probe detection NEGATIVE [facility] This lab was ordered by [facility] a nd reported by [facility]. ID Date Data Source [id number] 01/20/2021 09:39:00 AM EDT [facility] ([facility] Name Value Range Interpretation Code Description Data Lesley rce(s) Supporting Document(s) Appearance, Urine RFX Laboratory test result Nor mal (applies to non-numeric results) [facility] ([facility] ) Specific [place] Ur Auto RFX 1.043 1.002-1.035 Nor mal (applies to non-numeric results) [facility] ([facility] ) PH,Urine RFX 5.0 units 5.0-9.0 Normal (applies to non-numeric res ults) [facility] ([facility] Color, Urine RFX Laboratory test result Normal ( applies to non-numeric results) [facility] ([facility] ) Protein, Urine Auto RFX Laboratory test result Above high normal [facility] ([facility] Glucose, Urine (Ua) Auto RFX Laboratory test result Normal (applies to non- numeric results) [facility] ([facility] ) Urobilinogen, Urine Auto RFX 4.0 mg/dL 0.0-2.0 Above high normal [facility] ([facility] Ketone, Urine Auto RFX Laboratory test result No rmal (applies to non-numeric results) [facility] ([facility] ) Bilirubin, Urine Auto RFX Laboratory test result Above hig h normal [facility] ([facility] Leukocyte Esterase Ur Auto RFX Laboratory test result Normal (applies to non- numeric results) [facility] ([facility] ) Nitrite, Urine Auto RFX Laboratory test result N ormal (applies to non-numeric results) [facility] ([facility] ) Blood, Urine Blood RFX Laboratory test result No rmal (applies to non-numeric results) [facility] ([facility] ) WBC, Urine Auto RFX 3 /HPF 0-3 Normal (applies to non-nume vanesa results) [facility] ([facility] Bacteria, Urine Auto RFX Laboratory test result Normal (applies to non-numeric results) [facility] ([facility] ) RBC, Urine Auto RFX 4 /HPF 0-3 Above high normal [facility] ([facility] Squam Epithelial Cell Ur Aurfx 1 /HPF 0-6 N ormal (applies to non-numeric results) [facility] ([facility] ) Mucus, Urine RFX Laboratory test result Normal ( applies to non-numeric results) [facility] ([facility] ) Hyaline Cast, Urine Auto RFX 0 /LPF 0-1 Normal (appl ies to non-numeric results) [facility] ([facility] ID Date Data Source [id number] 01/20/2021 08:40:00 AM EDT [facility] ([facility] Name Value Range Interpretation Code Description Data Lesley rce(s) Supporting Document(s) Blood Culture Laboratory test result Normal (applies t o non-numeric results) [facility] ([facility] <content>GRAM STAIN G MELANIE NEGATIVE RODS</content>
<content>DATE POSITIVE DETECTED 01/21/21</content>
<content>GRAM STAIN CALLED BY SILVIA</content>
<content>GRAM STAIN CALLED TO DC GORMAN</content>
<content>DATE GRAM STAIN CALLED 01/21/21</content>
<content>TIME GRAM STAIN CALLED 0603</content>
<content></content>
<content>ORGANISM 1: PSEUDOMONAS AERUGINOSA</content>
<content></content>
<content></content>
<conten t></content>
<content>ORGANISM 1: PSEUDOMONAS AERUGINOSA</content>
<content></content>
<content>PSEUDOMONAS AERUGINOSA: REACTION</content>
<content>GENTAMICIN IV 80mg q8h 2 S</content>
<content>CEFAZOLIN IV 1gm q8h >=64 R</content>
<content>LEVOFLOXACIN IV 500mg qd 1 S</content>
<content>LEVOFLOXACIN PO 250mg qd 1 S</content>
<content>LEVOFLOXACIN PO 500mg qd 1 S</content>
<content> TOBRAMYCIN IV 80mg q8h <=1 S</content>
<content>CEFTAZIDIME IV 1gm q8h 2 S</content>
<content>PIPERACILLIN/TAZOBACTAM IV 2.25 gm q6h <=4 S</content>
<content>MEROPENEM IV 1 gm q8h 1 S</content>
<content>MEROPENEM IV 500 mg q8h 1 S</content>
<content>TIGECYCLINE IV 50mg q12h >=8 R</content>
<content>CEFEPIME IV 1 gm q12h 4 S</content>
<content>CEFEPIME IV 2 gm q12h 4 S</content>
<content></content> ID Date Data Source [id number] 01/20/2021 08:40:00 AM EDT [facility] ([facility] Name Value Range Interpretation Code Description Data Lesley rce(s) Supporting Document(s) Natriuretic peptide.B prohormone N-Terminal [Mass/volu me] in Serum or Plasma 1324 pg/mL Above high normal [facility] ([facility] Lipoprotein lipase [Enzymatic activity/volume] in Serum or Plasm a 47 U/L 73-393 Below low normal [facility] ([facility] ) ID Date Data Source [id number] 01/20/2021 08:40:00 AM EDT [facility] ([facility] Name Value Range Interpretation Code Description Data Lesley rce(s) Supporting Document(s) Creatinine For GFR 1.09 mg/dL 0.70-1.30 Normal (applies to non -numeric results) [facility] ([facility] Blood Urea Nitrogen 15 mg/dL 7-18 Normal (applies to non-nume vanesa results) [facility] ([facility] Glucose, Fasting 158 mg/dL 70-100 Above high normal M [facility] ([facility] Glomerular Filtration Rate Laboratory test result Normal (applies to non- numeric results) [facility] ([facility] ) <content>Units are mL/min/1.73 m2</content>
<content></content>
<content>Chronic Kidney Disease Staging per NKF:</content>
<content></content>
<content>Stage I & II GFR >=60 Normal to Mildly Decreased</content>
<content>Stage III GFR 30-59 Moderately Decreased</content>
<content>Stage IV GFR 15-29 Severely Decreased</content>
<content>Stage V GFR <15 Very Little GFR Left</content>
<content>ESRD GFR <15 on [employer]</content>
<content></content> Sodium Level 137 meq/L 136-145 Normal (applies to non-numeric res ults) [facility] Chloride Level 99 meq/L 98-107 Normal (applies to non-numeric r esults) [facility] Potassium Serum 3.9 meq/L 3.5-5.1 Normal (applies to non-numeric results) [facility] Calcium Level 9.1 mg/dL 8.8-10.2 Normal (applies to non-numeric re sults) [facility] Carbon Dioxide Level 30 meq/L 21-32 Normal (applies to non-num corina results) [facility] ([facility] Anion Gap 8 meq/L 8-16 Normal (applies to non-numeric resul ts) [facility] ID Date Data Source [id number] 01/20/2021 08:40:00 AM EDT [facility] Name Value Range Interpretation Code Description Data Lesley rce(s) Supporting Document(s) CPK Creatine Phosphokinase 73 U/L 39-308 Guera l (applies to non-numeric results) [place] ([facility] ) MB/CK Relative Index 1.37 Normal (applies to non-num corina results) [facility] ([facility] <content>DIAGNOSIS CRITERIA</content>
<content>MMB ng/ml Relative Index (RI)</content>
<content>NON-AMI < or = 5 N/A</content>
<content>DOMINGUEZ ZONE > 5 < or = 4</content>
<content>AMI > 5 > 4</content>
<content></content> CK-MB Value Mass Laboratory test result Normal ( applies to non-numeric results) [facility] Troponin I Laboratory test result Normal (applies to non-n umeric results) [facility] ([facility] <content>Troponin I Reference Interval f or [employer]ens [place] LOCI:</content>
<content></content>
<content>99th Percentile= 0.00-0.045 ng/ml</content>
<content></content>
<content>Risk Stratification:</content>
<content><= 0.10 ng/ml Decreased Risk for Adverse Clinical</content>
<content>Events.</content>
<content>0.10-1.50 ng/ml Increased Risk for Adverse Clinical</content>
<content>Events. Evaluation of additional</content>
<content>criterion and/or repeat testing in 2-6</content>
<content>hours is suggested to rule out myocardial</content>
<content>damage.</content>
<content>>= 1.50 ng/ml Indicative of Myocardial Injury.</content>
<content></content> ID Date Data Source [id number] 01/20/2021 08:40:00 AM EDT [facility] ([facility] Name Value Range Interpretation Code Description Data Lesley rce(s) Supporting Document(s) Lactate [Mass/volume] in Serum or Plasma 3.3 mmol/L 0.4-2.0 Above upper panic limits [facility] ([facility] ) Y/N query for Sepsis Lactate Rule: Y ID Date Data Source [id number] 01/20/2021 08:40:00 AM EDT [facility] ([facility] Name Value Range Interpretation Code Description Data Lesley rce(s) Supporting Document(s) White Blood Count 16.7 10 4.0-10.0 Above high normal [facility] ([facility] Hemoglobin 14.8 g/dL 13.5-17.5 Normal (applies to non-numeric resul ts) [facility] ([facility] Red Blood Count 5.20 10 4.30-6.10 Normal (applies to non-numeric results) [facility] ([facility] Hematocrit 46.9 % 42.0-52.0 Normal (applies to non-numeric resul ts) [facility] ([facility] Mean Corpuscular Volume 90.2 fl 80.0-96.0 Normal ( applies to non-numeric results) [facility] ([facility] ) Mean Corpuscular HGB Conc 31.6 g/dL 32.0-36.5 Below low normal [facility] ([facility] Mean Corpuscular Hemoglobin 28.5 pg 27.0-33.0 Norm al (applies to non-numeric results) [facility] ([facility] Red Cell Distribution Width 15.3 % 11.5-14.5 Above high normal [facility] ([facility] Platelet Count, Automated 218 10 150-450 Normal (applies to non-numeric results) [facility] ([facility] ) Neutrophils % 85.8 % 36.0-66.0 Above high normal [facility] ([facility] Dupage % 4.2 % 2.0-8.0 Normal (applies to non-numeric resul ts) [facility] ([facility] Eos % 2.0 % 0.0-3.0 Normal (applies to non-numeric resul ts) [facility] ([facility] Lymph % 7.3 % 24.0-44.0 Below low normal [facility] ( [facility] Baso % 0.2 % 0.0-1.0 Normal (applies to non-numeric resul ts) [facility] ([facility] Immature Granulocyte % 0.5 % 0-3.0 Normal (applies to non-n umeric results) [facility] ([facility] Lymph # 1.2 10 1.5-5.0 Below low normal [facility] ( [facility] Neutrophils # 14.3 10 1.5-8.5 Above high normal [facility] ([facility] Nucleated Red Blood Cell % 0.0 % 0-0 Normal (applies to n on-numeric results) [facility] ([facility] [facility] Dupage # 0.7 10 0.0-0.8 Normal (applies to non-numeric resul ts) [facility] ([facility] Eos # 0.3 10 0.0-0.5 Normal (applies to non-numeric resul ts) [facility] ([facility] Baso # 0.0 10 0.0-0.2 Normal (applies to non-numeric resul ts) [facility] ([facility] ID Date Data Source [id number] 01/20/2021 08:40:00 AM EDT [facility] ([facility] Name Value Range Interpretation Code Description Data Lesley rce(s) Supporting Document(s) Ast/Sgot 401 U/L 7-37 Above high normal [facility] ([facility] Alt/SGPT 486 U/L 12-78 Above high normal [facility] ([facility] Alkaline Phosphatase 421 U/L 45-117 Above high normal [facility] ([facility] Bilirubin,Total 7.7 mg/dL 0.2-1.0 Above high normal ME DENT ([facility] Total Protein 7.5 GM/DL 6.4-8.2 Normal (applies to non-numeric re sults) [facility] ([facility] Bilirubin,Direct 4.7 mg/dL 0.0-0.2 Above high normal M EDENT ([facility] Albumin 3.4 GM/DL 3.2-5.2 Normal (applies to non-numeric resul ts) [facility] ([facility] Albumin/Globulin Ratio 0.8 Normal (applies to non-n umeric results) [facility] ([facility] ID Date Data Source [id number] 12/18/2020 01:11:00 PM EDT [facility] ([facility]) Name Value Range Interpretation Code Description Data Lesley rce(s) Supporting Document(s) Hemoglobin A1c/Hemoglobin.total in Blood 6.0 [facility] ([facility]) Thyroid Stimulating Hormone 1.310 ME DENT ([facility]) ID Date Data Source [id number] 12/18/2020 01:11:00 PM EDT [facility] ([facility]) Name Value Range Interpretation Code Description Data Lesley rce(s) Supporting Document(s) Cholesterol 105 100-199 [facility] ([facility]) Triglycerides 113 [facility] ([facility]iolo gy [facility]) HDL 38 [facility] Cholesterol in LDL [Mass/volume] in Serum or Plasma by calculation 46 [facility] ([facility]) Chol/HDL Ratio Laboratory test result [facility] ([facility]) ID Date Data Source [id number] 12/18/2020 01:11:00 PM EDT [facility] ([facility]) Name Value Range Interpretation Code Description Data Lesley rce(s) Supporting Document(s) Albumin [Mass/volume] in Serum or Plasma 4.1 [facility] ([facility]) Alanine aminotransferase [Enzymatic activity/volume] in Serum or Pl asma 17 [facility] ([facility]) Calcium [Mass/volume] in Serum or Plasma 9.1 [facility] ([facility]) Chloride [Moles/volume] in Serum or Plasma 100 [facility] ([facility]) Carbon dioxide, total [Moles/volume] in Serum or Plasma 23 [facility] ([facility]) Protein [Mass/volume] in Serum or Plasma 7.2 [facility] ([facility]) Alkaline phosphatase [Enzymatic activity/volume] in Serum or Plasma 1 12 [facility] ([facility]) Potassium [Moles/volume] in Serum or Plasma 3.8 [facility] ([facility]) Aspartate aminotransferase [Enzymatic activity/volume] in Serum or Plasma 20 [facility] ([facility]) Sodium 141 [facility] ([facility]iology [facility]) Urea nitrogen [Mass/volume] in Serum or Plasma 17 [facility] ([facility]) Creatinine For GFR 0.95 [facility] (Car diology [facility]) Glucose 127 65-99 [facility] ([facility]iology A [facility]) ID Date Data Source [id number] 12/18/2020 01:11:00 PM EDT [facility] ([facility]i [facility]) Name Value Range Interpretation Code Description Data Lesley rce(s) Supporting Document(s) White Blood Count 15.1 3.4-10.8 [facility] (Card iology [facility]) Red Blood Count 5.05 4.14-5.80 [facility] (Cardio logy [facility]) Platelets 234 150-450 [facility] ([facility]) Hematocrit 44.6 37.5-51.0 [facility] ([facility]) Hemoglobin 14.3 13.0-17.7 [facility] ([facility]) ID Date Data Source [id number] 12/18/2020 10:47:00 AM EDT [facility] ([facility] Name Value Range Interpretation Code Description Data Lesley rce(s) Supporting Document(s) Thyrotropin [Units/volume] in Serum or Plasma 1.310 uIU/mL 0.450-4.50 0 [facility] ([facility] A courtesy copy of this report has been sent to the patient, , ID Date Data Source [id number] 12/18/2020 10:47:00 AM EDT [facility] ([facility] Name Value Range Interpretation Code Description Data Lesley rce(s) Supporting Document(s) Triglyceride [Mass/volume] in Serum or Plasma 113 mg/dL 0-149 [facility] ([facility] A courtesy copy of this report has been sent to the patient, , Cholesterol [Mass/volume] in Serum or Plasma 105 mg/dL 100-199 [facility] ([facility] A courtesy copy of this report has been sent to the patient, , Laboratory test finding (navigational concept) 21 mg/dL 5-40 [facility] ([facility] A courtesy copy of this report has been sent to the patient, , Cholesterol in HDL [Mass/volume] in Serum or Plasma 38 mg/dL Below low normal [facility] ([facility] A courtesy copy of this report has been sent to the patient, , Comment: Laboratory test result [facility] ([facility] A courtesy copy of this report has been sent to the patient, , Laboratory test finding (navigational concept) 46 mg/dL 0-99 [facility] ([facility] A courtesy copy of this report has been sent to the patient, , ID Date Data Source [id number] 12/18/2020 10:47:00 AM EDT [facility] ([facility] Name Value Range Interpretation Code Description Data Lesley rce(s) Supporting Document(s) Glucose [Mass/volume] in Serum or Plasma 127 mg/dL 65-99 Above high normal [facility] ([place] A courtesy copy of this report has been sent to the patient, , Creatinine [Mass/volume] in Serum or Plasma 0.95 mg/dL 0.76-1.27 [facility] ([facility] A courtesy copy of this report has been sent to the patient, , BUN 17 mg/dL 8-27 [facility] ([facility] A courtesy copy of this report has been sent to the patient, , eGFR If Africn Am 95 mL/min/1.73 MED E[facility] ([facility] A courtesy copy of this report has been sent to the patient, , Urea nitrogen/Creatinine [Mass Ratio] in Serum or Plasma 18 1 0-24 [facility] ([facility] A courtesy copy of this report has been sent to the patient, , eGFR If NonAfricn Am 82 mL/min/1.73 [facility] ([facility] A courtesy copy of this report has been sent to the patient, , Sodium [Moles/volume] in Serum or Plasma 141 mmol/L 134-144 [facility] ([facility] A courtesy copy of this report has been sent to the patient, , Potassium [Moles/volume] in Serum or Plasma 3.8 mmol/L 3.5-5.2 [facility] ([facility] A courtesy copy of this report has been sent to the patient, , Chloride [Moles/volume] in Serum or Plasma 100 mmol/L 96-106 [facility] ([facility] A courtesy copy of this report has been sent to the patient, , Calcium [Mass/volume] in Serum or Plasma 9.1 mg/dL 8.6-10.2 [facility] ([facility] A courtesy copy of this report has been sent to the patient, , Carbon dioxide, total [Moles/volume] in Serum or Plasma 23 mmol/L 20 -29 [facility] ([facility] A courtesy copy of this report has been sent to the patient, , Albumin [Mass/volume] in Serum or Plasma 4.1 g/dL 3.8-4.8 [facility] ([facility] A courtesy copy of this report has been sent to the patient, , Protein [Mass/volume] in Serum or Plasma 7.2 g/dL 6.0-8.5 [facility] ([facility] A courtesy copy of this report has been sent to the patient, , Bilirubin.total [Mass/volume] in Serum or Plasma 1.0 mg/dL 0.0-1.2 [facility] ([facility] A courtesy copy of this report has been sent to the patient, , Globulin [Mass/volume] in Serum by calculation 3.1 g/dL 1.5-4.5 [facility] ([facility] A courtesy copy of this report has been sent to the patient, , Albumin/Globulin [Mass Ratio] in Serum or Plasma 1.3 1.2-2.2 [facility] ([facility] A courtesy copy of this report has been sent to the patient, , Alkaline phosphatase [Enzymatic activity/volume] in Serum or Plasma 112 IU/L 39-117 [facility] A courtesy copy of this report has been sent to the patient, , Aspartate aminotransferase [Enzymatic activity/volume] in Serum or Plasma 20 IU/L 0-40 [facility] A courtesy copy of this report has been sent to the patient, , Alanine aminotransferase [Enzymatic activity/volume] in Seru m or Plasma 17 IU/L 0-44 [facility] A courtesy copy of this report has been sent to the patient, , ID Date Data Source [id number] 12/18/2020 10:47:00 AM EDT [facility] ([facility] Name Value Range Interpretation Code Description Data Lesley rce(s) Supporting Document(s) Erythrocytes [#/volume] in Blood by Automated count 5.05 x10E6/uL 4.1 4-5.80 [facility] ([facility] A courtesy copy of this report has been sent to the patient, , Leukocytes [#/volume] in Blood by Automated count 15.1 x10E3/uL 3.4-10.8 Above high normal [facility] ([facility] ) A courtesy copy of this report has been sent to the patient, , Hemoglobin [Mass/volume] in Blood 14.3 g/dL 13.0-17.7 [facility] ([facility] A courtesy copy of this report has been sent to the patient, , Hematocrit [Volume Fraction] of Blood by Automated count 44.6 % 3 7.5-51.0 [facility] ([facility] A courtesy copy of this report has been sent to the patient, , Erythrocyte mean corpuscular volume [Entitic volume] by Auto mated count 88 fL 79-97 [facility] ([facility] A courtesy copy of this report has been sent to the patient, , Erythrocyte mean corpuscular hemoglobin [Entitic mass] by Automated count 28.3 pg 26.6-33.0 [facility] A courtesy copy of this report has been sent to the patient, , Erythrocyte distribution width [Ratio] by Automated count 14.6 % 11.6-15.4 [facility] ([facility] A courtesy copy of this report has been sent to the patient, , Erythrocyte mean corpuscular hemoglobin concentration [Mass/volume] by Automated count 32.1 g/dL 31.5-35.7 [facility] A courtesy copy of this report has been sent to the patient, , Neutrophils 67 % [facility] ([facility] A courtesy copy of this report has been sent to the patient, , Platelets [#/volume] in Blood by Automated count 234 x10E3/uL 150-450 [facility] ([facility] A courtesy copy of this report has been sent to the patient, , Lymphs 18 % [facility] ([facility] A courtesy copy of this report has been sent to the patient, , Monocytes/100 leukocytes in Blood by Automated count 9 % [facility] ([facility] A courtesy copy of this report has been sent to the patient, , Immature cells [#/volume] in Blood Laboratory test result [facility] ([place] A courtesy copy of this report has been sent to the patient, , Eosinophils/100 leukocytes in Blood by Automated count 4 % [facility] ([place] A courtesy copy of this report has been sent to the patient, , Basophils/100 leukocytes in Blood by Automated count 1 % [facility] ([place] A courtesy copy of this report has been sent to the patient, , Neutrophils [#/volume] in Blood by Automated count 10.2 x10E3/uL 1.4-7.0 Above high normal [facility] ([facility] ) A courtesy copy of this report has been sent to the patient, , Monocytes [#/volume] in Blood 1.3 x10E3/uL 0.1-0.9 Above high norm al [facility] ([facility] A courtesy copy of this report has been sent to the patient, , Eosinophils [#/volume] in Blood by Automated count 0.6 x10E3/uL 0.0-0.4 Above high normal [facility] ([facility] ) A courtesy copy of this report has been sent to the patient, , Lymphocytes [#/volume] in Blood 2.7 x10E3/uL 0.7-3.1 [facility] ([facility] A courtesy copy of this report has been sent to the patient, , Immature granulocytes/100 leukocytes in Blood by Automated count 1 % [facility] ([facility] A courtesy copy of this report has been sent to the patient, , Basophils [#/volume] in Blood by Automated count 0.1 x10E3/uL 0.0-0.2 [facility] ([facility] A courtesy copy of this report has been sent to the patient, , Nucleated erythrocytes/100 leukocytes [Ratio] in Blood by Automated count Laboratory test result [facility] ([facility] A courtesy copy of this report has been sent to the patient, , Immature granulocytes [#/volume] in Blood by Automated count 0.1 x10E3/uL 0.0-0.1 [facility] A courtesy copy of this report has been sent to the patient, , Morphology [Interpretation] in Blood Narrative Laboratory test result [facility] ([place] A courtesy copy of this report has been sent to the patient, , ID Date Data Source [id number] 12/18/2020 10:47:00 AM EDT [facility] ([facility] Name Value Range Interpretation Code Description Data Lesley rce(s) Supporting Document(s) Hemoglobin A1c/Hemoglobin.total in Blood 6.0 % 4.8-5.6 Above high normal [facility] ([facility] A courtesy copy of this report has been sent to the patient, , ID Date Data Source [id number] 09/18/2020 11:23:00 AM EST [facility] (Cardi [facility]logy [facility]) Name Value Range Interpretation Code Description Data Lesley rce(s) Supporting Document(s) Thyrotropin [Units/volume] in Serum or Plasma 0.340 uIU/ML 0.358-3.74 0 [facility] ([facility]) ID Date Data Source [id number] 09/18/2020 11:23:00 AM EST [facility] ([facility]) Name Value Range Interpretation Code Description Data Lesley rce(s) Supporting Document(s) Triglycerides Level 127 mg/dL [facility] (Ca rdiology [facility]) HDL Cholesterol 39 mg/dL MED[facility] (Cardio logy [facility][1]) Cholesterol Level 115 mg/dL [facility] (Card iology [facility]) LDL Cholesterol 51 mg/dL [facility] (Cardio logy [facility]) Non-HDL-C 76 mg/dL [facility] Cholesterol Risk Ratio 2.948 [facility] ([facility]) ID Date Data Source [id number] 09/18/2020 11:23:00 AM EST [facility] ([facility] Name Value Range Interpretation Code Description Data Lesley rce(s) Supporting Document(s) Glucose, Fasting 124 mg/dL 70-100 [facility] Creatinine For GFR 1.00 mg/dL 0.70-1.30 [facility] ([facility]) Blood Urea Nitrogen 19 mg/dL 7-18 [facility] ([facility][1]) Glomerular Filtration Rate [facility]) <content>Units are mL/min/1.73 m2</content>
<content></content>
<content>Chronic Kidney Disease Staging per NKF:</content>
<content></content>
<content>Stage I & II GFR >=60 Normal to Mildly Decreased</content>
<content>Stage III GFR 30- 59 Moderately Decreased</content>
<content>Stage IV GFR 15-29 Severely Decreased</content>
<content>Stage V GFR <15 Very Little GFR Left</content>
<content>ESRD GFR <15 on [employer]</content>
<content></content> Sodium Level 139 meq/L 136-145 [facility] (Cardiolog y [facility]) Potassium Serum 4.1 meq/L 3.5-5.1 [facility] Chloride Level 104 meq/L 98-107 [facility] (Cardiol [facility]gy [facility]) Carbon Dioxide Level 29 meq/L 21-32 [facility] (C ardiology [facility]) Anion Gap 6 meq/L 8-16 [facility] ([facility]) Calcium Level 9.2 mg/dL 8.8-10.2 [facility] ([facility]) Ast/Sgot 20 U/L 7-37 [facility] ([facility] [place]) Alt/SGPT 31 U/L 12-78 [facility] ([facility]iology [facility]) Alkaline Phosphatase 136 U/L 45-117 [facility] ([facility]) Bilirubin,Total 1.1 mg/dL 0.2-1.0 [facility] ([facility]) Total Protein 7.4 GM/DL 6.4-8.2 [facility] ([facility]iolo gy [facility]) Albumin 3.3 GM/DL 3.2-5.2 [facility] ([facility]) Albumin/Globulin Ratio 0.8 [facility] ([facility]) ID Date Data Source [id number] 09/18/2020 11:23:00 AM EST [facility] ([facility]i [facility]y [facility]) Name Value Range Interpretation Code Description Data Lesley rce(s) Supporting Document(s) Red Blood Count 4.97 10 4.30-6.10 [facility] ([facility]) White Blood Count 14.7 10 4.0-10.0 [facility] ([facility]) Mean Corpuscular Volume 87.5 fl 80.0-96.0 M EDENT ([facility]) Hemoglobin 13.4 g/dL 13.5-17.5 [facility] ([facility]) Hematocrit 43.5 % 42.0-52.0 [facility] ([facility]) Mean Corpuscular HGB Conc 30.8 g/dL 32.0-36.5 [facility] ([facility]) Mean Corpuscular Hemoglobin 27.0 pg 27.0-33.0 [facility] ([facility]) Red Cell Distribution Width 15.2 % 11.5-14.5 [facility] ([facility]) Nucleated Red Blood Cell % 0.0 % 0-0 MED E[facility] ([facility]) Platelet Count, Automated 251 10 150-450 [facility] ([facility]) ID Date Data Source [id number] 09/18/2020 11:23:00 AM EST [facility] ([facility] Name Value Range Interpretation Code Description Data Lesley rce(s) Supporting Document(s) Thyrotropin [Units/volume] in Serum or Plasma 0.340 uIU/ML 0. 358-3.740 Below low normal [facility] ([facility] ) ID Date Data Source [id number] 09/18/2020 11:23:00 AM EST [facility] ([facility] Name Value Range Interpretation Code Description Data Lesley rce(s) Supporting Document(s) HDL Cholesterol 39 mg/dL Below low normal MED E[facility] ([facility] Triglycerides Level 127 mg/dL Normal (applies to non-nume vanesa results) [facility] ([facility] Cholesterol Level 115 mg/dL Normal (applies to non-numeri c results) [facility] ([facility] Non-HDL-C 76 mg/dL Normal (applies to non-numeric resul ts) [facility] ([facility] LDL Cholesterol 51 mg/dL Normal (applies to non-numeric results) [facility] ([facility] Cholesterol Risk Ratio 2.948 Normal (applies to non-n umeric results) [facility] ([facility] ID Date Data Source [id number] 09/18/2020 11:23:00 AM EST [facility] ([facility] Name Value Range Interpretation Code Description Data Lesley rce(s) Supporting Document(s) Glucose, Fasting 124 mg/dL 70-100 Above high normal M EDENT ([facility] Blood Urea Nitrogen 19 mg/dL 7-18 Above high normal [facility] ([facility] Glomerular Filtration Rate Laboratory test result Normal (applies to non- numeric results) [facility] ([facility] ) <content>Units are mL/min/1.73 m2</content>
<content></content>
<content>Chronic Kidney Disease Staging per NKF:</content>
<content></content>
<content>Stage I & II GFR >=60 Normal to Mildly Decreased</content>
<content>Stage III GFR 30- 59 Moderately Decreased</content>
<content>Stage IV GFR 15-29 Severely Decreased</content>
<content>Stage V GFR <15 Very Little GFR Left</content>
<content>ESRD GFR <15 on [employer]</content>
<content></content> Creatinine For GFR 1.00 mg/dL 0.70-1.30 Normal (applies to non -numeric results) [facility] ([facility] Chloride Level 104 meq/L 98-107 Normal (applies to non-numeric r esults) [facility] ([facility] Potassium Serum 4.1 meq/L 3.5-5.1 Normal (applies to non-numeric results) [facility] ([facility] Sodium Level 139 meq/L 136-145 Normal (applies to non-numeric res ults) [facility] ([facility] Anion Gap 6 meq/L 8-16 Below low normal [facility] ( [facility] Carbon Dioxide Level 29 meq/L 21-32 Normal (applies to non-num corina results) [facility] ([facility] Calcium Level 9.2 mg/dL 8.8-10.2 Normal (applies to non-numeric re sults) [facility] ([facility] Alt/SGPT 31 U/L 12-78 Normal (applies to non-numeric resul ts) [facility] ([facility] Ast/Sgot 20 U/L 7-37 Normal (applies to non-numeric resul ts) [facility] ([facility] Bilirubin,Total 1.1 mg/dL 0.2-1.0 Above high normal ME [facility] ([facility] Total Protein 7.4 GM/DL 6.4-8.2 Normal (applies to non-numeric re sults) [facility] ([facility] Alkaline Phosphatase 136 U/L 45-117 Above high normal [facility] ([facility] Albumin/Globulin Ratio 0.8 Normal (applies to non-n umeric results) [facility] ([facility] Albumin 3.3 GM/DL 3.2-5.2 Normal (applies to non-numeric resul ts) [facility] ([facility] ID Date Data Source [id number] 09/18/2020 11:23:00 AM EST [facility] ([facility] Name Value Range Interpretation Code Description Data Lesley rce(s) Supporting Document(s) Hemoglobin 13.4 g/dL 13.5-17.5 Below low normal [facility] ( [facility] Red Blood Count 4.97 10 4.30-6.10 Normal (applies to non-numeric results) [facility] ([facility] White Blood Count 14.7 10 4.0-10.0 Above high normal [facility] ([facility] Mean Corpuscular Volume 87.5 fl 80.0-96.0 Normal ( applies to non-numeric results) [facility] ([facility] ) Hematocrit 43.5 % 42.0-52.0 Normal (applies to non-numeric resul ts) [facility] ([facility] Mean Corpuscular Hemoglobin 27.0 pg 27.0-33.0 Norm al (applies to non-numeric results) [facility] ([facility] ) Mean Corpuscular HGB Conc 30.8 g/dL 32.0-36.5 Below low normal [facility] ([facility] Platelet Count, Automated 251 10 150-450 Normal (applies to non-numeric results) [facility] ([facility] ) Red Cell Distribution Width 15.2 % 11.5-14.5 Above high normal [facility] ([facility] Nucleated Red Blood Cell % 0.0 % 0-0 Normal (applies to n on-numeric results) [facility] ([facility] ID Date Data Source [id number] 08/20/2020 07:06:00 PM EST [facility] ([facility] Name Value Range Interpretation Code Description Data Lesley rce(s) Supporting Document(s) Laboratory test finding (navigational concept) Laboratory test result [facility] ([facility] This lab was ordered by [facility] a nd reported by [facility]. ID Date Data Source [id number] 08/20/2020 07:06:00 PM EST [facility] ([facility] Name Value Range Interpretation Code Description Data Lesley rce(s) Supporting Document(s) Respiratory Panel Laboratory test result [facility] ([facility] This respiratory PCR panel detects Influ jeaneth A H1, H3 and 2009 H1 viruses, Influenza B virus, Resp iratory Syncytial Virus, Human metapneumovirus, Parainfluenza virus 1, 2, 3 and 4, Adenovirus, Rhinovirus/Enterovirus, Coronavirus HKU1, NL63, OC43, 229E and SARS-CoV-2 (COVID 19), Bordetella pertussis, Bordetella parapertussis, Mycoplasma pneumoniae and Chlamydia pneumoniae. NEGATIVE by MULTIPLEXED NUCLEIC ACID PCR SARS-CoV-2 (COVID 19) NEGATIVE - SARS-CoV-2 (COVID19) ID Date Data Source [id number] 08/20/2020 05:44:00 PM EST [facility] ([facility] Name Value Range Interpretation Code Description Data Lesley rce(s) Supporting Document(s) Glucose, Fasting 117 mg/dL 70-100 Above high normal M [facility] ([facility] Blood Urea Nitrogen 25 mg/dL 7-18 Above high normal [facility] ([facility] Creatinine For GFR 1.02 mg/dL 0.70-1.30 Normal (applies to non -numeric results) [facility] ([facility] Glomerular Filtration Rate Laboratory test result Normal (applies to non- numeric results) [facility] ([facility] ) <content>Units are mL/min/1.73 m2</content>
<content></content>
<content>Chronic Kidney Disease Staging per NKF:</content>
<content></content>
<content>Stage I & II GFR >=60 Normal to Mildly Decreased</content>
<content>Stage III GFR 30- 59 Moderately Decreased</content>
<content>Stage IV GFR 15-29 Severely Decreased</content>
<content>Stage V GFR <15 Very Little GFR Left</content>
<content>ESRD GFR <15 on [employer]</content>
<content></content> Potassium Serum 3.8 meq/L 3.5-5.1 Normal (applies to non-numeric results) [facility] ([facility] Sodium Level 142 meq/L 136-145 Normal (applies to non-numeric res ults) [facility] Carbon Dioxide Level 27 meq/L 21-32 Normal (applies to non-num corina results) [facility] ([facility] Chloride Level 106 meq/L 98-107 Normal (applies to non-numeric r esults) [facility] ([facility] Anion Gap 9 meq/L 8-16 Normal (applies to non-numeric resul ts) [facility] ([facility] Calcium Level 9.1 mg/dL 8.8-10.2 Normal (applies to non-numeric re sults) [facility] ([facility] ID Date Data Source [id number] 08/20/2020 05:44:00 PM EST [facility] ([facility] Name Value Range Interpretation Code Description Data Lesley rce(s) Supporting Document(s) Natriuretic peptide.B prohormone N-Terminal [Mass/volu me] in Serum or Plasma 983 pg/mL Above high normal [facility] ([facility] Thyrotropin [Units/volume] in Serum or Plasma 0.674 uIU/ML 0. 358-3.740 Normal (applies to non-numeric results) [facility] Thyroxine (T4) [Mass/volume] in Serum or Plasma 11.2 ug/dL 4.5-12.0 Normal (applies to non-numeric results) [facility] ID Date Data Source [id number] 08/20/2020 05:44:00 PM EST [facility] ([facility] Name Value Range Interpretation Code Description Data Lesley rce(s) Supporting Document(s) Ast/Sgot 21 U/L 7-37 Normal (applies to non-numeric resul ts) [facility] ([facility] Alt/SGPT 28 U/L 12-78 Normal (applies to non-numeric resul ts) [facility] ([facility] Bilirubin,Total 0.7 mg/dL 0.2-1.0 Normal (applies to non-numeric results) [facility] ([facility] Alkaline Phosphatase 140 U/L 45-117 Above high normal [facility] ([facility] Bilirubin,Direct 0.2 mg/dL 0.0-0.2 Normal (applies to non-numeric results) [facility] ([facility] Total Protein 7.1 GM/DL 6.4-8.2 Normal (applies to non-numeric re sults) [facility] ([facility] Albumin/Globulin Ratio 0.8 Normal (applies to non-n umeric results) [facility] ([facility] Albumin 3.2 GM/DL 3.2-5.2 Normal (applies to non-numeric resul ts) [facility] ([facility] ID Date Data Source [id number] 08/20/2020 05:44:00 PM EST [facility] ([facility] Name Value Range Interpretation Code Description Data Lesley rce(s) Supporting Document(s) Lactate [Mass/volume] in Serum or Plasma 1.9 mmol/L 0.4-2.0 Normal (applies to non-numeric results) [facility] ([facility]) Y/N query for Sepsis Lactate Rule: Y ID Date Data Source [id number] 08/20/2020 05:44:00 PM EST [facility] ([facility] Name Value Range Interpretation Code Description Data Lesley rce(s) Supporting Document(s) White Blood Count 15.7 10 4.0-10.0 Above high normal [facility] ([facility] Hemoglobin 13.9 g/dL 13.5-17.5 Normal (applies to non-numeric resul ts) [facility] ([facility] Red Blood Count 4.99 10 4.30-6.10 Normal (applies to non-numeric results) [facility] ([facility] Mean Corpuscular Volume 88.8 fl 80.0-96.0 Normal ( applies to non-numeric results) [facility] ([facility] ) Hematocrit 44.3 % 42.0-52.0 Normal (applies to non-numeric resul ts) [facility] ([facility] Mean Corpuscular Hemoglobin 27.9 pg 27.0-33.0 Norm al (applies to non-numeric results) [facility] ([facility] ) Red Cell Distribution Width 13.7 % 11.5-14.5 Norm al (applies to non-numeric results) [facility] ([facility] ) Mean Corpuscular HGB Conc 31.4 g/dL 32.0-36.5 Below low normal [facility] ([facility] Platelet Count, Automated 273 10 150-450 Normal (applies to non-numeric results) [facility] ([facility] ) Neutrophils % 74.5 % 36.0-66.0 Above high normal MEDE NT ([facility] Dupage % 6.1 % 0.0-5.0 Above high normal [facility] ([facility] Lymph % 17.2 % 24.0-44.0 Below low normal [facility] ( [facility] Eos % 0.8 % 0.0-3.0 Normal (applies to non-numeric resul ts) [facility] ([facility] Baso % 0.3 % 0.0-1.0 Normal (applies to non-numeric resul ts) [facility] ([facility] Nucleated Red Blood Cell % 0.0 % 0-0 Normal (applies to n on-numeric results) [facility] ([facility] Immature Granulocyte % 1.1 % 0-3.0 Normal (applies to non-n umeric results) [facility] ([facility] Lymph # 2.7 10 1.5-5.0 Normal (applies to non-numeric resul ts) [facility] ([facility] Neutrophils # 11.7 10 1.5-8.5 Above high normal MEDE NT ([facility] Dupage # 1.0 10 0.0-0.8 Above high normal [facility] ([facility] Eos # 0.1 10 0.0-0.5 Normal (applies to non-numeric resul ts) [facility] ([facility] Baso # 0.0 10 0.0-0.2 Normal (applies to non-numeric resul ts) [facility] ([facility] ID Date Data Source [id number] 08/20/2020 05:14:00 PM EST [facility] ([facility] Name Value Range Interpretation Code Description Data Lesley rce(s) Supporting Document(s) Laboratory test finding (navigational concept) 7.438 units 7 .350-7.450 Normal (applies to non-numeric results) [facility] ([facility] Laboratory test finding (navigational concept) 86.0 MMHG 8 0-105 Normal (applies to non-numeric results) [facility] ([facility] Laboratory test finding (navigational concept) 37.8 MMHG 3 5.0-45.0 Normal (applies to non-numeric results) [facility] ([facility] Laboratory test finding (navigational concept) 25.5 mmol/L 2 2.0-26.0 Normal (applies to non-numeric results) [facility] ([facility] Laboratory test finding (navigational concept) 27.0 mmol/L 2 3.0-27.0 Normal (applies to non-numeric results) [facility] Laboratory test finding (navigational concept) 1.0 mmol/L Normal (applies to non-numeric results) [facility] ([facility] Laboratory test finding (navigational concept) 97 % 9 5-98 Normal (applies to non-numeric results) [facility] ([facility] ID Date Data Source [id number] 08/20/2020 02:58:00 PM EST [facility] ([facility]) Name Value Range Interpretation Code Description Data Lesley rce(s) Supporting Document(s) Chest X-Ray 2 View PA And Lat Laboratory test result [facility] ([facility]) ID Date Data Source [id number] 08/20/2020 02:48:00 PM EST [facility] ([facility]) Name Value Range Interpretation Code Description Data Lesley rce(s) Supporting Document(s) PDFReport Laboratory test result [facility] ([facility]) FVC-Pred 5.41 L [facility] ([facility]) FVC-Pre 3.87 L [facility] ([facility]) FVC-%Pred-Pre 71 L [facility] ([facility]) FVC-LLN 4.33 L [facility] ([facility]) Fev1-Pred 4.02 L [facility] ([facility]) Fev1-LLN 3.12 L [facility] ([facility]) Fev1-Pre 3.10 L [facility] ([facility]) Fev1-%Pred-Pre 76 L [facility] ([facility]) Fev6-Pred 5.15 L [facility] ([facility]) Fev6-Pre 3.87 L [facility] ([facility]) Fev6-%Pred-Pre 75 L [facility] ([facility]) Xkf3bxp-Ikdo 74 % [facility] ([facility]) Fev6-LLN 4.10 L [facility] ([facility]) Thd5xlq-Vzl 80 % [facility] ([facility]) Lfk5tdb-Aijz 95 % [facility] ([facility]) Eib8uuu-%Pred-Pre 107 % [facility] ([facility]) Zsv9wwu-HGP 65 % [facility] ([facility]) Dcs7hns-%Pred-Pre 105 % [facility] ([facility]) Fvk3foi-Oho 100 % [facility] ([facility]) FEFMax-Pred 9.81 L/E/sec [facility] ([facility]) FEFMax-%Pred-Pre 79 L/E/sec [facility] ([facility]) FEFMax-Pre 7.80 L/E/sec [facility] ([facility]) Lfh3658-Ans 3.11 L/E/sec [facility] ([facility]) Jlt3707-Ljcu 3.11 L/E/sec [facility] ([facility]) FEFMax-LLN 7.15 L/E/sec [facility] ([facility]) Qpr8492-%Pred-Pre 100 L/E/sec [facility] ([facility]) Vwq4546-LJF 1.27 L/E/sec [facility] ([facility]) ExpTime-Pre 6.26 sec [facility] ([facility]) Ymd2hsr5-Tmby 78 % [facility] ([facility]) Vjc8qsw0-Qgk 80 % [facility] ([facility]) Wxf0rzc2-%Pred-Pre 102 % [facility] ([facility]) Syp2eud2-CYH 69 % [facility] ([facility]) ID Date Data Source 08/20/2020 12:00:00 AM EST [facility] Patient Name: JANES [id number] [facility] 1955[facility] [id number] Date of Exam: 08/20/2020#: Fax: [phone] EXAM: CHEST (2 VIEW) X-RAYCLINICAL INFORMATION: Dyspnea x 1 week.Two views.The latest prior for comparison, a portable exam 05/09/2020.There are patchy bilateral air space opacities which appear to haveincreased from the prior exam, however, the examinations are markedlytechnically different.There is cardiomegaly. Note is again made of previous median sternotomy.There is a dual chamber bipolar pacemaker. Not all of the leads can beviewed in total. There is mild bilateral CP angle blunting. There is nosignificant change in the appearance of the osseous structures.IMPRESSION:1. Bilateral air space opacities. Pneumonia/pulmonary edema. Correlateclinically.2. Cardiomegaly.3. Probable small bilateral pleural effusions.4. Probably underlying parenchymal fibrotic change. Correlate clinically.MABEL Edwards/Luiz you for referring JANES CATHERINE to our office. Electronically Signed - CHEYENNE GOSS DO 08/20/20 16:40 Name Value Range Interpretation Code Description Data Lesley rce(s) Supporting Document(s) ID Date Data Source [id number] 06/20/2020 02:03:00 PM EDT [facility] ([facility] Name Value Range Interpretation Code Description Data Lesley rce(s) Supporting Document(s) Albumin [Mass/volume] in Serum or Plasma 4.0 [facility] ([facility]) Alanine aminotransferase [Enzymatic activity/volume] in Serum or Pl asma 28 [facility] ([facility]) Chloride [Moles/volume] in Serum or Plasma 101 [facility] ([facility]) Carbon dioxide, total [Moles/volume] in Serum or Plasma 23 [facility] ([facility]) Calcium [Mass/volume] in Serum or Plasma 8.8 [facility] ([facility]) Potassium [Moles/volume] in Serum or Plasma 3.8 [facility] ([facility]) Alkaline phosphatase [Enzymatic activity/volume] in Serum or Plasma 1 03 [facility] ([facility]) Protein [Mass/volume] in Serum or Plasma 6.4 [facility] ([facility]) Urea nitrogen [Mass/volume] in Serum or Plasma 19 [facility] ([facility]) Aspartate aminotransferase [Enzymatic activity/volume] in Serum or Plasma 27 [facility] ([facility] Sodium 139 [facility] ([facility] Glucose 134 65-99 [facility]) Creatinine For GFR 0.84 [facility] ([facility]) ID Date Data Source [id number] 06/20/2020 02:03:00 PM EDT [facility] ([facility] Name Value Range Interpretation Code Description Data Lesley rce(s) Supporting Document(s) White Blood Count 13.6 3.4-10.8 [facility] ([facility]) Red Blood Count 4.50 4.14-5.80 [facility] ([facility]) Hemoglobin 13.0 13.0-17.7 [facility] ([facility]) Platelets 261 150-450 [facility] ([facility]) Hematocrit 39.7 37.5-51.0 [facility] ([facility]) ID Date Data Source [id number] 06/20/2020 02:03:00 PM EDT [facility] ([facility]) Name Value Range Interpretation Code Description Data Lesley rce(s) Supporting Document(s) Thyroid Stimulating Hormone 0.292 ME DENT ([facility]) ID Date Data Source [id number] 06/20/2020 02:03:00 PM EDT [facility] ([facility]) Name Value Range Interpretation Code Description Data Lesley rce(s) Supporting Document(s) Triglycerides 126 [facility] ([facility]) HDL 43 [facility] ([facility] Cholesterol 121 100-199 [facility] ([facility]) Cholesterol in LDL [Mass/volume] in Serum or Plasma by calculation 56 [facility] ([facility]) Chol/HDL Ratio Laboratory test result [facility] ([facility]) ID Date Data Source [id number] 06/20/2020 11:16:00 AM EDT [facility] ([facility] Name Value Range Interpretation Code Description Data Lesley rce(s) Supporting Document(s) Triglyceride [Mass/volume] in Serum or Plasma 126 mg/dL 0-149 [facility] ([facility] A courtesy copy of this report has been sent to the patient, , Cholesterol [Mass/volume] in Serum or Plasma 121 mg/dL 100-199 [facility] ([facility] A courtesy copy of this report has been sent to the patient, , Laboratory test finding (navigational concept) 56 mg/dL 0-99 [facility] ([facility] A courtesy copy of this report has been sent to the patient, , Laboratory test finding (navigational concept) 22 mg/dL 5-40 [facility] ([facility] A courtesy copy of this report has been sent to the patient, , Cholesterol in HDL [Mass/volume] in Serum or Plasma 43 mg/dL [facility] ([facility] A courtesy copy of this report has been sent to the patient, , Comment: Laboratory test result [facility] ([facility] A courtesy copy of this report has been sent to the patient, , ID Date Data Source [id number] 06/20/2020 11:16:00 AM EDT [facility] ([facility] Name Value Range Interpretation Code Description Data Lesley rce(s) Supporting Document(s) Glucose [Mass/volume] in Serum or Plasma 134 mg/dL 65-99 Above high normal [facility] ([facility] A courtesy copy of this report has been sent to the patient, , BUN 19 mg/dL 8-27 [facility] ([facility] A courtesy copy of this report has been sent to the patient, , Creatinine [Mass/volume] in Serum or Plasma 0.84 mg/dL 0.76-1.27 [facility] ([facility] A courtesy copy of this report has been sent to the patient, , eGFR If Africn Am 105 mL/min/1.73 ME DENT ([facility] A courtesy copy of this report has been sent to the patient, , eGFR If NonAfricn Am 91 mL/min/1.73 [facility] ([facility] A courtesy copy of this report has been sent to the patient, , Potassium [Moles/volume] in Serum or Plasma 3.8 mmol/L 3.5-5.2 [facility] ([facility] A courtesy copy of this report has been sent to the patient, , Sodium [Moles/volume] in Serum or Plasma 139 mmol/L 134-144 [facility] ([facility] A courtesy copy of this report has been sent to the patient, , Urea nitrogen/Creatinine [Mass Ratio] in Serum or Plasma 23 1 0-24 [facility] ([facility] A courtesy copy of this report has been sent to the patient, , Calcium [Mass/volume] in Serum or Plasma 8.8 mg/dL 8.6-10.2 [facility] ([facility] A courtesy copy of this report has been sent to the patient, , Carbon dioxide, total [Moles/volume] in Serum or Plasma 23 mmol/L 20 -29 [facility] ([facility] A courtesy copy of this report has been sent to the patient, , Chloride [Moles/volume] in Serum or Plasma 101 mmol/L 96-106 [facility] ([facility] A courtesy copy of this report has been sent to the patient, , Albumin [Mass/volume] in Serum or Plasma 4.0 g/dL 3.8-4.8 [facility] ([facility] A courtesy copy of this report has been sent to the patient, , Globulin [Mass/volume] in Serum by calculation 2.4 g/dL 1.5-4.5 [facility] ([facility] A courtesy copy of this report has been sent to the patient, , Albumin/Globulin [Mass Ratio] in Serum or Plasma 1.7 1.2-2.2 [facility] ([facility] A courtesy copy of this report has been sent to the patient, , Protein [Mass/volume] in Serum or Plasma 6.4 g/dL 6.0-8.5 [facility] ([facility] A courtesy copy of this report has been sent to the patient, , Alkaline phosphatase [Enzymatic activity/volume] in Serum or Plasma 103 IU/L 39-117 [facility] A courtesy copy of this report has been sent to the patient, , Bilirubin.total [Mass/volume] in Serum or Plasma 0.6 mg/dL 0.0-1.2 [facility] ([facility] A courtesy copy of this report has been sent to the patient, , Aspartate aminotransferase [Enzymatic activity/volume] in Serum or Plasma 27 IU/L 0-40 [facility] A courtesy copy of this report has been sent to the patient, , Alanine aminotransferase [Enzymatic activity/volume] in Seru m or Plasma 28 IU/L 0-44 [facility] ([facility] A courtesy copy of this report has been sent to the patient, , ID Date Data Source [id number] 06/20/2020 11:16:00 AM EDT [facility] ([facility] Name Value Range Interpretation Code Description Data Lesley rce(s) Supporting Document(s) Leukocytes [#/volume] in Blood by Automated count 13.6 x10E3/uL 3.4-10.8 Above high normal [facility] ([facility] A courtesy copy of this report has been sent to the patient, , Hematocrit [Volume Fraction] of Blood by Automated count 39.7 % 3 7.5-51.0 [facility] ([facility] A courtesy copy of this report has been sent to the patient, , Hemoglobin [Mass/volume] in Blood 13.0 g/dL 13.0-17.7 [facility] ([facility] A courtesy copy of this report has been sent to the patient, , Erythrocytes [#/volume] in Blood by Automated count 4.50 x10E6/uL 4.1 4-5.80 [facility] ([facility] A courtesy copy of this report has been sent to the patient, , Erythrocyte distribution width [Ratio] by Automated count 14.5 % 11.6-15.4 [facility] ([facility] A courtesy copy of this report has been sent to the patient, , Erythrocyte mean corpuscular hemoglobin [Entitic mass] by Automated count 28.9 pg 26.6-33.0 MEDENT ([facility] A courtesy copy of this report has been sent to the patient, , Erythrocyte mean corpuscular hemoglobin concentration [Mass/volume] by Automated count 32.7 g/dL 31.5-35.7 MEDENT ([facility]rem [facility] A courtesy copy of this report has been sent to the patient, , Erythrocyte mean corpuscular volume [Entitic volume] by Auto mated count 88 fL 79-97 [facility] A courtesy copy of this report has been sent to the patient, , Platelets [#/volume] in Blood by Automated count 261 x10E3/uL 150-450 MEDENT ([facility] A courtesy copy of this report has been sent to the patient, , Neutrophils 72 % MEDENT ([facility] A courtesy copy of this report has been sent to the patient, , Lymphs 17 % MEDENT ([facility] A courtesy copy of this report has been sent to the patient, , Eosinophils/100 leukocytes in Blood by Automated count 2 % MEDENT ([facility] A courtesy copy of this report has been sent to the patient, , Basophils/100 leukocytes in Blood by Automated count 1 % MEDENT ([facility] A courtesy copy of this report has been sent to the patient, , Monocytes/100 leukocytes in Blood by Automated count 7 % MEDENT ([facility] A courtesy copy of this report has been sent to the patient, , Neutrophils [#/volume] in Blood by Automated count 10.0 x10E3/uL 1.4-7.0 Above high normal MEDENT ([facility] ) A courtesy copy of this report has been sent to the patient, , Immature cells [#/volume] in Blood Laboratory test result MEDENT ([facility] A courtesy copy of this report has been sent to the patient, , Lymphocytes [#/volume] in Blood 2.2 x10E3/uL 0.7-3.1 MEDENT ([facility] A courtesy copy of this report has been sent to the patient, , Basophils [#/volume] in Blood by Automated count 0.1 x10E3/uL 0.0-0.2 MEDENT ([facility] A courtesy copy of this report has been sent to the patient, , Eosinophils [#/volume] in Blood by Automated count 0.3 x10E3/uL 0.0-0 .4 MEDENT ([facility] A courtesy copy of this report has been sent to the patient, , Monocytes [#/volume] in Blood 0.9 x10E3/uL 0.1-0.9 MEDENT ([facility] A courtesy copy of this report has been sent to the patient, , Nucleated erythrocytes/100 leukocytes [Ratio] in Blood by Automated count Laboratory test result MEDENT ([facility] A courtesy copy of this report has been sent to the patient, , Immature granulocytes/100 leukocytes in Blood by Automated count 1 % MEDENT ([facility] A courtesy copy of this report has been sent to the patient, , Immature granulocytes [#/volume] in Blood by Automated count 0.1 x10E3/uL 0.0-0.1 [facility] ([facility] A courtesy copy of this report has been sent to the patient, , Morphology [Interpretation] in Blood Narrative Laboratory test result MEDENT ([facility] A courtesy copy of this report has been sent to the patient, , ID Date Data Source [id number] 06/20/2020 11:16:00 AM EDT MEDENT ([facility] Name Value Range Interpretation Code Description Data Lesley rce(s) Supporting Document(s) Thyrotropin [Units/volume] in Serum or Plasma 0.292 uIU/mL 0. 450-4.500 Below low normal MEDENT ([facility] ) A courtesy copy of this report has been sent to the patient, , Procedure Social History Code Duration Value Status Description Data Source(s ) Smoking 07/17/2021 12:00:00 AM EDT Patient is a former smoker completed Patient is a former smoker MEDENT ([facility]) Smoking 07/02/2021 12:00:00 AM EDT Former Smoker completed Former Smoker eCW1 ([facility]) Smoking 07/02/2021 12:00:00 AM EDT Former Smoker completed Former Smoker eCW1 ([facility]) Smoking 07/02/2021 12:00:00 AM EDT Former Smoker completed Former Smoker eCW1 ([facility]) Smoking 06/04/2021 12:00:00 AM EDT Former Smoker completed Former Smoker eCW1 ([facility]) Smoking 06/04/2021 12:00:00 AM EDT Former Smoker completed Former Smoker eCW1 ([facility]) Smoking 06/04/2021 12:00:00 AM EDT Former Smoker completed Former Smoker eCW1 ([facility]) Smoking 06/04/2021 12:00:00 AM EDT Former Smoker completed Former Smoker eCW1 ([facility]) Alcohol intake 05/02/2021 12:00:00 AM EDT Current non-d chantell of alcohol (finding) completed Current non-drinker of alcohol (finding) [facility] Alcohol intake 04/26/2021 12:00:00 AM EDT Current non-d chantell of alcohol (finding) completed Current non-drinker of alcohol (finding) [facility] Smoking 04/16/2021 12:00:00 AM EDT Former Smoker completed Former Smoker eCW1 ([facility]) Smoking 04/16/2021 12:00:00 AM EDT Former Smoker completed Former Smoker eCW1 ([facility]) Smoking 04/16/2021 12:00:00 AM EDT Former Smoker completed Former Smoker eCW1 ([facility]) Smoking 04/16/2021 12:00:00 AM EDT Former Smoker completed Former Smoker eCW1 ([facility]) Smoking 04/16/2021 12:00:00 AM EDT Former Smoker completed Former Smoker eCW1 ([facility]) Smoking 04/16/2021 12:00:00 AM EDT Former Smoker completed Former Smoker eCW1 ([facility]) Smoking 04/16/2021 12:00:00 AM EDT Former Smoker completed Former Smoker eCW1 ([facility]) Smoking 04/16/2021 12:00:00 AM EDT Former Smoker completed Former Smoker eCW1 ([facility]) Smoking 03/19/2021 12:00:00 AM EDT Former Smoker completed Former Smoker eCW1 ([facility]) Smoking 03/19/2021 12:00:00 AM EDT Former Smoker completed Former Smoker eCW1 ([facility]) Smoking 03/05/2021 12:00:00 AM EDT Former Smoker completed Former Smoker eCW1 ([facility]) Smoking 03/05/2021 12:00:00 AM EDT Former Smoker completed Former Smoker eCW1 ([facility]) Smoking 01/20/2021 12:00:00 AM EDT Former smoker completed Former smoker [facility] Smoking 10/01/2020 12:00:00 AM EST Patient is a former smoker completed Patient is a former smoker MEDENT ([facility], ) Smoking 10/01/2020 12:00:00 AM EST Former Smoker completed Former Smoker eCW1 ([facility]) Smoking 10/01/2020 12:00:00 AM EST Former Smoker completed Former Smoker eCW1 ([facility]) Smoking 10/01/2020 12:00:00 AM EST Former Smoker completed Former Smoker eCW1 ([facility]) Smoking 09/05/2020 12:00:00 AM EST Former Smoker completed Former Smoker eCW1 ([facility]) Smoking 09/05/2020 12:00:00 AM EST Former Smoker completed Former Smoker eCW1 ([facility]) Smoking 08/27/2020 12:00:00 AM EST Former Smoker completed Former Smoker eCW1 ([facility]) Smoking 08/27/2020 12:00:00 AM EST Former Smoker completed Former Smoker eCW1 ([facility]) Smoking 08/15/2020 12:00:00 AM EST Former Smoker completed Former Smoker eCW1 ([facility]) Smoking 08/15/2020 12:00:00 AM EST Former Smoker completed Former Smoker eCW1 ([facility]) Smoking 08/15/2020 12:00:00 AM EST Former Smoker completed Former Smoker eCW1 ([facility]) Smoking 08/01/2020 12:00:00 AM EST Former Smoker completed Former Smoker eCW1 ([facility]) Smoking 07/13/2020 12:00:00 AM EDT Former Smoker completed Former Smoker eCW1 ([facility]) Smoking 07/13/2020 12:00:00 AM EDT Former Smoker completed Former Smoker eCW1 ([facility]) Smoking 07/13/2020 12:00:00 AM EDT Former Smoker completed Former Smoker eCW1 ([facility]) Vital Signs ID Date Data Source UNK Name Value Range Interpretation Code Description Data Source(s) Body weight 384.00 [lb_av] 384.00 [lb_av] DUANE T ([facility]) Body height 75 [in_i] 75 [in_i] ROMÁN ([facility]) 6'3" Body mass index (BMI) [Ratio] 48.0 kg/m2 48.0 k g/m2 MEDENT ([facility]) Heart rate 80 /min 80 /min MEDENT ([facility]) Regular Respiratory rate 16 /min 16 /min MEDENT ( [facility]) Systolic blood pressure 116 mm[Hg] 116 mm[Hg] M EDENT ([facility]) sitting, large cuff Diastolic blood pressure 68 mm[Hg] 68 mm[Hg] MEDENT ([facility]) sitting, large cuff Systolic blood pressure 114 mm[Hg] 114 mm[Hg] M EDENT ([facility]) sitting Diastolic blood pressure 68 mm[Hg] 68 mm[Hg] MEDENT ([facility]) sitting Body weight 384 [lb_av] 384 [lb_av] eCW1 ([facility]) Body weight 174.18 kg 174.18 kg eCW1 ([facility]) Body height 75 [in_i] 75 [in_i] eCW1 ([facility]) Body mass index (BMI) [Ratio] 47.99 kg/m2 47.99 kg/m2 W1 ([facility]) Heart rate 71 /min 71 /min eCW1 ([facility]) Respiratory rate 22 /min 22 /min eCW1 ([facility]) Body temperature 98.2 [degF] 98.2 [degF] eCW1 ( [facility]) Systolic blood pressure 128 mm[Hg] 128 mm[Hg] e CW1 ([facility]) Diastolic blood pressure 74 mm[Hg] 74 mm[Hg] eCW1 ([facility]) Oxygen saturation in Arterial blood by Pulse oximetry 985 % 985 % MEDENT ([facility], ) Heart rate 80 /min 80 /min MEDENT ([facility], ) Body height 75 [in_i] 75 [in_i] MEDENT ([facility], ) 6'3" Body weight 386.00 [lb_av] 386.00 [lb_av] MEDEN T ([facility], ) Body mass index (BMI) [Ratio] 48.2 kg/m2 48.2 k g/m2 MEDENT ([facility]) [place] body weight 196 [lb_av] 196 [lb_av] MEDEN T ([facility]) Body weight 175.090 kg 175.090 kg MEDENT ([facility]) Body surface area Derived from formula 2.90 m2 2.90 m2 MEDENT ([facility]) Systolic blood pressure 130 mm[Hg] 130 mm[Hg] M EDENT ([facility]) Diastolic blood pressure 70 mm[Hg] 70 mm[Hg] MEDENT ([facility]) Body weight 378 [lb_av] 378 [lb_av] eCW1 ([facility]) Body weight 171.46 kg 171.46 kg W1 ([facility]) Body height 75 [in_i] 75 [in_i] eCW1 ([facility]) Body mass index (BMI) [Ratio] 47.24 kg/m2 47.24 kg/m2 W1 ([facility]) Heart rate 88 /min 88 /min eCW1 ([facility]) Respiratory rate 24 /min 24 /min eCW1 ([facility]) Body temperature 98.1 [degF] 98.1 [degF] eCW1 ( [facility]) Systolic blood pressure 112 mm[Hg] 112 mm[Hg] e CW1 ([facility]) Diastolic blood pressure 60 mm[Hg] 60 mm[Hg] eCW1 ([facility]) Heart rate 81 /min 81 /min [facility] Oxygen saturation in Arterial blood by Pulse oximetry 95 % 95 % [facility] Systolic blood pressure 110 mm[Hg] 110 mm[Hg] [facility] Diastolic blood pressure 66 mm[Hg] 66 mm[Hg] [facility] Heart rate 80 /min 80 /min [facility] Respiratory rate 20 /min 20 /min [facility] Oxygen saturation in Arterial blood by Pulse oximetry 95 % 95 % [facility] Body temperature 36.61 Adele 36.61 Adele [facility] Respiratory rate 20 /min 20 /min [facility] Systolic blood pressure 133 mm[Hg] 133 mm[Hg] [facility] Diastolic blood pressure 75 mm[Hg] 75 mm[Hg] [facility] Heart rate 80 /min 80 /min [facility] Body height 190.5 cm 190.5 cm [facility] Body weight 179.125 kg 179.125 kg [facility] Body mass index (BMI) [Ratio] 49.36 kg/m2 49.36 kg/m2 [facility] Oxygen saturation in Arterial blood by Pulse oximetry 96 % 96 % [facility] Respiratory rate 16 /min 16 /min MEDENT ( [facility]) Body height 75 [in_i] 75 [in_i] MEDENT ([facility]) 6'3" Body weight 393.00 [lb_av] 393.00 [lb_av] MEDEN T ([facility]) Systolic blood pressure 108 mm[Hg] 108 mm[Hg] M EDENT ([facility]) sitting, large cuff Diastolic blood pressure 60 mm[Hg] 60 mm[Hg] MEDENT ([facility]) sitting, large cuff Body mass index (BMI) [Ratio] 49.1 kg/m2 49.1 k g/m2 MEDENT ([facility]) Heart rate 80 /min 80 /min MEDENT ([facility]) Regular Body weight 386 [lb_av] 386 [lb_av] eCW1 ([facility]) Body height 75 [in_i] 75 [in_i] eCW1 ([facility]) Body mass index (BMI) [Ratio] 48.24 kg/m2 48.24 kg/m2 eCW1 ([facility]) Heart rate 87 /min 87 /min eCW1 ([facility]) Respiratory rate 22 /min 22 /min eCW1 ([facility]) Body temperature 95.6 [degF] 95.6 [degF] eCW1 ( [facility]) Systolic blood pressure 106 mm[Hg] 106 mm[Hg] e CW1 ([facility]) Diastolic blood pressure 60 mm[Hg] 60 mm[Hg] eCW1 ([facility]) Body temperature 97.2 [degF] 97.2 [degF] MEDENT ([facility] Heart rate 20 /min 20 /min MEDENT ([facility] Respiratory rate 60 /min 60 /min MEDENT ( [facility] Body height 75 [in_i] 75 [in_i] MEDENT ([facility] 6'3" [place] body weight 196 [lb_av] 196 [lb_av] MEDEN T ([facility] Systolic blood pressure 122 mm[Hg] 122 mm[Hg] M EDENT ([facility] Diastolic blood pressure 58 mm[Hg] 58 mm[Hg] MEDENT ([facility] Oxygen saturation in Arterial blood by Pulse oximetry 93 % 93 % MEDENT ([facility] Body weight 392 [lb_av] 392 [lb_av] eCW1 ([facility]) Body height 75 [in_i] 75 [in_i] eCW1 ([facility]) Body mass index (BMI) [Ratio] 48.99 kg/m2 48.99 kg/m2 eCW1 ([facility]) Heart rate 80 /min 80 /min eCW1 ([facility]) Respiratory rate 20 /min 20 /min eCW1 ([facility]) Body temperature 97.3 [degF] 97.3 [degF] eCW1 ( [facility]) Systolic blood pressure 118 mm[Hg] 118 mm[Hg] e CW1 ([facility]) Diastolic blood pressure 72 mm[Hg] 72 mm[Hg] eCW1 ([facility]) Body height 75 [in_i] 75 [in_i] MEDENT ([facility]) 6'3" Body mass index (BMI) [Ratio] 48.1 kg/m2 48.1 k g/m2 MEDENT ([facility]) Heart rate 88 /min 88 /min MEDENT ([facility]) Irregular Respiratory rate 16 /min 16 /min MEDENT ( [facility]) Systolic blood pressure 114 mm[Hg] 114 mm[Hg] M EDENT ([facility]) sitting, large cuff Diastolic blood pressure 60 mm[Hg] 60 mm[Hg] MEDENT ([facility]) sitting, large cuff Body weight 385.00 [lb_av] 385.00 [lb_av] MEDEN T ([facility]) Body height 75 [in_i] 75 [in_i] eCW1 ([facility]) Body mass index (BMI) [Ratio] 48.62 kg/m2 48.62 kg/m2 eCW1 ([facility]) Heart rate 77 /min 77 /min eCW1 ([facility]) Respiratory rate 22 /min 22 /min eCW1 ([facility]) Body temperature 97.8 [degF] 97.8 [degF] eCW1 ( [facility]) Body weight 389 [lb_av] 389 [lb_av] eCW1 ([facility]) Body weight 391.00 [lb_av] 391.00 [lb_av] MEDEN T ([facility], ) Systolic blood pressure 100 mm[Hg] 100 mm[Hg] M EDENT ([facility], ) Body mass index (BMI) [Ratio] 48.9 kg/m2 48.9 k g/m2 MEDENT ([facility], ) Diastolic blood pressure 67 mm[Hg] 67 mm[Hg] MEDENT ([facility], ) [place] body weight 196 [lb_av] 196 [lb_av] MEDEN T ([facility], ) Heart rate 111 /min 111 /min MEDENT ([facility], ) Body height 75 [in_i] 75 [in_i] MEDENT ([facility], ) 6'3" Body weight 177.358 kg 177.358 kg MEDENT ([facility]) Body surface area Derived from formula 2.92 m2 2.92 m2 MEDENT ([facility]) Body height 75 [in_i] 75 [in_i] MEDENT ([facility]) 6'3" Body weight 391.00 [lb_av] 391.00 [lb_av] MEDEN T ([facility]) Body mass index (BMI) [Ratio] 48.9 kg/m2 48.9 k g/m2 MEDENT ([facility]) [place] body weight 196 [lb_av] 196 [lb_av] MEDEN T ([facility]) Body weight 177.358 kg 177.358 [facility] Body surface area Derived from formula 2.92 m2 2.92 m2 [facility] ([facility]) Body temperature 98.4 [degF] 98.4 [degF] MEDENT ([facility] Systolic blood pressure 134 mm[Hg] 134 mm[Hg] M EDENT ([facility] Heart rate 68 /min 68 /min MEDENT ([facility] Respiratory rate 20 /min 20 /min MEDENT ( [facility] Body height 75 [in_i] 75 [in_i] MEDENT ([facility] 6'3" [place] body weight 196 [lb_av] 196 [lb_av] MEDEN T ([facility] Oxygen saturation in Arterial blood by Pulse oximetry 93 % 93 % MEDENT ([facility] (On O2 @ 3 LPM [place]) Diastolic blood pressure 78 mm[Hg] 78 mm[Hg] MEDENT ([facility] Body mass index (BMI) [Ratio] 52.5 kg/m2 52.5 k g/m2 MEDENT ([facility]) Heart rate 68 /min 68 /min MEDENT ([facility]) Regular Body weight 420.00 [lb_av] 420.00 [lb_av] MEDEN T ([facility]) Body height 75 [in_i] 75 [in_i] MEDENT ([facility]) 6'3" Respiratory rate 16 /min 16 /[facility] Diastolic blood pressure 64 mm[Hg] 64 mm[Hg] MEDENT ([facility]) sitting, large cuff Systolic blood pressure 126 mm[Hg] 126 mm[Hg] M EDENT ([facility]) sitting Systolic blood pressure 126 mm[Hg] 126 mm[Hg] M EDENT ([facility]) sitting, large cuff Diastolic blood pressure 62 mm[Hg] 62 mm[Hg] MEDENT ([facility]) sitting Oxygen saturation in Arterial blood by Pulse oximetry 94 % 94 % [facility] ([facility]) on 3.5LlM [place] Body temperature 96.1 [degF] 96.1 [degF] [facility] ([facility]) freind 97.6 Body height 75 [in_i] 75 [in_i] [facility] ([facility]) 6'3" Body weight 413.00 [lb_av] 413.00 [lb_av] MEDEN T ([facility]) Body mass index (BMI) [Ratio] 51.6 kg/m2 51.6 k g/m2 [facility] ([facility]) [place] body weight 196 [lb_av] 196 [lb_av] [facility] Body weight 187.337 kg 187.337 kg [facility] ([facility]) Systolic blood pressure 116 mm[Hg] 116 mm[Hg] [facility] Body surface area Derived from formula 2.99 m2 2.99 m2 [facility] ([facility]) Diastolic blood pressure 70 mm[Hg] 70 mm[Hg] [facility] ([facility]) Heart rate 89 /min 89 /min [facility] ([facility]) Oxygen saturation in Arterial blood by Pulse oximetry 94 % 94 % [facility] ([facility]) on 3.5LlM [place] Body temperature 96.1 [degF] 96.1 [degF] [facility] ([facility]) freind 97.6 Body height 75 [in_i] 75 [in_i] [facility] ([facility]) 6'3" Body weight 413.00 [lb_av] 413.00 [lb_av] MEDEN T ([facility]) Body mass index (BMI) [Ratio] 51.6 kg/m2 51.6 k g/m2 [facility] ([facility]) [place] body weight 196 [lb_av] 196 [lb_av] MEDEN T ([facility]) Body weight 187.337 kg 187.337 kg [facility] ([facility]) Body surface area Derived from formula 2.99 m2 2.99 m2 [facility] ([facility]) Respiratory rate 19 /min 19 /min eCW1 ([facility]) Body weight 410 [lb_av] 410 [lb_av] eCW1 ([facility]) Body temperature 96.8 [degF] 96.8 [degF] eCW1 ( [facility]) Body weight kg eCW1 ([facility]) Body height 75 [in_i] 75 [in_i] eCW1 ([facility]) Body mass index (BMI) [Ratio] 51.24 kg/m2 51.24 kg/m2 eCW1 ([facility]) Systolic blood pressure 128 mm[Hg] 128 mm[Hg] e CW1 ([facility]) Heart rate 82 /min 82 /min eCW1 ([facility]) Diastolic blood pressure 81 mm[Hg] 81 mm[Hg] eCW1 ([facility]) Body weight kg eCW1 ([facility]) Heart rate 77 /min 77 /min eCW1 ([facility]) Body height 75 [in_i] 75 [in_i] eCW1 ([facility]) Respiratory rate 20 /min 20 /min eCW1 ([facility]) Body temperature 96.6 [degF] 96.6 [degF] eCW1 ( [facility]) Body mass index (BMI) [Ratio] 51.24 kg/m2 51.24 kg/m2 eCW1 ([facility]) Body weight 410 [lb_av] 410 [lb_av] eCW1 ([facility]) Body weight 410 [lb_av] 410 [lb_av] eCW1 ([facility]) Body weight kg eCW1 ([facility]) Body height 75 [in_i] 75 [in_i] eCW1 ([facility]) Body mass index (BMI) [Ratio] 51.24 kg/m2 51.24 kg/m2 eCW1 ([facility]) Heart rate 83 /min 83 /min eCW1 ([facility]) Respiratory rate 22 /min 22 /min eCW1 ([facility]) Body temperature 96.1 [degF] 96.1 [degF] eCW1 ( [facility]) Systolic blood pressure 132 mm[Hg] 132 mm[Hg] e CW1 ([facility]) Diastolic blood pressure 65 mm[Hg] 65 mm[Hg] eCW1 ([facility]) Body weight 410 [lb_av] 410 [lb_av] eCW1 ([facility]) Body mass index (BMI) [Ratio] 51.24 kg/m2 51.24 kg/m2 eCW1 ([facility]) Body height 75 [in_i] 75 [in_i] eCW1 ([facility]) Body weight kg eCW1 ([facility]) Heart rate 91 /min 91 /min eCW1 ([facility]) Respiratory rate 22 /min 22 /min eCW1 ([facility]) Systolic blood pressure 117 mm[Hg] 117 mm[Hg] e CW1 ([facility]) Diastolic blood pressure 62 mm[Hg] 62 mm[Hg] eCW1 ([facility]) Body temperature 96.3 [degF] 96.3 [degF] eCW1 ( [facility]) Systolic blood pressure 88 mm[Hg] 88 mm[Hg] Vonda KILLIAN ([facility]) Diastolic blood pressure 58 mm[Hg] 58 mm[Hg] [facility] ([facility]) Heart rate 96 /min 96 /min [facility] ([facility]) Oxygen saturation in Arterial blood by Pulse oximetry 924 % 924 % [facility] ([facility]) 83ra Body temperature 97.5 [degF] 97.5 [degF] [facility] HOSPITAL ([facility]) Body height 75 [in_i] 75 [in_i] [facility] ([facility]) 6'3" Body weight 410.00 [lb_av] 410.00 [lb_av] MEDEN T ([facility]) Body mass index (BMI) [Ratio] 51.2 kg/m2 51.2 k g/m2 [facility] ([facility]) [place] body weight 196 [lb_av] 196 [facility]_av[facility] Body weight 185.976 kg 185.976 kg [facility] ([facility]) Body surface area Derived from formula 2.98 m2 2.98 m2 [facility] ([facility]) Body weight 397 [lb_av] 397 [lb_av] eCW1 ([facility]) Body weight kg eCW1 ([facility]) Body height 75 [in_i] 75 [in_i] eCW1 ([facility]) Body mass index (BMI) [Ratio] 49.62 kg/m2 49.62 kg/m2 eCW1 ([facility]) Heart rate 89 /min 89 /min eCW1 ([facility], [facility]) Respiratory rate 18 /min 18 /min eCW1 ([facility]) Body temperature 96.7 [degF] 96.7 [degF] eCW1 ( [facility]) Systolic blood pressure 131 mm[Hg] 131 mm[Hg] e CW1 ([facility]) Diastolic blood pressure 75 mm[Hg] 75 mm[Hg] eCW1 ([facility]) Body weight 397 [lb_av] 397 [lb_av] eCW1 ([facility]) Body weight kg eCW1 ([facility]) Body height 75 [in_i] 75 [in_i] eCW1 ([facility]) Body mass index (BMI) [Ratio] 49.62 kg/m2 49.62 kg/m2 eCW1 ([facility]) Heart rate 95 /min 95 /min eCW1 ([facility], [facility]) Respiratory rate 18 /min 18 /min eCW1 ([facility]) Body temperature 96.0 [degF] 96.0 [degF] eCW1 ( [facility]) Systolic blood pressure 134 mm[Hg] 134 mm[Hg] e CW1 ([facility]) Diastolic blood pressure 71 mm[Hg] 71 mm[Hg] eCW1 ([facility]) Body weight 397 [lb_av] 397 [lb_av] eCW1 ([facility]) Body height 75 [in_i] 75 [in_i] eCW1 ([facility]) Body mass index (BMI) [Ratio] 49.62 kg/m2 49.62 kg/m2 eCW1 ([facility]) Heart rate 57 /min 57 /min eCW1 ([facility]) Respiratory rate 18 /min 18 /min eCW1 ([facility]) Body temperature 97.4 [degF] 97.4 [degF] eCW1 ( [facility]) Systolic blood pressure 126 mm[Hg] 126 mm[Hg] e CW1 ([facility]) Diastolic blood pressure 61 mm[Hg] 61 mm[Hg] eCW1 ([facility]) Body mass index (BMI) [Ratio] 49.62 kg/m2 49.62 kg/m2 eCW1 ([facility]) Heart rate 90 /min 90 /min eCW1 ([facility]) Body weight 397 [lb_av] 397 [lb_av] eCW1 ([facility]) Respiratory rate 18 /min 18 /min eCW1 ([facility]) Body weight kg eCW1 ([facility]) Body temperature 95.7 [degF] 95.7 [degF] eCW1 ( [facility]) Body height 75 [in_i] 75 [in_i] eCW1 ([facility]) Systolic blood pressure 139 mm[Hg] 139 mm[Hg] e CW1 ([facility]) Diastolic blood pressure 67 mm[Hg] 67 mm[Hg] eCW1 ([facility]) Body weight 397 [lb_av] 397 [lb_av] eCW1 ([facility]) Body weight kg eCW1 ([facility]) Heart rate 86 /min 86 /min eCW1 ([facility]) Respiratory rate 18 /min 18 /min eCW1 ([facility]) Body temperature 95.6 [degF] 95.6 [degF] eCW1 ( [facility]) Systolic blood pressure 126 mm[Hg] 126 mm[Hg] e CW1 ([facility]) Diastolic blood pressure 78 mm[Hg] 78 mm[Hg] eCW1 ([facility]) Body height 75 [in_i] 75 [in_i] eCW1 ([facility]) Body mass index (BMI) [Ratio] 49.62 kg/m2 49.62 kg/m2 W1 ([facility]) Body weight 397 [lb_av] 397 [lb_av] eCW1 ([facility]) Systolic blood pressure 107 mm[Hg] 107 mm[Hg] e CW1 ([facility]) Diastolic blood pressure 57 mm[Hg] 57 mm[Hg] eCW1 ([facility]) Body height 75 [in_i] 75 [in_i] eCW1 ([facility]) Body mass index (BMI) [Ratio] 49.62 kg/m2 49.62 kg/m2 W1 ([facility]) Heart rate 79 /min 79 /min eCW1 ([facility]) Respiratory rate 18 /min 18 /min eCW1 ([facility]) Body temperature 97.5 [degF] 97.5 [degF] eCW1 ( [facility]) Body weight 397 [lb_av] 397 [lb_av] eCW1 ([facility]) Body mass index (BMI) [Ratio] 49.62 kg/m2 49.62 kg/m2 W1 ([facility]) Body height 75 [in_i] 75 [in_i] eCW1 ([facility]) Heart rate 95 /min 95 /min eCW1 ([facility]) Respiratory rate 16 /min 16 /min eCW1 ([facility]) Body temperature 97.4 [degF] 97.4 [degF] eCW1 ( [facility]) Systolic blood pressure 122 mm[Hg] 122 mm[Hg] e CW1 ([facility]) Diastolic blood pressure 56 mm[Hg] 56 mm[Hg] eCW1 ([facility]) Systolic blood pressure 114 mm[Hg] 114 mm[Hg] M EDENT ([facility] Diastolic blood pressure 74 mm[Hg] 74 mm[Hg] MEDENT ([facility] Body temperature 97.2 [degF] 97.2 [degF] MEDENT ([facility] Heart rate 74 /min 74 /min MEDENT ([facility] Respiratory rate 18 /min 18 /min MEDENT ( [facility] Body height 75 [in_i] 75 [in_i] MEDENT ([facility] 6'3" [place] body weight 196 [lb_av] 196 [lb_av] MEDEN T ([facility] Oxygen saturation in Arterial blood by Pulse oximetry 95 % 95 % MEDENT ([facility] Diastolic blood pressure 68 mm[Hg] 68 mm[Hg] MEDENT ([facility]) sitting, large cuff Systolic blood pressure 108 mm[Hg] 108 mm[Hg] M EDTRISTIAN ([facility]) sitting Diastolic blood pressure 68 mm[Hg] 68 mm[Hg] MEDENT ([facility]) sitting Body weight 404.00 [lb_av] 404.00 [lb_av] MEDEN T ([facility]) Systolic blood pressure 110 mm[Hg] 110 mm[Hg] M EDENT ([facility]) sitting, large cuff Body height 75 [in_i] 75 [in_i] ROMÁN ([facility] 6'3" Body mass index (BMI) [Ratio] 50.5 kg/m2 50.5 k g/m2 MEDTRISTIAN ([facility]) Respiratory rate 16 /min 16 /min MEDTRISTIAN ( [facility]) ID Date Data Source [id number] 02/01/2021 01:05:44 PM EDT [facility] Name Value Range Interpretation Code Description Data Source(s) TRANSFER FROM [facility] ID Date Data Source [id number] 02/11/2021 01:41:18 PM EDT [facility] Name Value Range Interpretation Code Description Data Source(s) WEIGHT RECORDED 408 lb 408 lb [facility] WEIGHT RECORDED 423.28 lb 423.28 lb [facility] WEIGHT RECORDED 422 lb 422 lb [facility] WEIGHT RECORDED 434 lb 434 lb [facility] WEIGHT RECORDED 438 lb 438 lb [facility] WEIGHT RECORDED 432.6 lb 432.6 lb [facility] WEIGHT RECORDED 429 lb 429 lb [facility] WEIGHT RECORDED 409 lb 409 lb [facility] WEIGHT RECORDED 425 lb 425 lb [facility] WEIGHT RECORDED 425 lb 425 lb [facility] WEIGHT RECORDED 426.59 lb 426.59 lb [facility] Body height Measured 75 in 75 in [facility] WEIGHT RECORDED 421.08 lb 421.08 lb [facility] TRANSFER FROM [facility] Patient Treatment Plan of Care Planned Activity Planned Date Details Description Data Source (s) Zinplava 1000 MG/40ML 07/02/2021 12:00:00 AM EDT eCW1 ([facility]) Zinplava 1000 MG/40ML 07/02/2021 12:00:00 AM EDT eCW1 ([facility]) Zinplava 1000 MG/40ML 07/02/2021 12:00:00 AM EDT eCW1 ([facility]) fidaxomicin 200 MG Oral Tablet [Dificid] 06/21/2021 12:00:00 AM EDT eCW1 ([facility]) fidaxomicin 200 MG Oral Tablet [Dificid] 06/21/2021 12:00:00 AM EDT eCW1 ([facility]) Levofloxacin 500 MG Oral Tablet 03/22/2021 12:00:00 AM EDT eCW1 ([facility]) Fluconazole 200 MG Oral Tablet 03/22/2021 12:00:00 AM EDT eCW1 ([facility]) Levofloxacin 500 MG Oral Tablet 03/22/2021 12:00:00 AM EDT eCW1 ([facility]) Fluconazole 200 MG Oral Tablet 03/22/2021 12:00:00 AM EDT eCW1 ([facility]) Fluconazole 200 MG Oral Tablet 03/22/2021 12:00:00 AM EDT eCW1 ([facility]) Levofloxacin 500 MG Oral Tablet 03/22/2021 12:00:00 AM EDT eCW1 ([facility]) Levofloxacin 500 MG Oral Tablet 03/22/2021 12:00:00 AM EDT eCW1 ([facility]) Fluconazole 200 MG Oral Tablet 03/22/2021 12:00:00 AM EDT eCW1 ([facility]) Fluconazole 200 MG Oral Tablet 03/22/2021 12:00:00 AM EDT eCW1 ([facility]) Levofloxacin 500 MG Oral Tablet 03/22/2021 12:00:00 AM EDT eCW1 ([facility]) predniSONE (DELTASONE) tablet 30 mg 02/09/2021 09:00:00 AM [facility] Magnesium Oxide 400 MG Oral Tablet 02/09/2021 12:00:00 AM [facility] Fluconazole 200 MG Oral Tablet 02/09/2021 12:00:00 AM [facility] clopidogrel 75 MG Oral Tablet 02/09/2021 12:00:00 AM [facility] furosemide (LASIX) injection 20 mg 02/08/2021 09:00:00 PM [facility] Furosemide 10 MG/ML Injection Solution (LASIX) 02/08/2021 12:00:00 AM [facility] sodium chloride 0.9 % SOLN 100 mL with meropenem 1 g S OLR 2,000 mg 02/08/2021 12:00:00 AM [facility] ospital gabapentin 300 MG Oral Capsule 02/08/2021 12:00:00 AM [facility] Metoprolol Tartrate 1 MG/ML Injectable Solution 01/27/2021 07:47:48 PM [facility] sodium chloride flush 0.9 % 10 mL 01/21/2021 11:26:59 PM [facility] sodium chloride 0.9 % bag 3-20 mL 01/21/2021 11:26:59 PM [facility] sodium chloride flush 0.9 % 10 mL 01/21/2021 11:26:59 PM [facility] sodium chloride flush 0.9 % 10 mL 01/21/2021 11:26:59 PM [facility] sodium chloride flush 0.9 % 10 mL 01/21/2021 11:26:59 PM [facility] Prednisone 10 MG Oral Tablet 01/14/2021 12:00:00 AM [facility] sacubitril 24 MG / valsartan 26 MG Oral Tablet [Entres to] 01/12/2021 12:00:00 AM [facility] pantoprazole 40 MG Delayed Release Oral Tablet 01/09/2021 12:00:00 AM [facility] Furosemide 40 MG Oral Tablet 01/09/2021 12:00:00 AM [facility] Fluticasone Propionate 50 MCG/ACT Nasal Suspension (FL ONASE) 01/09/2021 12:00:00 AM [facility] Betamethasone 0.5 MG/ML / Clotrimazole 10 MG/ML Topica l Cream 01/09/2021 12:00:00 AM [facility] Metoprolol Tartrate 50 MG Oral Tablet 12/29/2020 12:00:00 AM [facility] gabapentin 300 MG Oral Capsule 12/14/2020 12:00:00 AM [facility] Finasteride 5 MG Oral Tablet 12/14/2020 12:00:00 AM [facility] Levothyroxine Sodium 0.2 MG Oral Tablet 12/14/2020 12:00:00 AM [facility] Rosuvastatin calcium 20 MG Oral Tablet 12/01/2020 12:00:00 AM [facility] Digoxin 0.125 MG Oral Tablet 12/01/2020 12:00:00 AM [facility] Potassium Chloride 10 MEQ Extended Release Oral Capsul e 11/19/2020 12:00:00 AM [facility] ospital apixaban 5 MG Oral Tablet [Eliquis] 10/19/2020 12:00:00 AM [facility] Levothyroxine Sodium 0.025 MG Oral Tablet 09/22/2020 12:00:00 AM [facility] Levothyroxine Sodium 0.05 MG Oral Tablet 06/18/2020 12:00:00 AM [facility] Spironolactone 25 MG Oral Tablet 02/28/2020 12:00:00 AM [facility] dabigatran etexilate 150 MG Oral Capsule 07/19/2016 12:00:00 AM [facility] Gentamicin Sulfate (PRISON) 0.001 MG/MG Topical Ointment [facility] Spironolactone 25 MG Oral Tablet [facility] clopidogrel 75 MG Oral Tablet [facility] GLUCOSAMINE-CHONDROITIN PO S [facility] Lisinopril 2.5 MG Oral Tablet [facility] Levothyroxine Sodium 0.175 MG Oral Tablet [facility] Beti De Oliveira Dur[place]-3 DHA Oral Tablet Chewable [facility] Vitamin B 12 0.5 MG Oral Tablet [facility] ferrous sulfate 325 MG Oral Tablet [facility] Nitroglycerin 0.4 MG Sublingual Tablet [facility] Cranberry 300 MG Oral Tablet [facility] Tab-A-Dianna/Beta Carotene Oral Tablet [facility] Calcium Carbonate 1500 MG Oral Tablet [facility] Durkee-3 Fatty Acids (FISH OIL PO) [facility] Tamsulosin hydrochloride 0.4 MG Oral Capsule [facility] Loratadine 10 MG Oral Tablet [facility] Lisinopril 2.5 MG Oral Tablet [facility] clopidogrel 75 MG Oral Tablet [facility]
--- NOTE | 2021-08-07 15:29 | REP ---
INDICATION: DYSPNEA/COUGH. COMPARISON: 01/20/2021 TECHNIQUE: Portable FINDINGS: The technique utilized in obtaining the radiograph has magnified the cardiac silhouette and accentuated the interstitial markings. Cardiomediastinal silhouette is unchanged. There is cardiomegaly accentuated by technique. The diffuse airspace opacities seen on the prior exam have improved. A significant residual, however, persists. There are no new abnormal opacities. The pleural angles are sharp. The pacemaker devices unchanged. The osseous structures are unchanged. IMPRESSION: Persistent but improved airspace opacities. <Electronically signed by Shorty Campbell > 08/07/21 [id number]
[2021-08-07 15:37] LABS: BASO # 0.1 10^3/uL (0.0-0.2); BASO % 0.2 % (0.0-1.0); EOS % 0.1 % (0.0-3.0); HEMATOCRIT 43.6 % (42.0-52.0); LYMPH # 1.3 10^3/uL (1.5-5.0); LYMPH % 6.3 % (24.0-44.0); MEAN CORPUSCULAR HEMOGLOBIN 28.1 pg (27.0-33.0); MEAN CORPUSCULAR HGB CONC 32.1 g/dl (32.0-36.5); MEAN CORPUSCULAR VOLUME 87.4 fl (80.0-96.0); MONO # 1.3 10^3/uL (0.0-0.8); MONO % 6.2 % (2.0-8.0); NEUTROPHILS # 17.4 10^3/uL (1.5-8.5); NEUTROPHILS % 86.4 % (36.0-66.0); PLATELET COUNT, AUTOMATED 218 10^3/uL (150-450); RED BLOOD COUNT 4.99 10^6/uL (4.30-6.10); WHITE BLOOD COUNT 20.2 10^3/uL (4.0-10.0)
[2021-08-07 16:23] LABS: ALBUMIN 3.3 GM/DL (3.2-5.2); ALT/SGPT 90 U/L (12-78); BILIRUBIN,DIRECT 0.8 MG/DL (0.0-0.2); BILIRUBIN,TOTAL 2.6 MG/DL (0.2-1.0); BLOOD UREA NITROGEN 25 MG/DL (7-18); CALCIUM LEVEL 9.5 MG/DL (8.8-10.2); CARBON DIOXIDE LEVEL 27 MEQ/L (21-32); CHLORIDE LEVEL 102 MEQ/L (98-107); CK-MB VALUE MASS < 1.0 NG/ML (<3.6); CPK CREATINE PHOSPHOKINASE 47 U/L (39-308); CREATININE FOR GFR 1.26 MG/DL (0.70-1.30); DIGOXIN LEVEL 1.6 NG/ML (0.5-2.0); GLOMERULAR FILTRATION RATE > 60.0 (>49); GLUCOSE, FASTING 214 MG/DL (70-100); MB/CK RELATIVE INDEX 2.13 (< OR =4); NT-PRO BNP 1601 PG/ML (<125); SODIUM LEVEL 137 MEQ/L (136-145); THYROID STIMULATING HORMONE 0.923 uIU/ML (0.358-3.740); THYROXINE (T4) 12.8 UG/DL (4.5-12.0); TOTAL PROTEIN 7.5 GM/DL (6.4-8.2); TROPONIN I < 0.02 NG/ML (< 0.10)
[2021-08-07 18:50] LABS: LIPASE 51 U/L (73-393)
[2021-08-07] MEDS ORDERED: ISOVUE-370 76% 100ML VIAL As Ordered ONE (19:04)
--- NOTE | 2021-08-07 20:38 | ECGEPIP ---
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
--- NOTE | 2021-08-07 20:46 | REPVR ---
PROCEDURE INFORMATION: Exam: CT Abdomen And Pelvis With Contrast Exam date and time: 08/07/2021 8:03 PM Age: 66 years old Clinical indication: Other: Elevated liver enzymes, jaundice HX liver abscess; Prior surgery; Surgery date: 6+ months; Surgery type: Liver drain TECHNIQUE: Imaging protocol: Computed tomography of the abdomen and pelvis with contrast. Radiation optimization: All CT scans at this facility use at least one of these dose optimization techniques: automated exposure control; mA and/or kV adjustment per patient size (includes targeted exams where dose is matched to clinical indication); or iterative reconstruction. Contrast material: ISOVUE 370; Contrast volume: 100 ml; Contrast route: INTRAVENOUS (IV); COMPARISON: CT ABD PELVIS W/O FOL BY WIT 05/22/2021 10:19 AM FINDINGS: Lungs: Bilateral semi-solid and solid pulmonary parenchymal opacities consistent with multifocal pneumonitis. Liver: Examination of the liver demonstrates a lobular surface contour, and enlargement of the left and caudate lobes, findings consistent with cirrhosis. Hypodensity demonstrated adjacent to the caudate and right lobes of the liver may be postprocedural. Gallbladder and bile ducts: There has been a cholecystectomy. Pancreas: Normal. No ductal dilation. Spleen: There is elkf-hk-thvooged splenomegaly with a maximum span of 16 centimeters. No focal abnormalities demonstrated. Adrenal glands: Normal. No mass. Kidneys and ureters: Simple cyst right kidney measures 12 mm. No follow-up suggested. Kidneys otherwise unremarkable. Stomach and bowel: This patient is status post gastric bypass surgery. Mild diverticulosis is present in the distal colon. No diverticulitis. Appendix: No evidence of appendicitis. Intraperitoneal space: Unremarkable. No free air. No significant fluid collection. Vasculature: The aortoiliac vessels demonstrate mild atherosclerotic calcification. Lymph nodes: Unremarkable. No enlarged lymph nodes. Urinary bladder: Unremarkable as visualized. Reproductive: Unremarkable as visualized. Bones/joints: The spine demonstrates moderate degenerative changes. Moderate to severe central spinal stenosis L3-L4 and severe central spinal stenosis L4-L5. Soft tissues: Unremarkable. IMPRESSION: 1. Examination of the liver demonstrates a lobular surface contour, and enlargement of the left and caudate lobes, findings consistent with cirrhosis. Hypodensity demonstrated adjacent to the caudate and right lobes of the liver may be postprocedural. 2. There has been a cholecystectomy. 3. There is jxqj-ps-grxtlajq splenomegaly with a maximum span of 16 centimeters. No focal abnormalities demonstrated. 4. This patient is status post gastric bypass surgery. 5. Mild diverticulosis is present in the distal colon. No diverticulitis. COMMENTS: Consistent with the [employer]'s Incidental Findings Committee white paper (J Am Juan Radiol 2018): Any incidental renal lesion less than 1 cm or classified as too small to characterize, or any incidental cystic renal lesion characterized as simple-appearing, is likely benign. No follow-up imaging is recommended for these lesions per consensus recommendations based on imaging criteria. Electronically signed by: León Serrato On 08/07/2021 20:46:10 PM
[2021-08-07] MEDS ORDERED: FUROSEMIDE 20MG/2ML VIAL (J1940) IV ONE (21:10)
[2021-08-07 21:42] VITALS: BP 149/86
== END 2021-08-07 23:09 | disposition home or self-care (01) ==
LOC: M ED 09:47
DX: R06.02 Shortness of breath (principal); Z95.0 Presence of cardiac pacemaker; Z95.810 Presence of automatic (implantable) cardiac defibrillator; I48.91 Unspecified atrial fibrillation; I25.10 Atherosclerotic heart disease of native coronary artery without angina pectoris; I10 Essential (primary) hypertension; K21.9 Gastro-esophageal reflux disease without esophagitis; E03.9 Hypothyroidism, unspecified; Z98.84 Bariatric surgery status; R16.1 Splenomegaly, not elsewhere classified; R93.2 Abnormal findings on diagnostic imaging of liver and biliary tract; I51.7 Cardiomegaly; Z79.82 Long term (current) use of aspirin; Z79.01 Long term (current) use of anticoagulants; Z79.899 Other long term (current) drug therapy; Z88.8 Allergy status to other drugs, medicaments and biological substances
CPT/HCPCS: 71045; 74177; 80048; 80076; 80162; 82550; 82553; 83605; 83690; 83880; 84436; 84443; 84484; 85025; 87040; 87798; 93005; 93041; 94760; 96374; 99284; J1940; Q9967

== ENCOUNTER → 2021-08-12 | Outpatient (CLI) | payer MEDICARE, BC, OTHER | LOC: M LABSMTC 11:35 | PROVIDERS: ATTEND Family Medicine | DX: Z20.822 Contact with and (suspected) exposure to COVID-19 (principal) ==

== ENCOUNTER → 2021-08-15 | Outpatient (CLI) | payer MEDICARE, BC, OTHER ==
[2021-08-15 14:04] LABS: BASO # 0.1 10^3/uL (0.0-0.2); BASO % 0.8 % (0.0-1.0); EOS # 0.3 10^3/uL (0.0-0.5); EOS % 1.6 % (0.0-3.0); HEMATOCRIT 43.2 % (42.0-52.0); HEMOGLOBIN 13.5 g/dl (13.5-17.5); LYMPH # 2.9 10^3/uL (1.5-5.0); LYMPH % 16.3 % (24.0-44.0); MEAN CORPUSCULAR HEMOGLOBIN 27.9 pg (27.0-33.0); MEAN CORPUSCULAR HGB CONC 31.3 g/dl (32.0-36.5); MEAN CORPUSCULAR VOLUME 89.3 fl (80.0-96.0); MONO # 1.4 10^3/uL (0.0-0.8); MONO % 7.6 % (2.0-8.0); NEUTROPHILS # 12.4 10^3/uL (1.5-8.5); NEUTROPHILS % 70.1 % (36.0-66.0); PLATELET COUNT, AUTOMATED 303 10^3/uL (150-450); RED BLOOD COUNT 4.84 10^6/uL (4.30-6.10); WHITE BLOOD COUNT 17.7 10^3/uL (4.0-10.0)
[2021-08-15 14:43] LABS: ALBUMIN 3.3 GM/DL (3.2-5.2); ALT/SGPT 55 U/L (12-78); BILIRUBIN,TOTAL 0.9 MG/DL (0.2-1.0); BLOOD UREA NITROGEN 21 MG/DL (7-18); C REACTIVE PROTEIN QUANTITATIV 1.97 MG/DL (0.00-0.30); CALCIUM LEVEL 9.2 MG/DL (8.8-10.2); CARBON DIOXIDE LEVEL 28 MEQ/L (21-32); CHLORIDE LEVEL 102 MEQ/L (98-107); CREATININE FOR GFR 1.02 MG/DL (0.70-1.30); GLOMERULAR FILTRATION RATE > 60.0 (>49); GLUCOSE, FASTING 134 MG/DL (70-100); POTASSIUM SERUM 3.7 MEQ/L (3.5-5.1); SODIUM LEVEL 139 MEQ/L (136-145); TOTAL PROTEIN 7.1 GM/DL (6.4-8.2)
[2021-08-15 15:55] LABS: ERYTHROCYTE SEDIMENTATION RATE 45 mm/hr (0-20)
== END ==
LOC: M PLALAB 09:45
PROVIDERS: ATTEND Internal Medicine Infectious Disease
DX: K75.0 Abscess of liver (principal)
CPT/HCPCS: 36415; 80053; 85025; 85652; 86140; G0463

== ENCOUNTER → 2021-10-16 | Outpatient (REF) ==
[~2021-10-16] MED LIST changes: -CEFD1CAP8 PO; +CEFD300C41 PO
== END ==
LOC: M LABSMTC 11:39
PROVIDERS: ATTEND Pediatrics
DX: Z11.52 Encounter for screening for COVID-19 (principal)

== ENCOUNTER → 2021-11-21 | Outpatient (REF) | payer MEDICARE, BC, OTHER ==
[~2021-11-21] MED LIST changes: -DAPT500I IV; +DAPT500V8 IV; -FLUC100T PO; +FLUC100T3 PO
[2021-11-21 12:43] LABS: ALBUMIN 3.2 GM/DL (3.2-5.2); ALT/SGPT 51 U/L (12-78); BLOOD UREA NITROGEN 24 MG/DL (7-18); CARBON DIOXIDE LEVEL 27 MEQ/L (21-32); CHLORIDE LEVEL 101 MEQ/L (98-107); CHOLESTEROL LEVEL 102 MG/DL (<200); CHOLESTEROL RISK RATIO 2.372 (<5); CREATININE FOR GFR 1.16 MG/DL (0.70-1.30); GLOMERULAR FILTRATION RATE > 60.0 (>49); GLUCOSE, FASTING 185 MG/DL (70-100); HDL CHOLESTEROL 43 MG/DL (>40); LDL CHOLESTEROL 21 MG/DL (<100); NON-HDL-C 59 MG/DL; POTASSIUM SERUM 3.6 MEQ/L (3.5-5.1); SODIUM LEVEL 136 MEQ/L (136-145); TOTAL PROTEIN 6.9 GM/DL (6.4-8.2); TRIGLYCERIDES LEVEL 188 MG/DL (<150)
== END ==
LOC: M LAB REF 11:33
PROVIDERS: ATTEND Internal Medicine
DX: E78.5 Hyperlipidemia, unspecified (principal); E03.9 Hypothyroidism, unspecified; R73.01 Impaired fasting glucose

== ENCOUNTER → 2022-01-20 | Outpatient (REF) | payer MEDICARE, BC, OTHER ==
[~2022-01-20] MED LIST changes: -D31000TA2 PO; +VITA100093 PO
[2022-01-20 12:28] LABS: BLOOD UREA NITROGEN 23 MG/DL (7-18); CALCIUM LEVEL 9.8 MG/DL (8.8-10.2); CARBON DIOXIDE LEVEL 26 MEQ/L (21-32); CHLORIDE LEVEL 104 MEQ/L (98-107); CREATININE FOR GFR 1.14 MG/DL (0.70-1.30); GLOMERULAR FILTRATION RATE > 60.0 (>49); GLUCOSE, FASTING 238 MG/DL (70-100); MAGNESIUM LEVEL 2.1 MG/DL (1.8-2.4); SODIUM LEVEL 137 MEQ/L (136-145)
== END ==
LOC: M LAB REF 11:35
PROVIDERS: ATTEND Physician Assistant
DX: I50.42 Chronic combined systolic (congestive) and diastolic (congestive) heart failure (principal)

== ENCOUNTER → 2022-02-19 | Outpatient (REF) | payer MEDICARE, BC, OTHER ==
[~2022-02-19] MED LIST changes: +FARX1TAB3 PO
[2022-02-19 11:59] LABS: BASO # 0.1 10^3/uL (0.0-0.2); BASO % 0.4 % (0.0-1.0); EOS # 0.3 10^3/uL (0.0-0.5); EOS % 1.8 % (0.0-3.0); HEMATOCRIT 39.5 % (42.0-52.0); HEMOGLOBIN 12.8 g/dl (13.5-17.5); LYMPH % 13.5 % (24.0-44.0); MEAN CORPUSCULAR HEMOGLOBIN 28.6 pg (27.0-33.0); MEAN CORPUSCULAR HGB CONC 32.4 g/dl (32.0-36.5); MEAN CORPUSCULAR VOLUME 88.4 fl (80.0-96.0); MONO # 1.3 10^3/uL (0.0-0.8); NEUTROPHILS # 10.8 10^3/uL (1.5-8.5); NEUTROPHILS % 74.1 % (36.0-66.0); PLATELET COUNT, AUTOMATED 220 10^3/uL (150-450); RED BLOOD COUNT 4.47 10^6/uL (4.30-6.10); WHITE BLOOD COUNT 14.6 10^3/uL (4.0-10.0)
[2022-02-19 12:33] LABS: ALBUMIN 2.9 GM/DL (3.2-5.2); ALT/SGPT 27 U/L (12-78); BILIRUBIN,TOTAL 0.9 MG/DL (0.2-1.0); BLOOD UREA NITROGEN 23 MG/DL (7-18); CALCIUM LEVEL 8.9 MG/DL (8.8-10.2); CARBON DIOXIDE LEVEL 27 MEQ/L (21-32); CHLORIDE LEVEL 107 MEQ/L (98-107); CHOLESTEROL LEVEL 83 MG/DL (<200); CHOLESTEROL RISK RATIO 2.075 (<5); CREATININE FOR GFR 1.15 MG/DL (0.70-1.30); GLOMERULAR FILTRATION RATE > 60.0 (>49); GLUCOSE, FASTING 161 MG/DL (70-100); HDL CHOLESTEROL 40 MG/DL (>40); LDL CHOLESTEROL 13 MG/DL (<100); NON-HDL-C 43 MG/DL; POTASSIUM SERUM 3.8 MEQ/L (3.5-5.1); SODIUM LEVEL 139 MEQ/L (136-145); THYROID STIMULATING HORMONE 0.553 uIU/ML (0.358-3.740); TOTAL PROTEIN 6.6 GM/DL (6.4-8.2); TRIGLYCERIDES LEVEL 149 MG/DL (<150)
== END ==
LOC: M LAB REF 11:33
PROVIDERS: ATTEND Internal Medicine
DX: I10 Essential (primary) hypertension (principal); E03.9 Hypothyroidism, unspecified; R73.01 Impaired fasting glucose; E78.5 Hyperlipidemia, unspecified

== ENCOUNTER → 2022-02-26 | Outpatient (CLI) | payer MEDICARE, BC, OTHER | LOC: M LABSMTC 09:58 | PROVIDERS: ATTEND Anesthesiology | DX: Z01.818 Encounter for other preprocedural examination (principal); Z11.52 Encounter for screening for COVID-19 ==

== ENCOUNTER 2022-03-03 09:46 | Day surgery (SDC) | payer MEDICARE, BC, OTHER ==
[~2022-03-03] VITALS: Ht 190.5 cm; Wt 165.1 kg
[~2022-03-03 09:46] MED LIST changes: +LIDOCAINE 2% 100MG/5ML SDV (FOR ANES.) As Ordered ONE; +fentaNYL 100 MCG/2 ML INJECTION As Ordered ONE; +propofoL 500 MG/50 ML VIAL As Ordered ONE
[2022-03-03] MEDS ORDERED: NS 1,000 ML IV ONE (10:15)
[2022-03-03 12:00] VITALS: BP 132/71
== END 2022-03-03 12:12 | disposition home or self-care (01) ==
LOC: M OPP 09:46
PROVIDERS: ATTEND Internal Medicine Gastroenterology
DX: Z12.11 Encounter for screening for malignant neoplasm of colon (principal); Z80.0 Family history of malignant neoplasm of digestive organs; D12.5 Benign neoplasm of sigmoid colon; K63.5 Polyp of colon; K57.30 Diverticulosis of large intestine without perforation or abscess without bleeding; K64.0 First degree hemorrhoids; K22.89 Other specified disease of esophagus; K44.9 Diaphragmatic hernia without obstruction or gangrene; Z98.84 Bariatric surgery status; Z79.02 Long term (current) use of antithrombotics/antiplatelets; Z79.52 Long term (current) use of systemic steroids; Z79.899 Other long term (current) drug therapy; Z88.8 Allergy status to other drugs, medicaments and biological substances; Z86.14 Personal history of Methicillin resistant Staphylococcus aureus infection; Z95.0 Presence of cardiac pacemaker; Z95.5 Presence of coronary angioplasty implant and graft
CPT/HCPCS: 43239; 45385; 88305; J3010

== ENCOUNTER → 2022-06-24 | Outpatient (REF) | payer MEDICARE, BC, OTHER ==
[~2022-06-24] MED LIST changes: +LEVO1TAB40 PO; -LEVO750T13 PO; -LIDOCAINE 2% 100MG/5ML SDV (FOR ANES.) As Ordered ONE; +PRED5CON PO; -fentaNYL 100 MCG/2 ML INJECTION As Ordered ONE; -propofoL 500 MG/50 ML VIAL As Ordered ONE
[2022-06-24 12:24] LABS: BLOOD UREA NITROGEN 21 MG/DL (7-18); CALCIUM LEVEL 8.9 MG/DL (8.8-10.2); CARBON DIOXIDE LEVEL 29 MEQ/L (21-32); CHLORIDE LEVEL 103 MEQ/L (98-107); CREATININE FOR GFR 1.15 MG/DL (0.70-1.30); GLOMERULAR FILTRATION RATE > 60.0 (>49); GLUCOSE, FASTING 202 MG/DL (70-100); MAGNESIUM LEVEL 2.3 MG/DL (1.8-2.4); POTASSIUM SERUM 3.8 MEQ/L (3.5-5.1); SODIUM LEVEL 137 MEQ/L (136-145)
== END ==
LOC: M LAB REF 11:23
PROVIDERS: ATTEND Physician Assistant
DX: I50.42 Chronic combined systolic (congestive) and diastolic (congestive) heart failure (principal)

== ENCOUNTER → 2022-07-17 | Outpatient (CLI) | payer MEDICARE, BC, OTHER | LOC: M PLAIMG 11:27 | PROVIDERS: ATTEND Internal Medicine Pulmonary Disease | DX: I50.9 Heart failure, unspecified (principal) ==

== ENCOUNTER 2022-08-22 11:04 | Emergency (ER) | payer MEDICARE, BC, OTHER ==
[~2022-08-22] VITALS: Ht 190.5 cm; Wt 172.7 kg
[~2022-08-22 11:04] MED LIST changes: +CLOP75TA99 PO; -DOXY-350 PO; +DOXY-444 PO; -PLAV1TAB2 PO
[2022-08-22] MEDS ORDERED: LIDOCAINE 1% SDV 5ML VIAL DILUENT ONE (13:20)
[2022-08-22] MEDS ORDERED: cefTRIAXone SOD 1GM VIAL (J0696 PER 250MG) IM ONE (13:20)
[2022-08-22] MEDS ORDERED: LIDOCAINE W/EPINEPHRINE 1% 20ML VIAL SC ONE (13:20)
[2022-08-22] MEDS ORDERED: BOOSTRIX/ADACEL VACCINE (DIPHTH/PERTUSS/ACELL/TETANUS) 0.5ML SYR IM ONE (13:20)
[2022-08-22] MEDS ORDERED: CEPH500C PO (14:39)
[2022-08-22 14:44] VITALS: BP 114/61
== END 2022-08-22 14:49 | disposition home or self-care (01) ==
LOC: M ED 11:04
DX: S81.011A Laceration without foreign body, right knee, initial encounter (principal); W01.0XXA Fall on same level from slipping, tripping and stumbling without subsequent striking against object, initial encounter; Y92.009 Unspecified place in unspecified non-institutional (private) residence as the place of occurrence of the external cause; E11.9 Type 2 diabetes mellitus without complications; I25.2 Old myocardial infarction; I25.10 Atherosclerotic heart disease of native coronary artery without angina pectoris; E03.9 Hypothyroidism, unspecified; Z79.01 Long term (current) use of anticoagulants; Z88.8 Allergy status to other drugs, medicaments and biological substances; Z79.899 Other long term (current) drug therapy; Z79.890 Hormone replacement therapy; Z23 Encounter for immunization
CPT/HCPCS: 12034; 90471; 90715; 96372; 99283; J0696

== ENCOUNTER → 2022-08-28 | Outpatient (CLI) | payer MEDICARE, BC, OTHER ==
[~2022-08-28] MED LIST changes: +CEPH500C PO
== END ==
LOC: M PLAIMG 11:07
PROVIDERS: ATTEND Physician Assistant
DX: S81.011A Laceration without foreign body, right knee, initial encounter (principal); W18.30XA Fall on same level, unspecified, initial encounter; Y92.009 Unspecified place in unspecified non-institutional (private) residence as the place of occurrence of the external cause

== ENCOUNTER → 2022-09-09 | Outpatient (CLI) | payer MEDICARE, BC, OTHER | LOC: M PLAIMG 13:23 | PROVIDERS: ATTEND Internal Medicine Pulmonary Disease | DX: J84.10 Pulmonary fibrosis, unspecified (principal) ==

== ENCOUNTER → 2022-09-09 | Outpatient (CLI) | payer MEDICARE, BC, OTHER ==
[2022-09-09 16:31] LABS: RHEUMATOID FACTOR QUANT < 3.5 IU/ML (<14)
[2022-09-15 15:07] LABS: ANCA-ATYPICAL <1:20 titer (Neg:<1:20); ANGIOTENSIN 1 CONVERTING ENZYM 33 U/L (14-82); ANTINUCLEAR ANTIBODIES DIRECT Negative (Negative); ASPERGILLUS FUMIGATUS AB Negative (Negative); AUREOBASIDIUM PULLULANS Negative (Negative); CYCLIC CITRULLINATED PEPTIDE 24 units (0-19); CYTOPLASMIC NEUTROP AB ANCA-C <1:20 titer (Neg:<1:20); MICROPOLYSPORA FAENI AB Negative (Negative); PERINUCLEAR AB ANCA-P <1:20 titer (Neg:<1:20); PIGEON SERUM AB Negative (Negative); SJOGREN'S ANTI SS-A <0.2 AI (0.0-0.9); SJOGREN'S ANTI SS-B <0.2 AI (0.0-0.9); THERMOACTINOMYCES SACCHARI Negative (Negative); THERMOACTINOMYCES VULGARIS Negative (Negative)
== END ==
LOC: M PLALAB 14:12
PROVIDERS: ATTEND Internal Medicine Pulmonary Disease
DX: J84.10 Pulmonary fibrosis, unspecified (principal)

== ENCOUNTER → 2023-01-08 | Outpatient (CLI) | payer MEDICARE, BC, OTHER ==
[~2023-01-08] MED LIST changes: +AMOX500T2 PO; +DIGO0.253 PO; +EASY-106 XX; -ENAL-36 PO; +ENAL1TAB50 PO; +IPRA0.00 INH; +JANU50TA4 PO; +LEVO25TA5 PO; +METO25TA PO; +NITR0.4S14 SL; +POTA10CA33 PO; +PROS5TAB PO; +ROSU20TA5 PO; +TAMS1CAP17 PO
== END ==
LOC: M PLAIMG 11:20
PROVIDERS: ATTEND Internal Medicine Pulmonary Disease
DX: J84.112 Idiopathic pulmonary fibrosis (principal); Z95.0 Presence of cardiac pacemaker; Z95.2 Presence of prosthetic heart valve

== ENCOUNTER 2023-01-19 10:32 | Inpatient (IN) | payer MEDICARE, BC, OTHER ==
[~2023-01-19] VITALS: Ht 190.5 cm; Wt 174.6 kg
[~2023-01-19 10:32] MED LIST changes: -AMOX500T2 PO; -DIGO0.253 PO; -EASY-106 XX; -IPRA0.00 INH; -JANU50TA4 PO; -LEVO25TA5 PO; -METO25TA PO; -NITR0.4S14 SL; -POTA10CA33 PO; -PROS5TAB PO; -ROSU20TA5 PO; -TAMS1CAP17 PO
[2023-01-19 11:10] LABS: BASO # 0.1 10^3/uL (0.0-0.2); BASO % 0.4 % (0.0-1.0); EOS % 5.9 % (0.0-3.0); HEMATOCRIT 43.7 % (42.0-52.0); HEMOGLOBIN 13.5 g/dl (13.5-17.5); LYMPH # 1.9 10^3/uL (1.5-5.0); LYMPH % 11.1 % (24.0-44.0); MEAN CORPUSCULAR HEMOGLOBIN 27.7 pg (27.0-33.0); MEAN CORPUSCULAR HGB CONC 30.9 g/dl (32.0-36.5); MEAN CORPUSCULAR VOLUME 89.5 fl (80.0-96.0); MONO # 1.5 10^3/uL (0.0-0.8); MONO % 8.6 % (2.0-8.0); NEUTROPHILS # 12.6 10^3/uL (1.5-8.5); NEUTROPHILS % 73.1 % (36.0-66.0); PLATELET COUNT, AUTOMATED 228 10^3/uL (150-450); RED BLOOD COUNT 4.88 10^6/uL (4.30-6.10); WHITE BLOOD COUNT 17.2 10^3/uL (4.0-10.0)
[2023-01-19 11:30] LABS: CK-MB VALUE MASS 1.3 NG/ML (<3.6)
[2023-01-19 11:32] LABS: ALBUMIN 3.1 G/DL (3.2-5.2); ALKALINE PHOSPHATASE 122 U/L (46-116); ALT/SGPT 22 U/L (7.0-40); AST/SGOT < 8 U/L (<34); BILIRUBIN,DIRECT 0.4 MG/DL (<0.4); BILIRUBIN,TOTAL 0.8 MG/DL (0.3-1.2); BLOOD UREA NITROGEN 26 MG/DL (9-23); CARBON DIOXIDE LEVEL 27 MMOL/L (20-31); CHLORIDE LEVEL 103 MMOL/L (98-107); CPK CREATINE PHOSPHOKINASE 24 U/L (46-171); CREATININE FOR GFR 1.01 MG/DL (0.70-1.30); GLOMERULAR FILTRATION RATE > 60.0 (>49); GLUCOSE, FASTING 203 MG/DL (74-106); MB/CK RELATIVE INDEX 5.41 (< OR =4); POTASSIUM SERUM 4.4 MMOL/L (3.5-5.1); SODIUM LEVEL 140 MMOL/L (136-145); TOTAL PROTEIN 6.8 G/DL (5.7-8.2)
[2023-01-19] MEDS ORDERED: ISOVUE-370 76% 100ML VIAL As Ordered ONE (13:13)
[2023-01-19] MEDS ORDERED: ELIQ5TAB PO (16:13)
[2023-01-19] MEDS ORDERED: DIGO0.123 PO (16:13)
[2023-01-19] MEDS ORDERED: DIGO0.253 PO (16:13)
[2023-01-19] MEDS ORDERED: CLAR10CA3 PO (16:31)
[2023-01-19] MEDS ORDERED: LEVO25TA5 PO (16:31)
[2023-01-19] MEDS ORDERED: FLON1SPR NARES (16:31)
[2023-01-19] MEDS ORDERED: LEVO200T4 PO (16:31)
[2023-01-19] MEDS ORDERED: NITR0.4S14 SL (16:31)
[2023-01-19] MEDS ORDERED: FURO40TA2 PO (16:31)
[2023-01-19] MEDS ORDERED: METO50TA7 PO (16:31)
[2023-01-19] MEDS ORDERED: PRED20TA PO (16:31)
[2023-01-19] MEDS ORDERED: GABA-282 PO (16:31)
[2023-01-19] MEDS ORDERED: PANT40TA29 PO (16:31)
[2023-01-19] MEDS ORDERED: PROS5TAB PO (16:31)
[2023-01-19] MEDS ORDERED: ROSU20TA5 PO (16:32)
[2023-01-19] MEDS ORDERED: POTA10CA33 PO (16:34)
[2023-01-19] MEDS ORDERED: TAMS1CAP17 PO (16:34)
[2023-01-19] MEDS ORDERED: FUROSEMIDE 40MG/4ML VIAL IV ONE (16:35)
[2023-01-19] MEDS ORDERED: NITROGLYCERIN 0.4MG SUBL TABLET SL PRN (16:35)
[2023-01-19] MEDS ORDERED: PIPERACILLIN/TAZOBACTAM SOD 3.375 GM in D5W MINI-BAG PLUS 50 ML IV SCH (16:35)
[2023-01-19] MEDS ORDERED: AMOX500T2 PO (16:35)
[2023-01-19] MEDS ORDERED: HOME MED LIST COMPLETE! XX SCH (16:40)
[2023-01-19] MEDS: IPRATROPIUM 0.5MG/ALBUTEROL 2.5MG INH SOL UD 3ML (DUONEB) NEB SCH (17:48)
[2023-01-19] MEDS: PIPERACILLIN/TAZOBACTAM SOD 4.5 GM in D5W MINI-BAG PLUS 50 ML IV SCH ×2 (18:23→23:34)
[2023-01-19] MEDS: methylPREDNISolone 125MG 2ML VIAL IV SCH (18:23)
[2023-01-19] MEDS ORDERED: IPRATROPIUM 0.5MG/ALBUTEROL 2.5MG INH SOL UD 3ML (DUONEB) NEB PRN (19:00)
[2023-01-19 19:31] LABS: RSV AMPLIFICATION NEGATIVE (NEGATIVE)
[2023-01-19] MEDS ORDERED: DOXYCYCLINE HYCLATE 100 MG in D5W MINI-BAG PLUS 100 ML IV SCH (21:00)
[2023-01-19 22:00] VITALS: BP 138/84; O2SAT 92
[2023-01-19] MEDS: APIXABAN 5 MG TAB (ELIQUIS) PO SCH (22:15)
[2023-01-19] MEDS: ENTRESTO 24-26MG TABLET (SACUBITRIL/VALSARTAN) PO SCH (22:15)
[2023-01-19] MEDS: ROSUVASTATIN 10 MG TAB (CRESTOR) PO SCH (22:15)
[2023-01-19] MEDS: GABAPENTIN 300 MG CAP PO SCH (22:15)
[2023-01-19] MEDS: LORATADINE 10 MG TAB PO SCH (22:16)
[2023-01-19] MEDS: METOPROLOL TART 50 MG TAB PO SCH (22:16)
[2023-01-19] MEDS: FLUTICASONE PROP 0.05% NASAL SPRAY 16 GM (FLONASE) NARES SCH (22:33)
[2023-01-19 23:00] VITALS: O2SAT 94
[2023-01-20] VITALS (16 sets, daily range): BP systolic 102–121; BP diastolic 52–64; O2SAT 88–96
[2023-01-20] MEDS: IPRATROPIUM 0.5MG/ALBUTEROL 2.5MG INH SOL UD 3ML (DUONEB) NEB SCH ×4 (01:00→19:38)
[2023-01-20] MEDS: methylPREDNISolone 125MG 2ML VIAL IV SCH ×3 (01:01→18:52)
[2023-01-20] MEDS: PIPERACILLIN/TAZOBACTAM SOD 4.5 GM in D5W MINI-BAG PLUS 50 ML IV SCH ×4 (05:25→23:59)
[2023-01-20] MEDS: LEVOTHYROXINE 12.5MCG PER 1/2 TAB (0.0125MG) PO SCH (05:25)
[2023-01-20] MEDS: LEVOTHYROXINE 100MCG TABLET (0.1MG) PO SCH (05:25)
[2023-01-20 06:23] LABS: BASO % 0.2 % (0.0-1.0); HEMATOCRIT 39.9 % (42.0-52.0); HEMOGLOBIN 12.3 g/dl (13.5-17.5); LYMPH # 0.9 10^3/uL (1.5-5.0); LYMPH % 8.2 % (24.0-44.0); MEAN CORPUSCULAR HEMOGLOBIN 27.4 pg (27.0-33.0); MEAN CORPUSCULAR HGB CONC 30.8 g/dl (32.0-36.5); MEAN CORPUSCULAR VOLUME 88.9 fl (80.0-96.0); MONO # 0.1 10^3/uL (0.0-0.8); MONO % 1.2 % (2.0-8.0); NEUTROPHILS # 9.6 10^3/uL (1.5-8.5); NEUTROPHILS % 89.1 % (36.0-66.0); PLATELET COUNT, AUTOMATED 198 10^3/uL (150-450); RED BLOOD COUNT 4.49 10^6/uL (4.30-6.10); WHITE BLOOD COUNT 10.8 10^3/uL (4.0-10.0)
[2023-01-20 06:49] LABS: BLOOD UREA NITROGEN 29 MG/DL (9-23); CALCIUM LEVEL 8.6 MG/DL (8.3-10.6); CARBON DIOXIDE LEVEL 29 MMOL/L (20-31); CHLORIDE LEVEL 102 MMOL/L (98-107); CREATININE FOR GFR 1.06 MG/DL (0.70-1.30); GLOMERULAR FILTRATION RATE > 60.0 (>49); GLUCOSE, FASTING 218 MG/DL (74-106); MAGNESIUM LEVEL 2.3 MG/DL (1.8-2.4); POTASSIUM SERUM 4.4 MMOL/L (3.5-5.1); SODIUM LEVEL 139 MMOL/L (136-145)
[2023-01-20] MEDS ORDERED: PANTOPRAZOLE 40MG VIAL IV SCH (09:00)
[2023-01-20] MEDS: VITAMIN D 1,000 INTERNATIONAL UNITS TABLET PO SCH (09:02)
[2023-01-20] MEDS: DOXYCYCLINE HYCLATE 100MG TABLET PO SCH ×2 (09:02→20:23)
[2023-01-20] MEDS: METOPROLOL TART 50 MG TAB PO SCH ×2 (09:02→20:23)
[2023-01-20] MEDS: APIXABAN 5 MG TAB (ELIQUIS) PO SCH ×2 (09:02→20:24)
[2023-01-20] MEDS: GABAPENTIN 300 MG CAP PO SCH ×2 (09:03→20:24)
[2023-01-20] MEDS: DIGOXIN 0.25 MG TAB PO SCH (09:03)
[2023-01-20] MEDS: TAMSULOSIN 0.4 MG CAP PO SCH (09:03)
[2023-01-20] MEDS: FINASTERIDE 5MG TAB PO SCH (09:03)
[2023-01-20] MEDS: ENTRESTO 24-26MG TABLET (SACUBITRIL/VALSARTAN) PO SCH ×2 (09:03→20:23)
[2023-01-20] MEDS ORDERED: FUROSEMIDE 40MG/4ML VIAL IV ONE (11:00)
[2023-01-20] MEDS: PANTOPRAZOLE 40MG TAB (PROTONIX) PO SCH (11:16)
[2023-01-20] MEDS: DAPAGLIFLOZIN PROPANEDIOL 10MG TABLET (FARXIGA) PO SCH (11:17)
[2023-01-20] MEDS: ROSUVASTATIN 10 MG TAB (CRESTOR) PO SCH (20:24)
[2023-01-20] MEDS: LORATADINE 10 MG TAB PO SCH (20:24)
[2023-01-20] MEDS: FLUTICASONE PROP 0.05% NASAL SPRAY 16 GM (FLONASE) NARES SCH (20:24)
[2023-01-21] VITALS (16 sets, daily range): BP systolic 94–126; BP diastolic 50–57; O2SAT 92–96
[2023-01-21] MEDS: IPRATROPIUM 0.5MG/ALBUTEROL 2.5MG INH SOL UD 3ML (DUONEB) NEB SCH ×4 (01:13→19:25)
[2023-01-21] MEDS: methylPREDNISolone 125MG 2ML VIAL IV SCH ×3 (02:16→18:16)
[2023-01-21 06:06] LABS: BASO % 0.1 % (0.0-1.0); HEMATOCRIT 38.7 % (42.0-52.0); HEMOGLOBIN 12.1 g/dl (13.5-17.5); LYMPH # 0.8 10^3/uL (1.5-5.0); LYMPH % 5.4 % (24.0-44.0); MEAN CORPUSCULAR HEMOGLOBIN 27.9 pg (27.0-33.0); MEAN CORPUSCULAR HGB CONC 31.3 g/dl (32.0-36.5); MEAN CORPUSCULAR VOLUME 89.2 fl (80.0-96.0); MONO # 0.5 10^3/uL (0.0-0.8); MONO % 3.4 % (2.0-8.0); NEUTROPHILS # 13.8 10^3/uL (1.5-8.5); NEUTROPHILS % 90.4 % (36.0-66.0); PLATELET COUNT, AUTOMATED 208 10^3/uL (150-450); RED BLOOD COUNT 4.34 10^6/uL (4.30-6.10); WHITE BLOOD COUNT 15.3 10^3/uL (4.0-10.0)
[2023-01-21] MEDS: PIPERACILLIN/TAZOBACTAM SOD 4.5 GM in D5W MINI-BAG PLUS 50 ML IV SCH ×3 (06:06→18:16)
[2023-01-21] MEDS: LEVOTHYROXINE 100MCG TABLET (0.1MG) PO SCH (06:07)
[2023-01-21] MEDS: LEVOTHYROXINE 12.5MCG PER 1/2 TAB (0.0125MG) PO SCH (06:07)
[2023-01-21 06:29] LABS: BLOOD UREA NITROGEN 38 MG/DL (9-23); CALCIUM LEVEL 9.3 MG/DL (8.3-10.6); CARBON DIOXIDE LEVEL 29 MMOL/L (20-31); CHLORIDE LEVEL 101 MMOL/L (98-107); GLOMERULAR FILTRATION RATE > 60.0 (>49); GLUCOSE, FASTING 280 MG/DL (74-106); MAGNESIUM LEVEL 2.5 MG/DL (1.8-2.4); POTASSIUM SERUM 4.1 MMOL/L (3.5-5.1); SODIUM LEVEL 138 MMOL/L (136-145)
[2023-01-21] MEDS: FINASTERIDE 5MG TAB PO SCH (08:08)
[2023-01-21] MEDS: VITAMIN D 1,000 INTERNATIONAL UNITS TABLET PO SCH (08:08)
[2023-01-21] MEDS: DIGOXIN 0.25 MG TAB PO SCH (08:08)
[2023-01-21] MEDS: PANTOPRAZOLE 40MG TAB (PROTONIX) PO SCH (08:08)
[2023-01-21] MEDS: TAMSULOSIN 0.4 MG CAP PO SCH (08:08)
[2023-01-21] MEDS: ENTRESTO 24-26MG TABLET (SACUBITRIL/VALSARTAN) PO SCH ×2 (08:08→20:34)
[2023-01-21] MEDS: DAPAGLIFLOZIN PROPANEDIOL 10MG TABLET (FARXIGA) PO SCH (08:09)
[2023-01-21] MEDS: APIXABAN 5 MG TAB (ELIQUIS) PO SCH ×2 (08:09→20:35)
[2023-01-21] MEDS: DOXYCYCLINE HYCLATE 100MG TABLET PO SCH ×2 (08:09→20:35)
[2023-01-21] MEDS: GABAPENTIN 300 MG CAP PO SCH ×2 (08:11→20:35)
[2023-01-21 08:59] LABS: HEMOGLOBIN A1c 7.8 % (4.0-6.0)
[2023-01-21] MEDS ORDERED: METOPROLOL SUCC (TopROL XL) 100MG *XL* TAB PO SCH (09:00)
[2023-01-21] MEDS ORDERED: GLUCAGON INJ 1MG VIAL SC PRN (11:10)
[2023-01-21] MEDS ORDERED: GLUCOSE 4GM CHEW TABLET PO PRN (11:10)
[2023-01-21] MEDS ORDERED: DEXTROSE 50% 50ML SYRINGE IV PRN (11:10)
[2023-01-21] MEDS: FUROSEMIDE 40 MG TAB PO SCH (12:48)
[2023-01-21] MEDS: INSULIN LISPRO (NovoLOG) PER UNIT SC SCH ×3 (12:48→20:34)
[2023-01-21] MEDS: LEVEMIR (INSULIN DETEMIR) 1 UNITS/0.01ML SC SCH (12:50)
[2023-01-21] MEDS: LORATADINE 10 MG TAB PO SCH (20:34)
[2023-01-21] MEDS: FLUTICASONE PROP 0.05% NASAL SPRAY 16 GM (FLONASE) NARES SCH (20:35)
[2023-01-21] MEDS: ROSUVASTATIN 10 MG TAB (CRESTOR) PO SCH (20:35)
[2023-01-22] MEDS: PIPERACILLIN/TAZOBACTAM SOD 4.5 GM in D5W MINI-BAG PLUS 50 ML IV SCH ×2 (00:30→06:34)
[2023-01-22] MEDS: IPRATROPIUM 0.5MG/ALBUTEROL 2.5MG INH SOL UD 3ML (DUONEB) NEB SCH ×4 (00:31→19:25)
[2023-01-22] MEDS ORDERED: methylPREDNISolone 125MG 2ML VIAL As Ordered ONE (03:05)
[2023-01-22] MEDS: methylPREDNISolone 125MG 2ML VIAL IV SCH ×3 (03:08→21:53)
[2023-01-22 04:39] VITALS: BP 122/59
[2023-01-22 06:14] LABS: BASO % 0.1 % (0.0-1.0); HEMATOCRIT 39.6 % (42.0-52.0); LYMPH # 0.6 10^3/uL (1.5-5.0); LYMPH % 4.5 % (24.0-44.0); MEAN CORPUSCULAR HEMOGLOBIN 27.5 pg (27.0-33.0); MEAN CORPUSCULAR HGB CONC 30.3 g/dl (32.0-36.5); MEAN CORPUSCULAR VOLUME 90.6 fl (80.0-96.0); MONO # 0.5 10^3/uL (0.0-0.8); MONO % 3.7 % (2.0-8.0); NEUTROPHILS # 12.7 10^3/uL (1.5-8.5); NEUTROPHILS % 90.8 % (36.0-66.0); PLATELET COUNT, AUTOMATED 206 10^3/uL (150-450); RED BLOOD COUNT 4.37 10^6/uL (4.30-6.10)
[2023-01-22 06:34] LABS: BLOOD UREA NITROGEN 41 MG/DL (9-23); CALCIUM LEVEL 8.8 MG/DL (8.3-10.6); CARBON DIOXIDE LEVEL 30 MMOL/L (20-31); CHLORIDE LEVEL 102 MMOL/L (98-107); CREATININE FOR GFR 1.14 MG/DL (0.70-1.30); GLOMERULAR FILTRATION RATE > 60.0 (>49); GLUCOSE, FASTING 265 MG/DL (74-106); MAGNESIUM LEVEL 2.7 MG/DL (1.8-2.4); POTASSIUM SERUM 4.5 MMOL/L (3.5-5.1); SODIUM LEVEL 141 MMOL/L (136-145)
[2023-01-22] MEDS: LEVOTHYROXINE 12.5MCG PER 1/2 TAB (0.0125MG) PO SCH (06:36)
[2023-01-22] MEDS: LEVOTHYROXINE 100MCG TABLET (0.1MG) PO SCH (06:37)
[2023-01-22 08:00] VITALS: BP 116/54
[2023-01-22] MEDS: METOPROLOL TART 50 MG TAB PO SCH ×2 (09:43→20:04)
[2023-01-22] MEDS: GABAPENTIN 300 MG CAP PO SCH ×2 (09:44→20:14)
[2023-01-22] MEDS: PANTOPRAZOLE 40MG TAB (PROTONIX) PO SCH (09:44)
[2023-01-22] MEDS: FUROSEMIDE 40 MG TAB PO SCH (09:44)
[2023-01-22] MEDS: APIXABAN 5 MG TAB (ELIQUIS) PO SCH ×2 (09:44→20:14)
[2023-01-22] MEDS: DIGOXIN 0.25 MG TAB PO SCH (09:45)
[2023-01-22] MEDS: TAMSULOSIN 0.4 MG CAP PO SCH (09:45)
[2023-01-22] MEDS: FINASTERIDE 5MG TAB PO SCH (09:45)
[2023-01-22] MEDS: DAPAGLIFLOZIN PROPANEDIOL 10MG TABLET (FARXIGA) PO SCH (09:45)
[2023-01-22] MEDS: ENTRESTO 24-26MG TABLET (SACUBITRIL/VALSARTAN) PO SCH ×2 (09:45→20:14)
[2023-01-22] MEDS: VITAMIN D 1,000 INTERNATIONAL UNITS TABLET PO SCH (09:46)
[2023-01-22] MEDS: LEVEMIR (INSULIN DETEMIR) 1 UNITS/0.01ML SC SCH (09:46)
[2023-01-22] MEDS: INSULIN LISPRO (NovoLOG) PER UNIT SC SCH ×4 (09:47→20:13)
[2023-01-22] MEDS: LACTOBACILLUS ACIDOPHILUS CAP (BACID) PO SCH ×3 (09:49→17:32)
[2023-01-22] MEDS ORDERED: LEVEMIR (INSULIN DETEMIR) 1 UNITS/0.01ML SC ONE (10:45)
[2023-01-22 11:52] VITALS: BP 131/74
[2023-01-22] MEDS: AUGMENTIN 500MG TAB PO SCH ×2 (12:04→20:14)
[2023-01-22] MEDS ORDERED: INSULIN LISPRO (NovoLOG) PER UNIT SC ONE (13:45)
[2023-01-22 16:00] VITALS: BP 116/49
[2023-01-22 19:53] VITALS: BP 109/55
[2023-01-22] MEDS: ROSUVASTATIN 10 MG TAB (CRESTOR) PO SCH (20:14)
[2023-01-22] MEDS: LORATADINE 10 MG TAB PO SCH (20:14)
[2023-01-22] MEDS: FLUTICASONE PROP 0.05% NASAL SPRAY 16 GM (FLONASE) NARES SCH (20:15)
[2023-01-22 23:53] VITALS: BP 139/70
[2023-01-23] MEDS: IPRATROPIUM 0.5MG/ALBUTEROL 2.5MG INH SOL UD 3ML (DUONEB) NEB SCH ×3 (01:08→13:33)
[2023-01-23 04:20] VITALS: BP 137/63
[2023-01-23 05:42] LABS: BASO % 0.2 % (0.0-1.0); HEMATOCRIT 39.8 % (42.0-52.0); HEMOGLOBIN 12.2 g/dl (13.5-17.5); LYMPH # 0.5 10^3/uL (1.5-5.0); LYMPH % 4.4 % (24.0-44.0); MEAN CORPUSCULAR HEMOGLOBIN 27.7 pg (27.0-33.0); MEAN CORPUSCULAR HGB CONC 30.7 g/dl (32.0-36.5); MEAN CORPUSCULAR VOLUME 90.5 fl (80.0-96.0); MONO # 0.5 10^3/uL (0.0-0.8); MONO % 4.1 % (2.0-8.0); NEUTROPHILS # 10.5 10^3/uL (1.5-8.5); NEUTROPHILS % 90.7 % (36.0-66.0); PLATELET COUNT, AUTOMATED 188 10^3/uL (150-450); WHITE BLOOD COUNT 11.6 10^3/uL (4.0-10.0)
[2023-01-23] MEDS: LEVOTHYROXINE 100MCG TABLET (0.1MG) PO SCH (05:42)
[2023-01-23] MEDS: LEVOTHYROXINE 12.5MCG PER 1/2 TAB (0.0125MG) PO SCH (05:42)
[2023-01-23 06:05] LABS: BLOOD UREA NITROGEN 41 MG/DL (9-23); CALCIUM LEVEL 8.4 MG/DL (8.3-10.6); CARBON DIOXIDE LEVEL 29 MMOL/L (20-31); CHLORIDE LEVEL 103 MMOL/L (98-107); CREATININE FOR GFR 0.95 MG/DL (0.70-1.30); GLOMERULAR FILTRATION RATE > 60.0 (>49); GLUCOSE, FASTING 270 MG/DL (74-106); MAGNESIUM LEVEL 2.6 MG/DL (1.8-2.4); POTASSIUM SERUM 4.3 MMOL/L (3.5-5.1); SODIUM LEVEL 141 MMOL/L (136-145)
[2023-01-23 08:03] VITALS: BP 120/65
[2023-01-23] MEDS: VITAMIN D 1,000 INTERNATIONAL UNITS TABLET PO SCH (08:13)
[2023-01-23] MEDS: INSULIN LISPRO (NovoLOG) PER UNIT SC SCH ×2 (08:13→11:46)
[2023-01-23] MEDS: DAPAGLIFLOZIN PROPANEDIOL 10MG TABLET (FARXIGA) PO SCH (08:13)
[2023-01-23] MEDS: AUGMENTIN 500MG TAB PO SCH (08:13)
[2023-01-23] MEDS: LACTOBACILLUS ACIDOPHILUS CAP (BACID) PO SCH ×2 (08:13→11:51)
[2023-01-23] MEDS: ENTRESTO 24-26MG TABLET (SACUBITRIL/VALSARTAN) PO SCH (08:13)
[2023-01-23] MEDS: TAMSULOSIN 0.4 MG CAP PO SCH (08:13)
[2023-01-23 08:14] VITALS: BP 120/65
[2023-01-23] MEDS: METOPROLOL TART 50 MG TAB PO SCH (08:14)
[2023-01-23] MEDS: PANTOPRAZOLE 40MG TAB (PROTONIX) PO SCH (08:14)
[2023-01-23] MEDS: FINASTERIDE 5MG TAB PO SCH (08:15)
[2023-01-23] MEDS: FUROSEMIDE 40 MG TAB PO SCH (08:15)
[2023-01-23] MEDS: GABAPENTIN 300 MG CAP PO SCH (08:15)
[2023-01-23] MEDS: DIGOXIN 0.25 MG TAB PO SCH (08:15)
[2023-01-23] MEDS: APIXABAN 5 MG TAB (ELIQUIS) PO SCH (08:15)
[2023-01-23] MEDS ORDERED: LEVEMIR (INSULIN DETEMIR) 1 UNITS/0.01ML SC SCH (09:00)
[2023-01-23] MEDS: methylPREDNISolone 125MG 2ML VIAL IV SCH (10:00)
[2023-01-23] MEDS ORDERED: PRED10TA2 PO ×2 (11:03→11:19)
[2023-01-23] MEDS ORDERED: JANU50TA4 PO (11:03)
[2023-01-23] MEDS ORDERED: PRED20TA PO (11:19)
[2023-01-23] MEDS ORDERED: METO25TA PO (11:23)
[2023-01-23] MEDS ORDERED: DOXY100T PO (11:23)
[2023-01-23] MEDS ORDERED: IPRA0.00 INH (11:23)
[2023-01-23] MEDS ORDERED: AUGMENTIN 500MG TAB PO ONE (12:00)
[2023-01-23] MEDS ORDERED: EASY-106 XX (13:57)
== END 2023-01-23 14:37 | disposition home or self-care (01) | DRG 189 ==
LOC: M ED 10:32 → M ED INP 16:59 → M PCU 21:30
PROVIDERS: ADMIT Internal Medicine; ATTEND Student in an Organized Health Care Education/Training Program
PROC: B246ZZZ Ultrasonography of Right and Left Heart (ICD-10-PCS; principal; 2023-01-20)
DX: J96.21 Acute and chronic respiratory failure with hypoxia (principal); J44.1 Chronic obstructive pulmonary disease with (acute) exacerbation; I50.22 Chronic systolic (congestive) heart failure; Z68.42 Body mass index [BMI] 45.0-49.9, adult; J96.22 Acute and chronic respiratory failure with hypercapnia; J84.113 Idiopathic non-specific interstitial pneumonitis; I25.119 Atherosclerotic heart disease of native coronary artery with unspecified angina pectoris; I25.2 Old myocardial infarction; Z95.5 Presence of coronary angioplasty implant and graft; I48.91 Unspecified atrial fibrillation; I73.9 Peripheral vascular disease, unspecified; E78.5 Hyperlipidemia, unspecified; I11.0 Hypertensive heart disease with heart failure; G47.33 Obstructive sleep apnea (adult) (pediatric); E66.9 Obesity, unspecified; K21.9 Gastro-esophageal reflux disease without esophagitis; E55.9 Vitamin D deficiency, unspecified; R73.9 Hyperglycemia, unspecified; J30.9 Allergic rhinitis, unspecified; N40.0 Benign prostatic hyperplasia without lower urinary tract symptoms; E03.9 Hypothyroidism, unspecified; Z99.81 Dependence on supplemental oxygen; Z87.891 Personal history of nicotine dependence; Z79.01 Long term (current) use of anticoagulants; Z98.84 Bariatric surgery status; Z79.890 Hormone replacement therapy; Z79.52 Long term (current) use of systemic steroids; Z79.899 Other long term (current) drug therapy; Z88.8 Allergy status to other drugs, medicaments and biological substances

== ENCOUNTER 2023-02-05 18:13 | Inpatient (IN) | payer MEDICARE, BC, OTHER ==
[~2023-02-05] VITALS: Ht 190.5 cm; Wt 169.8 kg
[~2023-02-05 18:13] MED LIST changes: +AMOX500T2 PO; +DIGO0.253 PO; +EASY-106 XX; +FLON1SPR; +IPRA0.00 INH; +JANU50TA4 PO; +LEVO25TA5 PO; +METO25TA PO; +NITR0.4S14 SL; +POTA10CA33 PO; +PROS5TAB PO; +ROSU20TA5 PO; +TAMS1CAP17 PO
[2023-02-05 19:12] LABS: BASO % 0.2 % (0.0-1.0); EOS % 0.1 % (0.0-3.0); HEMATOCRIT 41.5 % (42.0-52.0); HEMOGLOBIN 13.2 g/dl (13.5-17.5); LYMPH # 1.2 10^3/uL (1.5-5.0); LYMPH % 6.8 % (24.0-44.0); MEAN CORPUSCULAR HEMOGLOBIN 27.9 pg (27.0-33.0); MEAN CORPUSCULAR HGB CONC 31.8 g/dl (32.0-36.5); MEAN CORPUSCULAR VOLUME 87.7 fl (80.0-96.0); MONO # 0.9 10^3/uL (0.0-0.8); NEUTROPHILS # 14.6 10^3/uL (1.5-8.5); NEUTROPHILS % 85.2 % (36.0-66.0); PLATELET COUNT, AUTOMATED 159 10^3/uL (150-450); RED BLOOD COUNT 4.73 10^6/uL (4.30-6.10); WHITE BLOOD COUNT 17.1 10^3/uL (4.0-10.0)
[2023-02-05 19:26] LABS: PROTHROMBIN TIME 13.4 SECONDS (12.5-14.5)
[2023-02-05 19:34] LABS: ALBUMIN 3.4 G/DL (3.2-5.2); ALKALINE PHOSPHATASE 91 U/L (46-116); ALT/SGPT 56 U/L (7.0-40); AST/SGOT 31 U/L (<34); BILIRUBIN,DIRECT 0.5 MG/DL (<0.4); BILIRUBIN,TOTAL 1.1 MG/DL (0.3-1.2); BLOOD UREA NITROGEN 38 MG/DL (9-23); CARBON DIOXIDE LEVEL 27 MMOL/L (20-31); CHLORIDE LEVEL 98 MMOL/L (98-107); CK-MB VALUE MASS < 1.0 NG/ML (<3.6); CREATININE FOR GFR 1.14 MG/DL (0.70-1.30); GLOMERULAR FILTRATION RATE > 60.0 (>49); GLUCOSE, FASTING 257 MG/DL (74-106); POTASSIUM SERUM 4.8 MMOL/L (3.5-5.1); SODIUM LEVEL 137 MMOL/L (136-145)
[2023-02-05 19:37] LABS: CPK CREATINE PHOSPHOKINASE 23 U/L (46-171); MB/CK RELATIVE INDEX 4.34 (< OR =4)
[2023-02-05] MEDS ORDERED: IPRATROPIUM 0.5MG/ALBUTEROL 2.5MG INH SOL UD 3ML (DUONEB) NEB ONE ×2 (20:35)
[2023-02-05] MEDS ORDERED: methylPREDNISolone 125MG 2ML VIAL IV ONE (20:55)
[2023-02-05] MEDS: INSULIN LISPRO (NovoLOG) PER UNIT SC SCH (21:00)
[2023-02-05 21:04] LABS: ABG BASE EXCESS 0.6 (-2.0-2.0); ABG HCO3 24.7 MMOL/L (22.0-26.0); ABG O2 SATURATION 96.9 % (95.0-99.0); ABG PARTIAL PRESSURE CO2 37.8 mmHg (35.0-45.0); ABG PARTIAL PRESSURE O2 95.3 mmHg (75.0-100.0); ABG TOTAL CO2 25.9 MMOL/L (23.0-31.0); ABG pH (ARTERIAL) 7.433 UNITS (7.350-7.450)
[2023-02-05] MEDS ORDERED: NS 1,000 ML IV ONE ×2 (21:35)
[2023-02-05] MEDS ORDERED: GLUCAGON INJ 1MG VIAL SC PRN (22:30)
[2023-02-05] MEDS ORDERED: DEXTROSE 50% 50ML SYRINGE IV PRN (22:30)
[2023-02-05] MEDS ORDERED: GLUCOSE 4GM CHEW TABLET PO PRN (22:30)
[2023-02-05] MEDS ORDERED: ALBU8.5H INH (23:13)
[2023-02-05] MEDS ORDERED: IPRA0.00 INH (23:13)
[2023-02-05] MEDS ORDERED: PRED20TA PO (23:13)
[2023-02-05] MEDS ORDERED: PRED10TA2 PO (23:13)
[2023-02-05] MEDS ORDERED: JANU50TA4 PO (23:13)
[2023-02-05] MEDS ORDERED: HOME MED LIST COMPLETE! XX SCH (23:15)
[2023-02-06] MEDS ORDERED: NITROGLYCERIN 0.4MG SUBL TABLET SL PRN (00:05)
[2023-02-06] MEDS ORDERED: ALBUTEROL 90 MCG/ACT 8GM HFA INHALER INH PRN (00:05)
[2023-02-06] MEDS ORDERED: RAMELTEON 8 MG TAB (ROZEREM) PO PRN (01:35)
[2023-02-06] MEDS: IPRATROPIUM 0.5MG/ALBUTEROL 2.5MG INH SOL UD 3ML (DUONEB) NEB SCH ×4 (01:38→19:14)
[2023-02-06 05:25] LABS: BASO % 0.3 % (0.0-1.0); HEMATOCRIT 37.3 % (42.0-52.0); HEMOGLOBIN 11.9 g/dl (13.5-17.5); LYMPH # 0.5 10^3/uL (1.5-5.0); LYMPH % 3.4 % (24.0-44.0); MEAN CORPUSCULAR HEMOGLOBIN 28.2 pg (27.0-33.0); MEAN CORPUSCULAR HGB CONC 31.9 g/dl (32.0-36.5); MEAN CORPUSCULAR VOLUME 88.4 fl (80.0-96.0); MONO # 0.2 10^3/uL (0.0-0.8); MONO % 1.2 % (2.0-8.0); NEUTROPHILS # 14.3 10^3/uL (1.5-8.5); NEUTROPHILS % 92.5 % (36.0-66.0); PLATELET COUNT, AUTOMATED 133 10^3/uL (150-450); RED BLOOD COUNT 4.22 10^6/uL (4.30-6.10); WHITE BLOOD COUNT 15.5 10^3/uL (4.0-10.0)
[2023-02-06] MEDS: methylPREDNISolone 125MG 2ML VIAL IV SCH ×3 (05:29→22:19)
[2023-02-06] MEDS: LEVOTHYROXINE 100MCG TABLET (0.1MG) PO SCH (05:29)
[2023-02-06] MEDS: LEVOTHYROXINE 12.5MCG PER 1/2 TAB (0.0125MG) PO SCH (05:29)
[2023-02-06 05:53] LABS: BLOOD UREA NITROGEN 37 MG/DL (9-23); CALCIUM LEVEL 8.7 MG/DL (8.3-10.6); CARBON DIOXIDE LEVEL 28 MMOL/L (20-31); CHLORIDE LEVEL 103 MMOL/L (98-107); GLOMERULAR FILTRATION RATE > 60.0 (>49); GLUCOSE, FASTING 279 MG/DL (74-106); MAGNESIUM LEVEL 1.9 MG/DL (1.8-2.4); SODIUM LEVEL 139 MMOL/L (136-145)
[2023-02-06] MEDS: SYMBICORT 160/4.5MCG INHALER 6GM INH SCH ×2 (07:52→19:14)
[2023-02-06 08:00] VITALS: BP 159/70
[2023-02-06] MEDS: INSULIN LISPRO (NovoLOG) PER UNIT SC SCH ×4 (09:13→22:16)
[2023-02-06] MEDS: TAMSULOSIN 0.4 MG CAP PO SCH (09:13)
[2023-02-06] MEDS: GABAPENTIN 300 MG CAP PO SCH ×2 (09:14→22:16)
[2023-02-06] MEDS: POTASSIUM CHLORIDE 10MEQ SR TABLET PO SCH ×2 (09:14→22:18)
[2023-02-06] MEDS: DIGOXIN 0.25 MG TAB PO SCH (09:14)
[2023-02-06] MEDS: APIXABAN 5 MG TAB (ELIQUIS) PO SCH ×2 (09:14→22:17)
[2023-02-06] MEDS: FINASTERIDE 5MG TAB PO SCH (09:14)
[2023-02-06] MEDS: METOPROLOL TART 50 MG TAB PO SCH ×2 (09:16→22:17)
[2023-02-06] MEDS: ENTRESTO 24-26MG TABLET (SACUBITRIL/VALSARTAN) PO SCH ×2 (09:34→22:17)
[2023-02-06] MEDS ORDERED: IPRATROPIUM 0.5MG/ALBUTEROL 2.5MG INH SOL UD 3ML (DUONEB) NEB ONE (11:30)
[2023-02-06] MEDS ORDERED: ISOVUE-370 76% 100ML VIAL As Ordered ONE (11:34)
[2023-02-06 12:00] VITALS: BP 113/59
[2023-02-06] MEDS: guaiFENesin 200 MG TAB PO SCH ×3 (13:00→22:18)
[2023-02-06 16:12] VITALS: BP 142/51
[2023-02-06 16:54] VITALS: O2SAT 94
[2023-02-06 20:30] VITALS: BP 104/54
[2023-02-06] MEDS: ROSUVASTATIN 10 MG TAB (CRESTOR) PO SCH (22:16)
[2023-02-06] MEDS: PANTOPRAZOLE 40MG TAB (PROTONIX) PO SCH (22:17)
[2023-02-06] MEDS: VITAMIN D 1,000 INTERNATIONAL UNITS TABLET PO SCH (22:17)
[2023-02-06] MEDS: LORATADINE 10 MG TAB PO SCH (22:18)
[2023-02-07] MEDS: FLUTICASONE PROP 0.05% NASAL SPRAY 16 GM (FLONASE) SCH ×2 (00:53→21:42)
[2023-02-07] MEDS: guaiFENesin 200 MG TAB PO SCH ×6 (00:53→21:43)
[2023-02-07 02:00] VITALS: BP 120/59
[2023-02-07] MEDS: IPRATROPIUM 0.5MG/ALBUTEROL 2.5MG INH SOL UD 3ML (DUONEB) NEB SCH ×4 (02:14→19:22)
[2023-02-07] MEDS: LEVOTHYROXINE 100MCG TABLET (0.1MG) PO SCH (05:28)
[2023-02-07] MEDS: methylPREDNISolone 125MG 2ML VIAL IV SCH ×3 (05:30→21:42)
[2023-02-07 05:55] VITALS: BP 105/47
[2023-02-07 06:33] LABS: BLOOD UREA NITROGEN 28 MG/DL (9-23); CALCIUM LEVEL 8.5 MG/DL (8.3-10.6); CARBON DIOXIDE LEVEL 28 MMOL/L (20-31); CHLORIDE LEVEL 102 MMOL/L (98-107); CREATININE FOR GFR 0.81 MG/DL (0.70-1.30); GLOMERULAR FILTRATION RATE > 60.0 (>49); GLUCOSE, FASTING 240 MG/DL (74-106); MAGNESIUM LEVEL 2.1 MG/DL (1.8-2.4); POTASSIUM SERUM 4.7 MMOL/L (3.5-5.1); SODIUM LEVEL 137 MMOL/L (136-145)
[2023-02-07] MEDS: SYMBICORT 160/4.5MCG INHALER 6GM INH SCH ×2 (07:41→19:22)
[2023-02-07] MEDS: POTASSIUM CHLORIDE 10MEQ SR TABLET PO SCH ×2 (08:10→21:47)
[2023-02-07] MEDS: APIXABAN 5 MG TAB (ELIQUIS) PO SCH ×2 (08:10→21:45)
[2023-02-07] MEDS: INSULIN LISPRO (NovoLOG) PER UNIT SC SCH ×4 (08:10→21:43)
[2023-02-07] MEDS: GABAPENTIN 300 MG CAP PO SCH ×2 (08:11→21:45)
[2023-02-07] MEDS: LEVOTHYROXINE 12.5MCG PER 1/2 TAB (0.0125MG) PO SCH (08:11)
[2023-02-07] MEDS: TAMSULOSIN 0.4 MG CAP PO SCH (08:11)
[2023-02-07] MEDS: FINASTERIDE 5MG TAB PO SCH (08:11)
[2023-02-07 08:12] LABS: BASO % 0.1 % (0.0-1.0); HEMATOCRIT 35.6 % (42.0-52.0); HEMOGLOBIN 11.4 g/dl (13.5-17.5); LYMPH # 0.9 10^3/uL (1.5-5.0); LYMPH % 5.1 % (24.0-44.0); MEAN CORPUSCULAR HEMOGLOBIN 28.4 pg (27.0-33.0); MEAN CORPUSCULAR VOLUME 88.8 fl (80.0-96.0); MONO # 0.7 10^3/uL (0.0-0.8); MONO % 3.8 % (2.0-8.0); NEUTROPHILS # 15.8 10^3/uL (1.5-8.5); NEUTROPHILS % 89.7 % (36.0-66.0); PLATELET COUNT, AUTOMATED 130 10^3/uL (150-450); RED BLOOD COUNT 4.01 10^6/uL (4.30-6.10); WHITE BLOOD COUNT 17.7 10^3/uL (4.0-10.0)
[2023-02-07] MEDS: ENTRESTO 24-26MG TABLET (SACUBITRIL/VALSARTAN) PO SCH ×2 (08:12→21:43)
[2023-02-07] MEDS: METOPROLOL TART 50 MG TAB PO SCH ×2 (08:12→21:45)
[2023-02-07] MEDS: DIGOXIN 0.25 MG TAB PO SCH (08:13)
[2023-02-07 10:00] VITALS: BP 123/65
[2023-02-07] MEDS: FUROSEMIDE 40 MG TAB PO SCH (12:27)
[2023-02-07 14:00] VITALS: BP 114/55
[2023-02-07] MEDS: NYSTATIN 500,000U/5ML SUSP UDC SS SCH (17:27)
[2023-02-07 18:00] VITALS: BP 160/74
[2023-02-07 21:43] VITALS: BP 133/63
[2023-02-07] MEDS: VITAMIN D 1,000 INTERNATIONAL UNITS TABLET PO SCH (21:44)
[2023-02-07] MEDS: LORATADINE 10 MG TAB PO SCH (21:45)
[2023-02-07] MEDS: PANTOPRAZOLE 40MG TAB (PROTONIX) PO SCH (21:46)
[2023-02-07] MEDS: ROSUVASTATIN 10 MG TAB (CRESTOR) PO SCH (21:47)
[2023-02-08] MEDS: NYSTATIN 500,000U/5ML SUSP UDC SS SCH ×4 (00:05→17:11)
[2023-02-08] MEDS: guaiFENesin 200 MG TAB PO SCH ×6 (00:05→22:05)
[2023-02-08] MEDS: IPRATROPIUM 0.5MG/ALBUTEROL 2.5MG INH SOL UD 3ML (DUONEB) NEB SCH ×4 (01:12→19:37)
[2023-02-08 01:50] VITALS: BP 134/77
[2023-02-08] MEDS: LEVOTHYROXINE 100MCG TABLET (0.1MG) PO SCH (05:23)
[2023-02-08] MEDS: methylPREDNISolone 125MG 2ML VIAL IV SCH (05:23)
[2023-02-08] MEDS: LEVOTHYROXINE 12.5MCG PER 1/2 TAB (0.0125MG) PO SCH (05:23)
[2023-02-08 05:31] VITALS: BP 140/88
[2023-02-08 06:54] LABS: BLOOD UREA NITROGEN 32 MG/DL (9-23); CARBON DIOXIDE LEVEL 30 MMOL/L (20-31); CHLORIDE LEVEL 102 MMOL/L (98-107); CREATININE FOR GFR 0.81 MG/DL (0.70-1.30); GLOMERULAR FILTRATION RATE > 60.0 (>49); GLUCOSE, FASTING 273 MG/DL (74-106); MAGNESIUM LEVEL 2.3 MG/DL (1.8-2.4); POTASSIUM SERUM 4.6 MMOL/L (3.5-5.1); SODIUM LEVEL 138 MMOL/L (136-145)
[2023-02-08] MEDS: SYMBICORT 160/4.5MCG INHALER 6GM INH SCH ×2 (07:13→19:36)
[2023-02-08] MEDS: INSULIN LISPRO (NovoLOG) PER UNIT SC SCH ×4 (08:18→22:03)
[2023-02-08] MEDS: APIXABAN 5 MG TAB (ELIQUIS) PO SCH ×2 (08:19→22:06)
[2023-02-08] MEDS: GABAPENTIN 300 MG CAP PO SCH ×2 (08:19→22:03)
[2023-02-08] MEDS: TAMSULOSIN 0.4 MG CAP PO SCH (08:20)
[2023-02-08] MEDS: FINASTERIDE 5MG TAB PO SCH (08:20)
[2023-02-08] MEDS: FUROSEMIDE 40 MG TAB PO SCH (08:20)
[2023-02-08] MEDS: POTASSIUM CHLORIDE 10MEQ SR TABLET PO SCH ×2 (08:20→22:05)
[2023-02-08] MEDS: ENTRESTO 24-26MG TABLET (SACUBITRIL/VALSARTAN) PO SCH ×2 (08:25→22:06)
[2023-02-08] MEDS: METOPROLOL TART 50 MG TAB PO SCH ×2 (08:25→22:10)
[2023-02-08] MEDS: DIGOXIN 0.25 MG TAB PO SCH (08:25)
[2023-02-08] MEDS: predniSONE 20 MG TAB PO SCH (08:55)
[2023-02-08 10:00] VITALS: BP 123/58
[2023-02-08 14:00] VITALS: BP 128/62
[2023-02-08 18:00] VITALS: BP 167/77
[2023-02-08 19:47] VITALS: BP 109/63
[2023-02-08] MEDS: VITAMIN D 1,000 INTERNATIONAL UNITS TABLET PO SCH (22:05)
[2023-02-08] MEDS: ROSUVASTATIN 10 MG TAB (CRESTOR) PO SCH (22:06)
[2023-02-08] MEDS: PANTOPRAZOLE 40MG TAB (PROTONIX) PO SCH (22:07)
[2023-02-08] MEDS: LORATADINE 10 MG TAB PO SCH (22:07)
[2023-02-08] MEDS: FLUTICASONE PROP 0.05% NASAL SPRAY 16 GM (FLONASE) SCH (22:11)
[2023-02-09] VITALS (9 sets, daily range): BP systolic 116–142; BP diastolic 56–86; O2SAT 95–96
[2023-02-09] MEDS: guaiFENesin 200 MG TAB PO SCH ×6 (00:01→22:09)
[2023-02-09] MEDS: NYSTATIN 500,000U/5ML SUSP UDC SS SCH ×5 (00:01→23:35)
[2023-02-09] MEDS: IPRATROPIUM 0.5MG/ALBUTEROL 2.5MG INH SOL UD 3ML (DUONEB) NEB SCH ×4 (02:18→19:16)
[2023-02-09] MEDS: LEVOTHYROXINE 12.5MCG PER 1/2 TAB (0.0125MG) PO SCH (05:40)
[2023-02-09] MEDS: LEVOTHYROXINE 100MCG TABLET (0.1MG) PO SCH (05:40)
[2023-02-09 06:59] LABS: BLOOD UREA NITROGEN 35 MG/DL (9-23); CALCIUM LEVEL 8.2 MG/DL (8.3-10.6); CARBON DIOXIDE LEVEL 32 MMOL/L (20-31); CHLORIDE LEVEL 102 MMOL/L (98-107); CREATININE FOR GFR 0.82 MG/DL (0.70-1.30); GLOMERULAR FILTRATION RATE > 60.0 (>49); GLUCOSE, FASTING 197 MG/DL (74-106); MAGNESIUM LEVEL 2.4 MG/DL (1.8-2.4); POTASSIUM SERUM 4.3 MMOL/L (3.5-5.1); SODIUM LEVEL 139 MMOL/L (136-145)
[2023-02-09] MEDS: SYMBICORT 160/4.5MCG INHALER 6GM INH SCH ×2 (07:16→19:15)
[2023-02-09] MEDS: FUROSEMIDE 40 MG TAB PO SCH (08:13)
[2023-02-09] MEDS: TAMSULOSIN 0.4 MG CAP PO SCH (08:14)
[2023-02-09] MEDS: METOPROLOL TART 50 MG TAB PO SCH ×2 (08:14→22:00)
[2023-02-09] MEDS: FINASTERIDE 5MG TAB PO SCH (08:14)
[2023-02-09] MEDS: ENTRESTO 24-26MG TABLET (SACUBITRIL/VALSARTAN) PO SCH ×2 (08:14→22:09)
[2023-02-09] MEDS: POTASSIUM CHLORIDE 10MEQ SR TABLET PO SCH ×2 (08:14→22:01)
[2023-02-09] MEDS: GABAPENTIN 300 MG CAP PO SCH ×2 (08:14→22:01)
[2023-02-09] MEDS: predniSONE 20 MG TAB PO SCH (08:14)
[2023-02-09] MEDS: APIXABAN 5 MG TAB (ELIQUIS) PO SCH ×2 (08:14→21:59)
[2023-02-09] MEDS: INSULIN LISPRO (NovoLOG) PER UNIT SC SCH ×4 (08:15→22:00)
[2023-02-09] MEDS: DIGOXIN 0.25 MG TAB PO SCH (08:15)
[2023-02-09] MEDS: LACTOBACILLUS ACIDOPHILUS CAP (BACID) PO SCH (13:47)
[2023-02-09] MEDS ORDERED: PREPARATION H OINTMENT (HEMORRHOID) PR PRN (20:25)
[2023-02-09] MEDS: PANTOPRAZOLE 40MG TAB (PROTONIX) PO SCH (21:59)
[2023-02-09] MEDS: LORATADINE 10 MG TAB PO SCH (22:00)
[2023-02-09] MEDS: VITAMIN D 1,000 INTERNATIONAL UNITS TABLET PO SCH (22:01)
[2023-02-09] MEDS: ROSUVASTATIN 10 MG TAB (CRESTOR) PO SCH (22:01)
[2023-02-09] MEDS: FLUTICASONE PROP 0.05% NASAL SPRAY 16 GM (FLONASE) SCH (22:02)
[2023-02-10] MEDS: guaiFENesin 200 MG TAB PO SCH ×7 (00:52→23:27)
[2023-02-10] MEDS: IPRATROPIUM 0.5MG/ALBUTEROL 2.5MG INH SOL UD 3ML (DUONEB) NEB SCH ×4 (01:21→19:03)
[2023-02-10 02:00] VITALS: BP 127/67
[2023-02-10] MEDS: NYSTATIN 500,000U/5ML SUSP UDC SS SCH ×4 (05:23→23:27)
[2023-02-10] MEDS: LEVOTHYROXINE 100MCG TABLET (0.1MG) PO SCH (05:23)
[2023-02-10] MEDS: LEVOTHYROXINE 12.5MCG PER 1/2 TAB (0.0125MG) PO SCH (05:23)
[2023-02-10 06:00] VITALS: BP 116/71
[2023-02-10 06:11] LABS: BASO % 0.1 % (0.0-1.0); EOS # 0.1 10^3/uL (0.0-0.5); EOS % 0.3 % (0.0-3.0); HEMATOCRIT 36.4 % (42.0-52.0); HEMOGLOBIN 11.4 g/dl (13.5-17.5); LYMPH # 1.5 10^3/uL (1.5-5.0); LYMPH % 10.4 % (24.0-44.0); MEAN CORPUSCULAR HEMOGLOBIN 28.1 pg (27.0-33.0); MEAN CORPUSCULAR HGB CONC 31.3 g/dl (32.0-36.5); MEAN CORPUSCULAR VOLUME 89.7 fl (80.0-96.0); MONO % 6.8 % (2.0-8.0); NEUTROPHILS # 11.6 10^3/uL (1.5-8.5); NEUTROPHILS % 80.9 % (36.0-66.0); PLATELET COUNT, AUTOMATED 104 10^3/uL (150-450); RED BLOOD COUNT 4.06 10^6/uL (4.30-6.10); WHITE BLOOD COUNT 14.4 10^3/uL (4.0-10.0)
[2023-02-10 06:38] LABS: BLOOD UREA NITROGEN 35 MG/DL (9-23); CALCIUM LEVEL 7.9 MG/DL (8.3-10.6); CARBON DIOXIDE LEVEL 29 MMOL/L (20-31); CHLORIDE LEVEL 104 MMOL/L (98-107); CREATININE FOR GFR 0.87 MG/DL (0.70-1.30); GLOMERULAR FILTRATION RATE > 60.0 (>49); GLUCOSE, FASTING 121 MG/DL (74-106); MAGNESIUM LEVEL 2.3 MG/DL (1.8-2.4); POTASSIUM SERUM 3.9 MMOL/L (3.5-5.1); SODIUM LEVEL 139 MMOL/L (136-145)
[2023-02-10] MEDS: SYMBICORT 160/4.5MCG INHALER 6GM INH SCH ×2 (07:10→19:02)
[2023-02-10] MEDS: GABAPENTIN 300 MG CAP PO SCH ×2 (09:00→21:05)
[2023-02-10 09:01] VITALS: BP 116/71
[2023-02-10] MEDS: METOPROLOL TART 50 MG TAB PO SCH ×2 (09:01→21:06)
[2023-02-10] MEDS: LACTOBACILLUS ACIDOPHILUS CAP (BACID) PO SCH (09:01)
[2023-02-10] MEDS: FUROSEMIDE 40 MG TAB PO SCH (09:02)
[2023-02-10] MEDS: predniSONE 20 MG TAB PO SCH (09:02)
[2023-02-10] MEDS: POTASSIUM CHLORIDE 10MEQ SR TABLET PO SCH ×2 (09:02→21:05)
[2023-02-10] MEDS: FINASTERIDE 5MG TAB PO SCH (09:02)
[2023-02-10] MEDS: TAMSULOSIN 0.4 MG CAP PO SCH (09:02)
[2023-02-10] MEDS: INSULIN LISPRO (NovoLOG) PER UNIT SC SCH ×4 (09:02→21:05)
[2023-02-10] MEDS: APIXABAN 5 MG TAB (ELIQUIS) PO SCH ×2 (09:03→21:05)
[2023-02-10] MEDS: ENTRESTO 24-26MG TABLET (SACUBITRIL/VALSARTAN) PO SCH ×2 (09:03→21:04)
[2023-02-10] MEDS: DIGOXIN 0.25 MG TAB PO SCH (09:03)
[2023-02-10 14:00] VITALS: BP 134/74
[2023-02-10] MEDS: VITAMIN D 1,000 INTERNATIONAL UNITS TABLET PO SCH (21:04)
[2023-02-10] MEDS: LORATADINE 10 MG TAB PO SCH (21:05)
[2023-02-10] MEDS: PANTOPRAZOLE 40MG TAB (PROTONIX) PO SCH (21:05)
[2023-02-10] MEDS: ROSUVASTATIN 10 MG TAB (CRESTOR) PO SCH (21:05)
[2023-02-10] MEDS: FLUTICASONE PROP 0.05% NASAL SPRAY 16 GM (FLONASE) SCH (21:07)
[2023-02-10 22:00] VITALS: BP 116/56
[2023-02-11] MEDS: IPRATROPIUM 0.5MG/ALBUTEROL 2.5MG INH SOL UD 3ML (DUONEB) NEB SCH ×3 (01:13→13:30)
[2023-02-11 02:00] VITALS: BP 116/61
[2023-02-11 06:00] VITALS: BP 165/78
[2023-02-11] MEDS: NYSTATIN 500,000U/5ML SUSP UDC SS SCH ×2 (06:24→12:55)
[2023-02-11] MEDS: LEVOTHYROXINE 12.5MCG PER 1/2 TAB (0.0125MG) PO SCH (06:24)
[2023-02-11] MEDS: guaiFENesin 200 MG TAB PO SCH ×3 (06:24→12:55)
[2023-02-11] MEDS: LEVOTHYROXINE 100MCG TABLET (0.1MG) PO SCH (06:24)
[2023-02-11 06:37] LABS: ALBUMIN 2.7 G/DL (3.2-5.2); ALKALINE PHOSPHATASE 73 U/L (46-116); ALT/SGPT 58 U/L (7.0-40); AST/SGOT 18 U/L (<34); BILIRUBIN,TOTAL 1.1 MG/DL (0.3-1.2); BLOOD UREA NITROGEN 30 MG/DL (9-23); CALCIUM LEVEL 7.9 MG/DL (8.3-10.6); CARBON DIOXIDE LEVEL 30 MMOL/L (20-31); CHLORIDE LEVEL 103 MMOL/L (98-107); CREATININE FOR GFR 0.87 MG/DL (0.70-1.30); GLOMERULAR FILTRATION RATE > 60.0 (>49); GLUCOSE, FASTING 120 MG/DL (74-106); MAGNESIUM LEVEL 2.2 MG/DL (1.8-2.4); POTASSIUM SERUM 3.8 MMOL/L (3.5-5.1); SODIUM LEVEL 140 MMOL/L (136-145); TOTAL PROTEIN 4.8 G/DL (5.7-8.2)
[2023-02-11] MEDS: INSULIN LISPRO (NovoLOG) PER UNIT SC SCH ×2 (07:30→12:55)
[2023-02-11 07:47] LABS: BASO % 0.2 % (0.0-1.0); EOS # 0.2 10^3/uL (0.0-0.5); EOS % 1.7 % (0.0-3.0); HEMATOCRIT 33.9 % (42.0-52.0); HEMOGLOBIN 10.9 g/dl (13.5-17.5); LYMPH # 1.2 10^3/uL (1.5-5.0); LYMPH % 9.5 % (24.0-44.0); MEAN CORPUSCULAR HEMOGLOBIN 28.6 pg (27.0-33.0); MEAN CORPUSCULAR HGB CONC 32.2 g/dl (32.0-36.5); MONO # 0.8 10^3/uL (0.0-0.8); MONO % 6.1 % (2.0-8.0); NEUTROPHILS # 10.3 10^3/uL (1.5-8.5); NEUTROPHILS % 80.8 % (36.0-66.0); PLATELET COUNT, AUTOMATED 103 10^3/uL (150-450); RED BLOOD COUNT 3.81 10^6/uL (4.30-6.10); WHITE BLOOD COUNT 12.7 10^3/uL (4.0-10.0)
[2023-02-11] MEDS: GABAPENTIN 300 MG CAP PO SCH (09:06)
[2023-02-11] MEDS: LACTOBACILLUS ACIDOPHILUS CAP (BACID) PO SCH (09:06)
[2023-02-11] MEDS: FINASTERIDE 5MG TAB PO SCH (09:06)
[2023-02-11] MEDS: ENTRESTO 24-26MG TABLET (SACUBITRIL/VALSARTAN) PO SCH (09:06)
[2023-02-11] MEDS: DIGOXIN 0.25 MG TAB PO SCH (09:07)
[2023-02-11] MEDS: TAMSULOSIN 0.4 MG CAP PO SCH (09:07)
[2023-02-11] MEDS: predniSONE 20 MG TAB PO SCH (09:07)
[2023-02-11] MEDS: FUROSEMIDE 40 MG TAB PO SCH (09:07)
[2023-02-11] MEDS: APIXABAN 5 MG TAB (ELIQUIS) PO SCH (09:07)
[2023-02-11] MEDS: METOPROLOL TART 50 MG TAB PO SCH (09:07)
[2023-02-11] MEDS: POTASSIUM CHLORIDE 10MEQ SR TABLET PO SCH (09:08)
[2023-02-11] MEDS: SYMBICORT 160/4.5MCG INHALER 6GM INH SCH (09:38)
[2023-02-11 10:00] VITALS: BP 108/68
[2023-02-11] MEDS ORDERED: PRED10TA2 PO (10:06)
[2023-02-11] MEDS ORDERED: RISATAB3 PO (10:06)
[2023-02-11 14:00] VITALS: BP 82/48
[2023-02-11 15:18] VITALS: BP 90/50
[2023-02-11 15:57] VITALS: BP 104/66
== END 2023-02-11 16:25 | disposition home or self-care (01) | DRG 196 ==
LOC: M ED 18:13 → M ED INP 22:27 → ENRESERV 02-06 13:56 → M MSPAV 02-06 15:59
PROVIDERS: ADMIT Internal Medicine; ATTEND Family Medicine
DX: J84.10 Pulmonary fibrosis, unspecified (principal); J96.21 Acute and chronic respiratory failure with hypoxia; I50.32 Chronic diastolic (congestive) heart failure; E87.20 Acidosis, unspecified; Z68.42 Body mass index [BMI] 45.0-49.9, adult; J44.9 Chronic obstructive pulmonary disease, unspecified; I25.10 Atherosclerotic heart disease of native coronary artery without angina pectoris; I25.2 Old myocardial infarction; I48.91 Unspecified atrial fibrillation; G47.33 Obstructive sleep apnea (adult) (pediatric); I11.0 Hypertensive heart disease with heart failure; I73.9 Peripheral vascular disease, unspecified; E78.5 Hyperlipidemia, unspecified; E66.01 Morbid (severe) obesity due to excess calories; E11.42 Type 2 diabetes mellitus with diabetic polyneuropathy; K21.9 Gastro-esophageal reflux disease without esophagitis; N40.0 Benign prostatic hyperplasia without lower urinary tract symptoms; E03.9 Hypothyroidism, unspecified; J30.9 Allergic rhinitis, unspecified; E86.0 Dehydration; E55.9 Vitamin D deficiency, unspecified; E11.65 Type 2 diabetes mellitus with hyperglycemia; Z99.81 Dependence on supplemental oxygen; Z79.01 Long term (current) use of anticoagulants; Z79.890 Hormone replacement therapy; Z79.52 Long term (current) use of systemic steroids; Z79.84 Long term (current) use of oral hypoglycemic drugs; Z79.899 Other long term (current) drug therapy; Z88.8 Allergy status to other drugs, medicaments and biological substances; D50.9 Iron deficiency anemia, unspecified; Z95.810 Presence of automatic (implantable) cardiac defibrillator; Z98.84 Bariatric surgery status; Z95.5 Presence of coronary angioplasty implant and graft; Z87.891 Personal history of nicotine dependence

== ENCOUNTER → 2023-05-27 | Outpatient (CLI) | payer MEDICARE, BC, OTHER ==
[~2023-05-27] MED LIST changes: +ALBU8.5H INH; +FINA-48 PO; -POTA10CA33 PO; +POTA10CA60 PO; -PROS5TAB PO; +RISATAB3 PO; -ROSU20TA5 PO; +ROSU20TA61 PO
[2023-05-27 13:52] LABS: BASO # 0.1 10^3/uL (0.0-0.2); BASO % 0.6 % (0.0-1.0); EOS # 0.4 10^3/uL (0.0-0.5); EOS % 2.5 % (0.0-3.0); HEMOGLOBIN 13.2 g/dl (13.5-17.5); LYMPH # 2.6 10^3/uL (1.5-5.0); LYMPH % 17.1 % (24.0-44.0); MEAN CORPUSCULAR HEMOGLOBIN 27.9 pg (27.0-33.0); MEAN CORPUSCULAR HGB CONC 30.7 g/dl (32.0-36.5); MEAN CORPUSCULAR VOLUME 90.9 fl (80.0-96.0); MONO # 1.2 10^3/uL (0.0-0.8); MONO % 7.8 % (2.0-8.0); NEUTROPHILS # 10.8 10^3/uL (1.5-8.5); NEUTROPHILS % 70.2 % (36.0-66.0); PLATELET COUNT, AUTOMATED 203 10^3/uL (150-450); RED BLOOD COUNT 4.73 10^6/uL (4.30-6.10); WHITE BLOOD COUNT 15.4 10^3/uL (4.0-10.0)
[2023-05-27 14:04] LABS: HEMOGLOBIN A1c 7.7 % (4.0-6.0)
[2023-05-27 14:09] LABS: ALBUMIN 3.4 G/DL (3.2-5.2); ALKALINE PHOSPHATASE 93 U/L (46-116); ALT/SGPT 34 U/L (7.0-40); AST/SGOT 15 U/L (<34); BILIRUBIN,TOTAL 0.9 MG/DL (0.3-1.2); BLOOD UREA NITROGEN 23 MG/DL (9-23); CALCIUM LEVEL 8.8 MG/DL (8.3-10.6); CARBON DIOXIDE LEVEL 29 MMOL/L (20-31); CHLORIDE LEVEL 102 MMOL/L (98-107); CHOLESTEROL LEVEL 103 MG/DL (<200); CHOLESTEROL RISK RATIO 2.66 (<5); CREATININE FOR GFR 0.96 MG/DL (0.70-1.30); GLOMERULAR FILTRATION RATE > 60.0 (>42); GLUCOSE, FASTING 203 MG/DL (74-106); HDL CHOLESTEROL 38.6 MG/DL (>40); LDL CHOLESTEROL 30.6 MG/DL (<100); NON-HDL-C 64.4 MG/DL; POTASSIUM SERUM 4.1 MMOL/L (3.5-5.1); SODIUM LEVEL 140 MMOL/L (136-145); THYROID STIMULATING HORMONE 1.252 uIU/ML (0.55-4.78); TOTAL PROTEIN 6.4 G/DL (5.7-8.2); TRIGLYCERIDES LEVEL 169 MG/DL (<150)
== END ==
LOC: M PLALAB 10:25
PROVIDERS: ATTEND Internal Medicine
DX: E11.9 Type 2 diabetes mellitus without complications (principal); E03.9 Hypothyroidism, unspecified; E78.5 Hyperlipidemia, unspecified